=== PATIENT | female | born 1940 | race Caucasian/White ===

== ENCOUNTER 2024-03-09 10:06 | Outpatient (OUT) | payer MEDICARE, SELFPAY ==
--- NOTE | 2024-03-09 10:32 | PM.CN ---
Consult Note: HPI Data of Consult Patient: new to practice Requesting Physician: Symone Bales NP Primary Care Provider: RICHIE RAMOS DO Family Provider: RICHIE RAMOS DO Consult Narrative Reason for consult: establish Narrative: Danielle Palmer a pleasant 83 year old female presents for evaluation and management of chronic low back pain. Reports increased pain started two years ago without injury. Patient reports moderate to severe low back pain with radiating pain into left foot. Pain increased with standing, walking, transitioning. Pain improved with lying and sitting. Has failed to benefit from >6 weeks of PT/HEP, tylenol, heat, ice. failed duloxetine. utilizing baclofen, requip, and tylenol with mild relief. denies falls or injury. cc:: CC: Symone Bales NP Review of Systems ROS Status of ROS 10 or more systems reviewed and unremarkable except as noted in history and below Musculoskeletal Reports: back pain and extremity pain Exam Constitutional Documenting provider has reviewed patient's vital signs: yes Common normals: no apparent distress, oriented x3, healthy appearing, alert and well nourished General appearance: cooperative HENMT Common normals: normocephalic, hearing grossly normal bilaterally and moist oral mucous membranes Head and scalp: normocephalic Eye Common normals: PERRL Pupil: PERRL Neck & C-Spine Common normals: full ROM General: normal visual inspection Chest Common normals: inspection of chest normal Respiratory Common normals: normal respiratory effort, no retractions and no use of accessory muscles Back & Pelvis Lumbar spine/lower back: ROM limited, pain with ROM, lumbar spinal tenderness and straight leg raise positive right Other: multilevel facet mediated pain, positive facet loading. pt limited in ability to extend strength 4/5 in RLE 5/5 in LLE decreased sensation to right L4,5,S1 increased pain upon standing and with walking, significant immediate relief with forward flexion sitting and lying Neuro Common normals: oriented x3, CN's II-XII intact bilaterally, moves all extremities, no focal motor deficits, no sensory deficits noted and deep tendon reflexes 2+ bilaterally Sensorium/orientation: alert Motor exam: no movement abnormalities noted Psych Common normals: mental status grossly normal, thought process normal, cooperative, affect normal, speech normal and activity/motor behavior normal Speech: normal speech Thought process: normal thought process Results Additional Findings Additional findings: If on a controlled substance or opioids, I have checked an [facility] report on this patient and there are no aberrancies noted in the prescribing history.??If on a controlled substance or opioid a drug screen was completed and reviewed within the last year, and if there has not been a drug screen completed we ordered one today to monitor higher risk, state monitored pain medication use. As part of providing excellent, safe, comprehensive care, the following was completed at our patient's visit: 1. A medication reconciliation and review to ensure accurate knowledge of current/active medications, including asking our patients to inform us about any [id number] medications or herbal remedies/nutritional supplements/alternative remedies. 2. A review to specifically ensure our patients have had annual screening for screening for depression, screening for tobacco use, and screening for unhealthy alcohol use. For concerning screenings had a discussion with the patient, provided patient education, and recommended follow-up with primary care provider when appropriate. If patient noted with a risk of falling, they received education on strength, gait, and balance training to prevent future risk of falling. Portions of this note may have been carried over from the previous visit and updated as appropriate. Please note this office utilizes paper charting in addition to the electronic medical record. A list of current medications, vitals, and PMH is available there as the clinical staff outside of myself do not have access to [employer] charting during the clinic day operations. As part of providing quality comprehensive care the current medications, vitals, and PMH were reviewed in the paper chart. Assessment and Plan Assessment and Plan (1) Lumbar stenosis with neurogenic claudication: (2) Lumbar degenerative disc disease: Plan right L4,5 L5,S1 TFESI under fluoroscopy for lumbar stenosis with NC and lumbar DDD continue HEP as tolerated continue current medications through PCP f/u 2 weeks after injection
== END 2024-03-09 10:07 | disposition home or self-care (01) ==
PROVIDERS: Family Provider Internal Medicine; PCP Internal Medicine; Visit Provider Nurse Practitioner
DX: M48.062 Spinal stenosis, lumbar region with neurogenic claudication (principal); M51.369 Other intervertebral disc degeneration, lumbar region without mention of lumbar back pain or lower extremity pain
CPT/HCPCS: G0463

== ENCOUNTER 2024-03-20 09:56 | Day surgery (SDC) | payer MEDICARE, SELFPAY ==
--- OUTSIDE RECORDS SUMMARY | 2024-03-20 10:04 | XMS_ITS | CCD ---
Author Organization [facility] Care Team Providers Care [employer] Name Role Phone Molina Ramos Primary Care Provider [phone] KRISTINA LOMAX Referring Unavailable VALONE, MOLINA L Primary Care Unavailable LISETH, ACOSTA I Admitting Unavailable LISETH, ACOSTA I Attending Unavailable VALONE, MOLINA Winslow Primary Care Unavailable AHMED, MOHAMMED S Consulting Unavailable AHMED, MOHAMMED S Admitting Unavailable AHMED, MOHAMMED S Attending Unavailable ValMolina urias DO Primary Care Provider Molina Ramos DO Primary Care Provider Molina Ramos DO Primary Care Provider [phone] Sujataone Molina FLORES Primary Care Provider VALONE, MOLINA L Primary Care Unavailable VALONE, MOLINA L Referring Unavailable VALONE, MOLINA L Primary Care Unavailable VALONE, MOLINA L Referring Unavailable VALONE, MOLINA L Primary Care Unavailable VALONE, MOLINA L Referring Unavailable VALONE, MOLINA L Primary Care Unavailable VALONE, MOLINA Goldy Referring Unavailable VALONE, MOLINA Goldy Primary Care Unavailable VALONE, MOLINA L Referring Unavailable SHABNAM BAXTER Attending Unavailable VALONE, MOLINA L Primary Care Unavailable VALONE, MOLINA L Primary Care Unavailable AHMALAISSA Castellanos Referring Unavailable VALONE, MOLINA L Primary Care Unavailable VALONE, MOLINA L Referring Unavailable VALONE, MOLINA L Primary Care Unavailable VALONE, MOLINA L Referring Unavailable VALONE, MOLINA L Primary Care Unavailable VALONE, MOLINA L Referring Unavailable VALONE, MOLINA L Primary Care Unavailable VALONE, MOLINA L Referring Unavailable VALONE, MOLINA L Primary Care Unavailable VALONE, MOLINA L Referring Unavailable VALONE, MOLINA L Primary Care Unavailable VALONE, MOLINA L Referring Unavailable VALONE, MOLINA L Primary Care Unavailable VALONE, MOLINA L Referring Unavailable VALONE, MOLINA L Primary Care Unavailable VALONE, OMLINA L Referring Unavailable VALONE, MOLINA L Primary Care Unavailable VALONE, MOLINA L Referring Unavailable VALONE, MOLINA L Primary Care Unavailable VALONE, MOLINA L Referring Unavailable VALONE, MOLINA L Primary Care Unavailable VALONE, MOLINA L Referring Unavailable VALONE, MOLINA L Primary Care Unavailable VALONE, MOLINA L Referring Unavailable VALONE, MOLINA L Primary Care Unavailable VALONE, MOLINA L Referring Unavailable VALONE, MOLINA L Primary Care Unavailable VALONE, MOLINA L Referring Unavailable VALONE, MOLINA L Primary Care Unavailable VALONE, MOLINA L Referring Unavailable VALONE, MOLINA L Primary Care Unavailable AHMAD, ALI F O Referring Unavailable VALONE, MOLINA L Primary Care Unavailable AHMAD, ALI F O Referring Unavailable VALONE, MOLINA L Primary Care Unavailable VALONE, MOLINA L Referring Unavailable VALONE, MOLINA L Primary Care Unavailable VALONE, MOLINA L Referring Unavailable VALONE, MOLINA L Primary Care Unavailable AHMAD, ALI F O Referring Unavailable AHMAD, ALI F O Consulting Unavailable IACVICTOR M KIM Attending Unavailable VICTOR M [place] Admitting Unavailable VALONE, MOLINA L Primary Care Unavailable MARIA INES IGLESIAS Attending Unavailable VALONE, MOLINA L Primary Care Unavailable VALONE, MOLINA L Primary Care Unavailable SHARATH GARCIA Referring Unavailable VALONE, MOLINA L Primary Care Unavailable VALONE, MOLINA L Referring Unavailable Allergies Allergy Classification Reported Allergen(s) Allergy Type Date of Onset Reaction(s) Facility Opioid Agonists (3 sources) Morphine Drug Allergy 06-05-2012 [facility] (20 sources) Morphine Drug Allergy 06-05-2012 [facility] Work Phone: Medications Current Medications Medication Drug Class(es) Dates Sig (Normalized) Sig (Original) amLODIPine 5 mg oral tablet (20 sources) Dihydropyridine Calcium Channel Parminder Start: 04-20-2020 amLODIPine (NORVASC) tablet 5 mg Start: 04-20-2020 take 1 tablet by ivory th once daily amLODIPine (NORVASC) 5 MG tablet Take 1 tablet by mouth daily 30 tablet 3 04/20/2020 Active Start: 04-18-2020 amLODIPine (NO RVASC) tablet 5 mg aspirin 81 mg chewable tablet (20 sources) Platelet Aggregation Inhibitor, Nonsteroidal Anti-inflammatory Drug Start: 10-05-2021 aspirin chewable tablet 81 mg Start: 09-03-2020 take 81 mg by mouth once daily 81 mg, Oral, DAILY, First dose on Wed09/03/20 at 0900 Start: 04-17-2020 aspirin chewab le tablet 324 mg take 1 tablet by mouth once naga y aspirin 81 MG tablet Take 1 tablet by mouth daily Active atorvastatin 40 mg oral tablet (20 sources) HMG-CoA Reductase Inhibitor Start: 04-17-2020 End: 04-18-2020 take 80 mg by mouth once daily 80 mg, Oral, NIGHTLY, First dose on Wed04/17/20 at 2100 Start: 04-17-2020 take 1 tablet by ivory th once daily atorvastatin (LIPITOR) 40 MG tablet Take 1 tablet by mouth daily 30 tablet 3 04/19/2020 Active baclofen 10 mg oral tablet (20 sources) gamma-Aminobutyric Acid-ergic Agonist take 1 tablet by mouth once daily baclofen (LIORESAL) 10 MG tablet Take 1 tablet by mouth nightly Active take 1 tablet by mouth three reno es daily baclofen (LIORESAL) 10 MG tablet Take 10 mg by mouth 3 times daily 0 Active 24 hr buPROPion hydrochloride 300 mg extended release oral tablet (1 source) Aminoketone take 1 tablet by mouth once daily in the morning buPROPion (WELLBUTRIN XL) 300 MG extended release tablet Take 1 tablet by mouth every morning 0 Active busPIRone hydrochloride 15 mg oral tablet (20 sources) Start: 09-02-2020 take 1 tablet by mouth twice daily 15 mg, Oral, 2 TIMES DAILY, First dose on Wed09/02/20 at 2000 This 15 mg tablet can be split into thirds (5 mg) or halves (7.5 mg) based on the ordered dose. take 1 tablet by mouth twice graham ly busPIRone (BUSPAR) 10 MG tablet Take 10 mg by mouth 2 times daily 0 Active calcium carbonate 1500 mg oral tablet (9 sources) take 1 tablet by mouth once daily calcium carbonate 600 MG TABS tablet Take 1 tablet by mouth daily 0 Active 12 hr cetirizine hydrochloride 5 mg / pseudoephedrine hydrochloride 120 mg extended release oral tablet (15 sources) alpha-Adrenergic Agonist, Histamine-1 Receptor Antagonist take 5-120 mg by mouth once cetirizine-psued oephedrine (ZYRTEC-D) 5-120 MG per extended release tablet Take 1 tablet by mouth daily Active DULoxetine 60 mg delayed release oral capsule (1 source) Serotonin and Norepinephrine Reuptake Inhibitor Start: take 1 capsule by mouth once daily DULoxetine (CYMBALTA) 60 MG extended release capsule Take 1 capsule by mouth nightly 0 02/15/2023 Active 0.4 ml enoxaparin sodium 100 mg/ml prefilled syringe (1 source) Low Molecular Weight Heparin Start: inject 40 mg by subcutaneous injection once daily 40 mg, Subcutaneous, DAILY, First dose on Wed04/17/20 at 2100 gabapentin 100 mg oral capsule (10 sources) Anti-epileptic Agent Start: take 100 mg by mouth once daily 100 mg, Oral, NIGHTLY, First dose on Wed09/02/20 at 2100 gabapentin (NEUR ONTIN) 400 MG capsule Take 100 mg by mouth nightly. 0 Active take 1 capsule by mouth once graham ly gabapentin (NEURONTIN) 400 MG capsule Take 400 mg by mouth nightly. 0 Active labetalol hydrochloride 5 mg/ml injectable solution (2 sources) beta-Adrenergic Parminder Start: 09-02-2020 10 mg, Intravenous, EVERY 4 HOURS PRN, High Blood Pressure, Give for SBP >185, Starting on Wed09/02/20 at 1408 Administer 10 mg IV every 10 minutes if SBP is 220 mmHg or greater OR DBP is 120 mmHg or greater. Notify provider if SBP is 220 mmHg or greater OR DBP is 120 mmHg or greater after 3 consecutive doses. Start: 04-17-2020 10 mg, Intrave nous, EVERY 10 MIN PRN, High Blood Pressure, Starting Wed04/17/20 at 2035 Administer 10 mg IV every 10 minutes if SBP is 220 mmHg or greater OR DBP is 120 mmHg or greater. Notify provider if SBP is 220 mmHg or greater OR DBP is 120 mmHg or greater after 3 consecutive doses. losartan potassium 50 mg oral tablet (8 sources) Angiotensin 2 Receptor Parminder Start: 09-02-2020 take 50 mg by mouth twice daily 50 mg, Oral, 2 TIMES DAILY, First dose on Wed09/02/20 at 1430 Start: 04-20-2020 End: 09-04-2020 take 1 tablet by mouth once daily losartan (COZAAR) 25 MG tablet Take 1 tablet by mouth daily 30 tablet 3 04/20/2020 09/04/2020 Discontinued (Stop Taking at Discharge) Start: 04-20-2020 take 1 tablet by ivory once daily losartan (COZAAR) 25 MG tablet Take 1 tablet by mouth daily 30 tablet 3 04/20/2020 Active Start: 04-19-2020 losartan (COZA AR) tablet 25 mg melatonin 3 mg oral tablet (12 sources) take 1 tablet by mouth once daily melatonin 3 MG TABS tablet Take 3 mg by mouth daily 0 Active metFORMIN hydrochloride 500 mg oral tablet (20 sources) Biguanide take 1 tablet by mouth once daily metFORMIN (GLUCOPHAGE) 500 MG tablet Take 1 tablet by mouth nightly Active montelukast 10 mg oral tablet (20 sources) Leukotriene Receptor Antagonist Start: take 1 tablet by mouth once daily at bedtime montelukast (SINGULAIR) 10 MG tablet Take 1 tablet by mouth nightly at bedtime 03/23/2023 Active take 1 tablet by ivory th once daily montelukast (SINGULAIR) 10 MG tablet Take 10 mg by mouth nightly 0 Active End: 05-08-2020 Montelukast Sodium (SINGULAI R PO) Take by mouth 0 05/08/2020 Discontinued (Therapy completed) Montelukast Sodi um (SINGULAIR PO) Take by mouth 0 Active Multiple Vitamin (MULTI-VITAMIN DAILY PO) (1 source) Multiple Vitamin (MULTI-VITAMIN DAILY PO) Take by mouth 0 Active Multiple Vitamins-Minerals (EYE VITAMINS PO) (6 sources) take 1 capsule by mouth once daily Multiple Vitamins-Minerals (EYE VITAMINS PO) Take 1 capsule by mouth nightly 0 Active NONFORMULARY (16 sources) NONFORMULARY All red Eye Vitamin daily Active NONFORMULARY All red Eye Vitamin daily 0 Active ondansetron (ZOFRAN-ODT) disintegrating tablet 4 mg (1 source) Start: 09-02-2020 ondansetron (Z OFRAN-ODT) disintegrating tablet 4 mg polyethylene glycol [id number] mg powder for oral solution (2 sources) Osmotic Laxative Start: 09-02-2020 17 g, Oral, D AILY PRN, Constipation, Starting on Wed09/02/20 at 1408 First line therapy for constipation Start: 04-17-2020 17 g, Oral, DA DEBBIE PRN, Constipation, Starting Wed04/17/20 at 2035 First line therapy for constipation 1 ml promethazine hydrochloride 25 mg/ml injection (20 sources) Phenothiazine Start: 09-02-2020 promethazine ( PHENERGAN) injection 12.5 mg Start: 06-02-2020 End: 06-02-2020 promethazine (PHENERGAN) inj ection 12.5 mg Start: 06-02-2020 take 0.5-1 tablets b y mouth three times daily as needed for nausea promethazine (PHENERGAN) 25 MG tablet Half to 1 pill by mouth 3 times daily as needed nausea/vomiting 21 tablet 0 06/02/2020 Active Start: 04-17-2020 promethazine ( PHENERGAN) tablet 12.5 mg rOPINIRole 0.5 mg oral tablet (15 sources) Nonergot Dopamine Agonist take 1 tablet by mouth once daily rOPINIRole (REQUIP) 0.5 MG tablet Take 1 tablet by mouth daily Active spironolactone 25 mg oral tablet (15 sources) Aldosterone Antagonist Start: 08-13-19 take 2 tablets by mouth once daily spironolactone (ALDACTONE) 25 MG tablet Take 2 tablets by mouth daily 08/13/2023 Active vitamin b12 0.5 mg oral tablet (14 sources) Vitamin B12 Cyanocobalamin (VITAMIN B 12) 500 MCG TABS Take by mouth 0 Active End: 05-08-2020 Cyanocobalamin (VITAMIN B-12 PO) Take by mouth 0 05/08/2020 Discontinued (Therapy completed) Cyanocobalamin ( VITAMIN B-12 PO) Take by mouth 0 Active vitamin e d-alpha 400 unt oral capsule (20 sources) take 1 capsule by mo ut once daily vitamin E 400 UNIT capsule Take 400 Units by mouth daily 0 Active Completed/Discontinued Medications Medication Drug Class(es) Dates Sig (Normalized) Sig (Original) acetaminophen 500 mg oral tablet (4 sources) Start: 09-04-2020 End: 09-04-2020 acetaminophen (TYLENOL) tablet 1,000 mg Start: 09-03-2020 End: 09-03-2020 acetaminophen (TYLENOL) tabl et 1,000 mg Start: 09-02-2020 End: 09-02-2020 acetaminophen (TYLENOL) tabl et 325 mg Start: 04-17-2020 acetaminophen (TYLENOL) tablet 650 mg acetaminophen 325 mg / HYDROcodone bitartrate 5 mg oral tablet (2 sources) Opioid Agonist Start: 01-21-2024 End: 01-21-2024 take 1 tablet by mouth every twenty-four hours 2 tablet, Oral, ONCE, 1 dose, On Wed01/21/24 at 1545, Maximum dose of acetaminophen is 4000 mg from all sources in 24 hours. Start: 01-21-2024 End: 01-24-2024 HYDROcodone-acetaminophen (N ORCO) 5-325 MG per tablet Indications: Strain of lumbar region, initial encounter Take 1 tablet by mouth every 6 hours as needed for Pain for up to 3 days. Intended supply: 3 days. Take lowest dose possible to manage pain Max Daily Amount: 4 tablets 12 tablet 01/21/2024 01/24/2024 Active Budesonide (2 sources) Corticosteroid End: 05-08-2020 Budesonide (PULMICORT IN) In lopez into the lungs 0 05/08/2020 Discontinued (Therapy completed) Budesonide (PULM ICORT IN) Inhale into the lungs 0 Active ceFAZolin 1000 mg injection (1 source) Cephalosporin Antibacterial Start: 09-02-2020 End: 09-02-2020 ceFAZolin (ANCEF) 1000 mg in dextrose 5 % 50 mL IVPB (premix) clopidogrel 75 mg oral tablet (10 sources) P2Y12 Platelet Inhibitor Start: 09-02-2020 End: 09-02-2020 clopidogrel (PLAVIX) tablet 150 mg Start: 04-17-2020 clopidogrel (P LAVIX) tablet 300 mg Start: 04-17-2020 End: 09-04-2020 take 1 tablet by mouth once daily clopidogrel (PLAVIX) 75 MG tablet Take 1 tablet by mouth daily For 28 days. 28 tablet 0 04/17/2020 09/04/2020 Discontinued (Stop Taking at Discharge) 2 ml fentaNYL 0.05 mg/ml injection (1 source) Opioid Agonist Start: 09-02-2020 End: 09-02-2020 fentaNYL (SUBLIMAZE) injection 1000 ml glucose 500 mg/ml injection (1 source) Start: 04-17-2020 End: 04-17-2020 dextrose 50 % IV solution Start: 04-17-2020 End: 04-17-2020 dextrose 50 % IV solution 1 ml heparin sodium, porcine 5000 unt/ml prefilled syringe (1 source) Unfractionated Heparin, Anti-coagulant Start: 09-02-2020 End: 07-26-2021 heparin (porcine) injection iodixanol (VISIPAQUE) injection 64 mL (1 source) Start: 09-02-2020 End: 09-02-2020 iodixanol (VISIPAQUE) injection 64 mL iopamidol (ISOVUE-370) 76 % injection 75 mL (2 sources) Start: 10-05-2021 End: 10-05-2021 iopamidol (ISOVUE-370) 76 % injection 75 mL Start: 04-17-2020 End: 04-17-2020 iopamidol (ISOVUE-370) 76 % injection 75 mL iopamidol (ISOVUE-370) 76 % injection 90 mL (1 source) Start: 09-02-2020 End: 09-02-2020 iopamidol (ISOVUE-370) 76 % injection 90 mL lactulose 667 mg/ml oral solution (20 sources) Osmotic Laxative Start: 09-02-2020 End: 09-03-2020 10 g, Oral, 2 TIMES DAILY, First dose on Wed09/02/20 at 1500 take 1 dose by mouth twice daily lactulose (CEPHULAC) 10 g packet Take 1 packet by mouth 2 times daily Active 100 ml levETIRAcetam 10 mg/ml injection (1 source) Start: 09-02-2020 End: 09-02-2020 levETIRAcetam (KEPPRA) 1000 mg/100 mL IVPB lysine 1000 mg oral tablet (2 sources) End: 05-08-2020 take 1 tablet by mouth once daily L-Lysine 1000 MG TABS Take 1,000 mg by mouth daily 0 05/08/2020 Discontinued (Therapy completed) 2 ml midazolam 1 mg/ml injection (1 source) Benzodiazepine Start: 09-02-2020 End: 09-02-2020 midazolam PF (VERSED) injection Misc Natural Products (OSTEO BI-FLEX/5-LOXIN ADVANCED PO) (3 sources) End: 06-02-2020 take 1 tablet by mouth once daily Misc Natural Products (OSTEO BI-FLEX/5-LOXIN ADVANCED PO) Take 1 tablet by mouth daily 0 06/02/2020 Discontinued (LIST CLEANUP) take 1 tablet by mouth once naga y Misc Natural Products (OSTEO BI-FLEX/5-LOXIN ADVANCED PO) Take 1 tablet by mouth daily 0 Active Misc Natural Pro ducts (OSTEO BI-FLEX/5-LOXIN ADVANCED PO) Take by mouth 0 Active nitrofurantoin, macrocrystals 25 mg / nitrofurantoin, monohydrate 75 mg oral capsule (3 sources) Nitrofuran Antibacterial Start: 10-05-2021 End: 10-12-2021 nitrofurantoin (macrocrystal-monohydrate) (MACROBID) capsule 100 mg 2 ml ondansetron 2 mg/ml injection (2 sources) Serotonin-3 Receptor Antagonist Start: 09-02-2020 End: 09-02-2020 ondansetron (ZOFRAN) injecti on Start: 06-02-2020 End: 06-02-2020 ondansetron (ZOFRAN) injecti on 4 mg potassium chloride 8 meq oral tablet (3 sources) End: 06-02-2020 potassium chloride (KLOR-CON) 8 MEQ extended release tablet Take 99 mEq by mouth daily 0 06/02/2020 Discontinued (LIST CLEANUP) potassium,chelated 95 mg oral tablet (2 sources) End: 05-08-2020 take 1 tablet by mouth once daily Potassium 95 MG TABS Take 1 tablet by mouth daily 0 05/08/2020 Discontinued (Therapy completed) 50 ml sodium chloride 9 mg/ml injection (11 sources) Start: 09-03-2020 End: 09-04-2020 0.9 % sodium chloride bolus Start: 09-02-2020 sodium chlorid e flush 0.9 % injection 5-40 mL Start: 09-02-2020 End: 09-03-2020 take 1 dose intravenously twice daily 5-40 mL, Intravenous, EVERY 12 HOURS SCHEDULED (2 times per day), First dose on Wed09/02/20 at 2100 For Line Patency: Peripheral IV = 5 mL; Midline or Central Line = 10 mL/lumen. If following IV push medication, administer flush at same rate as the IV push. Flush volume is determined by type of infusion therapy being given. For non-viscous solutions use: Peripheral IV = 5 mL Midline or Central Line = 10 mL/lumen For viscous solutions (i.e. blood components, parenteral nutrition, contrast media, or after obtaining blood sample) use: Peripheral IV = 10 mL Midline or Central Line = 20 mL/lumen Start: 09-02-2020 take 5-40 mL intrave nously once as needed 5-40 mL, Intravenous, PRN, Line Care, After every IV line use, Starting on Wed09/02/20 at 1408 For Line Patency: Peripheral IV = 5 mL; Midline or Central Line = 10 mL/lumen. If following IV push medication, administer flush at same rate as the IV push. Flush volume is determined by type of infusion therapy being given. For non-viscous solutions use: Peripheral IV = 5 mL Midline or Central Line = 10 mL/lumen For viscous solutions (i.e. blood components, parenteral nutrition, contrast media, or after obtaining blood sample) use: Peripheral IV = 10 mL Midline or Central Line = 20 mL/lumen Start: 09-02-2020 take 25 mL intraveno usly every hour as needed 25 mL, Intravenous, at 100 mL/hr, PRN, If patient receiving piggyback infusions without ordered maintenance IV fluids or with frequent/long duration piggyback infusions, Starting on Wed09/02/20 at 1408 Administer at the same rate as the piggyback being infused. Start: 09-02-2020 End: 09-02-2020 0.9 % sodium chloride infusi on Start: 06-02-2020 End: 06-02-2020 0.9 % sodium chloride bolus Start: 04-17-2020 10 mL, Intrave nous, EVERY 12 HOURS SCHEDULED (2 times per day), First dose on Wed04/17/20 at 2100 Start: 04-17-2020 take 10 mL intraveno us route once as needed 10 mL, Intravenous, PRN, Line Care, After every IV line use, Starting Wed04/17/20 at 2035 topiramate 25 mg oral tablet (1 source) End: 04-17-2020 take 1 tablet by mouth twice daily topiramate (TOPAMAX) 25 MG tablet Take 25 mg by mouth 2 times daily 0 04/17/2020 Discontinued (LIST CLEANUP) Problems Active Problems Problem Classification Problem Date Documented Date Episodic/Chronic Cardiac dysrhythmias (16 sources) Paroxysmal supraventricular tachycardia; Translations: [PSVT (paroxysmal supraventricular tachycardia)] Onset: 04-04-2023 04-04-2023 Chronic Congestive heart failure; nonhypertensive (4 sources) Unspecified combined systolic (congestive) and diastolic (congestive) heart failure; Translations: [Chronic combined systolic (congestive) and diastolic (congestive) heart failure] Onset: 06-03-2023 Chronic Coronary atherosclerosis and other heart disease (17 sources) Angina, class IV; Translations: [Angina pectoris, unspecified] Onset: 04-04-2023 04-04-2023 Chronic Diabetes mellitus without complication (16 sources) Type 2 diabetes mellitus; Translations: [Type 2 diabetes mellitus without complications] Onset: 04-04-2023 04-04-2023 Chronic Disorders of lipid metabolism (2 sources) Mixed hyperlipidemia; Translations: [Mixed hyperlipidemia] Onset: 05-06-2023 Chronic Essential hypertension (20 sources) Essential hypertension; Translations: [Hypertensive disorder] Onset: 04-04-2023 04-04-2023 Chronic Fluid and electrolyte disorders (1 source) Dehydration; Translations: [Dehydration] Episodic Headache; including migraine (1 source) Headache disorder; Translations: [Other complicated headache syndrome] Episodic Nausea and vomiting (1 source) Nausea, vomiting and diarrhea; Translations: [Nausea with vomiting, unspecified] Episodic Other and ill-defined cerebrovascular disease (5 sources) Cerebral aneurysm, nonruptured; Translations: [Aneurysm of anterior communicating artery] Onset: 09-16-2020 04-20-2020 Chronic Other and ill-defined cerebrovascular disease (20 sources) Intracranial aneurysm; Translations: [Cerebral aneurysm, nonruptured] Chronic Other bone disease and musculoskeletal deformities (1 source) Somatic dysfunction of lumbar region; Translations: [Segmental and somatic dysfunction of lumbar region] 02-16-2024 Episodic Other bone disease and musculoskeletal deformities (1 source) Segmental and somatic dysfunction of lumbar region; Translations: [Segmental and somatic dysfunction of lumbar region] Onset: 02-16-2024 Episodic Other circulatory disease (1 source) Elevated blood pressure; Translations: [Elevated blood-pressure reading, without diagnosis of hypertension] Episodic Other connective tissue disease (1 source) Swelling of left lower limb; Translations: [Other specified soft tissue disorders] Episodic Other nervous system disorders (20 sources) Disorder of brain; Translations: [Encephalopathy, unspecified] 09-05-2020 Chronic Other nervous system disorders (1 source) Encephalopathy, unspecified; Translations: [Encephalopathy, unspecified] Onset: 09-05-2020 Chronic Other nervous system disorders (1 source) Dysarthria; Translations: [Dysarthria and anarthria] Episodic Residual codes; unclassified (20 sources) Medication given; Translations: [Status post administration of tPA (rtPA) in a different facility within the last 24 hours prior to admission to current facility] Chronic Residual codes; unclassified (1 source) Status post administration of tPA (rtPA) in a different facility within the last 24 hours prior to admission to current facility; Translations: [Status post administration of tPA (rtPA) in a different facility within the last 24 hours prior to admission to current facility] Onset: 09-02-2020 Chronic Residual codes; unclassified (20 sources) Altered mental status; Translations: [Altered mental status, unspecified] Episodic Residual codes; unclassified (2 sources) Pain; Translations: [Pain, unspecified] Episodic Residual codes; unclassified (2 sources) Swelling; Translations: [Edema, unspecified] Episodic Spondylosis; intervertebral disc disorders; other back problems (4 sources) Lumbar radiculopathy; Translations: [Radiculopathy, lumbar region] Onset: 12-20-2023 02-16-2024 Episodic Sprains and strains (2 sources) Low back strain; Translations: [Strain of muscle, fascia and tendon of lower back, initial encounter] Onset: 01-21-2024 01-21-2024 Episodic Transient cerebral ischemia (20 sources) Transient cerebral ischemia; Translations: [Transient cerebral ischemic attack, unspecified] Onset: 04-17-2020 04-17-2020 Chronic Unclassified (1 source) Supraventricular tachycardia, unspecified; Translations: [Supraventricular tachycardia, unspecified] Onset: 04-04-2023 Urinary tract infections (1 source) Acute cystitis; Translations: [Acute cystitis without hematuria] Episodic Past or Other Problems Problem Classification Problem Date Documented Da te Episodic/Chronic Cataract (20 sources) Age-related nuclear cataract of right eye; Translations: [Age-related nuclear cataract, right eye] Onset: 12-20-2017 Resolved: 12-20-2017 12-20-2017 Chronic Cataract (2 sources) Age-related nuclear cataract of right eye; Translations: [Age-related nuclear cataract of right eye] Onset: 12-20-2017 Resolved: 12-20-2017 12-20-2017 Conditions associated with dizziness or vertigo (2 sources) Dizziness and giddiness; Translations: [Dizziness and giddiness] Onset: 05-06-2023 Episodic Diabetes mellitus without complication (2 sources) Other abnormal glucose; Translations: [Other abnormal glucose] Onset: 10-22-2023 Episodic Nonspecific chest pain (17 sources) Chest wall pain; Translations: [Other chest pain] Onset: 04-04-2023 04-04-2023 Episodic Other aftercare (2 sources) Other continuous churn buttermaker (current) drug therapy; Translations: [Other fpc (current) drug therapy] Onset: 10-22-2023 Episodic Other circulatory disease (16 sources) History of transient ischemic attack; Translations: [Personal history of transient ischemic attack (TIA), and cerebral infarction without residual deficits] Onset: 04-04-2023 04-04-2023 Episodic Other circulatory disease (1 source) Personal history of transient ischemic attack (TIA), and cerebral infarction without residual deficits; Translations: [Personal history of transient ischemic attack (TIA), and cerebral infarction without residual deficits] Onset: 04-04-2023 Episodic Other connective tissue disease (20 sources) Neurological symptom; Translations: [Unspecified symptoms and signs involving the nervous system] Onset: 09-02-2020 Episodic Other connective tissue disease (2 sources) Myalgia, unspecified site; Translations: [Myalgia, unspecified site] Onset: 10-22-2023 Episodic Other connective tissue disease (1 source) Other specified soft tissue disorders; Translations: [Other specified soft tissue disorders] Onset: 05-14-2023 Episodic Other connective tissue disease (1 source) Unspecified symptoms and signs involving the nervous system; Translations: [Unspecified symptoms and signs involving the nervous system] Onset: 09-02-2020 Episodic Other nervous system disorders (2 sources) Other abnormalities of gait and mobility; Translations: [Other abnormalities of gait and mobility] Onset: 05-06-2023 Episodic Other screening for suspected conditions (not mental disorders or infectious disease) (2 sources) Patient encounter status; Translations: [Encounter for screening mammogram for malignant neoplasm of breast] Onset: 06-09-2023 Episodic Phlebitis; thrombophlebitis and thromboembolism (2 sources) Personal history of other venous thrombosis and embolism; Translations: [Personal history of other venous thrombosis and embolism] Onset: 10-22-2023 Episodic Residual codes; unclassified (2 sources) Edema, unspecified; Translations: [Edema, unspecified] Onset: 10-22-2023 Episodic Residual codes; unclassified (2 sources) Personal history of other specified conditions; Translations: [Personal history of other specified conditions] Onset: 05-06-2023 Episodic Unclassified (20 sources) Onset: 01-26-2018 Resolved: 03-03-2021 01-26-2018 Results Test Name Value Interpretation Reference Range Facility CT LUMBAR SPINE WO CONTRASTo n 02-17-2024 CT LUMBAR SPINE WO CONTRAST EXAMINATION: CT OF THE LUMBAR SPINE WITHOUT CONTRAST 02/16/2024 TECHNIQUE: CT of the lumbar spine was performed without the administration of intravenous contrast. Multiplanar reformatted images are provided for review. Adjustment of mA and/or kV according to patient size was utilized. Automated exposure control, iterative reconstruction, and/or weight based adjustment of the mA/kV was utilized to reduce the radiation dose to as low as reasonably achievable. COMPARISON: L-spine series 01/21/2024 HISTORY: ORDERING SYSTEM PROVIDED HISTORY: Somatic dysfunction of lumbar region FINDINGS: Vertebrae: Diffuse osteopenia. L5 superior endplate fracture with 20% height loss, mildly progressed since radiographs 01/21/2024. Alignment: No significant listhesis. Disc levels: Disc height loss at T12-L1 and L1-L2 with vacuum disc phenomenon.. Multilevel facet arthrosis most pronounced at L4-L5 and L5-S1. No significant osseous neuroforaminal stenosis. Imaged abdomen/pelvis: Unremarkable. IMPRESSION: 1. Interval mild progression of L5 superior endplate fracture with 20% height loss. 2. Multilevel lumbar spondylosis. Interpreted by: Holden Simon MD Signed by: Holden Simon MD 02/17/24 Final result Normal [facility] CT Lumbar spine WO contrasto n 02-17-2024 EXAMINATION: CT OF THE LUMBAR SPINE WITHOUT CONTRAST 02/16/2024 TECHNIQUE: CT of the lumbar spine was performed without the administration of intravenous contrast. Multiplanar reformatted images are provided for review. Adjustment of mA and/or kV according to patient size was utilized. Automated exposure control, iterative reconstruction, and/or weight based adjustment of the mA/kV was utilized to reduce the radiation dose to as low as reasonably achievable. COMPARISON: L-spine series 01/21/2024 HISTORY: ORDERING SYSTEM PROVIDED HISTORY: Somatic dysfunction of lumbar region FINDINGS: Vertebrae: Diffuse osteopenia. L5 superior endplate fracture with 20% height loss, mildly progressed since radiographs 01/21/2024. Alignment: No significant listhesis. Disc levels: Disc height loss at T12-L1 and L1-L2 with vacuum disc phenomenon.. Multilevel facet arthrosis most pronounced at L4-L5 and L5-S1. No significant osseous neuroforaminal stenosis. Imaged abdomen/pelvis: Unremarkable. [facility] Holden Mathis MD - 02/17/2024 EXAMINATION: CT OF THE LUMBAR SPINE WITHOUT CONTRAST 02/16/2024 TECHNIQUE: CT of the lumbar spine was performed without the administration of intravenous contrast. Multiplanar reformatted images are provided for review. Adjustment of mA and/or kV according to patient size was utilized. Automated exposure control, iterative reconstruction, and/or weight based adjustment of the mA/kV was utilized to reduce the radiation dose to as low as reasonably achievable. COMPARISON: L-spine series 01/21/2024 HISTORY: ORDERING SYSTEM PROVIDED HISTORY: Somatic dysfunction of lumbar region FINDINGS: Vertebrae: Diffuse osteopenia. L5 superior endplate fracture with 20% height loss, mildly progressed since radiographs 01/21/2024. Alignment: No significant listhesis. Disc levels: Disc height loss at T12-L1 and L1-L2 with vacuum disc phenomenon.. Multilevel facet arthrosis most pronounced at L4-L5 and L5-S1. No significant osseous neuroforaminal stenosis. Imaged abdomen/pelvis: Unremarkable. IMPRESSION: 1. Interval mild progression of L5 superior endplate fracture with 20% height loss. 2. Multilevel lumbar spondylosis. [facility] CT Lumbar spine WO contrastO rdered By: Holden Simon on 02-17-[address] [facility] [address] Lumbar spine WO contrasto n 02-16-2024 Radiology Study observation (narrative) [facility] Microscopic Urinalysison Bacteria LM Ql (Urine sed) TRACE Abnormal None [facility] Epithelial cells LM.HPF (Urine sed) [#/Area] 2 TO 5 [facility] Interpretation and review of laboratory results Abnormal [facility] RBC LM.HPF (Urine sed) [#/Area] 0 TO 2 [facility] WBC LM.HPF (Urine sed) [#/Area] 2 TO 5 [facility] UA w/Reflex Cultureon 2023 Bilirubin, SemiQt,Ur Negative Normal NEG [facility] Comment on above: Performed By: #### U AX, UMICAO #### [facility] [address] [place] [address] Dr[place] [id number] Cotton Feeder: Sharath Dennis MD Blood, Urine Negative Normal NEG [facility] Comment on above: Performed By: #### U AX, UMICAO #### [address] [place] [id number] Cotton Feeder: Sharath Dennis MD Clarity (U) Clear Normal CLEAR [facility] Comment on above: Performed By: #### U AX, UMICAO #### [address] [place] [id number] Cotton Feeder: Sharath Dennis MD Color (U) Yellow Normal YEL [facility] Comment on above: Performed By: #### U AX, UMICAO #### [facility] [address] [place], [facility] Cotton Feeder: Sharath Dennis MD Glucose Ql (U) Negative Normal NEG [facility] Comment on above: Performed By: #### U AX, UMICAO #### [facility] [address] [place] [id number] Cotton Feeder: Sharath Dennis MD Ketones Ql (U) Negative Normal NEG [facility] Comment on above: Performed By: #### U AX, UMICAO #### [facility] [address] [place] [address] Dr. [place], [place] [id number] Cotton Feeder: Sharath Dennis MD Leukocyte esterase Test strip Ql (U) SMALL Abnormal NEG [facility] Comment on above: Performed By: #### U AX, UMICAO #### [facility] [address] [place] [address] Dr. [place], [place] [id number] Cotton Feeder: Sharath Dennis MD Nitrite,Ur Negative Normal NEG [facility] Comment on above: Performed By: #### U AX, UMICAO #### [facility] [address] [place] [address] Dr. [place], [place] [id number] Cotton Feeder: Sharath Dennis MD PH,Ur 6.0 Normal 5.0-9.0 [facility] Comment on above: Performed By: #### U AX UMICAO #### [address] [place], [place] [id number] Cotton Feeder: Sharath Dennis MD Protein Ql (U) Negative Normal NEG [facility] Comment on above: Performed By: #### U AX, UMICAO #### [address] [place], [place] [id number] Cotton Feeder: Sharath Dennis MD Spec. [place],Ur 1.015 Normal 1.010-1.[address] [facility] Comment on above: Performed By: #### U AX UMICAO #### [facility] [address] [place] [address] [place] [address] Cotton Feeder: Sharath Dennis MD Urobilinogen,Ur Normal Normal 0.0-1.0 [facility] Comment on above: Performed By: #### U AX, UMICAO #### [address] [place], [place] [id number] Cotton Feeder: Sharath Dennis MD Urinalysis with Reflex to Cu ltureon 01-21-2024 Bilirubin Ql (U) Negative NEGATIVE [facility] Clarity (U) Clear Clear [facility] Color (U) Yellow Yellow [facility] Glucose Test strip (U) [Mass/Vol] Negative NEGATIVE mg/dL [facility] Hemoglobin Auto test strip Ql (U) Negative NEGATIVE [facility] Interpretation and review of laboratory results Abnormal [facility] Ketones (U) [Mass/Vol] Negative NEGAT MAJOR mg/dL [facility] Leukocyte esterase Test strip Ql (U) SMALL Abnormal NEGATIVE [facility] Nitrite Ql (U) Negative NEGATIVE [facility] pH (U) 6.0 [pH] 5.0 - 9.0 [facility] Protein (U) [Mass/Vol] Negative NEGAT MAJOR mg/dL [facility] Specific gravity (U) [Rel density] 1.015 1.010 - 1.020 [facility] Urobilinogen Qn (U) Normal 0.0 - 1. 0 EU/dL [facility] Urinalysis,Microon 4 Bacteria TRACE Abnormal NONE [facility] Comment on above: Performed By: #### U SHELBI BAPTISTE #### [facility] [address] [place] [address] Cotton Feeder: Sharath Dennis MD Epithelial cells LM Ql (Urine sed) 2 TO 5 Normal 0-25 [facility] Comment on above: Performed By: #### U SHELBI BAPTISTE #### [facility] [address] [place] [address] Cotton Feeder: Sharath Dennis MD Urine RBC's 0 TO 2 Normal 0-2 [facility] Comment on above: Performed By: #### U AXKATIEO #### [facility] [address] [place] [address] Cotton Feeder: Sharath Dennis MD Urine WBC's 2 TO 5 Normal 0-5 [facility] Comment on above: Performed By: #### U AX UMICAO #### [facility] [address] [place] [address] Cotton Feeder: Sharath Dennis MD XR LUMBAR SPINE (2-3 VIEWS)o n 01-21-2024 XR LUMBAR SPINE (2-3 VIEWS) EXAMINATION: 3 XRAY VIEWS OF THE LUMBAR SPINE 01/21/2024 3:56 pm COMPARISON: None. HISTORY: ORDERING SYSTEM PROVIDED HISTORY: Back pain TECHNOLOGIST PROVIDED HISTORY: Back pain FINDINGS: The vertebral body heights are maintained. There is multilevel degenerative disc disease. There is multilevel degenerative facet hypertrophy. There is no spondylolisthesis. The visualized bony pelvis is intact. There is degenerative change of the SI joints. The surrounding soft tissues are unremarkable. IMPRESSION: Multilevel degenerative change without acute abnormality of the lumbar spine. Interpreted by: Kel Hennessy MD Signed by: Kel Hennessy MD 01/21/24 Final result Normal [facility] XR Lumbar spine 2 or 3 Views on 01-21-2024 Multilevel degenerative change without acute abnormality of the lumbar spine. [facility] EXAMINATION: 3 XRAY VIEWS OF THE LUMBAR SPINE 01/21/2024 3:56 pm COMPARISON: None. HISTORY: ORDERING SYSTEM PROVIDED HISTORY: Back pain TECHNOLOGIST PROVIDED HISTORY: Back pain FINDINGS: The vertebral body heights are maintained. There is multilevel degenerative disc disease. There is multilevel degenerative facet hypertrophy. There is no spondylolisthesis. The visualized bony pelvis is intact. There is degenerative change of the SI joints. The surrounding soft tissues are unremarkable. [facility] Kel Hennessy MD - 01/21/2024 EXAMINATION: 3 XRAY VIEWS OF THE LUMBAR SPINE 01/21/2024 3:56 pm COMPARISON: None. HISTORY: ORDERING SYSTEM PROVIDED HISTORY: Back pain TECHNOLOGIST PROVIDED HISTORY: Back pain FINDINGS: The vertebral body heights are maintained. There is multilevel degenerative disc disease. There is multilevel degenerative facet hypertrophy. There is no spondylolisthesis. The visualized bony pelvis is intact. There is degenerative change of the SI joints. The surrounding soft tissues are unremarkable. IMPRESSION: Multilevel degenerative change without acute abnormality of the lumbar spine. [facility] Radiology Study observation (narrative) [facility] XR Lumbar spine 2 or 3 Views Ordered By: Kel Hennessy on 01-21-2024 [facility] Work Phone: Hemoglobin A1Con 10-23-2023 Glucose [Mass/Vol] 123 mg/dL Normal [facility] Comment on above: Result Comment: The ADA and AACC recommend providing the estimated average glucose result to permit better patient understanding of their HBA1c result. Performed By: #### C DANISH CP, TROPI #### [facility] [address] [place] [address] Cotton Feeder: Sharath Dennis MD HbA1c (Bld) [Mass fraction] 5.9 % Normal 4.0-6.0 [facility] Comment on above: Performed By: #### C YUE PENG, TROPI #### [facility] [address] [place] [address] Cotton Feeder: Sharath Dennis MD Lipid Profileon 10-23-2023 Cholesterol [Mass/Vol] 146 mg/dL Normal 0-199 [facility] Comment on above: Result Comment: Cholesterol Guidelines: <200 Desirable 200-240 Borderline >240 Undesirable Performed By: #### C YUE PENG, TROPI #### [facility] [address] [place] [address] Cotton Feeder: Sharath Dennis MD Cholesterol in HDL [Mass/Vol] 87 mg/dL Normal >40 [facility] Comment on above: Result Comment: HDL Guidelines: <40 Undesirable 40-59 Borderline >59 Desirable Performed By: #### C DANISH CP, TROPI #### [facility] [address] [place] [address] Cotton Feeder: Sharath Dennis MD Cholesterol in LDL [Mass/Vol] 50 mg/dL Normal 0-100 [facility] Comment on above: Result Comment: LDL Guidelines: <100 Desirable 100-129 Near to/above Desirable 130-159 Borderline >159 Undesirable Direct (measured) LDL and calculated LDL are not interchangeable tests. Performed By: #### C DP CP, TROPI #### [facility] [address] [place] [address] Cotton Feeder: Sharath Dennis MD Cholesterol in VLDL [Mass/Vol] 9 mg/dL Normal [facility] Comment on above: Performed By: #### C YUE PENG, TROPI #### [facility] [address] [place] [address] [place] [address] Cotton Feeder: Sharath Dennis MD Cholesterol.total/Chol esterol in HDL [Mass ratio] 2.0 {ratio} Normal [facility] Comment on above: Performed By: #### C YUE PEGN, TROPI #### [facility] [address] [place] [address] Cotton Feeder: Sharath Dennis MD Triglyceride [Mass/Vol] 45 mg/dL Normal <150 [facility] Comment on above: Result Comment: Triglyceride Guidelines: <150 Desirable 150-199 Borderline 200-499 High >499 Very high Based on AHA Guidelines for fasting triglyceride, November 2011. Performed By: #### C YUE PENG, TROPI #### [address] [place] [address] Cotton Feeder: Sharath Dennis MD BUN (Urea N)on 10-22-2023 Urea nitrogen [Mass/Vol] 29 mg/dL High 8-23 [facility] Comment on above: Performed By: #### B UN, LIVP, CREG, BNP, CBC, TSH, LYTE, DIME #### [address] [place] [address] Cotton Feeder: Sharath Dennis MD #### LIPR, GLYHGB #### [address] [address] Cotton Feeder: Wellington Back MD Brain Natri. Peptideon 10-21 Natriuretic peptide B (Bld) [Mass/Vol] 422 pg/mL Normal 0-450 [facility] Comment on above: Performed By: #### B UN, LIVP, CREG, BNP, CBC, TSH, LYTE, DIME #### [address] [place] [address] Cotton Feeder: Sharath Dennis MD #### LIPR, GLYHGB #### [address] [id number] Cotton Feeder: Wellington Back MD CBCon 10-22-2023 Erythrocyte distribution width (RBC) [Ratio] 13.8 % Normal 11.8-14.4 [facility] Comment on above: Performed By: #### B UN, LIVP, CREG, BNP, CBC, TSH, LYTE, DIME #### [address] [place] [address] Cotton Feeder: Sharath Dennis MD #### LIPR, GLYHGB #### [address] [id number] Cotton Feeder: Wellington Back MD Hematocrit (Bld) [Volume fraction] 36.4 % Normal 36.3-47.1 [facility] Comment on above: Performed By: #### B UN, LIVP, CREG, BNP, CBC, TSH, LYTE, DIME #### [address] [place] [address] Cotton Feeder: Sharath Dennis MD #### LAYLA, GLYHGB #### [address] [id number] Cotton Feeder: Wellington Back MD Hemoglobin (Bld) [Mass/Vol] 11.6 g/dL Low 11.9-15.1 [facility] Comment on above: Performed By: #### B UN, LIVP, CREG, BNP, CBC, TSH, LYTE, DIME #### [address] [place] [address] Cotton Feeder: Sharath Dennis MD #### LIPR, GLYHGB #### [address] [id number] Cotton Feeder: Wellington Back MD MCH (RBC) [Entitic mass] 29.6 pg Normal 25.2-33.5 [facility] Comment on above: Performed By: #### B UN, LIVP, CREG, BNP, CBC, TSH, LYTE, DIME #### [address] [place] [address] Cotton Feeder: Sharath Dennis MD #### LIPR, GLYHGB #### [address] [id number] Cotton Feeder: Wellington Back MD MCHC (RBC) [Mass/Vol] 31.9 g/dL Normal 28.4-34.8 [facility] Comment on above: Performed By: #### B UN, LIVP, CREG, BNP, CBC, TSH, LYTE, DIME #### [address] [place] [id number] Cotton Feeder: Sharath Dennis MD #### LIPR, GLYHGB #### [address] [id number] Cotton Feeder: Wellington Back MD MCV (RBC) [Entitic vol] 92.9 fL Normal 82.6-102.9 [facility] Comment on above: Performed By: #### B UN, LIVP, CREG, BNP, CBC, TSH, LYTE, DIME #### [address] [place] [id number] Cotton Feeder: Sharath Dennis MD #### LIPR, GLYHGB #### [place] [address] [place] [address] Cotton Feeder: Wellington Back MD NRBC Automated 0.0 per 100 WBC Normal 0.0 [facility] Comment on above: Performed By: #### B UN, LIVP, CREG, BNP, CBC, TSH, LYTE, DIME #### [address] [place], [place] [id number] Cotton Feeder: Sharath Dennis MD #### LIPR, GLYHGB #### [place] [address] [place] [address] Cotton Feeder: Wellington Back MD Platelet mean volume (Bld) [Entitic vol] 9.9 fL Normal 8.1-13.5 [facility] Comment on above: Performed By: #### B UN, LIVP, CREG, BNP, CBC, TSH, LYTE, DIME #### [address] [place], [place] [id number] Cotton Feeder: Sharath Dennis MD #### LIPR, GLYHGB #### [address] [address] Cotton Feeder: Wellington Back MD Platelets (Bld) [#/Vol] 291 10*3/uL Normal 138-453 [facility] Comment on above: Performed By: #### B UN, LIVP, CREG, BNP, CBC, TSH, LYTE, DIME #### [address] [place], [place] [id number] Cotton Feeder: Sharath Dennis MD #### LIPR, GLYHGB #### [address] [address] Cotton Feeder: Wellington Back MD RBC (Bld) [#/Vol] 3.92 10*6/uL Low 3.95-5.11 [facility] Comment on above: Performed By: #### B UN, LIVP, CREG, BNP, CBC, TSH, LYTE, DIME #### [address] [place], [place] [id number] Cotton Feeder: Sharath Dennis MD #### LIPR, GLYHGB #### [address] [address] Cotton Feeder: Wellington Back MD WBC (Bld) [#/Vol] 7.7 10*3/uL Normal 3.5-11.3 [facility] Comment on above: Performed By: #### B UN, LIVP, CREG, BNP, CBC, TSH, LYTE, DIME #### [facility] [address] [place] [address] Dr. [place], [place] [id number] Cotton Feeder: Sharath Dennis MD #### LIPMicaela GLYHGB #### [facility] [address] [place] [address] Cotton Feeder: Wellington Back MD Creatinine w/GFRon 4 Creatinine [Mass/Vol] 1.1 mg/dL High 0.50-0.90 [facility] Comment on above: Performed By: #### B UN, LIVP, CREG, BNP, CBC, TSH, LYTE, DIME #### [address] [place] [address] Cotton Feeder: Sharath Dennis MD #### LIPMicaela, GLYHGB #### [facility] [address] [place] [address] Cotton Feeder: Wellington Back MD GFR/1.73 sq M.predicted among non-blacks MDRD (S/P/Bld) [Vol rate/Area] 50 mL/min/{1.73_m2} Low >60 [facility] Comment on above: Result Comment: These results are not intended for use in patients <18 years of age. eGFR results are calculated without a race factor using the 2020 CKD-EPI equation. Careful clinical correlation is recommended, particularly when comparing to results calculated using previous equations. The CKD-EPI equation is less accurate in patients with extremes of muscle mass, extra-renal metabolism of creatine, excessive creatine ingestion, or following therapy that affects renal tubular secretion. Performed By: #### B UN, LIVP, CREG, BNP, CBC, TSH, LYTE, DIME #### [address] [place] [address] Cotton Feeder: Sharath Dennis MD #### LIPR, GLYHGB #### [facility] [address] [place] [address] Cotton Feeder: Wellington Back MD D-Dimer Teston 10-22-2023 D-Dimer Test 0.41 ug/mL FEU Normal 0.00-0.59 [facility] Comment on above: Result Comment: When combined with a low clinical probability, a D dimer value of <0.50 ug/mL FEU is considered negative for DVT and PE (negative predictive value of 98%, sensitivity of 97%). If this test is not being used to help rule out DVT and PE, then the following reference range should be utilized: 0.00 - 0.59 ug/mL FEU. The D-Dimer assay is intended for use as an aid in the diagnosis of venous thromboembolism (DVT and PE) and the results should be interpreted in conjunction with the patient's medical history, clinical presentation, and other findings. Elevated levels of D-dimer activity can be seen in any state of coagulation activation and is not recommended in patients with therapeutic dose anticoagulant therapy for >24 hours, fibrinolytic therapy within the previous 7 days, trauma or surgery within the previous 4 weeks, disseminated malignancies, aortic aneurysm, sepsis, severe infections, pneumonia, severe skin infections, liver cirrhosis, advanced age, coronary disease, diabetes, and . A very low percentage of patients with DVT may yield D-dimer results below the cutoff of 0.5 ug/mL FEU. This is known to be more prevalent in patients with distal DVT. Performed By: #### C YUE PENG, TROPI #### [facility] [address] [place] [address] [place] [address] Cotton Feeder: Sharath Dennis MD Electrolyteson 10-22-2023 Anion gap [Moles/Vol] 10 mmol/L Normal 9-16 [facility] Comment on above: Performed By: #### C YUE PENG, TROPI #### [facility] [address] [place] [address] [place] [address] Cotton Feeder: Sharath Dennis MD Chloride [Moles/Vol] 106 mmol/L Normal 98-107 [facility] Comment on above: Performed By: #### C DP, CP, TROPI #### [facility] [address] [place] [address] Cotton Feeder: Sharath Dennis MD CO2 [Moles/Vol] 26 mmol/L Normal 20-31 [facility] Comment on above: Performed By: #### C DP, CP, TROPI #### [facility] [address] [place] [address] Cotton Feeder: Sharath Dennis MD Potassium [Moles/Vol] 4.2 mmol/L Normal 3.7-5.3 [facility] Comment on above: Performed By: #### C DP, CP, TROPI #### [facility] [address] [place] [address] Cotton Feeder: Sharath Dennis MD Sodium [Moles/Vol] 142 mmol/L Normal 136-145 [facility] Comment on above: Performed By: #### C DP, CP, TROPI #### [facility] [address] [place] [address] Cotton Feeder: Sharath Dennis MD Liver Profileon 10-22-2023 Albumin [Mass/Vol] 4.1 g/dL Normal 3.5-5.2 [facility] Comment on above: Performed By: #### C DP, CP, TROPI #### [facility] [address] [place] [address] Cotton Feeder: Sharath Dennis MD Albumin/Glob Ratio 1.6 Normal 1.0-2.5 [facility] Comment on above: Performed By: #### C DP, CP, TROPI #### [facility] [address] [place], [place] [id number] Cotton Feeder: Sharath Dennis MD Alkaline Phos 96 U/L Normal 35-104 [facility] Comment on above: Performed By: #### C DP, CP, TROPI #### [facility] [address] [place], [place] [id number] Cotton Feeder: Sharath Dennis MD ALT [Catalytic activity/Vol] 20 U/L Normal -35 [facility] Comment on above: Performed By: #### C DP, CP, TROPI #### [address] [place], [place] [id number] Cotton Feeder: Sharath Dennis MD AST [Catalytic activity/Vol] 25 U/L Normal 35 [facility] Comment on above: Performed By: #### C DP, CP, TROPI #### [address] [place], [place] [phone] Cotton Feeder: Sharath Dennis MD Bilirubin [Mass/Vol] 0.5 mg/dL Normal 0.00-1.20 [facility] Comment on above: Performed By: #### C DP, CP, TROPI #### [address] [place], [place] [id number] Cotton Feeder: Sharath Dennis MD Bilirubin, Indirect 0.2 mg/dL Normal 0.0-1.0 [facility] Comment on above: Performed By: #### C DP, CP, TROPI #### [address] [place], [place] [phone] [employer] Feeder: Sharath Dennis MD Bilirubin.indirect [Mass/Vol] 0.3 mg/dL Normal 0.00-0.30 [facility] Comment on above: Performed By: #### C DP, CP, TROPI #### [address] [place] [address] Cotton Feeder: Sharath Dennis MD Protein [Mass/Vol] 6.7 g/dL Normal 6.6-8.7 [facility] Comment on above: Performed By: #### C DP, CP, TROPI #### [address] [place], [place] [id number] Cotton Feeder: Sharath Dennis MD Thyroid Stim. Horm.on 2023 Thyroid Stim. Horm. 3.00 uIU/mL Normal 0.27-4.20 [facility] Comment on above: Performed By: #### C YUE PENG, TROPI #### [facility] [address] [place] [address] Cotton Feeder: Sharath Dennis MD [facility] ESME DIGITAL SCREEN BILA TERALon 06-10-2023 [facility] ESME DIGITAL SCREEN BILATERAL EXAMINATION: SCREENING DIGITAL BILATERAL MAMMOGRAM WITH TOMOSYNTHESIS, 06/09/2023 TECHNIQUE: Screening mammography was performed with tomosynthesis including MLO and CC views of the bilateral breasts. Computer aided detection was used for the interpretation of this exam. COMPARISON: 10 October 2021; 14 February 2018 HISTORY: Screening. Negative family history of breast cancer. No hormonal replacement therapy or breast interventions. FINDINGS: Both breasts are composed of heterogeneously dense parenchyma. No skin thickening, nipple contour changes, suspicious calcifications, suspicious masses, areas of architectural distortion or significant interval changes are noted. Diffusely distributed stable benign-appearing calcifications are present in both breasts. IMPRESSION: No evidence of malignancy. Advise annual screening mammography. BREAST DENSITY SUMMARY C: The breasts are heterogeneously dense which may obscure small masses. BI-RADS 2 BIRADS: BIRADS - CATEGORY 2 Benign Findings. Normal interval follow-up is recommended in 12 months. OVERALL ASSESSMENT - BENIGN A letter of notification will be sent to the patient regarding the results. The [employer] recommends annual mammograms for women 40 years and older. Interpreted by: Mel Gómez MD Signed by: Mel Gómez MD 06/10/23 Final result Normal [facility] BUN + Creatinineon 4 Creatinine [Mass/Vol] 0.8 mg/dL Normal 0.5-0.9 [facility] Comment on above: Performed By: #### C YUE PENG, TROPI #### [facility] [address] [place] [id number] [employer] Feeder: Sharath Dennis MD GFR/1.73 sq M.predicted among non-blacks MDRD (S/P/Bld) [Vol rate/Area] 74 mL/min/{1.73_m2} Normal >60 [facility] Comment on above: Result Comment: These results are not intended for use in patients <18 years of age. eGFR results are calculated without a race factor using the 2020 CKD-EPI equation. Careful clinical correlation is recommended, particularly when comparing to results calculated using previous equations. The CKD-EPI equation is less accurate in patients with extremes of muscle mass, extra-renal metabolism of creatine, excessive creatine ingestion, or following therapy that affects renal tubular secretion. Performed By: #### C DP CP, TROPI #### [address] [place] [address] [employer] Feeder: Sharath Dennis MD Urea nitrogen [Mass/Vol] 19 mg/dL Normal 8-23 [facility] Comment on above: Performed By: #### C DANISH CP, TROPI #### [address] [place] [address] [employer] Feeder: [facility] Erythrocyte distribution width (RBC) [Ratio] 15.3 % High 11.8-14.4 [facility] Comment on above: Performed By: #### C DP CP, TROPI #### [address] [place] [address] [employer] Feeder: Sharath Dennis MD Hematocrit (Bld) [Volume fraction] 42.9 % Normal 36.3-47.1 [facility] Comment on above: Performed By: #### C DP CP, TROPI #### [address] [place] [address] [employer] Feeder: Sharath Dennis MD Hemoglobin (Bld) [Mass/Vol] 13.7 g/dL Normal 11.9-15.1 [facility] Comment on above: Performed By: #### C DP CP, TROPI #### [address] [place] [id number] [employer] Feeder: Sharath Dennis MD MCH (RBC) [Entitic mass] 30.4 pg Normal 25.2-33.5 [facility] Comment on above: Performed By: #### C DP, CP, TROPI #### [address] [place], [place] [phone] [employer] Feeder: Sharath Dennis MD MCHC (RBC) [Mass/Vol] 31.9 g/dL Normal 28.4-34.8 [facility] Comment on above: Performed By: #### C DP, CP, TROPI #### [address] [place] [address] Cotton Feeder: Sharath Dennis MD MCV (RBC) [Entitic vol] 95.3 fL Normal 82.6-102.9 [facility] Comment on above: Performed By: #### C DP, CP, TROPI #### [address] [place], [facility]83 Cotton Feeder: Sharath Dennis MD NRBC Automated 0.0 per 100 WBC Normal 0.0 [facility] Comment on above: Performed By: #### C DP, CP, TROPI #### [address] [place], [facility]83 Cotton Feeder: Sharath Dennis MD Platelet mean volume (Bld) [Entitic vol] 9.3 fL Normal 8.1-13.5 [facility] Comment on above: Performed By: #### C DP, CP, TROPI #### [address] [place], [facility]83 Cotton Feeder: Sharath Dennis MD Platelets (Bld) [#/Vol] 276 10*3/uL Normal 138-453 [facility] Comment on above: Performed By: #### C DP, CP, TROPI #### [address] [place], [place] [phone] [employer] Feeder: Sharath Dennis MD RBC (Bld) [#/Vol] 4.50 10*6/uL Normal 3.95-5.11 [facility] Comment on above: Performed By: #### C DP, CP, TROPI #### [facility] [address] [place], [place] [phone] Cotton Feeder: Sharath Dennis MD WBC (Bld) [#/Vol] 12.2 10*3/uL High 3.5-11.3 [facility] Comment on above: Performed By: #### C DP, CP, TROPI #### [address] [place], [place] [id number] [employer] Feeder: Sharath Dennis MD Electrolyteson 06-03-2023 Anion gap [Moles/Vol] 11 mmol/L Normal 9-17 [facility] Comment on above: Performed By: #### C DP, CP, TROPI #### [facility] [address] [place] [address] Dr. [place], [place] [id number] [employer] Feeder: Sharath Dennis MD Chloride [Moles/Vol] 104 mmol/L Normal 98-107 [facility] Comment on above: Performed By: #### C DP, CP, TROPI #### [address] [place], [place] [phone] Cotton Feeder: Sharath Dennis MD CO2 [Moles/Vol] 26 mmol/L Normal 20-31 [facility] Comment on above: Performed By: #### C DP, CP, TROPI #### [facility] [address] [place], [place] [phone] [employer] Feeder: Sharath Dennis MD Potassium [Moles/Vol] 4.1 mmol/L Normal 3.7-5.3 [facility] Comment on above: Performed By: #### C DP, CP, TROPI #### [facility] [address] [place] [phone] Cotton Feeder: Sharath Dennis MD Sodium [Moles/Vol] 141 mmol/L Normal 135-144 [facility] Comment on above: Performed By: #### C DP, CP, TROPI #### [facility] [address] [place], [place] [id number] [employer] Feeder: Sharath Dennis MD Basic Metab w/rfx MGon 04-05 Anion gap [Moles/Vol] 9 mmol/L Normal 9-17 [facility] Comment on above: Performed By: #### C DP, CP, TROPI #### [facility] [address] [place], [place] [phone] Cotton Feeder: Sharath Dennis MD BUN/CRE Ratio 29 High 9-20 [facility] Comment on above: Performed By: #### C DP, CP, TROPI #### [facility] [address] [place], [place] [phone] Cotton Feeder: Sharath Dennis MD Calcium [Mass/Vol] 8.7 mg/dL Normal 8.6-10.4 [facility] Comment on above: Performed By: #### C DP, CP, TROPI #### [facility] [address] [place], [place] [phone] [employer] Feeder: Sharath Dennis MD Chloride [Moles/Vol] 109 mmol/L High 98-107 [facility] Comment on above: Performed By: #### C DP, CP, TROPI #### [facility] [address] [place], [place] [phone] Cotton Feeder: Sharath Dennis MD CO2 [Moles/Vol] 23 mmol/L Normal 20-31 [facility] Comment on above: Performed By: #### C DP, CP, TROPI #### [facility] [address] [place], [place] [phone] Cotton Feeder: Sharath Dennis MD Creatinine [Mass/Vol] 0.7 mg/dL Normal 0.5-0.9 [facility] Comment on above: Performed By: #### C YUE PENG TROPI #### [facility] [address] [place] [address] Cotton Feeder: Sharath Dennis MD GFR/1.73 sq M.predicted among non-blacks MDRD (S/P/Bld) [Vol rate/Area] mL/min/{1.73_m2} Normal >60 [facility] Comment on above: Result Comment: These results are not intended for use in patients <18 years of age. eGFR results are calculated without a race factor using the 2020 CKD-EPI equation. Careful clinical correlation is recommended, particularly when comparing to results calculated using previous equations. The CKD-EPI equation is less accurate in patients with extremes of muscle mass, extra-renal metabolism of creatine, excessive creatine ingestion, or following therapy that affects renal tubular secretion. Performed By: #### C YUE PENG TROPI #### [facility] [address] [place], [place] [phone] [employer] Feeder: Sharath Dennis MD Glucose [Mass/Vol] 94 mg/dL Normal 70-99 [facility] Comment on above: Performed By: #### C YUE PENG TROPI #### [address] [place], [place] [phone] Cotton Feeder: Sharath Dennis MD Potassium [Moles/Vol] 4.4 mmol/L Normal 3.7-5.3 [facility] Comment on above: Performed By: #### C YUE PENG, TROPI #### [facility] [address] [place] [address] Cotton Feeder: Sharath Dennis MD Sodium [Moles/Vol] 141 mmol/L Normal 135-144 [facility] Comment on above: Performed By: #### C YUE PENG, TROPI #### [facility] [address] [place], [place] [phone] Cotton Feeder: Sharath Dennis MD Urea nitrogen [Mass/Vol] 20 mg/dL Normal 8-23 [facility] Comment on above: Performed By: #### C YUE PENG, TROPI #### [facility] [address] [place] [address] [place]. [place], [place] [phone] Cotton Feeder: Sharath Dennis MD Brain Natri. Peptideon 04-05 Natriuretic peptide B (Bld) [Mass/Vol] 760 pg/mL High <300 [facility] Comment on above: Result Comment: An age-independent cutoff point of 300 pg/ml has a 98% negative predictive value excluding acute heart failure. Performed By: #### C YUE PENG, TROPI #### [facility] [address] [place] [address] Dr. [place], [facility]83 Cotton Feeder: Sharath Dennis MD CBC with Diffon 04-05-2023 Abs. Basophil 0.03 k/uL Normal 0.00-0.20 [facility] Comment on above: Performed By: #### C YUE PENG, TROPI #### [facility] [address] [place] [address] [place] [address] Cotton Feeder: Sharath Dennis MD Abs.Imm.Granulocyte 0.03 k/uL Normal 0.00-0.30 [facility] Comment on above: Performed By: #### C YUE PENG, TROPI #### [address] [place], [place] [address] Cotton Feeder: Sharath Dennis MD Abs.Neutrophil (Seg) 4.74 k/uL Normal 1.50-8.10 [facility] Comment on above: Performed By: #### C YUE PENG, TROPI #### [address] [place], [place] [phone] Cotton Feeder: Sharath Dennis MD Basophils/100 WBC (Bld) 0 % Normal 0-2 [facility] Comment on above: Performed By: #### C DANISH CP, TROPI #### [address] [place], [place] [id number] Cotton Feeder: Sharath Dennis MD Eosinophils (Bld) [#/Vol] 0.16 10*3/uL Normal 0.00-0.44 [facility] Comment on above: Performed By: #### C DP, CP, TROPI #### [address] [place], [place] [phone] Cotton Feeder: Sharath Dennis MD Eosinophils/100 WBC (Bld) 2 % Normal 1-4 [facility] Comment on above: Performed By: #### C DP, CP, TROPI #### [address] [place] [phone] Cotton Feeder: Sharath Dennis MD Erythrocyte distribution width (RBC) [Ratio] 14.7 % High 11.8-14.4 [facility] Comment on above: Performed By: #### C DP, CP, TROPI #### [address] [place], [facility]83 Cotton Feeder: Sharath Dennis MD Hematocrit (Bld) [Volume fraction] 35.8 % Low 36.3-47.1 [facility] Comment on above: Performed By: #### C DP, CP, TROPI #### [address] [place], [facility]83 Cotton Feeder: Sharath Dennis MD Hemoglobin (Bld) [Mass/Vol] 11.2 g/dL Low 11.9-15.1 [facility] Comment on above: Performed By: #### C DP, CP, TROPI #### [address] [place], [place] [phone] Cotton Feeder: Sharath Dennis MD Immature granulocytes/100 WBC (Bld) 0 % Normal 0 [facility] Comment on above: Performed By: #### C DP, CP, TROPI #### [address] [place], [facility]83 Cotton Feeder: Sharath Dennis MD Lymphocytes (Bld) [#/Vol] 2.08 10*3/uL Normal 1.10-3.70 [facility] Comment on above: Performed By: #### C DP, CP, TROPI #### [facility] [address] [place] [phone] Cotton Feeder: Sharath Dennis MD Lymphocytes/100 WBC (Bld) 26 % Normal 24-43 [facility] Comment on above: Performed By: #### C DP, CP, TROPI #### [facility] [address] [place] [address] Cotton Feeder: Sharath Dennis MD MCH (RBC) [Entitic mass] 29.5 pg Normal 25.2-33.5 [facility] Comment on above: Performed By: #### C DP, CP, TROPI #### [address] [place] [address] Cotton Feeder: Sharath Dennis MD MCHC (RBC) [Mass/Vol] 31.3 g/dL Normal 28.4-34.8 [facility] Comment on above: Performed By: #### C DP, CP, TROPI #### [address] [place] [address] Cotton Feeder: Sharath Dennis MD MCV (RBC) [Entitic vol] 94.2 fL Normal 82.6-102.9 [facility] Comment on above: Performed By: #### C DP, CP, TROPI #### [address] [place], [facility]83 Cotton Feeder: Sharath Dennis MD Monocytes (Bld) [#/Vol] 0.95 10*3/uL Normal 0.10-1.20 [facility] Comment on above: Performed By: #### C DP, CP, TROPI #### [address] [place] [address] Cotton Feeder: Sharath Dennis MD Monocytes/100 WBC (Bld) 12 % Normal 3-12 [facility] Comment on above: Performed By: #### C DP CP, TROPI #### [facility] [address] [place] [address] Cotton Feeder: Sharath Dennis MD Neutrophil (Seg) 60 % Normal 36-65 [facility] Comment on above: Performed By: #### C DP, CP, TROPI #### [facility] [address] [place] [address] Cotton Feeder: Sharath Dennis MD NRBC Automated 0.0 per 100 WBC Normal 0.0 [facility] Comment on above: Performed By: #### C DP, CP, TROPI #### [facility] [address] [place] [address] Cotton Feeder: Sharath Dennis MD Platelet mean volume (Bld) [Entitic vol] 9.3 fL Normal 8.1-13.5 [facility] Comment on above: Performed By: #### C DP CP, TROPI #### [facility] [address] [place] [address] Cotton Feeder: Sharath Dennis MD Platelets (Bld) [#/Vol] 241 10*3/uL Normal 138-453 [facility] Comment on above: Performed By: #### C DP, CP, TROPI #### [facility] [address] [place] [address] Cotton Feeder: Sharath Dennis MD RBC (Bld) [#/Vol] 3.80 10*6/uL Low 3.95-5.11 [facility] Comment on above: Performed By: #### C DP, CP, TROPI #### [facility] [address] [place] [address] Cotton Feeder: Sharath Dennis MD WBC (Bld) [#/Vol] 8.0 10*3/uL Normal 3.5-11.3 [facility] Comment on above: Performed By: #### C YUE PENG, TROPI #### [facility] [address] [place] [address] Cotton Feeder: Sharath Dennis MD Hemoglobin A1Con 04-05-2023 Glucose [Mass/Vol] 111 mg/dL Normal [facility] Comment on above: Result Comment: The ADA and AACC recommend providing the estimated average glucose result to permit better patient understanding of their HBA1c result. Performed By: #### C YUE PENG, TROPI #### [facility] [address] [place] [address] Cotton Feeder: Sharath Dennis MD HbA1c (Bld) [Mass fraction] 5.5 % Normal 4.0-6.0 [facility] Comment on above: Performed By: #### C YUE PENG, TROPI #### [facility] [address] [place] [address] Cotton Feeder: Sharath Dennis MD Lipid Profileon 04-05-2023 Cholesterol [Mass/Vol] 130 mg/dL Normal <200 [facility] Comment on above: Result Comment: Cholesterol Guidelines: <200 Desirable 200-240 Borderline >240 Undesirable Performed By: #### C YUE PENG, TROPI #### [facility] [address] [place] [address] [place] [address] Cotton Feeder: Sharath Dennis MD Cholesterol in HDL [Mass/Vol] 72 mg/dL Normal >40 [facility] Comment on above: Result Comment: HDL Guidelines: <40 Undesirable 40-59 Borderline >59 Desirable Performed By: #### C YUE PENG, TROPI #### [facility] [address] [place] [address] Cotton Feeder: Sharath Dennis MD Cholesterol in LDL [Mass/Vol] 50 mg/dL Normal 0-130 [facility] Comment on above: Result Comment: LDL Guidelines: <100 Desirable 100-129 Near to/above Desirable 130-159 Borderline >159 Undesirable Direct (measured) LDL and calculated LDL are not interchangeable tests. Performed By: #### C YUE PENG, TROPI #### [facility] [address] [place], [place] [id number] Cotton Feeder: Sharath Dennis MD Cholesterol.total/Chol esterol in HDL [Mass ratio] 1.8 {ratio} Normal <5 [facility] Comment on above: Performed By: #### C DANISH CP, TROPI #### [facility] [address] [place], [place] [phone] Cotton Feeder: Sharath Dennis MD Triglyceride [Mass/Vol] 42 mg/dL Normal <150 [facility] Comment on above: Result Comment: Triglyceride Guidelines: <150 Desirable 150-199 Borderline 200-499 High >499 Very high Based on AHA Guidelines for fasting triglyceride, November 2011. Performed By: #### C YUE PENG, TROPI #### [facility] [address] [place], [place] [phone] Cotton Feeder: Sharath Dennis MD Magnesiumon 04-05-2023 Magnesium [Mass/Vol] 2.1 mg/dL Normal 1.6-2.6 [facility] Comment on above: Performed By: #### C YUE PENG, TROPI #### [facility] [address] [place], [place] [phone] Cotton Feeder: Sharath Dennis MD Troponinon 04-05-2023 Troponin, High Sens 25 ng/L High 0-14 [facility] Comment on above: Result Comment: High Sensitivity Troponin values cannot be compared with other Troponin methodologies. Performed By: #### C YUE PENG, TROPI #### [facility] [address] [place], [place] [phone] Cotton Feeder: Sharath Dennis MD CBC with Diffon 04-04-2023 Abs. Basophil 0.03 k/uL Normal 0.00-0.20 [facility] Comment on above: Performed By: #### C DP, CP, TROPI #### [facility] [address] [place] [address] [place] [address] Cotton Feeder: Sharath Dennis MD Abs.Imm.Granulocyte 0.04 k/uL Normal 0.00-0.30 [facility] Comment on above: Performed By: #### C DP, CP, TROPI #### [facility] [address] [place] [address] Dr. [place], [place] [address] Cotton Feeder: Sharath Dennis MD Abs.Neutrophil (Seg) 6.00 k/uL Normal 1.50-8.10 [facility] Comment on above: Performed By: #### C DANISH CP, TROPI #### [address] [place] [address] Cotton Feeder: Sharath Dennis MD Basophils/100 WBC (Bld) 0 % Normal 0-2 [facility] Comment on above: Performed By: #### C DANISH CP, TROPI #### [address] [place], [place] [address] Cotton Feeder: Sharath Dennis MD Eosinophils (Bld) [#/Vol] 0.17 10*3/uL Normal 0.00-0.44 [facility] Comment on above: Performed By: #### C DANISH CP, TROPI #### [address] [place], [place] [address] Cotton Feeder: Sharath Dennis MD Eosinophils/100 WBC (Bld) 2 % Normal 1-4 [facility] Comment on above: Performed By: #### C DANISH CP, TROPI #### [address] [place], [place] [address] Cotton Feeder: Sharath Dennis MD Erythrocyte distribution width (RBC) [Ratio] 14.7 % High 11.8-14.4 [facility] Comment on above: Performed By: #### C DP, CP, TROPI #### [address] [place] [address] Cotton Feeder: Sharath Dennis MD Hematocrit (Bld) [Volume fraction] 38.1 % Normal 36.3-47.1 [facility] Comment on above: Performed By: #### C DP, CP, TROPI #### [address] [place], [place] [address] Cotton Feeder: Sharath Dennis MD Hemoglobin (Bld) [Mass/Vol] 11.9 g/dL Normal 11.9-15.1 [facility] Comment on above: Performed By: #### C DP, CP, TROPI #### [address] [place], [facility]83 Cotton Feeder: Sharath Dennis MD Immature granulocytes/100 WBC (Bld) 0 % Normal 0 [facility] Comment on above: Performed By: #### C DP, CP, TROPI #### [address] [place], [facility]83 Cotton Feeder: Sharath Dennis MD Lymphocytes (Bld) [#/Vol] 1.88 10*3/uL Normal 1.10-3.70 [facility] Comment on above: Performed By: #### C DP, CP, TROPI #### [address] [place], [place] [address] Cotton Feeder: Sharath Dennis MD Lymphocytes/100 WBC (Bld) 21 % Low 24-43 [facility] Comment on above: Performed By: #### C DP, CP, TROPI #### [address] [place], [place] [phone] Cotton Feeder: Sharath Dennis MD MCH (RBC) [Entitic mass] 29.3 pg Normal 25.2-33.5 [facility] Comment on above: Performed By: #### C DP, CP, TROPI #### [facility] [address] [place] [address] Cotton Feeder: Sharath Dennis MD MCHC (RBC) [Mass/Vol] 31.2 g/dL Normal 28.4-34.8 [facility] Comment on above: Performed By: #### C DP, CP, TROPI #### [facility] [address] [place], [place] [address] [employer] Feeder: Sharath Dennis MD MCV (RBC) [Entitic vol] 93.8 fL Normal 82.6-102.9 [facility] Comment on above: Performed By: #### C DP, CP, TROPI #### [address] [place], [place] [address] [employer] Feeder: Sharath Dennis MD Monocytes (Bld) [#/Vol] 1.01 10*3/uL Normal 0.10-1.20 [facility] Comment on above: Performed By: #### C DP, CP, TROPI #### [address] [place], [facility]83 [employer]: Sharath Dennis MD Monocytes/100 WBC (Bld) 11 % Normal 3-12 [facility] Comment on above: Performed By: #### C DP, CP, TROPI #### [address] [place], [place] [address] [employer]eder: Sharath Dennis MD Neutrophil (Seg) 66 % High 36-65 [facility] Comment on above: Performed By: #### C DP, CP, TROPI #### [address] [place], [facility]83 [employer]eder: Sharath Dennis MD NRBC Automated 0.0 per 100 WBC Normal 0.0 [facility] Comment on above: Performed By: #### C DP, CP, TROPI #### [address] [place], [facility]83 [employer]: Sharath Dennis MD Platelet mean volume (Bld) [Entitic vol] 9.1 fL Normal 8.1-13.5 [facility] Comment on above: Performed By: #### C DP, CP, TROPI #### [address] [place], [place] [id number] [employer]eder: Sharath Dennis MD Platelets (Bld) [#/Vol] 270 10*3/uL Normal 138-453 [facility] Comment on above: Performed By: #### C DP, CP, TROPI #### [address] [place], [place] [address] [employer]eder: Sharath Dennis MD RBC (Bld) [#/Vol] 4.06 10*6/uL Normal 3.95-5.11 [facility] Comment on above: Performed By: #### C DP, CP, TROPI #### [address] [place], [facility]83 [employer]eder: Sharath Dennis MD WBC (Bld) [#/Vol] 9.1 10*3/uL Normal 3.5-11.3 [facility] Comment on above: Performed By: #### C DP, CP, TROPI #### [address] [place], [facility]83 [employer]eder: Sharath Dennis MD Comp Metabolic Profon 2023 Albumin [Mass/Vol] 4.0 g/dL Normal 3.5-5.2 [facility] Comment on above: Performed By: #### C DP, CP, TROPI #### [address] [place] [address] [employer] Feeder: Sharath Dennis MD Albumin/Glob Ratio 1.4 Normal 1.0-2.5 [facility] Comment on above: Performed By: #### C DP, CP, TROPI #### [address] [place], [place] [id number] Cotton Feeder: Sharath Dennis MD Alkaline Phos 76 U/L Normal 35-104 [facility] Comment on above: Performed By: #### C DP, CP, TROPI #### [facility] [address] [place], [place] [phone] [employer] Feeder: Sharath Dennis MD ALT [Catalytic activity/Vol] 22 U/L Normal 5-33 [facility] Comment on above: Performed By: #### C DP, CP, TROPI #### [facility] [address] [place], [place] [id number] [employer]eder: Sharath Dennis MD Anion gap [Moles/Vol] 8 mmol/L Low 9-17 [facility] Comment on above: Performed By: #### C DP, CP, TROPI #### [facility] [address] [place] [address] Dr. [place], [place] [phone] [employer]eder: Sharath Dennis MD AST [Catalytic activity/Vol] 19 U/L Normal <32 [facility] Comment on above: Performed By: #### C DP, CP, TROPI #### [address] [place], [place] [phone] [employer]eder: Sharath Dennis MD Bilirubin [Mass/Vol] 0.5 mg/dL Normal 0.3-1.2 [facility] Comment on above: Performed By: #### C DP, CP, TROPI #### [facility] [address] [place] [address] Dr. [place], [place] [phone] [employer] Feeder: Sharath Dennis MD BUN/CRE Ratio 31 High 9-20 [facility] Comment on above: Performed By: #### C DP, CP, TROPI #### [facility] [address] [place] [address] Dr. [place], [place] [phone] [employer]: Sharath Dennis MD Calcium [Mass/Vol] 9.2 mg/dL Normal 8.6-10.4 [facility] Comment on above: Performed By: #### C DP CP, TROPI #### [facility] [address] [place] [address] [employer] Feeder: Sharath Dennis MD Chloride [Moles/Vol] 104 mmol/L Normal 98-107 [facility] Comment on above: Performed By: #### C DP CP, TROPI #### [facility] [address] [place] [address] Cotton Feeder: Sharath Dennis MD CO2 [Moles/Vol] 27 mmol/L Normal 20-31 [facility] Comment on above: Performed By: #### C DANISH CP, TROPI #### [facility] [address] [place], [place] [phone] [employer]eder: Sharath Dennis MD Creatinine [Mass/Vol] 0.8 mg/dL Normal 0.5-0.9 [facility] Comment on above: Performed By: #### C YUE PENG, TROPI #### [facility] [address] [place] [address] [employer]eder: Sharath Dennis MD GFR/1.73 sq M.predicted among non-blacks MDRD (S/P/Bld) [Vol rate/Area] mL/min/{1.73_m2} Normal >60 [facility] Comment on above: Result Comment: These results are not intended for use in patients <18 years of age. eGFR results are calculated without a race factor using the 2020 CKD-EPI equation. Careful clinical correlation is recommended, particularly when comparing to results calculated using previous equations. The CKD-EPI equation is less accurate in patients with extremes of muscle mass, extra-renal metabolism of creatine, excessive creatine ingestion, or following therapy that affects renal tubular secretion. Performed By: #### C DP, CP, TROPI #### [facility] [address] [place] [address] [employer]: Sharath Dennis MD Glucose [Mass/Vol] 102 mg/dL High 70-99 [facility] Comment on above: Performed By: #### C DP CP, TROPI #### [facility] [address] [place] [address] [employer]eder: Sharath Dennis MD Potassium [Moles/Vol] 4.7 mmol/L Normal 3.7-5.3 [facility] Comment on above: Performed By: #### C DP CP, TROPI #### [facility] [address] [place] [address] [employer]: Sharath Dennis MD Protein [Mass/Vol] 6.8 g/dL Normal 6.4-8.3 [facility] Comment on above: Performed By: #### C DP, CP, TROPI #### [address] [place] [address] [employer]eder: Sharath Dennis MD Sodium [Moles/Vol] 139 mmol/L Normal 135-144 [facility] Comment on above: Performed By: #### C DANISH CP, TROPI #### [address] [place], [place] [phone] [employer]eder: Sharath Dennis MD Urea nitrogen [Mass/Vol] 25 mg/dL High 8-23 [facility] Comment on above: Performed By: #### C DANISH CP, TROPI #### [facility] [address] [place] [address] [place] [address] [employer] Feeder: Sharath Dennis MD Flu A/B Ag Detectionon 04-04 Flu A Ag Detection Negative Normal NEG [facility] Comment on above: Result Comment: for Influenza A Antigen Performed By: #### F LUABA #### [facility] [address] [place] [address] Dr[place], [place] [phone] [employer]eder: Sharath Dennis MD Flu B Ag Detection Negative Normal NEG [facility] Comment on above: Result Comment: for Influenza B Antigen. Performed By: #### F LUABA #### [facility] [address] [place] [address] [employer] Feeder: Sharath Dennis MD PTon 04-04-2023 INR Coag (PPP) [Relative time] 1.0 {INR} Normal [facility] Comment on above: Result Comment: Therapeutic Range: Moderate Anticoagulant Intensity: INR = 2.0-3.0 High Anticoagulant Intensity: INR = 2.5-3.5 Performed By: #### C DP, CP, TROPI #### [facility] [address] [place] [address] Cotton Feeder: Sharath Dennis MD PT Coag (PPP) [Time] 13.3 s Normal 11.9-14.8 [facility] Comment on above: Performed By: #### C DP, CP, TROPI #### [facility] [address] [place] [address] [employer] Feeder: Sharath Dennis MD [id number] 04-04-2023 SARS-CoV-2 (COVID-19) RNA LADAN+probe Ql (Unsp spec) Not detected Normal NOTDET [facility] Comment on above: Result Comment: Rapid NAAT: The specimen is NEGATIVE for SARS-CoV-2, the novel coronavirus associated with COVID-19. The ID NOW COVID-19 assay is designed to detect the virus that causes COVID-19 in patients with signs and symptoms of infection who are suspected of COVID-19. An individual without symptoms of COVID-19 and who is not shedding SARS-CoV-2 virus would expect to have a negative (not detected) result in this assay. Negative results should be treated as presumptive and, if inconsistent with clinical signs and symptoms or necessary for patient management, should be tested with an alternative molecular assay. Negative results do not preclude SARS-CoV-2 infection and should not be used as the sole basis for patient management decisions. Fact sheet for Healthcare Providers: https://www.fda.gov/media/552627/download Fact sheet for Patients: https://www.fda.gov/media/621966/download Methodology: Isothermal Nucleic Acid Amplification Performed By: #### U AX, UMICAO #### [facility] [address] [address] Cotton Feeder: Sharath Dennis MD Troponinon 04-04-2023 Troponin, High Sens 26 ng/L High 014 [facility] Comment on above: Result Comment: High Sensitivity Troponin values cannot be compared with other Troponin methodologies. Performed By: #### C DP, CP, TROPI #### [facility] [address] [place] [address] Cotton Feeder: Sharath Dennis MD Troponin, High Sens 21 ng/L High 014 [facility] Comment on above: Result Comment: High Sensitivity Troponin values cannot be compared with other Troponin methodologies. Performed By: #### C DP, CP, TROPI #### [facility] [address] [place] [address] Cotton Feeder: Sharath Dennis MD XR CHEST PORTABLEon 04-04-19 XR CHEST PORTABLE EXAMINATION: ONE XRAY VIEW OF THE CHEST 04/04/2023 1:46 pm COMPARISON: AP chest from 10/05/2021 HISTORY: ORDERING SYSTEM PROVIDED HISTORY: chest pain TECHNOLOGIST PROVIDED HISTORY: chest pain FINDINGS: Overlying ECG monitor leads and gown snaps. The lungs are without acute focal process. There is no effusion or pneumothorax. Calcified granuloma again noted left lung apex. The cardiomediastinal silhouette is without acute process. Mild unchanged elongation calcification thoracic aorta. The osseous structures are without acute process. Mild DJD spine. IMPRESSION: No acute process. Interpreted by: Aguilar Gonzalez MD Signed by: Aguilar Gonzalez MD 04/04/23 Final result Normal [facility] CBC with Auto Differentialon 10-21-2021 Absolute Eos # 0.20 [facility] Absolute Immature Granulocyte [facility] Absolute Lymph # 1.03 Low [facility] Absolute Carter # 0.60 [facility] Basophils Absolute [facility] Basophils/100 WBC (Bld) 0 % 0 - 2 % [facility] Eosinophils/100 WBC (Bld) 5 % High 1 - 4 % [facility] Hematocrit (Bld) [Volume fraction] 38.4 % 36.3 - 47.1 % [facility] Hemoglobin (Bld) [Mass/Vol] 11.8 g/dL Low 11.9 - 15.1 g/dL [facility] Immature granulocytes/100 WBC (Bld) 0 % 0 [facility] Interpretation and review of laboratory results Abnormal [facility] Lymphocytes/100 WBC (Bld) 23 % Low 24 - 43 % [facility] MCH (RBC) [Entitic mass] 29.3 pg 25.2 - 33.5 pg [facility] MCHC (RBC) [Mass/Vol] 30.7 g/dL 28.4 - 34.8 g/dL [facility] MCV (RBC) [Entitic vol] 95.3 fL 82.6 - 102.9 fL [facility] Monocytes/100 WBC (Bld) 14 % High 3 - 12 % [facility] NRBC Automated 0.0 0.0 per 100 WBC [facility] Platelet distribution width (Bld) [Ratio] 14.1 % 11.8 - 14.4 % [facility] Platelet mean volume (Bld) [Entitic vol] 9.8 fL 8.1 - 13.5 fL [facility] Platelets (Bld) [#/Vol] 185 10*3/uL [facility] RBC (Bld) [#/Vol] 4.03 10*6/uL 3.95 - 5.1 1 m/uL [facility] Segmented neutrophils/100 WBC (Bld) 58 % 36 - 65 % [facility] Segs Absolute 2.59 [facility] WBC (Bld) [#/Vol] 4.5 10*3/uL [facility] CMPon 10-21-2021 Albumin [Mass/Vol] 4.2 g/dL 3.5 - 5.2 g/dL [facility] Albumin/Globulin [Mass ratio] 1.7 {ratio} 1 - 2.5 [facility] ALP (Bld) [Catalytic activity/Vol] 100 U/L 35 - 104 U/L [facility] ALT [Catalytic activity/Vol] 21 U/L 5 - 33 U/L [facility] Anion gap [Moles/Vol] 9 mmol/L 9 - 17 mmol/L [facility] AST [Catalytic activity/Vol] 21 U/L NINF - 32 U/L [facility] Bilirubin [Mass/Vol] 0.5 mg/dL 0.3 - 1 .2 mg/dL [facility] Calcium [Mass/Vol] 9.6 mg/dL 8.6 - 10. 4 mg/dL [facility] Chloride [Moles/Vol] 102 mmol/L 98 - 10 7 mmol/L [facility] CO2 [Moles/Vol] 27 mmol/L 20 - 31 mmol/L [facility] Creatinine [Mass/Vol] 0.73 mg/dL 0.5 - 0.9 mg/dL [facility] Free PSA/Total PSA [Mass fraction] 6.7 g/dL 6.4 - 8.3 g/dL [facility] GFR >60 60 - PI NF mL/min [facility] GFR Non- >60 60 - PINF mL/min [facility] Glucose [Mass/Vol] 94 mg/dL 70 - 99 mg/dL [facility] Interpretation and review of laboratory results Abnormal [facility] Potassium [Moles/Vol] 4.3 mmol/L 3.7 - 5.3 mmol/L [facility] Sodium [Moles/Vol] 138 mmol/L 135 - 144 mmol/L [facility] Urea nitrogen (BldV) [Mass/Vol] 20 mg/dL 8 - 23 mg/dL [facility] Urea nitrogen/Creatinine (Bld) [Mass ratio] 27 High 9 - 20 [facility] Laboratory - Chemistry and C hemistry - challengeon 10-21-2021 GFR/1.73 sq M.predicted MDRD (S/P/Bld) [Vol rate/Area] [facility] Comment on above: Average GFR for 70 o r more years old: 75 mL/min/1.73sq m Chronic Kidney Disease: <60 mL/min/1.73sq m Kidney failure: <15 mL/min/1.73sq m eGFR calculated using average adult body mass. Additional eGFR calculator available at: http://www.Labmeeting/multiple_crcl_2012.htm Stage 1: Some kidney damage normal GFR Stage 2: Mild kidney damage GFR 60-89 Stage 3: Moderate kidney damage GFR 30-59 Stage 4: Severe kidney damage GFR 15-29 Stage 5: Severe kidney damage GFR <15 ESRD - chronic treatment by dialysis or transplant Troponinon 10-21-2021 Troponin, High Sensitivity 13 ng/L 0 - 14 ng/L [facility] Comment on above: High Sensitivity Troponin values cannot be compared with other Troponin methodologies. Patients with high levels of Biotin oral intake (i.e >5mg/day) may have falsely decreased Troponin levels. Samples collected within 8 hours of biotin intake may require additional information for diagnosis. [facility] Interpretation and review of laboratory results Abnormal [facility] Troponin, High Sensitivity 16 ng/L High 0 - 14 ng/L [facility] Comment on above: High Sensitivity Troponin values cannot be compared with other Troponin methodologies. Patients with high levels of Biotin oral intake (i.e >5mg/day) may have falsely decreased Troponin levels. Samples collected within 8 hours of biotin intake may require additional information for diagnosis. [facility] [employer] XR FOOT LEFT (MIN 3 VIEWS)on 10-16-2021 No acute findings. [facility] EXAMINATION: THREE XRAY VIEWS OF THE LEFT FOOT 10/15/2021 4:02 pm COMPARISON: None. HISTORY: ORDERING SYSTEM PROVIDED HISTORY: Pain FINDINGS: Foot alignment is anatomic. Generalized osteopenia. No acute fracture. Mild degenerative change midfoot. Threaded screw anterior aspect of the calcaneus. Soft tissues unremarkable. [facility] CONSOLID[facility] Hermes Cortez DO - 10/16/2021 EXAMINATION: THREE XRAY VIEWS OF THE LEFT FOOT 10/15/2021 4:02 pm COMPARISON: None. HISTORY: ORDERING SYSTEM PROVIDED HISTORY: Pain FINDINGS: Foot alignment is anatomic. Generalized osteopenia. No acute fracture. Mild degenerative change midfoot. Threaded screw anterior aspect of the calcaneus. Soft tissues unremarkable. IMPRESSION: No acute findings. [employer] Phone: XR FOOT LEFT (MIN 3 VIEWS)Or dered By: Hermes Cortez on 10-16-2021 [employer] Phone: XR FOOT RIGHT (MIN 3 VIEWS)o n 10-16-2021 No acute findings. [facility] EXAMINATION: THREE XRAY VIEWS OF THE RIGHT FOOT 10/15/2021 4:03 pm COMPARISON: None. HISTORY: ORDERING SYSTEM PROVIDED HISTORY: Pain FINDINGS: No acute findings. Mild hallux valgus deformity. Moderate degenerative change midfoot and 1st metatarsophalangeal joint. Generalized osteopenia. Soft tissues unremarkable. [facility] Hermes Cortez DO - 10/16/2021 EXAMINATION: THREE XRAY VIEWS OF THE RIGHT FOOT 10/15/2021 4:03 pm COMPARISON: None. HISTORY: ORDERING SYSTEM PROVIDED HISTORY: Pain FINDINGS: No acute findings. Mild hallux valgus deformity. Moderate degenerative change midfoot and 1st metatarsophalangeal joint. Generalized osteopenia. Soft tissues unremarkable. IMPRESSION: No acute findings. [employer] Phone: XR FOOT RIGHT (MIN 3 VIEWS)O rdered By: Hermes Cortez on 10-16-2021 [employer] Phone: Basic Metabolic Panelon 09-0 Anion gap [Moles/Vol] 10 mmol/L 9 - 17 mmol/L [employer] Calcium [Mass/Vol] 9.7 mg/dL 8.6 - 10. 4 mg/dL [facility] Chloride [Moles/Vol] 105 mmol/L 98 - 10 7 mmol/L [facility] CO2 [Moles/Vol] 27 mmol/L 20 - 31 mmol/L [facility] Creatinine [Mass/Vol] 0.84 mg/dL 0.5 - 0.9 mg/dL [facility] GFR >60 60 - PI NF mL/min [facility] GFR Non- >60 60 - PINF mL/min [facility] Glucose [Mass/Vol] 98 mg/dL 70 - 99 mg/dL [facility] Interpretation and review of laboratory results Abnormal [facility] Potassium [Moles/Vol] 4.5 mmol/L 3.7 - 5.3 mmol/L [facility] Sodium [Moles/Vol] 142 mmol/L 135 - 144 mmol/L [facility] Urea nitrogen (BldV) [Mass/Vol] 29 mg/dL High 8 - 23 mg/dL [facility] Urea nitrogen/Creatinine (Bld) [Mass ratio] 35 High 9 - 20 [facility] Laboratory - Chemistry and C hemistry - challengeon 10-15-2021 GFR/1.73 sq M.predicted MDRD (S/P/Bld) [Vol rate/Area] [facility] Comment on above: Average GFR for 70 o r more years old: 75 mL/min/1.73sq m Chronic Kidney Disease: <60 mL/min/1.73sq m Kidney failure: <15 mL/min/1.73sq m eGFR calculated using average adult body mass. Additional eGFR calculator available at: http://www.Labmeeting/multiple_crcl_2012.htm Stage 1: Some kidney damage normal GFR Stage 2: Mild kidney damage GFR 60-89 Stage 3: Moderate kidney damage GFR 30-59 Stage 4: Severe kidney damage GFR 15-29 Stage 5: Severe kidney damage GFR <15 ESRD - chronic treatment by dialysis or transplant No Panel Informationon 10-15 [facility] [employer] Sedimentation Rateon 022 Sed Rate 9 [facility] Uric Acidon 10-15-2021 Urate [Mass/Vol] 4.5 mg/dL 2.4 - 5.7 mg/dL [facility] [employer] XR FOOT LEFT (MIN 3 VIEWS)on 10-15-2021 Radiology Study observation (narrative) [facility] [employer] Work Phone: XR FOOT RIGHT (MIN 3 VIEWS)o n 10-15-2021 Radiology Study observation (narrative) [facility] [employer] Work Phone: CBC with Auto Differentialon 10-05-2021 Absolute Eos # 0.23 [facility] Absolute Immature Granulocyte 0.07 [facility] Absolute Lymph # 1.92 [facility] Absolute Carter # 1.14 [facility] Basophils Absolute [facility] Basophils/100 WBC (Bld) 0 % 0 - 2 % [facility] Eosinophils/100 WBC (Bld) 3 % 1 - 4 % [facility] Hematocrit (Bld) [Volume fraction] 38.6 % 36.3 - 47.1 % [facility] Hemoglobin (Bld) [Mass/Vol] 12.0 g/dL 11.9 - 15.1 g/dL [facility] Immature granulocytes/100 WBC (Bld) 1 % High 0 [facility] Interpretation and review of laboratory results Abnormal [facility] Lymphocytes/100 WBC (Bld) 24 % 24 - 43 % [facility] MCH (RBC) [Entitic mass] 29.6 pg 25.2 - 33.5 pg [facility] MCHC (RBC) [Mass/Vol] 31.1 g/dL 28.4 - 34.8 g/dL [facility] MCV (RBC) [Entitic vol] 95.1 fL 82.6 - 102.9 fL [facility] Monocytes/100 WBC (Bld) 15 % High 3 - 12 % [facility] NRBC Automated 0.0 0.0 per 100 WBC [facility] Platelet distribution width (Bld) [Ratio] 13.2 % 11.8 - 14.4 % [facility] Platelet mean volume (Bld) [Entitic vol] 9.1 fL 8.1 - 13.5 fL [facility] Platelets (Bld) [#/Vol] 278 10*3/uL [facility] RBC (Bld) [#/Vol] 4.06 10*6/uL 3.95 - 5.1 1 m/uL [facility] Segmented neutrophils/100 WBC (Bld) 57 % 36 - 65 % [facility] Segs Absolute 4.51 [facility] WBC (Bld) [#/Vol] 7.9 10*3/uL [facility] CMPon 10-05-2021 Albumin [Mass/Vol] 3.7 g/dL 3.5 - 5.2 g/dL [facility] Albumin/Globulin [Mass ratio] 1.5 {ratio} 1 - 2.5 [facility] ALP (Bld) [Catalytic activity/Vol] 93 U/L 35 - 104 U/L [facility] ALT [Catalytic activity/Vol] 20 U/L 5 - 33 U/L [facility] Anion gap [Moles/Vol] 10 mmol/L 9 - 17 mmol/L [facility] AST [Catalytic activity/Vol] 17 U/L NINF - 32 U/L [facility] Bilirubin [Mass/Vol] 0.31 mg/dL 0.3 - 1 .2 mg/dL [facility] Calcium [Mass/Vol] 9.1 mg/dL 8.6 - 10. 4 mg/dL [facility] Chloride [Moles/Vol] 104 mmol/L 98 - 10 7 mmol/L [facility] CO2 [Moles/Vol] 25 mmol/L 20 - 31 mmol/L [facility] Creatinine [Mass/Vol] 0.7 mg/dL 0.5 - 0.9 mg/dL [facility] Free PSA/Total PSA [Mass fraction] 6.1 g/dL Low 6.4 - 8.3 g/dL [facility] GFR >60 60 - PI NF mL/min [facility] GFR Non- >60 60 - PINF mL/min [facility] Glucose [Mass/Vol] 95 mg/dL 70 - 99 mg/dL [facility] Interpretation and review of laboratory results Abnormal [facility] Potassium [Moles/Vol] 4.2 mmol/L 3.7 - 5.3 mmol/L [facility] Sodium [Moles/Vol] 139 mmol/L 135 - 144 mmol/L [facility] Urea nitrogen (BldV) [Mass/Vol] 35 mg/dL High 8 - 23 mg/dL [facility] Urea nitrogen/Creatinine (Bld) [Mass ratio] 50 High 9 - 20 [facility] COVID-19, Rapidon 10-05-2021 SARS-CoV-2 (COVID-19) RNA LADAN+probe Ql (Unsp spec) Not detected Not Detected [facility] Comment on above: Rapid NAAT: The specimen is NEGATIVE for SARS-CoV-2, the novel coronavirus associated with COVID-19. The ID NOW COVID-19 assay is designed to detect the virus that causes COVID-19 in patients with signs and symptoms of infection who are suspected of COVID-19. An individual without symptoms of COVID-19 and who is not shedding SARS-CoV-2 virus would expect to have a negative (not detected) result in this assay. Negative results should be treated as presumptive and, if inconsistent with clinical signs and symptoms or necessary for patient management, should be tested with an alternative molecular assay. Negative results do not preclude SARS-CoV-2 infection and should not be used as the sole basis for patient management decisions. Fact sheet for Healthcare Providers: https://www.fda.gov/media/979209/download Fact sheet for Patients: https://www.fda.gov/media/135113/download Methodology: Isothermal Nucleic Acid Amplification Specimen Description .NASOPHARYNGEAL SWAB [facility] CT Head WO Contraston 2021 No acute intracrania l abnormality. Findings were discussed with ELIECER BURRIS at 2:38 pm on 10/05/2021. [facility] RIS CONSOLIDATED EXAMINATION: CT OF THE HEAD WITHOUT CONTRAST 10/05/2021 2:29 pm TECHNIQUE: CT of the head was performed without the administration of intravenous contrast. Automated exposure control, iterative reconstruction, and/or weight based adjustment of the mA/kV was utilized to reduce the radiation dose to as low as reasonably achievable. COMPARISON: CT brain performed 09/04/2019. HISTORY: ORDERING SYSTEM PROVIDED HISTORY: Dysarthria TECHNOLOGIST PROVIDED HISTORY: Dysarthria Decision Support Exception - unselect if not a suspected or confirmed emergency medical condition->Emergency Medical Condition (MA) FINDINGS: BRAIN/VENTRICLES: There is no acute intracranial hemorrhage, mass effect, or midline shift. There is satisfactory overall kevin-white matter differentiation. The ventricular structures are symmetric and unremarkable. The infratentorial structures are unremarkable. ORBITS: The visualized portion of the orbits demonstrate no acute abnormality. SINUSES: The visualized paranasal sinuses and mastoid air cells demonstrate no acute abnormality. SOFT TISSUES/SKULL: No acute abnormality of the visualized skull or soft tissues. [facility] CONSOLID[facility] Kel Hennessy MD - 10/05/2021 EXAMINATION: CT OF THE HEAD WITHOUT CONTRAST 10/05/2021 2:29 pm TECHNIQUE: CT of the head was performed without the administration of intravenous contrast. Automated exposure control, iterative reconstruction, and/or weight based adjustment of the mA/kV was utilized to reduce the radiation dose to as low as reasonably achievable. COMPARISON: CT brain performed 09/04/2019. HISTORY: ORDERING SYSTEM PROVIDED HISTORY: Dysarthria TECHNOLOGIST PROVIDED HISTORY: Dysarthria Decision Support Exception - unselect if not a suspected or confirmed emergency medical condition->Emergency Medical Condition (MA) FINDINGS: BRAIN/VENTRICLES: There is no acute intracranial hemorrhage, mass effect, or midline shift. There is satisfactory overall kevin-white matter differentiation. The ventricular structures are symmetric and unremarkable. The infratentorial structures are unremarkable. ORBITS: The visualized portion of the orbits demonstrate no acute abnormality. SINUSES: The visualized paranasal sinuses and mastoid air cells demonstrate no acute abnormality. SOFT TISSUES/SKULL: No acute abnormality of the visualized skull or soft tissues. IMPRESSION: No acute intracranial abnormality. Findings were discussed with ELIECER BURRIS at 2:38 pm on 10/05/2021. [facility] Phone: Radiology Study observation (narrative) [facility] Phone: CT Head WO ContrastOrdered B y: Kel Hennessy on 10-05-2021 [facility] Phone: CTA HEAD NECK W CONTRASTon 0 10-05-2021 No acute abnormality or flow limiting stenosis of the major arteries of the head and neck. 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 [facility] CONSOLIDATED EXAMINATION: CTA OF THE HEAD AND NECK WITH CONTRAST 10/05/2021 3:38 pm: TECHNIQUE: CTA of the head and neck was performed with the administration of intravenous contrast. Multiplanar reformatted images are provided for review. MIP images are provided for review. Stenosis of the internal carotid arteries measured using NASCET criteria. Automated exposure control, iterative reconstruction, and/or weight based adjustment of the mA/kV was utilized to reduce the radiation dose to as low as reasonably achievable. COMPARISON: Noncontrast CT head from earlier today, CTA head and neck dated September 02, 2020 HISTORY: ORDERING SYSTEM PROVIDED HISTORY: Requested by teleneuro TECHNOLOGIST PROVIDED HISTORY: Requested by teleneClarient Decision Support Exception - unselect if not a suspected or confirmed emergency medical condition->Emergency Medical Condition (MA) FINDINGS: CTA NECK: AORTIC ARCH/ARCH VESSELS: No dissection or arterial injury. No significant stenosis of the brachiocephalic or subclavian arteries. CAROTID ARTERIES: No dissection, arterial injury, or hemodynamically significant stenosis by NASCET criteria. VERTEBRAL ARTERIES: No dissection, arterial injury, or significant stenosis. SOFT TISSUES: The lung apices are clear. No cervical or superior mediastinal lymphadenopathy. The larynx and pharynx are unremarkable. No acute abnormality of the salivary and thyroid glands. BONES: No acute osseous abnormality. CTA HEAD: ANTERIOR CIRCULATION: There is hypoplastic A1 segment of the right SHARRI, normal variant. No significant stenosis of the intracranial internal carotid, anterior cerebral, or middle cerebral arteries. There is 2 mm prominent infundibulum versus saccular aneurysm at the origin of the A2 segment of the left SHARRI, stable. 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 No significant stenosis of the vertebral, basilar, or posterior cerebral arteries. No aneurysm. OTHER: No dural venous sinus thrombosis on this non-dedicated study. BRAIN: No mass effect or midline shift. No extra-axial fluid collection. The kevin-white differentiation is maintained. [facility] CON[facility] Baldev Miller MD - 10/05/2021 EXAMINATION: CTA OF THE HEAD AND NECK WITH CONTRAST 10/05/2021 3:38 pm: TECHNIQUE: CTA of the head and neck was performed with the administration of intravenous contrast. Multiplanar reformatted images are provided for review. MIP images are provided for review. Stenosis of the internal carotid arteries measured using NASCET criteria. Automated exposure control, iterative reconstruction, and/or weight based adjustment of the mA/kV was utilized to reduce the radiation dose to as low as reasonably achievable. COMPARISON: Noncontrast CT head from earlier today, CTA head and neck dated September 02, 2020 HISTORY: ORDERING SYSTEM PROVIDED HISTORY: Requested by teleneuro TECHNOLOGIST PROVIDED HISTORY: Requested by teleneuro Decision Support Exception - unselect if not a suspected or confirmed emergency medical condition->Emergency Medical Condition (MA) FINDINGS: CTA NECK: AORTIC ARCH/ARCH VESSELS: No dissection or arterial injury. No significant stenosis of the brachiocephalic or subclavian arteries. CAROTID ARTERIES: No dissection, arterial injury, or hemodynamically significant stenosis by NASCET criteria. VERTEBRAL ARTERIES: No dissection, arterial injury, or significant stenosis. SOFT TISSUES: The lung apices are clear. No cervical or superior mediastinal lymphadenopathy. The larynx and pharynx are unremarkable. No acute abnormality of the salivary and thyroid glands. BONES: No acute osseous abnormality. CTA HEAD: ANTERIOR CIRCULATION: There is hypoplastic A1 segment of the right SHARRI, normal variant. No significant stenosis of the intracranial internal carotid, anterior cerebral, or middle cerebral arteries. There is 2 mm prominent infundibulum versus saccular aneurysm at the origin of the A2 segment of the left SHARRI, stable. 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 No significant stenosis of the vertebral, basilar, or posterior cerebral arteries. No aneurysm. OTHER: No dural venous sinus thrombosis on this non-dedicated study. BRAIN: No mass effect or midline shift. No extra-axial fluid collection. The kevin-white differentiation is maintained. IMPRESSION: No acute abnormality or flow limiting stenosis of the major arteries of the head and neck. 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 [facility] Phone: Radiology Study observation (narrative) [facility] Phone: CTA HEAD NECK W CONTRASTOrde red By: Baldev Miller on 10-05-2021 [facility] Phone: Glucose, Whole Bloodon 10-05 Glucose [Mass/Vol] 109 mg/dL High 74 - 100 mg/dL [facility] Interpretation and review of laboratory results Abnormal [facility] Laboratory - Chemistry and C hemistry - challengeon 10-05-2021 GFR/1.73 sq M.predicted MDRD (S/P/Bld) [Vol rate/Area] [facility] Comment on above: Average GFR for 70 o r more years old: 75 mL/min/1.73sq m Chronic Kidney Disease: <60 mL/min/1.73sq m Kidney failure: <15 mL/min/1.73sq m eGFR calculated using average adult body mass. Additional eGFR calculator available at: http://www.[employer]/CrowdMob_crcl_2011.htm Stage 1: Some kidney damage normal GFR Stage 2: Mild kidney damage GFR 60-89 Stage 3: Moderate kidney damage GFR 30-59 Stage 4: Severe kidney damage GFR 15-29 Stage 5: Severe kidney damage GFR <15 ESRD - chronic treatment by dialysis or transplant Magnesiumon 10-05-2021 Magnesium [Mass/Vol] 1.9 mg/dL 1.6 - 2 .6 mg/dL [facility] No Panel Informationon 10-05 [facility] POCT glucoseon 10-05-2021 Glucose [Mass/Vol] 109 mg/dL [facility] Work Phone: Interpretation and review of laboratory results Normal [facility] Work Phone: QC OK? y [facility] Work Phone: [facility] Work Phone: Troponinon 10-05-2021 Troponin, High Sensitivity 13 ng/L 0 - 14 ng/L [facility] Comment on above: High Sensitivity Troponin values cannot be compared with other Troponin methodologies. Patients with high levels of Biotin oral intake (i.e >5mg/day) may have falsely decreased Troponin levels. Samples collected within 8 hours of biotin intake may require additional information for diagnosis. [facility] Urinalysis with Microscopico n 10-05-2021 Bacteria, UA TRACE Abnormal None [facility] Bilirubin Urine Negative NEGATIVE [facility] Color, UA Yellow Yellow [facility] Epithelial Cells UA 0 TO 2 [facility] Glucose, Ur Negative NEGATIVE [facility] Interpretation and review of laboratory results Abnormal [facility] Ketones Ql (U) Negative NEGATIVE [facility] Leukocyte esterase Test strip Ql (U) SMALL Abnormal NEGATIVE [facility] Nitrite, Urine Negative NEGATIVE [facility] pH, UA 7.0 5 - 9 [facility] Protein, UA Negative NEGATIVE [facility] RBC, UA None [facility] Specific [place], UA Low 1.01 - 1.02 [facility] Turbidity UA Clear Clear [facility] Urine Hgb Negative NEGATIVE [facility] Urobilinogen, Urine Normal Normal [facility] WBC, UA 2 TO 5 [facility] XR CHEST PORTABLEon 10-06-19 No acute process. [facility] CON[facility] EXAMINATION: ONE XRAY VIEW OF THE CHEST 10/05/2021 11:34 am COMPARISON: 06/28/2009 HISTORY: ORDERING SYSTEM PROVIDED HISTORY: Dyspnea TECHNOLOGIST PROVIDED HISTORY: Dyspnea FINDINGS: The lungs are without acute focal process. Stable small calcified granuloma in the left apex. There is no effusion or pneumothorax. The cardiomediastinal silhouette is stable. The osseous structures are stable. [facility] CON[facility] Mikael Valdes MD - 10/05/2021 EXAMINATION: ONE XRAY VIEW OF THE CHEST 10/05/2021 11:34 am COMPARISON: 06/28/2009 HISTORY: ORDERING SYSTEM PROVIDED HISTORY: Dyspnea TECHNOLOGIST PROVIDED HISTORY: Dyspnea FINDINGS: The lungs are without acute focal process. Stable small calcified granuloma in the left apex. There is no effusion or pneumothorax. The cardiomediastinal silhouette is stable. The osseous structures are stable. IMPRESSION: No acute process. [facility] Work Phone: Radiology Study observation (narrative) [facility] Work Phone: XR CHEST PORTABLEOrdered By: Mikael Valdes on 10-05-2021 [facility] Work Phone: BUNon 07-22-2021 Urea nitrogen (BldV) [Mass/Vol] 33 mg/dL High 8 - 23 mg/dL [facility] Brain Natriuretic Peptideon 07-22-2021 Natriuretic peptide B (Bld) [Mass/Vol] 186 pg/mL <300 [facility] Comment on above: An age-independent cutoff point of 300 pg/ml has a 98% negative predictive value excluding acute heart failure. CBCon 07-22-2021 Hematocrit (Bld) [Volume fraction] 37.0 % 36.3 - 47.1 % [facility] Hemoglobin (Bld) [Mass/Vol] 11.7 g/dL Low 11.9 - 15.1 g/dL [facility] Interpretation and review of laboratory results Abnormal [facility] MCH (RBC) [Entitic mass] 29.5 pg 25.2 - 33.5 pg [facility] MCHC (RBC) [Mass/Vol] 31.6 g/dL 28.4 - 34.8 g/dL [facility] MCV (RBC) [Entitic vol] 93.2 fL 82.6 - 102.9 fL [facility] NRBC Automated 0.0 0.0 per 100 WBC [facility] Platelet distribution width (Bld) [Ratio] 13.8 % 11.8 - 14.4 % [facility] Platelet mean volume (Bld) [Entitic vol] 10.2 fL 8.1 - 13.5 fL [facility] Platelets (Bld) [#/Vol] 191 10*3/uL [facility] RBC (Bld) [#/Vol] 3.97 10*6/uL 3.95 - 5.1 1 m/uL [facility] WBC (Bld) [#/Vol] 5.3 10*3/uL [facility] Creatinineon 07-22-2021 Creatinine [Mass/Vol] 0.69 mg/dL 0.50 - 0.90 mg/dL [facility] GFR >60 >60 mL/min [facility] GFR Non- >60 >60 mL/min [facility] Electrolyte Panelon 07-23-19 Anion gap [Moles/Vol] 8 mmol/L Low 9 - 17 mmol/L [facility] Chloride [Moles/Vol] 107 mmol/L 98 - 10 7 mmol/L [facility] CO2 [Moles/Vol] 27 mmol/L 20 - 31 mmol/L [facility] Potassium [Moles/Vol] 4.2 mmol/L 3.7 - 5.3 mmol/L [facility] Sodium [Moles/Vol] 142 mmol/L 135 - 144 mmol/L [facility] Laboratory - Chemistry and C hemistry - challengeon 07-22-2021 GFR/1.73 sq M.predicted MDRD (S/P/Bld) [Vol rate/Area] [facility] Comment on above: Average GFR for 70 o r more years old: 75 mL/min/1.73sq m Chronic Kidney Disease: <60 mL/min/1.73sq m Kidney failure: <15 mL/min/1.73sq m eGFR calculated using average adult body mass. Additional eGFR calculator available at: http://www.[employer]/multiple_crcl_2012.htm Stage 1: Some kidney damage normal GFR Stage 2: Mild kidney damage GFR 60-89 Stage 3: Moderate kidney damage GFR 30-59 Stage 4: Severe kidney damage GFR 15-29 Stage 5: Severe kidney damage GFR <15 ESRD - chronic treatment by dialysis or transplant No Panel Informationon 07-22 Interpretation and review of laboratory results Abnormal [facility] VL DUP LOWER EXTREMITY VENOU S LEFTon 03-04-2021 Result, Unknown Provider - 03/04/2021 [facility] Vascular Lower Extremities DVT Study Procedure Patient Name SPENCER Date of Study 03/03/2021 EVER Mckay Date of 1940 Gender Female Age 80 year(s) Race Room Number Corporate ID [id number] # Patient Acct [id number] # MR # [id number] Communication Spec Katie Jackson, SULEIMAN Interpreting Physician Alissa Marx Referring Referring Physician Alissa Marx Nurse Practitioner Additional Comments REsults were reported to Dr. Marx's office 03/03/2021 @ 8697. Procedure Type of Study: Veins: Lower Extremities DVT Study, Venous Scan Lower Left. Indications for Study:Leg Swelling. Patient Status:STAT. Technical Quality:Adequate visualization. Comments:Simultaneous real time imaging utilizing B-Mode, color doppler and spectral waveform analysis was performed on the left lower extremity for venous examination of the deep and superficial systems. Conclusions Summary No evidence of deep venous thrombosis in the left lower extremity. Signature Left Impression: The common femoral, superficial and deep femoral, popliteal, tibials, peroneal, and saphenous veins were evaluated. The GSV was not visualized from the knee to the ankle, patient reports having a venous procedure done approximately 7 years ago. All veins were compressible with normal doppler responses. Velocities are measured in cm/s ; Diameters are measured in cm Right Lower Extremities DVT Study Measurements Right 2D Measurements + +------ ----+ +- --------- + !Location !Visualized!Compressib ility!Thrombosis! + +------ ----+ +- --------- + !Common Femoral !Yes !Yes !None ! + +------ ----+ +- --------- + !Prox Femoral !Yes !Yes !None ! + +------ ----+ +- --------- + !Mid Femoral !Yes !Yes !None ! + +------ ----+ +- --------- + !Dist Femoral !Yes !Yes !None ! + +------ ----+ +- --------- + !Deep Femoral !Yes !Yes !None ! + +------ ----+ +- --------- + !Popliteal !Yes !Yes !None ! + +------ ----+ +- --------- + !Sapheno Femoral Junction !Yes !Yes !None ! + +------ ----+ +- --------- + !PTV !Yes !Yes !None ! + +------ ----+ +- --------- + !Peroneal !Yes !Yes !None ! + +------ ----+ +- --------- + !Gastroc !Yes !Yes !None ! + +------ ----+ +- --------- + !GSV Thigh !Yes !Yes !None ! + +------ ----+ +- --------- + !GSV Knee !No ! ! ! + +------ ----+ +- --------- + !GSV Ankle !No ! ! ! + +------ ----+ +- --------- + !SSV !Yes !Yes !None ! + +------ ----+ +- --------- + Right Doppler Measurements + -----+---------+------ + --------- + !Location !Signal !Reflux!Reflux (msec) ! + -----+---------+------ + --------- + !Common Femoral !Pulsatile! ! ! + -----+---------+------ + --------- + !Prox Femoral !Pulsatile! ! ! + -----+---------+------ + --------- + !Popliteal !Phasic ! ! ! + -----+---------+------ + --------- + [facility] Phone: DUP LOWER EXTREMITY VENOU S LEFTOrdered By: Unknown Result on 03-04-2021 [place] DUP LOWER EXTREMITY VENOU S LEFTon 03-03-2021 Radiology Study observation (narrative) [facility] Phone: IR ANGIOGRAM CAROTID CEREBRA L BILATERALon 12-06-2020 IR ANGIOGRAM CAROTID CEREBRAL BILATERAL ADDENDUM #1 This is an addendum: Please note that the procedure was performed with IV moderate sedation. IV Moderate Conscious Anesthesia Sedation was supervised by Dr Lomax for a total of 75 mins. The patient was independently monitored by an assigned registered RN using automated BP, EKG, and pulse oximetry continuous monitoring. The detailed conscious sedation record including Start and End times, meds given are permanently stored in the Hospital Information System. Meds given versed, and fentanyl sed start and end times [address] Christie dictated this invasive procedure. Dr. Josesito Lomax was present for all procedural and imaging components of this case. Examination was reviewed and reported findings confirmed and evaluated by Dr. Lomax. Final report electronically signed by Kristina Lomax M.D. on 12/06/2020 4:35 PM ORIGINAL REPORT Date of Service: 09/02/2020 Procedure: Diagnostic cerebral angiogram Patient arrived to the angio suite at: 08:10 Puncture obtained at: 08:45 Vascular access was removed at: 09:33 Manual pressure for minutes: 10 Patient wheeled out of the angio suite at: 10:30 Diagnosis: Acom artery aneurysm Procedures: 1. Intravenous moderate sedation for 50 minutes 2. Selective left common carotid artery (CCA) angiogram 3. Selective left internal carotid artery (ICA) cerebral angiogram 4.3d rotational angiography 5. Right common femoral artery ([place]EEPER HEAD) angiogram Neurointerventionalist : Josesito Lomax MD, MS [place]: Pantera Mcdonald MD PhD Ralf Christie MD Contrast: 64 cc of Visipaque-270. Fluoroscopy time: 9.9 minutes Access: Right common femoral artery. Comparison: CTA neck Consent: After explaining the risks and benefits to the patient and the patient's family, including but not limited to stroke, coma, , vessel injury, dissection, tear, occlusion, and X-ray dye allergic type reaction, a signed consent form was obtained. Indication and Clinical History: is a 79 y/o F with past medical history significant for TIA, hypertension, diabetes presented today to [facility] for diagnostic cerebral angiogram to assess dysplastic ACOM artery vs aneurysm. Anesthesia: Anesthesia/sedation initiated at: 08:20 Anesthesia/sedation completed at: 08:25 Total anesthesia/sedation: 5 mins. Local anesthesia with lidocaine. Description and findings: The patient's right groin was prepped and draped in standard sterile fashion and under local anesthesia with conscious sedation. Fluoroscopy was used to localize the right common femoral artery, which was then accessed with a micropuncture technique, and a 5 Venezuelan intravascular sheath was placed within the right common femoral artery, establishing arterial access using Seldinger technique. 2000u of heparin IV was administered. A 5 [place] multipurpose catheter was then advanced over a guide wire to the level of the aortic arch. Left CCA technique: The left common carotid artery was selectively catheterized under fluoroscopic guidance and digital subtraction angiography images were obtained in biplane projections of the left cervical common carotid artery. Interpretation: The left common carotid artery injection demonstrates normal antegrade flow into the external and internal carotid arteries with normal filling of the external carotid artery branches. Caliber and lumen contour of the cervical portion of the left internal carotid artery are unremarkable. 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 Further inspection demonstrates no other evidence of dissection, stenosis, aneurysm, or other vascular abnormality within the left CCA into the cervical segment of the left ICA. Left ICA technique: The left internal carotid artery was then selectively catheterized, and digital subtraction angiography of the intracranial left internal carotid artery circulation was performed in frontal and lateral projections. Interpretation: There is normal antegrade filling of the distal internal carotid artery, ophthalmic artery, anterior cerebral artery, middle cerebral artery and distal branches. 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 Small aneurysm was seen at the origin of the left SHARRI A-2 segment. No evidence of aneurysm in Middle cerebral artery vasculature. Inspection of the remaining left internal carotid artery circulation revealed no other evidence of cerebral aneurysm, arteriovenous malformation, or arterial stenosis. Capillary and venous phase images were also unremarkable, with no evidence of veno-occlusive disease. 3-D rotational Left internal carotid cerebral angiogram: A 3-D rotation of cerebral angiogram was performed with a left ICA injection using a power injector to better visualize the aneurysmal morphology and for surgical planning. This was interpreted (more content not included)... Normal [facility] [facility] HEMOGLOBIN AND HEMATOCRIT, B LOODOrdered By: King Monteiro on 09-04-2020 Hematocrit (Bld) [Volume fraction] 30.5 % Low 36.3 - 47.1 % [facility] Phone: Hemoglobin.gastrointes tinal spec 1 Ql (Stl) 9.7 g/dL Low 11.9 - 15.1 g/dL [facility] Phone: Interpretation and review of laboratory results Abnormal [facility] Phone: [facility] [employer] Work Phone: Hgb/Hcton 09-04-2020 Hematocrit (Bld) [Volume fraction] 30.5 % Low 36.3-47.1 [facility] Comment on above: Performed By: #### H H ####[address] [place] [address] Lab Director: Wellington Back MD Hemoglobin (Bld) [Mass/Vol] 9.7 g/dL Low 11.9-15.1 [facility] Comment on above: Performed By: #### H H ####[address] [place], [place] [phone] Director: Wellington Back MD Hematocrit (Bld) [Volume fraction] 30.2 % Low 36.3-47.1 [facility] Comment on above: Performed By: #### H H ####[address] [phone] Director: Wellington Back MD Hemoglobin (Bld) [Mass/Vol] 9.4 g/dL Low 11.9-15.1 [facility] Comment on above: Performed By: #### H H ####[address] [phone] Director: Wellington Back MD Basic Metab w/rfx MGon 09-03 (cont.) Normal [facility] Comment on above: Result Comment: Aver age GFR for 70 or more years old: 75 mL/min/1.73sq m Chronic Kidney Disease: <60 mL/min/1.73sq m Kidney failure: <15 mL/min/1.73sq m eGFR calculated using average adult body mass. Additional eGFR calculator available at: http://www.[employer]/multiple_crcl_2012.htm Performed By: #### R EJEC, BMPX #### [facility] [place] [address] Cotton Feeder: Wellington Back MD Anion gap [Moles/Vol] 12 mmol/L Normal 9-17 [facility] Comment on above: Performed By: #### R HEBER, BMPX #### [facility] [employer] [address] [place] [phone] Cotton Feeder: Wellington Back MD Calcium [Mass/Vol] 8.2 mg/dL Low 8.6-10.4 [facility] Comment on above: Performed By: #### R EJPHILLIP, BMPX #### [facility] [employer] [address] [place] [phone] Cotton Feeder: Wellington Back MD Chloride [Moles/Vol] 106 mmol/L Normal 98-107 [facility] Comment on above: Performed By: #### R HEBER, BMPX #### [facility] [employer] [address] [place] [phone] Cotton Feeder: Wellington Back MD CO2 [Moles/Vol] 21 mmol/L Normal 20-31 [facility] Comment on above: Performed By: #### R HEBER, BMPX #### [facility] [employer] [address] [place] [phone] Cotton Feeder: Wellington Back MD Creatinine [Mass/Vol] 0.50 mg/dL Normal 0.50-0.90 [facility] Comment on above: Performed By: #### R EJEC, BMPX #### [facility] [employer] [address] [place] [address] Cotton Feeder: Wellington Back MD GFR, Amer >60 Normal >60 [facility] Comment on above: Performed By: #### R EJEC, BMPX #### [facility] [employer] [address] [place] [phone] Cotton Feeder: Wellington Back MD GFR,non Amer >60 Normal >60 [facility] Comment on above: Performed By: #### R EJEC, BMPX #### [facility] [employer] [address] [place] [phone] Cotton Feeder: Wellington Back MD Glucose [Mass/Vol] 94 mg/dL Normal 70-99 [facility] Comment on above: Performed By: #### R EJEC, BMPX #### [facility] [employer] [address] [place] [phone] Cotton Feeder: Wellington Back MD Potassium [Moles/Vol] 4.7 mmol/L Normal 3.7-5.3 [facility] Comment on above: Result Comment: SPEC IMEN SLIGHTLY HEMOLYZED, RESULTS MAY BE ADVERSELY AFFECTED. Performed By: #### R EJEC, BMPX #### [facility] [employer] [address] [place] [phone] Cotton Feeder: Wellington Back MD Sodium [Moles/Vol] 139 mmol/L Normal 135-144 [facility] Comment on above: Performed By: #### R EJEC, BMPX #### [facility] [employer] [address] [place] [address] Cotton Feeder: Wellington Back MD Urea nitrogen [Mass/Vol] 12 mg/dL Normal 8-23 [facility] Comment on above: Performed By: #### R EJEC, BMPX #### [facility] [employer] [address] [place] [address] Cotton Feeder: Wellington Back MD BUN/CRE Ratio NOT REPORTED Normal 9-20 [facility] Comment on above: Performed By: #### R EJEC, BMPX #### [facility] [employer] [address] [place] [phone] Cotton Feeder: Wellington Back MD Staging: NOT REPORTED Normal [facility] Comment on above: Performed By: #### R EJEC, BMPX #### [facility] [employer] [address] [place] [address] Cotton Feeder: Wellington Back MD (cont.) Normal [facility] Comment on above: Result Comment: Aver age GFR for 70 or more years old: 75 mL/min/1.73sq m Chronic Kidney Disease: <60 mL/min/1.73sq m Kidney failure: <15 mL/min/1.73sq m eGFR calculated using average adult body mass. Additional eGFR calculator available at: http://www.[employer]meeting/multiple_crcl_2012.htm Performed By: #### B MPX, PROL, TSHX, LIPR #### [address] [address] Cotton Feeder: Wellington Back MD Anion gap [Moles/Vol] 16 mmol/L Normal 9-17 [facility] Comment on above: Performed By: #### B MPX, PROL, TSHX, LIPR #### [address] [address] Cotton Feeder: Wellington Back MD Calcium [Mass/Vol] 8.7 mg/dL Normal 8.6-10.4 [facility] Comment on above: Performed By: #### B MPX, PROL, TSHX, LIPR #### [address] [address] Cotton Feeder: Wellington Back MD Chloride [Moles/Vol] 100 mmol/L Normal 98-107 [facility] Comment on above: Performed By: #### B MPX, PROL, TSHX, LIPR #### [facility] [employer] [address] [place] [address] Cotton Feeder: Wellington Back MD CO2 [Moles/Vol] 20 mmol/L Normal 20-31 [facility] Comment on above: Performed By: #### B MPX, PROL, TSHX, LIPR #### [facility] [employer] [address] [place] [address] Cotton Feeder: Wellington Back MD Creatinine [Mass/Vol] 0.70 mg/dL Normal 0.50-0.90 [facility] Comment on above: Performed By: #### B MPX, PROL, TSHX, LIPR #### [address] [address] Cotton Feeder: Wellington Back MD GFR, Amer >60 Normal >60 [facility] Comment on above: Performed By: #### B MPX, PROL, TSHX, LIPR #### [address] [address] Cotton Feeder: Wellington Back MD GFR,non Amer >60 Normal >60 [facility] Comment on above: Performed By: #### B MPX, PROL, TSHX, LIPR #### [address] [address] Cotton Feeder: Wellington Back MD Glucose [Mass/Vol] 109 mg/dL High 70-99 [facility] Comment on above: Performed By: #### B MPX, PROL, TSHX, LIPR #### [facility] [employer] [address] [place] [address] Cotton Feeder: Wellington Back MD Potassium [Moles/Vol] 4.5 mmol/L Normal 3.7-5.3 [facility] Comment on above: Performed By: #### B MPX, PROL, TSHX, LIPR #### [facility] [employer] [address] [place] [phone] Cotton Feeder: Wellington Back MD Sodium [Moles/Vol] 136 mmol/L Normal 135-144 [facility] Comment on above: Performed By: #### B MPX, PROL, TSHX, LIPR #### [facility] [employer] [address] [place] [phone] Cotton Feeder: Wellington Back MD Urea nitrogen [Mass/Vol] 19 mg/dL Normal 8-23 [facility] Comment on above: Performed By: #### B MPX, PROL, TSHX, LIPR #### [employer] [address] [place] [address] Cotton Feeder: Wellington Back MD Basic Metabolic Panel w/ Ref rima to MGOrdered By: Ralf Christie on 09-03-2020 Anion gap [Moles/Vol] 12 mmol/L 9 - 17 mmol/L [facility] Phone: Calcium [Mass/Vol] 8.2 mg/dL Low 8.6 - 10. 4 mg/dL [facility] Phone: Chloride [Moles/Vol] 106 mmol/L 98 - 10 7 mmol/L [facility] Phone: CO2 [Moles/Vol] 21 mmol/L 20 - 31 mmol/L [facility] Phone: Creatinine [Mass/Vol] 0.5 mg/dL 0.50 - 0.90 mg/dL [facility] Phone: GFR >60 >60 mL/min [employer] Phone: GFR Non- >60 >60 mL/min [facility] Phone: GFR/1.73 sq M.predicted MDRD (S/P/Bld) [Vol rate/Area] [facility]ish Phone: Comment on above: Average GFR for 70 o r more years old: 75 mL/min/1.73sq m Chronic Kidney Disease: <60 mL/min/1.73sq m Kidney failure: <15 mL/min/1.73sq m eGFR calculated using average adult body mass. Additional eGFR calculator available at: http://www.[employer]/multiple_crcl_2012.htm GFR/1.73 sq M.predicted MDRD (S/P/Bld) [Vol rate/Area] NOT REPORTED [facility] Phone: Glucose [Mass/Vol] 94 mg/dL 70 - 99 mg/dL [facility] Phone: Interpretation and review of laboratory results Abnormal [facility] Phone: Potassium [Moles/Vol] 4.7 mmol/L 3.7 - 5.3 mmol/L [facility] Phone: Comment on above: SPECIMEN SLIGHTLY HE MOLYZED, RESULTS MAY BE ADVERSELY AFFECTED. Sodium [Moles/Vol] 139 mmol/L 135 - 144 mmol/L [facility] Phone: Urea nitrogen (BldV) [Mass/Vol] 12 mg/dL 8 - 23 mg/dL [facility] Phone: Urea nitrogen/Creatinine (Bld) [Mass ratio] NOT REPORTED [facility] Phone: [facility] Phone: Basic Metabolic Panel w/ Ref rima to MGOrdered By: Suraj Peters on 09-03-2020 Anion gap [Moles/Vol] 16 mmol/L 9 - 17 mmol/L [facility] Phone: Calcium [Mass/Vol] 8.7 mg/dL 8.6 - 10. 4 mg/dL [facility] Phone: Chloride [Moles/Vol] 100 mmol/L 98 - 10 7 mmol/L [facility] Phone: CO2 [Moles/Vol] 20 mmol/L 20 - 31 mmol/L [facility] Phone: Creatinine [Mass/Vol] 0.7 mg/dL 0.50 - 0.90 mg/dL [facility] Phone: GFR >60 >60 mL/min [employer] Phone: GFR Non- >60 >60 mL/min [facility] Phone: GFR/1.73 sq M.predicted MDRD (S/P/Bld) [Vol rate/Area] [facility]ish Phone: Comment on above: Average GFR for 70 o r more years old: 75 mL/min/1.73sq m Chronic Kidney Disease: <60 mL/min/1.73sq m Kidney failure: <15 mL/min/1.73sq m eGFR calculated using average adult body mass. Additional eGFR calculator available at: http://www.[employer]meeting/multiple_crcl_2012.htm GFR/1.73 sq M.predicted MDRD (S/P/Bld) [Vol rate/Area] NOT REPORTED [facility] Phone: Glucose [Mass/Vol] 109 mg/dL High 70 - 99 mg/dL [facility] Phone: Interpretation and review of laboratory results Abnormal [facility] Phone: Potassium [Moles/Vol] 4.5 mmol/L 3.7 - 5.3 mmol/L [facility] Phone: Sodium [Moles/Vol] 136 mmol/L 135 - 144 mmol/L [facility] Phone: Urea nitrogen (BldV) [Mass/Vol] 19 mg/dL 8 - 23 mg/dL [facility] Phone: Urea nitrogen/Creatinine (Bld) [Mass ratio] NOT REPORTED [facility] Phone: CBC WITH AUTO DIFFERENTIALOr dered By: King Monteiro on 09-03-2020 Absolute Eos # 0.05 [employer] [facility] Work Phone: Absolute Immature Granulocyte 0.03 [employer] Work Phone: Absolute Lymph # 1.01 Low [employer] [facility] Work Phone: Absolute Carter # 1.26 High [employer] [facility] Work Phone: Basophils (Bld) [#/Vol] 10*3/uL [employer] Work Phone: Basophils/100 WBC (Bld) 0 % 0 - 2 % [facility] Phone: Differential Type NOT REPORTED [facility] Phone: Eosinophils/100 WBC (Bld) 1 % 1 - 4 % [facility] Phone: Hematocrit (Bld) [Volume fraction] 30.2 % Low 36.3 - 47.1 % [facility] Phone: Hemoglobin.gastrointes tinal spec 1 Ql (Stl) 9.8 g/dL Low 11.9 - 15.1 g/dL [facility] Phone: Immature granulocytes/100 WBC (Bld) 0 % 0 [facility] Phone: Interpretation and review of laboratory results Abnormal [facility] Phone: Lymphocytes/100 WBC (Bld) 14 % Low 24 - 43 % [facility] Phone: MCH (RBC) [Entitic mass] 29.7 pg 25.2 - 33.5 pg [facility] Phone: MCHC (RBC) [Mass/Vol] 32.5 g/dL 28.4 - 34.8 g/dL [facility] Phone: MCV (RBC) [Entitic vol] 91.5 fL 82.6 - 102.9 fL [facility] Phone: Monocytes/100 WBC (Bld) 17 % High 3 - 12 % [facility] Phone: NRBC Automated 0.0 0.0 per 100 WBC [facility] Phone: Platelet distribution width (Bld) [Ratio] 14.8 % High 11.8 - 14.4 % [facility] Phone: Platelet mean volume (Bld) [Entitic vol] NOT REPORTED 8.1 - 13.5 fL [facility] Phone: Platelets (Bld) [#/Vol] See Reflexed IPF Result [facility] Phone: RBC (Bld) [#/Vol] 3.30 10*6/uL Low 3.95 - 5.1 1 m/uL [facility] Phone: RBC (Bld) [#/Vol] ANISOCYTOSIS PRESENT [facility] Phone: Segmented neutrophils/100 WBC (Bld) 67 % High 36 - 65 % [facility] Phone: Segs Absolute 4[employer]86 [employer] Work Phone: WBC (Bld) [#/Vol] 7.2 10*3/uL [facility] Phone: WBC (Bld) [#/Vol] NOT REPORTED [facility]ish Phone: [facility] Phone: CBC with Diffon 09-03-2020 Abs. Basophil <0.03 Normal 0.00-0.20 [facility] Comment on above: Performed By: #### C DP, IPF ####[facility] [address] [place] [address] Lab Director: Wellington Back MD Abs.Imm.Granulocyte 0.03 k/uL Normal 0.00-0.30 [facility] Comment on above: Performed By: #### C DP, IPF ####[facility] [place] [address] Lab Director: Wellington Back MD Abs.Neutrophil (Seg) 4.86 k/uL Normal 1.50-8.10 [facility] Comment on above: Performed By: #### C DP, IPF ####[facility] [address] [place] [address] Lab Director: Wellington Back MD Basophils/100 WBC (Bld) 0 % Normal 0-2 [facility] Comment on above: Performed By: #### C DP, IPF ####[place], [place] [address])[phone] Director: Wellington Back MD Eosinophils (Bld) [#/Vol] 0.05 10*3/uL Normal 0.00-0.44 [facility] Comment on above: Performed By: #### C DP, IPF ####[place], [place] [address])[phone] Director: Wellington Back MD Eosinophils/100 WBC (Bld) 1 % Normal 1-4 [facility] Comment on above: Performed By: #### C DP, IPF ####[place], [place] [address])[phone] Director: Wellington Back MD Erythrocyte distribution width (RBC) [Ratio] 14.8 % High 11.8-14.4 [facility] Comment on above: Performed By: #### C DP, IPF ####[place], [place] [address])[phone] Director: Wellington Back MD Hematocrit (Bld) [Volume fraction] 30.2 % Low 36.3-47.1 [facility] Comment on above: Performed By: #### C DP, IPF ####[place], [place] [address])[phone] Director: Wellington Back MD Hemoglobin (Bld) [Mass/Vol] 9.8 g/dL Low 11.9-15.1 [facility] Comment on above: Performed By: #### C DP, IPF ####[place], [place] [address])[phone] Director: Wellington Back MD Immature granulocytes/100 WBC (Bld) 0 % Normal 0 [facility] Comment on above: Performed By: #### C DP, IPF ####[address], [place] [phone] Director: Wellington Back MD Lymphocytes (Bld) [#/Vol] 1.01 10*3/uL Low 1.10-3.70 [facility] Comment on above: Performed By: #### C DP, IPF ####[address] [phone] Director: Wellington Back MD Lymphocytes/100 WBC (Bld) 14 % Low 24-43 [facility] Comment on above: Performed By: #### C DP, IPF ####[address] [address])[phone] Director: Wellington Back MD MCH (RBC) [Entitic mass] 29.7 pg Normal 25.2-33.5 [facility] Comment on above: Performed By: #### C DP, IPF ####[place], [place] [address])[phone] Director: Wellington Back MD MCHC (RBC) [Mass/Vol] 32.5 g/dL Normal 28.4-34.8 [facility] Comment on above: Performed By: #### C DP, IPF ####[address] [address])[phone] Director: Wellington Back MD MCV (RBC) [Entitic vol] 91.5 fL Normal 82.6-102.9 [facility] Comment on above: Performed By: #### C DP, IPF ####[address] [phone] Director: Wellington Back MD Monocytes (Bld) [#/Vol] 1.26 10*3/uL High 0.10-1.20 [facility] Comment on above: Performed By: #### C DP, IPF ####[place], [place] [phone] Director: Wellington Back MD Monocytes/100 WBC (Bld) 17 % High 3-12 [facility] Comment on above: Performed By: #### C DP, IPF ####[facility] [address] [place] [address] Lab Director: Wellington Back MD Neutrophil (Seg) 67 % High 36-65 [facility] Comment on above: Performed By: #### C DP, IPF ####[facility] [address] [place] [address] Lab Director: Wellington Back MD NRBC Automated 0.0 per 100 WBC Normal 0.0 [facility] Comment on above: Performed By: #### C DP, IPF ####[address] [address] Lab Director: Wellington Back MD Platelet Count See Reflexed IPF Result Normal 138-453 [facility] Comment on above: Performed By: #### C DP, IPF ####[facility] [place] [address] Lab Director: Wellington Back MD RBC (Bld) [#/Vol] 3.30 10*6/uL Low 3.95-5.11 [facility] Comment on above: Performed By: #### C DP, IPF ####[facility] [address] [place] [address] Lab Director: Wellington Back MD RBC morphology finding Nom (Bld) ANISOCYTOSIS PRESENT Normal [facility] Comment on above: Performed By: #### C DP, IPF ####[facility] [address] [place] [address] Lab Director: Wellington Back MD WBC (Bld) [#/Vol] 7.2 10*3/uL Normal 3.5-11.3 [facility] Comment on above: Performed By: #### C DP, IPF ####[facility] [address] [place] [address] Lab Director: Wellington Back MD Auto Diff Performed NOT REPORTED Normal [facility] Comment on above: Performed By: #### C DP, IPF ####[facility] [address] [place] [address] lab Director: Wellington Back MD MPV NOT REPORTED Normal 8.1-13.5 [facility] Comment on above: Performed By: #### C DP, IPF ####[facility] [address] [place] [address] lab Director: Wellington Back MD WBC Morphology NOT REPORTED Normal [facility] Comment on above: Performed By: #### C DP, IPF ####[facility] [place] [address] lab Director: Wellington Back MD CBC with DiffOrdered By: Jason Monteiro on 09-03-2020 Platelet Estimate NOT REPORTED Normal [facility] [employer] Phone: Comment on above: Performed By: #### C DP, IPF ####[address] [address] lab Director: Wellington Back MD CT HEAD WO CONTRASTon 2020 CT HEAD WO CONTRAST EXAMINATION: CT OF THE HEAD WITHOUT CONTRAST 09/03/2020 12:04 pm TECHNIQUE: CT of the head was performed without the administration of intravenous contrast. Dose modulation, iterative reconstruction, and/or weight based adjustment of the mA/kV was utilized to reduce the radiation dose to as low as reasonably achievable. COMPARISON: 09/02/2020, 06/02/2020 HISTORY: ORDERING SYSTEM PROVIDED HISTORY: Follow-up 24-hour CT head post TPA protocol TECHNOLOGIST PROVIDED HISTORY: Follow-up 24-hour CT head post TPA protocol Reason for Exam: Follow-up 24-hour CT head post TPA protocol FINDINGS: BRAIN/VENTRICLES: There is no acute intracranial hemorrhage, mass effect or midline shift. No abnormal extra-axial fluid collection. The brain is unchanged in appearance. ORBITS: The visualized portion of the orbits demonstrate no acute abnormality. SINUSES: The visualized paranasal sinuses and mastoid air cells demonstrate no acute abnormality. SOFT TISSUES/SKULL: No acute abnormality of the visualized skull or soft tissues. IMPRESSION: No acute intracranial hemorrhage identified. Interpreted by: Aguilar Alba MD Signed by: Aguilar Alba MD 09/03/20 Final result Normal [facility] CT HEAD WO CONTRASTOrdered B y: Jayme Morton on 09-03-2020 No acute intracrania l hemorrhage identified. [facility] Phone: EXAMINATION: CT OF T HE HEAD WITHOUT CONTRAST 09/03/2020 12:04 pm TECHNIQUE: CT of the head was performed without the administration of intravenous contrast. Dose modulation, iterative reconstruction, and/or weight based adjustment of the mA/kV was utilized to reduce the radiation dose to as low as reasonably achievable. COMPARISON: 09/02/2020, 06/02/2020 HISTORY: ORDERING SYSTEM PROVIDED HISTORY: Follow-up 24-hour CT head post TPA protocol TECHNOLOGIST PROVIDED HISTORY: Follow-up 24-hour CT head post TPA protocol Reason for Exam: Follow-up 24-hour CT head post TPA protocol FINDINGS: BRAIN/VENTRICLES: There is no acute intracranial hemorrhage, mass effect or midline shift. No abnormal extra-axial fluid collection. The brain is unchanged in appearance. ORBITS: The visualized portion of the orbits demonstrate no acute abnormality. SINUSES: The visualized paranasal sinuses and mastoid air cells demonstrate no acute abnormality. SOFT TISSUES/SKULL: No acute abnormality of the visualized skull or soft tissues. [facility] Phone: Jaqu[facility], [facility] Incoming Radiant Results From [employer] - 09/03/2020 1:06 PM EDT EXAMINATION: CT OF THE HEAD WITHOUT CONTRAST 09/03/2020 12:04 pm TECHNIQUE: CT of the head was performed without the administration of intravenous contrast. Dose modulation, iterative reconstruction, and/or weight based adjustment of the mA/kV was utilized to reduce the radiation dose to as low as reasonably achievable. COMPARISON: 09/02/2020, 06/02/2020 HISTORY: ORDERING SYSTEM PROVIDED HISTORY: Follow-up 24-hour CT head post TPA protocol TECHNOLOGIST PROVIDED HISTORY: Follow-up 24-hour CT head post TPA protocol Reason for Exam: Follow-up 24-hour CT head post TPA protocol FINDINGS: BRAIN/VENTRICLES: There is no acute intracranial hemorrhage, mass effect or midline shift. No abnormal extra-axial fluid collection. The brain is unchanged in appearance. ORBITS: The visualized portion of the orbits demonstrate no acute abnormality. SINUSES: The visualized paranasal sinuses and mastoid air cells demonstrate no acute abnormality. SOFT TISSUES/SKULL: No acute abnormality of the visualized skull or soft tissues. IMPRESSION: No acute intracranial hemorrhage identified. [facility]ish Phone: [facility] Phone: HEMOGLOBIN AND HEMATOCRIT, B LOODOrdered By: King Monteiro on 09-03-2020 Hematocrit (Bld) [Volume fraction] 30.2 % Low 36.3 - 47.1 % [facility] Phone: Hemoglobin.gastrointes tinal spec 1 Ql (Stl) 9.4 g/dL Low 11.9 - 15.1 g/dL [facility] Phone: Interpretation and review of laboratory results Abnormal [facility] Phone: [facility] Phone: Hemoglobin A1Con 09-03-2020 Glucose [Mass/Vol] 131 mg/dL Normal [facility] Comment on above: Result Comment: The ADA and AACC recommend providing the estimated average glucose result to permit better patient understanding of their HBA1c result. Performed By: #### S STAR #### [employer] [facility] [address] [place] [address] Cotton Feeder: Malik Hart DO [employer] [address] [place], [place] [phone] Cotton Feeder: Wellington Back MD #### GLYHGB #### [employer] [address] [place], [place] [phone] Cotton Feeder: Wellington Back MD HbA1c (Bld) [Mass fraction] 6.2 % High 4.0-6.0 [facility] Comment on above: Performed By: #### S STAR #### [facility] [address] [place] [address] Cotton Feeder: Malik Hart DO [facility] [address] [place], [place] [phone] Cotton Feeder: Wellington Back MD #### GLYHGB #### [facility] [address] [place], [place] [id number] Cotton Feeder: Wellington Back MD Hemoglobin [id number] By: Alena Metz on 09-03-2020 Glucose [Mass/Vol] 131 mg/dL [facility] Phone: Comment on above: The ADA and AACC rec ommend providing the estimated average glucose result to permit better patient understanding of their HBA1c result. HbA1c (Bld) [Mass fraction] 6.2 % High 4.0 - 6.0 % [facility] Phone: Interpretation and review of laboratory results Abnormal [facility] Phone: [facility] Phone: Immature Platelet FractionOr dered By: King Monteiro on 09-03-2020 Platelet, Fluorescence Platelet clumps present, count appears adequate. Mydish Phone: Comment on above: ORDERED BY LAB Platelet, Immature Fraction NOT REPORTED 1.1 - 10.3 % Mydish Phone: Mydish Phone: Lipid Profileon 09-03-2020 Cholesterol [Mass/Vol] 123 mg/dL Normal <200 [facility] Comment on above: Result Comment: Cholesterol Guidelines: <200 Desirable 200-240 Borderline >240 Undesirable Performed By: #### B MPX, PROL, TSHX, LIPR #### [facility] [address] [place] [address] Cotton Feeder: Wellington Back MD Cholesterol in HDL [Mass/Vol] 69 mg/dL Normal >40 [facility] Comment on above: Result Comment: HDL Guidelines: <40 Undesirable 40-59 Borderline >59 Desirable Performed By: #### B MPX, PROL, TSHX, LIPR #### [facility] [address] [place] [address] [id number] Cotton Feeder: Wellington Back MD Cholesterol in LDL [Mass/Vol] 40 mg/dL Normal 0-130 [facility] Comment on above: Result Comment: LDL Guidelines: <100 Desirable 100-129 Near to/above Desirable 130-159 Borderline >159 Undesirable Direct (measured) LDL and calculated LDL are not interchangeable tests. Performed By: #### B MPX, PROL, TSHX, LIPR #### [facility] [address] [place] [id number] Cotton Feeder: Wellington Back MD Cholesterol.total/Chol esterol in HDL [Mass ratio] 1.8 {ratio} Normal <5 [facility] Comment on above: Performed By: #### B MPX, PROL, TSHX, LIPR #### [facility] [address] [place] [address] [id number] Cotton Feeder: Wellington Back MD Triglyceride [Mass/Vol] 70 mg/dL Normal <150 [facility] Comment on above: Result Comment: Triglyceride Guidelines: <150 Desirable 150-199 Borderline 200-499 High >499 Very high Based on AHA Guidelines for fasting triglyceride, November 2011. Performed By: #### B MPX, PROL, TSHX, LIPR #### [facility] [address] [place] [address] [phone] Cotton Feeder: Wellington Back MD Lipid panel - fastingOrdered By: Suraj Peters on 09-03-2020 Cholesterol [Mass/Vol] 123 mg/dL <200 [facility] fflick Phone: Comment on above: Cholesterol Guidelines: <200 Desirable 200-240 Borderline >240 Undesirable Cholesterol in HDL [Mass/Vol] 69 mg/dL >40 [facility] Phone: Comment on above: HDL Guidelines: <40 Undesirable 40-59 Borderline >59 Desirable Cholesterol in LDL [Mass/Vol] 40 mg/dL 0 - 130 mg/dL [facility] Phone: Comment on above: LDL Guidelines: <100 Desirable 100-129 Near to/above Desirable 130-159 Borderline >159 Undesirable Direct (measured) LDL and calculated LDL are not interchangeable tests. Cholesterol in VLDL [Mass/Vol] NOT REPORTED 1 - 30 mg/dL [facility] Phone: Cholesterol.total/Chol esterol in HDL [Mass ratio] 1.8 {ratio} <5 [facility] Phone: Triglyceride [Mass/Vol] 70 mg/dL <150 [facility] Phone: Comment on above: Triglyceride Guidelines: <150 Desirable 150-199 Borderline 200-499 High >499 Very high Based on AHA Guidelines for fasting triglyceride, November 2011. Mydish Phone: No Panel InformationOrdered By: Suraj Peters on 09-03-2020 Mydish Phone: PLT, Immature Fract.on 09-03 Platelet, Fluoresc. Platelet clumps present, count appears adequate. Normal 138-453 [facility] Comment on above: Result Comment: ORDE RED BY LAB Performed By: #### C DP, IPF ####[facility] [place], [place] [id number] Lab Director: Wellington Back MD PLT, Immature Fract. NOT REPORTED Normal 1.1-10.3 [facility] Comment on above: Performed By: #### C DP, IPF ####[facility] [place], [place] [id number] lab Director: Wellington Back MD PROLACTINOrdered By: Suraj ramirez on 09-03-2020 Prolactin 17.33 ug/L 4.79 - 23.30 ug/L My[facility]ish Phone: Comment on above: The presence of macr oprolactin may cause interference in female patients with various endocrinological diseases or during . Prolactinon 09-03-2020 Prolactin 17.33 ug/L Normal 4.79-23.30 [facility] Comment on above: Result Comment: The presence of macroprolactin may cause interference in female patients with various endocrinological diseases or during . Performed By: #### B MPX, PROL, TSHX, LIPR #### [facility] [address] [place] [address] [phone] Cotton Feeder: Wellington Back MD SPECIMEN REJECTIONOrdered By : Ralf Christie on 09-03-2020 - NOT REPORTED Mydish Phone: Ordered Test CDP Mydish Phone: Reason for Rejection Unable to perform testing: Specimen clotted. Mydish Phone: Specimen source Nom (Unsp spec) .BLOOD Mydish Phone: Mydish Phone: Specimen Rejectionon 021 Reason for rejection Unable to perform testing: Specimen clotted. Normal [facility] Comment on above: Performed By: #### R EJEC, BMPX #### [facility] [address] [place] [address] [phone] Cotton Feeder: Wellington Back MD Source of sample .BLOOD [facility] Comment on above: Performed By: #### R EJEC, BMPX #### [facility] [address] [place] [address] [phone] Cotton Feeder: Wellington Back MD Test ordered CDP [facility] Comment on above: Performed By: #### R EJEC, BMPX #### [facility] [address] [place] [address] [phone] Cotton Feeder: Wellington Back MD ----- NOT REPORTED [facility] Comment on above: Performed By: #### R EJEC, BMPX #### [address] [address] Cotton Feeder: Wellington Back MD Stroke Panelon 09-03-2020 % CKMB 3.6 % High 0.0-3.0 [facility] Comment on above: Performed By: #### S STAR #### [facility] [address] [place] [address] Cotton Feeder: Malik Hart [address] [address] Cotton Feeder: Wellington Back MD #### GLYHGB #### [address] [address] Cotton Feeder: Wellington Back MD CK-MB,Quantitative 2.9 ng/mL Normal <5.4 [facility] Comment on above: Performed By: #### Marina GRAVES #### [facility] [address] [place] [address] Cotton Feeder: Malik Hart DO [address] [address] Cotton Feeder: Wellington Back MD #### GLYHGB #### [address] [address] Cotton Feeder: Wellington Back MD CKMB-Interpretation NORMAL ISOENZYME PATTERN Normal [facility] Comment on above: Performed By: #### S STAR #### [facility] [address] [place] [address] Cotton Feeder: Malik Hart DO [address] [address] Cotton Feeder: Wellington Back MD #### GLYHGB #### [address] [place] [address] Cotton Feeder: Wellington Back MD TSH w/reflex to FT4on 2020 TSH Qn 0.99 m[IU]/L Normal 0.30-5.00 [facility] Comment on above: Performed By: #### B MPX, PROL, TSHX, LIPR #### [facility] [address] [place] [address] Cotton Feeder: Wellington Back MD TSH with ReflexOrdered By: Ej Peters on 09-03-2020 TSH Qn 0.99 m[IU]/L Mydish Phone: CHLORIDE (POC)Ordered By: Ozzie Lomax on 09-02-2020 Chloride [Moles/Vol] 103 mmol/L 98 - 10 7 mmol/L My[facility]ish Phone: CTA HEAD NECK W CONTRASTon 0 09-02-2020 CTA HEAD NECK W CONTRAST EXAMINATION: CTA OF THE HEAD AND NECK WITH CONTRAST 09/02/2020 12:17 pm: TECHNIQUE: CTA of the head and neck was performed with the administration of intravenous contrast. Multiplanar reformatted images are provided for review. MIP images are provided for review. Stenosis of the internal carotid arteries measured using NASCET criteria. Dose modulation, iterative reconstruction, and/or weight based adjustment of the mA/kV was utilized to reduce the radiation dose to as low as reasonably achievable. COMPARISON: 04/17/2020 HISTORY: ORDERING SYSTEM PROVIDED HISTORY: stroke alert TECHNOLOGIST PROVIDED HISTORY: stroke alert Decision Support Exception - unselect if not a suspected or confirmed emergency medical condition->Emergency Medical Condition (MA) Acuity: Unknown FINDINGS: CTA NECK: AORTIC ARCH/ARCH VESSELS: No dissection or arterial injury. No significant stenosis of the brachiocephalic or subclavian arteries. CAROTID ARTERIES: No dissection, arterial injury, or hemodynamically significant stenosis by NASCET criteria. VERTEBRAL ARTERIES: No dissection, arterial injury, or significant stenosis. The basilar artery is hypoplastic. The right vertebral artery is hypoplastic. SOFT TISSUES: The lung apices are clear. No cervical or superior mediastinal lymphadenopathy. The larynx and pharynx are unremarkable. No acute abnormality of the salivary and thyroid glands. BONES: No acute osseous abnormality. CTA HEAD: ANTERIOR CIRCULATION: There is a small outpouching involving the origin of the A2 segment of the left anterior cerebral artery. This finding likely represents an infundibulum rather than a true aneurysm. 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 POSTERIOR CIRCULATION: The proximal basilar artery is hypoplastic. The posterior cerebral arteries are primarily supplied by a persistent left trigeminal artery. OTHER: No dural venous sinus thrombosis on this non-dedicated study. BRAIN: No mass effect or midline shift. No extra-axial fluid collection. The kevin-white differentiation is maintained. 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 Stable small 2 mm x 3 mm outpouching involving the origin of the A2 segment of the left anterior cerebral artery. 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 No intracranial large vessel occlusion. Unremarkable CT angiogram of the 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 Stable small 2 mm x 3 mm outpouching involving the origin of the A2 segment of the left anterior cerebral artery. 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 No intracranial large vessel occlusion. Unremarkable CT angiogram of the 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 [facility] Work Phone: EXAMINATION: CTA OF THE HEAD AND NECK WITH CONTRAST 09/02/2020 12:17 pm: TECHNIQUE: CTA of the head and neck was performed with the administration of intravenous contrast. Multiplanar reformatted images are provided for review. MIP images are provided for review. Stenosis of the internal carotid arteries measured using NASCET criteria. Dose modulation, iterative reconstruction, and/or weight based adjustment of the mA/kV was utilized to reduce the radiation dose to as low as reasonably achievable. COMPARISON: 04/17/2020 HISTORY: ORDERING SYSTEM PROVIDED HISTORY: stroke alert TECHNOLOGIST PROVIDED HISTORY: stroke alert Decision Support Exception - unselect if not a suspected or confirmed emergency medical condition->Emergency Medical Condition (MA) Acuity: Unknown FINDINGS: CTA NECK: AORTIC ARCH/ARCH VESSELS: No dissection or arterial injury. No significant stenosis of the brachiocephalic or subclavian arteries. CAROTID ARTERIES: No dissection, arterial injury, or hemodynamically significant stenosis by NASCET criteria. VERTEBRAL ARTERIES: No dissection, arterial injury, or significant stenosis. The basilar artery is hypoplastic. The right vertebral artery is hypoplastic. SOFT TISSUES: The lung apices are clear. No cervical or superior mediastinal lymphadenopathy. The larynx and pharynx are unremarkable. No acute abnormality of the salivary and thyroid glands. BONES: No acute osseous abnormality. CTA HEAD: ANTERIOR CIRCULATION: There is a small outpouching involving the origin of the A2 segment of the left anterior cerebral artery. This finding likely represents an infundibulum rather than a true aneurysm. 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 POSTERIOR CIRCULATION: The proximal basilar artery is hypoplastic. The posterior cerebral arteries are primarily supplied by a persistent left trigeminal artery. OTHER: No dural venous sinus thrombosis on this non-dedicated study. BRAIN: No mass effect or midline shift. No extra-axial fluid collection. The kevin-white differentiation is maintained. [employer] Work Phone: Jaquan, [facility] Incoming Radiant Results From [employer] - 09/02/2020 2:38 PM EDT EXAMINATION: CTA OF THE HEAD AND NECK WITH CONTRAST 09/02/2020 12:17 pm: TECHNIQUE: CTA of the head and neck was performed with the administration of intravenous contrast. Multiplanar reformatted images are provided for review. MIP images are provided for review. Stenosis of the internal carotid arteries measured using NASCET criteria. Dose modulation, iterative reconstruction, and/or weight based adjustment of the mA/kV was utilized to reduce the radiation dose to as low as reasonably achievable. COMPARISON: 04/17/2020 HISTORY: ORDERING SYSTEM PROVIDED HISTORY: stroke alert TECHNOLOGIST PROVIDED HISTORY: stroke alert Decision Support Exception - unselect if not a suspected or confirmed emergency medical condition->Emergency Medical Condition (MA) Acuity: Unknown FINDINGS: CTA NECK: AORTIC ARCH/ARCH VESSELS: No dissection or arterial injury. No significant stenosis of the brachiocephalic or subclavian arteries. CAROTID ARTERIES: No dissection, arterial injury, or hemodynamically significant stenosis by NASCET criteria. VERTEBRAL ARTERIES: No dissection, arterial injury, or significant stenosis. The basilar artery is hypoplastic. The right vertebral artery is hypoplastic. SOFT TISSUES: The lung apices are clear. No cervical or superior mediastinal lymphadenopathy. The larynx and pharynx are unremarkable. No acute abnormality of the salivary and thyroid glands. BONES: No acute osseous abnormality. CTA HEAD: ANTERIOR CIRCULATION: There is a small outpouching involving the origin of the A2 segment of the left anterior cerebral artery. This finding likely represents an infundibulum rather than a true aneurysm. 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 POSTERIOR CIRCULATION: The proximal basilar artery is hypoplastic. The posterior cerebral arteries are primarily supplied by a persistent left trigeminal artery. OTHER: No dural venous sinus thrombosis on this non-dedicated study. BRAIN: No mass effect or midline shift. No extra-axial fluid collection. The kevin-white differentiation is maintained. 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 Stable small 2 mm x 3 mm outpouching involving the origin of the A2 segment of the left anterior cerebral artery. 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 No intracranial large vessel occlusion. Unremarkable CT angiogram of the 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 [facility]ish Phone: Mydish Phone: Creatinine W/GFR Point of Ca reOrdered By: Kristina Lomax on 09-02-2020 Creatinine [Mass/Vol] 0.66 mg/dL 0.51 - 1.19 mg/dL [facility] Phone: GFR Non- >60 >60 mL/min [facility] Phone: GFR/1.73 sq M.predicted MDRD (S/P/Bld) [Vol rate/Area] mL/min/{1.73_m2} >60 mL/min [facility] Work Phone: GFR/1.73 sq M.predicted MDRD (S/P/Bld) [Vol rate/Area] [facility] Work Phone: Comment on above: Average GFR for 70 o r more years old: 75 mL/min/1.73sq m Chronic Kidney Disease: <60 mL/min/1.73sq m Kidney failure: <15 mL/min/1.73sq m eGFR calculated using average adult body mass. Additional eGFR calculator available at: http://www.[employer]meeting/multiple_crcl_2012.htm EEG video monitoringOrdered By: Suraj Peters on 09-02-2020 Kvng Mcfadden MD 09/02/2020 6:05 PM VIDEO-EEG MONITORING REPORT Patient Name: Ever Palmer Dates recorded: 09/02/2020 Electroencephalographe r: Kvng Mcfadden MD CLINICAL DETAILS: This EEG was performed on this 79 y.o.yo female admitted with aphasia MEDICATIONS: Current Facility-Administered Medications: [COMPLETED] alteplase (ACTIVASE) injection 6.3 mg, 0.09 mg/kg, Intravenous, Once, 6.3 mg at 09/02/20 1200 FOLLOWED BY [COMPLETED] alteplase (ACTIVASE) injection 56.6 mg, 0.81 mg/kg, Intravenous, Once, Stopped at 09/02/20 1322 FOLLOWED BY 0.9 % sodium chloride bolus, 50 mL, Intravenous, Once, Vernon Patino MD sodium chloride flush 0.9 % injection 5-40 mL, 5-40 mL, Intravenous, 2 times per day, Vernon Patino MD sodium chloride flush 0.9 % injection 5-40 mL, 5-40 mL, Intravenous, PRN, Vernon Patino MD 0.9 % sodium chloride infusion, 25 mL, Intravenous, PRN, Vernon Patino MD dextrose 50 % IV solution, 12.5 g, Intravenous, Once PRN, Vernon Patino MD [Held by provider] amLODIPine (NORVASC) tablet 5 mg, 5 mg, Oral, Daily, Suraj Peters MD [Held by provider] aspirin EC tablet 81 mg, 81 mg, Oral, Daily, Suraj Peters MD atorvastatin (LIPITOR) tablet 40 mg, 40 mg, Oral, Nightly, Suraj Peters MD busPIRone (BUSPAR) tablet 15 mg, 15 mg, Oral, BID, Suraj Peters MD [Held by provider] clopidogrel (PLAVIX) tablet 75 mg, 75 mg, Oral, Daily, Suraj Peters MD gabapentin (NEURONTIN) capsule 100 mg, 100 mg, Oral, Nightly, Suraj Peters MD lactulose (CHRONULAC) 10 GM/15ML solution 10 g, 10 g, Oral, BID, Suraj Peters MD [Held by provider] losartan (COZAAR) tablet 50 mg, 50 mg, Oral, BID, Suraj Peters MD sodium chloride flush 0.9 % injection 5-40 mL, 5-40 mL, Intravenous, 2 times per day, Suraj Peters MD sodium chloride flush 0.9 % injection 5-40 mL, 5-40 mL, Intravenous, PRN, Suraj Peters MD 0.9 % sodium chloride infusion, 25 mL, Intravenous, PRN, Suraj Peters MD ondansetron (ZOFRAN-ODT) disintegrating tablet 4 mg, 4 mg, Oral, Q8H PRN OR ondansetron (ZOFRAN) injection 4 mg, 4 mg, Intravenous, Q6H PRN, Suraj Peters MD polyethylene glycol (GLYCOLAX) packet 17 g, 17 g, Oral, Daily PRN, Suraj Peters MD labetalol (NORMODYNE;TRANDATE) injection 10 mg, 10 mg, Intravenous, Q4H PRN, Suraj Peters MD levETIRAcetam (KEPPRA) 1000 mg/100 mL IVPB, 1,000 mg, Intravenous, Once, Suraj Peters MD promethazine (PHENERGAN) injection 12.5 mg, 12.5 mg, Intravenous, Q6H PRN, Suraj Peters MD Facility-Administered Medications Ordered in Other Encounters: acetaminophen (TYLENOL) tablet 650 mg, 650 mg, Oral, Q4H PRN, Pantera Mcdonald MD ondansetron (ZOFRAN-ODT) disintegrating tablet 4 mg, 4 mg, Oral, Q8H PRN OR ondansetron (ZOFRAN) injection 4 mg, 4 mg, Intravenous, Q6H PRN, Pantera Mcdonald MD baclofen (LIORESAL) tablet 10 mg, 10 mg, Oral, Nightly, aRlf Christie MD metFORMIN (GLUCOPHAGE) tablet 500 mg, 500 mg, Oral, Nightly, Ralf Christie MD aspirin tablet 81 mg, 81 mg, Oral, Daily, Ralf Christie MD calcium carbonate tablet 600 mg, 1 tablet, Oral, Daily, Ralf Christie MD gabapentin (NEURONTIN) capsule 100 mg, 100 mg, Oral, Nightly, Ralf Christie MD clopidogrel (PLAVIX) tablet 75 mg, 75 mg, Oral, Daily, Ralf Christie MD lactulose (CEPHULAC) packet 10 g, 10 g, Oral, BID, Ralf Christie MD busPIRone (BUSPAR) tablet 15 mg, 15 mg, Oral, BID, Ralf Christie MD atorvastatin (LIPITOR) tablet 40 mg, 40 mg, Oral, Nightly, Ralf Christie MD losartan (COZAAR) tablet 25 mg, 25 mg, Oral, Daily, Ralf Christie MD amLODIPine (NORVASC) tablet 5 mg, 5 mg, Oral, Daily, Ralf Christie MD vitamin E capsule 400 Units, 400 Units, Oral, Daily, Ralf Christie MD sodium chloride flush 0.9 % injection 5-40 mL, 5-40 mL, Intravenous, 2 times per day, Ralf Christie MD sodium chloride flush 0.9 % injection 5-40 mL, 5-40 mL, Intravenous, PRN, Ralf Christie MD 0.9 % sodium chloride infusion, 25 mL, Intravenous, PRN, Ralf Christie MD enoxaparin (LOVENOX) injection 40 mg, 40 mg, Subcutaneous, Daily, Ralf Christie MD ondansetron (ZOFRAN-ODT) disintegrating tablet 4 mg, 4 mg, Oral, Q8H PRN OR ondansetron (ZOFRAN) injection 4 mg, 4 mg, Intravenous, Q6H PRN, Ralf Christie MD polyethylene glycol (GLYCOLAX) packet 17 g, 17 g, Oral, Daily PRN, Ralf Christie MD acetaminophen (TYLENOL) tablet 650 mg, 650 mg, Oral, Q6H PRN OR acetaminophen (TYLENOL) suppository 650 mg, 650 mg, Rectal, Q6H PRN, Ralf Christie MD TECHNICAL DETAILS: Continuous video-EEG monitoring was performed with 27 surface scalp electrodes placed according to the International 10-20 electrode placement system, using a 32-channel [employer] headbox. All EEG and video information was acquired digitally, including the use of automated spike and seizure detection software to detect epileptiform activity. An event button was also available to be depressed during clinical events. RESULTS: In (more content not included)... Mydish Phone: Mydish Phone: Hemoglobin and hematocrit, b loodOrdered By: Kristina Lomax on 09-02-2020 Hematocrit (Bld) [Volume fraction] 35 % Low 36 - 46 % [facility] Phone: Hemoglobin (Bld) [Mass/Vol] 11.8 g/dL Low 12.0 - 16.0 g/dL [facility] Phone: Interpretation and review of laboratory results Abnormal [facility]ish Phone: Lipid Profileon 09-02-2020 Cholesterol,VLDL NOT REPORTED Normal 03-09 [facility] Comment on above: Performed By: #### B MPX, PROL, TSHX, LIPR #### [facility] [address] [place] [address] Cotton Feeder: Wellington Back MD MRI LIMITED BRAINon 09-03-19 21 MRI LIMITED BRAIN EXAMINATION: MRI OF THE BRAIN WITHOUT CONTRAST 09/02/2020 12:33 pm TECHNIQUE: Multiplanar multisequence MRI of the brain was performed without the administration of intravenous contrast. COMPARISON: None. HISTORY: ORDERING SYSTEM PROVIDED HISTORY: stroke alert, Left MCA stroke TECHNOLOGIST PROVIDED HISTORY: stroke alert, Left MCA stroke FINDINGS: INTRACRANIAL STRUCTURES/VENTRICLES: There is no acute hemorrhage, mass effect, or midline shift. There is satisfactory overall kevin-white matter differentiation. The ventricular structures are symmetric and unremarkable. The infratentorial structures including the cerebellopontine angles and internal auditory canals are unremarkable. There is no abnormal restricted diffusion. There is no abnormal blooming artifact on susceptibility weighted imaging. ORBITS: The visualized portion of the orbits demonstrate no acute abnormality. SINUSES: The visualized paranasal sinuses and mastoid air cells are well aerated. BONES/SOFT TISSUES: The bone marrow signal intensity appears normal. The soft tissues demonstrate no acute abnormality. IMPRESSION: No acute intracranial abnormality. Findings were discussed with Dr. Mcdonald At 11:45 am on 09/02/2020. Interpreted by: Kel Hennessy MD Signed by: Kel Hennessy MD 09/02/20 Final result Normal [facility] MRI LIMITED BRAINOrdered By: Ralf Christie on 09-02-2020 No acute intracrania l abnormality. Findings were discussed with Dr. Mcdonald At 11:45 am on 09/02/2020. [facility]ish Phone: EXAMINATION: MRI OF THE BRAIN WITHOUT CONTRAST 09/02/2020 12:33 pm TECHNIQUE: Multiplanar multisequence MRI of the brain was performed without the administration of intravenous contrast. COMPARISON: None. HISTORY: ORDERING SYSTEM PROVIDED HISTORY: stroke alert, Left MCA stroke TECHNOLOGIST PROVIDED HISTORY: stroke alert, Left MCA stroke FINDINGS: INTRACRANIAL STRUCTURES/VENTRICLES: There is no acute hemorrhage, mass effect, or midline shift. There is satisfactory overall kevin-white matter differentiation. The ventricular structures are symmetric and unremarkable. The infratentorial structures including the cerebellopontine angles and internal auditory canals are unremarkable. There is no abnormal restricted diffusion. There is no abnormal blooming artifact on susceptibility weighted imaging. ORBITS: The visualized portion of the orbits demonstrate no acute abnormality. SINUSES: The visualized paranasal sinuses and mastoid air cells are well aerated. BONES/SOFT TISSUES: The bone marrow signal intensity appears normal. The soft tissues demonstrate no acute abnormality. [facility]ish Phone: Jaquan, [facility] Incoming Radiant Results From [employer] 09/02/2020 12:44 PM EDT EXAMINATION: MRI OF THE BRAIN WITHOUT CONTRAST 09/02/2020 12:33 pm TECHNIQUE: Multiplanar multisequence MRI of the brain was performed without the administration of intravenous contrast. COMPARISON: None. HISTORY: ORDERING SYSTEM PROVIDED HISTORY: stroke alert, Left MCA stroke TECHNOLOGIST PROVIDED HISTORY: stroke alert, Left MCA stroke FINDINGS: INTRACRANIAL STRUCTURES/VENTRICLES: There is no acute hemorrhage, mass effect, or midline shift. There is satisfactory overall kevin-white matter differentiation. The ventricular structures are symmetric and unremarkable. The infratentorial structures including the cerebellopontine angles and internal auditory canals are unremarkable. There is no abnormal restricted diffusion. There is no abnormal blooming artifact on susceptibility weighted imaging. ORBITS: The visualized portion of the orbits demonstrate no acute abnormality. SINUSES: The visualized paranasal sinuses and mastoid air cells are well aerated. BONES/SOFT TISSUES: The bone marrow signal intensity appears normal. The soft tissues demonstrate no acute abnormality. IMPRESSION: No acute intracranial abnormality. Findings were discussed with Dr. Mcdonald At 11:45 am on 09/02/2020. [facility] Phone: Mydish Phone: No Panel InformationOrdered By: Kristina Lomax on 09-02-2020 [facility] Phone: POC Glucose FingerstickOrder ed By: Kristina Lomax on 09-02-2020 Glucose [Mass/Vol] 73 mg/dL 65 - 105 mg/dL [facility] Phone: [facility]ish Phone: POCT GlucoseOrdered By: Bee Lomax on 09-02-2020 Glucose [Mass/Vol] 89 mg/dL 74 - 100 mg/dL [facility] Phone: POCT urea (BUN)Ordered By: Zurdo Lomax on 09-02-2020 Urea nitrogen [Mass/Vol] 22 mg/dL 8 - 26 mg/dL [facility] Phone: POTASSIUM (POC)Ordered By: Zurdo Lomax on 09-02-2020 Potassium [Moles/Vol] 3.8 mmol/L 3.5 - 4.5 mmol/L [facility] Work Phone: SODIUM (POC)Ordered By: Bee Lomax on 09-02-2020 Sodium [Moles/Vol] 138 mmol/L 138 - 146 mmol/L [facility] Work Phone: STROKE PANELOrdered By: Fabricio Metz on 09-02-2020 % CKMB 3.6 % High 0.0 - 3.0 % [facility] Work Phone: Absolute Eos # 0.00 [facility] Work Phone: Absolute Immature Granulocyte 0.00 [facility] [employer] Work Phone: Absolute Lymph # 0.83 Low [facility] Work Phone: Absolute Carter # 0.83 High [facility] Work Phone: Anion gap [Moles/Vol] 20 mmol/L High 9 - 17 mmol/L [facility] Work Phone: aPTT Coag (Bld) [Time] 21.8 s Me [facility] [employer] Work Phone: Comment on above: IV Heparin Therapy Range: 48.6-77.8 Basophils (Bld) [#/Vol] 0.00 10*3/uL [facility] Work Phone: Basophils/100 WBC (Bld) 0 % 0 - 2 % [facility] Work Phone: Calcium [Mass/Vol] 9.2 mg/dL 8.6 - 10. 4 mg/dL [facility] Work Phone: Chloride [Moles/Vol] 100 mmol/L 98 - 10 7 mmol/L [facility] Work Phone: CK [Catalytic activity/Vol] 81 U/L 26 - 192 U/L [facility] Work Phone: CK.MB [Mass/Vol] 2.9 ng/mL <5.4 [employer] Work Phone: CKMB Interpretation NORMAL ISOENZYME PATTERN [facility] Phone: CO2 [Moles/Vol] 16 mmol/L Low 20 - 31 mmol/L [facility] Phone: Creatinine [Mass/Vol] 0.63 mg/dL 0.50 - 0.90 mg/dL [facility] Phone: Differential Type NOT REPORTED [facility] Phone: Eosinophils/100 WBC (Bld) 0 % Low 1 - 4 % [facility] Phone: GFR >60 >60 mL/min [employer] Phone: GFR Non- >60 >60 mL/min [facility] Phone: GFR/1.73 sq M.predicted MDRD (S/P/Bld) [Vol rate/Area] [facility] Phone: Comment on above: Average GFR for 70 o r more years old: 75 mL/min/1.73sq m Chronic Kidney Disease: <60 mL/min/1.73sq m Kidney failure: <15 mL/min/1.73sq m eGFR calculated using average adult body mass. Additional eGFR calculator available at: http://www.[employer]/multiple_crcl_2012.htm GFR/1.73 sq M.predicted MDRD (S/P/Bld) [Vol rate/Area] NOT REPORTED [facility] Phone: Glucose [Mass/Vol] 110 mg/dL High 70 - 99 mg/dL [facility] Phone: Hematocrit (Bld) [Volume fraction] 35.8 % Low 36.3 - 47.1 % [facility] Phone: Hemoglobin.gastrointes tinal spec 1 Ql (Stl) 11.4 g/dL Low 11.9 - 15.1 g/dL [facility] Phone: Immature granulocytes/100 WBC (Bld) 0 % 0 [facility] Phone: INR Coag (Bld) [Relative time] 1.1 {INR} [facility] Phone: Comment on above: Therapeutic Range: Moderate Anticoagulant Intensity: INR = 2.0-3.0 High Anticoagulant Intensity: INR = 2.5-3.5 Interpretation and review of laboratory results Abnormal [facility] Phone: Lymphocytes/100 WBC (Bld) 7 % Low 24 - 44 % [facility] Phone: MCH (RBC) [Entitic mass] 29.8 pg 25.2 - 33.5 pg [facility] Phone: MCHC (RBC) [Mass/Vol] 31.8 g/dL 28.4 - 34.8 g/dL [facility] Phone: MCV (RBC) [Entitic vol] 93.7 fL 82.6 - 102.9 fL [facility] Phone: Monocytes/100 WBC (Bld) 7 % 1 - 7 % [facility] Phone: Morphology Maninder (Bld) [Interp] Normal [facility] Phone: Myoglobin [Mass/Vol] 59 ng/mL High 25 - 58 ng/mL [facility] Phone: NRBC Automated 0.0 0.0 per 100 WBC [facility] Phone: Platelet distribution width (Bld) [Ratio] 14.6 % High 11.8 - 14.4 % [facility] Phone: Platelet Estimate NOT REPORTED [facility] Phone: Platelet mean volume (Bld) [Entitic vol] 9.4 fL 8.1 - 13.5 fL [facility] Phone: Platelets (Bld) [#/Vol] 215 10*3/uL [facility] Phone: Potassium [Moles/Vol] 4.2 mmol/L 3.7 - 5.3 mmol/L [facility] Phone: PT Coag (PPP) [Time] 11.2 s [employer] Phone: RBC (Bld) [#/Vol] 3.82 10*6/uL Low 3.95 - 5.1 1 m/uL [facility] Phone: RBC (Bld) [#/Vol] NOT REPORTED [facility] Phone: Segmented neutrophils/100 WBC (Bld) 86 % High 36 - 66 % [facility] Phone: Segs Absolute 10.14 High [employer] Work Phone: Sodium [Moles/Vol] 136 mmol/L 135 - 144 mmol/L [facility] Phone: Troponin Interp NOT REPORTED [employer] [facility] Work Phone: Troponin T NOT REPORTED <0.03 ng/mL [employer] Work Phone: Troponin, High Sensitivity 20 ng/L High 0 - 14 ng/L [facility] Phone: Comment on above: High Sensitivity Troponin values cannot be compared with other Troponin methodologies. Patients with high levels of Biotin oral intake (i.e >5mg/day) may have falsely decreased Troponin levels. Samples collected within 8 hours of biotin intake may require additional information for diagnosis. Urea nitrogen (BldV) [Mass/Vol] 20 mg/dL 8 - 23 mg/dL [facility] Phone: Urea nitrogen/Creatinine (Bld) [Mass ratio] NOT REPORTED [facility] Phone: WBC (Bld) [#/Vol] 11.8 10*3/uL High [facility] Work Phone: WBC (Bld) [#/Vol] NOT REPORTED [facility] [employer] [facility] Work Phone: [facility] Work Phone: Stroke Panelon 09-02-2020 CK [Catalytic activity/Vol] 81 U/L Normal 26-192 [facility] Comment on above: Performed By: #### Marina GRAVES #### [facility] [address] [place] [address] Cotton Feeder: Malik Hart [address] [address] Cotton Feeder: Wellington Back MD #### GLYHGB #### [address] [address] Cotton Feeder: Wellington Back MD (cont.) [facility] Comment on above: Result Comment: Aver age GFR for 70 or more years old: 75 mL/min/1.73sq m Chronic Kidney Disease: <60 mL/min/1.73sq m Kidney failure: <15 mL/min/1.73sq m eGFR calculated using average adult body mass. Additional eGFR calculator available at: http://www.[employer]/multiple_crcl_2012.htm Performed By: #### Marina GRAVES #### [facility] [address] [place] [address] Cotton Feeder: Malki Hart [address] [address] Cotton Feeder: Wellington Back MD #### GLYHGB #### [address] [address] Cotton Feeder: Wellington Back MD Anion gap [Moles/Vol] 20 mmol/L High 9-17 [facility] Comment on above: Performed By: #### S NASIMKE #### [facility] [address] [place] [address] Cotton Feeder: Malik Hart DO [address] [address] Cotton Feeder: Wellington Back MD #### GLYHGB #### [address] [address] Cotton Feeder: Wellington Back MD Calcium [Mass/Vol] 9.2 mg/dL Normal 8.6-10.4 [facility] Comment on above: Performed By: #### S STAR #### [facility] [address] [place] [address] Cotton Feeder: Malik Hart DO [address] [address] Cotton Feeder: Wellington Back MD #### GLYHGB #### [address] [address] Cotton Feeder: Wellington Back MD Chloride [Moles/Vol] 100 mmol/L Normal 98-107 [facility] Comment on above: Performed By: #### S STAR #### [facility] [address] [place] [address] Cotton Feeder: Malik Hart DO [address] [address] Cotton Feeder: Wellington Back MD #### GLYHGB #### [address] [address] Cotton Feeder: Wellington Back MD CO2 [Moles/Vol] 16 mmol/L Low 20-31 [facility] Comment on above: Performed By: #### S NASIMKE #### [facility] [place] [place] [address] Cotton Feeder: Malik Hart [address] [address] Cotton Feeder: Wellington Back MD #### GLYHGB #### [address] [address] Cotton Feeder: Wellington Back MD Creatinine [Mass/Vol] 0.63 mg/dL Normal 0.50-0.90 [facility] Comment on above: Performed By: #### S NASIMKE #### [facility] [address] [place] [address] Cotton Feeder: Malik Hart [address] [address] Cotton Feeder: Wellington Back MD #### GLYHGB #### [address] [address] Cotton Feeder: Wellington Back MD GFR, Amer >60 Normal >60 [facility] Comment on above: Performed By: #### S STAR #### [facility] [address] [place] [address] Cotton Feeder: Malik Hart DO [address] [address] Cotton Feeder: Wellington Back MD #### GLYHGB #### [address] [address] Cotton Feeder: Wellington Back MD GFR,non Amer >60 Normal >60 [facility] Comment on above: Performed By: #### S TROKE #### [facility] [address] [place] [address] Cotton Feeder: Malik Hart DO [address] [address] Cotton Feeder: Wellington Back MD #### GLYHGB #### [address] [address] Cotton Feeder: Wellington Back MD Glucose [Mass/Vol] 110 mg/dL High 70-99 [facility] Comment on above: Performed By: #### S NASIMKE #### [facility] [address] [place] [address] Cotton Feeder: Malik Hart DO [address] [address] Cotton Feeder: Wellington Back MD #### GLYHGB #### [address] [address] Cotton Feeder: Wellington Back MD Myoglobin [Mass/Vol] 59 ng/mL High 25-58 [facility] Comment on above: Performed By: #### S STAR #### [facility] [address] [place] [address] Cotton Feeder: Malik Hart DO [address] [address] Cotton Feeder: Wellington Back MD #### GLYHGB #### [address] [address] Cotton Feeder: Wellington Back MD Potassium [Moles/Vol] 4.2 mmol/L Normal 3.7-5.3 [facility] Comment on above: Performed By: #### S NASIMKE #### [facility] [address] [place] [address] Cotton Feeder: Malik Hart DO [address] [address] Cotton Feeder: Wellington Back MD #### GLYHGB #### [address] [address] Cotton Feeder: Wellington Back MD Sodium [Moles/Vol] 136 mmol/L Normal 135-144 [facility] Comment on above: Performed By: #### Marina GRAVES #### [facility] [address] [place] [address] Cotton Feeder: Malik Hart DO [address] [address] Cotton Feeder: Wellington Back MD #### GLYHGB #### [address] [address] Cotton Feeder: Wellington Back MD Troponin, High Sens 20 ng/L High 0-14 [facility] Comment on above: Result Comment: High Sensitivity Troponin values cannot be compared with other Troponin methodologies. Patients with high levels of Biotin oral intake (i.e >5mg/day) may have falsely decreased Troponin levels. Samples collected within 8 hours of biotin intake may require additional information for diagnosis. Performed By: #### Marina GRAVES #### [facility] [address] [place] [address] Cotton Feeder: Malik Hart DO [address] [address] Cotton Feeder: Wellington Back MD #### GLYHGB #### [address] [address] Cotton Feeder: Wellington Back MD Urea nitrogen [Mass/Vol] 20 mg/dL Normal 8-23 [facility] Comment on above: Performed By: #### Marina GRAVES #### [facility] [address] [place] [address] Cotton Feeder: Malik Hart DO [address] [address] Cotton Feeder: Wellington Back MD #### GLYHGB #### [address] [address] Cotton Feeder: Wellington Back MD Abs. Basophil 0.00 k/uL Normal 0.0-0.2 [facility] Comment on above: Performed By: #### S STAR #### [facility] [address] [place] [address] Cotton Feeder: Malik Hart [address] [address] Cotton Feeder: Wellington Back MD #### GLYHGB #### [address] [address] Cotton Feeder: Wellington Back MD Abs.Imm.Granulocyte 0.00 k/uL Normal 0.00-0.30 [facility] Comment on above: Performed By: #### Marina GRAVES #### [facility] [place] [place] [address] Cotton Feeder: Malik Hart [address] [address] Cotton Feeder: Wellington Back MD #### GLYHGB #### [address] [address] Cotton Feeder: Wellington Back MD Abs.Neutrophil (Seg) 10.14 k/uL High 1.8-7.7 [facility] Comment on above: Performed By: #### Marina GRAVES #### [facility] [address] [place] [address] Cotton Feeder: aMlik Hart [address] [address] Cotton Feeder: Wellington Back MD #### GLYHGB #### [address] [address] Cotton Feeder: Wellington Back MD Basophils/100 WBC (Bld) 0 % Normal 0-2 [facility] Comment on above: Performed By: #### Marina GRAVES #### [facility] [address] [place] [address] Cotton Feeder: Malik Hart [address] [address] Cotton Feeder: Wellington Back MD #### GLYHGB #### [address] [address] Cotton Feeder: Wellington Back MD Eosinophils (Bld) [#/Vol] 0.00 10*3/uL Normal 0.0-0.4 [facility] Comment on above: Performed By: #### Marina GRAVES #### [facility] [address] [place] [address] Cotton Feeder: Malik Hart [address] [address] Cotton Feeder: Wellington Back MD #### GLYHGB #### [address] [address] Cotton Feeder: Wellington Back MD Eosinophils/100 WBC (Bld) 0 % Low 1-4 [facility] Comment on above: Performed By: #### Marina GRAVES #### [facility] [address] [place] [address] Cotton Feeder: Malik Hart DO [address] [address] Cotton Feeder: Wellington Back MD #### GLYHGB #### [address] [address] Cotton Feeder: Wellington Back MD Immature granulocytes/100 WBC (Bld) 0 % Normal 0 [facility] Comment on above: Performed By: #### S STAR #### [facility] [address] [place] [address] Cotton Feeder: Malik Hart DO [address] [address] Cotton Feeder: Wellington Back MD #### GLYHGB #### [address] [address] Cotton Feeder: Wellington Back MD Lymphocytes (Bld) [#/Vol] 0.83 10*3/uL Low 1.0-4.8 [facility] Comment on above: Performed By: #### S STAR #### [facility] [address] [place] [address] Cotton Feeder: Malik Hart [address] [address] Cotton Feeder: Wellington Back MD #### GLYHGB #### [address] [address] Cotton Feeder: Wellington Back MD Lymphocytes/100 WBC (Bld) 7 % Low 24-44 [facility] Comment on above: Performed By: #### S STAR #### [facility] [address] [place] [address] Cotton Feeder: Malik Hart DO [address] [address] Cotton Feeder: Wellington Back MD #### GLYHGB #### [address] [address] Cotton Feeder: Wellington Back MD Monocytes (Bld) [#/Vol] 0.83 10*3/uL High 0.1-0.8 [facility] Comment on above: Performed By: #### S STAR #### [facility] [address] [place] [address] Cotton Feeder: Malik Hart DO [address] [address] Cotton Feeder: Wellington Back MD #### GLYHGB #### [address] [address] Cotton Feeder: Wellington Back MD Monocytes/100 WBC (Bld) 7 % Normal 1-7 [facility] Comment on above: Performed By: #### S NASIMKE #### [facility] [place] [place] [address] Cotton Feeder: Malik Hart DO [address] [address] Cotton Feeder: Wellington Back MD #### GLYHGB #### [address] [address] Cotton Feeder: Wellington Back MD Morphology Maninder (Bld) [Interp] Normal Normal [facility] Comment on above: Performed By: #### S STAR #### [facility] [address] [place] [address] Cotton Feeder: Malik Hart DO [address] [address] Cotton Feeder: Wellington Back MD #### GLYHGB #### [address] [address] Cotton Feeder: Wellington Back MD Neutrophil (Seg) 86 % High 36-66 [facility] Comment on above: Performed By: #### S TROKE #### [facility] [place] [place] [address] Cotton Feeder: Malik Hart DO [address] [address] Cotton Feeder: Wellington Back MD #### GLYHGB #### [address] [address] Cotton Feeder: Wellington Back MD aPTT Coag (Bld) [Time] 21.8 s Normal 20.5-30.5 [facility] Comment on above: Result Comment: IV Heparin Therapy Range: 48.6-77.8 Performed By: #### S STAR #### [facility] [address] [place] [address] Cotton Feeder: Malik Hart DO [address] [address] Cotton Feeder: Wellington Back MD #### GLYHGB #### [address] [address] Cotton Feeder: Wellington Back MD INR Coag (PPP) [Relative time] 1.1 {INR} Normal [facility] Comment on above: Result Comment: Therapeutic Range: Moderate Anticoagulant Intensity: INR = 2.0-3.0 High Anticoagulant Intensity: INR = 2.5-3.5 Performed By: #### S STAR #### [facility] [place] [address] Cotton Feeder: Malik Hart DO [address] [address] Cotton Feeder: Wellington Back MD #### GLYHGB #### [address] [address] Cotton Feeder: Wellington Back MD PT Coag (PPP) [Time] 11.2 s Normal 9.1-12.3 [facility] Comment on above: Performed By: #### S STAR #### [facility] [address] [place] [address] Cotton Feeder: Malik Hart DO [address] [address] Cotton Feeder: Wellington Back MD #### GLYHGB #### [address] [address] Cotton Feeder: Wellington Back MD Erythrocyte distribution width (RBC) [Ratio] 14.6 % High 11.8-14.4 [facility] Comment on above: Performed By: #### S STAR #### [facility] [address] [place] [address] Cotton Feeder: Malik Hart [address] [address] Cotton Feeder: Wellington Back MD #### GLYHGB #### [address] [address] Cotton Feeder: Wellington Back MD Hematocrit (Bld) [Volume fraction] 35.8 % Low 36.3-47.1 [facility] Comment on above: Performed By: #### S STAR #### [facility] [address] [place] [address] Cotton Feeder: Malik Hart DO [address] [address] Cotton Feeder: Wellington Back MD #### GLYHGB #### [address] [address] Cotton Feeder: Wellington Back MD Hemoglobin (Bld) [Mass/Vol] 11.4 g/dL Low 11.9-15.1 [facility] Comment on above: Performed By: #### S NASIMKE #### [facility] [address] [place] [address] Cotton Feeder: Fanelly, Malik, [address] [address] Cotton Feeder: Wellington Back MD #### GLYHGB #### [address] [address] Cotton Feeder: Wellnig[place] Back MD MCH (RBC) [Entitic mass] 29.8 pg Normal 25.2-33.5 [facility] Comment on above: Performed By: #### Marina GRAVES #### [facility] [address] [place] [address] Cotton Feeder: Malik Hart [address] [address] Cotton Feeder: Wellington Back MD #### GLYHGB #### [address] [address] Cotton Feeder: Wellington Back MD MCHC (RBC) [Mass/Vol] 31.8 g/dL Normal 28.4-34.8 [facility] Comment on above: Performed By: #### Marina GRAVES #### [facility] [address] [place] [address] Cotton Feeder: Malik Hart [address] [address] Cotton Feeder: Wellington Back MD #### GLYHGB #### [address] [address] Cotton Feeder: Wellington Back MD MCV (RBC) [Entitic vol] 93.7 fL Normal 82.6-102.9 [facility] Comment on above: Performed By: #### Marina GRAVES #### [facility] [address] [place] [address] Cotton Feeder: Malik Hart DO [address] [address] Cotton Feeder: Wellington Back MD #### GLYHGB #### [address] [address] Cotton Feeder: Wellington Back MD NRBC Automated 0.0 per 100 WBC Normal 0.0 [facility] Comment on above: Performed By: #### S STAR #### [facility] [address] [place] [address] Cotton Feeder: Malik Hart DO [address] [address] Cotton Feeder: Wellington Back MD #### GLYHGB #### [address] [address] Cotton Feeder: Wellington Back MD Platelet mean volume (Bld) [Entitic vol] 9.4 fL Normal 8.1-13.5 [facility] Comment on above: Performed By: #### S STAR #### [facility] [place] [place] [address] Cotton Feeder: Malik Hart [address] [address] Cotton Feeder: Wellington Back MD #### GLYHGB #### [address] [address] Cotton Feeder: Wellington Back MD Platelets (Bld) [#/Vol] 215 10*3/uL Normal 138-453 [facility] Comment on above: Performed By: #### S STAR #### [facility] [address] [place] [address] Cotton Feeder: Malik Hart DO [address] [address] Cotton Feeder: Wellington Back MD #### GLYHGB #### [address] [address] Cotton Feeder: Wellington Back MD RBC (Bld) [#/Vol] 3.82 10*6/uL Low 3.95-5.11 [facility] Comment on above: Performed By: #### S STAR #### [facility] [address] [place] [address] Cotton Feeder: Malik Hart DO [address] [address] Cotton Feeder: Wellington Back MD #### GLYHGB #### [address] [address] Cotton Feeder: Wellington Back MD WBC (Bld) [#/Vol] 11.8 10*3/uL High 3.5-11.3 [facility] Comment on above: Performed By: #### Marina GRAVES #### [facility] [address] [place] [address] Cotton Feeder: Malik Hart DO [address] [address] Cotton Feeder: Wellington Back MD #### GLYHGB #### [address] [address] Cotton Feeder: Wellington Back MD Auto Diff Performed NOT REPORTED Normal [facility] Comment on above: Performed By: #### S STAR #### [facility] [address] [place] [address] Cotton Feeder: Malik Hart DO [address] [address] Cotton Feeder: Wellington Back MD #### GLYHGB #### [address] [address] Cotton Feeder: Wellington Back MD BUN/CRE Ratio NOT REPORTED Normal 9-20 [facility] Comment on above: Performed By: #### S STAR #### [facility] [address] [place] [address] Cotton Feeder: Malik Hart DO [address] [address] Cotton Feeder: Wellington Back MD #### GLYHGB #### [address] [address] Cotton Feeder: Wellington Back MD Performed By: #### B MPX, PROL, TSHX, LIPR #### [address] [address] Cotton Feeder: Wellington Back MD Platelet Estimate NOT REPORTED Normal [facility] Comment on above: Performed By: #### S STAR #### [facility] [address] [place] [address] Cotton Feeder: Malik Hart [address] [address] Cotton Feeder: Wellington Back MD #### GLYHGB #### [address] [address] Cotton Feeder: Wellington Back MD RBC morphology finding Nom (Bld) NOT REPORTED Normal [facility] Comment on above: Performed By: #### S STAR #### [facility] [address] [place] [address] Cotton Feeder: Malik Hart [address] [address] Cotton Feeder: Wellington Back MD #### GLYHGB #### [address] [address] Cotton Feeder: Wellington aBck MD Staging: NOT REPORTED Normal [facility] Comment on above: Performed By: #### S NASIMKE #### [facility] [address] [place] [address] Cotton Feeder: Malik Hart DO [address] [address] Cotton Feeder: Wellington Back MD #### GLYHGB #### [address] [address] Cotton Feeder: Wellington Back MD Performed By: #### B MPX, PROL, TSHX, LIPR #### [address] [address] Cotton Feeder: Wellington Back MD Troponin Interp. NOT REPORTED Normal [facility] Comment on above: Performed By: #### S STAR #### [facility] [place] [place] [address] Cotton Feeder: Malik Hart [address] [address] Cotton Feeder: Wellington Back MD #### GLYHGB #### [address] [address] Cotton Feeder: Wellington Back MD Troponin T NOT REPORTED Normal <0.03 [facility] Comment on above: Performed By: #### S NASIMKE #### [facility] [address] [place] [address] Cotton Feeder: Malik Hart DO [address] [address] Cotton Feeder: Wellington Back MD #### GLYHGB #### [address] [address] Cotton Feeder: Wellington Back MD WBC Morphology NOT REPORTED [facility] Comment on above: Performed By: #### S STAR #### [facility] [address] [place] [address] Cotton Feeder: Malik Hart DO [facility] [employer] [address] [place], [place] [id number] Cotton Feeder: Wellington Back MD #### GLYHGB #### [employer] [address] [place], [place] [id number] Cotton Feeder: Wellington Back MD Basic Metabolic Panel w/ Ref rima to MGOrdered By: Law Stratton on 06-02-2020 Anion gap [Moles/Vol] 9 mmol/L 9 - 17 mmol/L [employer] Phone: Calcium [Mass/Vol] 8.9 mg/dL 8.6 - 10. 4 mg/dL [facility] Phone: Chloride [Moles/Vol] 105 mmol/L 98 - 10 7 mmol/L [facility] Phone: CO2 [Moles/Vol] 24 mmol/L 20 - 31 mmol/L [facility] Phone: Creatinine [Mass/Vol] 0.61 mg/dL 0.50 - 0.90 mg/dL [facility] Phone: GFR >60 >60 mL/min [employer] Phone: GFR Non- >60 >60 mL/min [facility] Phone: Glucose [Mass/Vol] 113 mg/dL High 70 - 99 mg/dL [facility] Phone: Potassium [Moles/Vol] 4.2 mmol/L 3.7 - 5.3 mmol/L [facility] Phone: Sodium [Moles/Vol] 138 mmol/L 135 - 144 mmol/L [facility] Phone: Urea nitrogen (BldV) [Mass/Vol] 30 mg/dL High 8 - 23 mg/dL [employer] Work Phone: Urea nitrogen/Creatinine (Bld) [Mass ratio] 49 High [employer] Work Phone: CBC Auto DifferentialOrdered By: Law Stratton on 06-02-2020 Absolute Eos # 0.10 [employer] [facility] Work Phone: Absolute Immature Granulocyte 0.00 [employer] Work Phone: Absolute Lymph # 0.38 Low [facility] Work Phone: Absolute Carter # 0.48 [employer] [facility] Work Phone: Basophils (Bld) [#/Vol] 0.00 10*3/uL [facility] Phone: Basophils/100 WBC (Bld) 0 % 0 - 2 % [facility] Phone: Differential Type NOT REPORTED [facility] Phone: Eosinophils/100 WBC (Bld) 1 % 1 - 4 % [employer] Phone: Hematocrit (Bld) [Volume fraction] 36.5 % 36.3 - 47.1 % [facility] Phone: Hemoglobin.gastrointes tinal spec 1 Ql (Stl) 11.7 g/dL Low 11.9 - 15.1 g/dL [facility] Phone: Immature granulocytes/100 WBC (Bld) 0 % 0 [facility] Phone: Interpretation and review of laboratory results Abnormal [facility] Phone: Lymphocytes/100 WBC (Bld) 4 % Low 24 - 43 % [employer] Phone: MCH (RBC) [Entitic mass] 29.3 pg 25.2 - 33.5 pg [facility] Phone: MCHC (RBC) [Mass/Vol] 32.1 g/dL 28.4 - 34.8 g/dL [employer] Phone: MCV (RBC) [Entitic vol] 91.3 fL 82.6 - 102.9 fL [facility] Phone: Monocytes/100 WBC (Bld) 5 % 3 - 12 % [employer] Phone: Morphology Maninder (Bld) [Interp] Normal [facility] Phone: NRBC Automated 0.0 0.0 per 100 WBC [employer] Phone: Platelet distribution width (Bld) [Ratio] 13.7 % 11.8 - 14.4 % [employer] Phone: Platelet Estimate NOT REPORTED [employer] Phone: Platelet mean volume (Bld) [Entitic vol] 9.7 fL 8.1 - 13.5 fL [employer] Phone: Platelets (Bld) [#/Vol] 191 10*3/uL [employer] Phone: RBC (Bld) [#/Vol] 4.00 10*6/uL 3.95 - 5.1 1 m/uL [facility] Phone: RBC (Bld) [#/Vol] NOT REPORTED [facility] Phone: Segmented neutrophils/100 WBC (Bld) 90 % High 36 - 65 % [facility] Phone: Segs Absolute 8.64 [employer] Work Phone: WBC (Bld) [#/Vol] 9.6 10*3/uL [employer] Phone: WBC (Bld) [#/Vol] NOT REPORTED [facility] Phone: COVID-19, RapidOrdered By: Michael Stratton on 06-02-2020 SARS-CoV-2 (COVID-19) RNA LADAN+probe Ql (Unsp spec) Not detected Not Detected [facility] Phone: Comment on above: Rapid NAAT: The specimen is NEGATIVE for SARS-CoV-2, the novel coronavirus associated with COVID-19. The ID NOW COVID-19 assay is designed to detect the virus that causes COVID-19 in patients with signs and symptoms of infection who are suspected of COVID-19. An individual without symptoms of COVID-19 and who is not shedding SARS-CoV-2 virus would expect to have a negative (not detected) result in this assay. Negative results should be treated as presumptive and, if inconsistent with clinical signs and symptoms or necessary for patient management, should be tested with an alternative molecular assay. Negative results do not preclude SARS-CoV-2 infection and should not be used as the sole basis for patient management decisions. Fact sheet for Healthcare Providers: https://www.fda.gov/media/639433/download Fact sheet for Patients: https://www.fda.gov/media/888052/download Methodology: Isothermal Nucleic Acid Amplification Specimen Description .NASOPHARYNGEAL SWAB [facility] Phone: CT Head WO ContrastOrdered B y: Law Stratton on 06-02-2020 No acute intracrania l abnormality. [facility] Phone: EXAMINATION: CT OF T HE HEAD WITHOUT CONTRAST 06/02/2020 12:12 pm TECHNIQUE: CT of the head was performed without the administration of intravenous contrast. Dose modulation, iterative reconstruction, and/or weight based adjustment of the mA/kV was utilized to reduce the radiation dose to as low as reasonably achievable. COMPARISON: 04/17/2020 HISTORY: ORDERING SYSTEM PROVIDED HISTORY: headache with past medical history of aneurysm TECHNOLOGIST PROVIDED HISTORY: headache with past medical history of aneurysm Decision Support Exception->Emergency Medical Condition (MA) FINDINGS: BRAIN/VENTRICLES: There is no acute intracranial hemorrhage, mass effect or midline shift. No abnormal extra-axial fluid collection. The kevin-white differentiation is maintained without evidence of an acute infarct. There is no evidence of hydrocephalus. ORBITS: The visualized portion of the orbits demonstrate no acute abnormality. SINUSES: The visualized paranasal sinuses and mastoid air cells demonstrate no acute abnormality. SOFT TISSUES/SKULL: No acute abnormality of the visualized skull or soft tissues. Vascular calcifications are seen compatible with atherosclerotic disease. [facility] Phone: Jaquan, pn Incoming Radiant Results From [employer] - 06/02/2020 3:27 PM EDT EXAMINATION: CT OF THE HEAD WITHOUT CONTRAST 06/02/2020 12:12 pm TECHNIQUE: CT of the head was performed without the administration of intravenous contrast. Dose modulation, iterative reconstruction, and/or weight based adjustment of the mA/kV was utilized to reduce the radiation dose to as low as reasonably achievable. COMPARISON: 04/17/2020 HISTORY: ORDERING SYSTEM PROVIDED HISTORY: headache with past medical history of aneurysm TECHNOLOGIST PROVIDED HISTORY: headache with past medical history of aneurysm Decision Support Exception->Emergency Medical Condition (MA) FINDINGS: BRAIN/VENTRICLES: There is no acute intracranial hemorrhage, mass effect or midline shift. No abnormal extra-axial fluid collection. The kevin-white differentiation is maintained without evidence of an acute infarct. There is no evidence of hydrocephalus. ORBITS: The visualized portion of the orbits demonstrate no acute abnormality. SINUSES: The visualized paranasal sinuses and mastoid air cells demonstrate no acute abnormality. SOFT TISSUES/SKULL: No acute abnormality of the visualized skull or soft tissues. Vascular calcifications are seen compatible with atherosclerotic disease. IMPRESSION: No acute intracranial abnormality. [facility] Phone: Hepatic Function PanelOrdere d By: Law Stratton on 06-02-2020 Albumin [Mass/Vol] 3.8 g/dL 3.5 - 5.2 g/dL [facility] Phone: Albumin/Globulin [Mass ratio] 1.6 {ratio} [facility] Phone: ALP (Bld) [Catalytic activity/Vol] 75 U/L 35 - 104 U/L [facility] Phone: ALT [Catalytic activity/Vol] 17 U/L 5 - 33 U/L [facility] Phone: AST [Catalytic activity/Vol] 21 U/L <32 [facility] Phone: Bilirubin [Mass/Vol] 0.43 mg/dL 0.3 - 1 .2 mg/dL [facility] Phone: Bilirubin, Indirect CANNOT BE CALCULATED 0.00 - 1.00 mg/dL [facility] Phone: Bilirubin.indirect [Mass/Vol] mg/dL <0.31 mg/dL [facility] Phone: Free PSA/Total PSA [Mass fraction] 6.2 g/dL Low 6.4 - 8.3 g/dL [facility] Phone: Globulin NOT REPORTED 1.5 - 3.8 g/dL [facility] Phone: Laboratory - Chemistry and C hemistry - challengeOrdered By: Law Stratton on 06-02-2020 GFR/1.73 sq M.predicted MDRD (S/P/Bld) [Vol rate/Area] [facility] Phone: Comment on above: Average GFR for 70 o r more years old: 75 mL/min/1.73sq m Chronic Kidney Disease: <60 mL/min/1.73sq m Kidney failure: <15 mL/min/1.73sq m eGFR calculated using average adult body mass. Additional eGFR calculator available at: http://www.Labmeeting/multiple_crcl_2012.htm Stage 1: Some kidney damage normal GFR Stage 2: Mild kidney damage GFR 60-89 Stage 3: Moderate kidney damage GFR 30-59 Stage 4: Severe kidney damage GFR 15-29 Stage 5: Severe kidney damage GFR <15 ESRD - chronic treatment by dialysis or transplant LipaseOrdered By: Sharla on 06-02-2020 Lipase [Catalytic activity/Vol] 25 U/L 13 - 60 U/L [facility] Phone: No Panel InformationOrdered By: Law Stratton on 06-02-2020 Interpretation and review of laboratory results Abnormal [facility] Phone: CBC auto differentialon - Basophils (Bld) [#/Vol] 0.03 10*3/uL [facility] Phone: Basophils/100 WBC (Bld) 1 % 0 - 2 % [facility] Phone: Differential Type NOT REPORTED [facility] Phone: Eosinophils (Bld) [#/Vol] 0.15 10*3/uL [facility] Phone: Eosinophils/100 WBC (Bld) 3 % 1 - 4 % [facility] Phone: Erythrocyte distribution width (RBC) [Ratio] 13.5 % 11.8 - 14.4 % [facility] Phone: Hematocrit (Bld) [Volume fraction] 36.7 % 36.3 - 47.1 % [facility] Phone: Hemoglobin (Bld) [Mass/Vol] 11.8 g/dL Low 11.9 - 15.1 g/dL [facility] Phone: Immature granulocytes (Bld) [#/Vol] 0 % 0 [facility] Phone: Immature granulocytes (Bld) [#/Vol] 10*3/uL [facility] Phone: Interpretation and review of laboratory results Abnormal [facility] Phone: Lymphocytes (Bld) [#/Vol] 0.98 10*3/uL Low [facility] Phone: Lymphocytes/100 WBC (Bld) 16 % Low 24 - 43 % [facility] Phone: MCH (RBC) [Entitic mass] 29.5 pg 25.2 - 33.5 pg [facility] Phone: MCHC (RBC) [Mass/Vol] 32.2 g/dL 28.4 - 34.8 g/dL [facility] Phone: MCV (RBC) [Entitic vol] 91.8 fL 82.6 - 102.9 fL [facility] Phone: Monocytes (Bld) [#/Vol] 0.69 10*3/uL [facility] Phone: Monocytes/100 WBC (Bld) 12 % 3 - 12 % [facility] Phone: Platelet mean volume (Bld) [Entitic vol] 9.7 fL 8.1 - 13.5 fL [facility] Phone: Platelets (Bld) [#/Vol] 212 10*3/uL [facility] Phone: Platelets (Bld) [#/Vol] NOT REPORTED [facility] Phone: RBC (Bld) [#/Vol] 4.00 10*6/uL 3.95 - 5.1 1 m/uL [facility] Phone: RBC morphology finding Nom (Bld) NOT REPORTED [facility] Phone: Segmented neutrophils/100 WBC (Bld) 68 % High 36 - 65 % [facility] Phone: Segs Absolute 4.13 [employer] Work Phone: WBC (Bld) [#/Vol] 6.0 10*3/uL [facility] Phone: WBC (Bld) [#/Vol] 0.0 10*3/uL 0.0 per 10 0 WBC [facility] Phone: WBC Morphology NOT REPORTED [facility] Work Phone: Comprehensive Metabolic Pane john 05-08-2020 Albumin [Mass/Vol] 4.3 g/dL 3.5 - 5.2 g/dL [facility] Phone: Albumin/Globulin [Mass ratio] 1.7 {ratio} [facility] Phone: ALP [Catalytic activity/Vol] 67 U/L 35 - 104 U/L [facility] Phone: ALT [Catalytic activity/Vol] 13 U/L 5 - 33 U/L [facility] Phone: Anion gap [Moles/Vol] 9 mmol/L 9 - 17 mmol/L [facility] Phone: AST [Catalytic activity/Vol] 19 U/L <32 [facility] Phone: Bilirubin Ql (U) 0.53 mg/dL 0.3 - 1.2 mg/dL [facility] Phone: Bun/Cre Ratio 25 High [employer] Work Phone: Calcium [Mass/Vol] 9.8 mg/dL 8.6 - 10. 4 mg/dL [facility] Phone: Chloride [Moles/Vol] 104 mmol/L 98 - 10 7 mmol/L [facility] Phone: CO2 [Moles/Vol] 25 mmol/L 20 - 31 mmol/L [facility] Phone: Creatinine [Mass/Vol] 0.6 mg/dL 0.50 - 0.90 mg/dL [facility] Phone: GFR >60 >60 mL/min [employer] Phone: GFR Non- >60 >60 mL/min [facility] Phone: Glucose [Mass/Vol] 94 mg/dL 70 - 99 mg/dL [facility] Phone: Interpretation and review of laboratory results Abnormal [facility] Phone: Potassium [Moles/Vol] 3.9 mmol/L 3.7 - 5.3 mmol/L [facility] Phone: Protein [Mass/Vol] 6.9 g/dL 6.4 - 8.3 g/dL [employer] Phone: Sodium [Moles/Vol] 138 mmol/L 135 - 144 mmol/L [facility] Phone: Urea nitrogen [Mass/Vol] 15 mg/dL 8 - 23 mg/dL [facility] Phone: Metabolic Panelon 05-08-2020 GFR/1.73 sq M predicted among non-blacks MDRD (S/P/Bld) [Vol rate/Area] [facility] Phone: Comment on above: Stage 1: Some kidney damage normal GFR Stage 2: Mild kidney damage GFR 60-89 Stage 3: Moderate kidney damage GFR 30-59 Stage 4: Severe kidney damage GFR 15-29 Stage 5: Severe kidney damage GFR <15 ESRD - chronic treatment by dialysis or transplant Average GFR for 70 o r more years old: 75 mL/min/1.73sq m Chronic Kidney Disease: <60 mL/min/1.73sq m Kidney failure: <15 mL/min/1.73sq m eGFR calculated using average adult body mass. Additional eGFR calculator available at: http://www.Labmeeting/multiple_crcl_2012.htm Troponinon 05-08-2020 Interpretation and review of laboratory results Abnormal [facility] Phone: Troponin I.cardiac [Mass/Vol] NOT REPORTED [facility] Phone: Troponin T.cardiac [Mass/Vol] NOT REPORTED <0.03 ng/mL [facility] Phone: Troponin, High Sensitivity 16 ng/L High 0 - 14 ng/L [facility] Phone: Comment on above: High Sensitivity Troponin values cannot be compared with other Troponin methodologies. Patients with high levels of Biotin oral intake (i.e >5mg/day) may have falsely decreased Troponin levels. Samples collected within 8 hours of biotin intake may require additional information for diagnosis. Interpretation and review of laboratory results Abnormal [facility] Phone: Troponin I.cardiac [Mass/Vol] NOT REPORTED [facility] Phone: Troponin T.cardiac [Mass/Vol] NOT REPORTED <0.03 ng/mL [facility] Phone: Troponin, High Sensitivity 17 ng/L High 0 - 14 ng/L [facility] Phone: Comment on above: High Sensitivity Troponin values cannot be compared with other Troponin methodologies. Patients with high levels of Biotin oral intake (i.e >5mg/day) may have falsely decreased Troponin levels. Samples collected within 8 hours of biotin intake may require additional information for diagnosis. Basic Metabolic Panel w/ Ref rima to MGon 04-18-2020 Anion gap [Moles/Vol] 7 mmol/L Low 9 - 17 mmol/L [facility] Phone: Bun/Cre Ratio 31 High [employer] Work Phone: Calcium [Mass/Vol] 8.9 mg/dL 8.6 - 10. 4 mg/dL [facility] Phone: Chloride [Moles/Vol] 107 mmol/L 98 - 10 7 mmol/L [facility] Phone: CO2 [Moles/Vol] 26 mmol/L 20 - 31 mmol/L [facility] Phone: Creatinine [Mass/Vol] 0.72 mg/dL 0.50 - 0.90 mg/dL [facility] Phone: GFR >60 >60 mL/min [employer] Phone: GFR Non- >60 >60 mL/min [facility] Phone: Glucose [Mass/Vol] 96 mg/dL 70 - 99 mg/dL [facility] Phone: Interpretation and review of laboratory results Abnormal [facility] Phone: Potassium [Moles/Vol] 4.2 mmol/L 3.7 - 5.3 mmol/L [facility] Phone: Sodium [Moles/Vol] 140 mmol/L 135 - 144 mmol/L [facility] Phone: Urea nitrogen [Mass/Vol] 22 mg/dL 8 - 23 mg/dL [facility] Phone: CBCon 04-18-2020 Erythrocyte distribution width (RBC) [Ratio] 13.2 % 11.8 - 14.4 % [facility] Phone: Hematocrit (Bld) [Volume fraction] 34.5 % Low 36.3 - 47.1 % [facility] Phone: Hemoglobin (Bld) [Mass/Vol] 11.0 g/dL Low 11.9 - 15.1 g/dL [facility] Phone: Interpretation and review of laboratory results Abnormal [facility] Phone: MCH (RBC) [Entitic mass] 29.6 pg 25.2 - 33.5 pg [facility] Phone: MCHC (RBC) [Mass/Vol] 31.9 g/dL 28.4 - 34.8 g/dL [facility] Phone: MCV (RBC) [Entitic vol] 93.0 fL 82.6 - 102.9 fL [facility] Phone: Platelet mean volume (Bld) [Entitic vol] 10.0 fL 8.1 - 13.5 fL [facility] Phone: Platelets (Bld) [#/Vol] 192 10*3/uL [facility] Phone: RBC (Bld) [#/Vol] 3.71 10*6/uL Low 3.95 - 5.1 1 m/uL [facility] Phone: WBC (Bld) [#/Vol] 5.2 10*3/uL [employer] Phone: WBC (Bld) [#/Vol] 0.0 10*3/uL 0.0 per 10 0 WBC [facility] [employer] Work Phone: ECHOCARDIOGRAM LIMITEDon [facility] Transthoracic Echocardiography Report (TTE) Patient Name SPENCER Date of Study 04/18/2020 EVER Mckay Date of 1940 Gender Female Age 79 year(s) Race Room Number 0315 Height: 63 inch, 160.02 cm Corporate ID [id number] Weight: 163 pounds, 73.9 kg # Patient Acct [id number] BSA: 1.77 m^2 BMI: 28.87 # kg/m^2 MR # [id number] Communication Spec Rylee Verma Interpreting Physician Alsisa Marx Fellow Referring Nurse Practitioner Interpreting Referring Physician Alissa Marx Type of Study TTE procedure:2D Echocardiogram, Bubble Study. Procedure Date Date: 04/18/2020 Start: 02:58 PM Study Location: [facility] History / Tech. Comments: TIA, Bubble study PMHX; DM, TIa, HTN Patient Status: Inpatient Contrast Medium: Bubble Study. Height: 63 inches Weight: 163 pounds BSA: 1.77 m^2 BMI: 28.87 kg/m^2 BP: 154/64 mmHg CONCLUSIONS Summary Normal left ventricular size and systolic function. No significant wall motion abnormalities were identified. Estimated LV EF >55 %. A saline contrast study was performed and showed no evidence of an interatrial communication. Signature FINDINGS Left Ventricle Normal left ventricular size and systolic function. No significant wall motion abnormalities were identified. Estimated LV EF >55 %. Right Atrium A saline contrast study was performed and showed no evidence of an interatrial communication. M-mode / 2D Measurements & Calculations: LVIDd:4.07 cm(3.7 - 5.6 cm) Diastolic Volume:67.27 ml LVIDs:3.03 cm(2.2 - 4.0 cm) Systolic Volume:27.88 ml IVSd:0.91 cm(0.6 - 1.1 cm) Aortic Root:3.1 cm(2.0 - 3.7 cm) LVPWd:0.9 cm(0.6 - 1.1 cm) LA Dimension: 3.51 cm(1.9 - 4.0 cm) Fractional Shortenin.55 % AV Cusp Separation: 1.66 cm Calculated LVEF (%): 58.56 % [employer] Work Phone: Jaquan, [facility] Incoming Cardio Results From [facility]/[employer] - 04/18/2020 6:12 PM EST [facility] Transthoracic Echocardiography Report (TTE) Patient Name SPENCER Date of Study 04/18/2020 EVER Mckay Date of 1940 Gender Female Age 79 year(s) Race Room Number 0315 Height: 63 inch, 160.02 cm Corporate ID [id number] Weight: 163 pounds, 73.9 kg # Patient Acct [id number] BSA: 1.77 m^2 BMI: 28.87 # kg/m^2 MR # [id number] Communication Spec Rylee Verma Interpreting Physician Alissa Marx Fellow Referring Nurse Practitioner Interpreting Referring Physician Alissa Marx Fellow Type of Study TTE procedure:2D Echocardiogram, Bubble Study. Procedure Date Date: 04/18/2020 Start: 02:58 PM Study Location: [facility] History / Tech. Comments: TIA, Bubble study PMHX; DM, TIa, HTN Patient Status: Inpatient Contrast Medium: Bubble Study. Height: 63 inches Weight: 163 pounds BSA: 1.77 m^2 BMI: 28.87 kg/m^2 BP: 154/64 mmHg CONCLUSIONS Summary Normal left ventricular size and systolic function. No significant wall motion abnormalities were identified. Estimated LV EF >55 %. A saline contrast study was performed and showed no evidence of an interatrial communication. Signature --------- - --------- - --------- - --------- - FINDINGS Left Ventricle Normal left ventricular size and systolic function. No significant wall motion abnormalities were identified. Estimated LV EF >55 %. Right Atrium A saline contrast study was performed and showed no evidence of an interatrial communication. M-mode / 2D Measurements & Calculations: LVIDd:4.07 cm(3.7 - 5.6 cm) Diastolic Volume:67.27 ml LVIDs:3.03 cm(2.2 - 4.0 cm) Systolic Volume:27.88 ml IVSd:0.91 cm(0.6 - 1.1 cm) Aortic Root:3.1 cm(2.0 - 3.7 cm) LVPWd:0.9 cm(0.6 - 1.1 cm) LA Dimension: 3.51 cm(1.9 - 4.0 cm) Fractional Shortenin.55 % AV Cusp Separation: 1.66 cm Calculated LVEF (%): 58.56 % [facility] Phone: EKG 12 Leadon 04-18-2020 Atrial Rate 64 BPM [facility] Phone: P [place] 72 degrees [employer] Phone: P-R Interval 162 ms [facility] Phone: Q-T Interval 410 ms [facility] Phone: QRS Duration 102 ms [facility] Phone: QTc Calculation (Bazett) 422 ms [facility] Phone: R [place] 64 degrees [facility] Phone: T [place] 50 degrees [facility] Phone: Ventricular Rate 64 BPM [employer] Phone: Normal sinus rhythm Cannot rule out Anterior infarct (cited on or before 28-JUN-2009) Abnormal ECG When compared with ECG of 28-JUN-2009 03:41, No significant change was found Confirmed by MARCELINO CLIFFORD ([id number]) on 04/18/2020 8:42:07 AM [facility] Phone: Jaquan, Johnie Incoming E kg Results From [employer] Thomas - 04/18/2020 8:42 AM EST Normal sinus rhythm Cannot rule out Anterior infarct (cited on or before 28-JUN-2009) Abnormal ECG When compared with ECG of 28-JUN-2009 03:41, No significant change was found Confirmed by MARCELINO CLIFFORD ([id number]) on 04/18/2020 8:42:07 AM [facility] Phone: Hemoglobin A1con 04-18-2020 Glucose [Mass/Vol] 114 mg/dL [facility] Phone: Comment on above: The ADA and AACC rec ommend providing the estimated average glucose result to permit better patient understanding of their HBA1c result. HbA1c (Bld) [Mass fraction] 5.6 % 4.0 - 6.0 % [employer] Phone: Lipid panel - fastingon 04-08 Cholesterol [Mass/Vol] 153 mg/dL <200 [employer] Phone: Comment on above: Cholesterol Guidelines: <200 Desirable 200-240 Borderline >240 Undesirable Cholesterol in HDL [Mass/Vol] 78 mg/dL >40 [facility] Phone: Comment on above: HDL Guidelines: <40 Undesirable 40-59 Borderline >59 Desirable Cholesterol in LDL [Mass/Vol] 65 mg/dL 0 - 130 mg/dL [employer] Phone: Comment on above: LDL Guidelines: <100 Desirable 100-129 Near to/above Desirable 130-159 Borderline >159 Undesirable Direct (measured) LDL and calculated LDL are not interchangeable tests. Cholesterol in VLDL [Mass/Vol] NOT REPORTED 1 - 30 mg/dL [facility] Phone: Cholesterol.total/Chol esterol in HDL [Mass ratio] 2 {ratio} <5 [facility] Phone: Triglyceride [Mass/Vol] 51 mg/dL <150 [employer] Phone: Comment on above: Triglyceride Guidelines: <150 Desirable 150-199 Borderline 200-499 High >499 Very high Based on AHA Guidelines for fasting triglyceride, November 2011. Metabolic Panelon 04-18-2020 GFR/1.73 sq M predicted among non-blacks MDRD (S/P/Bld) [Vol rate/Area] [facility] Phone: Comment on above: Average GFR for 70 o r more years old: 75 mL/min/1.73sq m Chronic Kidney Disease: <60 mL/min/1.73sq m Kidney failure: <15 mL/min/1.73sq m eGFR calculated using average adult body mass. Additional eGFR calculator available at: http://www.Labmeeting/multiple_crcl_2011.htm Stage 1: Some kidney damage normal GFR Stage 2: Mild kidney damage GFR 60-89 Stage 3: Moderate kidney damage GFR 30-59 Stage 4: Severe kidney damage GFR 15-29 Stage 5: Severe kidney damage GFR <15 ESRD - chronic treatment by dialysis or transplant APTTon 04-17-2020 aPTT Coag (Bld) [Time] 25.6 s [employer] Phone: Comment on above: IV Heparin Therapy Range: 62.0-94.0 CBC Auto Differentialon 04-08 Basophils (Bld) [#/Vol] 0.03 10*3/uL [employer] Phone: Basophils/100 WBC (Bld) 1 % 0 - 2 % [employer] Phone: Differential Type NOT REPORTED [facility] Phone: Eosinophils (Bld) [#/Vol] 0.13 10*3/uL [employer] Phone: Eosinophils/100 WBC (Bld) 2 % 1 - 4 % [employer] Phone: Erythrocyte distribution width (RBC) [Ratio] 13.2 % 11.8 - 14.4 % [employer] Phone: Hematocrit (Bld) [Volume fraction] 37.6 % 36.3 - 47.1 % [employer] Phone: Hemoglobin (Bld) [Mass/Vol] 11.8 g/dL Low 11.9 - 15.1 g/dL [employer] Phone: Immature granulocytes (Bld) [#/Vol] 0 % 0 [facility] Phone: Immature granulocytes (Bld) [#/Vol] 10*3/uL [employer] Phone: Interpretation and review of laboratory results Abnormal [employer] Phone: Lymphocytes (Bld) [#/Vol] 1.41 10*3/uL [employer] Phone: Lymphocytes/100 WBC (Bld) 23 % Low 24 - 43 % [employer] Phone: MCH (RBC) [Entitic mass] 29.1 pg 25.2 - 33.5 pg [employer] Phone: MCHC (RBC) [Mass/Vol] 31.4 g/dL 28.4 - 34.8 g/dL [employer] Phone: MCV (RBC) [Entitic vol] 92.8 fL 82.6 - 102.9 fL [employer] Phone: Monocytes (Bld) [#/Vol] 0.69 10*3/uL [employer] Phone: Monocytes/100 WBC (Bld) 11 % 3 - 12 % [employer] Phone: Platelet mean volume (Bld) [Entitic vol] 10.8 fL 8.1 - 13.5 fL [employer] Phone: Platelets (Bld) [#/Vol] 210 10*3/uL [employer] Work Phone: Platelets (Bld) [#/Vol] NOT REPORTED [employer] Work Phone: RBC (Bld) [#/Vol] 4.05 10*6/uL 3.95 - 5.1 1 m/uL [employer] Work Phone: RBC morphology finding Nom (Bld) NOT REPORTED [employer] Work Phone: Segmented neutrophils/100 WBC (Bld) 63 % 36 - 65 % [employer] Work Phone: Segs Absolute 3.86 [employer] Work Phone: WBC (Bld) [#/Vol] 0.0 10*3/uL 0.0 per 10 0 WBC [employer] Work Phone: WBC (Bld) [#/Vol] 6.1 10*3/uL [employer] Work Phone: WBC Morphology NOT REPORTED [facility] Work Phone: CT HEAD WO CONTRASTon 2020 EXAMINATION: CT OF T HE HEAD WITHOUT CONTRAST 04/17/2020 3:30 pm TECHNIQUE: CT of the head was performed without the administration of intravenous contrast. Dose modulation, iterative reconstruction, and/or weight based adjustment of the mA/kV was utilized to reduce the radiation dose to as low as reasonably achievable. COMPARISON: CT head October 19, 2012 HISTORY: ORDERING SYSTEM PROVIDED HISTORY: Expressive aphasia TECHNOLOGIST PROVIDED HISTORY: Expressive aphasia Decision Support Exception->Emergency Medical Condition (MA) FINDINGS: BRAIN/VENTRICLES: There is no acute intracranial hemorrhage, mass effect or midline shift. No abnormal extra-axial fluid collection. The kevin-white differentiation is maintained without evidence of an acute infarct. There is no evidence of hydrocephalus. ORBITS: The visualized portion of the orbits demonstrate no acute abnormality. SINUSES: The visualized paranasal sinuses and mastoid air cells demonstrate no acute abnormality. SOFT TISSUES/SKULL: No acute abnormality of the visualized skull or soft tissues. [employer] Work Phone: No acute intracrania l abnormality. Results were sent to radiology results communication. [facility] Phone: Jaquan, [facility] Incoming Radiant Results From [employer]acs - 04/17/2020 3:42 PM EST EXAMINATION: CT OF THE HEAD WITHOUT CONTRAST 04/17/2020 3:30 pm TECHNIQUE: CT of the head was performed without the administration of intravenous contrast. Dose modulation, iterative reconstruction, and/or weight based adjustment of the mA/kV was utilized to reduce the radiation dose to as low as reasonably achievable. COMPARISON: CT head October 19, 2012 HISTORY: ORDERING SYSTEM PROVIDED HISTORY: Expressive aphasia TECHNOLOGIST PROVIDED HISTORY: Expressive aphasia Decision Support Exception->Emergency Medical Condition (MA) FINDINGS: BRAIN/VENTRICLES: There is no acute intracranial hemorrhage, mass effect or midline shift. No abnormal extra-axial fluid collection. The kevin-white differentiation is maintained without evidence of an acute infarct. There is no evidence of hydrocephalus. ORBITS: The visualized portion of the orbits demonstrate no acute abnormality. SINUSES: The visualized paranasal sinuses and mastoid air cells demonstrate no acute abnormality. SOFT TISSUES/SKULL: No acute abnormality of the visualized skull or soft tissues. IMPRESSION: No acute intracranial abnormality. Results were sent to radiology results communication. [facility] Phone: CTA HEAD NECK W CONTRASTon 0 04-17-2020 EXAMINATION: CTA OF THE HEAD AND NECK WITH CONTRAST 04/17/2020 5:04 pm: TECHNIQUE: CTA of the head and neck was performed with the administration of intravenous contrast. Multiplanar reformatted images are provided for review. MIP images are provided for review. Stenosis of the internal carotid arteries measured using NASCET criteria. Dose modulation, iterative reconstruction, and/or weight based adjustment of the mA/kV was utilized to reduce the radiation dose to as low as reasonably achievable. COMPARISON: MRI brain 04/17/2020 HISTORY: ORDERING SYSTEM PROVIDED HISTORY: Expressive aphasia TECHNOLOGIST PROVIDED HISTORY: Expressive aphasia Decision Support Exception->Emergency Medical Condition (MA) FINDINGS: CTA NECK: AORTIC ARCH/ARCH VESSELS: No dissection or arterial injury. No significant stenosis of the brachiocephalic or subclavian arteries. CAROTID ARTERIES: No dissection, arterial injury, or hemodynamically significant stenosis by NASCET criteria. VERTEBRAL ARTERIES: No dissection, arterial injury, or significant stenosis. SOFT TISSUES: The lung apices are clear. No cervical or superior mediastinal lymphadenopathy. The larynx and pharynx are unremarkable. No acute abnormality of the salivary and thyroid glands. BONES: Moderate severe multilevel degenerate change. Anterolisthesis of C4-C5 measuring 3 mm. CTA HEAD: ANTERIOR CIRCULATION: No significant stenosis of the intracranial internal carotid, anterior cerebral, or middle cerebral arteries. 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 Diminutive vertebrobasilar circulation as result. No significant stenosis of the vertebral, basilar, or posterior cerebral arteries. No aneurysm. OTHER: No dural venous sinus thrombosis on this non-dedicated study. BRAIN: No mass effect or midline shift. No extra-axial fluid collection. The kevin-white differentiation is maintained. [employer] Work Phone: Jaquan, [facility] Incoming Radiant Results From [employer] - 04/17/2020 5:46 PM EST EXAMINATION: CTA OF THE HEAD AND NECK WITH CONTRAST 04/17/2020 5:04 pm: TECHNIQUE: CTA of the head and neck was performed with the administration of intravenous contrast. Multiplanar reformatted images are provided for review. MIP images are provided for review. Stenosis of the internal carotid arteries measured using NASCET criteria. Dose modulation, iterative reconstruction, and/or weight based adjustment of the mA/kV was utilized to reduce the radiation dose to as low as reasonably achievable. COMPARISON: MRI brain 04/17/2020 HISTORY: ORDERING SYSTEM PROVIDED HISTORY: Expressive aphasia TECHNOLOGIST PROVIDED HISTORY: Expressive aphasia Decision Support Exception->Emergency Medical Condition (MA) FINDINGS: CTA NECK: AORTIC ARCH/ARCH VESSELS: No dissection or arterial injury. No significant stenosis of the brachiocephalic or subclavian arteries. CAROTID ARTERIES: No dissection, arterial injury, or hemodynamically significant stenosis by NASCET criteria. VERTEBRAL ARTERIES: No dissection, arterial injury, or significant stenosis. SOFT TISSUES: The lung apices are clear. No cervical or superior mediastinal lymphadenopathy. The larynx and pharynx are unremarkable. No acute abnormality of the salivary and thyroid glands. BONES: Moderate severe multilevel degenerate change. Anterolisthesis of C4-C5 measuring 3 mm. CTA HEAD: ANTERIOR CIRCULATION: No significant stenosis of the intracranial internal carotid, anterior cerebral, or middle cerebral arteries. 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 Diminutive vertebrobasilar circulation as result. No significant stenosis of the vertebral, basilar, or posterior cerebral arteries. No aneurysm. OTHER: No dural venous sinus thrombosis on this non-dedicated study. BRAIN: No mass effect or midline shift. No extra-axial fluid collection. The kevin-white differentiation is maintained. IMPRESSION: No large vessel occlusion or hemodynamic stenosis. 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 [facility] Phone: No large vessel occlusion or hemodynamic stenosis. 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 [facility] Phone: Comprehensive Metabolic Pane john 04-17-2020 Albumin [Mass/Vol] 4 g/dL 3.5 - 5.2 g/dL [facility] Phone: Albumin/Globulin [Mass ratio] 1.4 {ratio} [facility] Phone: ALP [Catalytic activity/Vol] 55 U/L 35 - 104 U/L [facility] Phone: ALT [Catalytic activity/Vol] 13 U/L 5 - 33 U/L [facility] Phone: Anion gap [Moles/Vol] 12 mmol/L 9 - 17 mmol/L [facility] Phone: AST [Catalytic activity/Vol] 19 U/L <32 [facility] Phone: Bilirubin Ql (U) 0.39 mg/dL 0.3 - 1.2 mg/dL [facility] Phone: Bun/Cre Ratio 37 [employer] Work Phone: Calcium [Mass/Vol] 9.4 mg/dL 8.6 - 10. 4 mg/dL [facility] Phone: Chloride [Moles/Vol] 103 mmol/L 98 - 10 7 mmol/L [facility] Phone: CO2 [Moles/Vol] 24 mmol/L 20 - 31 mmol/L [facility] Phone: Creatinine [Mass/Vol] 0.62 mg/dL 0.50 - 0.90 mg/dL [facility] Phone: GFR >60 >60 mL/min [employer] Phone: GFR Non- >60 >60 mL/min [facility] Phone: Glucose [Mass/Vol] 92 mg/dL 70 - 99 mg/dL [facility] Phone: Interpretation and review of laboratory results Abnormal [facility] Phone: Potassium [Moles/Vol] 3.7 mmol/L 3.7 - 5.3 mmol/L [facility] Phone: Protein [Mass/Vol] 6.9 g/dL 6.4 - 8.3 g/dL [facility] Phone: Sodium [Moles/Vol] 139 mmol/L 135 - 144 mmol/L [facility] Phone: Urea nitrogen [Mass/Vol] 23 mg/dL 8 - 23 mg/dL [facility] Phone: Glucose, Whole Bloodon 04-17 Glucose [Mass/Vol] 89 mg/dL 74 - 100 mg/dL [facility] Phone: Glucose [Mass/Vol] 68 mg/dL Low 74 - 100 mg/dL [facility] Phone: Interpretation and review of laboratory results Abnormal [facility] Phone: MRI BRAIN WO CONTRASTon 04-08 EXAMINATION: MRI OF THE BRAIN WITHOUT CONTRAST 04/17/2020 4:41 pm TECHNIQUE: Multiplanar multisequence MRI of the brain was performed without the administration of intravenous contrast. COMPARISON: Noncontrast CT head from earlier today HISTORY: ORDERING SYSTEM PROVIDED HISTORY: TIA TECHNOLOGIST PROVIDED HISTORY: TIA Decision Support Exception->Emergency Medical Condition (MA) FINDINGS: INTRACRANIAL STRUCTURES/VENTRICLES: There is minimal parenchymal volume loss. There are a few scattered foci of T2/FLAIR hyperintensity in the periventricular and subcortical white matter, likely related to minimal chronic microvascular disease. There is no acute infarct. No mass effect or midline shift. No acute intracranial hemorrhage. There is no hydrocephalus. The sellar/suprasellar regions appear unremarkable. The normal signal voids within the major intracranial vessels appear maintained. ORBITS: The visualized portion of the orbits demonstrate no acute abnormality. SINUSES: There is scattered minimal mucosal thickening in the paranasal sinuses. The bilateral mastoid air cells are well aerated. BONES/SOFT TISSUES: The bone marrow signal intensity appears normal. The soft tissues demonstrate no acute abnormality. [facility] Phone: Jaquan, [facility] Incoming Radiant Results From [employer] - 04/17/2020 5:13 PM EST EXAMINATION: MRI OF THE BRAIN WITHOUT CONTRAST 04/17/2020 4:41 pm TECHNIQUE: Multiplanar multisequence MRI of the brain was performed without the administration of intravenous contrast. COMPARISON: Noncontrast CT head from earlier today HISTORY: ORDERING SYSTEM PROVIDED HISTORY: TIA TECHNOLOGIST PROVIDED HISTORY: TIA Decision Support Exception->Emergency Medical Condition (MA) FINDINGS: INTRACRANIAL STRUCTURES/VENTRICLES: There is minimal parenchymal volume loss. There are a few scattered foci of T2/FLAIR hyperintensity in the periventricular and subcortical white matter, likely related to minimal chronic microvascular disease. There is no acute infarct. No mass effect or midline shift. No acute intracranial hemorrhage. There is no hydrocephalus. The sellar/suprasellar regions appear unremarkable. The normal signal voids within the major intracranial vessels appear maintained. ORBITS: The visualized portion of the orbits demonstrate no acute abnormality. SINUSES: There is scattered minimal mucosal thickening in the paranasal sinuses. The bilateral mastoid air cells are well aerated. BONES/SOFT TISSUES: The bone marrow signal intensity appears normal. The soft tissues demonstrate no acute abnormality. IMPRESSION: No acute intracranial abnormality. Minimal parenchymal volume loss. Minimal chronic microvascular disease. [facility] Phone: No acute intracrania l abnormality. Minimal parenchymal volume loss. Minimal chronic microvascular disease. [facility] Phone: Metabolic Panelon 04-17-2020 GFR/1.73 sq M predicted among non-blacks MDRD (S/P/Bld) [Vol rate/Area] [facility] Phone: Comment on above: Average GFR for 70 o r more years old: 75 mL/min/1.73sq m Chronic Kidney Disease: <60 mL/min/1.73sq m Kidney failure: <15 mL/min/1.73sq m eGFR calculated using average adult body mass. Additional eGFR calculator available at: http://[email or web address]/multiple_crcl_2012.htm Stage 1: Some kidney damage normal GFR Stage 2: Mild kidney damage GFR 60-89 Stage 3: Moderate kidney damage GFR 30-59 Stage 4: Severe kidney damage GFR 15-29 Stage 5: Severe kidney damage GFR <15 ESRD - chronic treatment by dialysis or transplant POCT Glucoseon 04-17-2020 Glucose [Mass/Vol] 68 mg/dL [facility] Phone: Interpretation and review of laboratory results Normal [facility] Phone: QC OK? ok [facility] Phone: Protime-INRon 04-17-2020 INR Coag (PPP) [Relative time] 0.9 {INR} My[facility] Phone: Comment on above: Non-therapeutic Range: INR = 0.9-1.2 Therapeutic Range: Moderate Anticoagulant Intensity: INR = 2.0-3.0 High Anticoagulant Intensity: INR = 2.5-3.5 PT Coag (PPP) [Time] 12.4 s [employer] Phone: Troponinon 04-17-2020 Interpretation and review of laboratory results Abnormal [facility] Phone: Troponin I.cardiac [Mass/Vol] NOT REPORTED [facility] Phone: Troponin T.cardiac [Mass/Vol] NOT REPORTED <0.03 ng/mL [facility] Phone: Troponin, High Sensitivity 17 ng/L High 0 - 14 ng/L [facility] Phone: Comment on above: High Sensitivity Troponin values cannot be compared with other Troponin methodologies. Patients with high levels of Biotin oral intake (i.e >5mg/day) may have falsely decreased Troponin levels. Samples collected within 8 hours of biotin intake may require additional information for diagnosis. Urinalysis with Microscopico n 04-17-2020 Amorphous, UA NOT REPORTED None [facility] Work Phone: Bacteria, UA TRACE Abnormal None [facility] Phone: Bilirubin Urine Negative NEGATIVE [facility] Work Phone: Casts UA NOT REPORTED /LPF [facility] Phone: Color, UA YELLOW YELLOW [facility] Phone: Crystals, UA NOT REPORTED None /HPF [employer] Work Phone: Epithelial Cells UA 0 TO 2 [facility] Phone: Glucose, Ur Negative NEGATIVE [facility] Phone: Interpretation and review of laboratory results Abnormal [facility] Phone: Ketones Ql (U) Negative NEGATIVE [facility] [employer] Work Phone: Leukocyte esterase Test strip Ql (U) Negative NEGATIVE [facility] Phone: Mucus, UA TRACE Abnormal None [facility] Phone: Nitrite, Urine Negative NEGATIVE [facility] Work Phone: Other Observations UA NOT REPORTED NOT REQ. M [facility] [employer] Work Phone: pH, UA 6.5 [facility] [employer] Phone: Protein (U) [Mass/Vol] Negative NEGATIVE [facility] [employer] Work Phone: RBC (U) [#/Vol] None [facility] Work Phone: Renal Epithelial, UA NOT REPORTED 0 /HPF [facility] Work Phone: Specific [place], UA <1.005 Low [facility] Work Phone: Trichomonas, UA NOT REPORTED None [facility] Work Phone: Turbidity UA CLEAR CLEAR [facility] Work Phone: Urinalysis Comments NOT REPORTED [facility] Work Phone: Urine Hgb Negative NEGATIVE [facility] Work Phone: Urobilinogen, Urine Normal Normal [facility] Work Phone: WBC, UA None [facility] Work Phone: Yeast, UA NOT REPORTED None [facility] Work Phone: - [facility] Work Phone: Urine Drug Screenon 04-18-19 21 Amphetamine Screen, Ur Negative NEGATIVE [facility] Work Phone: Barbiturate Screen, Ur Negative NEGATIVE [facility] Work Phone: Benzodiazepine Screen, Urine Negative NEGATIVE [facility] Work Phone: Buprenorphine Urine Negative NEGATIVE [facility] Work Phone: Cannabinoid Scrn, Ur Negative NEGATIVE [facility] Work Phone: Cocaine Metabolite, Urine Negative NEGATIVE [facility] Work Phone: MDMA, Urine NOT REPORTED NEGATIVE [facility] Work Phone: Methadone Screen, Urine Negative NEGATIVE [facility] Work Phone: Methamphetamine, Urine Negative NEGATIVE [facility] Work Phone: Opiates, Urine Negative NEGATIVE [facility] Work Phone: Oxycodone Screen, Ur Negative NEGATIVE [facility] Work Phone: Phencyclidine, Urine Negative NEGATIVE [facility] Work Phone: Propoxyphene, Urine Negative NEGATIVE [employer] Work Phone: Test Information NOT REPORTED [facility] [employer] Work Phone: Tricyclic Antidepressants, Urine Negative NEGATIVE [facility] Work Phone: Comment on above: Drug screen results are to be used for medical purposes only. All positive results are unconfirmed. Testing for employment or legal uses should be sent to a reference laboratory for confirmation. Vital Signs Date Time Vital Sign Value Performing Clinician Faci lity 01-21-2024 14:44-0500 Body temperature 97.5 [degF] Shabnam Baxter MD Work Phone: [employer] [facility] [employer] 01-21-2024 14:44-0500 Diastolic blood pressure 63 mm[Hg] Shabnam Baxter MD Work Phone: [employer] [facility] [employer] 01-21-2024 14:44-0500 Heart rate 79 /min [facility]abnam Baxter MD [facility] [employer] 01-21-2024 14:44-0500 Respiratory rate 16 /min Shabnam Baxter MD Work Phone: [facility] [employer] [facility] [employer] 01-21-2024 14:44-0500 SaO2% (BldA) [Mass fraction] 99 % Shabnam Baxter MD Work Phone: [employer] [facility] [employer] 01-21-2024 14:44-0500 Systolic blood pressure 148 mm[Hg] Shabnam Baxter MD Work Phone: [facility] [employer] 10-21-2021 19:45-0400 Diastolic blood pressure 62 mm[Hg] El[facility]cer [facility]ris [facility] [employer] 10-21-2021 19:45-0400 Heart rate 56 /min Eliecer Burris MD [facility] [employer] 10-21-2021 19:45-0400 Respiratory rate 16 /min Eliecer Burris [facility] [employer] 10-21-2021 19:45-0400 SaO2% (BldA) [Mass fraction] 98 % Eliecer Burris [facility] [employer] 10-21-2021 19:45-0400 Systolic blood pressure 176 mm[Hg] Eliecer Burris [facility] [employer] 10-21-2021 17:49-0400 Body mass index (BMI) [Ratio] 27.46 kg/m2 Eliecer Burris [facility] [employer] 10-21-2021 17:49-0400 Body weight 74.84 kg Eliecer Burris [facility] [employer] 10-05-2021 16:12-0400 Diastolic blood pressure 58 mm[Hg] Eliecer Burris [facility] [employer] 10-05-2021 16:12-0400 Heart rate 50 /min Eliecer Burris [facility] [employer] 10-05-2021 16:12-0400 Respiratory rate 11 /min Eliecer Burris [facility] 10-05-2021 16:12-0400 SaO2% (BldA) [Mass fraction] 100 % Eliecer Burris [facility] [employer] 10-05-2021 16:12-0400 Systolic blood pressure 145 mm[Hg] Eliecer Burris [facility] [employer] 10-05-2021 14:16-0400 Body height 165.1 cm [facility]iecer Burris [facility] [employer] 10-05-2021 14:16-0400 Body mass index (BMI) [Ratio] 24.96 kg/m2 Eliecer Burris [facility] [employer] 10-05-2021 14:16-0400 Body temperature 97.5 [degF] Eliecer Burris [facility] [employer] 10-05-2021 14:16-0400 Body weight 68.04 kg Eliecer Burris [facility] [employer] 09-04-2020 13:00-0400 Body temperature 97.7 [degF] Vernon Patino MD Work Phone: [employer] Work Phone: 09-04-2020 13:00-0400 Diastolic blood pressure 49 mm[Hg] Vernon Patino MD Work Phone: [employer] Work Phone: 09-04-2020 13:00-0400 Heart rate 59 /min Vernon Patino MD Work Phone: [employer] Work Phone: 09-04-2020 13:00-0400 Respiratory rate 16 /min Vernon Patino MD Work Phone: [employer] Work Phone: 09-04-2020 13:00-0400 SaO2% (BldA) [Mass fraction] 98 % Vernon Patino MD Work Phone: [employer] Work Phone: 09-04-2020 13:00-0400 Systolic blood pressure 129 mm[Hg] Vernon Patino MD Work Phone: [employer] Work Phone: 09-03-2020 11:30-0400 Body height 165.1 cm Vernon Patino MD Work Phone: [employer] Work Phone: 09-02-2020 13:45-0400 Body mass index (BMI) [Ratio] 26.96 kg/m2 Vernon Patino MD Work Phone: [employer] Work Phone: 09-02-2020 13:45-0400 Body weight 73.48 kg Vernon Patino MD Work Phone: [employer] Work Phone: 09-02-2020 13:15-0400 Diastolic blood pressure 68 mm[Hg] Acosta Mendoza MD Work Phone: [employer] Work Phone: 09-02-2020 13:15-0400 Heart rate 84 /min Acosta Mendoza MD Work Phone: [employer] Work Phone: 09-02-2020 13:15-0400 Respiratory rate 14 /min Acosta Mendoza MD Work Phone: [employer] Work Phone: 09-02-2020 13:15-0400 SaO2% (BldA) [Mass fraction] 95 % Acosta Mendoza MD Work Phone: [employer] Work Phone: 09-02-2020 13:15-0400 Systolic blood pressure 141 mm[Hg] Acosta Mendoza MD Work Phone: [employer] Work Phone: 09-02-2020 07:49-0400 Body height 165.1 cm Acosta Mendoza MD Work Phone: [employer] Work Phone: 09-02-2020 07:28-0400 Body mass index (BMI) [Ratio] 25.63 kg/m2 Acosta Mendoza MD Work Phone: [employer] Work Phone: 09-02-2020 07:28-0400 Body weight 69.85 kg Acosta Mendoza MD Work Phone: [employer] Work Phone: 09-02-2020 07:07-0400 Body temperature 97.59 [degF] Acosta Mendoza MD Work Phone: [employer] Work Phone: 06-02-2020 17:16-0400 Diastolic blood pressure 62 mm[Hg] Law Andes DO Work Phone: [employer] Work Phone: 06-02-2020 17:16-0400 Heart rate 66 /min Law Andes DO Work Phone: [employer] Work Phone: 06-02-2020 17:16-0400 SaO2% (BldA) [Mass fraction] 96 % Law Andes DO Work Phone: [employer] Work Phone: 06-02-2020 17:16-0400 Systolic blood pressure 139 mm[Hg] Law Andes DO Work Phone: [employer] Work Phone: 06-02-2020 14:07-0400 Body mass index (BMI) [Ratio] 28.32 kg/m2 Lwa Andes DO Work Phone: [employer] Work Phone: 06-02-2020 14:07-0400 Body temperature 98.29 [degF] Law Andes DO Work Phone: [employer] Work Phone: 06-02-2020 14:07-0400 Body weight 74.84 kg Law Andes DO Work Phone: [employer] Work Phone: 06-02-2020 14:07-0400 Respiratory rate 14 /min Law Andes DO Work Phone: [employer] Work Phone: 05-08-2020 21:30-0400 BP Diastolic 72 mm[Hg] Patrick [employer] Work Phone: 05-08-2020 21:30-0400 BP Systolic 166 mm[Hg] Patrick [employer] Work Phone: 05-08-2020 21:30-0400 Pulse Oximetry 100 % Patrick Splore [employer] Work Phone: 05-08-2020 18:16-0400 Pulse (Heart Rate) 72 /min Patrick [facility] [employer] Work Phone: 05-08-2020 18:16-0400 Respiratory Rate 18 /min Patrick [facility] [employer] Work Phone: 05-08-2020 18:14-0400 Body Temperature 96.3 [degF] Patrick Splore [employer] Work Phone: 04-19-2020 11:30-0500 BP Diastolic 57 mm[Hg] Dwight [employer] Work Phone: 04-19-2020 11:30-0500 BP Systolic 125 mm[Hg] Dwight Duffy [employer] Work Phone: 04-19-2020 11:30-0500 Pulse (Heart Rate) 68 /min [facility]ight [facility] Work Phone: 04-19-2020 11:30-0500 Respiratory Rate 16 /min Dwight Duffy [facility] Work Phone: 04-19-2020 10:03-0500 Pulse Oximetry 96 % Dwight [facility] Work Phone: 04-19-2020 07:46-0500 BMI (Body Mass Index) 27.12 kg/m2 Dwight [employer] Work Phone: 04-19-2020 07:46-0500 Body Temperature 97.2 [degF] Dwight Duffy [facility] Work Phone: 04-19-2020 07:46-0500 Body weight 71.67 kg Dwight [facility] Work Phone: 04-19-2020 07:46-0500 Height 162.6 cm Dwight [employer] Phone: Encounters Encounter Date Encounter Type Care Provider Facility Start: 02-16-2024 End: 02-18-2024 [facility] Start: 02-16-2024 End: 02-18-2024 Subsequent hospital visit by physician [facility] Cat Scan Room [facility] [employer] [place] Scan Comment on above: Somatic dysfunction of lumbar region; Lumbar radiculopathy Start: 01-21-2024 End: 01-21-2024 Emergency department patient visit Shabnam Baxter MD [facility] Comment on above: Strain of lumbar reg ion, initial encounter (Primary Dx) Start: 12-24-2023 End: 12-24-2023 [facility] Start: 12-24-2023 End: 12-24-2023 Subsequent hospital visit by physician Quincy Kumar PTA [facility] Physical Therapy Comment on above: Arrived Start: 12-20-2023 End: 12-20-2023 ambulatory [facility] Start: 12-20-2023 End: 12-20-2023 Subsequent hospital visit by physician Moraima Dela Cruz PTA [facility] Physical Therapy Comment on above: Arrived Start: 12-17-2023 End: 12-17-2023 [facility]ulatory [facility] Start: 12-17-2023 End: 12-17-2023 Subsequent hospital visit by physician Dario Ruiz PT [facility] Physical Therapy Comment on above: Arrived Start: 12-13-2023 End: 12-13-2023 ambulatory [facility] Start: 12-13-2023 End: 12-13-2023 Subsequent hospital visit by physician Moraima Dela Cruz PTA [facility] Physical Therapy Comment on above: Arrived Start: 12-10-2023 End: 12-10-2023 [facility]ulatory [facility] Start: 12-10-2023 End: 12-10-2023 Subsequent hospital visit by physician Moraima Dela Cruz PTA [facility] Physical Therapy Comment on above: Arrived Start: 12-06-2023 End: 12-06-2023 ambulatory [facility] Start: 12-06-2023 End: 12-06-2023 Subsequent hospital visit by physician Quincy Kumar PTA [facility] Physical Therapy Comment on above: Arrived Start: 12-03-2023 End: 12-03-2023 ambulatory MOLINA Villalab [facility] Start: 12-03-2023 End: 12-03-2023 Subsequent hospital visit by physician Moraima Dela Cruz PTA [facility] Physical Therapy Comment on above: Arrived Start: 11-29-2023 End: 11-29-2023 ambulatory MOLINA Villalba [facility] Start: 11-29-2023 End: 11-29-2023 Subsequent hospital visit by physician Moraima Dela Cruz PTA [facility] Physical Therapy Comment on above: Arrived Start: 11-26-2023 End: 11-26-2023 ambulatory MOLINA Villalba [facility] Start: 11-26-2023 End: 11-26-2023 Subsequent hospital visit by physician Moraima Dela Cruz PTA [facility] Physical Therapy Comment on above: Arrived Start: 11-24-2023 End: 11-24-2023 ambulatory MOLINA Villalba [facility] Start: 11-24-2023 End: 11-24-2023 Subsequent hospital visit by physician Moraima Dela Cruz PTA [facility] Physical Therapy Comment on above: Arrived Start: 11-22-2023 End: 11-22-2023 ambulatory MOLINA Villalba [facility] Start: 11-19-2023 End: 11-19-2023 ambulatory MOLINA [facility]alba [facility] Start: 11-17-2023 End: 11-17-2023 ambulatory MOLINA [facility]ba [facility] Start: 11-15-2023 End: 11-15-2023 ambulatory MLOINA Villalba [facility] Start: 11-12-2023 End: 11-12-2023 ambulatory MOLINA [facility]alba [facility] Start: 11-12-2023 End: 11-12-2023 Subsequent hospital visit by physician Moraiam Dela Cruz PTA [facility] Physical Therapy Comment on above: Arrived Start: 11-10-2023 End: 11-10-2023 ambulatory MOLINA Villalba [facility] Start: 11-08-2023 End: 11-08-2023 ambulatory MOLINA [facility]alba [facility] Start: 11-08-2023 End: 11-08-2023 Subsequent hospital visit by physician Moraima Dela Cruz PTA [facility] Physical Therapy Comment on above: Arrived Start: 2023 End: 2023 ambulatory MOLINA Villalba [facility] Start: 2023 End: 2023 Subsequent hospital visit by physician Moraima Dela Cruz PTA [facility] Physical Therapy Comment on above: Arrived Start: 11-04-2023 End: 11-04-2023 ambulatory [facility]OLINA [facility]ba [facility] Start: 11-01-2023 End: 11-01-2023 ambulatory [facility] Start: 10-22-2023 End: 10-22-2023 ambulatory [facility] Start: 06-09-2023 End: 06-11-2023 ambulatory [facility] Start: 06-03-2023 End: 06-03-2023 ambulatory [facility] Start: 06-03-2023 [facility] Start: 05-14-2023 End: 05-14-2023 Emergency department patient visit MARIA INES IGLESIAS [facility] Start: 05-13-2023 ambulatory [facility] Start: 05-06-2023 End: 05-06-2023 ambulatory [facility] Start: 05-06-2023 End: 05-06-2023 Subsequent hospital visit by physician Quincy Kumar PTA [facility] Physical Therapy Comment on above: Arrived Start: 04-27-2023 End: 04-27-2023 ambulatory [facility] Start: 04-04-2023 End: 04-05-2023 ambulatory [facility] Start: 10-21-2021 End: 10-21-2021 Emergency department patient visit Eliecer Burris MD [facility] ED Comment on above: Elevated blood press ure reading (Primary Dx) Start: 10-15-2021 End: 10-17-2021 Subsequent hospital visit by physician Florencia Xr Dr Room 4 [facility] Laboratory Comment on above: Pain; Swelling Start: 10-10-2021 End: 10-12-2021 Subsequent hospital visit by physician [facility] Mammography [facility] Mammography Comment on above: Breast cancer screen ing by mammogram Start: 10-05-2021 End: 10-05-2021 Emergency department patient visit Eliecer Burris MD [facility] ED Comment on above: Dysarthria (Primary Dx); Acute cystitis without hematuria Start: 07-22-2021 End: 07-22-2021 Subsequent hospital visit by physician Molina Ramos DO Work Phone: [facility] Laboratory Start: 03-03-2021 End: 03-05-2021 Subsequent hospital visit by physician [facility] Vascular Imaging Room [facility] Vascular Lab Comment on above: Left leg swelling Start: 01-21-2021 End: 01-21-2021 Subsequent hospital visit by physician Quincy Kumar PTA [facility] Physical Therapy Comment on above: Arrived Start: 01-13-2021 End: 01-13-2021 Subsequent hospital visit by physician Ford Sarah [facility] Physical Therapy Comment on above: Arrived Start: 01-06-2021 End: 01-06-2021 Subsequent hospital visit by physician Darlin Ferrer PT [facility] Physical Therapy Comment on above: Arrived Start: 12-24-2020 End: 12-24-2020 Subsequent hospital visit by physician Delores Palma PT [facility] Physical Therapy Comment on above: Arrived Start: 12-23-2020 End: 12-23-2020 Subsequent hospital visit by physician Quincy Kumar PTA [facility] Physical Therapy Comment on above: Arrived Start: 12-17-2020 End: 12-17-2020 Subsequent hospital visit by physician Darlin Ferrer PT [facility] Physical Therapy Comment on above: Arrived Start: 12-10-2020 End: 12-10-2020 Subsequent hospital visit by physician Ford Sarah [facility] Physical Therapy Comment on above: Arrived Start: 09-02-2020 End: 09-04-2020 Evaluation and management of inpatient MOLINA RAMOS [facility] Start: 09-02-2020 End: 09-04-2020 Evaluation and management of inpatient Vernon Patino MD Work Phone: [facility] 5B NSICU Comment on above: Altered mental statu s, unspecified altered mental status type (Primary Dx) Start: 09-02-2020 End: 09-05-2020 ambulatory OSAMA O CORTEZ [facility] Start: 09-02-2020 End: 09-04-2020 Subsequent hospital visit by physician Acosta Mendoza MD Work Phone: [facility] Special Procedures Comment on above: Cerebral aneurysm; TGA (transient global amnesia) Start: 06-02-2020 End: 06-02-2020 Emergency department patient visit Law Stratton DO Work Phone: [facility] ED Comment on above: Nausea vomiting and diarrhea (Primary Dx); Other complicated headache syndrome; Dehydration Start: 05-08-2020 End: 05-08-2020 Emergency department patient visit Patrick Pandya Work Phone: [facility] ED Comment on above: Essential hypertensi on (Primary Dx) Start: 04-17-2020 End: 04-19-2020 Evaluation and management of inpatient Dwight Duffy [facility] Comment on above: TIA (transient ische angelique attack) (Primary Dx) Procedures Date Procedure Procedure Detail Performing Clinician Start: 02-16-2024 Ct lumbar spine w/o contrast material Sharath Garcia DC Work Phone: Start: 01-21-2024 Radex spine lumbosac ral 2/3 views Shabnam Baxter MD Work Phone: Start: 01-21-2024 Urinalysis microscopic only Shabnam Baxter MD Work Phone: Start: 01-21-2024 Urnls dip stick/tabl et rgnt auto w/o microscopy Shabnam Baxter MD Work Phone: Start: 10-21-2021 Ecg routine ecg w/le ast 12 lds w/i&r Eliecer Burris MD Start: 10-21-2021 End: 10-21-2021 Comprehensive metabolic panel Eliecer Burris MD Start: 10-15-2021 End: 10-15-2021 Radex foot complete minimum 3 views Lukas Mcgee Start: 10-15-2021 Basic metabolic pane l calcium total Lukas Mcgee Start: 10-05-2021 Urnls dip stick/tabl et reagent auto microscopy Eliecer Burris MD Start: 10-05-2021 Ct angiography neck w/contrast/noncontrast Eliecer Burris MD Start: 10-05-2021 COVID-19, RAPID Eliecer donovan MD Start: 10-05-2021 Radiologic exam ches t single view Eliecer Burris MD Start: 10-05-2021 Ct head/brain w/o co ntrast material Eliecer Burris MD Start: 10-05-2021 End: 10-05-2021 Comprehensive metabolic panel Eliecer Burris MD Start: 10-05-2021 Ecg routine ecg w/le ast 12 lds w/i&r Eliecer Burris MD Start: 10-05-2021 GLUCOSE, WHOLE BLOOD Se jammie Burris MD Start: 07-22-2021 Electrolyte panel Charl bhumika Winslow Valbridgett DO Work Phone: Start: 03-03-2021 Dup-scan xtr veins unilateral/limited study Alissa Marx MD Work Phone: Start: 09-04-2020 Blood count hemoglobin King Monteiro MD Work Phone: Start: 09-03-2020 End: 09-03-2020 Blood count hemoglobin King Monteiro MD Work Phone: Start: 09-03-2020 Ct head/brain w/o co ntrast material Jyame Morton MD Work Phone: Start: 09-03-2020 IMMATURE PLATELET FRACTION King Monteiro MD Work Phone: Start: 09-03-2020 BASIC METABOLIC PANE L W/ REFLEX TO MG FOR LOW K Ralf Christie MD Work Phone: Start: 09-03-2020 SPECIMEN REJECTION Argentina Christie MD Work Phone: Start: 09-02-2020 EEG VIDEO MONITORING Co vijay Peters MD Work Phone: Start: 09-02-2020 BASIC METABOLIC PANE L W/ REFLEX TO MG FOR LOW K Suraj Peters MD Work Phone: Start: 09-02-2020 Hemoglobin glycosylated a1c Mikael Metz DO Work Phone: Start: 09-02-2020 Lipid panel Suraj veliz MD Work Phone: Start: 09-02-2020 STROKE PANEL Mikael Metz DO Work Phone: Start: 09-02-2020 Glucose blood reagent strip Kristina Lomax MD Work Phone: Start: 09-02-2020 Mri brain brain stem w/o contrast material Ralf Christie MD Work Phone: Start: 09-02-2020 Ct angiography neck w/contrast/noncontrast Pantera Mcdonald MD Work Phone: Start: 09-02-2020 Chloride [Moles/volu me] in Serum or Plasma Kristina Lomax MD Work Phone: Start: 09-02-2020 CREATININE W/GFR POI NT OF CARE Kristina Lomax MD Work Phone: Start: 09-02-2020 Gluc bld gluc mntr d ev cleared fda spec home use Kristina Lomax MD Work Phone: Start: 09-02-2020 Potassium [Moles/vol ume] in Serum or Plasma Kristina Lomax MD Work Phone: Start: 09-02-2020 Sodium [Moles/volume ] in Serum or Plasma Kristina Lomax MD Work Phone: Start: 06-02-2020 Ct head/brain w/o co ntrast material Law Andes DO Work Phone: Start: 06-02-2020 COVID-19, RAPID Law Andes DO Work Phone: Start: 06-02-2020 Assay of lipase Law Andes DO Work Phone: Start: 06-02-2020 BASIC METABOLIC PANE L W/ REFLEX TO MG FOR LOW K Law Andes DO Work Phone: Start: 06-02-2020 Hepatic function panel Law Andes DO Work Phone: Start: 05-08-2020 Assay of troponin quantitative Luis Enrique A Polo Work Phone: Start: 05-08-2020 Assay of troponin quantitative Luis Enrique A Polo Work Phone: Start: 05-08-2020 Blood count complete auto&auto difrntl wbc Luis Enrique A Polo Work Phone: Start: 05-08-2020 Comprehensive metabo lic panel Luis Enrique Cuellar Work Phone: Start: 04-18-2020 Echocardiography Alissa Marx Work Phone: Start: 04-18-2020 BASIC METABOLIC PANE L W/ REFLEX TO MG FOR LOW K Marcelino Renaenicole Work Phone: Start: 04-18-2020 Blood count complete automated Marcelino Renaenicole Work Phone: Start: 04-18-2020 Hemoglobin glycosylated a1c Marcelino Renaenicole Work Phone: Start: 04-18-2020 Lipid panel Saeed Renaenicole Work Phone: Start: 04-17-2020 Speech and language therapy regime Marcelino Clifford Work Phone: Start: 04-17-2020 GLUCOSE, WHOLE BLOOD Mi patience Duffy Start: 04-17-2020 Ct angiography neck w/contrast/noncontrast Dwight Duffy Start: 04-17-2020 Mri brain brain stem w/o contrast material Dwight Duffy Start: 04-17-2020 Gluc bld gluc mntr d ev cleared fda spec home use Dwight Duffy Start: 04-17-2020 GLUCOSE, WHOLE BLOOD Mi patience Duffy Start: 04-17-2020 Drug screen class list a Dwight Duffy Start: 04-17-2020 Urnls dip stick/tabl et reagent auto microscopy Dwight Duffy Start: 04-17-2020 Ecg routine ecg w/le ast 12 lds i&r only Dwight Duffy Start: 04-17-2020 EKG REPORT Hpf Scanni ng Start: 04-17-2020 Ct head/brain w/o co ntrast material Dwight Duffy Start: 04-17-2020 Assay of troponin quantitative Dwight Duffy Start: 04-17-2020 Blood count complete auto&auto difrntl wbc Dwight Duffy Start: 04-17-2020 Comprehensive metabo lic panel Dwight Winslow Tati Start: 04-17-2020 Prothrombin time Michmaria esther Winslow Tati Start: 04-17-2020 Thromboplastin time partial plasma/whole blood Dwight Winslow Tati Plan of Treatment Date Care Activity Detail Author Start: 10-21-2024 GFR test (Diabetes, CKD 3-4, OR last GFR 15-59) GFR test (Diabetes, CKD 3-4, OR last GFR 15-59) [facility] Start: 10-21-2024 Lipid panel Lipids [facility] Start: 05-08-2024 End: 05-08-2024 Patient encounter procedure 05/08/2024 2:20 PM EDT Office Visit [facility] [address] [phone] Alissa Marx MD [address] [place] [phone] 6 month [facility] Comment on above: 6 month Start: 04-05-2024 Lipid panel Lipids [facility] Start: 03-09-2024 COVID-19 Vaccine ( season) COVID-19 Vaccine () [facility] Start: 12-24-2023 End: 12-24-2023 Patient encounter procedure 12/24/2023 1:00 PM EST Appointment [facility] Physical Therapy [address] [place], [place] [phone] Quincy Kumar PTA [facility] Physical Therapy Start: 12-20-2023 End: 12-20-2023 Patient encounter procedure 12/20/2023 1:15 PM EST Appointment [facility] Physical Therapy [address] [place] [address] [phone] Moraima Dela Cruz PTA [facility] Physical Therapy Start: 12-17-2023 End: 12-17-2023 Patient encounter procedure 12/17/2023 1:00 PM EST Appointment [facility] Physical Therapy [address] [place] [address] [phone] Dario Ruiz, PT [facility] Physical Therapy Comment on above: [facility] Start: 12-13-2023 End: 12-13-2023 Patient encounter procedure 12/13/2023 1:15 PM EST [facility] [address] [place], [place] [phone] Moraima Dela Cruz, MULTIPLE RESAW OPERATOR [facility] Physical Therapy Start: 12-10-2023 End: 12-10-2023 Patient encounter procedure 12/10/2023 1:30 PM EDT Appointment [facility] Physical Therapy [address] [place], [place] [phone] Moraima Dela Cruz, MULTIPLE RESAW OPERATOR [facility] Physical Therapy Start: 12-06-2023 End: 12-06-2023 Patient encounter procedure 12/06/2023 1:15 PM EDT Appointment [facility] Physical Therapy [address] [place], [place] [phone] Quincy Kumar PTA [facility] Physical Therapy Start: 12-03-2023 End: 12-03-2023 Patient encounter procedure 12/03/2023 1:00 PM EDT Appointment [facility] Physical Therapy [address] [place], [place] [phone] Moraima Dela Cruz, MULTIPLE RESAW OPERATOR [facility] Physical Therapy Start: 11-29-2023 End: 11-29-2023 Patient encounter procedure 11/29/2023 2:00 PM EDT Appointment [facility] Physical Therapy [address] [place], [place] [phone] Moraima Dela Cruz, MULTIPLE RESAW OPERATOR [facility] Physical Therapy Start: 11-26-2023 End: 11-26-2023 Patient encounter procedure [facility] Physical Therapy Comment on above: [facility] Start: 11-24-2023 End: 11-24-2023 Patient encounter procedure 11/24/2023 1:15 PM EDT Appointment [facility] Physical Therapy [address] [place] [phone] Moraima Dela Cruz, MULTIPLE RESAW OPERATOR [facility] Physical Therapy Start: 11-22-2023 End: 11-22-2023 Patient encounter procedure 11/22/2023 1:15 PM EDT Appointment [facility] Physical Therapy [address] [place] [phone] Moraima Dela Cruz, MULTIPLE RESAW OPERATOR [facility] Physical Therapy Start: 11-19-2023 End: 11-19-2023 Patient encounter procedure 11/19/2023 1:00 PM EDT Appointment [facility] Physical Therapy [address] [place] [phone] Moraima Dela Cruz [facility] Start: 11-17-2023 End: 11-17-2023 Patient encounter procedure 11/17/2023 1:00 PM EDT Appointment [facility] Physical Therapy [address] [place] [phone] Moraima Dela Cruz PTA [facility] Physical Therapy Start: 11-15-2023 End: 11-15-2023 Patient encounter procedure 11/15/2023 1:15 PM EDT Appointment [facility] Physical Therapy [address] [place] [phone] Moraima Dela Cruz [facility] Start: 11-12-2023 End: 11-12-2023 Patient encounter procedure 11/12/2023 1:00 PM EDT Appointment [facility] Physical Therapy [address] [place] [phone] Moraima Dela Cruz PTA [facility] Physical Therapy Start: 11-10-2023 End: 11-10-2023 Patient encounter procedure 11/10/2023 1:15 PM EDT Appointment [facility] Physical Therapy [address] [place] [phone] Moraima Dela Cruz PTA [facility] Physical Therapy Start: 11-08-2023 End: 11-08-2023 Patient encounter procedure 11/08/2023 1:15 PM EDT Appointment [facility] Physical Therapy [address] [place] [phone] Moraima Dela Cruz PTA [facility] Physical Therapy Start: 10-25-2023 End: 10-25-2023 Patient encounter procedure 10/25/2023 2:20 PM EDT Office Visit [facility] [address] [phone] Alissa Marx MD [address] [place] [address] [place] [address] 6 month [facility] of [facility] Comment on above: 6 month Start: 10-10-2023 COVID-19 Vaccine ( season) COVID-19 Vaccine ( season) [facility] Start: 09-09-2023 Influenza vaccination Flu vaccine (#1) [facility] Start: 06-09-2023 End: 06-09-2023 Patient encounter procedure 06/09/2023 6:30 PM EDT Appointment [facility] Mammography [address] [place], [place] [phone] self referral, julián w pt [facility] Mammography Comment on above: self referral, julián w pt Start: 06-03-2023 End: 06-03-2023 Patient encounter procedure 06/03/2023 12:30 PM EDT Appointment [facility] Physical Therapy [address] [place], [place] [phone] Jennifer Carrillo, PT MEDICARE [facility] Comment on above: MEDICARE Start: 05-27-2023 End: 05-27-2023 Patient encounter procedure 05/27/2023 12:30 PM EDT Appointment [facility] Physical Therapy [address] [place], [place] [phone] Quincy Kumar, DARIO [facility] Physical [facility] Start: 05-24-2023 End: 05-24-2023 Patient encounter procedure 05/24/2023 12:30 PM EDT Appointment [facility] Physical Therapy [address] [place] [phone] Quincy Kumar PTA [facility] Physical Therapy Start: 05-21-2023 End: 05-21-2023 Patient encounter procedure 05/21/2023 1:00 PM EDT Appointment [facility] Physical Therapy [address] [place] [phone] Quincy Kumar MULTIPLE RESAW OPERATOR [facility] Start: 05-20-2023 End: 05-20-2023 Patient encounter procedure 05/20/2023 3:30 PM EDT Appointment [facility] Physical Therapy [address] [place] [phone] Quincy Kumar MULTIPLE RESAW OPERATOR [facility] Physical Therapy Start: 05-14-2023 End: 05-14-2023 Patient encounter procedure 05/14/2023 2:15 PM EDT Appointment [facility] Physical Therapy [address] [place] [phone] Jennifer Carrillo PT [facility] Physical Therapy Start: 05-13-2023 End: 05-13-2023 Patient encounter procedure 05/13/2023 3:30 PM EDT Appointment [facility] Physical Therapy [address] [place] [phone] Quincy Kumar PTA [facility] Physical Therapy Start: 01-04-2023 Annual Wellness Visit (Medicare) Annual Wellness Visit (Medicare) [facility] [employer] Start: 10-09-2022 COVID-19 Vaccine ( season) COVID-19 Vaccine ( season) [facility] [employer] Start: 09-10-2022 Shingles vaccine (3 of 3) [facility]ingles vaccine (3 of 3) [facility] Start: 09-08-2022 Influenza vaccination Flu vaccine (#1) [employer] Start: 07-22-2022 Lipid panel [facility] Start: 01-05-2022 End: 01-05-2022 Patient encounter procedure 01/05/2022 Office Visit Neurology Lorenzo Vang MD [address] [place] [phone] [facility] Start: 10-10-2021 End: 10-10-2021 Patient encounter procedure 10/10/2021 Appointment Radiology [facility] Start: 10-09-2021 Influenza [facility] Start: 10-06-2021 End: 10-05-2022 Echo 2d w doppler w color w contrast Echo 2d w doppler w color w contrast Echocardiography Routine Dysarthria Expected: 10/06/2021, Expires: 10/05/2022 [employer] Work Phone: Comment on above: Expected: 10/06/2021, Expires: Start: 09-03-2021 Creatinine measurement Creatinine monitoring [facility] Phone: Start: 09-03-2021 Potassium monitoring Potassium monitoring [facility] Phone: Start: 09-02-2021 Lipid panel [employer] Start: 06-02-2021 Creatinine measurement Creatinine monitoring [employer] Phone: Start: 06-02-2021 Potassium monitoring Potassium monitoring [employer] Phone: Start: 05-08-2021 Creatinine measurement Creatinine monitoring [employer] Phone: Start: 05-08-2021 Potassium monitoring Potassium monitoring [employer] Phone: Start: 04-18-2021 Creatinine measurement Creatinine monitoring [employer] Phone: Start: 04-18-2021 Lipid panel Lipid screen [employer] Phone: Start: 04-18-2021 Potassium monitoring Potassium monitoring [employer] Phone: Start: 03-03-2021 End: 03-03-2021 [facility] Start: 02-24-2021 COVID-19 Vaccine (2 - Pfizer series) COVID-19 Vaccine (2 - Pfizer series) [facility] [employer] Start: 02-04-2021 End: 02-04-2021 Patient encounter procedure 02/04/2021 Appointment Physical Therapy Ford Sarah [facility] Start: 02-03-2021 End: 02-03-2021 Patient encounter procedure 02/03/2021 Appointment Physical Therapy Darlin Ferrer PT [facility] Start: 01-28-2021 End: 01-28-2021 Patient encounter procedure 01/28/2021 Appointment Physical Therapy Ford Sarah [facility] Start: 01-27-2021 End: 01-27-2021 Patient encounter procedure 01/27/2021 Appointment Physical Therapy Darlin Ferrer PT [facility] Start: 01-21-2021 End: 01-21-2021 Patient encounter procedure 01/21/2021 Appointment Physical Therapy Quincy Kumar PTA [facility] Physical Therapy Start: 01-20-2021 End: 01-20-2021 Patient encounter procedure 01/20/2021 Appointment Physical Therapy Ford Sarah [facility] Start: 01-14-2021 End: 01-14-2021 Patient encounter procedure 01/14/2021 Appointment Physical Therapy Ford Sarah [facility] Physical Therapy Start: 01-13-2021 End: 01-13-2021 Patient encounter procedure 01/13/2021 Appointment Physical Therapy Ford Sarah [facility] Start: 01-06-2021 End: 01-06-2021 Patient encounter procedure 01/06/2021 Appointment Physical Therapy Dralin Ferrer, ROMAN [facility] Physical Therapy Start: 12-31-2020 End: 12-31-2020 Patient encounter procedure 12/31/2020 Appointment Physical Therapy Quincy Kumar PTA [facility] Physical Therapy Start: 12-30-2020 End: 12-30-2020 Patient encounter procedure [facility] Start: 12-24-2020 End: 12-24-2020 Patient encounter procedure [facility] Physical Therapy Start: 12-23-2020 End: 12-23-2020 Patient encounter procedure 12/23/2020 Appointment Physical Therapy Quincy Kumar PTA [facility] Physical Therapy Start: 12-17-2020 End: 12-17-2020 Patient encounter procedure 12/17/2020 Appointment Physical Therapy Darlin Ferrer, PT [facility] Physical Therapy Start: 12-09-2020 End: 12-09-2020 Patient encounter procedure 12/09/2020 Office Visit Neurology Kristina Lomax MD [address] [facility] [address] [address] [phone] [facility] Start: 10-09-2020 Influenza vaccination [facility] Start: 10-04-2020 End: 10-04-2020 Patient encounter procedure 10/04/2020 Office Visit Neurology Ralf Christie MD [address] [facility] [address] [phone] [facility] Start: 08-19-2020 End: 08-19-2020 Patient encounter procedure 08/19/2020 Office Visit Cardiology Alissa Marx MD [address] [place] [address] [facility] Start: 06-24-2020 End: 06-24-2020 Patient encounter procedure 06/24/2020 Office Visit Neurology Lorenzo Vang MD [address] [place] [address] [facility] Start: 06-10-2020 COVID-19 Vaccine (2 - Moderna 2-dose series) COVID-19 Vaccine (2 - Moderna 2-dose series) [facility] [employer] Phone: Start: 05-24-2020 End: 05-24-2020 Office Visit 05/24/2020 Office Visit Neurology Hudson Pittman MD [facility] [address] [place], [place] [id number] [facility] Start: 05-13-2020 End: 05-13-2020 Office Visit 05/13/2020 Office Visit Cardiology Alissa Marx MD [address] [place] [address] [facility] Start: 05-06-2020 End: 05-06-2020 Office Visit 05/06/2020 Office Visit Cardiology Alissa Marx MD [address] [place] [address] [facility] Start: 04-18-2020 End: 04-18-2021 Retirement Continuous Cardiac Event Monitor Retirement Continuous Cardiac Event Monitor Cardiac Services Routine TIA (transient ischemic attack) Expected: 04/18/2020, Expires: 04/18/2021 [facility] Comment on above: Expected: 04/18/2020, Expires: Start: 10-10-2019 Influenza vaccination Flu vaccine (#1) [facility] Phone: Start: 07-31-2018 Annual Wellness Visit (AWV) Annual Wellness Visit (AWV) [facility] Start: 03-23-2017 Shingles Vaccine (2 of 3) Shingles Vaccine (2 of 3) [facility] Start: 2006 Pneumococcal 65+ years Vaccine (1 - PCV) Pneumococcal 65+ years Vaccine (1 - PCV) [facility] Start: 2006 Pneumococcal 65+ years Vaccine (1 of 1 - PPSV23) Pneumococcal 65+ years Vaccine (1 of 1 - PPSV23) [facility] Start: 2001 Respiratory Syncytial Virus (RSV) or age 60 yrs+ (1 - 1-dose 60+ series) Respiratory Syncytial Virus (RSV) or age 60 yrs+ (1 - 1-dose 60+ series) [facility] Start: 1960 DTaP/Tdap/Td vaccine (1 - Tdap) DTaP/Tdap/Td vaccine (1 - Tdap) [facility] Start: 11-06-1959 Hepatitis C screening Hepatitis C screen [facility] Start: 11-06-1959 Urine screening for protein Diabetic Alb to Cr ratio (uACR) test [facility] Start: 1957 COVID-19 Vaccine (1) COVID-19 Vaccine (1) [facility] Phone: Start: 1953 COVID-19 Vaccine (1) COVID-19 Vaccine (1) [facility] Start: 1953 Depression Screen Depression Screen [facility] Start: 11-06-1947 Pneumococcal 65+ years Vaccine (1 of 2 - PCV) Pneumococcal 65+ years Vaccine (1 of 2 - PCV) [facility] Start: 1946 COVID-19 Vaccine (1) COVID-19 Vaccine (1) [facility] Start: 1941 Annual Wellness Visit (AWV) Annual Wellness Visit (AWV) [facility] Start: 1941 Hepatitis C screening Hepatitis C screen [facility] End: 10-05-2021 Culture, Urine [facility] Phone: Comment on above: One Time for 1 Occurrences starting 09/09 until 10/05/2021 EKG 12 Lead EKG 12 Lead ECG Routine 10/05/2021 2:23 PM EDT [facility] Phone: EKG 12 Lead EKG 12 Lead ECG STAT 10/21/2021 5:01 PM EDT [employer] End: 07-22-2021 Hemoglobin A1c/Hemoglobin.total in Blood [facility] Phone: Comment on above: Once for 1 Occurrences starting 07/23/19 until 07/22/2021 Intermittent pulse oximetry Pulse Oximetry Spot Check Respiratory Care Routine As Needed until discontinued starting 09/02/2020 [employer] Phone: Comment on above: As Needed until discontinued starting End: 09-02-2020 IR ANGIOGRAM CAROTID CEREBRAL BILATERAL IR ANGIOGRAM CAROTID CEREBRAL BILATERAL Imaging Routine Cerebral aneurysm 1 Occurrences starting 09/02/2020 until 09/02/2020 [facility] Phone: Comment on above: 1 Occurrences starting 09/02/2020 until 09/02/2020 IR ANGIOGRAM CAROTID CEREBRAL BILATERAL IR ANGIOGRAM CAROTID CEREBRAL BILATERAL Imaging Routine Cerebral aneurysm 09/02/2020 9:42 AM EDT [facility] Phone: LAB SCANNED REPORT LAB SCANNED R EPORT Lab Ordered: 09/04/2020 [facility] Phone: Comment on above: Ordered: 09/04/2020 End: 07-22-2021 Lipid panel [facility] Phone: Comment on above: Once for 1 Occurrences starting 07/23/19 until 07/22/2021 End: 04-19-2020 Retirement Continuous Cardia Event Monitor Retirement Continuous Cardia Event Monitor Cardiac Services Routine One Time for 1 Occurrences starting 04/19/2020 until 04/19/2020 [employer] Phone: Comment on above: One Time for 1 Occurrences starting 04/08 until 04/19/2020 End: 10-10-2021 ALMA ESME DIGITAL SCREEN SELF REFERRAL W OR WO CAD BILATERAL [facility] [employer] Phone: Comment on above: 1 Occurrences starting 10/10/2021 until 10/10/2021 End: 09-02-2020 MRI LIMITED BRAIN MRI LIMITED BRAIN Imaging STAT Once for 1 Occurrences starting 09/02/2020 until 09/02/2020 [employer] Phone: Comment on above: Once for 1 Occurrences starting 09/03/19 21 until 09/02/2020 MRI LIMITED BRAIN MRI LIMITED BR AIN Imaging STAT 09/02/2020 11:34 AM EDT [facility] Phone: Oxygen therapy [[facility] [place] Data Set] [employer] Phone: Comment on above: Daily until discontinued starting 2020 Daily until disconti nued starting 09/02/2020 End: 09-03-2020 PREVIOUS SPECIMEN PREVIOUS SPECIMEN Lab Routine Once for 1 Occurrences starting 09/03/2020 until 09/03/2020 [facility] Phone: Comment on above: Once for 1 Occurrences starting 09/04/19 21 until 09/03/2020 End: 09-02-2020 Speech and language therapy regime Speech Language Pathology (OFFICE SERVICES SPECIALIST) eval and treat OFFICE SERVICES SPECIALIST Routine One Time for 1 Occurrences starting 09/02/2020 until 09/02/2020 [facility] Phone: Comment on above: One Time for 1 Occurrences starting 08/09 until 09/02/2020 End: 04-19-2020 US Heart Transesophageal Echocardiogram transesophogeal Echocardiography STAT One Time for 1 Occurrences starting 04/19/2020 until 04/19/2020 [employer] Phone: Comment on above: One Time for 1 Occurrences starting 04/08 until 04/19/2020 Immunizations Immunization Date Immunization Notes Care Provider Divine huntley 11-26-2017 Influenza Vaccine, unspecified formulation Dwight Duffy [facility] 01-26-2017 zoster vaccine, live Dwight Snow [facility] Work Phone: Payers Date Payer Category Payer Medicare [id number] 2014 Private Health Insurance [facility] [id number] 2001 Medicare [id number] 2001 Medicare [id number] 1941 Unknown [id number] 2.16.8 40.1.852948.3.579.2.175 1941 Unknown [id number] 2.16.8 40.1.546080.3.579.2.175 1941 Unknown [id number] 2.16.8 40.1.920473.3.579.2.173 1941 Unknown [id number] 2.16.8 40.1.614822.3.579.2.173 1941 Unknown [id number] 2.16.8 40.1.189186.3.579.2.173 1941 Unknown [id number] 2.16.8 40.1.046943.3.579.2.173 1941 Unknown [id number] 2.16.8 40.1.165655.3.579.2.173 1941 Unknown [id number] 2.16.8 40.1.503376.3.579.2.173 1941 Unknown [id number] 2.16.8 40.1.167117.3.579.2.173 1941 Unknown [id number] 2.16.8 40.1.174564.3.579.2.173 1941 Unknown [id number] 2.16.8 40.1.612978.3.579.2.173 1941 Unknown [id number] 2.16.8 40.1.647398.3.579.2.173 1941 Unknown [id number] 2.16.8 40.1.853542.3.579.2.173 1941 Unknown [id number] 2.16.8 40.1.736431.3.579.2.173 1941 Unknown [id number] 2.16.8 40.1.760341.3.579.2. 1941 Unknown [id number] 2.16.8 40.1.605921.3.579.2.173 1941 Unknown [id number] 2.16.8 40.1.812291.3.579.2.173 1941 Unknown [id number] 2.16.8 40.1.385660.3.579.2.173 1941 Unknown [id number] 2.16.8 40.1.319838.3.579.2.173 1941 Unknown [id number] 2.16.8 40.1.863021.3.579.2.173 1941 Unknown [id number] 2.16.8 40.1.080969.3.579.2.173 1941 Unknown [id number] 2.16.8 40.1.810277.3.579.2.173 1941 Unknown [id number] 2.16.8 40.1.057413.3.579.2.173 1941 Unknown [id number] 2.16.8 40.1.434122.3.579.2.173 1941 Unknown [id number] 2.16.8 40.1.769316.3.579.2.173 1941 Unknown [id number] 2.16.8 40.1.939612.3.579.2.173 1941 Unknown [id number] 2.16.8 40.1.818842.3.579.2.173 1941 Unknown [id number] 2.16.8 40.1.150495.3.579.2.173 1941 Unknown [id number] 2.16.8 40.1.376681.3.579.2.173 1941 Unknown [id number] 2.16.8 40.1.213310.3.579.2.173 1941 Unknown [id number] 2.16.8 40.1.933844.3.579.2.173 1941 Unknown [id number] 2.16.8 40.1.875674.3.579.2.173 1941 Unknown [id number] 2.16.8 40.1.863724.3.579.2.173 Social History Date Type Detail Facility Start: 04-19-2020 End: 10-10-2021 Tobacco smoking status MIIS Never smoker [facility] Start: 04-19-2020 End: 10-10-2021 Tobacco use and exposure Never used [facility] Phone: Start: 04-19-2020 End: 01-21-2024 Alcohol intake Current non-drinker of alcohol (finding) [facility] Phone: Start: 1940 Sex Assigned At Not on file [facility] Phone: Start: 09-25-2021 End: 10-21-2021 Exposure to SARS-CoV-2 (event) Not sure [facility] Phone: Exposure to SARS-CoV -2 (event) Yes [facility] Start: 04-04-2023 End: 01-21-2024 History of Social function [facility] Start: 04-04-2023 End: 01-21-2024 [facility] Utilities [facility] Has the electric, Evino s, oil, or water company threatened to shut off services in your home in past 12Mo No [facility] Referly How often to you hav e a drink containing alcohol? Never [facility] Average Number of Drinks Not on file [facility] (I/We) worried wheth er (my/our) food would run out before (I/we) got money to buy more. Never true [facility] Medical Equipment Procedure Code Equipment Code Equipment Origin al Text Equipment Identifier Dates Lens Iol Envista Mx60 25.0d - [id number] Start: 12-20-2017 Clinical Notes 09-02-2020 to 02-17-2024 Discharge InstructionsAttaMoraima Mahajan, MULTIPLE RESAW OPERATOR - 12/20/2023 1:15 PM Dario Edgar, PT - 12/17/2023 1:00 PM Quincy Flynn, MULTIPLE RESAW OPERATOR - 12/06/2023 1:15 PM EDTDischarge Instructions Note Date & Type Note Facility 02-17-2024 Note 1. Interval mild pro gression of L5 superior endplate fracture with 20% height loss. 2. Multilevel lumbar spondylosis. [facility] 01-21-2024 Hospital Discharge instructions Shabnam Baxter MD - 01/21/2024 4:50 PM EST Continue current medications as prescribed. Use [place] place of Tylenol for pain not controlled with Tylenol. Gmyd-jhc-lwfnjbs product such as IcyHot [place] balm Biofreeze or similar. Heat or ice for 5 to 10-minute intervals as desired for comfort. Follow-up with your primary care provider in 2 to 3 days for recheck. Please return immediately should develop any worsening symptoms or any other acute concerns The following attachments cannot be sent through Care Everywhere.Back: Strain (Qatari)documented in this encounter [facility] 12-20-2023 History of Present illness Narrative [facility] Physical Therapy Daily Note Patient: Ever Palmer : 1940 CSN #: [id number] Referring Physician: Molina Ramos DO Date: 12/20/2023 Diagnosis: Dorsal lumbar pain and spasm, M54.9, M62.830 Treatment Diagnosis: Back pain, general weakness PT Insurance Information: Medicare Total # of Visits Approved: 22 Per Physician Order Total # of Visits to Date: 19 No Show: 0 Canceled Appointment: 0 12/31/23 Plan of Care/Recert Due Pre-Treatment Pain: 06/17 Subjective: Pt states she is not feeling good today, 06/17 LBP. Pt states she wants to be able to move a little better. Exercises: Exercise 1: HEP: shoulder rolls/retracs, supine PPT's, marching, glut sets, supine HAB's with orange band, supine B pec stretch; added hab's/diag's with yellow band 12/16 Exercise 2: Scifit 10 min L3.5 Exercise 3: retractions/LAE bTB x15, BTB palloff [id number] ea Exercise 5: ASU/LSU x15 ea Exercise 6: Supine yellow band Hab's/diag's x15 - standing against wall today Exercise 7: Sit to stands 2x10 1 UE Exercise 9: supine PPT, SKTC, LTR, bridge x15 ea. Supine hip add with ball, DKTC with ball x10 ea Exercise 10: Seated thoracic stretch 10x10 , ball roll outs x10 ea,ball push downs 5 x10 Exercise 14: 2# ball, then 4# ball carry, 50ft ea, focus on upright posture Modality: Modality Flow Sheet: Performed (X) Tx Modality x Hot Pack: x10 min LB to decrease pain Assessment Assessment: Pt completed large loop carry with 4# ball, frequent VCs for posture throughout ambulation, fair carryover. Pt continues to demo increased forward flexed posture as she fatigues. HP post tx for pain control. Continue as pt tolerates. Activity Tolerance Activity Tolerance: Patient tolerated treatment well Patient Education Patient Education: HEP Pt verbalized/demonstrated good understanding: [x] Yes [] No, pt required further clarification. Post Treatment Pain: 06/17 Plan Plan Frequency: 2 Plan weeks: 4 Goals (Total # of Visits to Date: 19) Short Term Goals Time Frame for Short Term Goals: 3 weeks Short Term Goal 1: Patient to initiate HEP for improved core and scapular strength for better postural control.-met Short Term Goal 2: Patient to be instructed in general strengthening to improve postural control and endurance with standing.-met Short Term Goal 3: Patient to be able to complete 5 sit/stands with no sand plant attendant and no LOB to improve functional strength.-progressing Contour Path Tape Mill Operator Goals Time Frame for Penitentiary Goals : 6 weeks Penitentiary Goal 1: Patient to be independent and compliant with HEP.-progressing Contour Path Tape Mill Operator Goal 2: Patient to have improved core and B hip strength >/=4/5 grossly for improved lumbar stability.-met Penitentiary Goal 3: Patient to have improved B shoulder strength >/=4/5 grossly all planes for improved postural control.-met Contour Path Tape Mill Operator Goal 4: Patient to report ability to stand/walk >/=15minutes with no increase in back pain and no fatigue to improve endurance and return to PLOF.-met Minutes Tracking: Time In: 1318 Time Out: 1410 Minutes: 52 Moraima Dela Cruz PTA Date: 12/20/2023 documented in this encounter [facility] 12-17-2023 History of Present illness Narrative [facility] Physical Therapy Daily Note Patient: Ever Palmer : 1940 CSN #: [id number] Referring Physician: Molina Ramos DO Date: 12/17/2023 Diagnosis: Dorsal lumbar pain and spasm, M54.9, M62.830 Treatment Diagnosis: Back pain, general weakness PT Insurance Information: Medicare Total # of Visits Approved: 22 Per Physician Order Total # of Visits to Date: 18 No Show: 0 Canceled Appointment: 0 12/31/23 Plan of Care/Recert Due Pre-Treatment Pain: 0/10 Subjective: Pt reports low back pain only with prolonged standing. Exercises: Exercise 1: HEP: shoulder rolls/retracs, supine PPT's, marching, glut sets, supine HAB's with orange band, supine B pec stretch; added hab's/diag's with yellow band 11/8 Exercise 2: Scifit 10 min L3.5 Exercise 3: retractions/LAE bTB x15, GTB palloff [id number] ea - no palloff press Exercise 5: ASU/LSU x15 ea Exercise 6: Supine yellow band Hab's/diag's x15 Exercise 7: Sit to stands 2x10 1 UE Exercise 8: standing shrugs, retractions, retro shoulder rolls x15 2# Exercise 10: Seated thoracic stretch 10x10 , ball roll outs x10 ea,ball push downs 5 x10 Exercise 14: 2# ball, then 4# ball carry, 50ft ea, focus on upright posture Exercise 15: 4-way hip with yellowTB x10 ea Assessment Assessment: Trialed 4# ball carry around clinic; pt with increasing fwd flexed posture, fatigue and pain after 50ft. Added supine hab's/diag's with yellow band to strengthen mid/lower trap muscles and assist with postural control and aide pt in goal to hold her 4.5 lb twin grandchildren. Will continue. Activity Tolerance Activity Tolerance: Patient tolerated treatment well Patient Education Exercise technique and progression Pt verbalized/demonstrated good understanding: [x] Yes [] No, pt required further clarification. Post Treatment Pain: 0/10 Plan Plan Frequency: 2 Plan weeks: 4 Goals (Total # of Visits to Date: 18) Short Term Goals Time Frame for Short Term Goals: 3 weeks Short Term Goal 1: Patient to initiate HEP for improved core and scapular strength for better postural control.-met Short Term Goal 2: Patient to be instructed in general strengthening to improve postural control and endurance with standing.-met Short Term Goal 3: Patient to be able to complete 5 sit/stands with no sand plant attendant and no LOB to improve functional strength.-progressing Penitentiary Goals Time Frame for Contour Path Tape Mill Operator Goals : 6 weeks Contour Path Tape Mill Operator Goal 1: Patient to be independent and compliant with HEP.-progressing Cont[employer] T[employer] Mill Operator Goal 2: Patient to have improved core and B hip strength >/=4/5 grossly for improved lumbar stability.-met Penitentiary Goal 3: Patient to have improved B shoulder strength >/=4/5 grossly all planes for improved postural control.-met Contour Path Tape Mill Operator Goal 4: Patient to report ability to stand/walk >/=15minutes with no increase in back pain and no fatigue to improve endurance and return to PLOF.-met Minutes Tracking: Time In: 1301 Time Out: 1348 Minutes: 47 Timed Code Treatment Minutes: 46 Minutes Dario Ruiz, PT, DPT Date: 12/17/2023 documented in this encounter [facility] 12-06-2023 History of Present illness Narrative [facility] Physical Therapy Daily Note Patient: Ever Palmer : 1940 CSN #: [id number] Referring Physician: Molina Ramos DO Date: 12/06/2023 Treatment Diagnosis: Back pain, general weakness PT Insurance Information: Medicare Total # of Visits Approved: 22 Per Physician Order Total # of Visits to Date: 15 No Show: 0 Canceled Appointment: 0 12/31/23 Plan of Care/Recert Due Pre-Treatment Pain: 07/18 Subjective: Pt reports shes really got it in the back today . Pt rates current pain a 07/18. Exercises: Exercise 2: Scifit 10 min L3.5 Exercise 3: retractions/LAE bTB x15, GTB palloff [id number] ea - no palloff press Exercise 4: 6 lien step over forward/lateral x10 ea Exercise 5: ASU/LSU x15 ea Exercise 7: Sit to stands 2x10 1 UE Exercise 8: standing shrugs, retractions, retro shoulder rolls x15 2# Exercise 10: Seated thoracic stretch 10x10 , ball roll outs x10 ea,ball push downs 5 x10 Assessment Assessment: Decreased tolerance to exercise today d/t increased back pain. Pt continues to require UE assist for sit<>stand. Activity Tolerance Activity Tolerance: Patient tolerated treatment well Patient Education Patient Education: HEP Pt verbalized/demonstrated good understanding: [x] Yes [] No, pt required further clarification. Post Treatment Pain: 10 Plan Plan Frequency: 2 Plan weeks: 4 Goals (Total # of Visits to Date: 15) Short Term Goals Time Frame for Short Term Goals: 3 weeks Short Term Goal 1: Patient to initiate HEP for improved core and scapular strength for better postural control.-met Short Term Goal 2: Patient to be instructed in general strengthening to improve postural control and endurance with standing.-met Short Term Goal 3: Patient to be able to complete 5 sit/stands with no sand plant attendant and no LOB to improve functional strength.-progressing Cont[employer] T[employer] Mill Operator Goals Time Frame for Contour Path Tape Mill Operator Goals : 6 weeks Penitentiary Goal 1: Patient to be independent and compliant with HEP.-progressing Cont[employer] T[employer] Mill Operator Goal 2: Patient to have improved core and B hip strength >/=4/5 grossly for improved lumbar stability.-met Cont[employer] Path T[employer] Mill Operator Goal 3: Patient to have improved B shoulder strength >/=4/5 grossly all planes for improved postural control.-progressing Penitentiary Goal 4: Patient to report ability to stand/walk >/=15minutes with no increase in back pain and no fatigue to improve endurance and return to PLOF.-met Minutes Tracking: Time In: 1317 Time Out: 1400 Minutes: 43 Timed Code Treatment Minutes: 41 Minutes Quincy Kumar PTA Date: 12/06/2023 documented in this encounter [facility] 12-03-2023 History of Present illness Narrative [facility] Physical Therapy Daily Note Patient: Ever Palmer : 1940 CSN #: [id number] Referring Physician: Molina Ramos DO Date: 12/03/2023 Diagnosis: Dorsal lumbar pain and spasm, M54.9, M62.830 Treatment Diagnosis: Back pain, general weakness PT Insurance Information: Medicare Total # of Visits Approved: 22 Per Physician Order Total # of Visits to Date: 14 No Show: 0 Canceled Appointment: 0 12/31/23 Plan of Care/Recert Due Pre-Treatment Pain: 0/10 Subjective: Pt denies pain, states she just has low energy. Exercises: Exercise 1: HEP: shoulder rolls/retracs, supine PPT's, marching, glut sets, supine HAB's with orange band, supine B pec stretch Exercise 2: Scifit 10 min L3.5 Exercise 3: retractions/LAE bTB x15, GTB palloff [id number] ea - no palloff press Exercise 6: TRX pec/shoulder flex stretch 2x15 , doorway stretch 3x20 - not today Exercise 7: Sit to stands 2x10 1 UE Exercise 9: supine PPT, SKTC, LTR, bridge x15 ea. Exercise 11: Supine chest press, shoulder flex with 5# bar x15 ea Exercise 14: wall push up x15, pulleys x5 min - no pulleys today Exercise 16: UBE retro x 5 min Exercise 17: Joystick x10 ea Assessment Assessment: Pt required freqeunt rest breaks throughout tx. L Shoulder flex 4/5, abd 4/5, ER/IR 4-/5. R shoulder grossly 4-/5. Pt continues to require frequent VCs for posture throughout tx. Continue as pt tolerates. Activity Tolerance Patient Education Patient Education: HEP Pt verbalized/demonstrated good understanding: [x] Yes [] No, pt required further clarification. Post Treatment Pain: 0/10 Plan Plan Frequency: 2 Plan weeks: 4 Goals (Total # of Visits to Date: 14) Short Term Goals Time Frame for Short Term Goals: 3 weeks Short Term Goal 1: Patient to initiate HEP for improved core and scapular strength for better postural control.-met Short Term Goal 2: Patient to be instructed in general strengthening to improve postural control and endurance with standing.-met Short Term Goal 3: Patient to be able to complete 5 sit/stands with no sand plant attendant and no LOB to improve functional strength.-progressing Penitentiary Goals Time Frame for Contour Path Tape Mill Operator Goals : 6 weeks Penitentiary Goal 1: Patient to be independent and compliant with HEP.-progressing Cont[employer] T[employer] Mill Operator Goal 2: Patient to have improved core and B hip strength >/=4/5 grossly for improved lumbar stability.-met Penitentiary Goal 3: Patient to have improved B shoulder strength >/=4/5 grossly all planes for improved postural control.-progressing Penitentiary Goal 4: Patient to report ability to stand/walk >/=15minutes with no increase in back pain and no fatigue to improve endurance and return to PLOF.-met Minutes Tracking: Time In: 1303 Time Out: 1344 Minutes: 41 Moraima Dela Cruz PTA Date: 12/03/2023 documented in this encounter [facility] 11-29-2023 History of Present illness Narrative [facility] Therapy Daily Note Patient: Ever Palmer : 1940 [facility] #: [id number] Referring Physician: Molina Ramos DO Date: 11/29/2023 Diagnosis: Dorsal lumbar pain and spasm, M54.9, M62.830 Treatment Diagnosis: Back pain, general weakness PT Insurance Information: Medicare Total # of Visits Approved: 12 Per Physician Order Total # of Visits to Date: 13 No Show: 0 Canceled Appointment: 0 12/03/23 Plan of Care/Recert Due Pre-Treatment Pain: -05/18 Subjective: Pt reports B shoulder pain 04/17, LBP -05/18. Pt states she is discouraged with her progress, thinks she should be getting better quicker. Exercises: Exercise 1: HEP: shoulder rolls/retracs, supine PPT's, marching, glut sets, supine HAB's with orange band, supine B pec stretch Exercise 2: Scifit 10 min L3.5 Exercise 3: retractions/LAE bTB x15, GTB palloff [id number] ea - no palloff press Exercise 4: 6 lien step over forward/lateral x10 ea Exercise 7: Sit to stands 2x10 1 UE Exercise 10: Seated thoracic stretch 10x10 , ball roll outs x10 ea,ball push downs 5 x10 Exercise 13: [place] retro walk 9# x5 Exercise 16: UBE retro x 4 min Exercise 17: Joystick x10 ea Assessment Assessment: Pt with moderate VCs for posture this visit, with noted moderate forward flexed posture. Pt with good tolerance to exercises, fatigues quickly. Continue as pt tolerates. [place] Back Pain Disability Scale Get out of bed: Minimally difficult Sleep through the night: Somewhat difficult Turn over in bed: Fairly difficult Ride in a car: Not difficult at all Stand up for 20-30 minutes: Very difficult Sit in a chair for several hours: Minimally difficult Climb one flight of stairs: Very difficult Walk a few blocks (300-400 m): Very difficult Walk several kilometers - miles: Unable to do Reach up to high shelves: Somewhat difficult Throw a ball: Minimally difficult Run one block (about 100 m): Unable to do Take food out of the refrigerator: Not difficult at all Make your bed: Very difficult Put on socks (pantyhose): Very difficult Bend over to clean the bathtub: Unable to do Move a chair: Somewhat difficult Pull or push heavy doors: Fairly difficult Carry two bags of groceries: Very difficult Lift and carry a heavy suitcase: Unable to do [place] Total Score: 59 Current Total Score: 59 % (Date: 11/29/2023) Interpretation of Score: The minimum score is 20 and the maximum score is 100. Higher scores correlate to greater disability. Minimum detectable change (90% confidence) 15 points. Activity Tolerance Activity Tolerance: Patient tolerated treatment well Patient Education Patient Education: HEP Pt verbalized/demonstrated good understanding: [x] Yes [] No, pt required further clarification. Post Treatment Pain: 3-05/18 Plan Plan Frequency: 3 Plan weeks: 4 Goals (Total # of Visits to Date: 13) Short Term Goals Time Frame for Short Term Goals: 3 weeks Short Term Goal 1: Patient to initiate HEP for improved core and scapular strength for better postural control.-met Short Term Goal 2: Patient to be instructed in general strengthening to improve postural control and endurance with standing.-met Short Term Goal 3: Patient to be able to complete 5 sit/stands with no sand plant attendant and no LOB to improve functional strength.-progressing [employer] Operator Goals Time Frame for Penitentiary Goals : 6 weeks [employer] Goal 1: Patient to be independent and compliant with HEP.-progressing [employer] Goal 2: Patient to have improved core and B hip strength >/=4/5 grossly for improved lumbar stability.-met [employer] Goal 3: Patient to have improved B shoulder strength >/=4/5 grossly all planes for improved postural control.-progressing [employer] Goal 4: Patient to report ability to stand/walk >/=15minutes with no increase in back pain and no fatigue to improve endurance and return to PLOF.-met Minutes Tracking: Time In: 1403 Time Out: 1446 Minutes: 43 Moraima Dela Cruz, MULTIPLE RESAW OPERATOR Date: 11/29/2023 documented in this encounter [facility] 11-26-2023 History of Present illness Narrative [facility] Outpatient Physical Therapy Daily Note Patient: Ever Palmer : 1940 CSN #: [id number] Referring Physician: Molina Ramos DO Date: 11/26/2023 Diagnosis: Dorsal lumbar pain and spasm, M54.9, M62.830 Treatment Diagnosis: Back pain, general weakness PT Insurance Information: Medicare Total # of Visits Approved: 12 Per Physician Order Total # of Visits to Date: 12 No Show: 0 Canceled Appointment: 0 12/03/23 Plan of Care/Recert Due Pre-Treatment Pain: 5/ Subjective: Pt reports 5/10 LBP and B shoulder pain today. Pt states she is more sore today but does not know why. Exercises: Exercise 1: HEP: shoulder rolls/retracs, supine PPT's, marching, glut sets, supine HAB's with orange band, supine B pec stretch Exercise 2: Scifit 10 min L3.5 Exercise 6: TRX pec/shoulder flex stretch 2x15 - not today, doorway stretch 3x20 Exercise 7: Sit to stands 2x10 1 UE Exercise 10: Seated thoracic stretch 10x10 , ball roll outs x10 ea,ball push downs 5 x10 Exercise 14: wall push up x10, pulleys x5 min Exercise 17: Joystick x10 ea Assessment Assessment: Pt continues to require frequent VCs for posture throughout the tx. Pt with noted increase in fatigue throughout tx, requiring frequent rest breaks. Reviewed doorway stretches for HEP, good pt understanding. Continue as pt tolerates. Activity Tolerance Activity Tolerance: Patient tolerated treatment well Patient Education Patient Education: HEP Pt verbalized/demonstrated good understanding: [x] Yes [] No, pt required further clarification. Post Treatment Pain: 4-5/10 Plan Plan Frequency: 3 Plan weeks: 4 Goals (Total # of Visits to Date: 12) Short Term Goals Time Frame for Short Term Goals: 3 weeks Short Term Goal 1: Patient to initiate HEP for improved core and scapular strength for better postural control.-met Short Term Goal 2: Patient to be instructed in general strengthening to improve postural control and endurance with standing.-met Short Term Goal 3: Patient to be able to complete 5 sit/stands with no sand plant attendant and no LOB to improve functional strength.-progressing [employer] Operator Goals Time Frame for [employer] Operator Goals : 6 weeks [employer] Goal 1: Patient to be independent and compliant with HEP.-progressing [employer] Goal 2: Patient to have improved core and B hip strength >/=4/5 grossly for improved lumbar stability.-met [employer] Goal 3: Patient to have improved B shoulder strength >/=4/5 grossly all planes for improved postural control.-progressing Penitentiary Goal 4: Patient to report ability to stand/walk >/=15minutes with no increase in back pain and no fatigue to improve endurance and return to PLOF.-met Minutes Tracking: Time In: 1018 Time Out: 1100 Minutes: 42 Moraima Dela Cruz, MULTIPLE RESAW OPERATOR Date: 11/26/2023 documented in this encounter [facility] 11-24-2023 History of Present illness Narrative [facility] Outpatient Physical Therapy Daily Note Patient: Ever Palmer : 1940 CSN #: [id number] Referring Physician: Molina Ramos DO Date: 11/24/2023 Diagnosis: Dorsal lumbar pain and spasm, M54.9, M62.830 Treatment Diagnosis: Back pain, general weakness PT Insurance Information: Medicare Total # of Visits Approved: 12 Per Physician Order Total # of Visits to Date: 11 No Show: 0 Canceled Appointment: 0 12/03/23 Plan of Care/Recert Due Pre-Treatment Pain: 3-4/10 Subjective: Pt reports normal LBP 3-4/10. Pt states she was able to take her shirt off by herself after the last visit. Exercises: Exercise 1: HEP: shoulder rolls/retracs, supine PPT's, marching, glut sets, supine HAB's with orange band, supine B pec stretch Exercise 2: Scifit 10 min L3.5 Exercise 3: retractions/LAE bTB x15, GTB palloff [id number] ea - no palloff press Exercise 5: ASU/LSU x15 ea Exercise 6: TRX pec/shoulder flex stretch 2x15 Exercise 7: Sit to stands 2x10 1 UE Exercise 8: standing shrugs, retractions, retro shoulder rolls x15 2# Exercise 14: wall push up x10, pulleys x4 min- no pulleys today Exercise 16: UBE retro x 4 min Exercise 17: Joystick x10 ea Assessment Assessment: Pt with good tolerance to ther ex this visit, mild fatigue. Pt required frequent VCs for posture throughout ther ex. L shoulder grossly 4/5, R shoulder grossly 4- to 4/5. Continue as pt tolerates. Activity Tolerance Activity Tolerance: Patient tolerated treatment well Patient Education Patient Education: HEP Pt verbalized/demonstrated good understanding: [x] Yes [] No, pt required further clarification. Post Treatment Pain: 3-05/18 Plan Plan Frequency: 3 Plan weeks: 4 Goals (Total # of Visits to Date: 11) Short Term Goals Time Frame for Short Term Goals: 3 weeks Short Term Goal 1: Patient to initiate HEP for improved core and scapular strength for better postural control.-met Short Term Goal 2: Patient to be instructed in general strengthening to improve postural control and endurance with standing.-met Short Term Goal 3: Patient to be able to complete 5 sit/stands with no sand plant attendant and no LOB to improve functional strength.-progressing Penitentiary Goals Time Frame for [employer] Operator Goals : 6 weeks [employer] Goal 1: Patient to be independent and compliant with HEP.-progressing [employer] Goal 2: Patient to have improved core and B hip strength >/=4/5 grossly for improved lumbar stability.-met Penitentiary Goal 3: Patient to have improved B shoulder strength >/=4/5 grossly all planes for improved postural control.-progressing [employer] Operator Goal 4: Patient to report ability to stand/walk >/=15minutes with no increase in back pain and no fatigue to improve endurance and return to PLOF.-met Minutes Tracking: Time In: 1313 Time Out: 1356 Minutes: 43 Moraima Dela Cruz, MULTIPLE RESAW OPERATOR Date: 11/24/2023 documented in this encounter [facility] 11-12-2023 History of Present illness Narrative [facility] Outpatient Physical Therapy Daily Note Patient: Ever Mckay Spencer : 1940 [facility] #: [id number] Referring Physician: Molina Ramos DO Date: 11/12/2023 Diagnosis: Dorsal lumbar pain and spasm, M54.9, M62.830 Treatment Diagnosis: Back pain, general weakness PT Insurance Information: Medicare Total # of Visits Approved: 12 Per Physician Order Total # of Visits to Date: 6 No Show: 0 Canceled Appointment: 0 12/03/23 Plan of Care/Recert Due Pre-Treatment Pain: 4-06/17 Subjective: Pt states her back is a little better today, 4-06/17 pain. Pt states she is very tired and weak. Pt states she has noticed the last couple days she has been feeling weaker. Exercises: Exercise 1: HEP: shoulder rolls/retracs, supine PPT's, marching, glut sets, supine HAB's with orange band, supine B pec stretch Exercise 2: Scifit 10 min L1 Exercise 3: retractions/LAE GTB x15, GTB palloff ea Exercise 5: ASU/LSU x10 ea Exercise 6: TRX pec/shoulder flex stretch 2x15 Exercise 7: Sit to stands x10 Exercise 9: supine PPT, SKTC, LTR, bridge x15 ea. Exercise 11: Supine chest press, shoulder flex with 4# bar x10 ea Exercise 12: Supine piriformis stretch, SKTC 3x10 , supine pec stretch 3x15 Assessment Assessment: Pt with increased fatigue throughout tx. Progressed ther ex with stretching, good pt tolerance and mild relief noted. Continue as pt tolerates. Activity Tolerance Activity Tolerance: Patient tolerated treatment well, Patient limited by fatigue Patient Education Patient Education: HEP, ambulating throughout the day Pt verbalized/demonstrated good understanding: [x] Yes [] No, pt required further clarification. Post Treatment Pain: 05/18 Plan Plan Frequency: 3 Plan weeks: 4 Goals (Total # of Visits to Date: 6) Short Term Goals Time Frame for Short Term Goals: 3 weeks Short Term Goal 1: Patient to initiate HEP for improved core and scapular strength for better postural control.-met Short Term Goal 2: Patient to be instructed in general strengthening to improve postural control and endurance with standing.-met Short Term Goal 3: Patient to be able to complete 5 sit/stands with no sand plant attendant and no LOB to improve functional strength.-progressing [employer] Operator Goals Time Frame for [employer] Operator Goals : 6 weeks Penitentiary Goal 1: Patient to be independent and compliant with HEP.-progressing [employer] Operator Goal 2: Patient to have improved core and B hip strength >/=4/5 grossly for improved lumbar stability.-progressing Penitentiary Goal 3: Patient to have improved B shoulder strength >/=4/5 grossly all planes for improved postural control.-progressing Penitentiary Goal 4: Patient to report ability to stand/walk >/=15minutes with no increase in back pain and no fatigue to improve endurance and return to PLOF.-progressing Minutes Tracking: Time In: 1301 Time Out: 1345 Minutes: 44 Moraima Jose De Jesus, MULTIPLE RESAW OPERATOR Date: 11/12/2023 documented in this encounter [facility] 11-08-2023 History of Present illness Narrative [facility] Out[facility] Physical Therapy Daily Note Patient: Ever Palmer : 1940 CSN #: [id number] Referring Physician: Molina Ramos DO Date: 11/08/2023 Diagnosis: Dorsal lumbar pain and spasm, M54.9, M62.830 Treatment Diagnosis: Back pain, general weakness PT Insurance Information: Medicare Total # of Visits Approved: 12 Per Physician Order Total # of Visits to Date: 4 No Show: 0 Canceled Appointment: 0 12/03/23 Plan of Care/Recert Due Pre-Treatment Pain: 5/10 Subjective: Pt reports 5/10 LBP today. pt states she had a busy weekend. Exercises: Exercise 1: HEP: shoulder rolls/retracs, supine PPT's, marching, glut sets, supine HAB's with orange band, supine B pec stretch Exercise 2: Scifit 10 min L1 Exercise 3: retractions/LAE GTB x15, GTB palloff [id number] ea Exercise 4: Sink exercises x15 ea with 1-2 UE support Exercise 5: ASU/LSU x10 ea Exercise 7: Sit to stands x10 Exercise 8: seated shrugs, retractions, retro shoulder rolls x15 Exercise 9: supine PPT, SKTC, LTR, bridge x15 ea Exercise 10: Seated thoracic stretch 10x10 Modality: Modality Flow Sheet: Performed (X) Tx Modality x Cold Pack: x10 min LB to decrease soreness Assessment Assessment: Pt continues to require frequent rest breaks d/t fatigue and VCs for technique. Pt able to complete 5 STS with good form but with B UE assist, as pt fatigues she has increased difficulty with transfers. CP post tx for soreness. Continue as pt tolerates. Activity Tolerance Activity Tolerance: Patient tolerated treatment well Patient Education Patient Education: HEP Pt verbalized/demonstrated good understanding: [x] Yes [] No, pt required further clarification. Post Treatment Pain: 04/17 Plan Plan Frequency: 3 Plan weeks: 4 Goals (Total # of Visits to Date: 4) Short Term Goals Time Frame for Short Term Goals: 3 weeks Short Term Goal 1: Patient to initiate HEP for improved core and scapular strength for better postural control.-met Short Term Goal 2: Patient to be instructed in general strengthening to improve postural control and endurance with standing.-met Short Term Goal 3: Patient to be able to complete 5 sit/stands with no sand plant attendant and no LOB to improve functional strength.-progressing [employer] Operator Goals Time Frame for Penitentiary Goals : 6 weeks Penitentiary Goal 1: Patient to be independent and compliant with HEP. Penitentiary Goal 2: Patient to have improved core and B hip strength >/=4/5 grossly for improved lumbar stability. Penitentiary Goal 3: Patient to have improved B shoulder strength >/=4/5 grossly all planes for improved postural control. Penitentiary Goal 4: Patient to report ability to stand/walk >/=15minutes with no increase in back pain and no fatigue to improve endurance and return to PLOF. Minutes Tracking: Time In: 1316 Time Out: 1408 Minutes: 52 Moraima Dela Cruz, MULTIPLE RESAW OPERATOR Date: 11/08/2023 documented in this encounter [facility] 2023 History of Present illness Narrative [facility] Outpatient Physical Therapy Daily Note Patient: Ever Mckay Spencer : 1940 CSN #: [id number] Referring Physician: Molina Ramos DO Date: 2023 Diagnosis: Dorsal lumbar pain and spasm, M54.9, M62.830 Treatment Diagnosis: Back pain, general weakness PT Insurance Information: Medicare Total # of Visits Approved: 12 Per Physician Order Total # of Visits to Date: 3 No Show: 0 Canceled Appointment: 0 12/03/23 Plan of Care/Recert Due Pre-Treatment Pain: 5/10 Subjective: Pt reports 5/10 LB pain today, stating it is in her tailbone. Pt states she has a hard time standing or walking for more than 15 min. Pt states she has difficulty getting dressed and with her balance. Exercises: Exercise 1: HEP: shoulder rolls/retracs, supine PPT's, marching, glut sets, supine HAB's with orange band, supine B pec stretch Exercise 2: Scifit 10 min L1 Exercise 3: retractions/LAE GTB x15 Exercise 4: Sink exercises 2 x 10 with 1-2 UE support Exercise 5: ASU x10 ea Exercise 7: Sit to stands x10 Exercise 8: seated shrugs, retractions, retro shoulder rolls x15 Exercise 9: supine PPT, SKTC, LTR, bridge x15 ea Exercise 10: Seated thoracic stretch 10x10 Assessment Assessment: Pt continues to require frequent rest breaks d/t fatigue and VCs for technique. Added thoracic ext stretch for improved posture. Pt declined modalities this visit. Continue as pt tolerates. Activity Tolerance Activity Tolerance: Patient tolerated treatment well Patient Education Patient Education: HEP Pt verbalized/demonstrated good understanding: [x] Yes [] No, pt required further clarification. Post Treatment Pain: 5/10 Plan Plan Frequency: 3 Plan weeks: 4 Goals (Total # of Visits to Date: 3) Short Term Goals Time Frame for Short Term Goals: 3 weeks Short Term Goal 1: Patient to initiate HEP for improved core and scapular strength for better postural control.-met Short Term Goal 2: Patient to be instructed in general strengthening to improve postural control and endurance with standing. Short Term Goal 3: Patient to be able to complete 5 sit/stands with no sand plant attendant and no LOB to improve functional strength. [employer] Operator Goals Time Frame for Penitentiary Goals : 6 weeks [employer] Operator Goal 1: Patient to be independent and compliant with HEP. [employer] Operator Goal 2: Patient to have improved core and B hip strength >/=4/5 grossly for improved lumbar stability. [employer] Operator Goal 3: Patient to have improved B shoulder strength >/=4/5 grossly all planes for improved postural control. [employer] Operator Goal 4: Patient to report ability to stand/walk >/=15minutes with no increase in back pain and no fatigue to improve endurance and return to PLOF. Minutes Tracking: Time In: 1316 Time Out: 1400 Minutes: 44 Moraima Dela Cruz, MULTIPLE RESAW OPERATOR Date: 2023 documented in this encounter [facility] 10-21-2021 Hospital Discharge instructions Eliecer Burris MD - 10/21/2021 6:55 PM EDT Your blood pressure was elevated during this visit and did not change significantly after giving you your home dose (5 mg) of amlodipine. However, this does not mean that this medication is not effective for you. You may have improvement and better blood pressure numbers moving forward. Please keep your current appointment with your doctor tomorrow. In the interim, return to the ED if you develop chest pain, trouble breathing, numbness, weakness, speech changes or any other concerns. Please check your blood pressure in the morning prior to your appointment and provide that number to your doctor tomorrow. The following attachments cannot be sent through Care Everywhere.Blood Pressure: Elevated ([place])documented in this encounter [facility] Phone: 10-05-2021 Hospital Discharge instructions Eliecer Burris MD - 10/05/2021 5:27 PM EDT Please follow-up with your primary care physician tomorrow. The neurologist has recommended that you have an echocardiogram; this will need to be scheduled by your primary care physician. The following attachments cannot be sent through Care Everywhere.UTI (Urinary Tract Infection): Female ([place])Dysarthria: General Info ([place])documented in this encounter [facility] Phone: 03-04-2021 Note [facility] Vascular Lower Extremities DVT Study Procedure Patient Name SPENCER Date of Study 03/03/2021 EVER Mckay Date of 1940 Gender Female Age 80 year(s) Race Room Number Corporate ID [id number] # Patient Acct [id number] # MR # [id number] Communication Spec Katie Jackson RVT Interpreting Physician Alissa Marx Referring Referring Physician Alissa Marx Nurse Practitioner Additional Comments REsults were reported to Dr. Marx's office 03/03/2021 @ 3275. Procedure Type of Study: Veins: Lower Extremities DVT Study, Venous Scan Lower Left. Indications for Study:Leg Swelling. Patient Status:STAT. Technical Quality:Adequate visualization. Comments:Simultaneous real time imaging utilizing B-Mode, color doppler and spectral waveform analysis was performed on the left lower extremity for venous examination of the deep and superficial systems. Conclusions Summary No evidence of deep venous thrombosis in the left lower extremity. Signature -- -- -- -- Left Impression: The common femoral, superficial and deep femoral, popliteal, tibials, peroneal, and saphenous veins were evaluated. The GSV was not visualized from the knee to the ankle, patient reports having a venous procedure done approximately 7 years ago. All veins were compressible with normal doppler responses. Velocities are measured in cm/s ; Diameters are measured in cm Right Lower Extremities DVT Study Measurements Right 2D Measurements + ------+ + --+ + !Location !Visualized!Compressibility!Thr ombosis! + ------+ + --+ + !Common Femoral !Yes !Yes !None ! + ------+ + --+ + !Prox Femoral !Yes !Yes !None ! + ------+ + --+ + !Mid Femoral !Yes !Yes !None ! + ------+ + --+ + !Dist Femoral !Yes !Yes !None ! + ------+ + --+ + !Deep Femoral !Yes !Yes !None ! + ------+ + --+ + !Popliteal !Yes !Yes !None ! + ------+ + --+ + !Sapheno Femoral Junction !Yes !Yes !None ! + ------+ + --+ + !PTV !Yes !Yes !None ! + ------+ + --+ + !Peroneal !Yes !Yes !None ! + ------+ + --+ + !Gastroc !Yes !Yes !None ! + ------+ + --+ + !GSV Thigh !Yes !Yes !None ! + ------+ + --+ + !GSV Knee !No ! ! ! + ------+ + --+ + !GSV Ankle !No ! ! ! + ------+ + --+ + !SSV !Yes !Yes !None ! + ------+ + --+ + Right Doppler Measurements + +--- ------+------+ + !Location !Signal !Reflux!Reflux (msec) ! + +--- ------+------+ + !Common Femoral !Pulsatile! ! ! + +--- ------+------+ (more content not included)... [facility] 01-21-2021 History of Present illness Narrative [facility] Out[facility] Physical Therapy Daily Note Patient: Ever Palmer : 1940 CSN #: [id number] Referring Practitioner: Molina Ramos DO Referral Date : 11/19/20 Date: 01/21/2021 Diagnosis: Ataxia, leg weakness, cervical disc disease, cervical spasm pain, orthostatic hypotension Treatment Diagnosis: generalized weakness, neck pain Onset Date: 04/17/20 PT Insurance Information: [employer] Total # of Visits Approved: 12 Per Physician Order Total # of Visits to Date: 10 No Show: 0 Canceled Appointment: 0 Pre-Treatment Pain: 03/20 Subjective: Pt reports she had a shot in her neck and shoulder yesterday to calm down her neck and shoulder. Exercises: Exercise 1: HEP: sink ex; yes/no's; scap retractions; No Money shld ER and scap retract. Exercise 2: Bike 10 min 2.5 Exercise 3: sit to stands 10x2 no hands Exercise 4: FSU/ LSU 8 15x ea Exercise 5: rows and extensions BTB 10x2 Exercise 6: Lien side step overs 10x2 high/ low Exercise 8: 1 big loop, fast/ slow/ sides/ fwd retro -holding small airex with cone Exercise 9: toe taps on step (limited UE) 15x ea alt Exercise 10: UBE 4 retro Exercise 11: High knee walking, side walking and zig zag walking 1 lap each in gym -airex with cone on top Exercise 12: recip steps (Airex with cone) CGA Modalities: Moist heat: x15min thoracic and cervical Assessment Assessment: Focused on dynamic balance ex today with use of aire-ex pad in arms to mimic carrying items at work. Pt able to forward flex and retrieve item from floor without LOB. Activity Tolerance Activity Tolerance: Patient Tolerated treatment well Patient Education Patient Education: New ex rationale. Pt verbalized/demonstrated good understanding: [x] Yes [] No, pt required further clarification. Post Treatment Pain: 2/10 Plan Times per week: 1-2 Plan weeks: 6 Goals (Total # of Visits to Date: 10) Short term goals Time Frame for Short term goals: 3 weeks Short term goal 1: Pt will initiate HEP.- met Short term goal 2: Pt will initiate manual techniques to assist with decreasing soft tissue restrictions and cervical pain.- met/cont Short term goal 3: Pt will be educated on postural awareness and initiated with postural strengthening to decrease stress on cervical spine - Met skilled nursing goals Time Frame for terminologist goals : 6 weeks terminologist goal 1: Pt will be independent and compliant with HEP. skilled nursing goal 2: Pt will improve L cervical rotation to be within 5* of R cervical rotation to improve functional mobility. skilled nursing goal 3: Pt will perform TUG in </= 10 seconds to decrease fall risk.- progressing skilled nursing goal 4: Pt will demonstrate ability to perform 5 sit to stands with hands on thighs to improve LE functional strength. Minutes Tracking: Time In: 930 Time Out: 1030 Minutes: 59 Timed Code Treatment Minutes: 43 Minutes Quincy Kumar PTA Date: 01/21/2021 documented in this encounter [facility] Phone: 01-13-2021 History of Present illness Narrative [facility] Outpatient Physical Therapy Daily Note Patient: Ever Palmer : 1940 CSN #: [id number] Referring Practitioner: Molina Ramos DO Referral Date : 11/19/20 Date: 01/13/2021 Diagnosis: Ataxia, leg weakness, cervical disc disease, cervical spasm pain, orthostatic hypotension Treatment Diagnosis: generalized weakness, neck pain Onset Date: 04/17/20 PT Insurance Information: [employer] Total # of Visits Approved: 12 Per Physician Order Total # of Visits to Date: 8 No Show: 0 Canceled Appointment: 0 Pre-Treatment Pain: 0/10 Subjective: Pt feels she getting stronger. ,States she still struggles to ,aimtain good upper back posture Exercises: Exercise 2: Bike 10 min 2.5 Exercise 3: sit to stands 10x2 no hands Exercise 4: FSU/ LSU 6 15x ea Exercise 5: rows and extensions BTB 10x2 Exercise 6: Lien side step overs 10x2 Exercise 7: Yes/no's; scap retracts; no money shld ER with scap retract. x10ea Exercise 8: 1 big loop, fast/ slow/ sides/ fwd retro Exercise 9: toe taps on step (limited UE) 15x ea alt Exercise 10: UBE 3/3 --standing Assessment Assessment: Pt progressed to UBE for endurance and strength training. Struggles a little with toe taps and hurdles without the use of her hands for support. Will continue to progress as tolerated Activity Tolerance Activity Tolerance: Patient Tolerated treatment well Patient Education Patient Education: HEP Pt verbalized/demonstrated good understanding: [x] Yes [] No, pt required further clarification. Post Treatment Pain: 0/10 Plan Times per week: 1-2 Plan weeks: 6 Goals (Total # of Visits to Date: 8) Short term goals Time Frame for Short term goals: 3 weeks Short term goal 1: Pt will initiate HEP.- met Short term goal 2: Pt will initiate manual techniques to assist with decreasing soft tissue restrictions and cervical pain.- met/cont Short term goal 3: Pt will be educated on postural awareness and initiated with postural strengthening to decrease stress on cervical spine - Met skilled nursing goals Time Frame for terminologist goals : 6 weeks skilled nursing goal 1: Pt will be independent and compliant with HEP. skilled nursing goal 2: Pt will improve L cervical rotation to be within 5* of R cervical rotation to improve functional mobility. skilled nursing goal 3: Pt will perform TUG in </= 10 seconds to decrease fall risk.- progressing skilled nursing goal 4: Pt will demonstrate ability to perform 5 sit to stands with hands on thighs to improve LE functional strength. Minutes Tracking: Time In: 1045 Time Out: 1139 Minutes: 54 Timed Code Treatment Minutes: 53 Minutes Ford Marsh Date: 01/13/2021 documented in this encounter [facility]: 01-06-2021 History of Present illness Narrative [facility] Outpatient Physical Therapy Daily Note Patient: Ever Palmer : 1940 CSN #: [id number] Referring Practitioner: Molina Ramos DO Referral Date : 11/19/20 Date: 01/06/2021 Diagnosis: Ataxia, leg weakness, cervical disc disease, cervical spasm pain, orthostatic hypotension Treatment Diagnosis: generalized weakness, neck pain Onset Date: 04/17/20 PT Insurance Information: [employer] Total # of Visits Approved: 12 Per Physician Order Total # of Visits to Date: 7 No Show: 0 Canceled Appointment: 0 Pre-Treatment Pain: 0/10 Subjective: Pt states she feels pretty weak today. Pt states she has noticed improvement with her neck and shoulder pain and even had a couple days with no pain. Exercises: Exercise 1: HEP: sink ex; yes/no's; scap retractions; No Money shld ER and scap retract. Exercise 2: Bike 10 min 2.5 Exercise 3: sit to stands 10x2 no hands Exercise 7: Yes/no's; scap retracts; no money shld ER with scap retract. x10ea Exercise 8: 1 big loop, fast/ slow/ sides/ fwd retro Modalities: Moist heat: x15min thoracic and cervical Assessment Assessment: Pt is able to perform 10 sit to stands with hands on thighs, meeting fpc goal. Pt performs TUG x2, with best time of 11.9 seconds this date. Reviewed HEP, which pt reports difficulty understanding proper form of scapular exercises, which was reviewed this date. Pt in agreement with cont of PT 1-2x/wk. Activity Tolerance Activity Tolerance: Patient Tolerated treatment well Patient Education Patient Education: Reviewed HEP and posture Pt verbalized/demonstrated good understanding: [x] Yes [] No, pt required further clarification. Post Treatment Pain: 0/10 Plan Times per week: 1-2 Plan weeks: 6 Goals (Total # of Visits to Date: 7) Short term goals Time Frame for Short term goals: 3 weeks Short term goal 1: Pt will initiate HEP.- met Short term goal 2: Pt will initiate manual techniques to assist with decreasing soft tissue restrictions and cervical pain.- met/cont Short term goal 3: Pt will be educated on postural awareness and initiated with postural strengthening to decrease stress on cervical spine - Met terminologist goals Time Frame for skilled nursing goals : 6 weeks skilled nursing goal 1: Pt will be independent and compliant with HEP. skilled nursing goal 2: Pt will improve L cervical rotation to be within 5* of R cervical rotation to improve functional mobility. skilled nursing goal 3: Pt will perform TUG in </= 10 seconds to decrease fall risk.- progressing terminologist goal 4: Pt will demonstrate ability to perform 5 sit to stands with hands on thighs to improve LE functional strength. Minutes Tracking: Time In: 1052 Time Out: 1155 Minutes: 63 Timed Code Treatment Minutes: 60 Minutes Darlin Ferrer PT, DPT Date: 01/06/2021 documented in this encounter [facility] Phone: 12-24-2020 History of Present illness Narrative [facility] Outpatient Physical Therapy Daily Note Patient: Ever Palmer : 1940 CSN #: [id number] Referring Practitioner: Molina Ramos DO Referral Date : 11/19/20 Date: 12/24/2020 Diagnosis: Ataxia, leg weakness, cervical disc disease, cervical spasm pain, orthostatic hypotension Treatment Diagnosis: generalized weakness, neck pain Onset Date: 04/17/20 PT Insurance Information: [employer] Total # of Visits Approved: 12 Per Physician Order Total # of Visits to Date: 5 No Show: 0 Canceled Appointment: 0 Pre-Treatment Pain: 2/10 Subjective: Pt continues to complain of weakness and feeling weak. Pt states her neck pain was bad last night but today is 2/10 in the UT region, collin. Exercises: Exercise 2: Bike 10 min 2.0 Exercise 3: sit to stands 10x2 no hands Exercise 4: FSU/ LSU 6 12x ea Exercise 9: toe taps on step (limited UE) 15x ea alt Manual: Soft Tissue Mobalization: STM through B SCM, B UT/LS and cervical paraspinals -- warm thermoprobe x8 mins Modalities: Moist heat: x15min thoracic and cervical Assessment Assessment: Pt requires mod to max verbal cues to move throughout entire range of motion for strengthening. Pt also has tendency to an ex and not recover enough. Once patient initiated ex, to do them properly, she required 2 recovery periods. Activity Tolerance Activity Tolerance: Patient Tolerated treatment well Patient Education Patient Education: Discussed posture correction Pt verbalized/demonstrated good understanding: [x] Yes [] No, pt required further clarification. Post Treatment Pain: Pt states it feels good Plan Times per week: 1-2 Plan weeks: 6 Goals (Total # of Visits to Date: 5) Short term goals Time Frame for Short term goals: 3 weeks Short term goal 1: Pt will initiate HEP.- met Short term goal 2: Pt will initiate manual techniques to assist with decreasing soft tissue restrictions and cervical pain.- met/cont Short term goal 3: Pt will be educated on postural awareness and initiated with postural strengthening to decrease stress on cervical spine - Met skilled nursing goals Time Frame for skilled nursing goals : 6 weeks terminologist goal 1: Pt will be independent and compliant with HEP. terminologist goal 2: Pt will improve L cervical rotation to be within 5* of R cervical rotation to improve functional mobility. skilled nursing goal 3: Pt will perform TUG in </= 10 seconds to decrease fall risk. terminologist goal 4: Pt will demonstrate ability to perform 5 sit to stands with hands on thighs to improve LE functional strength. Minutes Tracking: Time In: 1015 Time Out: 1117 Minutes: 62 Timed Code Treatment Minutes: 62 Minutes Delores Palma PT, DPT Date: 12/24/2020 documented in this encounter [facility] Phone: 12-23-2020 History of Present illness Narrative [facility] Outpatient Physical Therapy Daily Note Patient: Ever Palmer : 1940 CSN #: [id number] Referring Practitioner: Molina Ramos DO Referral Date : 11/19/20 Date: 12/23/2020 Diagnosis: Ataxia, leg weakness, cervical disc disease, cervical spasm pain, orthostatic hypotension Treatment Diagnosis: generalized weakness, neck pain Onset Date: 04/17/20 PT Insurance Information: [employer] Total # of Visits Approved: 12 Per Physician Order Total # of Visits to Date: 4 No Show: 0 Canceled Appointment: 0 Pre-Treatment Pain: 1/10 Subjective: Pt reports she feels like her blood pressure is high today but other than that shes just tired. 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 Pt rates current pain a 1/10. Exercises: Exercise 1: HEP: sink ex; yes/no's; scap retractions; No Money shld ER and scap retract. Exercise 2: Bike 10 min 2.0 Exercise 3: sit to stands 10x2 no hands Exercise 4: FSU/ LSU 6 12x ea Exercise 7: Yes/no's; scap retracts; no money shld ER with scap retract. x10ea Exercise 8: 1 big loop, fast/ slow/ sides/ fwd retro Exercise 9: toe taps on step (limited UE) 15x ea alt Manual: Soft Tissue Mobalization: STM through B SCM, B UT/LS and cervical paraspinals -- warm thermoprobe x8mins Modalities: Moist heat: x15min thoracic and cervical Assessment Assessment: Reviewed relaxation techniques with Pt to decrease stress placed on cervical spine d/t increased muscle guarding. Pt displayed greater difficulty with L forward and side ways step up and displays unsteadiness with retro amb. Will continue to progress. Activity Tolerance Activity Tolerance: Patient Tolerated treatment well Patient Education Patient Education: Reviewed HEP Pt verbalized/demonstrated good understanding: [x] Yes [] No, pt required further clarification. Post Treatment Pain: 1/10 Plan Times per week: 1-2 Plan weeks: 6 Goals (Total # of Visits to Date: 4) Short term goals Time Frame for Short term goals: 3 weeks Short term goal 1: Pt will initiate HEP.- met Short term goal 2: Pt will initiate manual techniques to assist with decreasing soft tissue restrictions and cervical pain.- met/cont Short term goal 3: Pt will be educated on postural awareness and initiated with postural strengthening to decrease stress on cervical spine. terminologist goals Time Frame for skilled nursing goals : 6 weeks terminologist goal 1: Pt will be independent and compliant with HEP. terminologist goal 2: Pt will improve L cervical rotation to be within 5* of R cervical rotation to improve functional mobility. skilled nursing goal 3: Pt will perform TUG in </= 10 seconds to decrease fall risk. skilled nursing goal 4: Pt will demonstrate ability to perform 5 sit to stands with hands on thighs to improve LE functional strength. Minutes Tracking: Time In: 1014 Time Out: 1115 Minutes: 61 Timed Code Treatment Minutes: 59 Minutes Quincy Kumar PTA Date: 12/23/2020 documented in this encounter [facility] Phone: 12-17-2020 History of Present illness Narrative [facility] Outpatient Physical Therapy Daily Note Patient: Ever Palmer : 1940 CSN #: [id number] Referring Practitioner: Molina Ramos DO Referral Date : 11/19/20 Date: 12/17/2020 Diagnosis: Ataxia, leg weakness, cervical disc disease, cervical spasm pain, orthostatic hypotension Treatment Diagnosis: generalized weakness, neck pain Onset Date: 04/17/20 PT Insurance Information: [employer] Total # of Visits Approved: 12 Per Physician Order Total # of Visits to Date: 3 No Show: 0 Canceled Appointment: 0 Pre-Treatment Pain: 0/10 Subjective: Pt states she feels weak today. Pt states her neck pain isn't too bad right now, but continues to get worse as the day goes on. Exercises: Exercise 1: HEP: sink ex; yes/no's; scap retractions; No Money shld ER and scap retract. Exercise 2: Bike 10 min 2.0 Exercise 3: sit to stands 10x2 no hands Exercise 5: rows and extensions BTB 10x2 Exercise 7: Yes/no's; scap retracts; no money shld ER with scap retract. x10ea Manual: Soft Tissue Mobalization: STM through B SCM, B UT/LS and cervical paraspinals -- warm thermoprobe x8mins Modalities: Moist heat: x15min thoracic and cervical Assessment Assessment: Reviewed HEP for overall form and understanding. Pt requires verbal and tactile cuing for proper scap retraction with postural strengthening exercises. Initiated warm thermoprobe to B UT/LS and cervical musculature to assist with STM, which pt reports relief following. MHP applied at end of tx for neck pain. Will progress as tolerated. Activity Tolerance Activity Tolerance: Patient Tolerated treatment well Patient Education Patient Education: Reviewed HEP Pt verbalized/demonstrated good understanding: [x] Yes [] No, pt required further clarification. Post Treatment Pain: 0/10 Plan Times per week: 1-2 Plan weeks: 6 Goals (Total # of Visits to Date: 3) Short term goals Time Frame for Short term goals: 3 weeks Short term goal 1: Pt will initiate HEP.- met Short term goal 2: Pt will initiate manual techniques to assist with decreasing soft tissue restrictions and cervical pain.- met/cont Short term goal 3: Pt will be educated on postural awareness and initiated with postural strengthening to decrease stress on cervical spine. terminologist goals Time Frame for terminologist goals : 6 weeks terminologist goal 1: Pt will be independent and compliant with HEP. terminologist goal 2: Pt will improve L cervical rotation to be within 5* of R cervical rotation to improve functional mobility. skilled nursing goal 3: Pt will perform TUG in </= 10 seconds to decrease fall risk. terminologist goal 4: Pt will demonstrate ability to perform 5 sit to stands with hands on thighs to improve LE functional strength. 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 Word list retention - category inclusion: increased to 22/22 with min verbal cues and repetitions. Functional memory - paragraphs 3-4 elements inclusion: 13/16 increased to 16/16 with min verbal cues. Memory and mental manipulation - scrambled sentences 4 words: 8/8. Problem Solving/Reasoning: Word deductions: 8/9 increased to 9/9 with min verbal cues. Other: Memory compensatory strategies reviewed with pt. And left at bedside. Pt. Encouraged to utilize strategies to aid in recall. Pt. Verbalized understanding. Plan: [x] Continue ST services [] Discharge from ST: Discharge recommendations: [] Inpatient Rehab [] Long-Term Facility [] Outpatient Therapy [] Follow up at trauma clinic [x] Other: Further therapy recommended at discharge. Completed by: Olive Mann Cell Efficiency Supervisor Clinician Cosigned By: Paula Rangel M.S.CCC/OFFICE SERVICES SPECIALIST Occupational Therapy Occupational Therapy Initial Assessment Date: 09/03/2020 Patient Name: Ever Palmer : 1940 Date of Service: 09/03/2020 Chief Complaint Patient presents with Aphasia from angio, became altered after procedure, stroke alert tpa Discharge Recommendations: Further therapy recommended at discharge. Continue to assess Assessment Performance deficits / Impairments: Decreased functional mobility ;Decreased ADL status;Decreased high-level IADLs;Decreased endurance Prognosis: Good Decision Making: Medium Complexity Patient Education: pt ed on POC, purpose ofeval, importance of movement, safety during functional transfers/functional mobility. good return REQUIRES OT FOLLOW UP: Yes Activity Tolerance Activity Tolerance: Patient Tolerated treatment well Safety Devices Safety Devices in place: Yes Type of devices: Gait belt;Call light within reach;Left in bed;Bed alarm in place;Patient at risk for falls Restraints Initially in place: No Patient Diagnosis(es): The encounter diagnosis was Altered mental status, unspecified altered mental status type. has a past medical history of Asthma, Cerebral artery occlusion with cerebral infarction (HCC), Diabetes mellitus (HCC), History of DVT (deep vein thrombosis), Hypertension, Status post transesophageal echocardiogram (ALEKSANDRA), and TIA (transient ischemic attack). has a past surgical history that includes Hysterectomy; Carpal tunnel release (Bilateral); Ankle surgery (Left); Colonoscopy; Appendectomy; Cholecystectomy; Cataract removal with implant (Left); Cataract removal with implant (Right, 12/20/2017); pr xcapsl ctrc rmvl insj io lens prosth w/o ecp (Right, 12/20/2017); and other surgical history (09/02/2020). Restrictions Restrictions/Precautions Restrictions/Precautions: Fall Risk, Up as Tolerated, Seizure Required Braces or Orthoses?: No Position Activity Restriction Other position/activity restrictions: S/p angiogram 09/02; tPA administered 09/02, LTME Subjective General Patient assessed for rehabilitation services?: Yes Family / Caregiver Present: Yes (pt present for second half of session) General Comment Comments: RN ok'd for therapy this morning. pt agreeable to participate in session and cooperative/pleasant throughout Patient Currently in Pain: Yes Pain Assessment Pain Assessment: 0-10 Pain Level: 5 Pain Type: Acute pain Pain Location: Head Non-Pharmaceutical Pain Intervention(s): Ambulation/Increased Activity;Distraction;Therapeuti c presence Response to Pain Intervention: Patient Satisfied Social/Functional History Social/Functional History Lives With: Family, Son (son lives w/ pt at times) Type of Home: House Home Layout: Laundry in basement, Two level, Bed/Bath upstairs, 1/2 bath on main level Home Access: Stairs to enter without rails Entrance Stairs - Number of Steps: 2 Entrance Stairs - Rails: None Bathroom Shower/Tub: Tub/Shower unit Bathroom Toilet: Standard Home Equipment: (no DME at baseline) ADL Assistance: Independent Homemaking Assistance: Independent Homemaking Responsibilities: Yes Meal Prep Responsibility: Primary Cleaning Responsibility: Primary Shopping Responsibility: Primary Ambulation Assistance: Independent Transfer Assistance: Independent Active Escrow Clerk: Yes Mode of Transportation: Car 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 pt returned to supine in bed in order to maintain safety. BP supine 120/46, RN notified. ADL Feeding: Modified independent Grooming: Modified independent UE Bathing: Stand by assistance LE Bathing: Contact guard assistance UE Dressing: Stand by assistance LE Dressing: Contact guard assistance Toileting: Contact guard assistance Additional Comments: OT facilitated pt in donning B socks while sitting on EOB. pt required increased time to complete and utilized figure four tech Tone RUE RUE Tone: Normotonic Tone LUE LUE Tone: Normotonic Coordination Movements Are Fluid And Coordinated: Yes Bed mobility Supine to Sit: Minimal assistance (for trunk progression) Sit to Supine: Minimal assistance (for B LE progresion) Scooting: Contact guard assistance Transfers Sit to stand: Contact guard assistance Stand to sit: Contact guard assistance Transfer Comments: with RW Cognition Overall Cognitive Status: Exceptions Arousal/Alertness: Delayed responses to stimuli Following Commands: Follows multistep commands with repitition Attention Span: Attends with cues to redirect Safety Judgement: Decreased awareness of need for assistance;Decreased awareness of need for safety Insights: Decreased awareness of deficits Initiation: Requires cues for some Sequencing: Requires cues for some Cognition Comment: pt slightly slow to respond to questions and commands and required repetition throughout. Pt with slow quiet speech throughout Sensation Overall Sensation Status: WFL LUE AROM (degrees) LUE AROM : Exceptions L Shoulder Flexion 0-180: 0-90 L Elbow Flexion 0-145: WFL L Wrist Flexion 0-80: WFL L Wrist Extension 0-70: WFL Left Hand AROM (degrees) Left Hand AROM: WFL RUE AROM (degrees) RUE AROM : Exceptions R Shoulder Flexion 0-180: 0-90 R Elbow Flexion 0-145: WFL R Wrist Flexion 0-80: WFL R Wrist Extension 0-70: WFL Right Hand AROM (degrees) Right Hand AROM: WFL LUE Strength Gross LUE Strength: WFL L Hand General: 4+/5 RUE Strength Gross RUE Strength: WFL R Hand General: 4+/5 Plan Plan Times per week: 2-3x/wk AM-PAC Score AM-PAC Inpatient Daily Activity Raw Score: 20 (09/03/201452) AM-PAC Inpatient ADL T-Scale Score : 42.03 (09/03/201452) ADL Inpatient CMS 0-100% Score: 38.32 (09/03/201452) ADL Inpatient CMS G-Code Modifier : CJ (09/03/201452) Goals Short term goals Time Frame for Short term goals: pt will, by discharge Short term goal 1: complete LB ADLS and toileting tasks with SBA and set up Short term goal 2: complete UB ADLs and grooming tasks with mod I Short term goal 3: increase activity tolerance to 20+ minutes in order to participate in daily tasks Short term goal 4: dem SBA During functional transfers/functional mobilitywith LRD, as needed Short term goal 5: dem ~8 mintuesdynamic standing tolerance with SBA in order to complete functional tasks Therapy Time Individual Concurrent Group Co-treatment Time In 935 Time Out 1003 Minutes 27 co-eval with PT Timed Code Treatment Minutes: 8 Minutes Glenny Rabago OTR/L Physical Therapy Facility/Department: [address] Initial Assessment NAME: Ever Nely Palmer : 1940 Chief Complaint Patient presents with Aphasia from angio, became altered after procedure, stroke alert tpa Date of Service: 09/03/2020 Discharge Recommendations: Further therapy recommended at discharge. PT Equipment Recommendations Equipment Needed: No (unsafe to ambulate at this date, will continue to assess) Assessment Body structures, Functions, Activity limitations: Decreased functional mobility ;Decreased ADL status;Decreased strength;Decreased endurance;Decreased balance;Decreased posture;Increased pain Assessment: Pt completed transfers with CGA and bed mobility wiht Min A, unsafe to ambulate at this date due to drop in BP. Pt could benefit from continued PT in order to improve functional mobility. Pt currently unsafe to return to prior living situation due to increased risk of falls and assist required to completed functional mobility. Will continue to assess pending progress. Prognosis: Fair Decision Making: Medium Complexity PT Education: Goals;PT Role;Plan of Care;Precautions;Transfer Training;Equipment;General Safety;Functional Mobility Training Barriers to Learning: pt current cognitive status REQUIRES PT FOLLOW UP: Yes Activity Tolerance Activity Tolerance: Treatment limited secondary to medical complications (free text) Activity Tolerance: hypotension Patient Diagnosis(es): The encounter diagnosis was Altered mental status, unspecified altered mental status type. has a past medical history of Asthma, Cerebral artery occlusion with cerebral infarction (HCC), Diabetes mellitus (HCC), History of DVT (deep vein thrombosis), Hypertension, Status post transesophageal echocardiogram (ALEKSANDRA), and TIA (transient ischemic attack). has a past surgical history that includes Hysterectomy; Carpal tunnel release (Bilateral); Ankle surgery (Left); Colonoscopy; Appendectomy; Cholecystectomy; Cataract removal with implant (Left); Cataract removal with implant (Right, 12/20/2017); pr xcapsl ctrc rmvl insj io lens prosth w/o ecp (Right, 12/20/2017); and other surgical history (09/02/2020). Restrictions Restrictions/Precautions Restrictions/Precautions: Fall Risk, Up as Tolerated, Seizure Required Braces or Orthoses?: No Position Activity Restriction Other position/activity restrictions: S/p angiogram 09/02; tPA administered 09/02, LTME Vision/Hearing Vision: Impaired Vision Exceptions: Wears glasses at all times Hearing: Within functional limits Subjective General Patient assessed for rehabilitation services?: Yes Response To Previous Treatment: Not applicable Family / Caregiver Present: Yes ( arrived during eval) Follows Commands: Impaired General Comment Comments: LTME Subjective Subjective: Pt and RN agreeable to PT. Pt supine in bed upon arrival and exit. Pt cooperative throughout. Pain Screening Patient Currently in Pain: Yes Pain Assessment Pain Assessment: 0-10 Pain Level: 5 Pain Type: Acute pain Pain Location: Head Pain Descriptors: Headache Non-Pharmaceutical Pain Intervention(s): Ambulation/Increased Activity;Distraction Response to Pain Intervention: Patient Satisfied;Symptomatic drop in B/P Vital Signs Patient Currently in Pain: Yes Orientation Orientation Overall Orientation Status: Within Functional Limits Social/Functional History Social/Functional History Lives With: Family, Son (son lives w/ pt at times) Type of Home: House Home Layout: Laundry in basement, Two level, Bed/Bath upstairs, 1/2 bath on main level Home Access: Stairs to enter without rails Entrance Stairs - Number of Steps: 2 Entrance Stairs - Rails: None Bathroom Shower/Tub: Tub/Shower unit Bathroom Toilet: Standard Home Equipment: (no DME at baseline) ADL Assistance: Independent Homemaking Assistance: Independent Homemaking Responsibilities: Yes Meal Prep Responsibility: Primary Cleaning Responsibility: Primary Shopping Responsibility: Primary Ambulation Assistance: Independent Transfer Assistance: Independent Active Escrow Clerk: Yes Mode of Transportation: Car 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 Type of occupation: [employer] Additional Comments: pt reported stays in apartment above restaurant and son is in and out Cognition Cognition Overall Cognitive Status: Exceptions Arousal/Alertness: Delayed responses to stimuli Following Commands: Follows one step commands with repetition;Follows one step commands consistently;Follows one step commands with increased time Attention Span: Attends with cues to redirect Safety Judgement: Decreased awareness of need for assistance;Decreased awareness of need for safety Insights: Decreased awareness of deficits Initiation: Requires cues for some Sequencing: Requires cues for some Objective Joint Mobility Spine: increased kyphotic curve ROM RLE: WFL ROM LLE: WFL ROM RUE: WFL ROM LUE: WFL Strength RLE Strength RLE: WFL Comment: grossly 4/5 Strength LLE Strength LLE: WFL Comment: grossly 4-/5 Strength RUE Strength RUE: WFL Comment: assessed by OT Strength LUE Strength LUE: WFL Comment: assessed by OT Tone RLE RLE Tone: Normotonic Tone LLE LLE Tone: Normotonic Motor Control Gross Motor?: WFL Sensation Overall Sensation Status: WFL (pt denies any N/T) Bed mobility Supine to Sit: Minimal assistance (assist for trunk progression) Sit to Supine: Minimal assistance (assist for BLE progression) Comment: Pt appears to have increased confusion upon sitting BP taken (113/62). pt questioned about dizziness/incresed intensity of ROMERO and pt reports I don't know Transfers Sit to Stand: Contact guard assistance Stand to sit: Contact guard assistance Comment: repeat BP taken at this time (). Pt returned to seated and supine position. BP taken again in supine and improved to 120/46. RN notified about BP upon exit. Ambulation Ambulation?: No (unsafe to ambulate at this date due to BP) Stairs/Curb Stairs?: No Balance Posture: Fair Sitting - Static: Fair;+ Sitting - Dynamic: Fair Standing - Static: Fair Standing - Dynamic: (not formally assessed at this date) Comments: static standing balance assessed with RW Plan Plan Times per week: 5-6x/wk Current Treatment Recommendations: Strengthening, ROM, Balance Training, Functional Mobility Training, Transfer Training, ADL/Self-care Training, Stair training, Gait Training, Endurance Training, Home Exercise Program, Safety Education & Training, Patient/Caregiver Education & Training, Positioning Safety Devices Type of devices: All fall risk precautions in place, Bed alarm in place, Call light within reach, Gait belt, Patient at risk for falls, Left in bed, Nurse notified Restraints Initially in place: No AM-PAC Score AM-PAC Inpatient Mobility Raw Score : 15 (09/03/201200) AM-PAC Inpatient T-Scale Score : 39.45 (09/03/201200) Mobility Inpatient CMS 0-100% Score: 57.7 (09/03/201200) Mobility Inpatient CMS G-Code Modifier : CK (09/03/201200) Goals Short term goals Time Frame for Short term goals: 14 visits Short term goal 1: Ambulate 200ft supervision with least restrictive AD Short term goal 2: Ascend/descend 1 flight of stairs without handrail and supervision Short term goal 3: Demo Good- dynamic standing balance Short term goal 4: Perform transfers independently Short term goal 5: Perform bed mobility Mod I Therapy Time Individual Concurrent Group Co-treatment Time In 935 Time Out 1006 Minutes 30 Timed Code Treatment Minutes: 8 Minutes Tia Robin Evaluation/treatment performed by Student PT under the supervision of co-signing PT who agrees with all evaluation/treatment and documentation. Speech Language Pathology Facility/Department: [address] Initial Speech/Language/Cognitive Assessment NAME: Ever Palmer : 1940 ADMISSION DATE: 09/02/2020 ADMITTING DIAGNOSIS: has TIA (transient ischemic attack); Anterior communicating artery aneurysm; Stroke-like symptoms; Altered mental status; Received intravenous tissue plasminogen activator (tPA) in emergency department; and TGA (transient global amnesia) on their problem list. Date of Eval: 09/03/2020 Evaluating Therapist: RADHA Harris Primary Complaint: The patient is a 79 y.o. female presented 09/02/2020 as an elective outpatient DSA to access ACOM artery aneurysm. PMH significant for TIA, HTN, DM. Patient presented initially in april 2020 with acute onset speech difficulty and unable to text. MRI negative at that time and symptoms resolved. At that time workup showing ACOMM aneurysm. Came today for diagnostic angiogram and postoperatively noted to have increased confusion with receptive aphasia. On my exam patient has right groin Fem Stop in place set to 22 mmHg. Patients at bedside patient not following commands withdrawals to pain in all 4 extremities. Patient speaking in word salad although noted when given deep nail bed pressure in both legs stated owe that hurt a lot . Plan for patient to be admitted to NICU post TPA precautions and stat LTME to rule out subclinical seizure activity as initial stroke workup including MRI brain are unremarkable. Pain: Pain Assessment Pain Assessment: 0-10 Pain Level: 5 Pain Type: Acute pain Pain Location: Head Pain Descriptors: Headache Non-Pharmaceutical Pain Intervention(s): Ambulation/Increased Activity, Distraction Response to Pain Intervention: Patient Satisfied, Symptomatic drop in B/P Assessment:Pt presents with mild cognitive deficits characterized by impaired short term recall and deductive reasoning. Note patient is lethargic but cooperative. Pt. Presents with no dysarthria, no O/M deficits at this time. ST to follow up and provide treatment to address noted deficits. Education provided. ST recommends continued therapy at this time. Recommendations: Requires OFFICE SERVICES SPECIALIST Intervention: Yes Duration/Frequency of Treatment: 3-5x/week D/C Recommendations: Further therapy recommended at discharge. Plan: Goals: Short-term Goals Goal 1: Patient will recall 3-5 units with distraction with 90% accuracy. Goal 2: Patient will complete word deductions with 90% accuracy. 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 Type of occupation: family [employer] Hearing Hearing: Within functional limits Objective: Oral/Motor Oral Motor: Within functional limits Expression Primary Mode of Expression: Verbal Motor Speech Motor Speech: Within Functional Limits Cognition: Orientation Overall Orientation Status: Within Normal Limits Attention Attention: Within Functional Limits Memory Memory: Exceptions to WFL Short-term Memory: Mild 2/3 improved to 3/3, 2/3 Working Memory: (WFL) Problem Solving Problem Solving: Within Functional Limits Word associations WFL Sequencing WFL Abstract Reasoning Abstract Reasoning: Within Functional Limits Similarities/differences WFL Inductive reasoning 3/4 improved to 4/4 with min cue Antonyms WFL Safety/Judgement Safety/Judgement: Within Functional Limits Word deductions: 2/3 Generative naming WFL +14 Prognosis: Speech Therapy Prognosis Prognosis: Good Individuals consulted Consulted and agree with results and recommendations: Patient;RN;Family member Education: Patient Education: yes Patient Education Response: Verbalizes understanding Therapy Time: Individual Concurrent Group Co-treatment Time In 1014 Time Out 1025 Minutes 11 RADHA Harris 09/03/2020 11:[address] Monteiro of repeat vital signs. Continue to closely monitor at this time. Notified Dr. Monteiro of pt's orthostatic vital signs. Pt care discussed. Will recycle BP and notify Dr. Monteiro per his request. Images from the original note were not included. Daily Progress Note Neuro Critical Care Patient Name: Ever Palmer Patient : 1940 Room/Bed: [facility]0528-01 Code Status: Full Code Allergies: Allergies Allergen Reactions Morphine CHIEF COMPLAINT: s/p TPA, aphasia INTERVAL HISTORY Initial Presentation (Admitted 09/02/20): Ever Palmer is a 79 y.o. female with pmh of htn, dmii, ashtma, and TIA aphasia 04/2020 who presents from neuro endovascular [employer] after undergoing elective outpatient diagnostic angiogram to access a comm artery aneurysm. Postop patient began to have increased confusion with receptive aphasia, was brought directly to the emergency department with Dr. Lomax and fellow Dr. Mcdonald, they placed TPA orders as well as CTA. At baseline pt has no focal deficits. lkn was 945am 09/02/2020. Following the procedure pt was unable to name, but following commands, minutes later she was unable to follow commands, and was making nonsensical but fluent speech. sbp 160's. Of note at the time of her TIA in 04/2020 event lasted hours, MRI negative at the time. since this time pt has daily eps of brief word finding difficulty lasting seconds . Last 24h: Nursing reports that around 2am the patient regained orientation and speech. At that time the patient was AOx2. The patient was AOx3 at my time of exam and had no deficits. The patient had orthostatic hypotension with PT today. CURRENT MEDICATIONS: SCHEDULED MEDICATIONS: sodium chloride 50 mL Intravenous Once sodium chloride flush 5-40 mL Intravenous 2 times per day [Held by provider] amLODIPine 5 mg Oral Daily [Held by provider] aspirin 81 mg Oral Daily atorvastatin 40 mg Oral Nightly busPIRone 15 mg Oral BID [Held by provider] clopidogrel 75 mg Oral Daily gabapentin 100 mg Oral Nightly lactulose 10 g Oral BID [Held by provider] losartan 50 mg Oral BID sodium chloride flush 5-40 mL Intravenous 2 times per day haloperidol lactate 5 mg Intramuscular Once CONTINUOUS INFUSIONS: sodium chloride sodium chloride PRN MEDICATIONS: sodium chloride flush, sodium chloride, sodium chloride flush, sodium chloride, ondansetron OR ondansetron, polyethylene glycol, labetalol, promethazine VITALS: Temperature Range: Temp: 98.5 F (36.9 C) Temp Av.2 F (36.8 C) Min: 96 F (35.6 C) Max: 100.4 F (38 C) BP Range: Systolic (24hrs), Av , Min:101 , Max:172 Diastolic (24hrs), Av, Min:35, Max:114 Pulse Range: Pulse Av.4 Min: 47 Max: 92 Respiration Range: Resp Av.8 Min: 0 Max: 24 Current Pulse Ox: SpO2: 98 % 24HR Pulse Ox Range: SpO2 Av.2 % Min: 95 % Max: 100 % Patient Vitals for the past 12 hrs: BP Temp Temp src Pulse Resp SpO2 09/03/20 0800 (!) 142/41 98.5 F (36.9 C) Oral 54 16 98 % 09/03/20 0700 (!) 134/45 57 14 97 % 09/03/20 0600 (!) 140/42 61 14 98 % 09/03/20 0500 (!) 129/39 55 16 98 % 09/03/20 0400 (!) 114/45 98.8 F (37.1 C) CORE 64 13 98 % 09/03/20 0330 (!) 139/58 64 17 99 % 09/03/20 0300 (!) 111/45 98.8 F (37.1 C) CORE 58 21 97 % 09/03/20 0230 (!) 131/40 58 15 97 % 09/03/20 0200 (!) 113/37 98.4 F (36.9 C) CORE 80 13 100 % 09/03/20 0130 (!) 119/45 70 13 98 % 09/03/20 0100 (!) 117/50 99.5 F (37.5 C) CORE 78 15 97 % 09/03/20 0030 (!) 120/50 76 20 97 % 09/03/20 0000 (!) 124/48 99.3 F (37.4 C) CORE 71 15 98 % 09/02/20 2330 (!) 115/39 75 16 98 % 09/02/20 2300 (!) 120/46 100 F (37.8 C) CORE 71 14 97 % 09/02/20 2230 (!) 113/39 71 15 96 % 09/02/20 2200 (!) 110/35 100.4 F (38 C) CORE 76 15 96 % 09/02/20 2130 136/85 91 17 09/02/20 2100 (!) 101/41 97 F (36.1 C) Oral 92 24 99 % RECENT LABS: Lab Results Component Value Date WBC 11.8 (H) 09/02/2020 HGB 11.4 (L) 09/02/2020 HCT 35.8 (L) 09/02/2020 PLT 215 09/02/2020 CHOL 123 09/02/2020 TRIG 70 09/02/2020 HDL 69 09/02/2020 ALT 17 06/02/2020 AST 21 06/02/2020 NA 139 09/03/2020 K 4.7 09/03/2020 CL 106 09/03/2020 CREATININE 0.50 09/03/2020 BUN 12 09/03/2020 CO2 21 09/03/2020 TSH 0.99 09/02/2020 INR 1.1 09/02/2020 LABA1C 6.2 (H) 09/02/2020 24 HOUR INTAKE/OUTPUT: Intake/Output Summary (Last 24 hours) at 09/03/2020 0858 Last data filed at 09/03/2020 0739 Gross per 24 hour Intake 1128 ml Output 1670 ml Net -542 ml Labs and Images reviewed with: [x] Dr. Jerica Sapp [] Dr. Lazaro Gutierrez [] Dr. Gianluca Jones [] There are no new interval images to review. PHYSICAL EXAM CONSTITUTIONAL: Well developed, well nourished, alert and oriented x 3, in no acute distress. GCS 15. Nontoxic. No dysarthria. No aphasia. HEAD: normocephalic, atraumatic EYES: PERRLA, EOMI. Visual Acuity and Peripheral vision in tact b/l ENT: moist mucous membranes NECK: supple, symmetric LUNGS: Equal air entry bilaterally CARDIOVASCULAR: normal s1 / s2, RRR, distal pulses intact ABDOMEN: Soft, no rigidity NEUROLOGIC: SKIN:: Mental Status: A & O x3,awake Cranial Nerves: II: Visual acuity: normal II: Visual rios: normal III: Pupils: equal, round, reactive to light III,IV,: Extra Ocular Movements: intact V: Facial sensation: intact VII: Facial strength: intact VIII: Hearing: intact IX: Palate: intact XI: Shoulder shrug: intact XII: Tongue movement: normal Motor Exam: Drift: absent Tone: normal MOTOR: RUE: 5/5 LUE: 5/5 RLE: 5/5 LLE: 5/5 Sensory: Touch: Right Upper Extremity: normal Left Upper Extremity: normal Right Lower Extremity: normal Left Lower Extremity: normal No signs of ecchymosis surrounding right groin, no dunlap mireles sign, no nancy's sign DRAINS: [x] There are no drains for Neuro Critical Care to monitor at this time. ASSESSMENT AND PLAN: NEUROLOGIC: - Imaging: CT Head 09/03/20: FINDINGS: BRAIN/VENTRICLES: There is no acute intracranial hemorrhage, mass effect or midline shift. No abnormal extra-axial fluid collection. The brain is unchanged in appearance. ORBITS: The visualized portion of the orbits demonstrate no acute abnormality. SINUSES: The visualized paranasal sinuses and mastoid air cells demonstrate no acute abnormality. SOFT TISSUES/SKULL: No acute abnormality of the visualized skull or soft tissues. - AEDs One time Dose of Keppra -LTME negative for epileptic activity, will d/c -NEV notified for hypotension in setting of mild Hgb drop, will trend Hgb q8h - Goal SBP 100-180 CARDIOVASCULAR: BP Range: Systolic (24hrs), Av , Min:101 , Max:172 Diastolic (24hrs), Av, Min:35, Max:114 Pulse Range: Pulse Av.4 Min: 47 Max: 92 - Goal SBP 100-180 PULMONARY: Respiration Range: Resp Av.8 Min: 0 Max: 24 Current Pulse Ox: SpO2: 98 % 24HR Pulse Ox Range: SpO2 Av.2 % Min: 95 % Max: 100 % RENAL/FLUID/ELECTROLYTE: - BUN 12/ Creatinine 0.50 - I/O: In: 1128 [I.V.:1128] Out: 1670 [Urine:1670] - IVF: One time bolus of Normal Saline 500cc GI/NUTRITION: NUTRITION: ADULT DIET; Regular - Bowel regimen: Was on lactulose, dc'd today - GI prophylaxis: None ID: Tmax: Temp (24hrs), Av.2 F (36.8 C), Min:96 F (35.6 C), Max:100.4 F (38 C) Temperature Range: Temp: 98.5 F (36.9 C) Temp Av.2 F (36.8 C) Min: 96 F (35.6 C) Max: 100.4 F (38 C) - WBC Lab Results Component Value Date WBC 11.8 (H) 09/02/2020 - Antimicrobials: not indicated HEME: Recent Labs 09/02/20 1558 HGB 11.4* stable ENDOCRINE: - Continue to monitor blood glucose, goal <180 - glucose controlled - most recent BGL is Recent Labs 09/02/20 1558 09/03/20 0539 GLUCOSE 109* 110* 94 OTHER: - PT/OT/ST - Code Status: Full Code DVT PROPHYLAXIS: - SCD sleeves DISPOSITION: [x] To remain ICU: [] OK for out of ICU from Neuro Critical Care standpoint We will continue to follow along. For any changes in exam or patient status please contact Neuro Critical Care. King Monteiro MD Neuro Critical Care Pager [phone] 09/03/2020 8:58 AM Associated attestation - Jerica Sapp MD - 09/03/2020 3:11 PM EDT Neuro critical care Case discussed with resident physician / JD including pertinent history and exam findings with the resident. I have reviewed medications, clinical laboratory, imaging and other diagnostic tests with the residents. I have seen and examined the patient and the eason elements of the encounter have been performed by me. I agree with the assessment, plan and orders as documented by the resident with changes made to the note. Post TPA precautions completed Repeat CT head at 24 hours unremarkable for acute abnormalities. No hemorrhage. MRI brain study yesterday and was without any diffusion restriction EEG monitoring with no seizures or epileptiform discharges. DC LTME monitoring Improved speech deficits overnight and patient is at her neurological baseline with NIH of 0. During PT evaluation, blood pressures down to 80s and was found to have orthostatic hypotension. Intravascular volume assessed by ultrasound. IV fluids started Encourage p.o. intake Hemoglobin down to 9.8, will repeat in 6 to 8 hours Repeat orthostatic vitals later today Get therapy evaluations Start ASA/antiplatelet and statin therapy Okay for DVT chemoprophylaxis Total time spent was 38 minutes excluding procedural time with greater than 50% of time spent face to face, counseling, coordinating care, examining patient, reviewing images and labs personally, and speaking with team Pt continues to be restless, not keeping femstop in place. Femstop removed at this time. Right groin site is soft, clean, dry and intact with bruising noted. Pulses palpable. Continue to closely monitor. STAT ALTM started. Patient hooked with MRI/CT compatible electrodes Ever is a 79 YO F here with receptive aphasia and AMS. Patient unable to follow commands and is being started on LTME due to concern for seizure. Patient is restless and agitated pulling at LTME leads thus requires soft bilateral wrist restraints to prevent pulling at her lines. Discussed with patient, her , and nurse at bedside 3:00PM 09/02/2020 need for restraints at this time non violent Suraj Peters MD PGY-3 Neurology Resident [address] [place] [address] documented in this encounter [employer] Phone: 09-03-2020 Hospital Discharge instructions King Monteiro MD - 09/03/2020 Images from the original note were not included. Please check blood pressure twice a day. Please follow-up with your PCP in 1 week. You have displayed signs of hypotension on this admission. You would be best served to having her blood pressure medication regimen controlled more tightly as an outpatient. Please discontinue losartan until seen by her PCP. Please discontinue Plavix. Please continue taking aspirin. Brain Angiogram: What to Expect at Home Your Recovery A brain angiogram (cerebral angiogram) is a test (also called a procedure) that looks for problems with blood vessels and blood flow in the brain. The doctor inserted a thin, flexible tube (catheter) into a blood vessel in your groin. Or the doctor may have put the catheter in a blood vessel in your arm. Then he or she injected a dye into the catheter. The dye flows into the blood vessel. The dye made the blood vessels show up on a video screen. You may have had this test to see if a blood vessel in the brain is bulging, narrowed, or blocked. The test may also be used to check other symptoms, such as unusual headaches, or to check problems found during a different test. You may have a bruise where the catheter was put in, and you may feel sore for a day or two. You can do light activities around the house. But don't do anything strenuous for several days. This care sheet gives you a general idea about how long it will take for you to recover. But each person recovers at a different pace. Follow the steps below to feel better as quickly as possible. How can you care for yourself at home? Activity Do not do strenuous exercise and do not lift, pull, or push anything heavy until your doctor says it is okay. This may be for a day or two. You can walk around the house and do light activity, such as cooking. If the catheter was placed in your groin, try not to walk up stairs for the first couple of days. If the catheter was placed in your arm near your wrist, do not bend your wrist deeply for the first couple of days. Be careful using your hand to get into and out of a chair or bed. If your doctor recommends it, get more exercise. Walking is a good choice. Bit by bit, increase the amount you walk every day. Try for at least 30 minutes on most days of the week. Diet Drink plenty of fluids to help your body flush out the dye. If you have kidney, heart, or liver disease and have to limit fluids, talk with your doctor before you increase the amount of fluids you drink. Keep eating a heart-healthy diet that has lots of fruits, vegetables, and whole grains. If you need help with your diet, talk to your doctor. You also may want to talk to a dietitian. This expert can help you to learn about healthy foods and plan meals. Medicines Your doctor will tell you if and when you can restart your medicines. He or she will also give you instructions about taking any new medicines. If you take aspirin or some other blood thinner, ask your doctor if and when to start taking it again. Make sure that you understand exactly what your doctor wants you to do. Be safe with medicines. Read and follow all instructions on the label. ? If the doctor gave you a prescription medicine for pain, take it as prescribed. ? If you are not taking a prescription pain medicine, ask your doctor if you can take an grrd-cis-hzneohx medicine. Care of the catheter site For the first 3 days, keep a bandage over the spot where the catheter was put in. Put ice or a cold pack on the area for 10 to 20 minutes at a time. Try to do this every 1 to 2 hours for the next 3 days (when you are awake) or until the swelling goes down. Put a thin cloth between the ice and your skin. You may shower 24 to 48 hours after the procedure, if your doctor okays it. Pat the incision dry. Do not soak the catheter site until it is healed. Don't take a bath for 1 week, or until your doctor tells you it is okay. Watch for bleeding from the site. A small amount of blood (up to the size of a quarter) on the bandage can be normal. If you are bleeding, lie down and press on the area for 15 minutes to try to make it stop. If the bleeding does not stop, call your doctor or seek immediate medical care. Follow-up care is a eason part of your treatment and safety. Be sure to make and go to all appointments, and call your doctor if you are having problems. It's also a good idea to know your test results and keep a list of the medicines you take. When should you call for help? Call 911 anytime you think you may need emergency care. For example, call if: You passed out (lost consciousness). You have severe trouble breathing. You have sudden chest pain and shortness of breath, or you cough up blood. You have symptoms of a stroke. These may include: ? Sudden numbness, tingling, weakness, or loss of movement in your face, arm, or leg, especially on only one side of your body. ? Sudden vision changes. ? Sudden trouble speaking. ? Sudden confusion or trouble understanding simple statements. ? Sudden problems with walking or balance. ? A sudden, severe headache that is different from past headaches. Call your doctor now or seek immediate medical care if: You are bleeding from the area where the catheter was put in your artery. You have a fast-growing, painful lump at the catheter site. You have symptoms of infection, such as: ? Increased pain, swelling, warmth, or redness. ? Red streaks leading from the area. ? Pus draining from the area. ? A fever. Your leg, arm, or hand is painful, looks blue, or feels cold, numb, or tingly. Watch closely for any changes in your health, and be sure to contact your doctor if: You are not getting better as expected. Where can you learn more? Go to [email or web address] [email or web address].[email or web address] and sign in to your Optony account. Enter O249 in the Search Health Information box to learn more about Brain Angiogram: What to Expect at Home. If you do not have an account, please click on the Sign Up Now link. Current as of: December 13, 2019 Content Version: 12. Bazaarvoice. Care instructions adapted under license by [employer]. If you have questions about a medical condition or this instruction, always ask your healthcare professional. [employer] disclaims any warranty or liability for your use of this information. Learning About Thrombolytic Treatment for Stroke What is thrombolytic treatment? Thrombolytics are medicines that dissolve blood clots. Most strokes are caused by a blood clot. This kind of stroke is called an ischemic (say oei-MOY-odpz ) stroke. For an ischemic stroke, this medicine can dissolve the clot quickly and help blood to flow in a normal way again. This can help limit damage to the brain. The medicine is given through a vein in your hand or arm. It travels through the bloodstream to the clot. This treatment is most often done in the hospital. Doctors try to give the medicine within 3 hours after stroke symptoms start. Some people may be helped if they are able to get this medicine within 4 hours of their first symptoms. An example of this medicine is called TPA (tissue plasminogen activator). How does thrombolytic treatment help during a stroke? When a blood clot moves to a blood vessel in the brain, it blocks blood flow to that area and causes a stroke. Without blood and the oxygen it carries, that part of the brain starts to . If blood supply isn't restored, permanent damage usually occurs. The body parts controlled by those damaged cells can't work, or function, as they should. This loss of function may be mild or severe. It may be short-term or lifelong. Thrombolytic treatment can improve recovery from a stroke. Doctors try to give it as soon as possible after the stroke happens. It can limit brain damage from a stroke by dissolving the blood clot. Without medicine to dissolve it, a blood clot in your brain is more likely to cause serious brain damage. In general, the less damage there is to the brain tissue, the less disability a stroke causes. And with less damage to brain tissue, you are more likely to recover from the stroke. No treatment can guarantee a full recovery from a stroke. But this medicine does improve your chances of having less or no disability after a stroke. What are the risks of thrombolytic treatment? The main risk of thrombolytic treatment is that it can cause serious bleeding in the body. If bleeding happens in the brain, it can cause worse stroke symptoms or even . Doctors are very careful about using this medicine. For example, a brain scan is done before treatment to make sure you have no signs of bleeding. (Thrombolytic treatment would make any bleeding worse.) And after treatment, you are closely watched for some time to make sure you have no internal bleeding. Is there another treatment choice? When your doctor tells you that thrombolytic treatment is a choice for you, it's because he or she believes that it offers you the best chance of recovery from stroke. But because this medicine also has risks, it is up to you to choose it or not. Based on your condition, your doctor will explain what other choices you have for treatment. They may include other medicines that stop the clot from getting bigger. With or without thrombolytic treatment, you will have care to help you get better. And you'll have medicine to prevent blood clots and control symptoms. Having a stroke can make it hard to make quick and complex decisions. Feeling afraid or anxious can make it even harder to think clearly. Your hospital staff understands this. They will explain your choices and answer your questions. And they will help you decide about your treatment. Follow-up care is a eason part of your treatment and safety. Be sure to make and go to all appointments, and call your doctor if you are having problems. It's also a good idea to know your test results and keep a list of the medicines you take. Where can you learn more? Go to [email or web address] and sign in to your Optony account. Enter E575 in the Search Health Information box to learn more about Learning About Thrombolytic Treatment for Stroke. If you do not have an account, please click on the Sign Up Now link. Current as of: October 09, 2019 Content Version: 12.9 Bazaarvoice. Care instructions adapted under license by [employer]. If you have questions about a medical condition or this instruction, always ask your healthcare professional. [employer] disclaims any warranty or liability for your use of this information. documented in this encounter [employer] Work Phone: 09-03-2020 Hospital Discharge instructions Chandrika Duran RN - 09/03/2020 Images from the original note were not included. Brain Angiogram: What to Expect at Home Your Recovery A brain angiogram (cerebral angiogram) is a test (also called a procedure) that looks for problems with blood vessels and blood flow in the brain. The doctor inserted a thin, flexible tube (catheter) into a blood vessel in your groin. Or the doctor may have put the catheter in a blood vessel in your arm. Then he or she injected a dye into the catheter. The dye flows into the blood vessel. The dye made the blood vessels show up on a video screen. You may have had this test to see if a blood vessel in the brain is bulging, narrowed, or blocked. The test may also be used to check other symptoms, such as unusual headaches, or to check problems found during a different test. You may have a bruise where the catheter was put in, and you may feel sore for a day or two. You can do light activities around the house. But don't do anything strenuous for several days. This care sheet gives you a general idea about how long it will take for you to recover. But each person recovers at a different pace. Follow the steps below to feel better as quickly as possible. How can you care for yourself at home? Activity Do not do strenuous exercise and do not lift, pull, or push anything heavy until your doctor says it is okay. This may be for a day or two. You can walk around the house and do light activity, such as cooking. If the catheter was placed in your groin, try not to walk up stairs for the first couple of days. If the catheter was placed in your arm near your wrist, do not bend your wrist deeply for the first couple of days. Be careful using your hand to get into and out of a chair or bed. If your doctor recommends it, get more exercise. Walking is a good choice. Bit by bit, increase the amount you walk every day. Try for at least 30 minutes on most days of the week. Diet Drink plenty of fluids to help your body flush out the dye. If you have kidney, heart, or liver disease and have to limit fluids, talk with your doctor before you increase the amount of fluids you drink. Keep eating a heart-healthy diet that has lots of fruits, vegetables, and whole grains. If you need help with your diet, talk to your doctor. You also may want to talk to a dietitian. This expert can help you to learn about healthy foods and plan meals. Medicines Your doctor will tell you if and when you can restart your medicines. He or she will also give you instructions about taking any new medicines. If you take aspirin or some other blood thinner, ask your doctor if and when to start taking it again. Make sure that you understand exactly what your doctor wants you to do. Be safe with medicines. Read and follow all instructions on the label. ? If the doctor gave you a prescription medicine for pain, take it as prescribed. ? If you are not taking a prescription pain medicine, ask your doctor if you can take an aasy-imy-spdrcpt medicine. Care of the catheter site For the first 3 days, keep a bandage over the spot where the catheter was put in. Put ice or a cold pack on the area for 10 to 20 minutes at a time. Try to do this every 1 to 2 hours for the next 3 days (when you are awake) or until the swelling goes down. Put a thin cloth between the ice and your skin. You may shower 24 to 48 hours after the procedure, if your doctor okays it. Pat the incision dry. Do not soak the catheter site until it is healed. Don't take a bath for 1 week, or until your doctor tells you it is okay. Watch for bleeding from the site. A small amount of blood (up to the size of a quarter) on the bandage can be normal. If you are bleeding, lie down and press on the area for 15 minutes to try to make it stop. If the bleeding does not stop, call your doctor or seek immediate medical care. Follow-up care is a eason part of your treatment and safety. Be sure to make and go to all appointments, and call your doctor if you are having problems. It's also a good idea to know your test results and keep a list of the medicines you take. When should you call for help? Call 911 anytime you think you may need emergency care. For example, call if: You passed out (lost consciousness). You have severe trouble breathing. You have sudden chest pain and shortness of breath, or you cough up blood. You have symptoms of a stroke. These may include: ? Sudden numbness, tingling, weakness, or loss of movement in your face, arm, or leg, especially on only one side of your body. ? Sudden vision changes. ? Sudden trouble speaking. ? Sudden confusion or trouble understanding simple statements. ? Sudden problems with walking or balance. ? A sudden, severe headache that is different from past headaches. Call your doctor now or seek immediate medical care if: You are bleeding from the area where the catheter was put in your artery. You have a fast-growing, painful lump at the catheter site. You have symptoms of infection, such as: ? Increased pain, swelling, warmth, or redness. ? Red streaks leading from the area. ? Pus draining from the area. ? A fever. Your leg, arm, or hand is painful, looks blue, or feels cold, numb, or tingly. Watch closely for any changes in your health, and be sure to contact your doctor if: You are not getting better as expected. Where can you learn more? Go to [email or web address] and sign in to your Optony account. Enter O249 in the Search Health Information box to learn more about Brain Angiogram: What to Expect at Home. If you do not have an account, please click on the Sign Up Now link. Current as of: December 13, 2019 Content Version: 01.16 [employer]azaarvoice. Care instructions adapted under license by [employer]. If you have questions about a medical condition or this instruction, always ask your healthcare professional. [employer] disclaims any warranty or liability for your use of this information. Learning About Thrombolytic Treatment for Stroke What is thrombolytic treatment? Thrombolytics are medicines that dissolve blood clots. Most strokes are caused by a blood clot. This kind of stroke is called an ischemic (say vix-KBM-egzr ) stroke. For an ischemic stroke, this medicine can dissolve the clot quickly and help blood to flow in a normal way again. This can help limit damage to the brain. The medicine is given through a vein in your hand or arm. It travels through the bloodstream to the clot. This treatment is most often done in the hospital. Doctors try to give the medicine within 3 hours after stroke symptoms start. Some people may be helped if they are able to get this medicine within 4 hours of their first symptoms. An example of this medicine is called TPA (tissue plasminogen activator). How does thrombolytic treatment help during a stroke? When a blood clot moves to a blood vessel in the brain, it blocks blood flow to that area and causes a stroke. Without blood and the oxygen it carries, that part of the brain starts to . If blood supply isn't restored, permanent damage usually occurs. The body parts controlled by those damaged cells can't work, or function, as they should. This loss of function may be mild or severe. It may be short-term or lifelong. Thrombolytic treatment can improve recovery from a stroke. Doctors try to give it as soon as possible after the stroke happens. It can limit brain damage from a stroke by dissolving the blood clot. Without medicine to dissolve it, a blood clot in your brain is more likely to cause serious brain damage. In general, the less damage there is to the brain tissue, the less disability a stroke causes. And with less damage to brain tissue, you are more likely to recover from the stroke. No treatment can guarantee a full recovery from a stroke. But this medicine does improve your chances of having less or no disability after a stroke. What are the risks of thrombolytic treatment? The main risk of thrombolytic treatment is that it can cause serious bleeding in the body. If bleeding happens in the brain, it can cause worse stroke symptoms or even . Doctors are very careful about using this medicine. For example, a brain scan is done before treatment to make sure you have no signs of bleeding. (Thrombolytic treatment would make any bleeding worse.) And after treatment, you are closely watched for some time to make sure you have no internal bleeding. Is there another treatment choice? When your doctor tells you that thrombolytic treatment is a choice for you, it's because he or she believes that it offers you the best chance of recovery from stroke. But because this medicine also has risks, it is up to you to choose it or not. Based on your condition, your doctor will explain what other choices you have for treatment. They may include other medicines that stop the clot from getting bigger. With or without thrombolytic treatment, you will have care to help you get better. And you'll have medicine to prevent blood clots and control symptoms. Having a stroke can make it hard to make quick and complex decisions. Feeling afraid or anxious can make it even harder to think clearly. Your hospital staff understands this. They will explain your choices and answer your questions. And they will help you decide about your treatment. Follow-up care is a eason part of your treatment and safety. Be sure to make and go to all appointments, and call your doctor if you are having problems. It's also a good idea to know your test results and keep a list of the medicines you take. Where can you learn more? Go to [email or web address] and sign in to your Optony account. Enter E575 in the Search Health Information box to learn more about Learning About Thrombolytic Treatment for Stroke. If you do not have an account, please click on the Sign Up Now link. Current as of: October 09, 2019 Content Version: 12.9 [employer]arvoice. Care instructions adapted under license by [employer]. If you have questions about a medical condition or this instruction, always ask your healthcare professional. [employer]ar[employer] disclaims any warranty or liability for your use of this information. documented in this encounter [facility] Phone: 09-02-2020 History of Present illness Narrative Patient admitted, consent signed and questions answered. Patient ready for procedure. Call light to reach with side rails up 2 of 2.Family at bedside with patient. documented in this encounter [facility] Phone: Evaluation note Diagnosis Nausea vomiting and diarrhea- Primary Nausea with vomiting Other complicated headache syndrome Dehydration documented in this encounter [facility] Phone: evallqzjof note* Diagnosis Altered mental status, unspecified altered mental status type- Primary Stroke-like symptoms Other symptoms involving nervous and musculoskeletal systems Received intravenous tissue plasminogen activator (tPA) in emergency department documented in this encounter [facility] Phone: evaluation note* Diagnosis Cerebral aneurysm Cerebral aneurysm, nonruptured TGA (transient global amnesia) Transient global amnesia documented in this encounter [facility] Phone: evalfwlwtr note* Diagnosis Left leg swelling documented in this encounter [facility] Phone: evalvnownz note* Diagnosis Dysarthria- Primary Acute cystitis without hematuria Acute cystitis documented in this encounter [facility] Phone: evaluation note* Diagnosis Breast cancer screening by mammogram documented in this encounter [facility] Phone: evaluation note* Diagnosis Pain Generalized pain Swelling Edema documented in this encounter [facility] Phone: evaluation note* Diagnosis Elevated blood pressure reading- Primary Elevated blood pressure reading without diagnosis of hypertension documented in this encounter [facility] Phone: evaluation note* Diagnosis Strain of lumbar region, initial encounter- [facility] Somatic dysfunction of lumbar region Nonallopathic lesion of lumbar region, not elsewhere classified Lumbar radiculopathy Thoracic or lumbosacral neuritis or radiculitis, unspecified documented in this encounter [facility] Discharge instructions* Attachments The following attachments cannot be sent through Care Everywhere. * Dehydration (Qatari) * Nausea and Vomiting (Qatari) documented in this encounter[facility] Work Phone: Reason for Referral Status Reason Specialty Diagnoses / Procedures Referre d By Contact Referred To Contact Open EKG Diagnoses TIA (transient ischemic attack) Procedures Retirement Continuous Cardiac Event Monitor Eunice Guerra APRN - [employer]INE [employer] TECHNICIAN [address] [facility] [place] [address] Mthz Ekg [address] [place] [address] Status Reason Specialty Diagnoses / Procedures Referre d By Contact Referred To Contact Closed Radiology Diagnoses Cerebral aneurysm Procedures IR ANGIOGRAM CAROTID CEREBRAL BILATERAL Kristina Lomax MD [address] [facility] [address] [place] [address] Specialty Diagnoses / Procedures Referred By Contac t Referred To Contact Radiology Diagnoses Left leg swelling Procedures VL DUP LOWER EXTREMITY VENOUS LEFT Alissa Marx MD [address] [facility] [place] [address] Referral ID Status Reason Start Date Expiration Date Visits Re quested Visits Authorized [id number] Open 03/03/2021 03/03/2022 1 1 Specialty Diagnoses / Procedures Referred By Contac t Referred To Contact Diagnoses Dysarthria Procedures Echo 2d w doppler w color w contrast Eliecer Burris MD [address] [place] [address] Referral ID Status Reason Start Date Expiration Date Visits Re quested Visits Authorized [id number] Open 10/06/2021 10/06/2022 1 1 Specialty Diagnoses / Procedures Referred By Contac t Referred To Contact Radiology Diagnoses Breast cancer screening by mammogram Procedures ALMA ESME DIGITAL SCREEN SELF REFERRAL W OR WO CAD BILATERAL Molina Ramos, DO [address] [place] [address] Referral ID Status Reason Start Date Expiration Date Visits Re quested Visits Authorized [id number] Closed 10/10/2021 10/10/2022 1 1 Specialty Diagnoses / Procedures Referred By Adrián mar Referred To Contact Radiology Diagnoses Somatic dysfunction of lumbar region Lumbar radiculopathy Procedures CT LUMBAR SPINE WO CONTRAST Sharath Garcia DC [address] [place] [address] Referral ID Status Reason Start Date Expiration Date V isits Requested Visits Authorized [id number] Not Required - RTA 02/15/2024 02/14/2025 1 1 Hospital Course * Eunice Guerra, JUNIOR ADMINISTRATIVE ASSISTANT - [employer]INE [employer] TECHNICIAN - 04/19/2020 12:00 PM EST Discharge Summary Ever Palmer : 1940 Admit date: 04/17/2020 Discharge date: 04/19/2020 Admitting Physician: Marcelino Clifford MD Discharge Diagnoses: Principal Problem: TIA (transient ischemic attack) Resolved Problems: * No resolved hospital problems. * Updated discharge summary since discharge was canceled left evening Hospital Course: Ever Palmer is a 79 y.o. female admitted with TIA. She presented to the emergency room due to initial expressive aphasia. Patient reported yesterday afternoon she developed difficulty speaking. She stated that it lasted for about an hour when she arrived to the emergency roomand was able to speak again. She explained that this had never happened to her before. She said initially she noticed that she was trying to text at work but was unable to to complete that task. She explained that she had been under a lot of stress as she has a son that lives in her house and she is currently trying to evict. She stated that she had been to her primary care provider this week andactually had an echocardiogram completed in the office yesterday due to abnormal blood work that she believed was the BNP. She reported intermittent ongoing shortness of breath for quite some time. She denied lateral weakness or paresthesias. She denied any further difficulties. She was admitted for observation and cardiology was consulted. Today neurologically she is all intact with some mild inc oordination with her left hand. She did complete a bubble test echocardiogram which was normal yesterday. She will be discharged home with a Cam monitor today. She will follow-up with Dr. Marx. Patient was discharged yesterday however the discharge got canceled last evening. Today the patient underwent a ALEKSANDRA that was normal. Dr. Marx started her on some losartan as well as Norvasc. She will be discharged home today Consultants: Dr. Marx, cardiology Procedures: Echocardiogram with bubble study, ALEKSANDRA Complications: none Discharge Condition: fair Exam: CONSTITUTIONAL: awake, alert, cooperative, no apparent distress, and appears stated age EYES: Lids and lashes normal, pupils equal, round and reactive to light, extra ocular muscles intact, sclera clear, conjunctiva normal ENT: Normocephalic, without obvious abnormality, atraumatic, sinuses nontender on palpation, external ears without lesions, oral pharynx with moist mucus membranes, tonsils without erythema or exudates, gums normal and good dentition. NECK: Supple, symmetrical, trachea midline, no adenopathy, thyroid symmetric, not enlarged and no tenderness, skin normal HEMATOLOGIC/LYMPHATICS: no cervical lymphadenopathy and no supraclavicular lymphadenopathy LUNGS: No increased work of breathing, good air exchange, clear to auscultation bilaterally, no crackles or wheezing CARDIOVASCULAR: Normal apical impulse, regular rate and rhythm, normal S1 and S2, no S3 or S4, and no murmur noted ABDOMEN: No scars, normal bowel sounds, soft, non-distended, non-tender, no masses palpated, no hepatosplenomegally MUSCULOSKELETAL: There is no redness, warmth, or swelling of the joints. Full range of motion noted. Motor strength is 5 out of 5 all extremities bilaterally. Tone is normal. NEUROLOGIC: Mental Status Exam: Level of Alertness: awake Orientation: person, place, time Memory: normal SKIN: no bruising or bleeding, normal skin color, texture, turgor, no redness, warmth, or swelling,no rashes and no lesions EXT: no cyanosis, clubbing or edema present Significant Diagnostic Studies: Lab Results Component Value Date WBC 5.2 04/18/2020 HGB 11.0 (L) 04/18/2020 PLT 192 04/18/2020 Lab Results Component Value Date BUN 22 04/18/2020 CREATININE 0.72 04/18/2020 NA 140 04/18/2020 K 4.2 04/18/2020 CALCIUM 8.9 04/18/2020 CL 107 04/18/2020 CO2 26 04/18/2020 LABGLOM >60 04/18/2020 Lab Results Component Value Date WBCUA None 04/17/2020 RBCUA None 04/17/2020 EPITHUA 0 TO 2 04/17/2020 LEUKOCYTESUR NEGATIVE 04/17/2020 SPECGRAV <1.005 (L) 04/17/2020 GLUCOSEU NEGATIVE 04/17/2020 KETUA NEGATIVE 04/17/2020 PROTEINU NEGATIVE 04/17/2020 HGBUR NEGATIVE 04/17/2020 CASTUA NOT REPORTED 04/17/2020 CRYSTUA NOT REPORTED 04/17/2020 BACTERIA TRACE (A) 04/17/2020 YEAST NOT REPORTED 04/17/2020 2d Echo Ltd Result Date: 04/18/2020 [facility] Transthoracic Echocardiography Report (TTE) Patient Name SPENCER Date of Study 04/18/2020 VIOLA A Date of 1940 Gender Female Age 79 year(s) Race Room Number 0315 Height: 63 inch, 160.02 cm Corporate ID [id number] Weight: 163 pounds, 73.9 kg # Patient [id number] BSA: 1.77 m^2 BMI: 28.87 # kg/m^2 MR # [id number] Communication Spec BayronRylee Interpreting Physician Alissa Marx Fellow Referring Nurse Practitioner Interpreting Referring Physician Alissa Marx Type of Study TTE procedure:2D Echocardiogram, Bubble Study. Procedure Date Date: 04/18/2020 Start: 02:58 PM Study Location: [facility] History / Tech. Comments: TIA, Bubble study PMHX; DM, TIa, HTN Patient Status: Inpatient Contrast Medium: Bubble Study. Height:63 inches Weight: 163 pounds BSA: 1.77 m^2 BMI: 28.87 kg/m^2 BP: 154/64 mmHg CONCLUSIONS Summary Normal left ventricular size and systolic function. No significant wall motion abnormalities were identified. Estimated LV EF >55 %. A saline contrast study was performed and showed no evidence of an interatrial communication. Signature FINDINGS Left Ventricle Normal left ventricular size and systolic function. No significant wall motion abnormalities were identified. Estimated LV EF >55 %. Right Atrium A saline contrast studywas performed and showed no evidence of an interatrial communication. M-mode / 2D Measurements & Calculations: LVIDd:4.07 cm(3.7 - 5.6 cm) Diastolic Volume:67.27 ml LVIDs:3.03 cm(2.2 - 4.0 cm) Systolic Volume:27.88 ml IVSd:0.91 cm(0.6 - 1.1 cm) Aortic Root:3.1 cm(2.0 - 3.7 cm) LVPWd:0.9 cm(0.6 - 1.1 cm) LA Dimension: 3.51 cm(1.9 - 4.0 cm) Fractional Shortenin.55 % AV Cusp Separation: 1.66cm Calculated LVEF (%): 58.56 % Ct Head Wo Contrast Result Date: 04/17/2020 EXAMINATION: CT OF THE HEAD WITHOUT CONTRAST 04/17/2020 3:30 pm TECHNIQUE: CT of the head was performed without the administration of intravenous contrast. Dose modulation, iterative reconstruction, and/or weight based adjustment of the mA/kV was utilized to reduce the radiation dose to as low as reasonably achievable. COMPARISON: CT head October 19, 2012 HISTORY: ORDERING SYSTEM PROVIDED HISTORY: Expressive aphasia TECHNOLOGIST PROVIDED HISTORY: Expressive aphasia Decision Support Exception->Emergency Medical Condition (MA) FINDINGS: BRAIN/VENTRICLES: There is no acute intracranial hemorrhage, mass effect or midline shift. No abnormal extra-axial fluid collection. The kevin- white differentiation is maintained without evidence of an acute infarct. There is no evidence of hydrocephalus.ORBITS: The visualized portion of the orbits demonstrate no acute abnormality. SINUSES: The visualized paranasal sinuses and mastoid air cells demonstrate no acute abnormality. SOFT TISSUES/SKULL: Noacute abnormality of the visualized skull or soft tissues. No acute intracranial abnormality. Results were sent to radiology results communication. Cta Head Neck W Contrast Result Date: 04/17/2020 EXAMINATION: CTA OF THE HEAD AND NECK WITH CONTRAST 04/17/2020 5:04 pm: TECHNIQUE: CTA of the head and neck was performed with the administration of intravenous contrast. Multiplanar reformatted images are provided for review. MIP images are provided for review. Stenosis of the internal carotid arteries measured using NASCET criteria. Dose modulation, iterative reconstruction, and/or weight based adjustment of the mA/kV was utilized to reduce the radiation dose to as low as reasonably achievable. COMPARISON: MRI brain 04/17/2020 HISTORY: ORDERING SYSTEM PROVIDED HISTORY: Expressive aphasia TECHNOLOGIST PROVIDED HISTORY: Expressive aphasia Decision Support Exception->Emergency Medical Condition (MA) FINDINGS: CTA NECK: AORTIC ARCH/ARCH VESSELS: No dissection or arterial injury. No significant stenosis of the brachiocephalic or subclavian arteries. CAROTID ARTERIES: No dissection, arterial injury, or hemodynamically significant stenosis by NASCET criteria. VERTEBRAL ARTERIES: No dissection, arterial injury, or significant stenosis. SOFT TISSUES: The lung apices are clear. No cervical or superior mediastinal lymphadenopathy. The larynx and pharynx are unremarkable. No acute abnormality of the salivary and thyroid glands. BONES: Moderate severe multilevel degenerate change. Anterol isthesis of C4-C5 measuring 3 mm. CTA HEAD: ANTERIOR CIRCULATION: No significant stenosis of the intracranial internal carotid, anterior cerebral, or middle cerebral arteries. 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 Diminutive vertebrobasilar circulation as result. No significant stenosis of the vertebral, basilar, or posterior cerebral arteries. No aneurysm. OTHER: No dural venous sinus thrombosis on this non-dedicated study. BRAIN: No mass effect or midline shift. No extra-axial fluid collection. The kevin-white differentiation is maintained. No large vessel occlusion or hemodynamic stenosis. 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 Mri Brain Wo Contrast Result Date: 04/17/2020 EXAMINATION: MRI OF THE BRAIN WITHOUT CONTRAST 04/17/2020 4:41 pm TECHNIQUE: Multiplanar multisequence MRI of the brain was performed without the administration of intravenous contrast. COMPARISON: Noncontrast CT head from earlier today HISTORY: ORDERING SYSTEM PROVIDED HISTORY: TIA TECHNOLOGIST PROV IDED HISTORY: TIA Decision Support Exception->Emergency Medical Condition (MA) FINDINGS: INTRACRANIAL STRUCTURES/VENTRICLES: There is minimal parenchymal volume loss. There are a few scattered foci of T2/FLAIR hyperintensity in the periventricular and subcortical white matter, likely related to minimal chronic microvascular disease. There is no acute infarct. No mass effect or midline shift. No acute intracranial hemorrhage. There is no hydrocephalus. The sellar/suprasellar regions appear unremarkable. The normal signal voids within the major intracranial vessels appear maintained. ORBITS:The visualized portion of the orbits demonstrate no acute abnormality. SINUSES: There is scattered m inimal mucosal thickening in the paranasal sinuses. The bilateral mastoid air cells are well aerated. BONES/SOFT TISSUES: The bone marrow signal intensity appears normal. The soft tissues demonstrateno acute abnormality. No acute intracranial abnormality. Minimal parenchymal volume loss. Minimal chronic microvascular disease. Assessment and Plan: Patient Active Problem List Diagnosis Date Noted TIA (transient ischemic attack) 04/17/2020 Discharge Medications: Ever Palmer Home Medication Instructions ANITA:[id number] Printed on:04/19/20 1209 Medication Information amLODIPine (NORVASC) 5 MG tablet Take 1 tablet by mouth daily aspirin 81 MG tablet Take 81 mg by mouth daily atorvastatin (LIPITOR) 40 MG tablet Take 1 tablet by mouth daily baclofen (LIORESAL) 10 MG tablet Take 10 mg by mouth 3 times daily Budesonide (PULMICORT IN) Inhale into the lungs busPIRone (BUSPAR) 10 MG tablet Take 10 mg by mouth 2 times daily calcium carbonate 600 MG TABS tablet Take 1 tablet by mouth daily clopidogrel (PLAVIX) 75 MG tablet Take 1 tablet by mouth daily For 28 days. Cyanocobalamin (VITAMIN B-12 PO) Take by mouth gabapentin (NEURONTIN) 400 MG capsule Take 400 mg by mouth. L-Lysine 1000 MG TABS Take 1,000 mg by mouth daily lactulose (CEPHULAC) 10 g packet Take 10 g by mouth 2 times daily losartan (COZAAR) 25 MG tablet Take 1 tablet by mouth daily metFORMIN (GLUCOPHAGE) 500 MG tablet Take 500 mg by mouth daily (with breakfast) Misc Natural Products (OSTEO BI-FLEX/5-LOXIN ADVANCED PO) Take by mouth Montelukast Sodium (SINGULAIR PO) Take by mouth Potassium 95 MG TABS Take 1 tablet by mouth daily potassium chloride (KLOR-CON) 8 MEQ extended release tablet Take 99 mEq by mouth daily Patient Instructions: Activity: activity as tolerated Diet: cardiac diet Wound Care: none needed Other: Cam monitor Disposition: Discharge to Home Follow up: Patient will be followed by Molina Ramos DO in 1-2 weeks, Dr. Marx 2 weeks CORE MEASURES on Discharge (if applicable) ELIZABETH/ARB in CHF: NA Statin in HI: NA ASA in HI: NA Statin in CVA: NA Antiplatelet in CVA: NA Total time spent on discharge services: 35 minutes Including the following activities: Evaluation and Management of patient Discussion with patient and/or surrogate about current care plan Coordination with Case Management and/or Flooring Grader Coordination of care with Consultants (if applicable) Coordination of care with Receiving Facility Physician (if applicable) Completion of DME forms (if applicable) Preparation of Discharge Summary Preparation of Medication Reconciliation Preparation of Discharge Prescriptions Signed: Eunice Guerra APRN, WET PROCESS MILLER HEAD-C 04/19/2020, 12:09 PM Associated attestation - Marcelino Clifford MD - 04/19/2020 12:57 PM EST Marcelino Clifford M.D. Discharge Summary Attestation 04/19/20 I personally evaluated and examined the patient [id number] in conjunction with the PA/WET PROCESS MILLER HEAD and agree with the management and dispostition of the patient. Please see the PA/WET PROCESS MILLER HEAD's note for full details.My eason findings are: Admission date: 04/17/2020 Discharge date: 04/19/2020 Principle Diagnosis: TIA (transient ischemic attack) Exam: GEN: Awake, alert and oriented x3. EYES: EOMI, pupils equal NECK: Supple. No lymphadenopathy. No carotid bruit CVS: regular rate and rhythm, no audible murmur PULM: CTA, no wheezes, rales or rhonchi, no acute respiratory distress ABD: Bowels sounds normal. Abdomen is soft. No distention. no tenderness to palpation. EXT: no edema bilaterally . No calf tenderness. NEURO: Moves all extremities. Motor and sensory are grossly intact SKIN: No rashes. No skin lesions. Disposition: Discharge to Home Follow Up: Follow up with Molina Ramos DO in 1-2 weeks Total time spent on discharge services: 35 minutes Including the following activities: Evaluation and Management of patient Discussion with patient and/or surrogate about current care plan Coordination with Case Management and/or Flooring Grader Coordination of care with Consultants (if applicable) Coordination of care with Receiving Facility Physician (if applicable) Completion of DME forms (if applicable) Preparation of Discharge Summary Preparation of Medication Reconciliation Preparation of Discharge Prescriptions Marcelino Clifford M.D. 04/19/2020 12:57 PM * Eunice Guerra, JUNIOR ADMINISTRATIVE ASSISTANT - [employer] TECHNICIAN - 04/18/2020 6:33 PM EST Discharge Summary Ever Palmer : 1940 Admit date: 04/17/2020 Discharge date: 04/18/2020 Admitting Physician: Marcelino Clifford MD Discharge Diagnoses: Principal Problem: TIA (transient ischemic attack) Resolved Problems: * No resolved hospital problems. * Hospital Course: Ever Palmer is a 79 y.o. female admitted with TIA. She presented to the emergency room due to initial expressive aphasia. Patient reported yesterday afternoon she developed difficulty speaking. She stated that it lasted for about an hour when she arrived to the emergency roomand was able to speak again. She explained that this had never happened to her before. She said initially she noticed that she was trying to text at work but was unable to to complete that task. She explained that she had been under a lot of stress as she has a son that lives in her house and she is currently trying to evict. She stated that she had been to her primary care provider this week andactually had an echocardiogram completed in the office yesterday due to abnormal blood work that she believed was the BNP. She reported intermittent ongoing shortness of breath for quite some time. She denied lateral weakness or paresthesias. She denied any further difficulties. She was admitted for observation and cardiology was consulted. Today neurologically she is all intact with some mild inc oordination with her left hand. She did complete a bubble test echocardiogram which was normal today. She will be discharged home with a Cam monitor. She will be scheduled for a ALEKSANDRA as an outpatient procedure with cardiology. She will follow-up with Dr. Marx. Consultants: Dr. Marx, cardiology Procedures: Echocardiogram with bubble study Complications: none Discharge Condition: fair Exam: CONSTITUTIONAL: awake, alert, cooperative, no apparent distress, and appears stated age EYES: Lids and lashes normal, pupils equal, round and reactive to light, extra ocular muscles intact, sclera clear, conjunctiva normal ENT: Normocephalic, without obvious abnormality, atraumatic, sinuses nontender on palpation, external ears without lesions, oral pharynx with moist mucus membranes, tonsils without erythema or exudates, gums normal and good dentition. NECK: Supple, symmetrical, trachea midline, no adenopathy, thyroid symmetric, not enlarged and no tenderness, skin normal HEMATOLOGIC/LYMPHATICS: no cervical lymphadenopathy and no supraclavicular lymphadenopathy LUNGS: No increased work of breathing, good air exchange, clear to auscultation bilaterally, no crackles or wheezing CARDIOVASCULAR: Normal apical impulse, regular rate and rhythm, normal S1 and S2, no S3 or S4, and no murmur noted ABDOMEN: No scars, normal bowel sounds, soft, non-distended, non-tender, no masses palpated, no hepatosplenomegally MUSCULOSKELETAL: There is no redness, warmth, or swelling of the joints. Full range of motion noted. Motor strength is 5 out of 5 all extremities bilaterally. Tone is normal. NEUROLOGIC: Mental Status Exam: Level of Alertness: awake Orientation: person, place, time Memory: normal SKIN: no bruising or bleeding, normal skin color, texture, turgor, no redness, warmth, or swelling,no rashes and no lesions EXT: no cyanosis, clubbing or edema present Significant Diagnostic Studies: Lab Results Component Value Date WBC 5.2 04/18/2020 HGB 11.0 (L) 04/18/2020 PLT 192 04/18/2020 Lab Results Component Value Date BUN 22 04/18/2020 CREATININE 0.72 04/18/2020 NA 140 04/18/2020 K 4.2 04/18/2020 CALCIUM 8.9 04/18/2020 CL 107 04/18/2020 CO2 26 04/18/2020 LABGLOM >60 04/18/2020 Lab Results Component Value Date WBCUA None 04/17/2020 RBCUA None 04/17/2020 EPITHUA 0 TO 2 04/17/2020 LEUKOCYTESUR NEGATIVE 04/17/2020 SPECGRAV <1.005 (L) 04/17/2020 GLUCOSEU NEGATIVE 04/17/2020 KETUA NEGATIVE 04/17/2020 PROTEINU NEGATIVE 04/17/2020 HGBUR NEGATIVE 04/17/2020 CASTUA NOT REPORTED 04/17/2020 CRYSTUA NOT REPORTED 04/17/2020 BACTERIA TRACE (A) 04/17/2020 YEAST NOT REPORTED 04/17/2020 2d Echo Ltd Result Date: 04/18/2020 [facility] Transthoracic Echocardiography Report (TTE) Patient Name SPENCER Date of Study 04/18/2020 EVER A Date of 1940 Gender Female Age 79 year(s) Race Room Number 0315 Height: 63 inch, 160.02 cm Corporate ID [id number] Weight: 163 pounds, 73.9 kg # Patient [id number] BSA: 1.77 m^2 BMI: 28.87 # kg/m^2 MR # [id number] Communication Spec Rylee Verma Interpreting Physician Alissa Marx Fellow Referring Nurse Practitioner Interpreting Referring Physician Alissa Marx Fellow Type of Study TTE procedure:2D Echocardiogram, Bubble Study. Procedure Date Date: 04/18/2020 Start: 02:58 PM Study Location: [facility] History / Tech. Comments: TIA, Bubble study PMHX; DM, TIa, HTN Patient Status: Inpatient Contrast Medium: Bubble Study. Height:63 inches Weight: 163 pounds BSA: 1.77 m^2 BMI: 28.87 kg/m^2 BP: 154/64 mmHg CONCLUSIONS Summary Normal left ventricular size and systolic function. No significant wall motion abnormalities were identified. Estimated LV EF >55 %. A saline contrast study was performed and showed no evidence of an interatrial communication. Signature FINDINGS Left Ventricle Normal left ventricular size and systolic function. No significant wall motion abnormalities were identified. Estimated LV EF >55 %. Right Atrium A saline contrast studywas performed and showed no evidence of an interatrial communication. M-mode / 2D Measurements & Calculations: LVIDd:4.07 cm(3.7 - 5.6 cm) Diastolic Volume:67.27 ml LVIDs:3.03 cm(2.2 - 4.0 cm) Systolic Volume:27.88 ml IVSd:0.91 cm(0.6 - 1.1 cm) Aortic Root:3.1 cm(2.0 - 3.7 cm) LVPWd:0.9 cm(0.6 - 1.1 cm) LA Dimension: 3.51 cm(1.9 - 4.0 cm) Fractional Shortenin.55 % AV Cusp Separation: 1.66cm Calculated LVEF (%): 58.56 % Ct Head Wo Contrast Result Date: 04/17/2020 EXAMINATION: CT OF THE HEAD WITHOUT CONTRAST 04/17/2020 3:30 pm TECHNIQUE: CT of the head was performed without the administration of intravenous contrast. Dose modulation, iterative reconstruction, and/or weight based adjustment of the mA/kV was utilized to reduce the radiation dose to as low as reasonably achievable. COMPARISON: CT head October 19, 2012 HISTORY: ORDERING SYSTEM PROVIDED HISTORY: Expressive aphasia TECHNOLOGIST PROVIDED HISTORY: Expressive aphasia Decision Support Exception->Emergency Medical Condition (MA) FINDINGS: BRAIN/VENTRICLES: There is no acute intracranial hemorrhage, mass effect or midline shift. No abnormal extra-axial fluid collection. The kevin- white differentiation is maintained without evidence of an acute infarct. There is no evidence of hydrocephalus.ORBITS: The visualized portion of the orbits demonstrate no acute abnormality. SINUSES: The visualized paranasal sinuses and mastoid air cells demonstrate no acute abnormality. SOFT TISSUES/SKULL: Noacute abnormality of the visualized skull or soft tissues. No acute intracranial abnormality. Results were sent to radiology results communication. Cta Head Neck W Contrast Result Date: 04/17/2020 EXAMINATION: CTA OF THE HEAD AND NECK WITH CONTRAST 04/17/2020 5:04 pm: TECHNIQUE: CTA of the head and neck was performed with the administration of intravenous contrast. Multiplanar reformatted images are provided for review. MIP images are provided for review. Stenosis of the internal carotid arteries measured using NASCET criteria. Dose modulation, iterative reconstruction, and/or weight based adjustment of the mA/kV was utilized to reduce the radiation dose to as low as reasonably achievable. COMPARISON: MRI brain 04/17/2020 HISTORY: ORDERING SYSTEM PROVIDED HISTORY: Expressive aphasia TECHNOLOGIST PROVIDED HISTORY: Expressive aphasia Decision Support Exception->Emergency Medical Condition (MA) FINDINGS: CTA NECK: AORTIC ARCH/ARCH VESSELS: No dissection or arterial injury. No significant stenosis of the brachiocephalic or subclavian arteries. CAROTID ARTERIES: No dissection, arterial injury, or hemodynamically significant stenosis by NASCET criteria. VERTEBRAL ARTERIES: No dissection, arterial injury, or significant stenosis. SOFT TISSUES: The lung apices are clear. No cervical or superior mediastinal lymphadenopathy. The larynx and pharynx are unremarkable. No acute abnormality of the salivary and thyroid glands. BONES: Moderate severe multilevel degenerate change. Anterol isthesis of C4-C5 measuring 3 mm. CTA HEAD: ANTERIOR CIRCULATION: No significant stenosis of the intracranial internal carotid, anterior cerebral, or middle cerebral arteries. 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 Diminutive vertebrobasilar circulation as result. No significant stenosis of the vertebral, basilar, or posterior cerebral arteries. No aneurysm. OTHER: No dural venous sinus thrombosis on this non-dedicated study. BRAIN: No mass effect or midline shift. No extra-axial fluid collection. The kevin-white differentiation is maintained. No large vessel occlusion or hemodynamic stenosis. 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 Mri Brain Wo Contrast Result Date: 04/17/2020 EXAMINATION: MRI OF THE BRAIN WITHOUT CONTRAST 04/17/2020 4:41 pm TECHNIQUE: Multiplanar multisequence MRI of the brain was performed without the administration of intravenous contrast. COMPARISON: Noncontrast CT head from earlier today HISTORY: ORDERING SYSTEM PROVIDED HISTORY: TIA TECHNOLOGIST PROV IDED HISTORY: TIA Decision Support Exception->Emergency Medical Condition (MA) FINDINGS: INTRACRANIAL STRUCTURES/VENTRICLES: There is minimal parenchymal volume loss. There are a few scattered foci of T2/FLAIR hyperintensity in the periventricular and subcortical white matter, likely related to minimal chronic microvascular disease. There is no acute infarct. No mass effect or midline shift. No acute intracranial hemorrhage. There is no hydrocephalus. The sellar/suprasellar regions appear unremarkable. The normal signal voids within the major intracranial vessels appear maintained. ORBITS:The visualized portion of the orbits demonstrate no acute abnormality. SINUSES: There is scattered m inimal mucosal thickening in the paranasal sinuses. The bilateral mastoid air cells are well aerated. BONES/SOFT TISSUES: The bone marrow signal intensity appears normal. The soft tissues demonstrateno acute abnormality. No acute intracranial abnormality. Minimal parenchymal volume loss. Minimal chronic microvascular disease. Assessment and Plan: Patient Active Problem List Diagnosis Date Noted TIA (transient ischemic attack) 04/17/2020 Discharge Medications: Ever Palmer Home Medication Instructions ANITA:[id number] Printed on:04/18/201832 Medication Information aspirin 81 MG tablet Take 81 mg by mouth daily atorvastatin (LIPITOR) 40 MG tablet Take 1 tablet by mouth daily baclofen (LIORESAL) 10 MG tablet Take 10 mg by mouth 3 times daily Budesonide (PULMICORT IN) Inhale into the lungs busPIRone (BUSPAR) 10 MG tablet Take 10 mg by mouth 2 times daily calcium carbonate 600 MG TABS tablet Take 1 tablet by mouth daily clopidogrel (PLAVIX) 75 MG tablet Take 1 tablet by mouth daily For 28 days. Cyanocobalamin (VITAMIN B-12 PO) Take by mouth gabapentin (NEURONTIN) 400 MG capsule Take 400 mg by mouth. L-Lysine 1000 MG TABS Take 1,000 mg by mouth daily lactulose (CEPHULAC) 10 g packet Take 10 g by mouth 2 times daily metFORMIN (GLUCOPHAGE) 500 MG tablet Take 500 mg by mouth daily (with breakfast) Misc Natural Products (OSTEO BI-FLEX/5-LOXIN ADVANCED PO) Take by mouth Montelukast Sodium (SINGULAIR PO) Take by mouth Potassium 95 MG TABS Take 1 tablet by mouth daily potassium chloride (KLOR-CON) 8 MEQ extended release tablet Take 99 mEq by mouth daily Patient Instructions: Activity: activity as tolerated Diet: cardiac diet Wound Care: none needed Other: Cam monitor Disposition: Discharge to Home Follow up: Patient will be followed by Molina Ramos DO in 1-2 weeks CORE MEASURES on Discharge (if applicable) ELIZABETH/ARB in CHF: NA Statin in HI: NA ASA in HI: NA Statin in CVA: NA Antiplatelet in CVA: NA Total time spent on discharge services: 35 minutes Including the following activities: Evaluation and Management of patient Discussion with patient and/or surrogate about current care plan Coordination with Case Management and/or Flooring Grader Coordination of care with Consultants (if applicable) Coordination of care with Receiving Facility Physician (if applicable) Completion of DME forms (if applicable) Preparation of Discharge Summary Preparation of Medication Reconciliation Preparation of Discharge Prescriptions Signed: Eunice Guerra APRN, WET PROCESS MILLER HEAD-C 04/18/2020, 6:33 PM Associated attestation - Marcelino Clifford MD - 04/18/2020 7:30 PM EST Marcelino Clifford M.D. Discharge Summary Attestation 04/18/20 I personally evaluated and examined the patient [id number] in conjunction with the PA/WET PROCESS MILLER HEAD and agree with the management and dispostition of the patient. Please see the PA/WET PROCESS MILLER HEAD's note for full details.My eason findings are: Admission date: 04/17/2020 Discharge date: 04/18/2020 Principle Diagnosis: TIA (transient ischemic attack) Exam: GEN: Awake, alert and oriented x3. EYES: EOMI, pupils equal NECK: Supple. No lymphadenopathy. No carotid bruit CVS: regular rate and rhythm, no audible murmur PULM: CTA, no wheezes, rales or rhonchi, no acute respiratory distress ABD: Bowels sounds normal. Abdomen is soft. No distention. no tenderness to palpation. EXT: no edema bilaterally . No calf tenderness. NEURO: - motor: 5/5 bilaterally - sensory: intact to light touch - Cerebellar: mild dysmetria left hand and uncoordinated Flory - speech: fluent without expressive aphasia SKIN: No rashes. No skin lesions. Disposition: Discharge to Home Follow Up: Follow up with Molina Ramos DO in 1-2 weeks Total time spent on discharge services: 35 minutes Including the following activities: Evaluation and Management of patient Discussion with patient and/or surrogate about current care plan Coordination with Case Management and/or Flooring Grader Coordination of care with Consultants (if applicable) Coordination of care with Receiving Facility Physician (if applicable) Completion of DME forms (if applicable) Preparation of Discharge Summary Preparation of Medication Reconciliation Preparation of Discharge Prescriptions Marcelino Clifford M.D. 04/18/2020 7:29 PM documented in this encounter Discharge Instructions * Instructions* Emi Avitia RN - 04/17/2020 Images from the original note were not included. You need to be on aspirin 81 mg daily and Plavix 75 mg daily for 28 days. After 28 days you should be on aspirin 81 mg daily. Sedation for a Medical Procedure: ALEKSANDRA after-care Instructions Your Care Instructions For a minor procedure, you will get a sedative to help you relax. This drug will make you sleepy. It is usually given in a vein (by IV). A spray was also used to numb the throat. Your throat may feel may feel sore. Common side effects from sedation: You will feel sleepy. Rest until the sedation has worn off. Nausea and vomiting is common and usually does not last long. Feeling tired. Follow-up care is a eason part of your treatment and safety. Be sure to make and go to all appointments, and call your doctor if you are having problems. It's also a good idea to know your test results and keep a list of the medicines you take. How can you care for yourself at home? Activity Don't do anything for 24 hours that requires attention to detail or until the effects of sedation completely wear off. Do not drive or operate any machinery until the medicine wears off and you can think clearly and react easily. Do not drink alcohol for 24 hours after procedure. Rest when you feel tired. Getting enough sleep will help you recover. Diet You can clear liquids two hours after last throat spray, which will be at . You may eat soft foods three hours after throat spray, which will be at . Drink plenty of fluids (unless your doctor tells you not to). Also, try to eat just soft foods for next few days until throat irritation is gone. Don't drink alcohol for 24 hours. Medicines You may use Cepacol lozenges or sucrets for the next few days until throat feels better. Be safe with medicines. Read and follow all instructions on the label. If the doctor gave you a prescription medicine for pain, take it as prescribed. If you are not taking a prescription pain medicine, ask your doctor if you can take an orbq-gwn-kmrdtfy medicine. If you think your pain medicine is making you sick to your stomach: Take your medicine after meals (unless your doctor has told you not to). Ask your doctor for a different pain medicine. When should you call for help? Call 911 anytime you think you may need emergency care. For example, call if: You have chest pain or pressure. This may occur with: Sweating. Shortness of breath. Nausea or vomiting. Pain that spreads from the chest to the neck, jaw, or one or both shoulders or arms. A fast or uneven pulse. After calling 911, the dimpling machine operator may tell you to chew 1 adult-strength or 2 to 4 low-dose aspirin. Wait for an ambulance. Do not try to drive yourself. You have signs of a stroke. These may include: Sudden numbness, paralysis, or weakness in your face, arm, or leg, especially on only one side of your body. New problems with walking or balance. Sudden vision changes. Drooling or slurred speech. New problems speaking or understanding simple statements, or feeling confused. A sudden, severe headache that is different from past headaches. You vomit blood or what looks like coffee grounds. You pass maroon or very bloody stools. You passed out (lost consciousness). Call your doctor now or seek immediate medical care if: You feel dizzy or lightheaded, or you feel like you may faint. Your heart rate becomes irregular. You have shortness of breath. You have any unusual bleeding, such as: Bruises or blood spots under the skin. A nosebleed that you cannot stop. Bleeding gums when you brush your teeth. Blood in your urine. Vaginal bleeding when you are not having your period, or heavy period bleeding. Your stools are black and tarlike or have streaks of blood. Watch closely for any changes in your health, and be sure to contact your doctor if: You do not get better as expected. Where can you learn more? Go to [email or web address]://[email or web address].org and sign in to your [employer] account. Enter G817 in the Search Health Information box to learn more about Sedation for a Medical Procedure: Care Instructions. If you do not have an account, please click on the Sign Up Now link. [employer]. Care instructions adapted under license by [employer]. This care instruction is for use with your licensed healthcare professional. If you have questions about amedical condition or this instruction, always ask your healthcare professional. [employer] disclaims any warranty or liability for your use of this information. Content Version: 10.6.061488; Current as of: October 17, 2013 * Attachments The following attachments cannot be sent through Care Everywhere. * TIA (Transient Ischemic Attack) (Qatari) documented in this encounter* Instructions* Luis Enrique Cuellar MD - 05/08/2020 Please take all medications as prescribed. Please follow up with your primary care physician by calling today, or as soon as possible, for thefirst available appointment. If you do not have a primary care physician, please contact a physician or clinic listed below today to establish care. Please return to the emergency department IMMEDIATELY if you develop uncontrolled fevers, uncontrolled vomiting, change in symptoms, worsening of symptoms, or ANY other concerns. * Attachments The following attachments cannot be sent through Care Everywhere. * Diet: DASH (Qatari) * Hypertension: General Info (Qatari) documented in this encounter History of Present Illness * Emi Avitia RN - 04/19/2020 12:55 PM EST Discharge instructions reviewed at this time. * Holly Rodriguez - 04/19/2020 12:47 PM EST Patient instructed on extended monitoring and evaluation advisor indications and use. Diary sent with patient. * Emi Avitia RN - 04/19/2020 12:32 PM EST Cardiopulmonary called at this time for heart monitor. Patient getting dressed. * Emi Avitia RN - 04/19/2020 11:30 AM EST Patient ate lunch and states she feels a lot better and wants to go home. Updated KERRY Dawson. * Emi Avitia RN - 04/19/2020 9:45 AM EST Patient returned from ALEKSANDRA at this time. Patient drowsy but alert. * Rylee Verma - 04/19/2020 9:33 AM EST Instructed patient on policy and procedure of a ALEKSANDRA. * Emi Avitia RN - 04/19/2020 7:40 AM EST Patient taken down for ALEKSANDRA. Report given to RAMONE Henson. * Eunice Guerra APRN - CNP - 04/19/2020 7:11 AM EST Progress Note SUBJECTIVE: Follow-up on TIA OBJECTIVE: Sitting up in chair alert and oriented in no acute distress. Patient was planning discharge last evening however cardiology decided to keep her 1 more night to do the ALEKSANDRA as an inpatient versus doing as an outpatient. She denies any further TIA symptoms. She states she slept well. She isanxious to go home. Her coordination is improved. Vitals: Vitals: 04/19/20 1130 BP: (!) 125/57 Pulse: 68 Resp: 16 Temp: SpO2: Weight: 158 lb (71.7 kg) Height: 5' 4 (162.6 cm) Exam: CONSTITUTIONAL: awake, alert, cooperative, no apparent distress, and appears stated age EYES: Lids and lashes normal, pupils equal, round and reactive to light, extra ocular muscles intact, sclera clear, conjunctiva normal ENT: Normocephalic, without obvious abnormality, atraumatic, sinuses nontender on palpation, external ears without lesions, oral pharynx with moist mucus membranes, tonsils without erythema or exudates, gums normal and good dentition. NECK: Supple, symmetrical, trachea midline, no adenopathy, thyroid symmetric, not enlarged and no tenderness, skin normal HEMATOLOGIC/LYMPHATICS: no cervical lymphadenopathy and no supraclavicular lymphadenopathy LUNGS: No increased work of breathing, good air exchange, clear to auscultation bilaterally, no crackles or wheezing CARDIOVASCULAR: Normal apical impulse, regular rate and rhythm, normal S1 and S2, no S3 or S4, and no murmur noted ABDOMEN: No scars, normal bowel sounds, soft, non-distended, non-tender, no masses palpated, no hepatosplenomegally MUSCULOSKELETAL: There is no redness, warmth, or swelling of the joints. Full range of motion noted. Motor strength is 5 out of 5 all extremities bilaterally. Tone is normal. NEUROLOGIC: Mental Status Exam: Level of Alertness: awake Orientation: person, place, time Memory: normal SKIN: no bruising or bleeding, normal skin color, texture, turgor, no redness, warmth, or swelling,no rashes and no lesions EXT: no cyanosis, clubbing or edema present Diagnostic Data: Reviewed ASSESSMENT: Principal Problem: TIA (transient ischemic attack) Resolved Problems: * No resolved hospital problems. * PLAN: TIA Both CT and MRI were negative for an acute finding Appreciate cardiology Echocardiogram with bubble study negative ALEKSANDRA completed today and was negative Continue Lipitor, Plavix He was started on losartan and Norvasc per cardiology High risk medications: None Discharge plan: Home today and CAM to be placed Eunice Guerra APRN, WET PROCESS M[employer]ER HEAD-C Associated attestation - Marcelino Clifford MD - 04/19/2020 12:56 PM EST Marcelino Clifford M.D. PA / WET PROCESS MILLER HEAD Attestation Note I personally evaluated and examined the patient [id number] in conjunction with the PA/WET PROCESS MILLER HEAD and agree with the management and dispostition of the patient. Please see the PA/WET PROCESS MILLER HEAD's note for full details.My eason findings are: SUBJECTIVE: Patient seen for follow up of TIA (transient ischemic attack). She she denies any further speech difficulties. She denies any chest pain, palpitations or SOB. She denies lightheadedness, dizziness, vision changes or headache. OBJECTIVE: Vitals: Temp: 97.2 F (36.2 C) BP: (!) 125/57 Resp: 16 Pulse: 68 SpO2: 96 % on room air 24HR INTAKE/OUTPUT: Intake/Output Summary (Last 24 hours) at 04/19/2020 1253 Last data filed at 04/19/2020 0824 Gross per 24 hour Intake 150 ml Output 100 ml Net 50 ml Exam: GEN: Awake, alert and oriented x3. EYES: EOMI, pupils equal NECK: Supple. No lymphadenopathy. No carotid bruit CVS: regular rate and rhythm, no audible murmur PULM: CTA, no wheezes, rales or rhonchi, no acute respiratory distress ABD: Bowels sounds normal. Abdomen is soft. No distention. no tenderness to palpation. EXT: no edema bilaterally . No calf tenderness. NEURO: - motor: 5/5 bilaterally - sensory: intact to light touch - Cerebellar: mild dysmetria left hand and uncoordinated Flory - speech: fluent without expressive aphasia SKIN: No rashes. No skin lesions. Diagnostic Data: All available data reviewed Lab Results Component Value Date WBC 5.2 04/18/2020 HGB 11.0 (L) 04/18/2020 MCV 93.0 04/18/2020 PLT 192 04/18/2020 Lab Results Component Value Date GLUCOSE 96 04/18/2020 BUN 22 04/18/2020 CREATININE 0.72 04/18/2020 NA 140 04/18/2020 K 4.2 04/18/2020 CALCIUM 8.9 04/18/2020 CL 107 04/18/2020 CO2 26 04/18/2020 CTA HEAD NECK W CONTRAST Final Result No large vessel occlusion or hemodynamic stenosis. 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 MRI BRAIN WO CONTRAST Final Result No acute intracranial abnormality. Minimal parenchymal volume loss. Minimal chronic microvascular disease. CT HEAD WO CONTRAST Final Result No acute intracranial abnormality. Results were sent to radiology results communication. ASSESSMENT / PLAN: I agree with the assessment and plan as outlined by PA/WET PROCESS MILLER HEAD below TIA (transient ischemic attack) Echo with bubble study negative for intraatrial communication ALEKSANDRA this morning shows no thrombosis ASA, Plavix, Atorvastatin Outpatient f/u with neurology Hypertension Amlodipine / Losartan Nutrition status: Well developed, well nourished with no malnutrition DVT prophylaxis: Lovenox High risk medications: none Disposition: Discharge plan is home Marcelino Clifford M.D. 04/19/2020 12:53 PM * Lulu Jeffers RN - 04/18/2020 11:45 PM EST Patient reassessment and vitals completed. See charting on all * Lulu Jeffers RN - 04/18/2020 10:16 PM EST Patient discharge was canceled. Patient was provided a New IV site without complications. Patient denies any needs. * Lulu Jeffers RN - 04/18/2020 8:46 PM EST Call from [employer] wanting to cancel patient discharge and plan for ALEKSANDRA tomorrow. is to callPelon and have her come talk to patient * Lulu Jeffers RN - 04/18/2020 8:23 PM EST Patient still awaiting cam monitor placement, RT was called by another nurse and they are busy in the emergency room, patient was updated at this time. * Lulu Jeffers RN - 04/18/2020 7:00 PM EST Went over patient Discharge instructions with her and her , she denies any questions as of this time. Called Respiratory to inform them she is ready for her monitor to be placed for discharge. * Lulu Jeffers RN - 04/18/2020 6:32 PM EST Awaiting discharge order, Eunice was just in to see patient. She is discharged home with a Cam monitor, awaiting monitor placement. At this time patient IV removed to [facility] without complications. Patient was given tylenol per request for neck discomfort. * Rylee Verma - 04/18/2020 2:20 PM EST Echo with bubble study was perfomed per Dr. Marx request. * Vicky Adams LSW - 04/18/2020 10:30 AM EST SW met with pt to complete assessment. Pt is alert and oriented and cooperative with assessment. Ptis a 79 year old female admitted for TIA. Pt reports that her son lives with her in her home in [place]. Pt states that she uses no [facility] or community services. 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 Pt drives and is able to get herself to appointments as needed. Pt is a full code and follows with Dr Molina Ramos as PCP. Pt does not have advance directives onfile. Pastoral care consult for further information regarding these is on the chart and pt would like further information. Pt reports that her medications are affordable. Pt plans to return home at discharge. Pt identifies no discharge needs or concerns at this time. SWwill remain available as needed. Vicky PARIKHW 04/18/2020 * Neela Dunn, OT - 04/18/2020 10:06 AM EST Occupational Therapy Occupational Therapy Initial Assessment Date: 04/18/2020 Patient Name: Ever Palmer : 1940 Date of Service: 04/18/2020 Discharge Recommendations: Assessment Performance deficits / Impairments: Decreased functional mobility ;Decreased ADL status;Decreased strength;Decreased endurance;Decreased balance Assessment: Pt is a 79 y/o female admitted d/t TIA. Pt presents with decreased strength, endurance,and dynamic standing balance resulting in decreased independence with ADLs. Pt to benefit from OT services to address these deficits and return to PLOF. Treatment Diagnosis: generalized weakness Prognosis: Fair Decision Making: Medium Complexity OT Education: OT Role;Plan of Care Barriers to Learning: none REQUIRES OT FOLLOW UP: Yes Activity Tolerance Activity Tolerance: Patient Tolerated treatment well Safety Devices Safety Devices in place: Yes Type of devices: Left in chair;Call light within reach Patient Diagnosis(es): The encounter diagnosis was TIA (transient ischemic attack). has a past medical history of Asthma, Diabetes mellitus (HCC), History of DVT (deep vein thrombosis), Hypertension, and TIA (transient ischemic attack). has a past surgical history that includes Hysterectomy; Carpal tunnel release (Bilateral); Ankle surgery (Left); Colonoscopy; Appendectomy; Cholecystectomy; Cataract removal with implant (Left); Cataract removal with implant (Right, 12/20/2017); and pr xcapsl ctrc rmvl insj io lens prosth w/o ecp (Right, 12/20/2017). Treatment Diagnosis: generalized weakness Restrictions Restrictions/Precautions Restrictions/Precautions: General Precautions, Fall Risk Subjective General Chart Reviewed: Yes Patient assessed for rehabilitation services?: Yes Family / Caregiver Present: No Referring Practitioner: Dr. Clifford Diagnosis: TIA Subjective Subjective: Pt reports 2/10 neck pain. General Comment Comments: Pt in bedside chair upon OT arrival. Agreeable to OT evaluation. Patient Currently in Pain: Yes Pain Assessment Pain Location: Neck Pain Descriptors: Headache Vital Signs Patient Currently in Pain: Yes Height and Weight Height: 5' 3 (160 cm) Social/Functional History Social/Functional History Lives With: Son Type of Home: House Home Layout: Two level Home Access: Stairs to enter with rails Entrance Stairs - Number of Steps: 2 Entrance Stairs - Rails: Right Bathroom Shower/Tub: Tub only Bathroom Toilet: Standard ADL Assistance: Independent Homemaking Assistance: Independent Homemaking Responsibilities: Yes Ambulation Assistance: Independent Transfer Assistance: Independent Active Escrow Clerk: Yes Additional Comments: Pt reports she is independent to complete all ADLs and IADLs at [facility] without AD. Objective Vision: Impaired Vision Exceptions: Wears glasses at all times Hearing: Within functional limits Balance Sitting Balance: Supervision Standing Balance: Contact guard assistance Standing Balance Time: 4 minutes Activity: functional mobility, ADLs Comment: F+ dynamic standing balance Functional Mobility Functional - Mobility Device: No device Activity: To/from bathroom Assist Level: Contact guard assistance ADL Feeding: Setup Grooming: Setup UE Bathing: Stand by assistance LE Bathing: Contact guard assistance UE Dressing: Stand by assistance LE Dressing: Contact guard assistance Toileting: Contact guard assistance Additional Comments: Pt performed toileting and toilet hygiene with CGA Bed mobility Comment: Not assessed, pt in bedside chair upon OT arrival Transfers Sit to stand: Contact guard assistance Stand to sit: Contact guard assistance Cognition Overall Cognitive Status: WFL LUE Strength L Hand General: 4+/5 RUE Strength R Hand General: 4+/5 Plan Plan Times per week: 7 Times per day: Daily Current Treatment Recommendations: Strengthening, Endurance Training, Patient/Caregiver Education & Training, Self-Care / ADL, Balance Training, Functional Mobility Training, Safety Education & Training Plan Comment: ther act, ther ex, ADL training G-Code OutComes Score AM-PAC Score AM-PAC Inpatient Daily Activity Raw Score: 21 (04/18/201005) AM-PAC Inpatient ADL T-Scale Score : 44.27 (04/18/201005) ADL Inpatient CMS 0-100% Score: 32.79 (04/18/201005) ADL Inpatient CMS G-Code Modifier : CJ (04/18/201005) Goals Short term goals Time Frame for Short term goals: 20 visits Short term goal 1: Pt will perform functional transfers/functional mobility with mod I using LRAD to increase independence with ADLs. Short term goal 2: Pt will tolerater 15 minutes or greater ther act/ther ex without rest breaks to increase functional endurance. Short term goal 3: Pt will perform TB ADLs standing sinkside with good dynamic standing balance x 6minutes or greater with SUP. Short term goal 4: Pt will verbalize and demonstrate understanding of discharge recommendations andHEP. Therapy Time Individual Concurrent Group Co-treatment Time In 919 Time Out 0941 Minutes 21 Neela Dunn OT * Manuel Will SLP - 04/18/2020 9:19 AM EST Speech Language Pathology Facility/Department: [facility] MED SURG Initial Speech/Language/Cognitive Assessment NAME: Ever Palmer : 1940 ADMISSION DATE: 04/17/2020 ADMITTING DIAGNOSIS: has TIA (transient ischemic attack) on their problem list. DATE ONSET: 04/17/2020 Date of Eval: 04/18/2020 Evaluating Therapist: RADHA Jerome RECENT RESULTS CT OF HEAD/MRI:04/17/2020 No large vessel occlusion or hemodynamic stenosis. 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 Primary Complaint: Pt noted slurred speech and difficulty getting words out when at home. Pt states once arriving to hospital that slurred speech was gone and Pt was back to being able to communicate appropriately. Pt had no concerns with speech and language at time of evaluation on 04/18/2020 Pain: Pain Assessment Pain Assessment: 0-10 Pain Level: 3 Pain Type: Acute pain Pain Location: Neck Pain Descriptors: Headache Assessment: Diagnosis: TIA (Transient Ischemic Attack) G45.9 Recommendations: Requires OFFICE SERVICES SPECIALIST Intervention: No Duration/Frequency of Treatment: No further treatment required at this time. D/C Recommendations: To be determined Plan: Goals: Short-term Goals Timeframe for Short-term Goals: No further treatment required at this time. Patient/family involved in developing goals and treatment plan: YES Subjective: Previous level of function and limitations: General Chart Reviewed: Yes Family / Caregiver Present: No General Comment Comments: Pt has had no prior history of strokes or TIA. Vision Vision: Impaired Vision Exceptions: Wears glasses at all times Hearing Hearing: Within functional limits Objective: Oral/Motor Oral Motor: Within functional limits Auditory Comprehension Comprehension: Within Functional Limits Expression Primary Mode of Expression: Verbal Verbal Expression Verbal Expression: Within functional limits Written Expression Written Expression: Within Functional Limits Motor Speech Motor Speech: Within Functional Limits Pragmatics/Social Functioning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 Provider: Tia Madrid RN) acetaminophen (TYLENOL) tablet 1,000 mg (COMPLETED) 1,000 mg, Oral, ONCE, On Wed09/04/20 at 0530, For 1 dose, Maximum dose of acetaminophen is 4000 mg from all sources in 24 hours. 0512 (Given - Provider: Vickie Byrne RN) alteplase (ACTIVASE) injection 56.6 mg (COMPLETED) 56.6 mg (rounded from 56.619 mg = 0.81 mg/kg 69.9 kg), Intravenous, at 56.6 mL/hr, Administer over 60 Minutes, ONCE, On Wed09/02/20 at 1200, For 1 dose, Infusion Dose ----- Total dose of Alteplase=0.9mg/kg (90mg max) (10% -- given as Bolus) (90% -- given as Infusion) 1159 (New Bag - Provider: Pantera Guillen RN)1322 (Stopped - Provider: Pantera Guillen RN) alteplase (ACTIVASE) injection 6.3 mg (COMPLETED) 6.3 mg (rounded from 6.291 mg = 0.09 mg/kg 69.9 kg), Intravenous, ONCE, On Wed09/02/20 at 1200, For 1 dose, Bolus Dose ----- Total dose of Alteplase=0.9mg/kg (90mg max) (10% -- given as Bolus) (90% -- given as Infusion) 1200 (New Bag - Provider: Pantera Guillen RN) amLODIPine (NORVASC) tablet 5 mg 5 mg, Oral, DAILY, First dose on Wed09/02/20 at 1430 1408 (Held by provider - Provider: Dwight Jackson RN - Reason: Other)1430 (Automatically Held) 0900 (Automatically Held) 0900 (Automatically Held) aspirin EC tablet 81 mg 81 mg, Oral, DAILY, First dose on Wed09/03/20 at 0900 1408 (Held by provider - Provider: Dwight Jackson RN - Reason: Other) 0900 (Automatically Held)1551 (Unheld by provider - Provider: King Monteiro MD) 0925 (Given - Provider: Yordy Andrea RN) atorvastatin (LIPITOR) tablet 40 mg 40 mg, Oral, NIGHTLY, First dose on Wed09/02/20 at 2100 2025 (Not Given - Provider: Caitlyn Larson RN - Reason: Other - Comment: pt lethargic) 2016 (Given - Provider: Vickie Byrne RN) 2099 (Due) busPIRone (BUSPAR) tablet 15 mg 15 mg, Oral, 2 TIMES DAILY, First dose on Wed09/02/20 at 2000, This 15 mg tablet can be split into thirds (5 mg) or halves (7.5 mg) based on the ordered dose. 2025 (Not Given - Provider: Caitlyn Larson RN - Reason: Other - Comment: pt lethargic) 857 (Given - Provider: Tia Madrid, RAMONE)2016 (Given - Provider: Vickie Byrne, RAMONE) 0925 (Given - Provider: Yordy Andrea RN)1999 (Due) clopidogrel (PLAVIX) tablet 75 mg 75 mg, Oral, DAILY, First dose on Wed09/03/20 at 0900 1408 (Held by provider - Provider: Dwight Jackson RN - Reason: Other) 0900 (Automatically Held)1551 (Unheld by provider - Provider: King Monteiro MD) 0925 (Given - Provider: Yordy Andrea, RAMONE) gabapentin (NEURONTIN) capsule 100 mg 100 mg, Oral, NIGHTLY, First dose on Wed09/02/20 at 2100 2026 (Not Given - Provider: Caitlyn Larson RN - Reason: Other - Comment: pt lethargic) 2017 (Given - Provider: Vickie Byrne RN) 2100 (Due) haloperidol lactate (HALDOL) injection 5 mg 5 mg, Intramuscular, ONCE, On Wed09/02/20 at 2215, For 1 dose, IM route of administration preferred. Because of the risk of TdP and QT prolongation, ECG monitoring is recommended if haloperidol is given IV. 0157 (Not Given - Provider: Caitlyn Larson RN - Reason: Patient/family refused - Comment: Pt assessment changed - no need for medication) lactulose (CHRONULAC) 10 GM/15ML solution 10 g (CANCELED) 10 g, Oral, 2 TIMES DAILY, First dose on Wed09/02/20 at 1500 1620 (Not Given - Provider: Dwight Jackson RN - Reason: Other) 0858 (Given - Provider: Tia Madrid RN) levETIRAcetam (KEPPRA) 1000 mg/100 mL IVPB (COMPLETED) 1,000 mg, Intravenous, ONCE, 1 dose, On Wed09/02/20 at 1630 1600 (New Bag - Provider: Dwight Jackson, RAMONE)1817 (Stopped - Provider: Dwight Jackson, RAMONE) losartan (COZAAR) tablet 50 mg 50 mg, Oral, 2 TIMES DAILY, First dose on Wed09/02/20 at 1430 1408 (Held by provider - Provider: Dwight Jackson RN - Reason: Other)1430 (Automatically Held)2100 (Automatically Held) 0900 (Automatically Held)2100 (Automatically Held) 0900 (Automatically Held)2100 (Automatically Held) sodium chloride flush 0.9 % injection 5-40 mL 5-40 mL, Intravenous, EVERY 12 HOURS SCHEDULED (2 times per day), First dose on Wed09/02/20 at 2100, For Line Patency: Peripheral IV = 5 mL; Midline or Central Line = 10 mL/lumen. If following IV push medication, administer flush at same rate as the IV push. Flush volume is determined by type of infusion therapy being given. For non-viscous solutions use: Peripheral IV = 5 mL Midline or Central Line = 10 mL/lumen For viscous solutions (i.e. blood components, parenteral nutrition, contrast media, or after obtaining blood sample) use: Peripheral IV = 10 mL Midline or Central Line = 20 mL/lumen 2026 (Given - Provider: Caitlyn Larson RN) 09 (Not Given - Provider: Tia Madrid RN - Reason: IV Fluid Infusing)2020 (Given - Provider: Vickie Byrne RN) 925 (Given - Provider: Yordy Andrea RN)2099 (Due) sodium chloride flush 0.9 % injection 5-40 mL (CANCELED) 5-40 mL, Intravenous, EVERY 12 HOURS SCHEDULED (2 times per day), First dose on Wed09/02/20 at 2100, For Line Patency: Peripheral IV = 5 mL; Midline or Central Line = 10 mL/lumen. If following IV push medication, administer flush at same rate as the IV push. Flush volume is determined by type of infusion therapy being given. For non-viscous solutions use: Peripheral IV = 5 mL Midline or Central Line = 10 mL/lumen For viscous solutions (i.e. blood components, parenteral nutrition, contrast media, or after obtaining blood sample) use: Peripheral IV = 10 mL Midline or Central Line = 20 mL/lumen 2026 (Given - Provider: Caitlyn Larson RN) 09 (Not Given - Provider: Tia Madrid RN - Reason: IV Fluid Infusing) PRN Medication Order 09/02/2020 09/03/2020 09/04/2020 0.9 % sodium chloride infusion 25 mL, Intravenous, at 100 mL/hr, PRN, If patient receiving piggyback infusions without ordered maintenance IV fluids or with frequent/long duration piggyback infusions, Starting on Wed09/02/20 at 1152, Administer at the same rate as the piggyback being infused. 0.9 % sodium chloride infusion 25 mL, Intravenous, at 100 mL/hr, PRN, If patient receiving piggyback infusions without ordered maintenance IV fluids or with frequent/long duration piggyback infusions, Starting on Wed09/02/20 at 1408, Administer at the same rate as the piggyback being infused. iopamidol (ISOVUE-370) 76 % injection 90 mL (COMPLETED) 90 mL, Intravenous, IMG ONCE PRN, Other, Starting on Wed09/02/20 at 1220, For 1 dose 1228 (Given - Provider: Kelley Sosa) labetalol (NORMODYNE;TRANDATE) injection 10 mg 10 mg, Intravenous, EVERY 4 HOURS PRN, High Blood Pressure, Give for SBP >185, Starting on Wed09/02/20 at 1408, Administer 10 mg IV every 10 minutes if SBP is 220 mmHg or greater OR DBP is 120 mmHg or greater. Notify provider if SBP is 220 mmHg or greater OR DBP is 120 mmHg or greater after 3 consecutive doses. ondansetron (ZOFRAN) injection 4 mg(Linked Group 1) 4 mg, Intravenous, EVERY 6 HOURS PRN, Nausea, Vomiting, Starting on Wed09/02/20 at 1408, Administer if oral route cannot be used. ondansetron (ZOFRAN-ODT) disintegrating tablet 4 mg(Linked Group 1) 4 mg, Oral, EVERY 8 HOURS PRN, Nausea, Vomiting, Starting on Wed09/02/20 at 1408 polyethylene glycol (GLYCOLAX) packet 17 g 17 g, Oral, DAILY PRN, Constipation, Starting on Wed09/02/20 at 1408, First line therapy for constipation promethazine (PHENERGAN) injection 12.5 mg 12.5 mg, Intravenous, EVERY 6 HOURS PRN, Nausea, Vomiting, Starting on Wed09/02/20 at 1610, Recommended route is IM. For IV administration, dilute to 10ml with normal saline. Must be administered over at least 10 minutes. sodium chloride flush 0.9 % injection 5-40 mL 5-40 mL, Intravenous, PRN, Line Care, After every IV line use, Starting on Wed09/02/20 at 1408, For Line Patency: Peripheral IV = 5 mL; Midline or Central Line = 10 mL/lumen. If following IV push medication, administer flush at same rate as the IV push. Flush volume is determined by type of infusion therapy being given. For non-viscous solutions use: Peripheral IV = 5 mL Midline or Central Line = 10 mL/lumen For viscous solutions (i.e. blood components, parenteral nutrition, contrast media, or after obtaining blood sample) use: Peripheral IV = 10 mL Midline or Central Line = 20 mL/lumen Linked Groups Order Group 1: ondansetron (ZOFRAN-ODT) disintegrating tablet 4 mgJump to med 4 mg, Oral, EVERY 8 HOURS PRN, Nausea, Vomiting, Starting on Wed09/02/20 at 1408 Or ondansetron (ZOFRAN) injection 4 mgJump to med 4 mg, Intravenous, EVERY 6 HOURS PRN, Nausea, Vomiting, Starting on Wed09/02/20 at 1408
Administer if oral route cannot be used.
Scheduled Medication Order 10/03/2021 10/04/2021 10/05/2021 aspirin chewable tablet 81 mg (COMPLETED) 81 mg, Oral, ONCE, 1 dose, On 10/05/21 at 1630 1650 (Given - Provid er: Arianna Turner RN) nitrofurantoin (macrocrystal-monohydrate) (MACROBID) capsule 100 mg (COMPLETED) 100 mg, Oral, NOW, 1 dose, On Wed10/05/21 at 1800, Antimicrobial Indications: Urinary Tract Infection 1752 (Given - Provid er: Arianna Turner RN) PRN Medication Order 10/03/2021 10/04/2021 10/05/2021 iopamidol (ISOVUE-370) 76 % injection 75 mL (COMPLETED) 75 mL, IntraVENous, IMG ONCE PRN, 1 dose, Starting on Wed10/05/21 at 1534, Until 10/05/21 at 1537, Other 1537 (Given - Provid er: Preethi Gamble) Scheduled Medication Order 10/19/2021 10/20/2021 10/21/2021 amLODIPine (NORVASC) tablet 5 mg (COMPLETED) 5 mg, Oral, ONCE, 1 dose, On Wed10/21/21 at 1700 1711 (Given - Provid er: Sara Mckoy RN) Scheduled Medication Order 01/19/2024 01/20/2024 01/21/2024 HYDROcodone-acetaminophen (NORCO) 5-325 MG per tablet 2 tablet (COMPLETED) 2 tablet, Oral, ONCE, 1 dose, On Wed01/21/24 at 1545, Maximum dose of acetaminophen is 4000 mg from all sources in 24 hours. 1559 (Given - Provid er: Ivonne Nash RN) Care Teams (unrecognized sec tion and content) [employer] Relationship Specialty Start Date End Date Molnia Ramos, DO [address] [place] [address], [place] [phone] PCP - General 06/05/12 [employer] Relationship Specialty Start Date End Date Molina Ramos, DO [address] [place] [address], [place] [phone] PCP - General 06/05/12 [employer] Relationship Specialty Start Date End Date Molina Ramos, DO [address] [place] [address], [place] [phone] PCP - General 06/05/12 [employer] Relationship Specialty Start Date End Date Molina Ramos, DO [address] [place] [address], [place] [phone] PCP - General 06/05/12 [employer] Relationship Specialty Start Date End Date Molina Ramos, DO [address] [place] [address], [place] [phone] PCP - General 06/05/12 [employer] Relationship Specialty Start Date End Date Molina Ramos, DO [address] [place] [address], [place] [phone] PCP - General 06/05/12 [employer] Relationship Specialty Start Date End Date Molina Ramos, DO [address] [place] [address], [place] [phone] PCP - General 06/05/12 [employer] Relationship Specialty Start Date End Date Molina Ramos, DO [address] [place] [address], [place] [phone] PCP - General 06/05/12 [employer] Relationship Specialty Start Date End Date Molina Ramos, DO [address] [place] [address], [place] [phone] PCP - General 06/05/12 [employer] Relationship Specialty Start Date End Date Molina Ramos DO [address] [place] [phone] PCP - General 06/05/12 [employer] Relationship Specialty Start Date End Date Molina Ramos DO [address] [place] [phone] PCP - General 06/05/12 [employer] Relationship Specialty Start Date End Date Molina Ramos DO [address] [place] [phone] PCP - General 06/05/12 [employer] Relationship Specialty Start Date End Date Molina Ramos DO [address] [place] [phone] PCP - General 06/05/12 [employer] Relationship Specialty Start Date End Date Molina Ramos DO [address] [place] [phone] PCP - General 06/05/12 [employer] Relationship Specialty Start Date End Date Molina Ramos DO [address] [place] [phone] PCP - General 06/05/12 [employer] Relationship Specialty Start Date End Date Molina Ramos DO [address] [place] [phone] PCP - General 06/05/12 [employer] Relationship Specialty Start Date End Date Molina Ramos DO [address] [place] [phone] PCP - General 06/05/12 [employer] Relationship Specialty Start Date End Date Molina Ramos DO [address] [place] [phone] PCP - General 06/05/12 [employer] Relationship Specialty Start Date End Date Molina Ramos DO [address] [place] [phone] PCP - General 06/05/12 [employer] Relationship Specialty Start Date End Date Molina Ramos DO [address] [place] [phone] PCP - General 06/05/12 [employer] Relationship Specialty Start Date End Date Mloina Ramos DO [address] [place] [phone] PCP - General 06/05/12 INFORMATION SOURCE (unrecogn ized section and content) DATE CREATED AUTHOR 03/04/2021 [facility] DATE CREATED AUTHOR 'S ORGANIZ ATION 02/22/2024 [facility] Rosmery bustos FOR RECORDS PERTAINING TO PATIENTS WHO ARE OR HAVE BEEN ENROLLED IN A CHEMICAL DEPENDENCY/SUBSTANCEABUSE PROGRAM, SOME INFORMATION MAY BE OMITTED. This clinical summary was aggregated from multiple sources. Caution should be exercised in using it in the provision of clinical care. This summary normalizes information from multiple sources, and as a consequence, information in this document may materially change the coding, format and clinical context of patient data. In addition, data may be omitted in some cases. CLINICAL DECISIONS SHOULD BE BASED ON THE PRIMARY CLINICAL RECORDS. [facility]. provides no warranty or guarantee of the accuracy or completeness of information in this document.
[2024-03-20 10:09] VITALS: BP 147/71; PULSE 84; TEMP 36.6; O2SAT 100
[2024-03-20 10:45] VITALS: BP 159/70; PULSE 85; O2SAT 98
[2024-03-20 10:46] VITALS: BP 176/78; PULSE 95; O2SAT 98
[2024-03-20] MEDS: 0.9 % SODIUM CHLORIDE 10 ML SYRINGE - SALINE FLUSH INJ (10:52)
[2024-03-20] MEDS: IOHEXOL 240 MG/ML - 10 ML VIAL 24 MG INJ (10:52)
[2024-03-20] MEDS: BUPIVACAINE HCL 0.25% PF 25 MG/10 ML VIAL INJ (10:52)
[2024-03-20] MEDS: METHYLPREDNISOLONE ACETATE 80 MG/ML VIAL INJ (10:53)
[2024-03-20] MEDS: LIDOCAINE HCL 2% 400 MG/20 ML MDV 3 ML INJ (10:53)
--- NOTE | 2024-03-20 10:54 | P.ON_ITS ---
Date of procedure: 03/20/24 Pre-op diagnosis: Pain due to lumbar stenosis with neurogenic claudication Post-op diagnosis: same as pre-op Procedure: Procedure: Right L4-5, L5-S1 transforaminal epidural steroid injection Medications: Bupivacaine 0.25% 2cc, lidocaine 2% 1cc, depomedrol 80mg The patient was seen and examined in the preoperative holding area.? Informed consent was obtained and placed on the chart.? Patient was brought to the medical procedure unit and placed in the prone position where a timeout was completed verifying the correct patient, procedure site, position, and planned special equipment using sterile aseptic technique.? Under direct fluoroscopic visualization a 25-gauge Quincke tipped spinal needle was advanced to the designated neural foramen where contrast dye was injected to show adequate spread.? The needle was inserted at level right L4-5. There was no evidence of vascular or adverse uptake.? Epidural spread was appreciated.? The above- mentioned injectate was then placed in a 1.5 mL aliquot preceded by negative aspiration.? The needle was removed. The needle was inserted and the procedure repeated at level right L5-S1.? The surgery site was covered.? Patient was taken to the postprocedural recovery area and monitored for an appropriate length of time before found suitable for discharge in the accompaniment of a responsible adult. Anesthesia: Local Surgeon: Tahir Sparrow Pathology: none sent Condition: stable Disposition: no change
== END 2024-03-20 10:57 | disposition home or self-care (01) ==
LOC: SURGOUT 09:56
PROVIDERS: Family Provider Internal Medicine; PCP Internal Medicine; Visit Provider Anesthesiology
DX: M48.062 Spinal stenosis, lumbar region with neurogenic claudication (principal); M54.50 Low back pain, unspecified
CPT/HCPCS: 64483; 64484; J0665; J1010; Q9966

== ENCOUNTER 2024-04-05 14:00 | Outpatient (OUT) | payer MEDICARE, SELFPAY ==
--- NOTE | 2024-04-05 14:26 | PM.CN ---
Consult Note: HPI Data of Consult Patient: known to practice within the last 3 years Requesting Physician: Symone Bales NP Primary Care Provider: RICHIE RAMOS DO Family Provider: RICHIE RAMOS DO Consult Narrative Reason for consult: f/u Narrative: Danielle Ash an 83 year old female presents for evaluation of chronic low back pain. has failed to benefit from >6 weeks of PT/provider guided HEP, heat, ice, tylenol, NSAIDs. Prior imaging consistent with lumbar spondylosis, lumbar DDD, and lumbar stenosis. pt utilizes baclofen and tylenol with mild relief. recently underwent right L4-5 L5-S1 TFESI with >50% improvement in radicular pain. Pt continues to report moderate to severe low back pain, 7/10 increasing to 10/10 with standing and walking. cc:: CC: Symone Bales NP Review of Systems ROS Status of ROS 10 or more systems reviewed and unremarkable except as noted in history and below Musculoskeletal Reports: back pain; Denies: extremity pain PFSH PFSH Medical History (Updated 04/05/24 @ 14:29 by Symone Bales NP) Low back pain ?M54.50 - Low back pain, unspecified (ICD-10) Heartburn ?R12 - Heartburn (ICD-10) Acid reflux ?K21.9 - Gastro-esophageal reflux disease without esophagitis (ICD-10) Obesity ?E66.9 - Obesity, unspecified (ICD-10) Asthma ?J45.909 - Unspecified asthma, uncomplicated (ICD-10) Irregular heart beat ?I49.9 - Cardiac arrhythmia, unspecified (ICD-10) Hypertension ?I10 - Essential (primary) hypertension (ICD-10) Surgical History History of cholecystectomy ?Z90.49 - Acquired absence of other specified parts of digestive tract (ICD-10) H/O foot surgery ?Z98.890 - Other specified postprocedural states (ICD-10) H/O carpal tunnel repair ?Z98.890 - Other specified postprocedural states (ICD-10) H/O: hysterectomy ?Z90.710 - Acquired absence of both cervix and uterus (ICD-10) Meds Home Medications and Allergies Home Medications ?Medication ?Instructions ?Recorded ?Confirmed ?Type aspirin 81 mg capsule 81 mg PO DAILY 03/09/24 03/20/24 History atorvastatin 40 mg tablet 40 mg PO DAILY 03/09/24 03/20/24 History baclofen 10 mg tablet 10 mg PO DAILY 03/09/24 03/20/24 History calcium 500 mg tablet mg 03/09/24 History cetirizine 5 mg tablet 5 mg PO BID PRN allergy symptoms 03/09/24 03/20/24 History cholecalciferol (vitamin D3) 50 2,000 unit PO DAILY 03/09/24 03/20/24 History mcg (2,000 unit) capsule magnesium 200 mg tablet 200 mg PO DAILY 03/09/24 03/20/24 History metformin 500 mg tablet 500 mg PO DAILY 03/09/24 03/20/24 History montelukast 10 mg tablet 10 mg PO DAILY 03/09/24 03/20/24 History (Singulair) ropinirole 1 mg tablet 1 mg PO TID 03/09/24 03/20/24 History spironolactone 25 mg tablet 25 mg PO BID 03/09/24 03/20/24 History Allergies Allergy/AdvReac Type Severity Reaction Status Date / Time morphine AdvReac Mild itch Verified 03/20/24 10:17 Exam Constitutional Documenting provider has reviewed patient's vital signs: yes Common normals: no apparent distress, oriented x3, healthy appearing, alert and well nourished General appearance: cooperative HENMT Common normals: normocephalic, hearing grossly normal bilaterally and moist oral mucous membranes Head and scalp: normocephalic Eye Common normals: PERRL Pupil: PERRL Neck & C-Spine Common normals: full ROM General: normal visual inspection Chest Common normals: inspection of chest normal Respiratory Common normals: normal respiratory effort, no retractions and no use of accessory muscles Back & Pelvis Lumbar spine/lower back: ROM limited, pain with ROM and straight leg raise negative bilaterally Sacroiliac joints: SI joint(s) abnormal Other: positive facet loading strength 5/5 in BLE sensation intact BLE Extremity Common normals: normal to inspection and full ROM Neuro Common normals: oriented x3, CN's II-XII intact bilaterally, moves all extremities, no focal motor deficits, no sensory deficits noted and deep tendon reflexes 2+ bilaterally Sensorium/orientation: alert Motor exam: strength 5/5 throughout and no movement abnormalities noted Psych Common normals: mental status grossly normal, thought process normal, cooperative, affect normal, speech normal and activity/motor behavior normal Speech: normal speech Thought process: normal thought process Results Additional Findings Additional findings: If on a controlled substance or opioids, I have checked an [place] report on this patient and there are no aberrancies noted in the prescribing history.??If on a controlled substance or opioid a drug screen was completed and reviewed within the last year, and if there has not been a drug screen completed we ordered one today to monitor higher risk, state monitored pain medication use. As part of providing excellent, safe, comprehensive care, the following was completed at our patient's visit: 1. A medication reconciliation and review to ensure accurate knowledge of current/active medications, including asking our patients to inform us about any skji-bol-[id number] medications or herbal remedies/nutritional supplements/alternative remedies. 2. A review to specifically ensure our patients have had annual screening for screening for depression, screening for tobacco use, and screening for unhealthy alcohol use. For concerning screenings had a discussion with the patient, provided patient education, and recommended follow-up with primary care provider when appropriate. If patient noted with a risk of falling, they received education on strength, gait, and balance training to prevent future risk of falling. Portions of this note may have been carried over from the previous visit and updated as appropriate. Please note this office utilizes paper charting in addition to the electronic medical record. A list of current medications, vitals, and PMH is available there as the clinical staff outside of myself do not have access to [facility] charting during the clinic day operations. As part of providing quality comprehensive care the current medications, vitals, and PMH were reviewed in the paper chart. Assessment and Plan Assessment and Plan (1) Lumbar spondylosis: Assessment and Plan: The patient has had over 3 months of moderate to severe low back pain with functional impairment and inadequate response to conservative care including NSAIDS (unless there are contraindication such as concurrent blood thinners), multiple oral or topical pain medications, and home exercise program/physical therapy.? Patient has completed >6 weeks of guided home exercise program and/or formal physical therapy program without relief of their symptoms.? I have reviewed the imaging of the lumbar spine and no red flags were identified.? The Oswestry Disability Index was completed, and the patient scored a 38%.? The patient noted the following:?? moderate to severe pain, pain impacting ADLs, pain impacting ability to walk and stand, pain impacting sleep We discussed the risks and benefits of the procedure with the patient, and we are NOT planning on using sedation as outlined in the guidelines from Medicare unless there is a documented reason that sedation would be strongly recommended.???The procedure will be completed with fluoroscopic guidance.? (2) Lumbar degenerative disc disease: (3) Lumbar stenosis with neurogenic claudication: Assessment and Plan: >50% improvement ongoing from recent right L4-5 L5-S1 TFESI Plan bilateral L4-5 L5-S1 facet medial branch block x2 working towards RFA continue current medications continue HEP as tolerated f/u after each injection
== END 2024-04-05 14:01 | disposition home or self-care (01) ==
LOC: PM 14:00
PROVIDERS: Family Provider Internal Medicine; PCP Internal Medicine; Visit Provider Nurse Practitioner
DX: M47.816 Spondylosis without myelopathy or radiculopathy, lumbar region (principal); M51.369 Other intervertebral disc degeneration, lumbar region without mention of lumbar back pain or lower extremity pain; M48.062 Spinal stenosis, lumbar region with neurogenic claudication
CPT/HCPCS: G0463

== ENCOUNTER 2024-04-17 09:24 | Day surgery (SDC) | payer MEDICARE, SELFPAY ==
[2024-04-17 09:47] VITALS: BP 138/77; PULSE 76; TEMP 36.3; O2SAT 98
[2024-04-17 10:34] VITALS: BP 131/60; PULSE 81; O2SAT 100
[2024-04-17 10:35] VITALS: BP 146/69; PULSE 79; O2SAT 99
[2024-04-17] MEDS: LIDOCAINE HCL 2% 400 MG/20 ML MDV INJ (10:39)
[2024-04-17] MEDS: BUPIVACAINE HCL 0.25% PF 25 MG/10 ML VIAL 8 ML INJ (10:39)
--- NOTE | 2024-04-17 10:39 | W.PM.PROCNOT ---
Date of procedure: 04/17/24 Pre-op diagnosis: Pain due to lumbar spondylosis without myelopathy Post-op diagnosis: same as pre-op Procedure: Procedure: Bilateral L4-5, L5-S1 medial branch block Medications: Bupivacaine 0.25% 6cc The patient was seen and examined in the preoperative holding area.? An informed consent was obtained and placed on the chart.? The patient was brought to the medical procedure unit and placed in the prone position.? A timeout was completed verifying correct patient, procedure site, positioning, plan, and special equipment.? Using aseptic technique, the needle was placed at left L4. Under direct fluoroscopic visualization a Quincke-tipped spinal needle was advanced to the junction of the superior articulating process with the transverse process at the designated medial branch segment.? Preceded by negative aspiration, the above-mentioned injectate was placed in 1 mL aliquots.? The procedure was repeated at left L5, S1.? The needle was removed and insertion site was covered. The same procedure, at the same levels, was completed on the right side. The patient was taken to the postprocedural recovery area and monitored for an appropriate length of time before found suitable for discharge in the company of a responsible adult. Anesthesia: Local Surgeon: Tahir Sparrow Pathology: none sent Condition: stable Disposition: no change
== END 2024-04-17 10:46 | disposition home or self-care (01) ==
PROVIDERS: Family Provider Internal Medicine; PCP Internal Medicine; Visit Provider Anesthesiology
DX: M47.816 Spondylosis without myelopathy or radiculopathy, lumbar region (principal)
CPT/HCPCS: 64490; 64491; 64493; 64494; J0665

== ENCOUNTER 2024-04-19 13:01 | Outpatient (OUT) | payer MEDICARE, SELFPAY ==
--- NOTE | 2024-04-19 13:46 | P.CN_ITS ---
Consult Note: HPI Data of Consult Patient: known to practice within the last 3 years Requesting Physician: Symone Bales NP Primary Care Provider: RICHIE RAMOS DO Family Provider: RICHIE RAMOS DO Consult Narrative Reason for consult: f/u Narrative: Danielle Ash an 83 year old female presents for evaluation of chronic low back pain. has failed to benefit from >6 weeks of PT/provider guided HEP, heat, ice, tylenol, NSAIDs. Prior imaging consistent with lumbar spondylosis, lumbar DDD, and lumbar stenosis. pt utilizes baclofen and tylenol with mild relief. recently underwent right L4-5 L5-S1 TFESI with >50% improvement in radicular pain. Pt continues to report moderate to severe low back pain, today 2/10 increasing to 10/10 with standing and walking. Recently underwent bilateral L4/5 L5/S1 facet medial branch block #1 with >90% improvement in pain and functional ability immediately following and hours after the procedure. Preop pain up to 10/10 post op pain 0/10 per pt. cc:: CC: Symone Bales NP Review of Systems ROS Status of ROS 10 or more systems reviewed and unremark able except as noted in history and below Musculoskeletal Reports: back pain; Denies: extremity pain [facility] Medical History (Updated 04/05/24 @ 14:29 by Symone Bales NP) Low back pain ?M54.50 - Low back pain, unspecified (ICD-10) Heartburn ?R12 - Heartburn (ICD-10) Acid reflux ?K21.9 - Gastro-esophageal reflux disease without esophagitis (ICD-10) Obesity ?E66.9 - Obesity, unspecified (ICD-10) Asthma ?J45.909 - Unspecified asthma, uncomplicated (ICD-10) Irregular heart beat ?I49.9 - Cardiac arrhythmia, unspecified (ICD-10) Hypertension ?I10 - Essential (primary) hypertension (ICD-10) Surgical History History of cholecystectomy ?Z90.49 - Acquired absence of other specified parts of digestive tract (ICD- 10) H/O foot surgery ?Z98.890 - Other specified postprocedural states (ICD-10) H/O carpal tunnel repair ?Z98.890 - Other specified postprocedural states (ICD-10) H/O: hysterectomy ?Z90.710 - Acquired absence of both cervix and uterus (ICD-10) Meds Home Medications and Allergies Home Medications ?Medication ?Instructions ?Recorded ?Confirmed ?Type aspirin 81 mg capsule 81 mg PO DAILY 03/09/24 04/17/24 History atorvastatin 40 mg tablet 40 mg PO DAILY 03/09/24 04/17/24 History calcium 500 mg tablet mg 03/09/24 History cetirizine 5 mg tablet 5 mg PO BID PRN allergy symptoms 03/09/24 04/17/24 History cholecalciferol (vitamin D3) 50 2,000 unit PO DAILY 03/09/24 04/17/24 History mcg (2,000 unit) capsule magnesium 200 mg tablet 200 mg PO DAILY 03/09/24 04/17/24 History metformin 500 mg tablet 500 mg PO DAILY 03/09/24 04/17/24 History montelukast 10 mg tablet 10 mg PO DAILY 03/09/24 04/17/24 History (Singulair) spironolactone 25 mg tablet 25 mg PO BID 03/09/24 04/17/24 History Allergies Allergy/AdvReac Type Severity Reaction Status Date / Time morphine AdvReac Mild itch Verified 04/17/24 09:46 Exam Constitutional Documenting provider has reviewed patient's vital signs: yes Common normals: no apparent distress, oriented x3, healthy appearing, alert and well nourished General appearance: cooperative HENMT Common normals: normocephalic, hearing grossly normal bilaterally and moist oral mucous membranes Head and scalp: normocephalic Eye Common normals: PERRL Pupil: PERRL Neck & C-Spine Common normals: full ROM General: normal visual inspection Chest Common normals: inspection of chest normal Respiratory Common normals: normal respiratory effort, no retractions and no use of accessory muscles Back & Pelvis Lumbar spine/lower back: ROM limited, pain with ROM and straight leg raise negative bilaterally Sacroiliac joints: SI joint(s) abnormal Other: positive facet loading strength 5/5 in BLE sensation intact BLE Extremity Common normals: normal to inspection and full ROM Neuro Common normals: oriented x3, CN's II-XII intact bilaterally, moves all extremities, no focal motor deficits, no sensory deficits noted and deep tendon reflexes 2+ bilaterally Sensorium/orientation: alert Motor exam: strength 5/5 throughout and no movement abnormalities noted Psych Common normals: mental status grossly normal, thought process normal, cooperative, affect normal, speech normal and activity/motor behavior normal Speech: normal speech Thought process: normal thought process Results Additional Findings Additional findings: If on a controlled substance or opioids, I have checked an [place]AR[place] report on this patient and there are no aberrancies noted in the prescribing history.??If on a controlled substance or opioid a drug screen was completed and reviewed within the last year, and if there has not been a drug screen completed we ordered one today to monitor higher risk, state monitored pain medication use. As part of providing excellent, safe, comprehensive care, the following was completed at our patient's visit: 1. A medication reconciliation and review to ensure accurate knowledge of current/active medications, including asking our patients to inform us about any [id number] medications or herbal remedies/nutritional supplements/alter chemehuevi remedies. 2. A review to specifically ensure our patients have had annual screening for screening for depression, screening for tobacco use, and screening for unhealthy alcohol use. For concerning screenings had a discussion with the patient, provided patient education, and recommended follow-up with primary care provider when appropriate. If patient noted with a risk of falling, they received education on strength, gait, and balance training to prevent future risk of falling. Portions of this note may have been carried over from the previous visit and updated as appropriate. Please note this office utilizes paper charting in addition to the electronic medical record. A list of current medications, vitals, and PMH is available there as the clinical staff outside of myself do not have access to [employer] charting during the clinic day operations. As part of providing quality comprehensive care the current medications, vitals, and PMH were reviewed in the paper chart. Assessment and Plan Assessment and Plan (1) Lumbar spondylosis: Assessment and Plan: The patient has had over 3 months of moderate to severe low back pain with functional impairment and inadequate response to conservative care including NSAIDS (unless there are contraindication such as concurrent blood thinners), multiple oral or topical pain medications, and home exercise program/physical therapy.? Patient has completed >6 weeks of guided home exercise program and/or formal physical therapy program without relief of their symptoms.? I have reviewed the imaging of the lumbar spine and no red flags were identified.? The Oswestry Disability Index was completed, and the patient scored a 40%.? The patient noted the following:?? moderate to severe pain, pain impacting ADLs, pain impacting ability to walk and stand, pain impacting sleep We discussed the risks and benefits of the procedure with the patient, and we are NOT planning on using sedation as outlined in the guidelines from Medicare unless there is a documented reason that sedation would be strongly recommended.???The procedure will be completed with fluoroscopic guidance.? (2) Lumbar degenerative disc disease: (3) Lumbar stenosis with neurogenic claudication: Assessment and Plan: >50% improvement ongoing from recent right L4-5 L5-S1 TFESI Plan bilateral L4-5 L5-S1 facet medial branch block x2 working towards RFA continue current medications continue HEP as tolerated f/u after each injection
== END 2024-04-19 13:02 | disposition home or self-care (01) ==
LOC: PM 13:02
PROVIDERS: Family Provider Internal Medicine; PCP Internal Medicine; Visit Provider Nurse Practitioner
DX: M47.816 Spondylosis without myelopathy or radiculopathy, lumbar region (principal); M51.369 Other intervertebral disc degeneration, lumbar region without mention of lumbar back pain or lower extremity pain; M48.062 Spinal stenosis, lumbar region with neurogenic claudication
CPT/HCPCS: G0463

== ENCOUNTER 2024-05-15 10:16 | Day surgery (SDC) | payer MEDICARE, SELFPAY ==
[2024-05-15 10:56] VITALS: BP 158/81; PULSE 78; TEMP 36.7; O2SAT 100
[2024-05-15 11:35] VITALS: BP 147/65; PULSE 78; O2SAT 100
[2024-05-15] MEDS: LIDOCAINE HCL 2% 400 MG/20 ML MDV INJ (11:36)
[2024-05-15] MEDS: BUPIVACAINE HCL 0.25% PF 25 MG/10 ML VIAL 8 ML INJ (11:36)
[2024-05-15 11:37] VITALS: PULSE 74; O2SAT 100
[2024-05-15 11:38] VITALS: BP 137/63
--- NOTE | 2024-05-15 11:39 | W.PM.PROCNOT ---
Date of procedure: 05/15/24 Pre-op diagnosis: Pain due to lumbar spondylosis without myelopathy Post-op diagnosis: same as pre-op Procedure: Procedure: Bilateral L4-5, L5-S1 medial branch block Medications: Bupivacaine 0.25% 6cc The patient was seen and examined in the preoperative holding area.? An informed consent was obtained and placed on the chart.? The patient was brought to the medical procedure unit and placed in the prone position.? A timeout was completed verifying correct patient, procedure site, positioning, plan, and special equipment.? Using aseptic technique, the needle was placed at left L4. Under direct fluoroscopic visualization a Quincke-tipped spinal needle was advanced to the junction of the superior articulating process with the transverse process at the designated medial branch segment.? Preceded by negative aspiration, the above-mentioned injectate was placed in 1 mL aliquots.? The procedure was repeated at left L5, S1.? The needle was removed and insertion site was covered. The same procedure, at the same levels, was completed on the right side. The patient was taken to the postprocedural recovery area and monitored for an appropriate length of time before found suitable for discharge in the company of a responsible adult. Anesthesia: Local Surgeon: Tahir Sparrow Pathology: none sent Condition: stable Disposition: no change
== END 2024-05-15 11:44 | disposition home or self-care (01) ==
PROVIDERS: Family Provider Internal Medicine; PCP Internal Medicine; Visit Provider Anesthesiology
DX: M47.816 Spondylosis without myelopathy or radiculopathy, lumbar region (principal); M54.50 Low back pain, unspecified
CPT/HCPCS: 64493; 64494; J0665

== ENCOUNTER 2024-05-17 13:06 | Outpatient (OUT) | payer MEDICARE, SELFPAY ==
--- NOTE | 2024-05-17 13:33 | P.CN_ITS ---
Consult Note: HPI Data of Consult Patient: known to practice within the last 3 years Requesting Physician: Symone Bales NP Primary Care Provider: RICHIE RAMOS DO Family Provider: RICHIE RAMOS DO Consult Narrative Reason for consult: f/u Narrative: Danielle Ash an 83 year old female presents for evaluation of chronic low back pain. has failed to benefit from >6 weeks of PT/provider guided HEP, heat, ice, tylenol, NSAIDs. Prior imaging consistent with lumbar spondylosis, lumbar DDD, and lumbar stenosis. pt utilizes baclofen and tylenol with mild relief. recently underwent right L4-5 L5-S1 TFESI with >50% improvement in radicular pain. Pt continues to report moderate to severe low back pain, today 1/10 increasing to 10/10 with standing and walking. Recently underwent bilateral L4/5 L5/S1 facet medial branch block #1 and #2 with >80% improvement in pain and functional ability immediately following and hours after the procedure. Preop pain up to 10/10 post op pain 0/10 per pt. cc:: CC: Symone Bales NP Review of Systems ROS Status of ROS 10 or more systems reviewed and unremark able except as noted in history and below Musculoskeletal Reports: back pain; Denies: extremity pain PFSH [facility] Medical History (Updated 04/05/24 @ 14:29 by Symone Bales NP) Low back pain ?M54.50 - Low back pain, unspecified (ICD-10) Heartburn ?R12 - Heartburn (ICD-10) Acid reflux ?K21.9 - Gastro-esophageal reflux disease without esophagitis (ICD-10) Obesity ?E66.9 - Obesity, unspecified (ICD-10) Asthma ?J45.909 - Unspecified asthma, uncomplicated (ICD-10) Irregular heart beat ?I49.9 - Cardiac arrhythmia, unspecified (ICD-10) Hypertension ?I10 - Essential (primary) hypertension (ICD-10) Surgical History History of cholecystectomy ?Z90.49 - Acquired absence of other specified parts of digestive tract (ICD- 10) H/O foot surgery ?Z98.890 - Other specified postprocedural states (ICD-10) H/O carpal tunnel repair ?Z98.890 - Other specified postprocedural states (ICD-10) H/O: hysterectomy ?Z90.710 - Acquired absence of both cervix and uterus (ICD-10) Meds Home Medications and Allergies Home Medications ?Medication ?Instructions ?Recorded ?Confirmed ?Type aspirin 81 mg capsule 81 mg PO DAILY 03/09/24 05/15/24 History atorvastatin 40 mg tablet 40 mg PO DAILY 03/09/24 05/15/24 History calcium 500 mg tablet mg 03/09/24 History cetirizine 5 mg tablet 5 mg PO BID PRN allergy symptoms 03/09/24 05/15/24 History cholecalciferol (vitamin D3) 50 2,000 unit PO DAILY 03/09/24 05/15/24 History mcg (2,000 unit) capsule magnesium 200 mg tablet 200 mg PO DAILY 03/09/24 05/15/24 History metformin 500 mg tablet 500 mg PO DAILY 03/09/24 05/15/24 History montelukast 10 mg tablet 10 mg PO DAILY 03/09/24 05/15/24 History (Singulair) spironolactone 25 mg tablet 25 mg PO BID 03/09/24 05/15/24 History Allergies Allergy/AdvReac Type Severity Reaction Status Date / Time morphine AdvReac Mild itch Verified 05/15/24 11:00 Exam Constitutional Documenting provider has reviewed patient's vital signs: yes Common normals: no apparent distress, oriented x3, healthy appearing, alert and well nourished General appearance: cooperative [facility] Common normals: normocephalic, hearing grossly normal bilaterally and moist oral mucous membranes Head and scalp: normocephalic Eye Common normals: PERRL Pupil: PERRL Neck & C-Spine Common normals: full ROM General: normal visual inspection Chest Common normals: inspection of chest normal Respiratory Common normals: normal respiratory effort, no retractions and no use of accessory muscles Back & Pelvis Lumbar spine/lower back: ROM limited, pain with ROM and straight leg raise negative bilaterally Sacroiliac joints: SI joint(s) abnormal Other: positive facet loading strength 5/5 in BLE sensation intact BLE Extremity Common normals: normal to inspection and full ROM Neuro Common normals: oriented x3 Sensorium/orientation: alert Motor exam: strength 5/5 throughout and no movement abnormalities noted Psych Common normals: mental status grossly normal, thought process normal, cooperative, affect normal, speech normal and activity/motor behavior normal Speech: normal speech Thought process: normal thought process Results Additional Findings Additional findings: If on a controlled substance or opioids, I have checked an OARRS report on this patient and there are no aberrancies noted in the prescribing history.??If on a controlled substance or opioid a drug screen was completed and reviewed within the last year, and if there has not been a drug screen completed we ordered one today to monitor higher risk, state monitored pain medication use. As part of providing excellent, safe, comprehensive care, the following was completed at our patient's visit: 1. A medication reconciliation and review to ensure accurate knowledge of current/active medications, including asking our patients to inform us about any [id number] medications or herbal remedies/nutritional supplements/alternative remedies. 2. A review to specifically ensure our patients have had annual screening for screening for depression, screening for tobacco use, and screening for unhealthy alcohol use. For concerning screenings had a discussion with the patient, provided patient education, and recommended follow-up with primary care provider when appropriate. If patient noted with a risk of falling, they received education on strength, gait, and balance training to prevent future risk of falling. Portions of this note may have been carried over from the previous visit and updated as appropriate. Please note this office utilizes paper charting in addition to the electronic medical record. A list of current medications, vitals, and PMH is available there as the clinical staff outside of myself do not have access to [employer] charting during the clinic day operations. As part of providing quality compr ehensive care the current medications, vitals, and PMH were reviewed in the paper chart. Assessment and Plan Assessment and Plan (1) Lumbar spondylosis: Assessment and Plan: The patient has had over 3 months of moderate to severe low back pain with functional impairment and inadequate response to conservative care including NSAIDS (unless there are contraindication such as concurrent blood thinners), multiple oral or topical pain medications, and home exercise program/physical therapy.? Patient has completed >6 weeks of guided home exercise program and/or formal physical therapy program without relief of their symptoms.? I have reviewed the imaging of the lumbar spine and no red flags were identified.? The Oswestry Disability Index was completed, and the patient scored a 32%.? The patient noted the following:?? moderate to severe pain, pain impacting ADLs, pain impacting ability to walk and stand, pain impacting sleep We discussed the risks and benefits of the procedure with the patient.??The procedure will be completed with fluoroscopic guidance.? (2) Lumbar degenerative disc disease: (3) Lumbar stenosis with neurogenic claudication: Assessment and Plan: >50% improvement ongoing from recent right L4-5 L5-S1 TFESI Plan bilateral L4-5 L5-S1 facet medial branch RFA with 10mg po valium 30-60mins prior to RFA continue current medications continue HEP as tolerated f/u 1 month after RFA
== END 2024-05-17 13:07 | disposition home or self-care (01) ==
LOC: PM 13:07
PROVIDERS: Family Provider Internal Medicine; PCP Internal Medicine; Visit Provider Nurse Practitioner
DX: M47.816 Spondylosis without myelopathy or radiculopathy, lumbar region (principal); M51.369 Other intervertebral disc degeneration, lumbar region without mention of lumbar back pain or lower extremity pain; M48.062 Spinal stenosis, lumbar region with neurogenic claudication
CPT/HCPCS: G0463

== ENCOUNTER 2024-05-29 10:19 | Day surgery (SDC) | payer MEDICARE, SELFPAY ==
[2024-05-29 10:54] VITALS: BP 133/79; PULSE 71; TEMP 36.6; O2SAT 99
[2024-05-29 11:47] VITALS: BP 135/65; BP 136/67; PULSE 67; PULSE 68; O2SAT 95; O2SAT 96
[2024-05-29] MEDS: METHYLPREDNISOLONE ACETATE 40 MG/ML VIAL INJ (11:49)
[2024-05-29] MEDS: LIDOCAINE HCL 2% 400 MG/20 ML MDV 16 ML INJ (11:49)
[2024-05-29] MEDS: BUPIVACAINE HCL 0.25% PF 25 MG/10 ML VIAL 4 ML INJ (11:49)
--- NOTE | 2024-05-29 11:58 | P.ON_ITS ---
Date of procedure: 05/29/24 Pre-op diagnosis: Pain due to lumbar spondylosis without myelopathy Post-op diagnosis: same as pre-op Procedure: Procedure: Bilateral L4-5, L5-S1 radiofrequency ablation Medications: Bupivacaine 0.25% 6cc, lidocaine 2% 6cc, depomedrol 80mg The patient was seen and examined in the preoperative holding area.? The site was marked.? Written informed consent was obtained and placed on the chart.? The patient was brought to the medical procedure unit and placed in the prone position.? A timeout was completed verifying correct patient, procedure, positioning, and special requirements.? The skin overlying the target points, the designated medial branch, were prepped and draped in the usual sterile fashion.? The target point was achieved with a 20-gauge 15 cm with a 10 mm curved active tip radiofrequency cannula under direct fluoroscopic visualizati on.? The needle was inserted at level L4 on the right side. Needle tip position was confirmed with lateral fluoroscopic position.? Motor stimulation was carried out at 2 Hz up to 5 volts with the absence of extremity activity.? This was repeated at level L5, S1 on right side.?? Sensory stimulation was carried out.? Concordant pain was realized at the above- mentioned sites.? Then radiofrequency lesioning was carried out times 90 seconds at 80 degrees times 2 lesions at each level.? The radiofrequency probe was removed prior to cannula removal.? The above-mentioned injectate was placed in 1 mL increments.? The needle was removed. The same procedure, with the same steps, was then completed on the left side at the same levels. Insertion sites were covered.? The patient was taken to the postoperative recovery area and monitored for an appropriate length of time before being found suitable for discharge in the company of a responsible adult. Anesthesia: Local Surgeon: Tahir Sparrow Pathology: none sent Condition: stable Disposition: no change
== END 2024-05-29 12:03 | disposition home or self-care (01) ==
LOC: SURGOUT 10:20
PROVIDERS: Family Provider Internal Medicine; PCP Internal Medicine; Visit Provider Anesthesiology
DX: M47.816 Spondylosis without myelopathy or radiculopathy, lumbar region (principal); M54.50 Low back pain, unspecified
CPT/HCPCS: 64635; 64636; J0665; J1010

== ENCOUNTER 2024-06-28 12:41 | Outpatient (OUT) | payer MEDICARE, SELFPAY ==
--- OUTSIDE RECORDS SUMMARY | 2024-06-28 12:43 | XMS_ITS | Clinical Summary ---
Author Organization [facility] Address [address] [place] [address] Care Team Providers Care International Accounting Manager Name Role Phone Molina Chang Primary Care Provider [phone] Allergies Active Allergy Reactions Criticality Noted Date Comments Morphine 06/05/2012 Medications baclofen (LIORESAL) 10 MG tablet Take 1 tablet by mouth nightly Active metFORMIN (GLUCOPHAGE) 500 MG tablet Take 1 tablet by mouth nightly Active aspirin 81 MG tablet Take 1 tablet by mouth daily Active lactulose (CEPHULAC) 10 g packet Take 1 packet by mouth 2 times daily Active atorvastatin (LIPITOR) 40 MG tablet Take 1 tablet by mouth daily 30 tablet 3 1 Active Additional Information Patient taking differently:40 mg OralNIGHTLY, Informant: Self, Reported on 04/04/2023 NONFORMULARY [facility] Vitamin daily Active montelukast (SINGULAIR) 10 MG tablet Take 1 tablet by mouth nightly at bedtime 4 Active rOPINIRole (REQUIP) 0.5 MG tablet Take 1 tablet by mouth daily Active cetirizine-psue doephedrine (ZYRTEC-D) 5-120 MG per extended release tablet Take 1 tablet by mouth daily Active spironolactone (ALDACTONE) 25 MG tablet Take 2 tablets by mouth daily 4 Active Active Problems Problem Noted Date Diagnosed Date Chest wall pain 04/04/2023 Type 2 diabetes mellitus, wi thout long-term current use of insulin 04/04/2023 Hypertension 04/04/2023 Angina, class IV 04/04/2023 PSVT (paroxysmal supraventricular tachycardia) 0 04/04/2023 History of TIA (transient ischemic attack) 04/04 Stroke-like symptoms 09/02/2020 TGA (transient global amnesia) 09/02/2020 TIA (transient ischemic attack) 04/17/2020 Cerebral aneurysm Altered mental status Received intravenous tissue plasminogen activator (tPA) in emergency department Acute encephalopathy Resolved Problems Problem Noted Date Diagnosed Date Resolved Date Age-related nuclear cataract of right eye 12/20/2017 12/20/2017 Encounters Date Type Department Care Team Description 05/15/2024 1:34 PM EDT - 05/15/2024 11:59 PM EDT Hospital Encounter [facility] [address] [place] [address] [id number] Discharge Disposition: Home or Self Care 05/10/2024 Orders Only [facility] Admitting [address] [place], [place] [id number] Molina Chang DO from Last 3 Months Immunizations Immunization Administration Dates Next Due Influenza Vaccine, unspecified formulation 11/26 Zoster Live (Zostavax) 01/26/2017 Family History Medical History Relation Name Comments Cancer Brother Ovarian Cancer Sister 2 Relation Name Status Comments Brother Father Maternal Grandfather Maternal Grandmother Mother Paternal Grandfather Paternal Grandmother Sister 1 Alive Sister 2 Social History Tobacco Use Types Packs/Day Years Used Date Smoking Tobacco: Never Smokeless Tobacco: Never Tobacco Cessation:Counseling Given: No Alcohol Use Standard Drinks/Week Comments No 0 (1 standard drink = 0.6 oz pur e alcohol) [facility] Utilities Answer Date Recorded In the past 12 months has [employer] electric, gas, oil, or water company threatened to shut off services in your home? No 04/04/2023 AUDIT-C Answer Date Recorded Q1: How often do you have a drink containing alc ohol? Never 04/04/2023 Average Number of Drinks Not on file 024 Frequency of Binge Drinking Not on file 03/12 PHQ-2 Answer Date Recorded PHQ-2 Score 2 05/11/2018 Hunger Vital Sign Answer Date Recorded Within the past 12 months, y ou worried that your food would run out before you got the money to buy more. Never true 04/04/19 24 Within the past 12 months, t he food you bought just didn't last and you didn't have money to get more. Never true 04/04/2023 PRAPARE - Transportation Answer Date Re corded In the past 12 months, has l ack of transportation kept you from medical appointments or from getting medications? No 03/12 In the past 12 months, has l ack of transportation kept you from meetings, work, or from getting things needed for daily living? No 04/04/2023 Housing Stability Vital Sign Answer Alejandro e Recorded In the last 12 months, was t here a time when you were not able to pay the mortgage or rent on time? No 04/04/2023 In the last 12 months, how many places have you lived? 1 04/04/2023 In the last 12 months, was t here a time when you did not have a steady place to sleep or slept in a group home (including now)? No 04/04/2023 Interpersonal Safety ([facility] HRSN) Answer Date Recorded How often does anyone, petr lantigua family and friends, physically hurt you? Never 04/04/2023 How often does anyone, petr lantigua family and friends, scream or curse at you? Not on file 04/04/2023 How often does anyone, petr lantigua family and friends, insult or talk down to you? Not on file 04/04/2023 How often does anyone, petr lantigua family and friends, threaten you with harm? Not on file 04/04/2023 Food Insecurity Answer Date Recorded Within the past 12 months, y ou worried that your food would run out before you got the money to buy more. 1 04/04/2023 Within the past 12 months, t he food you bought just didn't last and you didn't have money to get more. 1 04/04/2023 Interpersonal Safety Domain Source: IP Abuse Scr eening Answer Date Recorded Physical abuse Denies 01/21/2024 Verbal abuse Denies 01/21/2024 Emotional abuse Denies 01/21/2024 Financial abuse Denies 01/21/2024 Sexual abuse Denies 01/21/2024 Comments No Sex and Gender Information Value Date Recorded Sex Assigned at Not on file Legal Sex Female 5:08 PM EST Gender Identity Not on file Sexual Orientation Not on file Last Filed Vital Signs Vital Sign Reading Time Taken Comments Blood Pressure 183/71 03/26/2024 6:12 PM EST Pulse 70 03/26/2024 6:12 PM EST Temperature 36.3 C (97.4 F) 03/26/2024 3:54 PM EST Respiratory Rate 14 03/26/2024 6:12 PM EST Oxygen Saturation 99% 03/26/2024 6:12 PM EST Inhaled Oxygen Concentration - - Weight 82.6 kg (182 lb 3.2 oz) 10/25/2023 2:23 P M EDT Height 165.1 cm (5' 5 ) 10/25/2023 2:23 PM EDT Body Mass Index 30.32 10/25/2023 2:23 PM EDT Plan of Treatment Upcoming Encounters Date Type Department Care Team (Late st Contact Info) Description 07/19/2024 9:00 AM EDT Office Visit [facility] Part of [address] [phone] Apurva Vu, WEIGHT AND BALANCE CONTROL AGENT - SENIOR OFFICE ASSISTANT [address] [place] [address] 6 month Health Maintenance Due Date Last Done Comments Depression Screen 1952 Diabetic Alb to Cr ratio (uACR) test 11/06/1959 DTaP/Tdap/Td vaccine (1 - Tdap) 1960 Pneumococcal 50+ years Vaccine (1 of 2 - PCV) 1959 Annual Wellness Visit (Medicare) 01/04/2023 COVID-19 Vaccine (4 - season) 2024 11/08/2023, 01/23/2022, 02/03/2021 Flu vaccine (Season Ended) 2024 11/26/2017 GFR test (Diabetes, CKD 3-4, OR last GFR 15-59) 05/15/2025 05/15/2024, 03/26/2024, 10/22/2023, Additional history exists Lipids 05/15/2025 05/15/2024, 10/09, 04/05/2023, Additional history exists DEXA (modify frequency per FRAX score) Completed 12/07/2012 Respiratory Syncytial Virus (RSV) or age 60 yrs+ Completed 11/08/2023 Shingles vaccine Completed 11/08/2023, 09/2022, 01/26/2017 Hepatitis A vaccine Aged Out No longe r eligible based on patient's age to complete this topic Hepatitis B vaccine Aged Out No longe r eligible based on patient's age to complete this topic Hib vaccine Aged Out No longer eligi ble based on patient's age to complete this topic Meningococcal (ACWY) vaccine Aged Out No longer eligible based on patient's age to complete this topic Meningococcal B vaccine Aged Out No l onger eligible based on patient's age to complete this topic Polio vaccine Aged Out No longer elig ible based on patient's age to complete this topic Medical Devices Implanted Type Area Community Health Nurse Staff Device Identifier Shelf Expiration Date Model / Serial / Lot Lens Iol Envista Mx60 25.0d - [id number] Implanted:Qty: 1 on 12/20/2017 by Rocky Dee DO at [facility] Right: Eye BAUSCH [employer] LOMB-PMM 09/08/2019 MX60 25.0D / [id number] / Procedures Procedure Name Priority Date/Time Associated Diagnosis Comments VITAMIN D 25 HYDROXY Routine 05/15/2024 1:47 PM EDT TSH Routine 05/15/2024 1:47 PM EDT ELECTROLYTE PANEL Routine 05/15/2024 1:4 7 PM EDT HEPATIC FUNCTION PANEL Routine 05/15/2024 1:47 PM EDT LIPID PANEL Routine 05/15/2024 1:47 PM EDT HEMOGLOBIN A1C Routine 05/15/2024 1:47 PM EDT D-DIMER, QUANTITATIVE Routine 05/15/2024 1:47 PM EDT CBC Routine 05/15/2024 1:47 PM EDT BUN & CREATININE Routine 05/15/2024 1:47 PM EDT BRAIN NATRIURETIC PEPTIDE Routine 05/15/2024 1:47 PM EDT DEXA BONE DENSITY 2 SITES Routine 12/07/2012 1:36 PM EDT from Last 3 Months or Most Recently Relevant to Health Maintenance Results * (ABNORMAL) BUN & Creatinine (05/15/2024 1:47 PM EDT) BUN 29(H) 8 - 23 mg/dL 05/15/2024 1:47 PM EDT [facility] Creatinine 1.2(H) 0.50 - 0.90 mg/dL 05/15/2024 1:47 PM EDT [facility] Est, Glom Filt Rate 44(L) >60 mL/min/1.7 3m2 05/15/2024 1:47 PM EDT [facility] Comment: These results are not intended for [...] following therapy that affects renal tubular secretion. 05/15/2024 1:47 PM EDT 05/15/2024 1:48 PM EDT us Molina Chang DO CHEMISTRY ORDERABLES Final R esult [facility] [address] [id number] [phone] * Vitamin D 25 Hydroxy (05/15/2024 1:47 PM EDT) Vit D, 25-Hydroxy 59.1 30.0 - 100.0 ng/mL 05/15/2024 1:47 PM EDT [facility] Comment: Reference Range: Vitamin D status Range Deficiency <20 ng/mL Mild Deficiency 20-30 ng/mL Sufficiency 30-100 ng/mL Toxicity >100 ng/mL 05/15/2024 1:47 PM EDT 05/15/2024 1:48 PM EDT Molina Chang DO CHEMISTRY ORDERABLES Final R esult [facility] [address] [place] [address], [facility] [phone] [place] [id number], [facility] [phone] * (ABNORMAL) D-Dimer, Quantitative (05/15/2024 1:47 PM EDT) Pathologist [facility] D-Dimer, Quant 0.72(H) 0.00 - 0.59 ug/mL FEU 05/15/2024 1:47 PM EDT [facility] Comment: When combined with a low clinical [...] more prevalent in patients with distal DVT. 05/15/2024 1:47 PM EDT 05/15/2024 1:48 PM EDT Molina Chang DO HEMATOLOGY ORDERABLES Final Result [facility] [address] [phone] * (ABNORMAL) CBC (05/15/2024 1:47 PM EDT) WBC 6.3 3.5 - 11.3 k/uL 05/15/2024 1:47 PM EDT [facility] RBC 3.67(L) 3.95 - 5.11 m/uL 05/15/2024 1:47 PM EDT [facility] Hemoglobin 11.0(L) 11.9 - 15.1 g/dL 05/15/2024 1:47 PM EDT [facility] Hematocrit 35.0(L) 36.3 - 47.1 % 05/15/2024 1:47 PM EDT [facility] MCV 95.4 82.6 - 102.9 fL 05/15/2024 1:47 PM EDT [facility] MCH 30.0 25.2 - 33.5 pg 05/15/2024 1:47 PM EDT [facility] MCHC 31.4 28.4 - 34.8 g/dL 05/15/2024 1:47 PM EDT [facility] RDW 14.2 11.8 - 14.4 % 05/15/2024 1:47 PM EDT [facility] Platelets 227 138 - 453 k/uL 05/15/2024 1:47 PM EDT [facility] MPV 9.6 8.1 - 13.5 fL 05/15/2024 1:47 PM EDT [facility] NRBC Automated 0.0 0.0 per 100 WBC 05/15/2024 1:47 PM EDT [facility] 05/15/2024 1:47 PM EDT 05/15/2024 1:48 PM EDT us Molina Ernstbridgett DO HEMATOLOGY ORDERABLES Final Result Performing Organization Address [facility]/ZIP Co de Phone Number [facility] [address] [place] [address] * TSH (05/15/2024 1:47 PM EDT) TSH 2.56 0.27 - 4.20 uIU/mL 05/15/2024 1:47 PM EDT [facility] 05/15/2024 1:47 PM EDT 05/15/2024 1:48 PM EDT Molina Chang DO CHEMISTRY ORDERABLES Final R esult Performing Organization Address [facility]/ZIP Co de Phone Number [facility] [address] [place] [address] * (ABNORMAL) Brain Natriuretic Peptide (05/15/2024 1:47 PM EDT) NT Pro-BNP 652(H) 0 - 450 pg/mL 05/15/2024 1:47 PM EDT [facility] 05/15/2024 1:47 PM EDT 05/15/2024 1:48 PM EDT Molina Chang DO CHEMISTRY ORDERABLES Final R esult Performing Organization Address [facility]/ZIP Co de Phone Number [facility] [address] [place] [address] * Hemoglobin A1C (05/15/2024 1:47 PM EDT) Hemoglobin A1C 5.6 4.0 - 6.0 % 05/15/2024 1:47 PM EDT [facility] Estimated Avg Glucose 114 mg/dL 05/15/2024 1:47 PM EDT [facility] Comment: The ADA and AACC recommend providing the estimated average glucose result to permit better patient understanding of their HBA1c result. 05/15/2024 1:47 PM EDT 05/15/2024 1:48 PM EDT Molina Chang DO CHEMISTRY ORDERABLES Final R esult [facility] [address] [place] [address], [facility] [phone] [facility] [address] [place] [address], [facility] [phone] * (ABNORMAL) Hepatic Function Panel (05/15/2024 1:47 PM EDT) Albumin 4.1 3.5 - 5.2 g/dL 05/15/2024 1:47 PM EDT [facility] Alkaline Phosphatase 86 35 - 104 U/L 05/15/2024 1:47 PM EDT [facility] ALT 16 10 - 35 U/L 05/15/2024 1:47 PM EDT [facility] AST 23 10 - 35 U/L 05/15/2024 1:47 PM EDT [facility] Total Bilirubin 0.4 0.00 - 1.20 mg/dL 05/15/2024 1:47 PM EDT [facility] Bilirubin, Direct 0.2 0.00 - 0.30 mg/dL 05/15/2024 1:47 PM EDT [facility] Bilirubin, Indirect 0.2 0.0 - 1.0 mg/dL 05/15/2024 1:47 PM EDT [facility] Total Protein 6.3(L) 6.6 - 8.7 g/dL 05/15/2024 1:47 PM EDT [facility] Albumin/Globulin Ratio 1.9 1.0 - 2.5 05/15/2024 1:47 PM EDT [facility] 05/15/2024 1:47 PM EDT 05/15/2024 1:48 PM EDT Molina Winslow GenoSpacebridgett Emulis CHEMISTRY ORDERABLES Final R esult Performing Organization Address [facility]/ZIP Co de Phone Number [facility] [address] [place] [address], [facility] [phone] * Lipid Panel (05/15/2024 1:47 PM EDT) Cholesterol, Total 122 0 - 199 mg/dL 05/15/2024 1:47 PM EDT [facility] Comment: Cholesterol Guidelines: <200 Desirable 200-240 Borderline >240 Undesirable HDL 80 >40 mg/dL 05/15/2024 1:47 PM EDT [facility] Comment: HDL Guidelines: <40 Undesirable 40-59 Borderline >59 Desirable LDL Cholesterol 34 0 - 100 mg/dL 05/15/2024 1:47 PM EDT [facility] Comment: LDL Guidelines: <100 Desirable 100-129 Near to/above Desirable 130-159 Borderline >159 Undesirable Direct (measured) LDL and calculated LDL are not interchangeable tests. Chol/HDL Ratio 1.5 05/15/2024 1:47 PM EDT [facility] Triglycerides 41 <150 mg/dL 05/15/2024 1:47 PM EDT [facility] Comment: Triglyceride Guidelines: <150 Desirable 150-199 Borderline 200-499 High >499 Very high Based on AHA Guidelines for fasting triglyceride, November 2011. VLDL 8 1 - 30 mg/dL 05/15/2024 1:47 PM EDT [facility] 05/15/2024 1:47 PM EDT 05/15/2024 1:48 PM EDT Molina Winslow GenoSpacebridgett Emulis CHEMISTRY ORDERABLES Final R esult [facility] [address] [place] [address], [facility] [phone] [facility] [address] [place] [address], [facility] [phone] * Electrolyte Panel (05/15/2024 1:47 PM EDT) Sodium 140 136 - 145 mmol/L 05/15/2024 1:47 PM EDT [facility] Potassium 4.6 3.7 - 5.3 mmol/L 05/15/2024 1:47 PM EDT [facility] Chloride 106 98 - 107 mmol/L 05/15/2024 1:47 PM EDT [facility] CO2 23 20 - 31 mmol/L 05/15/2024 1:47 PM EDT [facility] Anion Gap 11 9 - 16 mmol/L 05/15/2024 1:47 PM EDT [facility] 05/15/2024 1:47 PM EDT 05/15/2024 1:48 PM EDT Molina Chang DO CHEMISTRY ORDERABLES Final R esult [facility] [address] [phone] * DEXA Bone Density 2 Sites (12/07/2012 1:36 PM EDT) Anatomical Region Laterality Modality Other 12/07/2012 1:36 PM EDT Narrative 12/07/2012 3:11 PM EDT FINAL Procedure: TDD Dec 07 2012 1:36PM [id number] LUMBAR HIP COMBINATION DEXA Reason for Exam: ^screening for osteoporosis FULL RESULT: REPORT: DEXA BONE DENSITOMETRY: REASON FOR EXAMINATION: Postmenopause. Bone mineral density of lumbar spine is 1.206 gm/cm2 with a T-score of 0.2. Bone mineral density of neck of both right and left femur is 0.908 and 0.991 gm/cm2 with a T-score of -0.9 and -0.3 respectively. IMPRESSION: BONE MINERAL DENSITY OF BOTH LUMBAR SPINE AND HIP IS NORMAL. In order to promptly notify physicians concerning their patients, this unconfirmed document is being released. It is not considered final until reviewed and signed. Electronically Signed by Quinton Hicks M.D. 12/07/2012 03:11 P DANISH/jaelyn P P CC: ERWIN Valenzuela D.O. IMPRESSION: SEE ABOVE. Transcribed by: [facility] on Dec 07 2012 3:11P Read by: QUINTON HICKS [id number] on Dec 07 2012 2:07P Electronically Signed by: DR. QUINTON HICKS on: Dec 07 2012 3:11P Procedure Note Quinton Hicks MD - 12/07/2012 FINAL Procedure: TDD Dec 07 2012 1:36PM [id number] LUMBAR HIP COMBINATIONDEXA Reason for Exam: ^screening for osteoporosis FULL RESULT: REPORT: DEXA BONE DENSITOMETRY: REASON FOR EXAMINATION: Postmenopause. Bone mineral density of lumbar spine is 1.206 gm/cm2 with a T-score of 0.2. Bone mineral density of neck of both right and left femur is 0.908 and 0.991 gm/cm2 with a T-score of -0.9 and -0.3 respectively. IMPRESSION: BONE MINERAL DENSITY OF BOTH LUMBAR SPINE AND HIP IS NORMAL. In order to promptly notify physicians concerning their patients, this unconfirmed document is being released. It is not considered finaluntil reviewed and signed. Electronically Signed by Quinton Hicks M.D. 12/07/2012 03:11 P DP/jaelyn P P CC: ERWIN Valenzuela D.O. IMPRESSION: SEE ABOVE. Transcribed by: [facility] on Dec 07 2012 3:11P Read by: QUINTON HICKS [id number] on Dec 07 2012 2:07P Electronically Signed by: DR. QUINTON HICKS on: Dec 07 2012 3:11P Mckenzie Thao APRN - ERWIN IMG DEXA ORDERAB LES Edited Result - Final from Last 3 Months or Most Recently Relevant to Health Maintenance Insurance MEDICARE [facility] MEDICARE Advance Directives Documents on File Type Date Recorded Patient Pump Erector Expl anation ACP-Do Not Resuscitate 04/05/2023 1:36 PM DNR-CCA * DNR-CCA (Latest Code Status on File) Date Activated Date Inactivated Comments 04/05/2023 2:06 PM 04/05/2023 7:40 PM * Full Code Date Activated Date Inactivated Comments 04/04/2023 5:18 PM 04/05/2023 2:06 PM * Full Code Date Activated Date Inactivated Comments 09/02/2020 5:28 PM 09/05/2020 2:44 AM * Full Code Date Activated Date Inactivated Comments 09/02/2020 2:08 PM 09/02/2020 5:28 PM * Full Code Date Activated Date Inactivated Comments 09/02/2020 7:08 AM 09/02/2020 11:52 AM Healthcare Agents on File Name Relationship Healthcare Agent Relationship Communication Jose Palmer Spouse Primary Decision Maker Nely Bardales Grandchild Secondary Decision Maker Care Teams International Accounting Manager Relationship Specialty Start Date End Date Molina Chang DO [address] [place] [phone] PCP - General 06/05/12
--- OUTSIDE RECORDS SUMMARY | 2024-06-28 12:43 | XMS_ITS | Encounter Summary ---
Author Organization [facility] Address [address] [place] [address] Care Team Providers Care Plasterer Rough Name Role Phone Molina Chang DO Primary Care Provider [phone] Encounter Details Date Type Department Care Team (Late st Contact Info) Description 09/08/2021 Transcribe Orders [facility] [address] [place] [id number] Molina Chang DO [address] [place] [address] Social History Tobacco Use Types Packs/Day Years Used Date Smoking Tobacco: Never Smokeless Tobacco: Never Alcohol Use Standard Drinks/Week Comments No 0 (1 standard drink = 0.6 oz pur e alcohol) PHQ-2 Answer Date Recorded PHQ-2 Score 2 05/11/2018 Comments No Sex and Gender Information Value Date Recorded Sex Assigned at Not on file Legal Sex Female 5:08 PM EST Gender Identity Not on file Sexual Orientation Not on file documented as of this encounter Plan of Treatment Upcoming Encounters Date Type Department Care Team (Late st Contact Info) Description 07/19/2024 9:00 AM EDT Office Visit [facility] Part of [address] [phone] Apurva Vu, WIRE INSPECTOR - KRAFT MILL OPERATOR [address] [place] [address] [place] [address] 6 month documented as of this encounter Visit Diagnoses Not on filedocumented in this encounter Additional Health Concerns Infection Onset Date Last Indicated Resolved Time COVID-19 (Rule Out) 10/05/2021 10/05/2021 10/06/19 3:02 PM EDT COVID-19 (Rule Out) 04/04/2023 04/04/2023 04/04/19 24 2:31 PM EST Assessment Noted Time A fall risk assessment has been complete d for the patient 01/26/2018 8:32 AM EST A Body Mass Index follow-up plan has been documented for the patient 03/03/2021 1:30 PM EST documented as of this encounter Care Teams Plasterer Rough Relationship Specialty Start Date End Date Molina Chang DO [address] [place] [phone] PCP - General 06/05/12 documented as of this encounter
--- OUTSIDE RECORDS SUMMARY | 2024-06-28 12:49 | XMS_ITS | CCD ---
Author Organization [facility] Care Team Providers Care [facility] [employer] Name Role Phone Molina Ramos Primary Care Provider [phone] KRISTINA LOMAX Referring Unavailable VALONE, MOLINA L Primary Care Unavailable LISETH, ACOSTA I Admitting Unavailable LISETH, ACOSTA I Attending Unavailable VALONE, MOLINA L Primary Care Unavailable AHMEDJERICA S Consulting Unavailable AHMED, MOHAMMAMAN S Admitting Unavailable AHMEDJERICA S Attending Unavailable ValMolina urias DO Primary Care Provider Molina Ramos DO Primary Care Provider Valone Molina FLORES Primary Care Provider Valone , Molina Winslow Primary Care Provider [phone] VALONE, MOLINA L Primary Care Unavailable VALONE, [...] Unavailable VALONE, MOLINA L Primary Care Unavailable ALISSA MARX Referring Unavailable VALONE, MOLINA L Primary Care Unavailable VALONE, MOLINA L Referring Unavailable VALONE, MOLINA L Primary Care Unavailable VALONE, MOLINA L Referring Unavailable SHABNAM BAXTER Attending Unavailable VALONE, MOLINA L Primary Care Unavailable VALONE, MOLINA L Primary Care Unavailable VALONE, MOLINA L Referring Unavailable VALONE, MOLINA L Primary Care Unavailable VALONE, MOLINA L Referring Unavailable Gijohnitis , Tahir Foster Attending Unavailable Giedraitis , Tahir Foster Attending Unavailable Giedraitis , Tahir Foster Attending Unavailable Giedraitis , Tahir Foster Attending Unavailable Allergies Allergy Classification Reported Allergen(s) Allergy Type Date of Onset Reaction(s) Facility Opioid Agonists (3 sources) Morphine Drug Allergy 06-05-2012 [facility] (20 sources) Morphine Drug Allergy 06-05-2012 [facility] [employer] [place] Work Phone: Medications Current Medications Medication Drug [...] 1 tablet by mouth daily 0 Active cephalexin 500 mg oral capsule (1 source) Cephalosporin Antibacterial Start: 025 End: 025 take 1 capsule by mouth three times daily cephALEXin (KEFLEX) 500 MG capsule Take 1 capsule by mouth 3 times daily for 7 days 21 capsule 03/26/2024 04/02/2024 Active 12 hr cetirizine hydrochloride 5 mg / pseudoephedrine hydrochloride 120 mg extended release oral tablet (17 sources) alpha-Adrenergic Agonist, Histamine-1 Receptor Antagonist take [...] 1 tablet by ivory th once daily losartan (COZAAR) 25 MG tablet [...] capsule by mouth nightly 0 Active NONFORMULARY (18 sources) NONFORMULARY [facility] Vitamin daily Active NONFORMULARY [facility] Vitamin daily 0 Active ondansetron (ZOFRAN-ODT) disintegrating tablet 4 mg (1 source) Start: 09-02-2020 ondansetron (Z OFRAN-ODT) disintegrating tablet 4 mg polyethylene glycol [id number] mg powder for oral solution (2 sources) Osmotic Laxative Start: 09-02-2020 17 g, Oral, D AILY PRN, Constipation, Starting on 7/26/21 at 1408 First line therapy for constipation Start: 04-17-2020 17 g, Oral, DA DEBBIE PRN, Constipation, Starting 04/17/20 at 2035 First line therapy for constipation [...] 12.5 mg rOPINIRole 0.5 mg oral tablet (17 sources) Nonergot Dopamine Agonist take 1 tablet by mouth once daily rOPINIRole (REQUIP) 0.5 MG tablet Take 1 tablet by mouth daily Active spironolactone 25 mg oral tablet (17 sources) Aldosterone Antagonist Start: 08-13-19 take 2 [...] (20 sources) take 1 capsule by mo [facility] once daily vitamin E 400 UNIT capsule [...] 2 tablet, Oral, ONCE, 1 dose, On 01/21/24 at 1545, Maximum dose of acetaminophen is [...] dextrose 5 % 50 mL IVPB (premix) cefTRIAXone (ROCEPHIN) 1,000 mg in sterile water 10 mL IV syringe (1 source) Start: 03-26-2024 End: 03-26-2024 take 100 mg intravenously once 1,000 mg, IntraVENous, ONCE, On Wed03/26/24 at 1830, For 1 dose, Administer as slow IV Push over 5 mins Reconstitute 1 g vials with 9.6 mL of designated diluent to produce a 100 mg/mL solution. clopidogrel 75 mg oral tablet (10 sources) [...] source) Unfractionated Heparin, Anti-coagulant Start: 09-02-2020 End: 09-02-2020 heparin (porcine) injection iodixanol (VISIPAQUE) injection 64 mL (1 source) Start: 09-02-2020 End: 09-02-2020 iodixanol (VISIPAQUE) injection 64 mL iopamidol (ISOVUE-370) 76 % injection 75 mL (3 sources) Start: 03-26-2024 End: 03-26-2024 take 1 dose intravenously once 75 mL, IntraVENous, IMG ONCE PRN, 1 dose, Starting on 03/26/24 at 1451, Until 03/26/24 at 1452, Other Start: 10-05-2021 End: 10-05-2021 iopamidol (ISOVUE-370) 76 [...] every IV line use, Starting Wed04/17/20 at 2034 topiramate 25 mg oral tablet (1 source) End: 04-17-2020 take 1 tablet by mouth twice daily topiramate (TOPAMAX) 25 MG tablet Take 25 mg by mouth 2 times daily 0 04/17/2020 Discontinued (LIST CLEANUP) Problems Active Problems Problem Classification Problem Date Documented Date Episodic/Chronic Cardiac dysrhythmias (18 sources) Paroxysmal supraventricular tachycardia; Translations: [PSVT (paroxysmal supraventricular tachycardia)] Onset: 04-04-2023 04-04-2023 Chronic Congestive heart failure; nonhypertensive (4 sources) Unspecified combined systolic (congestive) and diastolic (congestive) heart failure; Translations: [Chronic combined systolic (congestive) and diastolic (congestive) heart failure] Onset: 06-03-2023 Chronic Coronary atherosclerosis and other heart disease (18 sources) Angina, class IV; Translations: [Angina pectoris, unspecified] Onset: 04-04-2023 04-04-2023 Chronic Diabetes mellitus without complication (18 sources) Type 2 diabetes mellitus; Translations: [Type 2 diabetes mellitus without complications] Onset: 04-04-2023 04-04-2023 Chronic Diabetes mellitus without complication (2 sources) Other abnormal glucose; Translations: [Other abnormal glucose] Onset: 05-15-2024 Episodic Disorders of lipid metabolism (2 sources) Mixed hyperlipidemia; Translations: [Mixed hyperlipidemia] Onset: 10-22-2023 Chronic Essential hypertension (20 sources) Essential hypertension; Translations: [Hypertensive disorder] Onset: 04-04-2023 04-04-2023 Chronic Fluid and electrolyte disorders (1 source) Dehydration; Translations: [Dehydration] Episodic Headache; including migraine (1 source) Headache disorder; Translations: [Other complicated headache syndrome] Episodic Malaise and fatigue (2 sources) Other fatigue; Translations: [Other fatigue] Onset: 05-15-2024 Episodic Nausea and vomiting (1 source) Nausea, vomiting and diarrhea; Translations: [Nausea with vomiting, unspecified] Episodic Nutritional deficiencies (2 sources) Vitamin D deficiency, unspecified; Translations: [Vitamin D deficiency, unspecified] Onset: 05-15-2024 Chronic Other and ill-defined cerebrovascular disease (4 sources) Cerebral aneurysm, nonruptured; Translations: [Aneurysm of anterior communicating artery] 04-20-2020 Chronic Other and ill-defined cerebrovascular disease [...] source) Dysarthria; Translations: [Dysarthria and anarthria] Episodic Other screening for suspected conditions (not mental disorders or infectious disease) (2 sources) Computed tomography result abnormal; Translations: [Abnormal findings on diagnostic imaging of other specified body structures] Onset: 03-26-2024 03-26-2024 Chronic Residual codes; unclassified (20 sources) Medication given; Translations: [Status post administration of tPA (rtPA) in a different facility within the last 24 hours prior to admission to current facility] Chronic Residual codes; unclassified (20 sources) Altered mental status; Translations: [Altered mental status, unspecified] Episodic Residual codes; unclassified (2 sources) Pain; Translations: [Pain, unspecified] Episodic Residual codes; unclassified (2 sources) Swelling; Translations: [Edema, unspecified] Episodic Residual codes; unclassified (2 sources) Localized edema; Translations: [Localized edema] Onset: 05-15-2024 Episodic Spondylosis; intervertebral disc disorders; other back problems (4 sources) Lumbar radiculopathy; Translations: [Radiculopathy, lumbar region] Onset: 11-26-2023 02-16-2024 Episodic Transient cerebral ischemia (20 sources) Transient cerebral ischemia; Translations: [Transient cerebral ischemic attack, unspecified] Onset: 04-17-2020 04-17-2020 Chronic Urinary tract infections (3 sources) Acute cystitis; Translations: [Acute cystitis without hematuria] Onset: 03-26-2024 Episodic Past or Other Problems Problem Classification [...] and giddiness; Translations: [Dizziness and giddiness] Onset: 06-03-2023 Episodic Nonspecific chest pain (18 sources) Chest wall pain; Translations: [Other chest pain] Onset: 04-04-2023 04-04-2023 Episodic Other aftercare (2 sources) Other intermediate school teacher (current) drug therapy; Translations: [Other shelter (current) drug therapy] Onset: 06-03-2023 Episodic Other circulatory disease (18 sources) History of transient ischemic attack; Translations: [Personal history of transient ischemic attack (TIA), and cerebral infarction without residual deficits] Onset: 04-04-2023 04-04-2023 Episodic Other connective tissue disease (20 sources) Neurological symptom; Translations: [Unspecified symptoms and signs involving the nervous system] Onset: 09-02-2020 Episodic Other connective tissue disease (2 sources) Myalgia, unspecified site; Translations: [Myalgia, unspecified site] Onset: 10-22-2023 Episodic Other nervous system disorders (2 sources) Other abnormalities of gait and mobility; Translations: [Other abnormalities of gait and mobility] Onset: 06-03-2023 Episodic Other screening for suspected conditions (not mental disorders or infectious disease) (2 sources) Patient encounter status; Translations: [Encounter for screening mammogram for malignant neoplasm of breast] Onset: 06-09-2023 Episodic Phlebitis; thrombophlebitis and thromboembolism (2 sources) Personal history of other venous thrombosis and embolism; Translations: [Personal history of other venous thrombosis and embolism] Onset: 10-22-2023 Episodic Residual codes; unclassified (1 source) Altered mental status, unspecified; Translations: [Altered mental status, unspecified] Onset: 09-02-2020 Episodic Residual codes; unclassified (2 sources) Edema, unspecified; Translations: [Edema, unspecified] Onset: 06-03-2023 Episodic Residual codes; unclassified (2 sources) Personal history of other specified conditions; Translations: [Personal history of other specified conditions] Onset: 06-03-2023 Episodic Sprains and strains (2 sources) Low back strain; Translations: [Strain of muscle, fascia and tendon of lower back, initial encounter] Onset: 01-21-2024 01-21-2024 Episodic Unclassified (20 sources) Onset: 01-26-2018 Resolved: 03-03-2021 01-26-2018 Results Test Name Value Interpretation Reference Range Facility BUN & Creatinineon 5 Creatinine [Mass/Vol] 1.2 mg/dL High 0.50 - 0.90 mg/dL [facility] Est, Glom Filt Rate 44 Low - PINF [facility] Comment on above: These results are not intended for use [...] following therapy that affects renal tubular secretion. Urea nitrogen [Mass/Vol] 29 mg/dL High 8 - 23 mg/dL [facility] BUN + Creatinineon 5 Creatinine [Mass/Vol] 1.2 mg/dL High 0.50-0.90 [facility] Comment on above: Performed By: #### ALICIA Thapa CDP #### [facility] [address] [place] [address] Metal Welder: Sharath Dennis MD GFR/1.73 sq M.predicted among non-blacks MDRD (S/P/Bld) [Vol rate/Area] 44 mL/min/{1.73_m2} Low >60 [facility] Comment on above: Result Comment: These results [...] affects renal tubular secretion. Performed By: #### ALICIA Thapa CDP #### [facility] [address] [place] [address] Metal Welder: Sharath Dennis MD Urea nitrogen [Mass/Vol] 29 mg/dL High 8-23 [facility] Comment on above: Performed By: #### ALICIA Thapa CDP #### [facility] [address] [place], [place] [id number] Metal Welder: Sharath Dennis MD Brain Natri. Peptideon 05-15 Natriuretic peptide B (Bld) [Mass/Vol] 652 pg/mL High 0-450 [facility] Comment on above: Performed By: #### ALICIA Thapa CDP #### [facility] [address] [place] [address] Metal Welder: Sharath Dennis MD Brain Natriuretic Peptideon 05-15-2024 Natriuretic peptide B (Bld) [Mass/Vol] 652 pg/mL High 0 - 450 pg/mL [facility] CBCon 05-15-2024 Erythrocyte distribution width (RBC) [Ratio] 14.2 % 11.8 - 14.4 % [facility] Hematocrit (Bld) [Volume fraction] 35 % Low 36.3 - 47.1 % [facility] Hemoglobin (Bld) [Mass/Vol] 11 g/dL Low 11.9 - 15.1 g/dL [facility] Interpretation and review of laboratory results Abnormal [facility] MCH (RBC) [Entitic mass] 30 pg 25.2 - 33.5 pg [facility] MCHC (RBC) [Mass/Vol] 31.4 g/dL 28.4 - 34.8 g/dL [facility] MCV (RBC) [Entitic vol] 95.4 fL 82.6 - 102.9 fL [facility] Nucleated RBC/100 WBC (Bld) [Ratio] 0 % 0.0 per 100 WBC [facility] Platelet mean volume (Bld) [Entitic vol] 9.6 fL 8.1 - 13.5 fL [facility] Platelets (Bld) [#/Vol] 227 10*3/uL [facility] RBC (Bld) [#/Vol] 3.67 10*6/uL Low 3.95 - 5.1 1 m/uL [facility] WBC other (Bld) [#/Vol] 6.3 [facility] Erythrocyte distribution width (RBC) [Ratio] 14.2 % Normal 11.8-14.4 [facility] Comment on above: Performed By: #### C ALICIA Christensen CDP #### [facility] [address] [place] [address] [place] [address] Metal Welder: Sharath Dennis MD Hematocrit (Bld) [Volume fraction] 35.0 % Low 36.3-47.1 [facility] Comment on above: Performed By: #### C ALICIA Christensen CDP #### [facility] [address] [place] [address] [place] [address] Metal Welder: Sharath Dennis MD Hemoglobin (Bld) [Mass/Vol] 11.0 g/dL Low 11.9-15.1 [facility] Comment on above: Performed By: #### C PALICIA, CDP #### [facility] [address] [place] [address] [place] [address] Metal Welder: Sharath Dennis MD MCH (RBC) [Entitic mass] 30.0 pg Normal 25.2-33.5 [facility] Comment on above: Performed By: #### C PALICIA, CDP #### [address] [place], [facility] Metal Welder: Sharath Dennis MD MCHC (RBC) [Mass/Vol] 31.4 g/dL Normal 28.4-34.8 [facility] Comment on above: Performed By: #### C PALICIA, CDP #### [address] [place], [facility] Metal Welder: Shaarth Dennis MD MCV (RBC) [Entitic vol] 95.4 fL Normal 82.6-102.9 [facility] Comment on above: Performed By: #### ALICIA Thapa, CDP #### [address] [place] [address] Metal Welder: Sharath Dennis MD NRBC Automated 0.0 per 100 WBC Normal 0.0 [facility] Comment on above: Performed By: #### ALICIA Thapa, CDP #### [address] [place], [facility] Metal Welder: Sharath Dennis MD Platelet mean volume (Bld) [Entitic vol] 9.6 fL Normal 8.1-13.5 [facility] Comment on above: Performed By: #### C ALICIA Christensen, CDP #### [address] [place] [address] Metal Welder: Sharath Dennis MD Platelets (Bld) [#/Vol] 227 10*3/uL Normal 138-453 [facility] Comment on above: Performed By: #### C P, TROPI, CDP #### [facility] [address] [place] [address] Metal Welder: Sharath Dennis MD RBC (Bld) [#/Vol] 3.67 10*6/uL Low 3.95-5.11 [facility] Comment on above: Performed By: #### C P, TROPI, CDP #### [facility] [address] [place], [place] [id number] Metal Welder: Sharath Dennis MD WBC (Bld) [#/Vol] 6.3 10*3/uL Normal 3.5-11.3 [facility] Comment on above: Performed By: #### C P, TROPI, CDP #### [facility] [address] [place], [place] [id number] Metal Welder: Sharath Dennis MD D-Dimer Teston 05-15-2024 D-Dimer Test 0.72 ug/mL FEU High 0.00-0.59 [facility] Comment on above: Result Comment: When combined [...] with distal DVT. Performed By: #### C ALICIA Christensen CDP #### [facility] [address] [place] [address] Metal Welder: Sharath Dennis MD D-Dimer, Quantitativeon Fibrin D-dimer FEU (PPP) [Mass/Vol] 0.72 High [facility] Comment on above: When combined with a low clinical probability, [...] more prevalent in patients with distal DVT. Interpretation and review of laboratory results Abnormal [facility] Electrolyte Panelon 05-16-19 25 Anion gap [Moles/Vol] 11 mmol/L 9 - 16 mmol/L [facility] Chloride [Moles/Vol] 106 mmol/L 98 - 10 7 mmol/L [facility] CO2 [Moles/Vol] 23 mmol/L 20 - 31 mmol/L [facility] Potassium [Moles/Vol] 4.6 mmol/L 3.7 - 5.3 mmol/L [facility] Sodium [Moles/Vol] 140 mmol/L 136 - 145 mmol/L [facility] Electrolyteson 05-15-2024 Anion gap [Moles/Vol] 11 mmol/L Normal 9-16 [facility] Comment on above: Performed By: #### C P TROPI, CDP #### [facility] [address] [place], [place] [id number] Metal Welder: Sharath Dennis MD Chloride [Moles/Vol] 106 mmol/L Normal 98-107 [facility] Comment on above: Performed By: #### C P TROPI, CDP #### [facility] [address] [place], [place] [id number] Metal Welder: Sharath Dennis MD CO2 [Moles/Vol] 23 mmol/L Normal 20-31 [facility] Comment on above: Performed By: #### C PALICIA, CDP #### [facility] [address] [place], [place] [id number] Metal Welder: Sharath Dennis MD Potassium [Moles/Vol] 4.6 mmol/L Normal 3.7-5.3 [facility] Comment on above: Performed By: #### C PALICIA, CDP #### [facility] [address] [place], [place] [address] Metal Welder: Sharath Dennis MD Sodium [Moles/Vol] 140 mmol/L Normal 136-145 [facility] Comment on above: Performed By: #### C P, TROPI, CDP #### [facility] [address] [place] [address] Metal Welder: Sharaht Dennis MD Hemoglobin A1Con 05-15-2024 Average glucose Estimated from glycated hemoglobin (Bld) [Mass/Vol] 114 mg/dL [facility] Comment on above: The ADA and AACC rec ommend providing the estimated average glucose result to permit better patient understanding of their HBA1c result. HbA1c (Bld) [Mass fraction] 5.6 % 4.0 - 6.0 % [facility] Glucose [Mass/Vol] 114 mg/dL Normal [facility] Comment on above: Result Comment: The ADA and AACC recommend providing the estimated average glucose result to permit better patient understanding of their HBA1c result. Performed By: #### C PALICIA CDP #### [facility] [address] [place] [address] Metal Welder: Sharath Dennis MD HbA1c (Bld) [Mass fraction] 5.6 % Normal 4.0-6.0 [facility] Comment on above: Performed By: #### C PALICIA CDP #### [facility] [address] [place] [address] Metal Welder: Sharath Dennis MD Hepatic Function Panelon Albumin [Mass/Vol] 4.1 g/dL 3.5 - 5.2 g/dL [facility] Albumin/Globulin [Mass ratio] 1.9 {ratio} 1.0 - 2.5 [facility] ALP [Catalytic activity/Vol] 86 U/L 35 - 104 U/L [facility] ALT [Catalytic activity/Vol] 16 U/L 10 - 35 U/L [facility] AST [Catalytic activity/Vol] 23 U/L 10 - 35 U/L [facility] Bilirubin [Mass/Vol] 0.4 mg/dL 0.00 - 1.20 mg/dL [facility] Bilirubin.direct [Mass/Vol] 0.2 mg/dL 0.00 - 0.30 mg/dL [facility] Bilirubin.indirect [Mass/Vol] 0.2 mg/dL 0.0 - 1.0 mg/dL [facility] Protein [Mass/Vol] 6.3 g/dL Low 6.6 - 8.7 g/dL [facility] Lipid Profileon 05-15-2024 Cholesterol [Mass/Vol] 122 mg/dL Normal 0-199 [facility] Comment on above: Cholesterol Guidelines: <200 Desirable 200-240 Borderline >240 Undesirable Result Comment: Cholesterol Guidelines: <200 Desirable 200-240 Borderline >240 Undesirable Performed By: #### C P TROPI, CDP #### [address] [place] [address] Metal Welder: Sharath Dnenis MD Cholesterol in HDL [Mass/Vol] 80 mg/dL Normal >40 [facility] Comment on above: HDL Guidelines: <40 Undesirable 40-59 Borderline >59 Desirable Result Comment: HDL Guidelines: <40 Undesirable 40-59 Borderline >59 Desirable Performed By: #### C P, TROPI, CDP #### [address] [place], [place] [address] Metal Welder: Sharath Dennis MD Cholesterol in LDL [Mass/Vol] 34 mg/dL Normal 0-100 [facility] Comment on above: LDL Guidelines: <100 Desirable 100-129 Near to/above Desirable 130-159 Borderline >159 Undesirable Direct (measured) LDL and calculated LDL are not interchangeable tests. Result Comment: LDL Guidelines: <100 Desirable 100-129 Near to/above Desirable 130-159 Borderline >159 Undesirable Direct (measured) LDL and calculated LDL are not interchangeable tests. Performed By: #### C PALICIA, CDP #### [address] [place], [place] [id number] Metal Welder: Sharath Dennis MD Cholesterol in VLDL [Mass/Vol] 8 mg/dL Normal 1-30 [facility] Comment on above: Performed By: #### C PALICIA, CDP #### [address] [place] [address] Metal Welder: Sharath Dennis MD Cholesterol.total/Chol esterol in HDL [Mass ratio] 1.5 {ratio} Normal [facility] Comment on above: Performed By: #### C P TROPI, CDP #### [address] [place] [address] Metal Welder: Sharath Dennis MD Triglyceride [Mass/Vol] 41 mg/dL Normal <150 [facility] Comment on above: Triglyceride Guidelines: <150 Desirable 150-199 Borderline 200-499 High >499 Very high Based on AHA Guidelines for fasting triglyceride, November 2011. Result Comment: Triglyceride Guidelines: <150 Desirable 150-199 Borderline 200-499 High >499 Very high Based on AHA Guidelines for fasting triglyceride, November 2011. Performed By: #### C P, TROPI, CDP #### [facility] [address] [place] [address] Metal Welder: Sharath Dennis MD Liver Profileon 05-15-2024 Albumin [Mass/Vol] 4.1 g/dL Normal 3.5-5.2 [facility] Comment on above: Performed By: #### C P, TROPI, CDP #### [facility] [address] [place] [address] [place] [address] Metal Welder: Sharath Dennis MD Albumin/Glob Ratio 1.9 Normal 1.0-2.5 [facility] Comment on above: Performed By: #### C P, TROPI, CDP #### [facility] [address] [place] [address] [place] [address] Metal Welder: Sharath Dennis MD Alkaline Phos 86 U/L Normal 35-104 [facility] Comment on above: Performed By: #### C P, TROPI, CDP #### [address] [place] [address] Metal Welder: Sharath Dennis MD ALT [Catalytic activity/Vol] 16 U/L Normal 10-35 [facility] Comment on above: Performed By: #### C P, TROPI, CDP #### [facility] [address] [place] [address] Metal Welder: Sharath Dennis MD AST [Catalytic activity/Vol] 23 U/L Normal 10-35 [facility] Comment on above: Performed By: #### C P, TROPI, CDP #### [facility] [address] [place] [address] [place], [place] [id number] Metal Welder: Sharath Dennis MD Bilirubin [Mass/Vol] 0.4 mg/dL Normal 0.00-1.20 [facility] Comment on above: Performed By: #### C PFLORESI, CDP #### [facility] [address] [place], [place] [id number] Metal Welder: Sharath Dennis MD Bilirubin, Indirect 0.2 mg/dL Normal 0.0-1.0 [facility] Comment on above: Performed By: #### C P TROPI, CDP #### [facility] [address] [place], [place] [id number] Metal Welder: Sharath Dennis MD Bilirubin.indirect [Mass/Vol] 0.2 mg/dL Normal 0.00-0.30 [facility] Comment on above: Performed By: #### ALICIA Thapa, CDP #### [facility] [address] [place] [address] Dr. [place], [facility] Metal Welder: Sharath Dennis MD Protein [Mass/Vol] 6.3 g/dL Low 6.6-8.7 [facility] Comment on above: Performed By: #### C PALICIA, CDP #### [address] [place], [place] [id number] Metal Welder: Sharath Dennis MD No Panel Informationon 05-15 [facility] Interpretation and review of laboratory results Abnormal [facility] TSHon 05-15-2024 TSH Qn 2.56 m[IU]/L [facility] Thyroid Stim. Horm.on 2024 Thyroid Stim. Horm. 2.56 uIU/mL Normal 0.27-4.20 [facility] Comment on above: Performed By: #### C PALICIA, CDP #### [facility] [address] [place] [address] Metal Welder: Sharath Dennis MD Vitamin D 25 Hydroxyon 05-15 25-hydroxyvitamin D3 [Mass/Vol] 59.1 ng/mL 30.0 - 100.0 ng/mL [facility] Comment on above: Reference Range: Vitamin D status Range Deficiency <20 ng/mL Mild Deficiency 20-30 ng/mL Sufficiency 30-100 ng/mL Toxicity >100 ng/mL Vitamin D 25 OHon 05-15-2024 Vitamin D 25 OH 59.1 ng/mL Normal 30.0-100.0 [facility] Comment on above: Result Comment: Reference Range: Vitamin D status Range Deficiency <20 ng/mL Mild Deficiency 20-30 ng/mL Sufficiency 30-100 ng/mL Toxicity >100 ng/mL Performed By: #### ALICIA Thapa CDP #### [facility] [address] [place] [address] [place] [address] Metal Welder: Sharath Dennis MD Cult,Urineon 03-29-2024 Cult,Urine Specimen Description .URINE Culture ESCHERICHIA COLI >100,000 CFU/ML Report Status FINAL 03/30/2024 SUSCEPTIBILITY Organism ESCHERICHIA COLI Method SHAILESH Ampicillin 8 SUSCEPTIBLE Cefazolin <=4 SUSCEPTIBLE Cefazolin sensitivity results can be used to predict the effectiveness of oral cephalosporins (eg. Cephalexin) in uncomplicated Urinary Tract Infections due to E. coli, K. pneumoniae, and P. mirabilis Ceftriaxone <=0.25 SUSCEPTIBLE ESBL NEGATIVE Gentamicin <=1 SUSCEPTIBLE Levofloxacin <=0.12 SUSCEPTIBLE Piperacillin/Tazobacta m <=4 SUSCEPTIBLE Tobramycin <=1 SUSCEPTIBLE Trimethoprim/Sulfa <=20 SUSCEPTIBLE Susceptible [facility] Comment on above: Performed By: #### C ALICIA Christensen CDP #### [facility] [address] [place] [address] Metal Welder: Sharath Dennis MD CBC with Auto Differentialon 03-26-2024 Basophils (Bld) [#/Vol] [facility] Basophils/100 WBC (Bld) 0 % 0 - 2 % [facility] Eosinophils (Bld) [#/Vol] 0.13 10*3/uL [facility] Eosinophils/100 WBC (Bld) 1 % 1 - 4 % [facility] Erythrocyte distribution width (RBC) [Ratio] 14.7 % High 11.8 - 14.4 % [facility] Hematocrit (Bld) [Volume fraction] 38.2 % 36.3 - 47.1 % [facility] Hemoglobin (Bld) [Mass/Vol] 12.3 g/dL 11.9 - 15.1 g/dL [facility] Immature granulocytes (Bld) [#/Vol] 0.06 10*3/uL [facility] Immature granulocytes/100 WBC (Bld) 1 % High 0 [facility] Interpretation and review of laboratory results Abnormal [facility] Lymphocytes/100 WBC (Bld) 16 % Low 24 - 43 % [facility] Lymphocytes/100 WBC (Bld) 1.61 % [facility] MCH (RBC) [Entitic mass] 30.3 pg 25.2 - 33.5 pg [facility] MCHC (RBC) [Mass/Vol] 32.2 g/dL 28.4 - 34.8 g/dL [facility] MCV (RBC) [Entitic vol] 94.1 fL 82.6 - 102.9 fL [facility] Monocytes/100 WBC (Bld) 11 % 3 - 12 % [facility] Monocytes/100 WBC (Bld) 1.11 % [facility] Neutrophils/100 WBC (Bld) 71 % High 36 - 65 % [facility] Nucleated RBC/100 WBC (Bld) [Ratio] 0.0 % 0.0 per 100 WBC [facility] Platelet mean volume (Bld) [Entitic vol] 8.8 fL 8.1 - 13.5 fL [facility] Platelets (Bld) [#/Vol] 333 10*3/uL [facility] RBC (Bld) [#/Vol] 4.06 10*6/uL 3.95 - 5.1 1 m/uL [facility] Segmented neutrophils/100 WBC (Bld) 6.91 % [facility] WBC other (Bld) [#/Vol] 9.8 [facility] CBC with Diffon 03-26-2024 Abs. Basophil <0.03 Normal 0.00-0.20 [facility] Comment on above: Performed By: #### C ALICIA Christensen, CDP #### [address] [place] [address] Metal Welder: Sharath Dennis MD Abs.Imm.Granulocyte 0.06 k/uL Normal 0.00-0.30 [facility] Comment on above: Performed By: #### C PFLORESI, CDP #### [address] [place] [address] Metal Welder: Sharath Dennis MD Abs.Neutrophil (Seg) 6.91 k/uL Normal 1.50-8.10 [facility] Comment on above: Performed By: #### C ALICIA Christensen, CDP #### [address] [place] [address] Metal Welder: Sharath Dennis MD Basophils/100 WBC (Bld) 0 % Normal 0-2 [facility] Comment on above: Performed By: #### ALICIA Thapa, CDP #### [address] [place], [place] [address] Metal Welder: Sharath Dennis MD Eosinophils (Bld) [#/Vol] 0.13 10*3/uL Normal 0.00-0.44 [facility] Comment on above: Performed By: #### C PALICIA, CDP #### [address] [place], [facility] Metal Welder: Sharath Dennis MD Eosinophils/100 WBC (Bld) 1 % Normal 1-4 [facility] Comment on above: Performed By: #### C PALICIA, CDP #### [address] [place] [address] Metal Welder: Sharath Dennis MD Erythrocyte distribution width (RBC) [Ratio] 14.7 % High 11.8-14.4 [facility] Comment on above: Performed By: #### C P TROPI, CDP #### [facility] [address] [place], [place] [id number] Metal Welder: Sharath Dennis MD Hematocrit (Bld) [Volume fraction] 38.2 % Normal 36.3-47.1 [facility] Comment on above: Performed By: #### C P TROPI, CDP #### [facility] [address] [place], [place] [id number] Metal Welder: Sharath Dennis MD Hemoglobin (Bld) [Mass/Vol] 12.3 g/dL Normal 11.9-15.1 [facility] Comment on above: Performed By: #### C P TROPI, CDP #### [address] [place], [place] [id number] Metal Welder: Sharath Dennis MD Immature granulocytes/100 WBC (Bld) 1 % High 0 [facility] Comment on above: Performed By: #### C PALICIA, CDP #### [address] [place], [place] [id number] Metal Welder: Sharath Dennis MD Lymphocytes (Bld) [#/Vol] 1.61 10*3/uL Normal 1.10-3.70 [facility] Comment on above: Performed By: #### C P TROPI, CDP #### [address] [place], [place] [id number] Metal Welder: Sharath Dennis MD Lymphocytes/100 WBC (Bld) 16 % Low 24-43 [facility] Comment on above: Performed By: #### C P TROPI, CDP #### [facility] [address] [place] [address] Metal Welder: Sharath Dennis MD MCH (RBC) [Entitic mass] 30.3 pg Normal 25.2-33.5 [facility] Comment on above: Performed By: #### C P, TROPI, CDP #### [address] [place], [place] [address] Metal Welder: Sharath Dennis MD MCHC (RBC) [Mass/Vol] 32.2 g/dL Normal 28.4-34.8 [facility] Comment on above: Performed By: #### C P, TROPI, CDP #### [address] [place], [place] [address] Metal Welder: Sharath Dennis MD MCV (RBC) [Entitic vol] 94.1 fL Normal 82.6-102.9 [facility] Comment on above: Performed By: #### C P TROPI, CDP #### [address] [place] [address] Metal Welder: Sharath Dennis MD Monocytes (Bld) [#/Vol] 1.11 10*3/uL Normal 0.10-1.20 [facility] Comment on above: Performed By: #### C PALICIA, CDP #### [address] [place], [place] [id number] Metal Welder: Sharath Dennis MD Monocytes/100 WBC (Bld) 11 % Normal 3-12 [facility] Comment on above: Performed By: #### C P TROPI, CDP #### [address] [place], [facility] Metal Welder: Sharath Dennis MD Neutrophil (Seg) 71 % High 36-65 [facility] Comment on above: Performed By: #### C P TROPI, CDP #### [address] [place] [address] Metal Welder: Sharath Dennis MD NRBC Automated 0.0 per 100 WBC Normal 0.0 [facility] Comment on above: Performed By: #### C P, TROPI, CDP #### [facility] [address] [place], [place] [id number] Metal Welder: Sharath Dennis MD Platelet mean volume (Bld) [Entitic vol] 8.8 fL Normal 8.1-13.5 [facility] Comment on above: Performed By: #### C P TROPI, CDP #### [facility] [address] [place], [facility] Metal Welder: Sharath Dennis MD Platelets (Bld) [#/Vol] 333 10*3/uL Normal 138-453 [facility] Comment on above: Performed By: #### C PALICIA, CDP #### [address] [place], [facility] Metal Welder: Sharath Dennis MD RBC (Bld) [#/Vol] 4.06 10*6/uL Normal 3.95-5.11 [facility] Comment on above: Performed By: #### C PFLORESI, CDP #### [address] [place], [facility] Metal Welder: Sharath Dennis MD WBC (Bld) [#/Vol] 9.8 10*3/uL Normal 3.5-11.3 [facility] Comment on above: Performed By: #### C PFLORESI, CDP #### [facility] [address] [place], [facility] Metal Welder: Sharath Dennis [facility] Albumin [Mass/Vol] 4.3 g/dL 3.5 - 5.2 g/dL [facility] Albumin/Globulin [Mass ratio] 1.7 {ratio} 1.0 - 2.5 [facility] ALP [Catalytic activity/Vol] 96 U/L 35 - 104 U/L [facility] ALT [Catalytic activity/Vol] 14 U/L 10 - 35 U/L [facility] Anion gap [Moles/Vol] 11 mmol/L 9 - 16 mmol/L [facility] AST [Catalytic activity/Vol] 21 U/L 10 - 35 U/L [facility] Bilirubin [Mass/Vol] 0.5 mg/dL 0.00 - 1.20 mg/dL [facility] Calcium [Mass/Vol] 9.4 mg/dL 8.6 - 10. 4 mg/dL [facility] Chloride [Moles/Vol] 107 mmol/L 98 - 10 7 mmol/L [facility] CO2 [Moles/Vol] 25 mmol/L 20 - 31 mmol/L [facility] Creatinine [Mass/Vol] 1.0 mg/dL High 0.50 - 0.90 mg/dL [facility] Est, Glom Filt Rate 58 Low - PINF [facility] Comment on above: These results are not intended for use [...] following therapy that affects renal tubular secretion. Glucose [Mass/Vol] 95 mg/dL 74 - 99 mg/dL [facility] Potassium [Moles/Vol] 4.4 mmol/L 3.7 - 5.3 mmol/L [facility] Protein [Mass/Vol] 6.8 g/dL 6.6 - 8.7 g/dL [facility] Sodium [Moles/Vol] 143 mmol/L 136 - 145 mmol/L [facility] Urea nitrogen [Mass/Vol] 33 mg/dL High 8 - 23 mg/dL [facility] Urea nitrogen/Creatinine [Mass ratio] 33 mg/mg High 9 - [address] [facility] [address] Head WO contraston 2024 Addendum by Agnes Alfonso MD on 03/26/2024 3:32 PM EST ADDENDUM: Results were reported to Dr. Baxter by radiology results communication at 3:27 p.m. on March 26, 2024. [facility] No acute intracrania l abnormality. [facility] EXAMINATION: CT OF THE HEAD WITHOUT CONTRAST 03/26/2024 2:53 pm TECHNIQUE: CT of the head was performed without the administration of intravenous contrast. Automated exposure control, iterative reconstruction, and/or weight based adjustment of the mA/kV was utilized to reduce the radiation dose to as low as reasonably achievable. COMPARISON: None. HISTORY: ORDERING SYSTEM PROVIDED HISTORY: Aphasia since this morning 7 AM intermittent but now resolved TECHNOLOGIST PROVIDED HISTORY: Aphasia since this morning 7 AM intermittent but now resolved Decision Support Exception - unselect if not [...] of the visualized skull or soft tissues. [facility] Angelito Alfonso MD - 03/26/2024 EXAMINATION: CT OF THE HEAD WITHOUT CONTRAST 03/26/2024 2:53 pm TECHNIQUE: CT of the head was performed without the administration of intravenous contrast. Automated exposure control, iterative reconstruction, and/or weight based adjustment of the mA/kV was utilized to reduce the radiation dose to as low as reasonably achievable. COMPARISON: None. HISTORY: ORDERING SYSTEM PROVIDED HISTORY: Aphasia since this morning 7 AM intermittent but now resolved TECHNOLOGIST PROVIDED HISTORY: Aphasia since this morning 7 AM intermittent but now resolved Decision Support Exception - unselect if not [...] soft tissues. IMPRESSION: No acute intracranial abnormality. [facility] Radiology Study observation (narrative) [facility] CT Head WO contrastOrdered B y: Angelito Alfonso on 03-26-2024 [facility] Work Phone: CTA HEAD NECK W CONTRASTon 0 03-26-2024 CTA HEAD NECK W CONTRAST EXAMINATION: CTA OF THE HEAD AND NECK WITH CONTRAST 03/26/2024 2:52 pm: TECHNIQUE: CTA of the head and [...] low as reasonably achievable. COMPARISON: CT head from earlier today, CTA head and neck October 05, 2021 HISTORY: ORDERING SYSTEM PROVIDED HISTORY: Aphasia his limbs from 7 AM intermittent and now resolved TECHNOLOGIST PROVIDED HISTORY: Aphasia his limbs from 7 AM intermittent and now resolved Decision Support Exception - unselect if not [...] clear. No cervical or superior mediastinal lymphadenopathy. There is 9 mm cystic lesion in the right vallecula, likely related to inflammatory changes. No acute abnormality of the salivary and thyroid glands. BONES: No acute osseous abnormality. CTA HEAD: ANTERIOR CIRCULATION: No significant stenosis of the intracranial internal carotid, anterior cerebral, or middle cerebral arteries. 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 No significant stenosis of the basilar or posterior cerebral arteries. No aneurysm. OTHER: No dural venous sinus thrombosis on this non-dedicated study. BRAIN: No mass effect or midline shift. No extra-axial fluid collection. The kevin-white differentiation is maintained. IMPRESSION: No large vessel occlusion in the head or neck. 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 Interpreted by: Angelito Alfonso MD Signed by: Angelito Alfonso MD 03/26/24 Final result Normal [facility] CTA Head vessels and Neck ve ssels W contrast Bernardo 03-26-2024 No large vessel occlusion in the head or neck. 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 [facility] EXAMINATION: CTA OF THE HEAD AND NECK WITH CONTRAST 03/26/2024 2:52 pm: TECHNIQUE: CTA of the head and [...] low as reasonably achievable. COMPARISON: CT head from earlier today, CTA head and neck October 05, 2021 HISTORY: ORDERING SYSTEM PROVIDED HISTORY: Aphasia his limbs from 7 AM intermittent and now resolved TECHNOLOGIST PROVIDED HISTORY: Aphasia his limbs from 7 AM intermittent and now resolved Decision Support Exception - unselect if not [...] clear. No cervical or superior mediastinal lymphadenopathy. There is 9 mm cystic lesion in the right vallecula, likely related to inflammatory changes. No acute abnormality of the salivary and thyroid glands. BONES: No acute osseous abnormality. CTA HEAD: ANTERIOR CIRCULATION: No significant stenosis of the intracranial internal carotid, anterior cerebral, or middle cerebral arteries. 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 No significant stenosis of the basilar or posterior cerebral arteries. No aneurysm. OTHER: No dural venous sinus thrombosis on this non-dedicated study. BRAIN: No mass effect or midline shift. No extra-axial fluid collection. The kevin-white differentiation is maintained. [facility] Angelito Rivera MD - 03/26/2024 EXAMINATION: CTA OF THE HEAD AND NECK WITH CONTRAST 03/26/2024 2:52 pm: TECHNIQUE: CTA of the head and [...] low as reasonably achievable. COMPARISON: CT head from earlier today, CTA head and neck October 05, 2021 HISTORY: ORDERING SYSTEM PROVIDED HISTORY: Aphasia his limbs from 7 AM intermittent and now resolved TECHNOLOGIST PROVIDED HISTORY: Aphasia his limbs from 7 AM intermittent and now resolved Decision Support Exception - unselect if not [...] clear. No cervical or superior mediastinal lymphadenopathy. There is 9 mm cystic lesion in the right vallecula, likely related to inflammatory changes. No acute abnormality of the salivary and thyroid glands. BONES: No acute osseous abnormality. CTA HEAD: ANTERIOR CIRCULATION: No significant stenosis of the intracranial internal carotid, anterior cerebral, or middle cerebral arteries. 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 No significant stenosis of the basilar or posterior cerebral arteries. No aneurysm. OTHER: No dural venous sinus thrombosis on this non-dedicated study. BRAIN: No mass effect or midline shift. No extra-axial fluid collection. The kevin-white differentiation is maintained. IMPRESSION: No large vessel occlusion in the head or neck. 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 [facility] Radiology Study observation (narrative) [facility] Comp Metabolic Profon 2024 Albumin [Mass/Vol] 4.3 g/dL Normal 3.5-5.2 [facility] Comment on above: Performed By: #### C P, TROPI, CDP #### [facility] [address] [place] [address] Metal Welder: Sharath Dennis MD Albumin/Glob Ratio 1.7 Normal 1.0-2.5 [facility] Comment on above: Performed By: #### C P, TROPI, CDP #### [address] [place], [place] [id number] Metal Welder: Sharath Dennis MD Alkaline Phos 96 U/L Normal 35-104 [facility] Comment on above: Performed By: #### C P, TROPI, CDP #### [facility] [address] [place] [address] Metal Welder: Sharath Dennis MD ALT [Catalytic activity/Vol] 14 U/L Normal 10-35 [facility] Comment on above: Performed By: #### C P, TROPI, CDP #### [facility] [address] [place] [address] Metal Welder: Sharath Dennis MD Anion gap [Moles/Vol] 11 mmol/L Normal 9-16 [facility] Comment on above: Performed By: #### C P, TROPI, CDP #### [facility] [address] [place], [place] [address]83 Metal Welder: Sharath Dennis MD AST [Catalytic activity/Vol] 21 U/L Normal 10-35 [facility] Comment on above: Performed By: #### C P, TROPI, CDP #### [facility] [address] [place], [place] [address]83 Metal Welder: Sharath Dennis MD Bilirubin [Mass/Vol] 0.5 mg/dL Normal 0.00-1.20 [facility] Comment on above: Performed By: #### C P, TROPI, CDP #### [facility] [address] [place], [place] 1899183 Metal Welder: Sharath Dennis MD BUN/CRE Ratio 33 High 9-20 [facility] Comment on above: Performed By: #### C P, TROPI, CDP #### [facility] [address] [place], [place] [address]83 Metal Welder: Sharath Dennis MD Calcium [Mass/Vol] 9.4 mg/dL Normal 8.6-10.4 [facility] Comment on above: Performed By: #### C P, TROPI, CDP #### [facility] [address] [place], [place] [id number] Metal Welder: Sharath Dennis MD Chloride [Moles/Vol] 107 mmol/L Normal 98-107 [facility] Comment on above: Performed By: #### C P, TROPI, CDP #### [facility] [address] [place] [address] [place] [place], [place] [id number] Metal Welder: Sharath Dennis MD CO2 [Moles/Vol] 25 mmol/L Normal 20-31 [facility] Comment on above: Performed By: #### C P, TROPI, CDP #### [facility] [address] [place], [place] [id number] Metal Welder: Sharath Dennis MD Creatinine [Mass/Vol] 1.0 mg/dL High 0.50-0.90 [facility] Comment on above: Performed By: #### C P, TROPI, CDP #### [facility] [address] [place], [place] 164[address]183 Metal Welder: Sharath Dennis MD GFR/1.73 sq M.predicted among non-blacks MDRD (S/P/Bld) [Vol rate/Area] 58 mL/min/{1.73_m2} Low >60 [facility] Comment on above: Result Comment: These results [...] renal tubular secretion. Performed By: #### C PALICIA, CDP #### [address] [place] [address] Metal Welder: Sharath Dennis MD Glucose [Mass/Vol] 95 mg/dL Normal 74-99 [facility] Comment on above: Performed By: #### Ej PALICIA, CDP #### [address] [place] [address] Metal Welder: Sharath Dennis MD Potassium [Moles/Vol] 4.4 mmol/L Normal 3.7-5.3 [facility] Comment on above: Performed By: #### Ej PALICIA, CDP #### [address] [place] [address] Metal Welder: Sharath Dennis MD Protein [Mass/Vol] 6.8 g/dL Normal 6.6-8.7 [facility] Comment on above: Performed By: #### C PALICIA, CDP #### [address] [place] [address] Metal Welder: Sharath Dennis MD Sodium [Moles/Vol] 143 mmol/L Normal 136-145 [facility] Comment on above: Performed By: #### C PFLORESI, CDP #### [address] [place] [address] Metal Welder: Sharath Dennis MD Urea nitrogen [Mass/Vol] 33 mg/dL High 8-23 [facility] Comment on above: Performed By: #### C ALICIA Christensen CDP #### [facility] [address] [place], [place] [id number] Metal Welder: Sharath Dennis MD Glucose, Whole Bloodon 03-26 Glucose [Mass/Vol] 77 mg/dL 74 - 100 mg/dL [facility] Glucose, Whole BloodOrdered By: Marbella Bernstein on 03-26-2024 Glucose [Mass/Vol] 77 mg/dL Normal 74-100 [facility] Microscopic Urinalysison Bacteria LM Ql (Urine sed) 2+ Abnormal None [facility] Character (U) Urine Reflexed to Culture Abnormal NOT REQ. [facility] Epithelial cells LM.HPF (Urine sed) [#/Area] 0 TO 2 [facility] Interpretation and review of laboratory results Abnormal [facility] RBC LM.HPF (Urine sed) [#/Area] 0 TO 2 [facility] WBC LM.HPF (Urine sed) [#/Area] 10 TO 20 [facility] No Panel Informationon 03-26 Interpretation and review of laboratory results Abnormal [facility] POCT glucoseOrdered By: Mery Bernstein on 03-26-2024 Interpretation and review of laboratory results Normal [facility] QC OK? yes [facility] Portable XR Chest AP single viewon 03-26-2024 No radiographic evidence of an acute cardiopulmonary process. [facility] EXAMINATION: ONE XRAY VIEW OF THE CHEST 03/26/2024 2:03 pm COMPARISON: 04/04/2023. HISTORY: ORDERING SYSTEM PROVIDED HISTORY: Shortness of Breath TECHNOLOGIST PROVIDED HISTORY: Shortness of Breath aphasia FINDINGS: The lungs and costophrenic angles are clear. The cardiomediastinal silhouette, pulmonary vessels and interstitium appear normal. [facility] Jose Holt MD - 03/26/2024 EXAMINATION: ONE XRAY VIEW OF THE CHEST 03/26/2024 2:03 pm COMPARISON: 04/04/2023. HISTORY: ORDERING SYSTEM PROVIDED HISTORY: Shortness of Breath TECHNOLOGIST PROVIDED HISTORY: Shortness of Breath aphasia FINDINGS: The lungs and costophrenic angles are clear. The cardiomediastinal silhouette, pulmonary vessels and interstitium appear normal. IMPRESSION: No radiographic evidence of an acute cardiopulmonary process. [facility] Radiology Study observation (narrative) [facility] Portable XR Chest AP single viewOrdered By: Jose Holt on 03-26-2024 [facility] Work Phone: Troponinon 03-26-2024 Troponin I.cardiac High sensitivity method [Mass/Vol] 25 ng/L High 0 - 14 ng/L [facility] Comment on above: High Sensitivity Tro ponin values cannot be compared with other Troponin methodologies. Troponin, High Sens 25 ng/L High 0-14 [facility] Comment on above: Result Comment: High Sensitivity Troponin values cannot be compared with other Troponin methodologies. Performed By: #### C P, TROPI, CDP #### [facility] [address] [place] [address] [place] [address] Metal Welder: Sharath Dennis MD UA w/Reflex Cultureon 2024 Bilirubin, SemiQt,Ur Negative Normal NEG [facility] Comment on above: Performed By: #### C P, TROPI, CDP #### [facility] [address] [place] [address] Metal Welder: Sharath Dennis MD Blood, Urine Negative Normal NEG [facility] Comment on above: Performed By: #### C P, TROPI, CDP #### [facility] [address] [place] [address] Metal Welder: Sharath Dennis MD Clarity (U) Clear Normal CLEAR [facility] Comment on above: Performed By: #### C P, TROPI, CDP #### [facility] [address] [place], [place] [id number] Metal Welder: Sharath Dennis MD Color (U) Yellow Normal YEL [facility] Comment on above: Performed By: #### C P, TROPI, CDP #### [facility] [address] [place] [address] [place] [place], [place] [id number] Metal Welder: Sharath Dennis MD Glucose Ql (U) Negative Normal NEG [facility] in [facility] Comment on above: Performed By: #### C P, TROPI, CDP #### [facility] [address] [place] [address] [place] [place], [place] [id number] Metal Welder: Sharath Dennis MD Ketones Ql (U) Negative Normal NEG [facility] Comment on above: Performed By: #### C P, TROPI, CDP #### [facility] [address] [place] [address] [place] [place], [place] [id number] Metal Welder: Sharath Dennis MD Leukocyte esterase Test strip Ql (U) SMALL Abnormal NEG [facility] Comment on above: Performed By: #### C P, TROPI, CDP #### [address] [place], [place] [id number] Metal Welder: Sharath Dennis MD Nitrite,Ur Positive Abnormal NEG [facility] Comment on above: Performed By: #### C P, TROPI, CDP #### [facility] [address] [place] [address] [place], [place] 7657783 Metal Welder: Sharath Dennis MD PH,Ur 6.0 Normal 5.0-9.0 [facility] Comment on above: Performed By: #### C P, TROPI, CDP #### [facility] [address] [place] [address] [place] [place], [place] [id number] Metal Welder: Sharath Dennis MD Protein Ql (U) Negative Normal NEG [facility] Comment on above: Performed By: #### C P, TROPI, CDP #### [facility] [address] [place] [address] Metal Welder: Sharath Dennis MD Spec. [place],Ur 1.010 Normal 1.010-1.020 [facility] Comment on above: Performed By: #### C ALICIA Christensen CDP #### [facility] [address] [place] [address] Metal Welder: Sharath Dennis MD Urobilinogen,Ur Normal Normal 0.0-1.0 [facility] Comment on above: Performed By: #### C ALICIA Christensen CDP #### [facility] [address] [place] [address] Metal Welder: Sharath Dennis MD Urinalysis with Reflex to Cu ltureon 03-26-2024 Bilirubin Ql (U) Negative NEGATIVE [facility] Clarity (U) Clear Clear [facility] Color (U) Yellow Yellow [facility] Glucose Test strip (U) [Mass/Vol] Negative NEGATIVE mg/dL [facility] Hemoglobin Auto test strip Ql (U) Negative NEGATIVE [facility] Interpretation and review of laboratory results Abnormal [facility] Ketones (U) [Mass/Vol] Negative NEGAT MAJOR mg/dL [facility] Leukocyte esterase Test strip Ql (U) SMALL Abnormal NEGATIVE [facility] Nitrite Ql (U) Positive Abnormal NEGATIVE [facility] pH (U) 6.0 [pH] 5.0 - 9.0 [facility] Protein (U) [Mass/Vol] Negative NEGAT MAJOR mg/dL [facility] Specific gravity (U) [Rel density] 1.010 1.010 - 1.020 [facility] Urobilinogen Qn (U) Normal 0.0 - 1. 0 EU/dL [facility] Urinalysis,Microon 5 Bacteria 2+ Abnormal NONE [facility] Comment on above: Performed By: #### C ALICIA Christensen CDP #### [facility] [address] [place], [place] [id number] Metal Welder: Sharath Dennis MD Epithelial cells LM Ql (Urine sed) 0 TO 2 Normal 0-25 [facility] Comment on above: Performed By: #### C P, TROPI, CDP #### [facility] [address] [place], [place] [id number] Metal Welder: Sharath Dennis MD Other Observations Urine Reflexed to Culture Abnormal NREQ [facility] Comment on above: Performed By: #### C P, TROPI, CDP #### [facility] [address] [place], [place] 0967983 Metal Welder: Sharath Dennis MD Urine RBC's 0 TO 2 Normal 0-2 [facility] Comment on above: Performed By: #### C P, TROPI, CDP #### [facility] [address] [place], [place] 6412883 Metal Welder: Sharath Dennis MD Urine WBC's 10 TO 20 Normal 0-5 [facility] Comment on above: Performed By: #### C P, TROPI, CDP #### [facility] [address] [place] [address] [place] [address] Metal Welder: Sharath Dennis MD XR CHEST PORTABLEon 03-26-19 XR CHEST PORTABLE EXAMINATION: ONE XRAY VIEW OF THE CHEST 03/26/2024 2:03 pm COMPARISON: 04/04/2023. HISTORY: ORDERING SYSTEM PROVIDED HISTORY: Shortness of Breath TECHNOLOGIST PROVIDED HISTORY: Shortness of Breath aphasia FINDINGS: The lungs and costophrenic angles are clear. The cardiomediastinal silhouette, pulmonary vessels and interstitium appear normal. IMPRESSION: No radiographic evidence of an acute cardiopulmonary process. Interpreted by: Jose Holt MD Signed by: Jose Holt MD 03/26/24 Final result Normal [facility] CT LUMBAR SPINE WO CONTRASTo n 02-17-2024 [...] Holden Simon MD 02/17/24 Final result Normal [facility] CT Lumbar spine WO contrasto n 02-17-2024 [...] significant osseous neuroforaminal stenosis. Imaged abdomen/pelvis: Unremarkable. [facility] Holden Simon MD - 02/17/2024 EXAMINATION: CT OF THE [...] 20% height loss. 2. Multilevel lumbar spondylosis. [facility] CT Lumbar spine WO contrastO rdered By: Holden Simon on 02-17-[address] [facility] [address] Lumbar spine WO contrasto n 02-16-2024 Radiology Study observation (narrative) [facility] Microscopic Urinalysison Bacteria LM Ql (Urine sed) TRACE Abnormal None [facility] Epithelial cells LM.HPF (Urine sed) [#/Area] 2 TO 5 [facility] Interpretation and review of laboratory results Abnormal [facility] RBC LM.HPF (Urine sed) [#/Area] 0 TO 2 [facility] WBC LM.HPF (Urine sed) [#/Area] 2 TO 5 [facility] UA w/Reflex Cultureon 2023 Bilirubin, SemiQt,Ur Negative Normal NEG [facility] Comment on above: Performed By: #### C ALICIA Christensen CDP #### [facility] [address] [place] [address] Metal Welder: Sharath Dennis MD Blood, Urine Negative Normal NEG [facility] Comment on above: Performed By: #### C P, TROPI, CDP #### [facility] [address] [place], [place] 8413083 Metal Welder: Sharath Dennis MD Clarity (U) Clear Normal CLEAR [facility] Comment on above: Performed By: #### C P, TROPI, CDP #### [facility] [address] [place] [address] [place] [place], [place] 2583983 Metal Welder: Sharath Dennis MD Color (U) Yellow Normal YEL [facility] Comment on above: Performed By: #### C P, TROPI, CDP #### [address] [place], [place] 0755583 Metal Welder: Sharath Dennis MD Glucose Ql (U) Negative Normal NEG [facility] Comment on above: Performed By: #### C P, TROPI, CDP #### [facility] [address] [place] [address] Dr. [place], [facility] Metal Welder: Sharath Dennis MD Ketones Ql (U) Negative Normal NEG [facility] Comment on above: Performed By: #### C P, TROPI, CDP #### [address] [place], [place] [id number] Metal Welder: Sharath Dennis MD Leukocyte esterase Test strip Ql (U) SMALL Abnormal NEG [facility] Comment on above: Performed By: #### C P, TROPI, CDP #### [facility] [address] [place] [address] [place], [place] [id number] Metal Welder: Sharath Dennis MD Nitrite,Ur Negative Normal NEG [facility] Comment on above: Performed By: #### C P, TROPI, CDP #### [facility] [address] [place], [place] 4752183 Metal Welder: Sharath Dennis MD PH,Ur 6.0 Normal 5.0-9.0 [facility] Comment on above: Performed By: #### C P, TROPI, CDP #### [facility] [address] [place] [address] Metal Welder: Sharath Dennis MD Protein Ql (U) Negative Normal NEG [facility] Comment on above: Performed By: #### C PFLORESI, CDP #### [facility] [address] [place] [address] [place], [place] 3828983 Metal Welder: Sharath Dennis MD Spec. [place],Ur 1.015 Normal 1.010-1.020 [facility] Comment on above: Performed By: #### C PALICIA CDP #### [facility] [address] [place] [address] [place] [address] Metal Welder: Sharath Dennis MD Urobilinogen,Ur Normal Normal 0.0-1.0 [facility] Comment on above: Performed By: #### C PALICIA CDP #### [facility] [address] [place] [address] [place], [place] [id number] Metal Welder: Sharath Dennis MD Urinalysis with Reflex to Cu ltureon 01-21-2024 Bilirubin Ql (U) Negative NEGATIVE [facility] Clarity (U) Clear Clear [facility] Color (U) Yellow Yellow [facility] Glucose Test strip (U) [Mass/Vol] Negative NEGATIVE mg/dL [facility] Hemoglobin Auto test strip Ql (U) Negative NEGATIVE [facility] Interpretation and review of laboratory results Abnormal [facility] Ketones (U) [Mass/Vol] Negative NEGAT MAJOR mg/dL [facility] Leukocyte esterase Test strip Ql (U) SMALL Abnormal NEGATIVE [facility] Nitrite Ql (U) Negative NEGATIVE [facility] pH (U) 6.0 [pH] 5.0 - 9.0 [facility] Protein (U) [Mass/Vol] Negative NEGAT MAJOR mg/dL [facility] Specific gravity (U) [Rel density] 1.015 1.010 - 1.020 [facility] Urobilinogen Qn (U) Normal 0.0 - 1. 0 EU/dL [facility] Bon [facility] Urinalysis,Microon 4 Bacteria TRACE Abnormal NONE [facility] Comment on above: Performed By: #### C P, TROPI, CDP #### [facility] [address] [place], [place] 4105583 Metal Welder: Sharath Dennis MD Epithelial cells LM Ql (Urine sed) 2 TO 5 Normal 0-25 [facility] Comment on above: Performed By: #### C P, TROPI, CDP #### [facility] [address] [place], [place] 5459883 Metal Welder: Sharath Dennis MD Urine RBC's 0 TO 2 Normal 0-2 [facility] Comment on above: Performed By: #### C P, TROPI, CDP #### [facility] [address] [place], [place] 5378183 Metal Welder: Sharath Dennis MD Urine WBC's 2 TO 5 Normal 0-5 [facility] Comment on above: Performed By: #### C P, TROPI, CDP #### [facility] [address] [place] [address] Metal Welder: Sharath Dennis MD XR LUMBAR SPINE (2-3 [...] Kel Hennessy MD 01/21/24 Final result Normal [facility] XR Lumbar spine 2 or 3 Views on 01-21-2024 Multilevel degenerative change without acute abnormality of the lumbar spine. [facility] EXAMINATION: 3 XRAY VIEWS OF [...] joints. The surrounding soft tissues are unremarkable. [facility] Kel Hennessy MD - 01/21/2024 [...] without acute abnormality of the lumbar spine. [facility] Radiology Study observation (narrative) [facility] XR Lumbar spine 2 or 3 Views Ordered By: Kel Hennessy on 01-21-2024 [facility] Work Phone: Hemoglobin A1Con 10-23-2023 Glucose [Mass/Vol] 123 mg/dL Normal [facility] Comment on above: Result Comment: The ADA and AACC recommend providing the estimated average glucose result to permit better patient understanding of their HBA1c result. Performed By: #### C P, TROPI, CDP #### [facility] [address] [place] [address] Metal Welder: Sharath Dennis MD HbA1c (Bld) [Mass fraction] 5.9 % Normal 4.0-6.0 [facility] Comment on above: Performed By: #### C P, TROPI, CDP #### [facility] [address] [place] [address] Metal Welder: Sharath Dennis MD Lipid Profileon 10-23-2023 Cholesterol [Mass/Vol] 146 mg/dL Normal 0-199 [facility] Comment on above: Result Comment: Cholesterol Guidelines: <200 Desirable 200-240 Borderline >240 Undesirable Performed By: #### C PALICIA, CDP #### [facility] [address] [place], [place] 6251083 Metal Welder: Sharath Dennis MD Cholesterol in HDL [Mass/Vol] 87 mg/dL Normal >40 [facility] Comment on above: Result Comment: HDL Guidelines: <40 Undesirable 40-59 Borderline >59 Desirable Performed By: #### C PALICIA, CDP #### [facility] [address] [place], [place] 0525983 Metal Welder: Sharath Dennis MD Cholesterol in LDL [Mass/Vol] 50 mg/dL Normal 0-100 [facility] Comment on above: Result Comment: LDL Guidelines: <100 Desirable 100-129 Near to/above Desirable 130-159 Borderline >159 Undesirable Direct (measured) LDL and calculated LDL are not interchangeable tests. Performed By: #### C PALICIA, CDP #### [facility] [address] [place], [place] 1401183 Metal Welder: Sharath Dennis MD Cholesterol in VLDL [Mass/Vol] 9 mg/dL Normal [facility] Comment on above: Performed By: #### C ALICIA Christensen, CDP #### [facility] [address] [place], [place] 7151183 Metal Welder: Sharath Dennis MD Cholesterol.total/Chol esterol in HDL [Mass ratio] 2.0 {ratio} Normal [facility] Comment on above: Performed By: #### C PALICIA, CDP #### [facility] [address] [place], [place] 0330483 Metal Welder: Sharath Dennis MD Triglyceride [Mass/Vol] 45 mg/dL Normal <150 [facility] Comment on above: Result Comment: Triglyceride Guidelines: <150 Desirable 150-199 Borderline 200-499 High >499 Very high Based on AHA Guidelines for fasting triglyceride, November 2011. Performed By: #### C P, ALICIA, CDP #### [facility] [address] [place] [address] Metal Welder: Sharath Dennis MD BUN (Urea N)on 10-22-2023 Urea nitrogen [Mass/Vol] 29 mg/dL High 8-23 [facility] Comment on above: Performed By: #### L IVP, CREG, BNP, CBC, TSH, LYTE, DIME, BUN #### [address] [place] [address] Metal Welder: Sharath Dennis MD #### LIPR, GLYHGB #### [place] [address] [place], [place] 0733308 Metal Welder: Wellington Back MD Brain Natri. Peptideon 10-21 Natriuretic peptide B (Bld) [Mass/Vol] 422 pg/mL Normal 0-450 [facility] Comment on above: Performed By: #### L IVP, CREG, BNP, CBC, TSH, LYTE, DIME, BUN #### [address] [place], [place] 0152883 Metal Welder: Sharath Dennis MD #### LIPR, GLYHGB #### [address] [id number] Metal Welder: Wellington Back MD CBCon 7 Erythrocyte distribution width (RBC) [Ratio] 13.8 % Normal 11.8-14.4 [facility] Comment on above: Performed By: #### L IVP, CREG, BNP, CBC, TSH, LYTE, DIME, BUN #### [facility] [address] [place], [place] 1463083 Metal Welder: Sharath Dennis MD #### LIPR, GLYHGB #### [address], [place] 8915108 Metal Welder: Wellington Back MD Hematocrit (Bld) [Volume fraction] 36.4 % Normal 36.3-47.1 [facility] Comment on above: Performed By: #### L IVP, CREG, BNP, CBC, TSH, LYTE, DIME, BUN #### [address] [place] [id number] Metal Welder: Sharath Dennis MD #### LIPR, GLYHGB #### [address] [address] Metal Welder: Wellington Back MD Hemoglobin (Bld) [Mass/Vol] 11.6 g/dL Low 11.9-15.1 [facility] Comment on above: Performed By: #### L IVP, CREG, BNP, CBC, TSH, LYTE, DIME, BUN #### [address] [place] [id number] Metal Welder: Sharath Dennis MD #### LIPR, GLYHGB #### [place] [address] Metal Welder: Wellington Back MD MCH (RBC) [Entitic mass] 29.6 pg Normal 25.2-33.5 [facility] Comment on above: Performed By: #### L IVP, CREG, BNP, CBC, TSH, LYTE, DIME, BUN #### [address] [place] [id number] Metal Welder: Sharath Dennis MD #### LIPR, GLYHGB #### [address] [id number] Metal Welder: Wellington Back MD MCHC (RBC) [Mass/Vol] 31.9 g/dL Normal 28.4-34.8 [facility] Comment on above: Performed By: #### L IVP, CREG, BNP, CBC, TSH, LYTE, DIME, BUN #### [address] [place] [address] Metal Welder: Sharath Dennis MD #### LIPR, GLYHGB #### [address] [id number] Metal Welder: Wellington Back MD MCV (RBC) [Entitic vol] 92.9 fL Normal 82.6-102.9 [facility] Comment on above: Performed By: #### L IVP, CREG, BNP, CBC, TSH, LYTE, DIME, BUN #### [address] [place] [address] Metal Welder: Sharath Dennis MD #### LIPR, GLYHGB #### [place] [id number] Metal Welder: Wellington Back MD NRBC Automated 0.0 per 100 WBC Normal 0.0 [facility] Comment on above: Performed By: #### L IVP, CREG, BNP, CBC, TSH, LYTE, DIME, BUN #### [address] [place] [id number] Metal Welder: Sharath Dennis MD #### LIPR, GLYHGB #### [place] [id number] Metal Welder: Wellington Back MD Platelet mean volume (Bld) [Entitic vol] 9.9 fL Normal 8.1-13.5 [facility] Comment on above: Performed By: #### L IVP, CREG, BNP, CBC, TSH, LYTE, DIME, BUN #### [address] [place] [address] Metal Welder: Sharath Dennis MD #### LIPR, GLYHGB #### [address] [address] Metal Welder: Wellington Back MD Platelets (Bld) [#/Vol] 291 10*3/uL Normal 138-453 [facility] Comment on above: Performed By: #### L IVP, CREG, BNP, CBC, TSH, LYTE, DIME, BUN #### [address] [place] 6442183 Metal Welder: Sharath Dennis MD #### LIPR, GLYHGB #### [id number] [place] [address] Metal Welder: Wellington Back MD RBC (Bld) [#/Vol] 3.92 10*6/uL Low 3.95-5.11 [facility] Comment on above: Performed By: #### L IVP, CREG, BNP, CBC, TSH, LYTE, DIME, BUN #### [address] [place] [id number] ( Metal Welder: Sharath Dennis MD #### LIPR, GLYHGB #### [place] [address] Metal Welder: Wellington Back MD WBC (Bld) [#/Vol] 7.7 10*3/uL Normal 3.5-11.3 [facility] Comment on above: Performed By: #### L IVP, CREG, BNP, CBC, TSH, LYTE, DIME, BUN #### [address] [place] [id number] Metal Welder: Sharath Dennis MD #### LIPR, GLYHGB #### [id number] [place] [address] Metal Welder: Wellington Back MD Creatinine w/GFRon 4 Creatinine [Mass/Vol] 1.1 mg/dL High 0.50-0.90 [facility] Comment on above: Performed By: #### L IVP, CREG, BNP, CBC, TSH, LYTE, DIME, BUN #### [facility] [address] [place] [address] [place] [address] Metal Welder: Sharath Dennis MD #### LAYLA GLYHGB #### [address] [id number] [place] [address] Metal Welder: Wellington Back MD GFR/1.73 sq M.predicted among non-blacks MDRD (S/P/Bld) [Vol rate/Area] 50 mL/min/{1.73_m2} Low >60 [facility] Comment on above: Result Comment: These results [...] affects renal tubular secretion. Performed By: #### L IVP, CREG, BNP, CBC, TSH, LYTE, DIME, BUN #### [facility] [address] [place] [address] [place] [address] Metal Welder: Sharath Dennis MD #### LAYLA, GLYHGB #### [id number] [place] [address] Metal Welder: Wellington Back MD D-Dimer Teston 10-22-2023 D-Dimer Test 0.41 ug/mL FEU Normal 0.00-0.59 [facility] Comment on above: Result Comment: When combined [...] with distal DVT. Performed By: #### C P, ALICIA, CDP #### [facility] [address] [place] [address] Metal Welder: Sharath Dennis MD Electrolyteson 10-22-2023 Anion gap [Moles/Vol] 10 mmol/L Normal 9-16 [facility] Comment on above: Performed By: #### L IVP, CREG, BNP, CBC, TSH, LYTE, DIME, BUN #### [facility] [address] [place] [address] Metal Welder: Sharath Dennis MD #### LIPR, GLYHGB #### [facility] [address] [place], [place] [phone] Metal Welder: Wellington Back MD Chloride [Moles/Vol] 106 mmol/L Normal 98-107 [facility] Comment on above: Performed By: #### L IVP, CREG, BNP, CBC, TSH, LYTE, DIME, BUN #### [facility] [address] [place] [address] Metal Welder: Sharath Dennis MD #### LIPR, GLYHGB #### [facility] [address] [place], [place] [id number] Metal Welder: Wellington Back MD CO2 [Moles/Vol] 26 mmol/L Normal 20-31 [facility] Comment on above: Performed By: #### L IVP, CREG, BNP, CBC, TSH, LYTE, DIME, BUN #### [address] [place] [address] Metal Welder: Sharath Dennis MD #### LIPMicaela, GLYHGB #### [address] [id number] Metal Welder: Wellington Back MD Potassium [Moles/Vol] 4.2 mmol/L Normal 3.7-5.3 [facility] Comment on above: Performed By: #### L IVP, CREG, BNP, CBC, TSH, LYTE, DIME, BUN #### [address] [place] [address] Metal Welder: Sharath Dennis MD #### LAYLA GLYHGB #### [address] [id number] Metal Welder: Wellington Back MD Sodium [Moles/Vol] 142 mmol/L Normal 136-145 [facility] Comment on above: Performed By: #### L IVP, CREG, BNP, CBC, TSH, LYTE, DIME, BUN #### [address] [place] [id number] Metal Welder: Sharath Dennis MD #### LIPR, GLYHGB #### [address] [address] [place], [place] [phone] Metal Welder: Wellington Back MD Liver Profileon 10-22-2023 Albumin [Mass/Vol] 4.1 g/dL Normal 3.5-5.2 [facility] Comment on above: Performed By: #### L IVP, CREG, BNP, CBC, TSH, LYTE, DIME, BUN #### [facility] [address] [place] [address] [place] [address] Metal Welder: Sharath Dennis MD #### LIPR, GLYHGB #### [id number] [place], [place] [id number] Metal Welder: Wellington Back MD Albumin/Glob Ratio 1.6 Normal 1.0-2.5 [facility] Comment on above: Performed By: #### L IVP, CREG, BNP, CBC, TSH, LYTE, DIME, BUN #### [address] [place] [id number] ( Metal Welder: Sharath Dennis MD #### LIPR, GLYHGB #### [address] [id number] Metal Welder: Wellington Back MD Alkaline Phos 96 U/L Normal 35-104 [facility] Comment on above: Performed By: #### L IVP, CREG, BNP, CBC, TSH, LYTE, DIME, BUN #### [address] [place] [id number] Metal Welder: Sharath Dennis MD #### LIPMicaela, GLYHGB #### [address] [address] Metal Welder: Wellington Back MD ALT [Catalytic activity/Vol] 20 U/L Normal 10-35 [facility] Comment on above: Performed By: #### L IVP, CREG, BNP, CBC, TSH, LYTE, DIME, BUN #### [address] [place], [place] [phone] Metal Welder: Sharath Dennis MD #### LIPR, GLYHGB #### [address] [id number] Metal Welder: Wellington Back MD AST [Catalytic activity/Vol] 25 U/L Normal 10-35 [facility] Comment on above: Performed By: #### L IVP, CREG, BNP, CBC, TSH, LYTE, DIME, BUN #### [facility] [address] [place] [address] [address]. [place], [place] [id number] Metal Welder: Sharath Dennis MD #### LIPR, GLYHGB #### [address] [address] Metal Welder: Wellington Back MD Bilirubin [Mass/Vol] 0.5 mg/dL Normal 0.00-1.20 [facility] Comment on above: Performed By: #### L IVP, CREG, BNP, CBC, TSH, LYTE, DIME, BUN #### [address] [place], [place] [id number] Metal Welder: Sharath Dennis MD #### LIPR, GLYHGB #### [address] [id number] Metal Welder: Wellington Back MD Bilirubin, Indirect 0.2 mg/dL Normal 0.0-1.0 [facility] Comment on above: Performed By: #### L IVP, CREG, BNP, CBC, TSH, LYTE, DIME, BUN #### [address] [place], [place] [phone] Metal Welder: Sharath Dennis MD #### LIPR, GLYHGB #### [address] [address] Metal Welder: Wellington Back MD Bilirubin.indirect [Mass/Vol] 0.3 mg/dL Normal 0.00-0.30 [facility] Comment on above: Performed By: #### L IVP, CREG, BNP, CBC, TSH, LYTE, DIME, BUN #### [address] [place], [place] [id number] Metal Welder: Sharath Dennis MD #### LIPR, GLYHGB #### [address] [phone] Metal Welder: Wellington Back MD Protein [Mass/Vol] 6.7 g/dL Normal 6.6-8.7 [facility] Comment on above: Performed By: #### L IVP, CREG, BNP, CBC, TSH, LYTE, DIME, BUN #### [facility] [address] [place] [address] Metal Welder: Sharath Dennis MD #### LIPR, GLYHGB #### [facility] [address] [place], [place] [id number] Metal Welder: Wellington Back MD Thyroid Stim. Horm.on 2023 Thyroid Stim. Horm. 3.00 uIU/mL Normal 0.27-4.20 [facility] Comment on above: Performed By: #### C P, TROPI, CDP #### [facility] [address] [place] [address] Metal Welder: Sharath Dennis MD [facility] ESME DIGITAL SCREEN BILA TERALon 06-10-[address] [facility] ESME DIGITAL SCREEN BILATERAL EXAMINATION: SCREENING DIGITAL [...] to the patient regarding the results. The [employer] recommends annual mammograms for women 40 years and older. Interpreted by: Mel Gómez MD Signed by: Mel Gómez MD 06/10/23 Final result Normal [facility] BUN + Creatinineon Creatinine [Mass/Vol] 0.8 mg/dL Normal 0.5-0.9 [facility] Comment on above: Performed By: #### C ALICIA Christensen CDP #### [facility] [address] [place] [address] [place] [address] Metal Welder: Sharath Dennis MD GFR/1.73 sq M.predicted among non-blacks MDRD (S/P/Bld) [Vol rate/Area] 74 mL/min/{1.73_m2} Normal >60 [facility] Comment on above: Result Comment: These results [...] affects renal tubular secretion. Performed By: #### ALICIA Thapa, CDP #### [facility] [address] [place] [address] [place] [address] Metal Welder: Sharath Dennis MD Urea nitrogen [Mass/Vol] 19 mg/dL Normal 8-23 [facility] Comment on above: Performed By: #### ALICIA Thapa CDP #### [facility] [address] [place] [address] [place] [address] Metal Welder: Sharath Dennis MD CBCon 06-03-2023 Erythrocyte distribution width (RBC) [Ratio] 15.3 % High 11.8-14.4 [facility] Comment on above: Performed By: #### ALICIA Thapa, CDP #### [address] [place] [address] Metal Welder: Sharath Dennis MD Hematocrit (Bld) [Volume fraction] 42.9 % Normal 36.3-47.1 [facility] Comment on above: Performed By: #### C PALICIA, CDP #### [facility] [address] [place] [address] [place] [address] Metal Welder: Sharath Dennis MD Hemoglobin (Bld) [Mass/Vol] 13.7 g/dL Normal 11.9-15.1 [facility] Comment on above: Performed By: #### C ALICIA Christensen, CDP #### [address] [place], [place] [phone] Metal Welder: Sharath Dennis MD MCH (RBC) [Entitic mass] 30.4 pg Normal 25.2-33.5 [facility] Comment on above: Performed By: #### C ALICIA Christensen, CDP #### [address] [place] [address] Metal Welder: Sharath Dennis MD MCHC (RBC) [Mass/Vol] 31.9 g/dL Normal 28.4-34.8 [facility] Comment on above: Performed By: #### ALICIA Thapa, CDP #### [address] [place] [address] Metal Welder: Sharath Dennis MD MCV (RBC) [Entitic vol] 95.3 fL Normal 82.6-102.9 [facility] Comment on above: Performed By: #### ALICIA Thapa, CDP #### [address] [place] [address] Metal Welder: Sharath Dennis MD NRBC Automated 0.0 per 100 WBC Normal 0.0 [facility] Comment on above: Performed By: #### C ALICIA Christensen, CDP #### [address] [place] [address] Metal Welder: Sharath Dennis MD Platelet mean volume (Bld) [Entitic vol] 9.3 fL Normal 8.1-13.5 [facility] Comment on above: Performed By: #### C P, TROPI, CDP #### [facility] [address] [place], [place] [phone] Metal Welder: Sharath Dennis MD Platelets (Bld) [#/Vol] 276 10*3/uL Normal 138-453 [facility] Comment on above: Performed By: #### C P, TROPI, CDP #### [facility] [address] [place], [place] [phone] Metal Welder: Sharath Dennis MD RBC (Bld) [#/Vol] 4.50 10*6/uL Normal 3.95-5.11 [facility] Comment on above: Performed By: #### C P, TROPI, CDP #### [address] [place], [place] [phone] Metal Welder: Sharath Dennis MD WBC (Bld) [#/Vol] 12.2 10*3/uL High 3.5-11.3 [facility] Comment on above: Performed By: #### C PALICIA, CDP #### [address] [place], [place] [phone] Metal Welder: Sharath Dennis MD Electrolyteson 06-03-2023 Anion gap [Moles/Vol] 11 mmol/L Normal 9-17 [facility] Comment on above: Performed By: #### C P TROPI, CDP #### [facility] [address] [place], [place] [phone] Metal Welder: Sharath Dennis MD Chloride [Moles/Vol] 104 mmol/L Normal 98-107 [facility] Comment on above: Performed By: #### C P, TROPI, CDP #### [facility] [address] [place], [place] [phone] Metal Welder: Sharath Dennis MD CO2 [Moles/Vol] 26 mmol/L Normal 20-31 [facility] Comment on above: Performed By: #### C PALICIA, CDP #### [facility] [address] [place] [address] Metal Welder: Sharath Dennis MD Potassium [Moles/Vol] 4.1 mmol/L Normal 3.7-5.3 [facility] Comment on above: Performed By: #### C ALICIA Christensen, CDP #### [facility] [address] [place], [place] [phone] Metal Welder: Sharath Dennis MD Sodium [Moles/Vol] 141 mmol/L Normal 135-144 [facility] Comment on above: Performed By: #### C ALICIA Christensen CDP #### [facility] [address] [place] [address] Metal Welder: Sharath Dennis MD CBC with Auto Differentialon 10-21-2021 Absolute Eos # 0.20 [facility] Absolute Immature Granulocyte [facility] Absolute Lymph # 1.03 Low [facility] Absolute Park # 0.60 [facility] Basophils Absolute [facility] Basophils/100 WBC (Bld) 0 % 0 - 2 % [facility] Eosinophils/100 WBC (Bld) 5 % High 1 - 4 % [facility] Hematocrit (Bld) [Volume fraction] 38.4 % 36.3 - 47.1 % [facility] Hemoglobin (Bld) [Mass/Vol] 11.8 g/dL Low 11.9 - 15.1 g/dL [facility] Immature granulocytes/100 WBC (Bld) 0 % [address] [facility] Interpretation and review of laboratory results Abnormal [facility] Lymphocytes/100 WBC (Bld) 23 % Low 24 - 43 % [facility] MCH (RBC) [Entitic mass] 29.3 pg 25.2 - 33.[address] [facility] MCHC (RBC) [Mass/Vol] 30.7 g/dL 28.4 - 34.8 g/dL [facility] MCV (RBC) [Entitic vol] 95.3 fL 82.6 - 102.[address] [facility] Monocytes/100 WBC (Bld) 14 % High 3 - 12 % [facility] NRBC Automated 0.0 0.0 per [address] [facility] Platelet distribution width (Bld) [Ratio] 14.1 % 11.8 - 14.4 % [facility] Platelet mean volume (Bld) [Entitic vol] 9.8 fL 8.1 - 13.[address] [facility] Platelets (Bld) [#/Vol] 185 10*3/uL [facility] RBC (Bld) [#/Vol] 4.03 10*6/uL 3.95 - 5.1 1 m/uL [facility] Segmented neutrophils/100 WBC (Bld) 58 % 36 - 65 % [facility] Segs Absolute 2.[address] [facility] WBC (Bld) [#/Vol] 4.5 10*3/uL [facility] CMPon 10-21-2021 Albumin [Mass/Vol] 4.2 g/dL 3.5 - 5.2 g/dL [facility] Albumin/Globulin [Mass ratio] 1.7 {ratio} 1 - 2.[address] [facility] ALP (Bld) [Catalytic activity/Vol] 100 U/L 35 - 104 U/L [facility] ALT [Catalytic activity/Vol] 21 U/L 5 - 33 U/L [facility] Anion gap [Moles/Vol] 9 mmol/L 9 - 17 mmol/L [facility] AST [Catalytic activity/Vol] 21 U/L NINF - 32 U/L [facility] Bilirubin [Mass/Vol] 0.5 mg/dL 0.3 - 1 .2 mg/dL [facility] Calcium [Mass/Vol] 9.6 mg/dL 8.6 - 10. 4 mg/dL [facility] Chloride [Moles/Vol] 102 mmol/L 98 - 10 7 mmol/L [facility] CO2 [Moles/Vol] 27 mmol/L 20 - 31 mmol/L [facility] Creatinine [Mass/Vol] 0.73 mg/dL 0.5 - 0.9 mg/dL [facility] Free PSA/Total PSA [Mass fraction] 6.7 g/dL 6.4 - 8.3 g/dL [facility] GFR >60 60 - PI NF mL/min [facility] GFR Non- >60 60 - PINF mL/min [facility] Glucose [Mass/Vol] 94 mg/dL 70 - 99 mg/dL [facility] Interpretation and review of laboratory results Abnormal [facility] Potassium [Moles/Vol] 4.3 mmol/L 3.7 - 5.3 mmol/L [facility] Sodium [Moles/Vol] 138 mmol/L 135 - 144 mmol/L [facility] Urea nitrogen (BldV) [Mass/Vol] 20 mg/dL 8 - 23 mg/dL [facility] Urea nitrogen/Creatinine (Bld) [Mass ratio] 27 High 9 - 20 [facility] Laboratory - Chemistry and C hemistry - challengeon 10-21-2021 GFR/1.73 sq M.predicted MDRD (S/P/Bld) [Vol rate/Area] [facility] Comment on above: Average GFR for 70 o r more years old: 75 mL/min/1.73sq m Chronic Kidney Disease: <60 mL/min/1.73sq m Kidney failure: <15 mL/min/1.73sq m eGFR calculated using average adult body mass. Additional eGFR calculator available at: http://www.[employer]/multiple_crcl_2012.htm Stage 1: Some kidney damage normal GFR Stage 2: Mild kidney damage GFR 60-89 Stage 3: Moderate kidney damage GFR 30-59 Stage 4: Severe kidney damage GFR 15-29 Stage 5: Severe kidney damage GFR <15 ESRD - chronic treatment by dialysis or transplant Troponinon 10-21-2021 Troponin, High Sensitivity 13 ng/L 0 - 14 ng/L [facility] Comment on above: High Sensitivity Troponin values cannot be compared with other Troponin methodologies. Patients with high levels of Biotin oral intake (i.e >5mg/day) may have falsely decreased Troponin levels. Samples collected within 8 hours of biotin intake may require additional information for diagnosis. [facility] Interpretation and review of laboratory results Abnormal [facility] Troponin, High Sensitivity 16 ng/L High 0 - 14 ng/L [facility] Comment on above: High Sensitivity Troponin values cannot be compared with other Troponin methodologies. Patients with high levels of Biotin oral intake (i.e >5mg/day) may have falsely decreased Troponin levels. Samples collected within 8 hours of biotin intake may require additional information for diagnosis. [facility] XR FOOT LEFT (MIN 3 VIEWS)on 10-16-2021 No acute findings. [facility] EXAMINATION: THREE XRAY VIEWS OF THE LEFT FOOT 10/15/2021 4:02 pm COMPARISON: None. HISTORY: ORDERING SYSTEM PROVIDED HISTORY: Pain FINDINGS: Foot alignment is anatomic. Generalized osteopenia. No acute fracture. Mild degenerative change midfoot. Threaded screw anterior aspect of the calcaneus. Soft tissues unremarkable. [facility] Hermes Cortez DO - 10/16/2021 EXAMINATION: THREE XRAY VIEWS OF THE LEFT FOOT 10/15/2021 4:02 pm COMPARISON: None. HISTORY: ORDERING SYSTEM PROVIDED HISTORY: Pain FINDINGS: Foot alignment is anatomic. Generalized osteopenia. No acute fracture. Mild degenerative change midfoot. Threaded screw anterior aspect of the calcaneus. Soft tissues unremarkable. IMPRESSION: No acute findings. [facility] Work Phone: XR FOOT LEFT (MIN 3 VIEWS)Or dered By: Hermes Cortez on 10-16-[address] [facility] Work Phone: XR FOOT RIGHT (MIN 3 VIEWS)o n 10-16-2021 No acute findings. [facility] EXAMINATION: THREE XRAY VIEWS OF THE RIGHT FOOT 10/15/2021 4:03 pm COMPARISON: None. HISTORY: ORDERING SYSTEM PROVIDED HISTORY: Pain FINDINGS: No acute findings. Mild hallux valgus deformity. Moderate degenerative change midfoot and 1st metatarsophalangeal joint. Generalized osteopenia. Soft tissues unremarkable. [facility] Hermes Cortez DO - 10/16/2021 EXAMINATION: THREE XRAY VIEWS OF THE RIGHT FOOT 10/15/2021 4:03 pm COMPARISON: None. HISTORY: ORDERING SYSTEM PROVIDED HISTORY: Pain FINDINGS: No acute findings. Mild hallux valgus deformity. Moderate degenerative change midfoot and 1st metatarsophalangeal joint. Generalized osteopenia. Soft tissues unremarkable. IMPRESSION: No acute findings. [employer] Work Phone: XR FOOT RIGHT (MIN 3 VIEWS)O rdered By: Hermes Cortez on 10-16-2021 [employer] Work Phone: Basic Metabolic Panelon Anion gap [Moles/Vol] 10 mmol/L 9 - 17 mmol/L [facility] Calcium [Mass/Vol] 9.7 mg/dL 8.6 - 10. 4 mg/dL [facility] Chloride [Moles/Vol] 105 mmol/L 98 - 10 7 mmol/L [facility] CO2 [Moles/Vol] 27 mmol/L 20 - 31 mmol/L [facility] Creatinine [Mass/Vol] 0.84 mg/dL 0.5 - 0.9 mg/dL [facility] GFR >60 60 - PI NF mL/min [facility] GFR Non- >60 60 - PINF mL/min [facility] Glucose [Mass/Vol] 98 mg/dL 70 - 99 mg/dL [facility] Interpretation and review of laboratory results Abnormal [facility] Potassium [Moles/Vol] 4.5 mmol/L 3.7 - 5.3 mmol/L [facility] Sodium [Moles/Vol] 142 mmol/L 135 - 144 mmol/L [facility] Urea nitrogen (BldV) [Mass/Vol] 29 mg/dL High 8 - 23 mg/dL [facility] Urea nitrogen/Creatinine (Bld) [Mass ratio] 35 High 9 - 20 [facility] Laboratory - Chemistry and C hemistry - challengeon 10-15-2021 GFR/1.73 sq M.predicted MDRD (S/P/Bld) [Vol rate/Area] [facility] [employer] Comment on above: Average GFR for 70 o r more years old: 75 mL/min/1.73sq m Chronic Kidney Disease: <60 mL/min/1.73sq m Kidney failure: <15 mL/min/1.73sq m eGFR calculated using average adult body mass. Additional eGFR calculator available at: http://www.[employer]/multiple_crcl_2012.htm Stage 1: Some kidney damage normal GFR Stage 2: Mild kidney damage GFR 60-89 Stage 3: Moderate kidney damage GFR 30-59 Stage 4: Severe kidney damage GFR 15-29 Stage 5: Severe kidney damage GFR <15 ESRD - chronic treatment by dialysis or transplant No Panel Informationon 10-15 [facility] Sedimentation Rateon 022 Sed Rate 9 [facility] Uric Acidon 10-15-2021 Urate [Mass/Vol] 4.5 mg/dL 2.4 - 5.7 mg/dL [facility] XR FOOT LEFT (MIN 3 VIEWS)on 10-15-2021 Radiology Study observation (narrative) [facility] Work Phone: XR FOOT RIGHT (MIN 3 VIEWS)o n 10-15-2021 Radiology Study observation (narrative) [facility] [employer] Work Phone: CBC with Auto Differentialon 10-05-2021 Absolute Eos # 0.23 [facility] Absolute Immature Granulocyte 0.[address] [facility] Absolute Lymph # 1.92 [facility] Absolute Park # 1.14 [facility] Basophils Absolute [facility] Basophils/100 WBC (Bld) 0 % 0 - 2 % [facility] Eosinophils/100 WBC (Bld) 3 % 1 - 4 % [facility] Hematocrit (Bld) [Volume fraction] 38.6 % 36.3 - 47.1 % [facility] Hemoglobin (Bld) [Mass/Vol] 12.0 g/dL 11.9 - 15.1 g/dL [facility] Immature granulocytes/100 WBC (Bld) 1 % High [address] [facility] Interpretation and review of laboratory results Abnormal [facility] Lymphocytes/100 WBC (Bld) 24 % 24 - 43 % [facility] MCH (RBC) [Entitic mass] 29.6 pg 25.2 - 33.[address] [facility] MCHC (RBC) [Mass/Vol] 31.1 g/dL 28.4 - 34.8 g/dL [facility] MCV (RBC) [Entitic vol] 95.1 fL 82.6 - 102.[address] [facility] Monocytes/100 WBC (Bld) 15 % High 3 - 12 % [facility] NRBC Automated 0.0 0.0 per [address] [facility] Platelet distribution width (Bld) [Ratio] 13.2 % 11.8 - 14.4 % [facility] Platelet mean volume (Bld) [Entitic vol] 9.1 fL 8.1 - 13.[address] [facility] Platelets (Bld) [#/Vol] 278 10*3/uL [facility] RBC (Bld) [#/Vol] 4.06 10*6/uL 3.95 - 5.1 1 m/uL [facility] Segmented neutrophils/100 WBC (Bld) 57 % 36 - 65 % [facility] Segs Absolute 4.[address] [facility] WBC (Bld) [#/Vol] 7.9 10*3/uL [facility] CMPon 10-05-2021 Albumin [Mass/Vol] 3.7 g/dL 3.5 - 5.2 g/dL [facility] Albumin/Globulin [Mass ratio] 1.5 {ratio} 1 - 2.[address] [facility] ALP (Bld) [Catalytic activity/Vol] 93 U/L 35 - 104 U/L [facility] ALT [Catalytic activity/Vol] 20 U/L 5 - 33 U/L [facility] Anion gap [Moles/Vol] 10 mmol/L 9 - 17 mmol/L [facility] AST [Catalytic activity/Vol] 17 U/L NINF - 32 U/L [facility] Bilirubin [Mass/Vol] 0.31 mg/dL 0.3 - 1 .2 mg/dL [facility] Calcium [Mass/Vol] 9.1 mg/dL 8.6 - 10. 4 mg/dL [facility] Chloride [Moles/Vol] 104 mmol/L 98 - 10 7 mmol/L [facility] CO2 [Moles/Vol] 25 mmol/L 20 - 31 mmol/L [facility] Creatinine [Mass/Vol] 0.7 mg/dL 0.5 - 0.9 mg/dL [facility] Free PSA/Total PSA [Mass fraction] 6.1 g/dL Low 6.4 - 8.3 g/dL [facility] GFR >60 60 - PI NF mL/min [facility] GFR Non- >60 60 - PINF mL/min [facility] Glucose [Mass/Vol] 95 mg/dL 70 - 99 mg/dL [facility] Interpretation and review of laboratory results Abnormal [facility] Potassium [Moles/Vol] 4.2 mmol/L 3.7 - 5.3 mmol/L [facility] Sodium [Moles/Vol] 139 mmol/L 135 - 144 mmol/L [facility] Urea nitrogen (BldV) [Mass/Vol] 35 mg/dL High 8 - 23 mg/dL [facility] Urea nitrogen/Creatinine (Bld) [Mass ratio] 50 High 9 - [address] [facility] COVID-19, Rapidon 10-05-2021 SARS-CoV-2 (COVID-19) RNA LADAN+probe Ql (Unsp spec) Not detected Not Detected [facility] Comment on above: Rapid NAAT: The [...] management decisions. Fact sheet for Healthcare Providers: https://www.fda.gov/media/604387/download Fact sheet for Patients: https://www.fda.gov/media/845556/download Methodology: Isothermal Nucleic Acid Amplification Specimen Description .NASOPHARYNGEAL SWAB [facility] CT Head WO Contraston 2021 No acute intracrania l abnormality. Findings were discussed with ELIECER BURRIS at 2:38 pm on 10/05/2021. [facility] EXAMINATION: CT OF THE HEAD WITHOUT [...] of the visualized skull or soft tissues. [facility] Kel Hennessy MD - 10/05/2021 [...] ELIECER BURRIS at 2:38 pm on 10/05/2021. [employer] Phone: Radiology Study observation (narrative) [employer] Phone: CT Head WO ContrastOrdered B y: Kel Hennessy on 10-05-2021 [employer] Phone: CTA HEAD NECK W CONTRASTon 0 10-05-2021 No acute abnormality or flow limiting stenosis of the major arteries of the head and neck. 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 [facility] EXAMINATION: CTA OF THE HEAD AND [...] fluid collection. The kevin-white differentiation is maintained. [facility] Angelito Alfonso MD - 10/05/2021 EXAMINATION: CTA OF THE [...] by teleneuro TECHNOLOGIST PROVIDED HISTORY: Requested by [employer] Decision Support Exception - unselect if not [...] proximal to mid basilar artery, normal variant. [employer] Work Phone: Radiology Study observation (narrative) [employer] Work Phone: CTA HEAD NECK W CONTRASTOrde red By: Angelito Alfonso on 10-05-2021 [employer] Work Phone: Glucose, Whole Bloodon 10-05 Glucose [Mass/Vol] 109 mg/dL High 74 - 100 mg/dL [employer] Interpretation and review of laboratory results Abnormal [facility] - Chemistry and C hemistry - challengeon 10-05-2021 GFR/1.73 sq M.predicted MDRD (S/P/Bld) [Vol rate/Area] [employer] Comment on above: Average GFR for 70 o r more years old: 75 mL/min/1.73sq m Chronic Kidney Disease: <60 mL/min/1.73sq m Kidney failure: <15 mL/min/1.73sq m eGFR calculated using average adult body mass. Additional eGFR calculator available at: http://www.[employer]/multiple_crcl_2012.htm Stage 1: Some kidney damage normal GFR Stage 2: Mild kidney damage GFR 60-89 Stage 3: Moderate kidney damage GFR 30-59 Stage 4: Severe kidney damage GFR 15-29 Stage 5: Severe kidney damage GFR <15 ESRD - chronic treatment by dialysis or transplant Magnesiumon 10-05-2021 Magnesium [Mass/Vol] 1.9 mg/dL 1.6 - 2 .6 mg/dL [facility] [facility] No Panel Informationon 10-[address] [facility] POCT glucoseon 10-05-2021 Glucose [Mass/Vol] 109 mg/dL [facility] Work Phone: Interpretation and review of laboratory results Normal [facility] Work Phone: QC OK? y [facility] Work Phone: [facility] Work Phone: Troponinon 10-05-2021 Troponin, High Sensitivity 13 ng/L 0 - 14 ng/L [facility] Comment on above: High Sensitivity Troponin values cannot be compared with other Troponin methodologies. Patients with high levels of Biotin oral intake (i.e >5mg/day) may have falsely decreased Troponin levels. Samples collected within 8 hours of biotin intake may require additional information for diagnosis. [facility] Urinalysis with Microscopico n 10-05-2021 Bacteria, UA TRACE Abnormal None [facility] Bilirubin Urine Negative NEGATIVE [facility] Color, UA Yellow Yellow [facility] Epithelial Cells UA 0 TO 2 [facility] Glucose, Ur Negative NEGATIVE [facility] Interpretation and review of laboratory results Abnormal [facility] Ketones Ql (U) Negative NEGATIVE [facility] Leukocyte esterase Test strip Ql (U) SMALL Abnormal NEGATIVE [facility] Nitrite, Urine Negative NEGATIVE [facility] pH, UA 7.0 5 - [address] [facility] Protein, UA Negative NEGATIVE [facility] RBC, UA None [facility] Specific [place], UA Low 1.01 - 1.[address] [facility] Turbidity UA Clear Clear [facility] Urine Hgb Negative NEGATIVE [facility] Urobilinogen, Urine Normal Normal [facility] WBC, UA 2 TO 5 [facility] XR CHEST PORTABLEon 10-06-19 No acute process. PN RIS CONSOLIDATED EXAMINATION: ONE XRAY VIEW OF THE CHEST 10/05/2021 11:34 am COMPARISON: 06/28/2009 HISTORY: ORDERING SYSTEM PROVIDED HISTORY: Dyspnea TECHNOLOGIST PROVIDED HISTORY: Dyspnea FINDINGS: The lungs are without acute focal process. Stable small calcified granuloma in the left apex. There is no effusion or pneumothorax. The cardiomediastinal silhouette is stable. The osseous structures are stable. [facility] [place] RIS CONSOLIDATED Mikael Valdes MD - 10/05/2021 EXAMINATION: [...] structures are stable. IMPRESSION: No acute process. [facility] Work Phone: Radiology Study observation (narrative) [facility] Work Phone: XR CHEST PORTABLEOrdered By: Mikael Valdes on 10-05-[address] [facility] Work Phone: BUNon 07-22-2021 Urea nitrogen (BldV) [Mass/Vol] 33 mg/dL High 8 - 23 mg/dL [facility] Brain Natriuretic Peptideon 07-22-2021 Natriuretic peptide B (Bld) [Mass/Vol] 186 pg/mL <[address] [facility] Comment on above: An age-independent cutoff point of 300 pg/ml has a 98% negative predictive value excluding acute heart failure. CBCon 07-22-2021 Hematocrit (Bld) [Volume fraction] 37.0 % 36.3 - 47.1 % [facility] Hemoglobin (Bld) [Mass/Vol] 11.7 g/dL Low 11.9 - 15.1 g/dL [facility] Interpretation and review of laboratory results Abnormal [facility] MCH (RBC) [Entitic mass] 29.5 pg 25.2 - 33.[address] [facility] MCHC (RBC) [Mass/Vol] 31.6 g/dL 28.4 - 34.8 g/dL [facility] MCV (RBC) [Entitic vol] 93.2 fL 82.6 - 102.[address] [facility] NRBC Automated 0.0 0.0 per [address] [facility] Platelet distribution width (Bld) [Ratio] 13.8 % 11.8 - 14.4 % [facility] Platelet mean volume (Bld) [Entitic vol] 10.2 fL 8.1 - 13.[address] [facility] Platelets (Bld) [#/Vol] 191 10*3/uL [facility] RBC (Bld) [#/Vol] 3.97 10*6/uL 3.95 - 5.1 1 m/uL [facility] WBC (Bld) [#/Vol] 5.3 10*3/uL [facility] Creatinineon 07-22-2021 Creatinine [Mass/Vol] 0.69 mg/dL 0.50 - 0.90 mg/dL [facility] GFR >60 >60 mL/min [facility] GFR Non- >60 >60 mL/min [facility] Electrolyte Panelon 07-23-19 22 Anion gap [Moles/Vol] 8 mmol/L Low 9 - 17 mmol/L [facility] Chloride [Moles/Vol] 107 mmol/L 98 - 10 7 mmol/L [facility] CO2 [Moles/Vol] 27 mmol/L 20 - 31 mmol/L [facility] Potassium [Moles/Vol] 4.2 mmol/L 3.7 - 5.3 mmol/L [facility] Sodium [Moles/Vol] 142 mmol/L 135 - 144 mmol/L [facility] Laboratory - Chemistry and C hemistry - challengeon 07-22-2021 GFR/1.73 sq M.predicted MDRD (S/P/Bld) [Vol rate/Area] [facility] Comment on above: Average GFR for 70 o r more years old: 75 mL/min/1.73sq m Chronic Kidney Disease: <60 mL/min/1.73sq m Kidney failure: <15 mL/min/1.73sq m eGFR calculated using average adult body mass. Additional eGFR calculator available at: http://www.[facility]/multiple_crcl_2012.htm Stage 1: Some kidney damage normal GFR Stage 2: Mild kidney damage GFR 60-89 Stage 3: Moderate kidney damage GFR 30-59 Stage 4: Severe kidney damage GFR 15-29 Stage 5: Severe kidney damage GFR <15 ESRD - chronic treatment by dialysis or transplant No Panel Informationon 07-22 Interpretation and review of laboratory results Abnormal [facility] VL DUP LOWER EXTREMITY VENOU S LEFTon 03-04-2021 Result, Unknown Provider - 03/04/2021 [facility] Vascular Lower Extremities DVT Study Procedure Patient Name SPENCER Date of Study 03/03/2021 EVER Mckay Date of 1940 Gender Female Age 80 year(s) Race Room Number Corporate ID [id number] # Patient Acct [id number] # MR # [id number] Group Account Director Katie Jackson RVT Interpreting Physician Alissa Marx Referring Referring Physician Alissa Marx Nurse Practitioner Additional Comments REsults were reported to Dr. Marx's office 03/03/2021 @ 0827. Procedure Type of Study: Veins: Lower Extremities [...] ! ! + -----+---------+------ + --------- + [facility] Phone: VL DUP LOWER EXTREMITY VENOU S LEFTOrdered By: Unknown Result on 03-04-2021 [employer] DUP LOWER EXTREMITY VENOU S LEFTon 03-03-2021 Radiology Study observation (narrative) [employer] Phone: IR ANGIOGRAM CAROTID CEREBRA L BILATERALon [...] rotational angiography 5. Right common femoral artery (STRATEGIC ACCOUNT EXECUTIVE) angiogram Neurointerventionalist : Josesito Lomax MD, MS [place]: Pantera Mcdonald MD PhD Ralf Christie MD [...] for TIA, hypertension, diabetes presented today to [facility] for diagnostic cerebral angiogram to assess [...] with a micropuncture technique, and a 5 Moldovan intravascular sheath was placed within the right common femoral artery, establishing arterial access using Seldinger technique. 2000u of heparin IV was administered. A 5 [place]ovan multipurpose catheter was then advanced over a [...] was interpreted (more content not included)... Normal [facility] HEMOGLOBIN AND HEMATOCRIT, B LOODOrdered By: King Monteiro on 09-04-2020 Hematocrit (Bld) [Volume fraction] 30.5 % Low 36.3 - 47.1 % [employer] Phone: Hemoglobin.gastrointes tinal spec 1 Ql (Stl) 9.7 g/dL Low 11.9 - 15.1 g/dL [employer] Phone: Interpretation and review of laboratory results Abnormal [facility] Phone: [facility] Phone: Hgb/Hcton 09-04-2020 Hematocrit (Bld) [Volume fraction] 30.5 % Low 36.3-47.1 [facility] Comment on above: Performed By: #### H H ####[address] [place], [place] [id number] Lab Director: Wellington Back MD Hemoglobin (Bld) [Mass/Vol] 9.7 g/dL Low 11.9-15.1 [facility] Comment on above: Performed By: #### H H ####[address] [place], [place] [id number] Lab Director: Wellington Back MD Hematocrit (Bld) [Volume fraction] 30.2 % Low 36.3-47.1 [facility] Comment on above: Performed By: #### H H ####[address] [place] [address] Lab Director: Wellington Back MD Hemoglobin (Bld) [Mass/Vol] 9.4 g/dL Low 11.9-15.1 [facility] Comment on above: Performed By: #### H H ####[address] [address] Lab Director: Wellington Back MD Basic Metab w/rfx MGon 09-03 (cont.) Normal [facility] Comment on above: Result Comment: Aver age GFR for 70 or more years old: 75 mL/min/1.73sq m Chronic Kidney Disease: <60 mL/min/1.73sq m Kidney failure: <15 mL/min/1.73sq m eGFR calculated using average adult body mass. Additional eGFR calculator available at: http://www.Attero.Mobule/multiple_crcl_2012.htm Performed By: #### RACHEL MINA #### [place] [address] Metal Welder: Wellington Back MD Anion gap [Moles/Vol] 12 mmol/L Normal 9-17 [facility] Comment on above: Performed By: #### NEISHA MINAX #### [facility] [address] [place] [address] Metal Welder: Wellington Back MD Calcium [Mass/Vol] 8.2 mg/dL Low 8.6-10.4 [facility] Comment on above: Performed By: #### Micaela BUCK BMPX #### [facility] [address] [place] [address] Metal Welder: Wellington Back MD Chloride [Moles/Vol] 106 mmol/L Normal 98-107 [facility] Comment on above: Performed By: #### R EJEC, BMPX #### [facility] [address] [place] [address] Metal Welder: Wellington Back MD CO2 [Moles/Vol] 21 mmol/L Normal 20-31 [facility] Comment on above: Performed By: #### R EJEC, BMPX #### [facility] [address] [place] [address] Metal Welder: Wellington Back MD Creatinine [Mass/Vol] 0.50 mg/dL Normal 0.50-0.90 [facility] Comment on above: Performed By: #### R EJEC, BMPX #### [facility] [address] [place] [address] Metal Welder: Wellington Back MD GFR, Amer >60 Normal >60 [facility] Comment on above: Performed By: #### R EJEC, BMPX #### [facility] [address] [place] [address] Metal Welder: Wellington Back MD GFR,non Amer >60 Normal >60 [facility] Comment on above: Performed By: #### R EJEC, BMPX #### [facility] [address] [place] [address] Metal Welder: Wellington Back MD Glucose [Mass/Vol] 94 mg/dL Normal 70-99 [facility] Comment on above: Performed By: #### R EJEC, BMPX #### [facility] [address] [place] [address] Metal Welder: Wellington Back MD Potassium [Moles/Vol] 4.7 mmol/L Normal 3.7-5.3 [facility] Comment on above: Result Comment: SPEC IMEN SLIGHTLY HEMOLYZED, RESULTS MAY BE ADVERSELY AFFECTED. Performed By: #### R EJEC, BMPX #### [address] [address] Metal Welder: Wellington Back MD Sodium [Moles/Vol] 139 mmol/L Normal 135-144 [facility] Comment on above: Performed By: #### R EJEC, BMPX #### [address] [address] Metal Welder: Wellington Back MD Urea nitrogen [Mass/Vol] 12 mg/dL Normal 8-23 [facility] Comment on above: Performed By: #### R EJEC, BMPX #### [address] [address] Metal Welder: Wellington Back MD BUN/CRE Ratio NOT REPORTED Normal - [facility] Comment on above: Performed By: #### R EJEC, BMPX #### [address] [address] Metal Welder: Wellington Back MD Staging: NOT REPORTED Normal [facility] Comment on above: Performed By: #### R EJEC, BMPX #### [address] [address] Metal Welder: Wellington Back MD (cont.) [facility] Comment on above: Result Comment: Aver age GFR for 70 or more years old: 75 mL/min/1.73sq m Chronic Kidney Disease: <60 mL/min/1.73sq m Kidney failure: <15 mL/min/1.73sq m eGFR calculated using average adult body mass. Additional eGFR calculator available at: http://www.Attero.com/multiple_crcl_2012.htm Performed By: #### B MPX, PROL, TSHX, LIPR #### [address] [address] Metal Welder: Wellington Back MD Anion gap [Moles/Vol] 16 mmol/L Normal 9-17 [facility] Comment on above: Performed By: #### B MPX, PROL, TSHX, LIPR #### [address] [address] Metal Welder: Wellington Back MD Calcium [Mass/Vol] 8.7 mg/dL Normal 8.6-10.4 [facility] Comment on above: Performed By: #### B MPX, PROL, TSHX, LIPR #### [address] [address] Metal Welder: Wellington Back MD Chloride [Moles/Vol] 100 mmol/L Normal 98-107 [facility] Comment on above: Performed By: #### B MPX, PROL, TSHX, LIPR #### [address] [address] Metal Welder: Wellington Back MD CO2 [Moles/Vol] 20 mmol/L Normal 20-31 [facility] Comment on above: Performed By: #### B MPX, PROL, TSHX, LIPR #### [address] [address] Metal Welder: Wellington Back MD Creatinine [Mass/Vol] 0.70 mg/dL Normal 0.50-0.90 [facility] Comment on above: Performed By: #### B MPX, PROL, TSHX, LIPR #### [address] [address] Metal Welder: Wellington Back MD GFR, Amer >60 Normal >60 [facility] Comment on above: Performed By: #### B MPX, PROL, TSHX, LIPR #### [facility] [address] [place] [address] Metal Welder: Wellington Back MD GFR,non Amer >60 Normal >60 [facility] Comment on above: Performed By: #### B MPX, PROL, TSHX, LIPR #### [facility] [address] [place] [phone] Metal Welder: Wellington Back MD Glucose [Mass/Vol] 109 mg/dL High 70-99 [facility] Comment on above: Performed By: #### B MPX, PROL, TSHX, LIPR #### [facility] [address] [place] [address] Metal Welder: Wellington Back MD Potassium [Moles/Vol] 4.5 mmol/L Normal 3.7-5.3 [facility] Comment on above: Performed By: #### B MPX, PROL, TSHX, LIPR #### [facility] [address] [place] [address] Metal Welder: Wellington Back MD Sodium [Moles/Vol] 136 mmol/L Normal 135-144 [facility] Comment on above: Performed By: #### B MPX, PROL, TSHX, LIPR #### [address] [phone] Metal Welder: Wellington Back MD Urea nitrogen [Mass/Vol] 19 mg/dL Normal 8-23 [facility] Comment on above: Performed By: #### B MPX, PROL, TSHX, LIPR #### [address] [phone] Metal Welder: Wellington Back MD Basic Metabolic Panel w/ Ref rima to MGOrdered By: Ralf Christie on 09-03-2020 Anion gap [Moles/Vol] 12 mmol/L 9 - 17 mmol/L [facility] [employer] Phone: Calcium [Mass/Vol] 8.2 mg/dL Low 8.6 - 10. 4 mg/dL [facility] [employer] Phone: Chloride [Moles/Vol] 106 mmol/L 98 - 10 7 mmol/L [employer] Phone: CO2 [Moles/Vol] 21 mmol/L 20 - 31 mmol/L [employer] Phone: Creatinine [Mass/Vol] 0.5 mg/dL 0.50 - 0.90 mg/dL [employer] Phone: GFR >60 >60 mL/min [employer] Phone: GFR Non- >60 >60 mL/min [facility] Phone: GFR/1.73 sq M.predicted MDRD (S/P/Bld) [Vol rate/Area] [employer] Phone: Comment on above: Average GFR for 70 o r more years old: 75 mL/min/1.73sq m Chronic Kidney Disease: <60 mL/min/1.73sq m Kidney failure: <15 mL/min/1.73sq m eGFR calculated using average adult body mass. Additional eGFR calculator available at: http://www.[facility]/multiple_crcl_2012.htm GFR/1.73 sq M.predicted MDRD (S/P/Bld) [Vol rate/Area] NOT REPORTED [employer] Phone: Glucose [Mass/Vol] 94 mg/dL 70 - 99 mg/dL [employer] Phone: Interpretation and review of laboratory results Abnormal [employer] Phone: Potassium [Moles/Vol] 4.7 mmol/L 3.7 - 5.3 mmol/L [employer] Phone: Comment on above: SPECIMEN SLIGHTLY HE MOLYZED, RESULTS MAY BE ADVERSELY AFFECTED. Sodium [Moles/Vol] 139 mmol/L 135 - 144 mmol/L [employer] Phone: Urea nitrogen (BldV) [Mass/Vol] 12 mg/dL 8 - 23 mg/dL [employer] Phone: Urea nitrogen/Creatinine (Bld) [Mass ratio] NOT REPORTED [employer] Phone: [employer] Phone: Basic Metabolic Panel w/ Ref rima to MGOrdered By: Suraj Peters on 09-03-2020 Anion gap [Moles/Vol] 16 mmol/L 9 - 17 mmol/L [employer] Phone: Calcium [Mass/Vol] 8.7 mg/dL 8.6 - 10. 4 mg/dL [employer] Phone: Chloride [Moles/Vol] 100 mmol/L 98 - 10 7 mmol/L [employer] Phone: CO2 [Moles/Vol] 20 mmol/L 20 - 31 mmol/L [employer] Phone: Creatinine [Mass/Vol] 0.7 mg/dL 0.50 - 0.90 mg/dL [employer] Phone: GFR >60 >60 mL/min [employer] Phone: GFR Non- >60 >60 mL/min [employer] Phone: GFR/1.73 sq M.predicted MDRD (S/P/Bld) [Vol rate/Area] [employer] Phone: Comment on above: Average GFR for 70 o r more years old: 75 mL/min/1.73sq m Chronic Kidney Disease: <60 mL/min/1.73sq m Kidney failure: <15 mL/min/1.73sq m eGFR calculated using average adult body mass. Additional eGFR calculator available at: http://www.Attero.com/multiple_crcl_2012.htm GFR/1.73 sq M.predicted MDRD (S/P/Bld) [Vol rate/Area] NOT REPORTED [employer] Phone: Glucose [Mass/Vol] 109 mg/dL High 70 - 99 mg/dL [employer] Phone: Interpretation and review of laboratory results Abnormal [employer] Phone: Potassium [Moles/Vol] 4.5 mmol/L 3.7 - 5.3 mmol/L [employer] Phone: Sodium [Moles/Vol] 136 mmol/L 135 - 144 mmol/L [employer] Phone: Urea nitrogen (BldV) [Mass/Vol] 19 mg/dL 8 - 23 mg/dL [employer] Work Phone: Urea nitrogen/Creatinine (Bld) [Mass ratio] NOT REPORTED [employer] Phone: CBC WITH AUTO DIFFERENTIALOr dered By: King Monteiro on 09-03-2020 [employer] Eos # 0.05 [employer] [facility] Work Phone: Absolute Immature Granulocyte 0.03 [employer] Work Phone: Absolute Lymph # 1.01 Low [employer] [facility] Work Phone: Absolute Park # 1.26 High [employer] [facility] Work Phone: Basophils (Bld) [#/Vol] 10*3/uL [employer] Work Phone: Basophils/100 WBC (Bld) 0 % 0 - 2 % [employer] Phone: Differential Type NOT REPORTED [employer] Phone: Eosinophils/100 WBC (Bld) 1 % 1 - 4 % [employer] Work Phone: Hematocrit (Bld) [Volume fraction] 30.2 % Low 36.3 - 47.1 % [employer] Phone: Hemoglobin.gastrointes tinal spec 1 Ql (Stl) 9.8 g/dL Low 11.9 - 15.1 g/dL [employer] Phone: Immature granulocytes/100 WBC (Bld) 0 % 0 [employer] Work Phone: Interpretation and review of laboratory results Abnormal [employer] Phone: Lymphocytes/100 WBC (Bld) 14 % Low 24 - 43 % [employer] Phone: MCH (RBC) [Entitic mass] 29.7 pg 25.2 - 33.5 pg [employer] Phone: MCHC (RBC) [Mass/Vol] 32.5 g/dL 28.4 - 34.8 g/dL [employer] Phone: MCV (RBC) [Entitic vol] 91.5 fL 82.6 - 102.9 fL [employer] Phone: Monocytes/100 WBC (Bld) 17 % High 3 - 12 % [employer] Phone: NRBC Automated 0.0 0.0 per 100 WBC [employer] Phone: Platelet distribution width (Bld) [Ratio] 14.8 % High 11.8 - 14.4 % [employer] Phone: Platelet mean volume (Bld) [Entitic vol] NOT REPORTED 8.1 - 13.5 fL [employer] Phone: Platelets (Bld) [#/Vol] See Reflexed IPF Result [employer] Phone: RBC (Bld) [#/Vol] 3.30 10*6/uL Low 3.95 - 5.1 1 m/uL [employer] Phone: RBC (Bld) [#/Vol] ANISOCYTOSIS PRESENT [employer] Phone: Segmented neutrophils/100 WBC (Bld) 67 % High 36 - 65 % [employer] Phone: Segs [employer] Work Phone: WBC (Bld) [#/Vol] 7.2 10*3/uL [employer] Phone: WBC (Bld) [#/Vol] NOT REPORTED [facility] [employer] Phone: [facility] [employer] Phone: CBC with Diffon 09-03-2020 Abs. Basophil <0.03 Normal 0.00-0.20 [facility] Comment on above: Performed By: #### C DP, IPF ####[address] [address])[phone] Director: Wellington Back MD Abs.Imm.Granulocyte 0.03 k/uL Normal 0.00-0.30 [facility] Comment on above: Performed By: #### C DP, IPF ####[place], [place] [address])[phone] Director: Wellington Back MD Abs.Neutrophil (Seg) 4.86 k/uL Normal 1.50-8.10 [facility] Comment on above: Performed By: #### C DP, IPF ####[address] [address])[phone] Director: Wellington Back MD Basophils/100 WBC (Bld) 0 % Normal 0-2 [facility] Comment on above: Performed By: #### C DP, IPF ####[address] [address])[phone] Director: Wellington Back MD Eosinophils (Bld) [#/Vol] 0.05 10*3/uL Normal 0.00-0.44 [facility] Comment on above: Performed By: #### C DP, IPF ####[address] [address])[phone] Director: Wellington Back MD Eosinophils/100 WBC (Bld) 1 % Normal 1-4 [facility] Comment on above: Performed By: #### C DP, IPF ####[address] [address])[phone] Director: Wellington Back MD Erythrocyte distribution width (RBC) [Ratio] 14.8 % High 11.8-14.4 [facility] Comment on above: Performed By: #### C DP, IPF ####[address] [address])[phone] Director: Wellington Back MD Hematocrit (Bld) [Volume fraction] 30.2 % Low 36.3-47.1 [facility] Comment on above: Performed By: #### C DP, IPF ####[address] [address])[phone] Director: Wellington Back MD Hemoglobin (Bld) [Mass/Vol] 9.8 g/dL Low 11.9-15.1 [facility] Comment on above: Performed By: #### C DP, IPF ####[address] [address])[phone] Director: Wellington Back MD Immature granulocytes/100 WBC (Bld) 0 % Normal 0 [facility] Comment on above: Performed By: #### C DP, IPF ####[address] [address])[phone] Director: Wellington Back MD Lymphocytes (Bld) [#/Vol] 1.01 10*3/uL Low 1.10-3.70 [facility] Comment on above: Performed By: #### C DP, IPF ####[facility] [address] [place], [place] [address])[phone] Director: Wellington Back MD Lymphocytes/100 WBC (Bld) 14 % Low 24-43 [facility] Comment on above: Performed By: #### C DP, IPF ####[facility] [address] [place], [place] [phone] Director: Wellington Back MD MCH (RBC) [Entitic mass] 29.7 pg Normal 25.2-33.5 [facility] Comment on above: Performed By: #### C DP, IPF ####[facility] [address] [place], [place] [phone] Director: Wellington Back MD MCHC (RBC) [Mass/Vol] 32.5 g/dL Normal 28.4-34.8 [facility] Comment on above: Performed By: #### C DP, IPF ####[facility] [address] [place] [address] [phone] Director: Wellington Back MD MCV (RBC) [Entitic vol] 91.5 fL Normal 82.6-102.9 [facility] Comment on above: Performed By: #### C DP, IPF ####[place], [place] [address])[phone] Director: Wellington Back MD Monocytes (Bld) [#/Vol] 1.26 10*3/uL High 0.10-1.20 [facility] Comment on above: Performed By: #### C DP, IPF ####[address] [phone] Director: Wellington Back MD Monocytes/100 WBC (Bld) 17 % High 3-12 [facility] Comment on above: Performed By: #### C DP, IPF ####[facility] [address] [place], [place] [phone] Director: Wellington Back MD Neutrophil (Seg) 67 % High 36-65 [facility] Comment on above: Performed By: #### C DP, IPF ####[facility] [address] [place], [place] [phone] Director: Wellington Back MD NRBC Automated 0.0 per [address] [facility] Comment on above: Performed By: #### C DP, IPF ####[facility] [address] [place] [address] Lab Director: Wellington Back MD Platelet Count See Reflexed IPF Result Normal 138-453 [facility] Comment on above: Performed By: #### C DP, IPF ####[facility] [address] [place] [address] Lab Director: Wellington Back MD RBC (Bld) [#/Vol] 3.30 10*6/uL Low 3.95-5.11 [facility] Comment on above: Performed By: #### C DP, IPF ####[facility] [place] [address] Lab Director: Wellington Back MD RBC morphology finding Nom (Bld) ANISOCYTOSIS PRESENT Normal [facility] [facility] Comment on above: Performed By: #### C DP, IPF ####[address] [address] Lab Director: Wellington Back MD WBC (Bld) [#/Vol] 7.2 10*3/uL Normal 3.5-11.3 [facility] Comment on above: Performed By: #### C DP, IPF ####[facility] [place] [address] Lab Director: Wellington Back MD Auto Diff Performed NOT REPORTED Normal [facility] Comment on above: Performed By: #### C DP, IPF ####[facility] [id number] [place] [address] Lab Director: Wellington Back MD MPV NOT REPORTED Normal 8.1-13.5 [facility] Comment on above: Performed By: #### C DP, IPF ####[facility] [address] [place] [address] Lab Director: Wellington Back MD WBC Morphology NOT REPORTED Normal [facility] Comment on above: Performed By: #### C DP, IPF ####[facility] [id number] [place] [address] lab Director: Wellington Back MD CBC with DiffOrdered By: Jason Monteiro on 09-03-2020 Platelet Estimate NOT REPORTED Normal [facility] Phone: Comment on above: Performed By: #### C DP, IPF ####[facility] [place] [address] lab Director: Wellington Back MD CT HEAD [...] Aguilar Alba MD 09/03/[address] [facility] CT HEAD WO CONTRASTOrdered B y: Jayme Morton on 09-03-2020 No acute intracrania l hemorrhage identified. [facility] Phone: EXAMINATION: CT OF T HE HEAD [...] of the visualized skull or soft tissues. [facility] Phone: Jaquan, [facility] Incoming Radiant Results From [facility] - 09/03/2020 1:06 PM EDT EXAMINATION: CT [...] tissues. IMPRESSION: No acute intracranial hemorrhage identified. [facility] Phone: [facility] Phone: HEMOGLOBIN AND HEMATOCRIT, B LOODOrdered By: King Monteiro on 09-03-2020 Hematocrit (Bld) [Volume fraction] 30.2 % Low 36.3 - 47.1 % [facility] Phone: Hemoglobin.gastrointes tinal spec 1 Ql (Stl) 9.4 g/dL Low 11.9 - 15.1 g/dL [facility] Phone: Interpretation and review of laboratory results Abnormal [facility] Phone: [facility] Phone: Hemoglobin A1Con 09-03-2020 Glucose [Mass/Vol] 131 mg/dL Normal [facility] Comment on above: Result Comment: The ADA and AACC recommend providing the estimated average glucose result to permit better patient understanding of their HBA1c result. Performed By: #### S STAR #### [facility] [address] [place] [address] Metal Welder: Malik Hart DO [address] [address] Metal Welder: Wellington Back MD #### GLYHGB #### [facility] [address] [place] [address] Metal Welder: Wellington Back MD HbA1c (Bld) [Mass fraction] 6.2 % High 4.0-6.0 [facility] Comment on above: Performed By: #### Marina GRAVES #### [facility] [address] [place] [address] Metal Welder: Malik Hart DO [address] [address] Metal Welder: Wellington Back MD #### GLYHGB #### [address] [address] Metal Welder: Wellington Back MD Hemoglobin [id number] By: Alena Metz on 09-03-2020 Glucose [Mass/Vol] 131 mg/dL [facility] [employer] Phone: Comment on above: The ADA and AACC rec ommend providing the estimated average glucose result to permit better patient understanding of their HBA1c result. HbA1c (Bld) [Mass fraction] 6.2 % High 4.0 - 6.0 % [facility] Phone: Interpretation and review of laboratory results Abnormal [facility] Phone: [facility] Phone: Immature Platelet FractionOr dered By: King Monteiro on 09-03-2020 Platelet, Fluorescence Platelet clumps present, count appears adequate. [facility] Phone: Comment on above: ORDERED BY LAB Platelet, Immature Fraction NOT REPORTED 1.1 - 10.3 % [facility] Phone: [facility] Phone: Lipid Profileon 09-03-2020 Cholesterol [Mass/Vol] 123 mg/dL Normal <200 [facility] Comment on above: Result Comment: Cholesterol Guidelines: <200 Desirable 200-240 Borderline >240 Undesirable Performed By: #### B MPX, PROL, TSHX, LIPR #### [facility] [address] [place] [address] Metal Welder: Wellington Back MD Cholesterol in HDL [Mass/Vol] 69 mg/dL Normal >40 [facility] Comment on above: Result Comment: HDL Guidelines: <40 Undesirable 40-59 Borderline >59 Desirable Performed By: #### B MPX, PROL, TSHX, LIPR #### [facility] [address] [place] [address] [id number] Metal Welder: Wellington Back MD Cholesterol in LDL [Mass/Vol] 40 mg/dL Normal 0-130 [facility] Comment on above: Result Comment: LDL Guidelines: <100 Desirable 100-129 Near to/above Desirable 130-159 Borderline >159 Undesirable Direct (measured) LDL and calculated LDL are not interchangeable tests. Performed By: #### B MPX, PROL, TSHX, LIPR #### [facility] [address] [place] [address] [phone] Metal Welder: Wellington Back MD Cholesterol.total/Chol esterol in HDL [Mass ratio] 1.8 {ratio} Normal <5 [facility] Comment on above: Performed By: #### B MPX, PROL, TSHX, LIPR #### [facility] [address] [place] [address] [id number] Metal Welder: Wellington Back MD Triglyceride [Mass/Vol] 70 mg/dL Normal <150 [facility] Comment on above: Result Comment: Triglyceride Guidelines: <150 Desirable 150-199 Borderline 200-499 High >499 Very high Based on AHA Guidelines for fasting triglyceride, November 2011. Performed By: #### B MPX, PROL, TSHX, LIPR #### [facility] [address] [place] [address] [phone] Metal Welder: Wellington Back MD Lipid panel - fastingOrdered By: Suraj Peters on 09-03-2020 Cholesterol [Mass/Vol] 123 mg/dL <200 [facility] [employer] Phone: Comment on above: Cholesterol Guidelines: <200 Desirable 200-240 Borderline >240 Undesirable Cholesterol in HDL [Mass/Vol] 69 mg/dL >40 [facility] Phone: Comment on above: HDL Guidelines: <40 Undesirable 40-59 Borderline >59 Desirable Cholesterol in LDL [Mass/Vol] 40 mg/dL 0 - 130 mg/dL [facility] Phone: Comment on above: LDL Guidelines: <100 Desirable 100-129 Near to/above Desirable 130-159 Borderline >159 Undesirable Direct (measured) LDL and calculated LDL are not interchangeable tests. Cholesterol in VLDL [Mass/Vol] NOT REPORTED 1 - 30 mg/dL [facility] Phone: Cholesterol.total/Chol esterol in HDL [Mass ratio] 1.8 {ratio} <5 [facility] Phone: Triglyceride [Mass/Vol] 70 mg/dL <150 [facility] Phone: Comment on above: Triglyceride Guidelines: <150 Desirable 150-199 Borderline 200-499 High >499 Very high Based on AHA Guidelines for fasting triglyceride, November 2011. [facility] Phone: No Panel InformationOrdered By: Suraj Pteers on 09-03-2020 [facility] Phone: PLT, Immature Fract.on 09-03 Platelet, Fluoresc. Platelet clumps present, count appears adequate. Normal 138-453 [facility] Comment on above: Result Comment: ORDE RED BY LAB Performed By: #### C DP, IPF ####[facility] [place] [address] [id number] Lab Director: Wellington Back MD PLT, Immature Fract. NOT REPORTED Normal 1.1-10.3 [facility] Comment on above: Performed By: #### C DP, IPF ####[facility] [place] [address] [id number] Lab Director: Wellington Back MD PROLACTINOrdered By: Suraj ramirez on 09-03-2020 Prolactin 17.33 ug/L 4.79 - 23.30 ug/L [facility] [employer] Phone: Comment on above: The presence of macr oprolactin may cause interference in female patients with various endocrinological diseases or during . Prolactinon 09-03-2020 Prolactin 17.33 ug/L Normal 4.79-23.30 [facility] Comment on above: Result Comment: The presence of macroprolactin may cause interference in female patients with various endocrinological diseases or during . Performed By: #### B MPX, PROL, TSHX, LIPR #### [facility] [place] [address] Metal Welder: Wellington Back MD SPECIMEN REJECTIONOrdered By : Ralf Christie on 09-03-2020 - NOT REPORTED [facility] Phone: Ordered Test CDP [facility] Phone: Reason for Rejection Unable to perform testing: Specimen clotted. [facility] [employer] Phone: Specimen source Nom (Unsp spec) .BLOOD [facility] [employer] Work Phone: [facility] [employer] Phone: Specimen Rejectionon 021 Reason for rejection Unable to perform testing: Specimen clotted. Normal [facility] Comment on above: Performed By: #### R EJEC, BMPX #### [facility] [address] [place] [address] Metal Welder: Wellington Back MD Source of sample .BLOOD [facility] Comment on above: Performed By: #### R EJEC, BMPX #### [facility] [address] [place] [address] Metal Welder: Wellington Back MD Test ordered CDP [facility] Comment on above: Performed By: #### R EJEC, BMPX #### [facility] [address] [place] [address] Metal Welder: Wellington Back MD ----- NOT REPORTED [facility] Comment on above: Performed By: #### R EJEC, BMPX #### [facility] [address] [place] [address] Metal Welder: Wellington Back MD Stroke Panelon 09-03-2020 % CKMB 3.6 % High 0.0-3.0 [facility] Comment on above: Performed By: #### S STAR #### [facility] [address] [place] [address] Metal Welder: Malik Hart DO [facility] [address] [address] Metal Welder: Wellington Back MD #### GLYHGB #### [facility] [address] Metal Welder: Wellington Back MD CK-MB,Quantitative 2.9 ng/mL Normal <5.4 [facility] Comment on above: Performed By: #### S STAR #### [facility] [address] [place] [address] Metal Welder: Malik Hart DO [address] [address] Metal Welder: Wellington Back MD #### GLYHGB #### [address] [address] Metal Welder: Wellington Back MD CKMB-Interpretation NORMAL ISOENZYME PATTERN Normal [facility] Comment on above: Performed By: #### S STAR #### [facility] [address] [place] [address] Metal Welder: Malik Hart DO [address] [address] Metal Welder: Wellington Back MD #### GLYHGB #### [address] [address] Metal Welder: Wellington Back MD TSH w/reflex to FT4on 2020 TSH Qn 0.99 m[IU]/L Normal 0.30-5.00 [facility] Comment on above: Performed By: #### B MPX, PROL, TSHX, LIPR #### [address] [address] Metal Welder: Wellington Back MD TSH with ReflexOrdered By: Ej Peters on 09-03-2020 TSH Qn 0.99 m[IU]/L [facility] Work Phone: CHLORIDE (POC)Ordered By: Ozzie Lomax on 07-26-2021 Chloride [Moles/Vol] 103 mmol/L 98 - 10 7 mmol/L [employer] Work Phone: CTA HEAD NECK W CONTRASTon 0 [...] Aaron London MD 09/02/[address] 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 [facility] [employer] Work Phone: EXAMINATION: CTA OF THE HEAD [...] fluid collection. The kevin-white differentiation is maintained. 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 [facility] Phone: [facility] Phone: Creatinine W/GFR Point of Ca reOrdered By: Kristina Lomax on 09-02-2020 Creatinine [Mass/Vol] 0.66 mg/dL 0.51 - 1.19 mg/dL [facility] Phone: GFR Non- >60 >60 mL/min [employer] Phone: GFR/1.73 sq M.predicted MDRD (S/P/Bld) [Vol rate/Area] mL/min/{1.73_m2} >60 mL/min [employer] Phone: GFR/1.73 sq M.predicted MDRD (S/P/Bld) [Vol rate/Area] [employer] Phone: Comment on above: Average GFR for 70 o r more years old: 75 mL/min/1.73sq m Chronic Kidney Disease: <60 mL/min/1.73sq m Kidney failure: <15 mL/min/1.73sq m eGFR calculated using average adult body mass. Additional eGFR calculator available at: http://www.Attero.Mobule/multiple_crcl_2012.htm EEG video monitoringOrdered By: Suraj Peters on 09-02-2020 Kvng Mcfadden MD 09/02/2020 6:05 PM VIDEO-EEG MONITORING REPORT Patient Name: Ever Davenportcollette Dates recorded: 09/02/2020 Electroencephalographe r: Kvng Mcfadden [...] tablet 10 mg, 10 mg, Oral, Nightly, Ralf Christie MD metFORMIN (GLUCOPHAGE) tablet 500 mg, [...] 10-20 electrode placement system, using a 32-channel [employer] headbox. All EEG and video information was acquired digitally, including the use of automated spike and seizure detection software to detect epileptiform activity. An event button was also available to be depressed during clinical events. RESULTS: In (more content not included)... [facility] Phone: [facility] Phone: Hemoglobin and hematocrit, b loodOrdered By: Kristina Lomax on 09-02-2020 Hematocrit (Bld) [Volume fraction] 35 % Low 36 - 46 % [facility] Phone: Hemoglobin (Bld) [Mass/Vol] 11.8 g/dL Low 12.0 - 16.0 g/dL [facility] Phone: Interpretation and review of laboratory results Abnormal [facility] Phone: Lipid Profileon 09-02-2020 Cholesterol,VLDL NOT REPORTED Normal 03-09 [facility] Comment on above: Performed By: #### B MPX, PROL, TSHX, LIPR #### [facility] [place] [address] Metal Welder: Wellington Back MD MRI LIMITED BRAINon 09-03-19 MRI LIMITED BRAIN EXAMINATION: MRI OF THE [...] Kel Hennessy MD 09/02/[address] [facility] MRI LIMITED BRAINOrdered By: Ralf Christie on 09-02-2020 No acute intracrania l abnormality. Findings were discussed with Dr. Mcdonald At 11:45 am on 09/02/2020. [employer] Phone: EXAMINATION: MRI OF THE BRAIN WITHOUT [...] The soft tissues demonstrate no acute abnormality. [facility] Phone: Jaquan, [facility] Incoming Radiant Results From [facility] - 09/02/2020 12:44 PM EDT EXAMINATION: MRI OF [...] Dr. Mcdonald At 11:45 am on 09/02/2020. [facility] Phone: [facility] Phone: No Panel InformationOrdered By: Kristina Lomax on 09-02-2020 [facility] Phone: POC Glucose FingerstickOrder ed By: Kristina Lomax on 09-02-2020 Glucose [Mass/Vol] 73 mg/dL 65 - 105 mg/dL [employer] Phone: [facility] Phone: POCT GlucoseOrdered By: Bee Lomax on 09-02-2020 Glucose [Mass/Vol] 89 mg/dL 74 - 100 mg/dL [facility] Phone: POCT urea (BUN)Ordered By: Zurdo Lomax on 09-02-2020 Urea nitrogen [Mass/Vol] 22 mg/dL 8 - 26 mg/dL [facility] Phone: POTASSIUM (POC)Ordered By: Zurdo Lomax on 09-02-2020 Potassium [Moles/Vol] 3.8 mmol/L 3.5 - 4.5 mmol/L [facility] Phone: SODIUM (POC)Ordered By: Bee Lomax on 09-02-2020 Sodium [Moles/Vol] 138 mmol/L 138 - 146 mmol/L [facility] Phone: STROKE PANELOrdered By: Fabricio Metz on 09-02-2020 % CKMB 3.6 % High 0.0 - 3.0 % [facility] Phone: Absolute Eos # 0.00 [employer] Work Phone: Absolute Immature Granulocyte 0.00 [employer] Work Phone: Absolute Lymph # 0.83 Low [employer] Work Phone: Absolute Park # 0.83 High [employer] [facility] Work Phone: Anion gap [Moles/Vol] 20 mmol/L High 9 - 17 mmol/L [facility] Phone: aPTT Coag (Bld) [Time] 21.8 s [facility] Work Phone: Comment on above: IV Heparin Therapy Range: 48.6-77.8 Basophils (Bld) [#/Vol] 0.00 10*3/uL [employer] Work Phone: Basophils/100 WBC (Bld) 0 % 0 - 2 % [facility] Phone: Calcium [Mass/Vol] 9.2 mg/dL 8.6 - 10. 4 mg/dL [employer] Work Phone: Chloride [Moles/Vol] 100 mmol/L 98 - 10 7 mmol/L [facility] Phone: CK [Catalytic activity/Vol] 81 U/L 26 - 192 U/L [facility] Phone: CK.MB [Mass/Vol] 2.9 ng/mL <5.4 [facility] Work Phone: CKMB Interpretation NORMAL ISOENZYME PATTERN [employer] Work Phone: CO2 [Moles/Vol] 16 mmol/L Low 20 - 31 mmol/L [employer] Phone: Creatinine [Mass/Vol] 0.63 mg/dL 0.50 - 0.90 mg/dL [facility] Phone: Differential Type NOT REPORTED [facility] Phone: Eosinophils/100 WBC (Bld) 0 % Low 1 - 4 % [employer] Work Phone: GFR >60 >60 mL/min [employer] Phone: GFR Non- >60 >60 mL/min [facility] Phone: GFR/1.73 sq M.predicted MDRD (S/P/Bld) [Vol rate/Area] [facility] Phone: Comment on above: Average GFR for 70 o r more years old: 75 mL/min/1.73sq m Chronic Kidney Disease: <60 mL/min/1.73sq m Kidney failure: <15 mL/min/1.73sq m eGFR calculated using average adult body mass. Additional eGFR calculator available at: http://www.[facility]/multiple_crcl_2012.htm GFR/1.73 sq M.predicted MDRD (S/P/Bld) [Vol rate/Area] NOT REPORTED [employer] Phone: Glucose [Mass/Vol] 110 mg/dL High 70 - 99 mg/dL [employer] Phone: Hematocrit (Bld) [Volume fraction] 35.8 % Low 36.3 - 47.1 % [facility] Phone: Hemoglobin.gastrointes tinal spec 1 Ql (Stl) 11.4 g/dL Low 11.9 - 15.1 g/dL [employer] Phone: Immature granulocytes/100 WBC (Bld) 0 % 0 [facility] Phone: INR Coag (Bld) [Relative time] 1.1 {INR} [employer] Phone: Comment on above: Therapeutic Range: Moderate Anticoagulant Intensity: INR = 2.0-3.0 High Anticoagulant Intensity: INR = 2.5-3.5 Interpretation and review of laboratory results Abnormal [employer] Phone: Lymphocytes/100 WBC (Bld) 7 % Low 24 - 44 % [employer] Phone: MCH (RBC) [Entitic mass] 29.8 pg 25.2 - 33.5 pg [employer] Phone: MCHC (RBC) [Mass/Vol] 31.8 g/dL 28.4 - 34.8 g/dL [employer] Phone: MCV (RBC) [Entitic vol] 93.7 fL 82.6 - 102.9 fL [employer] Phone: Monocytes/100 WBC (Bld) 7 % 1 - 7 % [employer] Phone: Morphology Maninder (Bld) [Interp] Normal [employer] Phone: Myoglobin [Mass/Vol] 59 ng/mL High 25 - 58 ng/mL [employer] Phone: NRBC Automated 0.0 0.0 per 100 WBC [employer] Phone: Platelet distribution width (Bld) [Ratio] 14.6 % High 11.8 - 14.4 % [employer] Phone: Platelet Estimate NOT REPORTED [employer] Phone: Platelet mean volume (Bld) [Entitic vol] 9.4 fL 8.1 - 13.5 fL [employer] Phone: Platelets (Bld) [#/Vol] 215 10*3/uL [employer] Phone: Potassium [Moles/Vol] 4.2 mmol/L 3.7 - 5.3 mmol/L [employer] Phone: PT Coag (PPP) [Time] 11.2 s [employer] Phone: RBC (Bld) [#/Vol] 3.82 10*6/uL Low 3.95 - 5.1 1 m/uL [employer] Phone: RBC (Bld) [#/Vol] NOT REPORTED [employer] Phone: Segmented neutrophils/100 WBC (Bld) 86 % High 36 - 66 % [employer] Phone: Segs Absolute 10.14 High [employer] Work Phone: Sodium [Moles/Vol] 136 mmol/L 135 - 144 mmol/L [employer] Phone: Troponin Interp NOT REPORTED [employer] [facility] Work Phone: Troponin T NOT REPORTED <0.03 ng/mL [employer] Work Phone: Troponin, High Sensitivity 20 ng/L High 0 - 14 ng/L [employer] Phone: Comment on above: High Sensitivity Troponin values cannot be compared with other Troponin methodologies. Patients with high levels of Biotin oral intake (i.e >5mg/day) may have falsely decreased Troponin levels. Samples collected within 8 hours of biotin intake may require additional information for diagnosis. Urea nitrogen (BldV) [Mass/Vol] 20 mg/dL 8 - 23 mg/dL [employer] Phone: Urea nitrogen/Creatinine (Bld) [Mass ratio] NOT REPORTED [employer] Phone: WBC (Bld) [#/Vol] 11.8 10*3/uL High [employer] Phone: WBC (Bld) [#/Vol] NOT REPORTED [employer] Phone: [employer] Phone: Stroke Panelon 09-02-2020 CK [Catalytic activity/Vol] 81 U/L Normal 26-192 [facility] Comment on above: Performed By: #### S STAR #### [facility] [address] [place] [address] Metal Welder: Malik Hart DO [facility] [address] [place], [place] [id number] Metal Welder: Wellington Back MD #### GLYHGB #### [address] [address] Metal Welder: Wellington Back MD (cont.) [facility] Comment on above: Result Comment: Aver age GFR for 70 or more years old: 75 mL/min/1.73sq m Chronic Kidney Disease: <60 mL/min/1.73sq m Kidney failure: <15 mL/min/1.73sq m eGFR calculated using average adult body mass. Additional eGFR calculator available at: http://www.[facility]/multiple_crcl_2012.htm Performed By: #### S STAR #### [facility] [address] [place] [address] Metal Welder: Malik Hart DO [address] [address] Metal Welder: Wellington Back MD #### GLYHGB #### [address] [address] Metal Welder: Wellington Back MD Anion gap [Moles/Vol] 20 mmol/L High 9-17 [facility] Comment on above: Performed By: #### S STAR #### [facility] [address] [place] [address] Metal Welder: Malik Hart DO [address] [address] Metal Welder: Wellington Back MD #### GLYHGB #### [address] [address] Metal Welder: Wellington Back MD Calcium [Mass/Vol] 9.2 mg/dL Normal 8.6-10.4 [facility] Comment on above: Performed By: #### S STAR #### [facility] [address] [place] [address] Metal Welder: Malik Hart DO [address] [address] Metal Welder: Wellington Back MD #### GLYHGB #### [address] [address] Metal Welder: Wellington Back MD Chloride [Moles/Vol] 100 mmol/L Normal 98-107 [facility] Comment on above: Performed By: #### S STAR #### [facility] [address] [place] [address] Metal Welder: Malik Hart DO [address] [address] Metal Welder: Wellington Back MD #### GLYHGB #### [address] [address] Metal Welder: Wellington Back MD CO2 [Moles/Vol] 16 mmol/L Low 20-31 [facility] Comment on above: Performed By: #### Marina GRAVES #### [facility] [address] [place] [address] Metal Welder: Malik Hart DO [address] [address] Metal Welder: Wellington Back MD #### GLYHGB #### [address] [address] Metal Welder: Wellington Back MD Creatinine [Mass/Vol] 0.63 mg/dL Normal 0.50-0.90 [facility] Comment on above: Performed By: #### S STAR #### [facility] [address] [place] [address] Metal Welder: Malik Hart DO [address] [address] Metal Welder: Wellington Back MD #### GLYHGB #### [facility] [address] [place] [address] Metal Welder: Wellington Back MD GFR, Amer >60 Normal >60 [facility] Comment on above: Performed By: #### S NASIMKE #### [facility] [address] [place] [address] Metal Welder: Malik Hart DO [facility] [address] [place] [address] Metal Welder: Wellington Back MD #### GLYHGB #### [address] [address] Metal Welder: Wellington Back MD GFR,non Amer >60 Normal >60 [facility] Comment on above: Performed By: #### S STAR #### [facility] [address] [place] [address] Metal Welder: Malik Hart DO [facility] [address] [place] [address] Metal Welder: Wellington Back MD #### GLYHGB #### [address] [address] Metal Welder: Wellington Back MD Glucose [Mass/Vol] 110 mg/dL High 70-99 [facility] Comment on above: Performed By: #### S STAR #### [facility] [address] [place] [address] Metal Welder: Malik Hart DO [address] [address] Metal Welder: Wellington Back MD #### GLYHGB #### [address] [address] Metal Welder: Wellington Back MD Myoglobin [Mass/Vol] 59 ng/mL High 25-58 [facility] Comment on above: Performed By: #### Marina GRAVES #### [facility] [address] [place] [address] Metal Welder: Malik Hart [address] [address] Metal Welder: Wellington Back MD #### GLYHGB #### [address] [address] Metal Welder: Wellington Back MD Potassium [Moles/Vol] 4.2 mmol/L Normal 3.7-5.3 [facility] Comment on above: Performed By: #### Marina GRAVES #### [facility] [address] [place] [address] Metal Welder: Malik Hart [address] [address] Metal Welder: Wellington Back MD #### GLYHGB #### [address] [address] Metal Welder: Wellington Back MD Sodium [Moles/Vol] 136 mmol/L Normal 135-144 [facility] Comment on above: Performed By: #### Marina GRAVES #### [facility] [address] [place] [address] Metal Welder: Malik Hart DO [address] [address] Metal Welder: Wellington Back MD #### GLYHGB #### [address] [address] Metal Welder: Wellington Back MD Troponin, High Sens 20 ng/L High 0-14 [facility] Comment on above: Result Comment: High Sensitivity Troponin values cannot be compared with other Troponin methodologies. Patients with high levels of Biotin oral intake (i.e >5mg/day) may have falsely decreased Troponin levels. Samples collected within 8 hours of biotin intake may require additional information for diagnosis. Performed By: #### Marina GRAVES #### [facility] [address] [place] [address] Metal Welder: Malik Hart [address] [address] Metal Welder: Wellington Back MD #### GLYHGB #### [address] [address] Metal Welder: Wellington Back MD Urea nitrogen [Mass/Vol] 20 mg/dL Normal 8-23 [facility] Comment on above: Performed By: #### Marina GRAVES #### [facility] [address] [place] [address] Metal Welder: Malik Hart [address] [address] Metal Welder: Wellington Back MD #### GLYHGB #### [address] [address] Metal Welder: Wellington Back MD Abs. Basophil 0.00 k/uL Normal 0.0-0.2 [facility] Comment on above: Performed By: #### Marina GRAVES #### [facility] [address] [place] [address] Metal Welder: Malik Hart [address] [address] Metal Welder: Wellington Back MD #### GLYHGB #### [address] [address] Metal Welder: Wellington Back MD Abs.Imm.Granulocyte 0.00 k/uL Normal 0.00-0.30 [facility] Comment on above: Performed By: #### Marina GRAVES #### [facility] [address] [place] [address] Metal Welder: Malik Hart [address] [address] Metal Welder: Wellington Back MD #### GLYHGB #### [address] [address] Metal Welder: Wellington Back MD Abs.Neutrophil (Seg) 10.14 k/uL High 1.8-7.7 [facility] Comment on above: Performed By: #### Marina GRAVES #### [facility] [address] [place] [address] Metal Welder: Malik Hart [address] [address] Metal Welder: Wellington Back MD #### GLYHGB #### [address] [address] Metal Welder: Wellington Back MD Basophils/100 WBC (Bld) 0 % Normal 0-2 [facility] Comment on above: Performed By: #### Marina GRAVES #### [facility] [address] [place] [address] Metal Welder: Malik Hart [address] [address] Metal Welder: Wellington Back MD #### GLYHGB #### [address] [address] Metal Welder: Wellington Back MD Eosinophils (Bld) [#/Vol] 0.00 10*3/uL Normal 0.0-0.4 [facility] Comment on above: Performed By: #### S STAR #### [facility] [address] [place] [address] Metal Welder: Malik Hart DO [address] [address] Metal Welder: Wellington Back MD #### GLYHGB #### [address] [address] Metal Welder: Wellington Back MD Eosinophils/100 WBC (Bld) 0 % Low 1-4 [facility] Comment on above: Performed By: #### S STAR #### [facility] [address] [place] [address] Metal Welder: Malik Hart DO [address] [address] Metal Welder: Wellington Back MD #### GLYHGB #### [address] [address] Metal Welder: Wellington Back MD Immature granulocytes/100 WBC (Bld) 0 % Normal 0 [facility] Comment on above: Performed By: #### S STAR #### [facility] [address] [place] [address] Metal Welder: Malik Hart DO [address] [address] Metal Welder: Wellington Back MD #### GLYHGB #### [address] [address] Metal Welder: Wellington Back MD Lymphocytes (Bld) [#/Vol] 0.83 10*3/uL Low 1.0-4.8 [facility] Comment on above: Performed By: #### Marina GRAVES #### [facility] [address] [place] [address] Metal Welder: Malik Hart DO [address] [address] Metal Welder: Wellington Back MD #### GLYHGB #### [address] [address] Metal Welder: Wellington Back MD Lymphocytes/100 WBC (Bld) 7 % Low 24-44 [facility] Comment on above: Performed By: #### Marina GRAVES #### [facility] [address] [place] [address] Metal Welder: Malik Hart DO [address] [address] Metal Welder: Wellington Back MD #### GLYHGB #### [address] [address] Metal Welder: Wellington Back MD Monocytes (Bld) [#/Vol] 0.83 10*3/uL High 0.1-0.8 [facility] Comment on above: Performed By: #### Marina GRAVES #### [facility] [address] [place] [address] Metal Welder: Malik Hart DO [address] [address] Metal Welder: Wellington Back MD #### GLYHGB #### [address] [address] Metal Welder: Wellington Back MD Monocytes/100 WBC (Bld) 7 % Normal 1-7 [facility] Comment on above: Performed By: #### S STAR #### [facility] [address] [place] [address] Metal Welder: Malik Hart DO [address] [address] Metal Welder: Wellington Back MD #### GLYHGB #### [address] [address] Metal Welder: Wellington Back MD Morphology Maninder (Bld) [Interp] Normal Normal [facility] Comment on above: Performed By: #### S STAR #### [facility] [address] [place] [address] Metal Welder: Malik Hart [address] [address] Metal Welder: Wellington Back MD #### GLYHGB #### [address] [address] Metal Welder: Wellington Back MD Neutrophil (Seg) 86 % High 36-66 [facility] Comment on above: Performed By: #### S STAR #### [facility] [place] [address] Metal Welder: Malik Hart [address] [address] Metal Welder: Wellington Back MD #### GLYHGB #### [address] [address] Metal Welder: Wellington Back MD aPTT Coag (Bld) [Time] 21.8 s Normal 20.5-30.5 [facility] Comment on above: Result Comment: IV Heparin Therapy Range: 48.6-77.8 Performed By: #### S STAR #### [facility] [address] [place] [address] Metal Welder: Malik Hart DO [address] [address] Metal Welder: Wellington Back MD #### GLYHGB #### [address] [address] Metal Welder: Wellington Back MD INR Coag (PPP) [Relative time] 1.1 {INR} Normal [facility] Comment on above: Result Comment: Therapeutic Range: Moderate Anticoagulant Intensity: INR = 2.0-3.0 High Anticoagulant Intensity: INR = 2.5-3.5 Performed By: #### Marina GRAVES #### [facility] [address] [place] [address] Metal Welder: Malik Hart [address] [address] Metal Welder: Wellington Back MD #### GLYHGB #### [address] [address] Metal Welder: Wellington Back MD PT Coag (PPP) [Time] 11.2 s Normal 9.1-12.3 [facility] Comment on above: Performed By: #### Marina GRAVES #### [facility] [address] [place] [address] Metal Welder: Malik Hart DO [address] [address] Metal Welder: Wellington Back MD #### GLYHGB #### [address] [address] Metal Welder: Wellington Back MD Erythrocyte distribution width (RBC) [Ratio] 14.6 % High 11.8-14.4 [facility] Comment on above: Performed By: #### Marina GRAVES #### [facility] [address] [place] [address] Metal Welder: Malik Hart DO [address] [address] Metal Welder: Wellington Back MD #### GLYHGB #### [address] [address] Metal Welder: Wellington Back MD Hematocrit (Bld) [Volume fraction] 35.8 % Low 36.3-47.1 [facility] Comment on above: Performed By: #### Marina GRAVES #### [facility] [address] [place] [address] Metal Welder: Malik Hart [address] [address] Metal Welder: Wellington Back MD #### GLYHGB #### [address] [address] Metal Welder: Wellington Back MD Hemoglobin (Bld) [Mass/Vol] 11.4 g/dL Low 11.9-15.1 [facility] Comment on above: Performed By: #### Marina GRAVES #### [facility] [address] [place] [address] Metal Welder: Malik Hart [address] [address] Metal Welder: Wellington Back MD #### GLYHGB #### [address] [address] Metal Welder: Wellington Back MD MCH (RBC) [Entitic mass] 29.8 pg Normal 25.2-33.5 [facility] Comment on above: Performed By: #### S STAR #### [facility] [place] [address] Metal Welder: Malik Hart [address] [address] Metal Welder: Wellington Back MD #### GLYHGB #### [address] [address] Metal Welder: Wellington Back MD MCHC (RBC) [Mass/Vol] 31.8 g/dL Normal 28.4-34.8 [facility] Comment on above: Performed By: #### S STAR #### [facility] [address] [place] [address] Metal Welder: Malik Hart DO [address] [address] Metal Welder: Wellington Back MD #### GLYHGB #### [address] [address] Metal Welder: Wellington Back MD MCV (RBC) [Entitic vol] 93.7 fL Normal 82.6-102.9 [facility] Comment on above: Performed By: #### Marina GRAVES #### [facility] [address] [place] [address] Metal Welder: Malik Hart DO [address] [address] Metal Welder: Wellington Back MD #### GLYHGB #### [address] [address] Metal Welder: Wellington Back MD NRBC Automated 0.0 per [address] [facility] Comment on above: Performed By: #### Marina GRAVES #### [facility] [address] [place] [address] Metal Welder: Malik Hart DO [address] [address] Metal Welder: Wellington Back MD #### GLYHGB #### [address] [address] Metal Welder: Wellington Back MD Platelet mean volume (Bld) [Entitic vol] 9.4 fL Normal 8.1-13.5 [facility] Comment on above: Performed By: #### S STAR #### [facility] [address] [place] [address] Metal Welder: Malik Hart [address] [address] Metal Welder: Wellington Back MD #### GLYHGB #### [address] [address] Metal Welder: Wellington Back MD Platelets (Bld) [#/Vol] 215 10*3/uL Normal 138-453 [facility] Comment on above: Performed By: #### S STAR #### [facility] [address] [place] [address] Metal Welder: Malik Hart [address] [address] Metal Welder: Wellington Back MD #### GLYHGB #### [address] [address] Metal Welder: Wellington Back MD RBC (Bld) [#/Vol] 3.82 10*6/uL Low 3.95-5.11 [facility] Comment on above: Performed By: #### S STAR #### [facility] [address] [place] [address] Metal Welder: Malik Hart DO [address] [address] Metal Welder: Wellington Back MD #### GLYHGB #### [address] [address] Metal Welder: Wellington Back MD WBC (Bld) [#/Vol] 11.8 10*3/uL High 3.5-11.3 [facility] Comment on above: Performed By: #### S STAR #### [facility] [address] [place] [address] Metal Welder: Malik Hart [address] [address] Metal Welder: Wellington Back MD #### GLYHGB #### [address] [address] Metal Welder: Wellington Back MD Auto Diff Performed NOT REPORTED Normal [facility] Comment on above: Performed By: #### S STAR #### [facility] [address] [place] [address] Metal Welder: Malik Hart [address] [address] Metal Welder: Wellington Back MD #### GLYHGB #### [address] [address] Metal Welder: Wellington Back MD BUN/CRE Ratio NOT REPORTED Normal 9-20 [facility] Comment on above: Performed By: #### Marina GRAVES #### [facility] [address] [place] [address] Metal Welder: Malik Hart DO [address] [address] Metal Welder: Wellington Back MD #### GLYHGB #### [address] [address] Metal Welder: Wellington Back MD Performed By: #### B MPX, PROL, TSHX, LIPR #### [address] [address] Metal Welder: Wellington Back MD Platelet Estimate NOT REPORTED Normal [facility] Comment on above: Performed By: #### S STAR #### [facility] [address] [place] [address] Metal Welder: Malik Hart [address] [address] Metal Welder: Wellington Back MD #### GLYHGB #### [address] [address] Metal Welder: Wellington Back MD RBC morphology finding Nom (Bld) NOT REPORTED Normal [facility] Comment on above: Performed By: #### S STAR #### [facility] [address] [place] [address] Metal Welder: Malik Hart [address] [address] Metal Welder: Wellington Back MD #### GLYHGB #### [address] [address] Metal Welder: Wellington Back MD Staging: NOT REPORTED Normal [facility] Comment on above: Performed By: #### S STAR #### [facility] [address] [place] [address] Metal Welder: Malik Hart DO [address] [address] Metal Welder: Wellington Back MD #### GLYHGB #### [address] [address] Metal Welder: Wellington Back MD Performed By: #### B MPX, PROL, TSHX, LIPR #### [address] [address] Metal Welder: Wellington Back MD Troponin Interp. NOT REPORTED Normal [facility] Comment on above: Performed By: #### S STAR #### [facility] [address] [place] [address] Metal Welder: Malik Hart DO [address] [address] Metal Welder: Wellington Back MD #### GLYHGB #### [address] [address] Metal Welder: Wellington Back MD Troponin T NOT REPORTED Normal <0.03 [facility] Comment on above: Performed By: #### S STAR #### [facility] [address] [place] [address] Metal Welder: Malik Hart DO [address] [address] Metal Welder: Wellington Back MD #### GLYHGB #### [address] [address] Metal Welder: Wellington Back MD WBC Morphology NOT REPORTED Normal [facility] Comment on above: Performed By: #### S STAR #### [facility] [address] [place] [address] Metal Welder: Malik Hart DO [address] [address] Metal Welder: Wellington Back MD #### GLYHGB #### [address] [address] Metal Welder: Wellington Back MD Basic Metabolic Panel w/ Ref rima to MGOrdered By: Law Stratton on 06-02-2020 Anion gap [Moles/Vol] 9 mmol/L 9 - 17 mmol/L [facility] Work Phone: Calcium [Mass/Vol] 8.9 mg/dL 8.6 - 10. 4 mg/dL [employer] Phone: Chloride [Moles/Vol] 105 mmol/L 98 - 10 7 mmol/L [employer] Work Phone: CO2 [Moles/Vol] 24 mmol/L 20 - 31 mmol/L [employer] Phone: Creatinine [Mass/Vol] 0.61 mg/dL 0.50 - 0.90 mg/dL [facility] Phone: GFR >60 >60 mL/min [employer] Phone: GFR Non- >60 >60 mL/min [employer] Phone: Glucose [Mass/Vol] 113 mg/dL High 70 - 99 mg/dL [employer] Phone: Potassium [Moles/Vol] 4.2 mmol/L 3.7 - 5.3 mmol/L [employer] Phone: Sodium [Moles/Vol] 138 mmol/L 135 - 144 mmol/L [employer] Phone: Urea nitrogen (BldV) [Mass/Vol] 30 mg/dL High 8 - 23 mg/dL [employer] Phone: Urea nitrogen/Creatinine (Bld) [Mass ratio] 49 High [employer] Work Phone: CBC Auto DifferentialOrdered By: Law Stratton on 06-02-2020 Absolute Eos # 0.10 [facility] Work Phone: Absolute Immature Granulocyte 0.00 [employer] Work Phone: Absolute Lymph # 0.38 Low [employer] [facility] Work Phone: Absolute Park # 0.48 [facility] Work Phone: Basophils (Bld) [#/Vol] 0.00 10*3/uL [employer] Phone: Basophils/100 WBC (Bld) 0 % 0 - 2 % [employer] Phone: Differential Type NOT REPORTED [employer] Phone: Eosinophils/100 WBC (Bld) 1 % 1 - 4 % [employer] Phone: Hematocrit (Bld) [Volume fraction] 36.5 % 36.3 - 47.1 % [employer] Phone: Hemoglobin.gastrointes tinal spec 1 Ql (Stl) 11.7 g/dL Low 11.9 - 15.1 g/dL [employer] Phone: Immature granulocytes/100 WBC (Bld) 0 % 0 [employer] Phone: Interpretation and review of laboratory results Abnormal [employer] Phone: Lymphocytes/100 WBC (Bld) 4 % Low 24 - 43 % [employer] Phone: MCH (RBC) [Entitic mass] 29.3 pg 25.2 - 33.5 pg [employer] Phone: MCHC (RBC) [Mass/Vol] 32.1 g/dL 28.4 - 34.8 g/dL [employer] Phone: MCV (RBC) [Entitic vol] 91.3 fL 82.6 - 102.9 fL [employer] Phone: Monocytes/100 WBC (Bld) 5 % 3 - 12 % [employer] Phone: Morphology Maninder (Bld) [Interp] Normal [employer] Phone: NRBC Automated 0.0 0.0 per 100 WBC [employer] Phone: Platelet distribution width (Bld) [Ratio] 13.7 % 11.8 - 14.4 % [employer] Phone: Platelet Estimate NOT REPORTED [employer] Phone: Platelet mean volume (Bld) [Entitic vol] 9.7 fL 8.1 - 13.5 fL [employer] Phone: Platelets (Bld) [#/Vol] 191 10*3/uL [employer] Phone: RBC (Bld) [#/Vol] 4.00 10*6/uL 3.95 - 5.1 1 m/uL [employer] Phone: RBC (Bld) [#/Vol] NOT REPORTED [employer] Phone: Segmented neutrophils/100 WBC (Bld) 90 % High 36 - 65 % [employer] Work Phone: Segs Absolute 8.64 High [email or web address] Work Phone: WBC (Bld) [#/Vol] 9.6 10*3/uL [employer] Phone: WBC (Bld) [#/Vol] NOT REPORTED [employer] Phone: COVID-19, RapidOrdered By: Michael Stratton on 06-02-2020 SARS-CoV-2 (COVID-19) RNA LADAN+probe Ql (Unsp spec) Not detected Not Detected [employer] Phone: Comment on above: Rapid NAAT: The [...] management decisions. Fact sheet for Healthcare Providers: https://www.fda.gov/media/963394/download Fact sheet for Patients: https://www.fda.gov/media/434829/download Methodology: Isothermal Nucleic Acid Amplification Specimen Description .NASOPHARYNGEAL SWAB [employer] Phone: CT Head WO ContrastOrdered B y: Law Stratton on 06-02-2020 No acute intracrania l abnormality. [facility] Phone: EXAMINATION: CT OF T HE HEAD [...] calcifications are seen compatible with atherosclerotic disease. [employer] Phone: Jaquan, pn Incoming Radiant Results From [facility] - 06/02/2020 3:27 PM EDT EXAMINATION: CT [...] atherosclerotic disease. IMPRESSION: No acute intracranial abnormality. [employer] Phone: Hepatic Function PanelOrdere d By: Law Stratton on 06-02-2020 Albumin [Mass/Vol] 3.8 g/dL 3.5 - 5.2 g/dL [employer] Phone: Albumin/Globulin [Mass ratio] 1.6 {ratio} [employer] Phone: ALP (Bld) [Catalytic activity/Vol] 75 U/L 35 - 104 U/L [employer] Phone: ALT [Catalytic activity/Vol] 17 U/L 5 - 33 U/L [employer] Phone: AST [Catalytic activity/Vol] 21 U/L <32 [employer] Phone: Bilirubin [Mass/Vol] 0.43 mg/dL 0.3 - 1 .2 mg/dL [employer] Phone: Bilirubin, Indirect CANNOT BE CALCULATED 0.00 - 1.00 mg/dL [employer] Phone: Bilirubin.indirect [Mass/Vol] mg/dL <0.31 mg/dL [employer] Phone: Free PSA/Total PSA [Mass fraction] 6.2 g/dL Low 6.4 - 8.3 g/dL [employer] Phone: Globulin NOT REPORTED 1.5 - 3.8 g/dL [employer] Phone: Laboratory - Chemistry and C hemistry - challengeOrdered By: Law tSratton on 06-02-2020 GFR/1.73 sq M.predicted MDRD (S/P/Bld) [Vol rate/Area] [employer] Phone: Comment on above: Average GFR for 70 o r more years old: 75 mL/min/1.73sq m Chronic Kidney Disease: <60 mL/min/1.73sq m Kidney failure: <15 mL/min/1.73sq m eGFR calculated using average adult body mass. Additional eGFR calculator available at: http://www.[facility]/multiple_crcl_2012.htm Stage 1: Some kidney damage normal GFR Stage 2: Mild kidney damage GFR 60-89 Stage 3: Moderate kidney damage GFR 30-59 Stage 4: Severe kidney damage GFR 15-29 Stage 5: Severe kidney damage GFR <15 ESRD - chronic treatment by dialysis or transplant LipaseOrdered By: Sharla on 06-02-2020 Lipase [Catalytic activity/Vol] 25 U/L 13 - 60 U/L [facility] Phone: No Panel InformationOrdered By: Law Stratton on 06-02-2020 Interpretation and review of laboratory results Abnormal [employer] Phone: CBC auto differentialon 03- Basophils (Bld) [#/Vol] 0.03 10*3/uL [employer] Phone: Basophils/100 WBC (Bld) 1 % 0 - 2 % [employer] Phone: Differential Type NOT REPORTED [employer] Phone: Eosinophils (Bld) [#/Vol] 0.15 10*3/uL [employer] Phone: Eosinophils/100 WBC (Bld) 3 % 1 - 4 % [employer] Phone: Erythrocyte distribution width (RBC) [Ratio] 13.5 % 11.8 - 14.4 % [employer] Phone: Hematocrit (Bld) [Volume fraction] 36.7 % 36.3 - 47.1 % [employer] Phone: Hemoglobin (Bld) [Mass/Vol] 11.8 g/dL Low 11.9 - 15.1 g/dL [employer] Phone: Immature granulocytes (Bld) [#/Vol] 0 % 0 [employer] Phone: Immature granulocytes (Bld) [#/Vol] 10*3/uL [employer] Phone: Interpretation and review of laboratory results Abnormal [employer] Phone: Lymphocytes (Bld) [#/Vol] 0.98 10*3/uL Low [employer] Phone: Lymphocytes/100 WBC (Bld) 16 % Low 24 - 43 % [employer] Phone: MCH (RBC) [Entitic mass] 29.5 pg 25.2 - 33.5 pg [employer] Phone: MCHC (RBC) [Mass/Vol] 32.2 g/dL 28.4 - 34.8 g/dL [employer] Phone: MCV (RBC) [Entitic vol] 91.8 fL 82.6 - 102.9 fL [employer] Phone: Monocytes (Bld) [#/Vol] 0.69 10*3/uL [employer] Phone: Monocytes/100 WBC (Bld) 12 % 3 - 12 % [employer] Phone: Platelet mean volume (Bld) [Entitic vol] 9.7 fL 8.1 - 13.5 fL [employer] Phone: Platelets (Bld) [#/Vol] 212 10*3/uL [employer] Phone: Platelets (Bld) [#/Vol] NOT REPORTED [employer] Phone: RBC (Bld) [#/Vol] 4.00 10*6/uL 3.95 - 5.1 1 m/uL [employer] Phone: RBC morphology finding Nom (Bld) NOT REPORTED [employer] Phone: Segmented neutrophils/100 WBC (Bld) 68 % High 36 - 65 % [facility] Phone: Segs Absolute 4.13 [email or web address] Work Phone: WBC (Bld) [#/Vol] 6.0 10*3/uL [employer] Phone: WBC (Bld) [#/Vol] 0.0 10*3/uL 0.0 per 10 0 WBC [employer] Phone: WBC Morphology NOT REPORTED [facility] Work Phone: Comprehensive Metabolic Pane john 05-08-2020 Albumin [Mass/Vol] 4.3 g/dL 3.5 - 5.2 g/dL [employer] Phone: Albumin/Globulin [Mass ratio] 1.7 {ratio} [employer] Phone: ALP [Catalytic activity/Vol] 67 U/L 35 - 104 U/L [employer] Phone: ALT [Catalytic activity/Vol] 13 U/L 5 - 33 U/L [employer] Phone: Anion gap [Moles/Vol] 9 mmol/L 9 - 17 mmol/L [employer] Phone: AST [Catalytic activity/Vol] 19 U/L <32 [facility] Phone: Bilirubin Ql (U) 0.53 mg/dL 0.3 - 1.2 mg/dL [employer] Phone: Bun/Cre Ratio 25 High [email or web address] Work Phone: Calcium [Mass/Vol] 9.8 mg/dL 8.6 - 10. 4 mg/dL [employer] Phone: Chloride [Moles/Vol] 104 mmol/L 98 - 10 7 mmol/L [employer] Phone: CO2 [Moles/Vol] 25 mmol/L 20 - 31 mmol/L [employer] Phone: Creatinine [Mass/Vol] 0.6 mg/dL 0.50 - 0.90 mg/dL [facility] Phone: GFR >60 >60 mL/min [employer] Phone: GFR Non- >60 >60 mL/min [facility] Phone: Glucose [Mass/Vol] 94 mg/dL 70 - 99 mg/dL [facility] Phone: Interpretation and review of laboratory results Abnormal [employer] Phone: Potassium [Moles/Vol] 3.9 mmol/L 3.7 - 5.3 mmol/L [employer] Phone: Protein [Mass/Vol] 6.9 g/dL 6.4 - 8.3 g/dL [employer] Phone: Sodium [Moles/Vol] 138 mmol/L 135 - 144 mmol/L [employer] Phone: Urea nitrogen [Mass/Vol] 15 mg/dL 8 - 23 mg/dL [employer] Phone: Metabolic Panelon 05-08-2020 GFR/1.73 sq M predicted among non-blacks MDRD (S/P/Bld) [Vol rate/Area] [employer] Phone: Comment on above: Stage 1: Some [...] body mass. Additional eGFR calculator available at: http://www.[facility]/multiple_crcl_2012.htm Troponinon 05-08-2020 Interpretation and review of laboratory results Abnormal [employer] Work Phone: Troponin I.cardiac [Mass/Vol] NOT REPORTED [facility] Phone: Troponin T.cardiac [Mass/Vol] NOT REPORTED <0.03 ng/mL [employer] Work Phone: Troponin, High Sensitivity 16 ng/L High 0 - 14 ng/L [employer] Work Phone: Comment on above: High Sensitivity Troponin values cannot be compared with other Troponin methodologies. Patients with high levels of Biotin oral intake (i.e >5mg/day) may have falsely decreased Troponin levels. Samples collected within 8 hours of biotin intake may require additional information for diagnosis. Interpretation and review of laboratory results Abnormal [employer] Phone: Troponin I.cardiac [Mass/Vol] NOT REPORTED [employer] Phone: Troponin T.cardiac [Mass/Vol] NOT REPORTED <0.03 ng/mL [employer] Work Phone: Troponin, High Sensitivity 17 ng/L High 0 - 14 ng/L [employer] Phone: Comment on above: High Sensitivity Troponin [...] 7 mmol/L Low 9 - 17 mmol/L [employer] Work Phone: Bun/Cre Ratio 31 High [email or web address] Work Phone: Calcium [Mass/Vol] 8.9 mg/dL 8.6 - 10. 4 mg/dL [employer] Phone: Chloride [Moles/Vol] 107 mmol/L 98 - 10 7 mmol/L [employer] Phone: CO2 [Moles/Vol] 26 mmol/L 20 - 31 mmol/L [employer] Phone: Creatinine [Mass/Vol] 0.72 mg/dL 0.50 - 0.90 mg/dL [employer] Phone: GFR >60 >60 mL/min [employer] Phone: GFR Non- >60 >60 mL/min [facility] Phone: Glucose [Mass/Vol] 96 mg/dL 70 - 99 mg/dL [employer] Phone: Interpretation and review of laboratory results Abnormal [employer] Phone: Potassium [Moles/Vol] 4.2 mmol/L 3.7 - 5.3 mmol/L [employer] Phone: Sodium [Moles/Vol] 140 mmol/L 135 - 144 mmol/L [employer] Phone: Urea nitrogen [Mass/Vol] 22 mg/dL 8 - 23 mg/dL [employer] Phone: CBCon 04-18-2020 Erythrocyte distribution width (RBC) [Ratio] 13.2 % 11.8 - 14.4 % [employer] Phone: Hematocrit (Bld) [Volume fraction] 34.5 % Low 36.3 - 47.1 % [employer] Phone: Hemoglobin (Bld) [Mass/Vol] 11.0 g/dL Low 11.9 - 15.1 g/dL [employer] Phone: Interpretation and review of laboratory results Abnormal [employer] Phone: MCH (RBC) [Entitic mass] 29.6 pg 25.2 - 33.5 pg [employer] Phone: MCHC (RBC) [Mass/Vol] 31.9 g/dL 28.4 - 34.8 g/dL [employer] Phone: MCV (RBC) [Entitic vol] 93.0 fL 82.6 - 102.9 fL [employer] Phone: Platelet mean volume (Bld) [Entitic vol] 10.0 fL 8.1 - 13.5 fL [employer] Phone: Platelets (Bld) [#/Vol] 192 10*3/uL [employer] Phone: RBC (Bld) [#/Vol] 3.71 10*6/uL Low 3.95 - 5.1 1 m/uL [employer] Phone: WBC (Bld) [#/Vol] 5.2 10*3/uL [employer] Phone: WBC (Bld) [#/Vol] 0.0 10*3/uL 0.0 per 10 0 WBC [employer] Phone: ECHOCARDIOGRAM LIMITEDon [facility] Transthoracic Echocardiography Report (TTE) Patient Name SPENCER Date of Study 04/18/2020 EVER Mckay Date of 1940 Gender Female Age 79 year(s) Race Room Number 0315 Height: 63 inch, 160.02 cm Corporate ID [id number] Weight: 163 pounds, 73.9 kg # Patient Acct [id number] BSA: 1.77 m^2 BMI: 28.87 # kg/m^2 MR # [id number] Group Account Director BayronRylee Interpreting Physician Alissa Marx Fellow Referring Nurse Practitioner Interpreting Referring Physician Alissa Marx Fellow Type of Study TTE procedure:2D Echocardiogram, Bubble Study. Procedure Date Date: 04/18/2020 Start: 02:58 PM Study Location: [facility] History / Tech. Comments: TIA, Bubble study [...] 1.66 cm Calculated LVEF (%): 58.56 % [employer] Work Phone: Jaquan, pn Incoming Cardio Results From [facility]/[employer] - 04/18/2020 6:12 PM EST [facility] Transthoracic Echocardiography Report (TTE) Patient Name SPENCER Date of Study 04/18/2020 EVER A Date of 1940 Gender Female Age 79 year(s) Race Room Number 0315 Height: 63 inch, 160.02 cm Corporate ID [id number] Weight: 163 pounds, 73.9 kg # Patient Acct [id number] BSA: 1.77 m^2 BMI: 28.87 # kg/m^2 MR # [id number] Group Account Director Rylee Verma Interpreting Physician Alissa Marx Fellow Referring Nurse Practitioner Interpreting Referring Physician Alissa Marx Type of Study TTE procedure:2D Echocardiogram, Bubble Study. Procedure Date Date: 04/18/2020 Start: 02:58 PM Study Location: [facility] History / Tech. Comments: TIA, Bubble study [...] 1.66 cm Calculated LVEF (%): 58.56 % [employer] Phone: EKG 12 Leadon 04-18-2020 Atrial Rate 64 BPM [employer] Phone: P [place] 72 degrees [employer] Phone: P-R Interval 162 ms [employer] Phone: Q-T Interval 410 ms [employer] Phone: QRS Duration 102 ms [employer] Phone: QTc Calculation (Bazett) 422 ms [employer] Phone: R [place] 64 degrees [employer] Phone: T [place] 50 degrees [employer] Phone: Ventricular Rate 64 BPM [employer] Phone: Normal sinus rhythm Cannot rule out Anterior infarct (cited on or before 28-JUN-2009) Abnormal ECG When compared with ECG of 28-JUN-2009 03:41, No significant change was found Confirmed by MARCELINO CLIFFORD ([id number]) on 04/18/2020 8:42:07 AM [employer] Phone: Jaquan, Mhpn Incoming E kg Results From [employer] - 04/18/2020 8:42 AM EST Normal sinus rhythm Cannot rule out Anterior infarct (cited on or before 28-JUN-2009) Abnormal ECG When compared with ECG of 28-JUN-2009 03:41, No significant change was found Confirmed by MARCELINO CLIFFORD ([id number]) on 04/18/2020 8:42:07 AM [employer] Phone: Hemoglobin A1con 04-18-2020 Glucose [Mass/Vol] 114 mg/dL [employer] Phone: Comment on above: The ADA and AACC rec ommend providing the estimated average glucose result to permit better patient understanding of their HBA1c result. HbA1c (Bld) [Mass fraction] 5.6 % 4.0 - 6.0 % [employer] Phone: Lipid panel - fastingon 04-08 Cholesterol [Mass/Vol] 153 mg/dL <200 [employer] Phone: Comment on above: Cholesterol Guidelines: <200 Desirable 200-240 Borderline >240 Undesirable Cholesterol in HDL [Mass/Vol] 78 mg/dL >40 [employer] Phone: Comment on above: HDL Guidelines: <40 Undesirable 40-59 Borderline >59 Desirable Cholesterol in LDL [Mass/Vol] 65 mg/dL 0 - 130 mg/dL [employer] Phone: Comment on above: LDL Guidelines: <100 Desirable 100-129 Near to/above Desirable 130-159 Borderline >159 Undesirable Direct (measured) LDL and calculated LDL are not interchangeable tests. Cholesterol in VLDL [Mass/Vol] NOT REPORTED 1 - 30 mg/dL [employer] Phone: Cholesterol.total/Chol esterol in HDL [Mass ratio] 2 {ratio} <5 [employer] Phone: Triglyceride [Mass/Vol] 51 mg/dL <150 [employer] Phone: Comment on above: Triglyceride Guidelines: <150 Desirable 150-199 Borderline 200-499 High >499 Very high Based on AHA Guidelines for fasting triglyceride, November 2011. Metabolic Panelon 04-18-2020 GFR/1.73 sq M predicted among non-blacks MDRD (S/P/Bld) [Vol rate/Area] [employer] Phone: Comment on above: Average GFR for 70 o r more years old: 75 mL/min/1.73sq m Chronic Kidney Disease: <60 mL/min/1.73sq m Kidney failure: <15 mL/min/1.73sq m eGFR calculated using average adult body mass. Additional eGFR calculator available at: http://www.Attero.Mobule/multiple_crcl_2012.htm Stage 1: Some kidney damage normal GFR Stage 2: Mild kidney damage GFR 60-89 Stage 3: Moderate kidney damage GFR 30-59 Stage 4: Severe kidney damage GFR 15-29 Stage 5: Severe kidney damage GFR <15 ESRD - chronic treatment by dialysis or transplant APTTon 04-17-2020 aPTT Coag (Bld) [Time] 25.6 s [employer] Phone: Comment on above: IV Heparin Therapy Range: 62.0-94.0 CBC Auto Differentialon 04-08 Basophils (Bld) [#/Vol] 0.03 10*3/uL [employer] Phone: Basophils/100 WBC (Bld) 1 % 0 - 2 % [employer] Phone: Differential Type NOT REPORTED [employer] Phone: Eosinophils (Bld) [#/Vol] 0.13 10*3/uL [employer] Phone: Eosinophils/100 WBC (Bld) 2 % 1 - 4 % [employer] Phone: Erythrocyte distribution width (RBC) [Ratio] 13.2 % 11.8 - 14.4 % [employer] Phone: Hematocrit (Bld) [Volume fraction] 37.6 % 36.3 - 47.1 % [employer] Phone: Hemoglobin (Bld) [Mass/Vol] 11.8 g/dL Low 11.9 - 15.1 g/dL [employer] Phone: Immature granulocytes (Bld) [#/Vol] 0 % 0 [employer] Phone: Immature granulocytes (Bld) [#/Vol] 10*3/uL [employer] Phone: Interpretation and review of laboratory results Abnormal [employer] Phone: Lymphocytes (Bld) [#/Vol] 1.41 10*3/uL [employer] Phone: Lymphocytes/100 WBC (Bld) 23 % Low 24 - 43 % [employer] Phone: MCH (RBC) [Entitic mass] 29.1 pg 25.2 - 33.5 pg [employer] Phone: MCHC (RBC) [Mass/Vol] 31.4 g/dL 28.4 - 34.8 g/dL [employer] Phone: MCV (RBC) [Entitic vol] 92.8 fL 82.6 - 102.9 fL [employer] Phone: Monocytes (Bld) [#/Vol] 0.69 10*3/uL [employer] Phone: Monocytes/100 WBC (Bld) 11 % 3 - 12 % [employer] Phone: Platelet mean volume (Bld) [Entitic vol] 10.8 fL 8.1 - 13.5 fL [employer] Phone: Platelets (Bld) [#/Vol] 210 10*3/uL [employer] Phone: Platelets (Bld) [#/Vol] NOT REPORTED [employer] Phone: RBC (Bld) [#/Vol] 4.05 10*6/uL 3.95 - 5.1 1 m/uL [employer] Phone: RBC morphology finding Nom (Bld) NOT REPORTED [employer] Phone: Segmented neutrophils/100 WBC (Bld) 63 % 36 - 65 % [employer] Phone: Segs Absolute 3.86 [email or web address] Work Phone: WBC (Bld) [#/Vol] 0.0 10*3/uL 0.0 per 10 0 WBC [employer] Phone: WBC (Bld) [#/Vol] 6.1 10*3/uL [employer] Phone: WBC Morphology NOT REPORTED [employer] Phone: CT HEAD WO CONTRASTon 2020 EXAMINATION: CT OF Alcides MERCHANT HEAD WITHOUT CONTRAST 04/17/2020 3:30 pm TECHNIQUE: [...] of the visualized skull or soft tissues. [employer] Phone: No acute intracrania l abnormality. Results were sent to radiology results communication. [employer] Phone: Jaquan, pn Incoming Radiant Results From [employer] - 04/17/2020 3:42 PM EST EXAMINATION: CT [...] Results were sent to radiology results communication. [employer] Phone: CTA HEAD NECK W CONTRASTon 0 [...] fluid collection. The kevin-white differentiation is maintained. [employer] Phone: Jaquan, Mhpn Incoming Radiant Results From [employer] - 04/17/2020 5:46 PM EST EXAMINATION: CTA [...] size. 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 [employer] Phone: No large vessel occlusion or hemodynamic stenosis. 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 [employer] Phone: Comprehensive Metabolic Pane john 04-17-2020 Albumin [Mass/Vol] 4 g/dL 3.5 - 5.2 g/dL [employer] Phone: Albumin/Globulin [Mass ratio] 1.4 {ratio} [employer] Phone: ALP [Catalytic activity/Vol] 55 U/L 35 - 104 U/L [employer] Phone: ALT [Catalytic activity/Vol] 13 U/L 5 - 33 U/L [employer] Phone: Anion gap [Moles/Vol] 12 mmol/L 9 - 17 mmol/L [employer] Phone: AST [Catalytic activity/Vol] 19 U/L <32 [employer] Phone: Bilirubin Ql (U) 0.39 mg/dL 0.3 - 1.2 mg/dL [employer] Phone: Bun/Cre Ratio 37 High [email or web address] Work Phone: Calcium [Mass/Vol] 9.4 mg/dL 8.6 - 10. 4 mg/dL [employer] Phone: Chloride [Moles/Vol] 103 mmol/L 98 - 10 7 mmol/L [employer] Phone: CO2 [Moles/Vol] 24 mmol/L 20 - 31 mmol/L [employer] Phone: Creatinine [Mass/Vol] 0.62 mg/dL 0.50 - 0.90 mg/dL [employer] Phone: GFR >60 >60 mL/min [employer] Phone: GFR Non- >60 >60 mL/min [employer] Phone: Glucose [Mass/Vol] 92 mg/dL 70 - 99 mg/dL [employer] Phone: Interpretation and review of laboratory results Abnormal [employer] Phone: Potassium [Moles/Vol] 3.7 mmol/L 3.7 - 5.3 mmol/L [employer] Phone: Protein [Mass/Vol] 6.9 g/dL 6.4 - 8.3 g/dL [employer] Phone: Sodium [Moles/Vol] 139 mmol/L 135 - 144 mmol/L [employer] Phone: Urea nitrogen [Mass/Vol] 23 mg/dL 8 - 23 mg/dL [employer] Phone: Glucose, Whole Bloodon 04-17 Glucose [Mass/Vol] 89 mg/dL 74 - 100 mg/dL [employer] Phone: Glucose [Mass/Vol] 68 mg/dL Low 74 - 100 mg/dL [employer] Phone: Interpretation and review of laboratory results Abnormal [employer] Phone: MRI BRAIN WO CONTRASTon 04-08 EXAMINATION: [...] The soft tissues demonstrate no acute abnormality. [employer] Phone: Jaquan, Mhpn Incoming Radiant Results From [employer] - 04/17/2020 5:13 PM EST EXAMINATION: MRI [...] parenchymal volume loss. Minimal chronic microvascular disease. [employer] Phone: No acute intracrania l abnormality. Minimal parenchymal volume loss. Minimal chronic microvascular disease. [employer] Phone: Metabolic Panelon 04-17-2020 GFR/1.73 sq M predicted among non-blacks MDRD (S/P/Bld) [Vol rate/Area] [employer] Phone: Comment on above: Average GFR for 70 o r more years old: 75 mL/min/1.73sq m Chronic Kidney Disease: <60 mL/min/1.73sq m Kidney failure: <15 mL/min/1.73sq m eGFR calculated using average adult body mass. Additional eGFR calculator available at: http://www.Attero.Mobule/multiple_crcl_2012.htm Stage 1: Some kidney damage normal GFR Stage 2: Mild kidney damage GFR 60-89 Stage 3: Moderate kidney damage GFR 30-59 Stage 4: Severe kidney damage GFR 15-29 Stage 5: Severe kidney damage GFR <15 ESRD - chronic treatment by dialysis or transplant POCT Glucoseon 04-17-2020 Glucose [Mass/Vol] 68 mg/dL [employer] Phone: Interpretation and review of laboratory results Normal [employer] Phone: QC OK? ok [employer] Phone: Protime-INRon 04-17-2020 INR Coag (PPP) [Relative time] 0.9 {INR} [employer] Phone: Comment on above: Non-therapeutic Range: INR = 0.9-1.2 Therapeutic Range: Moderate Anticoagulant Intensity: INR = 2.0-3.0 High Anticoagulant Intensity: INR = 2.5-3.5 PT Coag (PPP) [Time] 12.4 s [employer] Phone: Troponinon 04-17-2020 Interpretation and review of laboratory results Abnormal [employer] Phone: Troponin I.cardiac [Mass/Vol] NOT REPORTED [employer] Phone: Troponin T.cardiac [Mass/Vol] NOT REPORTED <0.03 ng/mL [employer] Phone: Troponin, High Sensitivity 17 ng/L High 0 - 14 ng/L [employer] Phone: Comment on above: High Sensitivity Troponin values cannot be compared with other Troponin methodologies. Patients with high levels of Biotin oral intake (i.e >5mg/day) may have falsely decreased Troponin levels. Samples collected within 8 hours of biotin intake may require additional information for diagnosis. Urinalysis with [employer] n 04-17-2020 Amorphous, UA NOT REPORTED None [employer] Work Phone: Bacteria, UA TRACE Abnormal None [employer] Phone: Bilirubin Urine Negative NEGATIVE [employer] Work Phone: Casts UA NOT REPORTED /LPF [facility] Work Phone: Color, UA YELLOW YELLOW [facility] Work Phone: Crystals, UA NOT REPORTED None /HPF [facility] Work Phone: Epithelial Cells UA 0 TO 2 [facility] Work Phone: Glucose, Ur Negative NEGATIVE [facility] Work Phone: Interpretation and review of laboratory results Abnormal [facility] [employer] Work Phone: Ketones Ql (U) Negative NEGATIVE [facility] Work Phone: Leukocyte esterase Test strip Ql (U) Negative NEGATIVE [facility] Work Phone: Mucus, UA TRACE Abnormal None [facility] Work Phone: Nitrite, Urine Negative NEGATIVE [facility] Work Phone: Other Observations UA NOT REPORTED NOT REQ. [facility] [employer] Work Phone: pH, UA 6.5 [facility] [employer] Work Phone: Protein (U) [Mass/Vol] Negative NEGATIVE [facility] [employer] Work Phone: RBC (U) [#/Vol] None [facility] Work Phone: Renal Epithelial, UA NOT REPORTED 0 /HPF Me [facility] Work Phone: Specific [place], UA <1.005 Low [facility] [employer] Work Phone: Trichomonas, UA NOT REPORTED None [facility] Work Phone: Turbidity UA CLEAR CLEAR [facility] [employer] Work Phone: Urinalysis Comments NOT REPORTED [facility] Work Phone: Urine Hgb Negative NEGATIVE [facility] [employer] Work Phone: Urobilinogen, Urine Normal Normal [facility] [employer] Work Phone: WBC, UA None [facility] Work Phone: Yeast, UA NOT REPORTED None [facility] Work Phone: - [facility] Work Phone: Urine Drug Screenon 04-18-19 21 Amphetamine Screen, Ur Negative NEGATIVE [facility] Work Phone: Barbiturate Screen, Ur Negative NEGATIVE [facility] Work Phone: Benzodiazepine Screen, Urine Negative NEGATIVE [facility] Work Phone: Buprenorphine Urine Negative NEGATIVE [facility] Work Phone: Cannabinoid Scrn, Ur Negative NEGATIVE [facility] Work Phone: Cocaine Metabolite, Urine Negative NEGATIVE [facility] Work Phone: MDMA, Urine NOT REPORTED NEGATIVE [facility] [employer] Work Phone: Methadone Screen, Urine Negative NEGATIVE [facility] Work Phone: Methamphetamine, Urine Negative NEGATIVE [facility] Work Phone: Opiates, Urine Negative NEGATIVE [facility] Work Phone: Oxycodone Screen, Ur Negative NEGATIVE [facility] Work Phone: Phencyclidine, Urine Negative NEGATIVE [facility] Work Phone: Propoxyphene, Urine Negative NEGATIVE [facility] Work Phone: Test Information NOT REPORTED [facility] Work Phone: Tricyclic Antidepressants, Urine Negative NEGATIVE [facility] Work Phone: Comment on above: Drug screen results are to be used for medical purposes only. All positive results are unconfirmed. Testing for employment or legal uses should be sent to a reference laboratory for confirmation. Vital Signs Date Time Vital Sign Value Performing Clinician Krystina cole 03-26-2024 18:12-0500 Diastolic blood pressure 71 mm[Hg] Shabnam Baxter MD Work Phone: [facility] 03-26-2024 18:12-0500 Heart rate 70 /min Shabnam Baxter MD Work Phone: [employer] 03-26-2024 18:12-0500 Respiratory rate 14 /min Shabnam Baxter MD Work Phone: [facility] 03-26-2024 18:12-0500 SaO2% (BldA) [Mass fraction] 99 % Shabnam Baxter MD Work Phone: [facility] 03-26-2024 18:12-0500 Systolic blood pressure 183 mm[Hg] Shabnam Baxter MD Work Phone: [facility] 03-26-2024 15:54-0500 Body temperature 97.39 [degF] Shabnam Baxter MD Work Phone: [facility] 01-21-2024 14:44-0500 Body temperature 97.5 [degF] Shabnam Baxter MD Work Phone: [facility] 01-21-2024 14:44-0500 Diastolic blood pressure 63 mm[Hg] Shabnam Baxter MD Work Phone: [facility] 01-21-2024 14:44-0500 Heart rate 79 /min Shabnam Baxter MD Work Phone: [facility] 01-21-2024 14:44-0500 Respiratory rate 16 /min Shabnam Baxter MD Work Phone: [facility] 01-21-2024 14:44-0500 SaO2% (BldA) [Mass fraction] 99 % Shabnam Baxter MD Work Phone: [employer] 01-21-2024 14:44-0500 Systolic blood pressure 148 mm[Hg] Shabnam Baxter MD Work Phone: [employer] 10-21-2021 19:45-0400 Diastolic blood pressure 62 mm[Hg] Eliecer Burris MD [facility] [employer] 10-21-2021 19:45-0400 Heart rate 56 /min Eliecer Burris MD [facility] [employer] [facility] 10-21-2021 19:45-0400 Respiratory rate 16 /min [facility] [employer] 10-21-2021 19:45-0400 SaO2% (BldA) [Mass fraction] 98 % Eliecer Burris MD [facility] 10-21-2021 19:45-0400 Systolic blood pressure 176 mm[Hg] Eliecer Burris MD [facility] 10-21-2021 17:49-0400 Body mass index (BMI) [Ratio] 27.46 kg/m2 Eliecer Burris MD [facility] 10-21-2021 17:49-0400 Body weight 74.84 kg Eliecer Burris MD [facility] 10-05-2021 16:12-0400 Diastolic blood pressure 58 mm[Hg] Eliecer Burris MD [facility] 10-05-2021 16:12-0400 Heart rate 50 /min Eliecer [facility]ris [facility] 10-05-2021 16:12-0400 Respiratory rate 11 /min Eliecer Burris MD [facility] 10-05-2021 16:12-0400 SaO2% (BldA) [Mass fraction] 100 % Eliecer Burris MD [facility] 10-05-2021 16:12-0400 Systolic blood pressure 145 mm[Hg] Eliecer Burris MD [facility] 10-05-2021 14:16-0400 Body height 165.1 cm Eliecer Burris MD [facility] 10-05-2021 14:16-0400 Body mass index (BMI) [Ratio] 24.96 kg/m2 Eliecer Burris MD [facility] 10-05-2021 14:16-0400 Body temperature 97.5 [degF] Eliecer [facility]ris MD [facility] [employer] 10-05-2021 14:16-0400 Body weight 68.04 kg Eliecer [facility] 09-04-2020 13:00-0400 Body temperature 97.7 [degF] Vernon Patino MD Work Phone: [facility] [employer] Work Phone: 09-04-2020 13:00-0400 Diastolic blood pressure 49 mm[Hg] Vernon Patino MD Work Phone: [employer] Work Phone: 09-04-2020 13:00-0400 Heart rate 59 /min Vernno Patino MD Work Phone: [employer] Work Phone: 09-04-2020 13:00-0400 Respiratory rate 16 /min Vernon Patino MD Work Phone: [employer] Work Phone: 09-04-2020 13:00-0400 SaO2% (BldA) [Mass fraction] 98 % Vernon Patino MD Work Phone: [employer] Work Phone: 09-04-2020 13:00-0400 Systolic blood pressure 129 mm[Hg] Vernon Patino MD Work Phone: [employer] Work Phone: 09-03-2020 11:30-0400 Body height 165.1 cm Vernon Patino MD Work Phone: [employer] Work Phone: 09-02-2020 13:45-0400 Body mass index (BMI) [Ratio] 26.96 kg/m2 Vernon Patino MD Work Phone: [employer] Work Phone: 09-02-2020 13:45-0400 Body weight 73.48 kg Vernon Patino MD Work Phone: [employer] Work Phone: 09-02-2020 13:15-0400 Diastolic blood pressure 68 mm[Hg] Acosta Mendoza MD Work Phone: [employer] Work Phone: 09-02-2020 13:15-0400 Heart rate 84 /min Acosta Mendoza MD Work Phone: [employer] Work Phone: 09-02-2020 13:15-0400 Respiratory rate 14 /min Acosta Mendoza MD Work Phone: [employer] Work Phone: 09-02-2020 13:15-0400 SaO2% (BldA) [Mass fraction] 95 % Acosta Mendoza MD Work Phone: [employer] Work Phone: 09-02-2020 13:15-0400 Systolic blood pressure 141 mm[Hg] Acosta Mendoza MD Work Phone: [employer] Work Phone: 09-02-2020 07:49-0400 Body height 165.1 cm Acosta Mendoza MD Work Phone: [employer] Work Phone: 09-02-2020 07:28-0400 Body mass index (BMI) [Ratio] 25.63 kg/m2 Acosta Mendoza MD Work Phone: [employer] Work Phone: 09-02-2020 07:28-0400 Body weight 69.85 kg Acosta Mendoza MD Work Phone: [employer] Work Phone: 09-02-2020 07:07-0400 Body temperature 97.59 [degF] Acosta Mendoza MD Work Phone: [employer] Work Phone: 06-02-2020 17:16-0400 Diastolic blood pressure 62 mm[Hg] Law Andes DO Work Phone: [employer] Work Phone: 06-02-2020 17:16-0400 Heart rate 66 /min Law Andes DO Work Phone: [employer] Work Phone: 06-02-2020 17:16-0400 SaO2% (BldA) [Mass fraction] 96 % Law Andes DO Work Phone: [employer] Work Phone: 06-02-2020 17:16-0400 Systolic blood pressure 139 mm[Hg] Law Andes DO Work Phone: [employer] Work Phone: 06-02-2020 14:07-0400 Body mass index (BMI) [Ratio] 28.32 kg/m2 Law Andes DO Work Phone: [employer] Work Phone: 06-02-2020 14:07-0400 Body temperature 98.29 [degF] Law Andes DO Work Phone: [employer] Work Phone: 06-02-2020 14:07-0400 Body weight 74.84 kg Law Andes DO Work Phone: [employer] Work Phone: 06-02-2020 14:07-0400 Respiratory rate 14 /min Law Andes DO Work Phone: [employer] Work Phone: 05-08-2020 21:30-0400 BP Diastolic 72 mm[Hg] Patrick Samanage Work Phone: 05-08-2020 21:30-0400 BP Systolic 166 mm[Hg] Patrick Samanage Work Phone: 05-08-2020 21:30-0400 Pulse Oximetry 100 % Patrick Samanage Work Phone: 05-08-2020 18:16-0400 Pulse (Heart Rate) 72 /min Patrick Samanage Work Phone: 05-08-2020 18:16-0400 Respiratory Rate 18 /min Patrick Samanage Work Phone: 05-08-2020 18:14-0400 Body Temperature 96.3 [degF] Patrick Panday [employer] Work Phone: 04-19-2020 11:30-0500 BP Diastolic 57 mm[Hg] Dwight Duffy [employer] Phone: 04-19-2020 11:30-0500 BP Systolic 125 mm[Hg] Dwight Duffy [employer] Phone: 04-19-2020 11:30-0500 Pulse (Heart Rate) 68 /min Dwight Villalba [facility] Work Phone: 04-19-2020 11:30-0500 Respiratory Rate 16 /min Dwight Villalba [facility] Work Phone: 04-19-2020 10:03-0500 Pulse Oximetry 96 % Dwight Duffy [employer] Phone: 04-19-2020 07:46-0500 BMI (Body Mass Index) 27.12 kg/m2 Dwight Duffy [employer] Phone: 04-19-2020 07:46-0500 Body Temperature 97.2 [degF] Dwight Villalba [facility] Work Phone: 04-19-2020 07:46-0500 Body weight 71.67 kg Dwight Duffy [employer] Phone: 04-19-2020 07:46-0500 Height 162.6 cm Dwight Duffy [employer] Phone: Encounters Encounter Date Encounter Type Care Provider Facility Start: 05-29-2024 End: 05-29-2024 ambulatory Tahir Sparrow MD Facility: [facility] Start: 05-15-2024 End: 05-15-2024 ambulatory MOLINA Villalba [facility] Start: 05-15-2024 End: 05-15-2024 Subsequent hospital visit by physician Molina Ramos DO Work Phone: [facility] Start: 05-15-2024 End: 05-15-2024 ambulatory Tahir Sparrow MD Facility:[facility] Start: 04-17-2024 End: 04-17-2024 ambulatory Tahir Sparrow MD Facility:[facility] Start: 03-26-2024 End: 03-26-2024 Emergency department patient visit Shabnam Baxter MD Work Phone: [facility] Emergency Department Comment on above: Altered mental statu s, unspecified altered mental status type (Primary Dx); Abnormal CT scan; Urinary tract infection without hematuria, site unspecified Start: 03-20-2024 End: 03-20-2024 ambulatory Tahir Sparrow MD Facility: [facility] Start: 02-16-2024 End: 02-18-2024 [facility] Start: 02-16-2024 End: 02-18-2024 Subsequent hospital visit by physician Florencia [facility] Scan Room [facility] CT Scan Comment on above: Somatic dysfunction of lumbar region; Lumbar radiculopathy Start: 01-21-2024 End: 01-21-2024 Emergency department patient visit Shabnam Baxter MD Work Phone: [facility] Emergency Department Comment on above: Strain of lumbar reg ion, initial encounter (Primary Dx) Start: 12-24-2023 End: 12-24-2023 ambulatory MOLINA [facility] Start: 12-24-2023 End: 12-24-2023 Subsequent hospital visit by physician Quincy Kumar PTA [facility] Therapy Comment on above: Arrived Start: 12-20-2023 End: 12-20-2023 ambulatory MOLINA [facility] Start: 12-20-2023 End: 12-20-2023 Subsequent hospital visit by physician Moraima Dela Cruz PTA [facility] Physical Therapy Comment on above: Arrived Start: 12-17-2023 End: 12-17-2023 ambulatory MOLINA [facility] Start: 12-17-2023 End: 12-17-2023 Subsequent hospital visit by physician Dario Ruiz PT [facility] Physical Therapy Comment on above: Arrived Start: 12-13-2023 End: 12-13-2023 ambulatory [facility]OLINA [facility] Start: 12-13-2023 End: 12-13-2023 Subsequent hospital visit by physician Moraima Dela Cruz PTA [facility] Physical Therapy Comment on above: Arrived Start: 12-10-2023 End: 12-10-2023 ambulatory [facility]OLINA [facility] Start: 12-10-2023 End: 12-10-2023 Subsequent hospital visit by physician Moraima Dela Cruz PTA [facility] Physical Therapy Comment on above: Arrived Start: 12-06-2023 End: 12-06-2023 ambulatory [facility]OLINA [facility] Start: 12-06-2023 End: 12-06-2023 Subsequent hospital visit by physician Quincy Kumar PTA [facility] Physical Therapy Comment on above: Arrived Start: 12-03-2023 End: 12-03-2023 ambulatory [facility]OLINA [facility] Start: 12-03-2023 End: 12-03-2023 Subsequent hospital visit by physician Moraima Dela Cruz PTA [facility] Physical Therapy Comment on above: Arrived Start: 11-29-2023 End: 11-29-2023 [facility] Start: 11-29-2023 End: 11-29-2023 Subsequent hospital visit by physician Moraima Dela Cruz PTA [facility] Physical Therapy Comment on above: Arrived Start: 11-26-2023 End: 11-26-2023 [facility]ulatory [facility] Start: 11-26-2023 End: 11-26-2023 Subsequent hospital visit by physician Moraima Dela Cruz PTA [facility] Physical Therapy Comment on above: Arrived Start: 11-24-2023 End: 11-24-2023 ambulatory [facility] Start: 11-24-2023 End: 11-24-2023 Subsequent hospital visit by physician Moraima Dela Cruz PTA [facility] Physical Therapy Comment on above: Arrived Start: 11-22-2023 End: 11-22-2023 ambulatory [facility] Start: 11-19-2023 End: 11-19-2023 ambulatory [facility] Start: 11-17-2023 End: 11-17-2023 ambulatory [facility] Start: 11-15-2023 End: 11-15-2023 ambulatory [facility] Start: 11-12-2023 End: 11-12-2023 ambulatory [facility] Start: 11-12-2023 End: 11-12-2023 Subsequent hospital visit by physician Moraima Dela Cruz PTA [facility] Physical Therapy Comment on above: Arrived Start: 11-10-2023 End: 11-10-2023 ambulatory [facility] Start: 11-08-2023 End: 11-08-2023 ambulatory [facility] Start: 11-08-2023 End: 11-08-2023 Subsequent hospital visit by physician Moraima Dela Cruz PTA [facility] Physical Therapy Comment on above: Arrived Start: 2023 End: 2023 ambulatory [facility] Start: 2023 End: 2023 Subsequent hospital visit by physician Moraima Dela Cruz PTA [facility] Physical Therapy Comment on above: Arrived Start: 11-04-2023 End: 11-04-2023 ambulatory [facility] Start: 11-01-2023 End: 11-01-2023 ambulatory [facility] Start: 10-22-2023 End: 10-22-2023 ambulatory [facility] Start: 06-09-2023 End: 06-11-2023 ambulatory [facility] Start: 06-03-2023 End: 06-03-2023 ambulatory [facility] Start: 06-03-2023 ambulatory [facility] Start: 05-06-2023 End: 05-06-2023 Subsequent hospital visit by physician Quincy Kumar PTA [facility] Physical Therapy Comment on above: Arrived Start: 10-21-2021 End: 10-21-2021 Emergency department patient visit Eliecer Burris MD [facility] ED Comment on above: Elevated blood press ure reading (Primary Dx) Start: 10-15-2021 End: 10-17-2021 Subsequent hospital visit by physician Florencia Xr Dr Room 4 [facility] Laboratory Comment on above: Pain; Swelling Start: 10-10-2021 End: 10-12-2021 Subsequent hospital visit by physician [facility]amm[facility] Mammography Comment on above: Breast cancer screen ing by mammogram Start: 10-05-2021 End: 10-05-2021 Emergency department patient visit Eliecer Burris MD [facility] ED Comment on above: Dysarthria (Primary Dx); Acute cystitis without hematuria Start: 07-22-2021 End: 07-22-2021 Subsequent hospital visit by physician Molina Ramos DO Work Phone: [facility] Laboratory Start: 03-03-2021 End: 03-05-2021 Subsequent hospital visit by physician Florencia Vascular Imaging Room [facility] Vascular Lab Comment on above: Left leg swelling Start: 01-21-2021 End: 01-21-2021 Subsequent hospital visit by physician Quincy Kumar PTA [facility] Physical Therapy Comment on above: Arrived Start: 01-13-2021 End: 01-13-2021 Subsequent hospital visit by physician Ford Sarah [facility] Physical Therapy Comment on above: Arrived Start: 01-06-2021 End: 01-06-2021 Subsequent hospital visit by physician Darlin Ferrer PT [facility] Physical Therapy Comment on above: Arrived Start: 12-24-2020 End: 12-24-2020 Subsequent hospital visit by physician Delores Palma PT [facility] Physical Therapy Comment on above: Arrived Start: 12-23-2020 End: 12-23-2020 Subsequent hospital visit by physician Quincy Kumar PTA [facility] Physical Therapy Comment on above: Arrived Start: 12-17-2020 End: 12-17-2020 Subsequent hospital visit by physician Darlin Ferrer PT [facility] Physical Therapy Comment on above: Arrived Start: 12-10-2020 End: 12-10-2020 Subsequent hospital visit by physician Ford Sarah [facility] Physical Therapy Comment on above: Arrived Start: 09-02-2020 End: 09-04-2020 Evaluation and management of inpatient MOLINA RAMOS [facility] Start: 09-02-2020 End: 09-04-2020 Evaluation and management of inpatient Vernon Patino MD Work Phone: [id number] Comment on above: Altered mental statu s, unspecified altered mental status type (Primary Dx) Start: 09-02-2020 End: 09-05-[address] [facility] Start: 09-02-2020 End: 09-04-2020 Subsequent hospital visit by physician Acosta Mendoza MD Work Phone: [facility] Special Procedures Comment on above: Cerebral aneurysm; TGA (transient global amnesia) Start: 06-02-2020 End: 06-02-2020 Emergency department patient visit Law Stratton DO Work Phone: [facility] ED Comment on above: Nausea vomiting and diarrhea (Primary Dx); Other complicated headache syndrome; Dehydration Start: 05-08-2020 End: 05-08-2020 Emergency department patient visit Patrick Pandya Work Phone: [facility] ED Comment on above: Essential hypertensi on (Primary Dx) Start: 04-17-2020 End: 04-19-2020 Evaluation and management of inpatient Dwight Duffy [facility] Comment on above: TIA (transient ische shailesh attack) (Primary Dx) Procedures Date Procedure Procedure Detail Performing Clinician Start: 05-15-2024 Electrolyte panel Charl bhumika Goldy Ramos DO Work Phone: Start: 05-15-2024 Lipid panel Molina Goldy Ramos DO Work Phone: Start: 03-26-2024 Urinalysis microscopic only Shabnam Baxter MD Work Phone: Start: 03-26-2024 Urnls dip stick/tabl et rgnt auto w/o microscopy Shabnam Baxter MD Work Phone: Start: 03-26-2024 Radiologic exam ches t single view Shabnam Baxter MD Work Phone: Start: 03-26-2024 End: 03-26-2024 Ct head/brain w/o contrast material Shabnam Baxter MD Work Phone: Start: 03-26-2024 End: 03-26-2024 Comprehensive metabolic panel Shabnam Baxter MD Work Phone: Start: 03-26-2024 Ecg routine ecg w/le ast 12 lds w/i&r Shabnam Baxter MD Work Phone: Start: 03-26-2024 GLUCOSE, WHOLE BLOOD Me boogie Baxter MD Work Phone: Start: 02-16-2024 Ct lumbar spine w/o contrast [...] jammie Burris MD Start: 07-22-2021 Electrolyte panel Agustina Ramos DO Work Phone: Start: 03-03-2021 Dup-scan xtr veins unilateral/limited study Alissa Marx MD Work Phone: Start: 09-04-2020 Blood count hemoglobin King Monteiro MD Work Phone: Start: 09-03-2020 End: 09-03-2020 Blood count hemoglobin King Monteiro MD Work Phone: Start: 09-03-2020 Ct head/brain w/o co ntrast material Jayme Morton MD Work Phone: Start: 09-03-2020 IMMATURE PLATELET FRACTION King Monteiro MD Work Phone: Start: 09-03-2020 BASIC METABOLIC PANE L W/ REFLEX TO MG FOR LOW K Ralf Christie MD Work Phone: Start: 09-03-2020 SPECIMEN REJECTION Agrentina Christie MD Work Phone: Start: 09-02-2020 EEG [...] REFLEX TO MG FOR LOW K Marcelino Castellanos Puma Work Phone: Start: 04-18-2020 Blood count complete automated Irvingvasu Castellanos Puma Work Phone: Start: 04-18-2020 Hemoglobin glycosylated a1c Marcelino Castellanos Puma Work Phone: Start: 04-18-2020 Lipid panel Saeed Castellanos Puma Work Phone: Start: 04-17-2020 Speech and language therapy regime Marcelino Castellanos Puma Work Phone: Start: 04-17-2020 GLUCOSE, WHOLE BLOOD [...] Start: 04-17-2020 Comprehensive metabo lic panel Dwight Duffy Start: 04-17-2020 Prothrombin time Michmaria esther Winslow Tati Start: 04-17-2020 Thromboplastin time partial plasma/whole blood Dwight Winslow Tati Plan of Treatment Date Care Activity Detail Author Start: 05-15-2025 GFR test (Diabetes, CKD 3-4, OR last GFR 15-59) GFR test (Diabetes, CKD 3-4, OR last GFR 15-59) [facility] Start: 05-15-2025 Lipid panel Lipids [facility] Start: 03-26-2025 GFR test (Diabetes, CKD 3-4, OR last GFR 15-59) GFR test (Diabetes, CKD 3-4, OR last GFR 15-59) [facility] Start: 10-21-2024 GFR test (Diabetes, CKD 3-4, OR last GFR 15-59) GFR test (Diabetes, CKD 3-4, OR last GFR 15-59) [facility] Start: 10-21-2024 Lipid panel Lipids [facility] Start: 09-08-2024 Influenza vaccination Flu vaccine (Season Ended) [facility] Start: 07-19-2024 End: 07-19-2024 Patient encounter procedure 07/19/2024 9:00 AM EDT Office Visit [facility] [address] [phone] Apurva Vu, [employer] [address] [place] [address] [place] [address] 6 month [facility] Comment on above: 6 month Start: 05-08-2024 End: 05-08-2024 Patient encounter procedure 05/08/2024 2:20 PM EDT Office Visit [facility] [address] [phone] Alissa Marx MD [address] [place] [address] [place] [address] 6 month [facility] Comment on above: 6 month Start: 05-07-2024 COVID-19 Vaccine ( season) COVID-19 Vaccine () [facility] Start: 04-05-2024 Lipid panel Lipids [facility] Start: 03-09-2024 COVID-19 Vaccine ( season) COVID-19 Vaccine () [facility] Start: 12-24-2023 End: 12-24-2023 Patient encounter procedure 12/24/2023 1:00 PM EST Appointment [facility] Physical Therapy [address] [place], [place] [phone] Quincy Kumar PTA [facility] Physical Therapy Start: 12-20-2023 End: 12-20-2023 Patient encounter procedure 12/20/2023 1:15 PM EST Appointment [facility] Physical Therapy [address] [place], [place] [phone] Moraima Dela Cruz PTA [facility] Physical Therapy Start: 12-17-2023 End: 12-17-2023 Patient encounter procedure 12/17/2023 1:00 PM EST Appointment [facility] Physical Therapy [address] [place], [place] [phone] [facility]iz[facility] Comment on above: [facility] Start: 12-13-2023 End: 12-13-2023 Patient encounter procedure 12/13/2023 1:15 PM EST Appointment [facility] Physical Therapy [address] [place] [phone] Moraima Dela Cruz PTA [facility] Physical Therapy Start: 12-10-2023 End: 12-10-2023 Patient encounter procedure 12/10/2023 1:30 PM EDT Appointment [facility] [address] [place] [phone] Moraima Dela Cruz PTA [facility] Physical Therapy Start: 12-06-2023 End: 12-06-2023 Patient encounter procedure 12/06/2023 1:15 PM EDT Appointment [facility] Physical Therapy [address] [place] [phone] Quincy Kumar PTA [facility] Physical Therapy Start: 12-03-2023 End: 12-03-2023 Patient encounter procedure 12/03/2023 1:00 PM EDT Appointment [facility] [address] [place], [place] [phone] Moraima Dela Cruz PTA [facility] Physical Therapy Start: 11-29-2023 End: 11-29-2023 Patient encounter procedure 11/29/2023 2:00 PM EDT Appointment [facility] [address] [place], [place] [phone] Moraima Dela Cruz PTA [facility] Physical Therapy Start: 11-26-2023 End: 11-26-2023 Patient encounter procedure [facility] Physical Therapy Comment on above: [facility] Start: 11-24-2023 End: 11-24-2023 Patient encounter procedure 11/24/2023 1:15 PM EDT Appointment [facility] Physical Therapy [address] [place], [place] [phone] Moraima Dela Cruz PTA [facility] Physical Therapy Start: 11-22-2023 End: 11-22-2023 Patient encounter procedure 11/22/2023 1:15 PM EDT Appointment [facility] Physical Therapy [address] [place], [place] [phone] Moraima Dela Cruz, COLLEGE PROFESSOR [facility] Start: 11-19-2023 End: 11-19-2023 Patient encounter procedure 11/19/2023 1:00 PM EDT Appointment [facility] Physical Therapy [address] [place], [place] [phone] Moraima Dela Cruz PTA [facility] Start: 11-17-2023 End: 11-17-2023 Patient encounter procedure 11/17/2023 1:00 PM EDT Appointment [facility] [address] [place] [phone] Moraima Dela Cruz COLLEGE PROFESSOR [facility] Start: 11-15-2023 End: 11-15-2023 Patient encounter procedure 11/15/2023 1:15 PM EDT Appointment [facility] [address] [place] [phone] Moraima Dela Cruz, COLLEGE PROFESSOR [facility] Start: 11-12-2023 End: 11-12-2023 Patient encounter procedure 11/12/2023 1:00 PM EDT Appointment [facility] [address] [place] [phone] Moraima Dela Cruz, COLLEGE PROFESSOR [facility] Physical Therapy Start: 11-10-2023 End: 11-10-2023 Patient encounter procedure 11/10/2023 1:15 PM EDT Appointment [facility] Physical Therapy [address] [place] [phone] Moraima Dela Cruz, COLLEGE PROFESSOR [facility] Physical Therapy Start: 11-08-2023 End: 11-08-2023 Patient encounter procedure 11/08/2023 1:15 PM EDT Appointment [facility] Physical Therapy [address] [place] [phone] Moraima Dela Cruz, COLLEGE PROFESSOR [facility] Physical Therapy Start: 10-25-2023 End: 10-25-2023 Patient encounter procedure 10/25/2023 2:20 PM EDT Office Visit [facility] [address] [phone] Alissa Marx MD [address] [place] [phone] 6 month [facility] Comment on above: 6 month Start: 10-10-2023 COVID-19 Vaccine ( season) COVID-19 Vaccine ( season) [facility] Start: 09-09-2023 Influenza vaccination Flu vaccine (#1) [facility] Start: 06-09-2023 End: 06-09-2023 Patient encounter procedure 06/09/2023 6:30 PM EDT Appointment [facility] Mamm[facility] [address] [place] [phone] self referraljulián pt [facility]ammography Comment on above: self referral, julián guadarrama pt Start: 06-03-2023 End: 06-03-2023 Patient encounter procedure 06/03/2023 12:30 PM EDT Appointment [facility] Physical Therapy [address] [place] [address] [phone] Jennifer Carrillo, PT MEDICARE [facility] Physical Therapy Comment on above: MEDICARE Start: 05-27-2023 End: 05-27-2023 Patient encounter procedure 05/27/2023 12:30 PM EDT Appointment [facility] Physical Therapy [address] [place] [phone] Quincy Kumar PTA [facility] Physical Therapy Start: 05-24-2023 End: 05-24-2023 Patient encounter procedure 05/24/2023 12:30 PM EDT Appointment [facility] Physical Therapy [address] [place] [phone] Quincy Kumar PTA [facility] Physical Therapy Start: 05-21-2023 End: 05-21-2023 Patient encounter procedure 05/21/2023 1:00 PM EDT Appointment [facility] Physical Therapy [address] [place] [phone] Quincy Kumar PTA [facility] Physical Therapy Start: 05-20-2023 End: 05-20-2023 Patient encounter procedure 05/20/2023 3:30 PM EDT Appointment [facility] Physical Therapy [address] [place] [phone] Quincy Kumar PTA [facility] Physical Therapy Start: 05-14-2023 End: 05-14-2023 Patient encounter procedure 05/14/2023 2:15 PM EDT Appointment [facility] Physical Therapy [address] [place] [phone] Jennifer Carrillo PT [facility] Physical Therapy Start: 05-13-2023 End: 05-13-2023 Patient encounter procedure 05/13/2023 3:30 PM EDT Appointment [facility] Physical Therapy [address] [place] [phone] Quincy Kumar PTA [facility] Physical Therapy Start: 01-04-2023 Annual Wellness Visit (Medicare) Annual Wellness Visit (Medicare) [facility] Start: 10-09-2022 COVID-19 Vaccine ( season) COVID-19 Vaccine ( season) [facility] Start: 09-10-2022 Shingles vaccine (3 of 3) Shingles vaccine (3 of 3) [facility] Start: 09-08-2022 Influenza vaccination Flu vaccine (#1) [facility] Start: 06-14-2023 Lipid panel Lipids [facility] Start: 01-05-2022 End: 01-05-2022 Patient encounter procedure 01/05/2022 Office Visit Neurology Lorenzo Vang MD [address] [place] [address] [facility] Start: 10-10-2021 End: 10-10-2021 Patient encounter procedure 10/10/2021 Appointment Radiology [facility] Start: 10-09-2021 Influenza vaccination [facility] [employer] Start: 10-06-2021 End: 10-05-2022 Echo 2d w doppler w color w contrast Echo 2d w doppler w color w contrast Echocardiography Routine Dysarthria Expected: 10/06/2021, Expires: 10/05/2022 [facility] [employer] Work Phone: Comment on above: Expected: 10/06/2021, Expires: Start: 09-03-2021 Creatinine measurement Creatinine monitoring [facility] Phone: Start: 09-03-2021 Potassium monitoring Potassium monitoring [facility] Phone: Start: 09-02-2021 Lipid panel [employer] Start: 06-02-2021 Creatinine measurement Creatinine monitoring [facility] Phone: Start: 06-02-2021 Potassium monitoring Potassium monitoring [facility] Phone: Start: 05-08-2021 Creatinine measurement Creatinine monitoring [facility] Phone: Start: 05-08-2021 Potassium monitoring Potassium monitoring [facility] Phone: Start: 04-18-2021 Creatinine measurement Creatinine monitoring [facility] Phone: Start: 04-18-2021 Lipid panel Lipid screen [facility] Phone: Start: 04-18-2021 Potassium monitoring Potassium monitoring [facility] Phone: Start: 03-03-2021 End: 03-03-2021 Patient encounter procedure [facility] Start: 02-24-2021 COVID-19 Vaccine (2 - Pfizer series) COVID-19 Vaccine (2 - Pfizer series) [facility] Start: 02-04-2021 End: 02-04-2021 Patient encounter procedure 02/04/2021 Appointment Physical [facility] Start: 02-03-2021 End: 02-03-2021 Patient encounter procedure 02/03/2021 Appointment Physical Therapy Darlin Ferrer PT [facility] Start: 01-28-2021 End: 01-28-2021 Patient encounter procedure 01/28/2021 Appointment Physical Therapy [facility] Start: 01-27-2021 End: 01-27-2021 Patient encounter procedure 01/27/2021 Appointment Physical Therapy Darlin Ferrer PT [facility] Start: 01-21-2021 End: 01-21-2021 Patient encounter procedure 01/21/2021 Appointment Physical Therapy Quincy Kumar PTA [facility] Start: 01-20-2021 End: 01-20-2021 Patient encounter procedure 01/20/2021 Appointment Physical Therapy [facility] Start: 01-14-2021 End: 01-14-2021 Patient encounter procedure 01/14/2021 Appointment Physical Therapy [facility] Start: 01-13-2021 End: 01-13-2021 Patient encounter procedure 01/13/2021 Appointment Physical Therapy [facility] Start: 01-06-2021 End: 01-06-2021 Patient encounter procedure 01/06/2021 Appointment Physical Therapy Darlin Ferrer PT [facility] Start: 12-31-2020 End: 12-31-2020 Patient encounter procedure 12/31/2020 Appointment Physical Therapy Quincy Kumar PTA [facility] Start: 12-30-2020 End: 12-30-2020 Patient encounter procedure [facility] Start: 12-24-2020 End: 12-24-2020 Patient encounter procedure [facility] Therapy Start: 12-23-2020 End: 12-23-2020 Patient encounter procedure 12/23/2020 Appointment Physical Therapy Quincy Kumar PTA [facility] Physical Therapy Start: 12-17-2020 End: 12-17-2020 Patient encounter procedure 12/17/2020 Appointment Physical Therapy Darlin Ferrer, PT [facility] Physical Therapy Start: 12-09-2020 End: 12-09-2020 Patient encounter procedure 12/09/2020 Office Visit Neurology Kristina Lomax MD [address] [place] [address] [facility] Start: 10-09-2020 Influenza vaccination [facility] Start: 10-04-2020 End: 10-04-2020 Patient encounter procedure 10/04/2020 Office Visit Neurology Ralf Christie MD [address] [facility] [facility] [place], [place] [phone] [facility] Start: 08-19-2020 End: 08-19-2020 Patient encounter procedure 08/19/2020 Office Visit Cardiology Alissa Marx MD [address] [place] [address] [facility] Start: 06-24-2020 End: 06-24-2020 Patient encounter procedure 06/24/2020 Office Visit Neurology Lorenzo Vang MD [address] [place] [address] [facility] Start: 06-10-2020 COVID-19 Vaccine (2 - Moderna 2-dose series) COVID-19 Vaccine (2 - Moderna 2-dose series) [facility] Work Phone: Start: 05-24-2020 End: 05-24-2020 Office Visit 05/24/2020 Office Visit Neurology Hudson Pittman MD [address] [place], [place] [phone] [facility] Start: 05-13-2020 End: 05-13-2020 Office Visit 05/13/2020 Office Visit Cardiology Alissa Marx MD [address] [place] [address] [facility] Start: 05-06-2020 End: 05-06-2020 Office Visit 05/06/2020 Office Visit Cardiology Alissa Marx MD [address] [place] [address] [facility] Start: 04-18-2020 End: 04-18-2021 [facility] Continuous [facility]iac Event [facility]iac Services Routine TIA (transient ischemic attack) Expected: 04/18/2020, Expires: 04/18/2021 [facility] Phone: Comment on above: Expected: 04/18/2020, Expires: Start: 10-10-2019 Influenza vaccination Flu vaccine (#1) [facility] Phone: Start: 07-31-2018 Annual Wellness Visit (AWV) Annual Wellness Visit (AWV) [facility] [employer] Start: 03-23-2017 Shingles Vaccine (2 of 3) Shingles Vaccine (2 of 3) [facility] Start: 2006 Pneumococcal 65+ years Vaccine (1 - PCV) Pneumococcal 65+ years Vaccine (1 - PCV) [facility] Start: 2006 Pneumococcal 65+ years Vaccine (1 of 1 - PPSV23) Pneumococcal 65+ years Vaccine (1 of 1 - PPSV23) [facility] Start: 2001 Respiratory Syncytial Virus (RSV) or age 60 yrs+ (1 - 1-dose 60+ series) Respiratory Syncytial Virus (RSV) or age 60 yrs+ (1 - 1-dose 60+ series) [facility] Start: 1960 DTaP/Tdap/Td vaccine (1 - Tdap) DTaP/Tdap/Td vaccine (1 - Tdap) [facility] Start: 1960 Pneumococcal 50+ years Vaccine (1 of 2 - PCV) Pneumococcal 50+ years Vaccine (1 of 2 - PCV) [facility] Start: 11-06-1959 Hepatitis C screening Hepatitis C screen [facility] Start: 11-06-1959 Urine screening for protein Diabetic Alb to Cr ratio (uACR) test [facility] Healthcare Start: 1957 COVID-19 Vaccine (1) COVID-19 Vaccine (1) [facility] [employer] [place] Work Phone: Start: 1953 COVID-19 Vaccine (1) COVID-19 Vaccine (1) [facility] Start: 1953 Depression Screen Depression Screen [facility] Start: 11-06-1947 Pneumococcal 65+ years Vaccine (1 of 2 - PCV) Pneumococcal 65+ years Vaccine (1 of 2 - PCV) [facility] Start: 1946 COVID-19 Vaccine (1) COVID-19 Vaccine (1) [facility] Start: 1941 Annual Wellness Visit (AWV) Annual Wellness Visit (AWV) [facility] Start: 1940 Hepatitis C screening Hepatitis C screen [facility] End: 10-05-2021 Culture, Urine [facility] Work Phone: Comment on above: One Time for 1 Occurrences starting 09/09 until 10/05/2021 End: 03-26-2024 Culture, Urine [facility] [employer] [place] Comment on above: Once for 1 Occurrences starting 03/26/19 until 03/26/2024 EKG 12 Lead EKG 12 Lead ECG Routine 10/05/2021 2:23 PM EDT [facility] Work Phone: EKG 12 Lead EKG 12 Lead ECG STAT 10/21/2021 5:01 PM EDT [facility] 12 Lead EKG 12 Lead ECG STAT 03/26/2024 2:35 PM EST [employer] End: 07-22-2021 Hemoglobin A1c/Hemoglobin.total in Blood [facility] Phone: Comment on above: Once for 1 Occurrences starting 07/23/19 until 07/22/2021 Intermittent pulse oximetry Pulse Oximetry Spot Check Respiratory Care Routine As Needed until discontinued starting 09/02/2020 [employer] Phone: Comment on above: As Needed until discontinued starting End: 09-02-2020 IR ANGIOGRAM CAROTID CEREBRAL BILATERAL IR ANGIOGRAM CAROTID CEREBRAL BILATERAL Imaging Routine Cerebral aneurysm 1 Occurrences starting 09/02/2020 until 09/02/2020 [facility] Phone: Comment on above: 1 Occurrences starting 09/02/2020 until 09/02/2020 IR ANGIOGRAM CAROTID CEREBRAL BILATERAL IR ANGIOGRAM CAROTID CEREBRAL BILATERAL Imaging Routine Cerebral aneurysm 09/02/2020 9:42 AM EDT [facility] Phone: LAB SCANNED REPORT LAB SCANNED R EPORT Lab Ordered: 09/04/2020 [employer] Phone: Comment on above: Ordered: 09/04/2020 End: 07-22-2021 Lipid panel [facility] Phone: Comment on above: Once for 1 Occurrences starting 07/23/19 until 07/22/2021 End: 04-19-2020 [facility] Continuous Cardia Event Monitor [facility] Continuous Cardia Event Monitor Cardiac Services Routine One Time for 1 Occurrences starting 04/19/2020 until 04/19/2020 [employer] Phone: Comment on above: One Time for 1 Occurrences starting 04/08 until 04/19/2020 End: 10-10-2021 [facility] ESME DIGITAL SCREEN SELF REFERRAL W OR WO CAD BILATERAL [facility] Phone: Comment on above: 1 Occurrences starting 10/10/2021 until 10/10/2021 End: 09-02-2020 MRI LIMITED BRAIN MRI LIMITED BRAIN Imaging STAT Once for 1 Occurrences starting 09/02/2020 until 09/02/2020 [facility] Phone: Comment on above: Once for 1 Occurrences starting 09/03/19 21 until 09/02/2020 MRI LIMITED BRAIN MRI LIMITED BR AIN Imaging STAT 09/02/2020 11:34 AM EDT [facility] Phone: Oxygen therapy [[facility] [place] Data Set] [facility] Phone: Comment on above: Daily until discontinued starting 2020 Daily until disconti nued starting 09/02/2020 End: 09-03-2020 PREVIOUS SPECIMEN PREVIOUS SPECIMEN Lab Routine Once for 1 Occurrences starting 09/03/2020 until 09/03/2020 [facility] Phone: Comment on above: Once for 1 Occurrences starting 09/04/19 21 until 09/03/2020 End: 09-02-2020 Speech and language therapy regime Speech Language Pathology (HAND CANDY DIPPER) eval and treat HAND CANDY DIPPER Routine One Time for 1 Occurrences starting 09/02/2020 until 09/02/2020 [facility] Phone: Comment on above: One Time for 1 Occurrences starting 08/09 until 09/02/2020 End: 05-15-2024 Urinalysis Gracia Paramjit [facility] Phone: Comment on above: Once for 1 Occurrences starting 05/16/19 25 until 05/15/2024 End: 04-19-2020 US Heart Transesophageal Echocardiogram transesophogeal Echocardiography STAT One Time for 1 Occurrences starting 04/19/2020 until 04/19/2020 [facility] Phone: Comment on above: One Time for 1 Occurrences starting 04/08 until 04/19/2020 Immunizations Immunization Date Immunization Notes Care Provider Divine huntley 11-26-2017 Influenza Vaccine, unspecified formulation Dwight Duffy [employer] 01-26-2017 zoster vaccine, live Dwight christian [facility] Phone: Payers Date Payer Category Payer Medicare [id number] 2024 Medicare 2014 Private Health Insurance [facility] [id number] 2001 Medicare [id number] 2001 Medicare [id number] 1941 Unknown [id number] 2.16.8 40.1.614069.3.579.2.175 1941 Unknown [id number] 2.16.8 40.1.917509.3.579.2.175 1941 Unknown [id number] 2.16.8 40.1.939434.3.579.2.173 1941 Unknown [id number] 2.16.8 40.1.087793.3.579.2.173 1941 Unknown [id number] 2.16.8 40.1.045054.3.579.2.173 1941 Unknown [id number] 2.16.8 40.1.360111.3.579.2.173 1941 Unknown [id number] 2.16.8 40.1.891514.3.579.2.173 1941 Unknown [id number] 2.16.8 40.1.033189.3.579.2.173 1941 Unknown [id number] 2.16.8 40.1.711712.3.579.2.173 1941 Unknown [id number] 2.16.8 40.1.807242.3.579.2.173 1941 Unknown [id number] 2.16.8 40.1.835789.3.579.2.173 1941 Unknown [id number] 2.16.8 40.1.735676.3.579.2.173 1941 Unknown [id number] 2.16.8 40.1.424422.3.579.2.173 1941 Unknown [id number] 2.16.8 40.1.313708.3.579.2.173 1941 Unknown [id number] 2.16.8 40.1.104226.3.579.2.173 1941 Unknown [id number] 2.16.8 40.1.175756.3.579.2.173 1941 Unknown [id number] 2.16.8 40.1.642325.3.579.2.173 1941 Unknown [id number] 2.16.8 40.1.495854.3.579.2.173 1941 Unknown [id number] 2.16.8 40.1.711644.3.579.2.173 1941 Unknown [id number] 2.16.8 40.1.637969.3.579.2.173 1941 Unknown [id number] 2.16.8 40.1.240101.3.579.2.173 1941 Unknown [id number] 2.16.8 40.1.995669.3.579.2.173 1941 Unknown [id number] 2.16.8 40.1.277002.3.579.2.173 1941 Unknown [id number] 2.16.8 40.1.993974.3.579.2.173 1941 Unknown [id number] 2.16.8 40.1.500542.3.579.2.173 1941 Unknown [id number] 2.16.8 40.1.185450.3.579.2.173 1941 Unknown [id number] 2.16.8 40.1.677696.3.579.2.173 1941 Unknown [id number] 2.16.8 40.1.756004.3.579.2.173 1941 Unknown [id number] 2.16.8 40.1.965248.3.579.2.173 1941 Unknown [id number] 2.16.8 40.1.853831.3.579.2.173 1941 Unknown [id number] 2.16. 840.1.327628.3.579.2.196 1941 Unknown [id number] 2.16. 840.1.181027.3.579.2.196 1941 Unknown [id number] 2.16. 840.1.733529.3.579.2.196 1941 Unknown [id number] 2.16. 840.1.455203.3.579.2.196 Social History Date Type Detail Facility Start: 04-19-2020 End: 10-10-2021 Tobacco smoking status MAIS Never smoker [employer] Start: 04-19-2020 End: 10-10-2021 Tobacco use and exposure Never used [facility] Phone: Start: 04-19-2020 End: 01-21-2024 Alcohol intake Current non-drinker of alcohol (finding) [facility] Phone: Start: 1940 Sex Assigned At Not on file [employer] Phone: Start: 09-25-2021 End: 10-21-2021 Exposure to SARS-CoV-2 (event) Not sure [facility] Phone: Exposure to SARS-CoV -2 (event) Yes [employer] Start: 04-04-2023 End: 01-21-2024 History of Social function [employer] Start: 04-04-2023 End: 01-21-2024 [facility] Utilities [employer] Has the electric, ga s, oil, or water [place] threatened to shut off services in your home in past 12Mo No [employer] How often to you hav e a drink containing alcohol? Never [employer] Average Number of Drinks Not on file [facility] [employer] (I/We) worried wheth er (my/our) food would run out before (I/we) got money to buy more. Never true [employer] Start: 03-20-2012 Sex Female (finding) Gr[facility] [employer] Medical Equipment Procedure Code Equipment Code Equipment Origin al Text Equipment Identifier Dates Lens Iol [employer] Mx60 25.0d - [id number] Start: 12-20-2017 Clinical Notes 09-02-2020 to 03-26-2024 Discharge InstructionsAttachmentsDischarge InstructionsAttachMoraima Mendoza, COLLEGE PROFESSOR - 12/20/2023 1:15 PM Dario Edgar PT - 12/17/2023 1:00 PM ESTDischarge InstructionsAttachmentsAttachments Note Date & Type Note Facility 03-26-2024 Hospital Discharge instructions Shabnam Baxter MD - 03/26/2024 6:15 PM EST Continue current medications as prescribed. Keflex as directed until complete. Follow-up with your primary care provider for reevaluation tomorrow as scheduled. Follow-up with neurology I did speak with the neurologist at [facility] they would be happy to see you but you may follow-up at neurology with [facility] [facility] send you been seen before for the same issue there. Please return immediately should you develop any severe headaches or any other acute concerns The following attachments cannot be sent through Care Everywhere.Altered Mental Status (Spanish)documented in this encounter [facility] 03-26-2024 Note ADDENDUM: Results were reported to Dr. Baxter by radiology results communication at 3:27 p.m. on March 26, 2024. Electronically Signed by: ANGELITO ALFONSO on [place] Mar 26, 2024 3:32:28 PM EST EXAMINATION: CT OF THE HEAD WITHOUT CONTRAST 03/26/2024 2:53 pm TECHNIQUE: CT of the head was performed without the administration of intravenous contrast. Automated exposure control, iterative reconstruction, and/or weight based adjustment of the mA/kV was utilized to reduce the radiation dose to as low as reasonably achievable. COMPARISON: None. HISTORY: ORDERING SYSTEM PROVIDED HISTORY: Aphasia since this morning 7 AM intermittent but now resolved TECHNOLOGIST PROVIDED HISTORY: Aphasia since this morning 7 AM intermittent but now resolved Decision Support Exception - unselect if not [...] soft tissues. IMPRESSION: No acute intracranial abnormality. Interpreted by: Angelito Alfonso MD Signed by: Angelito Alfonso MD 03/26/24 Edited Result - FINAL [facility] 02-17-2024 Note 1. Interval mild pro gression of L5 superior endplate fracture with 20% height loss. 2. Multilevel lumbar spondylosis. [facility] 01-21-2024 Hospital Discharge instructions Shabnam Baxter MD - 01/21/2024 4:50 PM EST Continue current medications as prescribed. Use [place] place of Tylenol for pain not controlled with Tylenol. Ehhp-stc-tzpbrri product such as IcyHot [place] balm Biofreeze or similar. Heat or ice for 5 to 10-minute intervals as desired for comfort. Follow-up with your primary care provider in 2 to 3 days for recheck. Please return immediately should develop any worsening symptoms or any other acute concerns The following attachments cannot be sent through Care Everywhere.Back: Strain (Spanish)documented in this encounter [facility] 12-20-2023 History of Present illness Narrative [facility] Outpatient Physical Therapy Daily Note Patient: Ever Palmer : 1940 CSN #: [id number] Referring Physician: Molina Ramos DO Date: 12/20/2023 [...] Exercise 3: retractions/LAE bTB x15, BTB palloff [id number] ea Exercise 5: ASU/LSU x15 ea Exercise [...] able to complete 5 sit/stands with no legal secretary and no LOB to improve functional strength.-progressing Hand Buffer Goals Time Frame for Hand Buffer Goals : 6 weeks Hand Buffer Goal 1: Patient to be independent and compliant with HEP.-progressing Half-Way Goal 2: Patient to have improved core and B hip strength >/=4/5 grossly for improved lumbar stability.-met Half-Way Goal 3: Patient to have improved B shoulder strength >/=4/5 grossly all planes for improved postural control.-met Half-Way Goal 4: Patient to report ability to stand/walk >/=15minutes with no increase in back pain and no fatigue to improve endurance and return to PLOF.-met Minutes Tracking: Time In: 1318 Time Out: 1410 Minutes: 52 Moraima Dela Cruz PTA Date: 12/20/2023 documented in this encounter [facility] 12-17-2023 History of Present illness Narrative [facility] Outpatient Physical Therapy Daily Note Patient: Ever Palmer : 1940 CSN #: [id number] Referring Physician: Molina Ramos DO Date: 12/17/2023 [...] Exercise 3: retractions/LAE bTB x15, GTB palloff [id number] ea - no palloff press Exercise 5: [...] able to complete 5 sit/stands with no legal secretary and no LOB to improve functional strength.-progressing Half-Way Goals Time Frame for Hand Buffer Goals : 6 weeks Half-Way Goal 1: Patient to be independent and compliant with HEP.-progressing Half-Way Goal 2: Patient to have improved core and B hip strength >/=4/5 grossly for improved lumbar stability.-met Half-Way Goal 3: Patient to have improved B shoulder strength >/=4/5 grossly all planes for improved postural control.-met Hand Buffer Goal 4: Patient to report ability to stand/walk >/=15minutes with no increase in back pain and no fatigue to improve endurance and return to PLOF.-met Minutes Tracking: Time In: 1301 Time Out: 1348 Minutes: 47 Timed Code Treatment Minutes: 46 Minutes Dario Ruiz, PT, DPT Date: 12/17/2023 documented in this encounter [facility] 12-06-2023 History of Present illness Narrative [facility] Outpatient Physical Therapy Daily Note Patient: Ever Palmer : 1940 CSN #: [id number] Referring Physician: Molina Ramos DO Date: 12/06/2023 [...] Exercise 3: retractions/LAE bTB x15, GTB palloff [id number] ea - no palloff press Exercise 4: [...] able to complete 5 sit/stands with no legal secretary and no LOB to improve functional strength.-progressing Half-Way Goals Time Frame for Half-Way Goals : 6 weeks Hand Buffer Goal 1: Patient to be independent and compliant with HEP.-progressing Half-Way Goal 2: Patient to have improved core and B hip strength >/=4/5 grossly for improved lumbar stability.-met Half-Way Goal 3: Patient to have improved B shoulder strength >/=4/5 grossly all planes for improved postural control.-progressing Hand Buffer Goal 4: Patient to report ability to stand/walk >/=15minutes with no increase in back pain and no fatigue to improve endurance and return to PLOF.-met Minutes Tracking: Time In: 1317 Time Out: 1400 Minutes: 43 Timed Code Treatment Minutes: 41 Minutes Quincy Kumar PTA Date: 12/06/2023 documented in this encounter [facility] 12-03-2023 History of Present illness Narrative [facility] Outpatient Physical Therapy Daily Note Patient: Ever Palmer : 1940 CSN #: [id number] Referring Physician: Molina Ramos DO Date: 12/03/2023 [...] Exercise 3: retractions/LAE bTB x15, GTB palloff [id number] ea - no palloff press Exercise 6: [...] able to complete 5 sit/stands with no legal secretary and no LOB to improve functional strength.-progressing Half-Way Goals Time Frame for Hand Buffer Goals : 6 weeks Hand Buffer Goal 1: Patient to be independent and compliant with HEP.-progressing Hand Buffer Goal 2: Patient to have improved core and B hip strength >/=4/5 grossly for improved lumbar stability.-met Half-Way Goal 3: Patient to have improved B shoulder strength >/=4/5 grossly all planes for improved postural control.-progressing Hand Buffer Goal 4: Patient to report ability to stand/walk >/=15minutes with no increase in back pain and no fatigue to improve endurance and return to PLOF.-met Minutes Tracking: Time In: 1303 Time Out: 1344 Minutes: 41 Moraima Dela Cruz PTA Date: 12/03/2023 documented in this encounter [facility] 11-29-2023 History of Present illness Narrative [facility] Outpatient Physical Therapy Daily Note Patient: Ever Palmer : 1940 [facility] #: [id number] Referring Physician: Molina Ramos DO Date: 11/29/2023 [...] Exercise 3: retractions/LAE bTB x15, GTB palloff ea - no palloff press Exercise 4: 6 lien step over forward/lateral x10 ea Exercise 7: Sit to stands 2x10 1 UE Exercise 10: Seated thoracic stretch 10x10 , ball roll outs x10 ea,ball push downs 5 x10 Exercise 13: Bertin retro walk 9# x5 Exercise 16: UBE retro x 4 min Exercise 17: Joystick x10 ea Assessment Assessment: Pt with moderate VCs for posture this visit, with noted moderate forward flexed posture. Pt with good tolerance to exercises, fatigues quickly. Continue as pt tolerates. [place] Back Pain Disability Scale Get out of [...] carry a heavy suitcase: Unable to do [place] Total Score: 59 Current Total Score: 59 [...] able to complete 5 sit/stands with no legal secretary and no LOB to improve functional strength.-progressing Half-Way Goals Time Frame for Hand Buffer Goals : 6 weeks Hand Buffer Goal 1: Patient to be independent and compliant with HEP.-progressing Half-Way Goal 2: Patient to have improved core and B hip strength >/=4/5 grossly for improved lumbar stability.-met Half-Way Goal 3: Patient to have improved B shoulder strength >/=4/5 grossly all planes for improved postural control.-progressing Half-Way Goal 4: Patient to report ability to stand/walk >/=15minutes with no increase in back pain and no fatigue to improve endurance and return to PLOF.-met Minutes Tracking: Time In: 1403 Time Out: 1446 Minutes: 43 Moraima Dela Cruz, COLLEGE PROFESSOR Date: 11/29/2023 documented in this encounter [facility] 11-26-2023 History of Present illness Narrative [facility] Outpatient Physical Therapy Daily Note Patient: Ever Palmer : 1940 CSN #: [id number] Referring Physician: Molina Ramos DO Date: 11/26/2023 [...] able to complete 5 sit/stands with no legal secretary and no LOB to improve functional strength.-progressing Hand Buffer Goals Time Frame for Half-Way Goals : 6 weeks Half-Way Goal 1: Patient to be independent and compliant with HEP.-progressing Hand Buffer Goal 2: Patient to have improved core and B hip strength >/=4/5 grossly for improved lumbar stability.-met Half-Way Goal 3: Patient to have improved B shoulder strength >/=4/5 grossly all planes for improved postural control.-progressing Hand Buffer Goal 4: Patient to report ability to stand/walk >/=15minutes with no increase in back pain and no fatigue to improve endurance and return to PLOF.-met Minutes Tracking: Time In: 1018 Time Out: 1100 Minutes: 42 Moraima Dela Cruz, COLLEGE PROFESSOR Date: 11/26/2023 documented in this encounter [facility] 11-24-2023 History of Present illness Narrative [facility] Outpatient Physical Therapy Daily Note Patient: Ever Palmer : 1940 CSN #: [id number] Referring Physician: Molina Ramos DO Date: 11/24/2023 [...] Exercise 3: retractions/LAE bTB x15, GTB palloff [id number] ea - no palloff press Exercise 5: [...] able to complete 5 sit/stands with no legal secretary and no LOB to improve functional strength.-progressing Hand Buffer Goals Time Frame for Hand Buffer Goals : 6 weeks Half-Way Goal 1: Patient to be independent and compliant with HEP.-progressing Hand Buffer Goal 2: Patient to have improved core and B hip strength >/=4/5 grossly for improved lumbar stability.-met Half-Way Goal 3: Patient to have improved B shoulder strength >/=4/5 grossly all planes for improved postural control.-progressing Half-Way Goal 4: Patient to report ability to stand/walk >/=15minutes with no increase in back pain and no fatigue to improve endurance and return to PLOF.-met Minutes Tracking: Time In: 1313 Time Out: 1356 Minutes: 43 Moraima Dela Cruz, COLLEGE PROFESSOR Date: 11/24/2023 documented in this encounter [facility] 11-12-2023 History of Present illness Narrative [facility] Outpatient Physical Therapy Daily Note Patient: Ever Mckay Spencer : 1940 [facility] #: [id number] Referring Physician: Molina Ramos DO Date: 11/12/2023 [...] Exercise 3: retractions/LAE GTB x15, GTB palloff [id number] ea Exercise 5: ASU/LSU x10 ea Exercise [...] able to complete 5 sit/stands with no legal secretary and no LOB to improve functional strength.-progressing Hand Buffer Goals Time Frame for Hand Buffer Goals : 6 weeks Hand Buffer Goal 1: Patient to be independent and compliant with HEP.-progressing Hand Buffer Goal 2: Patient to have improved core and B hip strength >/=4/5 grossly for improved lumbar stability.-progressing Half-Way Goal 3: Patient to have improved B shoulder strength >/=4/5 grossly all planes for improved postural control.-progressing Hand Buffer Goal 4: Patient to report ability to stand/walk >/=15minutes with no increase in back pain and no fatigue to improve endurance and return to PLOF.-progressing Minutes Tracking: Time In: 1301 Time Out: 1345 Minutes: 44 Moraima Jose De Jesus, COLLEGE PROFESSOR Date: 11/12/2023 documented in this encounter [facility] 11-08-2023 History of Present illness Narrative [facility] Outpatient Physical Therapy Daily Note Patient: Ever Palmer : 1940 CSN #: [id number] Referring Physician: Molina Ramos DO Date: 11/08/2023 [...] Exercise 3: retractions/LAE GTB x15, GTB palloff [id number] ea Exercise 4: Sink exercises x15 ea [...] able to complete 5 sit/stands with no legal secretary and no LOB to improve functional strength.-progressing Half-Way Goals Time Frame for Half-Way Goals : 6 weeks Half-Way Goal 1: Patient to be independent and compliant with HEP. Hand Buffer Goal 2: Patient to have improved core and B hip strength >/=4/5 grossly for improved lumbar stability. Hand Buffer Goal 3: Patient to have improved B shoulder strength >/=4/5 grossly all planes for improved postural control. Hand Buffer Goal 4: Patient to report ability to stand/walk >/=15minutes with no increase in back pain and no fatigue to improve endurance and return to PLOF. Minutes Tracking: Time In: 1316 Time Out: 1408 Minutes: 52 Moraima Dela Cruz, COLLEGE PROFESSOR Date: 11/08/2023 documented in this encounter [facility] 2023 History of Present illness Narrative [facility] Outpatient Physical Therapy Daily Note Patient: Ever Mckay Spencer : 1940 CSN #: [id number] Referring Physician: Molina Ramos DO Date: 2023 [...] able to complete 5 sit/stands with no legal secretary and no LOB to improve functional strength. Hand Buffer Goals Time Frame for Hand Buffer Goals : 6 weeks Hand Buffer Goal 1: Patient to be independent and compliant with HEP. Half-Way Goal 2: Patient to have improved core and B hip strength >/=4/5 grossly for improved lumbar stability. Half-Way Goal 3: Patient to have improved B shoulder strength >/=4/5 grossly all planes for improved postural control. Hand Buffer Goal 4: Patient to report ability to stand/walk >/=15minutes with no increase in back pain and no fatigue to improve endurance and return to PLOF. Minutes Tracking: Time In: 1316 Time Out: 1400 Minutes: 44 Moraima Dela Cruz, COLLEGE PROFESSOR Date: 2023 documented in this encounter [employer] 10-21-2021 Hospital Discharge instructions Eliecer Burris MD [...] be sent through Care Everywhere.Blood Pressure: Elevated (Spanish)documented in this encounter [facility] Phone: 10-05-2021 Hospital Discharge instructions Eliecer Burris MD - 10/05/2021 5:27 PM EDT Please follow-up with your primary care physician tomorrow. The neurologist has recommended that you have an echocardiogram; this will need to be scheduled by your primary care physician. The following attachments cannot be sent through Care Everywhere.UTI (Urinary Tract Infection): Female (Spanish)Dysarthria: General Info (Spanish)documented in this encounter [employer] Phone: 03-04-2021 Note [facility] Vascular Lower Extremities DVT Study Procedure Patient Name SPENCER Date of Study 03/03/2021 EVER Mckay Date of 1940 Gender Female Age 80 year(s) Race Room Number Corporate ID [id number] # Patient Acct [id number] # MR # [id number] Group Account Director Katie Jackson RVT Interpreting Physician Alissa Marx Referring Referring Physician Alissa Marx Nurse Practitioner Additional Comments REsults were reported to Dr. Marx's office 03/03/2021 @ 5977. Procedure Type of Study: Veins: Lower Extremities [...] + +--- ------+------+ (more content not included)... [facility] 01-21-2021 History of Present illness Narrative [facility] Outpatient Physical Therapy Daily Note Patient: Ever Palmer : 1940 CSN #: [id number] Referring Practitioner: Molina Ramos DO Referral Date [...] decrease stress on cervical spine - Met halfway goals Time Frame for halfway goals : 6 weeks termite inspector goal 1: Pt will be independent and compliant with HEP. termite inspector goal 2: Pt will improve L cervical rotation to be within 5* of R cervical rotation to improve functional mobility. halfway goal 3: Pt will perform TUG in </= 10 seconds to decrease fall risk.- progressing termite inspector goal 4: Pt will demonstrate ability to perform 5 sit to stands with hands on thighs to improve LE functional strength. Minutes Tracking: Time In: 930 Time Out: 1030 Minutes: 59 Timed Code Treatment Minutes: 43 Minutes Quincy Kumar PTA Date: 01/21/2021 documented in this encounter [place] Phone: 01-13-2021 History of Present illness Narrative [facility] Outpatient Physical Therapy Daily Note Patient: Ever Palmer : 1940 CSN #: [id number] Referring Practitioner: Molina Ramos DO Referral Date [...] decrease stress on cervical spine - Met halfway goals Time Frame for halfway goals : 6 weeks termite inspector goal 1: Pt will be independent and compliant with HEP. halfway goal 2: Pt will improve L cervical rotation to be within 5* of R cervical rotation to improve functional mobility. termite inspector goal 3: Pt will perform TUG in </= 10 seconds to decrease fall risk.- progressing termite inspector goal 4: Pt will demonstrate ability to perform 5 sit to stands with hands on thighs to improve LE functional strength. Minutes Tracking: Time In: 1045 Time Out: 1139 Minutes: 54 Timed Code Treatment Minutes: 53 Minutes Ford Marsh Date: 01/13/2021 [facility] 01-[facility]-2021 History of Present illness Narrative [facility] Outpatient Physical Therapy Daily Note Patient: Ever Palmer : 1940 CSN #: [id number] Referring Practitioner: Molina Ramos DO Referral Date [...] to stands with hands on thighs, meeting intermediate school teacher goal. Pt performs TUG x2, with best [...] decrease stress on cervical spine - Met termite inspector goals Time Frame for termite inspector goals : 6 weeks termite inspector goal 1: Pt will be independent and compliant with HEP. termite inspector goal 2: Pt will improve L cervical rotation to be within 5* of R cervical rotation to improve functional mobility. termite inspector goal 3: Pt will perform TUG in </= 10 seconds to decrease fall risk.- progressing halfway goal 4: Pt will demonstrate ability to perform 5 sit to stands with hands on thighs to improve LE functional strength. Minutes Tracking: Time In: 1052 Time Out: 1155 Minutes: 63 Timed Code Treatment Minutes: 60 Minutes Darlin Ferrer PT, DPT Date: 01/06/2021 documented in this encounter [place] Phone: 12-24-2020 History of Present illness Narrative [facility] Outpatient Physical Therapy Daily Note Patient: Ever Palmer : 1940 CSN #: [id number] Referring Practitioner: Molina Ramos DO Referral Date [...] decrease stress on cervical spine - Met halfway goals Time Frame for termite inspector goals : 6 weeks halfway goal 1: Pt will be independent and compliant with HEP. halfway goal 2: Pt will improve L cervical rotation to be within 5* of R cervical rotation to improve functional mobility. halfway goal 3: Pt will perform TUG in </= 10 seconds to decrease fall risk. halfway goal 4: Pt will demonstrate ability to perform 5 sit to stands with hands on thighs to improve LE functional strength. Minutes Tracking: Time In: 1015 Time Out: 1117 Minutes: 62 Timed Code Treatment Minutes: 62 Minutes Delores Palma PT, DPT Date: 12/24/2020 documented in this encounter [place] Phone: 12-23-2020 History of Present illness Narrative [facility] Outpatient Physical Therapy Daily Note Patient: Ever Pamler : 1940 CSN #: [id number] Referring Practitioner: Molina Ramos DO Referral Date [...] strengthening to decrease stress on cervical spine. halfway goals Time Frame for termite inspector goals : 6 weeks termite inspector goal 1: Pt will be independent and compliant with HEP. halfway goal 2: Pt will improve L cervical rotation to be within 5* of R cervical rotation to improve functional mobility. termite inspector goal 3: Pt will perform TUG in </= 10 seconds to decrease fall risk. termite inspector goal 4: Pt will demonstrate ability to perform 5 sit to stands with hands on thighs to improve LE functional strength. Minutes Tracking: Time In: 1014 Time Out: 1115 Minutes: 61 Timed Code Treatment Minutes: 59 Minutes Quincy Kumar PTA Date: 12/23/2020 documented in this encounter [facility] Phone: 12-17-2020 History of Present illness Narrative [facility] Outpatient Physical Therapy Daily Note Patient: Ever Palmer : 1940 CSN #: [id number] Referring Practitioner: Molina Ramos DO Referral Date [...] strengthening to decrease stress on cervical spine. termite inspector goals Time Frame for halfway goals : 6 weeks termite inspector goal 1: Pt will be independent and compliant with HEP. halfway goal 2: Pt will improve L cervical rotation to be within 5* of R cervical rotation to improve functional mobility. termite inspector goal 3: Pt will perform TUG in </= 10 seconds to decrease fall risk. termite inspector goal 4: Pt will demonstrate ability to perform 5 sit to stands with hands on thighs to improve LE functional strength. 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 Speech Language Pathology Facility/Department: [address] Initial Speech/Language/Cognitive Assessment NAME: Ever Palmer [...] continued therapy at this time. 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 Care of the catheter site For [...] Where can you learn more? Go to [email or web address] Viewing and sign in to your Zoopla account. Enter O249 in the Search Health Information box to learn more about Brain Angiogram: What to Expect at Home. If you do not have an account, please click on the Sign Up Now link. Current as of: December 13, 2019 Content Version: 12. [employer]. Care instructions adapted under license by [employer] If you have questions about a medical condition or this instruction, always ask your healthcare professional. [employer] disclaims any warranty or liability for your use of this information. Learning About Thrombolytic Treatment for Stroke What is thrombolytic treatment? Thrombolytics are medicines that dissolve blood clots. Most strokes are caused by a blood clot. This kind of stroke is called an ischemic (say hus-LJX-bjxy ) stroke. For an ischemic stroke, this [...] Where can you learn more? Go to [email or web address] and sign in to your Zoopla account. Enter E575 in the Search Health Information box to learn more about Learning About Thrombolytic Treatment for Stroke. If you do not have an account, please click on the Sign Up Now link. Current as of: October 09, 2019 Content Version: 12.9 [employer]. Care instructions adapted under license by [employer]. If you have questions about a medical condition or this instruction, always ask your healthcare professional. [employer] disclaims any warranty or liability for your use of this information. documented in this encounter [employer] Work Phone: 09-03-2020 Hospital Discharge instructions Chandrika [...] your doctor if you can take an crcg-trb-ooszaiq medicine. Care of the catheter site For [...] Where can you learn more? Go to [email or web address] and sign in to your Zoopla account. Enter O249 in the Search Health Information box to learn more about Brain Angiogram: What to Expect at Home. If you do not have an account, please click on the Sign Up Now link. Current as of: December 13, 2019 Content Version: 01.16 [employer]. Care instructions adapted under license by [employer]. If you have questions about a medical condition or this instruction, always ask your healthcare professional. [employer] disclaims any warranty or liability for your use of this information. Learning About Thrombolytic Treatment for Stroke What is thrombolytic treatment? Thrombolytics are medicines that dissolve blood clots. Most strokes are caused by a blood clot. This kind of stroke is called an ischemic (say iym-UML-hqrr ) stroke. For an ischemic stroke, this [...] Where can you learn more? Go to [email or web address] and sign in to your Zoopla account. Enter E575 in the Search Health Information box to learn more about Learning About Thrombolytic Treatment for Stroke. If you do not have an account, please click on the Sign Up Now link. Current as of: October 09, 2019 Content Version: 12.9 [employer]. Care instructions adapted under license by [employer]. If you have questions about a medical condition or this instruction, always ask your healthcare professional. [employer] disclaims any warranty or liability for your use of this information. documented in this encounter [facility] Phone: 09-02-2020 History of Present illness Narrative Patient admitted, consent signed and questions answered. Patient ready for procedure. Call light to reach with side rails up 2 of 2.Family at bedside with patient. documented in this encounter [facility] Phone: Evaluation note Diagnosis Nausea vomiting and diarrhea- Primary Nausea with vomiting Other complicated headache syndrome Dehydration documented in this encounter [place] Phone: [email or web address] note* Diagnosis Altered mental status, unspecified altered mental status type- Primary Stroke-like symptoms Other symptoms involving nervous and musculoskeletal systems Received intravenous tissue plasminogen activator (tPA) in emergency department documented in this encounter [facility] Phone: evaluation note* Diagnosis Cerebral aneurysm Cerebral aneurysm, nonruptured TGA (transient global amnesia) Transient global amnesia documented in this encounter [place] Phone: evaljrfxmz note* Diagnosis Left leg swelling documented in this encounter [place] Phone: evalybwdab note* Diagnosis Dysarthria- Primary Acute cystitis without hematuria Acute cystitis documented in this encounter [employer] Phone: evaluation note* Diagnosis Breast cancer screening by mammogram documented in this encounter [employer] Phone: evaluation note* Diagnosis Pain Generalized pain Swelling Edema documented in this encounter [facility] Phone: evaluation note* Diagnosis Elevated blood pressure reading- Primary Elevated blood pressure reading without diagnosis of hypertension documented in this encounter [facility] Phone: evaluation note* Diagnosis Strain of lumbar region, initial encounter- Primary documented in this encounter [facility] note* Diagnosis Somatic dysfunction of lumbar region Nonallopathic lesion of lumbar region, not elsewhere classified Lumbar radiculopathy Thoracic or lumbosacral neuritis or radiculitis, unspecified documented in this encounter [facility] note* Diagnosis Altered mental status, unspecified altered mental status type- Primary Abnormal CT scan Other nonspecific (abnormal) findings on radiological and other examinations of body structure Urinary tract infection without hematuria, site unspecified documented in this encounter [facility] Discharge instructions* Attachments The following attachments cannot be sent through Care Everywhere. * Dehydration (Spanish) * Nausea and Vomiting (Spanish) [facility] [place] [facility] Phone: Reason for Referral Status Reason Specialty Diagnoses / Procedures Referre d By Contact Referred To Contact Open EKG Diagnoses TIA (transient ischemic attack) Procedures [facility] Continuous Cardiac Event Monitor Eunice Guerra APRN - PREFITTER DOORS [address] [place] [address] Mthz Ekg [address] [place] [address] Status Reason Specialty Diagnoses / Procedures Referre d By Contact Referred To Contact Closed Radiology Diagnoses Cerebral aneurysm Procedures IR ANGIOGRAM CAROTID CEREBRAL BILATERAL Kristina Lomax MD [address] [facility] [address] [place] [address] Specialty Diagnoses / Procedures Referred By Contac t Referred To Contact Radiology Diagnoses Left leg swelling Procedures VL DUP LOWER EXTREMITY VENOUS LEFT Alissa Marx MD [address] [place] [address] [place] [address] Referral ID Status Reason Start Date Expiration Date Visits Re quested Visits Authorized [id number] Open 03/03/2021 03/03/2022 1 1 Specialty Diagnoses / Procedures Referred By Contac t Referred To Contact Diagnoses Dysarthria Procedures Echo 2d w doppler w color w contrast Eliecer Burris MD [address] [place] [address] Referral ID Status Reason Start Date Expiration Date Visits Re quested Visits Authorized [id number] Open 10/06/2021 10/06/2022 1 1 Specialty Diagnoses / Procedures Referred By Contac t Referred To Contact Radiology Diagnoses Breast cancer screening by mammogram Procedures ALMA ESME DIGITAL SCREEN SELF REFERRAL W OR WO CAD BILATERAL Molina Ramos DO [address] [place] [address] Referral ID Status Reason Start Date Expiration Date Visits Re quested Visits Authorized [id number] Closed 10/10/2021 10/10/2022 1 1 Specialty Diagnoses / Procedures Referred By Contac t Referred To Contact Radiology Diagnoses Somatic dysfunction of lumbar region Lumbar radiculopathy Procedures CT LUMBAR SPINE WO CONTRAST Sharath Garcia DC [address] [place] [address] Referral ID Status Reason Start Date Expiration Date V isits Requested Visits Authorized [id number] Not Required - RTA 02/15/2024 02/14/2025 1 1 Hospital Course * Eunice Guerra, ENZO - PREFITTER DOORS - 04/19/2020 12:00 PM EST Discharge Summary [...] 04/17/2020 2d [facility] Result Date: 04/18/2020 [facility] Transthoracic Echocardiography Report (TTE) Patient Name SPENCER Date of Study 04/18/2020 EVER Mckay Date of 1940 Gender Female Age 79 year(s) Race Room Number 0315 Height: 63 inch, 160.02 cm Corporate ID [id number] Weight: 163 pounds, 73.9 kg # Patient [id number] BSA: 1.77 m^2 BMI: 28.87 # kg/m^2 MR # [id number] Group Account Director Rylee Verma Interpreting Physician Alissa Marx Fellow Referring Nurse Practitioner Interpreting Referring Physician Alissa Marx Fellow Type of Study TTE procedure:2D Echocardiogram, Bubble Study. Procedure Date Date: 04/18/2020 Start: 02:58 PM Study Location: [facility] History / Tech. Comments: TIA, Bubble study [...] Discharge Medications: Ever Palmer Home Medication Instructions ANITA:[id number] Printed on:04/19/20 5811 Medication Information amLODIPine (NORVASC) 5 MG tablet [...] applicable) ELIZABETH/ARB in CHF: NA Statin in PA: NA ASA in PA: NA Statin in CVA: NA Antiplatelet in CVA: NA Total time spent on discharge services: 35 minutes Including the following activities: Evaluation and Management of patient Discussion with patient and/or surrogate about current care plan Coordination with Case Management and/or Automation Analyst Coordination of care with Consultants (if applicable) Coordination of care with Receiving Facility Physician (if applicable) Completion of DME forms (if applicable) Preparation of Discharge Summary Preparation of Medication Reconciliation Preparation of Discharge Prescriptions Signed: Eunice Guerra APRN, BLADE OPERATOR-C 04/19/2020, 12:09 PM Associated attestation - Marcelino Clifford MD - 04/19/2020 12:57 PM EST Marcelino Clifford M.D. Discharge Summary Attestation 04/19/20 I personally evaluated and examined the patient [id number] in conjunction with the PA/BLADE OPERATOR and agree with the management and dispostition of the patient. Please see the PA/BLADE OPERATOR's note for full details.My eason findings are: [...] care plan Coordination with Case Management and/or Automation Analyst Coordination of care with Consultants (if applicable) Coordination of care with Receiving Facility Physician (if applicable) Completion of DME forms (if applicable) Preparation of Discharge Summary Preparation of Medication Reconciliation Preparation of Discharge Prescriptions Marcelino Clifford M.D. 04/19/2020 12:57 PM * Eunice Guerra APRN - PREFITTER DOORS - 04/18/2020 6:33 PM EST Discharge Summary Ever Davenportcollette : 1940 Admit date: 04/17/2020 Discharge date: [...] 04/17/2020 [facility] Result Date: 04/18/2020 [facility] Transthoracic Echocardiography Report (TTE) Patient Name SPENCER Date of Study 04/18/2020 EVER A Date of 1940 Gender Female Age 79 year(s) Race Room Number 0315 Height: 63 inch, 160.02 cm Corporate ID [id number] Weight: 163 pounds, 73.9 kg # Patient [id number] BSA: 1.77 m^2 BMI: 28.87 # kg/m^2 MR # [id number] Group Account Director Rylee Verma Interpreting Physician Alissa Marx Fellow Referring Nurse Practitioner Interpreting Referring Physician Alissa Marx Fellow Type of Study TTE procedure:2D Echocardiogram, Bubble Study. Procedure Date Date: 04/18/2020 Start: 02:58 PM Study Location: [facility] History / Tech. Comments: TIA, Bubble study [...] Discharge Medications: Ever Palmer Home Medication Instructions ANITA:[id number] Printed on:04/18/20 4809 Medication Information aspirin 81 MG tablet Take [...] applicable) ELIZABETH/ARB in CHF: NA Statin in PA: NA ASA in PA: NA Statin in CVA: NA Antiplatelet in CVA: NA Total time spent on discharge services: 35 minutes Including the following activities: Evaluation and Management of patient Discussion with patient and/or surrogate about current care plan Coordination with Case Management and/or Automation Analyst Coordination of care with Consultants (if applicable) Coordination of care with Receiving Facility Physician (if applicable) Completion of DME forms (if applicable) Preparation of Discharge Summary Preparation of Medication Reconciliation Preparation of Discharge Prescriptions Signed: Eunice Guerra APRN, BLADE OPERATOR-C 04/18/2020, 6:33 PM Associated attestation - Marcelino Clifford MD - 04/18/2020 7:30 PM EST Marcelino Clifford M.D. Discharge Summary Attestation 04/18/20 I personally evaluated and examined the patient [id number] in conjunction with the PA/BLADE OPERATOR and agree with the management and dispostition of the patient. Please see the PA/BLADE OPERATOR's note for full details.My eason findings are: [...] care plan Coordination with Case Management and/or Automation Analyst Coordination of care with Consultants (if applicable) [...] your doctor if you can take an ipyi-msf-gcxwrgd medicine. If you think your pain medicine [...] or uneven pulse. After calling 911, the concrete finishing machine operator may tell you to chew [...] Where can you learn more? Go to [email or web address] and sign in to your MyChart account. Enter G050 in the Search Health Information box to learn more about Sedation for a Medical Procedure: Care Instructions. If you do not have an account, please click on the Sign Up Now link. [employer]. Care instructions adapted under license by [employer]. This care instruction is for use with your licensed healthcare professional. If you have questions about amedical condition or this instruction, always ask your healthcare professional. [employer] disclaims any warranty or liability for your use of this information. Content Version: 10.6.097819; Current as of: October 17, 2013 * Attachments The following attachments cannot be sent through Care Everywhere. * TIA (Transient Ischemic Attack) (Spanish) documented in this encounter* Instructions* Luis Enrique [...] sent through Care Everywhere. * Diet: DASH (Spanish) * Hypertension: General Info (Spanish) documented in this encounter History of Present Illness * Emi Avitia RN - 04/19/2020 12:55 PM EST Discharge instructions reviewed at this time. * Holly Rodriguez - 04/19/2020 12:47 PM EST Patient instructed on extended monitoring coordinator indications and use. Diary sent with patient. [...] CAM to be placed Eunice Guerra APRN, NP-C Associated attestation - Marcelino Clifford MD - 04/19/2020 12:56 PM EST Marcelino Clifford M.D. PA / BLADE OPERATOR Attestation Note I personally evaluated and examined the patient [id number] in conjunction with the PA/BLADE OPERATOR and agree with the management and dispostition of the patient. Please see the PA/BLADE OPERATOR's note for full details.My eason findings are: [...] the assessment and plan as outlined by PA/BLADE OPERATOR below TIA (transient ischemic attack) Echo with [...] - 04/18/2020 8:46 PM EST Call from order puller wanting to cancel patient discharge and plan for ALEKSANDRA tomorrow. is to callHolvenus and have her come talk to patient [...] At this time patient IV removed to [facility] without complications. Patient was given tylenol [...] lives with her in her home in [place]. Pt states that she uses no [facility] or community services. 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 Pt drives and is able to get [...] time. SWwill remain available as needed. Vicky GU RECHARGER 04/18/2020 * Neela Dunn, OT - 04/18/2020 [...] / Caregiver Present: No Referring Practitioner: Dr. 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 Objective Vision: Impaired Vision Exceptions: [...] AM-PAC Inpatient Daily Activity Raw Score: 21 (04/18/20 1006) AM-PAC Inpatient ADL T-Scale Score : 44.27 (04/18/20 1006) ADL Inpatient CMS 0-100% Score: 32.79 (04/18/20 1006) ADL Inpatient CMS G-Code Modifier : CJ (04/18/20 1006) Goals Short term goals Time Frame for [...] 9:19 AM EST Speech Language Pathology Facility/Department: [facility] Initial Speech/Language/Cognitive Assessment NAME: Ever [...] TIA (Transient Ischemic Attack) G45.9 Recommendations: Requires HAND CANDY DIPPER Intervention: No Duration/Frequency of Treatment: No further [...] on assessment and results. Manuel Will M.A., CCC-HAND CANDY DIPPER 04/18/2020 9:19 AM * Reno Gaffney RD, SAURABH - 04/18/2020 8:31 AM EST Nutrition Assessment Type and Reason for Visit: Initial Nutrition Recommendations/Plan: Encourage healthier food choices Nutrition Assessment: Altered food and nutrition lab values r/t endocrine dysfunction, AEB some hypoglycemia with diabetes dx (on metformin captain assistant). 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 She can identify that those foods may [...] Discharge Planning: Too soon to determine Contact: [id number] * Tia Krueger, PT - 04/18/2020 8:11 AM EST Physical Therapy Facility/Department: [facility] Initial Assessment NAME: Ever Palmer : [...] Krueger PT * Eunice Guerra APRN - PREFITTER DOORS - 04/18/2020 7:42 AM EST Progress Note [...] plan: Home later today Eunice Guerra APRN, BLADE OPERATOR-C Associated attestation - Marcelino Clifford MD - 04/18/2020 5:38 PM EST Marcelino Clifford M.D. PA / BLADE OPERATOR Attestation Note I personally evaluated and examined the patient [id number] in conjunction with the PA/BLADE OPERATOR and agree with the management and dispostition of the patient. Please see the PA/BLADE OPERATOR's note for full details.My eason findings are: [...] Intake/Output Summary (Last 24 hours) at 04/18/2020 0411 Last data filed at 04/18/2020 1027 Gross [...] the assessment and plan as outlined by PA/BLADE OPERATOR below TIA (transient ischemic attack) Echo with [...] FoundDocuments on File Type Date Recorded Patient Developer Designer Expl anation ACP-Advance Directive ACP-Power of Inpatient Pharmacist Latest Code Status on File Code Status Date Activated Date Inactivated Comments Full Code 04/17/2020 8:35 PM Full Code 12/20/2017 2:38 PM 12/20/2017 5:29 PM Full Code 12/20/2017 12:46 PM 12/20/2017 2:38 PM Documents on File Type Date Recorded Patient Developer Designer Expl anation ACP-Advance Directive ACP-Power of Inpatient Pharmacist Latest Code Status on File Code Status [...] Documents on File Type Date Recorded Patient Developer Designer Expl anation ACP-Do Not Resuscitate 04/05/2023 1:36 [...] Name Relationship Healthcare Agent Relationship Communication Jose Orozco Spencer Spouse Primary Decision Maker Nely Landers Secondary Decision Maker Date Activated Date Inactivated [...] Jose Palmer Spouse Primary Decision Maker Nely Brjosener Grandchild Secondary Decision Maker Healthcare Agents on File Name Relationship Healthcare Agent Relationship Communication Jose Palmer Spouse Primary Decision Maker Nely Brickner Grandchild Secondary Decision Maker Healthcare Agents on File Name Relationship Healthcare Agent Relationship Communication Jose Orozco Ethelcollette Spouse Primary Decision Maker Nely Bardales Grandchild Secondary Decision Maker Healthcare Agents on File Name Relationship Healthcare Agent Relationship Communication Jose Orozco Ethelcollette Spouse Primary Decision Maker Nely Bardales Grandchild Secondary Decision Maker Documents on File Type Date Recorded Patient Developer Designer Expl anation ACP-Do Not Resuscitate 04/05/2023 1:36 [...] Name Relationship Healthcare Agent Relationship Communication Jose Ernesto Spencer Spouse Primary Decision Maker Nely Bardales Grandchild Secondary Decision Maker Healthcare Agents on File Name Relationship Healthcare Agent Relationship Communication Jose Orozco Ethelcollette Spouse Primary Decision Maker Nely Bardales Grandchild Secondary Decision Maker Healthcare Agents on File Name Relationship Healthcare Agent Relationship Communication Jose Ernesto Spencer Spouse Primary Decision Maker Nely Bardales Grandchild Secondary Decision Maker Summary Purpose Family History No Family History Records FoundNo Family History Records FoundNo Family History Records [...] CAROTID CEREBRAL BILATERAL Kristina Lomax MD [address] [place] [address] [facility] [address] [place] [address] Specialty Diagnoses / Procedures Referred By Lorettaac t Referred To Contact Radiology Diagnoses Left leg swelling Procedures VL DUP LOWER EXTREMITY VENOUS LEFT Alissa Marx MD [address] [place] [phone] Referral ID Status Reason Start Date Expiration Date Visits Re quested Visits Authorized [id number] Open 03/03/2021 03/03/2022 1 1 Reason Comments [...] REFERRAL W OR WO CAD BILATERAL Molina Ramos L, DO [address] [place] [address] Referral ID Status Reason Start Date Expiration Date Visits Re quested Visits Authorized [id number] Closed 10/10/2021 10/10/2022 1 1 Reason Comments Other Sent by foot For suspected stroke due to high BP. [...] Adrián t Referred To Contact Radiology Diagnoses Somatic dysfunction of lumbar region Lumbar radiculopathy Procedures CT LUMBAR SPINE WO CONTRAST Sharath Garcia DC [address] [place] [address] Referral ID Status Reason Start Date Expiration Date V isits Requested Visits Authorized [id number] Not Required - RTA 02/15/2024 02/14/2025 1 1 Reason Comments Aphasia Pt reports p t with slurred speech onset 0700 this morning. Pt states she was unable to figure out the telephone this morning. Ordered Prescriptions (unrec ognized section and content) [...] Amount: 4 tablets 12 tablet 01/21/2024 01/24/2024 Prescription Sig Dispensed Refills Start Date End Da te cephALEXin (KEFLEX) 500 MG capsule Take 1 capsule by mouth 3 times daily for 7 days 21 capsule 03/26/2024 04/02/2024 Scheduled Active and Recently Administ ered Medications [...] dose 1408 (New Bag - Provider: Tia Madrid RN)1508 (Stopped - Provider: Tia Madrid RN) [...] Oral, NIGHTLY, First dose on Wed09/02/20 at 2099 2025 (Not Given - Provider: Caitlyn Larson RN - Reason: Other - Comment: pt lethargic) 2016 (Given - Provider: Vickie Byrne RN) 2099 (Due) busPIRone (BUSPAR) tablet 15 mg 15 mg, Oral, 2 TIMES DAILY, First dose on Wed09/02/20 at 1999, This 15 mg tablet can be split into thirds (5 mg) or halves (7.5 mg) based on the ordered dose. 2025 (Not Given - Provider: Caitlyn Larson RN - Reason: Other - Comment: pt lethargic) 857 (Given - Provider: Tia Madrid RN)2016 (Given - Provider: Vickie Byrne RN) 0925 (Given - Provider: Yordy Andrea RN)1999 (Due) clopidogrel (PLAVIX) tablet 75 mg 75 mg, Oral, DAILY, First dose on Wed09/03/20 at 0900 1408 (Held by provider - Provider: Dwight Jackson RN - Reason: Other) 0900 (Automatically Held)1551 (Unheld by provider - Provider: King Monteiro MD) 0925 (Given - Provider: Yordy Andrea RN) gabapentin (NEURONTIN) capsule 100 mg 100 mg, Oral, NIGHTLY, First dose on Wed09/02/20 at 2099 2026 (Not Given - Provider: Caitlyn Larson RN - Reason: Other - Comment: pt lethargic) 2016 (Given - Provider: Vickie Bynre RN) 2099 (Due) haloperidol lactate (HALDOL) injection 5 mg [...] Reason: Other) 0858 (Given - Provider: Tia Madrid, RAMONE) levETIRAcetam (KEPPRA) 1000 mg/100 mL IVPB (COMPLETED) 1,000 mg, Intravenous, ONCE, 1 dose, On Wed09/02/20 at 1630 1600 (New Bag - Provider: Dwight Jackson, RN)1817 (Stopped - Provider: Dwight Jackson, RN) losartan (COZAAR) tablet 50 mg 50 mg, [...] 2026 (Given - Provider: Caitlyn Larson RN) 0910 (Not Given - Provider: Tia Madrid, RAMONE - Reason: IV Fluid Infusing)2020 (Given - Provider: Vickie Byrne RN) 0926 (Given - Provider: Yordy Andrea RN)2100 (Due) sodium chloride flush 0.9 % injection [...] 2026 (Given - Provider: Caitlyn Larson RN) 0910 (Not Given - Provider: Tia Madrid RN [...] Infection 1752 (Given - Provid er: Arianna Turner, RN) PRN Medication Order 10/03/2021 10/04/2021 10/05/2021 iopamidol (ISOVUE-370) 76 % injection 75 mL (COMPLETED) 75 mL, IntraVENous, IMG ONCE PRN, 1 dose, Starting on 10/05/21 at 1534, Until 10/05/21 at 1537, Other 1537 (Given - Provid er: Preethi Gamble) Scheduled Medication Order 10/19/2021 10/20/2021 10/21/2021 amLODIPine (NORVASC) tablet 5 mg (COMPLETED) 5 mg, Oral, ONCE, 1 dose, On Wed10/21/21 at 1700 1711 (Given - Provid er: Sara Mckoy, RAMONE) Scheduled Medication Order 01/19/2024 01/20/2024 01/21/2024 HYDROcodone-acetaminophen (NORCO) 5-325 MG per tablet 2 tablet (COMPLETED) 2 tablet, Oral, ONCE, 1 dose, On Wed01/21/24 at 1545, Maximum dose of acetaminophen is 4000 mg from all sources in 24 hours. 1559 (Given - Provid er: Ivonne Nash RN) Scheduled Medication Order 03/24/2024 03/25/2024 03/26/2024 cefTRIAXone (ROCEPHIN) 1,000 mg in sterile water 10 mL IV syringe (COMPLETED) 1,000 mg, IntraVENous, ONCE, On 03/26/24 at 1830, For 1 dose, Administer as slow IV Push over 5 mins Reconstitute 1 g vials with 9.6 mL of designated diluent to produce a 100 mg/mL solution. 1827 (Given - Provid er: Mary Luther, RAMONE) PRN Medication Order 03/24/2024 03/25/2024 03/26/2024 iopamidol (ISOVUE-370) 76 % injection 75 mL (COMPLETED) 75 mL, IntraVENous, IMG ONCE PRN, 1 dose, Starting on 03/26/24 at 1451, Until 03/26/24 at 1452, Other 1452 (Given - Provid er: Jeniffer Aden) Care Teams (unrecognized sec tion and content) Mill Hand Plate Mill Relationship Specialty Start Date End Date Molina Ramos, DO [address] [place] [address], [place] [phone] PCP - General 06/05/12 [employer] Relationship Specialty Start Date End Date Molina Ramos, DO [address] [place] [address], [place] [phone] PCP - General 06/05/12 [employer] Relationship Specialty Start Date End Date TaiwobridgettMolina, DO [address] [place] [address], [place] [phone] PCP - General 06/05/12 [employer] Relationship Specialty Start Date End Date TaiwobridgettMolina Goldy, DO [address] [place] [address], [place] [phone] PCP - General 06/05/12 [employer] Relationship Specialty Start Date End Date BernardoMolina Goldy, DO [address] [place] [address], [place] [phone] PCP - General 06/05/12 [employer] Relationship Specialty Start Date End Date BernardoMolina Goldy, DO [address] [place] [address], [place] [phone] PCP - General 06/05/12 [employer] Relationship Specialty Start Date End Date Molina Ramos, DO [address] [place] [address], [place] [phone] PCP - General 06/05/12 [employer] Relationship Specialty Start Date End Date Molina Rmaos, DO [address] [place] [address], [place] [address] PCP - General 06/05/12 [employer] Relationship Specialty Start Date End Date Molina Ramos, DO [address] [place] [address], [place] [address] PCP - General 06/05/12 [employer] Relationship Specialty Start Date End Date Molina Ramos DO [facility] [place] [address] PCP - General 06/05/12 [employer] Relationship Specialty Start Date End Date Molina Ramos DO [address] [place] [phone] PCP - General 06/05/12 [employer] Relationship Specialty Start Date End Date Molina Ramos DO [address] [place] [phone] PCP - General 06/05/12 [employer] Relationship Specialty Start Date End Date Molina Ramos DO [address] [place] [phone] PCP - General 06/05/12 [employer] Relationship Specialty Start Date End Date Molina Ramos DO [address] [place] [phone] PCP - General 06/05/12 [employer] Relationship Specialty Start Date End Date Molina Ramos DO [address] [place] [phone] PCP - General 06/05/12 [employer] Relationship Specialty Start Date End Date Molina Ramos DO [address] [place] [phone] PCP - General 06/05/12 [employer] Relationship Specialty Start Date End Date Molina Ramos DO [address] [place] [phone] PCP - General 06/05/12 [employer] Relationship Specialty Start Date End Date Molina Ramos DO [address] [place] [phone] PCP - General 06/05/12 [employer] Relationship Specialty Start Date End Date Molina Ramos DO [address] [place] [phone] PCP - General 06/05/12 [employer] Relationship Specialty Start Date End Date Molina Ramos DO [address] [place] [phone] PCP - General 06/05/12 [employer] Relationship Specialty Start Date End Date Molina Ramos DO [address] [place] [phone] PCP - General 06/05/12 [employer] Relationship Specialty Start Date End Date Molina Ramos DO [address] [place] [phone] PCP - General 06/05/12 [employer] Relationship Specialty Start Date End Date Molina Ramos DO [address] [place] [phone] PCP - General 06/05/12 INFORMATION SOURCE (unrecogn ized section and content) DATE CREATED AUTHOR 03/04/2021 [facility] DATE CREATED AUTHOR AUTHOR'S ORGANIZ ATION 05/16/2024 [facility] Rosmery bustos DATE CREATED AUTHOR AUTHOR'S ORGANIZ ATION 06/14/2024 [facility] FOR RECORDS PERTAINING TO PATIENTS WHO ARE [...] BE BASED ON THE PRIMARY CLINICAL RECORDS. [facility]. provides no warranty or guarantee of the accuracy or completeness of information in this document.
--- NOTE | 2024-06-28 13:07 | PM.CN ---
Consult Note: HPI Data of Consult Patient: known to practice within the last 3 years Requesting Physician: Symone Bales NP Primary Care Provider: RICHIE RAMOS DO Family Provider: RICHIE RAMOS DO Consult Narrative Reason for consult: f/u Narrative: Danielle Ash an 83 year old female presents for evaluation of chronic low back pain. has failed to benefit from >6 weeks of PT/provider guided HEP, heat, ice, tylenol, NSAIDs. Prior imaging consistent with lumbar spondylosis, lumbar DDD, and lumbar stenosis. pt utilizes baclofen and tylenol with mild relief. recently underwent right L4-5 L5-S1 TFESI with >50% improvement in radicular pain and bilateral L4/5 L5/S1 facet medial branch RFA with >80% improvement ongoing. Pain in low back 0/10, however upper and middle back 7/10 increasing to 10/10 with dishes and activity. cc:: CC: Symone Bales NP [facility] Medical History (Updated 06/28/24 @ 13:08 by Symone Bales NP) Low back pain ?M54.50 - Low back pain, unspecified (ICD-10) Heartburn ?R12 - Heartburn (ICD-10) Acid reflux ?K21.9 - Gastro-esophageal reflux disease without esophagitis (ICD-10) Obesity ?E66.9 - Obesity, unspecified (ICD-10) Asthma ?J45.909 - Unspecified asthma, uncomplicated (ICD-10) Irregular heart beat ?I49.9 - Cardiac arrhythmia, unspecified (ICD-10) Hypertension ?I10 - Essential (primary) hypertension (ICD-10) Surgical History History of cholecystectomy ?Z90.49 - Acquired absence of other specified parts of digestive tract (ICD-10) H/O foot surgery ?Z98.890 - Other specified postprocedural states (ICD-10) H/O carpal tunnel repair ?Z98.890 - Other specified postprocedural states (ICD-10) H/O: hysterectomy ?Z90.710 - Acquired absence of both cervix and uterus (ICD-10) Meds Home Medications and Allergies Home Medications ?Medication ?Instructions ?Recorded ?Confirmed ?Type aspirin 81 mg capsule 81 mg PO DAILY 03/09/24 05/29/24 History atorvastatin 40 mg tablet 40 mg PO DAILY 03/09/24 05/29/24 History calcium 500 mg tablet mg 03/09/24 History cetirizine 5 mg tablet 5 mg PO BID PRN allergy symptoms 03/09/24 05/29/24 History cholecalciferol (vitamin D3) 50 2,000 unit PO DAILY 03/09/24 05/29/24 History mcg (2,000 unit) capsule magnesium 200 mg tablet 200 mg PO DAILY 03/09/24 05/29/24 History metformin 500 mg tablet 500 mg PO DAILY 03/09/24 05/29/24 History montelukast 10 mg tablet 10 mg PO DAILY 03/09/24 05/29/24 History (Singulair) spironolactone 25 mg tablet 25 mg PO BID 03/09/24 05/29/24 History diazepam 10 mg tablet (Valium) 10 mg PO ONCE 05/29/24 05/29/24 History Allergies Allergy/AdvReac Type Severity Reaction Status Date / Time morphine AdvReac Mild itch Verified 05/29/24 11:00 Exam Back & Pelvis Thoracic spine/upper back: ROM limited and pain with ROM; no thoracic spinal tenderness and no paraspinal muscle tenderness Lumbar spine/lower back: ROM limited and straight leg raise negative bilaterally; no pain with ROM Sacroiliac joints: SI joints normal Other: negative facet loading negative tenderness Extremity Common normals: normal to inspection and full ROM Assessment and Plan Assessment and Plan (1) Scoliosis of thoracolumbar spine: (2) Lumbar spondylosis: (3) Lumbar degenerative disc disease: (4) Thoracic spondylosis: Plan update thoracic xray encouraged core strengthening and posture training, notable diffuse thoracic pain zynex TLSO brace to be worn while performing activities of daily living, not to be worn more than 1 hour at a time as discussed encouraged continuation of HEP and core strengthening f/u 1 month
== END 2024-06-28 12:42 | disposition home or self-care (01) ==
LOC: PM 12:41
PROVIDERS: Family Provider Internal Medicine; PCP Internal Medicine; Visit Provider Nurse Practitioner
DX: M41.85 Other forms of scoliosis, thoracolumbar region (principal); M47.816 Spondylosis without myelopathy or radiculopathy, lumbar region; M51.369 Other intervertebral disc degeneration, lumbar region without mention of lumbar back pain or lower extremity pain; M47.814 Spondylosis without myelopathy or radiculopathy, thoracic region
CPT/HCPCS: G0463

== ENCOUNTER 2024-08-16 08:49 | Outpatient (OUT) | payer MEDICARE, SELFPAY ==
--- NOTE | 2024-08-16 09:02 | PM.CN ---
Consult Note: HPI Data of Consult Patient: known to practice within the last 3 years Consult date: 08/16/24 Requesting Physician: Symone Bales NP Primary Care Provider: RICHIE RAMOS DO Family Provider: RICHIE RAMOS DO Consult Narrative Reason for consult: f/u Narrative: Danielle Ash an 83 year old female presents for evaluation of chronic low back pain. has failed to benefit from >6 weeks of PT/provider guided HEP, heat, ice, tylenol, NSAIDs. Prior imaging consistent with lumbar spondylosis, lumbar DDD, and lumbar stenosis. pt utilizes baclofen and tylenol with mild relief. recently underwent right L4-5 L5-S1 TFESI with >50% improvement in radicular pain and bilateral L4/5 L5/S1 facet medial branch RFA with >80% improvement ongoing. Pain in low back 0/10, however upper and middle back 3-4/10 increasing to 10/10 with dishes and activity. cc:: CC: Symone Bales NP [facility] Medical History (Updated 06/28/24 @ 13:08 by Symone Bales NP) Low back pain ?M54.50 - Low back pain, unspecified (ICD-10) Heartburn ?R12 - Heartburn (ICD-10) Acid reflux ?K21.9 - Gastro-esophageal reflux disease without esophagitis (ICD-10) Obesity ?E66.9 - Obesity, unspecified (ICD-10) Asthma ?J45.909 - Unspecified asthma, uncomplicated (ICD-10) Irregular heart beat ?I49.9 - Cardiac arrhythmia, unspecified (ICD-10) Hypertension ?I10 - Essential (primary) hypertension (ICD-10) Surgical History History of cholecystectomy ?Z90.49 - Acquired absence of other specified parts of digestive tract (ICD-10) H/O foot surgery ?Z98.890 - Other specified postprocedural states (ICD-10) H/O carpal tunnel repair ?Z98.890 - Other specified postprocedural states (ICD-10) H/O: hysterectomy ?Z90.710 - Acquired absence of both cervix and uterus (ICD-10) Meds Home Medications and Allergies Home Medications ?Medication ?Instructions ?Recorded ?Confirmed ?Type aspirin 81 mg capsule 81 mg PO DAILY 03/09/24 05/29/24 History atorvastatin 40 mg tablet 40 mg PO DAILY 03/09/24 05/29/24 History calcium 500 mg tablet mg 03/09/24 History cetirizine 5 mg tablet 5 mg PO BID PRN allergy symptoms 03/09/24 05/29/24 History cholecalciferol (vitamin D3) 50 2,000 unit PO DAILY 03/09/24 05/29/24 History mcg (2,000 unit) capsule magnesium 200 mg tablet 200 mg PO DAILY 03/09/24 05/29/24 History metformin 500 mg tablet 500 mg PO DAILY 03/09/24 05/29/24 History montelukast 10 mg tablet 10 mg PO DAILY 03/09/24 05/29/24 History (Singulair) spironolactone 25 mg tablet 25 mg PO BID 03/09/24 05/29/24 History diazepam 10 mg tablet (Valium) 10 mg PO ONCE 05/29/24 05/29/24 History Allergies Allergy/AdvReac Type Severity Reaction Status Date / Time morphine AdvReac Mild itch Verified 05/29/24 11:00 Exam Constitutional Documenting provider has reviewed patient's vital signs: yes Common normals: no apparent distress, oriented x3, healthy appearing, alert and well nourished General appearance: cooperative HENMT Common normals: normocephalic, hearing grossly normal bilaterally and moist oral mucous membranes Head and scalp: normocephalic Eye Common normals: PERRL Pupil: PERRL Neck & C-Spine Common normals: full ROM General: normal visual inspection Chest Common normals: inspection of chest normal Respiratory Common normals: normal respiratory effort, no retractions and no use of accessory muscles Back & Pelvis Thoracic spine/upper back: ROM limited, pain with ROM and thoracic spinal tenderness T-spine tenderness location: T7, T8, T9, T10, T11 and T12; no paraspinal muscle tenderness Lumbar spine/lower back: ROM limited and straight leg raise negative bilaterally; no pain with ROM Sacroiliac joints: SI joints normal Other: positive facet loading and diffuse thoracic pain Extremity Common normals: normal to inspection and full ROM Neuro Common normals: oriented x3 Sensorium/orientation: alert Psych Common normals: mental status grossly normal, thought process normal, cooperative, affect normal, speech normal and activity/motor behavior normal Speech: normal speech Thought process: normal thought process Results Additional Findings Additional findings: If on a controlled substance or opioids, I have checked an [place]AR[place] report on this patient and there are no aberrancies noted in the prescribing history.??If on a controlled substance or opioid a drug screen was completed and reviewed within the last year, and if there has not been a drug screen completed we ordered one today to monitor higher risk, state monitored pain medication use. As part of providing excellent, safe, comprehensive care, the following was completed at our patient's visit: 1. A medication reconciliation and review to ensure accurate knowledge of current/active medications, including asking our patients to inform us about any [id number] medications or herbal remedies/nutritional supplements/alternative remedies. 2. A review to specifically ensure our patients have had annual screening for screening for depression, screening for tobacco use, and screening for unhealthy alcohol use. For concerning screenings had a discussion with the patient, provided patient education, and recommended follow-up with primary care provider when appropriate. If patient noted with a risk of falling, they received education on strength, gait, and balance training to prevent future risk of falling. Portions of this note may have been carried over from the previous visit and updated as appropriate. Please note this office utilizes paper charting in addition to the electronic medical record. A list of current medications, vitals, and PMH is available there as the clinical staff outside of myself do not have access to [employer] charting during the clinic day operations. As part of providing quality comprehensive care the current medications, vitals, and PMH were reviewed in the paper chart. Assessment and Plan Assessment and Plan (1) Thoracic spondylosis: Assessment and Plan: The Oswestry Disability Index was completed, and the patient scored a 22%.? The patient noted the following:?? moderate to severe pain impacting ADLs, standing, sitting, walking, sleeping, social life, and travel We discussed the risks and benefits of the procedure with the patient, and we are NOT planning on using sedation as outlined in the guidelines from Medicare unless there is a documented reason that sedation would be strongly recommended.?? ?The procedure will be completed with fluoroscopic guidance.? (2) Scoliosis of thoracolumbar spine: Assessment and Plan: encouraged TLSO bracing, will contact [facility] [place] to meet with pt. they are not sure how to apply the brace (3) Lumbar spondylosis: (4) Lumbar degenerative disc disease: Plan 83 year old female with chronic thoracic and lumbar pain secondary to degenerative changes unresponsive to > 6 weeks of HEP/PT, heat, ice, tylenol, motrin. pt has found significant benefit to lumbar interventional therapy. will trial bilateral T9-10 T11-12 MBB x2 in consideration of RFA for axial facet mediated pain. Pt and given information on [employer] spinal cord system to consider if she fails to benefit from interventional therapy, as disucssed with pt she has multilevel facet mediated pain but is high risk for surgery due to age and severe osteopenia. f/u after each MBB
== END 2024-08-16 08:50 | disposition home or self-care (01) ==
LOC: PM 08:50
PROVIDERS: Family Provider Internal Medicine; PCP Internal Medicine; Visit Provider Nurse Practitioner
DX: M47.814 Spondylosis without myelopathy or radiculopathy, thoracic region (principal); M41.85 Other forms of scoliosis, thoracolumbar region; M47.816 Spondylosis without myelopathy or radiculopathy, lumbar region; M51.369 Other intervertebral disc degeneration, lumbar region without mention of lumbar back pain or lower extremity pain
CPT/HCPCS: G0463

== ENCOUNTER 2024-09-18 10:12 | Day surgery (SDC) | payer MEDICARE, SELFPAY ==
--- OUTSIDE RECORDS SUMMARY | 2024-09-18 10:15 | XMS_ITS | Encounter Summary ---
Author Organization [facility] Address [address], [address] [place] [address] Care Team Providers Care Nuclear Powerplant Mechanic Helper Name Role Phone Molina Chang DO Primary Care Provider + [phone] Encounter Details Date Type Department Care Team (Late st Contact Info) Description 07/26/2024 Results Follow-Up [facility] C[facility] Part of [address] [phone] Apurva Vu, HUNTING SALES LEADER - CASE ASSEMBLER [address] [place] [id number] Social History Tobacco Use Types Packs/Day Years Used Date Smoking Tobacco: Never Smokeless Tobacco: Never Alcohol Use Standard Drinks/Week Comments No 0 (1 standard drink = 0.6 oz pur e alcohol) [facility] Utilities Answer Date Recorded In the past 12 months has [employer], gas, oil, or water company threatened to shut off services in your home? No 07/12/2024 AUDIT-C Answer Date Recorded Q1: How often do you have a drink containing alcohol? Never 07/12/2024 Q2: How many drinks containi ng alcohol do you have on a typical day when you are drinking? Patient does not drink Q3: How often do you have si x or more drinks on one occasion? Never 07/12/2024 PHQ-2 Answer Date Recorded PHQ-2 Score 2 05/11/2018 Hunger Vital Sign Answer Date Recorded Within the past 12 months, y ou worried that your food would run out before you got the money to buy more. Never true 07/13/19 25 Within the past 12 months, t he food you bought just didn't last and you didn't have money to get more. Never true 07/12/2024 PRAPARE - Transportation Answer Date Re corded In the past 12 months, has l ack of transportation kept you from medical appointments or from getting medications? No 05/2024 In the past 12 months, has l ack of transportation kept you from meetings, work, or from getting things needed for daily living? No 07/12/2024 Housing Stability Vital Sign Answer Alejandro e [...] place to sleep or slept in a [place] (including now)? No 04/04/2023 Housing Stability Vital Sign Answer Alejandro e Recorded In the last 12 months, was t here a time when you were not able to pay the mortgage or rent on time? No 07/12/2024 In the past 12 months, how m any times have you moved where you were living? 0 07/12/2024 At any time in the past [address] [facility], were you homeless or living in a [place] health [place] facility (including now)? No 07/12/2024 Interpersonal Safety ([facility] HRSN) Answer Date Recorded How often does [...] got the money to buy more. 1 07/12/2024 Within the past 12 months, t he food you bought just didn't last and you didn't have money to get more. 1 07/12/2024 Interpersonal Safety Domain Source: IP Abuse Scr eening Answer Date Recorded Physical abuse Denies 07/12/2024 Verbal abuse Denies 07/12/2024 Emotional abuse Denies 07/12/2024 Financial abuse Denies 07/12/2024 Sexual abuse Denies 07/12/2024 Comments No Sex and Gender Information Value Date Recorded Sex Assigned at Not on file Legal Sex Female 5:08 PM EST Gender Identity Not on file Sexual Orientation Not on file documented as of this encounter Plan of Treatment Upcoming Encounters Date Type Department Care Team (Late st Contact Info) Description 11/27/2024 11:20 AM EDT Office Visit [facility] NE[facility] Part of [address] [place] [address] Lorenzo Vang MD [address] [place] [address] [address] [place] [address] 3 month follow up; TIA 01/24/2025 10:20 AM EST Office Visit [facility] Part of [address] [phone] Alissa Marx MD [address] [place] [address] [place] [address] 6 month follow up documented as of this encounter Visit Diagnoses Not on filedocumented in this encounter Additional Health Concerns Assessment Noted Time A fall risk assessment has been complete d for the patient 01/26/2018 8:32 AM EST A Body Mass Index follow-up plan has been documented for the patient 03/03/2021 1:30 PM EST documented as of this encounter Care Teams Nuclear Powerplant Mechanic Helper Relationship Specialty Start Date End Date Molina Chang DO [address] [place] [phone] PCP - General 06/05/12 documented as of this encounter
--- OUTSIDE RECORDS SUMMARY | 2024-09-18 10:15 | XMS_ITS | Encounter Summary ---
Author Organization [facility] Address [address], [address] [place] [address] Care Team Providers Care Stringed Instrument Repairer Name Role Phone Molina Chang DO Primary Care Provider + [phone] Encounter Details Date Type Department Care Team (Late st Contact Info) Description 08/31/2024 Orders Only [facility] NE[facility] Part of [address] [place] [address] Molina Chang DO [address] [place] [phone] Social History Tobacco Use Types Packs/Day Years Used Date Smoking Tobacco: Never Smokeless Tobacco: Never Alcohol Use Standard Drinks/Week Comments No 0 (1 standard drink = 0.6 oz pur e alcohol) [facility] Utilities Answer Date Recorded In the past 12 months has [employer], gas, oil, or water company threatened [...] place to sleep or slept in a chcf (including now)? No 04/04/2023 Housing Stability Vital Sign Answer Alejandro e Recorded In the last 12 months, was t here a time when you were not able to pay the mortgage or rent on time? No 07/12/2024 In the past 12 months, how m any times have you moved where you were living? 0 07/12/2024 At any time in the past 12 m [facility], were you homeless or living in a chcf (including now)? No 07/12/2024 Interpersonal Safety ([facility] HRSN) Answer Date Recorded How often does anyone, petr lantigua family and friends, physically hurt you? Never 04/04/2023 How often does anyone, incljohny lantigua family and friends, scream or curse at you? Not on file 04/04/2023 How often does anyone, petr lantigua family and friends, insult or talk down to you? Not on file 04/04/2023 How often does anyone, incljohny lantigua family and friends, threaten you with [...] Description 11/27/2024 11:20 AM EDT Office Visit [facility] NE[facility] Part [address] [place] [address] Lorenzo Vang MD [address] [place] [address] [address] [place] [address] 3 month follow up; TIA 01/24/2025 10:20 AM EST Office Visit [facility] C[facility] Part [address] [phone] Alissa Marx MD [address] [place] [address] [place] [address] 6 month follow up documented as of this encounter Procedures Procedure Name Priority Date/Time Associated Diagnosis Comments VL DUP CAROTID BILATERAL Routine 01/26/2024 9:35 AM EST documented in this encounter Results * VL DUP CAROTID BILATERAL (01/26/2024 9:35 AM EST) Anatomical Region Laterality Modality Vascular, Head Other us Molina Chang DO IMG VASCULAR ORDERABLES Roya l Result documented in this encounter Visit Diagnoses Not on filedocumented in this encounter Additional Health Concerns Assessment Noted Time A fall risk assessment has been complete d for the patient 01/26/2018 8:32 AM EST A Body Mass Index follow-up plan has been documented for the patient 03/03/2021 1:30 PM EST documented as of this encounter Care Teams Stringed Instrument Repairer Relationship Specialty Start Date End Date Molina Chang DO [address] [place] [address] PCP - General 06/05/12 documented as of this encounter
--- OUTSIDE RECORDS SUMMARY | 2024-09-18 10:15 | XMS_ITS | Clinical Summary ---
Author Organization [employer] Address [id number] [address] [place] [address] Care Team Providers Care College Basketball Coach Name Role Phone Bernardo Dillon DO, Charles L Primary Care Provider Allergies Active Allergy Reactions Criticality Noted Date Comments Morphine Itching 08/17/2016 Medications topiramate (TOPAMAX) 25 mg tablet Take 25 mg by mouth daily. Active baclofen (LIORESAL) 10 mg tablet Take 10 mg by mouth 4 (four) times a day. prn Active metFORMIN (GLUMETZA) 500 MG (MOD) 24 hr tablet Take 500 mg by mouth daily with breakfast. Active gabapentin (NEURONTIN) 400 mg capsule Take 400 mg by mouth daily. Active lactulose (CEPHULAC) 10 gram packet Take 10 g by mouth 2 (two) times a day. Active beclomethasone (QVAR) 40 mcg/actuation inhaler Inhale 2 puffs 2 (two) times a day. Active GLUCOSAMINE/CHO NDR MCKOY A SOD (OSTEO BI-FLEX ORAL) Take by mouth. Activ e calcium carbonate (OS-FERNANDO) 600 mg (1,500 mg) tablet Take 600 mg by mouth daily. Active aspirin 81 mg Take 81 mg by mouth daily. Active potassium chloride (KLOR-CON) 8 MEQ CR tablet Take 99 mEq by mouth daily. Active lysine 1,000 mg tablet Take 1,000 mg by mouth daily. Active neomycin-polymy abdirahman-HC (CORTISPORIN) 3.5-10,000-1 mg/mL-unit/mL-% otic suspensionIndic ations:Bilatera l impacted cerumen Applied 3-4 drops to the affected ear(s) 3 times daily. 10 mL 8 Active Additional Information Patient not taking.Reported on 01/19/2022 neomycin-polymy abdirahman-dexamethaso ne (MAXITROL) 3.5mg/mL-10,000 unit/mL-0.1 % ophthalmic suspensionIndic ations:Marthaa l impacted cerumen Instill 3-4 gtt in the affected ear(s) TID for 10 days 5 mL 9 Active Additional Information Patient not taking.Reported on 01/19/2022 Active Problems Problem Noted Date Diagnosed Date Tinnitus of right ear 01/19/2022 Bilateral impacted cerumen 01/17/2018 Resolved Problems Problem Noted Date Diagnosed Date Resolved Date Nuclear sclerotic cataract of left eye 08/18/2016 01/17/2018 Family History Medical History Relation Name Comments No Known Problems Father No Known Problems Mother Relation Name Status Comments Father Mother Social History Tobacco Use Types Packs/Day Years Used Date Smoking Tobacco: Never Smokeless Tobacco: Never Tobacco Cessation:Counseling Given: Not Answered Alcohol Use Standard Drinks/Week Comments No 0 (1 standard drink = 0.6 oz pur e alcohol) Childcare Answer Date Recorded Childcare Unknown 07/20/2018 Employment Answer Date Recorded Employment Unknown 07/20/2018 Hunger Screening Answer Date Recorded Within the past 12 months we worried whether our food would run out before we got money to buy more. Never True 01/19/2022 Within the past 12 months th e food we bought just didn't last and we didn't have money to get more. Never True 01/19/2022 Purpose - Life Answer Date Recorded Purpose and direction in life Unknown Comments No Sex and Gender Information Value Date Recorded Sex Assigned at Not on file Legal Sex Female 11:52 AM EDT Gender Identity Not on file Sexual Orientation Not on file Last Filed Vital Signs Vital Sign Reading Time Taken Comments Blood Pressure 122/76 06/19/2019 2:00 PM EDT Pulse 54 10/10/2016 9:33 PM EDT Temperature 36.6 C (97.9 F) 10/10/2016 9:33 PM EDT Respiratory Rate 18 10/10/2016 9:33 PM EDT Oxygen Saturation 100% 10/10/2016 9:33 PM EDT Inhaled Oxygen Concentration - - Weight 83 kg (183 lb) 01/19/2022 2:52 PM EST Height 167.6 cm (5' 6 ) 01/19/2022 2:52 PM EST Body Mass Index 29.54 01/19/2022 2:52 PM EST Plan of Treatment Health Maintenance Due Date Last Done Comments Depression Screening 1952 Tobacco Screening 1952 DTaP,Tdap and Td Vaccines (1 - Tdap) 1960 Fall Risk Screening 2006 Zoster (Shingles) Vaccine (2 of 3) 03/23/20172016 COVID-19 Vaccine (4 - 2023-2 5 season) 2023 02/03/2021, 06/10/2020, 05/13/2020 Influenza Vaccine 10/09/2024 11/26/2017 Medical Devices Implanted Type Area Environmental Health And Safety Leader Device Identifier Shelf Expiration Date Model / Serial / Lot Lens Mx60 20.5 - [id number] - [id number] Implanted:Qty: 1 on 08/24/2016 by Francisco Javier Paul MD at [facility] Lens Left: Eye [employer] 05/09/2019 MX60 23.5 / [id number] / [id number] Description:MX60 23.5D perM. [place] Insurance [employer] MEDICARE Care Teams College Basketball Coach Relationship Specialty Start Date End Date Molina Chang Jr., DO [address] [place] [id number] PCP - General Internal Medicine 08/24/16
--- OUTSIDE RECORDS SUMMARY | 2024-09-18 10:15 | XMS_ITS | Clinical Summary ---
Author Organization [facility] Address [address], [address] [place] [address] Care Team Providers Care Supervisor Crack Off Name Role Phone Molina Chang Primary Care Provider Allergies Active Allergy Reactions Criticality Noted Date Comments Morphine 06/05/2012 Medications metFORMIN (GLUCOPHAGE) 500 MG tablet Take 1 tablet by mouth nightly Active aspirin 81 MG tablet Take 1 tablet by mouth daily Active atorvastatin (LIPITOR) 40 MG tablet Take 1 tablet by mouth daily 30 tablet 3 1 Active NONFORMULARY [employer] [facility] Vitamin daily Active montelukast (SINGULAIR) 10 MG tablet Take 1 tablet by mouth nightly at bedtime 4 Active spironolactone (ALDACTONE) 25 MG tablet Take 1 tablet by mouth 2 times daily 4 Active polyethylene glycol (MIRALAX) 17 g PACK packet Take 17 g by mouth daily Active furosemide (LASIX) 20 MG tablet Take 1 tablet every other day for 1 week then call office for updated weight. 4 tablet 5 Active Additional Information Patient not taking.Reported on 08/28/2024 buPROPion (WELLBUTRIN XL) 150 MG extended release tablet Take 1 tablet by mouth every morning 5 Active gabapentin (NEURONTIN) 100 MG capsule Take 1 capsule by mouth 3 times daily for 30 days. Intended supply: 90 days 90 capsule 2 5 09/28/19 Active cyclobenzaprine (FLEXERIL) 10 MG tablet Take 1 tablet by mouth 3 times daily as needed for Muscle spasms 21 tablet 5 08/29/19 Active Problems Problem Noted Date Diagnosed Date Complicated UTI (urinary tract infection) 2024 Chest wall pain 04/04/2023 Type 2 diabetes mellitus, wi thout long-term current use of insulin 04/04/2023 Hypertension 04/04/2023 Angina, class IV 04/04/2023 PSVT (paroxysmal supraventricular tachycardia) 0 04/04/2023 History of TIA (transient ischemic attack) 04/04 Stroke-like symptoms 09/02/2020 TIA (transient ischemic attack) 04/17/2020 Cerebral aneurysm Altered mental status Received intravenous tissue plasminogen activator (tPA) in emergency department Acute encephalopathy Resolved Problems Problem Noted Date Diagnosed Date Resolved Date TGA (transient global amnesia) 09/02/2020 07/14/2024 Age-related nuclear cataract of right eye 12/20/2017 12/20/2017 Encounters Date Type Department Care Team Description 08/31/2024 Orders Only [facility] Part [address] [place] [address] Molina Chang DO 08/28/2024 8:40 AM EDT Office Visit [facility] Part [address] [place] [address] Lorenzo Vang MD Speech disturbance, unspecified type (Primary Dx); 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) ([facility]) 08/18/2024 12:58 AM EDT - 08/18/2024 5:03 AM EDT Emergency [facility] Emergency Department [address] [place] [id number] Shabnam James MD General weakness (Primary Dx); Neck strain, initial encounter Discharge Disposition: Home or Self Care 08/18/2024 Travel 07/26/2024 10:33 AM EDT - 07/28/2024 11:59 PM EDT Hospital Encounter [facility] Radiology [address] [place] [id number] Thoracic spondylosis without myelopathy Discharge Disposition: Home or Self Care 07/26/2024 10:29 AM EDT - 07/26/2024 10:32 AM EDT Hospital Encounter [facility] [address] [place] [id number] Lower extremity edema; Lightheaded; Dizziness; History of TIA (transient ischemic attack); Cerebral arterial aneurysm; Essential hypertension; Mixed hyperlipidemia; TIA (transient ischemic attack); Complicated UTI (urinary tract infection) Discharge Disposition: Home or Self Care 07/26/2024 Results Follow-Up [facility] Part of [address] [address] Apurva Vu APRN - CNP 07/26/2024 Transcribe Orders [facility] Admitting [address] [place] [id number] Symone Bales APRN - CNP Thoracic spondylosis without myelopathy (Primary Dx) 07/19/2024 9:00 AM EDT Office Visit [facility] Part of [address] [address] Apurva Vu APRN - KERRY Lower extremity edema (Primary Dx); Lightheaded; Dizziness; History of TIA (transient ischemic attack); TIA (transient ischemic attack); Cerebral arterial aneurysm; Essential hypertension; Mixed hyperlipidemia 07/12/2024 Travel 07/11/2024 9:56 PM EDT - 07/14/2024 2:01 PM EDT Hospital Encounter [facility] [address] [place] [id number] Levi Dorsey MD Iacob, Stefan, MD Transient alteration of awareness (Primary Dx); Right ear pain; Complicated UTI (urinary tract infection); History of TIA (transient ischemic attack) Discharge Disposition: Home or Self Care 07/11/2024 Travel from Last 3 Months Immunizations Immunization Administration [...] drink = 0.6 oz pur e alcohol) [facility] Utilities Answer Date Recorded In the past 12 months has th e electric, gas, oil, or water company threatened [...] money to buy more. Never true 07/13/19 Within the past 12 months, t he [...] place to sleep or slept in a correction (including now)? No 04/04/2023 Housing Stability Vital Sign Answer Alejandro e Recorded In the last 12 months, was t here a time when you were not able to pay the mortgage or rent on time? No 07/12/2024 In the past 12 months, how m any times have you moved where you were living? 0 07/12/2024 At any time in the past 12 m [facility], were you homeless or living in a correction (including now)? No 07/12/2024 Interpersonal Safety ([facility] HRSN) Answer Date Recorded How often does [...] Sign Reading Time Taken Comments Blood Pressure 137/65 08/28/2024 8:51 AM EDT Pulse 70 08/28/2024 8:51 AM EDT Temperature 35.9 C (96.7 F) 08/28/2024 8:51 AM EDT Respiratory Rate 22 08/28/2024 8:51 AM EDT Oxygen Saturation 98% 08/18/2024 5:02 AM EDT Inhaled Oxygen Concentration - - Weight 84.8 kg (187 lb) 08/28/2024 8:51 AM EDT Height 162.6 cm (5' 4 ) 08/28/2024 8:51 AM EDT Body Mass Index 32.1 08/28/2024 8:51 AM EDT Plan of Treatment Upcoming Encounters Date Type Department Care Team (Late st Contact Info) Description 11/27/2024 11:20 AM EDT Office Visit [facility] [address] [place] [phone] Lorenzo Vang MD [address] [place] [address] [address] [place] [address] 3 month follow up; TIA 01/24/2025 10:20 AM EST Office Visit [facility] Part [facility] [address] [place] [address] Alissa Marx MD [address] [place] [address] [place] [address] 6 month follow up Health Maintenance Due Date Last Done Comments Depression Screen 1952 Diabetic Alb to Cr ratio (uACR) test 11/06/1959 DTaP/Tdap/Td vaccine (1 - Tdap) 1960 Pneumococcal 50+ years Vaccine (1 of 2 - PCV) 1959 Annual Wellness Visit (Medicare Advantage) 02/09/2024 COVID-19 Vaccine (4 - season) 2024 11/08/2023, 01/23/2022, 02/03/2021 Flu vaccine (#1) 09/08/2024 11/26/2017 Lipids 05/15/2025 05/15/2024, 10/09, 04/05/2023, Additional history exists GFR test (Diabetes, CKD 3-4, OR last GFR 15-59) 08/18/2025 08/18/2024, 07/26/2024, 07/14/2024, Additional history exists DEXA (modify frequency per [...] this topic Medical Devices Implanted Type Area Superintendent Cemetery Device Identifier Shelf Expiration Date Model / Serial / Lot Lens Iol Envista Mx60 25.0d - [id number] Implanted:Qty: 1 on 12/20/2017 by Rocky Dee DO at [facility] Eye Right: Eye [employer] 09/08/2019 MX60 25.0D / [id number] / Procedures Procedure Name Priority Date/Time Associated Diagnosis Comments MICROSCOPIC URINALYSIS Routine 08/18/2024 2:50 AM EDT TROPONIN STAT 08/18/2024 2:50 AM EDT URINALYSIS WITH REFLEX TO CULTURE STAT 08/18/2024 2:50 AM EDT XR CHEST 1 VIEW STAT 08/18/2024 2:[address] HEAD WO CONTRAST CODE STROKE 08/18/2024 2 :21 AM EDT CTA HEAD NECK W CONTRAST CODE STROKE 08/18/2024 2:16 AM EDT T4, FREE STAT 08/18/2024 1:09 AM EDT TSH STAT 08/18/2024 1:09 AM EDT TROPONIN STAT 08/18/2024 1:09 AM EDT CBC WITH AUTO DIFFERENTIAL STAT 08/18/2024 1:09 AM EDT COMPREHENSIVE METABOLIC PANEL STAT 08/18/2024 1:09 AM EDT EKG 12-LEAD STAT 08/18/2024 1:07 AM EDT GLUCOSE, WHOLE BLOOD Routine 08/18/2024 1:02 AM EDT XR THORACIC SPINE (2 VIEWS) Routine 07/26/2024 10:47 AM EDT Thoracic spondylosis without myelopathy BRAIN NATRIURETIC PEPTIDE Routine 07/26/2024 10:45 AM EDT MICROSCOPIC URINALYSIS Routine 07/26/2024 10:44 AM EDT URINALYSIS WITH REFLEX TO CULTURE Routine 07/26/2024 10:44 AM EDT Complicated UTI (urinary tract infection) CULTURE, URINE Routine 07/26/2024 10:44 AM EDT Complicated UTI (urinary tract infection) CBC WITH AUTO DIFFERENTIAL Routine 07/26/2024 10:43 AM EDT Complicated UTI (urinary tract infection) COMPREHENSIVE METABOLIC PANEL Routine 07/26/2024 10:43 AM EDT Complicated UTI (urinary tract infection) CBC WITH AUTO DIFFERENTIAL Routine 07/14/2024 6:08 AM EDT BASIC METABOLIC PANEL W/ REFLEX TO MG FOR LOW K Routine 07/14/2024 6:08 AM EDT EKG RHYTHM STRIP Routine 07/14/2024 6:00 AM EDT CBC WITH AUTO DIFFERENTIAL Routine 07/13/2024 5:30 AM EDT BASIC METABOLIC PANEL W/ REFLEX TO MG FOR LOW K Routine 07/13/2024 5:30 AM EDT CBC WITH AUTO DIFFERENTIAL Routine 07/12/2024 5:00 AM EDT BASIC METABOLIC PANEL W/ REFLEX TO MG FOR LOW K Routine 07/12/2024 5:00 AM EDT TROPONIN STAT 07/11/2024 11:38 PM EDT COMPREHENSIVE METABOLIC PANEL STAT 07/11/2024 11:[address] HEAD WO CONTRAST STAT 07/11/2024 1 0:55 PM EDT XR CHEST (2 VW) STAT 07/11/2024 10:52 PM EDT MICROSCOPIC URINALYSIS Routine 07/11/2024 10:30 PM EDT URINALYSIS STAT 07/11/2024 10:30 PM EDT CULTURE, URINE Sunquest Label Print 07/11/2024 10:30 PM EDT TROPONIN STAT 07/11/2024 10:20 PM EDT TSH STAT 07/11/2024 10:20 PM EDT CULTURE, BLOOD 2 STAT 07/11/2024 10:2 0 PM EDT LACTIC ACID STAT 07/11/2024 10:15 PM EDT CBC WITH AUTO DIFFERENTIAL STAT 07/11/2024 10:15 PM EDT CULTURE, BLOOD 1 STAT 07/11/2024 10:1 5 PM EDT EKG 12-LEAD STAT 07/11/2024 10:14 PM EDT LIPID PANEL Routine 05/15/2024 1:47 PM EDT DEXA BONE DENSITY 2 SITES Routine 12/07/2012 1:36 PM EDT from Last 3 Months or Most Recently Relevant to Health Maintenance Results * Urinalysis with Reflex to Culture (08/18/2024 2:50 AM EDT) Only the most recent of2 resultswithin the time period is included. Color, UA Yellow Yellow 08/18/2024 2:50 AM EDT [facility] Turbidity UA Clear Clear 08/18/2024 2:50 AM EDT [facility] Glucose, Ur NEGATIVE NEGATIVE mg/dL 08/18/2024 2:50 AM EDT [facility] Bilirubin, Urine NEGATIVE NEGATIVE 08/18/2024 2:50 AM EDT [facility] Ketones, Urine NEGATIVE NEGATIVE mg/dL 08/18/2024 2:50 AM EDT [facility] Specific [place], UA 1.010 1.010 - 1.020 08/18/2024 2:50 AM EDT [facility] Urine Hgb NEGATIVE NEGATIVE 08/18/2024 2:50 AM EDT [facility] pH, Urine 6.0 5.0 - 9.0 08/18/2024 2:50 AM EDT [facility] Protein, UA NEGATIVE NEGATIVE mg/dL 08/18/2024 2:50 AM EDT [facility] Urobilinogen, Urine Normal 0.0 - 1.0 EU/dL 08/18/2024 2:50 AM EDT [facility] Nitrite, Urine NEGATIVE NEGATIVE 08/18/2024 2:50 AM EDT [facility] Leukocyte Esterase, Urine NEGATIVE NEGATIVE 08/18/2024 2:50 AM T [facility] Urine 08/18/2024 2:50 AM EDT 08/18/2024 2:54 AM EDT us Shabnam James MD URINE ORDERABLES Final Result [facility] [address] [phone] * Microscopic Urinalysis (08/18/2024 2:50 AM EDT) Only the most recent of3 resultswithin the time period is included. WBC, UA 0 TO 2 0 - 5 /HPF 08/18/2024 2:50 AM EDT [facility] RBC, UA 0 TO 2 0 - 2 /HPF 08/18/2024 2:50 AM EDT [facility] Epithelial Cells, UA 0 TO 2 0 - 25 /HPF 08/18/2024 2:50 AM EDT [facility] 08/18/2024 2:50 AM EDT 08/18/2024 2:54 AM EDT Shabnam James MD URINE ORDERABLES Final Result Performing Organization Address [facility]/ZIP Co de Phone Number [facility] [address] [place] [address] * (ABNORMAL) Troponin (08/18/2024 2:50 AM EDT) Only the most recent of4 resultswithin the time period is included. Troponin, High Sensitivity 28(H) 0 - 14 ng/L 08/18/2024 2:50 AM EDT [facility] Comment:High Sensitivity Tro ponin values cannot be compared with other Troponin methodologies. Blood BLOOD SPECIMEN / Unknown 08/18/2024 2:50 AM EDT 08/18/2024 2:53 AM EDT Shabnam James MD CHEMISTRY ORDERABLES Final Resul t Performing Organization Address City/[facility]/ZIP Co de Phone Number [facility] [address] [place] [address] * XR CHEST 1 VIEW (08/18/2024 2:22 AM EDT) Anatomical Region Laterality Modality Chest Computed Radiogr aphy 08/18/2024 6:44 AM EDT Impressions 08/18/2024 7:24 PM EDT 1. No acute cardiopulmonary process. 2. Borderline cardiomegaly. No CHF. Narrative 08/18/2024 7:24 PM EDT EXAMINATION: ONE XRAY VIEW OF THE CHEST. PORTABLE UPRIGHT AP VIEW OF CHEST. 08/18/2024 2:21 am COMPARISON: Portable upright AP view of chest on 07/11/2024. HISTORY: ORDERING SYSTEM PROVIDED HISTORY: weakness TECHNOLOGIST PROVIDED HISTORY: weakness FINDINGS: The cardiac size is borderline. Pulmonary vascularity is not cephalized. No evidence of pulmonary edema. No evidence of pneumonia or pulmonary atelectasis or any other diagnostic finding in lungs. No evidence of pleural effusion or pleural thickening, pneumothorax or pneumomediastinum. No change or diagnostic finding in the bony thorax. In visualized upper portion of abdomen there is no obvious radiographic diagnostic finding. Procedure Note Madina Gómez MD - 08/18/2024 EXAMINATION: ONE XRAY VIEW OF THE CHEST. PORTABLE UPRIGHT AP VIEW OF CHEST. 08/18/2024 2:21 am COMPARISON: Portable upright AP view of chest on 07/11/2024. HISTORY: ORDERING SYSTEM PROVIDED HISTORY: weakness TECHNOLOGIST PROVIDED HISTORY: weakness FINDINGS: The cardiac size is borderline. Pulmonary vascularity is not cephalized.No evidence of pulmonary edema. No evidence of pneumonia or pulmonary atelectasis or any other diagnostic finding in lungs. No evidence of pleural effusion or pleural thickening, pneumothorax or pneumomediastinum. No change or diagnostic finding in the bony thorax. In visualized upper portion of abdomen there is no obvious radiographic diagnostic finding. IMPRESSION: 1. No acute cardiopulmonary process. 2. Borderline cardiomegaly. No CHF. Shabnam [facility] ORDERABLE S Final Result * CT Head W/O Contrast (08/18/2024 2:21 AM EDT) Only the most recent of2 resultswithin the time period is included. Anatomical Region Laterality Modality Head Computed Tomogra phy 08/18/2024 2:29 AM EDT Impressions 08/18/2024 7:29 PM EDT 1. No acute intracranial abnormality. No intracranial hemorrhage. 2. No evidence of arterial stenosis or occlusion in the major arterial vessels of the head and neck. 3. No evidence of dural venous sinus thrombosis on this non-dedicated study. 4. Moderate to marked degenerative disc disease at C5-C6 and C6-C7 levels, without significant stenosis. Narrative 08/18/2024 7:29 PM EDT EXAMINATION: CT OF THE HEAD WITHOUT CONTRAST; CTA OF THE HEAD AND NECK WITH CONTRAST 08/18/2024 2:01 am TECHNIQUE: CT of the head was performed without the administration of intravenous contrast. Automated exposure control, iterative reconstruction, and/or weight based adjustment of the mA/kV was utilized to reduce the radiation dose to as low as reasonably achievable.; CTA of the head and neck was performed with the administration of intravenous contrast. Multiplanar reformatted images are provided for review. MIP images are provided for review. Stenosis of the internal carotid arteries measured using NASCET criteria. Automated exposure control, iterative reconstruction, and/or weight based adjustment of the mA/kV was utilized to reduce the radiation dose to as low as reasonably achievable. COMPARISON: Unenhanced CT scan of head on 07/11/2024. HISTORY: ORDERING SYSTEM PROVIDED HISTORY: weakness TECHNOLOGIST PROVIDED HISTORY: weakness Decision Support Exception - unselect if not a suspected or confirmed emergency medical condition->Emergency Medical Condition ([place]); ORDERING SYSTEM PROVIDED HISTORY: weakness TECHNOLOGIST PROVIDED HISTORY: weakness Decision Support Exception - unselect if not a suspected or confirmed emergency medical condition->Emergency Medical Condition ([place]) FINDINGS: Unenhanced CT scan of head BRAIN/VENTRICLES: There is no acute intracranial hemorrhage, [...] of the visualized skull or soft tissues. CTA NECK: AORTIC ARCH/ARCH VESSELS: No dissection or arterial injury. No significant stenosis of the brachiocephalic or subclavian arteries. CAROTID ARTERIES: No dissection, arterial injury, or hemodynamically significant stenosis by NASCET criteria. VERTEBRAL ARTERIES: No dissection, arterial injury, or significant stenosis. The right vertebral artery is of very small caliber but patent without stenosis or dissection. SOFT TISSUES: The lung apices are clear. No cervical or superior mediastinal lymphadenopathy. The larynx and pharynx are unremarkable. No acute abnormality of the salivary and thyroid glands. BONES: No acute osseous abnormality. Evidence of moderate to marked degenerative disc disease at C5-C6 and C6-C7 levels, without significant stenosis. CTA head ANTERIOR CIRCULATION: No significant stenosis of the intracranial internal carotid, anterior cerebral, or middle cerebral arteries. No aneurysm. POSTERIOR CIRCULATION: No significant stenosis of the vertebral, basilar, or posterior cerebral arteries. No aneurysm. OTHER: No dural venous sinus thrombosis on this non-dedicated study. BRAIN: No mass effect or midline shift. No extra-axial fluid collection. The kevin-white differentiation is maintained. Procedure Note Madina Gómez MD - 08/18/2024 EXAMINATION: CT OF THE HEAD WITHOUT CONTRAST; CTA OF THE HEAD AND NECK WITH CONTRAST 08/18/2024 2:01 am TECHNIQUE: CT of the head was performed without the administration of intravenous contrast. Automated exposure control, iterative reconstruction, and/orweight based adjustment of the mA/kV was utilized to reduce the radiation dose toas low as reasonably achievable.; CTA of the head and neck was performedwith the administration of intravenous contrast. Multiplanar reformattedimages are provided for review. MIP images are provided for review. Stenosis ofthe internal carotid arteries measured using NASCET criteria. Automatedexposure control, iterative reconstruction, and/or weight based adjustment of the mA/kV was utilized to reduce the radiation dose to as low as reasonably achievable. COMPARISON: Unenhanced CT scan of head on 07/11/2024. HISTORY: ORDERING SYSTEM PROVIDED HISTORY: weakness TECHNOLOGIST PROVIDED HISTORY: weakness Decision Support Exception - unselect if not a suspected or confirmed emergency medical condition->Emergency Medical Condition ([place]); ORDERING SYSTEM PROVIDED HISTORY: weakness TECHNOLOGIST PROVIDED HISTORY: weakness Decision Support Exception - unselect if not a suspected or confirmed emergency medical condition->Emergency Medical Condition ([place]) FINDINGS: Unenhanced CT scan of head BRAIN/VENTRICLES: There is no acute intracranial hemorrhage, mass effector midline shift. No abnormal extra-axial fluid collection. Thegray-white differentiation is maintained without evidence of an acute infarct. Thereis no evidence of hydrocephalus. ORBITS: The visualized portion of the orbits demonstrate no acuteabnormality. SINUSES: The visualized paranasal sinuses and mastoid air cellsdemonstrate no acute abnormality. SOFT TISSUES/SKULL: No acute abnormality of the visualized skull orsoft tissues. CTA NECK: AORTIC ARCH/ARCH VESSELS: No dissection or arterial injury. Nosignificant stenosis of the brachiocephalic or subclavian arteries. CAROTID ARTERIES: No dissection, arterial injury, or hemodynamically significant stenosis by NASCET criteria. VERTEBRAL ARTERIES: No dissection, arterial injury, or significantstenosis. The right vertebral artery is of very small caliber but patent without stenosis or dissection. SOFT TISSUES: The lung apices are clear. No cervical or superiormediastinal lymphadenopathy. The larynx and pharynx are unremarkable. No acute abnormality of the salivary and thyroid glands. BONES: No acute osseous abnormality. Evidence of moderate to marked degenerative disc disease at C5-C6 and C6-C7 levels, without significant stenosis. CTA head ANTERIOR CIRCULATION: No significant stenosis of the intracranialinternal carotid, anterior cerebral, or middle cerebral arteries. No aneurysm. POSTERIOR CIRCULATION: No significant stenosis of the vertebral, basilar,or posterior cerebral arteries. No aneurysm. OTHER: No dural venous sinus thrombosis on this non-dedicated study. BRAIN: No mass effect or midline shift. No extra-axial fluid collection.The kevin-white differentiation is maintained. IMPRESSION: 1. No acute intracranial abnormality. No intracranial hemorrhage. 2. No evidence of arterial stenosis or occlusion in the major arterial vessels of the head and neck. 3. No evidence of dural venous sinus thrombosis on this non-dedicatedstudy. 4. Moderate to marked degenerative disc disease at C5-C6 and C6-O5areidt, without significant stenosis. Shabnam James MD IM CT ORDERABLES Final Result * CTA HEAD NECK W CONTRAST (08/18/2024 2:16 AM EDT) Anatomical Region Laterality Modality Neck, Head, Vascular Computed To mography 08/18/2024 2:29 AM EDT Impressions 08/18/2024 7:29 PM EDT 1. No acute intracranial abnormality. No intracranial hemorrhage. 2. No evidence of arterial stenosis or occlusion in the major arterial vessels of the head and neck. 3. No evidence of dural venous sinus thrombosis on this non-dedicated study. 4. Moderate to marked degenerative disc disease at C5-C6 and C6-C7 levels, without significant stenosis. Narrative 08/18/2024 7:29 PM EDT EXAMINATION: CT OF THE HEAD WITHOUT CONTRAST; CTA OF THE HEAD AND NECK WITH CONTRAST 08/18/2024 2:01 am TECHNIQUE: CT of the head was performed without the administration of intravenous contrast. Automated exposure control, iterative reconstruction, and/or weight based adjustment of the mA/kV was utilized to reduce the radiation dose to as low as reasonably achievable.; CTA of the head and neck was performed with the administration of intravenous contrast. Multiplanar reformatted images are provided for review. MIP images are provided for review. Stenosis of the internal carotid arteries measured using NASCET criteria. Automated exposure control, iterative reconstruction, and/or weight based adjustment of the mA/kV was utilized to reduce the radiation dose to as low as reasonably achievable. COMPARISON: Unenhanced CT scan of head on 07/11/2024. HISTORY: ORDERING SYSTEM PROVIDED HISTORY: weakness TECHNOLOGIST PROVIDED HISTORY: weakness Decision Support Exception - unselect if not a suspected or confirmed emergency medical condition->Emergency Medical Condition ([place]); ORDERING SYSTEM PROVIDED HISTORY: weakness TECHNOLOGIST PROVIDED HISTORY: weakness Decision Support Exception - unselect if not a suspected or confirmed emergency medical condition->Emergency Medical Condition ([place]) FINDINGS: Unenhanced CT scan of head BRAIN/VENTRICLES: There is no acute intracranial hemorrhage, [...] of the visualized skull or soft tissues. CTA NECK: AORTIC ARCH/ARCH VESSELS: No dissection or arterial injury. No significant stenosis of the brachiocephalic or subclavian arteries. CAROTID ARTERIES: No dissection, arterial injury, or hemodynamically significant stenosis by NASCET criteria. VERTEBRAL ARTERIES: No dissection, arterial injury, or significant stenosis. The right vertebral artery is of very small caliber but patent without stenosis or dissection. SOFT TISSUES: The lung apices are clear. No cervical or superior mediastinal lymphadenopathy. The larynx and pharynx are unremarkable. No acute abnormality of the salivary and thyroid glands. BONES: No acute osseous abnormality. Evidence of moderate to marked degenerative disc disease at C5-C6 and C6-C7 levels, without significant stenosis. CTA head ANTERIOR CIRCULATION: No significant stenosis of the intracranial internal carotid, anterior cerebral, or middle cerebral arteries. No aneurysm. POSTERIOR CIRCULATION: No significant stenosis of the vertebral, basilar, or posterior cerebral arteries. No aneurysm. OTHER: No dural venous sinus thrombosis on this non-dedicated study. BRAIN: No mass effect or midline shift. No extra-axial fluid collection. The kevin-white differentiation is maintained. Procedure Note Madina Gómez MD - 08/18/2024 EXAMINATION: CT OF THE HEAD WITHOUT CONTRAST; CTA OF THE HEAD AND NECK WITH CONTRAST 08/18/2024 2:01 am TECHNIQUE: CT of the head was performed without the administration of intravenous contrast. Automated exposure control, iterative reconstruction, and/orweight based adjustment of the mA/kV was utilized to reduce the radiation dose toas low as reasonably achievable.; CTA of the head and neck was performedwith the administration of intravenous contrast. Multiplanar reformattedimages are provided for review. MIP images are provided for review. Stenosis ofthe internal carotid arteries measured using NASCET criteria. Automatedexposure control, iterative reconstruction, and/or weight based adjustment of the mA/kV was utilized to reduce the radiation dose to as low as reasonably achievable. COMPARISON: Unenhanced CT scan of head on 07/11/2024. HISTORY: ORDERING SYSTEM PROVIDED HISTORY: weakness TECHNOLOGIST PROVIDED HISTORY: weakness Decision Support Exception - unselect if not a suspected or confirmed emergency medical condition->Emergency Medical Condition (MA); ORDERING SYSTEM PROVIDED HISTORY: weakness TECHNOLOGIST PROVIDED HISTORY: weakness Decision Support Exception - unselect if not a suspected or confirmed emergency medical condition->Emergency Medical Condition (MA) FINDINGS: Unenhanced CT scan of head BRAIN/VENTRICLES: There is no acute intracranial hemorrhage, mass effector midline shift. No abnormal extra-axial fluid collection. Thegray-white differentiation is maintained without evidence of an acute infarct. Thereis no evidence of hydrocephalus. ORBITS: The visualized portion of the orbits demonstrate no acuteabnormality. SINUSES: The visualized paranasal sinuses and mastoid air cellsdemonstrate no acute abnormality. SOFT TISSUES/SKULL: No acute abnormality of the visualized skull orsoft tissues. CTA NECK: AORTIC ARCH/ARCH VESSELS: No dissection or arterial injury. Nosignificant stenosis of the brachiocephalic or subclavian arteries. CAROTID ARTERIES: No dissection, arterial injury, or hemodynamically significant stenosis by NASCET criteria. VERTEBRAL ARTERIES: No dissection, arterial injury, or significantstenosis. The right vertebral artery is of very small caliber but patent without stenosis or dissection. SOFT TISSUES: The lung apices are clear. No cervical or superiormediastinal lymphadenopathy. The larynx and pharynx are unremarkable. No acute abnormality of the salivary and thyroid glands. BONES: No acute osseous abnormality. Evidence of moderate to marked degenerative disc disease at C5-C6 and C6-C7 levels, without significant stenosis. CTA head ANTERIOR CIRCULATION: No significant stenosis of the intracranialinternal carotid, anterior cerebral, or middle cerebral arteries. No aneurysm. POSTERIOR CIRCULATION: No significant stenosis of the vertebral, basilar,or posterior cerebral arteries. No aneurysm. OTHER: No dural venous sinus thrombosis on this non-dedicated study. BRAIN: No mass effect or midline shift. No extra-axial fluid collection.The kevin-white differentiation is maintained. IMPRESSION: 1. No acute intracranial abnormality. No intracranial hemorrhage. 2. No evidence of arterial stenosis or occlusion in the major arterial vessels of the head and neck. 3. No evidence of dural venous sinus thrombosis on this non-dedicatedstudy. 4. Moderate to marked degenerative disc disease at C5-C6 and C6-H6jyhdlf, without significant stenosis. Shabnam James MD [facility] [place] ORDERABLES Final Result * (ABNORMAL) CBC with Auto Differential (08/18/2024 1:09 AM EDT) Only the most recent of6 resultswithin the time period is included. WBC 6.8 3.5 - 11.3 k/uL 08/18/2024 1:09 AM [facility] RBC 3.63(L) 3.95 - 5.11 m/uL 08/18/2024 1:09 AM [facility] Hemoglobin 11.0(L) 11.9 - 15.1 g/dL 08/18/2024 1:09 AM [facility] Hematocrit 34.5(L) 36.3 - 47.1 % 08/18/2024 1:09 AM [facility] MCV 95.0 82.6 - 102.9 fL 08/18/2024 1:09 AM [facility] MCH 30.3 25.2 - 33.5 pg 08/18/2024 1:09 AM [facility] MCHC 31.9 28.4 - 34.8 g/dL 08/18/2024 1:09 AM [facility] RDW 13.6 11.8 - 14.4 % 08/18/2024 1:09 AM [facility] Platelets 226 138 - 453 k/uL 08/18/2024 1:09 AM [facility] MPV 10.2 8.1 - 13.5 fL 08/18/2024 1:09 AM [facility] NRBC Automated 0.0 0.0 per 100 WBC 08/18/2024 1:09 AM [facility] Neutrophils % 56 36 - 65 % 08/18/2024 1:09 AM [facility] Lymphocytes % 25 24 - 43 % 08/18/2024 1:09 AM [facility] Monocytes % 15(H) 3 - 12 % 08/18/2024 1:09 AM [facility] Eosinophils % 4 1 - 4 % 08/18/2024 1:09 AM [facility] Basophils % 0 0 - 2 % 08/18/2024 1:09 AM [facility] Immature Granulocytes % 0 0 % 08/18/2024 1:09 AM [facility] Neutrophils Absolute 3.77 1.50 - 8.10 k/uL 08/18/2024 1:09 AM [facility] Lymphocytes Absolute 1.72 1.10 - 3.70 k/uL 08/18/2024 1:09 AM [facility] Monocytes Absolute 1.03 0.10 - 1.20 k/uL 08/18/2024 1:09 AM [facility] Eosinophils Absolute 0.27 0.00 - 0.44 k/uL 08/18/2024 1:09 AM [facility] Basophils Absolute <0.03 0.00 - 0.20 k/uL 08/18/2024 1:09 AM EDT [facility] Immature Granulocytes Absolute 0.03 0.00 - 0.30 k/uL 08/18/2024 1:09 AM EDT [facility] Blood BLOOD SPECIMEN / Unknown 08/18/2024 1:09 AM EDT 08/18/2024 2:01 AM EDT us Shabnam James MD HEMATOLOGY ORDERABLES Final Resu lt [facility] [address] [place] [address] * TSH (08/18/2024 1:09 AM EDT) Only the most recent of2 resultswithin the time period is included. TSH 3.27 0.27 - 4.20 uIU/mL 08/18/2024 1:09 AM EDT [facility] Blood BLOOD SPECIMEN / Unknown 08/18/2024 1:09 AM EDT 08/18/2024 2:02 AM EDT us Shabnam James MD CHEMISTRY ORDERABLES Final Resul t Performing Organization Address [facility]/ZIP Co de Phone Number [facility] [address] [place] [address] * T4, Free (08/18/2024 1:09 AM EDT) T4 Free 1.2 0.92 - 1.68 ng/dL 08/18/2024 1:09 AM EDT [facility] [employer] Blood BLOOD SPECIMEN / Unknown 08/18/2024 1:09 AM EDT 08/18/2024 2:02 AM EDT us Shabnam James MD CHEMISTRY ORDERABLES Final Resul t Performing Organization Address City/[facility]/ZIP Co de Phone Number [facility] [address] [place] [address] [facility] [employer] [address] [place] [address] * (ABNORMAL) CMP (08/18/2024 1:09 AM EDT) Only the most recent of3 resultswithin the time period is included. Sodium 145 136 - 145 mmol/L 08/18/2024 1:09 AM [facility] Potassium 4.3 3.7 - 5.3 mmol/L 08/18/2024 1:09 AM [facility] Chloride 111(H) 98 - 107 mmol/L 08/18/2024 1:09 AM [facility] CO2 19(L) 20 - 31 mmol/L 08/18/2024 1:09 AM [facility] Anion Gap 15 9 - 16 mmol/L 08/18/2024 1:09 AM [facility] Glucose 104(H) 74 - 99 mg/dL 08/18/2024 1:09 AM [facility] BUN 30(H) 8 - 23 mg/dL 08/18/2024 1:09 AM [facility] Creatinine 1.5(H) 0.50 - 0.90 mg/dL 08/18/2024 1:09 AM [facility] Est, Glom Filt Rate 34(L) >60 mL/min/1.7 3m2 08/18/2024 1:09 AM [facility] Comment: These results are not [...] following therapy that affects renal tubular secretion. BUN/Creatinine Ratio 20 9 - 20 08/18/2024 1:09 AM [facility] Calcium 9.2 8.6 - 10.4 mg/dL 08/18/2024 1:09 AM [facility] Total Protein 6.7 6.6 - 8.7 g/dL 08/18/2024 1:09 AM EDT [facility] Albumin 4.2 3.5 - 5.2 g/dL 08/18/2024 1:09 AM EDT [facility] Albumin/Globulin Ratio 1.7 1.0 - 2.5 08/18/2024 1:09 AM EDT [facility] Total Bilirubin 0.3 0.00 - 1.20 mg/dL 08/18/2024 1:09 AM EDT [facility] Alkaline Phosphatase 85 35 - 104 U/L 08/18/2024 1:09 AM EDT [facility] ALT 15 10 - 35 U/L 08/18/2024 1:09 AM EDT [facility] AST 20 10 - 35 U/L 08/18/2024 1:09 AM EDT [facility] Blood BLOOD SPECIMEN / Unknown 08/18/2024 1:09 AM EDT 08/18/2024 2:01 AM EDT us Shabnam James MD CHEMISTRY ORDERABLES Final Resul t [facility] [address] [id number] [phone] * EKG 12 Lead (08/18/2024 1:07 AM EDT) Only the most recent of2 resultswithin the time period is included. Pathologist [facility] Ventricular Rate 65 BPM [facility] Atrial Rate 65 BPM [facility] P-R Interval 174 ms [facility] QRS Duration 90 ms [facility] Q-T Interval 400 ms [facility] QTc Calculation (Bazett) 416 ms [facility] P [place] 50 degrees [facility] R [place] 39 degrees [facility] T [place] 31 degrees [facility] 08/18/2024 1:07 AM EDT Narrative [facility] - 08/18/2024 4:10 PM EDT Normal sinus rhythm Normal ECG When compared with ECG of 11-Jul-2024 22:14, No significant change was found Confirmed by Trae Bartholomew ([id number]) on 08/18/2024 4:10:14 PM Procedure Note Trae Bartholomew MD - 08/18/2024 Normal sinus rhythm Normal ECG When compared with ECG of 11-Jul-2024 22:14, No significant change was found Confirmed by Trae Bartholomew ([id number]) on 08/18/2024 4:10:14 PM Shabnam James MD ECG ORDERABLES Final Result Performing Organization Address [facility] Co de Phone Number [facility] * Glucose, Whole Blood (08/18/2024 1:02 AM EDT) [facility] POC Glucose 97 74 - 100 mg/dL 08/18/2024 1:02 AM EDT [facility] 08/18/2024 1:02 AM EDT 08/18/2024 1:09 AM EDT Shabnam James MD CHEMISTRY ORDERABLES Final Resul t Performing Organization Address [facility] Co de Phone Number [facility] [address] [phone] * XR THORACIC SPINE (2 VIEWS) (07/26/2024 10:47 AM EDT) Anatomical Region Laterality Modality C-spine, T-spine, L-spine, Chest Computed Radiography 08/01/2024 12:1 6 PM EDT Impressions 08/01/2024 12:18 PM EDT 1. Moderate degenerative disc disease throughout the thoracic spine. 2. Sever osteopenia. 3. Consider MRI to further evaluate if appropriate. Narrative 08/01/2024 12:18 PM EDT EXAMINATION: 2 12 rib-bearing vertebral bodies. Slightly increased kyphosis. There is marked osteopenia. The posterior elements appear to be normal alignment. XRAY VIEWS OF THE THORACIC SPINE 07/26/2024 10:46 am COMPARISON: None. HISTORY: ORDERING SYSTEM PROVIDED HISTORY: Thoracic spondylosis without myelopathy FINDINGS: AP and lateral view of the thoracic spine. 12 rib-bearing vertebral bodies. Slightly increased thoracic kyphosis. Marked osteopenia. The pedicles are well seen. Mild facet arthropathy. Moderate diffuse disc space narrowing. No obvious paraspinal mass or lytic or blastic lesion. Procedure Note Mikael Thao MD - 08/01/2024 EXAMINATION: 2 12 rib-bearing vertebral bodies. Slightly increased kyphosis. Thereis marked osteopenia. The posterior elements appear to be normalalignment. XRAY VIEWS OF THE THORACIC SPINE 07/26/2024 10:46 am COMPARISON: None. HISTORY: ORDERING SYSTEM PROVIDED HISTORY: Thoracic spondylosis withoutmyelopathy FINDINGS: AP and lateral view of the thoracic spine. 12 rib-bearing vertebralbodies. Slightly increased thoracic kyphosis. Marked osteopenia. The pediclesare well seen. Mild facet arthropathy. Moderate diffuse disc spacenarrowing. No obvious paraspinal mass or lytic or blastic lesion. IMPRESSION: 1. Moderate degenerative disc disease throughout the thoracic spine. 2. Sever osteopenia. 3. Consider MRI to further evaluate if appropriate. Symone Bales APRN - [facility] IMG DIAGNOSTIC IMAGING ORD ERABLES Final Result * (ABNORMAL) Brain Natriuretic Peptide (07/26/2024 10:45 AM EDT) NT Pro-BNP 814(H) 0 - 450 pg/mL 07/26/2024 10:45 AM EDT [facility] 07/26/2024 10:4 5 AM EDT 07/26/2024 10:46 AM EDT us Molina Chang DO CHEMISTRY ORDERABLES Final R esult [facility] [address] [id number] [phone] * Culture, Urine (07/26/2024 10:44 AM EDT) Only the most recent of2 resultswithin the time period is included. Specimen Description .CLEAN CATCH URINE 07/26/2024 10:44 AM T [facility] Special Requests Site: Urine 07/26/2024 10:44 AM EDT [facility] Culture NO GROWTH 07/26/2024 10:44 AM EDT [facility] Urine URINE SPECIMEN / Unknown 07/26/2024 10:44 AM EDT 07/26/2024 10:45 AM EDT Steven Izaguirre MD MICROBIOLOGY - GENERAL ORDERABLE S Final Result [facility] [address] [place] [address], [facility] [phone] [id number] [place] [address], [facility] [phone] * (ABNORMAL) Basic Metabolic Panel w/ Reflex to MG (07/14/2024 6:08 AM EDT) Only the most recent of3 resultswithin the time period is included. Sodium 143 136 - 145 mmol/L 07/14/2024 6:08 AM [facility] Potassium 4.1 3.7 - 5.3 mmol/L 07/14/2024 6:08 AM [facility] Chloride 113(H) 98 - 107 mmol/L 07/14/2024 6:08 AM [facility] CO2 20 20 - 31 mmol/L 07/14/2024 6:08 AM [facility] Anion Gap 10 9 - 16 mmol/L 07/14/2024 6:08 AM [facility] Glucose 93 74 - 99 mg/dL 07/14/2024 6:08 AM [facility] BUN 19 8 - 23 mg/dL 07/14/2024 6:08 AM [facility] Creatinine 0.9 0.50 - 0.90 mg/dL 07/14/2024 6:08 AM [facility] Est, Glom Filt Rate 61 >60 mL/min/1.7 3m2 07/14/2024 6:08 AM EDT [facility] Comment: These results are not intended [...] following therapy that affects renal tubular secretion. BUN/Creatinine Ratio 21(H) 9 - 20 07/14/2024 6:08 AM EDT [facility] Calcium 8.5(L) 8.6 - 10.4 mg/dL 07/14/2024 6:08 AM EDT [facility] BLOOD SPECIMEN / Unknown 07/14/2024 6:08 AM EDT 07/14/2024 6:12 AM EDT us Marnie Martin INSPECTOR PUBLICATIONS - FIELD ADMINISTRATIVE ASSISTANT CHEMISTRY ORDERABLES Fi nal Result [facility] [address] [place] [address] * EKG Rhythm Strip (07/14/2024 6:00 AM EDT) 07/14/2024 6:00 AM EDT Narrative [facility] - 07/14/2024 6:32 AM EDT us Unknown Provider Result ECG ORDERABLES Final Re sult [facility] [address] [place] [address] * XR CHEST (2 VW) (07/11/2024 10:52 PM EDT) Anatomical Region Laterality Modality Chest Computed Radiogr aphy Chest 07/11/2024 11:0 2 PM EDT Impressions 07/11/2024 11:03 PM EDT No acute cardiopulmonary process. Narrative 07/11/2024 11:03 PM EDT EXAMINATION: TWO XRAY VIEWS OF THE CHEST 07/11/2024 10:51 pm COMPARISON: Chest radiograph 03/26/2024 HISTORY: ORDERING SYSTEM PROVIDED HISTORY: Confusion/AMS TECHNOLOGIST PROVIDED HISTORY: (Select if patient is in hallway or waiting room) Confusion/AMS FINDINGS: Lungs: Clear Pleura: No effusion or pneumothorax. Cardiomediastinal silhouette: Normal contours Bones: No acute osseous findings. Soft tissues: Normal. Procedure Note Jason Barker MD - 07/11/2024 EXAMINATION: TWO XRAY VIEWS OF THE CHEST 07/11/2024 10:51 pm COMPARISON: Chest radiograph 03/26/2024 HISTORY: ORDERING SYSTEM PROVIDED HISTORY: Confusion/AMS TECHNOLOGIST PROVIDED HISTORY: (Select if patient is in hallway or waiting room) Confusion/AMS FINDINGS: Lungs: Clear Pleura: No effusion or pneumothorax. Cardiomediastinal silhouette: Normal contours Bones: No acute osseous findings. Soft tissues: Normal. IMPRESSION: No acute cardiopulmonary process. Levi Dorsey MD IMG DIAGNOSTIC IMAGING OR DERABLES Final Result * (ABNORMAL) Urinalysis (07/11/2024 10:30 PM EDT) Color, UA Yellow Yellow 07/11/2024 10:30 PM [facility] Turbidity UA Clear Clear 07/11/2024 10:30 PM [facility] Glucose, Ur NEGATIVE NEGATIVE mg/dL 07/11/2024 10:30 PM [facility] Bilirubin, Urine NEGATIVE NEGATIVE 07/11/2024 10:30 PM [facility] Ketones, Urine NEGATIVE NEGATIVE mg/dL 07/11/2024 10:30 PM [facility] Specific [place], UA 1.025(H) 1.010 - 1.020 07/11/2024 10:30 PM [facility] Urine Hgb NEGATIVE NEGATIVE 07/11/2024 10:30 PM [facility] pH, Urine 6.0 5.0 - 9.0 07/11/2024 10:30 PM [facility] Protein, UA NEGATIVE NEGATIVE mg/dL 07/11/2024 10:30 PM EDT [facility] Urobilinogen, Urine Normal 0.0 - 1.0 EU/dL 07/11/2024 10:30 PM EDT [facility] Nitrite, Urine POSITIVE(A) NEGATIVE 07/11/2024 10:30 PM EDT [facility] Leukocyte Esterase, Urine SMALL(A) NEGATIVE 07/11/2024 10:30 PM EDT [facility] Urine URINE SPECIMEN / Unknown 07/11/2024 10:30 PM EDT 07/11/2024 10:31 PM EDT us Levi Dorsey MD URINE ORDERABLES Final Re sult Performing Organization Address City/[facility]/ZIP Co de Phone Number [facility] [address] [place] [address] * Culture, Blood 2 (07/11/2024 10:20 PM EDT) Specimen Description .BLOOD 07/11/2024 10:20 PM EDT [facility] Special Requests RT WRIST 7 ML 07/11/2024 10:20 PM EDT [facility] Culture NO GROWTH 5 DAYS 07/11/2024 10:20 PM EDT [facility] BLOOD SPECIMEN / Unknown 07/11/2024 10:20 PM EDT 07/11/2024 10:30 PM EDT us Levi Dorsey MD MICROBIOLOGY - GENERAL OR DERABLES Final Result Performing Organization Address [facility]/ZIP Co de Phone Number [facility] [address] [place] [address] * Blood Culture 1 (07/11/2024 10:15 PM EDT) Specimen Description .BLOOD 07/11/2024 10:15 PM EDT [facility] Special Requests RT HAND 4ML 07/11/2024 10:15 PM EDT [facility] Culture NO GROWTH 5 DAYS 07/11/2024 10:15 PM EDT [facility] BLOOD SPECIMEN / Unknown 07/11/2024 10:15 PM EDT 07/11/2024 10:29 PM EDT Levi Dorsey MD MICROBIOLOGY - GENERAL OR DERABLES Final Result Performing Organization Address City/[facility]/ZIP Co de Phone Number [facility] [address] [place] [address] * Lactic Acid (07/11/2024 10:15 PM EDT) Lactic Acid 0.8 0.5 - 2.2 mmol/L 07/11/2024 10:15 PM EDT [facility] Blood BLOOD SPECIMEN / Unknown 07/11/2024 10:15 PM EDT 07/11/2024 10:26 PM EDT us Levi Dorsey MD CHEMISTRY ORDERABLES Roya l Result Performing Organization Address City/[facility]/ZIP Co de Phone Number [facility] [address] [place] [address] * Lipid Panel (05/15/2024 1:47 PM EDT) Cholesterol, Total 122 0 - 199 mg/dL 05/15/2024 1:47 PM EDT [facility] Comment: Cholesterol Guidelines: <200 Desirable 200-240 Borderline >240 Undesirable HDL 80 >40 mg/dL 05/15/2024 1:47 PM EDT [facility] Comment: HDL Guidelines: <40 Undesirable 40-59 Borderline >59 Desirable LDL Cholesterol 34 0 - 100 mg/dL 05/15/2024 1:47 PM EDT [facility] Comment: LDL Guidelines: <100 Desirable 100-129 Near to/above Desirable 130-159 Borderline >159 Undesirable Direct (measured) LDL and calculated LDL are not interchangeable tests. Chol/HDL Ratio 1.5 05/15/2024 1:47 PM EDT [facility] Triglycerides 41 <150 mg/dL 05/15/2024 1:47 PM EDT [facility] Comment: Triglyceride Guidelines: <150 Desirable 150-199 Borderline 200-499 High >499 Very high Based on AHA Guidelines for fasting triglyceride, November 2011. VLDL 8 1 - 30 mg/dL 05/15/2024 1:47 PM EDT [facility] 05/15/2024 1:47 PM EDT 05/15/2024 1:48 PM EDT Molina Chang DO CHEMISTRY ORDERABLES Final R esult [facility] [address] [place] [address], [facility] [phone] [facility] [address] [place] [address], [facility] [phone] * DEXA Bone Density 2 Sites (12/07/2012 1:36 PM EDT) Anatomical Region Laterality Modality Other 12/07/2012 1:36 PM EDT Narrative 12/07/2012 3:11 PM EDT FINAL Procedure: TDD Dec 07 2012 1:36PM [id number] LUMBAR HIP COMBINATION DEXA Reason for Exam: [...] Valenzuela D.O. IMPRESSION: SEE ABOVE. Transcribed by: PSC on Dec 07 2012 3:11P Read by: QUINTON HICKS [id number] on Dec 07 2012 2:07P Electronically Signed by: DR. QUINTON HICKS on: Dec 07 2012 3:11P Procedure Note Quinton Hicks MD - 12/07/2012 FINAL Procedure: TDD Dec 07 2012 1:36PM [id number] LUMBAR HIP COMBINATIONDEXA Reason for Exam: ^screening [...] finaluntil reviewed and signed. Electronically Signed by Quintno Hicks M.D. 12/07/2012 03:11 P DP/jaelyn P P CC: ERWIN Valenzuela D.O. IMPRESSION: SEE ABOVE. Transcribed by: [facility] on Dec 07 2012 3:11P Read by: QUINTON HICKS [id number] on Dec 07 2012 2:07P Electronically Signed by: DR. QUINTON HICKS on: Dec 07 2012 3:11P Mckenzie Thao APRN - [facility] [place]EXA ORDERAB LES Edited Result - Final from Last 3 Months or Most Recently Relevant to Health Maintenance Insurance [facility] MEDICARE Advance Directives Documents on File Type Date Recorded Patient Valet Attendant Expl anation ACP-Do Not Resuscitate 04/05/2023 1:36 PM DNR-CCA * DNR-CCA (Latest Code Status on File) Date Activated Date Inactivated Comments 07/12/2024 1:44 AM 07/14/2024 4:07 PM * Full Code Date Activated Date Inactivated Comments 07/12/2024 1:41 AM 07/12/2024 1:44 AM * DNR-CCA Date Activated Date Inactivated Comments 04/05/2023 2:06 PM 04/05/2023 7:40 PM * Full Code Date Activated Date Inactivated Comments 04/04/2023 5:18 PM 04/05/2023 2:06 PM * Full Code Date Activated Date Inactivated Comments 09/02/2020 5:28 PM 09/05/2020 2:44 AM Healthcare Agents on File Name Relationship Healthcare Agent Relationship Communication Jose Palmer Spouse Primary Decision Maker Nely Bardales Grandchild Secondary Decision Maker Care Teams Supervisor Crack Off Relationship Specialty Start Date End Date Molina Chang DO [facility] [place] [id number] PCP - General 06/05/12
[2024-09-18 10:33] VITALS: BP 153/72; PULSE 63; TEMP 36.2; O2SAT 99
[2024-09-18 11:03] VITALS: BP 164/70; PULSE 66; O2SAT 99
[2024-09-18 11:04] VITALS: BP 159/70; PULSE 65; O2SAT 99
[2024-09-18] MEDS: LIDOCAINE HCL 2% 400 MG/20 ML MDV INJ (11:06)
[2024-09-18] MEDS: BUPIVACAINE HCL 0.25% PF 25 MG/10 ML VIAL 8 ML INJ (11:06)
--- NOTE | 2024-09-18 11:06 | W.PM.PROCNOT ---
Date of procedure: 09/18/24 Pre-op diagnosis: Pain due to thoracic spondylosis without myelopathy Post-op diagnosis: same as pre-op Procedure: Procedure: Bilateral T9-10, 10-11 medial branch block Medications: Bupivacaine 0.25% 6cc The patient was seen and examined in the preoperative holding area.? An informed consent was obtained and placed on the chart.? The patient was brought to the medical procedure unit and placed in the prone position.? A timeout was completed verifying correct patient, procedure site, positioning, plan, and special equipment.? Using aseptic technique, the needle was placed at left T9. Under direct fluoroscopic visualization a Quincke-tipped spinal needle was advanced to the junction of the superior articulating process with the transverse process at the designated medial branch segment.? Preceded by negative aspiration, the above-mentioned injectate was placed in 1 mL aliquots.? The procedure was repeated at left T10, 11.? The needle was removed and insertion site was covered. The same procedure, at the same levels, was completed on the right side. The patient was taken to the postprocedural recovery area and monitored for an appropriate length of time before found suitable for discharge in the company of a responsible adult. Anesthesia: Local Surgeon: Tahir Sparrow Pathology: none sent Condition: stable Disposition: no change
== END 2024-09-18 11:12 | disposition home or self-care (01) ==
PROVIDERS: Family Provider Internal Medicine; PCP Internal Medicine; Visit Provider Anesthesiology
DX: M47.814 Spondylosis without myelopathy or radiculopathy, thoracic region (principal); M54.6 Pain in thoracic spine; Z79.84 Long term (current) use of oral hypoglycemic drugs
CPT/HCPCS: 64490; 64491; J0665

== ENCOUNTER 2024-09-20 14:29 | Outpatient (OUT) | payer MEDICARE, SELFPAY ==
--- OUTSIDE RECORDS SUMMARY | 2024-09-20 14:31 | XMS_ITS | Clinical Summary ---
Author Organization [employer] Address [id number] [address] [place] [address] Care Team Providers Care Frame Stripper And Crusher Name Role Phone Bernardo Dillon DO, Charles [...] 10/09/2024 11/26/2017 Medical Devices Implanted Type Area Manufacturing Engineer Automotive Device Identifier Shelf Expiration Date Model / Serial / Lot Lens Mx60 20.5 - [id number] - [id number] Implanted:Qty: 1 on 08/24/2016 by Francisco Javier Paul MD at [facility] Lens Left: Eye [employer] 05/09/2019 MX60 23.5 / [id number] / [id number] Description:MX60 23.5D perM. [place] Insurance [employer] MEDICARE Care Teams Frame Stripper And Crusher Relationship Specialty Start Date End Date Molina Chang Jr., DO [address] [place] [id number] PCP - General Internal Medicine 08/24/16
--- OUTSIDE RECORDS SUMMARY | 2024-09-20 14:32 | XMS_ITS | Encounter Summary ---
Author Organization [facility] Address [address], [address] [place] [address] Care Team Providers Care Barrel Roller Name Role Phone Molina Chang DO Primary Care Provider + [phone] Encounter Details Date Type Department Care Team (Late st Contact Info) Description 08/31/2024 Orders Only [facility] Part of [address] [place] [address] Molina Chang DO [address] [place] [phone] Social History Tobacco Use Types Packs/Day Years Used Date Smoking Tobacco: Never Smokeless Tobacco: Never Alcohol Use Standard Drinks/Week Comments No 0 (1 standard drink = 0.6 oz pur e alcohol) [facility] Utilities Answer Date Recorded In the past 12 months has [employer] electric, gas, oil, or water company threatened [...] place to sleep or slept in a custodial (including now)? No 04/04/2023 Housing Stability Vital Sign Answer Alejandro e Recorded In the last 12 months, was t here a time when you were not able to pay the mortgage or rent on time? No 07/12/2024 In the past 12 months, how m any times have you moved where you were living? 0 07/12/2024 At any time in the past 12 [facility], were you homeless or living in a custodial (including now)? No 07/12/2024 Interpersonal Safety ([facility] HRSN) Answer Date Recorded How often [...] Description 11/27/2024 11:20 AM EDT Office Visit [facility] Part [address] [place] [address] Lorenzo Vang MD [address] [place] [address] [address] [place] [address] 3 month follow up; TIA 01/24/2025 10:20 AM EST Office Visit [facility] Part [address] [address] Alissa Marx MD [address] [place] [address] [place] [address] 6 month follow up documented as of [...] documented as of this encounter Care Teams Barrel Roller Relationship Specialty Start Date End Date Molina Chang DO [address] [place] [address] PCP - General 06/05/12 documented as of this encounter
--- OUTSIDE RECORDS SUMMARY | 2024-09-20 14:32 | XMS_ITS | Encounter Summary ---
Author Organization [facility] Address [address], [address] [place] [address] Care Team Providers Care Credit Underwriter Name Role Phone Molina Chang DO Primary Care Provider + [phone] Encounter Details Date Type Department Care Team (Late st Contact Info) Description 07/26/2024 Results Follow-Up [facility] Part of [address] [phone] Apurva Vu, [employer] PROPRIETOR - USER INTERFACE ENGINEER [address] [place] [id number] Social History Tobacco Use Types Packs/Day Years Used Date Smoking Tobacco: Never Smokeless Tobacco: Never Alcohol Use Standard Drinks/Week Comments No 0 (1 standard drink = 0.6 oz pur e alcohol) [facility] Utilities Answer Date Recorded In the past 12 months has [employer], gas, oil, or water company threatened to [...] place to sleep or slept in a usp (including now)? No 04/04/2023 Housing Stability Vital Sign Answer Alejandro e Recorded In the last 12 months, was t here a time when you were not able to pay the mortgage or rent on time? No 07/12/2024 In the past 12 months, how m any times have you moved where you were living? 0 07/12/2024 At any time in the past 12 m [facility], were you homeless or living in a usp (including now)? No 07/12/2024 Interpersonal Safety ([facility] HRSN) Answer Date Recorded How often does [...] Description 11/27/2024 11:20 AM EDT Office Visit [facility] Part of [address] [place] [address] Lorenzo Vang MD [address] [place] [address] [address] [place] [address] 3 month follow up; TIA 01/24/2025 10:20 AM EST Office Visit [facility] Part of [address] [phone] Alissa Marx MD [address] [place] [address] [place] [address] 6 month follow up documented as of this encounter Visit Diagnoses Not on filedocumented in this encounter Additional Health Concerns Assessment Noted Time A fall risk assessment has been complete d for the patient 01/26/2018 8:32 AM EST A Body Mass Index follow-up plan has been documented for the patient 03/03/2021 1:30 PM EST documented as of this encounter Care Teams Credit Underwriter Relationship Specialty Start Date End Date Molina Chang DO [address] [place] [phone] PCP - General 06/05/12 documented as of this encounter
--- OUTSIDE RECORDS SUMMARY | 2024-09-20 14:32 | XMS_ITS | Clinical Summary ---
Author Organization [facility] Address [address], [address] [place] [address] Care Team Providers Care Factory Laborer Name Role Phone Molina Chang Primary Care Provider [phone] Allergies Active Allergy Reactions Criticality Noted Date [...] Department Care Team Description 08/31/2024 Orders Only [facility] Part [address] [place] [address] Molina Chang DO 08/28/2024 8:40 AM EDT Office Visit [facility] Part [address] [place] [address] Lorenzo Vang MD Speech disturbance, unspecified type (Primary Dx); 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) 08/18/2024 12:58 AM EDT - 08/18/2024 5:03 AM EDT Emergency [facility] Emergency Department [address] [place] [id number] Shabnam James MD General weakness (Primary Dx); Neck strain, initial encounter Discharge Disposition: Home or Self Care 08/18/2024 Travel 07/26/2024 10:33 AM EDT - 07/28/2024 11:59 PM EDT Hospital Encounter [facility] Radiology [address] [place] [address] Thoracic spondylosis without myelopathy Discharge Disposition: Home or Self Care 07/26/2024 10:29 AM EDT - 07/26/2024 10:32 AM EDT Hospital Encounter [facility] [address] [place] [phone] Lower extremity edema; Lightheaded; Dizziness; History of TIA (transient ischemic attack); Cerebral arterial aneurysm; Essential hypertension; Mixed hyperlipidemia; TIA (transient ischemic attack); Complicated UTI (urinary tract infection) Discharge Disposition: Home or Self Care 07/26/2024 Results Follow-Up [facility] Part of [address] [address] Apurva Vu APRN - CNP 07/26/2024 Transcribe Orders [facility] Admitting [address] [place] [address] Symone Bales APRN - CNP Thoracic spondylosis without myelopathy (Primary Dx) 07/19/2024 9:00 AM EDT Office Visit [facility] Part of [address] [address] Apurva Vu APRN - KERRY Lower extremity edema (Primary Dx); Lightheaded; Dizziness; History of TIA (transient ischemic attack); TIA (transient ischemic attack); Cerebral arterial aneurysm; Essential hypertension; Mixed hyperlipidemia 07/12/2024 Travel 07/11/2024 9:56 PM EDT - 07/14/2024 2:01 PM EDT Hospital Encounter [facility]G [address] [place] [address] Levi Dorsey MD Iacob, Stefan, MD Transient [...] 0.6 oz pur e alcohol) [facility] Utilities Answer Date Recorded In the past [...] place to sleep or slept in a mcc (including now)? No 04/04/2023 Housing Stability Vital Sign Answer Alejanrdo e Recorded In the last 12 months, was t here a time when you were not able to pay the mortgage or rent on time? No 07/12/2024 In the past 12 months, how m any times have you moved where you were living? 0 07/12/2024 At any time in the past 12 m [facility], were you homeless or living in a mcc (including now)? No 07/12/2024 Interpersonal Safety ([facility] HRSN) Answer Date Recorded How often does [...] Description 11/27/2024 11:20 AM EDT Office Visit [facility] [address] [place] [phone] Lorenzo Vang MD [address] [place] [address] [address] [place] [address] 3 month follow up; TIA 01/24/2025 10:20 AM EST Office Visit [facility] Part [facility] [address] [place] [address] Alissa Marx MD [address] [place] [address] [place] [address] 6 month follow up Health Maintenance [...] this topic Medical Devices Implanted Type Area Spinning Frame Fixer Device Identifier Shelf Expiration Date Model / Serial / Lot Lens Iol Envista Mx60 25.0d - [id number] Implanted:Qty: 1 on 12/20/2017 by Rocky Dee DO at [facility] Right: Eye [employer]OMB-PMM 09/08/2019 MX60 25.0D / [id number] / Procedures Procedure Name Priority Date/Time Associated [...] UA Yellow Yellow 08/18/2024 2:50 AM EDT [facility] Turbidity UA Clear Clear 08/18/2024 2:50 AM EDT [facility] Glucose, Ur NEGATIVE NEGATIVE mg/dL 08/18/2024 2:50 AM EDT [facility] Bilirubin, Urine NEGATIVE NEGATIVE 08/18/2024 2:50 AM EDT [facility] Ketones, Urine NEGATIVE NEGATIVE mg/dL 08/18/2024 2:50 AM EDT [facility] Specific [place], UA 1.010 1.010 - 1.020 08/18/2024 2:50 AM EDT [facility] Urine Hgb NEGATIVE NEGATIVE 08/18/2024 2:50 AM EDT [facility] pH, Urine 6.0 5.0 - 9.0 08/18/2024 2:50 AM EDT [facility] Protein, UA NEGATIVE NEGATIVE mg/dL 08/18/2024 2:50 AM EDT [facility] Urobilinogen, Urine Normal 0.0 - 1.0 EU/dL 08/18/2024 2:50 AM EDT [facility] Nitrite, Urine NEGATIVE NEGATIVE 08/18/2024 2:50 AM EDT [facility] Leukocyte Esterase, Urine NEGATIVE NEGATIVE 08/18/2024 2:50 AM T [facility] Urine 08/18/2024 2:50 AM EDT 08/18/2024 2:54 AM EDT us Shabnam James MD URINE ORDERABLES Final Result [facility] [address] [phone] * Microscopic Urinalysis (08/18/2024 2:50 AM EDT) Only the most recent of3 resultswithin the time period is included. WBC, UA 0 TO 2 0 - 5 /HPF 08/18/2024 2:50 AM EDT [facility] RBC, UA 0 TO 2 0 - 2 /HPF 08/18/2024 2:50 AM EDT [facility] Epithelial Cells, UA 0 TO 2 0 - 25 /HPF 08/18/2024 2:50 AM EDT [facility] 08/18/2024 2:50 AM EDT 08/18/2024 2:54 AM EDT Shabnam James MD URINE ORDERABLES Final Result Performing Organization Address [facility]/ZIP Co de Phone Number [facility] [address] [place] [address] * (ABNORMAL) Troponin (08/18/2024 2:50 AM EDT) Only the most recent of4 resultswithin the time period is included. Troponin, High Sensitivity 28(H) 0 - 14 ng/L 08/18/2024 2:50 AM EDT [facility] Comment:High Sensitivity Tro ponin values cannot be compared with other Troponin methodologies. Blood BLOOD SPECIMEN / Unknown 08/18/2024 2:50 AM EDT 08/18/2024 2:53 AM EDT Shabnam James MD CHEMISTRY ORDERABLES Final Resul t Performing Organization Address City/[facility]/ZIP Co de Phone Number [facility] [address] [place] [address] * XR CHEST 1 VIEW (08/18/2024 2:22 [...] marked degenerative disc disease at C5-C6 and C6-K3jrgidc, without significant stenosis. Shabnam James MD IM [...] marked degenerative disc disease at C5-C6 and C6-W0tgkcui, without significant stenosis. Shabnam James MD [facility] CT ORDERABLES Final Result * (ABNORMAL) CBC with Auto Differential (08/18/2024 1:09 AM EDT) Only the most recent of6 resultswithin the time period is included. WBC 6.8 3.5 - 11.3 k/uL 08/18/2024 1:[address] [facility] RBC 3.63(L) 3.95 - 5.11 m/uL 08/18/2024 1:[address] [facility] Hemoglobin 11.0(L) 11.9 - 15.1 g/dL 08/18/2024 1:[address] [facility] Hematocrit 34.5(L) 36.3 - 47.1 % 08/18/2024 1:[address] [facility] MCV 95.0 82.6 - 102.9 fL 08/18/2024 1:[address] [facility] MCH 30.3 25.2 - 33.5 pg 08/18/2024 1:[address] [facility] MCHC 31.9 28.4 - 34.8 g/dL 08/18/2024 1:[address] [facility] RDW 13.6 11.8 - 14.4 % 08/18/2024 1:[address] [facility] Platelets 226 138 - 453 k/uL 08/18/2024 1:[address] [facility] MPV 10.2 8.1 - 13.5 fL 08/18/2024 1:[address] [facility] NRBC Automated 0.0 0.0 per 100 WBC 08/18/2024 1:[address] [facility] Neutrophils % 56 36 - 65 % 08/18/2024 1:[address] [facility] Lymphocytes % 25 24 - 43 % 08/18/2024 1:[address] [facility] Monocytes % 15(H) 3 - 12 % 08/18/2024 1:[address] [facility] Eosinophils % 4 1 - 4 % 08/18/2024 1:[address] [facility] Basophils % 0 0 - 2 % 08/18/2024 1:[address] [facility] Immature Granulocytes % 0 0 % 08/18/2024 1:[address] [facility] Neutrophils Absolute 3.77 1.50 - 8.10 k/uL 08/18/2024 1:[address] [facility] Lymphocytes Absolute 1.72 1.10 - 3.70 k/uL 08/18/2024 1:[address] [facility] Monocytes Absolute 1.03 0.10 - 1.20 k/uL 08/18/2024 1:[address] [facility] Eosinophils Absolute 0.27 0.00 - 0.44 k/uL 08/18/2024 1:[address] [facility] Basophils Absolute <0.03 0.00 - 0.20 k/uL 08/18/2024 1:09 AM EDT [facility] Immature Granulocytes Absolute 0.03 0.00 - 0.30 k/uL 08/18/2024 1:09 AM EDT [facility] Blood BLOOD SPECIMEN / Unknown 08/18/2024 1:09 AM EDT 08/18/2024 2:01 AM EDT us Shabnam James MD HEMATOLOGY ORDERABLES Final Resu lt [facility] [address] [place] [address] * TSH (08/18/2024 1:09 AM EDT) Only the most recent of2 resultswithin the time period is included. TSH 3.27 0.27 - 4.20 uIU/mL 08/18/2024 1:09 AM EDT [facility] Blood BLOOD SPECIMEN / Unknown 08/18/2024 1:09 AM EDT 08/18/2024 2:02 AM EDT us Shabnam James MD CHEMISTRY ORDERABLES Final Resul t Performing Organization Address [facility]/ZIP Co de Phone Number [facility] [address] [place] [address] * T4, Free (08/18/2024 1:09 AM EDT) T4 Free 1.2 0.92 - 1.68 ng/dL 08/18/2024 1:09 AM EDT [email or web address] Blood BLOOD SPECIMEN / Unknown 08/18/2024 1:09 AM EDT 08/18/2024 2:02 AM EDT us Shabnam James MD CHEMISTRY ORDERABLES Final Resul t Performing Organization Address City/[facility]/ZIP Co de Phone Number [facility] [address] [place] [address] [email or web address] [address] [place] [address] * (ABNORMAL) CMP (08/18/2024 1:09 AM EDT) Only the most recent of3 resultswithin the time period is included. Sodium 145 136 - 145 mmol/L 08/18/2024 1:[address] [facility] Potassium 4.3 3.7 - 5.3 mmol/L 08/18/2024 1:[address] [facility] Chloride 111(H) 98 - 107 mmol/L 08/18/2024 1:[address] [facility] CO2 19(L) 20 - 31 mmol/L 08/18/2024 1:[address] [facility] Anion Gap 15 9 - 16 mmol/L 08/18/2024 1:[address] [facility] Glucose 104(H) 74 - 99 mg/dL 08/18/2024 1:[address] [facility] BUN 30(H) 8 - 23 mg/dL 08/18/2024 1:[address] [facility] Creatinine 1.5(H) 0.50 - 0.90 mg/dL 08/18/2024 1:[address] [facility] Est, Glom Filt Rate 34(L) >60 mL/min/1.7 3m2 08/18/2024 1:[address] [facility] Comment: These results are not [...] 20 9 - 20 08/18/2024 1:[address] [facility] Calcium 9.2 8.6 - 10.4 mg/dL 08/18/2024 1:[address] [facility] Total Protein 6.7 6.6 - 8.7 g/dL 08/18/2024 1:09 AM EDT [facility] Albumin 4.2 3.5 - 5.2 g/dL 08/18/2024 1:09 AM EDT [facility] Albumin/Globulin Ratio 1.7 1.0 - 2.5 08/18/2024 1:09 AM EDT [facility] Total Bilirubin 0.3 0.00 - 1.20 mg/dL 08/18/2024 1:09 AM EDT [facility] Alkaline Phosphatase 85 35 - 104 U/L 08/18/2024 1:09 AM EDT [facility] ALT 15 10 - 35 U/L 08/18/2024 1:09 AM EDT [facility] AST 20 10 - 35 U/L 08/18/2024 1:09 AM EDT [facility] Blood BLOOD SPECIMEN / Unknown 08/18/2024 1:09 AM EDT 08/18/2024 2:01 AM EDT us Shabnam James MD CHEMISTRY ORDERABLES Final Resul t [facility] [id number] [phone] * EKG 12 Lead (08/18/2024 1:07 AM EDT) Only the most recent of2 resultswithin the time period is included. Pathologist [facility] Ventricular Rate 65 BPM MH N [facility] Atrial Rate 65 BPM [facility] P-R Interval 174 ms [facility] QRS Duration 90 ms [facility] Q-T Interval 400 ms [facility] QTc Calculation (Bazett) 416 ms [facility] P [place] 50 degrees [facility] R [place] 39 degrees [facility] T [place] 31 degrees [facility] 08/18/2024 1:07 AM EDT Narrative PN [facility] - 08/18/2024 4:10 PM EDT Normal [...] ECG ORDERABLES Final Result Performing Organization Address [facility] Co de Phone Number [facility] * Glucose, Whole Blood (08/18/2024 1:02 AM EDT) [facility] POC Glucose 97 74 - 100 mg/dL 08/18/2024 1:02 AM EDT [facility] 08/18/2024 1:02 AM EDT 08/18/2024 1:09 AM EDT Shabnam James MD CHEMISTRY ORDERABLES Final Resul t Performing Organization Address [facility] Co de Phone Number [facility] [address] [phone] * XR THORACIC SPINE (2 VIEWS) (07/26/2024 [...] - 450 pg/mL 07/26/2024 10:45 AM EDT [facility] 07/26/2024 10:4 5 AM EDT 07/26/2024 10:46 AM EDT us Molina Chang DO CHEMISTRY ORDERABLES Final R esult [facility] [id number] [phone] * Culture, Urine (07/26/2024 10:44 AM EDT) Only the most recent of2 resultswithin the time period is included. Specimen Description .CLEAN CATCH URINE 07/26/2024 10:44 AM T [facility] Special Requests Site: Urine 07/26/2024 10:44 AM EDT [facility] Culture NO GROWTH 07/26/2024 10:44 AM EDT [facility] Urine URINE SPECIMEN / Unknown 07/26/2024 10:44 AM EDT 07/26/2024 10:45 AM EDT Steven Izaguirre MD MICROBIOLOGY - GENERAL ORDERABLE S Final Result [facility] [address] [place] [address], [facility] [phone] [id number] [place] [address], [facility] [phone] * (ABNORMAL) Basic Metabolic Panel w/ Reflex to MG (07/14/2024 6:08 AM EDT) Only the most recent of3 resultswithin the time period is included. Sodium 143 136 - 145 mmol/L 07/14/2024 6:[address] [facility] Potassium 4.1 3.7 - 5.3 mmol/L 07/14/2024 6:[address] [facility] Chloride 113(H) 98 - 107 mmol/L 07/14/2024 6:[address] [facility] CO2 20 20 - 31 mmol/L 07/14/2024 6:[address] [facility] Anion Gap 10 9 - 16 mmol/L 07/14/2024 6:[address] [facility] Glucose 93 74 - 99 mg/dL 07/14/2024 6:[address] [facility] BUN 19 8 - 23 mg/dL 07/14/2024 6:[address] [facility] Creatinine 0.9 0.50 - 0.90 mg/dL 07/14/2024 6:[address] [facility] Est, Glom Filt Rate 61 >60 mL/min/1.7 3m2 07/14/2024 6:08 AM EDT [facility] Comment: These results are not intended [...] 9 - 20 07/14/2024 6:08 AM EDT [facility] Calcium 8.5(L) 8.6 - 10.4 mg/dL 07/14/2024 6:08 AM EDT [facility] BLOOD SPECIMEN / Unknown 07/14/2024 6:08 AM EDT 07/14/2024 6:12 AM EDT us Marnie Martin DRAPERY SUPERVISOR - SENIOR JAVA WEB DEVELOPER CHEMISTRY ORDERABLES Fi nal Result [facility] [address] [place] [address] * EKG Rhythm Strip (07/14/2024 6:00 AM EDT) 07/14/2024 6:00 AM EDT Narrative [facility] - 07/14/2024 6:32 AM EDT us Unknown Provider Result ECG ORDERABLES Final Re sult [facility] [address] [place] [address] * XR CHEST (2 VW) (07/11/2024 10:52 [...] Color, UA Yellow Yellow 07/11/2024 10:[address] [facility] Turbidity UA Clear Clear 07/11/2024 10:[address] [facility] Glucose, Ur NEGATIVE NEGATIVE mg/dL 07/11/2024 10:[address] [facility] Bilirubin, Urine NEGATIVE NEGATIVE 07/11/2024 10:[address] [facility] Ketones, Urine NEGATIVE NEGATIVE mg/dL 07/11/2024 10:[address] [facility] Specific [place], UA 1.025(H) 1.010 - 1.020 07/11/2024 10:[address] [facility] Urine Hgb NEGATIVE NEGATIVE 07/11/2024 10:[address] [facility] pH, Urine 6.0 5.0 - 9.0 07/11/2024 10:[address] [facility] Protein, UA NEGATIVE NEGATIVE mg/dL 07/11/2024 10:30 PM EDT [facility] Urobilinogen, Urine Normal 0.0 - 1.0 EU/dL 07/11/2024 10:30 PM EDT [facility] Nitrite, Urine POSITIVE(A) NEGATIVE 07/11/2024 10:30 PM EDT [facility] Leukocyte Esterase, Urine SMALL(A) NEGATIVE 07/11/2024 10:30 PM EDT [facility] Urine URINE SPECIMEN / Unknown 07/11/2024 10:30 PM EDT 07/11/2024 10:31 PM EDT us Levi Dorsey MD URINE ORDERABLES Final Re sult Performing Organization Address City/[facility]/ZIP Co de Phone Number [facility] [address] [place] [address] * Culture, Blood 2 (07/11/2024 10:20 PM EDT) Specimen Description .BLOOD 07/11/2024 10:20 PM EDT [facility] Special Requests RT WRIST 7 ML 07/11/2024 10:20 PM EDT [facility] Culture NO GROWTH 5 DAYS 07/11/2024 10:20 PM EDT [facility] BLOOD SPECIMEN / Unknown 07/11/2024 10:20 PM EDT 07/11/2024 10:30 PM EDT us Levi Dorsey MD MICROBIOLOGY - GENERAL OR DERABLES Final Result Performing Organization Address [facility]/ZIP Co de Phone Number [facility] [address] [place] [address] * Blood Culture 1 (07/11/2024 10:15 PM EDT) Specimen Description .BLOOD 07/11/2024 10:15 PM EDT [facility] Special Requests RT HAND 4ML 07/11/2024 10:15 PM EDT [facility] Culture NO GROWTH 5 DAYS 07/11/2024 10:15 PM EDT [facility] BLOOD SPECIMEN / Unknown 07/11/2024 10:15 PM EDT 07/11/2024 10:29 PM EDT Levi Dorsey MD MICROBIOLOGY - GENERAL OR DERABLES Final Result Performing Organization Address City/[facility]/ZIP Co de Phone Number [facility] [address] [place] [address] * Lactic Acid (07/11/2024 10:15 PM EDT) Lactic Acid 0.8 0.5 - 2.2 mmol/L 07/11/2024 10:15 PM EDT [facility] Blood BLOOD SPECIMEN / Unknown 07/11/2024 10:15 PM EDT 07/11/2024 10:26 PM EDT us Levi Dorsey MD CHEMISTRY ORDERABLES Roya l Result Performing Organization Address City/[facility]/ZIP Co de Phone Number [facility] [address] [place] [address] * Lipid Panel (05/15/2024 1:47 PM EDT) Cholesterol, Total 122 0 - 199 mg/dL 05/15/2024 1:47 PM EDT [facility] Comment: Cholesterol Guidelines: <200 Desirable 200-240 Borderline >240 Undesirable HDL 80 >40 mg/dL 05/15/2024 1:47 PM EDT [facility] Comment: HDL Guidelines: <40 Undesirable 40-59 Borderline >59 Desirable LDL Cholesterol 34 0 - 100 mg/dL 05/15/2024 1:47 PM EDT [facility] Comment: LDL Guidelines: <100 Desirable 100-129 Near to/above Desirable 130-159 Borderline >159 Undesirable Direct (measured) LDL and calculated LDL are not interchangeable tests. Chol/HDL Ratio 1.5 05/15/2024 1:47 PM EDT [facility] Triglycerides 41 <150 mg/dL 05/15/2024 1:47 PM EDT [facility] Comment: Triglyceride Guidelines: <150 Desirable 150-199 Borderline 200-499 High >499 Very high Based on AHA Guidelines for fasting triglyceride, November 2011. VLDL 8 1 - 30 mg/dL 05/15/2024 1:47 PM EDT [facility] 05/15/2024 1:47 PM EDT 05/15/2024 1:48 PM EDT Molina Chang DO CHEMISTRY ORDERABLES Final R esult [facility] [address] [place] [address], [facility] [phone] [facility] [address] [place] [address], [facility] [phone] * DEXA Bone Density 2 Sites (12/07/2012 1:36 PM EDT) Anatomical Region Laterality Modality Other 12/07/2012 1:36 PM EDT Narrative 12/07/2012 3:11 PM EDT FINAL Procedure: TDD Dec 07 2012 1:36PM [id number] LUMBAR HIP COMBINATION DEXA Reason for Exam: [...] 07 2012 3:11P Read by: QUINTON HICKS [id number] on Dec 07 2012 2:07P Electronically Signed by: DR. QUINTON HICKS on: Dec 07 2012 3:11P Procedure Note Quinton Hicks MD - 12/07/2012 FINAL Procedure: TDD Dec 07 2012 1:36PM [id number] LUMBAR HIP COMBINATIONDEXA Reason for Exam: ^screening [...] Valenzuela D.O. IMPRESSION: SEE ABOVE. Transcribed by: [facility] on Dec 07 2012 3:11P Read by: QUINTON HICKS [id number] on Dec 07 2012 2:07P Electronically Signed by: DR. QUINTON HICKS on: Dec 07 2012 3:11P Mckenzie Thao APRN - [facility] [place] DEXA ORDERAB LES Edited Result - Final from Last 3 Months or Most Recently Relevant to Health Maintenance Insurance [facility] MEDICARE Advance Directives Documents on File Type Date Recorded Patient Saw Edge Fuser Circular Expl anation ACP-Do Not Resuscitate 04/05/2023 1:36 [...] [place] Grandchild Secondary Decision Maker Care Teams Factory Laborer Relationship Specialty Start Date End Date Molina Chang DO [facility] [place] [id number] PCP - General 06/05/12
--- NOTE | 2024-09-20 14:44 | PM.CN ---
Consult Note: HPI Data of Consult Patient: known to practice within the last 3 years Consult date: 08/16/24 Requesting Physician: Symone Bales NP Primary Care Provider: RICHIE RAMOS DO Family Provider: RICHIE RAMOS DO Consult Narrative Reason for consult: f/u Narrative: Danielle Ash an 83 year old female presents for evaluation of chronic middle and low back pain. has failed to benefit from >6 weeks of PT/provider guided HEP, heat, ice, tylenol, NSAIDs. Prior imaging consistent with lumbar spondylosis, lumbar DDD, and lumbar stenosis. pt utilizes baclofen and tylenol with mild relief. since last visit underwent bilateral T9-10 T10-11 MBB #1 with >80% improvement in pain and functional ability while anesthetized, preop pain up to 11/17 post op pain 02/17. cc:: CC: Symone Bales NP [facility] Medical History (Updated 06/28/24 @ 13:08 by Symone Bales NP) Low back pain ?M54.50 - Low back pain, unspecified (ICD-10) Heartburn ?R12 - Heartburn (ICD-10) Acid reflux ?K21.9 - Gastro-esophageal reflux disease without esophagitis (ICD-10) Obesity ?E66.9 - Obesity, unspecified (ICD-10) Asthma ?J45.909 - Unspecified asthma, uncomplicated (ICD-10) Irregular heart beat ?I49.9 - Cardiac arrhythmia, unspecified (ICD-10) Hypertension ?I10 - Essential (primary) hypertension (ICD-10) Surgical History History of cholecystectomy ?Z90.49 - Acquired absence of other specified parts of digestive tract (ICD-10) H/O foot surgery ?Z98.890 - Other specified postprocedural states (ICD-10) H/O carpal tunnel repair ?Z98.890 - Other specified postprocedural states (ICD-10) H/O: hysterectomy ?Z90.710 - Acquired absence of both cervix and uterus (ICD-10) Meds Home Medications and Allergies Home Medications ?Medication ?Instructions ?Recorded ?Confirmed ?Type aspirin 81 mg capsule 81 mg PO DAILY 03/09/24 09/18/24 History atorvastatin 40 mg tablet 40 mg PO DAILY 03/09/24 09/18/24 History calcium 500 mg tablet mg 03/09/24 History cetirizine 5 mg tablet 5 mg PO BID PRN allergy symptoms 03/09/24 09/18/24 History cholecalciferol (vitamin D3) 50 2,000 unit PO DAILY 03/09/24 09/18/24 History mcg (2,000 unit) capsule magnesium 200 mg tablet 200 mg PO DAILY 03/09/24 09/18/24 History metformin 500 mg tablet 500 mg PO DAILY 03/09/24 09/18/24 History montelukast 10 mg tablet 10 mg PO DAILY 03/09/24 09/18/24 History (Singulair) spironolactone 25 mg tablet 25 mg PO BID 03/09/24 09/18/24 History gabapentin 100 mg capsule mg 09/18/24 History Allergies Allergy/AdvReac Type Severity Reaction Status Date / Time morphine AdvReac Mild itch Verified 09/18/24 10:38 Exam Constitutional Documenting provider has reviewed patient's vital signs: yes Common normals: no apparent distress, oriented x3, healthy appearing, alert and well nourished General appearance: cooperative HENOR Common normals: normocephalic, hearing grossly normal bilaterally and moist oral mucous membranes Head and scalp: normocephalic Eye Common normals: PERRL Pupil: PERRL Neck & C-Spine Common normals: full ROM General: normal visual inspection Chest Common normals: inspection of chest normal Respiratory Common normals: normal respiratory effort, no retractions and no use of accessory muscles Back & Pelvis Thoracic spine/upper back: ROM limited, pain with ROM and thoracic spinal tenderness T-spine tenderness location: T7, T8, T9, T10, T11 and T12; no paraspinal muscle tenderness Lumbar spine/lower back: ROM limited and straight leg raise negative bilaterally; no pain with ROM Sacroiliac joints: SI joints normal Other: positive facet loading and diffuse thoracic pain Extremity Common normals: normal to inspection and full ROM Neuro Common normals: oriented x3 Sensorium/orientation: alert Psych Common normals: mental status grossly normal, thought process normal, cooperative, affect normal, speech normal and activity/motor behavior normal Speech: normal speech Thought process: normal thought process Results Additional Findings Additional findings: If on a controlled substance or opioids, I have checked an [place] report on this patient and there are no aberrancies noted in the prescribing history.??If on a controlled substance or opioid a drug screen was completed and reviewed within the last year, and if there has not been a drug screen completed we ordered one today to monitor higher risk, state monitored pain medication use. As part of providing excellent, safe, comprehensive care, the following was completed at our patient's visit: 1. A medication reconciliation and review to ensure accurate knowledge of current/active medications, including asking our patients to inform us about any jnkz-gck-bcharnm medications or herbal remedies/nutritional supplements/alternative remedies. 2. A review to specifically ensure our patients have had annual screening for screening for depression, screening for tobacco use, and screening for unhealthy alcohol use. For concerning screenings had a discussion with the patient, provided patient education, and recommended follow-up with primary care provider when appropriate. If patient noted with a risk of falling, they received education on strength, gait, and balance training to prevent future risk of falling. Portions of this note may have been carried over from the previous visit and updated as appropriate. Please note this office utilizes paper charting in addition to the electronic medical record. A list of current medications, vitals, and PMH is available there as the clinical staff outside of myself do not have access to [employer] charting during the clinic day operations. As part of providing quality comprehensive care the current medications, vitals, and PMH were reviewed in the paper chart. Assessment and Plan Assessment and Plan (1) Thoracic spondylosis: Assessment and Plan: The Oswestry Disability Index was completed, and the patient scored a 33%.? The patient noted the following:?? moderate to severe pain impacting ADLs, standing, sitting, walking, sleeping, social life, and travel We discussed the risks and benefits of the procedure with the patient, and we are NOT planning on using sedation as outlined in the guidelines from Medicare unless there is a documented reason that sedation would be strongly recommended.?? ?The procedure will be completed with fluoroscopic guidance.? (2) Scoliosis of thoracolumbar spine: (3) Lumbar spondylosis: (4) Lumbar degenerative disc disease: Plan 83 year old female with chronic thoracic and lumbar pain secondary to degenerative changes unresponsive to > 6 weeks of HEP/PT, heat, ice, tylenol, motrin. pt has found significant benefit to lumbar interventional therapy. will trial bilateral T9-10 T11-12 MBB x2 in consideration of RFA for axial facet mediated pain. f/u after each MBB
== END 2024-09-20 14:30 | disposition home or self-care (01) ==
LOC: PM 14:30
PROVIDERS: Family Provider Internal Medicine; PCP Internal Medicine; Visit Provider Nurse Practitioner
DX: M47.814 Spondylosis without myelopathy or radiculopathy, thoracic region (principal); M41.85 Other forms of scoliosis, thoracolumbar region; M47.816 Spondylosis without myelopathy or radiculopathy, lumbar region; M51.369 Other intervertebral disc degeneration, lumbar region without mention of lumbar back pain or lower extremity pain
CPT/HCPCS: G0463

== ENCOUNTER 2024-10-02 09:04 | Day surgery (SDC) | payer MEDICARE, SELFPAY ==
--- OUTSIDE RECORDS SUMMARY | 2024-10-02 09:07 | XMS_ITS | Clinical Summary ---
Author Organization [facility] [facility] Address [id number] [address] [place] [address] Care Team Providers Care Appellate Court Judge Name Role Phone Bernardo Dillon DO, Charles [...] 10/09/2024 11/26/2017 Medical Devices Implanted Type Area Tester Operator Helper Device Identifier Shelf Expiration Date Model / Serial / Lot Lens Mx60 20.5 - [id number] - [id number] Implanted:Qty: 1 on 08/24/2016 by Francisco Javier Paul MD at [facility] Lens Left: Eye [employer] 05/09/2019 MX60 23.5 / [id number] Description:MX60 23.5D perM. [employer] Insurance [employer] MEDICARE Care Teams Appellate Court Judge Relationship Specialty Start Date End Date Molina Chang Jr., DO [address] [place] [id number] PCP - General Internal Medicine 08/24/16
--- OUTSIDE RECORDS SUMMARY | 2024-10-02 09:08 | XMS_ITS | Encounter Summary ---
Author Organization [facility] Address [address], [address] [place] [address] Care Team Providers Care Aquaculture Worker Name Role Phone Molina Chang DO Primary Care Provider + [phone] Encounter Details Date Type Department Care Team (Late st Contact Info) Description 07/26/2024 Results Follow-Up [facility] Part of [address] [phone] Apurva Vu, MEDIA SALES CONSULTANT - CONSTRUCTION SALES MANAGER [address] [place] [phone] Social History Tobacco Use Types Packs/Day Years Used Date Smoking Tobacco: Never Smokeless Tobacco: Never Alcohol Use Standard Drinks/Week Comments No 0 (1 standard drink = 0.6 oz pur e alcohol) [facility] Utilities Answer Date Recorded In the past 12 months has [place], gas, oil, or water company threatened to [...] place to sleep or slept in a halfway (including now)? No 04/04/2023 Housing Stability Vital Sign Answer Alejandro e Recorded In the last 12 months, was t here a time when you were not able to pay the mortgage or rent on time? No 07/12/2024 In the past 12 months, how m any times have you moved where you were living? 0 07/12/2024 At any time in the past 12 m [facility], were you homeless or living in a halfway (including now)? No 07/12/2024 Interpersonal Safety ([facility] HRSN) Answer Date Recorded How often [...] Description 11/27/2024 11:20 AM EDT Office Visit [facility] Part of [address] [place] [address] Lorenzo Vang MD [address] [place] [address] [address] [place] [address] 3 month follow up; TIA 01/24/2025 10:20 AM EST Office Visit [facility] Part of [address] [phone] Alissa Marx MD [address] [place] [address] [place] [address] 6 month follow up documented as of this encounter Visit Diagnoses Not on filedocumented in this encounter Additional Health Concerns Assessment Noted Time A fall risk assessment has been complete d for the patient 01/26/2018 8:32 AM EST A Body Mass Index follow-up plan has been documented for the patient 03/03/2021 1:30 PM EST documented as of this encounter Care Teams Aquaculture Worker Relationship Specialty Start Date End Date Molina Chang DO [address] [place] [phone] PCP - General 06/05/12 documented as of this encounter
--- OUTSIDE RECORDS SUMMARY | 2024-10-02 09:08 | XMS_ITS | Clinical Summary ---
Author Organization [facility] Address [address], [address] [place] [address] Care Team Providers Care Fresco Artist Name Role Phone Molina Chang Primary Care [...] Intended supply: 90 days 90 capsule 2 Active Active Problems Problem Noted Date Diagnosed [...] Department Care Team Description 08/31/2024 Orders Only [facility] Part [address] [place] [address] Molina Chang DO 08/28/2024 8:40 AM EDT Office Visit [facility] [address] [place] [address] Lorenzo Vang MD Speech disturbance, unspecified type (Primary Dx); 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) ([facility]) 08/18/2024 12:58 AM EDT - 08/18/2024 5:03 AM EDT Emergency [facility] Emergency Department [address] [place] [phone] Shabnam James MD General weakness (Primary Dx); Neck strain, initial encounter Discharge Disposition: Home or Self Care 08/18/2024 Travel 07/26/2024 10:33 AM EDT - 07/28/2024 11:59 PM EDT Hospital Encounter [facility] Radiology [address] [place] [phone] Thoracic spondylosis without myelopathy Discharge Disposition: Home or Self Care 07/26/2024 10:29 AM EDT - 07/26/2024 10:32 AM EDT Hospital Encounter [facility] [address] [place] [phone] Lower extremity edema; Lightheaded; Dizziness; History of TIA (transient ischemic attack); Cerebral arterial aneurysm; Essential hypertension; Mixed hyperlipidemia; TIA (transient ischemic attack); Complicated UTI (urinary tract infection) Discharge Disposition: Home or Self Care 07/26/2024 Results Follow-Up [facility] Part of [address] [address] Apurva Vu APRN - CNP 07/26/2024 Transcribe Orders [facility] Admitting [address] [place] [address] Symone Bales APRN - CNP Thoracic spondylosis without myelopathy (Primary Dx) 07/19/2024 9:00 AM EDT Office Visit [facility] Part of [address] [address] Apurva Vu APRN - CNP Lower extremity edema (Primary Dx); Lightheaded; Dizziness; History of TIA (transient ischemic attack); TIA (transient ischemic attack); Cerebral arterial aneurysm; Essential hypertension; Mixed hyperlipidemia 07/12/2024 Travel 07/11/2024 9:56 PM EDT - 07/14/2024 2:01 PM EDT Hospital Encounter [facility] [address] [place] [address] [phone] Levi Dorsey MD Iacob, Stefan, MD Transient [...] = 0.6 oz pur e alcohol) [facility] Utilities Answer Date Recorded In the [...] any time in the past 12 m [facility], were you homeless or living in a correction (including now)? No 07/12/2024 Interpersonal Safety ([facility] HRSN) Answer Date Recorded How often [...] Description 11/27/2024 11:20 AM EDT Office Visit [facility] Part of [facility] [address] [place] [phone] Lorenzo Vang MD [address] [place] [address] [address] [place] [address] 3 month follow up; TIA 01/24/2025 10:20 AM EST Office Visit [facility] Part of [facility] [address] [place] [address] Alissa Marx MD [address] [place] [address] [place] [address] 6 month follow up Health Maintenance [...] this topic Medical Devices Implanted Type Area Java Web Engineer Device Identifier Shelf Expiration Date Model / Serial / Lot Lens Iol Envista Mx60 25.0d - [id number] Implanted:Qty: 1 on 12/20/2017 by Rocky Dee DO at [facility] Eye Right: Eye [employer] LOMB-PMM 09/08/2019 MX60 25.0D / [id number] / Procedures Procedure Name Priority Date/Time Associated [...] UA Yellow Yellow 08/18/2024 2:50 AM EDT [facility] Turbidity UA Clear Clear 08/18/2024 2:50 AM EDT [facility] Glucose, Ur NEGATIVE NEGATIVE mg/dL 08/18/2024 2:50 AM EDT [facility] Bilirubin, Urine NEGATIVE NEGATIVE 08/18/2024 2:50 AM EDT [facility] Ketones, Urine NEGATIVE NEGATIVE mg/dL 08/18/2024 2:50 AM EDT [facility] Specific Chandler, UA 1.010 1.010 - 1.020 08/18/2024 2:50 AM EDT [facility] Urine Hgb NEGATIVE NEGATIVE 08/18/2024 2:50 AM EDT [facility] pH, Urine 6.0 5.0 - 9.0 08/18/2024 2:50 AM EDT [facility] Protein, UA NEGATIVE NEGATIVE mg/dL 08/18/2024 2:50 AM [facility] Urobilinogen, Urine Normal 0.0 - 1.0 EU/dL 08/18/2024 2:50 AM T [facility] Nitrite, Urine NEGATIVE NEGATIVE 08/18/2024 2:50 AM EDT [facility] Leukocyte Esterase, Urine NEGATIVE NEGATIVE 08/18/2024 2:50 AM T [facility] Urine 08/18/2024 2:50 AM EDT 08/18/2024 2:54 AM EDT us Shabnam James MD URINE ORDERABLES Final Result [facility] [address] [id number] [phone] * Microscopic Urinalysis (08/18/2024 2:50 AM EDT) Only the most recent of3 resultswithin the time period is included. WBC, UA 0 TO 2 0 - 5 /HPF 08/18/2024 2:50 AM EDT [facility] RBC, UA 0 TO 2 0 - 2 /HPF 08/18/2024 2:50 AM EDT [facility] Epithelial Cells, UA 0 TO 2 0 - 25 /HPF 08/18/2024 2:50 AM EDT [facility] 08/18/2024 2:50 AM EDT 08/18/2024 2:54 AM EDT us Shabnam James MD URINE ORDERABLES Final Result Performing Organization Address [facility]/ZIP Co de Phone Number [facility] [address] [place] [address] * (ABNORMAL) Troponin (08/18/2024 2:50 AM EDT) Only the most recent of4 resultswithin the time period is included. Troponin, High Sensitivity 28(H) 0 - 14 ng/L 08/18/2024 2:50 AM EDT [facility] Comment:High Sensitivity Tro ponin values cannot be compared with other Troponin methodologies. Blood BLOOD SPECIMEN / Unknown 08/18/2024 2:50 AM EDT 08/18/2024 2:53 AM EDT us Shabnam James MD CHEMISTRY ORDERABLES Final Resul t [facility] [address] [place] [address] * XR CHEST 1 VIEW (08/18/2024 2:22 [...] process. 2. Borderline cardiomegaly. No CHF. Shabnam James MD IMG DIAGNOSTIC IMAGING ORDERABLE S Final Result * [...] marked degenerative disc disease at C5-C6 and C6-K2ehhcak, without significant stenosis. Shabnam James MD [facility] ORDERABLES Final Result * CTA HEAD [...] marked degenerative disc disease at C5-C6 and C6-X8tclxxq, without significant stenosis. Shabnam James MD IMG CT ORDERABLES Final Result * (ABNORMAL) CBC with Auto Differential (08/18/2024 1:09 AM EDT) Only the most recent of6 resultswithin the time period is included. WBC 6.8 3.5 - 11.3 k/uL 08/18/2024 1:09 AM [facility] RBC 3.63(L) 3.95 - 5.11 m/uL 08/18/2024 1:09 AM [facility] Hemoglobin 11.0(L) 11.9 - 15.1 g/dL 08/18/2024 1:09 AM [facility] Hematocrit 34.5(L) 36.3 - 47.1 % 08/18/2024 1:09 AM [facility] MCV 95.0 82.6 - 102.9 fL 08/18/2024 1:09 AM [facility] MCH 30.3 25.2 - 33.5 pg 08/18/2024 1:09 AM [facility] MCHC 31.9 28.4 - 34.8 g/dL 08/18/2024 1:09 AM [facility] RDW 13.6 11.8 - 14.4 % 08/18/2024 1:09 AM [facility] Platelets 226 138 - 453 k/uL 08/18/2024 1:09 AM [facility] MPV 10.2 8.1 - 13.5 fL 08/18/2024 1:09 AM [facility] NRBC Automated 0.0 0.0 per 100 WBC 08/18/2024 1:09 AM [facility] Neutrophils % 56 36 - 65 % 08/18/2024 1:09 AM [facility] Lymphocytes % 25 24 - 43 % 08/18/2024 1:09 AM [facility] Monocytes % 15(H) 3 - 12 % 08/18/2024 1:09 AM [facility] Eosinophils % 4 1 - 4 % 08/18/2024 1:09 AM [facility] Basophils % 0 0 - 2 % 08/18/2024 1:09 AM [facility] Immature Granulocytes % 0 0 % 08/18/2024 1:09 AM [facility] Neutrophils Absolute 3.77 1.50 - 8.10 k/uL 08/18/2024 1:09 AM [facility] Lymphocytes Absolute 1.72 1.10 - 3.70 k/uL 08/18/2024 1:09 AM [facility] Monocytes Absolute 1.03 0.10 - 1.20 k/uL 08/18/2024 1:09 AM [facility] Eosinophils Absolute 0.27 0.00 - 0.44 k/uL 08/18/2024 1:09 AM [facility] Basophils Absolute <0.03 0.00 - 0.20 k/uL 08/18/2024 1:09 AM [facility] Immature Granulocytes Absolute 0.03 0.00 - 0.30 k/uL 08/18/2024 1:09 AM EDT [facility] Blood BLOOD SPECIMEN / Unknown 08/18/2024 1:09 AM EDT 08/18/2024 2:01 AM EDT us Shabnam James MD HEMATOLOGY ORDERABLES Final Resu lt Performing Organization Address City/[facility]/ZIP Co de Phone Number [facility] [address] [place] [address] * TSH (08/18/2024 1:09 AM EDT) Only the most recent of2 resultswithin the time period is included. TSH 3.27 0.27 - 4.20 uIU/mL 08/18/2024 1:09 AM EDT [facility] Blood BLOOD SPECIMEN / Unknown 08/18/2024 1:09 AM EDT 08/18/2024 2:02 AM EDT us Shabnam James MD CHEMISTRY ORDERABLES Final Resul t Performing Organization Address City/[facility]/ZIP Co de Phone Number [facility] [address] [place] [address] * T4, Free (08/18/2024 1:09 AM EDT) T4 Free 1.2 0.92 - 1.68 ng/dL 08/18/2024 1:09 AM EDT [facility] Blood BLOOD SPECIMEN / Unknown 08/18/2024 1:09 AM EDT 08/18/2024 2:02 AM EDT us Shabnam James MD CHEMISTRY ORDERABLES Final Resul t [facility] [address] [place] [address] [facility] [address] [place] [address], [facility] [phone] * (ABNORMAL) CMP (08/18/2024 1:09 AM EDT) Only the most recent of3 resultswithin the time period is included. Sodium 145 136 - 145 mmol/L 08/18/2024 1:09 AM [facility] Potassium 4.3 3.7 - 5.3 mmol/L 08/18/2024 1:09 AM [facility] Chloride 111(H) 98 - 107 mmol/L 08/18/2024 1:09 AM [facility] CO2 19(L) 20 - 31 mmol/L 08/18/2024 1:09 AM [facility] Anion Gap 15 9 - 16 mmol/L 08/18/2024 1:09 AM [facility] Glucose 104(H) 74 - 99 mg/dL 08/18/2024 1:09 AM [facility] BUN 30(H) 8 - 23 mg/dL 08/18/2024 1:09 AM [facility] Creatinine 1.5(H) 0.50 - 0.90 mg/dL 08/18/2024 1:09 AM [facility] Est, Glom Filt Rate 34(L) >60 mL/min/1.7 3m2 08/18/2024 1:09 AM [facility] Comment: These results are not [...] 20 9 - 20 08/18/2024 1:09 AM [facility] Calcium 9.2 8.6 - 10.4 mg/dL 08/18/2024 1:09 AM [facility] Total Protein 6.7 6.6 - 8.7 g/dL 08/18/2024 1:09 AM [facility] Albumin 4.2 3.5 - 5.2 g/dL 08/18/2024 1:09 AM EDT [facility] Albumin/Globulin Ratio 1.7 1.0 - 2.5 08/18/2024 1:09 AM EDT [facility] Total Bilirubin 0.3 0.00 - 1.20 mg/dL 08/18/2024 1:09 AM EDT [facility] Alkaline Phosphatase 85 35 - 104 U/L 08/18/2024 1:09 AM EDT [facility] ALT 15 10 - 35 U/L 08/18/2024 1:09 AM EDT [facility] AST 20 10 - 35 U/L 08/18/2024 1:09 AM EDT [facility] Blood BLOOD SPECIMEN / Unknown 08/18/2024 1:09 AM EDT 08/18/2024 2:01 AM EDT Shabnam James MD CHEMISTRY ORDERABLES Final Resul t [facility] [address] [phone] * EKG 12 Lead (08/18/2024 1:07 AM EDT) Only the most recent of2 resultswithin the time period is included. Pathologist [facility] Ventricular Rate 65 BPM [facility] Atrial Rate 65 BPM [facility] P-R Interval 174 ms [facility] QRS Duration 90 ms [facility] Q-T Interval 400 ms [facility] QTc Calculation (Bazett) 416 ms [facility] P Loyal 50 degrees [facility] R Loyal 39 degrees [facility] T Loyal 31 degrees [facility] 08/18/2024 1:07 AM EDT Narrative [facility] - 08/18/2024 4:10 PM EDT [...] ECG ORDERABLES Final Result Performing Organization Address [facility] Co de Phone Number [facility] * Glucose, Whole Blood (08/18/2024 1:02 AM EDT) POC Glucose 97 74 - 100 mg/dL 08/18/2024 1:02 AM EDT [facility] 08/18/2024 1:02 AM EDT 08/18/2024 1:09 AM EDT Shabnam James MD CHEMISTRY ORDERABLES Final Resul t Performing Organization Address [facility] de Phone Number [facility] [address] [phone] * XR THORACIC SPINE (2 VIEWS) (07/26/2024 [...] evaluate if appropriate. Symone Bales APRN - SILK SNAPPER IMG DIAGNOSTIC IMAGING ORD ERABLES Final Result * (ABNORMAL) Brain Natriuretic Peptide (07/26/2024 10:45 AM EDT) NT Pro-BNP 814(H) 0 - 450 pg/mL 07/26/2024 10:45 AM EDT [facility] 07/26/2024 10:4 5 AM EDT 07/26/2024 10:46 AM EDT Molina Chang DO CHEMISTRY ORDERABLES Final R esult [facility] [address] [phone] * Culture, Urine (07/26/2024 10:44 AM EDT) Only the most recent of2 resultswithin the time period is included. Specimen Description .CLEAN CATCH URINE 07/26/2024 10:44 AM EDT [facility] Special Requests Site: Urine 07/26/2024 10:44 AM [facility] Culture NO GROWTH 07/26/2024 10:44 AM EDT [facility] Urine URINE SPECIMEN / Unknown 07/26/2024 10:44 AM EDT 07/26/2024 10:45 AM EDT us Steven Izaguirre MD MICROBIOLOGY - GENERAL ORDERABLE S Final Result [facility] [address] [place] [address], [facility] [phone] [facility] [address] [place] [address], [facility] [phone] * (ABNORMAL) Basic Metabolic Panel w/ Reflex to MG (07/14/2024 6:08 AM EDT) Only the most recent of3 resultswithin the time period is included. Sodium 143 136 - 145 mmol/L 07/14/2024 6:08 AM [facility] Potassium 4.1 3.7 - 5.3 mmol/L 07/14/2024 6:08 AM [facility] Chloride 113(H) 98 - 107 mmol/L 07/14/2024 6:08 AM [facility] CO2 20 20 - 31 mmol/L 07/14/2024 6:08 AM [facility] Anion Gap 10 9 - 16 mmol/L 07/14/2024 6:08 AM [facility] Glucose 93 74 - 99 mg/dL 07/14/2024 6:08 AM [facility] BUN 19 8 - 23 mg/dL 07/14/2024 6:08 AM [facility] Creatinine 0.9 0.50 - 0.90 mg/dL 07/14/2024 6:08 AM [facility] Est, Glom Filt Rate 61 >60 mL/min/1.7 3m2 07/14/2024 6:08 AM [facility] Comment: These results are not [...] 9 - 20 07/14/2024 6:08 AM EDT [facility] Calcium 8.5(L) 8.6 - 10.4 mg/dL 07/14/2024 6:08 AM EDT [facility] BLOOD SPECIMEN / Unknown 07/14/2024 6:08 AM EDT 07/14/2024 6:12 AM EDT Marnie Martin TANDEM MILL OPERATOR - SILK SNAPPER CHEMISTRY ORDERABLES Fi nal Result Performing Organization Address City/[facility]/ZIP Co de Phone Number [facility] [address] [place] [address] * EKG Rhythm Strip (07/14/2024 6:00 AM EDT) 07/14/2024 6:00 AM EDT Narrative [facility] - 07/14/2024 6:32 AM EDT us Unknown Provider Result ECG ORDERABLES Final Re sult Performing Organization Address [facility]/ZIP Co de Phone Number [facility] [address] [place] [address] * XR CHEST (2 VW) (07/11/2024 10:52 [...] Color, UA Yellow Yellow 07/11/2024 10:30 PM EDT [facility] Turbidity UA Clear Clear 07/11/2024 10:30 PM EDT [facility] Glucose, Ur NEGATIVE NEGATIVE mg/dL 07/11/2024 10:30 PM EDT [facility] Bilirubin, Urine NEGATIVE NEGATIVE 07/11/2024 10:30 PM EDT [facility] Ketones, Urine NEGATIVE NEGATIVE mg/dL 07/11/2024 10:30 PM T [facility] Specific Chandler, UA 1.025(H) 1.010 - 1.020 07/11/2024 10:30 PM EDT [facility] Urine Hgb NEGATIVE NEGATIVE 07/11/2024 10:30 PM EDT [facility] pH, Urine 6.0 5.0 - 9.0 07/11/2024 10:30 PM EDT [facility] Protein, UA NEGATIVE NEGATIVE mg/dL 07/11/2024 10:30 PM T [facility] Urobilinogen, Urine Normal 0.0 - 1.0 EU/dL 07/11/2024 10:30 PM EDT [facility] Nitrite, Urine POSITIVE(A) NEGATIVE 07/11/2024 10:30 PM EDT [facility] Leukocyte Esterase, Urine SMALL(A) NEGATIVE 07/11/2024 10:30 PM EDT [facility] Urine URINE SPECIMEN / Unknown 07/11/2024 10:30 PM EDT 07/11/2024 10:31 PM EDT us Levi Dorsey MD URINE ORDERABLES Final Re sult Performing Organization Address City/[facility]/ZIP Co de Phone Number [facility] [address] [place] [address] * Culture, Blood 2 (07/11/2024 10:20 PM EDT) Specimen Description .BLOOD 07/11/2024 10:20 PM EDT [facility] Special Requests RT WRIST 7 ML 07/11/2024 10:20 PM EDT [facility] Culture NO GROWTH 5 DAYS 07/11/2024 10:20 PM EDT [facility] BLOOD SPECIMEN / Unknown 07/11/2024 10:20 PM EDT 07/11/2024 10:30 PM EDT us Levi Dorsey MD MICROBIOLOGY - GENERAL OR DERABLES Final Result Performing Organization Address City/[facility]/ZIP Co de Phone Number [facility] [address] [place] [address] * Blood Culture 1 (07/11/2024 10:15 PM EDT) Specimen Description .BLOOD 07/11/2024 10:15 PM EDT [facility] Special Requests RT HAND 4ML 07/11/2024 10:15 PM EDT [facility] Culture NO GROWTH 5 DAYS 07/11/2024 10:15 PM EDT [facility] BLOOD SPECIMEN / Unknown 07/11/2024 10:15 PM EDT 07/11/2024 10:29 PM EDT Levi Dorsey MD MICROBIOLOGY - GENERAL OR DERABLES Final Result Performing Organization Address City/[facility]/ZIP Co de Phone Number [facility] [address] [place] [address] * Lactic Acid (07/11/2024 10:15 PM EDT) Lactic Acid 0.8 0.5 - 2.2 mmol/L 07/11/2024 10:15 PM EDT [facility] Blood BLOOD SPECIMEN / Unknown 07/11/2024 10:15 PM EDT 07/11/2024 10:26 PM EDT Levi Dorsey MD CHEMISTRY ORDERABLES Roya l Result Performing Organization Address City/[facility]/ZIP Co de Phone Number [facility] [address] [place] [address] * Lipid Panel (05/15/2024 1:47 PM EDT) Cholesterol, Total 122 0 - 199 mg/dL 05/15/2024 1:47 PM EDT [facility] Comment: Cholesterol Guidelines: <200 Desirable 200-240 Borderline >240 Undesirable HDL 80 >40 mg/dL 05/15/2024 1:47 PM EDT [facility] Comment: HDL Guidelines: <40 Undesirable 40-59 Borderline >59 Desirable LDL Cholesterol 34 0 - 100 mg/dL 05/15/2024 1:47 PM EDT [facility] Comment: LDL Guidelines: <100 Desirable 100-129 Near to/above Desirable 130-159 Borderline >159 Undesirable Direct (measured) LDL and calculated LDL are not interchangeable tests. Chol/HDL Ratio 1.5 05/15/2024 1:47 PM EDT [facility] Triglycerides 41 <150 mg/dL 05/15/2024 1:47 PM EDT [facility] Comment: Triglyceride Guidelines: <150 Desirable 150-199 Borderline 200-499 High >499 Very high Based on AHA Guidelines for fasting triglyceride, November 2011. VLDL 8 1 - 30 mg/dL 05/15/2024 1:47 PM EDT [facility] 05/15/2024 1:47 PM EDT 05/15/2024 1:48 PM EDT us Molina Chang DO CHEMISTRY ORDERABLES Final R esult [facility] [address] [place] [address], [facility] [phone] [facility] [address] [place] [address], [facility] [phone] * DEXA Bone Density 2 Sites (12/07/2012 1:36 PM EDT) Anatomical Region Laterality Modality Other 12/07/2012 1:36 PM EDT Narrative 12/07/2012 3:11 PM EDT FINAL Procedure: TDD Dec 07 2012 1:36PM [id number] LUMBAR HIP COMBINATION DEXA Reason for Exam: [...] Valenzuela D.O. IMPRESSION: SEE ABOVE. Transcribed by: BUTCH on Dec 07 2012 3:11P Read by: QUINTON HICKS [id number] on Dec 07 2012 2:07P Electronically Signed by: DR. QUINTON HICKS on: Dec 07 2012 3:11P Procedure Note Quinton Hicks MD - 12/07/2012 FINAL Procedure: TDD Dec 07 2012 1:36PM [id number] LUMBAR HIP COMBINATIONDEXA Reason for Exam: ^screening [...] Valenzuela D.O. IMPRESSION: SEE ABOVE. Transcribed by: [facility] on Dec 07 2012 3:11P Read by: QUINTON HICKS [id number] on Dec 07 2012 2:07P Electronically Signed by: DR. QUINTON HICKS on: Dec 07 2012 3:11P Mckenzie Thao APRN - ERWIN IM DEXA ORDERAB LES Edited Result - Final from Last 3 Months or Most Recently Relevant to Health Maintenance Insurance [facility] MEDICARE Advance Directives Documents on File Type Date Recorded Patient Wire Weaver Expl anation ACP-Do Not Resuscitate 04/05/2023 1:36 [...] Orozco Spencer Spouse Primary Decision Maker Nely Bardales Grandchild Secondary Decision Maker Care Teams Fresco Artist Relationship Specialty Start Date End Date Molina Chang DO [address] [place] [address] [id number] PCP - General 06/05/12
--- OUTSIDE RECORDS SUMMARY | 2024-10-02 09:16 | XMS_ITS | CCD ---
Author Organization [facility] Care Team Providers Care Saturator Name Role Phone Molina Ramos Primary Care Provider [phone] KRISTINA LOMAX Referring Unavailable VALONE, MOLINA L Primary Care Unavailable LISETH, ACOSTA I Admitting Unavailable LISETH, ACOSTA I Attending Unavailable VALONE, MOLINA L Primary Care Unavailable AHMEDJERICA S Consulting Unavailable AHMED, MOHAMMCORINE S Admitting Unavailable AHMEDJERICA S Attending Unavailable ValMolina urias DO Primary Care Provider Molina Ramos DO Primary Care Provider Valone Molina FLORES Primary Care Provider [phone] Sujataone DOMolina Primary Care Provider VALONE MOLINA L Primary Care Unavailable VALONE, MOLINA [...] Unavailable VALONE, MOLINA L Primary Care Unavailable SHABNAM BAXTER Attending Unavailable VALONE, MOLINA L Primary Care Unavailable VALONE, MOLINA L Primary Care Unavailable VALONE, MOLINA L Referring Unavailable VALONE, MOLINA L Primary Care Unavailable VALONE, MOLINA L Referring Unavailable VALONE, MOLINA L Primary Care Unavailable VALONE, MOLINA L Referring Unavailable VALONE, MOLINA L Primary Care Unavailable CRISTIN DICKINSON Referring Unavailable VALONE, MOLINA L Primary Care Unavailable VICTOR M [place] Referring Unavailable VALONE, MOLINA L Primary Care [...] Care Unavailable VALONE, MOLINA L Referring Unavailable IACOB, VICTOR M Attending Unavailable IACOBVICTOR M Admitting Unavailable VALONE, MOLINA L Primary Care Unavailable SHABNAM BAXTER Attending Unavailable VALONE, MOLINA L Primary Care Unavailable VALONE, MOLINA L Primary Care Unavailable VALONE, MOLINA L Referring Unavailable VALONE, MOLINA L Primary Care Unavailable VALONE, MOLINA L Referring Unavailable Giedraitis , Andrius Foster Attending Unavailable Giedraitis , Andrius Vstanley Attending Unavailable Giedraitis , Andrius Vytautas Attending Unavailable Giedraitis , Andrius Vytniko Attending Unavailable Giedraitis , Andrius Vytniko Attending Unavailable Allergies Allergy Classification Reported Allergen(s) Allergy Type Date of Onset Reaction(s) Facility Opioid Agonists (3 sources) Morphine Drug Allergy 06-05-2012 [facility] (20 sources) Morphine Drug Allergy 06-05-2012 [facility] Work Phone: Medications Current Medications Medication Drug Class(es) Dates Sig (Normalized) Sig (Original) Acetaminophen (5 sources) Start: 07-12-2024 acetaminophen (TYLENOL) tablet 650 mg Start: 09-04-2020 End: 09-04-2020 acetaminophen (TYLENOL) tabl et 1,000 mg Start: 09-03-2020 End: 09-03-2020 acetaminophen (TYLENOL) tabl et 1,000 mg Start: 09-02-2020 End: 09-02-2020 acetaminophen (TYLENOL) tabl et 325 mg Start: 04-17-2020 acetaminophen (TYLENOL) tablet 650 mg acetaminophen 325 mg / HYDROcodone bitartrate 5 mg oral tablet (3 sources) Opioid Agonist Start: 08-18-2024 End: 08-18-2024 take 1 tablet by mouth every twenty-four hours 1 tablet, Oral, ONCE, 1 dose, On Wed08/18/24 at 0200, Maximum dose of acetaminophen is 4000 mg from all sources in 24 hours. Start: 01-21-2024 End: 01-21-2024 take 1 tablet [...] 4 tablets 12 tablet 01/21/2024 01/24/2024 Active amLODIPine 5 mg oral tablet (20 sources) Dihydropyridine Calcium Channel Parminder Start: 04-20-2020 amLODIPine (NORVASC) tablet 5 mg Start: 04-20-2020 take 1 tablet by ivory th once daily amLODIPine (NORVASC) 5 MG tablet Take 1 tablet by mouth daily 30 tablet 3 04/20/2020 Active Start: 04-18-2020 amLODIPine (NO RVASC) tablet 5 mg atorvastatin 40 mg oral tablet (20 sources) HMG-CoA Reductase Inhibitor Start: 04-17-2020 End: 04-18-2020 take 80 mg by mouth once daily 80 mg, Oral, NIGHTLY, First dose on Wed04/17/20 at 2100 Start: 04-17-2020 take 1 tablet by ivory th once daily atorvastatin (LIPITOR) 40 MG tablet Take 1 tablet by mouth daily 30 tablet 3 04/19/2020 Active 24 hr buPROPion hydrochloride 300 mg [...] 0 Active cephalexin 500 mg oral capsule (3 sources) Cephalosporin Antibacterial Start: End: take 1 capsule by mouth four times daily cephALEXin (KEFLEX) 500 MG capsule Take 1 capsule by mouth 4 times daily for 7 days 28 capsule 07/14/2024 07/21/2024 Active Start: 03-26-2024 End: 04-02-2024 take 1 capsule by mouth three times daily cephALEXin (KEFLEX) 500 MG capsule Take 1 capsule by mouth 3 times daily for 7 days 21 capsule 03/26/2024 04/02/2024 Active 12 hr cetirizine hydrochloride 5 mg / pseudoephedrine hydrochloride 120 mg extended release oral tablet (18 sources) alpha-Adrenergic Agonist, Histamine-1 Receptor Antagonist take 5-120 mg by mouth once cetirizine-psuedoephedrine (ZYRTEC-D) 5-120 MG per extended release tablet Take 1 tablet by mouth daily Active cyclobenzaprine hydrochloride 10 mg oral tablet (1 source) Muscle Relaxant Star t: 08-08 End: 08-09 25 take 1 tablet by mouth three times daily as needed for muscle spasms cyclobenzaprine (FLEXERIL) 10 MG tablet Take 1 tablet by mouth 3 times daily as needed for Muscle spasms 21 tablet 08/18/2024 08/28/2024 Active DULoxetine 60 mg delayed release oral capsule (1 source) Serotonin and Norepinephrine Reuptake Inhibitor Star t: 09-27 24 take 1 capsule by mouth once daily DULoxetine (CYMBALTA) 60 MG extended release capsule Take 1 capsule by mouth nightly 0 02/15/2023 Active furosemide 20 mg oral tablet (3 sources) Loop Diuretic Star t: 07-09 25 furosemide (LASIX) 20 MG tablet Take 1 tablet every other day for 1 week then call office for updated weight. 4 tablet 07/19/2024 Active gabapentin 100 mg oral capsule (10 sources) Anti-epileptic Agent Star t: 07-2 07-28 take 100 mg by mouth once daily [...] 10 MIN PRN, High Blood Pressure, Starting 04/17/20 at 2035 Administer 10 mg IV every 10 minutes if SBP is 220 mmHg or greater OR DBP is 120 mmHg or greater. Notify provider if SBP is 220 mmHg or greater OR DBP is 120 mmHg or greater after 3 consecutive doses. lactulose 667 mg/ml oral paolo ution (20 sources) Osmotic Laxative Start: 07-12-2024 Start: 09-02-2020 End: 09-03-2020 10 g, Oral, 2 TIMES DAILY, F irst dose on Wed09/02/20 at 1500 take 1 dose by mouth twice daily lactulose (CEPHULAC) 10 g packet Take 1 packet by mouth 2 times daily Active losartan potassium 50 mg oral tablet (8 [...] 3 mg by mouth daily 0 Active montelukast 10 mg oral tablet (20 [...] capsule by mouth nightly 0 Active NONFORMULARY (20 sources) NONFORMULARY All red Eye Vitamin daily Active NONFORMULARY All red Eye Vitamin daily 0 Active ondansetron (ZOFRAN-ODT) disintegrating tablet 4 mg (2 sources) Start: 07-12-2024 ondansetron (Z OFRAN-ODT) disintegrating tablet 4 mg Start: 09-02-2020 ondansetron (Z OFRAN-ODT) disintegrating tablet 4 mg polyethylene glycol [id number] mg powder for oral solution (6 sources) Osmotic Laxative Start: 04-17-2020 1 ml promethazine hydrochloride 25 mg/ml injection (20 sources) Phenothiazine Start: 09-02-2020 promethazine (PHENERGAN) injection 12.5 mg Start: 06-02-2020 End: 06-02-2020 promethazine (PHENERGAN) inj ection 12.5 mg Start: 06-02-2020 take 0.5-1 tablets b y mouth three times daily as needed for nausea promethazine (PHENERGAN) 25 MG tablet Half to 1 pill by mouth 3 times daily as needed nausea/vomiting 21 tablet 0 06/02/2020 Active Start: 04-17-2020 promethazine ( PHENERGAN) tablet 12.5 mg vitamin b12 0.5 mg oral tabl et (14 sources) Vitamin B12 Cyanocobalamin ( VITAMIN B 12) 500 MCG TABS Take by [...] Drug Class(es) Dates Sig (Normalized) Sig (Original) aspirin 81 mg delayed release oral tablet (20 sources) Platelet Aggregation Inhibitor, Nonsteroidal Anti-inflammatory Drug Start: 07-12-2024 take 81 mg by mouth once daily 81 mg, Oral, DAILY, First dose on Wed07/12/24 at 0900, Until Discontinued Start: 10-05-2021 aspirin chewab le tablet 81 mg Start: 09-03-2020 take 81 mg by mouth once daily 81 mg, Oral, DAILY, First dose on Wed09/03/20 at 0900 Start: 04-17-2020 aspirin chewab le tablet 324 mg take 1 tablet by mouth once naga y aspirin 81 MG tablet Take 1 tablet by mouth daily Active baclofen 10 mg oral tablet (20 sources) gamma-Aminobutyric Acid-ergic Agonist Start: 07-12-2024 take 10 mg by mouth once daily 10 mg, Oral, NIGHTLY, First dose on Wed07/12/24 at 2100, Until Discontinued take 1 tablet by mouth three reno es daily baclofen (LIORESAL) 10 MG tablet Take 10 mg by mouth 3 times daily 0 Active Budesonide (2 sources) Corticosteroid End: 05-08-2020 Budesonide (PULMICORT IN) In lopez into the lungs 0 05/08/2020 Discontinued (Therapy completed) Budesonide (PULM ICORT IN) Inhale into the lungs 0 Active 100 ml calcium gluconate 20 mg/ml injection (1 source) Start: 07-12-2024 End: 07-12-2024 2,000 mg, IntraVENous, at 50 mL/hr, Administer over 120 Minutes, ONCE, On Wed07/12/24 at 0700, For 1 dose ceFAZolin 1000 mg injection (1 source) Cephalosporin Antibacterial Start: 09-02-2020 End: 09-02-2020 ceFAZolin (ANCEF) 1000 mg in dextrose 5 % 50 mL IVPB (premix) cefTRIAXone (ROCEPHIN) 1,000 mg in sterile water 10 mL IV syringe (3 sources) Start: 07-12-2024 End: 07-14-2024 take 100 mg intravenously every twenty-four hours 1,000 mg, IntraVENous, EVERY 24 HOURS, First dose on Wed07/12/24 at 2300, For 4 days, Administer as slow IV Push over 5 mins Reconstitute 1 g vials with 9.6 mL of designated diluent to produce a 100 mg/mL solution. Start: 07-11-2024 End: 07-11-2024 take 100 mg intravenously once 1,000 mg, IntraVENous, ONCE, On Wed07/11/24 at 2315, For 1 dose, Administer as slow IV Push over 5 mins Reconstitute 1 g vials with 9.6 mL of designated diluent to produce a 100 mg/mL solution. Start: 03-26-2024 End: 03-26-2024 take 100 mg [...] 04/17/2020 09/04/2020 Discontinued (Stop Taking at Discharge) 0.4 ml enoxaparin sodium 100 mg/ml prefilled syringe (2 sources) Low Molecular Weight Heparin Start: 07-12-2024 inject 40 mg by subcutaneous injection once daily 40 mg, SubCUTAneous, DAILY, First dose on Wed07/12/24 at 0900, Until Discontinued, Indication of Use: Prophylaxis-DVT/PE Start: 04-17-2020 inject 40 mg by subc utaneous injection once daily 40 mg, Subcutaneous, DAILY, First dose on Wed04/17/20 at 2100 2 ml fentaNYL 0.05 mg/ml injection (1 [...] iopamidol (ISOVUE-370) 76 % injection 75 mL (4 sources) Start: 08-18-2024 End: 08-18-2024 take 1 dose intravenously once 75 mL, IntraVENous, IMG ONCE PRN, 1 dose, Starting on Wed08/18/24 at 0200, Until Wed08/18/24 at 0216, Other Start: 03-26-2024 End: 03-26-2024 take 1 dose intravenously once 75 mL, IntraVENous, IMG ONCE PRN, 1 dose, Starting on Wed03/26/24 at 1451, Until Wed03/26/24 at 1452, Other Start: 10-05-2021 End: 10-05-2021 iopamidol (ISOVUE-370) 76 % injection 75 mL Start: 04-17-2020 End: 04-17-2020 iopamidol (ISOVUE-370) 76 % injection 75 mL iopamidol (ISOVUE-370) 76 % injection 90 mL (1 source) Start: 09-02-2020 End: 09-02-2020 iopamidol (ISOVUE-370) 76 % injection 90 mL 100 ml levETIRAcetam 10 mg/ml injection (1 source) Start: 09-02-2020 End: 09-02-2020 levETIRAcetam (KEPPRA) 1000 mg/100 mL IVPB lysine 1000 mg oral tablet (2 sources) End: 05-08-2020 take 1 tablet by mouth once daily L-Lysine 1000 MG TABS Take 1,000 mg by mouth daily 0 05/08/2020 Discontinued (Therapy completed) metFORMIN hydrochloride 500 mg oral tablet (20 sources) Biguanide Start: 07-12-2024 take 500 mg by mouth once daily 500 mg, Oral, NIGHTLY, First dose on Wed07/12/24 at 2100, Until Discontinued 2 ml midazolam 1 mg/ml injection (1 [...] mouth daily 0 05/08/2020 Discontinued (Therapy completed) rOPINIRole 0.25 mg oral tablet (19 sources) Nonergot Dopamine Agonist Start: 07-12-2024 take 0.5 mg by mouth once daily 0.5 mg, Oral, DAILY, First dose on Wed07/12/24 at 0200, Until Discontinued take 1 tablet by mouth once naga y rOPINIRole (REQUIP) 0.5 MG tablet Take 1 tablet by mouth daily Active 50 ml sodium chloride 9 mg/m l injection (16 sources) Start: 07-12-2024 5-40 mL, Intra VENous, EVERY 12 HOURS SCHEDULED (2 times per day), First dose on Wed07/12/24 at 0900, Until Discontinued, For Line Patency: Peripheral IV = 5 [...] or Central Line = 20 mL/lumen Start: 07-12-2024 Start: 07-12-2024 End: 07-14-2024 IntraVENous, at 75 mL/hr, CONTINUOUS, Starting on Wed07/12/24 at 0200 Start: 09-03-2020 End: 09-04-2020 0.9 % sodium [...] IV line use, Starting Wed04/17/20 at 2034 spironolactone 25 mg oral tablet (20 sources) Aldosterone Antagonist Start: 07-12-2024 take 50 mg by mouth once daily 50 mg, Oral, DAILY, First dose on Wed07/12/24 at 0900, Until Discontinued Start: 08-13-2023 take 1 tablet by ivory twice daily spironolactone (ALDACTONE) 25 MG tablet Take 1 tablet by mouth 2 times daily 08/13/2023 Active Start: 08-13-2023 take 2 tablets by mo ohh once daily spironolactone (ALDACTONE) 25 MG tablet Take 2 tablets by mouth daily 08/13/2023 Active topiramate 25 mg oral tablet (1 source) End: 04-17-2020 take 1 tablet by mouth twice daily topiramate (TOPAMAX) 25 MG tablet Take 25 mg by mouth 2 times daily 0 04/17/2020 Discontinued (LIST CLEANUP) Problems Active Problems Problem Classification Problem Date Documented Date Episodic/Chronic Cardiac dysrhythmias (20 sources) Paroxysmal supraventricular tachycardia; Translations: [PSVT (paroxysmal supraventricular tachycardia)] Onset: 04-04-2023 04-04-2023 Chronic Conditions associated with dizziness or vertigo (3 sources) Lightheadedness; Translations: [Dizziness and giddiness] Onset: 07-26-2024 07-26-2024 Episodic Congestive heart failure; nonhypertensive (2 sources) Unspecified combined systolic (congestive) and diastolic (congestive) heart failure; Translations: [Unspecified combined systolic (congestive) and diastolic (congestive) heart failure] Onset: 10-22-2023 Chronic Coronary atherosclerosis and other heart disease (20 sources) Angina, class IV; Translations: [Angina pectoris, unspecified] Onset: 04-04-2023 04-04-2023 Chronic Diabetes mellitus without complication (20 sources) Type 2 diabetes mellitus; Translations: [Type 2 diabetes mellitus without complications] Onset: 04-04-2023 04-04-2023 Chronic Disorders of lipid metabolism (4 sources) Mixed hyperlipidemia; Translations: [Mixed hyperlipidemia] Onset: 10-22-2023 5 Chronic Essential hypertension (20 sources) Essential hypertension; Translations: [Hypertensive disorder] Onset: 04-04-2023 04-04-2023 Chronic Fluid and electrolyte disorders (1 source) Dehydration; Translations: [Dehydration] Episodic Headache; including migraine (1 source) Headache disorder; Translations: [Other complicated headache syndrome] Episodic Malaise and fatigue (4 sources) Asthenia; Translations: [Weakness] Onset: 05-15-2024 08-18-2024 Episodic Nausea and vomiting (1 source) Nausea, vomiting and diarrhea; Translations: [Nausea with vomiting, unspecified] Episodic Nutritional deficiencies (2 sources) Vitamin D deficiency, unspecified; Translations: [Vitamin D deficiency, unspecified] Onset: 05-15-2024 Chronic Other and ill-defined cerebrovascular disease (5 sources) Cerebral aneurysm, nonruptured; Translations: [Aneurysm of anterior communicating artery] Onset: 07-26-2024 04-20-2020 Chronic Other and ill-defined cerebrovascular disease (20 sources) Intracranial aneurysm; Translations: [Cerebral aneurysm, nonruptured] Chronic Other and ill-defined cerebrovascular disease (1 source) Cerebral arterial aneurysm; Translations: [Cerebral aneurysm, nonruptured] 07-26-2024 Chronic Other bone disease and musculoskeletal deformities (1 source) Somatic dysfunction of lumbar region; Translations: [Segmental and somatic dysfunction of lumbar region] 02-16-2024 Episodic Other circulatory disease (1 source) Elevated blood pressure; Translations: [Elevated blood-pressure reading, without diagnosis of hypertension] Episodic Other connective tissue disease (1 source) Swelling of left lower limb; Translations: [Other specified soft tissue disorders] Episodic Other ear and sense organ disorders (2 sources) Otalgia, right ear; Translations: [Otalgia, unspecified] Onset: 07-11-2024 07-14-2024 Episodic Other nervous system disorders (20 sources) Disorder of brain; Translations: [Encephalopathy, unspecified] 09-05-2020 Chronic Other nervous system disorders (1 source) Dysarthria; Translations: [Dysarthria and anarthria] Episodic Other screening for suspected conditions (not mental disorders or infectious disease) (2 sources) Computed tomography result abnormal; Translations: [Abnormal findings on diagnostic imaging of other specified body structures] Onset: 03-26-2024 5 Chronic Other screening for suspected conditions (not mental disorders or infectious disease) (1 source) Patient encounter status; Translations: [Encounter for screening mammogram for malignant neoplasm of breast] Episodic Residual codes; unclassified (20 sources) Medication [...] Translations: [Edema, unspecified] Episodic Residual codes; unclassified (1 source) Edema of lower extremity; Translations: [Localized edema] 07-26-2024 Episodic Residual codes; unclassified (3 sources) Localized edema; Translations: [Localized edema] Onset: 05-15-2024 Episodic Spondylosis; intervertebral disc disorders; other back problems (2 sources) Thoracic spondylosis without myelopathy; Translations: [Spondylosis without myelopathy or radiculopathy, thoracic region] Onset: 07-26-2024 07-26-2024 Chronic Sprains and strains (4 sources) Low back strain; Translations: [Strain of muscle, fascia and tendon of lower back, initial encounter] Onset: 01-21-2024 01-21-2024 Episodic Transient cerebral ischemia (20 sources) Transient cerebral ischemia; Translations: [Transient cerebral ischemic attack, unspecified] Onset: 04-17-2020 Resolved: 07-14-2024 04-17-2020 Chronic Unclassified (1 source) Right ear pain 07-14-2024 Urinary tract infections (10 sources) Acute cystitis; Translations: [Acute cystitis without hematuria] Onset: 07-12-2024 Episodic Past or Other Problems Problem Classification Problem Date Documented Da te Episodic/Chronic Cataract (20 sources) Age-related nuclear cataract of right eye; Translations: [Age-related nuclear cataract, right eye] Onset: 12-20-2017 Resolved: 12-20-2017 12-20-2017 Chronic Cataract (2 sources) Age-related nuclear cataract of right eye; Translations: [Age-related nuclear cataract of right eye] Onset: 12-20-2017 Resolved: 12-20-2017 12-20-2017 Diabetes mellitus without complication (2 sources) Other abnormal glucose; Translations: [Other abnormal glucose] Onset: 10-22-2023 Episodic Nonspecific chest pain (20 sources) Chest wall pain; Translations: [Other chest pain] Onset: 04-04-2023 04-04-2023 Episodic Other aftercare (2 sources) Other penitentiary (current) drug therapy; Translations: [Other penitentiary (current) drug therapy] Onset: 10-22-2023 Episodic Other bone disease and musculoskeletal deformities (1 source) Segmental and somatic dysfunction of lumbar region; Translations: [Segmental and somatic dysfunction of lumbar region] Onset: 02-16-2024 Episodic Other circulatory disease (20 sources) History of transient ischemic attack; Translations: [...] Translations: [Myalgia, unspecified site] Onset: 10-22-2023 Episodic Phlebitis; thrombophlebitis and thromboembolism (2 sources) Personal history of other venous thrombosis and embolism; Translations: [Personal history of other venous thrombosis and embolism] Onset: 10-22-2023 Episodic Residual codes; unclassified (2 sources) Transient alteration of awareness; Translations: [Transient alteration of awareness] Onset: 09-02-2020 07-12-2024 Episodic Residual codes; unclassified (1 source) Altered mental status, unspecified; Translations: [Altered mental status, unspecified] Onset: 09-02-2020 Episodic Residual codes; unclassified (2 sources) Edema, unspecified; Translations: [Edema, unspecified] Onset: 10-22-2023 Episodic Spondylosis; intervertebral disc disorders; other back problems (4 sources) Lumbar radiculopathy; Translations: [Radiculopathy, lumbar region] Onset: 11-12-2023 02-16-2024 Episodic Unclassified (20 sources) Onset: 01-26-2018 Resolved: 03-03-2021 01-26-2018 Results Test Name Value Interpretation Reference Range Facility CBC with Auto Differentialon 08-18-2024 Basophils (Bld) [#/Vol] [facility] Basophils/100 WBC (Bld) 0 % 0 - 2 % [facility] Eosinophils (Bld) [#/Vol] 0.27 10*3/uL [facility] Eosinophils/100 WBC (Bld) 4 % 1 - 4 % [facility] Erythrocyte distribution width (RBC) [Ratio] 13.6 % 11.8 - 14.4 % [facility] Hematocrit (Bld) [Volume fraction] 34.5 % Low 36.3 - 47.1 % [facility] Hemoglobin (Bld) [Mass/Vol] 11 g/dL Low 11.9 - 15.1 g/dL [facility] Immature granulocytes (Bld) [#/Vol] 0.03 10*3/uL [facility] Immature granulocytes/100 WBC (Bld) 0 % 0 [facility] Interpretation and review of laboratory results Abnormal [facility] Lymphocytes/100 WBC (Bld) 25 % 24 - 43 % [facility] Lymphocytes/100 WBC (Bld) 1.72 % [facility] MCH (RBC) [Entitic mass] 30.3 pg 25.2 - 33.5 pg [facility] MCHC (RBC) [Mass/Vol] 31.9 g/dL 28.4 - 34.8 g/dL [facility] MCV (RBC) [Entitic vol] 95 fL 82.6 - 102.9 fL [facility] Monocytes/100 WBC (Bld) 15 % High 3 - 12 % [facility] Monocytes/100 WBC (Bld) 1.03 % [facility] Neutrophils/100 WBC (Bld) 56 % 36 - 65 % [facility] Nucleated RBC/100 WBC (Bld) [Ratio] 0 % 0.0 per 100 WBC [facility] Platelet mean volume (Bld) [Entitic vol] 10.2 fL 8.1 - 13.5 fL [facility] Platelets (Bld) [#/Vol] 226 10*3/uL [facility] RBC (Bld) [#/Vol] 3.63 10*6/uL Low 3.95 - 5.1 1 m/uL [facility] Segmented neutrophils/100 WBC (Bld) 3.77 % [facility] WBC other (Bld) [#/Vol] 6.8 [facility] CBC with Diffon 08-18-2024 Abs. Basophil <0.03 Normal 0.00-0.20 [facility] Comment on above: Performed By: #### T ROPI #### [facility] [address] [place] [address] [place] [address] Antenna Machine Operator: Sharath Dennis MD Abs.Imm.Granulocyte 0.03 k/uL Normal 0.00-0.30 [facility] Comment on above: Performed By: #### T ROPI #### [facility] [address] [place], [place] [id number] Antenna Machine Operator: Sharath Dennis MD Abs.Neutrophil (Seg) 3.77 k/uL Normal 1.50-8.10 [facility] Comment on above: Performed By: #### T ROPI #### [facility] [address] [place] [id number] Antenna Machine Operator: Sharath Dennis MD Basophils/100 WBC (Bld) 0 % Normal 0-2 [facility] Comment on above: Performed By: #### T ROPI #### [facility] [address] [place] [address] Antenna Machine Operator: Sharath Dennis MD Eosinophils (Bld) [#/Vol] 0.27 10*3/uL Normal 0.00-0.44 [facility] Comment on above: Performed By: #### T ROPI #### [facility] [address] [place], [place] [id number] Antenna Machine Operator: Sharath Dennis MD Eosinophils/100 WBC (Bld) 4 % Normal 1-4 [facility] Comment on above: Performed By: #### T ROPI #### [facility] [address] [place], [place] [id number] Antenna Machine Operator: Sharath Dennis MD Erythrocyte distribution width (RBC) [Ratio] 13.6 % Normal 11.8-14.4 [facility] Comment on above: Performed By: #### T ROPI #### [facility] [address] [place], [place] [id number] Antenna Machine Operator: Sharath Dennis MD Hematocrit (Bld) [Volume fraction] 34.5 % Low 36.3-47.1 [facility] Comment on above: Performed By: #### T ROPI #### [facility] [address] [place] [address] Dr. [place], [place] [id number] Antenna Machine Operator: Sharath Dennis MD Hemoglobin (Bld) [Mass/Vol] 11.0 g/dL Low 11.9-15.1 [facility] Comment on above: Performed By: #### T ROPI #### [facility] [address] [place], [place] [id number] Antenna Machine Operator: Sharath Dennis MD Immature granulocytes/100 WBC (Bld) 0 % Normal 0 [facility] Comment on above: Performed By: #### T ROPI #### [facility] [address] [place], [place] [id number] Antenna Machine Operator: Sharath Dennis MD Lymphocytes (Bld) [#/Vol] 1.72 10*3/uL Normal 1.10-3.70 [facility] Comment on above: Performed By: #### T ROPI #### [facility] [address] [place], [place] [id number] Antenna Machine Operator: Sharath Dennis MD Lymphocytes/100 WBC (Bld) 25 % Normal 24-43 [facility] Comment on above: Performed By: #### T ROPI #### [facility] [address] [place], [place] [address] Antenna Machine Operator: Sharath Dennis MD MCH (RBC) [Entitic mass] 30.3 pg Normal 25.2-33.5 [facility] Comment on above: Performed By: #### T ROPI #### [facility] [address] [place], [place] [address] Antenna Machine Operator: Sharath Dennis MD MCHC (RBC) [Mass/Vol] 31.9 g/dL Normal 28.4-34.8 [facility] Comment on above: Performed By: #### T ROPI #### [address] [place], [place] [address] Antenna Machine Operator: Sharath Dennis MD MCV (RBC) [Entitic vol] 95.0 fL Normal 82.6-102.9 [facility] Comment on above: Performed By: #### T ROPI #### [address] [place], [place] [address] Antenna Machine Operator: Sharath Dennis MD Monocytes (Bld) [#/Vol] 1.03 10*3/uL Normal 0.10-1.20 [facility] Comment on above: Performed By: #### T ROPI #### [facility] [address] [place], [place] [address] Antenna Machine Operator: Sharath Dennis MD Monocytes/100 WBC (Bld) 15 % High 3-12 [facility] Comment on above: Performed By: #### T ROPI #### [facility] [address] [place], [facility] Antenna Machine Operator: Sharath Dennis MD Neutrophil (Seg) 56 % Normal 36-65 [facility] Comment on above: Performed By: #### T ROPI #### [facility] [address] [place], [place] [id number] Antenna Machine Operator: Sharath Dennis MD NRBC Automated 0.0 per 100 WBC Normal 0.0 [facility] Comment on above: Performed By: #### T ROPI #### [facility] [address] [place], [place] [id number] Antenna Machine Operator: Sharath Dennis MD Platelet mean volume (Bld) [Entitic vol] 10.2 fL Normal 8.1-13.5 [facility] Comment on above: Performed By: #### T ROPI #### [facility] [address] [place], [facility] Antenna Machine Operator: Sharath Dennis MD Platelets (Bld) [#/Vol] 226 10*3/uL Normal 138-453 [facility] Comment on above: Performed By: #### T ROPI #### [facility] [address] [place], [facility] Antenna Machine Operator: Sharath Dennis MD RBC (Bld) [#/Vol] 3.63 10*6/uL Low 3.95-5.11 [facility] Comment on above: Performed By: #### T ROPI #### [facility] [address] [place], [place] [id number] Antenna Machine Operator: Sharath Dennis MD WBC (Bld) [#/Vol] 6.8 10*3/uL Normal 3.5-11.3 [facility] Comment on above: Performed By: #### T ROPI #### [facility] [address] [place] [address] Antenna Machine Operator: Sharath Dennis [facility] Albumin [Mass/Vol] 4.2 g/dL 3.5 - 5.2 g/dL [facility] Albumin/Globulin [Mass ratio] 1.7 {ratio} 1.0 - 2.5 [facility] ALP [Catalytic activity/Vol] 85 U/L 35 - 104 U/L [facility] ALT [Catalytic activity/Vol] 15 U/L 10 - 35 U/L [facility] Anion gap [Moles/Vol] 15 mmol/L 9 - 16 mmol/L [facility] AST [Catalytic activity/Vol] 20 U/L 10 - 35 U/L [facility] Bilirubin [Mass/Vol] 0.3 mg/dL 0.00 - 1.20 mg/dL [facility] Calcium [Mass/Vol] 9.2 mg/dL 8.6 - 10. 4 mg/dL [facility] Chloride [Moles/Vol] 111 mmol/L High 98 - 10 7 mmol/L [facility] CO2 [Moles/Vol] 19 mmol/L Low 20 - 31 mmol/L [facility] Creatinine [Mass/Vol] 1.5 mg/dL High 0.50 - 0.90 mg/dL [facility] Est, Glom Filt Rate 34 Low - PINF [facility] Comment on above: These results are not [...] that affects renal tubular secretion. Glucose [Mass/Vol] 104 mg/dL High 74 - 99 mg/dL [facility] Potassium [Moles/Vol] 4.3 mmol/L 3.7 - 5.3 mmol/L [facility] Protein [Mass/Vol] 6.7 g/dL 6.6 - 8.7 g/dL [facility] Sodium [Moles/Vol] 145 mmol/L 136 - 145 mmol/L [facility] Urea nitrogen [Mass/Vol] 30 mg/dL High 8 - 23 mg/dL [facility] Urea nitrogen/Creatinine [Mass ratio] 20 mg/mg 9 - [address] [facility] [address] HEAD WO CONTRASTon 2024 CT HEAD WO CONTRAST EXAMINATION: CT OF THE HEAD WITHOUT CONTRAST; [...] collection. The kevin-white differentiation is maintained. IMPRESSION: 1. No acute intracranial abnormality. No intracranial hemorrhage. 2. No evidence of arterial stenosis or occlusion in the major arterial vessels of the head and neck. 3. No evidence of dural venous sinus thrombosis on this non-dedicated study. 4. Moderate to marked degenerative disc disease at C5-C6 and C6-C7 levels, without significant stenosis. Interpreted by: Madina Gómez MD Signed by: Madina Gómez MD 08/18/24 Final result Normal [facility] CTA HEAD NECK W CONTRASTon 0 08-18-2024 CTA HEAD NECK W CONTRAST EXAMINATION: CT OF THE HEAD WITHOUT CONTRAST; [...] collection. The kevin-white differentiation is maintained. IMPRESSION: 1. No acute intracranial abnormality. No intracranial hemorrhage. 2. No evidence of arterial stenosis or occlusion in the major arterial vessels of the head and neck. 3. No evidence of dural venous sinus thrombosis on this non-dedicated study. 4. Moderate to marked degenerative disc disease at C5-C6 and C6-C7 levels, without significant stenosis. Interpreted by: Madina Gómez MD Signed by: Madina Gómez MD 08/18/24 Final result Normal [facility] Comp Metabolic Profon 2024 Albumin [Mass/Vol] 4.2 g/dL Normal 3.5-5.2 [facility] Comment on above: Performed By: #### U #### [facility] [address] [place] [address] Antenna Machine Operator: Wellington Back MD Albumin/Glob Ratio 1.7 Normal 1.0-2.5 [facility] Comment on above: Performed By: #### U RC #### [address] [address] Antenna Machine Operator: Wellington Back MD Alkaline Phos 85 U/L Normal 35-104 [facility] Comment on above: Performed By: #### U RC #### [address] [address] Antenna Machine Operator: Wellington Back MD ALT [Catalytic activity/Vol] 15 U/L Normal 10-35 [facility] Comment on above: Performed By: #### U RC #### [address] [address] Antenna Machine Operator: Wellington Back MD Anion gap [Moles/Vol] 15 mmol/L Normal 9-16 [facility] Comment on above: Performed By: #### U RC #### [address] [address] Antenna Machine Operator: Wellington Back MD AST [Catalytic activity/Vol] 20 U/L Normal 10-35 [facility] Comment on above: Performed By: #### U RC #### [address] [address] Antenna Machine Operator: Wellington Back MD Bilirubin [Mass/Vol] 0.3 mg/dL Normal 0.00-1.20 [facility] Comment on above: Performed By: #### U RC #### [address] [address] Antenna Machine Operator: Wellington Back MD BUN/CRE Ratio 20 Normal 9-20 [facility] Comment on above: Performed By: #### U RC #### [address] [address] Antenna Machine Operator: Wellington Back MD Calcium [Mass/Vol] 9.2 mg/dL Normal 8.6-10.4 [facility] Comment on above: Performed By: #### U RC #### [address] [address] Antenna Machine Operator: Wellington Back MD Chloride [Moles/Vol] 111 mmol/L High 98-107 [facility] Comment on above: Performed By: #### U RC #### [place] [address] [place], [place] 4773408 Antenna Machine Operator: Wellington Back MD CO2 [Moles/Vol] 19 mmol/L Low 20-31 [facility] Comment on above: Performed By: #### U RC #### [place] [place], [place] 8234408 Antenna Machine Operator: Wellington Back MD Creatinine [Mass/Vol] 1.5 mg/dL High 0.50-0.90 [facility] Comment on above: Performed By: #### U RC #### [address] [id number] Antenna Machine Operator: Wellington Back MD GFR/1.73 sq M.predicted among non-blacks MDRD (S/P/Bld) [Vol rate/Area] 34 mL/min/{1.73_m2} Low >60 [facility] Comment on above: Result Comment: [...] affects renal tubular secretion. Performed By: #### U RC #### [facility] [address] [place], [place] 4697[address] Antenna Machine Operator: Wellington Back MD Glucose [Mass/Vol] 104 mg/dL High 74-99 [facility] Comment on above: Performed By: #### U RC #### [place] [address] [place], [place] [id number] Antenna Machine Operator: Wellington Back MD Potassium [Moles/Vol] 4.3 mmol/L Normal 3.7-5.3 [facility] Comment on above: Performed By: #### U RC #### [facility] [address] [place] [address] Antenna Machine Operator: Wellington Back MD Protein [Mass/Vol] 6.7 g/dL Normal 6.6-8.7 [facility] Comment on above: Performed By: #### U RC #### [facility] [employer] [facility] [place] [address] Antenna Machine Operator: Wellington Back MD Sodium [Moles/Vol] 145 mmol/L Normal 136-145 [facility] Comment on above: Performed By: #### U RC #### [address] [id number] Antenna Machine Operator: Wellington Back MD Urea nitrogen [Mass/Vol] 30 mg/dL High 8-23 [facility] Comment on above: Performed By: #### U RC #### [address] [address] Antenna Machine Operator: Wellington Back MD Glucose, Whole Bloodon 08-18 Glucose [Mass/Vol] 97 mg/dL 74 - 100 mg/dL [facility] Glucose [Mass/Vol] 97 mg/dL Normal 74-100 [facility] Microscopic Urinalysison Epithelial cells LM.HPF (Urine sed) [#/Area] 0 TO 2 [facility] RBC LM.HPF (Urine sed) [#/Area] 0 TO 2 [facility] WBC LM.HPF (Urine sed) [#/Area] 0 TO 2 [facility] No Panel Informationon 08-18 Interpretation and review of laboratory results Abnormal [facility] TSHon 08-18-2024 TSH Qn 3.27 m[IU]/L [facility] Thyroid Stim. Horm.on 2024 Thyroid Stim. Horm. 3.27 uIU/mL Normal 0.27-4.20 [facility] Comment on above: Performed By: #### T ROPI #### [facility] [address] [place], [place] [id number] Antenna Machine Operator: Sharath Dennis MD Thyroxine, Freeon 08-18-2024 Thyroxine, Free 1.2 ng/dL Normal 0.92-1.68 [facility] Comment on above: Performed By: #### T ROPI #### [facility] [address] [place], [place] [id number] Antenna Machine Operator: Sharath Dennis MD Troponinon 08-18-2024 Interpretation and review of laboratory results Abnormal [facility] Troponin I.cardiac High sensitivity method [Mass/Vol] 28 ng/L High 0 - 14 ng/L [facility] Comment on above: High Sensitivity Tro ponin values cannot be compared with other Troponin methodologies. [facility] Troponin, High Sens 28 ng/L High 0-14 [facility] Comment on above: Result Comment: High Sensitivity Troponin values cannot be compared with other Troponin methodologies. Performed By: #### U MICAO, UAX #### [facility] [address] [place] [address] Antenna Machine Operator: Sharath Dennis MD Troponin I.cardiac High sensitivity method [Mass/Vol] 34 ng/L High 0 - 14 ng/L [facility] Comment on above: High Sensitivity Tro ponin values cannot be compared with other Troponin methodologies. Troponin, High Sens 34 ng/L High 0-14 [facility] Comment on above: Result Comment: High Sensitivity Troponin values cannot be compared with other Troponin methodologies. Performed By: #### U RC #### [facility] [address] [place], [place] [address]697[address] Antenna Machine Operator: Wellington Back MD UA w/Reflex Cultureon 2024 Bilirubin, SemiQt,Ur Negative Normal NEG [facility] Comment on above: Performed By: #### U RC #### [facility] [address] [place], [place] [id number] Antenna Machine Operator: Wellington Back MD Blood, Urine Negative Normal NEG [facility] Comment on above: Performed By: #### U RC #### [address] [address] Antenna Machine Operator: Wellington Back MD Clarity (U) Clear Normal CLEAR [facility] Comment on above: Performed By: #### U RC #### [address] [address] Antenna Machine Operator: Wellington Back MD Color (U) Yellow Normal YEL [facility] Comment on above: Performed By: #### U RC #### [address] [address] Antenna Machine Operator: Wellington Back MD Glucose Ql (U) Negative Normal NEG [facility] Comment on above: Performed By: #### U RC #### [address] [address] Antenna Machine Operator: Wellington Back MD Ketones Ql (U) Negative Normal NEG [facility] Comment on above: Performed By: #### U RC #### [address] [address] Antenna Machine Operator: Wellington Back MD Leukocyte esterase Test strip Ql (U) Negative Normal NEG [facility] Comment on above: Performed By: #### U RC #### [address] [address] Antenna Machine Operator: Wellington Back MD Nitrite,Ur Negative Normal NEG [facility] Comment on above: Performed By: #### U RC #### [address] [address] Antenna Machine Operator: Wellington Back MD PH,Ur 6.0 Normal 5.0-9.0 [facility] Comment on above: Performed By: #### U RC #### [address] [address] Antenna Machine Operator: Wellington Back MD Protein Ql (U) Negative Normal NEG [facility] Comment on above: Performed By: #### U RC #### [facility] [address] [place], [place] [id number] Antenna Machine Operator: Wellington Back MD Spec. [place],Ur 1.010 Normal 1.010-1.020 [facility] Comment on above: Performed By: #### U RC #### [facility] [address] [place], [place] [address] Antenna Machine Operator: Wellington Back MD Urobilinogen,Ur Normal Normal 0.0-1.0 [facility] Comment on above: Performed By: #### U RC #### [facility] [address] [place], [place] [phone] Antenna Machine Operator: Wellington Back MD Urinalysis with Reflex to Cu ltureon 08-18-2024 Bilirubin Ql (U) Negative NEGATIVE [facility] Clarity (U) Clear Clear [facility] Color (U) Yellow Yellow [facility] Glucose Test strip (U) [Mass/Vol] Negative NEGATIVE mg/dL [facility] Hemoglobin Auto test strip Ql (U) Negative NEGATIVE [facility] Ketones (U) [Mass/Vol] Negative NEGAT MAJOR mg/dL [facility] Leukocyte esterase Test strip Ql (U) Negative NEGATIVE [facility] Nitrite Ql (U) Negative NEGATIVE [facility] pH (U) 6 [pH] 5.0 - 9.0 [facility] Protein (U) [Mass/Vol] Negative NEGAT MAJOR mg/dL [facility] Specific gravity (U) [Rel density] 1.01 1.010 - 1.020 [facility] Urobilinogen Qn (U) Normal 0.0 - 1. 0 EU/dL [facility] Urinalysis,Microon Epithelial cells LM Ql (Urine sed) 0 TO 2 Normal 0-25 [facility] Comment on above: Performed By: #### U RC #### [facility] [address] [place] [address] Antenna Machine Operator: Wellington Back MD Urine RBC's 0 TO 2 Normal 0-2 [facility] Comment on above: Performed By: #### U RC #### [facility] [address] [place], [place] [id number] Antenna Machine Operator: Wellington Back MD Urine WBC's 0 TO 2 Normal 0-5 [facility] Comment on above: Performed By: #### U RC #### [facility] [address] [place], [place] [id number] Antenna Machine Operator: Wellington Back MD XR CHEST 1 VIEWon 08-18-2024 XR CHEST 1 VIEW EXAMINATION: ONE XRAY VIEW OF THE CHEST. [...] cardiopulmonary process. 2. Borderline cardiomegaly. No CHF. Interpreted by: Madina Gómez MD Signed by: Madina Gómez MD 08/18/24 Final result Normal [facility] XR THORACIC SPINE (2 VIEWS)o n 08-01-2024 XR THORACIC SPINE (2 VIEWS) EXAMINATION: 2 12 rib-bearing vertebral bodies. Slightly [...] Consider MRI to further evaluate if appropriate. Interpreted by: Mikael Thao MD Signed by: Mikael Thao MD 08/01/24 Final result Normal [facility] Cult,Urineon 07-27-2024 Cult,Urine Specimen Description .CLEAN CATCH URINE Special Requests Site: Urine Culture NO GROWTH Report Status FINAL 07/27/2024 Normal [facility] Comment on above: Performed By: #### U MICAO, UAX #### [facility] [address] [place] [address] Antenna Machine Operator: Sharath Dennis MD Brain Natri. Peptideon 07-26 Natriuretic peptide B (Bld) [Mass/Vol] 814 pg/mL High 0-450 [facility] Comment on above: Performed By: #### B [employer] #### [facility] [address] [place] [address] Antenna Machine Operator: Sharath Dennis MD Brain Natriuretic Peptideon 07-26-2024 Interpretation and review of laboratory results Abnormal [facility] Natriuretic peptide B (Bld) [Mass/Vol] 814 pg/mL High 0 - 450 pg/mL [facility] CBC with Auto Differentialon 07-26-2024 Basophils (Bld) [#/Vol] [facility] Basophils/100 WBC (Bld) 0 % 0 - 2 % [facility] Eosinophils (Bld) [#/Vol] 0.3 10*3/uL [facility] Eosinophils/100 WBC (Bld) 4 % 1 - 4 % [facility] Erythrocyte distribution width (RBC) [Ratio] 13.6 % 11.8 - 14.4 % [facility] Hematocrit (Bld) [Volume fraction] 32.5 % Low 36.3 - 47.1 % [facility] Hemoglobin (Bld) [Mass/Vol] 10.3 g/dL Low 11.9 - 15.1 g/dL [facility] Immature granulocytes (Bld) [#/Vol] [facility] Immature granulocytes/100 WBC (Bld) 0 % 0 [facility] Interpretation and review of laboratory results Abnormal [facility] Lymphocytes/100 WBC (Bld) 20 % Low 24 - 43 % [facility] Lymphocytes/100 WBC (Bld) 1.35 % [facility] MCH (RBC) [Entitic mass] 30.5 pg 25.2 - 33.5 pg [facility] MCHC (RBC) [Mass/Vol] 31.7 g/dL 28.4 - 34.8 g/dL [facility] MCV (RBC) [Entitic vol] 96.2 fL 82.6 - 102.9 fL [facility] Monocytes/100 WBC (Bld) 15 % High 3 - 12 % [facility] Monocytes/100 WBC (Bld) 1 % [facility] Neutrophils/100 WBC (Bld) 61 % 36 - 65 % [facility] Nucleated RBC/100 WBC (Bld) [Ratio] 0 % 0.0 per 100 WBC [facility] Platelet mean volume (Bld) [Entitic vol] 9.8 fL 8.1 - 13.5 fL [facility] Platelets (Bld) [#/Vol] 245 10*3/uL [facility] RBC (Bld) [#/Vol] 3.38 10*6/uL Low 3.95 - 5.1 1 m/uL [facility] Segmented neutrophils/100 WBC (Bld) 4.07 % [facility] WBC other (Bld) [#/Vol] 6.8 [facility] CBC with Diffon 07-26-2024 Abs. Basophil <0.03 Normal 0.00-0.20 [facility] Comment on above: Performed By: #### T HOANG #### [facility] [address] [place] [address] Antenna Machine Operator: Sharath Dennis MD Abs.Imm.Granulocyte <0.03 Normal 0.00-0.30 [facility] Comment on above: Performed By: #### T ROPI #### [facility] [address] [place] [address] [address] [place], [place] [address] Antenna Machine Operator: Sharath Dennis MD Abs.Neutrophil (Seg) 4.07 k/uL Normal 1.50-8.10 [facility] Comment on above: Performed By: #### T ROPI #### [address] [place], [place] [address] Antenna Machine Operator: Sharath Dennis MD Basophils/100 WBC (Bld) 0 % Normal 0-2 [facility] Comment on above: Performed By: #### T ROPI #### [address] [place] [address] Antenna Machine Operator: Sharath Dennis MD Eosinophils (Bld) [#/Vol] 0.30 10*3/uL Normal 0.00-0.44 [facility] Comment on above: Performed By: #### T ROPI #### [address] [place], [place] [address] Antenna Machine Operator: Sharath Dennis MD Eosinophils/100 WBC (Bld) 4 % Normal 1-4 [facility] Comment on above: Performed By: #### T ROPI #### [address] [place], [place] [address] Antenna Machine Operator: Sharath Dennis MD Erythrocyte distribution width (RBC) [Ratio] 13.6 % Normal 11.8-14.4 [facility] Comment on above: Performed By: #### T ROPI #### [address] [place] [id number] Antenna Machine Operator: Sharath Dennis MD Hematocrit (Bld) [Volume fraction] 32.5 % Low 36.3-47.1 [facility] Comment on above: Performed By: #### T ROPI #### [address] [place], [facility] Antenna Machine Operator: Sharath Dennis MD Hemoglobin (Bld) [Mass/Vol] 10.3 g/dL Low 11.9-15.1 [facility] Comment on above: Performed By: #### T ROPI #### [facility] [address] [place], [facility] Antenna Machine Operator: Sharath Dennis MD Immature granulocytes/100 WBC (Bld) 0 % Normal 0 [facility] Comment on above: Performed By: #### T ROPI #### [address] [place], [facility] Antenna Machine Operator: Sharath Dennis MD Lymphocytes (Bld) [#/Vol] 1.35 10*3/uL Normal 1.10-3.70 [facility] Comment on above: Performed By: #### T ROPI #### [address] [place], [facility] Antenna Machine Operator: Sharath Dennis MD Lymphocytes/100 WBC (Bld) 20 % Low 24-43 [facility] Comment on above: Performed By: #### T ROPI #### [address] [place], [facility] Antenna Machine Operator: Sharath Dennis MD MCH (RBC) [Entitic mass] 30.5 pg Normal 25.2-33.5 [facility] Comment on above: Performed By: #### T ROPI #### [address] [place], [facility] Antenna Machine Operator: Sharath Dennis MD MCHC (RBC) [Mass/Vol] 31.7 g/dL Normal 28.4-34.8 [facility] Comment on above: Performed By: #### T ROPI #### [address] [place], [facility] Antenna Machine Operator: Sharath Dennis MD MCV (RBC) [Entitic vol] 96.2 fL Normal 82.6-102.9 [facility] Comment on above: Performed By: #### T ROPI #### [facility] [address] [place], [place] [phone] Antenna Machine Operator: Sharath Dennis MD Monocytes (Bld) [#/Vol] 1.00 10*3/uL Normal 0.10-1.20 [facility] Comment on above: Performed By: #### T ROPI #### [facility] [address] [place] [address] Antenna Machine Operator: Sharath Dennis MD Monocytes/100 WBC (Bld) 15 % High 3-12 [facility] Comment on above: Performed By: #### T ROPI #### [facility] [address] [place], [facility] ( Antenna Machine Operator: Sharath Dennis MD Neutrophil (Seg) 61 % Normal 36-65 [facility] Comment on above: Performed By: #### T ROPI #### [facility] [address] [place], [place] [phone] Antenna Machine Operator: Sharath Dennis MD NRBC Automated 0.0 per 100 WBC Normal 0.0 [facility] Comment on above: Performed By: #### T ROPI #### [facility] [address] [place], [place] [address] Antenna Machine Operator: Sharath Dennis MD Platelet mean volume (Bld) [Entitic vol] 9.8 fL Normal 8.1-13.5 [facility] Comment on above: Performed By: #### T ROPI #### [facility] [address] [place] [address] [employer] Machine Operator: Sharath Dennis MD Platelets (Bld) [#/Vol] 245 10*3/uL Normal 138-453 [facility] Comment on above: Performed By: #### T ROPI #### [facility] [address] [place], [place] [id number] Antenna Machine Operator: Sharath Dennis MD RBC (Bld) [#/Vol] 3.38 10*6/uL Low 3.95-5.11 [facility] Comment on above: Performed By: #### T ROPI #### [facility] [address] [place], [place] [id number] Antenna Machine Operator: Sharath Dennis MD WBC (Bld) [#/Vol] 6.8 10*3/uL Normal 3.5-11.3 [facility] Comment on above: Performed By: #### T ROPI #### [facility] [address] [place], [place] [id number] Antenna Machine Operator: Sharath Dennis MD Comp Metabolic Profon 2024 Albumin [Mass/Vol] 4.1 g/dL Normal 3.5-5.2 [facility] Comment on above: Performed By: #### T ROPI #### [facility] [address] [place], [place] [phone] Antenna Machine Operator: Sharath Dennis MD Albumin/Glob Ratio 1.6 Normal 1.0-2.5 [facility] Comment on above: Performed By: #### T ROPI #### [facility] [address] [place], [place] [phone] Antenna Machine Operator: Sharath Dennis MD Alkaline Phos 90 U/L Normal 35-104 [facility] Comment on above: Performed By: #### T ROPI #### [facility] [address] [place], [place] [phone] Antenna Machine Operator: Sharath Dennis MD ALT [Catalytic activity/Vol] 15 U/L Normal 10-35 [facility] Comment on above: Performed By: #### T ROPI #### [facility] [address] [place], [place] [phone] Antenna Machine Operator: Sharath Dennis MD Anion gap [Moles/Vol] 12 mmol/L Normal 9-16 [facility] Comment on above: Performed By: #### T ROPI #### [facility] [address] [place], [place] [phone] Antenna Machine Operator: Sharath Dennis MD AST [Catalytic activity/Vol] 19 U/L Normal 10-35 [facility] Comment on above: Performed By: #### T ROPI #### [facility] [address] [place], [place] [phone] Antenna Machine Operator: Sharath Dennis MD Bilirubin [Mass/Vol] 0.3 mg/dL Normal 0.00-1.20 [facility] Comment on above: Performed By: #### T ROPI #### [facility] [address] [place], [place] [phone] Antenna Machine Operator: Sharath Dennis MD BUN/CRE Ratio 24 High 9-20 [facility] Comment on above: Performed By: #### T ROPI #### [facility] [address] [place], [place] 2125483 Antenna Machine Operator: Sharath Dennis MD Calcium [Mass/Vol] 9.4 mg/dL Normal 8.6-10.4 [facility] Comment on above: Performed By: #### T ROPI #### [facility] [address] [place], [place] [phone] Antenna Machine Operator: Sharath Dennis MD Chloride [Moles/Vol] 105 mmol/L Normal 98-107 [facility] Comment on above: Performed By: #### T ROPI #### [facility] [address] [place] [address] Antenna Machine Operator: Sharath Dennis MD CO2 [Moles/Vol] 22 mmol/L Normal 20-31 [facility] Comment on above: Performed By: #### T ROPI #### [facility] [address] [place] [address] Antenna Machine Operator: Sharath Dennis MD Creatinine [Mass/Vol] 1.4 mg/dL High 0.50-0.90 [facility] Comment on above: Performed By: #### T ROPI #### [facility] [address] [place], [place] [phone] Antenna Machine Operator: Sharath Dennis MD GFR/1.73 sq M.predicted among non-blacks MDRD (S/P/Bld) [Vol rate/Area] 39 mL/min/{1.73_m2} Low >60 [facility] Comment on above: Result Comment: [...] affects renal tubular secretion. Performed By: #### T ROPI #### [facility] [address] [place] [address] Antenna Machine Operator: Sharath Dennis MD Glucose [Mass/Vol] 90 mg/dL Normal 74-99 [facility] Comment on above: Performed By: #### T ROPI #### [facility] [address] [place], [place] [phone] Antenna Machine Operator: Sharath Dennis MD Potassium [Moles/Vol] 4.5 mmol/L Normal 3.7-5.3 [facility] Comment on above: Performed By: #### T ROPI #### [facility] [address] [place], [place] [phone] Antenna Machine Operator: Sharath Dennis MD Protein [Mass/Vol] 6.7 g/dL Normal 6.6-8.7 [facility] Comment on above: Performed By: #### T ROPI #### [facility] [address] [place] [phone] Antenna Machine Operator: Sharath Dennis MD Sodium [Moles/Vol] 139 mmol/L Normal 136-145 [facility] Comment on above: Performed By: #### T LISSYI #### [facility] [address] [place], [place] [phone] Antenna Machine Operator: Sharath Dennis MD Urea nitrogen [Mass/Vol] 33 mg/dL High 8-23 [facility] Comment on above: Performed By: #### T HOANG #### [facility] [address] [place] [address] Antenna Machine Operator: Sharath Dennis MD Comprehensive Metabolic [facility] 07-26-2024 Albumin [Mass/Vol] 4.1 g/dL 3.5 - 5.2 g/dL [facility] Albumin/Globulin [Mass ratio] 1.6 {ratio} 1.0 - 2.5 [facility] ALP [Catalytic activity/Vol] 90 U/L 35 - 104 U/L [facility] ALT [Catalytic activity/Vol] 15 U/L 10 - 35 U/L [facility] Anion gap [Moles/Vol] 12 mmol/L 9 - 16 mmol/L [facility] AST [Catalytic activity/Vol] 19 U/L 10 - 35 U/L [facility] Bilirubin [Mass/Vol] 0.3 mg/dL 0.00 - 1.20 mg/dL [facility] Calcium [Mass/Vol] 9.4 mg/dL 8.6 - 10. 4 mg/dL [facility] Chloride [Moles/Vol] 105 mmol/L 98 - 10 7 mmol/L [facility] CO2 [Moles/Vol] 22 mmol/L 20 - 31 mmol/L [facility] Creatinine [Mass/Vol] 1.4 mg/dL High 0.50 - 0.90 mg/dL [facility] Est, Glom Filt Rate 39 Low - PINF [facility] Comment on above: These results are not [...] that affects renal tubular secretion. Glucose [Mass/Vol] 90 mg/dL 74 - 99 mg/dL [facility] Interpretation and review of laboratory results Abnormal [facility] Potassium [Moles/Vol] 4.5 mmol/L 3.7 - 5.3 mmol/L [facility] Protein [Mass/Vol] 6.7 g/dL 6.6 - 8.7 g/dL [facility] Sodium [Moles/Vol] 139 mmol/L 136 - 145 mmol/L [facility] Urea nitrogen [Mass/Vol] 33 mg/dL High 8 - 23 mg/dL [facility] Urea nitrogen/Creatinine [Mass ratio] 24 mg/mg High 9 - 20 [facility] Microscopic Urinalysison Bacteria LM Ql (Urine sed) TRACE Abnormal None [facility] Epithelial cells LM.HPF (Urine sed) [#/Area] 2 TO 5 [facility] Interpretation and review of laboratory results Abnormal [facility] Mucus Ql (Urine sed) TRACE Abnormal None [facility] RBC LM.HPF (Urine sed) [#/Area] 0 TO 2 [facility] WBC LM.HPF (Urine sed) [#/Area] 2 TO 5 [facility] UA w/Reflex Cultureon 2024 Bilirubin, SemiQt,Ur Negative Normal NEG [facility] Comment on above: Performed By: #### U MICAO, UAX #### [facility] [address] [place] [address] Antenna Machine Operator: Sharath Dennis MD Blood, Urine Negative Normal NEG [facility] Comment on above: Performed By: #### U MICAO, UAX #### [facility] [address] [place] [address] Antenna Machine Operator: Sharath Dennis MD Clarity (U) Clear Normal CLEAR [facility] Comment on above: Performed By: #### U MICAO, UAX #### [facility] [address] [place], [place] [phone] Antenna Machine Operator: Sharath Dennis MD Color (U) Yellow Normal YEL [facility] Comment on above: Performed By: #### U MICAO, UAX #### [facility] [address] [place], [place] [phone] Antenna Machine Operator: Sharath Dennis MD Glucose Ql (U) Negative Normal NEG [facility] Comment on above: Performed By: #### U MICAO, UAX #### [address] [place], [place] 5004583 Antenna Machine Operator: Sharath Dennis MD Ketones Ql (U) Negative Normal NEG [facility] Comment on above: Performed By: #### U MICAO, UAX #### [facility] [address] [place] [address] Dr. [place], [place] [phone] Antenna Machine Operator: Sharath Dennis MD Leukocyte esterase Test strip Ql (U) TRACE Abnormal NEG [facility] Comment on above: Performed By: #### U MICAO, UAX #### [facility] [address] [place] [address] Dr[address] [place], [place] 2008283 Antenna Machine Operator: Sharath Dennis MD Nitrite,Ur Negative Normal NEG [facility] Comment on above: Performed By: #### U MICAO, UAX #### [facility] [address] [place], [place] [phone] Antenna Machine Operator: Sharath Dennis MD PH,Ur 6.0 Normal 5.0-9.0 [facility] Comment on above: Performed By: #### U MICAO, UAX #### [facility] [address] [place], [place] [phone] Antenna Machine Operator: Sharath Dennis MD Protein Ql (U) Negative Normal NEG [facility] Comment on above: Performed By: #### U MICAO, UAX #### [facility] [address] [place] [address] Antenna Machine Operator: Sharath Dennis MD Spec. [place],Ur 1.015 Normal 1.010-1.020 [facility] Comment on above: Performed By: #### U LASHANDAO, UAX #### [facility] [address] [place] [address] Antenna Machine Operator: Sharath Dennis MD Urobilinogen,Ur Normal Normal 0.0-1.0 [facility] Comment on above: Performed By: #### U ARMAND, UAX #### [facility] [address] [place] [address] [place] [address] Antenna Machine Operator: Sharath Dennis MD Urinalysis with Reflex to Cu ltureon 07-26-2024 Bilirubin Ql (U) Negative NEGATIVE [facility] Clarity (U) Clear Clear [facility] Color (U) Yellow Yellow [facility] Glucose Test strip (U) [Mass/Vol] Negative NEGATIVE mg/dL [facility] Hemoglobin Auto test strip Ql (U) Negative NEGATIVE [facility] Interpretation and review of laboratory results Abnormal [facility] Ketones (U) [Mass/Vol] Negative NEGAT MAJOR mg/dL [facility] Leukocyte esterase Test strip Ql (U) TRACE Abnormal NEGATIVE [facility] Nitrite Ql (U) Negative NEGATIVE [facility] pH (U) 6 [pH] 5.0 - 9.0 [facility] Protein (U) [Mass/Vol] Negative NEGAT MAJOR mg/dL [facility] Specific gravity (U) [Rel density] 1.015 1.010 - 1.020 [facility] Urobilinogen Qn (U) Normal 0.0 - 1. 0 EU/dL [facility] Urinalysis,Microon Bacteria TRACE Abnormal NONE [facility] Comment on above: Performed By: #### U MICAO, UAX #### [facility] [address] [place], [place] [phone] Antenna Machine Operator: Sharath Dennis MD Epithelial cells LM Ql (Urine sed) 2 TO 5 Normal 0-25 [facility] Comment on above: Performed By: #### U MICAO, UAX #### [facility] [address] [place], [place] [phone] Antenna Machine Operator: Sharath Dennis MD Mucus Strands TRACE Abnormal NONE [facility] Comment on above: Performed By: #### U MICAO, UAX #### [facility] [address] [place], [place] [phone] Antenna Machine Operator: Sharath Dennis MD Urine RBC's 0 TO 2 Normal 0-2 [facility] Comment on above: Performed By: #### U MICAO, UAX #### [facility] [address] [place], [place] [phone] Antenna Machine Operator: Sharath Dennis MD Urine WBC's 2 TO 5 Normal 0-5 [facility] Comment on above: Performed By: #### U MICAO, UAX #### [facility] [address] [place], [place] 3675683 Antenna Machine Operator: Sharath Dennis MD Cult, [facility] 07-16-2024 Cult, Blood Specimen Description .BLOOD Special Requests RT WRIST 7 ML Culture NO GROWTH 5 DAYS Report Status FINAL 07/16/2024 [facility] Comment on above: Performed By: #### U MICAO, UAX #### [facility] [address] [place] [address] Antenna Machine Operator: Sharath Dennis MD Cult,Bloodon 07-16-2024 Cult,Blood Specimen Description .BLOOD Special Requests RT HAND 4ML Culture NO GROWTH 5 DAYS Report Status FINAL 07/16/2024 [facility] Comment on above: Performed By: #### [employer] #### [facility] [address] [place] [address] Antenna Machine Operator: Sharath Dennis MD Basic Metab w/rfx MGon 07-14 Anion gap [Moles/Vol] 10 mmol/L Normal 9-16 [facility] Comment on above: Performed By: #### U RC #### [address] [address] Antenna Machine Operator: Wellington Back MD BUN/CRE Ratio 21 High 9-20 [facility] Comment on above: Performed By: #### U RC #### [address] [address] Antenna Machine Operator: Wellington Back MD Calcium [Mass/Vol] 8.5 mg/dL Low 8.6-10.4 [facility] Comment on above: Performed By: #### U RC #### [address] [address] Antenna Machine Operator: Wellington Back MD Chloride [Moles/Vol] 113 mmol/L High 98-107 [facility] Comment on above: Performed By: #### U RC #### [address] [address] Antenna Machine Operator: Wellington Back MD CO2 [Moles/Vol] 20 mmol/L Normal 20-31 [facility] Comment on above: Performed By: #### U RC #### [address] [address] Antenna Machine Operator: Wellington Back MD Creatinine [Mass/Vol] 0.9 mg/dL Normal 0.50-0.90 [facility] Comment on above: Performed By: #### U RC #### [address] [address] Antenna Machine Operator: Wellington Back MD GFR/1.73 sq M.predicted among non-blacks MDRD (S/P/Bld) [Vol rate/Area] 61 mL/min/{1.73_m2} Normal >60 [facility] Comment on above: Result Comment: [...] affects renal tubular secretion. Performed By: #### U RC #### [facility] [address] [place] [address] Antenna Machine Operator: Wellington Back MD Glucose [Mass/Vol] 93 mg/dL Normal 74-99 [facility] Comment on above: Performed By: #### U RC #### [facility] [employer] [address] [place] [address] Antenna Machine Operator: Wellington Back MD Potassium [Moles/Vol] 4.1 mmol/L Normal 3.7-5.3 [facility] Comment on above: Performed By: #### U RC #### [facility] [employer] [address] [place] [address] Antenna Machine Operator: Wellington Back MD Sodium [Moles/Vol] 143 mmol/L Normal 136-145 [facility] Comment on above: Performed By: #### U RC #### [address] [address] Antenna Machine Operator: Wellington Back MD Urea nitrogen [Mass/Vol] 19 mg/dL Normal 8-23 [facility] Comment on above: Performed By: #### U RC #### [address] [address] Antenna Machine Operator: Wellington Back MD Basic Metabolic Panel w/ Ref rima to MGon 07-14-2024 Anion gap [Moles/Vol] 10 mmol/L 9 - 16 mmol/L [facility] Calcium [Mass/Vol] 8.5 mg/dL Low 8.6 - 10. 4 mg/dL [facility] Chloride [Moles/Vol] 113 mmol/L High 98 - 10 7 mmol/L [facility] CO2 [Moles/Vol] 20 mmol/L 20 - 31 mmol/L [facility] Creatinine [Mass/Vol] 0.9 mg/dL 0.50 - 0.90 mg/dL [facility] Charly Moraest Rate 61 - PINF [facility] Comment on above: These results are not [...] that affects renal tubular secretion. Glucose [Mass/Vol] 93 mg/dL 74 - 99 mg/dL [facility] Interpretation and review of laboratory results Abnormal [facility] Potassium [Moles/Vol] 4.1 mmol/L 3.7 - 5.3 mmol/L [facility] Sodium [Moles/Vol] 143 mmol/L 136 - 145 mmol/L [facility] Urea nitrogen [Mass/Vol] 19 mg/dL 8 - 23 mg/dL [facility] Urea nitrogen/Creatinine [Mass ratio] 21 mg/mg High 9 - 20 [facility] CBC auto differentialon 06-0 Basophils (Bld) [#/Vol] [facility] Basophils/100 WBC (Bld) 0 % 0 - 2 % [facility] Eosinophils (Bld) [#/Vol] 0.27 10*3/uL [facility] Eosinophils/100 WBC (Bld) 5 % High 1 - 4 % [facility] Erythrocyte distribution width (RBC) [Ratio] 13.2 % 11.8 - 14.4 % [facility] Hematocrit (Bld) [Volume fraction] 32.4 % Low 36.3 - 47.1 % [facility] Hemoglobin (Bld) [Mass/Vol] 10.2 g/dL Low 11.9 - 15.1 g/dL [facility] Immature granulocytes (Bld) [#/Vol] [facility] Immature granulocytes/100 WBC (Bld) 0 % 0 [facility] Interpretation and review of laboratory results Abnormal [facility] Lymphocytes/100 WBC (Bld) 26 % 24 - 43 % [facility] Lymphocytes/100 WBC (Bld) 1.51 % [facility] MCH (RBC) [Entitic mass] 30.3 pg 25.2 - 33.5 pg [facility] MCHC (RBC) [Mass/Vol] 31.5 g/dL 28.4 - 34.8 g/dL [facility] MCV (RBC) [Entitic vol] 96.1 fL 82.6 - 102.9 fL [facility] Monocytes/100 WBC (Bld) 14 % High 3 - 12 % [facility] Monocytes/100 WBC (Bld) 0.83 % [facility] Neutrophils/100 WBC (Bld) 55 % 36 - 65 % [facility] Nucleated RBC/100 WBC (Bld) [Ratio] 0 % 0.0 per 100 WBC [facility] Platelet mean volume (Bld) [Entitic vol] 9.7 fL 8.1 - 13.5 fL [facility] Platelets (Bld) [#/Vol] 195 10*3/uL [facility] RBC (Bld) [#/Vol] 3.37 10*6/uL Low 3.95 - 5.1 1 m/uL [facility] Segmented neutrophils/100 WBC (Bld) 3.16 % [facility] WBC other (Bld) [#/Vol] 5.8 [facility] CBC with Diffon 07-14-2024 Abs. Basophil <0.03 Normal 0.00-0.20 [facility] Comment on above: Performed By: #### U #### [address] [place], [place] [id number] Antenna Machine Operator: Welilngton Back MD Abs.Imm.Granulocyte <0.03 Normal 0.00-0.30 [facility] Comment on above: Performed By: #### U RC #### [address] [address] Antenna Machine Operator: Wellington Back MD Abs.Neutrophil (Seg) 3.16 k/uL Normal 1.50-8.10 [facility] Comment on above: Performed By: #### U RC #### [address] [address] Antenna Machine Operator: Wellington Back MD Basophils/100 WBC (Bld) 0 % Normal 0-2 [facility] Comment on above: Performed By: #### U RC #### [address] [address] Antenna Machine Operator: Wellington Back MD Eosinophils (Bld) [#/Vol] 0.27 10*3/uL Normal 0.00-0.44 [facility] Comment on above: Performed By: #### U RC #### [address] [address] Antenna Machine Operator: Wellington Back MD Eosinophils/100 WBC (Bld) 5 % High 1-4 [facility] Comment on above: Performed By: #### U RC #### [address] [address] Antenna Machine Operator: Wellington Back MD Erythrocyte distribution width (RBC) [Ratio] 13.2 % Normal 11.8-14.4 [facility] Comment on above: Performed By: #### U RC #### [address] [address] Antenna Machine Operator: Wellington Back MD Hematocrit (Bld) [Volume fraction] 32.4 % Low 36.3-47.1 [facility] Comment on above: Performed By: #### U RC #### [address] [address] Antenna Machine Operator: Wellington Back MD Hemoglobin (Bld) [Mass/Vol] 10.2 g/dL Low 11.9-15.1 [facility] Comment on above: Performed By: #### U RC #### [address] [address] Antenna Machine Operator: Wellington Back MD Immature granulocytes/100 WBC (Bld) 0 % Normal 0 [facility] Comment on above: Performed By: #### U RC #### [address] [address] Antenna Machine Operator: Wellington Back MD Lymphocytes (Bld) [#/Vol] 1.51 10*3/uL Normal 1.10-3.70 [facility] Comment on above: Performed By: #### U RC #### [address] [address] Antenna Machine Operator: Wellington Back MD Lymphocytes/100 WBC (Bld) 26 % Normal 24-43 [facility] Comment on above: Performed By: #### U RC #### [address] [address] Antenna Machine Operator: Wellington Back MD MCH (RBC) [Entitic mass] 30.3 pg Normal 25.2-33.5 [facility] Comment on above: Performed By: #### U RC #### [address] [address] Antenna Machine Operator: Wellington Back MD MCHC (RBC) [Mass/Vol] 31.5 g/dL Normal 28.4-34.8 [facility] Comment on above: Performed By: #### U RC #### [address] [address] Antenna Machine Operator: Wellington Back MD MCV (RBC) [Entitic vol] 96.1 fL Normal 82.6-102.9 [facility] Comment on above: Performed By: #### U RC #### [address] [address] Antenna Machine Operator: Wellington Back MD Monocytes (Bld) [#/Vol] 0.83 10*3/uL Normal 0.10-1.20 [facility] Comment on above: Performed By: #### U RC #### [address] [address] Antenna Machine Operator: Wellington Back MD Monocytes/100 WBC (Bld) 14 % High 3-12 [facility] Comment on above: Performed By: #### U RC #### [address] [address] Antenna Machine Operator: Wellington Back MD Neutrophil (Seg) 55 % Normal 36-65 [facility] Comment on above: Performed By: #### U RC #### [address] [address] Antenna Machine Operator: Wellington Back MD NRBC Automated 0.0 per 100 WBC Normal 0.0 [facility] Comment on above: Performed By: #### U RC #### [address] [address] Antenna Machine Operator: Wellington Back MD Platelet mean volume (Bld) [Entitic vol] 9.7 fL Normal 8.1-13.5 [facility] Comment on above: Performed By: #### U RC #### [address] [address] Antenna Machine Operator: Wellington Back MD Platelets (Bld) [#/Vol] 195 10*3/uL Normal 138-453 [facility] Comment on above: Performed By: #### U RC #### [address] [address] Antenna Machine Operator: Wellington Back MD RBC (Bld) [#/Vol] 3.37 10*6/uL Low 3.95-5.11 [facility] Comment on above: Performed By: #### U RC #### [address] [place] [address] Antenna Machine Operator: Wellington Back MD WBC (Bld) [#/Vol] 5.8 10*3/uL Normal 3.5-11.3 [facility] Comment on above: Performed By: #### U RC #### [facility] [address] [place] [address] Antenna Machine Operator: Wellington Back MD EKG Rhythm Stripon [facility] Basic Metab w/rfx MGon 07-13 Anion gap [Moles/Vol] 11 mmol/L Normal 9-16 [facility] Comment on above: Performed By: #### [employer] #### [facility] [address] [place], [place] [phone] Antenna Machine Operator: Sharath Dennis MD BUN/CRE Ratio 23 High 9-20 [facility] Comment on above: Performed By: #### [employer] #### [facility] [address] [place], [place] 618[address]83 Antenna Machine Operator: Sharath Dennis MD Calcium [Mass/Vol] 8.6 mg/dL Normal 8.6-10.4 [facility] Comment on above: Performed By: #### [employer] #### [facility] [address] [place] [phone] Antenna Machine Operator: Sharath Dennis MD Chloride [Moles/Vol] 110 mmol/L High 98-107 [facility] Comment on above: Performed By: #### [employer] #### [facility] [address] [place], [place] [phone] Antenna Machine Operator: Sharath Dennis MD CO2 [Moles/Vol] 19 mmol/L Low 20-31 [facility] Comment on above: Performed By: #### [employer] #### [facility] [address] [place] [phone] Antenna Machine Operator: Sharath Dennis MD Creatinine [Mass/Vol] 0.9 mg/dL Normal 0.50-0.90 [facility] Comment on above: Performed By: #### [employer] #### [facility] [address] [place] [address] Antenna Machine Operator: Sharath Dennis MD GFR/1.73 sq M.predicted among non-blacks MDRD (S/P/Bld) [Vol rate/Area] 60 mL/min/{1.73_m2} Low >60 [facility] Comment on above: Result Comment: [...] renal tubular secretion. Performed By: #### [employer] #### [facility] [address] [place] [address] Dr. [place], [place] [id number] Antenna Machine Operator: Sharath Dennis MD Glucose [Mass/Vol] 87 mg/dL Normal 74-99 [facility] Comment on above: Performed By: #### [employer] #### [address] [place], [place] [id number] Antenna Machine Operator: hSarath Dennis MD Potassium [Moles/Vol] 4.2 mmol/L Normal 3.7-5.3 [facility] Comment on above: Performed By: #### [employer] #### [facility] [address] [place], [place] [id number] Antenna Machine Operator: Sharath Dennis MD Sodium [Moles/Vol] 140 mmol/L Normal 136-145 [facility] Comment on above: Performed By: #### [employer] #### [facility] [address] [place] [address] Dr. [place], [place] [id number] Antenna Machine Operator: Sharath Dennis MD Urea nitrogen [Mass/Vol] 21 mg/dL Normal 8-23 [facility] Comment on above: Performed By: #### [employer] #### [facility] [address] [place] [address] Antenna Machine Operator: Sharath Dennis MD Basic Metabolic Panel w/ Ref rima to MGon 07-13-2024 Anion gap [Moles/Vol] 11 mmol/L 9 - 16 mmol/L [facility] Calcium [Mass/Vol] 8.6 mg/dL 8.6 - 10. 4 mg/dL [facility] Chloride [Moles/Vol] 110 mmol/L High 98 - 10 7 mmol/L [facility] CO2 [Moles/Vol] 19 mmol/L Low 20 - 31 mmol/L [facility] Creatinine [Mass/Vol] 0.9 mg/dL 0.50 - 0.90 mg/dL [facility] Est, Glom Filt Rate 60 Low - PINF [facility] Comment on above: These results are not [...] that affects renal tubular secretion. Glucose [Mass/Vol] 87 mg/dL 74 - 99 mg/dL [facility] Interpretation and review of laboratory results Abnormal [facility] Potassium [Moles/Vol] 4.2 mmol/L 3.7 - 5.3 mmol/L [facility] Sodium [Moles/Vol] 140 mmol/L 136 - 145 mmol/L [facility] Urea nitrogen [Mass/Vol] 21 mg/dL 8 - 23 mg/dL [facility] Urea nitrogen/Creatinine [Mass ratio] 23 mg/mg High 9 - 20 [facility] CBC auto differentialon 06 Basophils (Bld) [#/Vol] [facility] Basophils/100 WBC (Bld) 0 % 0 - 2 % [facility] Eosinophils (Bld) [#/Vol] 0.22 10*3/uL [facility] Eosinophils/100 WBC (Bld) 3 % 1 - 4 % [facility] Erythrocyte distribution width (RBC) [Ratio] 13.4 % 11.8 - 14.4 % [facility] Hematocrit (Bld) [Volume fraction] 32.5 % Low 36.3 - 47.1 % [facility] Hemoglobin (Bld) [Mass/Vol] 10.4 g/dL Low 11.9 - 15.1 g/dL [facility] Immature granulocytes (Bld) [#/Vol] [facility] Immature granulocytes/100 WBC (Bld) 0 % 0 [facility] Interpretation and review of laboratory results Abnormal [facility] Lymphocytes/100 WBC (Bld) 19 % Low 24 - 43 % [facility] Lymphocytes/100 WBC (Bld) 1.4 % [facility] MCH (RBC) [Entitic mass] 31 pg 25.2 - 33.5 pg [facility] MCHC (RBC) [Mass/Vol] 32 g/dL 28.4 - 34.8 g/dL [facility] MCV (RBC) [Entitic vol] 96.7 fL 82.6 - 102.9 fL [facility] Monocytes/100 WBC (Bld) 11 % 3 - 12 % [facility] Monocytes/100 WBC (Bld) 0.8 % [facility] Neutrophils/100 WBC (Bld) 67 % High 36 - 65 % [facility] Nucleated RBC/100 WBC (Bld) [Ratio] 0 % 0.0 per 100 WBC [facility] Platelet mean volume (Bld) [Entitic vol] 9.4 fL 8.1 - 13.5 fL [facility] Platelets (Bld) [#/Vol] 196 10*3/uL [facility] RBC (Bld) [#/Vol] 3.36 10*6/uL Low 3.95 - 5.1 1 m/uL [facility] Segmented neutrophils/100 WBC (Bld) 5.07 % [facility] WBC other (Bld) [#/Vol] 7.5 [facility] CBC with Diffon 07-13-2024 Abs. Basophil <0.03 Normal 0.00-0.20 [facility] Comment on above: Performed By: #### [employer] #### [facility] [address] [place] [address] Dr. [place], [place] [id number] Antenna Machine Operator: Sharath Dennis MD Abs.Imm.Granulocyte <0.03 Normal 0.00-0.30 [facility] Comment on above: Performed By: #### [employer] #### [address] [place], [facility] Antenna Machine Operator: Sharath Dennis MD Abs.Neutrophil (Seg) 5.07 k/uL Normal 1.50-8.10 [facility] Comment on above: Performed By: #### [employer] #### [address] [place], [facility] Antenna Machine Operator: Sharath Dennis MD Basophils/100 WBC (Bld) 0 % Normal 0-2 [facility] Comment on above: Performed By: #### [employer] #### [address] [place], [place] [phone] Antenna Machine Operator: Sharath Dennis MD Eosinophils (Bld) [#/Vol] 0.22 10*3/uL Normal 0.00-0.44 [facility] Comment on above: Performed By: #### [employer] #### [address] [place], [place] [id number] Antenna Machine Operator: Sharath Dennis MD Eosinophils/100 WBC (Bld) 3 % Normal 1-4 [facility] Comment on above: Performed By: #### [employer] #### [address] [place], [place] [id number] Anten[employer] Machine Operator: Sharath Dennis MD Erythrocyte distribution width (RBC) [Ratio] 13.4 % Normal 11.8-14.4 [facility] Comment on above: Performed By: #### [employer] #### [facility] [address] [place], [place] [id number] Antenna Machine Operator: Sharath Dennis MD Hematocrit (Bld) [Volume fraction] 32.5 % Low 36.3-47.1 [facility] Comment on above: Performed By: #### [employer] #### [facility] [address] [place] [facility] Antenna Machine Operator: Sharath Dennis MD Hemoglobin (Bld) [Mass/Vol] 10.4 g/dL Low 11.9-15.1 [facility] Comment on above: Performed By: #### [employer] #### [address] [place] [facility] Antenna Machine Operator: Sharath Dennis MD Immature granulocytes/100 WBC (Bld) 0 % Normal 0 [facility] Comment on above: Performed By: #### [employer] #### [facility] [address] [place] [address] Dr. [place] [facility] Antenna Machine Operator: Sharath Dennis MD Lymphocytes (Bld) [#/Vol] 1.40 10*3/uL Normal 1.10-3.70 [facility] Comment on above: Performed By: #### [employer] #### [facility] [address] [place] [facility] Antenna Machine Operator: Sharath Dennis MD Lymphocytes/100 WBC (Bld) 19 % Low 24-43 [facility] Comment on above: Performed By: #### [employer] #### [facility] [address] [place] [facility] Antenna Machine Operator: Sharath Dennis MD MCH (RBC) [Entitic mass] 31.0 pg Normal 25.2-33.5 [facility] Comment on above: Performed By: #### [employer] #### [facility] [address] [place] [address] Dr. [place] [facility] Antenna Machine Operator: Sharath Dennis MD MCHC (RBC) [Mass/Vol] 32.0 g/dL Normal 28.4-34.8 [facility] Comment on above: Performed By: #### [employer] #### [facility] [address] [place], [place] [phone] Antenna Machine Operator: Sharath Dennis MD MCV (RBC) [Entitic vol] 96.7 fL Normal 82.6-102.9 [facility] Comment on above: Performed By: #### [employer] #### [address] [place], [place] [phone] Antenna Machine Operator: Sharath Dennis MD Monocytes (Bld) [#/Vol] 0.80 10*3/uL Normal 0.10-1.20 [facility] Comment on above: Performed By: #### [employer] #### [address] [place], [place] [id number] Antenna Machine Operator: Sharath Dennis MD Monocytes/100 WBC (Bld) 11 % Normal 3-12 [facility] Comment on above: Performed By: #### [employer] #### [address] [place] [address] Antenna Machine Operator: Sharath Dennis MD Neutrophil (Seg) 67 % High 36-65 [facility] Comment on above: Performed By: #### [employer] #### [facility] [address] [place] [address] Dr. [place], [facility]83 Antenna Machine Operator: Sharath Dennis MD NRBC Automated 0.0 per 100 WBC Normal 0.0 [facility] Comment on above: Performed By: #### [employer] #### [address] [place], [place] [phone] Antenna Machine Operator: Sharath Dennis MD Platelet mean volume (Bld) [Entitic vol] 9.4 fL Normal 8.1-13.5 [facility] Comment on above: Performed By: #### [employer] #### [facility] [address] [place] [address] Antenna Machine Operator: Sharath Dennis MD Platelets (Bld) [#/Vol] 196 10*3/uL Normal 138-453 [facility] Comment on above: Performed By: #### [employer] #### [facility] [address] [place] [address] Antenna Machine Operator: Sharath Dennis MD RBC (Bld) [#/Vol] 3.36 10*6/uL Low 3.95-5.11 [facility] Comment on above: Performed By: #### [employer] #### [facility] [address] [place] [address] Antenna Machine Operator: Sharath Dennis MD WBC (Bld) [#/Vol] 7.5 10*3/uL Normal 3.5-11.3 [facility] Comment on above: Performed By: #### [employer] #### [facility] [address] [place], [place] [id number] Antenna Machine Operator: Sharath Dennis MD Cult,Urineon 07-13-2024 Cult,Urine Specimen Description .URINE Culture ESCHERICHIA COLI >100,000 CFU/ML Identification by MALDI-TOF Report Status FINAL 07/13/2024 SUSCEPTIBILITY Organism ESCHERICHIA COLI Method SHAILESH Ampicillin 8 SUSCEPTIBLE Cefazolin <=4 SUSCEPTIBLE Cefazolin sensitivity results can be used to predict the effectiveness of oral cephalosporins (eg. Cephalexin) in uncomplicated Urinary Tract Infections due to E. coli, K. pneumoniae, and P. mirabilis Ceftriaxone <=0.25 SUSCEPTIBLE ESBL NEGATIVE Gentamicin <=1 SUSCEPTIBLE Levofloxacin <=0.12 SUSCEPTIBLE Nitrofurantoin <=16 SUSCEPTIBLE Piperacillin/Tazobacta m <=4 SUSCEPTIBLE Tobramycin <=1 SUSCEPTIBLE Trimethoprim/Sulfa <=20 SUSCEPTIBLE Susceptible [facility] Comment on above: Performed By: #### [employer] #### [facility] [address] [place], [place] [phone] Antenna Machine Operator: Sharath Dennis MD Urine cultureon 07-13-2024 Interpretation and review of laboratory results Abnormal [facility] Microorganism identified Cx Nom (Unsp spec) ESCHERICHIA COLI >100,000 CFU/ML Identification by MALDI-TOF Abnormal [facility] Specimen Description .URINE [facility] Basic Metab w/rfx MGon 07-12 Anion gap [Moles/Vol] 9 mmol/L Normal 9-16 [facility] Comment on above: Performed By: #### [employer] #### [facility] [address] [place] [address] Antenna Machine Operator: Sharath Dennis MD BUN/CRE Ratio 24 High 9-20 [facility] Comment on above: Performed By: #### [employer] #### [facility] [address] [place], [place] [id number] Antenna Machine Operator: Sharath Dennis MD Calcium [Mass/Vol] 8.5 mg/dL Low 8.6-10.4 [facility] Comment on above: Performed By: #### [employer] #### [facility] [address] [place], [place] [id number] Antenna Machine Operator: Sharath Dennis MD Chloride [Moles/Vol] 112 mmol/L High 98-107 [facility] Comment on above: Performed By: #### [employer] #### [facility] [address] [place], [place] [phone] Antenna Machine Operator: Sharath Dennis MD CO2 [Moles/Vol] 22 mmol/L Normal 20-31 [facility] Comment on above: Performed By: #### [employer] #### [facility] [address] [place] [address] Antenna Machine Operator: Sharath Dennis MD Creatinine [Mass/Vol] 1.2 mg/dL High 0.50-0.90 [facility] Comment on above: Performed By: #### [employer] #### [facility] [address] [place] [address] Antenna Machine Operator: Sharath Dennis MD GFR/1.73 sq M.predicted among non-blacks MDRD (S/P/Bld) [Vol rate/Area] 46 mL/min/{1.73_m2} Low >60 [facility] Comment on above: Result Comment: [...] renal tubular secretion. Performed By: #### [employer] #### [facility] [address] [place] [address] Antenna Machine Operator: Sharath Dennis MD Glucose [Mass/Vol] 104 mg/dL High 74-99 [facility] Comment on above: Performed By: #### [employer] #### [facility] [address] [place] [address] Antenna Machine Operator: Sharath Dennis MD Potassium [Moles/Vol] 4.5 mmol/L Normal 3.7-5.3 [facility] Comment on above: Performed By: #### [employer] #### [facility] [address] [place] [address] Antenna Machine Operator: Sharath Dennis MD Sodium [Moles/Vol] 143 mmol/L Normal 136-145 [facility] Comment on above: Performed By: #### [employer] #### [facility] [address] [place] [address] Antenna Machine Operator: Sharath Dennis MD Urea nitrogen [Mass/Vol] 29 mg/dL High 8-23 [facility] Comment on above: Performed By: #### [employer] #### [facility] [address] [place] [address] Antenna Machine Operator: Sharath Dennis MD Basic Metabolic Panel w/ Ref rima to MGon 07-12-2024 Anion gap [Moles/Vol] 9 mmol/L 9 - 16 mmol/L [facility] Calcium [Mass/Vol] 8.5 mg/dL Low 8.6 - 10. 4 mg/dL [facility] Chloride [Moles/Vol] 112 mmol/L High 98 - 10 7 mmol/L [facility] CO2 [Moles/Vol] 22 mmol/L 20 - 31 mmol/L [facility] Creatinine [Mass/Vol] 1.2 mg/dL High 0.50 - 0.90 mg/dL [facility] Est, Glophil Filt Rate 46 Low - PINF [facility] Comment on above: These results are not [...] that affects renal tubular secretion. Glucose [Mass/Vol] 104 mg/dL High 74 - 99 mg/dL [facility] Interpretation and review of laboratory results Abnormal [facility] Potassium [Moles/Vol] 4.5 mmol/L 3.7 - 5.3 mmol/L [facility] Sodium [Moles/Vol] 143 mmol/L 136 - 145 mmol/L [facility] Urea nitrogen [Mass/Vol] 29 mg/dL High 8 - 23 mg/dL [facility] Urea nitrogen/Creatinine [Mass ratio] 24 mg/mg High 9 - 20 [facility] CBC auto differentialon Basophils (Bld) [#/Vol] [facility] Basophils/100 WBC (Bld) 0 % 0 - 2 % [facility] Eosinophils (Bld) [#/Vol] 0.21 10*3/uL [facility] Eosinophils/100 WBC (Bld) 4 % 1 - 4 % [facility] Erythrocyte distribution width (RBC) [Ratio] 13.4 % 11.8 - 14.4 % [facility] Hematocrit (Bld) [Volume fraction] 31.1 % Low 36.3 - 47.1 % [facility] Hemoglobin (Bld) [Mass/Vol] 9.8 g/dL Low 11.9 - 15.1 g/dL [facility] Immature granulocytes (Bld) [#/Vol] [facility] Immature granulocytes/100 WBC (Bld) 0 % 0 [facility] Interpretation and review of laboratory results Abnormal [facility] Lymphocytes/100 WBC (Bld) 24 % 24 - 43 % [facility] Lymphocytes/100 WBC (Bld) 1.43 % [facility] MCH (RBC) [Entitic mass] 30.3 pg 25.2 - 33.5 pg [facility] MCHC (RBC) [Mass/Vol] 31.5 g/dL 28.4 - 34.8 g/dL [facility] MCV (RBC) [Entitic vol] 96.3 fL 82.6 - 102.9 fL [facility] Monocytes/100 WBC (Bld) 15 % High 3 - 12 % [facility] Monocytes/100 WBC (Bld) 0.91 % [facility] Neutrophils/100 WBC (Bld) 57 % 36 - 65 % [facility] Nucleated RBC/100 WBC (Bld) [Ratio] 0 % 0.0 per 100 WBC [facility] Platelet mean volume (Bld) [Entitic vol] 9.7 fL 8.1 - 13.5 fL [facility] Platelets (Bld) [#/Vol] 188 10*3/uL [facility] RBC (Bld) [#/Vol] 3.23 10*6/uL Low 3.95 - 5.1 1 m/uL [facility] Segmented neutrophils/100 WBC (Bld) 3.42 % [facility] WBC other (Bld) [#/Vol] 6 [facility] CBC with Diffon 07-12-2024 Abs. Basophil <0.03 Normal 0.00-0.20 [facility] Comment on above: Performed By: #### [employer] #### [facility] [address] [place], [place] [address] Antenna Machine Operator: Sharath Dennis MD Abs.Imm.Granulocyte <0.03 Normal 0.00-0.30 [facility] Comment on above: Performed By: #### [employer] #### [address] [place] [address] Antenna Machine Operator: Sharath Dennis MD Abs.Neutrophil (Seg) 3.42 k/uL Normal 1.50-8.10 [facility] Comment on above: Performed By: #### [employer] #### [address] [place] [address] Antenna Machine Operator: Sharath Dennis MD Basophils/100 WBC (Bld) 0 % Normal 0-2 [facility] Comment on above: Performed By: #### [employer] #### [address] [place] [address] Antenna Machine Operator: Sharath Dennis MD Eosinophils (Bld) [#/Vol] 0.21 10*3/uL Normal 0.00-0.44 [facility] Comment on above: Performed By: #### [employer] #### [address] [place] [address] Antenna Machine Operator: Sharath Dennis MD Eosinophils/100 WBC (Bld) 4 % Normal 1-4 [facility] Comment on above: Performed By: #### [employer] #### [address] [place] [address] Antenna Machine Operator: Sharath Dennis MD Erythrocyte distribution width (RBC) [Ratio] 13.4 % Normal 11.8-14.4 [facility] Comment on above: Performed By: #### [employer] #### [address] [place] [id number] Antenna Machine Operator: Sharath Dennis MD Hematocrit (Bld) [Volume fraction] 31.1 % Low 36.3-47.1 [facility] Comment on above: Performed By: #### [employer] #### [facility] [address] [place], [place] [phone] Antenna Machine Operator: Sharath Dennis MD Hemoglobin (Bld) [Mass/Vol] 9.8 g/dL Low 11.9-15.1 [facility] Comment on above: Performed By: #### [employer] #### [facility] [address] [place] [address] Dr. [place], [facility] Antenna Machine Operator: Sharath Dennis MD Immature granulocytes/100 WBC (Bld) 0 % Normal 0 [facility] Comment on above: Performed By: #### [employer] #### [address] [place], [facility] Antenna Machine Operator: Sharath Dennis MD Lymphocytes (Bld) [#/Vol] 1.43 10*3/uL Normal 1.10-3.70 [facility] Comment on above: Performed By: #### [employer] #### [address] [place], [facility] Antenna Machine Operator: Sharath Dennis MD Lymphocytes/100 WBC (Bld) 24 % Normal 24-43 [facility] Comment on above: Performed By: #### [employer] #### [facility] [address] [place] [address] Dr. [place], [facility] Antenna Machine Operator: Sharath Dennis MD MCH (RBC) [Entitic mass] 30.3 pg Normal 25.2-33.5 [facility] Comment on above: Performed By: #### [employer] #### [address] [place], [facility] Antenna Machine Operator: Sharath Dennis MD MCHC (RBC) [Mass/Vol] 31.5 g/dL Normal 28.4-34.8 [facility] Comment on above: Performed By: #### [employer] #### [facility] [address] [place], [place] [id number] Antenna Machine Operator: Sharath Dennis MD MCV (RBC) [Entitic vol] 96.3 fL Normal 82.6-102.9 [facility] Comment on above: Performed By: #### [employer] #### [facility] [address] [place], [facility] Antenna Machine Operator: Sharath Dennis MD Monocytes (Bld) [#/Vol] 0.91 10*3/uL Normal 0.10-1.20 [facility] Comment on above: Performed By: #### [employer] #### [address] [place], [facility] Antenna Machine Operator: Sharath Dennis MD Monocytes/100 WBC (Bld) 15 % High 3-12 [facility] Comment on above: Performed By: #### [employer] #### [address] [place], [facility] Antenna Machine Operator: Sharath Dennis MD Neutrophil (Seg) 57 % Normal 36-65 [facility] Comment on above: Performed By: #### [employer] #### [address] [place], [facility] Antenna Machine Operator: Sharath Dennis MD NRBC Automated 0.0 per 100 WBC Normal 0.0 [facility] Comment on above: Performed By: #### [employer] #### [facility] [address] [place] [address] Dr[address] [place], [facility] Antenna Machine Operator: Sharath Dennis MD Platelet mean volume (Bld) [Entitic vol] 9.7 fL Normal 8.1-13.5 [facility] Comment on above: Performed By: #### [employer] #### [address] [place], [place] [id number] Antenna Machine Operator: Sharath Dennis MD Platelets (Bld) [#/Vol] 188 10*3/uL Normal 138-453 [facility] Comment on above: Performed By: #### [employer] #### [facility] [address] [place], [place] [phone] Antenna Machine Operator: Sharath Dennis MD RBC (Bld) [#/Vol] 3.23 10*6/uL Low 3.95-5.11 [facility] Comment on above: Performed By: #### [employer] #### [facility] [address] [place], [place] [phone] Antenna Machine Operator: Sharath Dennis MD WBC (Bld) [#/Vol] 6.0 10*3/uL Normal 3.5-11.3 [facility] Comment on above: Performed By: #### [employer] #### [facility] [address] [place], [place] [id number] Antenna Machine Operator: Sharath Dennis MD EKG 12 Leadon 07-12-2024 Atrial Rate 63 BPM [facility] [place] 69 degrees [facility] P-R Interval 172 ms [facility] Q-T Interval 400 ms [facility] QRS Duration 86 ms [facility] QTc Calculation (Bazett) 409 ms [facility] [place] 59 degrees [facility] [place] 48 degrees [facility] Ventricular Rate 63 BPM [facility] Normal sinus rhythm Normal ECG When compared with ECG of 26-Mar-2024 14:35, Minimal criteria for Anterior infarct are no longer Present Nonspecific T wave abnormality no longer evident in Lateral leads Confirmed by Stephan Cole ([id number]) on 07/12/2024 6:21:32 PM [facility] Stephan Cole MD - 07/12/2024 Normal sinus rhythm Normal ECG When compared with ECG of 26-Mar-2024 14:35, Minimal criteria for Anterior infarct are no longer Present Nonspecific T wave abnormality no longer evident in Lateral leads Confirmed by Stephan Cole ([id number]) on 07/12/2024 6:21:32 PM [facility] CBC with Auto Differentialon 07-11-2024 Basophils (Bld) [#/Vol] [facility] Basophils/100 WBC (Bld) 0 % 0 - 2 % [facility] Eosinophils (Bld) [#/Vol] 0.23 10*3/uL [facility] Eosinophils/100 WBC (Bld) 4 % 1 - 4 % [facility] Erythrocyte distribution width (RBC) [Ratio] 13.5 % 11.8 - 14.4 % [facility] Hematocrit (Bld) [Volume fraction] 33.7 % Low 36.3 - 47.1 % [facility] Hemoglobin (Bld) [Mass/Vol] 10.8 g/dL Low 11.9 - 15.1 g/dL [facility] Immature granulocytes (Bld) [#/Vol] [facility] Immature granulocytes/100 WBC (Bld) 0 % 0 [facility] Interpretation and review of laboratory results Abnormal [facility] Lymphocytes/100 WBC (Bld) 25 % 24 - 43 % [facility] Lymphocytes/100 WBC (Bld) 1.35 % [facility] MCH (RBC) [Entitic mass] 30.7 pg 25.2 - 33.5 pg [facility] MCHC (RBC) [Mass/Vol] 32 g/dL 28.4 - 34.8 g/dL [facility] MCV (RBC) [Entitic vol] 95.7 fL 82.6 - 102.9 fL [facility] Monocytes/100 WBC (Bld) 16 % High 3 - 12 % [facility] Monocytes/100 WBC (Bld) 0.86 % [facility] Neutrophils/100 WBC (Bld) 55 % 36 - 65 % [facility] Nucleated RBC/100 WBC (Bld) [Ratio] 0 % 0.0 per 100 WBC [facility] Platelet mean volume (Bld) [Entitic vol] 9.6 fL 8.1 - 13.5 fL [facility] Platelets (Bld) [#/Vol] 216 10*3/uL [facility] RBC (Bld) [#/Vol] 3.52 10*6/uL Low 3.95 - 5.1 1 m/uL [facility] Segmented neutrophils/100 WBC (Bld) 2.97 % [facility] WBC other (Bld) [#/Vol] 5.4 [facility] CBC with Diffon 07-11-2024 Abs. Basophil <0.03 Normal 0.00-0.20 [facility] Comment on above: Performed By: #### [employer] #### [facility] [address] [place] [address] [place] [address] Antenna Machine Operator: Sharath Dennis MD Abs.Imm.Granulocyte <0.03 Normal 0.00-0.30 [facility] Comment on above: Performed By: #### [employer] #### [address] [place] [address] Antenna Machine Operator: Sharath Dennis MD Abs.Neutrophil (Seg) 2.97 k/uL Normal 1.50-8.10 [facility] Comment on above: Performed By: #### [employer] #### [address] [place], [place] [id number] Antenna Machine Operator: Sharath Dennis MD Basophils/100 WBC (Bld) 0 % Normal 0-2 [facility] Comment on above: Performed By: #### [employer] #### [address] [place], [place] [address] Antenna Machine Operator: Sharath Dennis MD Eosinophils (Bld) [#/Vol] 0.23 10*3/uL Normal 0.00-0.44 [facility] Comment on above: Performed By: #### [employer] #### [address] [place], [place] [id number] Antenna Machine Operator: Sharath Dennis MD Eosinophils/100 WBC (Bld) 4 % Normal 1-4 [facility] Comment on above: Performed By: #### [employer] #### [facility] [address] [place], [place] [id number] Antenna Machine Operator: Sharath Dennis MD Erythrocyte distribution width (RBC) [Ratio] 13.5 % Normal 11.8-14.4 [facility] Comment on above: Performed By: #### [employer] #### [facility] [address] [place], [facility] Antenna Machine Operator: Sharath Dennis MD Hematocrit (Bld) [Volume fraction] 33.7 % Low 36.3-47.1 [facility] Comment on above: Performed By: #### [employer] #### [address] [place], [facility] Antenna Machine Operator: Sharath Dennis MD Hemoglobin (Bld) [Mass/Vol] 10.8 g/dL Low 11.9-15.1 [facility] Comment on above: Performed By: #### [employer] #### [address] [place], [facility] Antenna Machine Operator: Sharath Dennis MD Immature granulocytes/100 WBC (Bld) 0 % Normal 0 [facility] Comment on above: Performed By: #### [employer] #### [address] [place], [facility] Antenna Machine Operator: Sharath Dennis MD Lymphocytes (Bld) [#/Vol] 1.35 10*3/uL Normal 1.10-3.70 [facility] Comment on above: Performed By: #### [employer] #### [facility] [address] [place] [address] Antenna Machine Operator: Sharath Dennis MD Lymphocytes/100 WBC (Bld) 25 % Normal 24-43 [facility] Comment on above: Performed By: #### [employer] #### [facility] [address] [place] [address] Dr. [place], [facility] Antenna Machine Operator: Sharath Dennis MD MCH (RBC) [Entitic mass] 30.7 pg Normal 25.2-33.5 [facility] Comment on above: Performed By: #### [employer] #### [address] [place], [place] [id number] Antenna Machine Operator: Sharath Dennis MD MCHC (RBC) [Mass/Vol] 32.0 g/dL Normal 28.4-34.8 [facility] Comment on above: Performed By: #### [employer] #### [address] [place], [facility] Antenna Machine Operator: Sharath Dennis MD MCV (RBC) [Entitic vol] 95.7 fL Normal 82.6-102.9 [facility] Comment on above: Performed By: #### [employer] #### [address] [place], [facility] Antenna Machine Operator: Sharath Dennis MD Monocytes (Bld) [#/Vol] 0.86 10*3/uL Normal 0.10-1.20 [facility] Comment on above: Performed By: #### [employer] #### [address] [place], [facility]83 Antenna Machine Operator: Sharath Dennis MD Monocytes/100 WBC (Bld) 16 % High 3-12 [facility] Comment on above: Performed By: #### [employer] #### [address] [place], [facility]83 Antenna Machine Operator: Sharath Dennis MD Neutrophil (Seg) 55 % Normal 36-65 [facility] Comment on above: Performed By: #### [employer] #### [address] [place] [id number] Antenna Machine Operator: Sharath Dennis MD NRBC Automated 0.0 per 100 WBC Normal 0.0 [facility] Comment on above: Performed By: #### [employer] #### [facility] [address] [place] [address] Antenna Machine Operator: Sharath Dennis MD Platelet mean volume (Bld) [Entitic vol] 9.6 fL Normal 8.1-13.5 [facility] Comment on above: Performed By: #### [employer] #### [facility] [address] [place] [address] Antenna Machine Operator: Sharath Dennis MD Platelets (Bld) [#/Vol] 216 10*3/uL Normal 138-453 [facility] Comment on above: Performed By: #### [employer] #### [facility] [address] [place] [address] Antenna Machine Operator: Sharath Dennis MD RBC (Bld) [#/Vol] 3.52 10*6/uL Low 3.95-5.11 [facility] Comment on above: Performed By: #### [employer] #### [facility] [address] [place], [facility]83 Antenna Machine Operator: Sharath Dennis MD WBC (Bld) [#/Vol] 5.4 10*3/uL Normal 3.5-11.3 [facility] Comment on above: Performed By: #### [employer] #### [facility] [address] [place], [facility]83 Antenna Machine Operator: Sharath Dennis [facility] Albumin [Mass/Vol] 4 g/dL 3.5 - 5.2 g/dL [facility] Albumin/Globulin [Mass ratio] 1.8 {ratio} 1.0 - 2.5 [facility] ALP [Catalytic activity/Vol] 86 U/L 35 - 104 U/L [facility] ALT [Catalytic activity/Vol] 15 U/L 10 - 35 U/L [facility] Anion gap [Moles/Vol] 13 mmol/L 9 - 16 mmol/L [facility] AST [Catalytic activity/Vol] 20 U/L 10 - 35 U/L [facility] Bilirubin [Mass/Vol] 0.3 mg/dL 0.00 - 1.20 mg/dL [facility] Calcium [Mass/Vol] 9.3 mg/dL 8.6 - 10. 4 mg/dL [facility] Chloride [Moles/Vol] 108 mmol/L High 98 - 10 7 mmol/L [facility] CO2 [Moles/Vol] 22 mmol/L 20 - 31 mmol/L [facility] Creatinine [Mass/Vol] 1.4 mg/dL High 0.50 - 0.90 mg/dL [facility] Est, Glom Filt Rate 38 Low - PINF [facility] Comment on above: These results are not [...] that affects renal tubular secretion. Glucose [Mass/Vol] 94 mg/dL 74 - 99 mg/dL [facility] Interpretation and review of laboratory results Abnormal [facility] Potassium [Moles/Vol] 4.8 mmol/L 3.7 - 5.3 mmol/L [facility] Protein [Mass/Vol] 6.3 g/dL Low 6.6 - 8.7 g/dL [facility] Sodium [Moles/Vol] 143 mmol/L 136 - 145 mmol/L [facility] Urea nitrogen [Mass/Vol] 31 mg/dL High 8 - 23 mg/dL [facility] Urea nitrogen/Creatinine [Mass ratio] 22 mg/mg High 9 - [address] [facility] [address] HEAD WO CONTRASTon 2024 CT HEAD WO CONTRAST EXAMINATION: CT OF THE HEAD WITHOUT CONTRAST 07/11/2024 10:55 pm TECHNIQUE: CT of the head was performed without the administration of intravenous contrast. Automated exposure control, iterative reconstruction, and/or weight based adjustment of the mA/kV was utilized to reduce the radiation dose to as low as reasonably achievable. COMPARISON: None. HISTORY: ORDERING SYSTEM PROVIDED HISTORY: AMS TECHNOLOGIST PROVIDED HISTORY: AMS Decision Support Exception - unselect if not [...] IMPRESSION: No acute intracranial abnormality. Interpreted by: Jason Barker MD Signed by: Jason Barker MD 07/11/24 Final result Normal [facility] CT Head WO contraston 2024 No acute intracrania l abnormality. [facility] EXAMINATION: CT OF THE HEAD WITHOUT CONTRAST 07/11/2024 10:55 pm TECHNIQUE: CT of the head was performed without the administration of intravenous contrast. Automated exposure control, iterative reconstruction, and/or weight based adjustment of the mA/kV was utilized to reduce the radiation dose to as low as reasonably achievable. COMPARISON: None. HISTORY: ORDERING SYSTEM PROVIDED HISTORY: AMS TECHNOLOGIST PROVIDED HISTORY: AMS Decision Support Exception - unselect if not [...] of the visualized skull or soft tissues. [facility] Jason Barker MD - 07/11/2024 EXAMINATION: CT OF THE HEAD WITHOUT CONTRAST 07/11/2024 10:55 pm TECHNIQUE: CT of the head was performed without the administration of intravenous contrast. Automated exposure control, iterative reconstruction, and/or weight based adjustment of the mA/kV was utilized to reduce the radiation dose to as low as reasonably achievable. COMPARISON: None. HISTORY: ORDERING SYSTEM PROVIDED HISTORY: AMS TECHNOLOGIST PROVIDED HISTORY: AMS Decision Support Exception - unselect if not [...] soft tissues. IMPRESSION: No acute intracranial abnormality. [facility] Radiology Study observation (narrative) [facility] Comp Metabolic Profon 2024 Albumin [Mass/Vol] 4.0 g/dL Normal 3.5-5.2 [facility] Comment on above: Performed By: #### T ROPI #### [facility] [address] [place] [address] [place] [address] Antenna Machine Operator: Sharath Dennis MD Albumin/Glob Ratio 1.8 Normal 1.0-2.5 [facility] Comment on above: Performed By: #### T ROPI #### [address] [place] [address] Antenna Machine Operator: Sharath Dennis MD Alkaline Phos 86 U/L Normal 35-104 [facility] Comment on above: Performed By: #### T ROPI #### [facility] [address] [place] [address] [place] [phone] Antenna Machine Operator: Sharath Dennis MD ALT [Catalytic activity/Vol] 15 U/L Normal 10-35 [facility] Comment on above: Performed By: #### T ROPI #### [facility] [address] [place] [address] [place] [address] Antenna Machine Operator: Sharath Dennis MD Anion gap [Moles/Vol] 13 mmol/L Normal 9-16 [facility] Comment on above: Performed By: #### T ROPI #### [facility] [address] [place], [place] [address] Antenna Machine Operator: Sharath Dennis MD AST [Catalytic activity/Vol] 20 U/L Normal 10-35 [facility] Comment on above: Performed By: #### T ROPI #### [facility] [address] [place], [place] [id number] Antenna Machine Operator: Sharath Dennis MD Bilirubin [Mass/Vol] 0.3 mg/dL Normal 0.00-1.20 [facility] Comment on above: Performed By: #### T ROPI #### [facility] [address] [place], [place] [id number] Antenna Machine Operator: Sharath Dennis MD BUN/CRE Ratio 22 High 9-20 [facility] Comment on above: Performed By: #### T ROPI #### [facility] [address] [place], [place] [id number] Antenna Machine Operator: Sharath Dennis MD Calcium [Mass/Vol] 9.3 mg/dL Normal 8.6-10.4 [facility] Comment on above: Performed By: #### T ROPI #### [facility] [address] [place], [place] [id number] Antenna Machine Operator: Sharath Dennis MD Chloride [Moles/Vol] 108 mmol/L High 98-107 [facility] Comment on above: Performed By: #### T ROPI #### [facility] [address] [place], [place] [id number] Antenna Machine Operator: Sharath Dennis MD CO2 [Moles/Vol] 22 mmol/L Normal 20-31 [facility] Comment on above: Performed By: #### T ROPI #### [facility] [address] [place], [place] [phone] Antenna Machine Operator: Sharath Dennis MD Creatinine [Mass/Vol] 1.4 mg/dL High 0.50-0.90 [facility] Comment on above: Performed By: #### T ROPI #### [facility] [address] [place] [address] Antenna Machine Operator: Sharath Dennis MD GFR/1.73 sq M.predicted among non-blacks MDRD (S/P/Bld) [Vol rate/Area] 38 mL/min/{1.73_m2} Low >60 [facility] Comment on above: Result Comment: [...] affects renal tubular secretion. Performed By: #### T ROPI #### [facility] [address] [place] [address] Antenna Machine Operator: Sharath Dennis MD Glucose [Mass/Vol] 94 mg/dL Normal 74-99 [facility] Comment on above: Performed By: #### T ROPI #### [address] [place] [address] Antenna Machine Operator: Sharath Dennis MD Potassium [Moles/Vol] 4.8 mmol/L Normal 3.7-5.3 [facility] Comment on above: Performed By: #### T ROPI #### [facility] [address] [place] [address] Antenna Machine Operator: Sharath Dennis MD Protein [Mass/Vol] 6.3 g/dL Low 6.6-8.7 [facility] Comment on above: Performed By: #### T ROPI #### [facility] [address] [place] [address] Antenna Machine Operator: Sharath Dennis MD Sodium [Moles/Vol] 143 mmol/L Normal 136-145 [facility] Comment on above: Performed By: #### T ROPI #### [facility] [address] [place] [address] Antenna Machine Operator: Sharath Dennis MD Urea nitrogen [Mass/Vol] 31 mg/dL High 8-23 [facility] Comment on above: Performed By: #### T ROPI #### [facility] [address] [place], [place] [id number] Antenna Machine Operator: Sharath Dennis MD Lactic Acidon 07-11-2024 Lactate (BldV) [Moles/Vol] 0.8 mmol/L 0.5 - 2.2 mmol/L [facility] Lactate [Moles/Vol] 0.8 mmol/L Normal 0.5-2.2 [facility] Comment on above: Performed By: #### [employer] #### [facility] [address] [place] [address] Antenna Machine Operator: Sharath Dennis MD Microscopic Urinalysison Bacteria LM Ql (Urine sed) 4+ Abnormal None [facility] Epithelial cells LM.HPF (Urine sed) [#/Area] 0 TO 2 [facility] Interpretation and review of laboratory results Abnormal [facility] RBC LM.HPF (Urine sed) [#/Area] 0 TO 2 [facility] WBC LM.HPF (Urine sed) [#/Area] 50 TO 100 [facility] TSHon 07-11-2024 TSH Qn 3.13 m[IU]/L [facility] Thyroid Stim. Horm.on 2024 Thyroid Stim. Horm. 3.13 uIU/mL Normal 0.27-4.20 [facility] Comment on above: Performed By: #### T SH #### [facility] [address] [place] [address] Antenna Machine Operator: Sharath Dennis MD Troponinon 07-11-2024 Interpretation and review of laboratory results Abnormal [facility] Troponin I.cardiac High sensitivity method [Mass/Vol] 25 ng/L High 0 - 14 ng/L [facility] Comment on above: Specimen hemolysis h as exceeded the interference as defined by Galindo. Value may be falsely decreased. Suggest recollection if clinically indicated. High Sensitivity Troponin values cannot be compared with other Troponin methodologies. [facility] Troponin, High Sens 25 ng/L High 0-14 [facility] Comment on above: Result Comment: Spec imen hemolysis has exceeded the interference as defined by Galindo. Value may be falsely decreased. Suggest recollection if clinically indicated. High Sensitivity Troponin values cannot be compared with other Troponin methodologies. Performed By: #### T HOANG #### [facility] [address] [place] [address] [place] [address] Antenna Machine Operator: Sharath Dennis MD Interpretation and review of laboratory results Abnormal [facility] Troponin I.cardiac High sensitivity method [Mass/Vol] 29 ng/L High 0 - 14 ng/L [facility] Comment on above: High Sensitivity Tro ponin values cannot be compared with other Troponin methodologies. [facility] Troponin, High Sens 29 ng/L High 0-14 [facility] Comment on above: Result Comment: High Sensitivity Troponin values cannot be compared with other Troponin methodologies. Performed By: #### T ROPI #### [facility] [address] [place] [address] Antenna Machine Operator: Sharath Dennis MD Urinalysison 07-11-2024 Bilirubin Ql (U) Negative NEGATIVE [facility] Clarity (U) Clear Clear [facility] Color (U) Yellow Yellow [facility] Glucose Test strip (U) [Mass/Vol] Negative NEGATIVE mg/dL [facility] Hemoglobin Auto test strip Ql (U) Negative NEGATIVE [facility] Interpretation and review of laboratory results Abnormal [facility] Ketones (U) [Mass/Vol] Negative NEGAT MAJOR mg/dL [facility] Leukocyte esterase Test strip Ql (U) SMALL Abnormal NEGATIVE [facility] Nitrite Ql (U) Positive Abnormal NEGATIVE [facility] pH (U) 6 [pH] 5.0 - 9.0 [facility] Protein (U) [Mass/Vol] Negative NEGAT MAJOR mg/dL [facility] Specific gravity (U) [Rel density] 1.025 High 1.010 - 1.020 [facility] Urobilinogen Qn (U) Normal 0.0 - 1. 0 EU/dL [facility] Urinalysis, Routineon 2024 Bilirubin, SemiQt,Ur Negative Normal NEG [facility] Comment on above: Performed By: #### [employer] #### [facility] [address] [place] [address] Antenna Machine Operator: Sharath Dennis MD Blood, Urine Negative Normal NEG [facility] Comment on above: Performed By: #### [employer] #### [facility] [address] [place] [address] Antenna Machine Operator: Sharath Dennis MD Clarity (U) Clear Normal CLEAR [facility] Comment on above: Performed By: #### [employer] #### [facility] [address] [place] [address] Antenna Machine Operator: Sharath Dennis MD Color (U) Yellow Normal YEL [facility] Comment on above: Performed By: #### [employer] #### [facility] [address] [place] [address] Antenna Machine Operator: Sharath Dennis MD Glucose Ql (U) Negative Normal NEG [facility] Comment on above: Performed By: #### B [employer] #### [facility] [address] [place] [address] Antenna Machine Operator: Sharath Dennis MD Ketones Ql (U) Negative Normal NEG [facility] Comment on above: Performed By: #### B [employer] #### [facility] [address] [place] [address] Antenna Machine Operator: Sharath Dennis MD Leukocyte esterase Test strip Ql (U) SMALL Abnormal NEG [facility] Comment on above: Performed By: #### B [employer] #### [facility] [address] [place] [address] [place] [address] Antenna Machine Operator: Sharath Dennis MD Nitrite,Ur Positive Abnormal NEG [facility] Comment on above: Performed By: #### [employer] #### [facility] [address] [place] [address] Antenna Machine Operator: Sharath Dennis MD PH,Ur 6.0 Normal 5.0-9.0 [facility] Comment on above: Performed By: #### [employer] #### [address] [place], [place] [phone] Antenna Machine Operator: Sharath Dennis MD Protein Ql (U) Negative Normal NEG [facility] Comment on above: Performed By: #### [employer] #### [facility] [address] [place] [address] Dr[address] [place], [place] [phone] Antenna Machine Operator: Sharath Dennis MD Spec. [place],Ur 1.025 High 1.010-1.020 [facility] Comment on above: Performed By: #### [employer] #### [address] [place], [place] [phone] Antenna Machine Operator: Sharath Dennis MD Urobilinogen,Ur Normal Normal 0.0-1.0 [facility] Comment on above: Performed By: #### B [employer] #### [facility] [address] [place] [address] [place], [place] [phone] Antenna Machine Operator: Sharath Dennis MD Urinalysis,Microon 5 Bacteria 4+ Abnormal NONE [facility] Comment on above: Performed By: #### B [employer] #### [facility] [address] [place] [address] Dr[place], [place] [phone] Antenna Machine Operator: Sharath Dennis MD Epithelial cells LM Ql (Urine sed) 0 TO 2 Normal 0-25 [facility] Comment on above: Performed By: #### [employer] #### [facility] [address] [place] [address] Antenna Machine Operator: Sharath Dennis MD Urine RBC's 0 TO 2 Normal 0-2 [facility] Comment on above: Performed By: #### B [employer] #### [facility] [address] [place] [address] Antenna Machine Operator: Sharath Dennis MD Urine WBC's 50 TO 100 Normal 0-5 [facility] Comment on above: Performed By: #### [employer] #### [facility] [address] [place] [address] Antenna Machine Operator: Sharath Dennis MD XR CHEST (2 VW)on 07-11-2024 XR CHEST (2 VW) EXAMINATION: TWO XRAY VIEWS OF THE CHEST 07/11/2024 10:51 pm COMPARISON: Chest radiograph 03/26/2024 HISTORY: ORDERING SYSTEM PROVIDED HISTORY: Confusion/AMS TECHNOLOGIST PROVIDED HISTORY: (Select if patient is in hallway or waiting room) Confusion/AMS FINDINGS: Lungs: Clear Pleura: No effusion or pneumothorax. Cardiomediastinal silhouette: Normal contours Bones: No acute osseous findings. Soft tissues: Normal. IMPRESSION: No acute cardiopulmonary process. Interpreted by: Jason Barker MD Signed by: Jason Barker MD 07/11/24 Final result Normal [facility] XR Chest 2 Viewson No acute cardiopulmonary process. [facility] EXAMINATION: TWO XRAY VIEWS OF THE CHEST 07/11/2024 10:51 pm COMPARISON: Chest radiograph 03/26/2024 HISTORY: ORDERING SYSTEM PROVIDED HISTORY: Confusion/AMS TECHNOLOGIST PROVIDED HISTORY: (Select if patient is in hallway or waiting room) Confusion/AMS FINDINGS: Lungs: Clear Pleura: No effusion or pneumothorax. Cardiomediastinal silhouette: Normal contours Bones: No acute osseous findings. Soft tissues: Normal. [facility] RIS CONSOLIDATED Jason Barker MD - 07/11/2024 EXAMINATION: TWO XRAY VIEWS OF THE CHEST 07/11/2024 10:51 pm COMPARISON: Chest radiograph 03/26/2024 HISTORY: ORDERING SYSTEM PROVIDED HISTORY: Confusion/AMS TECHNOLOGIST PROVIDED HISTORY: (Select if patient is in hallway or waiting room) Confusion/AMS FINDINGS: Lungs: Clear Pleura: No effusion or pneumothorax. Cardiomediastinal silhouette: Normal contours Bones: No acute osseous findings. Soft tissues: Normal. IMPRESSION: No acute cardiopulmonary process. [facility] Radiology Study observation (narrative) [facility] XR Chest 2 ViewsOrdered By: Jason Barker on 07-11-2024 [facility] Work Phone: BUN & Creatinineon 5 Creatinine [Mass/Vol] 1.2 mg/dL High 0.50 - 0.90 mg/dL [facility] Est, Glom Filt Rate 44 Low - PINF [facility] Comment on above: These results [...] 29 mg/dL High 8 - 23 mg/dL [facility] BUN + Creatinineon 5 Creatinine [Mass/Vol] 1.2 mg/dL High 0.50-0.90 [facility] Comment on above: Performed By: #### T HOANG #### [facility] [address] [place] [address] Antenna Machine Operator: Sharath Dennis MD GFR/1.73 sq M.predicted among non-blacks MDRD (S/P/Bld) [Vol rate/Area] 44 mL/min/{1.73_m2} Low >60 [facility] Comment on above: Result Comment: [...] affects renal tubular secretion. Performed By: #### T LISSYI #### [facility] [address] [place] [address] Antenna Machine Operator: Sharath Dennis MD Urea nitrogen [Mass/Vol] 29 mg/dL High 8-23 [facility] Comment on above: Performed By: #### T LISSYI #### [facility] [address] [place] [address] Antenna Machine Operator: Sharath Dennis MD Brain Natri. Peptideon 05-15 Natriuretic peptide B (Bld) [Mass/Vol] 652 pg/mL High 0-450 [facility] Comment on above: Performed By: #### T HOANG #### [facility] [address] [place] [address] Antenna Machine Operator: Sharath Dennis MD Brain Natriuretic Peptideon 05-15-2024 Natriuretic peptide B (Bld) [Mass/Vol] 652 pg/mL High 0 - 450 pg/mL [facility] CBCon 05-15-2024 Erythrocyte distribution width (RBC) [Ratio] 14.2 % 11.8 - 14.4 % [facility] Hematocrit (Bld) [Volume fraction] 35 % Low 36.3 - 47.1 % [facility] Hemoglobin (Bld) [Mass/Vol] 11 g/dL Low 11.9 - 15.1 g/dL [facility] Interpretation and review of laboratory results Abnormal [facility] MCH (RBC) [Entitic mass] 30 pg 25.2 - 33.5 pg [facility] MCHC (RBC) [Mass/Vol] 31.4 g/dL 28.4 - 34.8 g/dL [facility] MCV (RBC) [Entitic vol] 95.4 fL 82.6 - 102.9 fL [facility] Nucleated RBC/100 WBC (Bld) [Ratio] 0 % 0.0 per 100 WBC [facility] Platelet mean volume (Bld) [Entitic vol] 9.6 fL 8.1 - 13.5 fL [facility] Platelets (Bld) [#/Vol] 227 10*3/uL [facility] RBC (Bld) [#/Vol] 3.67 10*6/uL Low 3.95 - 5.1 1 m/uL [facility] WBC other (Bld) [#/Vol] 6.3 [facility] Erythrocyte distribution width (RBC) [Ratio] 14.2 % Normal 11.8-14.4 [facility] Comment on above: Performed By: #### T ROPI #### [address] [place] [address] Antenna Machine Operator: Sharath Dennis MD Hematocrit (Bld) [Volume fraction] 35.0 % Low 36.3-47.1 [facility] Comment on above: Performed By: #### T ROPI #### [address] [place] [address] Antenna Machine Operator: Sahrath Dennis MD Hemoglobin (Bld) [Mass/Vol] 11.0 g/dL Low 11.9-15.1 [facility] Comment on above: Performed By: #### T ROPI #### [address] [place] [address] Antenna Machine Operator: Sharath Dennis MD MCH (RBC) [Entitic mass] 30.0 pg Normal 25.2-33.5 [facility] Comment on above: Performed By: #### T ROPI #### [address] [place] [address] Antenna Machine Operator: Sharath Dennis MD MCHC (RBC) [Mass/Vol] 31.4 g/dL Normal 28.4-34.8 [facility] Comment on above: Performed By: #### T ROPI #### [facility] [address] [place], [place] [id number] Antenna Machine Operator: Sharath Dennis MD MCV (RBC) [Entitic vol] 95.4 fL Normal 82.6-102.9 [facility] Comment on above: Performed By: #### T ROPI #### [facility] [address] [place], [place] [id number] Antenna Machine Operator: Sharath Dennis MD NRBC Automated 0.0 per 100 WBC Normal 0.0 [facility] Comment on above: Performed By: #### T ROPI #### [facility] [address] [place], [place] 0196983 Antenna Machine Operator: Sharath Dennis MD Platelet mean volume (Bld) [Entitic vol] 9.6 fL Normal 8.1-13.5 [facility] Comment on above: Performed By: #### T ROPI #### [address] [place], [place] [phone] Antenna Machine Operator: Sharath Dennis MD Platelets (Bld) [#/Vol] 227 10*3/uL Normal 138-453 [facility] Comment on above: Performed By: #### T ROPI #### [address] [place], [place] [phone] Antenna Machine Operator: Sharath Dennis MD RBC (Bld) [#/Vol] 3.67 10*6/uL Low 3.95-5.11 [facility] Comment on above: Performed By: #### T ROPI #### [address] [place], [place] 3944383 Antenna Machine Operator: Sharath Dennis MD WBC (Bld) [#/Vol] 6.3 10*3/uL Normal 3.5-11.3 [facility] Comment on above: Performed By: #### T ROPI #### [facility] [address] [place] [address] [place] [address] Antenna Machine Operator: Sharath Dennis MD D-Dimer Teston 05-15-2024 D-Dimer Test 0.72 ug/mL FEU High 0.00-0.59 [facility] Comment on above: Result Comment: When combined [...] patients with distal DVT. Performed By: #### T HOANG #### [facility] [address] [place] [address] [place] [address] Antenna Machine Operator: Sharath Dennis MD D-Dimer, Quantitativeon Fibrin D-dimer FEU (PPP) [Mass/Vol] 0.72 High [facility] Comment on above: When combined with a [...] Interpretation and review of laboratory results Abnormal [facility] Electrolyte Panelon 05-16-19 Anion gap [Moles/Vol] 11 mmol/L 9 - 16 mmol/L [facility] Chloride [Moles/Vol] 106 mmol/L 98 - 10 7 mmol/L [facility] CO2 [Moles/Vol] 23 mmol/L 20 - 31 mmol/L [facility] Potassium [Moles/Vol] 4.6 mmol/L 3.7 - 5.3 mmol/L [facility] Sodium [Moles/Vol] 140 mmol/L 136 - 145 mmol/L [facility] Electrolyteson 05-15-2024 Anion gap [Moles/Vol] 11 mmol/L Normal 9-16 [facility] Comment on above: Performed By: #### T ROPI #### [facility] [address] [place] [address] [place] [address] Antenna Machine Operator: Sharath Dennis MD Chloride [Moles/Vol] 106 mmol/L Normal 98-107 [facility] Comment on above: Performed By: #### T ROPI #### [facility] [address] [place] [address] Antenna Machine Operator: Sharath Dennis MD CO2 [Moles/Vol] 23 mmol/L Normal 20-31 [facility] Comment on above: Performed By: #### T ROPI #### [facility] [address] [place] [id number] Antenna Machine Operator: Sharath Dennis MD Potassium [Moles/Vol] 4.6 mmol/L Normal 3.7-5.3 [facility] Comment on above: Performed By: #### T ROPI #### [facility] [address] [place], [place] [address] Antenna Machine Operator: Sharath Dennis MD Sodium [Moles/Vol] 140 mmol/L Normal 136-145 [facility] Comment on above: Performed By: #### T ROPI #### [facility] [address] [place], [place] [id number] Antenna Machine Operator: Sharath Dennis MD Hemoglobin A1Con 05-15-2024 Average glucose Estimated from glycated hemoglobin (Bld) [Mass/Vol] 114 mg/dL [facility] Comment on above: The ADA and AACC rec ommend providing the estimated average glucose result to permit better patient understanding of their HBA1c result. HbA1c (Bld) [Mass fraction] 5.6 % 4.0 - 6.0 % [facility] Glucose [Mass/Vol] 114 mg/dL Normal [facility] Comment on above: Result Comment: The ADA and AACC recommend providing the estimated average glucose result to permit better patient understanding of their HBA1c result. Performed By: #### T LISSYI #### [facility] [address] [place] [address] [place] [address] Antenna Machine Operator: Sharath Dennis MD HbA1c (Bld) [Mass fraction] 5.6 % Normal 4.0-6.0 [facility] Comment on above: Performed By: #### T ROPI #### [facility] [address] [place] [address] Antenna Machine Operator: Sharath Dennis MD Hepatic Function Panelon Albumin [Mass/Vol] 4.1 g/dL 3.5 - 5.2 g/dL [facility] Albumin/Globulin [Mass ratio] 1.9 {ratio} 1.0 - 2.5 [facility] ALP [Catalytic activity/Vol] 86 U/L 35 - 104 U/L [facility] ALT [Catalytic activity/Vol] 16 U/L 10 - 35 U/L [facility] AST [Catalytic activity/Vol] 23 U/L 10 - 35 U/L [facility] Bilirubin [Mass/Vol] 0.4 mg/dL 0.00 - 1.20 mg/dL [facility] Bilirubin.direct [Mass/Vol] 0.2 mg/dL 0.00 - 0.30 mg/dL [facility] Bilirubin.indirect [Mass/Vol] 0.2 mg/dL 0.0 - 1.0 mg/dL [facility] Protein [Mass/Vol] 6.3 g/dL Low 6.6 - 8.7 g/dL [facility] Lipid Profileon 05-15-2024 Cholesterol [Mass/Vol] 122 mg/dL Normal 0-199 [facility] Comment on above: Cholesterol Guidelines: <200 Desirable 200-240 Borderline >240 Undesirable Result Comment: Cholesterol Guidelines: <200 Desirable 200-240 Borderline >240 Undesirable Performed By: #### T HOANG #### [address] [place] [address] Antenna Machine Operator: Sharath Dennis MD Cholesterol in HDL [Mass/Vol] 80 mg/dL Normal >40 [facility] Comment on above: HDL Guidelines: <40 Undesirable 40-59 Borderline >59 Desirable Result Comment: HDL Guidelines: <40 Undesirable 40-59 Borderline >59 Desirable Performed By: #### T LISSYI #### [facility] [address] [place] [address] [place] [address] Antenna Machine Operator: Sharath Dennis MD Cholesterol in LDL [Mass/Vol] 34 mg/dL Normal 0-100 [facility] Comment on above: LDL Guidelines: <100 Desirable 100-129 Near to/above Desirable 130-159 Borderline >159 Undesirable Direct (measured) LDL and calculated LDL are not interchangeable tests. Result Comment: LDL Guidelines: <100 Desirable 100-129 Near to/above Desirable 130-159 Borderline >159 Undesirable Direct (measured) LDL and calculated LDL are not interchangeable tests. Performed By: #### T ROPI #### [facility] [address] [place], [place] [phone] Antenna Machine Operator: Sharath Dennis MD Cholesterol in VLDL [Mass/Vol] 8 mg/dL Normal 1-30 [facility] Comment on above: Performed By: #### T ROPI #### [facility] [address] [place], [place] [phone] Antenna Machine Operator: Sharath Dennis MD Cholesterol.total/Chol esterol in HDL [Mass ratio] 1.5 {ratio} Normal [facility] Comment on above: Performed By: #### T ROPI #### [facility] [address] [place], [place] [phone] Antenna Machine Operator: Sharath Dennis MD Triglyceride [Mass/Vol] 41 mg/dL Normal <150 [facility] Comment on above: Triglyceride Guidelines: <150 Desirable 150-199 Borderline 200-499 High >499 Very high Based on AHA Guidelines for fasting triglyceride, November 2011. Result Comment: Triglyceride Guidelines: <150 Desirable 150-199 Borderline 200-499 High >499 Very high Based on AHA Guidelines for fasting triglyceride, November 2011. Performed By: #### T ROPI #### [address] [place] [address] Antenna Machine Operator: Sharath Dennis MD Liver Profileon 05-15-2024 Albumin [Mass/Vol] 4.1 g/dL Normal 3.5-5.2 [facility] Comment on above: Performed By: #### T ROPI #### [facility] [address] [place], [place] [phone] Antenna Machine Operator: Sharath Dennis MD Albumin/Glob Ratio 1.9 Normal 1.0-2.5 [facility] Comment on above: Performed By: #### T ROPI #### [facility] [address] [place] [address] Antenna Machine Operator: Sharath Dennis MD Alkaline Phos 86 U/L Normal 35-104 [facility] Comment on above: Performed By: #### T ROPI #### [facility] [address] [place], [place] 6[address] Antenna Machine Operator: Sharath Dennis MD ALT [Catalytic activity/Vol] 16 U/L Normal 10-35 [facility] Comment on above: Performed By: #### T ROPI #### [facility] [address] [place], [place] [phone] Antenna Machine Operator: Sharath Dennis MD AST [Catalytic activity/Vol] 23 U/L Normal 10-35 [facility] Comment on above: Performed By: #### T ROPI #### [address] [place], [place] 6366383 Antenna Machine Operator: Sharath Dennis MD Bilirubin [Mass/Vol] 0.4 mg/dL Normal 0.00-1.20 [facility] Comment on above: Performed By: #### T ROPI #### [address] [place], [place] [phone] Antenna Machine Operator: Sharath Dennis MD Bilirubin, Indirect 0.2 mg/dL Normal 0.0-1.0 [facility] Comment on above: Performed By: #### T ROPI #### [facility] [address] [place] [address] Dr. [place], [facility] Antenna Machine Operator: Sharath Dennis MD Bilirubin.indirect [Mass/Vol] 0.2 mg/dL Normal 0.00-0.30 [facility] Comment on above: Performed By: #### T ROPI #### [facility] [address] [place] [address] [place] [address] Antenna Machine Operator: Sharath Dennis MD Protein [Mass/Vol] 6.3 g/dL Low 6.6-8.7 [facility] Comment on above: Performed By: #### T ROPI #### [address] [place] [phone] Antenna Machine Operator: Sharath Dennis MD No Panel Informationon 05-15 [facility] Interpretation and review of laboratory results Abnormal [facility] TSHon 05-15-2024 TSH Qn 2.56 m[IU]/L [facility] Thyroid Stim. Horm.on 2024 Thyroid Stim. Horm. 2.56 uIU/mL Normal 0.27-4.20 [facility] Comment on above: Performed By: #### T HOANG #### [facility] [address] [place], [place] [phone] Antenna Machine Operator: Sharath Dennis MD Vitamin D 25 Hydroxyon 05-15 25-hydroxyvitamin D3 [Mass/Vol] 59.1 ng/mL 30.0 - 100.0 ng/mL [facility] Comment on above: Reference Range: Vitamin D status Range Deficiency <20 ng/mL Mild Deficiency 20-30 ng/mL Sufficiency 30-100 ng/mL Toxicity >100 ng/mL Vitamin D 25 OHon 05-15-2024 Vitamin D 25 OH 59.1 ng/mL Normal 30.0-100.0 [facility] Comment on above: Result Comment: Reference Range: Vitamin D status Range Deficiency <20 ng/mL Mild Deficiency 20-30 ng/mL Sufficiency 30-100 ng/mL Toxicity >100 ng/mL Performed By: #### T HOANG #### [facility] [address] [place] [phone] Antenna Machine Operator: Sharath Dennis MD Cult,Urineon 03-29-2024 Cult,Urine Specimen [...] Tobramycin <=1 SUSCEPTIBLE Trimethoprim/Sulfa <=20 SUSCEPTIBLE Susceptible [facility] Comment on above: Performed By: #### U #### [facility] [address] [place] [address] Antenna Machine Operator: Wellington Back MD CBC with Auto Differentialon 03-26-2024 Basophils (Bld) [#/Vol] [facility] Basophils/100 WBC (Bld) 0 % 0 - 2 % [facility] Eosinophils (Bld) [#/Vol] 0.13 10*3/uL [facility] Eosinophils/100 WBC (Bld) 1 % 1 - 4 % [facility] Erythrocyte distribution width (RBC) [Ratio] 14.7 % High 11.8 - 14.4 % [facility] Hematocrit (Bld) [Volume fraction] 38.2 % 36.3 - 47.1 % [facility] Hemoglobin (Bld) [Mass/Vol] 12.3 g/dL 11.9 - 15.1 g/dL [facility] Immature granulocytes (Bld) [#/Vol] 0.06 10*3/uL [facility] Immature granulocytes/100 WBC (Bld) 1 % High 0 [facility] Interpretation and review of laboratory results Abnormal [facility] Lymphocytes/100 WBC (Bld) 16 % Low 24 - 43 % [facility] Lymphocytes/100 WBC (Bld) 1.61 % [facility] MCH (RBC) [Entitic mass] 30.3 pg 25.2 - 33.5 pg [facility] MCHC (RBC) [Mass/Vol] 32.2 g/dL 28.4 - 34.8 g/dL [facility] MCV (RBC) [Entitic vol] 94.1 fL 82.6 - 102.9 fL [facility] Monocytes/100 WBC (Bld) 11 % 3 - 12 % [facility] Monocytes/100 WBC (Bld) 1.11 % [facility] Neutrophils/100 WBC (Bld) 71 % High 36 - 65 % [facility] Nucleated RBC/100 WBC (Bld) [Ratio] 0.0 % 0.0 per 100 WBC [facility] Platelet mean volume (Bld) [Entitic vol] 8.8 fL 8.1 - 13.5 fL [facility] Platelets (Bld) [#/Vol] 333 10*3/uL [facility] RBC (Bld) [#/Vol] 4.06 10*6/uL 3.95 - 5.1 1 m/uL [facility] Segmented neutrophils/100 WBC (Bld) 6.91 % [facility] WBC other (Bld) [#/Vol] 9.8 [facility] CBC with Diffon 03-26-2024 Abs. Basophil <0.03 Normal 0.00-0.20 [facility] Comment on above: Performed By: #### T ROPI #### [facility] [address] [place] [address] [address] [place] [phone] Antenna Machine Operator: Sharath Dennis MD Abs.Imm.Granulocyte 0.06 k/uL Normal 0.00-0.30 [facility] Comment on above: Performed By: #### T ROPI #### [address] [place] [address]29883 Antenna Machine Operator: Sharath Dennis MD Abs.Neutrophil (Seg) 6.91 k/uL Normal 1.50-8.10 [facility] Comment on above: Performed By: #### T ROPI #### [address] [place], [facility] Antenna Machine Operator: Sharath Dennis MD Basophils/100 WBC (Bld) 0 % Normal 0-2 [facility] Comment on above: Performed By: #### T ROPI #### [address] [place] [address]29883 Antenna Machine Operator: Sharath Dennis MD Eosinophils (Bld) [#/Vol] 0.13 10*3/uL Normal 0.00-0.44 [facility] Comment on above: Performed By: #### T ROPI #### [facility] [address] [place], [facility] Antenna Machine Operator: Sharath Dennis MD Eosinophils/100 WBC (Bld) 1 % Normal 1-4 [facility] Comment on above: Performed By: #### T ROPI #### [facility] [address] [place], [facility] Antenna Machine Operator: Sharath Dennis MD Erythrocyte distribution width (RBC) [Ratio] 14.7 % High 11.8-14.4 [facility] Comment on above: Performed By: #### T ROPI #### [facility] [address] [place], [facility] Antenna Machine Operator: Sharath Dennis MD Hematocrit (Bld) [Volume fraction] 38.2 % Normal 36.3-47.1 [facility] Comment on above: Performed By: #### T ROPI #### [facility] [address] [place], [facility] Antenna Machine Operator: Sharath Dennis MD Hemoglobin (Bld) [Mass/Vol] 12.3 g/dL Normal 11.9-15.1 [facility] Comment on above: Performed By: #### T ROPI #### [facility] [address] [place], [facility] Antenna Machine Operator: Sharath Dennis MD Immature granulocytes/100 WBC (Bld) 1 % High 0 [facility] Comment on above: Performed By: #### T ROPI #### [facility] [address] [place], [facility] Antenna Machine Operator: Sharath Dennis MD Lymphocytes (Bld) [#/Vol] 1.61 10*3/uL Normal 1.10-3.70 [facility] Comment on above: Performed By: #### T ROPI #### [facility] [address] [place] [address] Dr[address] [place], [facility] Antenna Machine Operator: Sharath Dennis MD Lymphocytes/100 WBC (Bld) 16 % Low 24-43 [facility] Comment on above: Performed By: #### T ROPI #### [facility] [address] [place], [place] [phone] Antenna Machine Operator: Sharath Dennis MD MCH (RBC) [Entitic mass] 30.3 pg Normal 25.2-33.5 [facility] Comment on above: Performed By: #### T ROPI #### [facility] [address] [place], [place] [phone] Antenna Machine Operator: Sharath Dennis MD MCHC (RBC) [Mass/Vol] 32.2 g/dL Normal 28.4-34.8 [facility] Comment on above: Performed By: #### T ROPI #### [address] [place], [place] [phone] Antenna Machine Operator: Sharath Dennis MD MCV (RBC) [Entitic vol] 94.1 fL Normal 82.6-102.9 [facility] Comment on above: Performed By: #### T ROPI #### [facility] [address] [place], [place] [phone] Antenna Machine Operator: Sharath Dennis MD Monocytes (Bld) [#/Vol] 1.11 10*3/uL Normal 0.10-1.20 [facility] Comment on above: Performed By: #### T ROPI #### [facility] [address] [place], [place] [phone] Antenna Machine Operator: Sharath Dennis MD Monocytes/100 WBC (Bld) 11 % Normal 3-12 [facility] Comment on above: Performed By: #### T ROPI #### [facility] [address] [place], [place] 1000583 Antenna Machine Operator: Sharath Dennis MD Neutrophil (Seg) 71 % High 36-65 [facility] Comment on above: Performed By: #### T ROPI #### [facility] [address] [place], [place] 0355783 Antenna Machine Operator: Sharath Dennis MD NRBC Automated 0.0 per 100 WBC Normal 0.0 [facility] Comment on above: Performed By: #### T ROPI #### [facility] [address] [place], [place] 2500883 Antenna Machine Operator: Sharath Dennis MD Platelet mean volume (Bld) [Entitic vol] 8.8 fL Normal 8.1-13.5 [facility] Comment on above: Performed By: #### T ROPI #### [facility] [address] [place], [place] [phone] Antenna Machine Operator: Sharath Dennis MD Platelets (Bld) [#/Vol] 333 10*3/uL Normal 138-453 [facility] Comment on above: Performed By: #### T ROPI #### [facility] [address] [place], [place] [phone] Antenna Machine Operator: Sharath Dennis MD RBC (Bld) [#/Vol] 4.06 10*6/uL Normal 3.95-5.11 [facility] Comment on above: Performed By: #### T ROPI #### [facility] [address] [place], [place] [phone] Antenna Machine Operator: Sharath Dennis MD WBC (Bld) [#/Vol] 9.8 10*3/uL Normal 3.5-11.3 [facility] Comment on above: Performed By: #### T ROPI #### [facility] [address] [place] [address] Antenna Machine Operator: Sharath Dennis [facility] Albumin [Mass/Vol] 4.3 g/dL 3.5 - 5.2 g/dL [facility] Albumin/Globulin [Mass ratio] 1.7 {ratio} 1.0 - 2.5 [facility] ALP [Catalytic activity/Vol] 96 U/L 35 - 104 U/L [facility] ALT [Catalytic activity/Vol] 14 U/L 10 - 35 U/L [facility] Anion gap [Moles/Vol] 11 mmol/L 9 - 16 mmol/L [facility] AST [Catalytic activity/Vol] 21 U/L 10 - 35 U/L [facility] Bilirubin [Mass/Vol] 0.5 mg/dL 0.00 - 1.20 mg/dL [facility] Calcium [Mass/Vol] 9.4 mg/dL 8.6 - 10. 4 mg/dL [facility] Chloride [Moles/Vol] 107 mmol/L 98 - 10 7 mmol/L [facility] CO2 [Moles/Vol] 25 mmol/L 20 - 31 mmol/L [facility] Creatinine [Mass/Vol] 1.0 mg/dL High 0.50 - 0.90 mg/dL [facility] Est, Glom Filt Rate 58 Low - PINF [facility] Comment on above: These results are not [...] [Mass/Vol] 95 mg/dL 74 - 99 mg/dL [facility] Potassium [Moles/Vol] 4.4 mmol/L 3.7 - 5.3 mmol/L [facility] Protein [Mass/Vol] 6.8 g/dL 6.6 - 8.7 g/dL [facility] Sodium [Moles/Vol] 143 mmol/L 136 - 145 mmol/L [facility] Urea nitrogen [Mass/Vol] 33 mg/dL High 8 - 23 mg/dL [facility] Urea nitrogen/Creatinine [Mass ratio] 33 mg/mg High 9 - [address] [facility] [address] Head WO contraston 02-16- 2025 Addendum by Agnes Alfonso MD on 03/26/2024 3:32 PM EST ADDENDUM: Results were reported to Dr. Baxter by radiology results communication at 3:27 p.m. on March 26, 2024. [facility] No acute intracrania l abnormality. [facility] EXAMINATION: CT OF THE HEAD WITHOUT [...] of the visualized skull or soft tissues. [facility] Angelito Alfonso MD - 03/26/2024 EXAMINATION: [...] soft tissues. IMPRESSION: No acute intracranial abnormality. [facility] Radiology Study observation (narrative) [facility] CT Head WO contrastOrdered B y: Angelito Alfonso on 03-26-2024 [facility] Work Phone: CTA HEAD NECK W CONTRASTon [...] Angelito Alfonso MD 03/26/24 Final result Normal [facility] CTA Head vessels and Neck ve ssels W contrast Bernardo 03-26-2024 No large vessel occlusion in the head or neck. 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 [facility] EXAMINATION: CTA OF THE HEAD [...] fluid collection. The kevin-white differentiation is maintained. [facility] Angelito Rivera MD - 03/26/2024 EXAMINATION: CTA [...] proximal to mid basilar artery, normal variant. [facility] Radiology Study observation (narrative) [facility] Comp Metabolic Profon 2024 Albumin [Mass/Vol] 4.3 g/dL Normal 3.5-5.2 [facility] Comment on above: Performed By: #### T ROPI #### [facility] [address] [place], [place] [id number] Antenna Machine Operator: Sharath Dennis MD Albumin/Glob Ratio 1.7 Normal 1.0-2.5 [facility] Comment on above: Performed By: #### T ROPI #### [facility] [address] [place], [place] [id number] Antenna Machine Operator: Sharath Dennis MD Alkaline Phos 96 U/L Normal 35-104 [facility] Comment on above: Performed By: #### T ROPI #### [facility] [address] [place] [address] Antenna Machine Operator: Sharath Dennis MD ALT [Catalytic activity/Vol] 14 U/L Normal 10-35 [facility] Comment on above: Performed By: #### T ROPI #### [facility] [address] [place] [address] Antenna Machine Operator: Sharath Dennis MD Anion gap [Moles/Vol] 11 mmol/L Normal 9-16 [facility] Comment on above: Performed By: #### T ROPI #### [facility] [address] [place] [address] Dr. [place] [id number] Antenna Machine Operator: Sharath Dennis MD AST [Catalytic activity/Vol] 21 U/L Normal 10-35 [facility] Comment on above: Performed By: #### T ROPI #### [facility] [address] [place], [place] [id number] Antenna Machine Operator: Sharath Dennis MD Bilirubin [Mass/Vol] 0.5 mg/dL Normal 0.00-1.20 [facility] Comment on above: Performed By: #### T ROPI #### [facility] [address] [place], [place] 16[address] Antenna Machine Operator: Sharath Dennis MD BUN/CRE Ratio 33 High 9-20 [facility] Comment on above: Performed By: #### T ROPI #### [facility] [address] [place], [place] [id number] Antenna Machine Operator: Sharath Dennis MD Calcium [Mass/Vol] 9.4 mg/dL Normal 8.6-10.4 [facility] Comment on above: Performed By: #### T ROPI #### [facility] [address] [place], [place] [phone] Antenna Machine Operator: Sharath Dennis MD Chloride [Moles/Vol] 107 mmol/L Normal 98-107 [facility] Comment on above: Performed By: #### T ROPI #### [facility] [address] [place], [place] [phone] Antenna Machine Operator: Sharath Dennis MD CO2 [Moles/Vol] 25 mmol/L Normal 20-31 [facility] Comment on above: Performed By: #### T ROPI #### [facility] [address] [place], [place] [phone] Antenna Machine Operator: Sharath Dennis MD Creatinine [Mass/Vol] 1.0 mg/dL High 0.50-0.90 [facility] Comment on above: Performed By: #### T ROPI #### [facility] [address] [place] [address] Antenna Machine Operator: Sharath Dennis MD GFR/1.73 sq M.predicted among non-blacks MDRD (S/P/Bld) [Vol rate/Area] 58 mL/min/{1.73_m2} Low >60 [facility] Comment on above: Result Comment: [...] affects renal tubular secretion. Performed By: #### T ROPI #### [address] [place] [address] Antenna Machine Operator: Sharath Dennis MD Glucose [Mass/Vol] 95 mg/dL Normal 74-99 [facility] Comment on above: Performed By: #### T ROPI #### [address] [place] [address] Antenna Machine Operator: Sharath Dennis MD Potassium [Moles/Vol] 4.4 mmol/L Normal 3.7-5.3 [facility] Comment on above: Performed By: #### T ROPI #### [facility] [address] [place] [address] Antenna Machine Operator: Sharath Dennis MD Protein [Mass/Vol] 6.8 g/dL Normal 6.6-8.7 [facility] Comment on above: Performed By: #### T ROPI #### [facility] [address] [place] [address] Antenna Machine Operator: Sharath Dennis MD Sodium [Moles/Vol] 143 mmol/L Normal 136-145 [facility] Comment on above: Performed By: #### T ROPI #### [facility] [address] [place], [place] [id number] Antenna Machine Operator: Sharath Dennis MD Urea nitrogen [Mass/Vol] 33 mg/dL High 8-23 [facility] Comment on above: Performed By: #### T LISSYI #### [facility] [address] [place], [place] [phone] Antenna Machine Operator: Sharath Dennis MD Glucose, Whole Bloodon 03-26 Glucose [Mass/Vol] 77 mg/dL 74 - 100 mg/dL [facility] Glucose, Whole BloodOrdered By: Marbella Bernstein on 03-26-2024 Glucose [Mass/Vol] 77 mg/dL Normal 74-100 [facility] Microscopic Urinalysison Bacteria LM Ql (Urine sed) 2+ Abnormal None [facility] Character (U) Urine Reflexed to Culture Abnormal NOT REQ. [facility] Epithelial cells LM.HPF (Urine sed) [#/Area] 0 TO 2 [facility] Interpretation and review of laboratory results Abnormal [facility] RBC LM.HPF (Urine sed) [#/Area] 0 TO 2 [facility] WBC LM.HPF (Urine sed) [#/Area] 10 TO 20 [facility] No Panel Informationon 03-26 Interpretation and review of laboratory results Abnormal [facility] POCT glucoseOrdered By: Mery Bernstein on 03-26-2024 Interpretation and review of laboratory results Normal [facility] QC OK? yes [facility] Portable XR Chest AP single viewon 03-26-2024 No radiographic evidence of an acute cardiopulmonary process. [facility] EXAMINATION: ONE XRAY VIEW OF THE CHEST 03/26/2024 2:03 pm COMPARISON: 04/04/2023. HISTORY: ORDERING SYSTEM PROVIDED HISTORY: Shortness of Breath TECHNOLOGIST PROVIDED HISTORY: Shortness of Breath aphasia FINDINGS: The lungs and costophrenic angles are clear. The cardiomediastinal silhouette, pulmonary vessels and interstitium appear normal. [facility] Jose Holt MD - 03/26/2024 EXAMINATION: ONE XRAY VIEW OF THE CHEST 03/26/2024 2:03 pm COMPARISON: 04/04/2023. HISTORY: ORDERING SYSTEM PROVIDED HISTORY: Shortness of Breath TECHNOLOGIST PROVIDED HISTORY: Shortness of Breath aphasia FINDINGS: The lungs and costophrenic angles are clear. The cardiomediastinal silhouette, pulmonary vessels and interstitium appear normal. IMPRESSION: No radiographic evidence of an acute cardiopulmonary process. [facility] Radiology Study observation (narrative) [facility] Portable XR Chest AP single viewOrdered By: Jose Holt on 03-26-2024 [facility] Work Phone: Troponinon 03-26-2024 Troponin I.cardiac High sensitivity method [Mass/Vol] 25 ng/L High 0 - 14 ng/L [facility] Comment on above: High Sensitivity Tro ponin values cannot be compared with other Troponin methodologies. Troponin, High Sens 25 ng/L High 0-14 [facility] Comment on above: Result Comment: High Sensitivity Troponin values cannot be compared with other Troponin methodologies. Performed By: #### T ROPI #### [facility] [address] [place] [address] Antenna Machine Operator: Sharath Dennis MD UA w/Reflex Cultureon 2024 Bilirubin, SemiQt,Ur Negative Normal NEG [facility] Comment on above: Performed By: #### U RC #### [address] [address] Antenna Machine Operator: Wellington Back MD Blood, Urine Negative Normal NEG [facility] Comment on above: Performed By: #### U RC #### [facility] [employer] [facility] [place] [address] Antenna Machine Operator: Wellington Back MD Clarity (U) Clear Normal CLEAR [facility] Comment on above: Performed By: #### U RC #### [address] [address] Antenna Machine Operator: Wellington Back MD Color (U) Yellow Normal YEL [facility] Comment on above: Performed By: #### U RC #### [address] [address] Antenna Machine Operator: Wellington Back MD Glucose Ql (U) Negative Normal NEG [facility] Comment on above: Performed By: #### U RC #### [address] [address] Antenna Machine Operator: Wellington Back MD Ketones Ql (U) Negative [facility]G [facility] Comment on above: Performed By: #### U RC #### [address] [address] Antenna Machine Operator: Wellington Back MD Leukocyte esterase Test strip Ql (U) SMALL Abnormal NEG [facility] Comment on above: Performed By: #### U RC #### [address] [address] Antenna Machine Operator: Wellington Back MD Nitrite,Ur Positive Abnormal NEG [facility] Comment on above: Performed By: #### U RC #### [address] [address] Antenna Machine Operator: Wellington Back MD PH,Ur 6.0 Normal 5.0-9.0 [facility] Comment on above: Performed By: #### U RC #### [address] [address] Antenna Machine Operator: Wellington Back MD Protein Ql (U) Negative Normal NEG [facility] Comment on above: Performed By: #### U RC #### [address] [address] Antenna Machine Operator: Wellington Back MD Spec. [place],Ur 1.010 Normal 1.010-1.020 [facility] Comment on above: Performed By: #### U RC #### [place] [id number] Antenna Machine Operator: Wellington Back MD Urobilinogen,Ur Normal Normal 0.0-1.0 [facility] Comment on above: Performed By: #### U RC #### [facility] [address] [place], [place] [address] Antenna Machine Operator: Wellington Back MD Urinalysis with Reflex to Cu ltureon 03-26-2024 Bilirubin Ql (U) Negative NEGATIVE [facility] Clarity (U) Clear Clear [facility] Color (U) Yellow Yellow [facility] Glucose Test strip (U) [Mass/Vol] Negative NEGATIVE mg/dL [facility] Hemoglobin Auto test strip Ql (U) Negative NEGATIVE [facility] Interpretation and review of laboratory results Abnormal [facility] Ketones (U) [Mass/Vol] Negative NEGAT MAJOR mg/dL [facility] Leukocyte esterase Test strip Ql (U) SMALL Abnormal NEGATIVE [facility] Nitrite Ql (U) Positive Abnormal NEGATIVE [facility] pH (U) 6.0 [pH] 5.0 - 9.0 [facility] Protein (U) [Mass/Vol] Negative NEGAT MAJOR mg/dL [facility] Specific gravity (U) [Rel density] 1.010 1.010 - 1.020 [facility] Urobilinogen Qn (U) Normal 0.0 - 1. 0 EU/dL [facility] Urinalysis,Microon 5 Bacteria 2+ Abnormal NONE [facility] Comment on above: Performed By: #### U RC #### [facility] [address] [place], [place] [id number] Antenna Machine Operator: Wellington Back MD Epithelial cells LM Ql (Urine sed) 0 TO 2 Normal 0-25 [facility] Comment on above: Performed By: #### U RC #### [facility] [employer] [address] [place], [place] [id number] Antenna Machine Operator: Wellington Back MD Other Observations Urine Reflexed to Culture Abnormal NREQ [facility] Comment on above: Performed By: #### U RC #### [facility] [address] [place], [place] [phone] Antenna Machine Operator: Wellington Back MD Urine RBC's 0 TO 2 Normal 0-2 [facility] Comment on above: Performed By: #### U RC #### [facility] [employer] [address] [place], [place] [phone] Antenna Machine Operator: Wellington Back MD Urine WBC's 10 TO 20 Normal 0-5 [facility] Comment on above: Performed By: #### U RC #### [facility] [address] [place] [address] Antenna Machine Operator: Wellington Back MD XR CHEST PORTABLEon 03-26-19 XR CHEST [...] Jose Holt MD 03/26/24 Final result Normal [facility] CT LUMBAR SPINE WO CONTRASTo [...] Holden Simon MD 02/17/24 Final result Normal [facility] CT Lumbar spine WO contrasto [...] significant osseous neuroforaminal stenosis. Imaged abdomen/pelvis: Unremarkable. [facility] Holden Simon MD - 02/17/2024 [...] 20% height loss. 2. Multilevel lumbar spondylosis. [facility] CT Lumbar spine WO contrastO rdered By: Holden Simon on 02-17-[address] [facility] [address] Lumbar spine WO contrasto n 02-16-2024 Radiology Study observation (narrative) [facility] Microscopic Urinalysison Bacteria LM Ql (Urine sed) TRACE Abnormal None [facility] Epithelial cells LM.HPF (Urine sed) [#/Area] 2 TO 5 [facility] Interpretation and review of laboratory results Abnormal [facility] RBC LM.HPF (Urine sed) [#/Area] 0 TO 2 [facility] WBC LM.HPF (Urine sed) [#/Area] 2 TO 5 [facility] UA w/Reflex Cultureon 2023 Bilirubin, SemiQt,Ur Negative Normal NEG [facility] Comment on above: Performed By: #### U ARMAND UAX #### [facility] [address] [place] [address] Antenna Machine Operator: Sharath Dennis MD Blood, Urine Negative Normal NEG [facility] Comment on above: Performed By: #### U ARMAND UAX #### [facility] [address] [place] [address] Antenna Machine Operator: Sharath Dennis MD Clarity (U) Clear Normal CLEAR [facility] Comment on above: Performed By: #### U ARMAND UAX #### [facility] [address] [place] [address] Antenna Machine Operator: Sharath Dennis MD Color (U) Yellow Normal YEL [facility] Comment on above: Performed By: #### U LASHANDAO UAX #### [facility] [address] [place], [place] [phone] Antenna Machine Operator: Sharath Dennis MD Glucose Ql (U) Negative Normal NEG [facility] Comment on above: Performed By: #### U MICAO, UAX #### [facility] [address] [place], [place] [phone] Antenna Machine Operator: Sharath Dennis MD Ketones Ql (U) Negative Normal NEG [facility] Comment on above: Performed By: #### U MICAO, UAX #### [facility] [address] [place] [address] Dr. [place], [place] [phone] Antenna Machine Operator: Sharath Dennis MD Leukocyte esterase Test strip Ql (U) SMALL Abnormal NEG [facility] Comment on above: Performed By: #### U MICAO, UAX #### [address] [place], [facility] Antenna Machine Operator: Sharath Dennis MD Nitrite,Ur Negative Normal NEG [facility] Comment on above: Performed By: #### U MICAO, UAX #### [address] [place], [place] [address]83 Antenna Machine Operator: Sharath Dennis MD PH,Ur 6.0 Normal 5.0-9.0 [facility] Comment on above: Performed By: #### U MICAO, UAX #### [facility] [address] [place] [address] [place]. [place], [place] 1623783 Antenna Machine Operator: Sharath Dennis MD Protein Ql (U) Negative Normal NEG [facility] Comment on above: Performed By: #### U MICAO, UAX #### [facility] [address] [place] [address] Dr. [place], [place] [phone] Antenna Machine Operator: Sharath Dennis MD Spec. [place],Ur 1.015 Normal 1.010-1.020 [facility] Comment on above: Performed By: #### U MICAO, UAX #### [facility] [address] [place] [address] Antenna Machine Operator: Sharath Dennis MD Urobilinogen,Ur Normal Normal 0.0-1.0 [facility] Comment on above: Performed By: #### U LASHANDAO, UAX #### [facility] [address] [place] [address] Antenna Machine Operator: Sharath Dennis MD Urinalysis with Reflex to Cu ltureon 01-21-2024 Bilirubin Ql (U) Negative NEGATIVE [facility] Clarity (U) Clear Clear [facility] Color (U) Yellow Yellow [facility] Glucose Test strip (U) [Mass/Vol] Negative NEGATIVE mg/dL [facility] Hemoglobin Auto test strip Ql (U) Negative NEGATIVE [facility] Interpretation and review of laboratory results Abnormal [facility] Ketones (U) [Mass/Vol] Negative NEGAT MAJOR mg/dL [facility] Leukocyte esterase Test strip Ql (U) SMALL Abnormal NEGATIVE [facility] Nitrite Ql (U) Negative NEGATIVE [facility] pH (U) 6.0 [pH] 5.0 - 9.0 [facility] Protein (U) [Mass/Vol] Negative NEGAT MAJOR mg/dL [facility] Specific gravity (U) [Rel density] 1.015 1.010 - 1.020 [facility] Urobilinogen Qn (U) Normal 0.0 - 1. 0 EU/dL [facility] Urinalysis,Microon 4 Bacteria TRACE Abnormal NONE [facility] Comment on above: Performed By: #### U ARMAND UAX #### [facility] [address] [place] [address] Antenna Machine Operator: Sharath Dennis MD Epithelial cells LM Ql (Urine sed) 2 TO 5 Normal 0-25 [facility] Comment on above: Performed By: #### U ARMAND UAX #### [facility] [address] [place] [address] Antenna Machine Operator: Sharath Dennis MD Urine RBC's 0 TO 2 Normal 0-2 [facility] Comment on above: Performed By: #### U MICAO, UAX #### [facility] [address] [place], [place] [phone] Antenna Machine Operator: Sharath Dennis MD Urine WBC's 2 TO 5 Normal 0-5 [facility] Comment on above: Performed By: #### U MICAO, UAX #### [facility] [address] [place], [place] [phone] Antenna Machine Operator: Sharath Dennis MD XR LUMBAR SPINE (2-3 [...] Kel Hennessy MD 01/21/24 Final result Normal [facility] XR Lumbar spine 2 or 3 Views on 01-21-2024 Multilevel degenerative change without acute abnormality of the lumbar spine. [facility] EXAMINATION: 3 XRAY VIEWS OF THE [...] joints. The surrounding soft tissues are unremarkable. [facility] Kel Hennessy MD - 01/21/2024 EXAMINATION: [...] without acute abnormality of the lumbar spine. [facility] Radiology Study observation (narrative) [facility] XR Lumbar spine 2 or 3 Views Ordered By: Kel Hennessy on 01-21-2024 [facility] Work Phone: Hemoglobin A1Con 10-23-2023 Glucose [Mass/Vol] 123 mg/dL Normal [facility] Comment on above: Result Comment: The ADA and AACC recommend providing the estimated average glucose result to permit better patient understanding of their HBA1c result. Performed By: #### Erin ACUNA UAX #### [facility] [address] [place] [address] [place] [address] Antenna Machine Operator: Sharath Dennis MD HbA1c (Bld) [Mass fraction] 5.9 % Normal 4.0-6.0 [facility] Comment on above: Performed By: #### Erin ACUNA UAX #### [facility] [address] [place] [address] Antenna Machine Operator: Sharath Dennis MD Lipid Profileon 10-23-2023 Cholesterol [Mass/Vol] 146 mg/dL Normal 0-199 [facility] Comment on above: Result Comment: Cholesterol Guidelines: <200 Desirable 200-240 Borderline >240 Undesirable Performed By: #### U ARMAND, UAX #### [facility] [address] [place] [address] Antenna Machine Operator: Sharath Dennis MD Cholesterol in HDL [Mass/Vol] 87 mg/dL Normal >40 [facility] Comment on above: Result Comment: HDL Guidelines: <40 Undesirable 40-59 Borderline >59 Desirable Performed By: #### U ARMAND, UAX #### [facility] [address] [place] [address] Antenna Machine Operator: Sharath Dennis MD Cholesterol in LDL [Mass/Vol] 50 mg/dL Normal 0-100 [facility] Comment on above: Result Comment: LDL Guidelines: <100 Desirable 100-129 Near to/above Desirable 130-159 Borderline >159 Undesirable Direct (measured) LDL and calculated LDL are not interchangeable tests. Performed By: #### U ARMAND, UAX #### [facility] [address] [place], [place] [phone] Antenna Machine Operator: Sharath Dennis MD Cholesterol in VLDL [Mass/Vol] 9 mg/dL Normal [facility] Comment on above: Performed By: #### Erin ACUNA, UAX #### [facility] [address] [place] [address] Antenna Machine Operator: Sharath Dennis MD Cholesterol.total/Chol esterol in HDL [Mass ratio] 2.0 {ratio} Normal [facility] Comment on above: Performed By: #### Erin ACUNA UAX #### [facility] [address] [place] [address] Antenna Machine Operator: Sharath Dennis MD Triglyceride [Mass/Vol] 45 mg/dL Normal <150 [facility] Comment on above: Result Comment: Triglyceride Guidelines: <150 Desirable 150-199 Borderline 200-499 High >499 Very high Based on AHA Guidelines for fasting triglyceride, November 2011. Performed By: #### U ARMAND, UAX #### [facility] [address] [place] [address] Antenna Machine Operator: Sharath Dennis MD BUN (Urea N)on 10-22-2023 Urea nitrogen [Mass/Vol] 29 mg/dL High 09-30 [facility] Comment on above: Performed By: #### D RAYSA, LYTE, TSH, CBC, CREG, LIVP, BUN, BNP #### [facility] [address] [place] [address] Antenna Machine Operator: Sharath Dennis MD #### GLYHGB, LIPR #### [place] [address] [place], [place] [id number] Antenna Machine Operator: Wellington Back MD Brain Natri. Peptideon 10-21 Natriuretic peptide B (Bld) [Mass/Vol] 422 pg/mL Normal 0-450 [facility] Comment on above: Performed By: #### D RAYSA, LYTE, TSH, CBC, CREG, LIVP, BUN, BNP #### [facility] [address] [place] [address] [place] [address] Antenna Machine Operator: Sharath Dennis MD #### GLYHGSunil, LIPR #### [address] [address] Antenna Machine Operator: Wellington Back MD [facility] Erythrocyte distribution width (RBC) [Ratio] 13.8 % Normal 11.8-14.4 [facility] Comment on above: Performed By: #### Jasmin RAYSA, LYTE, TSH, CBC, CREG, LIVP, BUN, BNP #### [address] [place] [id number] Antenna Machine Operator: Sharath Dennis MD #### MILLY, LIPR #### [address] [id number] Antenna Machine Operator: Wellington Back MD Hematocrit (Bld) [Volume fraction] 36.4 % Normal 36.3-47.1 [facility] Comment on above: Performed By: #### D RAYSA, LYTE, TSH, CBC, CREG, LIVP, BUN, BNP #### [address] [place] [address] Antenna Machine Operator: Sharath Dennis MD #### GLYHGSunil, LIPR #### [address] [id number] Antenna Machine Operator: Wellington Back MD Hemoglobin (Bld) [Mass/Vol] 11.6 g/dL Low 11.9-15.1 [facility] Comment on above: Performed By: #### Jasmin RAYSA, LYTE, TSH, CBC, CREG, LIVP, BUN, BNP #### [address] [place] [phone] Antenna Machine Operator: Sharath Dennis MD #### GLYHGB, LIPR #### [address] [phone] Antenna Machine Operator: Wellington Back MD MCH (RBC) [Entitic mass] 29.6 pg Normal 25.2-33.5 [facility] Comment on above: Performed By: #### Jasmin RAYSA, LYTE, TSH, CBC, CREG, LIVP, BUN, BNP #### [address] [place] [phone] Antenna Machine Operator: Sharath Dennis MD #### GLYHGB, LIPR #### [place] [id number] Antenna Machine Operator: Wellington Back MD MCHC (RBC) [Mass/Vol] 31.9 g/dL Normal 28.4-34.8 [facility] Comment on above: Performed By: #### Jasmin RAYSA, LYTE, TSH, CBC, CREG, LIVP, BUN, BNP #### [address] [place] [phone] Antenna Machine Operator: Sharath Dennis MD #### GLYHGB, LIPR #### [place] [address] [place], [place] [phone] Antenna Machine Operator: Wellington Back MD MCV (RBC) [Entitic vol] 92.9 fL Normal 82.6-102.9 [facility] Comment on above: Performed By: #### Jasmin RAYSA, LYTE, TSH, CBC, CREG, LIVP, BUN, BNP #### [address] [place] [address] Antenna Machine Operator: Sharath Dennis MD #### GLYHGB, LIPR #### [address] [phone] Antenna Machine Operator: Wellington Back MD NRBC Automated 0.0 per 100 WBC Normal 0.0 [facility] Comment on above: Performed By: #### D RAYSA, LYTE, TSH, CBC, CREG, LIVP, BUN, BNP #### [address] [place] [phone] Antenna Machine Operator: Sharath Dennis MD #### GLYHGB, LIPR #### [address] [phone] Antenna Machine Operator: Wellington Back MD Platelet mean volume (Bld) [Entitic vol] 9.9 fL Normal 8.1-13.5 [facility] Comment on above: Performed By: #### D RAYSA, LYTE, TSH, CBC, CREG, LIVP, BUN, BNP #### [address] [place] [phone] Antenna Machine Operator: Sharath Dennis MD #### ANDREIHGSunil, LIPR #### [address] [address] Antenna Machine Operator: Wellington Back MD Platelets (Bld) [#/Vol] 291 10*3/uL Normal 138-453 [facility] Comment on above: Performed By: #### D RAYSA, LYTE, TSH, CBC, CREG, LIVP, BUN, BNP #### [address] [place], [place] [phone] Antenna Machine Operator: Sharath Dennis MD #### GLYHGB, LIPR #### [address] [phone] Antenna Machine Operator: Wellington Back MD RBC (Bld) [#/Vol] 3.92 10*6/uL Low 3.95-5.11 [facility] Comment on above: Performed By: #### D RAYSA, LYTE, TSH, CBC, CREG, LIVP, BUN, BNP #### [facility] [address] [place], [place] [phone] Antenna Machine Operator: Sharath Dennis MD #### GLYHGB, LIPR #### [facility] [address] [place], [place] [phone] Antenna Machine Operator: Wellington Back MD WBC (Bld) [#/Vol] 7.7 10*3/uL Normal 3.5-11.3 [facility] Comment on above: Performed By: #### D RAYSA, LYTE, TSH, CBC, CREG, LIVP, BUN, BNP #### [address] [place] [address] Antenna Machine Operator: Sharath Dennis MD #### GLYALMA, LIPR #### [facility] [address] [place], [place] [phone] Antenna Machine Operator: Wellington Back MD Creatinine w/GFRon 4 Creatinine [Mass/Vol] 1.1 mg/dL High 0.50-0.90 [facility] Comment on above: Performed By: #### U MICAO, UAX #### [address] [place] [phone] Antenna Machine Operator: Sharath Dennis MD GFR/1.73 sq M.predicted among non-blacks MDRD (S/P/Bld) [Vol rate/Area] 50 mL/min/{1.73_m2} Low >60 [facility] Comment on above: Result Comment: [...] affects renal tubular secretion. Performed By: #### Erin ACUNA UAX #### [facility] [address] [place] [address] Antenna Machine Operator: Shraath Dennis MD D-Dimer Teston 10-22-2023 D-Dimer Test 0.41 ug/mL FEU Normal 0.00-0.59 [facility] Comment on above: Result Comment: When combined [...] patients with distal DVT. Performed By: #### U ARMAND UAX #### [facility] [address] [place] [address] Antenna Machine Operator: Sharath Dennis MD Electrolyteson 10-22-2023 Anion gap [Moles/Vol] 10 mmol/L Normal 9-16 [facility] Comment on above: Performed By: #### U ARMAND UAX #### [facility] [address] [place] [address] Antenna Machine Operator: Sharath Dennis MD Chloride [Moles/Vol] 106 mmol/L Normal 98-107 [facility] Comment on above: Performed By: #### U ARMAND UAX #### [facility] [address] [place], [place] [phone] Antenna Machine Operator: Sharath Dennis MD CO2 [Moles/Vol] 26 mmol/L Normal 20-31 [facility] Comment on above: Performed By: #### U ARMAND, UAX #### [facility] [address] [place] [address] Antenna Machine Operator: Sharath Dennis MD Potassium [Moles/Vol] 4.2 mmol/L Normal 3.7-5.3 [facility] Comment on above: Performed By: #### Erin ACUNA UAX #### [facility] [address] [place], [place] [phone] Antenna Machine Operator: Sharath Dennis MD Sodium [Moles/Vol] 142 mmol/L Normal 136-145 [facility] Comment on above: Performed By: #### Erin ACUNA UAX #### [facility] [address] [place], [place] [phone] Antenna Machine Operator: Sharath Dennis MD Liver Profileon 10-22-2023 Albumin [Mass/Vol] 4.1 g/dL Normal 3.5-5.2 [facility] Comment on above: Performed By: #### U ARMAND UAX #### [facility] [address] [place], [place] [phone] Antenna Machine Operator: Sharath Dennis MD Albumin/Glob Ratio 1.6 Normal 1.0-2.5 [facility] Comment on above: Performed By: #### U ARMAND, UAX #### [facility] [address] [place], [place] [phone] Antenna Machine Operator: Sharath Dennis MD Alkaline Phos 96 U/L Normal 35-104 [facility] Comment on above: Performed By: #### U MICAO, UAX #### [address] [place] [address] Antenna Machine Operator: Sharath Dennis MD ALT [Catalytic activity/Vol] 20 U/L Normal -35 [facility] Comment on above: Performed By: #### U MICAO, UAX #### [facility] [address] [place] [address] Dr[address] [place], [place] [phone] Antenna Machine Operator: Sharath Dennis MD AST [Catalytic activity/Vol] 25 U/L Normal -35 [facility] Comment on above: Performed By: #### U MICAO, UAX #### [address] [place], [place] [phone] Antenna Machine Operator: Sharath Dennis MD Bilirubin [Mass/Vol] 0.5 mg/dL Normal 0.00-1.20 [facility] Comment on above: Performed By: #### U MICAO, UAX #### [address] [place], [place] [phone] Antenna Machine Operator: Sharath Dennis MD Bilirubin, Indirect 0.2 mg/dL Normal 0.0-1.0 [facility] Comment on above: Performed By: #### U MICAO, UAX #### [address] [place] [address] Antenna Machine Operator: Sharath Dennis MD Bilirubin.indirect [Mass/Vol] 0.3 mg/dL Normal 0.00-0.30 [facility] Comment on above: Performed By: #### U MICAO, UAX #### [facility] [address] [place] [address] [place] [address] Antenna Machine Operator: Sharath Dennis MD Protein [Mass/Vol] 6.7 g/dL Normal 6.6-8.7 [facility] Comment on above: Performed By: #### U MICAO, UAX #### [facility] [address] [place] [address] [place] [address] Antenna Machine Operator: Sharath Dennis MD Thyroid Stim. Horm.on 2023 Thyroid Stim. Horm. 3.00 uIU/mL Normal 0.27-4.20 [facility] Comment on above: Performed By: #### U MICAO, UAX #### [facility] [address] [place] [address] Antenna Machine Operator: Sharath Dennis MD CBC with Auto Differentialon 10-21-2021 Absolute Eos # 0.20 [facility] Absolute Immature Granulocyte [facility] Absolute Lymph # 1.03 Low [facility] Absolute Foster # 0.60 [facility] Basophils Absolute [facility] Basophils/100 WBC (Bld) 0 % 0 - 2 % [facility] Eosinophils/100 WBC (Bld) 5 % High 1 - 4 % [facility] Hematocrit (Bld) [Volume fraction] 38.4 % 36.3 - 47.1 % [facility] Hemoglobin (Bld) [Mass/Vol] 11.8 g/dL Low 11.9 - 15.1 g/dL [facility] Immature granulocytes/100 WBC (Bld) 0 % 0 [facility] Interpretation and review of laboratory results Abnormal [facility] Lymphocytes/100 WBC (Bld) 23 % Low 24 - 43 % [facility] MCH (RBC) [Entitic mass] 29.3 pg 25.2 - 33.5 pg [facility] MCHC (RBC) [Mass/Vol] 30.7 g/dL 28.4 - 34.8 g/dL [facility] MCV (RBC) [Entitic vol] 95.3 fL 82.6 - 102.9 fL [facility] Monocytes/100 WBC (Bld) 14 % High 3 - 12 % [facility] NRBC Automated 0.0 0.0 per 100 WBC [facility] Platelet distribution width (Bld) [Ratio] 14.1 % 11.8 - 14.4 % [facility] Platelet mean volume (Bld) [Entitic vol] 9.8 fL 8.1 - 13.5 fL [facility] Platelets (Bld) [#/Vol] 185 10*3/uL [facility] RBC (Bld) [#/Vol] 4.03 10*6/uL 3.95 - 5.1 1 m/uL [facility] Segmented neutrophils/100 WBC (Bld) 58 % 36 - 65 % [facility] Segs Absolute 2.59 [facility] WBC (Bld) [#/Vol] 4.5 10*3/uL [facility] CMPon 10-21-2021 Albumin [Mass/Vol] 4.2 g/dL 3.5 - 5.2 g/dL [facility] Albumin/Globulin [Mass ratio] 1.7 {ratio} 1 - 2.5 [facility] ALP (Bld) [Catalytic activity/Vol] 100 U/L 35 - 104 U/L [facility] ALT [Catalytic activity/Vol] 21 U/L 5 - 33 U/L [facility] Anion gap [Moles/Vol] 9 mmol/L 9 - 17 mmol/L [facility] AST [Catalytic activity/Vol] 21 U/L NINF - 32 U/L [facility] Bilirubin [Mass/Vol] 0.5 mg/dL 0.3 - 1 .2 mg/dL [facility] Calcium [Mass/Vol] 9.6 mg/dL 8.6 - 10. 4 mg/dL [facility] Chloride [Moles/Vol] 102 mmol/L 98 - 10 7 mmol/L [facility] CO2 [Moles/Vol] 27 mmol/L 20 - 31 mmol/L [facility] Creatinine [Mass/Vol] 0.73 mg/dL 0.5 - 0.9 mg/dL [facility] Free PSA/Total PSA [Mass fraction] 6.7 g/dL 6.4 - 8.3 g/dL [facility] GFR >60 60 - PI NF mL/min [facility] GFR Non- >60 60 - PINF mL/min [facility] Glucose [Mass/Vol] 94 mg/dL 70 - 99 mg/dL [facility] Interpretation and review of laboratory results Abnormal [facility] Potassium [Moles/Vol] 4.3 mmol/L 3.7 - 5.3 mmol/L [facility] Sodium [Moles/Vol] 138 mmol/L 135 - 144 mmol/L [facility] Urea nitrogen (BldV) [Mass/Vol] 20 mg/dL 8 - 23 mg/dL [facility] Urea nitrogen/Creatinine (Bld) [Mass ratio] 27 High 9 - 20 [facility] Laboratory - Chemistry and C hemistry - challengeon 10-21-2021 GFR/1.73 sq M.predicted MDRD (S/P/Bld) [Vol rate/Area] [facility] Comment on above: Average GFR for 70 o r more years old: 75 mL/min/1.73sq m Chronic Kidney Disease: <60 mL/min/1.73sq m Kidney failure: <15 mL/min/1.73sq m eGFR calculated using average adult body mass. Additional eGFR calculator available at: http://www.[employer]/multiple_crcl_2012.htm Stage 1: Some kidney damage normal GFR Stage 2: Mild kidney damage GFR 60-89 Stage 3: Moderate kidney damage GFR 30-59 Stage 4: Severe kidney damage GFR 15-29 Stage 5: Severe kidney damage GFR <15 ESRD - chronic treatment by dialysis or transplant Troponinon 10-21-2021 Troponin, High Sensitivity 13 ng/L 0 - 14 ng/L [facility] Comment on above: High Sensitivity Troponin values cannot be compared with other Troponin methodologies. Patients with high levels of Biotin oral intake (i.e >5mg/day) may have falsely decreased Troponin levels. Samples collected within 8 hours of biotin intake may require additional information for diagnosis. [facility] Interpretation and review of laboratory results Abnormal [facility] Troponin, High Sensitivity 16 ng/L High 0 - 14 ng/L [facility] Comment on above: High Sensitivity Troponin values cannot be compared with other Troponin methodologies. Patients with high levels of Biotin oral intake (i.e >5mg/day) may have falsely decreased Troponin levels. Samples collected within 8 hours of biotin intake may require additional information for diagnosis. [employer] XR FOOT LEFT (MIN 3 VIEWS)on 10-16-2021 No acute findings. [facility] EXAMINATION: THREE XRAY VIEWS OF THE LEFT FOOT 10/15/2021 4:02 pm COMPARISON: None. HISTORY: ORDERING SYSTEM PROVIDED HISTORY: Pain FINDINGS: Foot alignment is anatomic. Generalized osteopenia. No acute fracture. Mild degenerative change midfoot. Threaded screw anterior aspect of the calcaneus. Soft tissues unremarkable. [facility] Hermes Cortez DO - 10/16/2021 EXAMINATION: THREE XRAY VIEWS OF THE LEFT FOOT 10/15/2021 4:02 pm COMPARISON: None. HISTORY: ORDERING SYSTEM PROVIDED HISTORY: Pain FINDINGS: Foot alignment is anatomic. Generalized osteopenia. No acute fracture. Mild degenerative change midfoot. Threaded screw anterior aspect of the calcaneus. Soft tissues unremarkable. IMPRESSION: No acute findings. [employer] Work Phone: XR FOOT LEFT (MIN 3 VIEWS)Or dered By: Hermes Cortez on 10-16-2021 [employer] Work Phone: XR FOOT RIGHT (MIN 3 VIEWS)o n 10-16-2021 No acute findings. [facility] EXAMINATION: THREE XRAY VIEWS OF THE RIGHT FOOT 10/15/2021 4:03 pm COMPARISON: None. HISTORY: ORDERING SYSTEM PROVIDED HISTORY: Pain FINDINGS: No acute findings. Mild hallux valgus deformity. Moderate degenerative change midfoot and 1st metatarsophalangeal joint. Generalized osteopenia. Soft tissues unremarkable. [facility] Hermes Cortez DO - 10/16/2021 EXAMINATION: THREE XRAY VIEWS OF THE RIGHT FOOT 10/15/2021 4:03 pm COMPARISON: None. HISTORY: ORDERING SYSTEM PROVIDED HISTORY: Pain FINDINGS: No acute findings. Mild hallux valgus deformity. Moderate degenerative change midfoot and 1st metatarsophalangeal joint. Generalized osteopenia. Soft tissues unremarkable. IMPRESSION: No acute findings. [employer] Phone: XR FOOT RIGHT (MIN 3 VIEWS)O rdered By: Hermes Cortez on 10-16-2021 [facility] Work Phone: Basic Metabolic Panelon Anion gap [Moles/Vol] 10 mmol/L 9 - 17 mmol/L [facility] Calcium [Mass/Vol] 9.7 mg/dL 8.6 - 10. 4 mg/dL [facility] [employer] Chloride [Moles/Vol] 105 mmol/L 98 - 10 7 mmol/L [facility] [employer] CO2 [Moles/Vol] 27 mmol/L 20 - 31 mmol/L [facility] [employer] Creatinine [Mass/Vol] 0.84 mg/dL 0.5 - 0.9 mg/dL [facility] [employer] GFR >60 60 - PI NF mL/min [facility] [employer] GFR Non- >60 60 - PINF mL/min [facility] [employer] Glucose [Mass/Vol] 98 mg/dL 70 - 99 mg/dL [facility] Interpretation and review of laboratory results Abnormal [facility] [employer] Potassium [Moles/Vol] 4.5 mmol/L 3.7 - 5.3 mmol/L [facility] [employer] Sodium [Moles/Vol] 142 mmol/L 135 - 144 mmol/L [facility] [employer] Urea nitrogen (BldV) [Mass/Vol] 29 mg/dL High 8 - 23 mg/dL [facility] [employer] Urea nitrogen/Creatinine (Bld) [Mass ratio] 35 High 9 - 20 [facility] [employer] Laboratory - Chemistry and C hemistry - challengeon 10-15-2021 GFR/1.73 sq M.predicted MDRD (S/P/Bld) [Vol rate/Area] [facility] Comment on above: Average GFR for 70 o r more years old: 75 mL/min/1.73sq m Chronic Kidney Disease: <60 mL/min/1.73sq m Kidney failure: <15 mL/min/1.73sq m eGFR calculated using average adult body mass. Additional eGFR calculator available at: http://www.[employer]/multiple_crcl_2011.htm Stage 1: Some kidney damage normal GFR Stage 2: Mild kidney damage GFR 60-89 Stage 3: Moderate kidney damage GFR 30-59 Stage 4: Severe kidney damage GFR 15-29 Stage 5: Severe kidney damage GFR <15 ESRD - chronic treatment by dialysis or transplant No Panel Informationon 10-15 [facility] Sedimentation Rateon 022 Sed Rate 9 [facility] Uric Acidon 10-15-2021 Urate [Mass/Vol] 4.5 mg/dL 2.4 - 5.7 mg/dL [facility] XR FOOT LEFT (MIN 3 VIEWS)on 10-15-2021 Radiology Study observation (narrative) [facility] Work Phone: XR FOOT RIGHT (MIN 3 VIEWS)o n 10-15-2021 Radiology Study observation (narrative) [facility] Work Phone: CBC with Auto Differentialon 10-05-2021 Absolute Eos # 0.23 [facility] Absolute Immature Granulocyte 0.07 [facility] Absolute Lymph # 1.92 [facility] Absolute Foster # 1.14 [facility] Basophils Absolute [facility] Basophils/100 WBC (Bld) 0 % 0 - 2 % [facility] Eosinophils/100 WBC (Bld) 3 % 1 - 4 % [facility] Hematocrit (Bld) [Volume fraction] 38.6 % 36.3 - 47.1 % [facility] Hemoglobin (Bld) [Mass/Vol] 12.0 g/dL 11.9 - 15.1 g/dL [facility] Immature granulocytes/100 WBC (Bld) 1 % High 0 [facility] Interpretation and review of laboratory results Abnormal [facility] Lymphocytes/100 WBC (Bld) 24 % 24 - 43 % [facility] MCH (RBC) [Entitic mass] 29.6 pg 25.2 - 33.5 pg [facility] MCHC (RBC) [Mass/Vol] 31.1 g/dL 28.4 - 34.8 g/dL [facility] MCV (RBC) [Entitic vol] 95.1 fL 82.6 - 102.9 fL [facility] Monocytes/100 WBC (Bld) 15 % High 3 - 12 % [facility] NRBC Automated 0.0 0.0 per 100 WBC [facility] Platelet distribution width (Bld) [Ratio] 13.2 % 11.8 - 14.4 % [facility] Platelet mean volume (Bld) [Entitic vol] 9.1 fL 8.1 - 13.5 fL [facility] Platelets (Bld) [#/Vol] 278 10*3/uL [facility] RBC (Bld) [#/Vol] 4.06 10*6/uL 3.95 - 5.1 1 m/uL [facility] Segmented neutrophils/100 WBC (Bld) 57 % 36 - 65 % [facility] Segs Absolute 4.51 [facility] WBC (Bld) [#/Vol] 7.9 10*3/uL [facility] CMPon 10-05-2021 Albumin [Mass/Vol] 3.7 g/dL 3.5 - 5.2 g/dL [facility] Albumin/Globulin [Mass ratio] 1.5 {ratio} 1 - 2.5 [facility] ALP (Bld) [Catalytic activity/Vol] 93 U/L 35 - 104 U/L [facility] ALT [Catalytic activity/Vol] 20 U/L 5 - 33 U/L [facility] Anion gap [Moles/Vol] 10 mmol/L 9 - 17 mmol/L [facility] AST [Catalytic activity/Vol] 17 U/L NINF - 32 U/L [facility] Bilirubin [Mass/Vol] 0.31 mg/dL 0.3 - 1 .2 mg/dL [facility] Calcium [Mass/Vol] 9.1 mg/dL 8.6 - 10. 4 mg/dL [facility] Chloride [Moles/Vol] 104 mmol/L 98 - 10 7 mmol/L [facility] CO2 [Moles/Vol] 25 mmol/L 20 - 31 mmol/L [facility] Creatinine [Mass/Vol] 0.7 mg/dL 0.5 - 0.9 mg/dL [facility] Free PSA/Total PSA [Mass fraction] 6.1 g/dL Low 6.4 - 8.3 g/dL [facility] GFR >60 60 - PI NF mL/min [facility] GFR Non- >60 60 - PINF mL/min [facility] Glucose [Mass/Vol] 95 mg/dL 70 - 99 mg/dL [facility] Interpretation and review of laboratory results Abnormal [facility] Potassium [Moles/Vol] 4.2 mmol/L 3.7 - 5.3 mmol/L [facility] Sodium [Moles/Vol] 139 mmol/L 135 - 144 mmol/L [facility] Urea nitrogen (BldV) [Mass/Vol] 35 mg/dL High 8 - 23 mg/dL [facility] Urea nitrogen/Creatinine (Bld) [Mass ratio] 50 High 9 - 20 [facility] COVID-19, Rapidon 10-05-2021 SARS-CoV-2 (COVID-19) RNA LADAN+probe Ql (Unsp spec) Not detected Not Detected [facility] Comment on above: Rapid NAAT: The [...] management decisions. Fact sheet for Healthcare Providers: https://www.fda.gov/media/778584/download Fact sheet for Patients: https://www.fda.gov/media/000630/download Methodology: Isothermal Nucleic Acid Amplification Specimen Description .NASOPHARYNGEAL SWAB [facility] CT Head WO Contraston 2021 No acute intracrania l abnormality. Findings were discussed with ELIECER BURRIS at 2:38 pm on 10/05/2021. [facility] EXAMINATION: CT OF THE HEAD WITHOUT [...] of the visualized skull or soft tissues. [facility] Kel Hennessy MD - 10/05/2021 EXAMINATION: [...] ELIECER BURRIS at 2:38 pm on 10/05/2021. [employer] Work Phone: Radiology Study observation (narrative) [employer] Phone: CT Head WO ContrastOrdered B y: Kel Hennessy on 10-05-2021 [employer] Work Phone: CTA HEAD NECK W CONTRASTon 0 10-05-2021 No acute abnormality or flow limiting stenosis of the major arteries of the head and neck. 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 [facility] EXAMINATION: CTA OF THE HEAD [...] fluid collection. The kevin-white differentiation is maintained. [facility] Angelito Alfonso MD - 10/05/2021 [...] by teleneuro TECHNOLOGIST PROVIDED HISTORY: Requested by teleneSales [place] Decision Support Exception - unselect if not [...] proximal to mid basilar artery, normal variant. [employer] Work Phone: Radiology Study observation (narrative) [employer] Work Phone: CTA HEAD NECK W CONTRASTOrde red By: Angelito Alfonso on 10-05-2021 [facility] Work Phone: Glucose, Whole Bloodon 10-05 Glucose [Mass/Vol] 109 mg/dL High 74 - 100 mg/dL [facility] Interpretation and review of laboratory results Abnormal [facility] Laboratory - Chemistry and C hemistry - challengeon 10-05-2021 GFR/1.73 sq M.predicted MDRD (S/P/Bld) [Vol rate/Area] [facility] Comment on above: Average GFR for 70 o r more years old: 75 mL/min/1.73sq m Chronic Kidney Disease: <60 mL/min/1.73sq m Kidney failure: <15 mL/min/1.73sq m eGFR calculated using average adult body mass. Additional eGFR calculator available at: http://www.[employer]/multiple_crcl_2012.htm Stage 1: Some kidney damage normal GFR Stage 2: Mild kidney damage GFR 60-89 Stage 3: Moderate kidney damage GFR 30-59 Stage 4: Severe kidney damage GFR 15-29 Stage 5: Severe kidney damage GFR <15 ESRD - chronic treatment by dialysis or transplant Magnesiumon 10-05-2021 Magnesium [Mass/Vol] 1.9 mg/dL 1.6 - 2 .6 mg/dL [facility] No Panel Informationon 10-05 [facility] POCT glucoseon 10-05-2021 Glucose [Mass/Vol] 109 mg/dL [facility] Work Phone: Interpretation and review of laboratory results Normal [facility] Work Phone: QC OK? y [facility] Work Phone: [facility] Work Phone: Troponinon 10-05-2021 Troponin, High Sensitivity 13 ng/L 0 - 14 ng/L [facility] Comment on above: High Sensitivity Troponin values cannot be compared with other Troponin methodologies. Patients with high levels of Biotin oral intake (i.e >5mg/day) may have falsely decreased Troponin levels. Samples collected within 8 hours of biotin intake may require additional information for diagnosis. [facility] Urinalysis with Microscopico n 10-05-2021 Bacteria, UA TRACE Abnormal None [facility] Bilirubin Urine Negative NEGATIVE [facility] Color, UA Yellow Yellow [facility] Epithelial Cells UA 0 TO 2 [facility] Glucose, Ur Negative NEGATIVE [facility] Interpretation and review of laboratory results Abnormal [facility] Ketones Ql (U) Negative NEGATIVE [facility] Leukocyte esterase Test strip Ql (U) SMALL Abnormal NEGATIVE [facility] Nitrite, Urine Negative NEGATIVE [facility] pH, UA 7.0 5 - 9 [facility] Protein, UA Negative NEGATIVE [facility] RBC, UA None [facility] Specific [place], UA Low 1.01 - 1.02 [facility] Turbidity UA Clear Clear [facility] Urine Hgb Negative NEGATIVE [facility] Urobilinogen, Urine Normal Normal [facility] WBC, UA 2 TO 5 [facility] XR CHEST PORTABLEon 10-06-19 22 No acute process. [facility] RIS CONSOLIDATED EXAMINATION: ONE XRAY VIEW OF THE CHEST 10/05/2021 11:34 am COMPARISON: 06/28/2009 HISTORY: ORDERING SYSTEM PROVIDED HISTORY: Dyspnea TECHNOLOGIST PROVIDED HISTORY: Dyspnea FINDINGS: The lungs are without acute focal process. Stable small calcified granuloma in the left apex. There is no effusion or pneumothorax. The cardiomediastinal silhouette is stable. The osseous structures are stable. [facility] RIS CONSOLIDATED Mikael Valdes MD - 10/05/2021 [...] structures are stable. IMPRESSION: No acute process. [employer] Work Phone: Radiology Study observation (narrative) [employer] Work Phone: XR CHEST PORTABLEOrdered By: Mikael Valdes on 10-05-2021 [employer] Work Phone: BUNon 07-22-2021 Urea nitrogen (BldV) [Mass/Vol] 33 mg/dL High 8 - 23 mg/dL [facility] Brain Natriuretic Peptideon 07-22-2021 Natriuretic peptide B (Bld) [Mass/Vol] 186 pg/mL <300 [facility]Express [facility] [employer] Comment on above: An age-independent cutoff point of 300 pg/ml has a 98% negative predictive value excluding acute heart failure. CBCon 07-22-2021 Hematocrit (Bld) [Volume fraction] 37.0 % 36.3 - 47.1 % [facility] Hemoglobin (Bld) [Mass/Vol] 11.7 g/dL Low 11.9 - 15.1 g/dL [facility] Interpretation and review of laboratory results Abnormal [facility]ERTouchMail [facility] [employer] MCH (RBC) [Entitic mass] 29.5 pg 25.2 - 33.5 pg [facility] [employer] MCHC (RBC) [Mass/Vol] 31.6 g/dL 28.4 - 34.8 g/dL [facility] [employer] MCV (RBC) [Entitic vol] 93.2 fL 82.6 - 102.9 fL [facility] [employer] NRBC Automated 0.0 0.0 per 100 WBC [facility] Platelet distribution width (Bld) [Ratio] 13.8 % 11.8 - 14.4 % [facility] Platelet mean volume (Bld) [Entitic vol] 10.2 fL 8.1 - 13.5 fL [facility] Platelets (Bld) [#/Vol] 191 10*3/uL [facility] RBC (Bld) [#/Vol] 3.97 10*6/uL 3.95 - 5.1 1 m/uL [facility] WBC (Bld) [#/Vol] 5.3 10*3/uL [facility] Creatinineon 07-22-2021 Creatinine [Mass/Vol] 0.69 mg/dL 0.50 - 0.90 mg/dL [facility] GFR >60 >60 mL/min [facility] GFR Non- >60 >60 mL/min [facility] Electrolyte Panelon 07-23-19 22 Anion gap [Moles/Vol] 8 mmol/L Low 9 - 17 mmol/L [facility] Chloride [Moles/Vol] 107 mmol/L 98 - 10 7 mmol/L [facility] CO2 [Moles/Vol] 27 mmol/L 20 - 31 mmol/L [facility] Potassium [Moles/Vol] 4.2 mmol/L 3.7 - 5.3 mmol/L [facility] Sodium [Moles/Vol] 142 mmol/L 135 - 144 mmol/L [facility] Laboratory - Chemistry and C hemistry - challengeon 07-22-2021 GFR/1.73 sq M.predicted MDRD (S/P/Bld) [Vol rate/Area] [facility] Comment on above: Average GFR for 70 o r more years old: 75 mL/min/1.73sq m Chronic Kidney Disease: <60 mL/min/1.73sq m Kidney failure: <15 mL/min/1.73sq m eGFR calculated using average adult body mass. Additional eGFR calculator available at: http://www.Orgdot.[employer]/multiple_crcl_2011.htm Stage 1: Some kidney damage normal GFR Stage 2: Mild kidney damage GFR 60-89 Stage 3: Moderate kidney damage GFR 30-59 Stage 4: Severe kidney damage GFR 15-29 Stage 5: Severe kidney damage GFR <15 ESRD - chronic treatment by dialysis or transplant No Panel Informationon 07-22 Interpretation and review of laboratory results Abnormal [facility] VL DUP LOWER EXTREMITY VENOU S LEFTon 03-04-2021 Result, Unknown Provider - 03/04/2021 [facility] Vascular Lower Extremities DVT Study Procedure Patient Name SPENCER Date of Study 03/03/2021 EVER Mckay Date of 1940 Gender Female Age 80 year(s) Race Room Number Corporate ID [id number] # Patient Acct [id number] # MR # [id number] Geophysical Party Chief Katie Jackson, Alcides Interpreting Physician Alissa Marx Referring Referring Physician Alissa Marx Nurse Practitioner Additional Comments REsults were reported to Dr. Marx's office 03/03/2021 @ 0612. Procedure Type of Study: Veins: Lower Extremities [...] ! ! + -----+---------+------ + --------- + [employer] Phone: VL DUP LOWER EXTREMITY VENOU S LEFTOrdered By: Unknown Result on 03-04-2021 [place] VL DUP LOWER EXTREMITY VENOU S LEFTon 03-03-2021 Radiology Study observation (narrative) [employer] Phone: IR ANGIOGRAM CAROTID CEREBRA L BILATERALon [...] rotational angiography 5. Right common femoral artery ([employer]) angiogram Neurointerventionalist : Josesito Lomax MD, MS Vaughan: Pantera Mcdonald MD PhD Ralf Christie MD [...] for TIA, hypertension, diabetes presented today to [facility] for diagnostic cerebral angiogram to assess dysplastic [...] with a micropuncture technique, and a 5 [place] intravascular sheath was placed within the right common femoral artery, establishing arterial access using Seldinger technique. 2000u of heparin IV was administered. A 5 [place] multipurpose catheter was then advanced over a [...] was interpreted (more content not included)... Normal [facility] HEMOGLOBIN AND HEMATOCRIT, B LOODOrdered By: Knig Monteiro on 09-04-2020 Hematocrit (Bld) [Volume fraction] 30.5 % Low 36.3 - 47.1 % [employer] Phone: Hemoglobin.gastrointes tinal spec 1 Ql (Stl) 9.7 g/dL Low 11.9 - 15.1 g/dL [employer] Phone: Interpretation and review of laboratory results Abnormal [employer] Phone: [employer] Phone: Hgb/Hcton 09-04-2020 Hematocrit (Bld) [Volume fraction] 30.5 % Low 36.3-47.1 [facility] Comment on above: Performed By: #### H H ####[facility] [id number] [place] [address] Lab Director: Wellington Back MD Hemoglobin (Bld) [Mass/Vol] 9.7 g/dL Low 11.9-15.1 [facility] Comment on above: Performed By: #### H H ####[facility] [address] [place] [address] Lab Director: Wellington Back MD Hematocrit (Bld) [Volume fraction] 30.2 % Low 36.3-47.1 [facility] Comment on above: Performed By: #### H H ####[facility] HospitalD.light DesignKgknwknvllwg[address] [place] [address] Lab Director: Wellington Back MD Hemoglobin (Bld) [Mass/Vol] 9.4 g/dL Low 11.9-15.1 [facility] Comment on above: Performed By: #### H H ####[facility] [address] [place] [address] Lab Director: Wellington Back MD Basic Metab w/rfx MGon 09-03 (cont.) Normal [facility] Comment on above: Result Comment: Aver age GFR for 70 or more years old: 75 mL/min/1.73sq m Chronic Kidney Disease: <60 mL/min/1.73sq m Kidney failure: <15 mL/min/1.73sq m eGFR calculated using average adult body mass. Additional eGFR calculator available at: http://www.[employer]/multiple_crcl_2011.htm Performed By: #### Micaela BUCK BMPX #### [facility] [address] [place] [address] Antenna Machine Operator: Wellington Back MD Anion gap [Moles/Vol] 12 mmol/L Normal 9-17 [facility] Comment on above: Performed By: #### Micaela BUCK BMPX #### [facility] [address] [place] [address] Antenna Machine Operator: Wellington Back MD Calcium [Mass/Vol] 8.2 mg/dL Low 8.6-10.4 [facility] Comment on above: Performed By: #### Micaela BUCK BMPX #### [facility] [address] [place] [address] Antenna Machine Operator: Wellington Back MD Chloride [Moles/Vol] 106 mmol/L Normal 98-107 [facility] Comment on above: Performed By: #### Micaela BUCK BMPX #### [facility] [address] [place] [address] Antenna Machine Operator: Wellington Back MD CO2 [Moles/Vol] 21 mmol/L Normal 20-31 [facility] Comment on above: Performed By: #### R HEBER BMPX #### [employer] [address] [place] [address] Antenna Machine Operator: Wellington Back MD Creatinine [Mass/Vol] 0.50 mg/dL Normal 0.50-0.90 [facility] Comment on above: Performed By: #### R EJEC, BMPX #### [facility] [employer] [address] [place] [address] Antenna Machine Operator: Wellington Back MD GFR, Amer >60 Normal >60 [facility] Comment on above: Performed By: #### R EJEC, BMPX #### [facility] [employer] [address] [place] [address] Antenna Machine Operator: Wellington Back MD GFR,non Amer >60 Normal >60 [facility] Comment on above: Performed By: #### R EJEC, BMPX #### [facility] [employer] [address] [place] [address] Antenna Machine Operator: Wellington Back MD Glucose [Mass/Vol] 94 mg/dL Normal 70-99 [facility] Comment on above: Performed By: #### R EJEC, BMPX #### [facility] [employer] [address] [place] [address] Antenna Machine Operator: Wellington Back MD Potassium [Moles/Vol] 4.7 mmol/L Normal 3.7-5.3 [facility] Comment on above: Result Comment: SPEC IMEN SLIGHTLY HEMOLYZED, RESULTS MAY BE ADVERSELY AFFECTED. Performed By: #### R EJEC, BMPX #### [facility] [employer] [address] [place] [address] Antenna Machine Operator: Wellington Back MD Sodium [Moles/Vol] 139 mmol/L Normal 135-144 [facility] Comment on above: Performed By: #### R EJEC, BMPX #### [facility] [employer] [address] [place] [address] Antenna Machine Operator: Wellington Back MD Urea nitrogen [Mass/Vol] 12 mg/dL Normal 8-23 [facility] Comment on above: Performed By: #### R HEBER, BMPX #### [address] [address] Antenna Machine Operator: Wellington Back MD BUN/CRE Ratio NOT REPORTED Normal 9-20 [facility] Comment on above: Performed By: #### R HEBER, BMPX #### [address] [phone] Antenna Machine Operator: Wellington Back MD Staging: NOT REPORTED Normal [facility] Comment on above: Performed By: #### R HEBER, BMPX #### [address] [phone] Antenna Machine Operator: Wellington Back MD (cont.) Normal [facility] Comment on above: Result Comment: Aver age GFR for 70 or more years old: 75 mL/min/1.73sq m Chronic Kidney Disease: <60 mL/min/1.73sq m Kidney failure: <15 mL/min/1.73sq m eGFR calculated using average adult body mass. Additional eGFR calculator available at: http://www.Orgdot.[employer]/multiple_crcl_2012.htm Performed By: #### B MPX, PROL, TSHX, LIPR #### [address] [address] Antenna Machine Operator: Wellington Back MD Anion gap [Moles/Vol] 16 mmol/L Normal 9-17 [facility] Comment on above: Performed By: #### B MPX, PROL, TSHX, LIPR #### [address] [address] Antenna Machine Operator: Wellington Back MD Calcium [Mass/Vol] 8.7 mg/dL Normal 8.6-10.4 [facility] Comment on above: Performed By: #### B MPX, PROL, TSHX, LIPR #### [address] [address] Antenna Machine Operator: Wellington Back MD Chloride [Moles/Vol] 100 mmol/L Normal 98-107 [facility] Comment on above: Performed By: #### B MPX, PROL, TSHX, LIPR #### [address] [address] Antenna Machine Operator: Wellington Back MD CO2 [Moles/Vol] 20 mmol/L Normal 20-31 [facility] Comment on above: Performed By: #### B MPX, PROL, TSHX, LIPR #### [address] [address] Antenna Machine Operator: Wellington Back MD Creatinine [Mass/Vol] 0.70 mg/dL Normal 0.50-0.90 [facility] Comment on above: Performed By: #### B MPX, PROL, TSHX, LIPR #### [address] [address] Antenna Machine Operator: Wellington Back MD GFR, Amer >60 Normal >60 [facility] Comment on above: Performed By: #### B MPX, PROL, TSHX, LIPR #### [address] [address] Antenna Machine Operator: Wellington Back MD GFR,non Amer >60 Normal >60 [facility] Comment on above: Performed By: #### B MPX, PROL, TSHX, LIPR #### [address] [address] Antenna Machine Operator: Wellington Back MD Glucose [Mass/Vol] 109 mg/dL High 70-99 [facility] Comment on above: Performed By: #### B MPX, PROL, TSHX, LIPR #### [address] [place] [address] Antenna Machine Operator: Wellington Back MD Potassium [Moles/Vol] 4.5 mmol/L Normal 3.7-5.3 [facility] Comment on above: Performed By: #### B MPX, PROL, TSHX, LIPR #### [facility] [address] [place], [place] [phone] Antenna Machine Operator: Wellington Back MD Sodium [Moles/Vol] 136 mmol/L Normal 135-144 [facility] Comment on above: Performed By: #### B MPX, PROL, TSHX, LIPR #### [facility] [place], [place] [phone] Antenna Machine Operator: Wellington Back MD Urea nitrogen [Mass/Vol] 19 mg/dL Normal 8-23 [facility] Comment on above: Performed By: #### B MPX, PROL, TSHX, LIPR #### [facility] [address] [place] [address] Antenna Machine Operator: Wellington Back MD Basic Metabolic Panel w/ Ref rima to MGOrdered By: Ralf Christie on 09-03-2020 Anion gap [Moles/Vol] 12 mmol/L 9 - 17 mmol/L [employer] Phone: Calcium [Mass/Vol] 8.2 mg/dL Low 8.6 - 10. 4 mg/dL [employer] Phone: Chloride [Moles/Vol] 106 mmol/L 98 - 10 7 mmol/L [employer] Phone: CO2 [Moles/Vol] 21 mmol/L 20 - 31 mmol/L [employer] Phone: Creatinine [Mass/Vol] 0.5 mg/dL 0.50 - 0.90 mg/dL [employer] Phone: GFR >60 >60 mL/min [employer] Phone: GFR Non- >60 >60 mL/min [employer] Phone: GFR/1.73 sq M.predicted MDRD (S/P/Bld) [Vol rate/Area] [employer] Phone: Comment on above: Average GFR for 70 o r more years old: 75 mL/min/1.73sq m Chronic Kidney Disease: <60 mL/min/1.73sq m Kidney failure: <15 mL/min/1.73sq m eGFR calculated using average adult body mass. Additional eGFR calculator available at: http://www.[employer]/multiple_crcl_2012.htm GFR/1.73 sq M.predicted MDRD (S/P/Bld) [Vol rate/Area] NOT REPORTED [employer] Phone: Glucose [Mass/Vol] 94 mg/dL 70 - 99 mg/dL [employer] Phone: Interpretation and review of laboratory results Abnormal [employer] Phone: Potassium [Moles/Vol] 4.7 mmol/L 3.7 - 5.3 mmol/L [employer] Phone: Comment on above: SPECIMEN SLIGHTLY HE MOLYZED, RESULTS MAY BE ADVERSELY AFFECTED. Sodium [Moles/Vol] 139 mmol/L 135 - 144 mmol/L [employer] Phone: Urea nitrogen (BldV) [Mass/Vol] 12 mg/dL 8 - 23 mg/dL [employer] Phone: Urea nitrogen/Creatinine (Bld) [Mass ratio] NOT REPORTED [employer] Phone: [employer] Phone: Basic Metabolic Panel w/ Ref rima to MGOrdered By: Suraj Peters on 09-03-2020 Anion gap [Moles/Vol] 16 mmol/L 9 - 17 mmol/L [employer] Phone: Calcium [Mass/Vol] 8.7 mg/dL 8.6 - 10. 4 mg/dL [employer] Phone: Chloride [Moles/Vol] 100 mmol/L 98 - 10 7 mmol/L [employer] Phone: CO2 [Moles/Vol] 20 mmol/L 20 - 31 mmol/L [employer] Phone: Creatinine [Mass/Vol] 0.7 mg/dL 0.50 - 0.90 mg/dL [employer] Phone: GFR >60 >60 mL/min [employer] Phone: GFR Non- >60 >60 mL/min [employer] Phone: GFR/1.73 sq M.predicted MDRD (S/P/Bld) [Vol rate/Area] [employer] Phone: Comment on above: Average GFR for 70 o r more years old: 75 mL/min/1.73sq m Chronic Kidney Disease: <60 mL/min/1.73sq m Kidney failure: <15 mL/min/1.73sq m eGFR calculated using average adult body mass. Additional eGFR calculator available at: http://www.[employer]/multiple_crcl_2012.htm GFR/1.73 sq M.predicted MDRD (S/P/Bld) [Vol rate/Area] NOT REPORTED [employer] Phone: Glucose [Mass/Vol] 109 mg/dL High 70 - 99 mg/dL [employer] Phone: Interpretation and review of laboratory results Abnormal [employer] Phone: Potassium [Moles/Vol] 4.5 mmol/L 3.7 - 5.3 mmol/L [employer] Phone: Sodium [Moles/Vol] 136 mmol/L 135 - 144 mmol/L [employer] Phone: Urea nitrogen (BldV) [Mass/Vol] 19 mg/dL 8 - 23 mg/dL [employer] Work Phone: Urea nitrogen/Creatinine (Bld) [Mass ratio] NOT REPORTED [facility] Work Phone: CBC WITH AUTO DIFFERENTIALOr dered By: King Monteiro on 09-03-2020 Absolute Eos # 0.05 [facility] [employer] [facility] Work Phone: Absolute Immature Granulocyte 0.03 [facility] Work Phone: Absolute Lymph # 1.01 Low [employer] Work Phone: Absolute Foster # 1.26 High [employer] Work Phone: Basophils (Bld) [#/Vol] 10*3/uL [employer] Phone: Basophils/100 WBC (Bld) 0 % 0 - 2 % [employer] Phone: Differential Type NOT REPORTED [employer] Phone: Eosinophils/100 WBC (Bld) 1 % 1 - 4 % [employer] Phone: Hematocrit (Bld) [Volume fraction] 30.2 % Low 36.3 - 47.1 % [employer] Phone: Hemoglobin.gastrointes tinal spec 1 Ql (Stl) 9.8 g/dL Low 11.9 - 15.1 g/dL [employer] Phone: Immature granulocytes/100 WBC (Bld) 0 % 0 [employer] Phone: Interpretation and review of laboratory results Abnormal [employer] Phone: Lymphocytes/100 WBC (Bld) 14 % Low 24 - 43 % [employer] Phone: MCH (RBC) [Entitic mass] 29.7 pg 25.2 - 33.5 pg [employer] Phone: MCHC (RBC) [Mass/Vol] 32.5 g/dL 28.4 - 34.8 g/dL [employer] Phone: MCV (RBC) [Entitic vol] 91.5 fL 82.6 - 102.9 fL [employer] Phone: Monocytes/100 WBC (Bld) 17 % High 3 - 12 % [employer] Phone: NRBC Automated 0.0 0.0 per 100 WBC [employer] Phone: Platelet distribution width (Bld) [Ratio] 14.8 % High 11.8 - 14.4 % [employer] Phone: Platelet mean volume (Bld) [Entitic vol] NOT REPORTED 8.1 - 13.5 fL [employer] Phone: Platelets (Bld) [#/Vol] See Reflexed IPF Result [employer] Phone: RBC (Bld) [#/Vol] 3.30 10*6/uL Low 3.95 - 5.1 1 m/uL [employer] Phone: RBC (Bld) [#/Vol] ANISOCYTOSIS PRESENT [employer] Phone: Segmented neutrophils/100 WBC (Bld) 67 % High 36 - 65 % [employer] Phone: Segs Absolute 4.86 [employer] Work Phone: WBC (Bld) [#/Vol] 7.2 10*3/uL [employer] Phone: WBC (Bld) [#/Vol] NOT REPORTED [employer] Phone: [employer] Phone: CBC with Diffon 09-03-2020 Abs. Basophil <0.03 Normal 0.00-0.20 [facility] Comment on above: Performed By: #### C DP, IPF ####[address] [phone] Director: Wellington Back MD Abs.Imm.Granulocyte 0.03 k/uL Normal 0.00-0.30 [facility] Comment on above: Performed By: #### C DP, IPF ####[address] [id number])[phone] Director: Wellington Back MD Abs.Neutrophil (Seg) 4.86 k/uL Normal 1.50-8.10 [facility] Comment on above: Performed By: #### C DP, IPF ####[place], [place] [address])[phone] Director: Wellington Back MD Basophils/100 WBC (Bld) 0 % Normal 0-2 [facility] Comment on above: Performed By: #### C DP, IPF ####[place], [place] [address])[phone] Director: Wellington Back MD Eosinophils (Bld) [#/Vol] 0.05 10*3/uL Normal 0.00-0.44 [facility] Comment on above: Performed By: #### C DP, IPF ####[place], [place] [address])[phone] Director: Wellington Back MD Eosinophils/100 WBC (Bld) 1 % Normal 1-4 [facility] Comment on above: Performed By: #### C DP, IPF ####[address] [address])[phone] Director: Wellington Back MD Erythrocyte distribution width (RBC) [Ratio] 14.8 % High 11.8-14.4 [facility] Comment on above: Performed By: #### C DP, IPF ####[address] [address])[phone] Director: Wellington Back MD Hematocrit (Bld) [Volume fraction] 30.2 % Low 36.3-47.1 [facility] Comment on above: Performed By: #### C DP, IPF ####[address] [address])[phone] Director: Wellington Back MD Hemoglobin (Bld) [Mass/Vol] 9.8 g/dL Low 11.9-15.1 [facility] Comment on above: Performed By: #### C DP, IPF ####[address] [address])[phone] Director: Wellington Back MD Immature granulocytes/100 WBC (Bld) 0 % Normal 0 [facility] Comment on above: Performed By: #### C DP, IPF ####[address] [address])[phone] Director: Wellington Back MD Lymphocytes (Bld) [#/Vol] 1.01 10*3/uL Low 1.10-3.70 [facility] Comment on above: Performed By: #### C DP, IPF ####[address] [address])[phone] Director: Wellington Back MD Lymphocytes/100 WBC (Bld) 14 % Low 24-43 [facility] Comment on above: Performed By: #### C DP, IPF ####[address] [address])[phone] Director: Wellington Back MD MCH (RBC) [Entitic mass] 29.7 pg Normal 25.2-33.5 [facility] Comment on above: Performed By: #### C DP, IPF ####[facility] [address] [place], [place] [address])[phone] Director: Wellington Back MD MCHC (RBC) [Mass/Vol] 32.5 g/dL Normal 28.4-34.8 [facility] Comment on above: Performed By: #### C DP, IPF ####[facility] [address] [place] [address] Lab Director: Wellington Back MD MCV (RBC) [Entitic vol] 91.5 fL Normal 82.6-102.9 [facility] Comment on above: Performed By: #### C DP, IPF ####[facility] [address] [place] [address] Lab Director: Wellington Back MD Monocytes (Bld) [#/Vol] 1.26 10*3/uL High 0.10-1.20 [facility] Comment on above: Performed By: #### C DP, IPF ####[address] [address]([facility])[phone] Director: Wellington Back MD Monocytes/100 WBC (Bld) 17 % High 3-12 [facility] Comment on above: Performed By: #### C DP, IPF ####[facility] [address] [place] [address] Lab Director: Wellington Back MD Neutrophil (Seg) 67 % High 36-65 [facility] Comment on above: Performed By: #### C DP, IPF ####[facility] [address] [place] [address] Lab Director: Wellington Back MD NRBC Automated 0.0 per 100 WBC Normal 0.0 [facility] Comment on above: Performed By: #### C DP, IPF ####[facility] [address] [place] [address] Lab Director: Wellington Back MD Platelet Count See Reflexed IPF Result Normal 138-453 [facility] Comment on above: Performed By: #### C DP, IPF ####[facility] [address] [place] [address] Lab Director: Wellington Back MD RBC (Bld) [#/Vol] 3.30 10*6/uL Low 3.95-5.11 [facility] Comment on above: Performed By: #### C DP, IPF ####[facility] [address] [place] [address] Lab Director: Wellington Back MD RBC morphology finding Nom (Bld) ANISOCYTOSIS PRESENT Normal [facility] Comment on above: Performed By: #### C DP, IPF ####[facility] [address] [place] [address] Lab Director: Wellington Back MD WBC (Bld) [#/Vol] 7.2 10*3/uL Normal 3.5-11.3 [facility] Comment on above: Performed By: #### C DP, IPF ####[facility] [facility] [id number] [place] [id number] Lab Director: Wellington Back MD Auto Diff Performed NOT REPORTED Normal [facility] Comment on above: Performed By: #### C DP, IPF ####[facility] [address] [place] [address] Lab Director: Wellington Back MD MPV NOT REPORTED Normal 8.1-13.5 [facility] Comment on above: Performed By: #### C DP, IPF ####[facility] [address] [place] [address] Lab Director: Wellington Back MD WBC Morphology NOT REPORTED Normal [facility] Comment on above: Performed By: #### C DP, IPF ####[facility] [address] [place] [address] Lab Director: Wellington Back MD CBC with DiffOrdered By: Jason Monteiro on 09-03-2020 Platelet Estimate NOT REPORTED Normal [facility] [employer]us Phone: Comment on above: Performed By: #### C DP, IPF ####[facility] [place] [address] Lab Director: Wellington Back MD CT HEAD WO [...] Aguilar Alba MD 09/03/20 Final result Normal [facility] CT HEAD WO CONTRASTOrdered B y: Jayme Morton on 09-03-2020 No acute intracrania l hemorrhage identified. [facility] [employer] Work Phone: EXAMINATION: CT OF T HE HEAD [...] of the visualized skull or soft tissues. [employer] Phone: Jaquan, Mhpn Incoming Radiant Results From Sapient/Weeblys - 09/03/2020 1:06 PM EDT EXAMINATION: CT [...] tissues. IMPRESSION: No acute intracranial hemorrhage identified. [employer] Phone: [employer] Phone: HEMOGLOBIN AND HEMATOCRIT, B LOODOrdered By: King Monteiro on 09-03-2020 Hematocrit (Bld) [Volume fraction] 30.2 % Low 36.3 - 47.1 % [employer] Phone: Hemoglobin.gastrointes tinal spec 1 Ql (Stl) 9.4 g/dL Low 11.9 - 15.1 g/dL [employer] Phone: Interpretation and review of laboratory results Abnormal [employer] Phone: [employer] Phone: Hemoglobin A1Con 09-03-2020 Glucose [Mass/Vol] 131 mg/dL Normal [facility] Comment on above: Result Comment: The ADA and AACC recommend providing the estimated average glucose result to permit better patient understanding of their HBA1c result. Performed By: #### S STAR #### [facility] [address] [place] [address] Antenna Machine Operator: Malik Hart DO [facility] [address] [place] [address] Antenna Machine Operator: Wellington Back MD #### GLYHGB #### [address] [address] Antenna Machine Operator: Wellington Back MD HbA1c (Bld) [Mass fraction] 6.2 % High 4.0-6.0 [facility] Comment on above: Performed By: #### Marina GRAVES #### [facility] [address] [place] [address] Antenna Machine Operator: Malik Hart [address] [address] Antenna Machine Operator: Wellington Back MD #### GLYHGB #### [address] [address] Antenna Machine Operator: Wellington Back MD Hemoglobin [id number] By: Alena Metz on 09-03-2020 Glucose [Mass/Vol] 131 mg/dL [facility] Work Phone: Comment on above: The ADA and AACC rec ommend providing the estimated average glucose result to permit better patient understanding of their HBA1c result. HbA1c (Bld) [Mass fraction] 6.2 % High 4.0 - 6.0 % [facility] Work Phone: Interpretation and review of laboratory results Abnormal [employer] Work Phone: [facility] Work Phone: Immature Platelet FractionOr dered By: King Monteiro on 09-03-2020 Platelet, Fluorescence Platelet clumps present, count appears adequate. [employer] Phone: Comment on above: ORDERED BY LAB Platelet, Immature Fraction NOT REPORTED 1.1 - 10.3 % [employer] Phone: [employer] Phone: Lipid Profileon 09-03-2020 Cholesterol [Mass/Vol] 123 mg/dL Normal <200 [facility] Comment on above: Result Comment: Cholesterol Guidelines: <200 Desirable 200-240 Borderline >240 Undesirable Performed By: #### B MPX, PROL, TSHX, LIPR #### [facility] [address] [place] [address] [phone] Antenna Machine Operator: Wellington Back MD Cholesterol in HDL [Mass/Vol] 69 mg/dL Normal >40 [facility] Comment on above: Result Comment: HDL Guidelines: <40 Undesirable 40-59 Borderline >59 Desirable Performed By: #### B MPX, PROL, TSHX, LIPR #### [facility] [employer] [address] [place] [address] [phone] Antenna Machine Operator: Wellington Back MD Cholesterol in LDL [Mass/Vol] 40 mg/dL Normal 0-130 [facility] Comment on above: Result Comment: LDL Guidelines: <100 Desirable 100-129 Near to/above Desirable 130-159 Borderline >159 Undesirable Direct (measured) LDL and calculated LDL are not interchangeable tests. Performed By: #### B MPX, PROL, TSHX, LIPR #### [facility] [address] [place] [address] [phone] Antenna Machine Operator: Wellington Back MD Cholesterol.total/Chol esterol in HDL [Mass ratio] 1.8 {ratio} Normal <5 [facility] Comment on above: Performed By: #### B MPX, PROL, TSHX, LIPR #### [facility] [address] [place] [address] [phone] Antenna Machine Operator: Welilngton Back MD Triglyceride [Mass/Vol] 70 mg/dL Normal <150 [facility] Comment on above: Result Comment: Triglyceride Guidelines: <150 Desirable 150-199 Borderline 200-499 High >499 Very high Based on AHA Guidelines for fasting triglyceride, November 2011. Performed By: #### B MPX, PROL, TSHX, LIPR #### [facility] [address] [place], [place] [id number] Antenna Machine Operator: Wellington Back MD Lipid panel - fastingOrdered By: Suraj Peters on 09-03-2020 Cholesterol [Mass/Vol] 123 mg/dL <200 [employer] Phone: Comment on above: Cholesterol Guidelines: <200 Desirable 200-240 Borderline >240 Undesirable Cholesterol in HDL [Mass/Vol] 69 mg/dL >40 [employer] Phone: Comment on above: HDL Guidelines: <40 Undesirable 40-59 Borderline >59 Desirable Cholesterol in LDL [Mass/Vol] 40 mg/dL 0 - 130 mg/dL [employer] Phone: Comment on above: LDL Guidelines: <100 Desirable 100-129 Near to/above Desirable 130-159 Borderline >159 Undesirable Direct (measured) LDL and calculated LDL are not interchangeable tests. Cholesterol in VLDL [Mass/Vol] NOT REPORTED 1 - 30 mg/dL [employer] Phone: Cholesterol.total/Chol esterol in HDL [Mass ratio] 1.8 {ratio} <5 [employer] Phone: Triglyceride [Mass/Vol] 70 mg/dL <150 [employer] Phone: Comment on above: Triglyceride Guidelines: <150 Desirable 150-199 Borderline 200-499 High >499 Very high Based on AHA Guidelines for fasting triglyceride, November 2011. [employer] Phone: No Panel InformationOrdered By: Suraj Peters on 09-03-2020 [employer] Phone: PLT, Immature Fract.on 09-03 Platelet, Fluoresc. Platelet clumps present, count appears adequate. Normal 138-453 [facility] Comment on above: Result Comment: ORDE RED BY LAB Performed By: #### C DP, IPF ####[facility] [id number] [place] [address] lab Director: Wellington Back MD PLT, Immature Fract. NOT REPORTED Normal 1.1-10.3 [facility] Comment on above: Performed By: #### C DP, IPF ####[facility] [address] [place] [address] lab Director: Wellington Back MD PROLACTINOrdered By: Suraj ramirez on 09-03-2020 Prolactin 17.33 ug/L 4.79 - 23.30 ug/L [facility] Phone: Comment on above: The presence of macr oprolactin may cause interference in female patients with various endocrinological diseases or during . Prolactinon 09-03-2020 Prolactin 17.33 ug/L Normal 4.79-23.30 [facility] Comment on above: Result Comment: The presence of macroprolactin may cause interference in female patients with various endocrinological diseases or during . Performed By: #### B MPX, PROL, TSHX, LIPR #### [facility] [address] [place], [place] [phone] Antenna Machine Operator: Wellington Back MD SPECIMEN REJECTIONOrdered By : Ralf Christie on 09-03-2020 - NOT REPORTED [employer] Phone: Ordered Test CDP [employer] Phone: Reason for Rejection Unable to perform testing: Specimen clotted. [employer] Phone: Specimen source Nom (Unsp spec) .BLOOD [employer] Phone: [employer] Phone: Specimen Rejectionon 021 Reason for rejection Unable to perform testing: Specimen clotted. Normal [facility] Comment on above: Performed By: #### R EJEC, BMPX #### [address] [address] Antenna Machine Operator: Wellington Back MD Source of sample .BLOOD Normal [facility] Comment on above: Performed By: #### R EJEC, BMPX #### [address] [address] Antenna Machine Operator: Wellington Back MD Test ordered CDP [facility] Comment on above: Performed By: #### R EJEC, BMPX #### [address] [address] Antenna Machine Operator: Wellington Back MD ----- NOT REPORTED [facility] Comment on above: Performed By: #### R HEBER, BMPX #### [address] [address] Antenna Machine Operator: Wellington Back MD Stroke Panelon 09-03-2020 % CKMB 3.6 % High 0.0-3.0 [facility] Comment on above: Performed By: #### S STAR #### [facility] [address] [place] [address] Antenna Machine Operator: Malik Hart DO [address] [address] Antenna Machine Operator: Wellington Back MD #### GLYHGB #### [address] [address] Antenna Machine Operator: Wellington Back MD CK-MB,Quantitative 2.9 ng/mL Normal <5.4 [facility] Comment on above: Performed By: #### S STAR #### [facility] [address] [place] [address] Antenna Machine Operator: Malik Hart DO [facility] [address] [place] [address] Antenna Machine Operator: Wellington Back MD #### GLYHGB #### [facility] [address] [place] [address] Antenna Machine Operator: Wellington Back MD CKMB-Interpretation NORMAL ISOENZYME PATTERN Normal [facility] Comment on above: Performed By: #### S STAR #### [facility] [address] [place] [address] Antenna Machine Operator: Malik Hart DO [facility] [address] [place] [address] Antenna Machine Operator: Wellington Back MD #### GLYHGB #### [address] [address] Antenna Machine Operator: Wellington Back MD TSH w/reflex to FT4on 2020 TSH Qn 0.99 m[IU]/L Normal 0.30-5.00 [facility] Comment on above: Performed By: #### B MPX, PROL, TSHX, LIPR #### [address] [address] Antenna Machine Operator: Wellington Back MD TSH with ReflexOrdered By: Ej Peters on 09-03-2020 TSH Qn 0.99 m[IU]/L [employer] Phone: CHLORIDE (POC)Ordered By: Os imelda Lomax on 09-02-2020 Chloride [Moles/Vol] 103 mmol/L 98 - 10 7 mmol/L [employer] Phone: CTA HEAD NECK W CONTRASTon 0 [...] Aaron London MD 09/02/20 Final result Normal [facility] CTA HEAD NECK W CONTRASTOrde red [...] 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 [employer] Phone: EXAMINATION: CTA OF THE HEAD AND [...] fluid collection. The kevin-white differentiation is maintained. 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 [employer] Work Phone: [employer] Phone: Creatinine W/GFR Point of Ca reOrdered By: Kristina Lomax on 09-02-2020 Creatinine [Mass/Vol] 0.66 mg/dL 0.51 - 1.19 mg/dL [employer] Phone: GFR Non- >60 >60 mL/min [employer] Phone: GFR/1.73 sq M.predicted MDRD (S/P/Bld) [Vol rate/Area] mL/min/{1.73_m2} >60 mL/min [employer] Phone: GFR/1.73 sq M.predicted MDRD (S/P/Bld) [Vol rate/Area] [employer] Phone: Comment on above: Average GFR for 70 o r more years old: 75 mL/min/1.73sq m Chronic Kidney Disease: <60 mL/min/1.73sq m Kidney failure: <15 mL/min/1.73sq m eGFR calculated using average adult body mass. Additional eGFR calculator available at: http://www.[employer]/multiple_crcl_2012.htm EEG video monitoringOrdered By: Suraj Peters on [...] 10-20 electrode placement system, using a 32-channel truedash headbox. All EEG and video information was acquired digitally, including the use of automated spike and seizure detection software to detect epileptiform activity. An event button was also available to be depressed during clinical events. RESULTS: In (more content not included)... [employer] Phone: [employer] Phone: Hemoglobin and hematocrit, b loodOrdered By: Kristina Lomax on 09-02-2020 Hematocrit (Bld) [Volume fraction] 35 % Low 36 - 46 % [employer] Phone: Hemoglobin (Bld) [Mass/Vol] 11.8 g/dL Low 12.0 - 16.0 g/dL [employer] Phone: Interpretation and review of laboratory results Abnormal [employer] Phone: Lipid Profileon 09-02-2020 Cholesterol,VLDL NOT REPORTED Normal 03-09 [facility] Comment on above: Performed By: #### B MPX, PROL, TSHX, LIPR #### [facility] [address] [place] [address] Antenna Machine Operator: Wellington Back MD MRI LIMITED BRAINon 09-03-19 [...] Kel Hennessy MD 09/02/20 Final result Normal [facility] MRI LIMITED BRAINOrdered By: Ralf Christie on 09-02-2020 No acute intracrania l abnormality. Findings were discussed with Dr. Mcdonald At 11:45 am on 09/02/2020. [employer] Phone: EXAMINATION: MRI OF THE BRAIN WITHOUT [...] The soft tissues demonstrate no acute abnormality. [employer] Phone: Jaquan, [facility] Incoming Radiant Results From [employer] - 09/02/2020 12:44 PM EDT EXAMINATION: MRI [...] Dr. Mcdonald At 11:45 am on 09/02/2020. [employer] Phone: [employer] Phone: No Panel InformationOrdered By: Kristina Lomax on 09-02-2020 [employer] Phone: POC Glucose FingerstickOrder ed By: Kristina Lomax on 09-02-2020 Glucose [Mass/Vol] 73 mg/dL 65 - 105 mg/dL [employer] Phone: [employer] Work Phone: POCT GlucoseOrdered By: Bee Lomax on 09-02-2020 Glucose [Mass/Vol] 89 mg/dL 74 - 100 mg/dL [employer] Phone: POCT urea (BUN)Ordered By: Zurdo Lomax on 09-02-2020 Urea nitrogen [Mass/Vol] 22 mg/dL 8 - 26 mg/dL [employer] Phone: POTASSIUM (POC)Ordered By: Zurdo Lomax on 09-02-2020 Potassium [Moles/Vol] 3.8 mmol/L 3.5 - 4.5 mmol/L [employer] Phone: SODIUM (POC)Ordered By: Bee Lomax on 09-02-2020 Sodium [Moles/Vol] 138 mmol/L 138 - 146 mmol/L [employer] Phone: STROKE PANELOrdered By: Fabricio Metz on 09-02-2020 % CKMB 3.6 % High 0.0 - 3.0 % [employer] Work Phone: Absolute Eos # 0.00 [facility] Work Phone: Absolute Immature Granulocyte 0.00 [employer] Work Phone: Absolute Lymph # 0.83 Low [employer] Work Phone: Absolute Foster # 0.83 High [facility] Work Phone: Anion gap [Moles/Vol] 20 mmol/L High 9 - 17 mmol/L [employer] Work Phone: aPTT Coag (Bld) [Time] 21.8 s [facility] Center[facility] Phone: Comment on above: IV Heparin Therapy Range: 48.6-77.8 Basophils (Bld) [#/Vol] 0.00 10*3/uL [employer] Phone: Basophils/100 WBC (Bld) 0 % 0 - 2 % [employer] Phone: Calcium [Mass/Vol] 9.2 mg/dL 8.6 - 10. 4 mg/dL [employer] Phone: Chloride [Moles/Vol] 100 mmol/L 98 - 10 7 mmol/L [employer] Phone: CK [Catalytic activity/Vol] 81 U/L 26 - 192 U/L [employer] Phone: CK.MB [Mass/Vol] 2.9 ng/mL <5.4 [employer] Work Phone: CKMB Interpretation NORMAL ISOENZYME PATTERN [employer] Phone: CO2 [Moles/Vol] 16 mmol/L Low 20 - 31 mmol/L [employer] Phone: Creatinine [Mass/Vol] 0.63 mg/dL 0.50 - 0.90 mg/dL [employer] Phone: Differential Type NOT REPORTED [employer] Phone: Eosinophils/100 WBC (Bld) 0 % Low 1 - 4 % [employer] Phone: GFR >60 >60 mL/min [employer] Phone: GFR Non- >60 >60 mL/min [employer] Phone: GFR/1.73 sq M.predicted MDRD (S/P/Bld) [Vol rate/Area] [employer] Phone: Comment on above: Average GFR for 70 o r more years old: 75 mL/min/1.73sq m Chronic Kidney Disease: <60 mL/min/1.73sq m Kidney failure: <15 mL/min/1.73sq m eGFR calculated using average adult body mass. Additional eGFR calculator available at: http://www.[employer]/multiple_crcl_2012.htm GFR/1.73 sq M.predicted MDRD (S/P/Bld) [Vol rate/Area] NOT REPORTED [employer] Phone: Glucose [Mass/Vol] 110 mg/dL High 70 - 99 mg/dL [employer] Phone: Hematocrit (Bld) [Volume fraction] 35.8 % Low 36.3 - 47.1 % [employer] Phone: Hemoglobin.gastrointes tinal spec 1 Ql (Stl) 11.4 g/dL Low 11.9 - 15.1 g/dL [employer] Phone: Immature granulocytes/100 WBC (Bld) 0 % 0 [employer] Phone: INR Coag (Bld) [Relative time] 1.1 {INR} [employer] Phone: Comment on above: Therapeutic Range: Moderate Anticoagulant Intensity: INR = 2.0-3.0 High Anticoagulant Intensity: INR = 2.5-3.5 Interpretation and review of laboratory results Abnormal [employer] Phone: Lymphocytes/100 WBC (Bld) 7 % Low 24 - 44 % [employer] Phone: MCH (RBC) [Entitic mass] 29.8 pg 25.2 - 33.5 pg [employer] Phone: MCHC (RBC) [Mass/Vol] 31.8 g/dL 28.4 - 34.8 g/dL [employer] Phone: MCV (RBC) [Entitic vol] 93.7 fL 82.6 - 102.9 fL [employer] Phone: Monocytes/100 WBC (Bld) 7 % 1 - 7 % [employer] Phone: Morphology Maninder (Bld) [Interp] Normal [employer] Phone: Myoglobin [Mass/Vol] 59 ng/mL High 25 - 58 ng/mL [employer] Phone: NRBC Automated 0.0 0.0 per 100 WBC [employer] Phone: Platelet distribution width (Bld) [Ratio] 14.6 % High 11.8 - 14.4 % [employer] Phone: Platelet Estimate NOT REPORTED [employer] Phone: Platelet mean volume (Bld) [Entitic vol] 9.4 fL 8.1 - 13.5 fL [employer] Phone: Platelets (Bld) [#/Vol] 215 10*3/uL [employer] Work Phone: Potassium [Moles/Vol] 4.2 mmol/L 3.7 - 5.3 mmol/L [employer] Phone: PT Coag (PPP) [Time] 11.2 s [employer] Work Phone: RBC (Bld) [#/Vol] 3.82 10*6/uL Low 3.95 - 5.1 1 m/uL [employer] Phone: RBC (Bld) [#/Vol] NOT REPORTED [employer] Phone: Segmented neutrophils/100 WBC (Bld) 86 % High 36 - 66 % [employer] Work Phone: Segs Absolute 10.14 High [employer] [facility] Work Phone: Sodium [Moles/Vol] 136 mmol/L 135 - 144 mmol/L [employer] Phone: Troponin Interp NOT REPORTED [employer] Work Phone: Troponin T NOT REPORTED <0.03 ng/mL [employer] [facility] Work Phone: Troponin, High Sensitivity 20 ng/L High 0 - 14 ng/L [employer] Work Phone: Comment on above: High Sensitivity Troponin values cannot be compared with other Troponin methodologies. Patients with high levels of Biotin oral intake (i.e >5mg/day) may have falsely decreased Troponin levels. Samples collected within 8 hours of biotin intake may require additional information for diagnosis. Urea nitrogen (BldV) [Mass/Vol] 20 mg/dL 8 - 23 mg/dL [employer] Phone: Urea nitrogen/Creatinine (Bld) [Mass ratio] NOT REPORTED [employer] Phone: WBC (Bld) [#/Vol] 11.8 10*3/uL High [employer] Phone: WBC (Bld) [#/Vol] NOT REPORTED [employer] Phone: [employer] Phone: Stroke Panelon 09-02-2020 CK [Catalytic activity/Vol] 81 U/L Normal 26-192 [facility] Comment on above: Performed By: #### S STAR #### [facility] [address] [place] [address] Antenna Machine Operator: Malik Hart DO [address] [address] [place], [place] [id number] Antenna Machine Operator: Wellington Back MD #### GLYHGB #### [facility] [address] [place], [place] [id number] Antenna Machine Operator: Wellington Back MD (cont.) Normal [facility] Comment on above: Result Comment: Aver age GFR for 70 or more years old: 75 mL/min/1.73sq m Chronic Kidney Disease: <60 mL/min/1.73sq m Kidney failure: <15 mL/min/1.73sq m eGFR calculated using average adult body mass. Additional eGFR calculator available at: http://www.[employer]/multiple_crcl_2012.htm Performed By: #### Marina GRAVES #### [facility] [address] [place] [address] Antenna Machine Operator: Malik Hart DO [address] [address] Antenna Machine Operator: Wellington Back MD #### GLYHGB #### [address] [address] Antenna Machine Operator: Wellington Back MD Anion gap [Moles/Vol] 20 mmol/L High 9-17 [facility] Comment on above: Performed By: #### Marina GRAVES #### [facility] [address] [place] [address] Antenna Machine Operator: Malik Hart DO [address] [address] Antenna Machine Operator: Wellington Back MD #### GLYHGB #### [address] [address] Antenna Machine Operator: Wellington Back MD Calcium [Mass/Vol] 9.2 mg/dL Normal 8.6-10.4 [facility] Comment on above: Performed By: #### Marina GRAVES #### [facility] [address] [place] [address] Antenna Machine Operator: Malik Hart DO [address] [address] Antenna Machine Operator: Wellington Back MD #### GLYHGB #### [address] [address] Antenna Machine Operator: Wellington Back MD Chloride [Moles/Vol] 100 mmol/L Normal 98-107 [facility] Comment on above: Performed By: #### S STAR #### [facility] [address] [place] [address] Antenna Machine Operator: Malik Hart DO [address] [address] Antenna Machine Operator: Wellington Back MD #### GLYHGB #### [address] [address] Antenna Machine Operator: Wellington Back MD CO2 [Moles/Vol] 16 mmol/L Low 20-31 [facility] Comment on above: Performed By: #### S STAR #### [facility] [address] [place] [address] Antenna Machine Operator: Malik Hart [address] [address] Antenna Machine Operator: Wellington Back MD #### GLYHGB #### [address] [address] Antenna Machine Operator: Wellintgon Back MD Creatinine [Mass/Vol] 0.63 mg/dL Normal 0.50-0.90 [facility] Comment on above: Performed By: #### Marina GRAVES #### [facility] [address] [place] [address] Antenna Machine Operator: Malik Hart DO [address] [address] Antenna Machine Operator: Wellington Back MD #### GLYHGB #### [address] [address] Antenna Machine Operator: Wellington Back MD GFR, Amer >60 Normal >60 [facility] Comment on above: Performed By: #### S STAR #### [facility] [address] [place] [address] Antenna Machine Operator: Malik Hart DO [address] [address] Antenna Machine Operator: Wellington Back MD #### GLYHGB #### [address] [address] Antenna Machine Operator: Wellington Back MD GFR,non Amer >60 Normal >60 [facility] Comment on above: Performed By: #### S STAR #### [facility] [address] [place] [address] Antenna Machine Operator: Malik Hart DO [address] [address] Antenna Machine Operator: Wellington Back MD #### GLYHGB #### [address] [address] Antenna Machine Operator: Wellington Back MD Glucose [Mass/Vol] 110 mg/dL High 70-99 [facility] Comment on above: Performed By: #### S STAR #### [facility] [address] [place] [address] Antenna Machine Operator: Malik Hart DO [address] [address] Antenna Machine Operator: Wellington Back MD #### GLYHGB #### [address] [address] Antenna Machine Operator: Wellington Back MD Myoglobin [Mass/Vol] 59 ng/mL High 25-58 [facility] Comment on above: Performed By: #### S NASIMKE #### [facility] [address] [place] [address] Antenna Machine Operator: Malik Hart DO [address] [address] Antenna Machine Operator: Wellington Back MD #### GLYHGB #### [address] [address] Antenna Machine Operator: Wellington Back MD Potassium [Moles/Vol] 4.2 mmol/L Normal 3.7-5.3 [facility] Comment on above: Performed By: #### S STAR #### [facility] [address] [place] [address] Antenna Machine Operator: Malik Hart DO [address] [address] Antenna Machine Operator: Wellington Back MD #### GLYHGB #### [address] [address] Antenna Machine Operator: Wellington Back MD Sodium [Moles/Vol] 136 mmol/L Normal 135-144 [facility] Comment on above: Performed By: #### S STAR #### [facility] [address] [place] [address] Antenna Machine Operator: Malik Hart DO [address] [address] Antenna Machine Operator: Wellington Back MD #### GLYHGB #### [address] [address] Antenna Machine Operator: Wellington Back MD Troponin, High Sens 20 ng/L High 0-14 [facility] Comment on above: Result Comment: High Sensitivity Troponin values cannot be compared with other Troponin methodologies. Patients with high levels of Biotin oral intake (i.e >5mg/day) may have falsely decreased Troponin levels. Samples collected within 8 hours of biotin intake may require additional information for diagnosis. Performed By: #### S STAR #### [facility] [address] [place] [address] Antenna Machine Operator: Malik Hart DO [address] [address] Antenna Machine Operator: Wellington Back MD #### GLYHGB #### [address] [address] Antenna Machine Operator: Wellington Back MD Urea nitrogen [Mass/Vol] 20 mg/dL Normal 8-23 [facility] Comment on above: Performed By: #### Marina GRAVES #### [facility] [address] [place] [address] Antenna Machine Operator: Malik Hart [address] [address] Antenna Machine Operator: Wellington Back MD #### GLYHGB #### [address] [address] Antenna Machine Operator: Wellington Back MD Abs. Basophil 0.00 k/uL Normal 0.0-0.2 [facility] Comment on above: Performed By: #### Marina GRAVES #### [facility] [address] [place] [address] Antenna Machine Operator: Malik Hart DO [address] [address] Antenna Machine Operator: Wellington Back MD #### GLYHGB #### [address] [address] Antenna Machine Operator: Wellington Back MD Abs.Imm.Granulocyte 0.00 k/uL Normal 0.00-0.30 [facility] Comment on above: Performed By: #### Marina GRAVES #### [facility] [address] [place] [address] Antenna Machine Operator: Malik Hart DO [address] [address] Antenna Machine Operator: Wellington Back MD #### GLYHGB #### [address] [address] Antenna Machine Operator: Wellington Back MD Abs.Neutrophil (Seg) 10.14 k/uL High 1.8-7.7 [facility] Comment on above: Performed By: #### Marina GRAVES #### [facility] [place] [address] Antenna Machine Operator: Malik Hart DO [address] [address] Antenna Machine Operator: Wellington Back MD #### GLYHGB #### [address] [address] Antenna Machine Operator: Wellington Back MD Basophils/100 WBC (Bld) 0 % Normal 0-2 [facility] Comment on above: Performed By: #### Marina GRAVES #### [facility] [address] [place] [address] Antenna Machine Operator: Malik Hart [address] [address] Antenna Machine Operator: Wellington Back MD #### GLYHGB #### [address] [address] Antenna Machine Operator: Wellington Back MD Eosinophils (Bld) [#/Vol] 0.00 10*3/uL Normal 0.0-0.4 [facility] Comment on above: Performed By: #### Marina GRAVES #### [facility] [address] [place] [address] Antenna Machine Operator: Malik Hart DO [address] [address] Antenna Machine Operator: Wellington Back MD #### GLYHGB #### [address] [address] Antenna Machine Operator: Wellington Back MD Eosinophils/100 WBC (Bld) 0 % Low 1-4 [facility] Comment on above: Performed By: #### S STAR #### [facility] [address] [place] [address] Antenna Machine Operator: Malik Hart [address] [address] Antenna Machine Operator: Wellington Back MD #### GLYHGB #### [address] [address] Antenna Machine Operator: Wellington Back MD Immature granulocytes/100 WBC (Bld) 0 % Normal 0 [facility] Comment on above: Performed By: #### S STAR #### [facility] [address] [place] [address] Antenna Machine Operator: Malik Hart DO [address] [address] Antenna Machine Operator: Wellington Back MD #### GLYHGB #### [address] [address] Antenna Machine Operator: Wellington Back MD Lymphocytes (Bld) [#/Vol] 0.83 10*3/uL Low 1.0-4.8 [facility] Comment on above: Performed By: #### S STAR #### [facility] [address] [place] [address] Antenna Machine Operator: Malik Hart [address] [address] Antenna Machine Operator: Wellington Back MD #### GLYHGB #### [address] [address] Antenna Machine Operator: Wellington Back MD Lymphocytes/100 WBC (Bld) 7 % Low 24-44 [facility] Comment on above: Performed By: #### S STAR #### [facility] [address] [place] [address] Antenna Machine Operator: Malik Hart [address] [address] Antenna Machine Operator: Wellington Back MD #### GLYHGB #### [address] [address] Antenna Machine Operator: Wellington Back MD Monocytes (Bld) [#/Vol] 0.83 10*3/uL High 0.1-0.8 [facility] Comment on above: Performed By: #### S STAR #### [facility] [address] [place] [address] Antenna Machine Operator: Malik Hart [address] [address] Antenna Machine Operator: Wellington Back MD #### GLYHGB #### [address] [address] Antenna Machine Operator: Wellington Back MD Monocytes/100 WBC (Bld) 7 % Normal 1-7 [facility] Comment on above: Performed By: #### Marina GRAVES #### [facility] [address] [place] [address] Antenna Machine Operator: Malik Hart [address] [address] Antenna Machine Operator: Wellington Back MD #### GLYHGB #### [address] [address] Antenna Machine Operator: Wellington Back MD Morphology Maninder (Bld) [Interp] Normal Normal [facility] Comment on above: Performed By: #### S TROKE #### [facility] [address] [place] [address] Antenna Machine Operator: Malik Hart DO [address] [address] Antenna Machine Operator: Wellington Back MD #### GLYHGB #### [address] [address] Antenna Machine Operator: Wellington Back MD Neutrophil (Seg) 86 % High 36-66 [facility] Comment on above: Performed By: #### S STAR #### [facility] [address] [place] [address] Antenna Machine Operator: Malik Hart DO [address] [address] Antenna Machine Operator: Wellington Back MD #### GLYHGB #### [address] [address] Antenna Machine Operator: Wellington Back MD aPTT Coag (Bld) [Time] 21.8 s Normal 20.5-30.5 [facility] Comment on above: Result Comment: IV Heparin Therapy Range: 48.6-77.8 Performed By: #### S STAR #### [facility] [address] [place] [address] Antenna Machine Operator: Malik Hart DO [address] [address] Antenna Machine Operator: Wellington Back MD #### GLYHGB #### [address] [address] Antenna Machine Operator: Wellington Back MD INR Coag (PPP) [Relative time] 1.1 {INR} Normal [facility] Comment on above: Result Comment: Therapeutic Range: Moderate Anticoagulant Intensity: INR = 2.0-3.0 High Anticoagulant Intensity: INR = 2.5-3.5 Performed By: #### S STAR #### [facility] [address] [place] [address] Antenna Machine Operator: Malik Hart [address] [address] Antenna Machine Operator: Wellington Back MD #### GLYHGB #### [address] [address] Antenna Machine Operator: Wellington Back MD PT Coag (PPP) [Time] 11.2 s Normal 9.1-12.3 [facility] Comment on above: Performed By: #### S STAR #### [facility] [address] [place] [address] Antenna Machine Operator: Malik Hart [address] [address] Antenna Machine Operator: Wellington Back MD #### GLYHGB #### [address] [address] Antenna Machine Operator: Wellington Back MD Erythrocyte distribution width (RBC) [Ratio] 14.6 % High 11.8-14.4 [facility] Comment on above: Performed By: #### S STAR #### [facility] [address] [place] [address] Antenna Machine Operator: Mailk Hart [address] [address] Antenna Machine Operator: Wellington Back MD #### GLYHGB #### [address] [address] Antenna Machine Operator: Wellington Back MD Hematocrit (Bld) [Volume fraction] 35.8 % Low 36.3-47.1 [facility] Comment on above: Performed By: #### S STAR #### [facility] [address] [place] [address] Antenna Machine Operator: Malik Hart [address] [address] Antenna Machine Operator: Wellington Bcak MD #### GLYHGB #### [address] [address] Antenna Machine Operator: Wellington Back MD Hemoglobin (Bld) [Mass/Vol] 11.4 g/dL Low 11.9-15.1 [facility] Comment on above: Performed By: #### Marina GRAVES #### [facility] [address] [place] [address] Antenna Machine Operator: Malik Hart [address] [address] Antenna Machine Operator: Wellington Back MD #### GLYHGB #### [address] [address] Antenna Machine Operator: Wellington Back MD MCH (RBC) [Entitic mass] 29.8 pg Normal 25.2-33.5 [facility] Comment on above: Performed By: #### S STAR #### [facility] [address] [place] [address] Antenna Machine Operator: Malik Hart [address] [address] Antenna Machine Operator: Wellington Back MD #### GLYHGB #### [address] [address] Antenna Machine Operator: Wellington Back MD MCHC (RBC) [Mass/Vol] 31.8 g/dL Normal 28.4-34.8 [facility] Comment on above: Performed By: #### S STAR #### [facility] [address] [place] [address] Antenna Machine Operator: Malik Hart DO [address] [address] Antenna Machine Operator: Wellington Back MD #### GLYHGB #### [address] [address] Antenna Machine Operator: Wellington Back MD MCV (RBC) [Entitic vol] 93.7 fL Normal 82.6-102.9 [facility] Comment on above: Performed By: #### Marina GRAVES #### [facility] [address] [place] [address] Antenna Machine Operator: Malik Hart DO [address] [address] Antenna Machine Operator: Wellington Back MD #### GLYHGB #### [address] [address] Antenna Machine Operator: Wellington Back MD NRBC Automated 0.0 per 100 WBC Normal 0.0 [facility] Comment on above: Performed By: #### Marina GRAVES #### [facility] [address] [place] [address] Antenna Machine Operator: Malik Hart DO [address] [address] Antenna Machine Operator: Wellington Back MD #### GLYHGB #### [address] [address] Antenna Machine Operator: Wellington Back MD Platelet mean volume (Bld) [Entitic vol] 9.4 fL Normal 8.1-13.5 [facility] Comment on above: Performed By: #### S STAR #### [facility] [address] [place] [address] Antenna Machine Operator: Fanelly, Malik, [address] [address] Antenna Machine Operator: Wellington Back MD #### GLYHGB #### [address] [address] Antenna Machine Operator: Wellington Back MD Platelets (Bld) [#/Vol] 215 10*3/uL Normal 138-453 [facility] Comment on above: Performed By: #### Marina GRAVES #### [facility] [address] [place] [address] Antenna Machine Operator: Malik Hart [address] [address] Antenna Machine Operator: Wellington Back MD #### GLYHGB #### [address] [address] Antenna Machine Operator: Wellington Back MD RBC (Bld) [#/Vol] 3.82 10*6/uL Low 3.95-5.11 [facility] Comment on above: Performed By: #### Marina GRAVES #### [facility] [address] [place] [address] Antenna Machine Operator: Malik Hart DO [address] [address] Antenna Machine Operator: Wellington Back MD #### GLYHGB #### [address] [address] Antenna Machine Operator: Wellington Back MD WBC (Bld) [#/Vol] 11.8 10*3/uL High 3.5-11.3 [facility] Comment on above: Performed By: #### S STAR #### [facility] [address] [place] [address] Antenna Machine Operator: Malik Hart DO [address] [address] Antenna Machine Operator: Wellington Back MD #### GLYHGB #### [address] [address] Antenna Machine Operator: Wellington Back MD Auto Diff Performed NOT REPORTED Normal [facility] Comment on above: Performed By: #### S STAR #### [facility] [address] [place] [address] Antenna Machine Operator: Malik Hart [address] [address] Antenna Machine Operator: Wellington Back MD #### GLYHGB #### [address] [address] Antenna Machine Operator: Wellington Back MD BUN/CRE Ratio NOT REPORTED Normal -20 [facility] Comment on above: Performed By: #### S STAR #### [facility] [address] [place] [address] Antenna Machine Operator: Malik Hart [address] [address] Antenna Machine Operator: Wellington Back MD #### GLYHGB #### [address] [address] Antenna Machine Operator: Wellington Back MD Performed By: #### B MPX, PROL, TSHX, LIPR #### [address] [address] Antenna Machine Operator: Wellington Back MD Platelet Estimate NOT REPORTED Normal [facility] Comment on above: Performed By: #### S TROKE #### [facility] [address] [place] [address] Antenna Machine Operator: Malik Hart DO [address] [address] Antenna Machine Operator: Wellington Back MD #### GLYHGB #### [address] [address] Antenna Machine Operator: Wellington Back MD RBC morphology finding Nom (Bld) NOT REPORTED Normal [facility] Comment on above: Performed By: #### S STAR #### [facility] [address] [place] [address] Antenna Machine Operator: Malik Hart DO [address] [address] Antenna Machine Operator: Wellington Back MD #### GLYHGB #### [address] [address] Antenna Machine Operator: Wellington Back MD Staging: NOT REPORTED Normal [facility] Comment on above: Performed By: #### S STAR #### [facility] [address] [place] [address] Antenna Machine Operator: Malik Hart DO [address] [address] Antenna Machine Operator: Wellington Back MD #### GLYHGB #### [address] [address] Antenna Machine Operator: Wellington Bcak MD Performed By: #### B MPX, PROL, TSHX, LIPR #### [address] [address] Antenna Machine Operator: Wellington Back MD Troponin Interp. NOT REPORTED Normal [facility] Comment on above: Performed By: #### S STAR #### [facility] [address] [place] [address] Antenna Machine Operator: Malik Hart DO [address] [address] Antenna Machine Operator: Wellington Back MD #### GLYHGB #### [place] [place] [address] Antenna Machine Operator: Wellington Back MD Troponin T NOT REPORTED Normal <0.03 [facility] Comment on above: Performed By: #### S STAR #### [facility] [address] [place] [address] Antenna Machine Operator: Malik Hart DO [address] [address] Antenna Machine Operator: Wellington Back MD #### GLYHGB #### [address] [address] Antenna Machine Operator: Wellington Back MD WBC Morphology NOT REPORTED Normal [facility] Comment on above: Performed By: #### S STAR #### [facility] [address] [place] [address] Antenna Machine Operator: Malik Hart DO [facility] [address] [place] [address] Antenna Machine Operator: Wellington Back MD #### GLYHGB #### [address] [address] Antenna Machine Operator: Wellington Back MD Basic Metabolic Panel w/ Ref rima to MGOrdered By: Law Stratton on 06-02-2020 Anion gap [Moles/Vol] 9 mmol/L 9 - 17 mmol/L [employer] Phone: Calcium [Mass/Vol] 8.9 mg/dL 8.6 - 10. 4 mg/dL [employer] Phone: Chloride [Moles/Vol] 105 mmol/L 98 - 10 7 mmol/L [employer] Phone: CO2 [Moles/Vol] 24 mmol/L 20 - 31 mmol/L [employer] Phone: Creatinine [Mass/Vol] 0.61 mg/dL 0.50 - 0.90 mg/dL [facility] Work Phone: GFR >60 >60 mL/min [employer] Work Phone: GFR Non- >60 >60 mL/min [facility] Work Phone: Glucose [Mass/Vol] 113 mg/dL High 70 - 99 mg/dL [employer] Work Phone: Potassium [Moles/Vol] 4.2 mmol/L 3.7 - 5.3 mmol/L [employer] Work Phone: Sodium [Moles/Vol] 138 mmol/L 135 - 144 mmol/L [employer] Phone: Urea nitrogen (BldV) [Mass/Vol] 30 mg/dL High 8 - 23 mg/dL [facility] Work Phone: Urea nitrogen/Creatinine (Bld) [Mass ratio] 49 High [facility] Work Phone: CBC Auto DifferentialOrdered By: Law Stratton on 06-02-2020 Absolute Eos # 0.10 [facility] Work Phone: Absolute Immature Granulocyte 0.00 [facility] Work Phone: Absolute Lymph # 0.38 Low [facility] [facility] Work Phone: Absolute Foster # 0.48 [employer] [facility] Work Phone: Basophils (Bld) [#/Vol] 0.00 10*3/uL [facility] Work Phone: Basophils/100 WBC (Bld) 0 % 0 - 2 % [facility] Work Phone: Differential Type NOT REPORTED [employer] Work Phone: Eosinophils/100 WBC (Bld) 1 % 1 - 4 % [facility] Work Phone: Hematocrit (Bld) [Volume fraction] 36.5 % 36.3 - 47.1 % [employer] Phone: Hemoglobin.gastrointes tinal spec 1 Ql (Stl) 11.7 g/dL Low 11.9 - 15.1 g/dL [employer] Phone: Immature granulocytes/100 WBC (Bld) 0 % 0 [employer] Phone: Interpretation and review of laboratory results Abnormal [employer] Phone: Lymphocytes/100 WBC (Bld) 4 % Low 24 - 43 % [employer] Phone: MCH (RBC) [Entitic mass] 29.3 pg 25.2 - 33.5 pg [employer] Phone: MCHC (RBC) [Mass/Vol] 32.1 g/dL 28.4 - 34.8 g/dL [employer] Phone: MCV (RBC) [Entitic vol] 91.3 fL 82.6 - 102.9 fL [employer] Phone: Monocytes/100 WBC (Bld) 5 % 3 - 12 % [employer] Phone: Morphology Maninder (Bld) [Interp] Normal [employer] Phone: NRBC Automated 0.0 0.0 per 100 WBC [employer] Phone: Platelet distribution width (Bld) [Ratio] 13.7 % 11.8 - 14.4 % [employer] Phone: Platelet Estimate NOT REPORTED [employer] Phone: Platelet mean volume (Bld) [Entitic vol] 9.7 fL 8.1 - 13.5 fL [employer] Phone: Platelets (Bld) [#/Vol] 191 10*3/uL [employer] Phone: RBC (Bld) [#/Vol] 4.00 10*6/uL 3.95 - 5.1 1 m/uL [employer] Phone: RBC (Bld) [#/Vol] NOT REPORTED [employer] Phone: Segmented neutrophils/100 WBC (Bld) 90 % High 36 - 65 % [facility] Work Phone: Segs Absolute 8.64 High [employer] Work Phone: WBC (Bld) [#/Vol] 9.6 10*3/uL [employer] Phone: WBC (Bld) [#/Vol] NOT REPORTED [employer] Phone: COVID-19, RapidOrdered By: Michael Stratton on 06-02-2020 SARS-CoV-2 (COVID-19) RNA LADAN+probe Ql (Unsp spec) Not detected Not Detected [employer] Phone: Comment on above: Rapid NAAT: The [...] management decisions. Fact sheet for Healthcare Providers: https://www.fda.gov/media/513920/download Fact sheet for Patients: https://www.fda.gov/media/434583/download Methodology: Isothermal Nucleic Acid Amplification Specimen Description .NASOPHARYNGEAL SWAB [employer] [employer] Phone: CT Head WO ContrastOrdered B y: Law Stratton on 06-02-2020 No acute intracrania l abnormality. [facility] Phone: EXAMINATION: CT OF T HE HEAD [...] calcifications are seen compatible with atherosclerotic disease. [employer] Phone: Jaquan, [facility] Incoming Radiant Results From [employer] - 06/02/2020 3:27 PM EDT EXAMINATION: CT [...] atherosclerotic disease. IMPRESSION: No acute intracranial abnormality. [employer] Phone: Hepatic Function PanelOrdere d By: Law Stratton on 06-02-2020 Albumin [Mass/Vol] 3.8 g/dL 3.5 - 5.2 g/dL [facility] [employer] Phone: Albumin/Globulin [Mass ratio] 1.6 {ratio} [employer] Phone: ALP (Bld) [Catalytic activity/Vol] 75 U/L 35 - 104 U/L [employer] Phone: ALT [Catalytic activity/Vol] 17 U/L 5 - 33 U/L [employer] Phone: AST [Catalytic activity/Vol] 21 U/L <32 [employer] Phone: Bilirubin [Mass/Vol] 0.43 mg/dL 0.3 - 1 .2 mg/dL [facility] [employer] Phone: Bilirubin, Indirect CANNOT BE CALCULATED 0.00 - 1.00 mg/dL [employer] [employer] Phone: Bilirubin.indirect [Mass/Vol] mg/dL <0.31 mg/dL [employer] Phone: Free PSA/Total PSA [Mass fraction] 6.2 g/dL Low 6.4 - 8.3 g/dL [employer] Phone: Globulin NOT REPORTED 1.5 - 3.8 g/dL [employer] Phone: Laboratory - Chemistry and C hemistry - challengeOrdered By: Law Stratton on 06-02-2020 GFR/1.73 sq M.predicted MDRD (S/P/Bld) [Vol rate/Area] [employer] Phone: Comment on above: Average GFR for 70 o r more years old: 75 mL/min/1.73sq m Chronic Kidney Disease: <60 mL/min/1.73sq m Kidney failure: <15 mL/min/1.73sq m eGFR calculated using average adult body mass. Additional eGFR calculator available at: http://www.[employer]/multiple_crcl_2012.htm Stage 1: Some kidney damage normal GFR Stage 2: Mild kidney damage GFR 60-89 Stage 3: Moderate kidney damage GFR 30-59 Stage 4: Severe kidney damage GFR 15-29 Stage 5: Severe kidney damage GFR <15 ESRD - chronic treatment by dialysis or transplant LipaseOrdered By: Sharla on 06-02-2020 Lipase [Catalytic activity/Vol] 25 U/L 13 - 60 U/L [facility] [employer] Phone: No Panel InformationOrdered By: Law Stratton on 06-02-2020 Interpretation and review of laboratory results Abnormal [employer] Phone: CBC auto differentialon 03-3 Basophils (Bld) [#/Vol] 0.03 10*3/uL [employer] Phone: Basophils/100 WBC (Bld) 1 % 0 - 2 % [employer] Phone: Differential Type NOT REPORTED [employer] Phone: Eosinophils (Bld) [#/Vol] 0.15 10*3/uL [employer] Phone: Eosinophils/100 WBC (Bld) 3 % 1 - 4 % [employer] Phone: Erythrocyte distribution width (RBC) [Ratio] 13.5 % 11.8 - 14.4 % [employer] Phone: Hematocrit (Bld) [Volume fraction] 36.7 % 36.3 - 47.1 % [employer] Phone: Hemoglobin (Bld) [Mass/Vol] 11.8 g/dL Low 11.9 - 15.1 g/dL [facility] Phone: Immature granulocytes (Bld) [#/Vol] 0 % 0 [employer] Phone: Immature granulocytes (Bld) [#/Vol] 10*3/uL [facility] Phone: Interpretation and review of laboratory results Abnormal [employer] Phone: Lymphocytes (Bld) [#/Vol] 0.98 10*3/uL Low [employer] Phone: Lymphocytes/100 WBC (Bld) 16 % Low 24 - 43 % [employer] Phone: MCH (RBC) [Entitic mass] 29.5 pg 25.2 - 33.5 pg [employer] Phone: MCHC (RBC) [Mass/Vol] 32.2 g/dL 28.4 - 34.8 g/dL [facility] Phone: MCV (RBC) [Entitic vol] 91.8 fL 82.6 - 102.9 fL [employer] Phone: Monocytes (Bld) [#/Vol] 0.69 10*3/uL [employer] Phone: Monocytes/100 WBC (Bld) 12 % 3 - 12 % [employer] Phone: Platelet mean volume (Bld) [Entitic vol] 9.7 fL 8.1 - 13.5 fL [employer] Phone: Platelets (Bld) [#/Vol] 212 10*3/uL [employer] Phone: Platelets (Bld) [#/Vol] NOT REPORTED [employer] Phone: RBC (Bld) [#/Vol] 4.00 10*6/uL 3.95 - 5.1 1 m/uL [employer] Phone: RBC morphology finding Nom (Bld) NOT REPORTED [employer] Phone: Segmented neutrophils/100 WBC (Bld) 68 % High 36 - 65 % [employer] Phone: Segs Absolute 4.13 [employer] Work Phone: WBC (Bld) [#/Vol] 6.0 10*3/uL [employer] Phone: WBC (Bld) [#/Vol] 0.0 10*3/uL 0.0 per 10 0 WBC [employer] Phone: WBC Morphology NOT REPORTED [facility] [facility] Work Phone: Comprehensive Metabolic Pane john 05-08-2020 Albumin [Mass/Vol] 4.3 g/dL 3.5 - 5.2 g/dL [employer] Phone: Albumin/Globulin [Mass ratio] 1.7 {ratio} [employer] Phone: ALP [Catalytic activity/Vol] 67 U/L 35 - 104 U/L [employer] Phone: ALT [Catalytic activity/Vol] 13 U/L 5 - 33 U/L [employer] Phone: Anion gap [Moles/Vol] 9 mmol/L 9 - 17 mmol/L [employer] Phone: AST [Catalytic activity/Vol] 19 U/L <32 [employer] Phone: Bilirubin Ql (U) 0.53 mg/dL 0.3 - 1.2 mg/dL [employer] Phone: Bun/Cre Ratio 25 High [employer] Work Phone: Calcium [Mass/Vol] 9.8 mg/dL 8.6 - 10. 4 mg/dL [employer] Phone: Chloride [Moles/Vol] 104 mmol/L 98 - 10 7 mmol/L [employer] Phone: CO2 [Moles/Vol] 25 mmol/L 20 - 31 mmol/L [employer] Phone: Creatinine [Mass/Vol] 0.6 mg/dL 0.50 - 0.90 mg/dL [employer] Phone: GFR >60 >60 mL/min [employer] Phone: GFR Non- >60 >60 mL/min [employer] Phone: Glucose [Mass/Vol] 94 mg/dL 70 - 99 mg/dL [employer] Phone: Interpretation and review of laboratory results Abnormal [employer] Phone: Potassium [Moles/Vol] 3.9 mmol/L 3.7 - 5.3 mmol/L [employer] Phone: Protein [Mass/Vol] 6.9 g/dL 6.4 - 8.3 g/dL [employer] Phone: Sodium [Moles/Vol] 138 mmol/L 135 - 144 mmol/L [employer] Phone: Urea nitrogen [Mass/Vol] 15 mg/dL 8 - 23 mg/dL [employer] Phone: Metabolic Panelon 05-08-2020 GFR/1.73 sq M predicted among non-blacks MDRD (S/P/Bld) [Vol rate/Area] [employer] Phone: Comment on above: Stage 1: Some [...] body mass. Additional eGFR calculator available at: http://www.[employer]/multiple_crcl_2012.htm Troponinon 05-08-2020 Interpretation and review of laboratory results Abnormal [employer] Phone: Troponin I.cardiac [Mass/Vol] NOT REPORTED [employer] Phone: Troponin T.cardiac [Mass/Vol] NOT REPORTED <0.03 ng/mL [employer] Phone: Troponin, High Sensitivity 16 ng/L High 0 - 14 ng/L [employer] Phone: Comment on above: High Sensitivity Troponin values cannot be compared with other Troponin methodologies. Patients with high levels of Biotin oral intake (i.e >5mg/day) may have falsely decreased Troponin levels. Samples collected within 8 hours of biotin intake may require additional information for diagnosis. Interpretation and review of laboratory results Abnormal [employer] Phone: Troponin I.cardiac [Mass/Vol] NOT REPORTED [employer] Phone: Troponin T.cardiac [Mass/Vol] NOT REPORTED <0.03 ng/mL [employer] Phone: Troponin, High Sensitivity 17 ng/L High 0 - 14 ng/L [employer] Phone: Comment on above: High Sensitivity Troponin [...] 7 mmol/L Low 9 - 17 mmol/L [employer] Phone: Bun/Cre Ratio 31 High [employer] Work Phone: Calcium [Mass/Vol] 8.9 mg/dL 8.6 - 10. 4 mg/dL [employer] Phone: Chloride [Moles/Vol] 107 mmol/L 98 - 10 7 mmol/L [employer] Phone: CO2 [Moles/Vol] 26 mmol/L 20 - 31 mmol/L [employer] Phone: Creatinine [Mass/Vol] 0.72 mg/dL 0.50 - 0.90 mg/dL [employer] Phone: GFR >60 >60 mL/min [employer] Phone: GFR Non- >60 >60 mL/min [employer] Phone: Glucose [Mass/Vol] 96 mg/dL 70 - 99 mg/dL [employer] Phone: Interpretation and review of laboratory results Abnormal [employer] Phone: Potassium [Moles/Vol] 4.2 mmol/L 3.7 - 5.3 mmol/L [employer] Phone: Sodium [Moles/Vol] 140 mmol/L 135 - 144 mmol/L [employer] Phone: Urea nitrogen [Mass/Vol] 22 mg/dL 8 - 23 mg/dL [employer] Phone: CBCon 04-18-2020 Erythrocyte distribution width (RBC) [Ratio] 13.2 % 11.8 - 14.4 % [employer] Phone: Hematocrit (Bld) [Volume fraction] 34.5 % Low 36.3 - 47.1 % [employer] Phone: Hemoglobin (Bld) [Mass/Vol] 11.0 g/dL Low 11.9 - 15.1 g/dL [employer] Phone: Interpretation and review of laboratory results Abnormal [employer] Phone: MCH (RBC) [Entitic mass] 29.6 pg 25.2 - 33.5 pg [employer] Phone: MCHC (RBC) [Mass/Vol] 31.9 g/dL 28.4 - 34.8 g/dL [employer] Phone: MCV (RBC) [Entitic vol] 93.0 fL 82.6 - 102.9 fL [employer] Phone: Platelet mean volume (Bld) [Entitic vol] 10.0 fL 8.1 - 13.5 fL [employer] Phone: Platelets (Bld) [#/Vol] 192 10*3/uL [employer] Phone: RBC (Bld) [#/Vol] 3.71 10*6/uL Low 3.95 - 5.1 1 m/uL [employer] Phone: WBC (Bld) [#/Vol] 5.2 10*3/uL [employer] Phone: WBC (Bld) [#/Vol] 0.0 10*3/uL 0.0 per 10 0 WBC [employer] Phone: ECHOCARDIOGRAM LIMITEDon [facility] Transthoracic Echocardiography Report (TTE) Patient Name SPENCER Date of Study 04/18/2020 EVER Mckay Date of 1940 Gender Female Age 79 year(s) Race Room Number 0315 Height: 63 inch, 160.02 cm Corporate ID [id number] Weight: 163 pounds, 73.9 kg # Patient Acct [id number] BSA: 1.77 m^2 BMI: 28.87 # kg/m^2 MR # [id number] Ge[employer] Party Chief Rylee Verma Interpreting Physician Alissa Marx Fellow Referring Nurse Practitioner Interpreting Referring Physician Alissa Marx Fellow Type of Study TTE procedure:2D Echocardiogram, Bubble Study. Procedure Date Date: 04/18/2020 Start: 02:58 PM Study Location: [facility] History / Tech. Comments: TIA, [...] 1.66 cm Calculated LVEF (%): 58.56 % [employer] Work Phone: Jaquan, pn Incoming Cardio Results From [facility] - 04/18/2020 6:12 PM EST [facility] Transthoracic Echocardiography Report (TTE) Patient Name SPENCER Date of Study 04/18/2020 EVER Mckay Date of 1940 Gender Female Age 79 year(s) Race Room Number 0315 Height: 63 inch, 160.02 cm Corporate ID [id number] Weight: 163 pounds, 73.9 kg # Patient Acct [id number] BSA: 1.77 m^2 BMI: 28.87 # kg/m^2 MR # [id number] Ge[employer] Party Chief Rylee Verma Interpreting Physician Alissa Marx Referring Nurse Practitioner Interpreting Referring Physician Alissa Marx Type of Study TTE procedure:2D Echocardiogram, Bubble Study. Procedure Date Date: 04/18/2020 Start: 02:58 PM Study Location: [facility] History / Tech. Comments: TIA, [...] 1.66 cm Calculated LVEF (%): 58.56 % [employer] Phone: EKG 12 Leadon 04-18-2020 Atrial Rate 64 BPM [employer] Phone: P [place] 72 degrees [employer] Phone: P-R Interval 162 ms [employer] Phone: Q-T Interval 410 ms [employer] Phone: QRS Duration 102 ms [employer] Phone: QTc Calculation (Bazett) 422 ms [employer] Phone: R [place] 64 degrees [employer] Work Phone: T [place] 50 degrees [employer] Phone: Ventricular Rate 64 BPM [employer] Work Phone: Normal sinus rhythm Cannot rule out Anterior infarct (cited on or before 28-JUN-2009) Abnormal ECG When compared with ECG of 28-JUN-2009 03:41, No significant change was found Confirmed by MARCELINO CLIFFORD ([id number]) on 04/18/2020 8:42:07 AM [employer] Phone: Jaquan, M[facility] Incoming E kg Results From [facility] [place] - 04/18/2020 8:42 AM EST Normal sinus rhythm Cannot rule out Anterior infarct (cited on or before 28-JUN-2009) Abnormal ECG When compared with ECG of 28-JUN-2009 03:41, No significant change was found Confirmed by MARCELINO CLIFFORD ([id number]) on 04/18/2020 8:42:07 AM [facility] Work Phone: Hemoglobin A1con 04-18-2020 Glucose [Mass/Vol] 114 mg/dL [employer] Phone: Comment on above: The ADA and AACC rec ommend providing the estimated average glucose result to permit better patient understanding of their HBA1c result. HbA1c (Bld) [Mass fraction] 5.6 % 4.0 - 6.0 % [employer] Phone: Lipid panel - fastingon 04-08 Cholesterol [Mass/Vol] 153 mg/dL <200 [employer] Phone: Comment on above: Cholesterol Guidelines: <200 Desirable 200-240 Borderline >240 Undesirable Cholesterol in HDL [Mass/Vol] 78 mg/dL >40 [employer] Phone: Comment on above: HDL Guidelines: <40 Undesirable 40-59 Borderline >59 Desirable Cholesterol in LDL [Mass/Vol] 65 mg/dL 0 - 130 mg/dL [employer] Phone: Comment on above: LDL Guidelines: <100 Desirable 100-129 Near to/above Desirable 130-159 Borderline >159 Undesirable Direct (measured) LDL and calculated LDL are not interchangeable tests. Cholesterol in VLDL [Mass/Vol] NOT REPORTED 1 - 30 mg/dL [employer] Phone: Cholesterol.total/Chol esterol in HDL [Mass ratio] 2 {ratio} <5 [employer] Phone: Triglyceride [Mass/Vol] 51 mg/dL <150 [employer] Phone: Comment on above: Triglyceride Guidelines: <150 Desirable 150-199 Borderline 200-499 High >499 Very high Based on AHA Guidelines for fasting triglyceride, November 2011. Metabolic Panelon 04-18-2020 GFR/1.73 sq M predicted among non-blacks MDRD (S/P/Bld) [Vol rate/Area] [employer] Phone: Comment on above: Average GFR for 70 o r more years old: 75 mL/min/1.73sq m Chronic Kidney Disease: <60 mL/min/1.73sq m Kidney failure: <15 mL/min/1.73sq m eGFR calculated using average adult body mass. Additional eGFR calculator available at: http://www.Orgdot.[employer]/multiple_crcl_2011.htm Stage 1: Some kidney damage normal GFR Stage 2: Mild kidney damage GFR 60-89 Stage 3: Moderate kidney damage GFR 30-59 Stage 4: Severe kidney damage GFR 15-29 Stage 5: Severe kidney damage GFR <15 ESRD - chronic treatment by dialysis or transplant APTTon 04-17-2020 aPTT Coag (Bld) [Time] 25.6 s Me [employer] Phone: Comment on above: IV Heparin Therapy Range: 62.0-94.0 CBC Auto Differentialon 03--2020 Basophils (Bld) [#/Vol] 0.03 10*3/uL [employer] Phone: Basophils/100 WBC (Bld) 1 % 0 - 2 % [employer] Phone: Differential Type NOT REPORTED [employer] Phone: Eosinophils (Bld) [#/Vol] 0.13 10*3/uL [employer] Phone: Eosinophils/100 WBC (Bld) 2 % 1 - 4 % [employer] Phone: Erythrocyte distribution width (RBC) [Ratio] 13.2 % 11.8 - 14.4 % [employer] Phone: Hematocrit (Bld) [Volume fraction] 37.6 % 36.3 - 47.1 % [employer] Phone: Hemoglobin (Bld) [Mass/Vol] 11.8 g/dL Low 11.9 - 15.1 g/dL [employer] Phone: Immature granulocytes (Bld) [#/Vol] 0 % 0 [employer] Phone: Immature granulocytes (Bld) [#/Vol] 10*3/uL [employer] Phone: Interpretation and review of laboratory results Abnormal [employer] Phone: Lymphocytes (Bld) [#/Vol] 1.41 10*3/uL [employer] Phone: Lymphocytes/100 WBC (Bld) 23 % Low 24 - 43 % [employer] Phone: MCH (RBC) [Entitic mass] 29.1 pg 25.2 - 33.5 pg [employer] Phone: MCHC (RBC) [Mass/Vol] 31.4 g/dL 28.4 - 34.8 g/dL [employer] Work Phone: MCV (RBC) [Entitic vol] 92.8 fL 82.6 - 102.9 fL [employer] Phone: Monocytes (Bld) [#/Vol] 0.69 10*3/uL [employer] Work Phone: Monocytes/100 WBC (Bld) 11 % 3 - 12 % [employer] Work Phone: Platelet mean volume (Bld) [Entitic vol] 10.8 fL 8.1 - 13.5 fL [employer] Phone: Platelets (Bld) [#/Vol] 210 10*3/uL [employer] Work Phone: Platelets (Bld) [#/Vol] NOT REPORTED [employer] Work Phone: RBC (Bld) [#/Vol] 4.05 10*6/uL 3.95 - 5.1 1 m/uL [employer] Work Phone: RBC morphology finding Nom (Bld) NOT REPORTED [employer] Phone: Segmented neutrophils/100 WBC (Bld) 63 % 36 - 65 % [employer] Work Phone: Segs Absolute 3.86 [employer] [facility] Work Phone: WBC (Bld) [#/Vol] 0.0 10*3/uL 0.0 per 10 0 WBC [employer] Work Phone: WBC (Bld) [#/Vol] 6.1 10*3/uL [employer] Work Phone: WBC Morphology NOT REPORTED [employer] [facility] Work Phone: CT HEAD WO CONTRASTon 2020 [...] of the visualized skull or soft tissues. [employer] Phone: No acute intracrania l abnormality. Results were sent to radiology results communication. [employer] Phone: Jaquan, [facility] Incoming Radiant Results From [employer] - 04/17/2020 3:42 PM EST EXAMINATION: CT [...] Results were sent to radiology results communication. [employer] Phone: CTA HEAD NECK W CONTRASTon 0 [...] fluid collection. The kevin-white differentiation is maintained. [employer] Work Phone: Jaquan, [facility] Incoming Radiant Results From [employer] - 04/17/2020 5:46 PM EST EXAMINATION: CTA [...] size. 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 [employer] Phone: No large vessel occlusion or hemodynamic stenosis. 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 [employer] Phone: Comprehensive Metabolic Pane john 04-17-2020 Albumin [Mass/Vol] 4 g/dL 3.5 - 5.2 g/dL [employer] Phone: Albumin/Globulin [Mass ratio] 1.4 {ratio} [employer] Phone: ALP [Catalytic activity/Vol] 55 U/L 35 - 104 U/L [employer] Phone: ALT [Catalytic activity/Vol] 13 U/L 5 - 33 U/L [employer] Phone: Anion gap [Moles/Vol] 12 mmol/L 9 - 17 mmol/L [employer] Phone: AST [Catalytic activity/Vol] 19 U/L <32 [employer] Phone: Bilirubin Ql (U) 0.39 mg/dL 0.3 - 1.2 mg/dL [employer] Phone: Bun/Cre Ratio 37 High [employer] Work Phone: Calcium [Mass/Vol] 9.4 mg/dL 8.6 - 10. 4 mg/dL [employer] Phone: Chloride [Moles/Vol] 103 mmol/L 98 - 10 7 mmol/L [employer] Phone: CO2 [Moles/Vol] 24 mmol/L 20 - 31 mmol/L [employer] Phone: Creatinine [Mass/Vol] 0.62 mg/dL 0.50 - 0.90 mg/dL [employer] Phone: GFR >60 >60 mL/min [employer] Phone: GFR Non- >60 >60 mL/min [employer] Phone: Glucose [Mass/Vol] 92 mg/dL 70 - 99 mg/dL [employer] Phone: Interpretation and review of laboratory results Abnormal [employer] Phone: Potassium [Moles/Vol] 3.7 mmol/L 3.7 - 5.3 mmol/L [employer] Phone: Protein [Mass/Vol] 6.9 g/dL 6.4 - 8.3 g/dL [employer] Phone: Sodium [Moles/Vol] 139 mmol/L 135 - 144 mmol/L [employer] Phone: Urea nitrogen [Mass/Vol] 23 mg/dL 8 - 23 mg/dL [employer] Phone: Glucose, Whole Bloodon 04-17 Glucose [Mass/Vol] 89 mg/dL 74 - 100 mg/dL [employer] Phone: Glucose [Mass/Vol] 68 mg/dL Low 74 - 100 mg/dL [employer] Phone: Interpretation and review of laboratory results Abnormal [employer] Phone: MRI BRAIN WO CONTRASTon 04-08 EXAMINATION: [...] The soft tissues demonstrate no acute abnormality. [employer] Phone: Jaquan, [facility] Incoming Radiant Results From [employer] - 04/17/2020 5:13 PM EST EXAMINATION: MRI [...] parenchymal volume loss. Minimal chronic microvascular disease. [employer] Phone: No acute intracrania l abnormality. Minimal parenchymal volume loss. Minimal chronic microvascular disease. [employer] Phone: Metabolic Panelon 04-17-2020 GFR/1.73 sq M predicted among non-blacks MDRD (S/P/Bld) [Vol rate/Area] [employer] Phone: Comment on above: Average GFR for 70 o r more years old: 75 mL/min/1.73sq m Chronic Kidney Disease: <60 mL/min/1.73sq m Kidney failure: <15 mL/min/1.73sq m eGFR calculated using average adult body mass. Additional eGFR calculator available at: http://www.Orgdot.[employer]/multiple_crcl_2012.htm Stage 1: Some kidney damage normal GFR Stage 2: Mild kidney damage GFR 60-89 Stage 3: Moderate kidney damage GFR 30-59 Stage 4: Severe kidney damage GFR 15-29 Stage 5: Severe kidney damage GFR <15 ESRD - chronic treatment by dialysis or transplant POCT Glucoseon 04-17-2020 Glucose [Mass/Vol] 68 mg/dL [employer] Phone: Interpretation and review of laboratory results Normal [employer] Phone: QC OK? ok [employer] Phone: Protime-INRon 04-17-2020 INR Coag (PPP) [Relative time] 0.9 {INR} [employer] Phone: Comment on above: Non-therapeutic Range: INR = 0.9-1.2 Therapeutic Range: Moderate Anticoagulant Intensity: INR = 2.0-3.0 High Anticoagulant Intensity: INR = 2.5-3.5 PT Coag (PPP) [Time] 12.4 s [employer] Phone: Troponinon 04-17-2020 Interpretation and review of laboratory results Abnormal [employer] Phone: Troponin I.cardiac [Mass/Vol] NOT REPORTED [employer] Phone: Troponin T.cardiac [Mass/Vol] NOT REPORTED <0.03 ng/mL [employer] Phone: Troponin, High Sensitivity 17 ng/L High 0 - 14 ng/L [employer] Phone: Comment on above: High Sensitivity Troponin values cannot be compared with other Troponin methodologies. Patients with high levels of Biotin oral intake (i.e >5mg/day) may have falsely decreased Troponin levels. Samples collected within 8 hours of biotin intake may require additional information for diagnosis. Urinalysis with [employer] n 04-17-2020 Amorphous, UA NOT REPORTED None [employer] Work Phone: Bacteria, UA TRACE Abnormal None [employer] Phone: Bilirubin Urine Negative NEGATIVE [employer] Work Phone: Casts UA NOT REPORTED /LPF [employer] Phone: Color, UA YELLOW YELLOW [employer] Phone: Crystals, UA NOT REPORTED None /HPF [employer] [facility] Work Phone: Epithelial Cells UA 0 TO 2 [employer] Work Phone: Glucose, Ur Negative NEGATIVE [employer] Phone: Interpretation and review of laboratory results Abnormal [facility] [employer] Work Phone: Ketones Ql (U) Negative NEGATIVE [facility] Work Phone: Leukocyte esterase Test strip Ql (U) Negative NEGATIVE [facility] [employer] Work Phone: Mucus, UA TRACE Abnormal None [facility] [employer] Work Phone: Nitrite, Urine Negative NEGATIVE [facility] Work Phone: Other Observations UA NOT REPORTED NOT REQ. M [facility] [employer] Work Phone: pH, UA 6.[address] [facility] [employer] Work Phone: Protein (U) [Mass/Vol] Negative NEGATIVE [facility] Work Phone: RBC (U) [#/Vol] None [facility] Work Phone: Renal Epithelial, UA NOT REPORTED 0 /HPF [facility] [employer] Work Phone: Specific [place], UA <1.005 [facility] [employer] Work Phone: Trichomonas, UA NOT REPORTED None [facility] [employer] Work Phone: Turbidity UA CLEAR CLEAR [facility] [employer] Work Phone: Urinalysis Comments NOT REPORTED [facility] [employer] Work Phone: Urine Hgb Negative NEGATIVE [facility] [employer] Work Phone: Urobilinogen, Urine Normal Normal [facility] [employer] Work Phone: WBC, UA None [facility] [employer] Work Phone: Yeast, UA NOT REPORTED None [facility] [employer] Work Phone: - [facility] [employer] Work Phone: Urine Drug Screenon 04-18-19 21 Amphetamine Screen, Ur Negative NEGATIVE [facility] [employer] Work Phone: Barbiturate Screen, Ur Negative NEGATIVE [facility] Work Phone: Benzodiazepine Screen, Urine Negative NEGATIVE [facility] Work Phone: Buprenorphine Urine Negative NEGATIVE [facility] Work Phone: Cannabinoid Scrn, Ur Negative NEGATIVE [facility] Work Phone: Cocaine Metabolite, Urine Negative NEGATIVE [facility] Work Phone: MDMA, Urine NOT REPORTED NEGATIVE [facility] Work Phone: Methadone Screen, Urine Negative NEGATIVE [facility] Work Phone: Methamphetamine, Urine Negative NEGATIVE [facility] Work Phone: Opiates, Urine Negative NEGATIVE [facility] Work Phone: Oxycodone Screen, Ur Negative NEGATIVE [facility] Work Phone: Phencyclidine, Urine Negative NEGATIVE [facility] Work Phone: Propoxyphene, Urine Negative NEGATIVE [facility] Work Phone: Test Information NOT REPORTED [facility] Work Phone: Tricyclic Antidepressants, Urine Negative NEGATIVE [facility] Work Phone: Comment on above: Drug screen results are to be used for medical purposes only. All positive results are unconfirmed. Testing for employment or legal uses should be sent to a reference laboratory for confirmation. Vital Signs Date Time Vital Sign Value Performing Clinician Faci lity 08-18-2024 05:02-0400 Diastolic blood pressure 50 mm[Hg] Shabnam Baxter MD Work Phone: [facility] [employer] 08-18-2024 05:02-0400 Heart rate 60 /min Shabnam Baxter MD Work Phone: [facility] [employer] 08-18-2024 05:02-0400 Respiratory rate 16 /min Shabnam Baxter MD Work Phone: [facility] [employer] 08-18-2024 05:02-0400 SaO2% (BldA) [Mass fraction] 98 % Shabnam Baxter MD Work Phone: [facility] [employer] 08-18-2024 05:02-0400 Systolic blood pressure 154 mm[Hg] Shabnam Baxter MD Work Phone: [facility] [employer] 08-18-2024 01:05-0400 Body mass index (BMI) [Ratio] 32.61 kg/m2 Shabnam Baxter MD Work Phone: [facility] [employer] 08-18-2024 01:05-0400 Body temperature 97.9 [degF] Shabnam Baxter MD Work Phone: [facility] [employer] 08-18-2024 01:05-0400 Body weight 86.18 kg Shabnam Baxter MD Work Phone: [facility] [employer] 07-14-2024 06:30-0400 Body temperature 97.39 [degF] Levi Dorsey MD Work Phone: [facility] [employer] 07-14-2024 06:30-0400 Diastolic blood pressure 55 mm[Hg] Levi Dorsey MD Work Phone: [facility] [employer] 07-14-2024 06:30-0400 Heart rate 64 /min Levi Dorsey MD Work Phone: [facility] [employer] 07-14-2024 06:30-0400 Respiratory rate 18 /min Levi Dorsey MD Work Phone: [facility] [employer] 07-14-2024 06:30-0400 SaO2% (BldA) [Mass fraction] 96 % Levi Dorsey MD Work Phone: [facility] [employer] 07-14-2024 06:30-0400 Systolic blood pressure 151 mm[Hg] Levi Dorsey MD Work Phone: [facility] [employer] 07-14-2024 04:10-0400 Body mass index (BMI) [Ratio] 31.5 kg/m2 Levi Dorsey MD Work Phone: [facility] [employer] 07-14-2024 04:10-0400 Body weight 85.87 kg Levi Dorsey MD Work Phone: [facility] [employer] 07-12-2024 07:56-0400 Body height 165.1 cm Levi Dorsey MD Work Phone: [facility] [employer] 03-26-2024 18:12-0500 Diastolic blood pressure 71 mm[Hg] Shabnam Baxter MD Work Phone: [facility] [employer] 03-26-2024 18:12-0500 Heart rate 70 /min Shabnam Baxter MD Work Phone: [facility] [employer] 03-26-2024 18:12-0500 Respiratory rate 14 /min Shabnam Baxter MD Work Phone: [facility] [employer] 03-26-2024 18:12-0500 SaO2% (BldA) [Mass fraction] 99 % Shabnam Baxter MD Work Phone: [facility] [employer] 03-26-2024 18:12-0500 Systolic blood pressure 183 mm[Hg] Shabnam Baxter MD Work Phone: [facility] [employer] 03-26-2024 15:54-0500 Body temperature 97.39 [degF] Shabnam Baxter MD Work Phone: [facility] [employer] 01-21-2024 14:44-0500 Body temperature 97.5 [degF] Shabnam Baxter MD Work Phone: [facility] [employer] 01-21-2024 14:44-0500 Diastolic blood pressure 63 mm[Hg] Shabnam Baxter MD Work Phone: [facility] [employer] 01-21-2024 14:44-0500 Heart rate 79 /min Shabnam Baxter MD Work Phone: [facility] [employer] 01-21-2024 14:44-0500 Respiratory rate 16 /min Shabnam Baxter MD Work Phone: [facility] [employer] 01-21-2024 14:44-0500 SaO2% (BldA) [Mass fraction] 99 % Shabnam Baxter MD Work Phone: [facility] [email or web address] 01-21-2024 14:44-0500 Systolic blood pressure 148 mm[Hg] Shabnam Baxter [facility] [employer] 10-21-2021 19:45-0400 Diastolic blood pressure 62 mm[Hg] Eliecer Burris MD [facility] [employer] 10-21-2021 19:45-0400 Heart rate 56 /min Eliecer Burris [facility] [employer] 10-21-2021 19:45-0400 Respiratory rate 16 /min Eliecer Burris MD [facility] [employer] 10-21-2021 19:45-0400 SaO2% (BldA) [Mass fraction] 98 % Eliecer Burris MD [facility] [employer] 10-21-2021 19:45-0400 Systolic blood pressure 176 mm[Hg] Eliecer Burris MD [facility] [employer] 10-21-2021 17:49-0400 Body mass index (BMI) [Ratio] 27.46 kg/m2 Eliecer Burris MD [facility] [employer] 10-21-2021 17:49-0400 Body weight 74.84 kg Eliecer Burris MD [facility] [employer] 10-05-2021 16:12-0400 Diastolic blood pressure 58 mm[Hg] Eliecer Burris MD [facility] [employer] 10-05-2021 16:12-0400 Heart rate 50 /min Eliecer Burris MD [facility] [employer] 10-05-2021 16:12-0400 Respiratory rate 11 /min Eliecer Burris MD [facility] [employer] 10-05-2021 16:12-0400 SaO2% (BldA) [Mass fraction] 100 % [facility]iecer Burris [facility] 10-05-2021 16:12-0400 Systolic blood pressure 145 mm[Hg] Eliecer Burris [facility] 10-05-2021 14:16-0400 Body height 165.1 cm Eliecer Burris MD [facility] [employer] 10-05-2021 14:16-0400 Body mass index (BMI) [Ratio] 24.96 kg/m2 Eliecer Burris MD [facility] 10-05-2021 14:16-0400 Body temperature 97.5 [degF] Eliecer Burris MD [facility] 10-05-2021 14:16-0400 Body weight 68.04 kg Eliecer Burris MD [facility] [employer] 09-04-2020 13:00-0400 Body temperature 97.7 [degF] Vernon Patino MD Work Phone: [employer] Work Phone: 09-04-2020 13:00-0400 Diastolic blood pressure 49 mm[Hg] Vernon Patino MD Work Phone: [employer] Work Phone: 09-04-2020 13:00-0400 Heart rate 59 /min Vernon Patino MD Work Phone: [employer] Work Phone: 09-04-2020 13:00-0400 Respiratory rate 16 /min Vernon Patino MD Work Phone: [employer] Work Phone: 09-04-2020 13:00-0400 SaO2% (BldA) [Mass fraction] 98 % Vernon Patino MD Work Phone: [employer] Work Phone: 09-04-2020 13:00-0400 Systolic blood pressure 129 mm[Hg] Vernon Patino MD Work Phone: [employer] Work Phone: 09-03-2020 11:30-0400 Body height 165.1 cm Vernon Patino MD Work Phone: [employer] Work Phone: 09-02-2020 13:45-0400 Body mass index (BMI) [Ratio] 26.96 kg/m2 Vernon Patino MD Work Phone: [employer] Work Phone: 09-02-2020 13:45-0400 Body weight 73.48 kg Vernon Patino MD Work Phone: [employer] Work Phone: 09-02-2020 13:15-0400 Diastolic blood pressure 68 mm[Hg] Acosta Mendoza MD Work Phone: [employer] Work Phone: 09-02-2020 13:15-0400 Heart rate 84 /min Acosta Mendoza MD Work Phone: [employer] Work Phone: 09-02-2020 13:15-0400 Respiratory rate 14 /min Acosta Mendoza MD Work Phone: [employer] Work Phone: 09-02-2020 13:15-0400 SaO2% (BldA) [Mass fraction] 95 % Acosta Mendoza MD Work Phone: [employer] Work Phone: 09-02-2020 13:15-0400 Systolic blood pressure 141 mm[Hg] Acosta Mendoza MD Work Phone: [employer] Work Phone: 09-02-2020 07:49-0400 Body height 165.1 cm Acosta Mendoza MD Work Phone: [employer] Work Phone: 09-02-2020 07:28-0400 Body mass index (BMI) [Ratio] 25.63 kg/m2 Acosta Mendoza MD Work Phone: [employer] Work Phone: 09-02-2020 07:28-0400 Body weight 69.85 kg Acosta Mendoza MD Work Phone: [employer] Work Phone: 09-02-2020 07:07-0400 Body temperature 97.59 [degF] Acosta Mendoza MD Work Phone: [employer] Work Phone: 06-02-2020 17:16-0400 Diastolic blood pressure 62 mm[Hg] Law Andes DO Work Phone: [employer] Work Phone: 06-02-2020 17:16-0400 Heart rate 66 /min Law Andes DO Work Phone: [employer] Work Phone: 06-02-2020 17:16-0400 SaO2% (BldA) [Mass fraction] 96 % Law Andes DO Work Phone: [place] Work Phone: 06-02-2020 17:16-0400 Systolic blood pressure 139 mm[Hg] Law Andes DO Work Phone: [place] Work Phone: 06-02-2020 14:07-0400 Body mass index (BMI) [Ratio] 28.32 kg/m2 Law Andes DO Work Phone: [place] Work Phone: 06-02-2020 14:07-0400 Body temperature 98.29 [degF] Law Andes DO Work Phone: [place] Work Phone: 06-02-2020 14:07-0400 Body weight 74.84 kg Law Andes DO Work Phone: [place] Work Phone: 06-02-2020 14:07-0400 Respiratory rate 14 /min Lwa Andes DO Work Phone: [place] Work Phone: 05-08-2020 21:30-0400 BP Diastolic 72 mm[Hg] Patrick [employer] Work Phone: 05-08-2020 21:30-0400 BP Systolic 166 mm[Hg] Patrick Gregoriou [place] Work Phone: 05-08-2020 21:30-0400 Pulse Oximetry 100 % Patrick Crism[facility] Work Phone: 05-08-2020 18:16-0400 Pulse (Heart Rate) 72 /min Patrick Pandya [facility] Work Phone: 05-08-2020 18:16-0400 Respiratory Rate 18 /min [facility]: 05-08-2020 18:14-0400 Body Temperature 96.3 [degF] Patrick Pandya [facility] Work Phone: 04-19-2020 11:30-0500 BP Diastolic 57 mm[Hg] Dwight Duffy [facility] Work Phone: 04-19-2020 11:30-0500 BP Systolic 125 mm[Hg] Dwight Duffy [facility] Work Phone: 04-19-2020 11:30-0500 Pulse (Heart Rate) 68 /min Dwight Villalba [facility] Work Phone: 04-19-2020 11:30-0500 Respiratory Rate 16 /min Dwight Villalba [facility] Work Phone: 04-19-2020 10:03-0500 Pulse Oximetry 96 % Dwight Duffy [facility] Work Phone: 04-19-2020 07:46-0500 BMI (Body Mass Index) 27.12 kg/m2 Dwight Duffy [facility] Work Phone: 04-19-2020 07:46-0500 Body Temperature 97.2 [degF] Dwight Villalba [facility] Work Phone: 04-19-2020 07:46-0500 Body weight 71.67 kg Dwight Duffy [facility] Work Phone: 04-19-2020 07:46-0500 Height 162.6 cm Dwight Duffy [facility] Work Phone: Encounters Encounter Date Encounter Type Care Provider Facility Start: 09-18-2024 End: 09-18-2024 hari Sparrow MD Facility: [facility] Start: 08-18-2024 End: 08-18-2024 Emergency department patient visit Shabnam Baxter MD Work Phone: [facility] Emergency Department Comment on above: General weakness (Pr imary Dx); Neck strain, initial encounter Start: 07-26-2024 End: 07-28-2024 ambulatory [facility] Start: 07-26-2024 End: 07-28-2024 Subsequent hospital visit by physician Florencia Kraus Dr Room 2 [facility] Comment on above: Lower extremity mehdi a; Lightheaded; Dizziness; History of TIA (transient ischemic attack); Cerebral arterial aneurysm; Essential hypertension; Mixed hyperlipidemia; TIA (transient ischemic attack); Complicated UTI (urinary tract infection) Thoracic spondylosis without myelopathy Start: 07-11-2024 End: 07-14-2024 Evaluation and management of inpatient Levi Dorsey MD Work Phone: [facility] MED SURG Comment on above: Transient alteration of awareness (Primary Dx); Right ear pain; Complicated UTI (urinary tract infection); History of TIA (transient ischemic attack) Start: 05-29-2024 End: 05-29-2024 hari Sparrow MD Facility: [facility] Start: 05-15-2024 End: 05-15-2024 ambulatory [facility] Start: 05-15-2024 End: 05-15-2024 Subsequent hospital visit by physician Molina Ramos DO Work Phone: [facility] Start: 05-15-2024 End: 05-15-2024 ambulatory Tahir Sparrow MD Facility: [facility] Start: 04-17-2024 End: 04-17-2024 ambulatory Tahir Sparrow MD Facility: [facility] Start: 03-26-2024 End: 03-26-2024 Emergency department patient visit Shabnam Baxter MD Work Phone: [facility] Emergency Department Comment on above: Altered mental statu s, unspecified altered mental status type (Primary Dx); Abnormal CT scan; Urinary tract infection without hematuria, site unspecified Start: 03-20-2024 End: 03-20-2024 ambulatory [facility] Start: 02-16-2024 End: 02-18-2024 [facility] Start: 02-16-2024 End: 02-18-2024 Subsequent hospital visit by physician [facility] Scan Room [facility] Scan Comment on above: Somatic dysfunction of lumbar region; Lumbar radiculopathy Start: 01-21-2024 End: 01-21-2024 Emergency department patient visit Shabnam Baxter MD Work Phone: [facility] Emergency Department Comment on above: Strain of lumbar reg ion, initial encounter (Primary Dx) Start: 12-24-2023 End: 12-24-2023 ambulatory [facility] Start: 12-24-2023 End: 12-24-2023 Subsequent hospital visit by physician Quincy Kumar PTA [facility] Physical Therapy Comment on above: Arrived Start: 12-20-2023 End: 12-20-2023 ambulatory [facility] Start: 12-20-2023 End: 12-20-2023 Subsequent hospital visit by physician Moraima Dela Cruz PTA [facility] Physical Therapy Comment on above: Arrived Start: 12-17-2023 End: 12-17-2023 ambulatory [facility] Start: 12-17-2023 End: 12-17-2023 Subsequent hospital visit by physician Dario Ruiz PT [facility] Physical Therapy Comment on above: Arrived Start: 12-13-2023 End: 12-13-2023 ambulatory [facility]OLINA [facility] Start: 12-13-2023 End: 12-13-2023 Subsequent hospital visit by physician Moraima Dela Cruz PTA [facility] Physical Therapy Comment on above: Arrived Start: 12-10-2023 End: 12-10-2023 ambulatory MOLINA [facility] Start: 12-10-2023 End: 12-10-2023 Subsequent hospital visit by physician Moraima Dela Cruz PTA [facility] Physical Therapy Comment on above: Arrived Start: 12-06-2023 End: 12-06-2023 ambulatory MOLINA [facility] Start: 12-06-2023 End: 12-06-2023 Subsequent hospital visit by physician Quincy Kumar PTA [facility] Physical Therapy Comment on above: Arrived Start: 12-03-2023 End: 12-03-2023 ambulatory MOLINA [facility] Start: 12-03-2023 End: 12-03-2023 Subsequent hospital visit by physician Moraima Dela Cruz PTA [facility] Physical Therapy Comment on above: Arrived Start: 11-29-2023 End: 11-29-2023 ambulatory MOLINA [facility] Start: 11-29-2023 End: 11-29-2023 Subsequent hospital visit by physician Moraima Dela Cruz PTA [facility] Physical Therapy Comment on above: Arrived Start: 11-26-2023 End: 11-26-2023 ambulatory MOLINA [facility] Start: 11-26-2023 End: 11-26-2023 Subsequent hospital visit by physician Moraima Dela Cruz PTA [facility] Physical Therapy Comment on above: Arrived Start: 11-24-2023 End: 11-24-2023 ambulatory MOLINA [facility] Start: 11-24-2023 End: 11-24-2023 Subsequent hospital visit by physician Moraima Dela Cruz PTA [facility] Physical Therapy Comment on above: Arrived Start: 11-22-2023 End: 11-22-2023 ambulatory MOLINA [facility]al[facility] Start: 11-19-2023 End: 11-19-2023 ambulatory MOLINA [facility] Start: 11-17-2023 End: 11-17-2023 ambulatory MOLINA [facility]alba [facility] Start: 11-15-2023 End: 11-15-2023 ambulatory MOLINA [facility]alba [facility] Start: 11-12-2023 End: 11-12-2023 ambulatory [facility] Start: 11-12-2023 End: 11-12-2023 Subsequent hospital visit by physician Moraima Dela Cruz PTA [facility] Physical Therapy Comment on above: Arrived Start: 11-10-2023 End: 11-10-2023 ambulatory [facility] Start: 11-08-2023 End: 11-08-2023 ambulatory [facility] Start: 11-08-2023 End: 11-08-2023 Subsequent hospital visit by physician Moraima Dela Cruz PTA [facility] Physical Therapy Comment on above: Arrived Start: 2023 End: 2023 ambulatory [facility] Start: 2023 End: 2023 Subsequent hospital visit by physician Moraima Dela Cruz PTA [facility] Physical Therapy Comment on above: Arrived Start: 11-04-2023 End: 11-04-2023 ambulatory [facility] Start: 11-01-2023 End: 11-01-2023 ambulatory [facility] Start: 10-22-2023 End: 10-22-2023 ambulatory [facility] Start: 05-06-2023 End: 05-06-2023 Subsequent hospital visit by physician Quincy Kumar PTA [facility] Physical Therapy Comment on above: Arrived Start: 10-21-2021 End: 10-21-2021 Emergency department patient visit Eliecer Burris MD [facility] ED Comment on above: Elevated blood press ure reading (Primary Dx) Start: 10-15-2021 End: 10-17-2021 Subsequent hospital visit by physician Florencia Xr Dr Room 4 [facility] Comment on above: Pain; Swelling Start: 10-10-2021 End: 10-12-2021 Subsequent hospital visit by physician [facility] Mammography [facility] Mammography Comment on above: Breast cancer screen ing by mammogram Start: 10-05-2021 End: 10-05-2021 Emergency department patient visit Eliecer Burris MD [facility] ED Comment on above: Dysarthria (Primary Dx); Acute cystitis without hematuria Start: 07-22-2021 End: 07-22-2021 Subsequent hospital visit by physician Molina Ramos DO Work Phone: [facility] Start: 03-03-2021 End: 03-05-2021 Subsequent hospital visit by physician [facility] Vascular Imaging Room [facility] Comment on above: Left leg swelling Start: 01-21-2021 End: 01-21-2021 Subsequent hospital visit by physician Quincy Kumar PTA [facility] Physical Therapy Comment on above: Arrived Start: 01-13-2021 End: 01-13-2021 Subsequent hospital visit by physician Ford Sarah [facility] Physical Therapy Comment on above: Arrived Start: 01-06-2021 End: 01-06-2021 Subsequent hospital visit by physician Darlin Ferrer PT [facility] Physical Therapy Comment on above: Arrived Start: 12-24-2020 End: 12-24-2020 Subsequent hospital visit by physician Delores Palma PT [facility] Physical Therapy Comment on above: Arrived Start: 12-23-2020 End: 12-23-2020 Subsequent hospital visit by physician Quincy Kumar PTA [facility] Physical Therapy Comment on above: Arrived Start: 12-17-2020 End: 12-17-2020 Subsequent hospital visit by physician Darlin Ferrer PT [facility] Physical Therapy Comment on above: Arrived Start: 12-10-2020 End: 12-10-2020 Subsequent hospital visit by physician Ford Sarah [facility] Physical Therapy Comment on above: Arrived Start: 09-02-2020 End: 09-04-2020 Evaluation and management of inpatient MOLINA Goldy RICH[facility] Start: 09-02-2020 End: 09-04-2020 Evaluation and management of inpatient Vernon Patino MD Work Phone: [facility] 5B NSICU Comment on above: Altered mental statu s, unspecified altered mental status type (Primary Dx) Start: 09-02-2020 End: 09-05-2020 ambulatory KRISTINA O CORTEZ [facility] Start: 09-02-2020 End: 09-04-2020 Subsequent hospital visit by physician Acosta Mendoza MD Work Phone: [facility] Special Procedures Comment on above: Cerebral aneurysm; TGA (transient global amnesia) Start: 06-02-2020 End: 06-02-2020 Emergency department patient visit Law Stratton DO Work Phone: [facility] ED Comment on above: Nausea vomiting and diarrhea (Primary Dx); Other complicated headache syndrome; Dehydration Start: 05-08-2020 End: 05-08-2020 Emergency department patient visit Patrick Pandya Work Phone: [facility] ED Comment on above: Essential hypertensi on (Primary Dx) Start: 04-17-2020 End: 04-19-2020 Evaluation and management of inpatient Dwight Duffy [facility] Comment on above: TIA (transient ische shailesh attack) (Primary Dx) Procedures Date Procedure Procedure Detail Performing Clinician Start: 08-18-2024 Assay of troponin quantitative Shabnam Baxter MD Work Phone: Start: 08-18-2024 Urinalysis microscopic only Shabnam Baxter MD Work Phone: Start: 08-18-2024 Urnls dip stick/tabl et rgnt auto w/o microscopy Shabnam Baxter MD Work Phone: Start: 08-18-2024 End: 08-18-2024 Ct head/brain w/o contrast material Shabnam Baxter MD Work Phone: Start: 08-18-2024 Comprehensive metabo lic panel Shabnam Baxter MD Work Phone: Start: 08-18-2024 GLUCOSE, WHOLE BLOOD Me boogie Baxter MD Work Phone: Start: 07-26-2024 Urinalysis microscopic only Victor M Ny MD Work Phone: Start: 07-26-2024 Urnls dip stick/tabl et rgnt auto w/o microscopy Victor M Ny MD Work Phone: Start: 07-26-2024 End: 07-26-2024 Comprehensive metabolic panel Victor M Ny MD Work Phone: Start: 07-14-2024 BASIC METABOLIC PANE L W/ REFLEX TO MG FOR LOW K Marnie L Veronica 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 Work Phone: Start: 07-14-2024 Blood count complete auto&auto difrntl wbc Marnie Martin APRN - ARCHITECTURAL DESIGN PROFESSOR Work Phone: Start: 07-14-2024 Rhythm ecg 1-3 leads w/interpretation & report Unknown Provider Result Start: 07-13-2024 BASIC METABOLIC PANE L W/ REFLEX TO MG FOR LOW K Marnie L Veronica 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 Work Phone: Start: 07-13-2024 Blood count complete auto&auto difrntl wbc Marnie Goldy Martin 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 Work Phone: Start: 07-12-2024 BASIC METABOLIC PANE L W/ REFLEX TO MG FOR LOW K Marnie L Veronica MORINN - ARCHITECTURAL DESIGN PROFESSOR Work Phone: Start: 07-12-2024 Blood count complete auto&auto difrntl wbc Marnie Martin APRN - KERRY Work Phone: Start: 07-11-2024 End: 07-11-2024 Comprehensive metabolic panel Levi Dorsey MD Work Phone: Start: 07-11-2024 Ct head/brain w/o co ntrast material Levi Dorsey MD Work Phone: Start: 07-11-2024 Radiologic exam ches t 2 views Levi Dorsey MD Work Phone: Start: 07-11-2024 End: 07-11-2024 Culture bacterial quanttative colony count urine Marnie Martin APRN - KERRY Work Phone: Start: 07-11-2024 Urnls dip stick/tabl et rgnt auto w/o microscopy Levi Dorsey MD Work Phone: Start: 07-11-2024 CULTURE, BLOOD 1 Irving Dorsey MD Work Phone: Start: 07-11-2024 Ecg routine ecg w/le ast 12 lds i&r only Levi Dorsey MD Work Phone: Start: 05-15-2024 Electrolyte panel Charl bhumika Ramos DO Work Phone: Start: 05-15-2024 Lipid panel Molina Ramos DO Work Phone: Start: 03-26-2024 Urinalysis [...] Burris MD Start: 07-22-2021 Electrolyte panel Charl es L Valone DO Work Phone: Start: 03-03-2021 Dup-scan xtr [...] Phone: Start: 09-02-2020 Hemoglobin glycosylated a1c Mikael Ruvalcabayris DO Work Phone: Start: 09-02-2020 Lipid panel Suraj veliz MD Work Phone: Start: 09-02-2020 STROKE PANEL Mikael Ruvalcabayris DO Work Phone: Start: 09-02-2020 Glucose blood [...] REFLEX TO MG FOR LOW K Law Stratton DO Work Phone: Start: 06-02-2020 Hepatic function panel Law Stratton DO Work Phone: Start: 05-08-2020 Assay of troponin quantitative Luis Enriquecorine Cuellar Work Phone: Start: 05-08-2020 Assay of troponin quantitative Luis Enriquecorine Cuellar Work Phone: Start: 05-08-2020 Blood count complete auto&auto difrntl wbc Luis Enriquecorine Cuellar Work Phone: Start: 05-08-2020 Comprehensive metabo lic panel Luis Enrique [employer] Work Phone: Start: 04-18-2020 Echocardiography Ali F Zurdo Marx Work Phone: Start: 04-18-2020 BASIC METABOLIC PANE L W/ REFLEX TO MG FOR LOW K Marcelino Clifford Work Phone: Start: 04-18-2020 Blood count complete automated Marcelino Clifford Work Phone: Start: 04-18-2020 Hemoglobin glycosylated a1c Marcelino Clifford Work Phone: Start: 04-18-2020 Lipid panel Saeed Clifford Work Phone: Start: 04-17-2020 Speech and language therapy regime Marcelino Clifford Work Phone: Start: 04-17-2020 GLUCOSE, WHOLE BLOOD Mi patience Duffy Start: 04-17-2020 Ct angiography neck w/contrast/noncontrast Dwight Duffy Start: 04-17-2020 Mri brain brain stem w/o contrast material Dwight Duffy Start: 04-17-2020 Gluc bld gluc mntr d ev cleared fda spec home use Dwight Duffy Start: 04-17-2020 GLUCOSE, WHOLE BLOOD Mi patiecne Duffy Start: 04-17-2020 Drug screen class list a Dwight Duffy Start: 04-17-2020 Urnls dip stick/tabl et reagent auto microscopy Dwight Winslow Tati Start: 04-17-2020 Ecg routine ecg w/le ast 12 lds i&r only Dwight Winslow Tati Start: 04-17-2020 EKG REPORT Hpf Scanni ng Start: 04-17-2020 Ct head/brain w/o co ntrast material Dwight Winslow Tati Start: 04-17-2020 Assay of troponin quantitative Dwight Winslow Tati Start: 04-17-2020 Blood count complete auto&auto difrntl wbc Dwight Winslow Tati Start: 04-17-2020 Comprehensive metabo lic panel Dwight Golyd Duffy Start: 04-17-2020 Prothrombin time Michmaria esther Winslow Tati Start: 04-17-2020 Thromboplastin time partial plasma/whole blood Dwight Winslow Tati Plan of Treatment Date Care Activity Detail Author Start: 08-18-2025 GFR test (Diabetes, CKD 3-4, OR last GFR 15-59) GFR test (Diabetes, CKD 3-4, OR last GFR 15-59) [facility] Start: 07-26-2025 GFR test (Diabetes, CKD 3-4, OR last GFR 15-59) GFR test (Diabetes, CKD 3-4, OR last GFR 15-59) [facility] Start: 07-14-2025 GFR test (Diabetes, CKD 3-4, OR last GFR 15-59) GFR test (Diabetes, CKD 3-4, OR last GFR 15-59) [facility] Start: 05-15-2025 GFR test (Diabetes, CKD 3-4, OR last GFR 15-59) GFR test (Diabetes, CKD 3-4, OR last GFR 15-59) [facility] Start: 05-15-2025 [facility] Start: 03-26-2025 GFR test (Diabetes, CKD 3-4, OR last GFR 15-59) GFR test (Diabetes, CKD 3-4, OR last GFR 15-59) [facility] Start: 01-24-2025 End: 01-24-2025 Patient encounter procedure 01/24/2025 10:20 AM EST Office Visit [facility] [address] [place] [address] Alissa Marx MD [address] [place] [address] 6 month follow up [facility] Comment on above: 6 month follow up Start: 10-21-2024 GFR test (Diabetes, CKD 3-4, OR last GFR 15-59) GFR test (Diabetes, CKD 3-4, OR last GFR 15-59) [facility] Start: 10-21-2024 Lipid panel Lipids [facility] Start: 09-08-2024 Influenza vaccination [facility] Start: 08-28-2024 End: 08-28-2024 Patient encounter procedure 08/28/2024 8:40 AM EDT Office Visit [facility] NEUROLOG[facility] [address] [place] [address] Lorenzo Vang MD [address] [place] [address] [address] [place] [address] History of TIA [facility] Comment on above: History of TIA Start: 07-28-2024 End: 07-14-2025 CBC W Auto Differential panel - Blood CBC with Auto Differential Lab Routine Complicated UTI (urinary tract infection) Expected: 07/28/2024, Expires: 07/14/2025 [facility] Comment on above: Expected: 07/28/2024, Expires: Start: 07-28-2024 End: 07-14-2025 Comprehensive metabolic 2000 panel - Serum or Plasma Comprehensive Metabolic Panel Lab Routine Complicated UTI (urinary tract infection) Expected: 07/28/2024, Expires: 07/14/2025 [facility] Comment on above: Expected: 07/28/2024, Expires: Start: 07-28-2024 End: 07-14-2025 Culture, Urine Culture, Urine Microbiology Routine Complicated UTI (urinary tract infection) Expected: 07/28/2024, Expires: 07/14/2025 [facility] Comment on above: Expected: 07/28/2024, Expires: Start: 07-28-2024 End: 07-14-2025 Urinalysis with Reflex to Culture Urinalysis with Reflex to Culture Lab Routine Complicated UTI (urinary tract infection) Expected: 07/28/2024, Expires: 07/14/2025 [facility] Comment on above: Expected: 07/28/2024, Expires: Start: 07-19-2024 End: 07-19-2024 Patient encounter procedure 07/19/2024 9:00 AM EDT Office Visit [address] [address] Apurva Vu, 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 [address] [place] [address] [place] [address] 6 month [facility] Comment on above: 6 month Start: 05-08-2024 End: 05-08-2024 Patient encounter procedure 05/08/2024 2:20 PM EDT Office Visit [address] [phone] Alissa Marx MD [address] [place] [address] [place] [address] 6 month [facility] Comment on above: 6 month Start: 05-07-2024 COVID-19 Vaccine ( season) COVID-19 Vaccine ( season) [facility] Start: 04-05-2024 Lipid panel Lipids [facility] Start: 03-09-2024 COVID-19 Vaccine ( season) COVID-19 Vaccine ( season) [facility] Start: 02-09-2024 Annual Wellness Visit (Medicare Advantage) Annual Wellness Visit (Medicare Advantage) [facility] Start: 12-24-2023 End: 12-24-2023 Patient encounter procedure 12/24/2023 1:00 PM EST Appointment [facility] Physical Therapy [address] [place], [place] [phone] Quincy Kumar PTA [facility] Start: 12-20-2023 End: 12-20-2023 Patient encounter procedure 12/20/2023 1:15 PM EST [facility]ment [facility] [address] [place], [place] [phone] Moraima Dela Cruz PTA [facility] Start: 12-17-2023 End: 12-17-2023 Patient encounter procedure 12/17/2023 1:00 PM EST Appointment [facility] Physical Therapy [address] [place], [place] [phone] Dario Ruiz, PT [facility] Physical Therapy Comment on above: [facility] Start: 12-13-2023 End: 12-13-2023 Patient encounter procedure 12/13/2023 1:15 PM EST Appointment [facility] Physical Therapy [address] [place], [place] [phone] Moraima Dela Cruz PTA [facility] Start: 12-10-2023 End: 12-10-2023 Patient encounter procedure 12/10/2023 1:30 PM EDT Appointment [facility] Physical Therapy [address] [place], [place] [phone] Moraima Dela Cruz PTA [facility] Start: 12-06-2023 End: 12-06-2023 Patient encounter procedure 12/06/2023 1:15 PM EDT Appointment [facility] [address] [place] [phone] Quincy Kumar PTA [facility] Start: 12-03-2023 End: 12-03-2023 Patient encounter procedure 12/03/2023 1:00 PM EDT Appointment [facility] [address] [place] [phone] Moraima Dela Cruz PTA [facility] Start: 11-29-2023 End: 11-29-2023 Patient encounter procedure 11/29/2023 2:00 PM EDT Appointment [facility] [address] [place] [phone] Moraima Dela Cruz PTA [facility] Start: 11-26-2023 End: 11-26-2023 Patient encounter procedure [facility] Physical Therapy Comment on above: [facility] Start: 11-24-2023 End: 11-24-2023 Patient encounter procedure 11/24/2023 1:15 PM EDT Appointment [facility] Physical Therapy [address] [place], [place] [phone] Moraima Dela Cruz PTA [facility] Physical Therapy Start: 11-22-2023 End: 11-22-2023 Patient encounter procedure 11/22/2023 1:15 PM EDT Appointment [facility] Physical Therapy [address] [place], [place] [phone] Moraima Dela Cruz PTA [facility] Physical Therapy Start: 11-19-2023 End: 11-19-2023 Patient encounter procedure 11/19/2023 1:00 PM EDT Appointment [facility] Physical Therapy [address] [place], [place] [phone] Moraima Dela Cruz PTA [facility] Physical Therapy Start: 11-17-2023 End: 11-17-2023 Patient encounter procedure 11/17/2023 1:00 PM EDT Appointment [facility] Physical Therapy [address] [place], [place] [phone] Moraima Dela Cruz PTA [facility] Physical Therapy Start: 11-15-2023 End: 11-15-2023 Patient encounter procedure 11/15/2023 1:15 PM EDT Appointment [facility] Physical Therapy [address] [place] [address] [id number] Moraima Dela Cruz PTA [facility] Physical Therapy Start: 11-12-2023 End: 11-12-2023 Patient encounter procedure 11/12/2023 1:00 PM EDT Appointment [facility] Physical [facility] [address] [place] [address] [phone] Moraima Dela Cruz TENANT COORDINATOR [facility] Physical Therapy Start: 11-10-2023 End: 11-10-2023 Patient encounter procedure 11/10/2023 1:15 PM EDT Appointment [facility] Physical Therapy [address] [place] [address] [phone] Moraima Dela Cruz TENANT COORDINATOR [facility] Physical Therapy Start: 11-08-2023 End: 11-08-2023 Patient encounter procedure 11/08/2023 1:15 PM EDT Appointment [facility] Physical Therapy [address] [place] [address] [phone] Moraima Dela Cruz PTA [facility] Physical Therapy Start: 10-25-2023 End: 10-25-2023 Patient encounter procedure 10/25/2023 2:20 PM EDT Office Visit [facility] Part [address] [place] [address] Alissa Marx MD [address] [place] [address] [place] [address] 6 month [facility] Comment on above: 6 month Start: 10-10-2023 COVID-19 Vaccine ( season) COVID-19 Vaccine () [facility] Start: 09-09-2023 Influenza vaccination Flu vaccine (#1) [facility] Start: 06-09-2023 End: 06-09-2023 Patient encounter procedure 06/09/2023 6:30 PM EDT Appointment [facility] [address] [place] [address] [phone] self referral, julián w pt [facility] Comment on above: self referral, julián w pt Start: 06-03-2023 End: 06-03-2023 Patient encounter procedure 06/03/2023 12:30 PM EDT Appointment [facility] Physical Therapy [address] [place] [address] [phone] Jennifer Carrillo, PT MEDICARE [facility] Physical Therapy Comment on above: MEDICARE Start: 05-27-2023 End: 05-27-2023 Patient encounter procedure 05/27/2023 12:30 PM EDT Appointment [facility] Physical Therapy [address] [place] [address] [phone] Quincy Kumar PTA [facility] Physical Therapy Start: 05-24-2023 End: 05-24-2023 Patient encounter procedure 05/24/2023 12:30 PM EDT Appointment [facility] Physical Therapy [address] [place] [address] [phone] Quincy Kumar, TENANT COORDINATOR [facility] Physical Therapy Start: 05-21-2023 End: 05-21-2023 Patient encounter procedure 05/21/2023 1:00 PM EDT Appointment [facility] Physical Therapy [address] [place] [address], [place] [address] Quincy Kumar TENANT COORDINATOR [facility] Physical Therapy Start: 05-20-2023 End: 05-20-2023 Patient encounter procedure 05/20/2023 3:30 PM EDT Appointment [facility] Physical Therapy [address] [place] [address], [place] [address] Quincy Kumar TENANT COORDINATOR [facility] Physical Therapy Start: 05-14-2023 End: 05-14-2023 Patient encounter procedure 05/14/2023 2:15 PM EDT Appointment [facility] Physical Therapy [address] [place] [address], [place] [address] Jennifer Carrillo PT [facility] Physical Therapy Start: 05-13-2023 End: 05-13-2023 Patient encounter procedure 05/13/2023 3:30 PM EDT Appointment [facility] Physical Therapy [address] [place] [address], [place] [address] Quincy Kumar, TENANT COORDINATOR [facility] Physical Therapy Start: 01-04-2023 Annual Wellness Visit (Medicare) Annual Wellness Visit (Medicare) [facility] Start: 10-09-2022 COVID-19 Vaccine ( season) COVID-19 Vaccine ( season) [facility] Start: 09-10-2022 Shingles vaccine (3 of 3) Shingles vaccine (3 of 3) [facility] Start: 09-08-2022 Influenza vaccination Flu vaccine (#1) [facility] Start: 07-22-2022 Lipid panel Lipids [facility] Start: 01-05-2022 End: 01-05-2022 Patient encounter procedure 01/05/2022 Office Visit Neurology Lorenzo Vang MD [address] [place] [address] [place] [phone] [facility] Start: 10-10-2021 End: 10-10-2021 Patient encounter procedure 10/10/2021 Appointment Radiology [facility] Start: 10-09-2021 [facility] Start: 10-06-2021 End: 10-05-2022 Echo 2d w doppler w color w contrast Echo 2d w doppler w color w contrast Echocardiography Routine Dysarthria Expected: 10/06/2021, Expires: 10/05/2022 [facility] Work Phone: Comment on above: Expected: 10/06/2021, Expires: Start: 09-03-2021 Creatinine measurement Creatinine monitoring [employer] Phone: Start: 09-03-2021 Potassium monitoring Potassium monitoring [employer] Phone: Start: 09-02-2021 Lipid panel [facility] Start: 06-02-2021 Creatinine measurement Creatinine monitoring [employer] Phone: Start: 06-02-2021 Potassium monitoring Potassium monitoring [employer] Phone: Start: 05-08-2021 Creatinine measurement Creatinine monitoring [employer] Phone: Start: 05-08-2021 Potassium monitoring Potassium monitoring [employer] Phone: Start: 04-18-2021 Creatinine measurement Creatinine monitoring [employer] Phone: Start: 04-18-2021 Lipid panel Lipid screen [employer] Phone: Start: 04-18-2021 Potassium monitoring Potassium monitoring [employer] Phone: Start: 03-03-2021 End: 03-03-2021 Patient encounter procedure [facility] Start: 02-24-2021 COVID-19 Vaccine (2 - Pfizer series) COVID-19 Vaccine (2 - Pfizer series) [facility] Start: 02-04-2021 End: 02-04-2021 Patient encounter procedure [...] 12/31/2020 Appointment Physical Therapy Quincy Kumar PTA [facility] Start: 12-30-2020 End: 12-30-2020 Patient encounter procedure [facility] Start: 12-24-2020 End: 12-24-2020 Patient encounter procedure [facility] Physical Therapy Start: 12-23-2020 End: 12-23-2020 Patient encounter procedure 12/23/2020 Appointment Physical Therapy Quincy Kumar PTA [facility] Start: 12-17-2020 End: 12-17-2020 Patient encounter procedure 12/17/2020 Appointment Physical Therapy Darlin Ferrer PT [facility] Start: 12-09-2020 End: 12-09-2020 Patient encounter procedure 12/09/2020 Office Visit Neurology Kristina Lomax MD [address] [facility] [address] [place], [place] [phone] [facility] Start: 10-09-2020 Influenza vaccination [facility] Start: 10-04-2020 End: 10-04-2020 Patient encounter procedure 10/04/2020 Office Visit Neurology Ralf Christie MD [address] [facility] [place], [place] [id number] [facility] Start: 08-19-2020 End: 08-19-2020 Patient encounter procedure 08/19/2020 Office Visit Cardiology Alissa Marx MD [address] [place] [address] [facility] Start: 06-24-2020 End: 06-24-2020 Patient encounter procedure 06/24/2020 Office Visit Neurology Lorenzo Vang MD [address] [place] [address] [facility] Start: 06-10-2020 COVID-19 Vaccine (2 - Moderna 2-dose series) COVID-19 Vaccine (2 - Moderna 2-dose series) [facility] Work Phone: Start: 05-24-2020 End: 05-24-2020 Office Visit 05/24/2020 Office Visit Neurology Hudson Pittman MD [address] [facility] [address] [place], [place] [id number] [facility] Start: 05-13-2020 End: 05-13-2020 Office Visit 05/13/2020 Office Visit Cardiology Alissa Marx MD [address] [place] [address] [phone] [facility] Part [facility] Start: 05-06-2020 End: 05-06-2020 Office Visit 05/06/2020 Office Visit Cardiology Alissa Marx MD [address] [place] [address] [place] [address] [phone] [facility] Start: 04-18-2020 End: 04-18-2021 Half-Way Continuous Cardiac Event Monitor [facility] Continuous Cardiac Event Monitor Cardiac Services Routine TIA (transient ischemic attack) Expected: 04/18/2020, Expires: 04/18/2021 [employer] Phone: Comment on above: Expected: 04/18/2020, Expires: Start: 10-10-2019 Influenza vaccination [facility] Start: 07-31-2018 Annual Wellness Visit (AWV) Annual Wellness Visit (AWV) [facility] Start: 03-23-2017 Shingles Vaccine (2 of 3) Shingles Vaccine (2 of 3) [facility] Start: 2006 Pneumococcal 65+ years Vaccine (1 - PCV) Pneumococcal 65+ years Vaccine (1 - PCV) [facility] Start: 2006 Pneumococcal 65+ years Vaccine (1 of 1 - PPSV23) Pneumococcal 65+ years Vaccine (1 of 1 - PPSV23) [facility] Start: 2001 Respiratory Syncytial Virus (RSV) or age 60 yrs+ (1 - 1-dose 60+ series) Respiratory Syncytial Virus (RSV) or age 60 yrs+ (1 - 1-dose 60+ series) [facility] [employer] Start: 1960 DTaP/Tdap/Td vaccine (1 - Tdap) DTaP/Tdap/Td vaccine (1 - Tdap) [facility] Start: 1960 Pneumococcal 50+ years Vaccine (1 of 2 - PCV) Pneumococcal 50+ years Vaccine (1 of 2 - PCV) [facility] Start: 11-06-1959 Hepatitis C screening Hepatitis C screen [facility] Start: 11-06-1959 Urine screening for protein Diabetic Alb to Cr ratio (uACR) test [facility] Start: 1957 COVID-19 Vaccine (1) COVID-19 Vaccine (1) [facility] Work Phone: Start: 1953 COVID-19 Vaccine (1) COVID-19 Vaccine (1) [facility] Start: 1953 Depression Screen Depression Screen [facility] [employer] Start: 11-06-1947 Pneumococcal 65+ years Vaccine (1 of 2 - PCV) Pneumococcal 65+ years Vaccine (1 of 2 - PCV) [facility] [employer] Start: 1946 COVID-19 Vaccine (1) COVID-19 Vaccine (1) [facility] [employer] Start: 1941 Annual Wellness Visit (AWV) Annual Wellness Visit (AWV) [facility] Start: 1941 Hepatitis C screening Hepatitis C screen [facility] [employer] End: 07-16-2024 Basic Metabolic Panel w/ Reflex to MG Basic Metabolic Panel w/ Reflex to MG Lab Routine Daily for 5 Days starting 07/12/2024 until 07/16/2024, 3 completed [employer] Comment on above: Daily for 5 Days starting 07/12/2024 unt il 07/16/2024, 3 completed Blood Culture 1 Blood Culture 1 Microbiology STAT 07/11/2024 10:15 PM EDT [facility] [employer] End: 07-16-2024 CBC W Auto Differential panel - Blood CBC auto differential Lab Routine Daily for 5 Days starting 07/12/2024 until 07/16/2024, 3 completed [employer] Comment on above: Daily for 5 Days starting 07/12/2024 unt il 07/16/2024, [address] Head WO contrast CT Head W/O Contrast Imaging CODE STROKE 08/18/2024 2:21 AM EDT [employer] CTA Head vessels and Neck vessels W contrast IV CTA HEAD NECK W CONTRAST Imaging CODE STROKE 08/18/2024 2:16 AM EDT [employer] Culture, Blood 2 Culture, Blood 2 Microbiology STAT 07/11/2024 10:20 PM EDT [facility] [employer] End: 10-05-2021 Culture, Urine [employer] Work Phone: Comment on above: One Time for 1 Occurrences starting 09/09 until 10/05/2021 End: 03-26-2024 Culture, Urine [employer] Comment on above: Once for 1 Occurrences starting 03/26/19 until 03/26/2024 End: 07-26-2024 Culture, Urine [employer] Comment on above: 1 Occurrences starting 07/26/2024 until 07/26/2024 EKG 12 Lead EKG 12 Lead ECG Routine 10/05/2021 2:23 PM EDT [employer] Work Phone: EKG 12 Lead EKG 12 Lead ECG STAT 10/21/2021 5:01 PM EDT [employer] EKG 12 Lead EKG 12 Lead ECG STAT 03/26/2024 2:35 PM EST [employer] End: 07-22-2021 Hemoglobin A1c/Hemoglobin.total in Blood [employer] Work Phone: Comment on above: Once for 1 Occurrences starting 07/23/19 until 07/22/2021 Intermittent pulse oximetry Pulse Oximetry Spot Check Respiratory Care Routine As Needed until discontinued starting 09/02/2020 [employer] Phone: Comment on above: As Needed until discontinued starting End: 09-02-2020 IR ANGIOGRAM CAROTID CEREBRAL BILATERAL IR ANGIOGRAM CAROTID CEREBRAL BILATERAL Imaging Routine Cerebral aneurysm 1 Occurrences starting 09/02/2020 until 09/02/2020 [employer] Phone: Comment on above: 1 Occurrences starting 09/02/2020 until 09/02/2020 IR ANGIOGRAM CAROTID CEREBRAL BILATERAL IR ANGIOGRAM CAROTID CEREBRAL BILATERAL Imaging Routine Cerebral aneurysm 09/02/2020 9:42 AM EDT [employer] Phone: LAB SCANNED REPORT LAB SCANNED R EPORT Lab Ordered: 09/04/2020 [employer] Phone: Comment on above: Ordered: 09/04/2020 End: 07-22-2021 Lipid panel [facility] [employer] Phone: Comment on above: Once for 1 Occurrences starting 07/23/19 22 until 07/22/2021 End: 04-19-2020 Half-Way Continuous Cardia Event Monitor Half-Way Continuous Cardia Event Monitor Cardiac Services Routine One Time for 1 Occurrences starting 04/19/2020 until 04/19/2020 [employer] Phone: Comment on above: One Time for 1 Occurrences starting 04/08 until 04/19/2020 End: 10-10-2021 ALMA ESME DIGITAL SCREEN SELF REFERRAL W OR WO CAD BILATERAL [facility] [employer] Phone: Comment on above: 1 Occurrences starting 10/10/2021 until 10/10/2021 End: 09-02-2020 MRI LIMITED BRAIN MRI LIMITED BRAIN Imaging STAT Once for 1 Occurrences starting 09/02/2020 until 09/02/2020 [employer] Phone: Comment on above: Once for 1 Occurrences starting 09/03/19 21 until 09/02/2020 MRI LIMITED BRAIN MRI LIMITED BR AIN Imaging STAT 09/02/2020 11:34 AM EDT [employer] Phone: Oxygen therapy [[facility] Data Set] [employer] Phone: Comment on above: Daily until discontinued starting 2020 Daily until disconti nued starting 09/02/2020 End: 09-03-2020 PREVIOUS SPECIMEN PREVIOUS SPECIMEN Lab Routine Once for 1 Occurrences starting 09/03/2020 until 09/03/2020 [employer] Phone: Comment on above: Once for 1 Occurrences starting 09/04/19 21 until 09/03/2020 End: 09-02-2020 Speech and language therapy regime Speech Language Pathology ([employer]ING [employer]ILL [employer]UGGER) eval and treat [employer] Routine One Time for 1 Occurrences starting 09/02/2020 until 09/02/2020 [employer] Phone: Comment on above: One Time for 1 Occurrences starting 08/09 until 09/02/2020 End: 08-18-2024 Thyroxine (T4) free [Mass/volume] in Serum or Plasma T4, Free Lab Routine One Time for 1 Occurrences starting 08/18/2024 until 08/18/2024 [employer] Comment on above: One Time for 1 Occurrences starting 08/08 until 08/18/2024 Thyroxine (T4) free [Mass/volume] in Serum or Plasma T4, Free Lab STAT 08/18/2024 1:09 AM EDT [employer] End: 05-15-2024 Urinalysis [employer] Phone: Comment on above: Once for 1 Occurrences starting 05/16/19 until 05/15/2024 End: 04-19-2020 US Heart Transesophageal Echocardiogram transesophogeal Echocardiography STAT One Time for 1 Occurrences starting 04/19/2020 until 04/19/2020 [employer] Phone: Comment on above: One Time for 1 Occurrences starting 04/08 until 04/19/2020 End: 08-18-2024 XR Chest Single view XR CHEST 1 VIEW Imaging STAT Once for 1 Occurrences starting 08/18/2024 until 08/18/2024 [employer] Comment on above: Once for 1 Occurrences starting 08/19/19 until 08/18/2024 XR Chest Single view XR CHEST 1 VIEW Imaging STAT 08/18/2024 2:22 AM EDT [employer] End: 07-26-2024 XR Thoracic spine 2 Views [employer] Phone: Comment on above: 1 Occurrences starting 07/26/2024 until 07/26/2024 Immunizations Immunization Date Immunization Notes Care Provider Divine russell 11-26-2017 Influenza Vaccine, unspecified formulation Dwight Duffy [facility] 01-26-2017 zoster vaccine, live Dwight Snow [facility] [employer] Phone: Payers Date Payer Category Payer Medicare [id number] 2024 Medicare 2014 Private Health Insurance [facility] [id number] 2001 Medicare [id number] 2001 Medicare [id number] 1941 Unknown [id number] 2.16.8 40.1.804688.3.579.2.175 1941 Unknown [id number] 2.16.8 40.1.971485.3.579.2.175 1941 Unknown [id number] 2.16.8 40.1.176327.3.579.2.173 1941 Unknown [id number] 2.16.8 40.1.754057.3.579.2.173 1941 Unknown [id number] 2.16.8 40.1.193520.3.579.2.173 1941 Unknown [id number] 2.16.8 40.1.504411.3.579.2.173 1941 Unknown [id number] 2.16.8 40.1.942892.3.579.2.173 1941 Unknown [id number] 2.16.8 40.1.130340.3.579.2.173 1941 Unknown [id number] 2.16.8 40.1.106212.3.579.2.173 1941 Unknown [id number] 2.16.8 40.1.402332.3.579.2.173 1941 Unknown [id number] 2.16.8 40.1.578187.3.579.2.173 1941 Unknown [id number] 2.16.8 40.1.523978.3.579.2.173 1941 Unknown [id number] 2.16.8 40.1.662723.3.579.2.173 1941 Unknown [id number] 2.16.8 40.1.565422.3.579.2.173 1941 Unknown [id number] 2.16.8 40.1.217058.3.579.2.173 1941 Unknown [id number] 2.16.8 40.1.507312.3.579.2.173 1941 Unknown [id number] 2.16.8 40.1.941373.3.579.2.173 1941 Unknown [id number] 2.16.8 40.1.462768.3.579.2.173 1941 Unknown [id number] 2.16.8 40.1.688414.3.579.2.173 1941 Unknown [id number] 2.16.8 40.1.288818.3.579.2.173 1941 Unknown [id number] 2.16.8 40.1.077815.3.579.2.173 1941 Unknown [id number] 2.16.8 40.1.315648.3.579.2.173 1941 Unknown [id number] 2.16.8 40.1.250849.3.579.2.173 1941 Unknown [id number] 2.16.8 40.1.066339.3.579.2.173 1941 Unknown [id number] 2.16.8 40.1.546902.3.579.2.173 1941 Unknown [id number] 2.16.8 40.1.701802.3.579.2.173 1941 Unknown [id number] 2.16.8 40.1.186429.3.579.2.173 1941 Unknown [id number] 2.16.8 40.1.786833.3.579.2.173 1941 Unknown [id number] 2.16.8 40.1.075182.3.579.2.173 1941 Unknown [id number] 2.16.8 40.1.703034.3.579.2.173 1941 Unknown [id number] 2.16.8 40.1.743155.3.579.2.173 1941 Unknown [id number] 2.16. 840.1.687060.3.579.2.196 1941 Unknown [id number] 2.16. 840.1.756199.3.579.2.196 1941 Unknown [id number] 2.16. 840.1.528780.3.579.2.196 1941 Unknown [id number] 2.16. 840.1.927208.3.579.2.196 1941 Unknown [id number] 2.16. 840.1.658613.3.579.2.196 Social History Date Type Detail Facility Start: 04-19-2020 End: 10-10-2021 Tobacco smoking status WAIS Never smoker [facility] Start: 04-19-2020 End: 10-10-2021 Tobacco use and exposure Never used [employer] Phone: Start: 04-19-2020 End: 07-19-2024 Alcohol intake Current non-drinker of alcohol (finding) [employer] Phone: Start: 1940 Sex Assigned At Not on file [facility] Phone: Start: 09-25-2021 End: 10-21-2021 Exposure to SARS-CoV-2 (event) Not sure [employer] Phone: Exposure to SARS-CoV -2 (event) Yes [facility] Start: 04-04-2023 End: 07-12-2024 History of Social function [facility] [employer] Start: 04-04-2023 End: 07-12-2024 [facility] Utilities [facility] Has the electric, Artillery s, oil, or water company threatened to shut off services in your home in past 12Mo No [facility] [employer] How often to you hav e a drink containing alcohol? Never [facility] Average Number of Drinks Not on file [facility] (I/We) worried wheth er (my/our) food would run out before (I/we) got money to buy more. Never true [facility] Start: 03-20-2012 Sex Female (finding) [facility] Medical Equipment Procedure Code Equipment Code Equipment Origin al Text Equipment Identifier Dates Lens Iol [employer] Mx60 25.0d - [id number] Start: 12-20-2017 Functional Status Date Assessment Result Facility [facility] Clinical Notes 09-02-2020 to 08-18-2024 Discharge InstructionsMoraima Magana PTA - 07/14/2024 12:37 PM Mariaelena Martinez PTA - 07/14/2024 7:45 AM Victor M Ty MD - 07/14/2024 6:30 AM EDTDischarge Instr - Activity Note Date & Type Note Facility 08-18-2024 Hospital Discharge instructions Shabnam Baxter MD - 08/18/2024 4:46 AM EDT Continue current medications as prescribed. Use Tylenol as needed for pain. Flexeril as needed for muscle spasms. Try using a horseshoe-shaped memory foam pillow for your neck while seated at home watching TV etc. to see if this may help. You may also use it while sleeping. Follow-up primary care provider in 2 to 3 days for recheck. Please return immediately she develop any headache slurred speech facial droop weakness numbness tingling chest pain or any other acute concerns The following attachments cannot be sent through Care Everywhere.Weakness: Generalized (Malian)Cervical Strain (Malian)documented in this encounter [facility] 07-14-2024 History of Present illness Narrative Physical Therapy Facility/Department: [facility] MED SURG Daily Treatment Note NAME: Ever Palmer : 1940 Date of Service: 07/14/2024 Discharge Recommendations: Continue to assess pending progress, Home with Home health PT, Home with assist PRN, Subacute/Senior Living Facility Patient Diagnosis(es): The primary encounter diagnosis was Transient alteration of awareness. Diagnoses of Right ear pain, Complicated UTI (urinary tract infection), and History of TIA (transient ischemic attack) were also pertinent to this visit. Assessment Assessment: Pt amb 280 ft x1 with FWW and CGA/SBA, forward flexed posture, slow nakita, shuffling gait pattern, path deviations, no LOB. Pt required VCs for safety and posture, fair carryover. Stair training 2 steps with R handrail and SPC. Pt required moderate VCs for sequencing and safety with stair training, good understanding. Pt completed STS transfers with BUE assist, CGA/SBA. Activity Tolerance: Patient tolerated treatment well Plan Physical Therapy Plan General Plan: 2 times a day 7 days a week Specific Instructions for Next Treatment: once per day on weekends and holidays Current Treatment Recommendations: Strengthening;ROM;Balance training;Functional mobility training;Transfer training;Endurance training;Gait training;Stair training;Neuromuscular re-education;Pain management;Home exercise program;Therapeutic activities Restrictions Restrictions/Precautions Restrictions/Precautions: Fall Risk, General Precautions Subjective Subjective Subjective: Pt in chair upon arrival, agreeable to therapy. Pt reports pain but does not rate at this time. Pt is hopeful she can go home today. Pain: denies Objective Vitals Bed Mobility Training Bed Mobility Training: Yes Overall Level of Assistance: Stand by assistance Interventions: Safety awareness training;Verbal cues Rolling: Stand by assistance Supine to Sit: Stand by assistance Scooting: Stand by assistance Transfer Training Transfer Training: Yes Overall Level of Assistance: Contact guard assistance;Stand by assistance Interventions: Verbal cues Sit to Stand: Contact guard assistance;Stand by assistance Stand to Sit: Contact guard assistance;Stand by assistance Bed to Chair: Contact guard assistance Toilet Transfer: Contact guard assistance Gait Gait Training: Yes Overall Level of Assistance: Stand by assistance;Contact guard assistance Distance (ft): 280 Feet Assistive Device: Walker, rolling;Gait belt Interventions: Safety awareness training;Verbal cues Base of Support: Widened Speed/Nakita: Slow Gait Abnormalities: Shuffling gait;Path deviations Rail Use: Right Stairs - Level of Assistance: Contact guard assistance Number of Stairs Trained: 2 (x4) Safety Devices Type of Devices: All fall risk precautions in place;Call light within reach;Chair alarm in place;Left in chair;Gait belt Goals Short Term Goals Time Frame for Short Term Goals: 20 days Short Term Goal 1: Pt to tolerate 20 minutes of ther ex to facilitate return to PLOF. Short Term Goal 2: Pt to ambulate 100' with FWW and CGA to increase ambulatory capacity for d/c Short Term Goal 3: Pt to complete transfers with FWW and CGA to demonstrate increased independacne for safety with d/c. Patient Goals Patient Goals : Pt goal to return home Education Patient Education Education Given To: Patient Education Provided: Role of Therapy;Plan of Care;Transfer Training Education Provided Comments: Stair training Barriers to Learning: None Education Outcome: Verbalized understanding Therapy Time Individual Concurrent Group Co-treatment Time In 953 Time Out 1012 Minutes 18 Moraima Dela Cruz PTA Cosigned by Dario Ruiz PT at 07/14/2024 12:49 PM EDT Physical Therapy Facility/Department: [facility] MED SURG Daily Treatment Note NAME: Ever Palmer : 1940 Date of Service: 07/14/2024 Discharge Recommendations: Continue to assess pending progress, Home with Home health PT, Home with assist PRN, Subacute/Senior Living Facility Patient Diagnosis(es): The primary encounter diagnosis was Transient alteration of awareness. A diagnosis of Right ear pain was also pertinent to this visit. Assessment Assessment: Bed mobility:SBA. Transfers:CGA/SBA. Pt ambulated [id number] with FWW and CGA for safety. Demoes slow cadance and decreased B LE step length. No LOB or unsteadiness. Pt with mild path deviations with walker. Commode use and transfer--CGA. Pt completed seated B LE therex x15 in all planes of motion. Activity Tolerance: Patient tolerated treatment well Plan Physical Therapy Plan General Plan: 2 times a day 7 days a week Specific Instructions for Next Treatment: once per day on weekends and holidays Current Treatment Recommendations: Strengthening;ROM;Balance training;Functional mobility training;Transfer training;Endurance training;Gait training;Stair training;Neuromuscular re-education;Pain management;Home exercise program;Therapeutic activities Restrictions Restrictions/Precautions Restrictions/Precautions: Fall Risk, General Precautions Subjective Subjective Subjective: Pt in bed upon arrival, agreeable to therapy at this time Pain: denies Objective Bed Mobility Training Bed Mobility Training: Yes Overall Level of Assistance: Stand by assistance Interventions: Safety awareness training;Verbal cues Rolling: Stand by assistance Supine to Sit: Stand by assistance Scooting: Stand by assistance Transfer Training Transfer Training: Yes Overall Level of Assistance: Contact guard assistance Interventions: Verbal cues Sit to Stand: Contact guard assistance Stand to Sit: Contact guard assistance Bed to Chair: Contact guard assistance Toilet Transfer: Contact guard assistance Gait Gait Training: Yes Overall Level of Assistance: Stand by assistance;Contact guard assistance Distance (ft): 280 Feet Assistive Device: Walker, rolling Interventions: Safety awareness training;Verbal cues Speed/Nakita: Slow Gait Abnormalities: Shuffling gait PT Exercises Exercise Treatment: Seated exercises B LE x15 Safety Devices Type of Devices: All fall risk precautions in place;Call light within reach;Chair alarm in place;Left in chair Goals Short Term Goals Time Frame for Short Term Goals: 20 days Short Term Goal 1: Pt to tolerate 20 minutes of ther ex to facilitate return to PLOF. Short Term Goal 2: Pt to ambulate 100' with FWW and CGA to increase ambulatory capacity for d/c Short Term Goal 3: Pt to complete transfers with FWW and CGA to demonstrate increased independacne for safety with d/c. Patient Goals Patient Goals : Pt goal to return home Education Patient Education Education Given To: Patient Education Provided: Role of Therapy;Plan of Care;Transfer Training Education Method: Verbal Barriers to Learning: None Education Outcome: Verbalized understanding Therapy Time Individual Concurrent Group Co-treatment Time In 715 Time Out 0743 Minutes 27 Mariaelena Bob PTA Cosigned by Dario Ruiz PT at 07/14/2024 10:32 AM EDT Images from the original note were not included. [address] , [place], [place], [address] Progress Note Date: 07/14/2024 Patient name: Ever Palmer Date of admission: 07/11/2024 9:56 PM Date of : 1940 SUBJECTIVE/Last 24 hours update: Patient seen and examined at the bed side , no new acute events overnight and, no new complains except for some ongoing fatigue at times. VSS, afebrile. She does feel better but has intermittent right head pain but getting better over the past 1 week or so. Tolerating PO intake well and working with PT/OT. Notes from nursing staff and Consults had been reviewed, and the overnight progress had been checked with the nursing staff as well. REVIEW OF SYSTEMS: CONSTITUTIONAL: no fevers, no headcahes EYES: negative for blury vision HEENT: No headaches, No nasal congestion, no difficulty swallowing, head pain RESPIRATORY:negative for dyspnea, no wheezing, no Cough CARDIOVASCULAR: negative for chest pain, no palpitations GASTROINTESTINAL: no nausea, no vomiting, no change in bowel habits, no abdominal pain GENITOURINARY: negative for dysuria, no hematuria MUSCULOSKELETAL: no joint pains, no muscle aches, no swelling of joints or extremities NEUROLOGICAL: No Weakness or numbness PAST MEDICAL HISTORY: has a past medical history of Asthma, Cerebral artery occlusion with cerebral infarction (HCC), Diabetes mellitus (HCC), History of DVT (deep vein thrombosis), Hypertension, Status post transesophageal echocardiogram (ALEKSANDRA), and TIA (transient ischemic attack). PAST SURGICAL HISTORY: has a past surgical history that includes Hysterectomy; Carpal tunnel release (Bilateral); Ankle surgery (Left); Colonoscopy; Appendectomy; Cholecystectomy; Cataract removal with implant (Left); Cataract removal with implant (Right, 12/20/2017); pr xcapsl ctrc rmvl insj io lens prosth w/o ecp (Right, 12/20/2017); and other surgical history (09/02/2020). SOCIAL HISTORY: reports that she has never smoked. She has never used smokeless tobacco. She reports that she does not drink alcohol and does not use drugs. TOBACCO: reports that she has never smoked. She has never used smokeless tobacco. ETOH: reports no history of alcohol use. Reviewed and non-contributory or as noted above and/or in the HPI FAMILY HISTORY: family history includes Cancer in her brother; Ovarian Cancer in her sister. Problem Relation Age of Onset Cancer Brother Ovarian Cancer Sister Reviewed and non-contributory or as noted above and/or in the HPI HOME MEDICATIONS: Prior to Admission medications Medication Sig Start Date End Date Taking? Authorizing Provider rOPINIRole (REQUIP) 0.5 MG tablet Take 1 tablet by mouth daily Edgar Ponce MD cetirizine-psuedoephedrine (ZYRTEC-D) 5-120 MG per extended release tablet Take 1 tablet by mouth daily Edgar Ponce MD spironolactone (ALDACTONE) 25 MG tablet Take 2 tablets by mouth daily 08/13/23 Edgar Ponce MD montelukast (SINGULAIR) 10 MG tablet Take 1 tablet by mouth nightly at bedtime 03/23/23 Edgar Ponce MD NONFORMULARY [facility] Vitamin daily Edgar Ponce MD atorvastatin (LIPITOR) 40 MG tablet Take 1 tablet by mouth daily Patient taking differently: Take 1 tablet by mouth nightly 04/19/20 Eunice Richter APRN - KERRY lactulose (CEPHULAC) 10 g packet Take 1 packet by mouth 2 times daily Edgar Ponce MD baclofen (LIORESAL) 10 MG tablet Take 1 tablet by mouth nightly Edgar Ponce MD metFORMIN (GLUCOPHAGE) 500 MG tablet Take 1 tablet by mouth nightly Edgar Ponce MD aspirin 81 MG tablet Take 1 tablet by mouth daily Edgar Ponce MD ALLERGIES: Morphine OBJECTIVE: Vitals: 07/13/24 0925 07/13/24 1415 07/13/24 1824 07/14/24 0410 BP: (!) 144/67 (!) 139/56 (!) 140/61 Pulse: 67 68 74 Resp: 18 18 18 Temp: 97.4 F (36.3 C) 97.9 F (36.6 C) 97.8 F (36.6 C) TempSrc: Temporal Temporal Temporal SpO2: 98% 99% 98% Weight: 85.9 kg (189 lb 4.8 oz) Height: Intake/Output Summary (Last 24 hours) at 07/14/2024 0633 Last data filed at 07/14/2024 0600 Gross per 24 hour Intake 3383.11 ml Output 1900 ml Net 1483.11 ml PHYSICAL EXAM: General Appearance Alert , awake , not in acute distress HEENT - Head is normocephalic, atraumatic. Some excessive ear wax present in both ears TM wnl Lungs - Bilateral equal air entry , no wheezes, rales or rhonchi, aeration good Cardiovascular - Heart sounds are normal. Regular rhythm, normal rate without murmur, gallop or rub. Abdomen - Soft, nontender, nondistended, no masses or organomegaly Neurologic - There are no new focal motor or sensory deficits Skin - No bruising or bleeding on exposed skin area Extremities - No cyanosis, clubbing or edema DIAGNOSTICS: Laboratory Testing: See [facility] EMR for lab data Recent Results (from the past 24 hours) CBC auto differential Collection Time: 07/14/24 6:08 AM Result Value Ref Range WBC 5.8 3.5 - 11.3 k/uL RBC 3.37 (L) 3.95 - 5.11 m/uL Hemoglobin 10.2 (L) 11.9 - 15.1 g/dL Hematocrit 32.4 (L) 36.3 - 47.1 % MCV 96.1 82.6 - 102.9 fL MCH 30.3 25.2 - 33.5 pg MCHC 31.5 28.4 - 34.8 g/dL RDW 13.2 11.8 - 14.4 % Platelets 195 138 - 453 k/uL MPV 9.7 8.1 - 13.5 fL NRBC Automated 0.0 0.0 per 100 WBC Neutrophils % 55 36 - 65 % Lymphocytes % 26 24 - 43 % Monocytes % 14 (H) 3 - 12 % Eosinophils % 5 (H) 1 - 4 % Basophils % 0 0 - 2 % Immature Granulocytes % 0 0 % Neutrophils Absolute 3.16 1.50 - 8.10 k/uL Lymphocytes Absolute 1.51 1.10 - 3.70 k/uL Monocytes Absolute 0.83 0.10 - 1.20 k/uL Eosinophils Absolute 0.27 0.00 - 0.44 k/uL Basophils Absolute <0.03 0.00 - 0.20 k/uL Immature Granulocytes Absolute <0.03 0.00 - 0.30 k/uL Current Facility-Administered Medications Medication Dose Route Frequency Provider Last Rate Last Admin cephALEXin (KEFLEX) capsule 500 mg 500 mg Oral 4 times per day Victor M Ny MD sodium chloride flush 0.9 % injection 5-40 mL 5-40 mL IntraVENous 2 times per day Marnie Martin L, 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 10 mL at 07/13/242207 sodium chloride flush 0.9 % injection 5-40 mL 5-40 mL IntraVENous PRN VeronicaPhiln L, 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 0.9 % sodium chloride infusion IntraVENous PRN Marnie Martin L, 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 enoxaparin (LOVENOX) injection 40 mg 40 mg SubCUTAneous Daily Marnie Martin L, 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 40 mg at 07/13/24925 ondansetron (ZOFRAN-ODT) disintegrating tablet 4 mg 4 mg Oral Q8H PRN Marnie Martin, 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 Or ondansetron (ZOFRAN) injection 4 mg 4 mg IntraVENous Q6H PRN Marnie Martin L, 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 acetaminophen (TYLENOL) tablet 650 mg 650 mg Oral Q6H PRN Marnie Martin L, 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 650 mg at 07/13/241930 Or acetaminophen (TYLENOL) suppository 650 mg 650 mg Rectal Q6H PRN Marnie Martin L, 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 polyethylene glycol (GLYCOLAX) packet 17 g 17 g Oral Daily PRN Marnie Martin L, 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 aspirin EC tablet 81 mg 81 mg Oral Daily Marnie Martin L, 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 81 mg at 07/13/24925 atorvastatin (LIPITOR) tablet 40 mg 40 mg Oral Nightly Marnie Martin L, 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 40 mg at 07/13/241930 baclofen (LIORESAL) tablet 10 mg 10 mg Oral Nightly Marnie Martin L, 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 10 mg at 07/13/241930 lactulose (CHRONULAC) 10 GM/15ML solution 10 g 10 g Oral BID Marnie Martin L, 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 metFORMIN (GLUCOPHAGE) tablet 500 mg 500 mg Oral Nightly Veronica, Marnie L, 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 500 mg at 07/13/241930 montelukast (SINGULAIR) tablet 10 mg 10 mg Oral Nightly VeronicaPhiln Goldy, 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 10 mg at 07/13/241930 rOPINIRole (REQUIP) tablet 0.5 mg 0.5 mg Oral Daily VeronicaPhiln L, 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 0.5 mg at 07/13/242202 spironolactone (ALDACTONE) tablet 50 mg 50 mg Oral Daily VeronicaPhiln L, 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 50 mg at 07/13/24925 ASSESSMENT: Principal Problem: Complicated UTI (urinary tract infection) Active Problems: TGA (transient global amnesia) Type 2 diabetes mellitus, without long-term current use of insulin ([facility]) Hypertension Resolved Problems: * No resolved hospital problems. * PLAN: Primary Problem(s): Complicated UTI (urinary tract infection) Condition is at treatment goal Treatment plan: Continue current treatment Imaging: no further imaging studies ordered today Medications: Continue current meds Medication Monitoring / High Risk Medications: none Abx adjusted based on culture ESCHERICHIA COLI >100,000 CFU/ML Identification by MALDI-TOF Abnormal Blood cultures NGTD2 Start on Keflex Obtain/monitor labs PT/OT Dispo pending Above plan discussed with the patient who agreed to the above plan Discussed care plan with nurse after getting their input. Please note that this chart was generated using voice recognition [employer] dictation software. Although every effort was made to ensure the accuracy of this automated nursing program coordinator, some errors in nursing program coordinator may have occurred. Victor M Ny MD 07/14/2024 6:33 AM Manager Internal at bedside to complete evening assessment. Upon entry to room, pt in chair, at bed side, respirations unlabored while on RA. Vitals obtained and assessment completed, see flow sheet for details. Pt denies needs from ghost writer at this time. Call light in reach. Care is ongoing. Spiritual Services Interventions 0314/0314-01 07/13/2024 Teo Palmer 83 y.o. year old female Encounter Summary Encounter Overview/Reason: (P) Spiritual/Emotional Needs Service Provided For: (P) Patient Referral/Consult From: (P) Tammy Last Encounter : (P) 07/13/24 Complexity of Encounter: (P) Moderate Begin Time: (P) 1600 End Time : (P) 1615 Total Time Calculated: (P) 15 min Spiritual/Emotional needs Type: (P) Spiritual Support Assessment/Intervention/Outcome Assessment: (P) Calm Intervention: (P) Discussed belief system/samaritan practices/jono, Discussed illness injury and it s impact Outcome: (P) Encouraged, Engaged in conversation Physical Therapy Facility/Department: [facility] MED SURG Daily Treatment Note NAME: Ever Palmer : 1940 Date of Service: 07/13/2024 Discharge Recommendations: Continue to assess pending progress, Home with Home health PT, Home with assist PRN, Subacute/Senior Living Facility Patient Diagnosis(es): The encounter diagnosis was Transient alteration of awareness. Assessment Assessment: Transfers:CGA/Min A. Seated exercises B Le x20. Gait wiht WW 40ftx2,15ftx1, CGA for safety with slow nakita noted. Activity Tolerance: Patient tolerated treatment well Plan Physical Therapy Plan General Plan: 2 times a day 7 days a week Specific Instructions for Next Treatment: once per day on weekends and holidays Current Treatment Recommendations: Strengthening;ROM;Balance training;Functional mobility training;Transfer training;Endurance training;Gait training;Stair training;Neuromuscular re-education;Pain management;Home exercise program;Therapeutic activities Restrictions Restrictions/Precautions Restrictions/Precautions: Fall Risk, General Precautions Subjective Subjective Subjective: Pt. in chair sid arrival, agreeable to therapy at this time. Pain: denies Objective Bed Mobility Training Bed Mobility Training: No Overall Level of Assistance: Contact guard assistance Interventions: Safety awareness training;Verbal cues Supine to Sit: Contact guard assistance Sit to Supine: Contact guard assistance Scooting: Contact guard assistance Balance Sitting: Impaired Sitting - Static: Fair (occasional);Good (unsupported) Sitting - Dynamic: Good (unsupported);Fair (occasional) Standing: Impaired Standing - Static: Fair Standing - Dynamic: Fair Transfer Training Transfer Training: Yes Overall Level of Assistance: Contact guard assistance;Minimal assistance Interventions: Verbal cues Sit to Stand: Contact guard assistance;Minimal assistance Stand to Sit: Contact guard assistance;Minimal assistance Bed to Chair: Contact guard assistance;Minimal assistance Toilet Transfer: Contact guard assistance;Minimal assistance Gait Training Right Side Weight Bearing: Full Left Side Weight Bearing: Full Gait Gait Training: Yes Left Side Weight Bearing: Full Right Side Weight Bearing: Full Overall Level of Assistance: Contact guard assistance Distance (ft): 15 Feet Assistive Device: Walker, rolling Interventions: Safety awareness training;Verbal cues Speed/Nakita: Slow Gait Abnormalities: Shuffling gait PT Exercises Exercise Treatment: Seated exercises B LE x20 Other Specialty Interventions Other Treatments/Modalities: commode use and transfer Safety Devices Type of Devices: All fall risk precautions in place;Call light within reach;Chair alarm in place;Left in chair Goals Short Term Goals Time Frame for Short Term Goals: 20 days Short Term Goal 1: Pt to tolerate 20 minutes of ther ex to facilitate return to PLOF. Short Term Goal 2: Pt to ambulate 100' with FWW and CGA to increase ambulatory capacity for d/c Short Term Goal 3: Pt to complete transfers with FWW and CGA to demonstrate increased independacne for safety with d/c. Patient Goals Patient Goals : Pt goal to return home Education Patient Education Education Given To: Patient Education Provided: Role of Therapy;Plan of Care;Transfer Training Education Method: Verbal Barriers to Learning: None Education Outcome: Verbalized understanding Therapy Time Individual Concurrent Group Co-treatment Time In 1316 Time Out 1342 Minutes 26 Marnie Cole PTA Cosigned by Daroi Ruiz PT at 07/13/2024 3:09 PM EDT Physical Therapy Facility/Department: [facility] MED SURG Daily Treatment Note NAME: Ever Palmer : 1940 Date of Service: 07/13/2024 Discharge Recommendations: Continue to assess pending progress, Home with Home health PT, Home with assist PRN, Subacute/Senior Living Facility Patient Diagnosis(es): The encounter diagnosis was Transient alteration of awareness. Assessment Assessment: Transfers: Min A x1 to WW. Reclined and seated exercises B LE x15. Gait wiht WW 15ftx1, Min A for safety. Pt. required frequent RB d/t fatigue. Activity Tolerance: Patient tolerated treatment well;Patient limited by fatigue Plan Physical Therapy Plan General Plan: 2 times a day 7 days a week Specific Instructions for Next Treatment: once per day on weekends and holidays Current Treatment Recommendations: Strengthening;ROM;Balance training;Functional mobility training;Transfer training;Endurance training;Gait training;Stair training;Neuromuscular re-education;Pain management;Home exercise program;Therapeutic activities Restrictions Restrictions/Precautions Restrictions/Precautions: Fall Risk, General Precautions Subjective Subjective Subjective: Pt. in hcair upon arrival with eyes closed, responds when TENANT COORDINATOR entered, agreeable to therapy at this time. Pain: ROMERO Objective Bed Mobility Training Bed Mobility Training: No Overall Level of Assistance: Contact guard assistance Interventions: Safety awareness training;Verbal cues Supine to Sit: Contact guard assistance Sit to Supine: Contact guard assistance Scooting: Contact guard assistance Balance Sitting: Impaired Sitting - Static: Fair (occasional);Good (unsupported) Sitting - Dynamic: Good (unsupported);Fair (occasional) Standing: Impaired Standing - Static: Fair Standing - Dynamic: Fair Transfer Training Transfer Training: Yes Overall Level of Assistance: Minimal assistance Interventions: Verbal cues Sit to Stand: Minimal assistance Stand to Sit: Minimal assistance Bed to Chair: Contact guard assistance;Minimal assistance Gait Training Right Side Weight Bearing: Full Left Side Weight Bearing: Full Gait Gait Training: Yes Left Side Weight Bearing: Full Right Side Weight Bearing: Full Overall Level of Assistance: Minimal assistance Distance (ft): 15 Feet Assistive Device: Walker, rolling Interventions: Safety awareness training;Verbal cues Speed/Nakita: Slow Gait Abnormalities: Shuffling gait PT Exercises Exercise Treatment: Reclined and seated exercises B LE x15 Safety Devices Type of Devices: Chair alarm in place;Call light within reach;Left in chair;All fall risk precautions in place Goals Short Term Goals Time Frame for Short Term Goals: 20 days Short Term Goal 1: Pt to tolerate 20 minutes of ther ex to facilitate return to PLOF. Short Term Goal 2: Pt to ambulate 100' with FWW and CGA to increase ambulatory capacity for d/c Short Term Goal 3: Pt to complete transfers with FWW and CGA to demonstrate increased independacne for safety with d/c. Patient Goals Patient Goals : Pt goal to return home Education Patient Education Education Given To: Patient Education Provided: Role of Therapy;Plan of Care Education Method: Verbal Barriers to Learning: None Education Outcome: Verbalized understanding Therapy Time Individual Concurrent Group Co-treatment Time In 1016 Time Out 1039 Minutes 23 Marnie Cole PTA Cosigned by Dario Ruiz PT at 07/13/2024 3:09 PM EDT Progress Note SUBJECTIVE: Patient seen for f/u of Complicated UTI (urinary tract infection). She sitting up on commode no distress. Continues to have some confusion but pleasant and cooperative. No complaints. Denied pain. ROS: Constitutional: negative for fevers, and negative for chills. Respiratory: negative for shortness of breath, negative for cough, and negative for wheezing Cardiovascular: negative for chest pain, and negative for palpitations Gastrointestinal: negative for abdominal pain, negative for nausea,negative for vomiting, negative for diarrhea, and negative for constipation All other systems were reviewed with the patient and are negative unless otherwise stated in HPI OBJECTIVE: Vitals: Vitals: 07/12/24 1857 BP: (!) 149/69 Pulse: Resp: 16 Temp: 97.8 F (36.6 C) SpO2: 98% Weight - Scale: 84.9 kg (187 lb 1.6 oz) Height: 165.1 cm (5' 5 ) Weight Wt Readings from Last 3 Encounters: 07/13/24 84.9 kg (187 lb 1.6 oz) 10/25/23 82.6 kg (182 lb 3.2 oz) 04/16/23 82.1 kg (181 lb) Body mass index is 31.14 kg/m . 24HR INTAKE/OUTPUT: Intake/Output Summary (Last 24 hours) at 07/13/2024 0647 Last data filed at 07/13/2024 0400 Gross per 24 hour Intake 3045.37 ml Output 600 ml Net 2445.37 ml --- Exam: GEN: Awake, alert and oriented to person and place only. EYES: EOMI, pupils equal NECK: Supple. No [...] intact SKIN: No rashes. No skin lesions. --- Diagnostic Data: Complete Blood Count: Recent Labs 07/11/24221407/12/24 05007/13/24 0530 WBC 5.4 6.0 7.5 RBC 3.52* 3.23* 3.36* HGB 10.8* 9.8* 10.4* HCT 33.7* 31.1* 32.5* MCV 95.7 96.3 96.7 MCH 30.7 30.3 31.0 MCHC 32.0 31.5 32.0 RDW 13.5 13.4 13.4 PLT 216 188 196 MPV 9.6 9.7 9.4 Last 3 Blood Glucose: Recent Labs 07/11/24230407/12/24 0500 07/13/24 0530 GLUCOSE 94 104* 87 Comprehensive Metabolic Profile: Recent Labs 07/11/24230407/12/24 0500 07/13/24 0530 NA 143 143 140 K 4.8 4.5 4.2 CL 108* 112* 110* CO2 22 22 19* BUN 31* 29* 21 CREATININE 1.4* 1.2* 0.9 GLUCOSE 94 104* 87 CALCIUM 9.3 8.5* 8.6 BILITOT 0.3 -- -- ALKPHOS 86 -- -- AST 20 -- -- ALT 15 -- -- Urinalysis: Lab Results Component Value Date/Time NITRU POSITIVE 07/11/2024 10:30 PM COLORU Yellow 07/11/2024 10:30 PM PHUR 6.0 07/11/2024 10:30 PM PHUR 7.0 10/05/2021 04:32 PM WBCUA 50 TO 100 07/11/2024 10:30 PM RBCUA 0 TO 2 07/11/2024 10:30 PM MUCUS TRACE 04/17/2020 04:10 PM TRICHOMONAS NOT REPORTED 04/17/2020 04:10 PM YEAST NOT REPORTED 04/17/2020 04:10 PM BACTERIA 4+ 07/11/2024 10:30 PM LEUKOCYTESUR SMALL 07/11/2024 10:30 PM UROBILINOGEN Normal 07/11/2024 10:30 PM BILIRUBINUR NEGATIVE 07/11/2024 10:30 PM GLUCOSEU NEGATIVE 07/11/2024 10:30 PM KETUA NEGATIVE 07/11/2024 10:30 PM AMORPHOUS NOT REPORTED 04/17/2020 04:10 PM HgBA1c: Lab Results Component Value Date/Time LABA1C 5.6 05/15/2024 01:47 PM Lactic Acid: Lab Results Component Value Date/Time LACTA 0.8 07/11/2024 10:15 PM Troponin: No results for input(s): TROPONINI in the last 72 hours. CRP: No results for input(s): CRP in the last 72 hours. Radiology/Imaging: CT Head WO Contrast Final Result No acute intracranial abnormality. XR CHEST (2 VW) Final Result No acute cardiopulmonary process. ASSESSMENT / PLAN: MEDICAL DECISION MAKING: Primary Problem(s): Complicated UTI (urinary tract infection) Differential diagnoses: Sepsis Condition is an undiagnosed new problem with uncertain prognosis Condition is stable Treatment plan: BC x 2-no growth UC-pending Telemetry monitoring Monitor labs and replace electrolytes PT OT Imaging: no further imaging studies ordered today Medications: Continue Rocephin IV fluids Medication Monitoring / High Risk Medications: none Type 2 diabetes Condition is a chronic stable condition Treatment plan: Diabetic diet Monitor labs Imaging: no further imaging studies ordered today Medications: Continue metformin Essential hypertension Condition is a chronic stable condition Treatment plan: Continue current treatment Imaging: no further imaging studies ordered today Medications: Continue spironolactone Nutrition status: Well developed, well nourished with no malnutrition Project Management Professor consult initiated I/O Daily weight Monitor Daily intake Nutritional Supplements as tolerated MALNUTRITION ASSESSMENT AND PLAN The following was documented by the Dietitian: Malnutrition Assessment Context of Malnutrition: Acute Illness (07/12/24813) Acute Illness - Energy Intake : Mild decrease in energy intake (acutely) (07/12/24813) Acute Illness - Weight Loss : No weight loss (07/12/24813) Acute Illness - Body Fat Loss: No body fat loss (07/12/24813) Acute Illness - Muscle Mass Loss: No muscle mass loss (07/12/24813) Acute Illness - Fluid Accumulation : Mild (07/12/24813) Acute Illness - Fluid Accumulation Location: Extremities (07/12/24813) Acute Illness - Pickling Grader Strength: Not Performed (07/12/24813) Acute Illness - Malnutrition Score: 1 (07/12/24813) Malnutrition Status: At risk for malnutrition (07/12/24813) I agree with the dietitian's malnutrition assessment. Medical Nutrition Therapy: continue current nutrition therapy T Hospital Prophylaxis: DVT: Lovenox Stress Ulcer: na Disposition: Shared decision making: All test results, treatment options and disposition options were discussed with the patient today Social determinants of health that may impact management: none Code status: Full Code Disposition: Discharge plan is pending [facility] Advanced Care Planning documentation: [x] I have confirmed that the patient's Advance Care Plan is present, Code Status is documented, or surrogate decision maker is listed in the patient's medical record [If yes , STOP HERE] [] The patient's Advance Care Plan is NOT present because: [] I confirmed today that the patient does not wish or was not able to name a surrogate decision maker or provide and advance care plan. [] Hospice care is currently being provided or has been provided within the calendar year. [] I did NOT confirm today the presence of an Advance Care Plan or surrogate decision maker documented within the patient's medical record. [DOES NOT SATISFY [facility] PERFORMANCE] ENZO Holley CNP , HERNANDO GIRALDO-C Hospitalist Medicine 07/13/2024, 6:47 AM Cosigned by Victor M Ny MD at 07/13/2024 2:35 PM EDT Associated attestation - Victor M Ny MD - 07/13/2024 2:35 PM EDT Images from the original note were not included. [address], [place], [place], [address] Attestation Patient: Ever Palmer Date of Admission: 07/11/2024 9:56 PM Hospital Day # 1 Date of Evaluation: 07/13/2024 I personally evaluated and examined the patient [id number] in conjunction with the PA/[employer] and agree with the management and dispostition of the patient. Please see the PA/[employer]'s note for full details. My eason findings are: SUBJECTIVE: Patient seen for follow up of Complicated UTI (urinary tract infection). She is doing better. Discussed her concerns about being in the hospital. Discussed POC/that she has a UTI. She has more energy than prior. OBJECTIVE: Vitals: Temp: 97.9 F (36.6 C) BP: (!) 139/56 Respirations: 18 Pulse: 68 SpO2: 99 % Weight Wt Readings from Last 3 Encounters: 07/13/24 84.9 kg (187 lb 1.6 oz) 10/25/23 82.6 kg (182 lb 3.2 oz) 04/16/23 82.1 kg (181 lb) Body mass index is 31.14 kg/m . 24HR INTAKE/OUTPUT: Intake/Output Summary (Last 24 hours) at 07/13/2024 1434 Last data filed at 07/13/2024 1423 Gross per 24 hour Intake 3943.56 ml Output 1000 ml Net 2943.56 ml --- Exam: GEN: Awake, alert and oriented to person and place only. EYES: EOMI, pupils equal NECK: Supple. No [...] intact SKIN: No rashes. No skin lesions. DATA: Complete Blood Count: Recent Labs 07/11/24221407/12/24 0500 07/13/24 0530 WBC 5.4 6.0 7.5 RBC 3.52* 3.23* 3.36* HGB 10.8* 9.8* 10.4* HCT 33.7* 31.1* 32.5* MCV 95.7 96.3 96.7 RDW 13.5 13.4 13.4 PLT 216 188 196 Recent Labs 07/11/24221407/12/24 0500 07/13/24 0530 NEUTROABS 2.97 3.42 5.07 LYMPHOPCT 25 24 19* LYMPHSABS 1.35 1.43 1.40 MONOPCT 16* 15* 11 BASOPCT 0 0 0 IMMGRAN 0 0 0 CMP: Lab Results Component Value Date GLUCOSE 87 07/13/2024 BUN 21 07/13/2024 CREATININE 0.9 07/13/2024 NA 140 07/13/2024 K 4.2 07/13/2024 CALCIUM 8.6 07/13/2024 CL 110 (H) 07/13/2024 CO2 19 (L) 07/13/2024 BILITOT 0.3 07/11/2024 ALKPHOS 86 07/11/2024 ALT 15 07/11/2024 AST 20 07/11/2024 UA: Lab Results Component Value Date COLORU Yellow 07/11/2024 WBCUA 50 TO 100 07/11/2024 RBCUA 0 TO 2 07/11/2024 LEUKOCYTESUR SMALL (A) 07/11/2024 GLUCOSEU NEGATIVE 07/11/2024 KETUA NEGATIVE 07/11/2024 PROTEINU NEGATIVE 07/11/2024 HGBUR NEGATIVE 07/11/2024 CASTUA NOT REPORTED 04/17/2020 BACTERIA 4+ (A) 07/11/2024 YEAST NOT REPORTED 04/17/2020 Lactic Acid: Lab Results Component Value Date/Time LACTA 0.8 07/11/2024 10:15 PM High Sensitivity Troponin: Recent Labs 07/11/24 2220 07/11/24 2338 TROPHS 29* 25* Radiology/Imaging: CT Head WO Contrast Final Result No acute intracranial abnormality. XR CHEST (2 VW) Final Result No acute cardiopulmonary process. ASSESSMENT: Principal Problem: Complicated UTI (urinary tract infection) Active Problems: TGA (transient global amnesia) Type 2 diabetes mellitus, without long-term current use of insulin (HCC) Hypertension Resolved Problems: * No resolved hospital problems. * PLAN: I agree with the plan as outlined in the [employer]/PA's note Disposition: Discharge plan is pending Please note that this chart was generated using voice recognition [employer] dictation software. Although every effort was made to ensure the accuracy of this automated nursing program coordinator, some errors in nursing program coordinator may have occurred. Victor M Ny MD 07/13/2024 2:34 PM Manager Internal at bedside to complete evening assessment. Upon entry to room, pt in chair, respirations unlabored while on RA. Vitals obtained and assessment completed, see flow sheet for details. Pt denies needs from ghost writer at this time. Call light in reach. Care is ongoing. [facility] Inpatient/Observation/Outpatien t Rehabilitation Date: 07/12/2024 Patient Name: Ever Palmer [x] Inpatient Acute/Observation [] Outpatient : 1940 [x] Pt refused/declined therapy at this time due to: 2nd attempt, pt states I don't want to do any exercises now , nursing notified. [] Pt cancelled due to: [] No Reason Given [] Sick/ill [] Other: [] Evaluation held by RN/Provider/Physical Therapist due to: [] High Heart Rate [] High Blood Pressure [] Orthopedic Consult [] Hgb < 7 [] Other: [] Pt ordered brace per physician request: [] Proper fit will be completed and education for wearing/skin checks [] Pt does not require skilled services due to: Therapist/Senior Supply Chain Analyst will attempt to see this patient, at our earliest opportunity. Moraima Dela Cruz PTA Date: 07/12/2024 Cosigned by Danitza Gaffney PT at 07/12/2024 6:03 PM EDT Entered patient's room for morning vital signs and head to toe assessment. Patient resting in the bed at this time. A&O x4, tearful, anxious, and cooperative. Patient denies of pain at this time. Vital signs and head to toe assessment completed at this time, see flowsheets for more details. Manager Internal and Erika RN assisted patient to bedside commode. Patient is having some urinary frequency. Patient denies no more needs at this time. Call light and bedside table within reach. Bed alarm on. Bed/chair wheels locked. Bed in lowest position. Occupational Therapy Facility/Department: [facility] Occupational Therapy Initial Assessment Name: Ever Palmer : 1940 Date of Service: 07/12/2024 Discharge Recommendations: Continue to assess pending progress Patient Diagnosis(es): The encounter diagnosis was Transient alteration of awareness. Past Medical History: has a past medical history of Asthma, Cerebral artery occlusion with cerebral infarction (HCC), Diabetes mellitus (HCC), History of DVT (deep vein thrombosis), Hypertension, Status post transesophageal echocardiogram (ALEKSANDRA), and TIA (transient ischemic attack). Past Surgical History: has a past surgical history that includes Hysterectomy; Carpal tunnel release (Bilateral); Ankle surgery (Left); Colonoscopy; Appendectomy; Cholecystectomy; Cataract removal with implant (Left); Cataract removal with implant (Right, 12/20/2017); pr xcapsl ctrc rmvl insj io lens prosth w/o ecp (Right, 12/20/2017); and other surgical history (09/02/2020). Treatment Diagnosis: weakness Assessment Performance deficits / Impairments: Decreased functional mobility ;Decreased ADL status;Decreased endurance;Decreased coordination;Decreased posture;Decreased balance;Decreased strength;Decreased safe awareness;Decreased cognition;Decreased high-level IADLs Assessment: 83 y/o F admitted to T for AMS. Patient presents with weakness, deconditioning, confusion and increased need for assist during ADL, transfers and mobility. Patient would benefit from OT services to address to ensure safe return home with . Treatment Diagnosis: weakness Prognosis: Fair Decision Making: Medium Complexity REQUIRES OT FOLLOW-UP: Yes Plan Occupational Therapy Plan Times Per Day: Once a day Days Per Week: 7 Days Current Treatment Recommendations: ROM, Balance training, Safety education & training, Endurance training, Functional mobility training, Patient/Caregiver education & training, Equipment evaluation, education, & procurement, Self-Care / ADL, Strengthening, Cognitive reorientation Restrictions Restrictions/Precautions Restrictions/Precautions: Fall Risk, General Precautions Subjective General Patient assessed for rehabilitation services?: Yes Subjective Subjective: Patient states pain BUE, BLE, did not rate. Patient in bed upon arrival, agreeable to OT evaluation. Social/Functional History Social/Functional History Lives With: Spouse Type of Home: House Home Layout: One level Home Access: Stairs to enter with rails Entrance Stairs - Number of Steps: 3 Entrance Stairs - Rails: Right Bathroom Shower/Tub: Tub/Shower unit Bathroom Equipment: Shower chair, Grab bars in shower Home Equipment: Cane, Rollator Has the patient had two or more falls in the past year or any fall with injury in the past year?: Yes Receives Help From: Family Prior Level of Assist for ADLs: Independent Prior Level of Assist for Homemaking: Independent Homemaking Responsibilities: Yes Prior Level of Assist for Ambulation: Independent household ambulator, with or without device Prior Level of Assist for Transfers: Independent Active Agronomy Instructor: No Objective Observation/Palpation Posture: Fair Safety Devices Type of Devices: Chair alarm in place;Call light within reach AROM: Generally decreased, functional PROM: Within functional limits Strength: Generally decreased, functional Coordination: Generally decreased, functional Tone: Normal Sensation: Intact ADL Feeding: Setup Grooming: Minimal assistance UE Bathing: Moderate assistance LE Bathing: Maximum assistance UE Dressing: Moderate assistance LE Dressing: Maximum assistance Putting On/Taking Off Footwear: Maximum assistance Toileting: Maximum assistance Functional Mobility: Moderate assistance Functional Mobility Skilled Clinical Factors: FWW - required consisent assist with walker maneuverability. Additional Comments: mod A ADL transfers Activity Tolerance Activity Tolerance: Patient tolerated evaluation without incident Orientation Overall Orientation Status: Impaired Orientation Level: Oriented to person Education Given To: Patient Education Provided: Role of Therapy;Plan of Care;Transfer Training Education Method: Verbal Barriers to Learning: Cognition Education Outcome: Continued education needed AM-PAC - ADL AM-[facility] Daily Activity - Inpatient How much help is needed for putting on and taking off regular lower body clothing?: A Lot How much help is needed for bathing (which includes washing, rinsing, drying)?: A Lot How much help is needed for toileting (which includes using toilet, bedpan, or urinal)?: A Lot How much help is needed for putting on and taking off regular upper body clothing?: A Lot How much help is needed for taking care of personal grooming?: A Little How much help for eating meals?: A Little AM-[facility] Inpatient Daily Activity Raw Score: 14 AM-[facility] Inpatient ADL T-Scale Score : 33.39 ADL Inpatient [facility] 0-100% Score: 59.67 ADL Inpatient [facility] G-Code Modifier : CK Goals Short Term Goals Time Frame for Short Term Goals: 21 visits Short Term Goal 1: Patient to be educated on d/c folder, AE/DME and home safety to ensure safe return home. Short Term Goal 2: Patient to complete ADL routine c mod I c improved safety and use of AE/DME as needed to ensure safe and indep return home. Short Term Goal 3: Patient to engage in 15 minutes of ther ex/ther act to improve strength and activity tolerance for I/ADL upon return home. Short Term Goal 4: Patient to engage in 7 minutes dynamic standing during functional task of choice without loss of balance for improved I/ADL independence and safety upon return home. Therapy Time Individual Concurrent Group Co-treatment Time In 729 Time Out 0742 Minutes 12 ZULEMA Marinelli/Goldy Cosigned by Marnie Martin APRN - KERRY at 07/12/2024 9:45 PM EDT Comprehensive Nutrition Assessment Type and Reason for Visit: Initial Nutrition Recommendations/Plan: Encourage oral intakes Add ONS if PO without improvement as cognition improves. Malnutrition Assessment: Malnutrition Status: At risk for malnutrition (07/12/24 0814) Context: Acute Illness Findings of the 6 clinical characteristics of malnutrition: Energy Intake: Mild decrease in energy intake (acutely) Weight Loss: No weight loss Body Fat Loss: No body fat loss Muscle Mass Loss: No muscle mass loss Fluid Accumulation: Mild Extremities Pickling Grader Strength: Not Performed Nutrition Assessment: Predicted suboptimal nutrient intakes r/t altered cognitive status, AEB UTI with transient alteration of awareness. Slow to attempt self feeding this AM but more calm than last night per spouse at bedside (states she was yelling at him). Is fixated on clear phlegm in mouth and resistant to take sips to increase moisture and/or was it down. Suspect PO to return to usual intakes with improvement in infection. Nutrition Related Findings: active b/s. trace to +1 BLE edema. Wound Type: None Current Nutrition Intake & Therapies: Average Meal Intake: 1-25% (scant amounts) Average Supplements Intake: None Ordered ADULT DIET; Regular; 4 carb choices (60 gm/meal) Anthropometric Measures: Height: 165.1 cm (5' 5 ) Taylor Body Weight (IBW): 125 lbs (57 kg) Admission Body Weight: 81.6 kg (180 lb) Current Body Weight: 84.2 kg (185 lb 9.6 oz), 148.5 % IBW. Weight Source: Bed scale Current BMI (kg/m2): 30.9 Usual Body Weight: (unknown changes) Weight Adjustment For: No Adjustment BMI Categories: Obese Class 1 (BMI 30.0-34.9) Estimated Daily Nutrient Needs: Energy Requirements Based On: Kcal/kg Weight Used for Energy Requirements: Current Energy (kcal/day): 8620-7032 (18-21) Weight Used for Protein Requirements: Taylor Protein (g/day): 62-74 (1.1-1.3) Method Used for Fluid Requirements: 1 ml/kcal Fluid (ml/day): 1700 Nutrition Diagnosis: Predicted inadequate energy intake related to cognitive or neurological impairment as evidenced by intake 0-25% Lab Results Component Value Date NA 143 07/12/2024 K 4.5 07/12/2024 CL 112 (H) 07/12/2024 CO2 22 07/12/2024 BUN 29 (H) 07/12/2024 CREATININE 1.2 (H) 07/12/2024 GLUCOSE 104 (H) 07/12/2024 CALCIUM 8.5 (L) 07/12/2024 BILITOT 0.3 07/11/2024 ALKPHOS 86 07/11/2024 AST 20 07/11/2024 ALT 15 07/11/2024 LABGLOM 46 (L) 07/12/2024 GFRAA >60 10/21/2021 GLOB NOT REPORTED 06/02/2020 Hemoglobin A1C Date Value Ref Range Status 05/15/2024 5.6 4.0 - 6.0 % Final Lab Results Component Value Date VITD25 59.1 05/15/2024 Nutrition Interventions: Food and/or Nutrient Delivery: Continue Current Diet Nutrition Education/Counseling: No recommendation at this time Coordination of Nutrition Care: Continue to monitor while inpatient Plan of Care discussed with: patient and spouse Goals: Goals: Meet at least 75% of estimated needs Type of Goal: New goal Previous Goal Met: New Goal Nutrition Monitoring and Evaluation: Behavioral-Environmental Outcomes: Other (cognition) Food/Nutrient Intake Outcomes: Food and Nutrient Intake Physical Signs/Symptoms Outcomes: Biochemical Data, Weight, Meal Time Behavior Discharge Planning: Continue current diet [address] Gaffney RD, LD Contact: [phone] Physical Therapy Facility/Department: [facility] Physical Therapy Initial Assessment Name: Ever Palmer : 1940 Date of Service: 07/12/2024 Discharge Recommendations: Continue to assess pending progress, Home with Home health PT, Home with assist PRN, Subacute/Senior Living Facility Patient Diagnosis(es): The encounter diagnosis was Transient alteration of awareness. Past Medical History: has a past medical history of Asthma, Cerebral artery occlusion with cerebral infarction (HCC), Diabetes mellitus (HCC), History of DVT (deep vein thrombosis), Hypertension, Status post transesophageal echocardiogram (ALEKSANDRA), and TIA (transient ischemic attack). Past Surgical History: has a past surgical history that includes Hysterectomy; Carpal tunnel release (Bilateral); Ankle surgery (Left); Colonoscopy; Appendectomy; Cholecystectomy; Cataract removal with implant (Left); Cataract removal with implant (Right, 12/20/2017); pr xcapsl ctrc rmvl insj io lens prosth w/o ecp (Right, 12/20/2017); and other surgical history (09/02/2020). Assessment Assessment: Pt is a 83 y.o. female admitted for altered mental status. Pt demos B LE weakness at 3+/5 grossly. Pt presents with mild confusion and increased difficulty initiating movements. Pt ambulated 5' to bedside chair with FWW and Mod A x 1 for walker management and to initiate stepping. Pt requires mod A x 2 to transfer from supine to sit and frequent verbal cueing throughout session for participation. Pt would benefit from skilled therapy to address these defecits and improve function to prior level. Treatment Diagnosis: generalized weakness Specific Instructions for Next Treatment: once per day on weekends and holidays Therapy Prognosis: Good Decision Making: Low Complexity Requires PT Follow-Up: Yes Activity Tolerance Activity Tolerance: Patient tolerated evaluation without incident Plan Physical Therapy Plan General Plan: 2 times a day 7 days a week Specific Instructions for Next Treatment: once per day on weekends and holidays Current Treatment Recommendations: Strengthening, ROM, Balance training, Functional mobility training, Transfer training, Endurance training, Gait training, Stair training, Neuromuscular re-education, Pain management, Home exercise program, Therapeutic activities Safety Devices Type of Devices: Chair alarm in place, Call light within reach Restrictions Subjective General Chart Reviewed: Yes Patient assessed for rehabilitation services?: Yes Social/Functional History Social/Functional History Lives With: Spouse Type of Home: House Home Layout: One level Home Access: Stairs to enter with rails Entrance Stairs - Number of Steps: 3 Entrance Stairs - Rails: Right Bathroom Shower/Tub: Tub/Shower unit Bathroom Equipment: Shower chair, Grab bars in shower Home Equipment: Cane, Rollator Has the patient had two or more falls in the past year or any fall with injury in the past year?: Yes Receives Help From: Family Prior Level of Assist for ADLs: Independent Prior Level of Assist for Homemaking: Independent Homemaking Responsibilities: Yes Prior Level of Assist for Ambulation: Independent household ambulator, with or without device Prior Level of Assist for Transfers: Independent Active Agronomy Instructor: No Vision/Hearing Cognition Orientation Overall Orientation Status: Within Functional Limits Objective Temp: 97.5 F (36.4 C) Pulse: 62 Heart Rate Source: Monitor Respirations: 16 SpO2: 96 % O2 Device: None (Room air) BP: (!) 158/56 MAP (Calculated): 90 BP Location: Left upper arm BP Method: Automatic Patient Position: Semi fowlers Observation/Palpation Posture: Fair AROM RLE (degrees) RLE AROM: WFL AROM LLE (degrees) LLE AROM : WFL Strength RLE Strength RLE: WFL Strength LLE Strength LLE: WFL Bed mobility Rolling to Left: Partial/Moderate assistance Supine to Sit: Partial/Moderate assistance Scooting: Partial/Moderate assistance Transfers Sit to Stand: Minimal Assistance Stand to Sit: Minimal Assistance Bed to Chair: Partial/Moderate assistance Ambulation WB Status: fwb Ambulation Surface: Level tile Device: Rolling Walker Assistance: Partial/Moderate assistance Quality of Gait: Pt ambulated 5' to bedside chair with FWW and Mod A x 1 for walker management and to initiate stepping. Balance Posture: Fair Sitting - Static: Good Sitting - Dynamic: Good;- Standing - Static: Fair;+ Standing - Dynamic: Fair AM-PAC - Mobility AM-PAC Mobility without Stair Climbing Inpatient How much difficulty turning over in bed?: A Lot How much difficulty sitting down on / standing up from a chair with arms?: A Lot How much difficulty moving from lying on back to sitting on side of bed?: A Little How much help from another person moving to and from a bed to a chair?: A Little How much help from another person needed to walk in hospital room?: A Little AM-PAC Inpatient Mobility without Stair Climbing Raw Score : 13 AM-PAC Inpatient without Stair Climbing T-Scale Score : 38.96 Mobility Inpatient CMS 0-100% Score: 58.44 Mobility Inpatient without Stair CMS G-Code Modifier : CK Goals Short Term Goals Time Frame for Short Term Goals: 20 days Short Term Goal 1: Pt to tolerate 20 minutes of ther ex to facilitate return to PLOF. Short Term Goal 2: Pt to ambulate 100' with FWW and CGA to increase ambulatory capacity for d/c Short Term Goal 3: Pt to complete transfers with FWW and CGA to demonstrate increased independacne for safety with d/c. Patient Goals Patient Goals : Pt goal to return home Education Patient Education Education Given To: Patient Education Provided Comments: Pt edu: PT POC Therapy Time Individual Concurrent Group Co-treatment Time In 729 Time Out 0742 Minutes 12 Timed Code Treatment Minutes: 12 Minutes DANITZA GAFFNEY PT,DPT Cosigned by Marnie Martin APRN - CNP at 07/12/2024 9:45 PM EDT Progress Note SUBJECTIVE: Patient seen for f/u of Complicated UTI (urinary tract infection). She resting in bed no distress. Visitor at side. Appears fatigued Complains of headache ROS: Constitutional: negative for fevers, and negative for chills. Respiratory: negative for shortness of breath, negative for cough, and negative for wheezing Cardiovascular: negative for chest pain, and negative for palpitations Gastrointestinal: negative for abdominal pain, negative for nausea,negative for vomiting, negative for diarrhea, and negative for constipation All other systems were reviewed with the patient and are negative unless otherwise stated in HPI OBJECTIVE: Vitals: Vitals: 07/12/24 0140 BP: (!) 153/81 Pulse: 63 Resp: 14 Temp: 98.3 F (36.8 C) SpO2: 96% Weight - Scale: 84.2 kg (185 lb 9.6 oz) Height: 165.1 cm (5' 5 ) Weight Wt Readings from Last 3 Encounters: 07/12/24 84.2 kg (185 lb 9.6 oz) 10/25/23 82.6 kg (182 lb 3.2 oz) 04/16/23 82.1 kg (181 lb) Body mass index is 30.89 kg/m . 24HR INTAKE/OUTPUT: No intake or output data in the 24 hours ending 07/12/24 0635 --- Exam: GEN: Awake, alert and oriented to person and place only. EYES: EOMI, pupils equal NECK: Supple. No [...] intact SKIN: No rashes. No skin lesions. --- Diagnostic Data: Complete Blood Count: Recent Labs 07/11/24221407/12/24 0500 WBC 5.4 6.0 RBC 3.52* 3.23* HGB 10.8* 9.8* HCT 33.7* 31.1* MCV 95.7 96.3 MCH 30.7 30.3 MCHC 32.0 31.5 RDW 13.5 13.4 PLT 216 188 MPV 9.6 9.7 Last 3 Blood Glucose: Recent Labs 07/11/24230407/12/24 0500 GLUCOSE 94 104* Comprehensive Metabolic Profile: Recent Labs 07/11/24230407/12/24 0500 NA 143 143 K 4.8 4.5 CL 108* 112* CO2 22 22 BUN 31* 29* CREATININE 1.4* 1.2* GLUCOSE 94 104* CALCIUM 9.3 8.5* BILITOT 0.3 -- ALKPHOS 86 -- AST 20 -- ALT 15 -- Urinalysis: Lab Results Component Value Date/Time NITRU POSITIVE 07/11/2024 10:30 PM COLORU Yellow 07/11/2024 10:30 PM PHUR 6.0 07/11/2024 10:30 PM PHUR 7.0 10/05/2021 04:32 PM WBCUA 50 TO 100 07/11/2024 10:30 PM RBCUA 0 TO 2 07/11/2024 10:30 PM MUCUS TRACE 04/17/2020 04:10 PM TRICHOMONAS NOT REPORTED 04/17/2020 04:10 PM YEAST NOT REPORTED 04/17/2020 04:10 PM BACTERIA 4+ 07/11/2024 10:30 PM LEUKOCYTESUR SMALL 07/11/2024 10:30 PM UROBILINOGEN Normal 07/11/2024 10:30 PM BILIRUBINUR NEGATIVE 07/11/2024 10:30 PM GLUCOSEU NEGATIVE 07/11/2024 10:30 PM KETUA NEGATIVE 07/11/2024 10:30 PM AMORPHOUS NOT REPORTED 04/17/2020 04:10 PM HgBA1c: Lab Results Component Value Date/Time LABA1C 5.6 05/15/2024 01:47 PM Lactic Acid: Lab Results Component Value Date/Time LACTA 0.8 07/11/2024 10:15 PM Troponin: No results for input(s): TROPONINI in the last 72 hours. CRP: No results for input(s): CRP in the last 72 hours. Radiology/Imaging: CT Head WO Contrast Final Result No acute intracranial abnormality. XR CHEST (2 VW) Final Result No acute cardiopulmonary process. ASSESSMENT / PLAN: MEDICAL DECISION MAKING: Primary Problem(s): Complicated UTI (urinary tract infection) Differential diagnoses: Sepsis Condition is an undiagnosed new problem with uncertain prognosis Condition is stable Treatment plan: Blood and urine cultures pending Telemetry monitoring Monitor labs and replace electrolytes PT OT Imaging: no further imaging studies ordered today Medications: Rocephin IV fluids Medication Monitoring / High Risk Medications: none Type 2 diabetes Condition is a chronic stable condition Treatment plan: Diabetic diet Monitor labs Imaging: no further imaging studies ordered today Medications: Continue metformin Essential hypertension Condition is a chronic stable condition Treatment plan: Continue current treatment Imaging: no further imaging studies ordered today Medications: Continue spironolactone Nutrition status: Well developed, well nourished with no malnutrition Project Management Professor consult initiated I/O Daily weight Monitor Daily intake Nutritional Supplements as tolerated MALNUTRITION ASSESSMENT AND PLAN The following was documented by the Dietitian: I agree with the dietitian's malnutrition assessment. Medical Nutrition Therapy: continue current nutrition therapy Hospital Prophylaxis: DVT: Lovenox Stress Ulcer: na Disposition: Shared decision making: All test results, treatment options and disposition options were discussed with the patient today Social determinants of health that may impact management: none Code status: Full Code Disposition: Discharge plan is pending [facility] Advanced Care Planning documentation: [x] I have confirmed that the patient's Advance Care Plan is present, Code Status is documented, or surrogate decision maker is listed in the patient's medical record [If yes , STOP HERE] [] The patient's Advance Care Plan is NOT present because: [] I confirmed today that the patient does not wish or was not able to name a surrogate decision maker or provide and advance care plan. [] Hospice care is currently being provided or has been provided within the calendar year. [] I did NOT confirm today the presence of an Advance Care Plan or surrogate decision maker documented within the patient's medical record. [DOES NOT SATISFY [facility] PERFORMANCE] ENZO Holley CNP , HERNANDO GIRALDO-C Hospitalist Medicine 07/12/2024, 6:35 AM Cosigned by Victor M Ny MD at 07/12/2024 6:31 PM EDT Associated attestation - Victor M Ny MD - 07/12/2024 6:31 PM EDT Images from the original note were not included. [address] [place], [place], [address] Attestation Patient: Ever Palmer Date of Admission: 07/11/2024 9:56 PM Hospital Day # 0 Date of Evaluation: 07/12/2024 I personally evaluated and examined the patient [id number] in conjunction with the PA/[employer] and agree with the management and dispostition of the patient. Please see the PA/[employer]'s note for full details. My eason findings are: SUBJECTIVE: Patient seen for follow up of Complicated UTI (urinary tract infection). Patient seen and examined at the bed side , no new acute events overnight, no new complains noted. She continues to have a headache but indicates it is better than prior. Notes from nursing staff and Consults had been reviewed, and the overnight progress had been checked with the nursing staff as well. OBJECTIVE: Vitals: Temp: 98.2 F (36.8 C) BP: (!) 148/73 Respirations: 16 Pulse: 66 SpO2: 98 % Weight Wt Readings from Last 3 Encounters: 07/12/24 84.2 kg (185 lb 9.6 oz) 10/25/23 82.6 kg (182 lb 3.2 oz) 04/16/23 82.1 kg (181 lb) Body mass index is 30.89 kg/m . 24HR INTAKE/OUTPUT: Intake/Output Summary (Last 24 hours) at 07/12/2024 1830 Last data filed at 07/12/2024 1728 Gross per 24 hour Intake 1830.37 ml Output 600 ml Net 1230.37 ml --- Exam: GEN: Awake, alert and oriented x3. [...] intact SKIN: No rashes. No skin lesions. DATA: Complete Blood Count: Recent Labs 07/11/24221407/12/24 0500 WBC 5.4 6.0 RBC 3.52* 3.23* HGB 10.8* 9.8* HCT 33.7* 31.1* MCV 95.7 96.3 RDW 13.5 13.4 PLT 216 188 Recent Labs 07/11/24221407/12/24 0500 NEUTROABS 2.97 3.42 LYMPHOPCT 25 24 LYMPHSABS 1.35 1.43 MONOPCT 16* 15* BASOPCT 0 0 IMMGRAN 0 0 CMP: Lab Results Component Value Date GLUCOSE 104 (H) 07/12/2024 BUN 29 (H) 07/12/2024 CREATININE 1.2 (H) 07/12/2024 NA 143 07/12/2024 K 4.5 07/12/2024 CALCIUM 8.5 (L) 07/12/2024 CL 112 (H) 07/12/2024 CO2 22 07/12/2024 BILITOT 0.3 07/11/2024 ALKPHOS 86 07/11/2024 ALT 15 07/11/2024 AST 20 07/11/2024 UA: Lab Results Component Value Date COLORU Yellow 07/11/2024 WBCUA 50 TO 100 07/11/2024 RBCUA 0 TO 2 07/11/2024 LEUKOCYTESUR SMALL (A) 07/11/2024 GLUCOSEU NEGATIVE 07/11/2024 KETUA NEGATIVE 07/11/2024 PROTEINU NEGATIVE 07/11/2024 HGBUR NEGATIVE 07/11/2024 CASTUA NOT REPORTED 04/17/2020 BACTERIA 4+ (A) 07/11/2024 YEAST NOT REPORTED 04/17/2020 Lactic Acid: Lab Results Component Value Date/Time LACTA 0.8 07/11/2024 10:15 PM High Sensitivity Troponin: Recent Labs 07/11/24 2220 07/11/24 2338 TROPHS 29* 25* Radiology/Imaging: CT Head WO Contrast Final Result No acute intracranial abnormality. XR CHEST (2 VW) Final Result No acute cardiopulmonary process. ASSESSMENT: Principal Problem: Complicated UTI (urinary tract infection) Active Problems: TGA (transient global amnesia) Type 2 diabetes mellitus, without long-term current use of insulin (HCC) Hypertension Resolved Problems: * No resolved hospital problems. * PLAN: I agree with the plan as outlined in the [employer]/PA's note Disposition: Discharge plan is pending Please note that this chart was generated using voice recognition [employer] dictation software. Although every effort was made to ensure the accuracy of this automated nursing program coordinator, some errors in nursing program coordinator may have occurred. Victor M Ny MD 07/12/2024 6:30 PM Patient woke up anxious and fearful. She remains confused and is very suspicious of anything, such as drinks, being offered. Patient accuses and staff of lying to her. She can be reoriented but for short periods. remains at bedside. Call light and bedside table remain within reach. Care ongoing. Patient is resting in bed with eyes closed. Respirations are regular and even and patient shows no signs of distress. Will continue to monitor and assess. Patient was admitted to the floor and is A&O to self and place but not time or situation. remains at bedside. Patient is very anxious and cries easily. Likely due to her confusion, patient did not take well to her code status question and became tearful about her most recent code status of DNR-CCA. was unsure about what to do.Manager Internal will inform [employer]. Patient was able to stand pivot to the bed from the ER cot and tolerated fairly well. According to pt and , she normally ambulates independently or with a cane or walker at home. Vitals and assessment are complete. Manager Internal walked patient through the doctor's orders and the medications that would be administered tonight. Medications given in ER were also reviewed. Manager Internal encouraged patient to ask questions. Personal belongings are with patient and patient was oriented to the room and call light. Call light and bedside table are within reach. Manager Internal gave a basic explanation of how the patient's day would go tomorrow, and that a care team would be rounding some time in the morning. Report called to RAMONE Ruiz at this time. documented in this encounter [facility] 07-14-2024 Hospital Discharge instructions Corrine West - 07/14/2024 12:28 PM EDT Activity as tolerated Corrine West - 07/14/2024 12:29 PM EDT Good nutrition is important when healing from an illness, injury, or surgery. Follow any nutrition recommendations given to you during your hospital stay. If you were given an oral nutrition supplement while in the hospital, continue to take this supplement at home. You can take it with meals, in-between meals, and/or before bedtime. These supplements can be purchased at most local grocery stores, pharmacies, and chain [employer]-stores. If you have any questions about your diet or nutrition, call the hospital and ask for the dietitian. Diabetic diet Victor M Ny MD - 07/14/2024 5:34 AM EDT Continuity of Care Form Patient Name: Ever Davenportcollette : 1940 Admit date: 07/11/2024 Discharge date: Code Status Order: DNR-CCA Advance Directives: Admitting Physician: Victor M Ny MD PCP: Molina Ramos DO Discharging Nurse: Discharging Hospital Unit/Room#: 0314/0314-01 Discharging Unit Phone Number: Emergency Contact: Extended Emergency Contact Information Primary Emergency Contact: Jose Palmer Address: [address] Mobile Relation: Spouse Hearing or visual needs: None Other needs: None Preferred language: [place] District Medical Examiner needed? No Secondary Emergency Contact: Teo Bardales [facility] Relation: Child Hearing or visual needs: None Other needs: None Preferred language: [place] [employer] Medical Examiner needed? No Past Surgical History: Past Surgical History: Procedure Laterality Date ANKLE SURGERY Left APPENDECTOMY CARPAL TUNNEL RELEASE Bilateral CATARACT REMOVAL WITH IMPLANT Left CATARACT REMOVAL WITH IMPLANT Right 12/20/2017 Dr Dee CHOLECYSTECTOMY COLONOSCOPY HYSTERECTOMY (CERVIX STATUS UNKNOWN) OTHER SURGICAL HISTORY 09/02/2020 cerebral angiogram TX XCAPSL CTRC RMVL INSJ IO LENS PROSTH W/O ECP Right 12/20/2017 EYE CATARACT EMULSIFICATION IOL IMPLANT performed by Rocky Dee DO at [facility] OR Immunization History: Immunization History Administered Date(s) Administered COVID-19, PFIZER Bivalent, DO NOT Dilute, (age 12y+), IM, 30 mcg/0.3 mL 01/23/2022 COVID-19, PFIZER PURPLE top, DILUTE for use, (age 12 y+), 30mcg/0.3mL 02/03/2021 COVID-19, PFIZER, , (age 12y+), IM, 30mcg/0.3mL 11/08/2023 Influenza Vaccine, unspecified formulation 11/26/2017 Zoster Live (Zostavax) 01/26/2017 Active Problems: Patient Active Problem List Diagnosis Code TIA (transient ischemic attack) G45.9 Cerebral aneurysm I67.1 Stroke-like symptoms R29.90 Altered mental status R41.82 Received intravenous tissue plasminogen activator (tPA) in emergency department Z92.82 TGA (transient global amnesia) G45.4 Acute encephalopathy G93.40 Chest wall pain R07.89 Type 2 diabetes mellitus, without long-term current use of insulin (HCC) E11.9 Hypertension I10 Angina, 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 PSVT (paroxysmal supraventricular tachycardia) I47.10 History of TIA (transient ischemic attack) Z86.73 Complicated UTI (urinary tract infection) N39.0 Isolation/Infection: Isolation No Isolation Patient Infection Status None to display Nurse Assessment: Last Vital Signs: BP (!) 140/61 Pulse 74 Temp 97.8 F (36.6 C) (Temporal) Resp 18 Ht 1.651 m (5' 5 ) Wt 85.9 kg (189 lb 4.8 oz) SpO2 98% No BMI 31.50 kg/m Last documented pain score (0-10 scale): Pain Level: 0 Last Weight: Wt Readings from Last 1 Encounters: 07/14/24 85.9 kg (189 lb 4.8 oz) Mental Status: {IP PT MENTAL STATUS:} IV Access: { REFUGIO IV ACCESS:533585084} Nursing Mobility/ADLs: Walking {CHP DME ADLs:774190614} Transfer {CHP DME ADLs:130511274} Bathing {CHP DME ADLs:015552312} Dressing {CHP DME ADLs:859810786} Toileting {CHP DME ADLs:330376548} Feeding {CHP DME ADLs:648642101} Assessment Director {CHP DME ADLs:016298808} Med Delivery { REFUGIO MED Delivery:838761635} Wound Care Documentation and Therapy: Incision 12/20/17 Eye Right (Active) Number of days: 2397 Elimination: Continence: Bowel: {YES / NO:} Bladder: {YES / NO:} Urinary Catheter: {Urinary Catheter:177415389} Colostomy/Ileostomy/Ileal Conduit: {YES / NO:} Date of Last BM: Intake/Output Summary (Last 24 hours) at 07/14/2024 0534 Last data filed at 07/14/2024 0410 Gross per 24 hour Intake 3383.11 ml Output 1300 ml Net 2083.11 ml I/O last 3 completed shifts: In: 5151.5 [P.O.:1640; I.V.:3417.9; IV Piggyback:93.6] Out: 1600 [Urine:1600] Safety Concerns: { REFUGIO Safety Concerns:160863267} Impairments/Disabilities: {[facility]airments/Disabilities:122194 273} Nutrition Therapy: Current Nutrition Therapy: { REFUGIO Diet List:448953395} Routes of Feeding: {CHP DME Other Feedings:966289987} Liquids: {Field Health Officer liquid thickness:52422} Daily Fluid Restriction: {CHP DME Yes amt example:159155508} Last Modified Barium Swallow with Video (Video Swallowing Test): {Done Not Done Date:} Treatments at the Time of Hospital Discharge: Respiratory Treatments: Oxygen Therapy: {Therapy; copd oxygen:94264} Ventilator: { CC Vent List:315047892} Rehab Therapies: {THERAPEUTIC INTERVENTION:7993643243} Weight Bearing Status/Restrictions: { CC Weight Bearin} Other Medical Equipment (for information only, NOT a DME order): {EQUIPMENT:773998239} Other Treatments: Patient's personal belongings (please select all that are sent with patient): {CHP DME Belongings:037370531} RN SIGNATURE: {Esignature:945259018} CASE MANAGEMENT/SOCIAL WORK SECTION Inpatient Status Date: Readmission Risk Assessment Score: [facility] RISK OF UNPLANNED READMISSION 2.0 12 Total Score Discharging to Facility/ Agency Name: Address: Phone: Fax: Dialysis Facility (if applicable) Name: Address: Dialysis Schedule: Phone: Fax: Buffing Machine Operator/Tools Programmer signature: {Esignature:322755478} PHYSICIAN SECTION Prognosis: {Prognosis:2265101489} Condition at Discharge: { Patient Condition:526176872} Rehab Potential (if transferring to Rehab): {Prognosis:7717054024} Recommended Labs or Other Treatments After Discharge: Physician Certification: I certify the above information and transfer of Ever Palmer is necessary for the continuing treatment of the diagnosis listed and that she requires {Admit to Appropriate Level of Care:97059} for {GREATER/LESS:520229042} 30 days. Update Admission H&P: {CHP DME Changes in HandP:284234453} PHYSICIAN SIGNATURE: The following attachments cannot be sent through Care Everywhere.UTI (Urinary Tract Infection): Female (Malian)Cephalexin Oral Capsule (CEPHALEXIN - ORAL) (Malian)documented in this encounter [facility] 07-14-2024 Hospital course Narrative Images from the original note were not included. [address], [address] Discharge Summary NAME: Ever Palmer : 1940 Admit date: 07/11/2024 Discharge date: 07/14/24 Admitting Physician: Victor M Ny MD Primary Diagnosis on Admission: Present on Admission: Complicated UTI (urinary tract infection) Type 2 diabetes mellitus, without long-term current use of insulin (HCC) (Resolved) TGA (transient global amnesia) Hypertension Secondary Diagnoses: does not have any pertinent problems on file. Admission Condition: serious Discharged Condition: stable Hospital Course: The patient was admitted for the management of acute delirium secondary to suspected underlying UTI. Cultures were obtained and she was started empirically on IV antibiotics. She was transitioned to PO antibiotics. She worked with PT/OT while admitted and did well. She did have ongoing right sided headaches, with imaging/CTA being negative for acute Pathology. She will plan to have further OP follow-up with both ENT and Neurology. Today on day of discharge pt feels better with no further complaints. Vitals and Labs are at pts baseline. All consultants involved during this admission are agreeable to d/c. Labs will be repeated in 2 week's time and she will continue with PO Keflex. If there are any worsening or concerning signs or symptoms, patient will report to the ED and/or contact [facility] for immediate evaluation. Teach back method was used. All patient questions answered. Pt voiced understanding. Consults: None Significant Diagnostic/theraputic interventions: IVF, IV antibiotics, CT imaging Disposition: home Instructions to Patient: Follow up with Molina Ramos DO in 1-2 weeks Discharge Medications: Medication List START taking these medications cephALEXin 500 MG capsule Commonly known as: KEFLEX Take 1 capsule by mouth 4 times daily for 7 days CHANGE how you take these medications atorvastatin 40 MG tablet Commonly known as: LIPITOR Take 1 tablet by mouth daily What changed: when to take this CONTINUE taking these medications aspirin 81 MG tablet baclofen 10 MG tablet Commonly known as: LIORESAL cetirizine-psuedoephedrine 5-120 MG per extended release tablet Commonly known as: ZyrTEC-D lactulose 10 g packet Commonly known as: CEPHULAC metFORMIN 500 MG tablet Commonly known as: GLUCOPHAGE montelukast 10 MG tablet Commonly known as: SINGULAIR NONFORMULARY rOPINIRole 0.5 MG tablet Commonly known as: REQUIP spironolactone 25 MG tablet Commonly known as: ALDACTONE Where to Get Your Medications These medications were sent to [facility] [place] [address] [facility] - P [phone] - F [phone] [address] cephALEXin 500 MG capsule Send Copies to: Molina Ramos DO Patient Instructions: Activity: activity as tolerated Diet: cardiac diet Follow up with Molina Ramos DO in 1-2 weeks Follow-up with ENT and Neurology as directed CORE MEASURES on Discharge (if applicable) CHF: ELIZABETH, ARB or ARNI therapy: If not present/on discharge summary as noted above, then the patient declined. CHF: Betablocker therapy: If not present/on discharge summary as noted above, then the patient declined. ELIZABETH/ARB in CHF: N/A ASA in IA: N/A Statin in IA: N/A Statin in CVA: N/A Antiplatelet in CVA: N/A Total time spent on discharge services: 45 minutes Including the following activities: Evaluation and Management of patient Discussion with patient and/or surrogate about current care plan Coordination with Case Management and/or Tools Programmer Coordination of care with Consultants (if applicable) Coordination of care with Receiving Facility Physician (if applicable) Completion of DME forms (if applicable) Preparation of Discharge Summary Preparation of Medication Reconciliation Preparation of Discharge Prescriptions Please note that this chart was generated using voice recognition [employer] dictation software. Although every effort was made to ensure the accuracy of this automated nursing program coordinator, some errors in nursing program coordinator may have occurred. Victor M Ny MD 07/14/2024 12:24 PM documented in this encounter [facility] 03-26-2024 Hospital Discharge instructions Shabnam Baxter MD - 03/26/2024 6:15 PM EST Continue current medications as prescribed. Keflex as directed until complete. Follow-up with your primary care provider for reevaluation tomorrow as scheduled. Follow-up with neurology I did speak with the neurologist at [facility] they would be happy to see you but you may follow-up at neurology with [facility] send you been seen before for the same issue there. Please return immediately should you develop any severe headaches or any other acute concerns The following attachments cannot be sent through Care Everywhere.Altered Mental Status (Malian)documented in this encounter [facility] 03-26-2024 Note ADDENDUM: Results were reported to Dr. Baxter by radiology results communication at 3:27 p.m. on March 26, 2024. Electronically Signed by: ANGELITO ALFONSO on WedMar 26, 2024 3:32:28 PM EST EXAMINATION: CT [...] Alfonso MD 03/26/24 Edited Result - FINAL [facility] 02-17-2024 Note 1. Interval mild pro gression of L5 superior endplate fracture with 20% height loss. 2. Multilevel lumbar spondylosis. [facility] CONSOLID[facility] 01-21-2024 Hospital Discharge instructions Shabnam Baxter MD - 01/21/2024 4:50 PM EST Continue current medications as prescribed. Use [place] place of Tylenol for pain not controlled with Tylenol. Mbik-rwp-drapldv product such as IcyHot [place] balm Biofreeze or similar. Heat or ice for 5 to 10-minute intervals as desired for comfort. Follow-up with your primary care provider in 2 to 3 days for recheck. Please return immediately should develop any worsening symptoms or any other acute concerns The following attachments cannot be sent through Care Everywhere.Back: Strain (Malian)documented in this encounter [facility] 12-20-2023 History of Present illness Narrative [facility] Outpatient Physical Therapy Daily Note Patient: Ever Palmer : 1940 CSN #: [id number] Referring Physician: Molina Ramos DO Date: 12/20/2023 [...] Exercise 3: retractions/LAE bTB x15, BTB palloff ea Exercise 5: ASU/LSU x15 ea Exercise [...] Post Treatment Pain: 5/10 Plan Plan Frequency: 2 Plan weeks: 4 [...] able to complete 5 sit/stands with no correspondent and no LOB to improve functional strength.-progressing Offset Duplicating Machine Operator Goals Time Frame for Offset Duplicating Machine Operator Goals : 6 weeks Senior Living Goal 1: Patient to be independent and compliant with HEP.-progressing Senior Living Goal 2: Patient to have improved core and B hip strength >/=4/5 grossly for improved lumbar stability.-met Offset Duplicating Machine Operator Goal 3: Patient to have improved B shoulder strength >/=4/5 grossly all planes for improved postural control.-met Senior Living Goal 4: Patient to report ability to stand/walk >/=15minutes with no increase in back pain and no fatigue to improve endurance and return to PLOF.-met Minutes Tracking: Time In: 1318 Time Out: 1410 Minutes: 52 Moraima Dela Cruz, DARIO Date: 12/20/2023 documented in this encounter [facility] 12-17-2023 History of Present illness Narrative [facility] Outpatient Physical Therapy Daily Note Patient: Ever Palmer : 1940 CSN #: [id number] Referring Physician: Molina Ramos DO Date: 12/17/2023 [...] Exercise 3: retractions/LAE bTB x15, GTB palloff [id number] ea - no palloff press Exercise 5: [...] able to complete 5 sit/stands with no correspondent and no LOB to improve functional strength.-progressing Offset Duplicating Machine Operator Goals Time Frame for Offset Duplicating Machine Operator Goals : 6 weeks Senior Living Goal 1: Patient to be independent and compliant with HEP.-progressing Senior Living Goal 2: Patient to have improved core and B hip strength >/=4/5 grossly for improved lumbar stability.-met Senior Living Goal 3: Patient to have improved B shoulder strength >/=4/5 grossly all planes for improved postural control.-met Senior Living Goal 4: Patient to report ability to stand/walk >/=15minutes with no increase in back pain and no fatigue to improve endurance and return to PLOF.-met Minutes Tracking: Time In: 1301 Time Out: 1348 Minutes: 47 Timed Code Treatment Minutes: 46 Minutes Dario Ruiz PT, DPT Date: 12/17/2023 documented in this encounter [facility] 12-06-2023 History of Present illness Narrative [facility] Outpatient Physical Therapy Daily Note Patient: Ever Palmer : 1940 CSN #: [id number] Referring Physician: Molina Ramos DO Date: 12/06/2023 Treatment Diagnosis: Back pain, general weakness PT Insurance Information: Medicare Total # of Visits Approved: 22 Per Physician Order Total # of Visits to Date: 15 No Show: 0 Canceled Appointment: 0 12/31/23 Plan of Care/Recert Due Pre-Treatment Pain: 6/10 Subjective: Pt reports shes really got it in the back today . Pt rates current pain a 6/10. Exercises: Exercise 2: Scifit 10 min L3.5 Exercise 3: retractions/LAE bTB x15, GTB palloff [id number] ea - no palloff press Exercise 4: [...] pt required further clarification. Post Treatment Pain: 4/10 Plan Plan Frequency: 2 Plan weeks: 4 [...] able to complete 5 sit/stands with no correspondent and no LOB to improve functional strength.-progressing Senior Living Goals Time Frame for Senior Living Goals : 6 weeks Offset Duplicating Machine Operator Goal 1: Patient to be independent and compliant with HEP.-progressing Offset Duplicating Machine Operator Goal 2: Patient to have improved core and B hip strength >/=4/5 grossly for improved lumbar stability.-met Offset Duplicating Machine Operator Goal 3: Patient to have improved B shoulder strength >/=4/5 grossly all planes for improved postural control.-progressing Offset Duplicating Machine Operator Goal 4: Patient to report ability to stand/walk >/=15minutes with no increase in back pain and no fatigue to improve endurance and return to PLOF.-met Minutes Tracking: Time In: 1317 Time Out: 1400 Minutes: 43 Timed Code Treatment Minutes: 41 Minutes Quincy Kumar PTA Date: 12/06/2023 documented in this encounter [facility] 12-03-2023 History of Present illness Narrative [facility] Outpatient Physical Therapy Daily Note Patient: Ever Palmer : 1940 CSN #: [id number] Referring Physician: Molina Ramos DO Date: 12/03/2023 [...] Exercise 3: retractions/LAE bTB x15, GTB palloff [id number] ea - no palloff press Exercise 6: [...] able to complete 5 sit/stands with no correspondent and no LOB to improve functional strength.-progressing Senior Living Goals Time Frame for Offset Duplicating Machine Operator Goals : 6 weeks Offset Duplicating Machine Operator Goal 1: Patient to be independent and compliant with HEP.-progressing Senior Living Goal 2: Patient to have improved core and B hip strength >/=4/5 grossly for improved lumbar stability.-met Offset Duplicating Machine Operator Goal 3: Patient to have improved B shoulder strength >/=4/5 grossly all planes for improved postural control.-progressing Offset Duplicating Machine Operator Goal 4: Patient to report ability to stand/walk >/=15minutes with no increase in back pain and no fatigue to improve endurance and return to PLOF.-met Minutes Tracking: Time In: 1303 Time Out: 1344 Minutes: 41 Moraima Dela Cruz, TENANT COORDINATOR Date: 12/03/2023 documented in this encounter [facility] 11-29-2023 History of Present illness Narrative [facility] Outpatient Physical Therapy Daily Note Patient: Ever Palmer : 1940 CSN #: [id number] Referring Physician: Molina Ramos DO Date: 11/29/2023 Diagnosis: Dorsal lumbar pain and spasm, M54.9, M62.830 Treatment Diagnosis: Back pain, general weakness PT Insurance Information: Medicare Total # of Visits Approved: 12 Per Physician Order Total # of Visits to Date: 13 No Show: 0 Canceled Appointment: 0 12/03/23 Plan of Care/Recert Due Pre-Treatment Pain: 3-05/18 Subjective: Pt reports B shoulder pain 10, LBP 3-410. Pt states she is discouraged with her progress, thinks she should be getting better quicker. Exercises: Exercise 1: HEP: shoulder rolls/retracs, supine PPT's, marching, glut sets, supine HAB's with orange band, supine B pec stretch Exercise 2: Scifit 10 min L3.5 Exercise 3: retractions/LAE bTB x15, GTB palloff [id number] ea - no palloff press Exercise 4: [...] exercises, fatigues quickly. Continue as pt tolerates. [place] Back Pain Disability Scale Get out of [...] carry a heavy suitcase: Unable to do [place] Total Score: 59 Current Total Score: 59 [...] pt required further clarification. Post Treatment Pain: 3-4 Plan Plan Frequency: 3 Plan weeks: 4 [...] able to complete 5 sit/stands with no correspondent and no LOB to improve functional strength.-progressing Senior Living Goals Time Frame for Senior Living Goals : 6 weeks Senior Living Goal 1: Patient to be independent and compliant with HEP.-progressing Offset Duplicating Machine Operator Goal 2: Patient to have improved core and B hip strength >/=4/5 grossly for improved lumbar stability.-met Senior Living Goal 3: Patient to have improved B shoulder strength >/=4/5 grossly all planes for improved postural control.-progressing Senior Living Goal 4: Patient to report ability to stand/walk >/=15minutes with no increase in back pain and no fatigue to improve endurance and return to PLOF.-met Minutes Tracking: Time In: 1403 Time Out: 1446 Minutes: 43 Moraima Dela Cruz, TENANT COORDINATOR Date: 11/29/2023 documented in this encounter [facility] 11-26-2023 History of Present illness Narrative [facility] Outpatient Physical Therapy Daily Note Patient: Ever Palmer : 1940 CSN #: [id number] Referring Physician: Molina Ramos DO Date: 11/26/2023 Diagnosis: Dorsal lumbar pain and spasm, M54.9, M62.830 Treatment Diagnosis: Back pain, general weakness PT Insurance Information: Medicare Total # of Visits Approved: 12 Per Physician Order Total # of Visits to Date: 12 No Show: 0 Canceled Appointment: 0 12/03/23 Plan of Care/Recert Due Pre-Treatment Pain: 5/10 Subjective: Pt reports 5/10 LBP and B [...] able to complete 5 sit/stands with no correspondent and no LOB to improve functional strength.-progressing Senior Living Goals Time Frame for Senior Living Goals : 6 weeks Senior Living Goal 1: Patient to be independent and compliant with HEP.-progressing Offset Duplicating Machine Operator Goal 2: Patient to have improved core and B hip strength >/=4/5 grossly for improved lumbar stability.-met Senior Living Goal 3: Patient to have improved B shoulder strength >/=4/5 grossly all planes for improved postural control.-progressing Offset Duplicating Machine Operator Goal 4: Patient to report ability to stand/walk >/=15minutes with no increase in back pain and no fatigue to improve endurance and return to PLOF.-met Minutes Tracking: Time In: 1018 Time Out: 1100 Minutes: 42 Moraima Dela Cruz PTA Date: 11/26/2023 documented in this encounter [facility] 11-24-2023 History of Present illness Narrative [facility] Outpatient Physical Therapy Daily Note Patient: Ever Palmer : 1940 CSN #: [id number] Referring Physician: Molina Ramos DO Date: 11/24/2023 Diagnosis: Dorsal lumbar pain and spasm, M54.9, M62.830 Treatment Diagnosis: Back pain, general weakness PT Insurance Information: Medicare Total # of Visits Approved: 12 Per Physician Order Total # of Visits to Date: 11 No Show: 0 Canceled Appointment: 0 12/03/23 Plan of Care/Recert Due Pre-Treatment Pain: 3-05/18 Subjective: Pt reports normal LBP 3-05/18. Pt states she was able to take her shirt off by herself after the last visit. Exercises: Exercise 1: HEP: shoulder rolls/retracs, supine PPT's, marching, glut sets, supine HAB's with orange band, supine B pec stretch Exercise 2: Scifit 10 min L3.5 Exercise 3: retractions/LAE bTB x15, GTB palloff [id number] ea - no palloff press Exercise 5: [...] able to complete 5 sit/stands with no correspondent and no LOB to improve functional strength.-progressing Offset Duplicating Machine Operator Goals Time Frame for Offset Duplicating Machine Operator Goals : 6 weeks Offset Duplicating Machine Operator Goal 1: Patient to be independent and compliant with HEP.-progressing Senior Living Goal 2: Patient to have improved core and B hip strength >/=4/5 grossly for improved lumbar stability.-met Offset Duplicating Machine Operator Goal 3: Patient to have improved B shoulder strength >/=4/5 grossly all planes for improved postural control.-progressing Senior Living Goal 4: Patient to report ability to stand/walk >/=15minutes with no increase in back pain and no fatigue to improve endurance and return to PLOF.-met Minutes Tracking: Time In: 1313 Time Out: 1356 Minutes: 43 Moraima Dela Cruz, TENANT COORDINATOR Date: 11/24/2023 documented in this encounter [facility] 11-12-2023 History of Present illness Narrative [facility] Outpatient Physical Therapy Daily Note Patient: Ever Palmer : 1940 CSN #: [id number] Referring Physician: Molina Ramos DO Date: 11/12/2023 Diagnosis: Dorsal lumbar pain and spasm, M54.9, M62.830 Treatment Diagnosis: Back pain, general weakness PT Insurance Information: Medicare Total # of Visits Approved: 12 Per Physician Order Total # of Visits to Date: 6 No Show: 0 Canceled Appointment: 0 12/03/23 Plan of Care/Recert Due Pre-Treatment Pain: 4-5/10 Subjective: Pt states her back is a little better today, 4-5/10 pain. Pt states she is very tired and weak. Pt states she has noticed the last couple days she has been feeling weaker. Exercises: Exercise 1: HEP: shoulder rolls/retracs, supine PPT's, marching, glut sets, supine HAB's with orange band, supine B pec stretch Exercise 2: Scifit 10 min L1 Exercise 3: retractions/LAE GTB x15, GTB palloff [id number] ea Exercise 5: ASU/LSU x10 ea Exercise [...] able to complete 5 sit/stands with no correspondent and no LOB to improve functional strength.-progressing Senior Living Goals Time Frame for Offset Duplicating Machine Operator Goals : 6 weeks Senior Living Goal 1: Patient to be independent and compliant with HEP.-progressing Senior Living Goal 2: Patient to have improved core and B hip strength >/=4/5 grossly for improved lumbar stability.-progressing Offset Duplicating Machine Operator Goal 3: Patient to have improved B shoulder strength >/=4/5 grossly all planes for improved postural control.-progressing Offset Duplicating Machine Operator Goal 4: Patient to report ability to stand/walk >/=15minutes with no increase in back pain and no fatigue to improve endurance and return to PLOF.-progressing Minutes Tracking: Time In: 1301 Time Out: 1345 Minutes: 44 Moraima Dela Cruz PTA Date: 11/12/2023 documented in this encounter [facility] 11-08-2023 History of Present illness Narrative [facility] Outpatient Physical Therapy Daily Note Patient: Ever Palmer : 1940 CSN #: [id number] Referring Physician: Molina Ramos DO Date: 11/08/2023 [...] Exercise 3: retractions/LAE GTB x15, GTB palloff [id number] ea Exercise 4: Sink exercises x15 ea [...] able to complete 5 sit/stands with no correspondent and no LOB to improve functional strength.-progressing Offset Duplicating Machine Operator Goals Time Frame for Offset Duplicating Machine Operator Goals : 6 weeks Offset Duplicating Machine Operator Goal 1: Patient to be independent and compliant with HEP. Offset Duplicating Machine Operator Goal 2: Patient to have improved core and B hip strength >/=4/5 grossly for improved lumbar stability. Offset Duplicating Machine Operator Goal 3: Patient to have improved B shoulder strength >/=4/5 grossly all planes for improved postural control. Senior Living Goal 4: Patient to report ability to stand/walk >/=15minutes with no increase in back pain and no fatigue to improve endurance and return to PLOF. Minutes Tracking: Time In: 1316 Time Out: 1408 Minutes: 52 Moraima Dela Cruz, TENANT COORDINATOR Date: 11/08/2023 documented in this encounter [facility] 2023 History of Present illness Narrative [facility] Outpatient Physical Therapy Daily Note Patient: Ever Palmer : 1940 CSN #: [id number] Referring Physician: Molina Ramos DO Date: 2023 [...] able to complete 5 sit/stands with no correspondent and no LOB to improve functional strength. Offset Duplicating Machine Operator Goals Time Frame for Offset Duplicating Machine Operator Goals : 6 weeks Offset Duplicating Machine Operator Goal 1: Patient to be independent and compliant with HEP. Offset Duplicating Machine Operator Goal 2: Patient to have improved core and B hip strength >/=4/5 grossly for improved lumbar stability. Offset Duplicating Machine Operator Goal 3: Patient to have improved B shoulder strength >/=4/5 grossly all planes for improved postural control. Senior Living Goal 4: Patient to report ability to stand/walk >/=15minutes with no increase in back pain and no fatigue to improve endurance and return to PLOF. Minutes Tracking: Time In: 1316 Time Out: 1400 Minutes: 44 Moraima Jose De Jesus, TENANT COORDINATOR Date: 2023 documented in this encounter [facility] 10-21-2021 Hospital Discharge instructions Eliecer Burris MD [...] be sent through Care Everywhere.Blood Pressure: Elevated (Malian)documented in this encounter [facility] Work Phone: 10-05-2021 Hospital Discharge instructions Eliecer Burris MD - 10/05/2021 5:27 PM EDT Please follow-up with your primary care physician tomorrow. The neurologist has recommended that you have an echocardiogram; this will need to be scheduled by your primary care physician. The following attachments cannot be sent through Care Everywhere.UTI (Urinary Tract Infection): Female (Malian)Dysarthria: General Info (Malian)documented in this encounter [facility] [employer] Phone: 03-04-2021 Note [facility] Vascular Lower Extremities DVT Study Procedure Patient Name SPENCER Date of Study 03/03/2021 EVER Mckay Date of 1940 Gender Female Age 80 year(s) Race Room Number Corporate ID [id number] # Patient Acct [id number] # MR # [id number] Geophysical Party Chief Katie Jackson RVT Interpreting Physician Alissa Marx Referring Referring Physician Alissa Marx Nurse Practitioner Additional Comments REsults were reported to Dr. Marx's office 03/03/2021 @ 0935. Procedure Type of Study: Veins: Lower Extremities [...] + +--- ------+------+ (more content not included)... [facility] 01-21-2021 History of Present illness Narrative [facility] Outpatient Physical Therapy Daily Note Patient: Ever Palmer : 1940 CSN #: [id number] Referring Practitioner: Molina Ramos DO Referral Date [...] pt required further clarification. Post Treatment Pain: 03/20 Plan Times per week: 1-2 Plan weeks: [...] decrease stress on cervical spine - Met alf goals Time Frame for emt intermediate goals : 6 weeks emt intermediate goal 1: Pt will be independent and compliant with HEP. emt intermediate goal 2: Pt will improve L cervical rotation to be within 5* of R cervical rotation to improve functional mobility. emt intermediate goal 3: Pt will perform TUG in </= 10 seconds to decrease fall risk.- progressing emt intermediate goal 4: Pt will demonstrate ability to perform 5 sit to stands with hands on thighs to improve LE functional strength. Minutes Tracking: Time In: 930 Time Out: 1030 Minutes: 59 Timed Code Treatment Minutes: 43 Minutes Quincy Kumar, TENANT COORDINATOR Date: 01/21/2021 documented in this encounter [employer] Phone: 01-13-2021 History of Present illness Narrative [facility] Outpatient Physical Therapy Daily Note Patient: Ever Palmer : 1940 CSN #: [id number] Referring Practitioner: Molina Ramos DO Referral Date [...] decrease stress on cervical spine - Met emt intermediate goals Time Frame for emt intermediate goals : 6 weeks emt intermediate goal 1: Pt will be independent and compliant with HEP. alf goal 2: Pt will improve L cervical rotation to be within 5* of R cervical rotation to improve functional mobility. emt intermediate goal 3: Pt will perform TUG in </= 10 seconds to decrease fall risk.- progressing alf goal 4: Pt will demonstrate ability to perform 5 sit to stands with hands on thighs to improve LE functional strength. Minutes Tracking: Time In: 1045 Time Out: 1139 Minutes: 54 Timed Code Treatment Minutes: 53 Minutes Ford Marsh Date: 01/13/2021 [facility] History of Present illness Narrative [facility] Outpatient Physical Therapy Daily Note Patient: Ever Palmer : 1940 CSN #: [id number] Referring Practitioner: Molina Ramos DO Referral Date [...] to stands with hands on thighs, meeting penitentiary goal. Pt performs TUG x2, with best [...] decrease stress on cervical spine - Met alf goals Time Frame for emt intermediate goals : 6 weeks emt intermediate goal 1: Pt will be independent and compliant with HEP. alf goal 2: Pt will improve L cervical rotation to be within 5* of R cervical rotation to improve functional mobility. emt intermediate goal 3: Pt will perform TUG in </= 10 seconds to decrease fall risk.- progressing alf goal 4: Pt will demonstrate ability to perform 5 sit to stands with hands on thighs to improve LE functional strength. Minutes Tracking: Time In: 1052 Time Out: 1155 Minutes: 63 Timed Code Treatment Minutes: 60 Minutes Darlin Ferrer PT, DPT Date: 01/06/2021 documented in this encounter [employer] Phone: 12-24-2020 History of Present illness Narrative [facility] Outpatient Physical Therapy Daily Note Patient: Ever Palmer : 1940 CSN #: [id number] Referring Practitioner: Molina Ramos DO Referral Date [...] decrease stress on cervical spine - Met alf goals Time Frame for emt intermediate goals : 6 weeks emt intermediate goal 1: Pt will be independent and compliant with HEP. emt intermediate goal 2: Pt will improve L cervical rotation to be within 5* of R cervical rotation to improve functional mobility. emt intermediate goal 3: Pt will perform TUG in </= 10 seconds to decrease fall risk. emt intermediate goal 4: Pt will demonstrate ability to perform 5 sit to stands with hands on thighs to improve LE functional strength. Minutes Tracking: Time In: 1015 Time Out: 1117 Minutes: 62 Timed Code Treatment Minutes: 62 Minutes Delores Palma PT, DPT Date: 12/24/2020 documented in this encounter [employer] Phone: 12-23-2020 History of Present illness Narrative [facility] Outpatient Physical Therapy Daily Note Patient: Ever Palmer : 1940 CSN #: [id number] Referring Practitioner: Molina Ramos DO Referral Date [...] pt required further clarification. Post Treatment Pain: 02/17 Plan Times per week: 1-2 Plan weeks: [...] strengthening to decrease stress on cervical spine. emt intermediate goals Time Frame for emt intermediate goals : 6 weeks alf goal 1: Pt will be independent and compliant with HEP. emt intermediate goal 2: Pt will improve L cervical rotation to be within 5* of R cervical rotation to improve functional mobility. emt intermediate goal 3: Pt will perform TUG in </= 10 seconds to decrease fall risk. alf goal 4: Pt will demonstrate ability to perform 5 sit to stands with hands on thighs to improve LE functional strength. Minutes Tracking: Time In: 1014 Time Out: 1115 Minutes: 61 Timed Code Treatment Minutes: 59 Minutes Quincy Kumar PTA Date: 12/23/2020 documented in this encounter [employer] Phone: 12-17-2020 History of Present illness Narrative [facility] Outpatient Physical Therapy Daily Note Patient: Ever Palmer : 1940 CSN #: [id number] Referring Practitioner: Molina Ramos DO Referral Date [...] strengthening to decrease stress on cervical spine. emt intermediate goals Time Frame for emt intermediate goals : 6 weeks emt intermediate goal 1: Pt will be independent and compliant with HEP. alf goal 2: Pt will improve L cervical rotation to be within 5* of R cervical rotation to improve functional mobility. alf goal 3: Pt will perform TUG in </= 10 seconds to decrease fall risk. alf goal 4: Pt will demonstrate ability to perform 5 sit to stands with hands on thighs to improve LE functional strength. 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 Word list retention - category inclusion: 19/22 increased to 22/22 with min verbal cues [...] ST: Discharge recommendations: [] Inpatient Rehab [] Senior Living Facility [] Outpatient Therapy [] Follow up at trauma clinic [x] Other: Further therapy recommended at discharge. 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 Type of occupation: [employer] Additional Comments: pt reported stays in apartment [...] Plan Times per week: 2-3x/wk AM-PAC Score [facility] Inpatient Daily Activity Raw Score: 20 (09/03/201452) [facility] Inpatient ADL T-Scale Score : 42.03 (09/03/201452) ADL Inpatient [facility] 0-100% Score: 38.32 (09/03/201452) ADL Inpatient [facility] G-Code Modifier : CJ (09/03/201452) Goals Short [...] Minutes Glenny Rabago OTR/L Physical Therapy Facility/Department: [address] Initial Assessment NAME: Ever Palmer : 1940 Chief Complaint Patient presents [...] Ambulation Assistance: Independent Transfer Assistance: Independent Active Agronomy Instructor: Yes Mode of Transportation: Car 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 Speech Language Pathology Facility/Department: [address] Initial Speech/Language/Cognitive Assessment NAME: Ever Palmer [...] continued therapy at this time. 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 Care of the catheter site For [...] Where can you learn more? Go to [email or web address] and sign in to your [employer] account. Enter O249 in the Search Health Information box to learn more about Brain Angiogram: What to Expect at Home. If you do not have an account, please click on the Sign Up Now link. Current as of: December 13, 2019 Content Version: 12.9 MustHaveMenus. Care instructions adapted under license by [employer]. If you have questions about a medical condition or this instruction, always ask your healthcare professional. [employer]Have[employer] disclaims any warranty or liability for your use of this information. Learning About Thrombolytic Treatment for Stroke What is thrombolytic treatment? Thrombolytics are medicines that dissolve blood clots. Most strokes are caused by a blood clot. This kind of stroke is called an ischemic (say mec-TYM-mwla ) stroke. For an ischemic stroke, this [...] Where can you learn more? Go to [email or web address] and sign in to your [employer] account. Enter E575 in the Search Health Information box to learn more about Learning About Thrombolytic Treatment for Stroke. If you do not have an account, please click on the Sign Up Now link. Current as of: October 09, 2019 Content Version: 12.9 MustHaveMenus. Care instructions adapted under license by [employer]. If you have questions about a medical condition or this instruction, always ask your healthcare professional. MustHaveMenus disclaims any warranty or liability for your use of this information. documented in this encounter [employer] Work Phone: 09-03-2020 Hospital Discharge instructions Chandrika [...] your doctor if you can take an bwxl-ibm-ldivhrh medicine. Care of the catheter site For [...] Where can you learn more? Go to [email or web address] and sign in to your [employer] account. Enter O249 in the Search Health Information box to learn more about Brain Angiogram: What to Expect at Home. If you do not have an account, please click on the Sign Up Now link. Current as of: December 13, 2019 Content Version: 01.16 MustHaveMenus. Care instructions adapted under license by Chip[employer]. If you have questions about a medical condition or this instruction, always ask your healthcare professional. MustHaveMenus disclaims any warranty or liability for your use of this information. Learning About Thrombolytic Treatment for Stroke What is thrombolytic treatment? Thrombolytics are medicines that dissolve blood clots. Most strokes are caused by a blood clot. This kind of stroke is called an ischemic (say srf-ACP-nbhp ) stroke. For an ischemic stroke, this [...] Where can you learn more? Go to [email or web address] and sign in to your [employer] account. Enter E575 in the Search Health Information box to learn more about Learning About Thrombolytic Treatment for Stroke. If you do not have an account, please click on the Sign Up Now link. Current as of: October 09, 2019 Content Version: 12.9 MustHaveMenus. Care instructions adapted under license by Chipolo. If you have questions about a medical condition or this instruction, always ask your healthcare professional. [employer]Have[employer]us disclaims any warranty or liability for your use of this information. documented in this encounter [employer] Phone: 09-02-2020 History of Present illness Narrative Patient admitted, consent signed and questions answered. Patient ready for procedure. Call light to reach with side rails up 2 of 2.Family at bedside with patient. documented in this encounter [employer] Phone: Evaluation note Diagnosis Nausea vomiting and diarrhea- Primary Nausea with vomiting Other complicated headache syndrome Dehydration documented in this encounter [employer] Phone: evaluation note* Diagnosis Altered mental status, unspecified altered mental status type- Primary Stroke-like symptoms Other symptoms involving nervous and musculoskeletal systems Received intravenous tissue plasminogen activator (tPA) in emergency department documented in this encounter [employer] Phone: evaluation note* Diagnosis Cerebral aneurysm Cerebral aneurysm, nonruptured TGA (transient global amnesia) Transient global amnesia documented in this encounter [employer] Phone: evaluation note* Diagnosis Left leg swelling documented in this encounter [employer] Phone: evaluation note* Diagnosis Dysarthria- Primary Acute cystitis without hematuria Acute cystitis documented in this encounter [employer] Phone: evaluation note* Diagnosis Breast cancer screening by mammogram documented in this encounter [employer] Phone: evaluation note* Diagnosis Pain Generalized pain Swelling Edema [facility] Phone: evaluation note* Diagnosis Elevated blood pressure reading- Primary Elevated blood pressure reading without diagnosis of hypertension documented in this encounter [facility] Phone: evaluation note* Diagnosis Strain of lumbar region, initial encounter- Primary [facility] [place] [facility]* Diagnosis Somatic dysfunction of lumbar region Nonallopathic lesion of lumbar region, not elsewhere classified Lumbar radiculopathy Thoracic or lumbosacral neuritis or radiculitis, unspecified documented [facility] [place] [facility]* Diagnosis Altered mental status, unspecified altered mental status type- Primary Abnormal CT scan Other nonspecific (abnormal) findings on radiological and other examinations of body structure Urinary tract infection without hematuria, site unspecified documented [facility] this [facility] [place] [facility]* Diagnosis Complicated UTI (urinary tract infection)- Primary Urinary tract infection, site not specified Transient alteration of awareness Right ear pain Otalgia, unspecified Complicated UTI (urinary tract infection) Urinary tract infection, site not specified History of TIA (transient ischemic attack) Transient ischemic attack (TIA), and cerebral infarction without residual deficits Type 2 diabetes mellitus, without long-term current use of insulin ([facility]) TGA (transient global amnesia) Transient global amnesia Hypertension Unspecified essential hypertension [facility] this [facility] [place] [facility]* Diagnosis Lower extremity edema Edema Lightheaded Dizziness and giddiness Dizziness Dizziness and giddiness History of TIA (transient ischemic attack) Transient ischemic attack (TIA), and cerebral infarction without residual deficits Cerebral arterial aneurysm Cerebral aneurysm, nonruptured Essential hypertension Unspecified essential hypertension Mixed hyperlipidemia TIA (transient ischemic attack) Unspecified transient cerebral ischemia Complicated UTI (urinary tract infection) Urinary tract infection, site not specified documented in this [facility] [place] [facility]* Diagnosis Thoracic spondylosis without myelopathy documented in this [facility] [place] [facility]* Diagnosis General weakness- Primary Other malaise and fatigue Neck strain, initial encounter documented [facility] this [facility]charge instructions* Attachments The following attachments cannot be sent through Care Everywhere. * Dehydration (Malian) * Nausea and Vomiting (Malian) [facility] Phone: Reason for Referral Status Reason Specialty Diagnoses / Procedures Referre d By Contact Referred To Contact Open EKG Diagnoses TIA (transient ischemic attack) Procedures Half-Way Continuous Cardiac Event Monitor Eunice Guerra, 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 [address] [place] [address] Mthz Ekg [address] [place] [address] Status Reason Specialty Diagnoses / Procedures Referre d By Contact Referred To Contact Closed Radiology Diagnoses Cerebral aneurysm Procedures IR ANGIOGRAM CAROTID CEREBRAL BILATERAL Kristina Lomax MD [address] [facility] [facility] [address] [place] [address] Specialty Diagnoses / Procedures Referred By Contac t Referred To Contact Radiology Diagnoses Left leg swelling Procedures VL DUP LOWER EXTREMITY VENOUS LEFT Alissa Marx MD [address] [place] [address] Referral ID Status Reason Start Date Expiration Date Visits Re quested Visits Authorized [id number] Open 03/03/2021 03/03/2022 1 1 Specialty Diagnoses / Procedures Referred By Contac t Referred To Contact Diagnoses Dysarthria Procedures Echo 2d w doppler w color w contrast Eliecer Burris MD [address] [place] [address] Referral ID Status Reason Start Date Expiration Date Visits Re quested Visits Authorized [id number] Open 10/06/2021 10/06/2022 1 1 Specialty Diagnoses / Procedures Referred By Contac t Referred To Contact Radiology Diagnoses Breast cancer screening by mammogram Procedures [facility] ESME DIGITAL SCREEN SELF REFERRAL W OR WO CAD BILATERAL Molina Ramos, DO [address] [place] [address] Referral ID Status Reason Start Date Expiration Date Visits Re quested Visits Authorized [id number] Closed 10/10/2021 10/10/2022 1 1 Specialty Diagnoses / Procedures Referred By Contac t Referred To Contact Radiology Diagnoses Somatic dysfunction of lumbar region Lumbar radiculopathy Procedures CT LUMBAR SPINE WO CONTRAST Sharath Garcia DC [address] [place] [address] Referral ID Status Reason Start Date Expiration Date V isits Requested Visits Authorized [id number] Not Required - RTA 02/15/2024 02/14/2025 1 1 Hospital Course * Eunice Guerra, 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 - 04/19/2020 12:00 PM EST Discharge Summary [...] 04/17/2020 2d Echo Ltd Result Date: 04/18/2020 [facility] Transthoracic Echocardiography Report (TTE) Patient Name SPENCER Date of Study 04/18/2020 EVER Mckay Date of 1940 Gender Female Age 79 year(s) Race Room Number 0315 Height: 63 inch, 160.02 cm Corporate ID [id number] Weight: 163 pounds, 73.9 kg # Patient [id number] BSA: 1.77 m^2 BMI: 28.87 # kg/m^2 MR # [id number] Geophysical Party Chief Rylee Verma Interpreting Physician Alissa Marx Referring Nurse Practitioner Interpreting Referring Physician Alissa Marx Type of Study TTE procedure:2D Echocardiogram, Bubble Study. Procedure Date Date: 04/18/2020 Start: 02:58 PM Study Location: [facility] / Tech. Comments: TIA, Bubble study PMHX; [...] HISTORY: ORDERING SYSTEM PROVIDED HISTORY: TIA TECHNOLOGIST JACY ANDERSON HISTORY: TIA Decision Support Exception->Emergency Medical Condition [...] Discharge Medications: Ever Palmer Home Medication Instructions ANITA:[id number] Printed on:04/19/20 1209 Medication Information amLODIPine (NORVASC) [...] applicable) ELIZABETH/ARB in CHF: NA Statin in IA: NA ASA in IA: NA Statin in CVA: NA Antiplatelet in CVA: NA Total time spent on discharge services: 35 minutes Including the following activities: Evaluation and Management of patient Discussion with patient and/or surrogate about current care plan Coordination with Case Management and/or Tools Programmer Coordination of care with Consultants (if applicable) Coordination of care with Receiving Facility Physician (if applicable) Completion of DME forms (if applicable) Preparation of Discharge Summary Preparation of Medication Reconciliation Preparation of Discharge Prescriptions Signed: Eunice Guerra APRN, [employer]-C 04/19/2020, 12:09 PM Associated attestation - Marcelino Clifford MD - 04/19/2020 12:57 PM EST Marcelino Clifford M.D. Discharge Summary Attestation 04/19/20 I personally evaluated and examined the patient [id number] in conjunction with the PA/[employer] and agree with the management and dispostition of the patient. Please see the PA/[employer]'s note for full details.My eason findings are: [...] care plan Coordination with Case Management and/or Tools Programmer Coordination of care with Consultants (if applicable) Coordination of care with Receiving Facility Physician (if applicable) Completion of DME forms (if applicable) Preparation of Discharge Summary Preparation of Medication Reconciliation Preparation of Discharge Prescriptions Marcelino Clifford M.D. 04/19/2020 12:57 PM * Eunice Guerra, 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 - 04/18/2020 6:33 PM EST Discharge Summary [...] 04/17/2020 2d Echo Ltd Result Date: 04/18/2020 [facility] Transthoracic Echocardiography Report (TTE) Patient Name SPENCER Date of Study 04/18/2020 EVER A Date of 1940 Gender Female Age 79 year(s) Race Room Number 0315 Height: 63 inch, 160.02 cm Corporate ID [id number] Weight: 163 pounds, 73.9 kg # Patient [id number] BSA: 1.77 m^2 BMI: 28.87 # kg/m^2 MR # [id number] Geophysical Party Chief BayronRylee Interpreting Physician Alissa Marx Fellow Referring Nurse Practitioner Interpreting Referring Physician Alissa Marx Fellow Type of Study TTE procedure:2D Echocardiogram, Bubble Study. Procedure Date Date: 04/18/2020 Start: 02:58 PM Study Location: [facility] History / Tech. Comments: TIA, [...] Discharge Medications: Ever Palmer Home Medication Instructions ANITA:[id number] Printed on:04/18/20 8855 Medication Information aspirin 81 MG tablet Take [...] applicable) ELIZABETH/ARB in CHF: NA Statin in IA: NA ASA in IA: NA Statin in CVA: NA Antiplatelet in CVA: NA Total time spent on discharge services: 35 minutes Including the following activities: Evaluation and Management of patient Discussion with patient and/or surrogate about current care plan Coordination with Case Management and/or Tools Programmer Coordination of care with Consultants (if applicable) Coordination of care with Receiving Facility Physician (if applicable) Completion of DME forms (if applicable) Preparation of Discharge Summary Preparation of Medication Reconciliation Preparation of Discharge Prescriptions Signed: Eunice Guerra APRN, [employer] 04/18/2020, 6:33 PM Associated attestation - Marcelino Clifford MD - 04/18/2020 7:30 PM EST Marcelino Clifford M.D. Discharge Summary Attestation 04/18/20 I personally evaluated and examined the patient [id number] in conjunction with the PA/[employer] and agree with the management and dispostition of the patient. Please see the PA/[employer]'s note for full details.My eason findings are: [...] care plan Coordination with Case Management and/or Tools Programmer Coordination of care with Consultants (if applicable) [...] your doctor if you can take an tizt-epk-kyloeln medicine. If you think your pain medicine [...] or uneven pulse. After calling 911, the coordinate measuring machine operator may tell you to chew [...] Where can you learn more? Go to [email or web address] and sign in to your [employer] account. Enter G817 in the Search Health Information box to learn more about Sedation for a Medical Procedure: Care Instructions. If you do not have an account, please click on the Sign Up Now link. [id number] MustHaveMenus. Care instructions adapted under license by [employer]. This care instruction is for use with your licensed healthcare professional. If you have questions about amedical condition or this instruction, always ask your healthcare professional. MustHaveMenus disclaims any warranty or liability for your use of this information. Content Version: 10.6.329994; Current as of: October 17, 2013 * Attachments The following attachments cannot be sent through Care Everywhere. * TIA (Transient Ischemic Attack) (Malian) documented in this encounter* Instructions* Luis Enrique [...] sent through Care Everywhere. * Diet: DASH (Malian) * Hypertension: General Info (Malian) documented in this encounter History of Present Illness * Emi Avitia RN - 04/19/2020 12:55 PM EST Discharge instructions reviewed at this time. * Holly Rodriguez - 04/19/2020 12:47 PM EST Patient instructed on extended gambling monitor indications and use. Diary sent with patient. * Emi Avitia RN - 04/19/2020 12:32 PM EST Cardiopulmonary called at this time for heart monitor. Patient getting dressed. * Emi vAitia RN - 04/19/2020 11:30 AM EST Patient ate lunch and states she feels a lot better and wants to go home. Updated KERRY Dawson. * Emi Avitia RN - 04/19/2020 9:45 AM EST Patient returned from [facility] at this time. Patient drowsy but alert. * Rylee Verma 04/19/2020 9:33 AM EST Instructed patient on policy and procedure of a ALEKSANDRA. * Emi Avitia RN - 04/19/2020 7:40 AM EST Patient taken down for ALEKSANDRA. Report given to RAMONE Henson. * Eunice Guerra APRN - KERRY - 04/19/2020 7:11 AM EST Progress Note [...] CAM to be placed Eunice Guerra APRN, [employer]-C Associated attestation - Marcelino Clifford MD - 04/19/2020 12:56 PM EST Marcelino Clifford M.D. PA / [employer] Attestation Note I personally evaluated and examined the patient [id number] in conjunction with the PA/[employer] and agree with the management and dispostition of the patient. Please see the PA/[employer]'s note for full details.My eason findings are: [...] the assessment and plan as outlined by PA/[employer] below TIA (transient ischemic attack) Echo with [...] site without complications. Patient denies any needs. Lulu Liu RN - 04/18/2020 8:46 PM EST Call from licensed audiologist wanting to cancel patient discharge and plan for A[facility]KS[facility]A tomorrow. [facility] have her come talk to patient [...] At this time patient IV removed to [facility] without complications. Patient was given tylenol per [...] lives with her in her home in [place]. Pt states that she uses no [facility] or community services. 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 Pt drives and is able to get [...] as needed. Vicky PARIKHW 04/18/2020 * Neela Dunn OT - 04/18/2020 10:06 AM EST Occupational [...] Ambulation Assistance: Independent Transfer Assistance: Independent Active Agronomy Instructor: Yes Additional Comments: Pt reports she is independent to complete all ADLs and IADLs at [facility] without AD. Objective Vision: Impaired [...] ther ex, ADL training G-Code OutComes Score AM-[facility] Score AM-[facility] Inpatient Daily Activity Raw Score: 21 (04/18/20 100) AM-[facility] Inpatient ADL T-Scale Score : 44.27 (04/18/201005) ADL Inpatient CMS 0-100% Score: 32.79 (04/18/206) ADL Inpatient CMS G-Code Modifier : CJ [...] Group Co-treatment Time In 919 Time Out 09 Minutes 21 Neela Dunn OT * Manuel Will SLP - 04/18/2020 9:19 AM EST Speech Language Pathology Facility/Department: [facility] MED SURG Initial Speech/Language/Cognitive Assessment [...] TIA (Transient Ischemic Attack) G45.9 Recommendations: Requires ROLLING MILL PLUGGER Intervention: No Duration/Frequency of Treatment: No further [...] on assessment and results. 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 She can identify that those foods may [...] Discharge Planning: Too soon to determine Contact: [id number] * Tia Krueger PT - 04/18/2020 8:11 AM EST Physical Therapy Facility/Department: [facility] MED SURG Initial Assessment NAME: [...] Time Individual Concurrent Group Co-treatment Time In 0703 Time Out 0720 Minutes 17 Tia Krueger PT * Eunice Guerra, 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 - 04/18/2020 7:42 AM EST Progress Note [...] plan: Home later today Eunice Guerra APRN, [employer]-C Associated attestation - Marcelino Clifford MD - 04/18/2020 5:38 PM EST Marcelino Clifford M.D. PA / [employer] Attestation Note I personally evaluated and examined the patient [id number] in conjunction with the PA/[employer] and agree with the management and dispostition of the patient. Please see the PA/[employer]'s note for full details.My eason findings are: [...] Intake/Output Summary (Last 24 hours) at 04/18/2020 1733 Last data filed at 04/18/2020 1027 Gross [...] the assessment and plan as outlined by PA/[employer] below TIA (transient ischemic attack) Echo with [...] and faxed at this time. * Sara Sgiala RN - 04/17/2020 8:28 PM EST Patient [...] FoundDocuments on File Type Date Recorded Patient Bell Tier Expl anation ACP-Advance Directive ACP-Power of Bale Opener Latest Code Status on File Code Status Date Activated Date Inactivated Comments Full Code 04/17/2020 8:35 PM Full Code 12/20/2017 2:38 PM 12/20/2017 5:29 PM Full Code 12/20/2017 12:46 PM 12/20/2017 2:38 PM Documents on File Type Date Recorded Patient Bell Tier Expl anation ACP-Advance Directive ACP-Power of Bale Opener Latest Code Status on File Code Status [...] Documents on File Type Date Recorded Patient Bell Tier Expl anation ACP-Do Not Resuscitate 04/05/2023 1:36 [...] Name Relationship Healthcare Agent Relationship Communication Jose Davenportcollette Spouse Primary Decision Maker Nely Bardales Grandchild [...] Name Relationship Healthcare Agent Relationship Communication Jose Phil Spencer Spouse Primary Decision Maker Nely Bardales Grandchild Secondary Decision Maker Healthcare Agents on File Name Relationship Healthcare Agent Relationship Communication Jose Davenportcollette Spouse Primary Decision Maker Nely Bardales Grandchild Secondary Decision Maker Healthcare Agents on File Name Relationship Healthcare Agent Relationship Communication Jose Palmer Spouse Primary Decision Maker Nely Brickner Grandchild Secondary Decision Maker Healthcare Agents on File Name Relationship Healthcare Agent Relationship Communication Jose Palmer Spouse Primary Decision Maker Nely Brickner Grandchild Secondary Decision Maker [phone] (Mobile) Healthcare Agents on File Name Relationship Healthcare [...] Maker Nely Brickner Grandchild Secondary Decision Maker Documents on File Type Date Recorded Patient Bell Tier Expl anation ACP-Do Not Resuscitate 04/05/2023 1:36 [...] Decision Maker Date Activated Date Inactivated Comments 07/12/2024 1:44 AM Date Activated Date Inactivated Comments 07/12/2024 1:41 AM 07/12/2024 1:44 AM Date Activated Date Inactivated Comments 04/05/2023 2:06 PM 04/05/2023 7:40 PM Date Activated Date Inactivated Comments 04/04/2023 5:18 PM 04/05/2023 2:06 PM Date Activated Date Inactivated Comments 09/02/2020 5:28 PM 09/05/2020 2:44 AM Healthcare Agents on File Name Relationship Healthcare Agent Relationship Communication Jose Palmer Spouse Primary Decision Maker Nely Bardales Grandchild Secondary Decision Maker Date Activated Date Inactivated Comments 07/12/2024 1:44 AM 07/14/2024 4:07 PM Date Activated Date Inactivated Comments 07/12/2024 1:41 AM 07/12/2024 1:44 AM Date Activated Date Inactivated Comments 04/05/2023 2:06 [...] CAROTID CEREBRAL BILATERAL Kristina Lomax MD [address] [facility] [address] [place] [address] Stvz Special Procedures [address] [place] [address] Specialty Diagnoses / Procedures Referred By Contac t Referred To Contact Radiology Diagnoses Left leg swelling Procedures VL DUP LOWER EXTREMITY VENOUS LEFT Alissa Marx MD [address] [place] [address] [place] [address] Referral ID Status Reason Start Date Expiration Date Visits Re quested Visits Authorized [id number] Open 03/03/2021 03/03/2022 1 1 Reason Comments Aphasia Pt feels she could b e having a stroke, has had one over a year ago. Pt states it feels the same. Speech is slurred and she states she couldn't speak. Symptoms started around 1330. Specialty Diagnoses / Procedures Referred By Adrián t Referred To Contact Radiology Diagnoses Breast cancer screening by mammogram Procedures ALMA ESME DIGITAL SCREEN SELF REFERRAL W OR WO CAD BILATERAL Molina Ramos, DO [address] [place] [address] Referral ID Status Reason Start Date Expiration Date Visits Re quested Visits Authorized [id number] Closed 10/10/2021 10/10/2022 1 1 Reason Comments [...] SPINE WO CONTRAST Sharath Garcia DC [address] [place] [address] Referral ID Status Reason Start Date Expiration Date V isits Requested Visits Authorized [id number] Not Required - RTA 02/15/2024 02/14/2025 1 1 Reason Comments Aphasia Pt reports p t with slurred speech onset 0700 this morning. Pt states she was unable to figure out the telephone this morning. Reason Comments Altered Mental Status Patient arrived to ER per family, patient was asleep all day and woke up around 6pm and was confused and yelling for her . Patient also states she has a headache. Specialty Diagnoses / Procedures Referred By Adrián mar Referred To Contact Diagnoses Complicated UTI (urinary tract infection) Victor M Ny MD [address] [place] [address] Phone: tel: fax: [facility] [id number] [place] [address] Referral ID Status Reason Start Date Expiration Date Visits Re quested Visits Authorized [id number] 1 1 Reason Comments Aphasia Pt states she feels like her speech is funny starting at 1700. Ordered Prescriptions (unrec ognized section and content) [...] for 7 days 21 capsule 03/26/2024 04/02/2024 Prescription Sig Dispense Quantity Refills Last Filled Start Date End Date cephALEXin (KEFLEX) 500 MG capsule Take 1 capsule by mouth 4 times daily for 7 days 28 capsule 07/14/2024 Prescription Sig Dispense Quantity Refills Last Filled Start Date End Date cyclobenzaprine (FLEXERIL) 10 MG tablet Take 1 tablet by mouth 3 times daily as needed for Muscle spasms 21 tablet 08/18/2024 08/28/2024 Scheduled Active and Recently Administ ered Medications [...] - Reason: Other - Comment: pt lethargic) 0858 (Given - Provider: Tia Madrid RN)2016 (Given [...] - Provider: Vickie Byrne RN) 2099 (Due) haloperidol lactate (HALDOL) injection 5 mg 5 mg, Intramuscular, ONCE, On Wed09/02/20 at 2215, For 1 dose, IM route of administration preferred. Because of the risk of TdP and QT prolongation, ECG monitoring is recommended if haloperidol is given IV. 015 (Not Given - Provider: Caitlyn Larson RN [...] Dwight Jackson, RN)1817 (Stopped - Provider: Dwight Jackson RN) losartan (COZAAR) tablet 50 mg 50 [...] 2026 (Given - Provider: Caitlyn Larson RN) 909 (Not Given - Provider: Tia Madrid RN [...] dose, Starting on Wed10/05/21 at 1534, Until Wed10/05/21 at 1537, Other 1537 (Given - Provid [...] solution. 1827 (Given - Provid er: Mary Luther RN) PRN Medication Order 03/24/2024 03/25/2024 03/26/2024 iopamidol (ISOVUE-370) 76 % injection 75 mL (COMPLETED) 75 mL, IntraVENous, IMG ONCE PRN, 1 dose, Starting on Wed03/26/24 at 1451, Until Wed03/26/24 at 1452, Other 1452 (Given - Provid er: Jeniffer Aden) Scheduled Medication Order 07/12/2024 07/13/2024 07/14/2024 aspirin EC tablet 81 mg 81 mg, Oral, DAILY, First dose on Wed07/12/24 at 0900, Until Discontinued 944 (Given - Provider: FABIAN Evans) 925 (Given - Provider: Corrine West) 810 (Given - Provider: Corrine West) atorvastatin (LIPITOR) tablet 40 mg 40 mg, Oral, NIGHTLY, First dose on Wed07/12/24 at 2100, Until Discontinued 2100 (Given - Provider: Ariella Amaral RN) 1930 (Given - Provider: Ariella Amaral RN) 2099 (Due) baclofen (LIORESAL) tablet 10 mg 10 mg, Oral, NIGHTLY, First dose on Wed07/12/24 at 2100, Until Discontinued 2100 (Given - Provider: Ariella Amaral RN) 1930 (Given - Provider: Ariella Amaral RN) 2099 (Due) calcium gluconate 2,000 mg in sodium chloride 100 mL (COMPLETED) 2,000 mg, IntraVENous, at 50 mL/hr, Administer over 120 Minutes, ONCE, On Wed07/12/24 at 0700, For 1 dose 0712 (New Bag - Provider: FABIAN Evans)904 (Stopped - Provider: FABIAN Evans) cefTRIAXone (ROCEPHIN) 1,000 mg in sterile water 10 mL IV syringe (CANCELED) 1,000 mg, IntraVENous, EVERY 24 HOURS, First dose on Wed07/12/24 at 2300, For 4 days, Administer as slow IV Push over 5 mins Reconstitute 1 g vials with 9.6 mL of designated diluent to produce a 100 mg/mL solution. 2203 (Given - Provider: Ariella Amaral RN) 2202 (Given - Provider: Ariella Amaral RN) cephALEXin (KEFLEX) capsule 500 mg 500 mg, Oral, EVERY 6 HOURS SCHEDULED (4 times per day), First dose on Wed07/14/24 at 0600, Until Discontinued, Antimicrobial Indications: Urinary Tract Infection, UTI duration of therapy: 7 days 0640 (Given - Provider: Corrine West)1150 (Given - Provider: Corrine West)1800 (Due) enoxaparin (LOVENOX) injection 40 mg 40 mg, SubCUTAneous, DAILY, First dose on Wed07/12/24 at 0900, Until Discontinued, Indication of Use: Prophylaxis-DVT/PE 0944 (Given - Provider: FABIAN Evans) 09 (Given - Provider: Corrine West) 08 (Given - Provider: Corrine West) lactulose (CHRONULAC) 10 GM/15ML solution 10 g 10 g, Oral, 2 TIMES DAILY, First dose on Wed07/12/24 at 0200, Until Discontinued, Dilute packet according to directions on package. 020 (Not Given - Provider: Sara Sigala RN - Reason: Patient/family refused - Comment: Will start tomorrow)944 (Not Given - Provider: FABIAN Evans - Reason: Patient/family refused)2103 (Not Given - Provider: Ariella Amaral RN - Reason: Patient/family refused - Comment: says it makes her sick to her stomach) 925 (Not Given - Provider: Corrine West - Reason: Patient/family refused)1933 (Not Given - Provider: Ariella Amaral RN - Reason: Patient/family refused - Comment: PT says makes stoach upset) 811 (Not Given - Provider: Corrine West - Reason: Patient/family refused)2099 (Due) metFORMIN (GLUCOPHAGE) tablet 500 mg 500 mg, Oral, NIGHTLY, First dose on Wed07/12/24 at 2099, Until Discontinued 2100 (Given - Provider: Ariella Amaral RN) 1930 (Given - Provider: Ariella Amaral RN) 2099 (Due) montelukast (SINGULAIR) tablet 10 mg 10 mg, Oral, NIGHTLY, First dose on Wed07/12/24 at 2100, Until Discontinued 2100 (Given - Provider: Ariella Amaral RN) 1930 (Given - Provider: Ariella Amaral RN) 2099 (Due) rOPINIRole (REQUIP) tablet 0.5 mg 0.5 mg, Oral, DAILY, First dose on Wed07/12/24 at 0200, Until Discontinued 205 (Not Given - Provider: Sara Sigala RN - Reason: Patient/family refused - Comment: Will start tomorrow)2100 (Given - Provider: Ariella Amaral RN) 2202 (Given - Provider: Ariella Amaral RN) 2199 (Due) sodium chloride 0.9 % bolus 500 mL (COMPLETED) 500 mL (6.13 mL/kg), IntraVENous, at 247.9 mL/hr, Administer over 121 Minutes, ONCE, On Wed07/12/24 at 0015, For 1 dose 0013 (New Bag - Provider: Corrine Kumar RN)202 (Stopped - Provider: Sara Sigala RN) sodium chloride flush 0.9 % injection 5-40 mL 5-40 mL, IntraVENous, EVERY 12 HOURS SCHEDULED (2 times per day), First dose on Wed07/12/24 at 0900, Until Discontinued, For Line Patency: Peripheral IV = 5 [...] Midline or Central Line = 20 mL/lumen 944 (Not Given - Provider: FABIAN Evans - Reason: IV Fluid Infusing)2102 (Given - Provider: Ariella Amaral RN) 927 (Not Given - Provider: Corrine West - Reason: IV Fluid Infusing)2207 (Given - Provider: Ariella Amaral RN) 811 (Given - Provider: Corrine West)2099 (Due) spironolactone (ALDACTONE) tablet 50 mg 50 mg, Oral, DAILY, First dose on Wed07/12/24 at 0900, Until Discontinued 944 (Given - Provider: FABIAN Evans) 0926 (Given - Provider: Corrine West) 08 (Given - Provider: Corrine West) Continuous Medication Order 07/12/2024 07/13/2024 07/14/2024 0.9 % sodium chloride infusion (CANCELED) IntraVENous, at 75 mL/hr, CONTINUOUS, Starting on Wed07/12/24 at 0200 0204 (New Bag - Provider: aSra Sigala, RAMONE)0946 (Rate/Dose Verify - Provider: FABIAN Evans)1154 (Paused - Provider: Erika Macdonald, RN)1202 (Paused - Provider: Erika Macdonald, RN)1202 (Paused - Provider: Erika Macdonald, RN)1202 (Paused - Provider: Erika Macdonald, RN)1202 (Paused - Provider: Erika Macdonald, RN)1205 (Paused - Provider: Erika Macdonald, RN)1205 (Paused - Provider: Erika Macdonald, RN)1206 (Paused - Provider: Erika Macdonald, RAMONE)1206 (Restarted - Provider: Erika Macdonald, RAMONE)1208 (Stopped - Provider: Erika Macdonald, RAMONE)1208 (New Bag - Provider: Addi Norton RN)1728 (Rate/Dose Verify - Provider: Erika Macdonald RN)1904 (Paused - Provider: Corrine West)1916 (Paused - Provider: Corrine West)1916 (Restarted - Provider: Corrine West) 0020 (Rate/Dose Change - Provider: Corrine West)0022 (Rate/Dose Change - Provider: Corrine West)0123 (Rate/Dose Change - Provider: Corrine West)0127 (Stopped - Provider: Corrine West)0127 (New Bag - Provider: Sailaja Palma RN)1118 (Rate/Dose Verify - Provider: Corrine West)1422 (Rate/Dose Verify - Provider: Corrine West)1546 (New Bag - Provider: Corrine West) 0415 (New Bag - Provider: Ariella Amaral RN)0642 (Stopped - Provider: Corrine West) PRN Medication Order 07/12/2024 07/13/2024 07/14/2024 0.9 % sodium chloride infusion IntraVENous, at 100 mL/hr, PRN, If patient receiving piggyback infusions without ordered maintenance IV fluids or with frequent/long duration piggyback infusions, Starting on Wed07/12/24 at 0141, Administer at the same rate as the piggyback being infused. acetaminophen (TYLENOL) suppository 650 mg(Linked Group 1) 650 mg, Rectal, EVERY 6 HOURS PRN, Starting on Wed07/12/24 at 0141, Until Discontinued, Pain Mild (1-3), allowed for higher pain score per patient request, Fever, For temp greater than 100.4 F (38 C), Administer if oral route cannot be used. 0216 (See Alternative - Provider: Sara Sigala RN) 032 (See Alternative - Provider: Ariella Amaral RN)09 (See Alternative - Provider: Corrine West)193 (See Alternative - Provider: Ariella Amaral RN) 0814 (See Alternative - Provider: Corrine West) acetaminophen (TYLENOL) tablet 650 mg(Linked Group 1) 650 mg, Oral, EVERY 6 HOURS PRN, Starting on Wed07/12/24 at 0141, Until Discontinued, Pain Mild (1-3), allowed for higher pain score per patient request, Fever, For temp greater than 100.4 F (38 C), Maximum dose of acetaminophen is 4000 mg from all sources in 24 hours. 0216 (Given - Provider: Sara Sigala RN) 328 (Given - Provider: Ariella Amaral RN)926 (Given - Provider: Corrine West)193 (Given - Provider: Ariella Amaral RN) 0814 (Given - Provider: Corrine West) ondansetron (ZOFRAN) injection 4 mg(Linked Group 2) 4 mg, IntraVENous, EVERY 6 HOURS PRN, Starting on Wed07/12/24 at 0141, Until Discontinued, Nausea, Vomiting, Administer if oral route cannot be used. ondansetron (ZOFRAN-ODT) disintegrating tablet 4 mg(Linked Group 2) 4 mg, Oral, EVERY 8 HOURS PRN, Starting on Wed07/12/24 at 0141, Until Discontinued, Nausea, Vomiting polyethylene glycol (GLYCOLAX) packet 17 g 17 g, Oral, DAILY PRN, Starting on Wed07/12/24 at 0141, Until Discontinued, Constipation, First line therapy for constipation sodium chloride flush 0.9 % injection 5-40 mL 5-40 mL, IntraVENous, PRN, Starting on Wed07/12/24 at 0141, Until Discontinued, Line Care, After every IV line use, For Line Patency: Peripheral IV = 5 [...] 20 mL/lumen Linked Groups Order Group 1: acetaminophen (TYLENOL) tablet 650 mgJump to med 650 mg, Oral, EVERY 6 HOURS PRN, Starting on Wed07/12/24 at 0141, Until Discontinued, Pain Mild (1-3), allowed for higher pain score per patient request, Fever, For temp greater than 100.4 F (38 C), Maximum dose of acetaminophen is 4000 mg from all sources in 24 hours. Or acetaminophen (TYLENOL) suppository 650 mgJump to med 650 mg, Rectal, EVERY 6 HOURS PRN, Starting on Wed07/12/24 at 0141, Until Discontinued, Pain Mild (1-3), allowed for higher pain score per patient request, Fever, For temp greater than 100.4 F (38 C), Administer if oral route cannot be used. Group 2: ondansetron (ZOFRAN-ODT) disintegrating tablet 4 mgJump to med 4 mg, Oral, EVERY 8 HOURS PRN, Starting on Wed07/12/24 at 0141, Until Discontinued, Nausea, Vomiting Or ondansetron (ZOFRAN) injection 4 mgJump to med 4 mg, IntraVENous, EVERY 6 HOURS PRN, Starting on Wed07/12/24 at 0141, Until Discontinued, Nausea, Vomiting, Administer if oral route cannot be used. Scheduled Medication Order 08/16/2024 08/17/2024 08/18/2024 HYDROcodone-acetaminophen (NORCO) 5-325 MG per tablet 1 tablet (COMPLETED) 1 tablet, Oral, ONCE, 1 dose, On Wed08/18/24 at 0200, Maximum dose of acetaminophen is 4000 mg from all sources in 24 hours. 0201 (Given - Provid er: Nicole Ambriz RN) PRN Medication Order 08/16/2024 08/17/2024 08/18/2024 iopamidol (ISOVUE-370) 76 % injection 75 mL (COMPLETED) 75 mL, IntraVENous, IMG ONCE PRN, 1 dose, Starting on Wed08/18/24 at 0200, Until Wed08/18/24 at 0216, Other 0216 (Given - Provid er: Preethi Gamble) Care Teams (unrecognized sec tion and content) Saturator Relationship Specialty Start Date End Date Molina Ramos, DO [address] [place] [address], [place] [phone] PCP - General 06/05/12 Saturator Relationship Specialty Start Date End Date Molina Ramos DO [address] [place] [address], [place] [address] PCP - General 06/05/12 Saturator Relationship Specialty Start Date End Date Molina Ramos DO [address] [place] [address], [place] [phone] PCP - General 06/05/12 Saturator Relationship Specialty Start Date End Date Molina Ramos DO [address] [place] [address], [place] [address] PCP - General 06/05/12 Saturator Relationship Specialty Start Date End Date Molina Ramos DO [address] [place] [address], [place] [phone] PCP - General 06/05/12 Saturator Relationship Specialty Start Date End Date Molina Ramos DO [address] [place] [address], [place] [phone] PCP - General 06/05/12 Saturator Relationship Specialty Start Date End Date Molina Ramos DO [address] [place] [address], [place] [phone] PCP - General 06/05/12 Saturator Relationship Specialty Start Date End Date Molina Ramos, DO [facility] [place] [address] PCP - General 06/05/12 Saturator Relationship Specialty Start Date End Date Molina Ramos DO [address] [place] [address] PCP - General 06/05/12 Saturator Relationship Specialty Start Date End Date Molina Ramos DO [facility] [place] [address] PCP - General 06/05/12 Saturator Relationship Specialty Start Date End Date Molina Ramos DO [address] [place] [phone] PCP - General 06/05/12 Saturator Relationship Specialty Start Date End Date Molina Ramos DO [address] [place] [phone] PCP - General 06/05/12 Saturator Relationship Specialty Start Date End Date Molina Ramos DO [address] [place] [phone] PCP - General 06/05/12 Saturator Relationship Specialty Start Date End Date Molina Ramos DO [address] [place] [address], [place] [phone] PCP - General 06/05/12 Saturator Relationship Specialty Start Date End Date Molina Ramos DO [address] [place] [phone] PCP - General 06/05/12 Saturator Relationship Specialty Start Date End Date Molina Ramos DO [address] [place] [phone] PCP - General 06/05/12 Saturator Relationship Specialty Start Date End Date Molina Ramos DO [address] [place] [phone] PCP - General 06/05/12 Saturator Relationship Specialty Start Date End Date Molina Ramos DO [address] [place] [phone] PCP - General 06/05/12 Saturator Relationship Specialty Start Date End Date Mloina Ramos DO [address] [place] [phone] PCP - General 06/05/12 Saturator Relationship Specialty Start Date End Date Molina Ramos DO [address] [place] [phone] PCP - General 06/05/12 Saturator Relationship Specialty Start Date End Date Molina Ramos DO [address] [place] [phone] PCP - General 06/05/12 Saturator Relationship Specialty Start Date End Date Molina Ramos DO [address] [place] [phone] PCP - General 06/05/12 Saturator Relationship Specialty Start Date End Date Molina Ramos DO [address] [place] [phone] PCP - General 06/05/12 Saturator Relationship Specialty Start Date End Date Sujatabridgett Molina DO Goldy [address] [place] [phone] PCP - General 06/05/12 Saturator Relationship Specialty Start Date End Date Molina Ramos DO [address] [place] [phone] PCP - General 06/05/12 Saturator Relationship Specialty Start Date End Date Molina Ramos DO [address] [place] [phone] PCP - General 06/05/12 INFORMATION SOURCE (unrecogn ized section and content) DATE CREATED AUTHOR 03/04/2021 [facility] DATE CREATED AUTHOR AUTHOR'S ORGANIZ ATION 09/03/2024 [facility] DATE CREATED AUTHOR AUTHOR'S ORGANIZ ATION 09/28/2024 [facility] FOR RECORDS PERTAINING TO PATIENTS WHO ARE [...] BE BASED ON THE PRIMARY CLINICAL RECORDS. [employer] [facility]. provides no warranty or guarantee of the accuracy or completeness of information in this document.
[2024-10-02 09:32] VITALS: BP 121/73; PULSE 76; TEMP 36.2; O2SAT 100
[2024-10-02 10:08] VITALS: BP 128/61; PULSE 73; O2SAT 99
[2024-10-02 10:11] VITALS: PULSE 70; O2SAT 100
[2024-10-02] MEDS: BUPIVACAINE HCL 0.25% PF 25 MG/10 ML VIAL 8 ML INJ (10:11)
--- NOTE | 2024-10-02 10:11 | W.PM.PROCNOT ---
Date of procedure: 10/02/24 Pre-op diagnosis: Pain due to thoracic spondylosis without myelopathy Post-op diagnosis: same as pre-op Procedure: Procedure: Bilateral T9-10, 10-11 medial branch block Medications: Bupivacaine 0.25% 6cc The patient was seen and examined in the preoperative holding area.? An informed consent was obtained and placed on the chart.? The patient was brought to the medical procedure unit and placed in the prone position.? A timeout was completed verifying correct patient, procedure site, positioning, plan, and special equipment.? Using aseptic technique, the needle was placed at left T9. Under direct fluoroscopic visualization a Quincke-tipped spinal needle was advanced to the junction of the superior articulating process with the transverse process at the designated medial branch segment.? Preceded by negative aspiration, the above-mentioned injectate was placed in 1 mL aliquots.? The procedure was repeated at left T10, 11.? The needle was removed and insertion site was covered. The same procedure, at the same levels, was completed on the right side. The patient was taken to the postprocedural recovery area and monitored for an appropriate length of time before found suitable for discharge in the company of a responsible adult. Anesthesia: Local Surgeon: Tahir Sparrow Pathology: none sent Condition: stable Disposition: no change
[2024-10-02 10:12] VITALS: BP 143/63
== END 2024-10-02 10:20 | disposition home or self-care (01) ==
PROVIDERS: Family Provider Internal Medicine; PCP Internal Medicine; Visit Provider Anesthesiology
DX: M47.814 Spondylosis without myelopathy or radiculopathy, thoracic region (principal)
CPT/HCPCS: 64490; 64491; J0665

== ENCOUNTER 2024-10-04 13:56 | Outpatient (OUT) | payer MEDICARE, SELFPAY ==
--- OUTSIDE RECORDS SUMMARY | 2024-10-04 14:26 | XMS_ITS | CCD ---
Author Organization [facility] Care Team Providers Care Residential Sales Manager Name Role Phone Molina Ramos Primary Care Provider KRISTINA LOMAX Referring Unavailable VALONE, MOLINA L Primary Care Unavailable LISETH, ACOSTA I Admitting Unavailable LISETH, ACOSTA I Attending Unavailable VALONE, MOLINA L Primary Care Unavailable AHMEDJERICA S Consulting Unavailable AHMED, MOHAMMCORINE S Admitting Unavailable AHMEDJERICA S Attending Unavailable ValMolina urias DO Primary Care Provider Molina Ramos DO Primary Care Provider Valone Molina FLORES Primary Care Provider Sujataone DOMolina Primary Care Provider [phone] VALONE MOLINA L Primary Care Unavailable VALONE, MOLINA L Referring Unavailable VALONE, MOLINA L Primary Care Unavailable VALONE, MOLINA L Referring Unavailable VALONE, MOLINA L Primary Care Unavailable VALONE, MOLINA L Referring Unavailable VALONE, MOLINA L Primary Care Unavailable VALONE, MOLINA L Referring Unavailable VALONE, MOLINA L Primary Care Unavailable VALONE, MOLINA L Referring Unavailable SHABNMA BAXTER Attending Unavailable VALONE, MOLINA L Primary [...] Agonists (3 sources) Morphine Drug Allergy 06-05-2012 [facility] (20 sources) Morphine Drug Allergy 06-05-2012 [facility] Work Phone: Medications Current Medications Medication Drug [...] disintegrating tablet 4 mg polyethylene glycol [id number] [id number] mg powder for oral solution (6 sources) [...] Start: 08-13-2023 take 2 tablets by mo dch once daily spironolactone (ALDACTONE) 25 MG tablet [...] 04-04-2023 Episodic Other aftercare (2 sources) Other care home (current) drug therapy; Translations: [Other care home (current) drug therapy] Onset: 10-22-2023 Episodic Other [...] with Auto Differentialon 08-18-2024 Basophils (Bld) [#/Vol] [facility] Basophils/100 WBC (Bld) 0 % 0 - 2 % [facility] Eosinophils (Bld) [#/Vol] 0.27 10*3/uL [facility] Eosinophils/100 WBC (Bld) 4 % 1 - 4 % [facility] Erythrocyte distribution width (RBC) [Ratio] 13.6 % 11.8 - 14.4 % [facility] Hematocrit (Bld) [Volume fraction] 34.5 % Low 36.3 - 47.1 % [facility] Hemoglobin (Bld) [Mass/Vol] 11 g/dL Low 11.9 - 15.1 g/dL [facility] Immature granulocytes (Bld) [#/Vol] 0.03 10*3/uL [facility] Immature granulocytes/100 WBC (Bld) 0 % 0 [facility] Interpretation and review of laboratory results Abnormal [facility] Lymphocytes/100 WBC (Bld) 25 % 24 - 43 % [facility] Lymphocytes/100 WBC (Bld) 1.72 % [facility] MCH (RBC) [Entitic mass] 30.3 pg 25.2 - 33.5 pg [facility] MCHC (RBC) [Mass/Vol] 31.9 g/dL 28.4 - 34.8 g/dL [facility] MCV (RBC) [Entitic vol] 95 fL 82.6 - 102.9 fL [facility] Monocytes/100 WBC (Bld) 15 % High 3 - 12 % [facility] Monocytes/100 WBC (Bld) 1.03 % [facility] Neutrophils/100 WBC (Bld) 56 % 36 - 65 % [facility] Nucleated RBC/100 WBC (Bld) [Ratio] 0 % 0.0 per 100 WBC [facility] Platelet mean volume (Bld) [Entitic vol] 10.2 fL 8.1 - 13.5 fL [facility] Platelets (Bld) [#/Vol] 226 10*3/uL [facility] RBC (Bld) [#/Vol] 3.63 10*6/uL Low 3.95 - 5.1 1 m/uL [facility] Segmented neutrophils/100 WBC (Bld) 3.77 % [facility] WBC other (Bld) [#/Vol] 6.8 [facility] CBC with Diffon 08-18-2024 Abs. Basophil <0.03 Normal 0.00-0.20 [facility] Comment on above: Performed By: #### T ROPI #### [facility] [address] [place] [address] [place] [address] Group Account Director: Sharath Dennis MD Abs.Imm.Granulocyte 0.03 k/uL Normal 0.00-0.30 [facility] Comment on above: Performed By: #### T ROPI #### [facility] [address] [place], [place] [id number] Group Account Director: Sharath Dennis MD Abs.Neutrophil (Seg) 3.77 k/uL Normal 1.50-8.10 [facility] Comment on above: Performed By: #### T ROPI #### [facility] [address] [place] [id number] Group Account Director: Sharath Dennis MD Basophils/100 WBC (Bld) 0 % Normal 0-2 [facility] Comment on above: Performed By: #### T ROPI #### [facility] [address] [place] [address] Group Account Director: Sharath Dennis MD Eosinophils (Bld) [#/Vol] 0.27 10*3/uL Normal 0.00-0.44 [facility] Comment on above: Performed By: #### T ROPI #### [facility] [address] [place], [place] [id number] Group Account Director: Sharath Dennis MD Eosinophils/100 WBC (Bld) 4 % Normal 1-4 [facility] Comment on above: Performed By: #### T ROPI #### [facility] [address] [place], [place] [id number] Group Account Director: Sharath Dennis MD Erythrocyte distribution width (RBC) [Ratio] 13.6 % Normal 11.8-14.4 [facility] Comment on above: Performed By: #### T ROPI #### [facility] [address] [place], [place] [id number] Group Account Director: Sharath Dennis MD Hematocrit (Bld) [Volume fraction] 34.5 % Low 36.3-47.1 [facility] Comment on above: Performed By: #### T ROPI #### [facility] [address] [place] [address] [address]. [place], [place] [id number] Group Account Director: Sharath Dennis MD Hemoglobin (Bld) [Mass/Vol] 11.0 g/dL Low 11.9-15.1 [facility] Comment on above: Performed By: #### T ROPI #### [facility] [address] [place], [place] [id number] Group Account Director: Sharath Dennis MD Immature granulocytes/100 WBC (Bld) 0 % Normal 0 [facility] Comment on above: Performed By: #### T ROPI #### [facility] [address] [place], [place] [id number] Group Account Director: Sharath Dennis MD Lymphocytes (Bld) [#/Vol] 1.72 10*3/uL Normal 1.10-3.70 [facility] Comment on above: Performed By: #### T ROPI #### [facility] [address] [place], [place] [id number] Group Account Director: Sharath Dennis MD Lymphocytes/100 WBC (Bld) 25 % Normal 24-43 [facility] Comment on above: Performed By: #### T ROPI #### [facility] [address] [place], [place] [address] Group Account Director: Sharath Dennis MD MCH (RBC) [Entitic mass] 30.3 pg Normal 25.2-33.5 [facility] Comment on above: Performed By: #### T ROPI #### [facility] [address] [place], [place] [address] Group Account Director: Sharath Dennis MD MCHC (RBC) [Mass/Vol] 31.9 g/dL Normal 28.4-34.8 [facility] Comment on above: Performed By: #### T ROPI #### [address] [place], [place] [address] Group Account Director: Sharath Dennis MD MCV (RBC) [Entitic vol] 95.0 fL Normal 82.6-102.9 [facility] Comment on above: Performed By: #### T ROPI #### [address] [place], [place] [address] Group Account Director: Sharath Dennis MD Monocytes (Bld) [#/Vol] 1.03 10*3/uL Normal 0.10-1.20 [facility] Comment on above: Performed By: #### T ROPI #### [facility] [address] [place], [place] [address] Group Account Director: Sharath Dennis MD Monocytes/100 WBC (Bld) 15 % High 3-12 [facility] Comment on above: Performed By: #### T ROPI #### [facility] [address] [place], [facility]83 Group Account Director: Sharath Dennis MD Neutrophil (Seg) 56 % Normal 36-65 [facility] Comment on above: Performed By: #### T ROPI #### [facility] [address] [place], [place] [phone] Group Account Director: Sharath Dennis MD NRBC Automated 0.0 per 100 WBC Normal 0.0 [facility] Comment on above: Performed By: #### T ROPI #### [facility] [address] [place], [place] [id number] Group Account Director: Sharath Dennis MD Platelet mean volume (Bld) [Entitic vol] 10.2 fL Normal 8.1-13.5 [facility] Comment on above: Performed By: #### T ROPI #### [facility] [address] [place], [facility]83 Group Account Director: Sharath Dennis MD Platelets (Bld) [#/Vol] 226 10*3/uL Normal 138-453 [facility] Comment on above: Performed By: #### T ROPI #### [facility] [address] [place], [facility]83 Group Account Director: Sharath Dennis MD RBC (Bld) [#/Vol] 3.63 10*6/uL Low 3.95-5.11 [facility] Comment on above: Performed By: #### T ROPI #### [facility] [address] [place], [place] [id number] Group Account Director: Sharath Dennis MD WBC (Bld) [#/Vol] 6.8 10*3/uL Normal 3.5-11.3 [facility] Comment on above: Performed By: #### T ROPI #### [facility] [address] [place] [address] Group Account Director: Sharath Dennis MD [facility]2024 Albumin [Mass/Vol] 4.2 g/dL 3.5 - 5.2 g/dL [facility] Albumin/Globulin [Mass ratio] 1.7 {ratio} 1.0 - 2.5 [facility] ALP [Catalytic activity/Vol] 85 U/L 35 - 104 U/L [facility] ALT [Catalytic activity/Vol] 15 U/L 10 - 35 U/L [facility] Anion gap [Moles/Vol] 15 mmol/L 9 - 16 mmol/L [facility] AST [Catalytic activity/Vol] 20 U/L 10 - 35 U/L [facility] Bilirubin [Mass/Vol] 0.3 mg/dL 0.00 - 1.20 mg/dL [facility] Calcium [Mass/Vol] 9.2 mg/dL 8.6 - 10. 4 mg/dL [facility] Chloride [Moles/Vol] 111 mmol/L High 98 - 10 7 mmol/L [facility] CO2 [Moles/Vol] 19 mmol/L Low 20 - 31 mmol/L [facility] Creatinine [Mass/Vol] 1.5 mg/dL High 0.50 - 0.90 mg/dL [facility] Est, Glom Filt Rate 34 Low - PINF [facility] Comment on above: These results [...] 104 mg/dL High 74 - 99 mg/dL [facility] Potassium [Moles/Vol] 4.3 mmol/L 3.7 - 5.3 mmol/L [facility] Protein [Mass/Vol] 6.7 g/dL 6.6 - 8.7 g/dL [facility] Sodium [Moles/Vol] 145 mmol/L 136 - 145 mmol/L [facility] Urea nitrogen [Mass/Vol] 30 mg/dL High 8 - 23 mg/dL [facility] Urea nitrogen/Creatinine [Mass ratio] 20 mg/mg 9 - [address] [facility] [address] HEAD WO CONTRASTon 2024 CT HEAD [...] Madina Gómez MD 08/18/24 Final result Normal [facility] CTA HEAD NECK W CONTRASTon 0 08-18-2024 [...] Madina Gómez MD 08/18/24 Final result Normal [facility] Comp Metabolic Profon 2024 Albumin [Mass/Vol] 4.2 g/dL Normal 3.5-5.2 [facility] Comment on above: Performed By: #### U #### [employer] [address] [place] [address] Group Account Director: Wellington Back MD Albumin/Glob Ratio 1.7 Normal 1.0-2.5 [facility] Comment on above: Performed By: #### U RC #### [address] [address] Group Account Director: Wellington Back MD Alkaline Phos 85 U/L Normal 35-104 [facility] Comment on above: Performed By: #### U RC #### [address] [address] Group Account Director: Wellington Back MD ALT [Catalytic activity/Vol] 15 U/L Normal 10-35 [facility] Comment on above: Performed By: #### U RC #### [address] [address] Group Account Director: Wellington Back MD Anion gap [Moles/Vol] 15 mmol/L Normal 9-16 [facility] Comment on above: Performed By: #### U RC #### [address] [address] Group Account Director: Wellington Back MD AST [Catalytic activity/Vol] 20 U/L Normal 10-35 [facility] Comment on above: Performed By: #### U RC #### [address] [address] Group Account Director: Wellington Back MD Bilirubin [Mass/Vol] 0.3 mg/dL Normal 0.00-1.20 [facility] Comment on above: Performed By: #### U RC #### [address] [address] Group Account Director: Wellington Back MD BUN/CRE Ratio 20 Normal 9-20 [facility] Comment on above: Performed By: #### U RC #### [address] [address] Group Account Director: Wellington Back MD Calcium [Mass/Vol] 9.2 mg/dL Normal 8.6-10.4 [facility] Comment on above: Performed By: #### U RC #### [address] [address] Group Account Director: Wellington Back MD Chloride [Moles/Vol] 111 mmol/L High 98-107 [facility] Comment on above: Performed By: #### U RC #### [place] [address] [place], [place] 2826[address] Group Account Director: Wellington Back MD CO2 [Moles/Vol] 19 mmol/L Low 20-31 [facility] Comment on above: Performed By: #### U RC #### [place] [address] [place], [place] [address]187008 Group Account Director: Wellington Back MD Creatinine [Mass/Vol] 1.5 mg/dL High 0.50-0.90 [facility] Comment on above: Performed By: #### U RC #### [address] [id number] Group Account Director: Wellington Back MD GFR/1.73 sq M.predicted among non-blacks MDRD (S/P/Bld) [Vol rate/Area] 34 mL/min/{1.73_m2} Low >60 [facility] Comment on above: Result Comment: These results [...] secretion. Performed By: #### U RC #### [facility] [address] [place], [place] 4056508 Group Account Director: Wellington Back MD Glucose [Mass/Vol] 104 mg/dL High 74-99 [facility] Comment on above: Performed By: #### U RC #### [place] [address] [place], [place] 1273708 Group Account Director: Wellington Back MD Potassium [Moles/Vol] 4.3 mmol/L Normal 3.7-5.3 [facility] Comment on above: Performed By: #### U RC #### [facility] [address] [place] [address] Group Account Director: Wellington Back MD Protein [Mass/Vol] 6.7 g/dL Normal 6.6-8.7 [facility] Comment on above: Performed By: #### U RC #### [facility] [employer] [facility] [place] [address] Group Account Director: Wellington Back MD Sodium [Moles/Vol] 145 mmol/L Normal 136-145 [facility] Comment on above: Performed By: #### U RC #### [address] [id number] Group Account Director: Wellington Back MD Urea nitrogen [Mass/Vol] 30 mg/dL High 8-23 [facility] Comment on above: Performed By: #### U RC #### [address] [address] Group Account Director: Wellington Back MD Glucose, Whole Bloodon 08-18 Glucose [Mass/Vol] 97 mg/dL 74 - 100 mg/dL [facility] Glucose [Mass/Vol] 97 mg/dL Normal 74-100 [facility] Microscopic Urinalysison Epithelial cells LM.HPF (Urine sed) [#/Area] 0 TO 2 [facility] RBC LM.HPF (Urine sed) [#/Area] 0 TO 2 [facility] WBC LM.HPF (Urine sed) [#/Area] 0 TO 2 [facility] No Panel Informationon 08-18 Interpretation and review of laboratory results Abnormal [facility] TSHon 08-18-2024 TSH Qn 3.27 m[IU]/L [facility] Thyroid Stim. Horm.on 2024 Thyroid Stim. Horm. 3.27 uIU/mL Normal 0.27-4.20 [facility] Comment on above: Performed By: #### T ROPI #### [facility] [address] [place], [place] 1799383 Group Account Director: hSarath Dennis MD Thyroxine, Freeon 08-18-2024 Thyroxine, Free 1.2 ng/dL Normal 0.92-1.68 [facility] Comment on above: Performed By: #### T ROPI #### [facility] [address] [place], [place] 4401383 Group Account Director: Sharath Dennis MD Troponinon 08-18-2024 Interpretation and review of laboratory results Abnormal [facility] Troponin I.cardiac High sensitivity method [Mass/Vol] 28 ng/L High 0 - 14 ng/L [facility] Comment on above: High Sensitivity Tro ponin values cannot be compared with other Troponin methodologies. [facility] Troponin, High Sens 28 ng/L High 0-14 [facility] Comment on above: Result Comment: High Sensitivity Troponin values cannot be compared with other Troponin methodologies. Performed By: #### U MICAO, UAX #### [facility] [address] [place] [address] Group Account Director: Sharath Dennis MD Troponin I.cardiac High sensitivity method [Mass/Vol] 34 ng/L High 0 - 14 ng/L [facility] Comment on above: High Sensitivity Tro ponin values cannot be compared with other Troponin methodologies. Troponin, High Sens 34 ng/L High 0-14 [facility] Comment on above: Result Comment: High Sensitivity Troponin values cannot be compared with other Troponin methodologies. Performed By: #### U RC #### [facility] [address] [place], [place] [address]16[address] Group Account Director: Wellington Back MD UA w/Reflex Cultureon 2024 Bilirubin, SemiQt,Ur Negative Normal NEG [facility] Comment on above: Performed By: #### U RC #### [facility] [address] [place], [place] 58[address] Group Account Director: Wellington Back MD Blood, Urine Negative Normal NEG [facility] Comment on above: Performed By: #### U RC #### [address] [address] Group Account Director: Wellington Back MD Clarity (U) Clear Normal CLEAR [facility] Comment on above: Performed By: #### U RC #### [address] [address] Group Account Director: Wellington Back MD Color (U) Yellow Normal YEL [facility] Comment on above: Performed By: #### U RC #### [address] [address] Group Account Director: Wellington Back MD Glucose Ql (U) Negative Normal NEG [facility] Comment on above: Performed By: #### U RC #### [address] [address] Group Account Director: Wellington Back MD Ketones Ql (U) Negative Normal NEG [facility] Comment on above: Performed By: #### U RC #### [address] [address] Group Account Director: Wellington Back MD Leukocyte esterase Test strip Ql (U) Negative Normal NEG [facility] Comment on above: Performed By: #### U RC #### [address] [address] Group Account Director: Wellington Back MD Nitrite,Ur Negative Normal NEG [facility] Comment on above: Performed By: #### U RC #### [address] [address] Group Account Director: Wellington Back MD PH,Ur 6.0 Normal 5.0-9.0 [facility] Comment on above: Performed By: #### U RC #### [address] [address] Group Account Director: Wellington Back MD Protein Ql (U) Negative Normal NEG [facility] Comment on above: Performed By: #### U RC #### [facility] [address] [place], [place] [address]80[address] Group Account Director: Wellington Back MD Spec. Loving,Ur 1.010 Normal 1.010-1.020 [facility] Comment on above: Performed By: #### U RC #### [facility] [address] [place], [place] [id number] Group Account Director: Wellington Back MD Urobilinogen,Ur Normal Normal 0.0-1.0 [facility] Comment on above: Performed By: #### U RC #### [facility] [address] [place], [place] [address] Group Account Director: Wellington Back MD Urinalysis with Reflex to Cu ltureon 08-18-2024 Bilirubin Ql (U) Negative NEGATIVE [facility] Clarity (U) Clear Clear [facility] Color (U) Yellow Yellow [facility] Glucose Test strip (U) [Mass/Vol] Negative NEGATIVE mg/dL [facility] Hemoglobin Auto test strip Ql (U) Negative NEGATIVE [facility] Ketones (U) [Mass/Vol] Negative NEGAT MAJOR mg/dL [facility] Leukocyte esterase Test strip Ql (U) Negative NEGATIVE [facility] Nitrite Ql (U) Negative NEGATIVE [facility] pH (U) 6 [pH] 5.0 - 9.0 [facility] Protein (U) [Mass/Vol] Negative NEGAT MAJOR mg/dL [facility] Specific gravity (U) [Rel density] 1.01 1.010 - 1.020 [facility] Urobilinogen Qn (U) Normal 0.0 - 1. 0 EU/dL [facility] Urinalysis,Microon Epithelial cells LM Ql (Urine sed) 0 TO 2 Normal 0-25 [facility] Comment on above: Performed By: #### U RC #### [facility] [address] [place] [address] Group Account Director: Wellington Back MD Urine RBC's 0 TO 2 Normal 0-2 [facility] Comment on above: Performed By: #### U RC #### [facility] [address] [place], [place] [id number] Group Account Director: Wellington Back MD Urine WBC's 0 TO 2 Normal 0-5 [facility] Comment on above: Performed By: #### U RC #### [facility] [address] [place], [place] [id number] Group Account Director: Wellington Back MD XR CHEST 1 VIEWon [...] Madina Gómez MD 08/18/24 Final result Normal [facility] XR THORACIC SPINE (2 VIEWS)o n 08-01-2024 [...] Mikael Thao MD 08/01/24 Final result Normal [facility] Cult,Urineon 07-27-2024 Cult,Urine Specimen Description .CLEAN CATCH URINE Special Requests Site: Urine Culture NO GROWTH Report Status FINAL 07/27/2024 Normal [facility] Comment on above: Performed By: #### U MICAO, UAX #### [facility] [address] [place] [address] Group Account Director: Sharath Dennis MD Brain Natri. Peptideon 07-26 Natriuretic peptide B (Bld) [Mass/Vol] 814 pg/mL High 0-450 [facility] Comment on above: Performed By: #### B CONCESSION ATTENDANT #### [facility] [address] [place] [address] Group Account Director: Sharath Dennis MD Brain Natriuretic Peptideon 07-26-2024 Interpretation and review of laboratory results Abnormal [facility] Natriuretic peptide B (Bld) [Mass/Vol] 814 pg/mL High 0 - 450 pg/mL [facility] [place] [facility] with Auto Differentialon 07-26-2024 Basophils (Bld) [#/Vol] [facility] Basophils/100 WBC (Bld) 0 % 0 - 2 % [facility] Eosinophils (Bld) [#/Vol] 0.3 10*3/uL [facility] Eosinophils/100 WBC (Bld) 4 % 1 - 4 % [facility] Erythrocyte distribution width (RBC) [Ratio] 13.6 % 11.8 - 14.4 % [facility] Hematocrit (Bld) [Volume fraction] 32.5 % Low 36.3 - 47.1 % [facility] Hemoglobin (Bld) [Mass/Vol] 10.3 g/dL Low 11.9 - 15.1 g/dL [facility] Immature granulocytes (Bld) [#/Vol] [facility] Immature granulocytes/100 WBC (Bld) 0 % 0 [facility] Interpretation and review of laboratory results Abnormal [facility] Lymphocytes/100 WBC (Bld) 20 % Low 24 - 43 % [facility] Lymphocytes/100 WBC (Bld) 1.35 % [facility] MCH (RBC) [Entitic mass] 30.5 pg 25.2 - 33.5 pg [facility] MCHC (RBC) [Mass/Vol] 31.7 g/dL 28.4 - 34.8 g/dL [facility] MCV (RBC) [Entitic vol] 96.2 fL 82.6 - 102.9 fL [facility] Monocytes/100 WBC (Bld) 15 % High 3 - 12 % [facility] Monocytes/100 WBC (Bld) 1 % [facility] Neutrophils/100 WBC (Bld) 61 % 36 - 65 % [facility] Nucleated RBC/100 WBC (Bld) [Ratio] 0 % 0.0 per 100 WBC [facility] Platelet mean volume (Bld) [Entitic vol] 9.8 fL 8.1 - 13.5 fL [facility] Platelets (Bld) [#/Vol] 245 10*3/uL [facility] RBC (Bld) [#/Vol] 3.38 10*6/uL Low 3.95 - 5.1 1 m/uL [facility] Segmented neutrophils/100 WBC (Bld) 4.07 % [facility] WBC other (Bld) [#/Vol] 6.8 [facility] [place] CBC with Diffon 07-26-2024 Abs. Basophil <0.03 Normal 0.00-0.20 [facility] Comment on above: Performed By: #### T HOANG #### [facility] [address] [place] [address] Group Account Director: Sharath Dennis MD Abs.Imm.Granulocyte <0.03 Normal 0.00-0.30 [facility] Comment on above: Performed By: #### T ROPI #### [facility] [address] [place] [address] Dr[address] [place], [place] [address] Group Account Director: Sharath Dennis MD Abs.Neutrophil (Seg) 4.07 k/uL Normal 1.50-8.10 [facility] Comment on above: Performed By: #### T ROPI #### [address] [place], [place] [address] Group Account Director: Sharath Dennis MD Basophils/100 WBC (Bld) 0 % Normal 0-2 [facility] Comment on above: Performed By: #### T ROPI #### [address] [place] [address] Group Account Director: Sharath Dennis MD Eosinophils (Bld) [#/Vol] 0.30 10*3/uL Normal 0.00-0.44 [facility] Comment on above: Performed By: #### T ROPI #### [address] [place], [place] [address] Group Account Director: Sharath Dennis MD Eosinophils/100 WBC (Bld) 4 % Normal 1-4 [facility] Comment on above: Performed By: #### T ROPI #### [address] [place], [place] [address] Group Account Director: Sharath Dennis MD Erythrocyte distribution width (RBC) [Ratio] 13.6 % Normal 11.8-14.4 [facility] Comment on above: Performed By: #### T ROPI #### [address] [place] [id number] Group Account Director: Sharath Dennis MD Hematocrit (Bld) [Volume fraction] 32.5 % Low 36.3-47.1 [facility] Comment on above: Performed By: #### T ROPI #### [address] [place], [facility]83 Group Account Director: Sharath Dennis MD Hemoglobin (Bld) [Mass/Vol] 10.3 g/dL Low 11.9-15.1 [facility] Comment on above: Performed By: #### T ROPI #### [facility] [address] [place], [facility]83 Group Account Director: Sharath Dennis MD Immature granulocytes/100 WBC (Bld) 0 % Normal 0 [facility] Comment on above: Performed By: #### T ROPI #### [address] [place], [facility]83 Group Account Director: Sharath Dennis MD Lymphocytes (Bld) [#/Vol] 1.35 10*3/uL Normal 1.10-3.70 [facility] Comment on above: Performed By: #### T ROPI #### [address] [place], [facility]83 Group Account Director: Sharath Dennis MD Lymphocytes/100 WBC (Bld) 20 % Low 24-43 [facility] Comment on above: Performed By: #### T ROPI #### [address] [place], [facility]83 Group Account Director: Sharath Dennis MD MCH (RBC) [Entitic mass] 30.5 pg Normal 25.2-33.5 [facility] Comment on above: Performed By: #### T ROPI #### [address] [place], [facility]83 Group Account Director: Sharath Dennis MD MCHC (RBC) [Mass/Vol] 31.7 g/dL Normal 28.4-34.8 [facility] Comment on above: Performed By: #### T ROPI #### [address] [place], [facility]83 Group Account Director: Sharath Dennis MD MCV (RBC) [Entitic vol] 96.2 fL Normal 82.6-102.9 [facility] Comment on above: Performed By: #### T ROPI #### [facility] [address] [place], [place] [id number] Group Account Director: Sharath Dennis MD Monocytes (Bld) [#/Vol] 1.00 10*3/uL Normal 0.10-1.20 [facility] Comment on above: Performed By: #### T ROPI #### [facility] [address] [place] [address] Group Account Director: Sharath Dennis MD Monocytes/100 WBC (Bld) 15 % High 3-12 [facility] Comment on above: Performed By: #### T ROPI #### [facility] [address] [place], [facility]76 ( Group Account Director: Sharath Dennis MD Neutrophil (Seg) 61 % Normal 36-65 [facility] Comment on above: Performed By: #### T ROPI #### [facility] [address] [place], [place] [id number] Group Account Director: Sharath Dennis MD NRBC Automated 0.0 per 100 WBC Normal 0.0 [facility] Comment on above: Performed By: #### T ROPI #### [facility] [address] [place], [place] [address] Group Account Director: Sharath Dennis MD Platelet mean volume (Bld) [Entitic vol] 9.8 fL Normal 8.1-13.5 [facility] Comment on above: Performed By: #### T ROPI #### [facility] [address] [place] [address] Group Account Director: Sharath Dennis MD Platelets (Bld) [#/Vol] 245 10*3/uL Normal 138-453 [facility] Comment on above: Performed By: #### T ROPI #### [facility] [address] [place], [place] [address]83 Group Account Director: Sharath Dennis MD RBC (Bld) [#/Vol] 3.38 10*6/uL Low 3.95-5.11 [facility] Comment on above: Performed By: #### T ROPI #### [facility] [address] [place], [place] [id number] Group Account Director: Sharath Dennis MD WBC (Bld) [#/Vol] 6.8 10*3/uL Normal 3.5-11.3 [facility] Comment on above: Performed By: #### T ROPI #### [facility] [address] [place], [place] [address]83 Group Account Director: Sharath Dennis MD Comp Metabolic Profon 2024 Albumin [Mass/Vol] 4.1 g/dL Normal 3.5-5.2 [facility] Comment on above: Performed By: #### T ROPI #### [facility] [address] [place], [place] [id number] Group Account Director: Sharath Dennis MD Albumin/Glob Ratio 1.6 Normal 1.0-2.5 [facility] Comment on above: Performed By: #### T ROPI #### [facility] [address] [place], [place] [address]683 Group Account Director: Sharath Dennis MD Alkaline Phos 90 U/L Normal 35-104 [facility] Comment on above: Performed By: #### T ROPI #### [facility] [address] [place], [place] [address]339[address] Group Account Director: Sharath Dennis MD ALT [Catalytic activity/Vol] 15 U/L Normal 10-35 [facility] Comment on above: Performed By: #### T ROPI #### [facility] [address] [place], [place] [phone] Group Account Director: Sharath Dennis MD Anion gap [Moles/Vol] 12 mmol/L Normal 9-16 [facility] Comment on above: Performed By: #### T ROPI #### [facility] [address] [place], [place] [address]156283 Group Account Director: Sharath Dennis MD AST [Catalytic activity/Vol] 19 U/L Normal 10-35 [facility] Comment on above: Performed By: #### T ROPI #### [facility] [address] [place], [place] [address]229483 Group Account Director: Sharath Dennis MD Bilirubin [Mass/Vol] 0.3 mg/dL Normal 0.00-1.20 [facility] Comment on above: Performed By: #### T ROPI #### [facility] [address] [place], [place] 355[address]83 Group Account Director: Sharath Dennis MD BUN/CRE Ratio 24 High 9-20 [facility] Comment on above: Performed By: #### T ROPI #### [facility] [address] [place], [place] 120[address]383 Group Account Director: Sharath Dennis MD Calcium [Mass/Vol] 9.4 mg/dL Normal 8.6-10.4 [facility] Comment on above: Performed By: #### T ROPI #### [facility] [address] [place], [place] [address]83 Group Account Director: Sharath Dennis MD Chloride [Moles/Vol] 105 mmol/L Normal 98-107 [facility] Comment on above: Performed By: #### T ROPI #### [facility] [address] [place] [address] Group Account Director: Sharath Dennis MD CO2 [Moles/Vol] 22 mmol/L Normal 20-31 [facility] Comment on above: Performed By: #### T ROPI #### [facility] [address] [place] [address] Group Account Director: Sharath Dennis MD Creatinine [Mass/Vol] 1.4 mg/dL High 0.50-0.90 [facility] Comment on above: Performed By: #### T ROPI #### [facility] [address] [place], [place] [phone] Group Account Director: Sharath Dennis MD GFR/1.73 sq M.predicted among non-blacks MDRD (S/P/Bld) [Vol rate/Area] 39 mL/min/{1.73_m2} Low >60 [facility] Comment on above: Result Comment: These results [...] secretion. Performed By: #### T ROPI #### [facility] [address] [place] [address] Group Account Director: Sharath Dnenis MD Glucose [Mass/Vol] 90 mg/dL Normal 74-99 [facility] Comment on above: Performed By: #### T ROPI #### [facility] [address] [place], [place] [phone] Group Account Director: Sharath Dennis MD Potassium [Moles/Vol] 4.5 mmol/L Normal 3.7-5.3 [facility] Comment on above: Performed By: #### T ROPI #### [facility] [address] [place], [place] [phone] Group Account Director: Sharath Dennis MD Protein [Mass/Vol] 6.7 g/dL Normal 6.6-8.7 [facility] Comment on above: Performed By: #### T ROPI #### [facility] [address] [place] [id number] Group Account Director: Sharath Dennis MD Sodium [Moles/Vol] 139 mmol/L Normal 136-145 [facility] Comment on above: Performed By: #### T LISSYI #### [facility] [address] [place], [place] [phone] Group Account Director: Sharath Dennis MD Urea nitrogen [Mass/Vol] 33 mg/dL High 8-23 [facility] Comment on above: Performed By: #### T HOANG #### [facility] [address] [place] [address] Group Account Director: Sharath Dennis MD Comprehensive Metabolic Pane [facility] 07-26-2024 Albumin [Mass/Vol] 4.1 g/dL 3.5 - 5.2 g/dL [facility] Albumin/Globulin [Mass ratio] 1.6 {ratio} 1.0 - 2.5 [facility] ALP [Catalytic activity/Vol] 90 U/L 35 - 104 U/L [facility] ALT [Catalytic activity/Vol] 15 U/L 10 - 35 U/L [facility] Anion gap [Moles/Vol] 12 mmol/L 9 - 16 mmol/L [facility] AST [Catalytic activity/Vol] 19 U/L 10 - 35 U/L [facility] Bilirubin [Mass/Vol] 0.3 mg/dL 0.00 - 1.20 mg/dL [facility] Calcium [Mass/Vol] 9.4 mg/dL 8.6 - 10. 4 mg/dL [facility] Chloride [Moles/Vol] 105 mmol/L 98 - 10 7 mmol/L [facility] CO2 [Moles/Vol] 22 mmol/L 20 - 31 mmol/L [facility] Creatinine [Mass/Vol] 1.4 mg/dL High 0.50 - 0.90 mg/dL [facility] Est, Glom Filt Rate 39 Low - PINF [facility] Comment on above: These results [...] [Mass/Vol] 90 mg/dL 74 - 99 mg/dL [facility] Interpretation and review of laboratory results Abnormal [facility] Potassium [Moles/Vol] 4.5 mmol/L 3.7 - 5.3 mmol/L [facility] Protein [Mass/Vol] 6.7 g/dL 6.6 - 8.7 g/dL [facility] Sodium [Moles/Vol] 139 mmol/L 136 - 145 mmol/L [facility] Urea nitrogen [Mass/Vol] 33 mg/dL High 8 - 23 mg/dL [facility] Urea nitrogen/Creatinine [Mass ratio] 24 mg/mg High 9 - 20 [facility] [place] Microscopic Urinalysison Bacteria LM Ql (Urine sed) TRACE Abnormal None [facility] Epithelial cells LM.HPF (Urine sed) [#/Area] 2 TO 5 [facility] Interpretation and review of laboratory results Abnormal [facility] Mucus Ql (Urine sed) TRACE Abnormal None [facility] RBC LM.HPF (Urine sed) [#/Area] 0 TO 2 [facility] WBC LM.HPF (Urine sed) [#/Area] 2 TO 5 [facility] UA w/Reflex Cultureon 2024 Bilirubin, SemiQt,Ur Negative Normal NEG [facility] Comment on above: Performed By: #### U MICAO, UAX #### [facility] [address] [place] [address] Group Account Director: Sharath Dennis MD Blood, Urine Negative Normal NEG [facility] Comment on above: Performed By: #### U MICAO, UAX #### [facility] [address] [place] [address] Group Account Director: Sharath Dennis MD Clarity (U) Clear Normal CLEAR [facility] Comment on above: Performed By: #### U MICAO, UAX #### [facility] [address] [place], [place] [phone] Group Account Director: Sharath Dennis MD Color (U) Yellow Normal YEL [facility] Comment on above: Performed By: #### U MICAO, UAX #### [facility] [address] [place], [place] [phone] Group Account Director: Sharath Dennis MD Glucose Ql (U) Negative Normal NEG [facility] Comment on above: Performed By: #### U MICAO, UAX #### [address] [place], [place] [phone] Group Account Director: Sharath Dennis MD Ketones Ql (U) Negative Normal NEG [facility] Comment on above: Performed By: #### U MICAO, UAX #### [facility] [address] [place] [address] Dr[address] [place], [place] [phone] Group Account Director: Sharath Dennis MD Leukocyte esterase Test strip Ql (U) TRACE Abnormal NEG [facility] Comment on above: Performed By: #### U MICAO, UAX #### [facility] [address] [place] [address] [place], [place] [phone] Group Account Director: Sharath Dennis MD Nitrite,Ur Negative Normal NEG [facility] Comment on above: Performed By: #### U MICAO, UAX #### [facility] [address] [place], [place] [phone] Group Account Director: Sharath Dennis MD PH,Ur 6.0 Normal 5.0-9.0 [facility] Comment on above: Performed By: #### U MICAO, UAX #### [facility] [address] [place], [place] [address]83 Group Account Director: Sharath Dennis MD Protein Ql (U) Negative Normal NEG [facility] Comment on above: Performed By: #### U MICAO, UAX #### [facility] [address] [place] [address] Group Account Director: Sharath Dennis MD Spec. Loving,Ur 1.015 Normal 1.010-1.020 [facility] Comment on above: Performed By: #### U LASHANDAO, UAX #### [facility] [address] [place] [address] Group Account Director: Sharath Dennis MD Urobilinogen,Ur Normal Normal 0.0-1.0 [facility] Comment on above: Performed By: #### U ARMAND, UAX #### [facility] [address] [place] [address] [place] [address] Group Account Director: Sharath Dennis MD Urinalysis with Reflex to Cu ltureon 07-26-2024 Bilirubin Ql (U) Negative NEGATIVE Bon [employer] [facility] Clarity (U) Clear Clear [facility] Color (U) Yellow Yellow [facility] Glucose Test strip (U) [Mass/Vol] Negative NEGATIVE mg/dL [facility] Hemoglobin Auto test strip Ql (U) Negative NEGATIVE [facility] Interpretation and review of laboratory results Abnormal [facility] Ketones (U) [Mass/Vol] Negative NEGAT MAJOR mg/dL [facility] Leukocyte esterase Test strip Ql (U) TRACE Abnormal NEGATIVE [facility] Nitrite Ql (U) Negative NEGATIVE [facility] pH (U) 6 [pH] 5.0 - 9.0 [facility] Protein (U) [Mass/Vol] Negative NEGAT MAJOR mg/dL [facility] Specific gravity (U) [Rel density] 1.015 1.010 - 1.020 [facility] Urobilinogen Qn (U) Normal 0.0 - 1. 0 EU/dL [facility] Urinalysis,Microon Bacteria TRACE Abnormal NONE [facility] Comment on above: Performed By: #### U MICAO, UAX #### [facility] [address] [place], [place] [phone] Group Account Director: Sharath Dennis MD Epithelial cells LM Ql (Urine sed) 2 TO 5 Normal 0-25 [facility] Comment on above: Performed By: #### U MICAO, UAX #### [facility] [address] [place], [place] [phone] Group Account Director: Sharath Dennis MD Mucus Strands TRACE Abnormal NONE [facility] Comment on above: Performed By: #### U MICAO, UAX #### [facility] [address] [place], [place] [address]500[address] Group Account Director: Sharath Dennis MD Urine RBC's 0 TO 2 Normal 0-2 [facility] Comment on above: Performed By: #### U MICAO, UAX #### [facility] [address] [place], [place] [address]83 Group Account Director: Sharath Dennis MD Urine WBC's 2 TO 5 Normal 0-5 [facility] Comment on above: Performed By: #### U MICAO, UAX #### [facility] [address] [place], [place] [id number] Group Account Director: Sharath Dennis MD Cult, [facility] 07-16-2024 Cult, Blood Specimen Description .BLOOD Special Requests RT WRIST 7 ML Culture NO GROWTH 5 DAYS Report Status FINAL 07/16/2024 [facility] Comment on above: Performed By: #### U MICAO, UAX #### [facility] [address] [place] [address] Group Account Director: Sharath Dennis MD Cult,Bloodon 07-16-2024 Cult,Blood Specimen Description .BLOOD Special Requests RT HAND 4ML Culture NO GROWTH 5 DAYS Report Status FINAL 07/16/2024 [facility] Comment on above: Performed By: #### B CONCESSION ATTENDANT #### [facility] [address] [place] [address] Group Account Director: Sharath Dennis MD Basic Metab w/rfx MGon 07-14 Anion gap [Moles/Vol] 10 mmol/L Normal 9-16 [facility] Comment on above: Performed By: #### U RC #### [address] [address] Group Account Director: Wellington Back MD BUN/CRE Ratio 21 High 9-20 [facility] Comment on above: Performed By: #### U RC #### [address] [address] Group Account Director: Wellington Back MD Calcium [Mass/Vol] 8.5 mg/dL Low 8.6-10.4 [facility] Comment on above: Performed By: #### U RC #### [address] [address] Group Account Director: Wellington Back MD Chloride [Moles/Vol] 113 mmol/L High 98-107 [facility] Comment on above: Performed By: #### U RC #### [address] [address] Group Account Director: Wellington Back MD CO2 [Moles/Vol] 20 mmol/L Normal 20-31 [facility] Comment on above: Performed By: #### U RC #### [address] [address] Group Account Director: Wellington Back MD Creatinine [Mass/Vol] 0.9 mg/dL Normal 0.50-0.90 [facility] Comment on above: Performed By: #### U RC #### [address] [address] Group Account Director: Wellington Back MD GFR/1.73 sq M.predicted among non-blacks MDRD (S/P/Bld) [Vol rate/Area] 61 mL/min/{1.73_m2} Normal >60 [facility] Comment on above: Result Comment: These results [...] secretion. Performed By: #### U RC #### [facility] [address] [place] [address] Group Account Director: Wellington Back MD Glucose [Mass/Vol] 93 mg/dL Normal 74-99 [facility] Comment on above: Performed By: #### U RC #### [facility] [employer] [address] [place] [address] Group Account Director: Wellington Back MD Potassium [Moles/Vol] 4.1 mmol/L Normal 3.7-5.3 [facility] Comment on above: Performed By: #### U RC #### [facility] [employer] [address] [place] [address] Group Account Director: Wellington Back MD Sodium [Moles/Vol] 143 mmol/L Normal 136-145 [facility] Comment on above: Performed By: #### U RC #### [address] [address] Group Account Director: Wellington Back MD Urea nitrogen [Mass/Vol] 19 mg/dL Normal 8-23 [facility] Comment on above: Performed By: #### U RC #### [address] [address] Group Account Director: Wellington Back MD Basic Metabolic Panel w/ Ref rima to MGon 07-14-2024 Anion gap [Moles/Vol] 10 mmol/L 9 - 16 mmol/L [facility] Calcium [Mass/Vol] 8.5 mg/dL Low 8.6 - 10. 4 mg/dL [facility] Chloride [Moles/Vol] 113 mmol/L High 98 - 10 7 mmol/L [facility] CO2 [Moles/Vol] 20 mmol/L 20 - 31 mmol/L [facility] Creatinine [Mass/Vol] 0.9 mg/dL 0.50 - 0.90 mg/dL [facility] [place] Moraest Rate 61 - PINF [facility] Comment on above: These results [...] [Mass/Vol] 93 mg/dL 74 - 99 mg/dL [facility] Interpretation and review of laboratory results Abnormal [facility] Potassium [Moles/Vol] 4.1 mmol/L 3.7 - 5.3 mmol/L [facility] Sodium [Moles/Vol] 143 mmol/L 136 - 145 mmol/L [facility] Urea nitrogen [Mass/Vol] 19 mg/dL 8 - 23 mg/dL [facility] Urea nitrogen/Creatinine [Mass ratio] 21 mg/mg High 9 - 20 [facility] CBC auto differentialon 06-0 Basophils (Bld) [#/Vol] [facility] Basophils/100 WBC (Bld) 0 % 0 - 2 % [facility] Eosinophils (Bld) [#/Vol] 0.27 10*3/uL [facility] Eosinophils/100 WBC (Bld) 5 % High 1 - 4 % [facility] Erythrocyte distribution width (RBC) [Ratio] 13.2 % 11.8 - 14.4 % [facility] Hematocrit (Bld) [Volume fraction] 32.4 % Low 36.3 - 47.1 % [facility] Hemoglobin (Bld) [Mass/Vol] 10.2 g/dL Low 11.9 - 15.1 g/dL [facility] Immature granulocytes (Bld) [#/Vol] [facility] Immature granulocytes/100 WBC (Bld) 0 % 0 [facility] Interpretation and review of laboratory results Abnormal [facility] Lymphocytes/100 WBC (Bld) 26 % 24 - 43 % [facility] Lymphocytes/100 WBC (Bld) 1.51 % [facility] MCH (RBC) [Entitic mass] 30.3 pg 25.2 - 33.5 pg [facility] MCHC (RBC) [Mass/Vol] 31.5 g/dL 28.4 - 34.8 g/dL [facility] MCV (RBC) [Entitic vol] 96.1 fL 82.6 - 102.9 fL [facility] Monocytes/100 WBC (Bld) 14 % High 3 - 12 % [facility] Monocytes/100 WBC (Bld) 0.83 % [facility] Neutrophils/100 WBC (Bld) 55 % 36 - 65 % [facility] Nucleated RBC/100 WBC (Bld) [Ratio] 0 % 0.0 per 100 WBC [facility] Platelet mean volume (Bld) [Entitic vol] 9.7 fL 8.1 - 13.5 fL [facility] Platelets (Bld) [#/Vol] 195 10*3/uL [facility] RBC (Bld) [#/Vol] 3.37 10*6/uL Low 3.95 - 5.1 1 m/uL [facility] Segmented neutrophils/100 WBC (Bld) 3.16 % [facility] WBC other (Bld) [#/Vol] 5.8 [facility] CBC with Diffon 07-14-2024 Abs. Basophil <0.03 Normal 0.00-0.20 [facility] Comment on above: Performed By: #### U #### [employer] [address] [place], [place] [id number] Group Account Director: Wellington Back MD Abs.Imm.Granulocyte <0.03 Normal 0.00-0.30 [facility] Comment on above: Performed By: #### U RC #### [address] [address] Group Account Director: Wellington Back MD Abs.Neutrophil (Seg) 3.16 k/uL Normal 1.50-8.10 [facility] Comment on above: Performed By: #### U RC #### [address] [address] Group Account Director: Wellington Back MD Basophils/100 WBC (Bld) 0 % Normal 0-2 [facility] Comment on above: Performed By: #### U RC #### [address] [address] Group Account Director: Wellington Back MD Eosinophils (Bld) [#/Vol] 0.27 10*3/uL Normal 0.00-0.44 [facility] Comment on above: Performed By: #### U RC #### [address] [address] Group Account Director: Wellington Back MD Eosinophils/100 WBC (Bld) 5 % High 1-4 [facility] Comment on above: Performed By: #### U RC #### [address] [address] Group Account Director: Wellington Back MD Erythrocyte distribution width (RBC) [Ratio] 13.2 % Normal 11.8-14.4 [facility] Comment on above: Performed By: #### U RC #### [address] [address] Group Account Director: Wellington Back MD Hematocrit (Bld) [Volume fraction] 32.4 % Low 36.3-47.1 [facility] Comment on above: Performed By: #### U RC #### [address] [address] Group Account Director: Wellington Back MD Hemoglobin (Bld) [Mass/Vol] 10.2 g/dL Low 11.9-15.1 [facility] Comment on above: Performed By: #### U RC #### [address] [address] Group Account Director: Wellington Back MD Immature granulocytes/100 WBC (Bld) 0 % Normal 0 [facility] Comment on above: Performed By: #### U RC #### [address] [address] Group Account Director: Wellington Back MD Lymphocytes (Bld) [#/Vol] 1.51 10*3/uL Normal 1.10-3.70 [facility] Comment on above: Performed By: #### U RC #### [address] [address] Group Account Director: Wellington Back MD Lymphocytes/100 WBC (Bld) 26 % Normal 24-43 [facility] Comment on above: Performed By: #### U RC #### [address] [address] Group Account Director: Wellington Back MD MCH (RBC) [Entitic mass] 30.3 pg Normal 25.2-33.5 [facility] Comment on above: Performed By: #### U RC #### [address] [address] Group Account Director: Wellington Back MD MCHC (RBC) [Mass/Vol] 31.5 g/dL Normal 28.4-34.8 [facility] Comment on above: Performed By: #### U RC #### [address] [address] Group Account Director: Wellington Back MD MCV (RBC) [Entitic vol] 96.1 fL Normal 82.6-102.9 [facility] Comment on above: Performed By: #### U RC #### [address] [address] Group Account Director: Wellington Back MD Monocytes (Bld) [#/Vol] 0.83 10*3/uL Normal 0.10-1.20 [facility] Comment on above: Performed By: #### U RC #### [address] [address] Group Account Director: Wellington Back MD Monocytes/100 WBC (Bld) 14 % High 3-12 [facility] Comment on above: Performed By: #### U RC #### [address] [address] Group Account Director: Wellington Back MD Neutrophil (Seg) 55 % Normal 36-65 [facility] Comment on above: Performed By: #### U RC #### [address] [address] Group Account Director: Wellington Back MD NRBC Automated 0.0 per 100 WBC Normal 0.0 [facility] Comment on above: Performed By: #### U RC #### [address] [address] Group Account Director: Wellington Back MD Platelet mean volume (Bld) [Entitic vol] 9.7 fL Normal 8.1-13.5 [facility] Comment on above: Performed By: #### U RC #### [address] [address] Group Account Director: Wellington Back MD Platelets (Bld) [#/Vol] 195 10*3/uL Normal 138-453 [facility] Comment on above: Performed By: #### U RC #### [address] [address] Group Account Director: Wellington Back MD RBC (Bld) [#/Vol] 3.37 10*6/uL Low 3.95-5.11 [facility] Comment on above: Performed By: #### U RC #### [address] [place] [id number] Group Account Director: Wellington Back MD WBC (Bld) [#/Vol] 5.8 10*3/uL Normal 3.5-11.3 [facility] Comment on above: Performed By: #### U RC #### [facility] [address] [place] [address] Group Account Director: Wellington Back MD EKG Rhythm Stripon [facility] Basic Metab w/rfx MGon 07-13 Anion gap [Moles/Vol] 11 mmol/L Normal 9-16 [facility] Comment on above: Performed By: #### B CONCESSION ATTENDANT #### [facility] [address] [place], [place] [id number] Group Account Director: Sharath Dennis MD BUN/CRE Ratio 23 High 9-20 [facility] Comment on above: Performed By: #### B CONCESSION ATTENDANT #### [facility] [address] [place], [place] [id number] Group Account Director: Sharath Dennis MD Calcium [Mass/Vol] 8.6 mg/dL Normal 8.6-10.4 [facility] Comment on above: Performed By: #### B CONCESSION ATTENDANT #### [facility] [address] [place] [id number] Group Account Director: Sharath Dennis MD Chloride [Moles/Vol] 110 mmol/L High 98-107 [facility] Comment on above: Performed By: #### B CONCESSION ATTENDANT #### [facility] [address] [place], [place] [id number] Group Account Director: Sharath Dennis MD CO2 [Moles/Vol] 19 mmol/L Low 20-31 [facility] Comment on above: Performed By: #### B CONCESSION ATTENDANT #### [facility] [address] [place] [id number] Group Account Director: Sharath Dennis MD Creatinine [Mass/Vol] 0.9 mg/dL Normal 0.50-0.90 [facility] Comment on above: Performed By: #### B CONCESSION ATTENDANT #### [facility] [address] [place] [address] Group Account Director: Sharath eDnnis MD GFR/1.73 sq M.predicted among non-blacks MDRD (S/P/Bld) [Vol rate/Area] 60 mL/min/{1.73_m2} Low >60 [facility] Comment on above: Result Comment: These results [...] renal tubular secretion. Performed By: #### B CONCESSION ATTENDANT #### [facility] [address] [place] [address] Dr[address] [place], [place] [phone] Group Account Director: Sharath Dennis MD Glucose [Mass/Vol] 87 mg/dL Normal 74-99 [facility] Comment on above: Performed By: #### B CONCESSION ATTENDANT #### [address] [place], [place] [phone] Group Account Director: Sharath Dennis MD Potassium [Moles/Vol] 4.2 mmol/L Normal 3.7-5.3 [facility] Comment on above: Performed By: #### B CONCESSION ATTENDANT #### [facility] [address] [place], [place] [id number] Group Account Director: Sharath Dennis MD Sodium [Moles/Vol] 140 mmol/L Normal 136-145 [facility] Comment on above: Performed By: #### B CONCESSION ATTENDANT #### [facility] [address] [place] [address] [place] [place], [place] [phone] Group Account Director: Sharath Dennis MD Urea nitrogen [Mass/Vol] 21 mg/dL Normal 8-23 [facility] Comment on above: Performed By: #### B CONCESSION ATTENDANT #### [facility] [address] [place] [address] Group Account Director: Sharath Dennis MD Basic Metabolic Panel w/ Ref rima to MGon 07-13-2024 Anion gap [Moles/Vol] 11 mmol/L 9 - 16 mmol/L [facility] Calcium [Mass/Vol] 8.6 mg/dL 8.6 - 10. 4 mg/dL [facility] Chloride [Moles/Vol] 110 mmol/L High 98 - 10 7 mmol/L [facility] CO2 [Moles/Vol] 19 mmol/L Low 20 - 31 mmol/L [facility] Creatinine [Mass/Vol] 0.9 mg/dL 0.50 - 0.90 mg/dL [facility] Est, Glom Filt Rate 60 Low - PINF [facility] Comment on above: These results [...] [Mass/Vol] 87 mg/dL 74 - 99 mg/dL [facility] Interpretation and review of laboratory results Abnormal [facility] Potassium [Moles/Vol] 4.2 mmol/L 3.7 - 5.3 mmol/L [facility] Sodium [Moles/Vol] 140 mmol/L 136 - 145 mmol/L [facility] Urea nitrogen [Mass/Vol] 21 mg/dL 8 - 23 mg/dL [facility] Urea nitrogen/Creatinine [Mass ratio] 23 mg/mg High 9 - 20 [facility] CBC auto differentialon 06 Basophils (Bld) [#/Vol] [facility] Basophils/100 WBC (Bld) 0 % 0 - 2 % [facility] Eosinophils (Bld) [#/Vol] 0.22 10*3/uL [facility] Eosinophils/100 WBC (Bld) 3 % 1 - 4 % [facility] Erythrocyte distribution width (RBC) [Ratio] 13.4 % 11.8 - 14.4 % [facility] Hematocrit (Bld) [Volume fraction] 32.5 % Low 36.3 - 47.1 % [facility] Hemoglobin (Bld) [Mass/Vol] 10.4 g/dL Low 11.9 - 15.1 g/dL [facility] Immature granulocytes (Bld) [#/Vol] [facility] Immature granulocytes/100 WBC (Bld) 0 % 0 [facility] Interpretation and review of laboratory results Abnormal [facility] Lymphocytes/100 WBC (Bld) 19 % Low 24 - 43 % [facility] Lymphocytes/100 WBC (Bld) 1.4 % [facility] MCH (RBC) [Entitic mass] 31 pg 25.2 - 33.5 pg [facility] MCHC (RBC) [Mass/Vol] 32 g/dL 28.4 - 34.8 g/dL [facility] MCV (RBC) [Entitic vol] 96.7 fL 82.6 - 102.9 fL [facility] Monocytes/100 WBC (Bld) 11 % 3 - 12 % [facility] Monocytes/100 WBC (Bld) 0.8 % [facility] Neutrophils/100 WBC (Bld) 67 % High 36 - 65 % [facility] Nucleated RBC/100 WBC (Bld) [Ratio] 0 % 0.0 per 100 WBC [facility] Platelet mean volume (Bld) [Entitic vol] 9.4 fL 8.1 - 13.5 fL [facility] Platelets (Bld) [#/Vol] 196 10*3/uL [facility] RBC (Bld) [#/Vol] 3.36 10*6/uL Low 3.95 - 5.1 1 m/uL [facility] Segmented neutrophils/100 WBC (Bld) 5.07 % [facility] WBC other (Bld) [#/Vol] 7.5 [facility] CBC with Diffon 07-13-2024 Abs. Basophil <0.03 Normal 0.00-0.20 [facility] Comment on above: Performed By: #### B CONCESSION ATTENDANT #### [facility] [address] [place] [address] [place] [place], [place] [phone] Group Account Director: Sharath Dennis MD Abs.Imm.Granulocyte <0.03 Normal 0.00-0.30 [facility] Comment on above: Performed By: #### B CONCESSION ATTENDANT #### [address] [place], [facility]83 Group Account Director: Sharath Dennis MD Abs.Neutrophil (Seg) 5.07 k/uL Normal 1.50-8.10 [facility] Comment on above: Performed By: #### B CONCESSION ATTENDANT #### [address] [place], [facility]83 Group Account Director: Sharath Dennis MD Basophils/100 WBC (Bld) 0 % Normal 0-2 [facility] Comment on above: Performed By: #### B CONCESSION ATTENDANT #### [address] [place], [place] [phone] Group Account Director: Sharath Dennis MD Eosinophils (Bld) [#/Vol] 0.22 10*3/uL Normal 0.00-0.44 [facility] Comment on above: Performed By: #### B CONCESSION ATTENDANT #### [address] [place], [place] [phone] Group Account Director: Sharath Dennis MD Eosinophils/100 WBC (Bld) 3 % Normal 1-4 [facility] Comment on above: Performed By: #### B CONCESSION ATTENDANT #### [address] [place], [place] [phone] Group Account Director: Sharath Dennis MD Erythrocyte distribution width (RBC) [Ratio] 13.4 % Normal 11.8-14.4 [facility] Comment on above: Performed By: #### B CONCESSION ATTENDANT #### [facility] [address] [place], [place] [phone] Group Account Director: Sharath Dennis MD Hematocrit (Bld) [Volume fraction] 32.5 % Low 36.3-47.1 [facility] Comment on above: Performed By: #### B CONCESSION ATTENDANT #### [facility] [address] [place] [facility]83 Group Account Director: Sharath Dennis MD Hemoglobin (Bld) [Mass/Vol] 10.4 g/dL Low 11.9-15.1 [facility] Comment on above: Performed By: #### B CONCESSION ATTENDANT #### [address] [place] [facility]83 Group Account Director: Sharath Dennis MD Immature granulocytes/100 WBC (Bld) 0 % Normal 0 [facility] Comment on above: Performed By: #### B CONCESSION ATTENDANT #### [facility] [address] [place] [address] [place] [facility]83 Group Account Director: Sharath Dennis MD Lymphocytes (Bld) [#/Vol] 1.40 10*3/uL Normal 1.10-3.70 [facility] Comment on above: Performed By: #### B CONCESSION ATTENDANT #### [facility] [address] [place] [facility]83 Group Account Director: Sharath Dennis MD Lymphocytes/100 WBC (Bld) 19 % Low 24-43 [facility] Comment on above: Performed By: #### B CONCESSION ATTENDANT #### [facility] [address] [place] [facility]83 Group Account Director: Sharath Dennis MD MCH (RBC) [Entitic mass] 31.0 pg Normal 25.2-33.5 [facility] Comment on above: Performed By: #### B CONCESSION ATTENDANT #### [facility] [address] [place] [address] Dr[place] [facility]84 Group Account Director: Sharath Dennis MD MCHC (RBC) [Mass/Vol] 32.0 g/dL Normal 28.4-34.8 [facility] Comment on above: Performed By: #### B CONCESSION ATTENDANT #### [facility] [address] [place], [place] [phone] Group Account Director: Sharath Dennis MD MCV (RBC) [Entitic vol] 96.7 fL Normal 82.6-102.9 [facility] Comment on above: Performed By: #### B CONCESSION ATTENDANT #### [address] [place], [place] [phone] Group Account Director: Sharath Dennis MD Monocytes (Bld) [#/Vol] 0.80 10*3/uL Normal 0.10-1.20 [facility] Comment on above: Performed By: #### B CONCESSION ATTENDANT #### [address] [place], [place] 128[address]83 Group Account Director: Sharath Dnenis MD Monocytes/100 WBC (Bld) 11 % Normal 3-12 [facility] Comment on above: Performed By: #### B CONCESSION ATTENDANT #### [address] [place] [address] Group Account Director: Sharath Dennis MD Neutrophil (Seg) 67 % High 36-65 [facility] Comment on above: Performed By: #### B CONCESSION ATTENDANT #### [facility] [address] [place] [address] Dr[place], [facility]83 Group Account Director: Sharath Dennis MD NRBC Automated 0.0 per 100 WBC Normal 0.0 [facility] Comment on above: Performed By: #### B CONCESSION ATTENDANT #### [address] [place], [place] [phone] Group Account Director: Sharath Dennis MD Platelet mean volume (Bld) [Entitic vol] 9.4 fL Normal 8.1-13.5 [facility] Comment on above: Performed By: #### B CONCESSION ATTENDANT #### [facility] [address] [place] [address] Group Account Director: Sharath Dennis MD Platelets (Bld) [#/Vol] 196 10*3/uL Normal 138-453 [facility] Comment on above: Performed By: #### B CONCESSION ATTENDANT #### [facility] [address] [place] [address] Group Account Director: Sharath Dennis MD RBC (Bld) [#/Vol] 3.36 10*6/uL Low 3.95-5.11 [facility] Comment on above: Performed By: #### B CONCESSION ATTENDANT #### [facility] [address] [place] [address] Group Account Director: Sharath Dennis MD WBC (Bld) [#/Vol] 7.5 10*3/uL Normal 3.5-11.3 [facility] Comment on above: Performed By: #### B CONCESSION ATTENDANT #### [facility] [address] [place], [place] [phone] Group Account Director: Sharath Dennis MD Cult,Urineon 07-13-2024 Cult,Urine Specimen [...] Tobramycin <=1 SUSCEPTIBLE Trimethoprim/Sulfa <=20 SUSCEPTIBLE Susceptible [facility] Comment on above: Performed By: #### B CONCESSION ATTENDANT #### [facility] [address] [place], [place] [phone] Group Account Director: Sharath Dennis MD Urine cultureon 07-13-2024 Interpretation and review of laboratory results Abnormal [facility] Microorganism identified Cx Nom (Unsp spec) ESCHERICHIA COLI >100,000 CFU/ML Identification by MALDI-TOF Abnormal [facility] Specimen Description .URINE [facility] Basic Metab w/rfx MGon 07-12 Anion gap [Moles/Vol] 9 mmol/L Normal 9-16 [facility] Comment on above: Performed By: #### B CONCESSION ATTENDANT #### [facility] [address] [place] [address] Group Account Director: Sharath Dennis MD BUN/CRE Ratio 24 High 9-20 [facility] Comment on above: Performed By: #### B CONCESSION ATTENDANT #### [facility] [address] [place], [place] [address]83 Group Account Director: Sharath Dennis MD Calcium [Mass/Vol] 8.5 mg/dL Low 8.6-10.4 [facility] Comment on above: Performed By: #### B CONCESSION ATTENDANT #### [facility] [address] [place], [place] [address]83 Group Account Director: Sharath Dennis MD Chloride [Moles/Vol] 112 mmol/L High 98-107 [facility] Comment on above: Performed By: #### B CONCESSION ATTENDANT #### [facility] [address] [place], [place] [phone] Group Account Director: Sharath Dennis MD CO2 [Moles/Vol] 22 mmol/L Normal 20-31 [facility] Comment on above: Performed By: #### B CONCESSION ATTENDANT #### [facility] [address] [place] [address] Group Account Director: Sharath Dennis MD Creatinine [Mass/Vol] 1.2 mg/dL High 0.50-0.90 [facility] Comment on above: Performed By: #### B CONCESSION ATTENDANT #### [facility] [address] [place] [address] Group Account Director: Sharath Dennis MD GFR/1.73 sq M.predicted among non-blacks MDRD (S/P/Bld) [Vol rate/Area] 46 mL/min/{1.73_m2} Low >60 [facility] Comment on above: Result Comment: These results [...] renal tubular secretion. Performed By: #### B CONCESSION ATTENDANT #### [facility] [address] [place] [address] Group Account Director: Sharath Dennis MD Glucose [Mass/Vol] 104 mg/dL High 74-99 [facility] Comment on above: Performed By: #### B CONCESSION ATTENDANT #### [facility] [address] [place] [address] Group Account Director: Sharath Dennis MD Potassium [Moles/Vol] 4.5 mmol/L Normal 3.7-5.3 [facility] Comment on above: Performed By: #### B CONCESSION ATTENDANT #### [facility] [address] [place] [address] Group Account Director: Sharath Dennis MD Sodium [Moles/Vol] 143 mmol/L Normal 136-145 [facility] Comment on above: Performed By: #### B CONCESSION ATTENDANT #### [facility] [address] [place] [address] Group Account Director: Sharath Dennis MD Urea nitrogen [Mass/Vol] 29 mg/dL High 8-23 [facility] Comment on above: Performed By: #### B CONCESSION ATTENDANT #### [facility] [address] [place] [address] Group Account Director: Sharath Dennis MD Basic Metabolic Panel w/ Ref rima to MGon 07-12-2024 Anion gap [Moles/Vol] 9 mmol/L 9 - 16 mmol/L [facility] Calcium [Mass/Vol] 8.5 mg/dL Low 8.6 - 10. 4 mg/dL [facility] Chloride [Moles/Vol] 112 mmol/L High 98 - 10 7 mmol/L [facility] CO2 [Moles/Vol] 22 mmol/L 20 - 31 mmol/L [facility] Creatinine [Mass/Vol] 1.2 mg/dL High 0.50 - 0.90 mg/dL [facility] Est, Glophil Filt Rate 46 Low - PINF [facility] Comment on above: These results [...] 104 mg/dL High 74 - 99 mg/dL [facility] Interpretation and review of laboratory results Abnormal [facility] Potassium [Moles/Vol] 4.5 mmol/L 3.7 - 5.3 mmol/L [facility] Sodium [Moles/Vol] 143 mmol/L 136 - 145 mmol/L [facility] Urea nitrogen [Mass/Vol] 29 mg/dL High 8 - 23 mg/dL [facility] Urea nitrogen/Creatinine [Mass ratio] 24 mg/mg High 9 - 20 [facility] CBC auto differentialon Basophils (Bld) [#/Vol] [facility] Basophils/100 WBC (Bld) 0 % 0 - 2 % [facility] Eosinophils (Bld) [#/Vol] 0.21 10*3/uL [facility] Eosinophils/100 WBC (Bld) 4 % 1 - 4 % [facility] Erythrocyte distribution width (RBC) [Ratio] 13.4 % 11.8 - 14.4 % [facility] Hematocrit (Bld) [Volume fraction] 31.1 % Low 36.3 - 47.1 % [facility] Hemoglobin (Bld) [Mass/Vol] 9.8 g/dL Low 11.9 - 15.1 g/dL [facility] Immature granulocytes (Bld) [#/Vol] [facility] Immature granulocytes/100 WBC (Bld) 0 % 0 [facility] Interpretation and review of laboratory results Abnormal [facility] Lymphocytes/100 WBC (Bld) 24 % 24 - 43 % [facility] Lymphocytes/100 WBC (Bld) 1.43 % [facility] MCH (RBC) [Entitic mass] 30.3 pg 25.2 - 33.5 pg [facility] MCHC (RBC) [Mass/Vol] 31.5 g/dL 28.4 - 34.8 g/dL [facility] MCV (RBC) [Entitic vol] 96.3 fL 82.6 - 102.9 fL [facility] Monocytes/100 WBC (Bld) 15 % High 3 - 12 % [facility] Monocytes/100 WBC (Bld) 0.91 % [facility] Neutrophils/100 WBC (Bld) 57 % 36 - 65 % [facility] Nucleated RBC/100 WBC (Bld) [Ratio] 0 % 0.0 per 100 WBC [facility] Platelet mean volume (Bld) [Entitic vol] 9.7 fL 8.1 - 13.5 fL [facility] Platelets (Bld) [#/Vol] 188 10*3/uL [facility] RBC (Bld) [#/Vol] 3.23 10*6/uL Low 3.95 - 5.1 1 m/uL [facility] Segmented neutrophils/100 WBC (Bld) 3.42 % [facility] WBC other (Bld) [#/Vol] 6 [facility] CBC with Diffon 07-12-2024 Abs. Basophil <0.03 Normal 0.00-0.20 [facility] Comment on above: Performed By: #### B CONCESSION ATTENDANT #### [facility] [address] [place], [place] [address] Group Account Director: Sharath Dennis MD Abs.Imm.Granulocyte <0.03 Normal 0.00-0.30 [facility] Comment on above: Performed By: #### B CONCESSION ATTENDANT #### [address] [place] [address] Group Account Director: Sharath Dennis MD Abs.Neutrophil (Seg) 3.42 k/uL Normal 1.50-8.10 [facility] Comment on above: Performed By: #### B CONCESSION ATTENDANT #### [address] [place] [address] Group Account Director: Sharath Dennis MD Basophils/100 WBC (Bld) 0 % Normal 0-2 [facility] Comment on above: Performed By: #### B CONCESSION ATTENDANT #### [address] [place] [address] Group Account Director: Sharath Dennis MD Eosinophils (Bld) [#/Vol] 0.21 10*3/uL Normal 0.00-0.44 [facility] Comment on above: Performed By: #### B CONCESSION ATTENDANT #### [address] [place] [address] Group Account Director: Sharath Dennis MD Eosinophils/100 WBC (Bld) 4 % Normal 1-4 [facility] Comment on above: Performed By: #### B CONCESSION ATTENDANT #### [address] [place] [address] Group Account Director: Sharath Dennis MD Erythrocyte distribution width (RBC) [Ratio] 13.4 % Normal 11.8-14.4 [facility] Comment on above: Performed By: #### B CONCESSION ATTENDANT #### [address] [place] [id number] Group Account Director: Sharath Dennis MD Hematocrit (Bld) [Volume fraction] 31.1 % Low 36.3-47.1 [facility] Comment on above: Performed By: #### B CONCESSION ATTENDANT #### [facility] [address] [place], [place] [id number] Group Account Director: Sharath Dennis MD Hemoglobin (Bld) [Mass/Vol] 9.8 g/dL Low 11.9-15.1 [facility] Comment on above: Performed By: #### B CONCESSION ATTENDANT #### [facility] [address] [place] [address] Dr. [place], [facility]83 Group Account Director: Sharath Dennis MD Immature granulocytes/100 WBC (Bld) 0 % Normal 0 [facility] Comment on above: Performed By: #### B CONCESSION ATTENDANT #### [address] [place], [facility]83 Group Account Director: Sharath Dennis MD Lymphocytes (Bld) [#/Vol] 1.43 10*3/uL Normal 1.10-3.70 [facility] Comment on above: Performed By: #### B CONCESSION ATTENDANT #### [address] [place], [facility]83 Group Account Director: Sharath Dennis MD Lymphocytes/100 WBC (Bld) 24 % Normal 24-43 [facility] Comment on above: Performed By: #### B CONCESSION ATTENDANT #### [facility] [address] [place] [address] Dr. [place], [facility]83 Group Account Director: Sharath Dennis MD MCH (RBC) [Entitic mass] 30.3 pg Normal 25.2-33.5 [facility] Comment on above: Performed By: #### B CONCESSION ATTENDANT #### [address] [place], [facility]83 Group Account Director: Sharath Dennis MD MCHC (RBC) [Mass/Vol] 31.5 g/dL Normal 28.4-34.8 [facility] Comment on above: Performed By: #### B CONCESSION ATTENDANT #### [facility] [address] [place], [place] [id number] Group Account Director: Sharath Dennis MD MCV (RBC) [Entitic vol] 96.3 fL Normal 82.6-102.9 [facility] Comment on above: Performed By: #### B CONCESSION ATTENDANT #### [facility] [address] [place], [facility]83 Group Account Director: Sharath Dennis MD Monocytes (Bld) [#/Vol] 0.91 10*3/uL Normal 0.10-1.20 [facility] Comment on above: Performed By: #### B CONCESSION ATTENDANT #### [address] [place], [facility]83 Group Account Director: Sharath Dennis MD Monocytes/100 WBC (Bld) 15 % High 3-12 [facility] Comment on above: Performed By: #### B CONCESSION ATTENDANT #### [address] [place], [facility]83 Group Account Director: Sharath Dennis MD Neutrophil (Seg) 57 % Normal 36-65 [facility] Comment on above: Performed By: #### B CONCESSION ATTENDANT #### [address] [place], [facility]83 Group Account Director: Sharath Dennis MD NRBC Automated 0.0 per 100 WBC Normal 0.0 [facility] Comment on above: Performed By: #### B CONCESSION ATTENDANT #### [facility] [address] [place] [address] Dr. [place], [facility]83 Group Account Director: Sharath Dennis MD Platelet mean volume (Bld) [Entitic vol] 9.7 fL Normal 8.1-13.5 [facility] Comment on above: Performed By: #### B CONCESSION ATTENDANT #### [address] [place], [place] [id number] Group Account Director: Sharath Dennis MD Platelets (Bld) [#/Vol] 188 10*3/uL Normal 138-453 [facility] Comment on above: Performed By: #### B CONCESSION ATTENDANT #### [facility] [address] [place], [place] [id number] Group Account Director: Sharath Dennis MD RBC (Bld) [#/Vol] 3.23 10*6/uL Low 3.95-5.11 [facility] Comment on above: Performed By: #### B CONCESSION ATTENDANT #### [facility] [address] [place], [place] [phone] Group Account Director: Sharath Dennis MD WBC (Bld) [#/Vol] 6.0 10*3/uL Normal 3.5-11.3 [facility] Comment on above: Performed By: #### B CONCESSION ATTENDANT #### [facility] [address] [place], [place] [id number] Group Account Director: Sharath Dennis MD EKG 12 Leadon 07-12-2024 Atrial Rate 63 BPM [facility] [place] 69 degrees [facility] P-R Interval 172 ms [facility] Q-T Interval 400 ms [facility] QRS Duration 86 ms [facility] QTc Calculation (Bazett) 409 ms [facility] R [place] 59 degrees [facility] [place] 48 degrees [facility] Ventricular Rate 63 BPM [facility] Normal sinus rhythm Normal ECG When compared with ECG of 26-Mar-2024 14:35, Minimal criteria for Anterior infarct are no longer Present Nonspecific T wave abnormality no longer evident in Lateral leads Confirmed by Stephan Cole ([id number]) on 07/12/2024 6:21:32 PM [facility] Stephan Cole MD - 07/12/2024 Normal sinus rhythm Normal ECG When compared with ECG of 26-Mar-2024 14:35, Minimal criteria for Anterior infarct are no longer Present Nonspecific T wave abnormality no longer evident in Lateral leads Confirmed by Stephan Cole ([id number]) on 07/12/2024 6:21:32 PM [facility] CBC with Auto Differentialon 07-11-2024 Basophils (Bld) [#/Vol] [facility] Basophils/100 WBC (Bld) 0 % 0 - 2 % [facility] Eosinophils (Bld) [#/Vol] 0.23 10*3/uL [facility] Eosinophils/100 WBC (Bld) 4 % 1 - 4 % [facility] Erythrocyte distribution width (RBC) [Ratio] 13.5 % 11.8 - 14.4 % [facility] Hematocrit (Bld) [Volume fraction] 33.7 % Low 36.3 - 47.1 % [facility] Hemoglobin (Bld) [Mass/Vol] 10.8 g/dL Low 11.9 - 15.1 g/dL [facility] Immature granulocytes (Bld) [#/Vol] [facility] Immature granulocytes/100 WBC (Bld) 0 % 0 [facility] Interpretation and review of laboratory results Abnormal [facility] Lymphocytes/100 WBC (Bld) 25 % 24 - 43 % [facility] Lymphocytes/100 WBC (Bld) 1.35 % [facility] MCH (RBC) [Entitic mass] 30.7 pg 25.2 - 33.5 pg [facility] MCHC (RBC) [Mass/Vol] 32 g/dL 28.4 - 34.8 g/dL [facility] MCV (RBC) [Entitic vol] 95.7 fL 82.6 - 102.9 fL [facility] Monocytes/100 WBC (Bld) 16 % High 3 - 12 % [facility] Monocytes/100 WBC (Bld) 0.86 % [facility] Neutrophils/100 WBC (Bld) 55 % 36 - 65 % [facility] Nucleated RBC/100 WBC (Bld) [Ratio] 0 % 0.0 per 100 WBC [facility] Platelet mean volume (Bld) [Entitic vol] 9.6 fL 8.1 - 13.5 fL [facility] Platelets (Bld) [#/Vol] 216 10*3/uL [facility] RBC (Bld) [#/Vol] 3.52 10*6/uL Low 3.95 - 5.1 1 m/uL [facility] Segmented neutrophils/100 WBC (Bld) 2.97 % [facility] WBC other (Bld) [#/Vol] 5.4 [facility] CBC with Diffon 07-11-2024 Abs. Basophil <0.03 Normal 0.00-0.20 [facility] Comment on above: Performed By: #### B CONCESSION ATTENDANT #### [facility] [address] [place] [address] [place] [address] Group Account Director: Sharath Dennis MD Abs.Imm.Granulocyte <0.03 Normal 0.00-0.30 [facility] Comment on above: Performed By: #### B CONCESSION ATTENDANT #### [address] [place] [address] Group Account Director: Sharath Dennis MD Abs.Neutrophil (Seg) 2.97 k/uL Normal 1.50-8.10 [facility] Comment on above: Performed By: #### B CONCESSION ATTENDANT #### [address] [place], [place] [id number] Group Account Director: Sharath Dennis MD Basophils/100 WBC (Bld) 0 % Normal 0-2 [facility] Comment on above: Performed By: #### B CONCESSION ATTENDANT #### [address] [place], [place] [address] Group Account Director: Sharath Dennis MD Eosinophils (Bld) [#/Vol] 0.23 10*3/uL Normal 0.00-0.44 [facility] Comment on above: Performed By: #### B CONCESSION ATTENDANT #### [address] [place], [place] [phone] Group Account Director: Sharath Dennis MD Eosinophils/100 WBC (Bld) 4 % Normal 1-4 [facility] Comment on above: Performed By: #### B CONCESSION ATTENDANT #### [facility] [address] [place], [place] [phone] Group Account Director: Sharath Dennis MD Erythrocyte distribution width (RBC) [Ratio] 13.5 % Normal 11.8-14.4 [facility] Comment on above: Performed By: #### B CONCESSION ATTENDANT #### [facility] [address] [place], [facility]83 Group Account Director: Sharath Dennis MD Hematocrit (Bld) [Volume fraction] 33.7 % Low 36.3-47.1 [facility] Comment on above: Performed By: #### B CONCESSION ATTENDANT #### [address] [place], [facility]83 Group Account Director: Sharath Dennis MD Hemoglobin (Bld) [Mass/Vol] 10.8 g/dL Low 11.9-15.1 [facility] Comment on above: Performed By: #### B CONCESSION ATTENDANT #### [address] [place], [facility]83 Group Account Director: Sharath Dennis MD Immature granulocytes/100 WBC (Bld) 0 % Normal 0 [facility] Comment on above: Performed By: #### B CONCESSION ATTENDANT #### [address] [place], [facility]83 Group Account Director: Sharath Dennis MD Lymphocytes (Bld) [#/Vol] 1.35 10*3/uL Normal 1.10-3.70 [facility] Comment on above: Performed By: #### B CONCESSION ATTENDANT #### [facility] [address] [place] [address] Group Account Director: Sharath Dennis MD Lymphocytes/100 WBC (Bld) 25 % Normal 24-43 [facility] Comment on above: Performed By: #### B CONCESSION ATTENDANT #### [facility] [address] [place] [address] Dr. [place], [facility]83 Group Account Director: Sharath Dennis MD MCH (RBC) [Entitic mass] 30.7 pg Normal 25.2-33.5 [facility] Comment on above: Performed By: #### B CONCESSION ATTENDANT #### [address] [place], [place] [id number] Group Account Director: Sharath Dennis MD MCHC (RBC) [Mass/Vol] 32.0 g/dL Normal 28.4-34.8 [facility] Comment on above: Performed By: #### B CONCESSION ATTENDANT #### [address] [place], [facility]83 Group Account Director: Sharath Dennis MD MCV (RBC) [Entitic vol] 95.7 fL Normal 82.6-102.9 [facility] Comment on above: Performed By: #### B CONCESSION ATTENDANT #### [address] [place], [facility]83 Group Account Director: Sharath Dennis MD Monocytes (Bld) [#/Vol] 0.86 10*3/uL Normal 0.10-1.20 [facility] Comment on above: Performed By: #### B CONCESSION ATTENDANT #### [address] [place], [facility]83 Group Account Director: Sharath Dennis MD Monocytes/100 WBC (Bld) 16 % High 3-12 [facility] Comment on above: Performed By: #### B CONCESSION ATTENDANT #### [address] [place], [facility]83 Group Account Director: Sharath Dennis MD Neutrophil (Seg) 55 % Normal 36-65 [facility] Comment on above: Performed By: #### B CONCESSION ATTENDANT #### [address] [place] [phone] Group Account Director: Sharath Dennis MD NRBC Automated 0.0 per 100 WBC Normal 0.0 [facility] Comment on above: Performed By: #### B CONCESSION ATTENDANT #### [facility] [address] [place] [address] Group Account Director: Sharath Dennis MD Platelet mean volume (Bld) [Entitic vol] 9.6 fL Normal 8.1-13.5 [facility] Comment on above: Performed By: #### B CONCESSION ATTENDANT #### [facility] [address] [place] [address] Group Account Director: Sharath Dennis MD Platelets (Bld) [#/Vol] 216 10*3/uL Normal 138-453 [facility] Comment on above: Performed By: #### B CONCESSION ATTENDANT #### [facility] [address] [place] [address] Group Account Director: Sharath Dennis MD RBC (Bld) [#/Vol] 3.52 10*6/uL Low 3.95-5.11 [facility] Comment on above: Performed By: #### B CONCESSION ATTENDANT #### [facility] [address] [place], [facility]83 Group Account Director: Sharath Dennis MD WBC (Bld) [#/Vol] 5.4 10*3/uL Normal 3.5-11.3 [facility] Comment on above: Performed By: #### B CONCESSION ATTENDANT #### [facility] [address] [place], [facility]83 Group Account Director: Sharath Dennis MD [facility] Albumin [Mass/Vol] 4 g/dL 3.5 - 5.2 g/dL [facility] Albumin/Globulin [Mass ratio] 1.8 {ratio} 1.0 - 2.5 [facility] ALP [Catalytic activity/Vol] 86 U/L 35 - 104 U/L [facility] ALT [Catalytic activity/Vol] 15 U/L 10 - 35 U/L [facility] Anion gap [Moles/Vol] 13 mmol/L 9 - 16 mmol/L [facility] AST [Catalytic activity/Vol] 20 U/L 10 - 35 U/L [facility] Bilirubin [Mass/Vol] 0.3 mg/dL 0.00 - 1.20 mg/dL [facility] Calcium [Mass/Vol] 9.3 mg/dL 8.6 - 10. 4 mg/dL [facility] Chloride [Moles/Vol] 108 mmol/L High 98 - 10 7 mmol/L [facility] CO2 [Moles/Vol] 22 mmol/L 20 - 31 mmol/L [facility] Creatinine [Mass/Vol] 1.4 mg/dL High 0.50 - 0.90 mg/dL [facility] Est, Glom Filt Rate 38 Low - PINF [facility] Comment on above: These results [...] [Mass/Vol] 94 mg/dL 74 - 99 mg/dL [facility] Interpretation and review of laboratory results Abnormal [facility] Potassium [Moles/Vol] 4.8 mmol/L 3.7 - 5.3 mmol/L [facility] Protein [Mass/Vol] 6.3 g/dL Low 6.6 - 8.7 g/dL [facility] Sodium [Moles/Vol] 143 mmol/L 136 - 145 mmol/L [facility] Urea nitrogen [Mass/Vol] 31 mg/dL High 8 - 23 mg/dL [facility] Urea nitrogen/Creatinine [Mass ratio] 22 mg/mg High 9 - 20 [facility] CT HEAD WO CONTRASTon 2024 CT HEAD [...] Jason Barker MD 07/11/24 Final result Normal [facility] CT Head WO contraston 2024 No acute intracrania l abnormality. [facility] EXAMINATION: CT OF THE HEAD [...] the visualized skull or soft tissues. [facility] Jason Barker MD - 07/11/2024 EXAMINATION: [...] soft tissues. IMPRESSION: No acute intracranial abnormality. [facility] Radiology Study observation (narrative) [facility] Comp Metabolic Profon 2024 Albumin [Mass/Vol] 4.0 g/dL Normal 3.5-5.2 [facility] Comment on above: Performed By: #### T ROPI #### [facility] [address] [place] [address] [place] [address] Group Account Director: Sharath Dennis MD Albumin/Glob Ratio 1.8 Normal 1.0-2.5 [facility] Comment on above: Performed By: #### T ROPI #### [address] [place] [address] Group Account Director: Sharath Dennis MD Alkaline Phos 86 U/L Normal 35-104 [facility] Comment on above: Performed By: #### T ROPI #### [facility] [address] [place] [address] [place] [id number] Group Account Director: Sharath Dennis MD ALT [Catalytic activity/Vol] 15 U/L Normal 10-35 [facility] Comment on above: Performed By: #### T ROPI #### [facility] [address] [place] [address] [place] [address] Group Account Director: Sharath Dennis MD Anion gap [Moles/Vol] 13 mmol/L Normal 9-16 [facility] Comment on above: Performed By: #### T ROPI #### [facility] [address] [place], [place] [id number] Group Account Director: Sharath Dennis MD AST [Catalytic activity/Vol] 20 U/L Normal 10-35 [facility] Comment on above: Performed By: #### T ROPI #### [facility] [address] [place], [place] [id number] Group Account Director: Sharath Dennis MD Bilirubin [Mass/Vol] 0.3 mg/dL Normal 0.00-1.20 [facility] Comment on above: Performed By: #### T ROPI #### [facility] [address] [place], [place] [id number] Group Account Director: Sharath Dennis MD BUN/CRE Ratio 22 High 9-20 [facility] Comment on above: Performed By: #### T ROPI #### [facility] [address] [place], [place] [id number] Group Account Director: Sharath Dennis MD Calcium [Mass/Vol] 9.3 mg/dL Normal 8.6-10.4 [facility] Comment on above: Performed By: #### T ROPI #### [facility] [address] [place], [place] [id number] Group Account Director: Sharath Dennis MD Chloride [Moles/Vol] 108 mmol/L High 98-107 [facility] Comment on above: Performed By: #### T ROPI #### [facility] [address] [place], [place] [id number] Group Account Director: Sharath Dennis MD CO2 [Moles/Vol] 22 mmol/L Normal 20-31 [facility] Comment on above: Performed By: #### T ROPI #### [facility] [address] [place], [place] [phone] Group Account Director: Sharath Dennis MD Creatinine [Mass/Vol] 1.4 mg/dL High 0.50-0.90 [facility] Comment on above: Performed By: #### T ROPI #### [facility] [address] [place] [address] Group Account Director: Sharath Dennis MD GFR/1.73 sq M.predicted among non-blacks MDRD (S/P/Bld) [Vol rate/Area] 38 mL/min/{1.73_m2} Low >60 [facility] Comment on above: Result Comment: These results [...] secretion. Performed By: #### T ROPI #### [facility] [address] [place] [address] Group Account Director: Sharath Dennis MD Glucose [Mass/Vol] 94 mg/dL Normal 74-99 [facility] Comment on above: Performed By: #### T ROPI #### [address] [place] [address] Group Account Director: Sharath Dennis MD Potassium [Moles/Vol] 4.8 mmol/L Normal 3.7-5.3 [facility] [facility] Comment on above: Performed By: #### T ROPI #### [facility] [address] [place] [address] Group Account Director: Sharath Dennis MD Protein [Mass/Vol] 6.3 g/dL Low 6.6-8.7 [facility] Comment on above: Performed By: #### T ROPI #### [facility] [address] [place] [address] Group Account Director: Sharath Dennis MD Sodium [Moles/Vol] 143 mmol/L Normal 136-145 [facility] Comment on above: Performed By: #### T ROPI #### [facility] [address] [place] [address] Group Account Director: Sharath Dennis MD Urea nitrogen [Mass/Vol] 31 mg/dL High 8-23 [facility] Comment on above: Performed By: #### T ROPI #### [facility] [address] [place], [place] [id number] Group Account Director: Sharath Dennis MD Lactic Acidon 07-11-2024 Lactate (BldV) [Moles/Vol] 0.8 mmol/L 0.5 - 2.2 mmol/L [facility] Lactate [Moles/Vol] 0.8 mmol/L Normal 0.5-2.2 [facility] Comment on above: Performed By: #### B CONCESSION ATTENDANT #### [facility] [address] [place] [address] Group Account Director: Sharath Dennis MD Microscopic Urinalysison Bacteria LM Ql (Urine sed) 4+ Abnormal None [facility] Epithelial cells LM.HPF (Urine sed) [#/Area] 0 TO 2 [facility] Interpretation and review of laboratory results Abnormal [facility] RBC LM.HPF (Urine sed) [#/Area] 0 TO 2 [facility] WBC LM.HPF (Urine sed) [#/Area] 50 TO 100 [facility] TSHon 07-11-2024 TSH Qn 3.13 m[IU]/L [facility] Thyroid Stim. Horm.on 2024 Thyroid Stim. Horm. 3.13 uIU/mL Normal 0.27-4.20 [facility] Comment on above: Performed By: #### T SH #### [facility] [address] [place] [address] Group Account Director: Sharath Dennis MD Troponinon 07-11-2024 Interpretation and review of laboratory results Abnormal [facility] Troponin I.cardiac High sensitivity method [Mass/Vol] 25 ng/L High 0 - 14 ng/L [facility] Comment on above: Specimen hemolysis h as exceeded the interference as defined by Galindo. Value may be falsely decreased. Suggest recollection if clinically indicated. High Sensitivity Troponin values cannot be compared with other Troponin methodologies. [facility] Troponin, High Sens 25 ng/L High 0-14 [facility] Comment on above: Result Comment: Spec imen hemolysis has exceeded the interference as defined by Galindo. Value may be falsely decreased. Suggest recollection if clinically indicated. High Sensitivity Troponin values cannot be compared with other Troponin methodologies. Performed By: #### T HOANG #### [facility] [address] [place] [address] [place] [address] Group Account Director: Sharath Dennis MD Interpretation and review of laboratory results Abnormal [facility] Troponin I.cardiac High sensitivity method [Mass/Vol] 29 ng/L High 0 - 14 ng/L [facility] Comment on above: High Sensitivity Tro ponin values cannot be compared with other Troponin methodologies. [facility] Troponin, High Sens 29 ng/L High 0-14 [facility] Comment on above: Result Comment: High Sensitivity Troponin values cannot be compared with other Troponin methodologies. Performed By: #### T ROPI #### [facility] [address] [place] [address] Group Account Director: Sharath Dennis MD Urinalysison 07-11-2024 Bilirubin Ql (U) Negative NEGATIVE [facility] Clarity (U) Clear Clear [facility] Color (U) Yellow Yellow [facility] Glucose Test strip (U) [Mass/Vol] Negative NEGATIVE mg/dL [facility] Hemoglobin Auto test strip Ql (U) Negative NEGATIVE [facility] Interpretation and review of laboratory results Abnormal [facility] Ketones (U) [Mass/Vol] Negative NEGAT MAJOR mg/dL [facility] Leukocyte esterase Test strip Ql (U) SMALL Abnormal NEGATIVE [facility] Nitrite Ql (U) Positive Abnormal NEGATIVE [facility] pH (U) 6 [pH] 5.0 - 9.0 [facility] Protein (U) [Mass/Vol] Negative NEGAT MAJOR mg/dL [facility] Specific gravity (U) [Rel density] 1.025 High 1.010 - 1.020 [facility] Urobilinogen Qn (U) Normal 0.0 - 1. 0 EU/dL [facility] Urinalysis, Routineon 2024 Bilirubin, SemiQt,Ur Negative Normal NEG [facility] Comment on above: Performed By: #### B CONCESSION ATTENDANT #### [facility] [address] [place] [address] Group Account Director: Sharath Dennis MD Blood, Urine Negative Normal NEG [facility] Comment on above: Performed By: #### B CONCESSION ATTENDANT #### [facility] [address] [place] [address] Group Account Director: Sharath Dennis MD Clarity (U) Clear Normal CLEAR [facility] Comment on above: Performed By: #### B CONCESSION ATTENDANT #### [facility] [address] [place] [address] Group Account Director: Sharath Dennis MD Color (U) Yellow Normal YEL [facility] Comment on above: Performed By: #### B CONCESSION ATTENDANT #### [facility] [address] [place] [address] Group Account Director: Sharath Dennis MD Glucose Ql (U) Negative Normal NEG [facility] Comment on above: Performed By: #### B CONCESSION ATTENDANT #### [facility] [address] [place] [address] Group Account Director: Sharath Dennis MD Ketones Ql (U) Negative Normal NEG [facility] Comment on above: Performed By: #### B CONCESSION ATTENDANT #### [facility] [address] [place] [address] Group Account Director: Sharath Dennis MD Leukocyte esterase Test strip Ql (U) SMALL Abnormal NEG [facility] Comment on above: Performed By: #### B CONCESSION ATTENDANT #### [facility] [address] [place] [address] [place] [address] Group Account Director: Sharath Dennis MD Nitrite,Ur Positive Abnormal NEG [facility] Comment on above: Performed By: #### B CONCESSION ATTENDANT #### [facility] [address] [place] [address] Group Account Director: Sharath Dennis MD PH,Ur 6.0 Normal 5.0-9.0 [facility] Comment on above: Performed By: #### B CONCESSION ATTENDANT #### [address] [place], [place] [id number] Group Account Director: Sharath Dennis MD Protein Ql (U) Negative Normal NEG [facility] Comment on above: Performed By: #### B CONCESSION ATTENDANT #### [facility] [address] [place] [address] [place] [place], [place] [id number] Group Account Director: Sharath Dennis MD Spec. Loving,Ur 1.025 High 1.010-1.020 [facility] Comment on above: Performed By: #### B CONCESSION ATTENDANT #### [address] [place], [place] [id number] Group Account Director: Sharath Dennis MD Urobilinogen,Ur Normal Normal 0.0-1.0 [facility] Comment on above: Performed By: #### B CONCESSION ATTENDANT #### [facility] [address] [place] [address] [place], [place] [id number] Group Account Director: Sharath Dennis MD Urinalysis,Microon 5 Bacteria 4+ Abnormal NONE [facility] Comment on above: Performed By: #### B CONCESSION ATTENDANT #### [facility] [address] [place] [address] [place] [place], [place] [id number] Group Account Director: Sharath Dennis MD Epithelial cells LM Ql (Urine sed) 0 TO 2 Normal 0-25 [facility] Comment on above: Performed By: #### B CONCESSION ATTENDANT #### [facility] [address] [place] [address] Group Account Director: Sharath Dennis MD Urine RBC's 0 TO 2 Normal 0-2 [facility] Comment on above: Performed By: #### B CONCESSION ATTENDANT #### [facility] [address] [place] [address] Group Account Director: Sharath Dennis MD Urine WBC's 50 TO 100 Normal 0-5 [facility] Comment on above: Performed By: #### B CONCESSION ATTENDANT #### [facility] [address] [place] [address] Group Account Director: Sharath Dennis MD XR CHEST (2 VW)on [...] Jason Barker MD 07/11/24 Final result Normal [facility] XR Chest 2 Viewson No acute cardiopulmonary process. [facility] RIS CONSOLIDATED EXAMINATION: TWO XRAY VIEWS OF THE CHEST 07/11/2024 10:51 pm COMPARISON: Chest radiograph 03/26/2024 HISTORY: ORDERING SYSTEM PROVIDED HISTORY: Confusion/AMS TECHNOLOGIST PROVIDED HISTORY: (Select if patient is in hallway or waiting room) Confusion/AMS FINDINGS: Lungs: Clear Pleura: No effusion or pneumothorax. Cardiomediastinal silhouette: Normal contours Bones: No acute osseous findings. Soft tissues: Normal. [facility] RIS CONSOLIDATED Jason Barker MD - [...] tissues: Normal. IMPRESSION: No acute cardiopulmonary process. [facility] Radiology Study observation (narrative) [facility] XR Chest 2 ViewsOrdered By: Jason Barker on 07-11-2024 [facility] Work Phone: BUN & Creatinineon 5 Creatinine [Mass/Vol] 1.2 mg/dL High 0.50 - 0.90 mg/dL [facility] Est, Glom Filt Rate 44 Low - PINF [facility] Comment on above: These results are [...] 29 mg/dL High 8 - 23 mg/dL [facility] BUN + Creatinineon 5 Creatinine [Mass/Vol] 1.2 mg/dL High 0.50-0.90 [facility] Comment on above: Performed By: #### T HOANG #### [facility] [address] [place] [address] Group Account Director: Shartah Dennis MD GFR/1.73 sq M.predicted among non-blacks MDRD (S/P/Bld) [Vol rate/Area] 44 mL/min/{1.73_m2} Low >60 [facility] Comment on above: Result Comment: These results [...] secretion. Performed By: #### T LISSYI #### [facility] [address] [place] [address] Group Account Director: Sharath Dennis MD Urea nitrogen [Mass/Vol] 29 mg/dL High 8-23 [facility] Comment on above: Performed By: #### T LISSYI #### [facility] [address] [place] [address] Group Account Director: Sharath Dennis MD Brain Natri. Peptideon 05-15 Natriuretic peptide B (Bld) [Mass/Vol] 652 pg/mL High 0-450 [facility] Comment on above: Performed By: #### T HOANG #### [facility] [address] [place] [address] Group Account Director: Sharath Dennis MD Brain Natriuretic Peptideon 05-15-2024 Natriuretic peptide B (Bld) [Mass/Vol] 652 pg/mL High 0 - 450 pg/mL [facility] CBCon 05-15-2024 Erythrocyte distribution width (RBC) [Ratio] 14.2 % 11.8 - 14.4 % [facility] Hematocrit (Bld) [Volume fraction] 35 % Low 36.3 - 47.1 % [facility] Hemoglobin (Bld) [Mass/Vol] 11 g/dL Low 11.9 - 15.1 g/dL [facility] Interpretation and review of laboratory results Abnormal [facility] MCH (RBC) [Entitic mass] 30 pg 25.2 - 33.5 pg [facility] MCHC (RBC) [Mass/Vol] 31.4 g/dL 28.4 - 34.8 g/dL [facility] MCV (RBC) [Entitic vol] 95.4 fL 82.6 - 102.9 fL [facility] Nucleated RBC/100 WBC (Bld) [Ratio] 0 % 0.0 per 100 WBC [facility] Platelet mean volume (Bld) [Entitic vol] 9.6 fL 8.1 - 13.5 fL [facility] Platelets (Bld) [#/Vol] 227 10*3/uL [facility] RBC (Bld) [#/Vol] 3.67 10*6/uL Low 3.95 - 5.1 1 m/uL [facility] WBC other (Bld) [#/Vol] 6.3 [facility] Erythrocyte distribution width (RBC) [Ratio] 14.2 % Normal 11.8-14.4 [facility] Comment on above: Performed By: #### T ROPI #### [address] [place] [address] Group Account Director: Sharath Dennis MD Hematocrit (Bld) [Volume fraction] 35.0 % Low 36.3-47.1 [facility] Comment on above: Performed By: #### T ROPI #### [address] [place] [address] Group Account Director: Sharath Dennis MD Hemoglobin (Bld) [Mass/Vol] 11.0 g/dL Low 11.9-15.1 [facility] Comment on above: Performed By: #### T ROPI #### [address] [place] [address] Group Account Director: Sharath Dennis MD MCH (RBC) [Entitic mass] 30.0 pg Normal 25.2-33.5 [facility] Comment on above: Performed By: #### T ROPI #### [address] [place] [address] Group Account Director: Sharath Dennis MD MCHC (RBC) [Mass/Vol] 31.4 g/dL Normal 28.4-34.8 [facility] Comment on above: Performed By: #### T ROPI #### [facility] [address] [place], [place] [id number] Group Account Director: Sharath Dennis MD MCV (RBC) [Entitic vol] 95.4 fL Normal 82.6-102.9 [facility] Comment on above: Performed By: #### T ROPI #### [facility] [address] [place], [place] [id number] Group Account Director: Sharath Dennis MD NRBC Automated 0.0 per 100 WBC Normal 0.0 [facility] Comment on above: Performed By: #### T ROPI #### [facility] [address] [place], [place] [id number] Group Account Director: Sharath Dennis MD Platelet mean volume (Bld) [Entitic vol] 9.6 fL Normal 8.1-13.5 [facility] Comment on above: Performed By: #### T ROPI #### [address] [place], [place] [phone] Group Account Director: Sharath Dennis MD Platelets (Bld) [#/Vol] 227 10*3/uL Normal 138-453 [facility] Comment on above: Performed By: #### T ROPI #### [address] [place], [place] [id number] Group Account Director: Sharath Dennis MD RBC (Bld) [#/Vol] 3.67 10*6/uL Low 3.95-5.11 [facility] Comment on above: Performed By: #### T ROPI #### [address] [place], [place] [phone] Group Account Director: Sharath Dennis MD WBC (Bld) [#/Vol] 6.3 10*3/uL Normal 3.5-11.3 [facility] Comment on above: Performed By: #### T ROPI #### [facility] [address] [place] [address] [place] [address] Group Account Director: Sharath Dennis MD D-Dimer Teston 05-15-2024 D-Dimer Test 0.72 ug/mL FEU High 0.00-0.59 [facility] Comment on above: Result Comment: [...] DVT. Performed By: #### T HOANG #### [facility] [address] [place] [address] [place] [address] Group Account Director: Sharath Dennis MD D-Dimer, Quantitativeon Fibrin D-dimer FEU (PPP) [Mass/Vol] 0.72 High [facility] Comment on above: When combined with a [...] Interpretation and review of laboratory results Abnormal [facility] Electrolyte Panelon 05-16-19 Anion gap [Moles/Vol] 11 mmol/L 9 - 16 mmol/L [facility] Chloride [Moles/Vol] 106 mmol/L 98 - 10 7 mmol/L [facility] CO2 [Moles/Vol] 23 mmol/L 20 - 31 mmol/L [facility] Potassium [Moles/Vol] 4.6 mmol/L 3.7 - 5.3 mmol/L [facility] Sodium [Moles/Vol] 140 mmol/L 136 - 145 mmol/L [facility] Electrolyteson 05-15-2024 Anion gap [Moles/Vol] 11 mmol/L Normal 9-16 [facility] Comment on above: Performed By: #### T ROPI #### [facility] [address] [place] [address] [place] [address] Group Account Director: Sharath Dennis MD Chloride [Moles/Vol] 106 mmol/L Normal 98-107 [facility] Comment on above: Performed By: #### T ROPI #### [facility] [address] [place] [address] Group Account Director: Sharath Dennis MD CO2 [Moles/Vol] 23 mmol/L Normal 20-31 [facility] Comment on above: Performed By: #### T ROPI #### [facility] [address] [place] [phone] Group Account Director: Sharath Dennis MD Potassium [Moles/Vol] 4.6 mmol/L Normal 3.7-5.3 [facility] Comment on above: Performed By: #### T ROPI #### [facility] [address] [place], [place] [phone] Group Account Director: Sharath Dennis MD Sodium [Moles/Vol] 140 mmol/L Normal 136-145 [facility] Comment on above: Performed By: #### T ROPI #### [facility] [address] [place], [place] [id number] Group Account Director: Sharath Dennis MD Hemoglobin A1Con 05-15-2024 Average glucose Estimated from glycated hemoglobin (Bld) [Mass/Vol] 114 mg/dL [facility] Comment on above: The ADA and AACC rec ommend providing the estimated average glucose result to permit better patient understanding of their HBA1c result. HbA1c (Bld) [Mass fraction] 5.6 % 4.0 - 6.0 % [facility] Glucose [Mass/Vol] 114 mg/dL Normal [facility] Comment on above: Result Comment: The ADA and AACC recommend providing the estimated average glucose result to permit better patient understanding of their HBA1c result. Performed By: #### T LISSYI #### [facility] [address] [place] [address] [place] [address] Group Account Director: Sharath Dennis MD HbA1c (Bld) [Mass fraction] 5.6 % Normal 4.0-6.0 [facility] Comment on above: Performed By: #### T ROPI #### [facility] [address] [place] [address] Group Account Director: Sharath Dennis MD Hepatic Function Panelon Albumin [Mass/Vol] 4.1 g/dL 3.5 - 5.2 g/dL [facility] Albumin/Globulin [Mass ratio] 1.9 {ratio} 1.0 - 2.5 [facility] ALP [Catalytic activity/Vol] 86 U/L 35 - 104 U/L [facility] ALT [Catalytic activity/Vol] 16 U/L 10 - 35 U/L [facility] AST [Catalytic activity/Vol] 23 U/L 10 - 35 U/L [facility] Bilirubin [Mass/Vol] 0.4 mg/dL 0.00 - 1.20 mg/dL [facility] Bilirubin.direct [Mass/Vol] 0.2 mg/dL 0.00 - 0.30 mg/dL [facility] Bilirubin.indirect [Mass/Vol] 0.2 mg/dL 0.0 - 1.0 mg/dL [facility] Protein [Mass/Vol] 6.3 g/dL Low 6.6 - 8.7 g/dL [facility] Lipid Profileon 05-15-2024 Cholesterol [Mass/Vol] 122 mg/dL Normal 0-[address] [facility] Comment on above: Cholesterol Guidelines: <200 Desirable 200-240 Borderline >240 Undesirable Result Comment: Cholesterol Guidelines: <200 Desirable 200-240 Borderline >240 Undesirable Performed By: #### T HOANG #### [address] [place] [address] Group Account Director: Sharath Dennis MD Cholesterol in HDL [Mass/Vol] 80 mg/dL Normal >40 [facility] Comment on above: HDL Guidelines: <40 Undesirable 40-59 Borderline >59 Desirable Result Comment: HDL Guidelines: <40 Undesirable 40-59 Borderline >59 Desirable Performed By: #### T LISSYI #### [facility] [address] [place] [address] [place] [address] Group Account Director: Sharath Dennis MD Cholesterol in LDL [Mass/Vol] 34 mg/dL Normal 0-100 [facility] Comment on above: LDL Guidelines: <100 Desirable 100-129 Near to/above Desirable 130-159 Borderline >159 Undesirable Direct (measured) LDL and calculated LDL are not interchangeable tests. Result Comment: LDL Guidelines: <100 Desirable 100-129 Near to/above Desirable 130-159 Borderline >159 Undesirable Direct (measured) LDL and calculated LDL are not interchangeable tests. Performed By: #### T ROPI #### [facility] [address] [place], [place] [phone] Group Account Director: Sharath Dennis MD Cholesterol in VLDL [Mass/Vol] 8 mg/dL Normal 1-30 [facility] Comment on above: Performed By: #### T ROPI #### [facility] [address] [place], [place] [phone] Group Account Director: Sharath Dennis MD Cholesterol.total/Chol esterol in HDL [Mass ratio] 1.5 {ratio} Normal [facility] Comment on above: Performed By: #### T ROPI #### [facility] [address] [place], [place] [phone] Group Account Director: Sharath Dennis MD Triglyceride [Mass/Vol] 41 mg/dL Normal <150 [facility] Comment on above: Triglyceride Guidelines: <150 Desirable 150-199 Borderline 200-499 High >499 Very high Based on AHA Guidelines for fasting triglyceride, November 2011. Result Comment: Triglyceride Guidelines: <150 Desirable 150-199 Borderline 200-499 High >499 Very high Based on AHA Guidelines for fasting triglyceride, November 2011. Performed By: #### T ROPI #### [address] [place] [address] Group Account Director: Sharath Dennis MD Liver Profileon 05-15-2024 Albumin [Mass/Vol] 4.1 g/dL Normal 3.5-5.2 [facility] Comment on above: Performed By: #### T ROPI #### [facility] [address] [place], [place] [phone] Group Account Director: Sharath Dennis MD Albumin/Glob Ratio 1.9 Normal 1.0-2.5 [facility] Comment on above: Performed By: #### T ROPI #### [facility] [address] [place] [address] Group Account Director: Sharath Dennis MD Alkaline Phos 86 U/L Normal 35-104 [facility] Comment on above: Performed By: #### T ROPI #### [facility] [address] [place], [place] [phone] Group Account Director: Sharath Dennis MD ALT [Catalytic activity/Vol] 16 U/L Normal 10-35 [facility] Comment on above: Performed By: #### T ROPI #### [facility] [address] [place], [place] [phone] Group Account Director: Sharath Dennis MD AST [Catalytic activity/Vol] 23 U/L Normal 10-35 [facility] Comment on above: Performed By: #### T ROPI #### [address] [place], [place] [phone] Group Account Director: Sharath Dennis MD Bilirubin [Mass/Vol] 0.4 mg/dL Normal 0.00-1.20 [facility] Comment on above: Performed By: #### T ROPI #### [address] [place], [place] 1960483 Group Account Director: Sharath Dennis MD Bilirubin, Indirect 0.2 mg/dL Normal 0.0-1.0 [facility] [facility] Comment on above: Performed By: #### T ROPI #### [facility] [address] [place] [address] Dr. [place], [facility]83 Group Account Director: Sharath Dennis MD Bilirubin.indirect [Mass/Vol] 0.2 mg/dL Normal 0.00-0.30 [facility] Comment on above: Performed By: #### T ROPI #### [facility] [address] [place] [address] [place] [address] Group Account Director: Sharath Dennis MD Protein [Mass/Vol] 6.3 g/dL Low 6.6-8.7 [facility] Comment on above: Performed By: #### T ROPI #### [address] [place] [id number] Group Account Director: Sharath Dennis MD No Panel Informationon 05-15 [facility] Interpretation and review of laboratory results Abnormal [facility] TSHon 05-15-2024 TSH Qn 2.56 m[IU]/L [facility] Thyroid Stim. Horm.on 2024 Thyroid Stim. Horm. 2.56 uIU/mL Normal 0.27-4.20 [facility] Comment on above: Performed By: #### T HOANG #### [facility] [address] [place], [place] [id number] Group Account Director: Sharath Dennis MD Vitamin D 25 Hydroxyon 05-15 25-hydroxyvitamin D3 [Mass/Vol] 59.1 ng/mL 30.0 - 100.0 ng/mL [facility] Comment on above: Reference Range: Vitamin D status Range Deficiency <20 ng/mL Mild Deficiency 20-30 ng/mL Sufficiency 30-100 ng/mL Toxicity >100 ng/mL Vitamin D 25 OHon 05-15-2024 Vitamin D 25 OH 59.1 ng/mL Normal 30.0-100.0 [facility] Comment on above: Result Comment: Reference Range: Vitamin D status Range Deficiency <20 ng/mL Mild Deficiency 20-30 ng/mL Sufficiency 30-100 ng/mL Toxicity >100 ng/mL Performed By: #### T HOANG #### [facility] [address] [place] [id number] Group Account Director: Sharath Dennis MD Cult,Urineon 03-29-2024 Cult,Urine Specimen [...] Tobramycin <=1 SUSCEPTIBLE Trimethoprim/Sulfa <=20 SUSCEPTIBLE Susceptible [facility] Comment on above: Performed By: #### U #### [facility] [address] [place] [address] Group Account Director: Wellington Back MD CBC with Auto Differentialon 03-26-2024 Basophils (Bld) [#/Vol] [facility] Basophils/100 WBC (Bld) 0 % 0 - 2 % [facility] Eosinophils (Bld) [#/Vol] 0.13 10*3/uL [facility] Eosinophils/100 WBC (Bld) 1 % 1 - 4 % [facility] Erythrocyte distribution width (RBC) [Ratio] 14.7 % High 11.8 - 14.4 % [facility] Hematocrit (Bld) [Volume fraction] 38.2 % 36.3 - 47.1 % [facility] Hemoglobin (Bld) [Mass/Vol] 12.3 g/dL 11.9 - 15.1 g/dL [facility] Immature granulocytes (Bld) [#/Vol] 0.06 10*3/uL [facility] Immature granulocytes/100 WBC (Bld) 1 % High 0 [facility] Interpretation and review of laboratory results Abnormal [facility] Lymphocytes/100 WBC (Bld) 16 % Low 24 - 43 % [facility] Lymphocytes/100 WBC (Bld) 1.61 % [facility] MCH (RBC) [Entitic mass] 30.3 pg 25.2 - 33.5 pg [facility] MCHC (RBC) [Mass/Vol] 32.2 g/dL 28.4 - 34.8 g/dL [facility] MCV (RBC) [Entitic vol] 94.1 fL 82.6 - 102.9 fL [facility] Monocytes/100 WBC (Bld) 11 % 3 - 12 % [facility] Monocytes/100 WBC (Bld) 1.11 % [facility] Neutrophils/100 WBC (Bld) 71 % High 36 - 65 % [facility] Nucleated RBC/100 WBC (Bld) [Ratio] 0.0 % 0.0 per 100 WBC [facility] Platelet mean volume (Bld) [Entitic vol] 8.8 fL 8.1 - 13.5 fL [facility] Platelets (Bld) [#/Vol] 333 10*3/uL [facility] RBC (Bld) [#/Vol] 4.06 10*6/uL 3.95 - 5.1 1 m/uL [facility] Segmented neutrophils/100 WBC (Bld) 6.91 % [facility] WBC other (Bld) [#/Vol] 9.8 [facility] CBC with Diffon 03-26-2024 Abs. Basophil <0.03 Normal 0.00-0.20 [facility] Comment on above: Performed By: #### T ROPI #### [facility] [address] [place] [address] Dr[place] [id number] Group Account Director: Sharath Dennis MD Abs.Imm.Granulocyte 0.06 k/uL Normal 0.00-0.30 [facility] Comment on above: Performed By: #### T ROPI #### [address] [place] [id number] Group Account Director: Sharath Dennis MD Abs.Neutrophil (Seg) 6.91 k/uL Normal 1.50-8.10 [facility] Comment on above: Performed By: #### T ROPI #### [address] [place], [facility]83 Group Account Director: Sharath Dennis MD Basophils/100 WBC (Bld) 0 % Normal 0-2 [facility] Comment on above: Performed By: #### T ROPI #### [address] [place] [id number] Group Account Director: Sharath Dennis MD Eosinophils (Bld) [#/Vol] 0.13 10*3/uL Normal 0.00-0.44 [facility] Comment on above: Performed By: #### T ROPI #### [facility] [address] [place], [facility]83 Group Account Director: Sharath Dennis MD Eosinophils/100 WBC (Bld) 1 % Normal 1-4 [facility] Comment on above: Performed By: #### T ROPI #### [facility] [address] [place], [facility]83 Group Account Director: Sharath Dennis MD Erythrocyte distribution width (RBC) [Ratio] 14.7 % High 11.8-14.4 [facility] Comment on above: Performed By: #### T ROPI #### [facility] [address] [place], [facility]83 Group Account Director: Sharath Dennis MD Hematocrit (Bld) [Volume fraction] 38.2 % Normal 36.3-47.1 [facility] Comment on above: Performed By: #### T ROPI #### [facility] [address] [place], [facility]83 Group Account Director: Sharath Dennis MD Hemoglobin (Bld) [Mass/Vol] 12.3 g/dL Normal 11.9-15.1 [facility] Comment on above: Performed By: #### T ROPI #### [facility] [address] [place], [facility]83 Group Account Director: Sharath Dennis MD Immature granulocytes/100 WBC (Bld) 1 % High 0 [facility] Comment on above: Performed By: #### T ROPI #### [facility] [address] [place], [facility]83 Group Account Director: Sharath Dennis MD Lymphocytes (Bld) [#/Vol] 1.61 10*3/uL Normal 1.10-3.70 [facility] Comment on above: Performed By: #### T ROPI #### [facility] [address] [place] [address] Dr. [place], [facility]83 Group Account Director: Sharath Dennis MD Lymphocytes/100 WBC (Bld) 16 % Low 24-43 [facility] Comment on above: Performed By: #### T ROPI #### [facility] [address] [place], [place] [id number] Group Account Director: Sharath Dennis MD MCH (RBC) [Entitic mass] 30.3 pg Normal 25.2-33.5 [facility] Comment on above: Performed By: #### T ROPI #### [facility] [address] [place], [place] [phone] Group Account Director: Sharath Dennis MD MCHC (RBC) [Mass/Vol] 32.2 g/dL Normal 28.4-34.8 [facility] Comment on above: Performed By: #### T ROPI #### [address] [place], [place] [id number] Group Account Director: Sharath Dennis MD MCV (RBC) [Entitic vol] 94.1 fL Normal 82.6-102.9 [facility] Comment on above: Performed By: #### T ROPI #### [facility] [address] [place], [place] [id number] Group Account Director: Sharath Dennis MD Monocytes (Bld) [#/Vol] 1.11 10*3/uL Normal 0.10-1.20 [facility] Comment on above: Performed By: #### T ROPI #### [facility] [address] [place], [place] [id number] Group Account Director: Sharath Dennis MD Monocytes/100 WBC (Bld) 11 % Normal 3-12 [facility] Comment on above: Performed By: #### T ROPI #### [facility] [address] [place], [place] [id number] Group Account Director: Sharath Dennis MD Neutrophil (Seg) 71 % High 36-65 [facility] Comment on above: Performed By: #### T ROPI #### [facility] [address] [place], [place] [phone] Group Account Director: Sharath Dennis MD NRBC Automated 0.0 per 100 WBC Normal 0.0 [facility] Comment on above: Performed By: #### T ROPI #### [facility] [address] [place], [place] [id number] Group Account Director: Sharath Dennis MD Platelet mean volume (Bld) [Entitic vol] 8.8 fL Normal 8.1-13.5 [facility] Comment on above: Performed By: #### T ROPI #### [facility] [address] [place], [place] [phone] Group Account Director: Sharath Dennis MD Platelets (Bld) [#/Vol] 333 10*3/uL Normal 138-453 [facility] Comment on above: Performed By: #### T ROPI #### [facility] [address] [place], [place] 0700383 Group Account Director: Sharath Dennis MD RBC (Bld) [#/Vol] 4.06 10*6/uL Normal 3.95-5.11 [facility] Comment on above: Performed By: #### T ROPI #### [facility] [address] [place], [place] [id number] Group Account Director: Sharath Dennis MD WBC (Bld) [#/Vol] 9.8 10*3/uL Normal 3.5-11.3 [facility] Comment on above: Performed By: #### T ROPI #### [facility] [address] [place] [address] Group Account Director: Sharath Dennis MD [facility] Albumin [Mass/Vol] 4.3 g/dL 3.5 - 5.2 g/dL [facility] Albumin/Globulin [Mass ratio] 1.7 {ratio} 1.0 - 2.5 [facility] ALP [Catalytic activity/Vol] 96 U/L 35 - 104 U/L [facility] ALT [Catalytic activity/Vol] 14 U/L 10 - 35 U/L [facility] Anion gap [Moles/Vol] 11 mmol/L 9 - 16 mmol/L [facility] AST [Catalytic activity/Vol] 21 U/L 10 - 35 U/L [facility] Bilirubin [Mass/Vol] 0.5 mg/dL 0.00 - 1.20 mg/dL [facility] Calcium [Mass/Vol] 9.4 mg/dL 8.6 - 10. 4 mg/dL [facility] Chloride [Moles/Vol] 107 mmol/L 98 - 10 7 mmol/L [facility] CO2 [Moles/Vol] 25 mmol/L 20 - 31 mmol/L [facility] Creatinine [Mass/Vol] 1.0 mg/dL High 0.50 - 0.90 mg/dL [facility] Est, Glom Filt Rate 58 Low - PINF [facility] Comment on above: These results [...] [Mass/Vol] 95 mg/dL 74 - 99 mg/dL [facility] Potassium [Moles/Vol] 4.4 mmol/L 3.7 - 5.3 mmol/L [facility] Protein [Mass/Vol] 6.8 g/dL 6.6 - 8.7 g/dL [facility] Sodium [Moles/Vol] 143 mmol/L 136 - 145 mmol/L [facility] Urea nitrogen [Mass/Vol] 33 mg/dL High 8 - 23 mg/dL [facility] Urea nitrogen/Creatinine [Mass ratio] 33 mg/mg High 9 - [address] [facility] [address] Head WO contraston 02-16- 2025 Addendum by Agnes Alfonso MD on 03/26/2024 3:32 PM EST ADDENDUM: Results were reported to Dr. Baxter by radiology results communication at 3:27 p.m. on March 26, 2024. [facility] No acute intracrania l abnormality. [facility] EXAMINATION: CT OF THE HEAD [...] the visualized skull or soft tissues. [facility] Angelito Alfonso MD - 03/26/2024 [...] soft tissues. IMPRESSION: No acute intracranial abnormality. [facility] Radiology Study observation (narrative) [facility] CT Head WO contrastOrdered B y: Angelito Alfonso on 03-26-2024 [facility] Work Phone: CTA HEAD NECK W CONTRASTon [...] Angelito Alfonso MD 03/26/24 Final result Normal [facility] CTA Head vessels and Neck ve ssels [...] fluid collection. The kevin-white differentiation is maintained. [facility] Angelito Rivera MD - 03/26/2024 EXAMINATION: [...] proximal to mid basilar artery, normal variant. [facility] Radiology Study observation (narrative) [facility] Comp Metabolic Profon 2024 Albumin [Mass/Vol] 4.3 g/dL Normal 3.5-5.2 [facility] Comment on above: Performed By: #### T ROPI #### [facility] [address] [place], [place] [phone] Group Account Director: Sharath Dennis MD Albumin/Glob Ratio 1.7 Normal 1.0-2.5 [facility] Comment on above: Performed By: #### T ROPI #### [facility] [address] [place], [place] [phone] Group Account Director: Sharath Dennis MD Alkaline Phos 96 U/L Normal 35-104 [facility] Comment on above: Performed By: #### T ROPI #### [facility] [address] [place] [address] Group Account Director: Sharath Dennis MD ALT [Catalytic activity/Vol] 14 U/L Normal 10-35 [facility] Comment on above: Performed By: #### T ROPI #### [facility] [address] [place] [address] Group Account Director: Sharath Dennis MD Anion gap [Moles/Vol] 11 mmol/L Normal 9-16 [facility] Comment on above: Performed By: #### T ROPI #### [facility] [address] [place] [address] Dr. [place] [id number] Group Account Director: Sharath Dennis MD AST [Catalytic activity/Vol] 21 U/L Normal 10-35 [facility] Comment on above: Performed By: #### T ROPI #### [facility] [address] [place], [place] [phone] Group Account Director: Sharath Dennis MD Bilirubin [Mass/Vol] 0.5 mg/dL Normal 0.00-1.20 [facility] Comment on above: Performed By: #### T ROPI #### [facility] [address] [place], [place] [phone] Group Account Director: Sharath Dennis MD BUN/CRE Ratio 33 High 9-20 [facility] Comment on above: Performed By: #### T ROPI #### [facility] [address] [place], [place] [phone] Group Account Director: Sharath Dennis MD Calcium [Mass/Vol] 9.4 mg/dL Normal 8.6-10.4 [facility] Comment on above: Performed By: #### T ROPI #### [facility] [address] [place], [place] [phone] Group Account Director: Sharath Dennis MD Chloride [Moles/Vol] 107 mmol/L Normal 98-107 [facility] Comment on above: Performed By: #### T ROPI #### [facility] [address] [place], [place] [phone] Group Account Director: Sharath Dennis MD CO2 [Moles/Vol] 25 mmol/L Normal 20-31 [facility] Comment on above: Performed By: #### T ROPI #### [facility] [address] [place], [place] [phone] Group Account Director: Sharath Dennis MD Creatinine [Mass/Vol] 1.0 mg/dL High 0.50-0.90 [facility] Comment on above: Performed By: #### T ROPI #### [facility] [address] [place] [address] Group Account Director: Sharath Dennis MD GFR/1.73 sq M.predicted among non-blacks MDRD (S/P/Bld) [Vol rate/Area] 58 mL/min/{1.73_m2} Low >60 [facility] Comment on above: Result Comment: These results [...] secretion. Performed By: #### T ROPI #### [address] [place] [address] Group Account Director: Sharath Dennis MD Glucose [Mass/Vol] 95 mg/dL Normal 74-99 [facility] Comment on above: Performed By: #### T ROPI #### [address] [place] [address] Group Account Director: Sharath Dennis MD Potassium [Moles/Vol] 4.4 mmol/L Normal 3.7-5.3 [facility] Comment on above: Performed By: #### T ROPI #### [facility] [address] [place] [address] Group Account Director: Sharath Dennis MD Protein [Mass/Vol] 6.8 g/dL Normal 6.6-8.7 [facility] Comment on above: Performed By: #### T ROPI #### [facility] [address] [place] [address] Group Account Director: Sharath Dennis MD Sodium [Moles/Vol] 143 mmol/L Normal 136-145 [facility] Comment on above: Performed By: #### T ROPI #### [facility] [address] [place], [place] [phone] Group Account Director: Sharath Dennis MD Urea nitrogen [Mass/Vol] 33 mg/dL High 8-23 [facility] Comment on above: Performed By: #### T LISSYI #### [facility] [address] [place], [place] [phone] Group Account Director: Sharath Dennis MD Glucose, Whole Bloodon 03-26 Glucose [Mass/Vol] 77 mg/dL 74 - 100 mg/dL [facility] Glucose, Whole BloodOrdered By: Marbella Bernstein on 03-26-2024 Glucose [Mass/Vol] 77 mg/dL Normal 74-100 [facility] Microscopic Urinalysison Bacteria LM Ql (Urine sed) 2+ Abnormal None [facility] Character (U) Urine Reflexed to Culture Abnormal NOT REQ. [facility] Epithelial cells LM.HPF (Urine sed) [#/Area] 0 TO 2 [facility] Interpretation and review of laboratory results Abnormal [facility] RBC LM.HPF (Urine sed) [#/Area] 0 TO 2 [facility] WBC LM.HPF (Urine sed) [#/Area] 10 TO 20 [facility] No Panel Informationon 03-26 Interpretation and review of laboratory results Abnormal [facility] POCT glucoseOrdered By: Mery Bernstein on 03-26-2024 Interpretation and review of laboratory results Normal [facility] QC OK? yes [facility] Portable XR Chest AP single viewon 03-26-2024 No radiographic evidence of an acute cardiopulmonary process. [facility] EXAMINATION: ONE XRAY VIEW OF THE CHEST 03/26/2024 2:03 pm COMPARISON: 04/04/2023. HISTORY: ORDERING SYSTEM PROVIDED HISTORY: Shortness of Breath TECHNOLOGIST PROVIDED HISTORY: Shortness of Breath aphasia FINDINGS: The lungs and costophrenic angles are clear. The cardiomediastinal silhouette, pulmonary vessels and interstitium appear normal. [facility] Jose Holt MD - 03/26/2024 EXAMINATION: ONE XRAY VIEW OF THE CHEST 03/26/2024 2:03 pm COMPARISON: 04/04/2023. HISTORY: ORDERING SYSTEM PROVIDED HISTORY: Shortness of Breath TECHNOLOGIST PROVIDED HISTORY: Shortness of Breath aphasia FINDINGS: The lungs and costophrenic angles are clear. The cardiomediastinal silhouette, pulmonary vessels and interstitium appear normal. IMPRESSION: No radiographic evidence of an acute cardiopulmonary process. [facility] Radiology Study observation (narrative) [facility] Portable XR Chest AP single viewOrdered By: Jose Holt on 03-26-2024 [facility] Work Phone: Troponinon 03-26-2024 Troponin I.cardiac High sensitivity method [Mass/Vol] 25 ng/L High 0 - 14 ng/L [facility] Comment on above: High Sensitivity Tro ponin values cannot be compared with other Troponin methodologies. Troponin, High Sens 25 ng/L High 0-14 [facility] Comment on above: Result Comment: High Sensitivity Troponin values cannot be compared with other Troponin methodologies. Performed By: #### T ROPI #### [facility] [address] [place] [address] Group Account Director: Sharath Dennis MD UA w/Reflex Cultureon 2024 Bilirubin, SemiQt,Ur Negative Normal NEG [facility] Comment on above: Performed By: #### U RC #### [address] [address] Group Account Director: Wellington Back MD Blood, Urine Negative Normal NEG [facility] Comment on above: Performed By: #### U RC #### [facility] [employer] [facility] [place] [address] Group Account Director: Wellington Bcak MD Clarity (U) Clear Normal CLEAR [facility] Comment on above: Performed By: #### U RC #### [address] [address] Group Account Director: Wellington Back MD Color (U) Yellow Normal YEL [facility] Comment on above: Performed By: #### U RC #### [address] [address] Group Account Director: Wellington Back MD Glucose Ql (U) Negative Normal NEG [facility] Comment on above: Performed By: #### U RC #### [address] [address] Group Account Director: Wellington Back MD Ketones Ql (U) [facility] Comment on above: Performed By: #### U RC #### [address] [address] Group Account Director: Wellington Back MD Leukocyte esterase Test strip Ql (U) SMALL Abnormal NEG [facility] Comment on above: Performed By: #### U RC #### [address] [address] Group Account Director: Wellington Back MD Nitrite,Ur Positive Abnormal NEG [facility] Comment on above: Performed By: #### U RC #### [address] [address] Group Account Director: Wellington Back MD PH,Ur 6.0 Normal 5.0-9.0 [facility] Comment on above: Performed By: #### U RC #### [address] [address] Group Account Director: Wellington Back MD Protein Ql (U) Negative Normal NEG [facility] Comment on above: Performed By: #### U RC #### [address] [address] Group Account Director: Wellington Back MD Spec. Loving,Ur 1.010 Normal 1.010-1.020 [facility] Comment on above: Performed By: #### U RC #### [place] [id number] Group Account Director: Wellington Back MD Urobilinogen,Ur Normal Normal 0.0-1.0 [facility] Comment on above: Performed By: #### U RC #### [facility] [address] [place], [place] [id number] Group Account Director: Wellington Back MD Urinalysis with Reflex to Cu ltureon 03-26-2024 Bilirubin Ql (U) Negative NEGATIVE [facility] Clarity (U) Clear Clear [facility] Color (U) Yellow Yellow [facility] Glucose Test strip (U) [Mass/Vol] Negative NEGATIVE mg/dL [facility] Hemoglobin Auto test strip Ql (U) Negative NEGATIVE [facility] Interpretation and review of laboratory results Abnormal [facility] Ketones (U) [Mass/Vol] Negative NEGAT MAJOR mg/dL [facility] Leukocyte esterase Test strip Ql (U) SMALL Abnormal NEGATIVE [facility] Nitrite Ql (U) Positive Abnormal NEGATIVE [place] [facility] pH (U) 6.0 [pH] 5.0 - 9.0 [facility] Protein (U) [Mass/Vol] Negative NEGAT MAJOR mg/dL [facility] Specific gravity (U) [Rel density] 1.010 1.010 - 1.020 [facility] Urobilinogen Qn (U) Normal 0.0 - 1. 0 EU/dL [facility] Urinalysis,Microon 5 Bacteria 2+ Abnormal NONE [facility] Comment on above: Performed By: #### U RC #### [facility] [address] [place], [place] [id number] Group Account Director: Wellington aBck MD Epithelial cells LM Ql (Urine sed) 0 TO 2 Normal 0-25 [facility] Comment on above: Performed By: #### U RC #### [facility] [employer] [address] [place], [place] [id number] Group Account Director: Wellington Back MD Other Observations Urine Reflexed to Culture Abnormal NREQ [facility] Comment on above: Performed By: #### U RC #### [facility] [address] [place], [place] [id number] Group Account Director: Wellington Back MD Urine RBC's 0 TO 2 Normal 0-2 [facility] Comment on above: Performed By: #### U RC #### [facility] [employer] [address] [place], [place] [id number] Group Account Director: Wellington Back MD Urine WBC's 10 TO 20 Normal 0-5 [facility] Comment on above: Performed By: #### U RC #### [facility] [address] [place] [address] Group Account Director: Wellington Back MD XR CHEST PORTABLEon 03-26-19 [...] Jose Holt MD 03/26/24 Final result Normal [facility] CT LUMBAR SPINE WO CONTRASTo n 02-17-2024 [...] Holden Simon MD 02/17/24 Final result Normal [facility] CT Lumbar spine WO contrasto n 02-17-2024 [...] significant osseous neuroforaminal stenosis. Imaged abdomen/pelvis: Unremarkable. [facility] Holden Simon MD - [...] 20% height loss. 2. Multilevel lumbar spondylosis. [facility] CT Lumbar spine WO contrastO rdered By: Holden Simon on 02-17-[address] [facility] [address] Lumbar spine WO contrasto n 02-16-2024 Radiology Study observation (narrative) [facility] Microscopic Urinalysison Bacteria LM Ql (Urine sed) TRACE Abnormal None [facility] Epithelial cells LM.HPF (Urine sed) [#/Area] 2 TO 5 [facility] Interpretation and review of laboratory results Abnormal [facility] RBC LM.HPF (Urine sed) [#/Area] 0 TO 2 [facility] WBC LM.HPF (Urine sed) [#/Area] 2 TO 5 [facility] UA w/Reflex Cultureon 2023 Bilirubin, SemiQt,Ur Negative Normal NEG [facility] Comment on above: Performed By: #### U ARMAND UAX #### [facility] [address] [place] [address] Group Account Director: Sharath Dennis MD Blood, Urine Negative Normal NEG [facility] Comment on above: Performed By: #### U ARMAND UAX #### [facility] [address] [place] [address] Group Account Director: Sharath Dennis MD Clarity (U) Clear Normal CLEAR [facility] Comment on above: Performed By: #### U ARMAND UAX #### [facility] [address] [place] [address] Group Account Director: Sharath Dennis MD Color (U) Yellow Normal YEL [facility] Comment on above: Performed By: #### U LASHANDAO UAX #### [facility] [address] [place], [place] [id number] Group Account Director: Sharath Dennis MD Glucose Ql (U) Negative Normal NEG [facility] Comment on above: Performed By: #### U MICAO, UAX #### [facility] [address] [place], [place] [phone] Group Account Director: Sharath Dennis MD Ketones Ql (U) Negative Normal NEG [facility] Comment on above: Performed By: #### U MICAO, UAX #### [facility] [address] [place] [address] [address] [place], [place] [phone] Group Account Director: Sharath Dennis MD Leukocyte esterase Test strip Ql (U) SMALL Abnormal NEG [facility] Comment on above: Performed By: #### U MICAO, UAX #### [address] [place], [facility] Group Account Director: Sharath Dennis MD Nitrite,Ur Negative Normal NEG [facility] Comment on above: Performed By: #### U MICAO, UAX #### [address] [place], [place] [phone] Group Account Director: Sharath Dennis MD PH,Ur 6.0 Normal 5.0-9.0 [facility] Comment on above: Performed By: #### U MICAO, UAX #### [facility] [address] [place] [address] [place] [place], [place] [phone] Group Account Director: Sharath Dennis MD Protein Ql (U) Negative Normal NEG [facility] Comment on above: Performed By: #### U MICAO, UAX #### [facility] [address] [place] [address] [place] [place], [place] [phone] Group Account Director: Sharath Dennis MD Spec. Loving,Ur 1.015 Normal 1.010-1.020 [facility] Comment on above: Performed By: #### U MICAO, UAX #### [facility] [address] [place] [address] Group Account Director: Sharath Dennis MD Urobilinogen,Ur Normal Normal 0.0-1.0 [facility] Comment on above: Performed By: #### U LASHANDAO, UAX #### [facility] [address] [place] [address] Group Account Director: Sharath Dennis MD Urinalysis with Reflex to Cu ltureon 01-21-2024 Bilirubin Ql (U) Negative NEGATIVE [facility] Clarity (U) Clear Clear [facility] Color (U) Yellow Yellow [facility] Glucose Test strip (U) [Mass/Vol] Negative NEGATIVE mg/dL [facility] Hemoglobin Auto test strip Ql (U) Negative NEGATIVE [facility] Interpretation and review of laboratory results Abnormal [facility] Ketones (U) [Mass/Vol] Negative NEGAT MAJOR mg/dL [facility] Leukocyte esterase Test strip Ql (U) SMALL Abnormal NEGATIVE [facility] Nitrite Ql (U) Negative NEGATIVE [facility] pH (U) 6.0 [pH] 5.0 - 9.0 [facility] Protein (U) [Mass/Vol] Negative NEGAT MAJOR mg/dL [facility] Specific gravity (U) [Rel density] 1.015 1.010 - 1.020 [facility] Urobilinogen Qn (U) Normal 0.0 - 1. 0 EU/dL [facility] Urinalysis,Microon 4 Bacteria TRACE Abnormal NONE [facility] Comment on above: Performed By: #### U ARMAND UAX #### [facility] [address] [place] [address] Group Account Director: Sharath Dennis MD Epithelial cells LM Ql (Urine sed) 2 TO 5 Normal 0-25 [facility] Comment on above: Performed By: #### U ARMAND UAX #### [facility] [address] [place] [address] Group Account Director: Sharath Dennis MD Urine RBC's 0 TO 2 Normal 0-2 [facility] Comment on above: Performed By: #### U MICAO, UAX #### [facility] [address] [place], [place] [phone] Group Account Director: Sharath Dennis MD Urine WBC's 2 TO 5 Normal 0-5 [facility] Comment on above: Performed By: #### U MICAO, UAX #### [facility] [address] [place], [place] [phone] Group Account Director: Sharath Dennis MD XR LUMBAR SPINE (2-3 [...] Kel Hennessy MD 01/21/24 Final result Normal [facility] XR Lumbar spine 2 or 3 Views on 01-21-2024 Multilevel degenerative change without acute abnormality of the lumbar spine. [facility] EXAMINATION: 3 XRAY VIEWS OF [...] The surrounding soft tissues are unremarkable. [facility] Kel Hennessy MD - 01/21/2024 [...] without acute abnormality of the lumbar spine. [facility] Radiology Study observation (narrative) [facility] XR Lumbar spine 2 or 3 Views Ordered By: Kel Hennessy on 01-21-2024 [facility] Work Phone: Hemoglobin A1Con 10-23-2023 Glucose [Mass/Vol] 123 mg/dL Normal [facility] Comment on above: Result Comment: The ADA and AACC recommend providing the estimated average glucose result to permit better patient understanding of their HBA1c result. Performed By: #### Erin ACUNA UAX #### [facility] [address] [place] [address] [place] [address] Group Account Director: Sharath Dennis MD HbA1c (Bld) [Mass fraction] 5.9 % Normal 4.0-6.0 [facility] Comment on above: Performed By: #### Erin ACUNA UAX #### [facility] [address] [place] [address] Group Account Director: Sharath Dennis MD Lipid Profileon 10-23-2023 Cholesterol [Mass/Vol] 146 mg/dL Normal 0-199 [facility] Comment on above: Result Comment: Cholesterol Guidelines: <200 Desirable 200-240 Borderline >240 Undesirable Performed By: #### U ARMAND, UAX #### [facility] [address] [place] [address] Group Account Director: Sharath Dennis MD Cholesterol in HDL [Mass/Vol] 87 mg/dL Normal >40 [facility] Comment on above: Result Comment: HDL Guidelines: <40 Undesirable 40-59 Borderline >59 Desirable Performed By: #### U ARMAND, UAX #### [facility] [address] [place] [address] Group Account Director: Sharath Dennis MD Cholesterol in LDL [Mass/Vol] 50 mg/dL Normal 0-100 [facility] Comment on above: Result Comment: LDL Guidelines: <100 Desirable 100-129 Near to/above Desirable 130-159 Borderline >159 Undesirable Direct (measured) LDL and calculated LDL are not interchangeable tests. Performed By: #### U ARMAND, UAX #### [facility] [address] [place], [place] [phone] Group Account Director: Sharath Dennis MD Cholesterol in VLDL [Mass/Vol] 9 mg/dL Normal [facility] Comment on above: Performed By: #### Erin ACUNA, UAX #### [facility] [address] [place] [address] Group Account Director: Sharath Dennis MD Cholesterol.total/Chol esterol in HDL [Mass ratio] 2.0 {ratio} Normal [facility] Comment on above: Performed By: #### Erin ACUNA UAX #### [facility] [address] [place] [address] Group Account Director: Sharath Dennis MD Triglyceride [Mass/Vol] 45 mg/dL Normal <150 [facility] Comment on above: Result Comment: Triglyceride Guidelines: <150 Desirable 150-199 Borderline 200-499 High >499 Very high Based on AHA Guidelines for fasting triglyceride, November 2011. Performed By: #### U ARMAND, UAX #### [facility] [address] [place] [address] Group Account Director: Sharath Dennis MD BUN (Urea N)on 10-22-2023 Urea nitrogen [Mass/Vol] 29 mg/dL High 09-30 [facility] Comment on above: Performed By: #### D RAYSA, LYTE, TSH, CBC, CREG, LIVP, BUN, BNP #### [facility] [address] [place] [address] Group Account Director: Sharath Dennis MD #### GLYHGB, LIPR #### [place] [address] [place], [place] [id number] Group Account Director: Wellington Back MD Brain Natri. Peptideon 10-21 Natriuretic peptide B (Bld) [Mass/Vol] 422 pg/mL Normal 0-450 [facility] Comment on above: Performed By: #### D RAYSA, LYTE, TSH, CBC, CREG, LIVP, BUN, BNP #### [facility] [address] [place] [address] [place] [address] Group Account Director: Sharath Dennis MD #### GLYHGSunil, LIPR #### [address] [address] Group Account Director: Wellington Back MD [facility] Erythrocyte distribution width (RBC) [Ratio] 13.8 % Normal 11.8-14.4 [facility] Comment on above: Performed By: #### Jasmin RAYSA, LYTE, TSH, CBC, CREG, LIVP, BUN, BNP #### [address] [place] [phone] Group Account Director: Sharath Dennis MD #### MILLY, LIPR #### [address] [phone] Group Account Director: Wellington Back MD Hematocrit (Bld) [Volume fraction] 36.4 % Normal 36.3-47.1 [facility] Comment on above: Performed By: #### D RAYSA, LYTE, TSH, CBC, CREG, LIVP, BUN, BNP #### [address] [place] [address] Group Account Director: Sharath Dennis MD #### GLYHGSunil, LIPR #### [address] [id number] Group Account Director: Wellington Back MD Hemoglobin (Bld) [Mass/Vol] 11.6 g/dL Low 11.9-15.1 [facility] Comment on above: Performed By: #### Jasmin RAYSA, LYTE, TSH, CBC, CREG, LIVP, BUN, BNP #### [address] [place] [phone] Group Account Director: Sharath Dennis MD #### GLYHGB, LIPR #### [address] [phone] Group Account Director: Wellington Back MD MCH (RBC) [Entitic mass] 29.6 pg Normal 25.2-33.5 [facility] Comment on above: Performed By: #### Jasmin RAYSA, LYTE, TSH, CBC, CREG, LIVP, BUN, BNP #### [address] [place] [phone] Group Account Director: Sharath Dennis MD #### GLYHGB, LIPR #### [place] [phone] Group Account Director: Wellington Back MD MCHC (RBC) [Mass/Vol] 31.9 g/dL Normal 28.4-34.8 [facility] Comment on above: Performed By: #### Jasmin RAYSA, LYTE, TSH, CBC, CREG, LIVP, BUN, BNP #### [address] [place] [phone] Group Account Director: Sharath Dennis MD #### GLYHGB, LIPR #### [address] [place], [place] [phone] Group Account Director: Wellington Back MD MCV (RBC) [Entitic vol] 92.9 fL Normal 82.6-102.9 [facility] Comment on above: Performed By: #### Jasmin RAYSA, LYTE, TSH, CBC, CREG, LIVP, BUN, BNP #### [address] [place] [address] Group Account Director: Sharath Dennis MD #### GLYHGB, LIPR #### [address] [phone] Group Account Director: Wellington Back MD NRBC Automated 0.0 per 100 WBC Normal 0.0 [facility] Comment on above: Performed By: #### D RAYSA, LYTE, TSH, CBC, CREG, LIVP, BUN, BNP #### [address] [place] [phone] Group Account Director: Sharath Dennis MD #### GLYHGB, LIPR #### [address] [phone] Group Account Director: Wellington Back MD Platelet mean volume (Bld) [Entitic vol] 9.9 fL Normal 8.1-13.5 [facility] Comment on above: Performed By: #### D RAYSA, LYTE, TSH, CBC, CREG, LIVP, BUN, BNP #### [address] [place] [phone] Group Account Director: Sharath Dennis MD #### ANDREIHGSunil, LIPR #### [address] [address] Group Account Director: Wellington Back MD Platelets (Bld) [#/Vol] 291 10*3/uL Normal 138-453 [facility] Comment on above: Performed By: #### D RAYSA, LYTE, TSH, CBC, CREG, LIVP, BUN, BNP #### [address] [place], [place] [phone] Group Account Director: Sharath Dennis MD #### GLYHGB, LIPR #### [address] [phone] Group Account Director: Wellington Back MD RBC (Bld) [#/Vol] 3.92 10*6/uL Low 3.95-5.11 [facility] Comment on above: Performed By: #### D RAYSA, LYTE, TSH, CBC, CREG, LIVP, BUN, BNP #### [facility] [address] [place], [place] [phone] Group Account Director: Sharath Dennis MD #### GLYHGB, LIPR #### [facility] [address] [place], [place] [phone] Group Account Director: Wellington Back MD WBC (Bld) [#/Vol] 7.7 10*3/uL Normal 3.5-11.3 [facility] Comment on above: Performed By: #### D RAYSA, LYTE, TSH, CBC, CREG, LIVP, BUN, BNP #### [address] [place] [address] Group Account Director: Sharath Dennis MD #### GLYALMA, LIPR #### [facility] [address] [place], [place] [phone] Group Account Director: Wellington Back MD Creatinine w/GFRon 4 Creatinine [Mass/Vol] 1.1 mg/dL High 0.50-0.90 [facility] Comment on above: Performed By: #### U MICAO, UAX #### [address] [place] [phone] Group Account Director: Sharath Dennis MD GFR/1.73 sq M.predicted among non-blacks MDRD (S/P/Bld) [Vol rate/Area] 50 mL/min/{1.73_m2} Low >60 [facility] Comment on above: Result Comment: These results [...] Performed By: #### Erin ACUNA UAX #### [facility] [address] [place] [address] Group Account Director: Sharath Dennis MD D-Dimer Teston 10-22-2023 D-Dimer Test 0.41 ug/mL FEU Normal 0.00-0.59 [facility] Comment on above: Result Comment: [...] Performed By: #### U ARMAND UAX #### [facility] [address] [place] [address] Group Account Director: Sharath Dennis MD Electrolyteson 10-22-2023 Anion gap [Moles/Vol] 10 mmol/L Normal 9-16 [facility] Comment on above: Performed By: #### U ARMAND UAX #### [facility] [address] [place] [address] Group Account Director: Sharath Dennis MD Chloride [Moles/Vol] 106 mmol/L Normal 98-107 [facility] Comment on above: Performed By: #### U ARMAND UAX #### [facility] [address] [place], [place] [phone] Group Account Director: Sharath Dennis MD CO2 [Moles/Vol] 26 mmol/L Normal 20-31 [facility] Comment on above: Performed By: #### U ARMAND, UAX #### [facility] [address] [place] [address] Group Account Director: Sharath Dennis MD Potassium [Moles/Vol] 4.2 mmol/L Normal 3.7-5.3 [facility] Comment on above: Performed By: #### Erin ACUNA UAX #### [facility] [address] [place], [place] [phone] Group Account Director: Sharath Dennis MD Sodium [Moles/Vol] 142 mmol/L Normal 136-145 [facility] Comment on above: Performed By: #### Erin ACUNA UAX #### [facility] [address] [place], [place] [phone] Group Account Director: Sharath Dennis MD Liver Profileon 10-22-2023 Albumin [Mass/Vol] 4.1 g/dL Normal 3.5-5.2 [facility] Comment on above: Performed By: #### U ARMAND UAX #### [facility] [address] [place], [place] [phone] Group Account Director: Sharath Dennis MD Albumin/Glob Ratio 1.6 Normal 1.0-2.5 [facility] Comment on above: Performed By: #### U ARMAND, UAX #### [facility] [address] [place], [place] [phone] Group Account Director: Sharath Dennis MD Alkaline Phos 96 U/L Normal 35-104 [facility] Comment on above: Performed By: #### U MICAO, UAX #### [address] [place] [address] Group Account Director: Sharath Dennis MD ALT [Catalytic activity/Vol] 20 U/L Normal -35 [facility] Comment on above: Performed By: #### U MICAO, UAX #### [facility] [address] [place] [address] [address] [place], [place] [phone] Group Account Director: Sharath Dennis MD AST [Catalytic activity/Vol] 25 U/L Normal -35 [facility] Comment on above: Performed By: #### U MICAO, UAX #### [address] [place], [place] [phone] Group Account Director: Sharath Dennis MD Bilirubin [Mass/Vol] 0.5 mg/dL Normal 0.00-1.20 [facility] Comment on above: Performed By: #### U MICAO, UAX #### [address] [place], [place] [phone] Group Account Director: Sharath Dennis MD Bilirubin, Indirect 0.2 mg/dL Normal 0.0-1.0 [facility] Comment on above: Performed By: #### U MICAO, UAX #### [address] [place] [address] Group Account Director: Sharath Dennis MD Bilirubin.indirect [Mass/Vol] 0.3 mg/dL Normal 0.00-0.30 [facility] Comment on above: Performed By: #### U MICAO, UAX #### [facility] [address] [place] [address] [place] [address] Group Account Director: Sharath Dennis MD Protein [Mass/Vol] 6.7 g/dL Normal 6.6-8.7 [facility] Comment on above: Performed By: #### U MICAO, UAX #### [facility] [address] [place] [address] [place] [address] Group Account Director: Sharath Dennis MD Thyroid Stim. Horm.on 2023 Thyroid Stim. Horm. 3.00 uIU/mL Normal 0.27-4.20 [facility] Comment on above: Performed By: #### U MICAO, UAX #### [facility] [address] [place] [address] Group Account Director: Sharath Dennis MD CBC with Auto Differentialon 10-21-2021 Absolute Eos # 0.20 [facility] Absolute Immature Granulocyte [facility] Absolute Lymph # 1.03 Low [facility] Absolute Pope # 0.60 [facility] Basophils Absolute [facility] Basophils/100 WBC (Bld) 0 % 0 - 2 % [facility] Eosinophils/100 WBC (Bld) 5 % High 1 - 4 % [facility] Hematocrit (Bld) [Volume fraction] 38.4 % 36.3 - 47.1 % [facility] Hemoglobin (Bld) [Mass/Vol] 11.8 g/dL Low 11.9 - 15.1 g/dL [facility] Immature granulocytes/100 WBC (Bld) 0 % 0 [facility] Interpretation and review of laboratory results Abnormal [facility] Lymphocytes/100 WBC (Bld) 23 % Low 24 - 43 % [facility] MCH (RBC) [Entitic mass] 29.3 pg 25.2 - 33.5 pg [facility] MCHC (RBC) [Mass/Vol] 30.7 g/dL 28.4 - 34.8 g/dL [facility] MCV (RBC) [Entitic vol] 95.3 fL 82.6 - 102.9 fL [facility] Monocytes/100 WBC (Bld) 14 % High 3 - 12 % [facility] NRBC Automated 0.0 0.0 per 100 WBC [facility] Platelet distribution width (Bld) [Ratio] 14.1 % 11.8 - 14.4 % [facility] Platelet mean volume (Bld) [Entitic vol] 9.8 fL 8.1 - 13.5 fL [facility] Platelets (Bld) [#/Vol] 185 10*3/uL [facility] RBC (Bld) [#/Vol] 4.03 10*6/uL 3.95 - 5.1 1 m/uL [facility] Segmented neutrophils/100 WBC (Bld) 58 % 36 - 65 % [facility] Segs Absolute 2.59 [facility] WBC (Bld) [#/Vol] 4.5 10*3/uL [facility] CMPon 10-21-2021 Albumin [Mass/Vol] 4.2 g/dL 3.5 - 5.2 g/dL [facility] Albumin/Globulin [Mass ratio] 1.7 {ratio} 1 - 2.5 [facility] ALP (Bld) [Catalytic activity/Vol] 100 U/L 35 - 104 U/L [facility] ALT [Catalytic activity/Vol] 21 U/L 5 - 33 U/L [facility] Anion gap [Moles/Vol] 9 mmol/L 9 - 17 mmol/L [facility] AST [Catalytic activity/Vol] 21 U/L NINF - 32 U/L [facility] Bilirubin [Mass/Vol] 0.5 mg/dL 0.3 - 1 .2 mg/dL [facility] Calcium [Mass/Vol] 9.6 mg/dL 8.6 - 10. 4 mg/dL [facility] Chloride [Moles/Vol] 102 mmol/L 98 - 10 7 mmol/L [facility] CO2 [Moles/Vol] 27 mmol/L 20 - 31 mmol/L [facility] Creatinine [Mass/Vol] 0.73 mg/dL 0.5 - 0.9 mg/dL [facility] Free PSA/Total PSA [Mass fraction] 6.7 g/dL 6.4 - 8.3 g/dL [facility] GFR >60 60 - PI NF mL/min [facility] GFR Non- >60 60 - PINF mL/min [facility] Glucose [Mass/Vol] 94 mg/dL 70 - 99 mg/dL [facility] Interpretation and review of laboratory results Abnormal [facility] Potassium [Moles/Vol] 4.3 mmol/L 3.7 - 5.3 mmol/L [facility] Sodium [Moles/Vol] 138 mmol/L 135 - 144 mmol/L [facility] Urea nitrogen (BldV) [Mass/Vol] 20 mg/dL 8 - 23 mg/dL [facility] Urea nitrogen/Creatinine (Bld) [Mass ratio] 27 High 9 - 20 [facility] Laboratory - Chemistry and C hemistry - challengeon 10-21-2021 GFR/1.73 sq M.predicted MDRD (S/P/Bld) [Vol rate/Area] [facility] Comment on above: Average GFR for 70 o r more years old: 75 mL/min/1.73sq m Chronic Kidney Disease: <60 mL/min/1.73sq m Kidney failure: <15 mL/min/1.73sq m eGFR calculated using average adult body mass. Additional eGFR calculator available at: http://www.GoCrossCampus/multiple_crcl_2012.htm Stage 1: Some kidney damage normal GFR Stage 2: Mild kidney damage GFR 60-89 Stage 3: Moderate kidney damage GFR 30-59 Stage 4: Severe kidney damage GFR 15-29 Stage 5: Severe kidney damage GFR <15 ESRD - chronic treatment by dialysis or transplant Troponinon 10-21-2021 Troponin, High Sensitivity 13 ng/L 0 - 14 ng/L [facility] Comment on above: High Sensitivity Troponin values cannot be compared with other Troponin methodologies. Patients with high levels of Biotin oral intake (i.e >5mg/day) may have falsely decreased Troponin levels. Samples collected within 8 hours of biotin intake may require additional information for diagnosis. [facility] Interpretation and review of laboratory results Abnormal [facility] Troponin, High Sensitivity 16 ng/L High 0 - 14 ng/L [facility] Comment on above: High Sensitivity Troponin values cannot be compared with other Troponin methodologies. Patients with high levels of Biotin oral intake (i.e >5mg/day) may have falsely decreased Troponin levels. Samples collected within 8 hours of biotin intake may require additional information for diagnosis. [facility] XR FOOT LEFT (MIN 3 VIEWS)on 10-16-2021 No acute findings. [facility] EXAMINATION: THREE XRAY VIEWS OF THE LEFT FOOT 10/15/2021 4:02 pm COMPARISON: None. HISTORY: ORDERING SYSTEM PROVIDED HISTORY: Pain FINDINGS: Foot alignment is anatomic. Generalized osteopenia. No acute fracture. Mild degenerative change midfoot. Threaded screw anterior aspect of the calcaneus. Soft tissues unremarkable. [facility] Hermes Cortez DO - 10/16/2021 EXAMINATION: THREE XRAY VIEWS OF THE LEFT FOOT 10/15/2021 4:02 pm COMPARISON: None. HISTORY: ORDERING SYSTEM PROVIDED HISTORY: Pain FINDINGS: Foot alignment is anatomic. Generalized osteopenia. No acute fracture. Mild degenerative change midfoot. Threaded screw anterior aspect of the calcaneus. Soft tissues unremarkable. IMPRESSION: No acute findings. [facility] Work Phone: XR FOOT LEFT (MIN 3 VIEWS)Or dered By: Hermes oCrtez on 10-16-2021 [facility] Work Phone: XR FOOT RIGHT (MIN 3 VIEWS)o n 10-16-2021 No acute findings. [facility] EXAMINATION: THREE XRAY VIEWS OF THE RIGHT FOOT 10/15/2021 4:03 pm COMPARISON: None. HISTORY: ORDERING SYSTEM PROVIDED HISTORY: Pain FINDINGS: No acute findings. Mild hallux valgus deformity. Moderate degenerative change midfoot and 1st metatarsophalangeal joint. Generalized osteopenia. Soft tissues unremarkable. [facility] Hermes Cortez DO - 10/16/2021 EXAMINATION: THREE XRAY VIEWS OF THE RIGHT FOOT 10/15/2021 4:03 pm COMPARISON: None. HISTORY: ORDERING SYSTEM PROVIDED HISTORY: Pain FINDINGS: No acute findings. Mild hallux valgus deformity. Moderate degenerative change midfoot and 1st metatarsophalangeal joint. Generalized osteopenia. Soft tissues unremarkable. IMPRESSION: No acute findings. [employer] Phone: XR FOOT RIGHT (MIN 3 VIEWS)O rdered By: Hermes Cortez on 10-16-2021 [facility] [employer] Work Phone: Basic Metabolic Panelon Anion gap [Moles/Vol] 10 mmol/L 9 - 17 mmol/L [facility] Calcium [Mass/Vol] 9.7 mg/dL 8.6 - 10. 4 mg/dL [facility] [employer] Chloride [Moles/Vol] 105 mmol/L 98 - 10 7 mmol/L [facility] [employer] CO2 [Moles/Vol] 27 mmol/L 20 - 31 mmol/L [facility] [employer] Creatinine [Mass/Vol] 0.84 mg/dL 0.5 - 0.9 mg/dL [facility] GFR >60 60 - PI NF mL/min [facility] GFR Non- >60 60 - PINF mL/min [facility] Glucose [Mass/Vol] 98 mg/dL 70 - 99 mg/dL [facility] Interpretation and review of laboratory results Abnormal [facility] Potassium [Moles/Vol] 4.5 mmol/L 3.7 - 5.3 mmol/L [facility] [employer] Sodium [Moles/Vol] 142 mmol/L 135 - 144 mmol/L [facility] [employer] Urea nitrogen (BldV) [Mass/Vol] 29 mg/dL High 8 - 23 mg/dL [facility] [employer] Urea nitrogen/Creatinine (Bld) [Mass ratio] 35 High 9 - 20 [facility] Laboratory - Chemistry and C hemistry - challengeon 10-15-2021 GFR/1.73 sq M.predicted MDRD (S/P/Bld) [Vol rate/Area] [facility] Comment on above: Average GFR for 70 o r more years old: 75 mL/min/1.73sq m Chronic Kidney Disease: <60 mL/min/1.73sq m Kidney failure: <15 mL/min/1.73sq m eGFR calculated using average adult body mass. Additional eGFR calculator available at: http://www.Leapfactor.Keemotion/multiple_crcl_2011.htm Stage 1: Some kidney damage normal GFR Stage 2: Mild kidney damage GFR 60-89 Stage 3: Moderate kidney damage GFR 30-59 Stage 4: Severe kidney damage GFR 15-29 Stage 5: Severe kidney damage GFR <15 ESRD - chronic treatment by dialysis or transplant No Panel Informationon 10-15 [facility] Sedimentation Rateon 022 Sed Rate 9 [facility] Uric Acidon 10-15-2021 Urate [Mass/Vol] 4.5 mg/dL 2.4 - 5.7 mg/dL [facility] XR FOOT LEFT (MIN 3 VIEWS)on 10-15-2021 Radiology Study observation (narrative) [facility] Work Phone: XR FOOT RIGHT (MIN 3 VIEWS)o n 10-15-2021 Radiology Study observation (narrative) [facility] Work Phone: CBC with Auto Differentialon 10-05-2021 Absolute Eos # 0.23 [facility] Absolute Immature Granulocyte 0.07 [facility] Absolute Lymph # 1.92 [place] [facility] Absolute Pope # 1.14 [facility] RS [facility] Basophils Absolute [facility] [facility] Basophils/100 WBC (Bld) 0 % 0 - 2 % [facility] Eosinophils/100 WBC (Bld) 3 % 1 - 4 % [facility] Hematocrit (Bld) [Volume fraction] 38.6 % 36.3 - 47.1 % [facility] Hemoglobin (Bld) [Mass/Vol] 12.0 g/dL 11.9 - 15.1 g/dL [facility] Immature granulocytes/100 WBC (Bld) 1 % High 0 [facility] Interpretation and review of laboratory results Abnormal [facility] Lymphocytes/100 WBC (Bld) 24 % 24 - 43 % [facility] MCH (RBC) [Entitic mass] 29.6 pg 25.2 - 33.5 pg [facility] MCHC (RBC) [Mass/Vol] 31.1 g/dL 28.4 - 34.8 g/dL [facility] MCV (RBC) [Entitic vol] 95.1 fL 82.6 - 102.9 fL [facility] Monocytes/100 WBC (Bld) 15 % High 3 - 12 % [facility] NRBC Automated 0.0 0.0 per 100 WBC [facility] Platelet distribution width (Bld) [Ratio] 13.2 % 11.8 - 14.4 % [facility] Platelet mean volume (Bld) [Entitic vol] 9.1 fL 8.1 - 13.5 fL [facility] Platelets (Bld) [#/Vol] 278 10*3/uL [facility] RBC (Bld) [#/Vol] 4.06 10*6/uL 3.95 - 5.1 1 m/uL [facility] Segmented neutrophils/100 WBC (Bld) 57 % 36 - 65 % [facility] Segs Absolute 4.51 [facility] WBC (Bld) [#/Vol] 7.9 10*3/uL [facility] CMPon 10-05-2021 Albumin [Mass/Vol] 3.7 g/dL 3.5 - 5.2 g/dL [facility] Albumin/Globulin [Mass ratio] 1.5 {ratio} 1 - 2.5 [facility] ALP (Bld) [Catalytic activity/Vol] 93 U/L 35 - 104 U/L [facility] ALT [Catalytic activity/Vol] 20 U/L 5 - 33 U/L [facility] Anion gap [Moles/Vol] 10 mmol/L 9 - 17 mmol/L [facility] AST [Catalytic activity/Vol] 17 U/L NINF - 32 U/L [facility] Bilirubin [Mass/Vol] 0.31 mg/dL 0.3 - 1 .2 mg/dL [facility] Calcium [Mass/Vol] 9.1 mg/dL 8.6 - 10. 4 mg/dL [facility] Chloride [Moles/Vol] 104 mmol/L 98 - 10 7 mmol/L [facility] CO2 [Moles/Vol] 25 mmol/L 20 - 31 mmol/L [facility] Creatinine [Mass/Vol] 0.7 mg/dL 0.5 - 0.9 mg/dL [facility] Free PSA/Total PSA [Mass fraction] 6.1 g/dL Low 6.4 - 8.3 g/dL [facility] GFR >60 60 - PI NF mL/min [facility] GFR Non- >60 60 - PINF mL/min [facility] Glucose [Mass/Vol] 95 mg/dL 70 - 99 mg/dL [facility] Interpretation and review of laboratory results Abnormal [facility] Potassium [Moles/Vol] 4.2 mmol/L 3.7 - 5.3 mmol/L [facility] Sodium [Moles/Vol] 139 mmol/L 135 - 144 mmol/L [facility] Urea nitrogen (BldV) [Mass/Vol] 35 mg/dL High 8 - 23 mg/dL [facility] Urea nitrogen/Creatinine (Bld) [Mass ratio] 50 High 9 - 20 [facility] COVID-19, Rapidon 10-05-2021 SARS-CoV-2 (COVID-19) RNA LADAN+probe Ql (Unsp spec) Not detected Not Detected [facility] Comment on above: Rapid NAAT: The specimen [...] management decisions. Fact sheet for Healthcare Providers: https://www.fda.gov/media/402032/download Fact sheet for Patients: https://www.fda.gov/media/121218/download Methodology: Isothermal Nucleic Acid Amplification Specimen Description .NASOPHARYNGEAL SWAB [facility] CT Head WO Contraston 2021 No acute intracrania l abnormality. Findings were discussed with ELIECER BURRIS at 2:38 pm on 10/05/2021. [facility] EXAMINATION: CT OF THE HEAD [...] the visualized skull or soft tissues. [facility] Kel Hennessy MD - 10/05/2021 [...] ELIECER BURRIS at 2:38 pm on 10/05/2021. [facility] Work Phone: Radiology Study observation (narrative) [employer] Phone: CT Head WO ContrastOrdered B y: Kel Henenssy on 10-05-2021 [facility] Work Phone: CTA HEAD NECK W CONTRASTon 0 10-05-2021 No acute abnormality or flow limiting stenosis of the major arteries of the head and neck. 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 [facility] EXAMINATION: CTA OF THE [...] fluid collection. The kevin-white differentiation is maintained. [facility] Angelito Alfonso MD - [...] by teleneuro TECHNOLOGIST PROVIDED HISTORY: Requested by [employer]Polyplex Decision Support Exception - unselect if not [...] proximal to mid basilar artery, normal variant. [facility] Work Phone: Radiology Study observation (narrative) [facility] Work Phone: CTA HEAD NECK W CONTRASTOrde red By: Angelito Alfonso on 10-05-2021 [employer] [facility] Work Phone: Glucose, Whole Bloodon 10-05 Glucose [Mass/Vol] 109 mg/dL High 74 - 100 mg/dL [facility] [employer] Interpretation and review of laboratory results Abnormal [facility] Laboratory - Chemistry and C hemistry - challengeon 10-05-2021 GFR/1.73 sq M.predicted MDRD (S/P/Bld) [Vol rate/Area] [facility] [employer] Comment on above: Average GFR for 70 o r more years old: 75 mL/min/1.73sq m Chronic Kidney Disease: <60 mL/min/1.73sq m Kidney failure: <15 mL/min/1.73sq m eGFR calculated using average adult body mass. Additional eGFR calculator available at: http://www.Leapfactor.Keemotion/multiple_crcl_2012.htm Stage 1: Some kidney damage normal GFR Stage 2: Mild kidney damage GFR 60-89 Stage 3: Moderate kidney damage GFR 30-59 Stage 4: Severe kidney damage GFR 15-29 Stage 5: Severe kidney damage GFR <15 ESRD - chronic treatment by dialysis or transplant Magnesiumon 10-05-2021 Magnesium [Mass/Vol] 1.9 mg/dL 1.6 - 2 .6 mg/dL [facility] [employer] No Panel Informationon 10-05 [facility] [employer] POCT glucoseon 10-05-2021 Glucose [Mass/Vol] 109 mg/dL [facility] Work Phone: Interpretation and review of laboratory results Normal [facility] Work Phone: QC OK? y [facility] Work Phone: [facility] Work Phone: Troponinon 10-05-2021 Troponin, High Sensitivity 13 ng/L 0 - 14 ng/L [facility] Comment on above: High Sensitivity Troponin values cannot be compared with other Troponin methodologies. Patients with high levels of Biotin oral intake (i.e >5mg/day) may have falsely decreased Troponin levels. Samples collected within 8 hours of biotin intake may require additional information for diagnosis. [facility] Urinalysis with Microscopico n 10-05-2021 Bacteria, UA TRACE Abnormal None [facility] Bilirubin Urine Negative NEGATIVE [facility] Color, UA Yellow Yellow [facility] Epithelial Cells UA 0 TO 2 [facility] Glucose, Ur Negative NEGATIVE [facility] Interpretation and review of laboratory results Abnormal [facility] Ketones Ql (U) Negative NEGATIVE [facility] Leukocyte esterase Test strip Ql (U) SMALL Abnormal NEGATIVE [facility] Nitrite, Urine Negative NEGATIVE [facility] pH, UA 7.0 5 - 9 [facility] Protein, UA Negative NEGATIVE [facility] RBC, UA None [facility] Specific Loving, UA Low 1.01 - 1.02 [facility] Turbidity UA Clear Clear [facility] Urine Hgb Negative NEGATIVE [facility] Urobilinogen, Urine Normal Normal [facility] WBC, UA 2 TO 5 [facility] XR CHEST PORTABLEon 10-06-19 22 No acute [...] is stable. The osseous structures are stable. [facility] Mikael Valdes MD - [...] structures are stable. IMPRESSION: No acute process. [facility] Work Phone: Radiology Study observation (narrative) [facility] Work Phone: XR CHEST PORTABLEOrdered By: Mikael Valdes on 10-05-2021 [facility] Work Phone: BUNon 07-22-2021 Urea nitrogen (BldV) [Mass/Vol] 33 mg/dL High 8 - 23 mg/dL [facility] Brain Natriuretic Peptideon 07-22-2021 Natriuretic peptide B (Bld) [Mass/Vol] 186 pg/mL <300 [facility] Comment on above: An age-independent cutoff point of 300 pg/ml has a 98% negative predictive value excluding acute heart failure. CBCon 07-22-2021 Hematocrit (Bld) [Volume fraction] 37.0 % 36.3 - 47.1 % [facility] Hemoglobin (Bld) [Mass/Vol] 11.7 g/dL Low 11.9 - 15.1 g/dL [facility] Interpretation and review of laboratory results Abnormal [facility] [employer] MCH (RBC) [Entitic mass] 29.5 pg 25.2 - 33.5 pg [facility] [employer] MCHC (RBC) [Mass/Vol] 31.6 g/dL 28.4 - 34.8 g/dL [facility] MCV (RBC) [Entitic vol] 93.2 fL 82.6 - 102.9 fL [facility] [employer] NRBC Automated 0.0 0.0 per 100 WBC [facility] Platelet distribution width (Bld) [Ratio] 13.8 % 11.8 - 14.4 % [facility] Platelet mean volume (Bld) [Entitic vol] 10.2 fL 8.1 - 13.5 fL [facility] Platelets (Bld) [#/Vol] 191 10*3/uL [facility] RBC (Bld) [#/Vol] 3.97 10*6/uL 3.95 - 5.1 1 m/uL [facility] WBC (Bld) [#/Vol] 5.3 10*3/uL [facility] Creatinineon 07-22-2021 Creatinine [Mass/Vol] 0.69 mg/dL 0.50 - 0.90 mg/dL [facility] GFR >60 >60 mL/min [facility] GFR Non- >60 >60 mL/min [facility] Electrolyte Panelon 07-23-19 22 Anion gap [Moles/Vol] 8 mmol/L Low 9 - 17 mmol/L [facility] Chloride [Moles/Vol] 107 mmol/L 98 - 10 7 mmol/L [facility] CO2 [Moles/Vol] 27 mmol/L 20 - 31 mmol/L [facility] Potassium [Moles/Vol] 4.2 mmol/L 3.7 - 5.3 mmol/L [facility] Sodium [Moles/Vol] 142 mmol/L 135 - 144 mmol/L [facility] Laboratory - Chemistry and C hemistry - challengeon 07-22-2021 GFR/1.73 sq M.predicted MDRD (S/P/Bld) [Vol rate/Area] [facility] Comment on above: Average GFR for 70 o r more years old: 75 mL/min/1.73sq m Chronic Kidney Disease: <60 mL/min/1.73sq m Kidney failure: <15 mL/min/1.73sq m eGFR calculated using average adult body mass. Additional eGFR calculator available at: http://www.Leapfactor.Keemotion/multiple_crcl_2011.htm Stage 1: Some kidney damage normal GFR Stage 2: Mild kidney damage GFR 60-89 Stage 3: Moderate kidney damage GFR 30-59 Stage 4: Severe kidney damage GFR 15-29 Stage 5: Severe kidney damage GFR <15 ESRD - chronic treatment by dialysis or transplant No Panel Informationon 07-22 Interpretation and review of laboratory results Abnormal [facility] VL DUP LOWER EXTREMITY VENOU S LEFTon 03-04-2021 Result, Unknown Provider - 03/04/2021 [facility] Vascular Lower Extremities DVT Study Procedure Patient Name SPENCER Date of Study 03/03/2021 EVER Mckay Date of 1940 Gender Female Age 80 year(s) Race Room Number Corporate ID [id number] # Patient Acct [id number] # MR # [id number] Mental Health Unit Lead Psychologist Katie Jackson, Alcides Interpreting Physician Alissa Marx Referring Referring Physician Alissa Marx Nurse Practitioner Additional Comments REsults were reported to Dr. Marx's office 03/03/2021 @ 7620. Procedure Type of Study: Veins: Lower Extremities [...] ! ! + -----+---------+------ + --------- + [employer] Phone: VL DUP LOWER EXTREMITY VENOU S LEFTOrdered By: Unknown Result on 03-04-2021 [employer] VL DUP LOWER EXTREMITY VENOU S LEFTon 03-03-2021 Radiology Study observation (narrative) [employer] Phone: IR ANGIOGRAM CAROTID CEREBRA L BILATERALon [...] rotational angiography 5. Right common femoral artery (QUALITY ANALYST) angiogram Neurointerventionalist : Josesito Lomax MD, MS Dodge: Pantera Mcdonald MD PhD Ralf Christie MD [...] for TIA, hypertension, diabetes presented today to [facility] for diagnostic cerebral angiogram to assess dysplastic [...] with a micropuncture technique, and a 5 [place] intravascular sheath was placed within the right common femoral artery, establishing arterial access using Seldinger technique. 2000u of heparin IV was administered. A 5 [place] multipurpose catheter was then advanced over a [...] was interpreted (more content not included)... Normal [facility] HEMOGLOBIN AND HEMATOCRIT, B LOODOrdered By: King Monteiro on 09-04-2020 Hematocrit (Bld) [Volume fraction] 30.5 % Low 36.3 - 47.1 % [employer] Phone: Hemoglobin.gastrointes tinal spec 1 Ql (Stl) 9.7 g/dL Low 11.9 - 15.1 g/dL [employer] Phone: Interpretation and review of laboratory results Abnormal [employer] Phone: [employer] Phone: Hgb/Hcton 09-04-2020 Hematocrit (Bld) [Volume fraction] 30.5 % Low 36.3-47.1 [facility] Comment on above: Performed By: #### H H ####[facility] [address] [place] [address] Lab Director: Wellington Back MD Hemoglobin (Bld) [Mass/Vol] 9.7 g/dL Low 11.9-15.1 [facility] Comment on above: Performed By: #### H H ####[facility] CenterEverybody[facility] [id number] [place] [address] Lab Director: Wellington Back MD Hematocrit (Bld) [Volume fraction] 30.2 % Low 36.3-47.1 [facility] Comment on above: Performed By: #### H H ####[facility] CenterRocket RaiseTwfjlpcjgonf[address] [place] [address] Lab Director: Wellington Back MD Hemoglobin (Bld) [Mass/Vol] 9.4 g/dL Low 11.9-15.1 [facility] Comment on above: Performed By: #### H H ####[facility] [address] [place] [id number] Lab Director: Wellington Back MD Basic Metab w/rfx MGon 09-03 (cont.) Normal [facility] Comment on above: Result Comment: Aver age GFR for 70 or more years old: 75 mL/min/1.73sq m Chronic Kidney Disease: <60 mL/min/1.73sq m Kidney failure: <15 mL/min/1.73sq m eGFR calculated using average adult body mass. Additional eGFR calculator available at: http://www.GoCrossCampus/multiple_crcl_2011.htm Performed By: #### Micaela BUCK BMPX #### [facility] CenterRocket Raise [address] [place] [id number] Group Account Director: Wellington Back MD Anion gap [Moles/Vol] 12 mmol/L Normal 9-17 [facility] Comment on above: Performed By: #### Micaela BUCK BMPX #### [facility] CenterR[facility] Raise [address] [place] [id number] Group Account Director: Wellington Back MD Calcium [Mass/Vol] 8.2 mg/dL Low 8.6-10.4 [facility] Comment on above: Performed By: #### Micaela BUCK BMPX #### [facility] CenterR[facility] Raise [address] [place] [id number] Group Account Director: Wellington Back MD Chloride [Moles/Vol] 106 mmol/L Normal 98-107 [facility] Comment on above: Performed By: #### Micaela BUCK BMPX #### [facility] [address] [place] [address] Group Account Director: Wellington Back MD CO2 [Moles/Vol] 21 mmol/L Normal 20-31 [facility] Comment on above: Performed By: #### R HEBER BMPX #### [employer] [address] [place] [address] Group Account Director: Welilngton Back MD Creatinine [Mass/Vol] 0.50 mg/dL Normal 0.50-0.90 [facility] Comment on above: Performed By: #### R EJEC, BMPX #### [facility] [employer] [address] [place] [address] Group Account Director: Wellington Back MD GFR, Amer >60 Normal >60 [facility] Comment on above: Performed By: #### R EJEC, BMPX #### [facility] [employer] [address] [place] [address] Group Account Director: Wellington Back MD GFR,non Amer >60 Normal >60 [facility] Comment on above: Performed By: #### R EJEC, BMPX #### [facility] [employer] [address] [place] [address] Group Account Director: Wellington Back MD Glucose [Mass/Vol] 94 mg/dL Normal 70-99 [facility] Comment on above: Performed By: #### R EJEC, BMPX #### [facility] [employer] [address] [place] [address] Group Account Director: Wellington Back MD Potassium [Moles/Vol] 4.7 mmol/L Normal 3.7-5.3 [facility] Comment on above: Result Comment: SPEC IMEN SLIGHTLY HEMOLYZED, RESULTS MAY BE ADVERSELY AFFECTED. Performed By: #### R EJEC, BMPX #### [facility] [employer] [address] [place] [address] Group Account Director: Wellington Back MD Sodium [Moles/Vol] 139 mmol/L Normal 135-144 [facility] Comment on above: Performed By: #### R EJEC, BMPX #### [facility] [employer] [address] [place] [address] Group Account Director: Wellington Back MD Urea nitrogen [Mass/Vol] 12 mg/dL Normal 8-23 [facility] Comment on above: Performed By: #### R HEBER, BMPX #### [address] [address] Group Account Director: Wellington Back MD BUN/CRE Ratio NOT REPORTED Normal 9-20 [facility] Comment on above: Performed By: #### R HEBER, BMPX #### [address] [phone] Group Account Director: Wellnigton Back MD Staging: NOT REPORTED Normal [facility] Comment on above: Performed By: #### R HEBER, BMPX #### [address] [phone] Group Account Director: Wellington Back MD (cont.) Normal [facility] Comment on above: Result Comment: Aver age GFR for 70 or more years old: 75 mL/min/1.73sq m Chronic Kidney Disease: <60 mL/min/1.73sq m Kidney failure: <15 mL/min/1.73sq m eGFR calculated using average adult body mass. Additional eGFR calculator available at: http://www.Leapfactor.Keemotion/multiple_crcl_2012.htm Performed By: #### B MPX, PROL, TSHX, LIPR #### [address] [address] Group Account Director: Wellington Back MD Anion gap [Moles/Vol] 16 mmol/L Normal 9-17 [facility] Comment on above: Performed By: #### B MPX, PROL, TSHX, LIPR #### [address] [address] Group Account Director: Wellington Back MD Calcium [Mass/Vol] 8.7 mg/dL Normal 8.6-10.4 [facility] Comment on above: Performed By: #### B MPX, PROL, TSHX, LIPR #### [address] [address] Group Account Director: Wellington Back MD Chloride [Moles/Vol] 100 mmol/L Normal 98-107 [facility] Comment on above: Performed By: #### B MPX, PROL, TSHX, LIPR #### [address] [address] Group Account Director: Wellington Back MD CO2 [Moles/Vol] 20 mmol/L Normal 20-31 [facility] Comment on above: Performed By: #### B MPX, PROL, TSHX, LIPR #### [address] [address] Group Account Director: Wellington Back MD Creatinine [Mass/Vol] 0.70 mg/dL Normal 0.50-0.90 [facility] Comment on above: Performed By: #### B MPX, PROL, TSHX, LIPR #### [address] [address] Group Account Director: Wellington Back MD GFR, Amer >60 Normal >60 [facility] Comment on above: Performed By: #### B MPX, PROL, TSHX, LIPR #### [address] [address] Group Account Director: Wellington Back MD GFR,non Amer >60 Normal >60 [facility] Comment on above: Performed By: #### B MPX, PROL, TSHX, LIPR #### [address] [address] Group Account Director: Wellington Back MD Glucose [Mass/Vol] 109 mg/dL High 70-99 [facility] Comment on above: Performed By: #### B MPX, PROL, TSHX, LIPR #### [employer] [address] [place] [address] Group Account Director: Wellington Back MD Potassium [Moles/Vol] 4.5 mmol/L Normal 3.7-5.3 [facility] Comment on above: Performed By: #### B MPX, PROL, TSHX, LIPR #### [facility] [address] [place], [place] [phone] Group Account Director: Wellington Back MD Sodium [Moles/Vol] 136 mmol/L Normal 135-144 [facility] Comment on above: Performed By: #### B MPX, PROL, TSHX, LIPR #### [facility] Center[facility] [place], [place] [id number] Group Account Director: Wellington Back MD Urea nitrogen [Mass/Vol] 19 mg/dL Normal 8-23 [facility] Comment on above: Performed By: #### B MPX, PROL, TSHX, LIPR #### [facility] [address] [place] [phone] Group Account Director: Wellington Back MD Basic Metabolic Panel w/ Ref rima to MGOrdered By: Ralf Christie on 09-03-2020 Anion gap [Moles/Vol] 12 mmol/L 9 - 17 mmol/L [employer] Phone: Calcium [Mass/Vol] 8.2 mg/dL Low 8.6 - 10. 4 mg/dL [employer] Phone: Chloride [Moles/Vol] 106 mmol/L 98 - 10 7 mmol/L [employer] Phone: CO2 [Moles/Vol] 21 mmol/L 20 - 31 mmol/L [employer] Phone: Creatinine [Mass/Vol] 0.5 mg/dL 0.50 - 0.90 mg/dL [employer] Phone: GFR >60 >60 mL/min [employer] Phone: GFR Non- >60 >60 mL/min [employer] Phone: GFR/1.73 sq M.predicted MDRD (S/P/Bld) [Vol rate/Area] [employer] Phone: Comment on above: Average GFR for 70 o r more years old: 75 mL/min/1.73sq m Chronic Kidney Disease: <60 mL/min/1.73sq m Kidney failure: <15 mL/min/1.73sq m eGFR calculated using average adult body mass. Additional eGFR calculator available at: http://www.GoCrossCampus/multiple_crcl_2012.htm GFR/1.73 sq M.predicted MDRD (S/P/Bld) [Vol rate/Area] NOT REPORTED [employer] Phone: Glucose [Mass/Vol] 94 mg/dL 70 - 99 mg/dL [employer] Phone: Interpretation and review of laboratory results Abnormal [employer] Phone: Potassium [Moles/Vol] 4.7 mmol/L 3.7 - 5.3 mmol/L [employer] Phone: Comment on above: SPECIMEN SLIGHTLY HE MOLYZED, RESULTS MAY BE ADVERSELY AFFECTED. Sodium [Moles/Vol] 139 mmol/L 135 - 144 mmol/L [employer] Phone: Urea nitrogen (BldV) [Mass/Vol] 12 mg/dL 8 - 23 mg/dL [employer] Phone: Urea nitrogen/Creatinine (Bld) [Mass ratio] NOT REPORTED [employer] Phone: [employer] Phone: Basic Metabolic Panel w/ Ref rima to MGOrdered By: Suraj Peters on 09-03-2020 Anion gap [Moles/Vol] 16 mmol/L 9 - 17 mmol/L [employer] Phone: Calcium [Mass/Vol] 8.7 mg/dL 8.6 - 10. 4 mg/dL [employer] Phone: Chloride [Moles/Vol] 100 mmol/L 98 - 10 7 mmol/L [employer] Phone: CO2 [Moles/Vol] 20 mmol/L 20 - 31 mmol/L [employer] Phone: Creatinine [Mass/Vol] 0.7 mg/dL 0.50 - 0.90 mg/dL [employer] Phone: GFR >60 >60 mL/min [employer] Phone: GFR Non- >60 >60 mL/min [employer] Phone: GFR/1.73 sq M.predicted MDRD (S/P/Bld) [Vol rate/Area] [employer] Phone: Comment on above: Average GFR for 70 o r more years old: 75 mL/min/1.73sq m Chronic Kidney Disease: <60 mL/min/1.73sq m Kidney failure: <15 mL/min/1.73sq m eGFR calculated using average adult body mass. Additional eGFR calculator available at: http://www.GoCrossCampus/multiple_crcl_2012.htm GFR/1.73 sq M.predicted MDRD (S/P/Bld) [Vol rate/Area] NOT REPORTED [employer] Phone: Glucose [Mass/Vol] 109 mg/dL High 70 - 99 mg/dL [employer] Phone: Interpretation and review of laboratory results Abnormal [employer] Phone: Potassium [Moles/Vol] 4.5 mmol/L 3.7 - 5.3 mmol/L [employer] Phone: Sodium [Moles/Vol] 136 mmol/L 135 - 144 mmol/L [employer] Phone: Urea nitrogen (BldV) [Mass/Vol] 19 mg/dL 8 - 23 mg/dL [employer] Work Phone: Urea nitrogen/Creatinine (Bld) [Mass ratio] NOT REPORTED [employer] Work Phone: CBC WITH AUTO DIFFERENTIALOr dered By: King Monteiro on 09-03-2020 Absolute Eos # 0.05 [employer] [facility] Work Phone: Absolute Immature Granulocyte 0.03 [employer] Work Phone: Absolute Lymph # 1.01 Low [employer] [facility] Work Phone: Absolute Pope # 1.26 High [employer] [facility] Work Phone: Basophils (Bld) [#/Vol] 10*3/uL [employer] Phone: Basophils/100 WBC (Bld) 0 % 0 - 2 % [employer] Phone: Differential Type NOT REPORTED [employer] Phone: Eosinophils/100 WBC (Bld) 1 % 1 - 4 % [employer] Phone: Hematocrit (Bld) [Volume fraction] 30.2 % Low 36.3 - 47.1 % [employer] Phone: Hemoglobin.gastrointes tinal spec 1 Ql (Stl) 9.8 g/dL Low 11.9 - 15.1 g/dL [employer] Phone: Immature granulocytes/100 WBC (Bld) 0 % 0 [employer] Phone: Interpretation and review of laboratory results Abnormal [employer] Phone: Lymphocytes/100 WBC (Bld) 14 % Low 24 - 43 % [employer] Phone: MCH (RBC) [Entitic mass] 29.7 pg 25.2 - 33.5 pg [employer] Phone: MCHC (RBC) [Mass/Vol] 32.5 g/dL 28.4 - 34.8 g/dL [employer] Phone: MCV (RBC) [Entitic vol] 91.5 fL 82.6 - 102.9 fL [employer] Phone: Monocytes/100 WBC (Bld) 17 % High 3 - 12 % [employer] Phone: NRBC Automated 0.0 0.0 per 100 WBC [employer] Phone: Platelet distribution width (Bld) [Ratio] 14.8 % High 11.8 - 14.4 % [employer] Phone: Platelet mean volume (Bld) [Entitic vol] NOT REPORTED 8.1 - 13.5 fL [employer] Phone: Platelets (Bld) [#/Vol] See Reflexed IPF Result [employer] Phone: RBC (Bld) [#/Vol] 3.30 10*6/uL Low 3.95 - 5.1 1 m/uL [employer] Phone: RBC (Bld) [#/Vol] ANISOCYTOSIS PRESENT [employer] Phone: Segmented neutrophils/100 WBC (Bld) 67 % High 36 - 65 % [employer] Phone: Segs Absolute 4.86 [employer] Work Phone: WBC (Bld) [#/Vol] 7.2 10*3/uL [employer] Phone: WBC (Bld) [#/Vol] NOT REPORTED [employer] Phone: [employer] Phone: CBC with Diffon 09-03-2020 Abs. Basophil <0.03 Normal 0.00-0.20 [facility] Comment on above: Performed By: #### C DP, IPF ####[address] [phone] Director: Wellington Back MD Abs.Imm.Granulocyte 0.03 k/uL Normal 0.00-0.30 [facility] Comment on above: Performed By: #### C DP, IPF ####[address] [phone] Director: Wellington Back MD Abs.Neutrophil (Seg) 4.86 k/uL Normal 1.50-8.10 [facility] Comment on above: Performed By: #### C DP, IPF ####[place], [place] [address])[phone] Director: Wellington Back MD Basophils/100 WBC (Bld) 0 % Normal 0-2 [facility] Comment on above: Performed By: #### C DP, IPF ####[place], [place] [address])[phone] Director: Wellington Back MD Eosinophils (Bld) [#/Vol] 0.05 10*3/uL Normal 0.00-0.44 [facility] Comment on above: Performed By: #### C DP, IPF ####[place], [place] [address])[phone] Director: Wellington Back MD Eosinophils/100 WBC (Bld) 1 % Normal 1-4 [facility] Comment on above: Performed By: #### C DP, IPF ####[address] [address])[phone] Director: Wellington Back MD Erythrocyte distribution width (RBC) [Ratio] 14.8 % High 11.8-14.4 [facility] Comment on above: Performed By: #### C DP, IPF ####[address] [address])[phone] Director: Wellington Back MD Hematocrit (Bld) [Volume fraction] 30.2 % Low 36.3-47.1 [facility] Comment on above: Performed By: #### C DP, IPF ####[address] [address])[phone] Director: Wellington Back MD Hemoglobin (Bld) [Mass/Vol] 9.8 g/dL Low 11.9-15.1 [facility] Comment on above: Performed By: #### C DP, IPF ####[address] [address])[phone] Director: Wellington Back MD Immature granulocytes/100 WBC (Bld) 0 % Normal 0 [facility] Comment on above: Performed By: #### C DP, IPF ####[address] [address])[phone] Director: Wellington Back MD Lymphocytes (Bld) [#/Vol] 1.01 10*3/uL Low 1.10-3.70 [facility] Comment on above: Performed By: #### C DP, IPF ####[address] [address])[phone] Director: Wellington Back MD Lymphocytes/100 WBC (Bld) 14 % Low 24-43 [facility] Comment on above: Performed By: #### C DP, IPF ####[address] [address])[phone] Director: Wellington Back MD MCH (RBC) [Entitic mass] 29.7 pg Normal 25.2-33.5 [facility] Comment on above: Performed By: #### C DP, IPF ####[facility] [address] [place], [place] [address])[phone] Director: Wellington Back MD MCHC (RBC) [Mass/Vol] 32.5 g/dL Normal 28.4-34.8 [facility] Comment on above: Performed By: #### C DP, IPF ####[facility] [address] [place] [address] Lab Director: Wellington Back MD MCV (RBC) [Entitic vol] 91.5 fL Normal 82.6-102.9 [facility] Comment on above: Performed By: #### C DP, IPF ####[facility] [address] [place] [address] Lab Director: Wellington Back MD Monocytes (Bld) [#/Vol] 1.26 10*3/uL High 0.10-1.20 [facility] Comment on above: Performed By: #### C DP, IPF ####[address] [address]([facility])[phone] Director: Wellington Back MD Monocytes/100 WBC (Bld) 17 % High 3-12 [facility] Comment on above: Performed By: #### C DP, IPF ####[facility] [address] [place] [address] Lab Director: Wellington Back MD Neutrophil (Seg) 67 % High 36-65 [facility] Comment on above: Performed By: #### C DP, IPF ####[facility] [address] [place] [address] Lab Director: Wellington Back MD NRBC Automated 0.0 per 100 WBC Normal 0.0 [facility] Comment on above: Performed By: #### C DP, IPF ####[facility] [address] [place] [address] Lab Director: Wellington Back MD Platelet Count See Reflexed IPF Result Normal 138-453 [facility] Comment on above: Performed By: #### C DP, IPF ####[facility] [address] [place] [address] Lab Director: Wellington Back MD RBC (Bld) [#/Vol] 3.30 10*6/uL Low 3.95-5.11 [facility] Comment on above: Performed By: #### C DP, IPF ####[facility] [address] [place] [address] Lab Director: Wellington Back MD RBC morphology finding Nom (Bld) ANISOCYTOSIS PRESENT Normal [facility] Comment on above: Performed By: #### C DP, IPF ####[facility] [address] [place] [address] Lab Director: Wellington Back MD WBC (Bld) [#/Vol] 7.2 10*3/uL Normal 3.5-11.3 [facility] Comment on above: Performed By: #### C DP, IPF ####[facility] [address] [place] [address] Lab Director: Wellington Back MD Auto Diff Performed NOT REPORTED Normal [facility] Comment on above: Performed By: #### C DP, IPF ####[facility] [address] [place] [address] Lab Director: Wellington Back MD MPV NOT REPORTED Normal 8.1-13.5 [facility] Comment on above: Performed By: #### C DP, IPF ####[facility] [address] [place] [address] Lab Director: Wellington Back MD WBC Morphology NOT REPORTED Normal [facility] Comment on above: Performed By: #### C DP, IPF ####[facility] [address] [place] [address] Lab Director: Wellington Back MD CBC with DiffOrdered By: Jason Monteiro on 09-03-2020 Platelet Estimate NOT REPORTED Normal [facility] [employer] Phone: Comment on above: Performed By: #### C DP, IPF ####[facility] [place] [address] Lab Director: Wellington Back MD CT HEAD [...] Aguilar Alba MD 09/03/20 Final result Normal [facility] CT HEAD WO CONTRASTOrdered B y: Jayme Morton on 09-03-2020 No acute intracrania l hemorrhage identified. [facility] [employer] Work Phone: EXAMINATION: CT OF T HE [...] of the visualized skull or soft tissues. [employer] Phone: Jaquan, Mhpn Incoming Radiant Results From [email or web address] - 09/03/2020 1:06 PM EDT EXAMINATION: CT [...] tissues. IMPRESSION: No acute intracranial hemorrhage identified. [employer] Phone: [employer] Phone: HEMOGLOBIN AND HEMATOCRIT, B LOODOrdered By: King Monteiro on 09-03-2020 Hematocrit (Bld) [Volume fraction] 30.2 % Low 36.3 - 47.1 % [employer] Phone: Hemoglobin.gastrointes tinal spec 1 Ql (Stl) 9.4 g/dL Low 11.9 - 15.1 g/dL [employer] Phone: Interpretation and review of laboratory results Abnormal [employer] Phone: [employer] Phone: Hemoglobin A1Con 09-03-2020 Glucose [Mass/Vol] 131 mg/dL Normal [facility] Comment on above: Result Comment: The ADA and AACC recommend providing the estimated average glucose result to permit better patient understanding of their HBA1c result. Performed By: #### S STAR #### [facility] [address] [place] [address] Group Account Director: Malik Hart DO [facility] [address] [place] [address] Group Account Director: Wellington Back MD #### GLYHGB #### [address] [address] Group Account Director: Wellington Back MD HbA1c (Bld) [Mass fraction] 6.2 % High 4.0-6.0 [facility] Comment on above: Performed By: #### Marina GRAVES #### [facility] [address] [place] [address] Group Account Director: Malik Hart [address] [address] Group Account Director: Wellington Back MD #### GLYHGB #### [address] [address] Group Account Director: Wellington Back MD Hemoglobin [id number] By: Alena Metz on 09-03-2020 Glucose [Mass/Vol] 131 mg/dL [facility] Work Phone: Comment on above: The ADA and AACC rec ommend providing the estimated average glucose result to permit better patient understanding of their HBA1c result. HbA1c (Bld) [Mass fraction] 6.2 % High 4.0 - 6.0 % [facility] Work Phone: Interpretation and review of laboratory results Abnormal [employer] Work Phone: [facility] Work Phone: Immature Platelet FractionOr dered By: King Monteiro on 09-03-2020 Platelet, Fluorescence Platelet clumps present, count appears adequate. [employer] Phone: Comment on above: ORDERED BY LAB Platelet, Immature Fraction NOT REPORTED 1.1 - 10.3 % [employer] Phone: [employer] Phone: Lipid Profileon 09-03-2020 Cholesterol [Mass/Vol] 123 mg/dL Normal <200 [facility] Comment on above: Result Comment: Cholesterol Guidelines: <200 Desirable 200-240 Borderline >240 Undesirable Performed By: #### B MPX, PROL, TSHX, LIPR #### [facility] [address] [place] [address] [id number] Group Account Director: Wellington Back MD Cholesterol in HDL [Mass/Vol] 69 mg/dL Normal >40 [facility] Comment on above: Result Comment: HDL Guidelines: <40 Undesirable 40-59 Borderline >59 Desirable Performed By: #### B MPX, PROL, TSHX, LIPR #### [facility] [employer] [address] [place] [address] [id number] Group Account Director: Wellington Back MD Cholesterol in LDL [Mass/Vol] 40 mg/dL Normal 0-130 [facility] Comment on above: Result Comment: LDL Guidelines: <100 Desirable 100-129 Near to/above Desirable 130-159 Borderline >159 Undesirable Direct (measured) LDL and calculated LDL are not interchangeable tests. Performed By: #### B MPX, PROL, TSHX, LIPR #### [facility] [address] [place] [address] [phone] Group Account Director: Wellington Back MD Cholesterol.total/Chol esterol in HDL [Mass ratio] 1.8 {ratio} Normal <5 [facility] Comment on above: Performed By: #### B MPX, PROL, TSHX, LIPR #### [facility] [address] [place] [address] [id number] Group Account Director: Wellington Back MD Triglyceride [Mass/Vol] 70 mg/dL Normal <150 [facility] Comment on above: Result Comment: Triglyceride Guidelines: <150 Desirable 150-199 Borderline 200-499 High >499 Very high Based on AHA Guidelines for fasting triglyceride, November 2011. Performed By: #### B MPX, PROL, TSHX, LIPR #### [employer] [address] [place], [place] [phone] Group Account Director: Wellington Back MD Lipid panel - fastingOrdered By: Suraj Peters on 09-03-2020 Cholesterol [Mass/Vol] 123 mg/dL <200 [employer] Phone: Comment on above: Cholesterol Guidelines: <200 Desirable 200-240 Borderline >240 Undesirable Cholesterol in HDL [Mass/Vol] 69 mg/dL >40 [employer] Phone: Comment on above: HDL Guidelines: <40 Undesirable 40-59 Borderline >59 Desirable Cholesterol in LDL [Mass/Vol] 40 mg/dL 0 - 130 mg/dL [employer] Phone: Comment on above: LDL Guidelines: <100 Desirable 100-129 Near to/above Desirable 130-159 Borderline >159 Undesirable Direct (measured) LDL and calculated LDL are not interchangeable tests. Cholesterol in VLDL [Mass/Vol] NOT REPORTED 1 - 30 mg/dL [employer] Phone: Cholesterol.total/Chol esterol in HDL [Mass ratio] 1.8 {ratio} <5 [employer] Phone: Triglyceride [Mass/Vol] 70 mg/dL <150 [employer] Phone: Comment on above: Triglyceride Guidelines: <150 Desirable 150-199 Borderline 200-499 High >499 Very high Based on AHA Guidelines for fasting triglyceride, November 2011. [employer] Phone: No Panel InformationOrdered By: Suraj Peters on 09-03-2020 [employer] Phone: PLT, Immature Fract.on 09-03 Platelet, Fluoresc. Platelet clumps present, count appears adequate. Normal 138-453 [facility] Comment on above: Result Comment: ORDE RED BY LAB Performed By: #### C DP, IPF ####[facility] [id number] [place] [address] lab Director: Wellington Back MD PLT, Immature Fract. NOT REPORTED Normal 1.1-10.3 [facility] Comment on above: Performed By: #### C DP, IPF ####[facility] [id number] [place] [address] lab Director: Wellington Back MD PROLACTINOrdered By: Suraj ramirez on 09-03-2020 Prolactin 17.33 ug/L 4.79 - 23.30 ug/L [facility] Phone: Comment on above: The presence of macr oprolactin may cause interference in female patients with various endocrinological diseases or during . Prolactinon 09-03-2020 Prolactin 17.33 ug/L Normal 4.79-23.30 [facility] Comment on above: Result Comment: The presence of macroprolactin may cause interference in female patients with various endocrinological diseases or during . Performed By: #### B MPX, PROL, TSHX, LIPR #### [facility] [address] [place], [place] [id number] Group Account Director: Wellington Back MD SPECIMEN REJECTIONOrdered By : Ralf Christie on 09-03-2020 - NOT REPORTED [employer] Phone: Ordered Test CDP [employer] Phone: Reason for Rejection Unable to perform testing: Specimen clotted. [employer] Phone: Specimen source Nom (Unsp spec) .BLOOD [employer] Phone: [employer] Phone: Specimen Rejectionon 021 Reason for rejection Unable to perform testing: Specimen clotted. Normal [facility] Comment on above: Performed By: #### R EJEC, BMPX #### [address] [address] Group Account Director: Wellington Back MD Source of sample .BLOOD Normal [facility] Comment on above: Performed By: #### R EJEC, BMPX #### [address] [address] Group Account Director: Wellington Back MD Test ordered CDP [facility] Comment on above: Performed By: #### R EJEC, BMPX #### [address] [address] Group Account Director: Wellington Back MD ----- NOT REPORTED [facility] Comment on above: Performed By: #### R HEBER, BMPX #### [address] [address] Group Account Director: Wellington Back MD Stroke Panelon 09-03-2020 % CKMB 3.6 % High 0.0-3.0 [facility] Comment on above: Performed By: #### S STAR #### [facility] [address] [place] [address] Group Account Director: Malik Hart DO [address] [address] Group Account Director: Wellington Back MD #### GLYHGB #### [address] [address] Group Account Director: Wellington Back MD CK-MB,Quantitative 2.9 ng/mL Normal <5.4 [facility] Comment on above: Performed By: #### S STAR #### [facility] [address] [place] [address] Group Account Director: Malik Hart DO [facility] [address] [place] [address] Group Account Director: Wellington Back MD #### GLYHGB #### [facility] [address] [place] [address] Group Account Director: Wellington Back MD CKMB-Interpretation NORMAL ISOENZYME PATTERN Normal [facility] Comment on above: Performed By: #### S STAR #### [facility] [address] [place] [address] Group Account Director: Malik Hart DO [facility] [address] [place] [address] Group Account Director: Wellington Back MD #### GLYHGB #### [address] [address] Group Account Director: Wellington Back MD TSH w/reflex to FT4on 2020 TSH Qn 0.99 m[IU]/L Normal 0.30-5.00 [facility] Comment on above: Performed By: #### B MPX, PROL, TSHX, LIPR #### [address] [address] Group Account Director: Wellington Back MD TSH with ReflexOrdered By: Ej Peters on 09-03-2020 TSH Qn 0.99 m[IU]/L [employer] Phone: CHLORIDE (POC)Ordered By: Os imelda Lomax on 09-02-2020 Chloride [Moles/Vol] 103 mmol/L 98 - 10 7 mmol/L [employer] Phone: CTA HEAD NECK W CONTRASTon 0 [...] Aaron London MD 09/02/20 Final result Normal [facility] CTA HEAD NECK W CONTRASTOrde red By: [...] 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 [employer] Phone: EXAMINATION: CTA OF THE HEAD AND [...] fluid collection. The kevin-white differentiation is maintained. 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 [employer] Work Phone: [employer] Phone: Creatinine W/GFR Point of Ca reOrdered By: Kristina Lomax on 09-02-2020 Creatinine [Mass/Vol] 0.66 mg/dL 0.51 - 1.19 mg/dL [employer] Phone: GFR Non- >60 >60 mL/min [employer] Phone: GFR/1.73 sq M.predicted MDRD (S/P/Bld) [Vol rate/Area] mL/min/{1.73_m2} >60 mL/min [employer] Phone: GFR/1.73 sq M.predicted MDRD (S/P/Bld) [Vol rate/Area] [employer] Phone: Comment on above: Average GFR for 70 o r more years old: 75 mL/min/1.73sq m Chronic Kidney Disease: <60 mL/min/1.73sq m Kidney failure: <15 mL/min/1.73sq m eGFR calculated using average adult body mass. Additional eGFR calculator available at: http://www.GoCrossCampus/multiple_crcl_2012.htm EEG video monitoringOrdered By: Suraj Peters on [...] 10-20 electrode placement system, using a 32-channel [employer] headbox. All EEG and video information was acquired digitally, including the use of automated spike and seizure detection software to detect epileptiform activity. An event button was also available to be depressed during clinical events. RESULTS: In (more content not included)... [employer] Phone: [employer] Phone: Hemoglobin and hematocrit, b loodOrdered By: Kristina Lomax on 09-02-2020 Hematocrit (Bld) [Volume fraction] 35 % Low 36 - 46 % [employer] Phone: Hemoglobin (Bld) [Mass/Vol] 11.8 g/dL Low 12.0 - 16.0 g/dL [employer] Phone: Interpretation and review of laboratory results Abnormal [employer] Phone: Lipid Profileon 09-02-2020 Cholesterol,VLDL NOT REPORTED Normal 03-09 [facility] Comment on above: Performed By: #### B MPX, PROL, TSHX, LIPR #### [employer] [address] [place] [address] Group Account Director: Wellington Back MD MRI LIMITED BRAINon 09-03-19 [...] Kel Hennessy MD 09/02/20 Final result Normal [facility] MRI LIMITED BRAINOrdered By: Ralf Christie on 09-02-2020 No acute intracrania l abnormality. Findings were discussed with Dr. Mcdonald At 11:45 am on 09/02/2020. [employer] Phone: EXAMINATION: MRI OF THE BRAIN WITHOUT [...] The soft tissues demonstrate no acute abnormality. [employer] Phone: Jaquan, [facility] [[email or web address]] Incoming Radiant Results From [place] - 09/02/2020 12:44 PM EDT EXAMINATION: MRI [...] Dr. Mcdonald At 11:45 am on 09/02/2020. [employer] Phone: [employer] Phone: No Panel InformationOrdered By: Kristina Lomax on 09-02-2020 [employer] Phone: POC Glucose FingerstickOrder ed By: Kristina Lomax on 09-02-2020 Glucose [Mass/Vol] 73 mg/dL 65 - 105 mg/dL [employer] Phone: [employer] Work Phone: POCT GlucoseOrdered By: Bee Lomax on 09-02-2020 Glucose [Mass/Vol] 89 mg/dL 74 - 100 mg/dL [employer] Phone: POCT urea (BUN)Ordered By: Zurdo Lomax on 09-02-2020 Urea nitrogen [Mass/Vol] 22 mg/dL 8 - 26 mg/dL [employer] Phone: POTASSIUM (POC)Ordered By: Zurdo Lomax on 09-02-2020 Potassium [Moles/Vol] 3.8 mmol/L 3.5 - 4.5 mmol/L [employer] Phone: SODIUM (POC)Ordered By: Bee Lomax on 09-02-2020 Sodium [Moles/Vol] 138 mmol/L 138 - 146 mmol/L [employer] Phone: STROKE PANELOrdered By: Fabricio Metz on 09-02-2020 % CKMB 3.6 % High 0.0 - 3.0 % [employer] Work Phone: Absolute Eos # 0.00 [facility] Work Phone: Absolute Immature Granulocyte 0.00 [employer] Work Phone: Absolute Lymph # 0.83 Low [employer] Work Phone: Absolute Pope # 0.83 High [facility] Work Phone: Anion gap [Moles/Vol] 20 mmol/L High 9 - 17 mmol/L [employer] Work Phone: aPTT Coag (Bld) [Time] 21.8 s [facility] Phone: Comment on above: IV Heparin Therapy Range: 48.6-77.8 Basophils (Bld) [#/Vol] 0.00 10*3/uL [employer] Phone: Basophils/100 WBC (Bld) 0 % 0 - 2 % [employer] Phone: Calcium [Mass/Vol] 9.2 mg/dL 8.6 - 10. 4 mg/dL [employer] Phone: Chloride [Moles/Vol] 100 mmol/L 98 - 10 7 mmol/L [employer] Phone: CK [Catalytic activity/Vol] 81 U/L 26 - 192 U/L [employer] Phone: CK.MB [Mass/Vol] 2.9 ng/mL <5.4 [employer] Work Phone: CKMB Interpretation NORMAL ISOENZYME PATTERN [employer] Phone: CO2 [Moles/Vol] 16 mmol/L Low 20 - 31 mmol/L [employer] Phone: Creatinine [Mass/Vol] 0.63 mg/dL 0.50 - 0.90 mg/dL [employer] Phone: Differential Type NOT REPORTED [employer] Phone: Eosinophils/100 WBC (Bld) 0 % Low 1 - 4 % [employer] Phone: GFR >60 >60 mL/min [employer] Phone: GFR Non- >60 >60 mL/min [employer] Phone: GFR/1.73 sq M.predicted MDRD (S/P/Bld) [Vol rate/Area] [employer] Phone: Comment on above: Average GFR for 70 o r more years old: 75 mL/min/1.73sq m Chronic Kidney Disease: <60 mL/min/1.73sq m Kidney failure: <15 mL/min/1.73sq m eGFR calculated using average adult body mass. Additional eGFR calculator available at: http://www.GoCrossCampus/multiple_crcl_2012.htm GFR/1.73 sq M.predicted MDRD (S/P/Bld) [Vol rate/Area] NOT REPORTED [employer] Phone: Glucose [Mass/Vol] 110 mg/dL High 70 - 99 mg/dL [employer] Phone: Hematocrit (Bld) [Volume fraction] 35.8 % Low 36.3 - 47.1 % [employer] Phone: Hemoglobin.gastrointes tinal spec 1 Ql (Stl) 11.4 g/dL Low 11.9 - 15.1 g/dL [employer] Phone: Immature granulocytes/100 WBC (Bld) 0 % 0 [employer] Phone: INR Coag (Bld) [Relative time] 1.1 {INR} [employer] Phone: Comment on above: Therapeutic Range: Moderate Anticoagulant Intensity: INR = 2.0-3.0 High Anticoagulant Intensity: INR = 2.5-3.5 Interpretation and review of laboratory results Abnormal [employer] Phone: Lymphocytes/100 WBC (Bld) 7 % Low 24 - 44 % [employer] Phone: MCH (RBC) [Entitic mass] 29.8 pg 25.2 - 33.5 pg [employer] Phone: MCHC (RBC) [Mass/Vol] 31.8 g/dL 28.4 - 34.8 g/dL [employer] Phone: MCV (RBC) [Entitic vol] 93.7 fL 82.6 - 102.9 fL [employer] Phone: Monocytes/100 WBC (Bld) 7 % 1 - 7 % [employer] Phone: Morphology Maninder (Bld) [Interp] Normal [employer] Phone: Myoglobin [Mass/Vol] 59 ng/mL High 25 - 58 ng/mL [employer] Phone: NRBC Automated 0.0 0.0 per 100 WBC [employer] Phone: Platelet distribution width (Bld) [Ratio] 14.6 % High 11.8 - 14.4 % [employer] Phone: Platelet Estimate NOT REPORTED [employer] Phone: Platelet mean volume (Bld) [Entitic vol] 9.4 fL 8.1 - 13.5 fL [employer] Phone: Platelets (Bld) [#/Vol] 215 10*3/uL [employer] Work Phone: Potassium [Moles/Vol] 4.2 mmol/L 3.7 - 5.3 mmol/L [employer] Phone: PT Coag (PPP) [Time] 11.2 s [employer] Work Phone: RBC (Bld) [#/Vol] 3.82 10*6/uL Low 3.95 - 5.1 1 m/uL [employer] Phone: RBC (Bld) [#/Vol] NOT REPORTED [employer] Phone: Segmented neutrophils/100 WBC (Bld) 86 % High 36 - 66 % [employer] Work Phone: Segs Absolute 10.14 High [employer] Work Phone: Sodium [Moles/Vol] 136 mmol/L 135 - 144 mmol/L [employer] Phone: Troponin Interp NOT REPORTED [employer] Work Phone: Troponin T NOT REPORTED <0.03 ng/mL [facility] [employer] Work Phone: Troponin, High Sensitivity 20 ng/L High 0 - 14 ng/L [employer] Work Phone: Comment on above: High Sensitivity Troponin values cannot be compared with other Troponin methodologies. Patients with high levels of Biotin oral intake (i.e >5mg/day) may have falsely decreased Troponin levels. Samples collected within 8 hours of biotin intake may require additional information for diagnosis. Urea nitrogen (BldV) [Mass/Vol] 20 mg/dL 8 - 23 mg/dL [employer] Phone: Urea nitrogen/Creatinine (Bld) [Mass ratio] NOT REPORTED [employer] Phone: WBC (Bld) [#/Vol] 11.8 10*3/uL High [employer] Phone: WBC (Bld) [#/Vol] NOT REPORTED [employer] Phone: [employer] Phone: Stroke Panelon 09-02-2020 CK [Catalytic activity/Vol] 81 U/L Normal 26-192 [facility] Comment on above: Performed By: #### S STAR #### [facility] [address] [place] [address] Group Account Director: Malik Hart DO [employer] [address] [place], [place] [id number] Group Account Director: Wellington Back MD #### GLYHGB #### [employer] [address] [place], [place] [id number] Group Account Director: Wellington Back MD (cont.) Normal [facility] Comment on above: Result Comment: Aver age GFR for 70 or more years old: 75 mL/min/1.73sq m Chronic Kidney Disease: <60 mL/min/1.73sq m Kidney failure: <15 mL/min/1.73sq m eGFR calculated using average adult body mass. Additional eGFR calculator available at: http://www.Leapfactor.com/multiple_crcl_2012.htm Performed By: #### Marina GRAVES #### [facility] [address] [place] [address] Group Account Director: Malik Hart DO [address] [address] Group Account Director: Wellington Back MD #### GLYHGB #### [address] [address] Group Account Director: Wellington Back MD Anion gap [Moles/Vol] 20 mmol/L High 9-17 [facility] Comment on above: Performed By: #### Marina GRAVES #### [facility] [address] [place] [address] Group Account Director: Malik Hart DO [address] [address] Group Account Director: Wellington Back MD #### GLYHGB #### [address] [address] Group Account Director: Wellington Back MD Calcium [Mass/Vol] 9.2 mg/dL Normal 8.6-10.4 [facility] Comment on above: Performed By: #### Marina GRAVES #### [facility] [address] [place] [address] Group Account Director: Malik Hart DO [address] [address] Group Account Director: Wellington Back MD #### GLYHGB #### [address] [address] Group Account Director: Wellington Back MD Chloride [Moles/Vol] 100 mmol/L Normal 98-107 [facility] Comment on above: Performed By: #### S STAR #### [facility] [address] [place] [address] Group Account Director: Malik Hart DO [address] [address] Group Account Director: Wellington Back MD #### GLYHGB #### [address] [address] Group Account Director: Wellington Back MD CO2 [Moles/Vol] 16 mmol/L Low 20-31 [facility] Comment on above: Performed By: #### S STAR #### [facility] [address] [place] [address] Group Account Director: Malik Hart [address] [address] Group Account Director: Wellington Back MD #### GLYHGB #### [address] [address] Group Account Director: Wellington Back MD Creatinine [Mass/Vol] 0.63 mg/dL Normal 0.50-0.90 [facility] Comment on above: Performed By: #### Marina GRAVES #### [facility] [address] [place] [address] Group Account Director: Malik Hart DO [address] [address] Group Account Director: Wellington Back MD #### GLYHGB #### [address] [address] Group Account Director: Wellington Back MD GFR, Amer >60 Normal >60 [facility] Comment on above: Performed By: #### S STAR #### [facility] [address] [place] [address] Group Account Director: Malik Hart DO [address] [address] Group Account Director: Wellington Back MD #### GLYHGB #### [address] [address] Group Account Director: Wellington Back MD GFR,non Amer >60 Normal >60 [facility] Comment on above: Performed By: #### S STAR #### [facility] [address] [place] [address] Group Account Director: Malik Hart DO [address] [address] Group Account Director: Wellington Back MD #### GLYHGB #### [address] [address] Group Account Director: Wellington Back MD Glucose [Mass/Vol] 110 mg/dL High 70-99 [facility] Comment on above: Performed By: #### S STAR #### [facility] [address] [place] [address] Group Account Director: Malik Hart DO [address] [address] Group Account Director: Wellington Back MD #### GLYHGB #### [address] [address] Group Account Director: Wellington Back MD Myoglobin [Mass/Vol] 59 ng/mL High 25-58 [facility] Comment on above: Performed By: #### S NASIMKE #### [facility] [address] [place] [address] Group Account Director: Malik Hart DO [address] [address] Group Account Director: Wellington Back MD #### GLYHGB #### [address] [address] Group Account Director: Wellington Back MD Potassium [Moles/Vol] 4.2 mmol/L Normal 3.7-5.3 [facility] Comment on above: Performed By: #### S STAR #### [facility] [address] [place] [address] Group Account Director: Malik Hart DO [address] [address] Group Account Director: Wellington Back MD #### GLYHGB #### [address] [address] Group Account Director: Wellington Back MD Sodium [Moles/Vol] 136 mmol/L Normal 135-144 [facility] Comment on above: Performed By: #### S STAR #### [facility] [address] [place] [address] Group Account Director: Malik Hart DO [address] [address] Group Account Director: Wellington Back MD #### GLYHGB #### [address] [address] Group Account Director: Wellington Back MD Troponin, High Sens 20 ng/L High 0-14 [facility] Comment on above: Result Comment: High Sensitivity Troponin values cannot be compared with other Troponin methodologies. Patients with high levels of Biotin oral intake (i.e >5mg/day) may have falsely decreased Troponin levels. Samples collected within 8 hours of biotin intake may require additional information for diagnosis. Performed By: #### S STAR #### [facility] [address] [place] [address] Group Account Director: Malik Hart DO [address] [address] Group Account Director: Wellington Back MD #### GLYHGB #### [address] [address] Group Account Director: Wellington Back MD Urea nitrogen [Mass/Vol] 20 mg/dL Normal 8-23 [facility] Comment on above: Performed By: #### Marina GRAVES #### [facility] [address] [place] [address] Group Account Director: Malik Hart [address] [address] Group Account Director: Wellington Back MD #### GLYHGB #### [address] [address] Group Account Director: Wellington Back MD Abs. Basophil 0.00 k/uL Normal 0.0-0.2 [facility] Comment on above: Performed By: #### Marina GRAVES #### [facility] [address] [place] [address] Group Account Director: Malik Hart DO [address] [address] Group Account Director: Wellington Back MD #### GLYHGB #### [address] [address] Group Account Director: Wellington Back MD Abs.Imm.Granulocyte 0.00 k/uL Normal 0.00-0.30 [facility] Comment on above: Performed By: #### Marina GRAVES #### [facility] [address] [place] [address] Group Account Director: Malik Hart DO [address] [address] Group Account Director: Wellington Back MD #### GLYHGB #### [address] [address] Group Account Director: Wellington Back MD Abs.Neutrophil (Seg) 10.14 k/uL High 1.8-7.7 [facility] Comment on above: Performed By: #### Marina GRAVES #### [facility] [place] [address] Group Account Director: Malik Hart DO [address] [address] Group Account Director: Wellington Back MD #### GLYHGB #### [address] [address] Group Account Director: Wellington Back MD Basophils/100 WBC (Bld) 0 % Normal 0-2 [facility] Comment on above: Performed By: #### Marina GRAVES #### [facility] [address] [place] [address] Group Account Director: Malik Hart [address] [address] Group Account Director: Wellington Back MD #### GLYHGB #### [address] [address] Group Account Director: Wellington Back MD Eosinophils (Bld) [#/Vol] 0.00 10*3/uL Normal 0.0-0.4 [facility] Comment on above: Performed By: #### Marina GRAVES #### [facility] [address] [place] [address] Group Account Director: Malik Hart DO [address] [address] Group Account Director: Wellington Back MD #### GLYHGB #### [address] [address] Group Account Director: Wellington Back MD Eosinophils/100 WBC (Bld) 0 % Low 1-4 [facility] Comment on above: Performed By: #### S STAR #### [facility] [address] [place] [address] Group Account Director: Malik Hart [address] [address] Group Account Director: Wellington Back MD #### GLYHGB #### [address] [address] Group Account Director: Wellington Back MD Immature granulocytes/100 WBC (Bld) 0 % Normal 0 [facility] Comment on above: Performed By: #### S STAR #### [facility] [address] [place] [address] Group Account Director: Malik Hart DO [address] [address] Group Account Director: Wellington Back MD #### GLYHGB #### [address] [address] Group Account Director: Wellington Back MD Lymphocytes (Bld) [#/Vol] 0.83 10*3/uL Low 1.0-4.8 [facility] Comment on above: Performed By: #### S STAR #### [facility] [facility] [address] [place] [address] Group Account Director: Malik Hart [address] [address] Group Account Director: Wellington Back MD #### GLYHGB #### [address] [address] Group Account Director: Wellington Back MD Lymphocytes/100 WBC (Bld) 7 % Low 24-44 [facility] Comment on above: Performed By: #### S STAR #### [facility] [address] [place] [address] Group Account Director: Malik Hart [address] [address] Group Account Director: Wellington Back MD #### GLYHGB #### [address] [address] Group Account Director: Wellington Back MD Monocytes (Bld) [#/Vol] 0.83 10*3/uL High 0.1-0.8 [facility] Comment on above: Performed By: #### S STAR #### [facility] [address] [place] [address] Group Account Director: Malik Hart [address] [address] Group Account Director: Wellington Back MD #### GLYHGB #### [address] [address] Group Account Director: Wellington Back MD Monocytes/100 WBC (Bld) 7 % Normal 1-7 [facility] Comment on above: Performed By: #### Marina GRAVES #### [facility] [address] [place] [address] Group Account Director: Malik Hart [address] [address] Group Account Director: Wellington Back MD #### GLYHGB #### [address] [address] Group Account Director: Wellington Back MD Morphology Maninder (Bld) [Interp] Normal Normal [facility] Comment on above: Performed By: #### S TROKE #### [facility] [address] [place] [address] Group Account Director: Malik Hart DO [address] [address] Group Account Director: Wellington Back MD #### GLYHGB #### [address] [address] Group Account Director: Wellington Back MD Neutrophil (Seg) 86 % High 36-66 [facility] Comment on above: Performed By: #### S STAR #### [facility] [address] [place] [address] Group Account Director: Malik Hart DO [address] [address] Group Account Director: Wellington Back MD #### GLYHGB #### [address] [address] Group Account Director: Wellington Back MD aPTT Coag (Bld) [Time] 21.8 s Normal 20.5-30.5 [facility] Comment on above: Result Comment: IV Heparin Therapy Range: 48.6-77.8 Performed By: #### S STAR #### [facility] [address] [place] [address] Group Account Director: Malik Hart DO [address] [address] Group Account Director: Wellington Back MD #### GLYHGB #### [address] [address] Group Account Director: Wellington Back MD INR Coag (PPP) [Relative time] 1.1 {INR} Normal [facility] Comment on above: Result Comment: Therapeutic Range: Moderate Anticoagulant Intensity: INR = 2.0-3.0 High Anticoagulant Intensity: INR = 2.5-3.5 Performed By: #### S STAR #### [facility] [address] [place] [address] Group Account Director: Malik Hart [address] [address] Group Account Director: Wellington Back MD #### GLYHGB #### [address] [address] Group Account Director: Wellington Back MD PT Coag (PPP) [Time] 11.2 s Normal 9.1-12.3 [facility] Comment on above: Performed By: #### S STAR #### [facility] [address] [place] [address] Group Account Director: Malik Hart [address] [address] Group Account Director: Wellington Back MD #### GLYHGB #### [address] [address] Group Account Director: Wellington Back MD Erythrocyte distribution width (RBC) [Ratio] 14.6 % High 11.8-14.4 [facility] Comment on above: Performed By: #### S STAR #### [facility] [address] [place] [address] Group Account Director: Malik Hart [address] [address] Group Account Director: Wellington Back MD #### GLYHGB #### [address] [address] Group Account Director: Wellington Back MD Hematocrit (Bld) [Volume fraction] 35.8 % Low 36.3-47.1 [facility] Comment on above: Performed By: #### S STAR #### [facility] [address] [place] [address] Group Account Director: Malik Hart [address] [address] Group Account Director: Wellington Back MD #### GLYHGB #### [address] [address] Group Account Director: Wellington Back MD Hemoglobin (Bld) [Mass/Vol] 11.4 g/dL Low 11.9-15.1 [facility] Comment on above: Performed By: #### Marina GRAVES #### [facility] [address] [place] [address] Group Account Director: Malik Hart [address] [address] Group Account Director: Wellington Back MD #### GLYHGB #### [address] [address] Group Account Director: Wellington Back MD MCH (RBC) [Entitic mass] 29.8 pg Normal 25.2-33.5 [facility] Comment on above: Performed By: #### S STAR #### [facility] [address] [place] [address] Group Account Director: Malik Hart [address] [address] Group Account Director: Wellington Back MD #### GLYHGB #### [address] [address] Group Account Director: Wellington Back MD MCHC (RBC) [Mass/Vol] 31.8 g/dL Normal 28.4-34.8 [facility] Comment on above: Performed By: #### S STAR #### [facility] [address] [place] [address] Group Account Director: Malik Hart DO [address] [address] Group Account Director: Wellington Back MD #### GLYHGB #### [address] [address] Group Account Director: Wellington Back MD MCV (RBC) [Entitic vol] 93.7 fL Normal 82.6-102.9 [facility] Comment on above: Performed By: #### Marina GRAVES #### [facility] [address] [place] [address] Group Account Director: Malik Hart DO [address] [address] Group Account Director: Wellington Back MD #### GLYHGB #### [address] [address] Group Account Director: Wellington Back MD NRBC Automated 0.0 per 100 WBC Normal 0.0 [facility] Comment on above: Performed By: #### Marina GRAVES #### [facility] [address] [place] [address] Group Account Director: Malik Hart DO [address] [address] Group Account Director: Wellington Back MD #### GLYHGB #### [address] [address] Group Account Director: Wellington Back MD Platelet mean volume (Bld) [Entitic vol] 9.4 fL Normal 8.1-13.5 [facility] Comment on above: Performed By: #### S STAR #### [facility] [address] [place] [address] Group Account Director: Fanelly, Malik, [address] [address] Group Account Director: Wellington Back MD #### GLYHGB #### [address] [address] Group Account Director: Wellington Back MD Platelets (Bld) [#/Vol] 215 10*3/uL Normal 138-453 [facility] Comment on above: Performed By: #### Marina GRAVES #### [facility] [address] [place] [address] Group Account Director: Malik Hart [address] [address] Group Account Director: Wellington Back MD #### GLYHGB #### [address] [address] Group Account Director: Wellington Back MD RBC (Bld) [#/Vol] 3.82 10*6/uL Low 3.95-5.11 [facility] Comment on above: Performed By: #### Marina GRAVES #### [facility] [address] [place] [address] Group Account Director: Malik Hart DO [address] [address] Group Account Director: Wellington Back MD #### GLYHGB #### [address] [address] Group Account Director: Wellington Back MD WBC (Bld) [#/Vol] 11.8 10*3/uL High 3.5-11.3 [facility] Comment on above: Performed By: #### S STAR #### [facility] [address] [place] [address] Group Account Director: Malik Hart DO [address] [address] Group Account Director: Wellington Back MD #### GLYHGB #### [address] [address] Group Account Director: Wellington Back MD Auto Diff Performed NOT REPORTED Normal [facility] Comment on above: Performed By: #### S STAR #### [facility] [address] [place] [address] Group Account Director: Malik Hart [address] [address] Group Account Director: Wellington Back MD #### GLYHGB #### [address] [address] Group Account Director: Wellington Back MD BUN/CRE Ratio NOT REPORTED Normal -20 [facility] Comment on above: Performed By: #### S STAR #### [facility] [address] [place] [address] Group Account Director: Malik Hart [address] [address] Group Account Director: Wellington Back MD #### GLYHGB #### [address] [address] Group Account Director: Wellington Back MD Performed By: #### B MPX, PROL, TSHX, LIPR #### [address] [address] Group Account Director: Wellington Back MD Platelet Estimate NOT REPORTED Normal [facility] Comment on above: Performed By: #### S TROKE #### [facility] [address] [place] [address] Group Account Director: Malik Hart DO [address] [address] Group Account Director: Wellington Back MD #### GLYHGB #### [address] [address] Group Account Director: Wellington Back MD RBC morphology finding Nom (Bld) NOT REPORTED Normal [facility] Comment on above: Performed By: #### S STAR #### [facility] [address] [place] [address] Group Account Director: Malik Hart DO [address] [address] Group Account Director: Wellington Back MD #### GLYHGB #### [address] [address] Group Account Director: Wellington Back MD Staging: NOT REPORTED Normal [facility] Comment on above: Performed By: #### S STAR #### [facility] [address] [place] [address] Group Account Director: Malik Hart DO [address] [address] Group Account Director: Wellington Back MD #### GLYHGB #### [address] [address] Group Account Director: Wellington Back MD Performed By: #### B MPX, PROL, TSHX, LIPR #### [address] [address] Group Account Director: Wellington Back MD Troponin Interp. NOT REPORTED Normal [facility] Comment on above: Performed By: #### S STAR #### [facility] [address] [place] [address] Group Account Director: Malik Hart DO [address] [address] Group Account Director: Wellington Back MD #### GLYHGB #### [address] [place] [address] Group Account Director: Wellington Back MD Troponin T NOT REPORTED Normal <0.03 [facility] Comment on above: Performed By: #### S STAR #### [facility] [address] [place] [address] Group Account Director: Malik Hart DO [address] [address] Group Account Director: Wellington Back MD #### GLYHGB #### [address] [address] Group Account Director: Wellington Back MD WBC Morphology NOT REPORTED Normal [facility] Comment on above: Performed By: #### S STAR #### [facility] [address] [place] [address] Group Account Director: Malik Hart DO [facility] [address] [place] [address] Group Account Director: Wellington Back MD #### GLYHGB #### [address] [address] Group Account Director: Wellington Back MD Basic Metabolic Panel w/ Ref rima to MGOrdered By: Law Stratton on 06-02-2020 Anion gap [Moles/Vol] 9 mmol/L 9 - 17 mmol/L [employer] Phone: Calcium [Mass/Vol] 8.9 mg/dL 8.6 - 10. 4 mg/dL [employer] Phone: Chloride [Moles/Vol] 105 mmol/L 98 - 10 7 mmol/L [employer] Phone: CO2 [Moles/Vol] 24 mmol/L 20 - 31 mmol/L [employer] Phone: Creatinine [Mass/Vol] 0.61 mg/dL 0.50 - 0.90 mg/dL [employer] Work Phone: GFR >60 >60 mL/min [employer] Work Phone: GFR Non- >60 >60 mL/min [employer] Work Phone: Glucose [Mass/Vol] 113 mg/dL High 70 - 99 mg/dL [employer] Work Phone: Potassium [Moles/Vol] 4.2 mmol/L 3.7 - 5.3 mmol/L [employer] Work Phone: Sodium [Moles/Vol] 138 mmol/L 135 - 144 mmol/L [employer] Phone: Urea nitrogen (BldV) [Mass/Vol] 30 mg/dL High 8 - 23 mg/dL [employer] Work Phone: Urea nitrogen/Creatinine (Bld) [Mass ratio] 49 High [employer] Work Phone: CBC Auto DifferentialOrdered By: Law Stratton on 06-02-2020 Absolute Eos # 0.10 [employer] [facility] Work Phone: Absolute Immature Granulocyte 0.00 [employer] Work Phone: Absolute Lymph # 0.38 Low [employer] Work Phone: Absolute Pope # 0.48 [employer] Work Phone: Basophils (Bld) [#/Vol] 0.00 10*3/uL [employer] Work Phone: Basophils/100 WBC (Bld) 0 % 0 - 2 % [employer] Work Phone: Differential Type NOT REPORTED [employer] Work Phone: Eosinophils/100 WBC (Bld) 1 % 1 - 4 % [employer] Work Phone: Hematocrit (Bld) [Volume fraction] 36.5 % 36.3 - 47.1 % [employer] Phone: Hemoglobin.gastrointes tinal spec 1 Ql (Stl) 11.7 g/dL Low 11.9 - 15.1 g/dL [employer] Phone: Immature granulocytes/100 WBC (Bld) 0 % 0 [employer] Phone: Interpretation and review of laboratory results Abnormal [employer] Phone: Lymphocytes/100 WBC (Bld) 4 % Low 24 - 43 % [employer] Phone: MCH (RBC) [Entitic mass] 29.3 pg 25.2 - 33.5 pg [employer] Phone: MCHC (RBC) [Mass/Vol] 32.1 g/dL 28.4 - 34.8 g/dL [employer] Phone: MCV (RBC) [Entitic vol] 91.3 fL 82.6 - 102.9 fL [employer] Phone: Monocytes/100 WBC (Bld) 5 % 3 - 12 % [employer] Phone: Morphology Maninder (Bld) [Interp] Normal [employer] Phone: NRBC Automated 0.0 0.0 per 100 WBC [employer] Phone: Platelet distribution width (Bld) [Ratio] 13.7 % 11.8 - 14.4 % [employer] Phone: Platelet Estimate NOT REPORTED [employer] Phone: Platelet mean volume (Bld) [Entitic vol] 9.7 fL 8.1 - 13.5 fL [employer] Phone: Platelets (Bld) [#/Vol] 191 10*3/uL [employer] Phone: RBC (Bld) [#/Vol] 4.00 10*6/uL 3.95 - 5.1 1 m/uL [employer] Phone: RBC (Bld) [#/Vol] NOT REPORTED [employer] Phone: Segmented neutrophils/100 WBC (Bld) 90 % High 36 - 65 % [employer] Work Phone: Segs Absolute 8.64 High [employer] Work Phone: WBC (Bld) [#/Vol] 9.6 10*3/uL [employer] Phone: WBC (Bld) [#/Vol] NOT REPORTED [employer] Phone: COVID-19, RapidOrdered By: Michael Stratton on 06-02-2020 SARS-CoV-2 (COVID-19) RNA LADAN+probe Ql (Unsp spec) Not detected Not Detected [employer] Phone: Comment on above: Rapid NAAT: The [...] management decisions. Fact sheet for Healthcare Providers: https://www.fda.gov/media/964078/download Fact sheet for Patients: https://www.fda.gov/media/695923/download Methodology: Isothermal Nucleic Acid Amplification Specimen Description .NASOPHARYNGEAL SWAB [employer] Phone: CT Head WO ContrastOrdered B y: Law Stratton on 06-02-2020 No acute intracrania l abnormality. [employer] Phone: EXAMINATION: CT OF T HE HEAD [...] calcifications are seen compatible with atherosclerotic disease. [employer] Phone: [place]qu[place], [facility] [[email or web address]] Incoming Radiant Results From [email or web address] - 06/02/2020 3:27 PM EDT EXAMINATION: CT [...] atherosclerotic disease. IMPRESSION: No acute intracranial abnormality. [employer] Phone: Hepatic Function PanelOrdere d By: Law Stratton on 06-02-2020 Albumin [Mass/Vol] 3.8 g/dL 3.5 - 5.2 g/dL [employer] Phone: Albumin/Globulin [Mass ratio] 1.6 {ratio} [employer] Phone: ALP (Bld) [Catalytic activity/Vol] 75 U/L 35 - 104 U/L [employer] Phone: ALT [Catalytic activity/Vol] 17 U/L 5 - 33 U/L [employer] Phone: AST [Catalytic activity/Vol] 21 U/L <32 [employer] Phone: Bilirubin [Mass/Vol] 0.43 mg/dL 0.3 - 1 .2 mg/dL [employer] Phone: Bilirubin, Indirect CANNOT BE CALCULATED 0.00 - 1.00 mg/dL [employer] Phone: Bilirubin.indirect [Mass/Vol] mg/dL <0.31 mg/dL [employer] Phone: Free PSA/Total PSA [Mass fraction] 6.2 g/dL Low 6.4 - 8.3 g/dL [employer] Phone: Globulin NOT REPORTED 1.5 - 3.8 g/dL [employer] Phone: Laboratory - Chemistry and C hemistry - challengeOrdered By: Law Stratton on 06-02-2020 GFR/1.73 sq M.predicted MDRD (S/P/Bld) [Vol rate/Area] [employer] Phone: Comment on above: Average GFR for 70 o r more years old: 75 mL/min/1.73sq m Chronic Kidney Disease: <60 mL/min/1.73sq m Kidney failure: <15 mL/min/1.73sq m eGFR calculated using average adult body mass. Additional eGFR calculator available at: http://www.[employer].Keemotion/multiple_crcl_2012.htm Stage 1: Some kidney damage normal GFR Stage 2: Mild kidney damage GFR 60-89 Stage 3: Moderate kidney damage GFR 30-59 Stage 4: Severe kidney damage GFR 15-29 Stage 5: Severe kidney damage GFR <15 ESRD - chronic treatment by dialysis or transplant LipaseOrdered By: Sharla on 06-02-2020 Lipase [Catalytic activity/Vol] 25 U/L 13 - 60 U/L [employer] Phone: No Panel InformationOrdered By: Law Stratton on 06-02-2020 Interpretation and review of laboratory results Abnormal [employer] Phone: CBC auto differentialon 03-3 Basophils (Bld) [#/Vol] 0.03 10*3/uL [employer] Phone: Basophils/100 WBC (Bld) 1 % 0 - 2 % [employer] Phone: Differential Type NOT REPORTED [employer] Phone: Eosinophils (Bld) [#/Vol] 0.15 10*3/uL [employer] Phone: Eosinophils/100 WBC (Bld) 3 % 1 - 4 % [employer] Phone: Erythrocyte distribution width (RBC) [Ratio] 13.5 % 11.8 - 14.4 % [employer] Phone: Hematocrit (Bld) [Volume fraction] 36.7 % 36.3 - 47.1 % [employer] Phone: Hemoglobin (Bld) [Mass/Vol] 11.8 g/dL Low 11.9 - 15.1 g/dL [employer] Phone: Immature granulocytes (Bld) [#/Vol] 0 % 0 [employer] Phone: Immature granulocytes (Bld) [#/Vol] 10*3/uL [employer] Phone: Interpretation and review of laboratory results Abnormal [employer] Phone: Lymphocytes (Bld) [#/Vol] 0.98 10*3/uL Low [employer] Phone: Lymphocytes/100 WBC (Bld) 16 % Low 24 - 43 % [employer] Phone: MCH (RBC) [Entitic mass] 29.5 pg 25.2 - 33.5 pg [employer] Phone: MCHC (RBC) [Mass/Vol] 32.2 g/dL 28.4 - 34.8 g/dL [employer] Phone: MCV (RBC) [Entitic vol] 91.8 fL 82.6 - 102.9 fL [employer] Phone: Monocytes (Bld) [#/Vol] 0.69 10*3/uL [employer] Phone: Monocytes/100 WBC (Bld) 12 % 3 - 12 % [employer] Phone: Platelet mean volume (Bld) [Entitic vol] 9.7 fL 8.1 - 13.5 fL [employer] Phone: Platelets (Bld) [#/Vol] 212 10*3/uL [employer] Phone: Platelets (Bld) [#/Vol] NOT REPORTED [employer] Phone: RBC (Bld) [#/Vol] 4.00 10*6/uL 3.95 - 5.1 1 m/uL [employer] Phone: RBC morphology finding Nom (Bld) NOT REPORTED [employer] Phone: Segmented neutrophils/100 WBC (Bld) 68 % High 36 - 65 % [employer] Phone: Segs Absolute 4.13 [employer] Work Phone: WBC (Bld) [#/Vol] 6.0 10*3/uL [employer] Phone: WBC (Bld) [#/Vol] 0.0 10*3/uL 0.0 per 10 0 WBC [employer] Phone: WBC Morphology NOT REPORTED [employer] [facility] Work Phone: Comprehensive Metabolic Pane john 05-08-2020 Albumin [Mass/Vol] 4.3 g/dL 3.5 - 5.2 g/dL [employer] Phone: Albumin/Globulin [Mass ratio] 1.7 {ratio} [employer] Phone: ALP [Catalytic activity/Vol] 67 U/L 35 - 104 U/L [employer] Phone: ALT [Catalytic activity/Vol] 13 U/L 5 - 33 U/L [employer] Phone: Anion gap [Moles/Vol] 9 mmol/L 9 - 17 mmol/L [employer] Phone: AST [Catalytic activity/Vol] 19 U/L <32 [employer] Phone: Bilirubin Ql (U) 0.53 mg/dL 0.3 - 1.2 mg/dL [employer] Phone: Bun/Cre Ratio 25 High [employer] Work Phone: Calcium [Mass/Vol] 9.8 mg/dL 8.6 - 10. 4 mg/dL [employer] Phone: Chloride [Moles/Vol] 104 mmol/L 98 - 10 7 mmol/L [employer] Phone: CO2 [Moles/Vol] 25 mmol/L 20 - 31 mmol/L [employer] Phone: Creatinine [Mass/Vol] 0.6 mg/dL 0.50 - 0.90 mg/dL [employer] Phone: GFR >60 >60 mL/min [employer] Phone: GFR Non- >60 >60 mL/min [employer] Phone: Glucose [Mass/Vol] 94 mg/dL 70 - 99 mg/dL [employer] Phone: Interpretation and review of laboratory results Abnormal [employer] Phone: Potassium [Moles/Vol] 3.9 mmol/L 3.7 - 5.3 mmol/L [employer] Phone: Protein [Mass/Vol] 6.9 g/dL 6.4 - 8.3 g/dL [employer] Phone: Sodium [Moles/Vol] 138 mmol/L 135 - 144 mmol/L [employer] Phone: Urea nitrogen [Mass/Vol] 15 mg/dL 8 - 23 mg/dL [employer] Phone: Metabolic Panelon 05-08-2020 GFR/1.73 sq M predicted among non-blacks MDRD (S/P/Bld) [Vol rate/Area] [employer] Phone: Comment on above: Stage 1: Some [...] body mass. Additional eGFR calculator available at: http://www.[employer]ap[employer].Keemotion/multiple_crcl_2012.htm Troponinon 05-08-2020 Interpretation and review of laboratory results Abnormal [employer] Phone: Troponin I.cardiac [Mass/Vol] NOT REPORTED [employer] Phone: Troponin T.cardiac [Mass/Vol] NOT REPORTED <0.03 ng/mL [employer] Phone: Troponin, High Sensitivity 16 ng/L High 0 - 14 ng/L [employer] Phone: Comment on above: High Sensitivity Troponin values cannot be compared with other Troponin methodologies. Patients with high levels of Biotin oral intake (i.e >5mg/day) may have falsely decreased Troponin levels. Samples collected within 8 hours of biotin intake may require additional information for diagnosis. Interpretation and review of laboratory results Abnormal [employer] Phone: Troponin I.cardiac [Mass/Vol] NOT REPORTED [employer] Phone: Troponin T.cardiac [Mass/Vol] NOT REPORTED <0.03 ng/mL [employer] Phone: Troponin, High Sensitivity 17 ng/L High 0 - 14 ng/L [employer] Phone: Comment on above: High Sensitivity Troponin [...] 7 mmol/L Low 9 - 17 mmol/L [employer] Phone: Bun/Cre Ratio 31 High [employer] Work Phone: Calcium [Mass/Vol] 8.9 mg/dL 8.6 - 10. 4 mg/dL [employer] Phone: Chloride [Moles/Vol] 107 mmol/L 98 - 10 7 mmol/L [employer] Phone: CO2 [Moles/Vol] 26 mmol/L 20 - 31 mmol/L [employer] Phone: Creatinine [Mass/Vol] 0.72 mg/dL 0.50 - 0.90 mg/dL [employer] Phone: GFR >60 >60 mL/min [employer] Phone: GFR Non- >60 >60 mL/min [employer] Phone: Glucose [Mass/Vol] 96 mg/dL 70 - 99 mg/dL [employer] Phone: Interpretation and review of laboratory results Abnormal [employer] Phone: Potassium [Moles/Vol] 4.2 mmol/L 3.7 - 5.3 mmol/L [employer] Phone: Sodium [Moles/Vol] 140 mmol/L 135 - 144 mmol/L [employer] Phone: Urea nitrogen [Mass/Vol] 22 mg/dL 8 - 23 mg/dL [employer] Phone: CBCon 04-18-2020 Erythrocyte distribution width (RBC) [Ratio] 13.2 % 11.8 - 14.4 % [employer] Phone: Hematocrit (Bld) [Volume fraction] 34.5 % Low 36.3 - 47.1 % [employer] Phone: Hemoglobin (Bld) [Mass/Vol] 11.0 g/dL Low 11.9 - 15.1 g/dL [employer] Phone: Interpretation and review of laboratory results Abnormal [employer] Phone: MCH (RBC) [Entitic mass] 29.6 pg 25.2 - 33.5 pg [employer] Phone: MCHC (RBC) [Mass/Vol] 31.9 g/dL 28.4 - 34.8 g/dL [employer] Phone: MCV (RBC) [Entitic vol] 93.0 fL 82.6 - 102.9 fL [employer] Phone: Platelet mean volume (Bld) [Entitic vol] 10.0 fL 8.1 - 13.5 fL [employer] Phone: Platelets (Bld) [#/Vol] 192 10*3/uL [employer] Phone: RBC (Bld) [#/Vol] 3.71 10*6/uL Low 3.95 - 5.1 1 m/uL [employer] Phone: WBC (Bld) [#/Vol] 5.2 10*3/uL [employer] Phone: WBC (Bld) [#/Vol] 0.0 10*3/uL 0.0 per 10 0 WBC [employer] Phone: ECHOCARDIOGRAM LIMITEDon [facility] Transthoracic Echocardiography Report (TTE) Patient Name SPENCER Date of Study 04/18/2020 EVER Mckay Date of 1940 Gender Female Age 79 year(s) Race Room Number 0315 Height: 63 inch, 160.02 cm Corporate ID [id number] Weight: 163 pounds, 73.9 kg # Patient Acct [id number] BSA: 1.77 m^2 BMI: 28.87 # kg/m^2 MR # [id number] Mental Health Unit Lead Psychologist Rylee Verma Interpreting Physician Alissa Marx Fellow Referring Nurse Practitioner Interpreting Referring Physician Alissa Marx Fellow Type of Study TTE procedure:2D Echocardiogram, Bubble Study. Procedure Date Date: 04/18/2020 Start: 02:58 PM Study Location: [facility] History / Tech. Comments: TIA, Bubble study [...] 1.66 cm Calculated LVEF (%): 58.56 % [employer] Work Phone: Jaquan, pn [facility]coming [facility] 04/18/[facility] 6:12 PM EST [facility] Transthoracic Echocardiography Report (TTE) Patient Name SPENCER Date of Study 04/18/2020 EVER Mckay Date of 1940 Gender Female Age 79 year(s) Race Room Number 0315 Height: 63 inch, 160.02 cm Corporate ID [id number] Weight: 163 pounds, 73.9 kg # Patient Acct [id number] BSA: 1.77 m^2 BMI: 28.87 # kg/m^2 MR # [id number] Mental Health Unit Lead Psychologist Rylee Verma Interpreting Physician Alissa Marx Referring Nurse Practitioner Interpreting Referring Physician Alissa Marx Type of Study TTE procedure:2D Echocardiogram, Bubble Study. Procedure Date Date: 04/18/2020 Start: 02:58 PM Study Location: [facility] History / Tech. Comments: TIA, Bubble study [...] 1.66 cm Calculated LVEF (%): 58.56 % [employer] Phone: EKG 12 Leadon 04-18-2020 Atrial Rate 64 BPM [employer] Phone: P [place] 72 degrees [employer] Phone: P-R Interval 162 ms [employer] Phone: Q-T Interval 410 ms [employer] Phone: QRS Duration 102 ms [employer] Phone: QTc Calculation (Bazett) 422 ms [employer] Phone: R [place] 64 degrees [employer] Work Phone: T [place] 50 degrees [employer] Phone: Ventricular Rate 64 BPM [employer] Work Phone: Normal sinus rhythm Cannot rule out Anterior infarct (cited on or before 28-JUN-2009) Abnormal ECG When compared with ECG of 28-JUN-2009 03:41, No significant change was found Confirmed by MARCELINO CLIFFORD ([id number]) on 04/18/2020 8:42:07 AM [employer] Phone: Jaquan, Mh[employer] Incoming E kg Results From [employer] - 04/18/2020 8:42 AM EST Normal sinus rhythm Cannot rule out Anterior infarct (cited on or before 28-JUN-2009) Abnormal ECG When compared with ECG of 28-JUN-2009 03:41, No significant change was found Confirmed by MARCELINO CLIFFORD ([id number]) on 04/18/2020 8:42:07 AM [employer] Work Phone: Hemoglobin A1con 04-18-2020 Glucose [Mass/Vol] 114 mg/dL [employer] Phone: Comment on above: The ADA and AACC rec ommend providing the estimated average glucose result to permit better patient understanding of their HBA1c result. HbA1c (Bld) [Mass fraction] 5.6 % 4.0 - 6.0 % [employer] Phone: Lipid panel - fastingon 04-08 Cholesterol [Mass/Vol] 153 mg/dL <200 Me [employer] Phone: Comment on above: Cholesterol Guidelines: <200 Desirable 200-240 Borderline >240 Undesirable Cholesterol in HDL [Mass/Vol] 78 mg/dL >40 [employer] Phone: Comment on above: HDL Guidelines: <40 Undesirable 40-59 Borderline >59 Desirable Cholesterol in LDL [Mass/Vol] 65 mg/dL 0 - 130 mg/dL [employer] Phone: Comment on above: LDL Guidelines: <100 Desirable 100-129 Near to/above Desirable 130-159 Borderline >159 Undesirable Direct (measured) LDL and calculated LDL are not interchangeable tests. Cholesterol in VLDL [Mass/Vol] NOT REPORTED 1 - 30 mg/dL [employer] Phone: Cholesterol.total/Chol esterol in HDL [Mass ratio] 2 {ratio} <5 [employer] Phone: Triglyceride [Mass/Vol] 51 mg/dL <150 [employer] Phone: Comment on above: Triglyceride Guidelines: <150 Desirable 150-199 Borderline 200-499 High >499 Very high Based on AHA Guidelines for fasting triglyceride, November 2011. Metabolic Panelon 04-18-2020 GFR/1.73 sq M predicted among non-blacks MDRD (S/P/Bld) [Vol rate/Area] [employer] Phone: Comment on above: Average GFR for 70 o r more years old: 75 mL/min/1.73sq m Chronic Kidney Disease: <60 mL/min/1.73sq m Kidney failure: <15 mL/min/1.73sq m eGFR calculated using average adult body mass. Additional eGFR calculator available at: http://www.Leapfactor.Keemotion/multiple_crcl_2011.htm Stage 1: Some kidney damage normal GFR Stage 2: Mild kidney damage GFR 60-89 Stage 3: Moderate kidney damage GFR 30-59 Stage 4: Severe kidney damage GFR 15-29 Stage 5: Severe kidney damage GFR <15 ESRD - chronic treatment by dialysis or transplant APTTon 04-17-2020 aPTT Coag (Bld) [Time] 25.6 s Me [employer] Phone: Comment on above: IV Heparin Therapy Range: 62.0-94.0 CBC Auto Differentialon 03--2020 Basophils (Bld) [#/Vol] 0.03 10*3/uL [employer] Phone: Basophils/100 WBC (Bld) 1 % 0 - 2 % [employer] Phone: Differential Type NOT REPORTED [employer] Phone: Eosinophils (Bld) [#/Vol] 0.13 10*3/uL [employer] Phone: Eosinophils/100 WBC (Bld) 2 % 1 - 4 % [employer] Phone: Erythrocyte distribution width (RBC) [Ratio] 13.2 % 11.8 - 14.4 % [employer] Phone: Hematocrit (Bld) [Volume fraction] 37.6 % 36.3 - 47.1 % [employer] Phone: Hemoglobin (Bld) [Mass/Vol] 11.8 g/dL Low 11.9 - 15.1 g/dL [employer] Phone: Immature granulocytes (Bld) [#/Vol] 0 % 0 [employer] Phone: Immature granulocytes (Bld) [#/Vol] 10*3/uL [employer] Phone: Interpretation and review of laboratory results Abnormal [employer] Phone: Lymphocytes (Bld) [#/Vol] 1.41 10*3/uL [employer] Phone: Lymphocytes/100 WBC (Bld) 23 % Low 24 - 43 % [employer] Phone: MCH (RBC) [Entitic mass] 29.1 pg 25.2 - 33.5 pg [employer] Phone: MCHC (RBC) [Mass/Vol] 31.4 g/dL 28.4 - 34.8 g/dL [employer] Work Phone: MCV (RBC) [Entitic vol] 92.8 fL 82.6 - 102.9 fL [employer] Phone: Monocytes (Bld) [#/Vol] 0.69 10*3/uL [employer] Work Phone: Monocytes/100 WBC (Bld) 11 % 3 - 12 % [employer] Work Phone: Platelet mean volume (Bld) [Entitic vol] 10.8 fL 8.1 - 13.5 fL [employer] Phone: Platelets (Bld) [#/Vol] 210 10*3/uL [employer] Work Phone: Platelets (Bld) [#/Vol] NOT REPORTED [employer] Work Phone: RBC (Bld) [#/Vol] 4.05 10*6/uL 3.95 - 5.1 1 m/uL [employer] Work Phone: RBC morphology finding Nom (Bld) NOT REPORTED [employer] Phone: Segmented neutrophils/100 WBC (Bld) 63 % 36 - 65 % [employer] Work Phone: Segs Absolute 3.86 [employer] [facility] Work Phone: WBC (Bld) [#/Vol] 0.0 10*3/uL 0.0 per 10 0 WBC [employer] Work Phone: WBC (Bld) [#/Vol] 6.1 10*3/uL [employer] Work Phone: WBC Morphology NOT REPORTED [employer] [facility] Work Phone: CT HEAD WO CONTRASTon [...] of the visualized skull or soft tissues. [employer] Phone: No acute intracrania l abnormality. Results were sent to radiology results communication. [employer] Phone: Jaquan, [facility] [[email or web address]] Incoming Radiant Results From [employer] - 04/17/2020 3:42 PM EST EXAMINATION: CT [...] Results were sent to radiology results communication. [employer] Phone: CTA HEAD NECK W CONTRASTon 0 [...] fluid collection. The kevin-white differentiation is maintained. [employer] Work Phone: Jaquan, [facility] [[email or web address]] Incoming Radiant Results From [employer] - 04/17/2020 5:46 PM EST EXAMINATION: CTA [...] size. 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 [employer] Phone: No large vessel occlusion or hemodynamic stenosis. 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 [employer] Phone: Comprehensive Metabolic Pane john 04-17-2020 Albumin [Mass/Vol] 4 g/dL 3.5 - 5.2 g/dL [employer] Phone: Albumin/Globulin [Mass ratio] 1.4 {ratio} [employer] Phone: ALP [Catalytic activity/Vol] 55 U/L 35 - 104 U/L [employer] Phone: ALT [Catalytic activity/Vol] 13 U/L 5 - 33 U/L [employer] Phone: Anion gap [Moles/Vol] 12 mmol/L 9 - 17 mmol/L [employer] Phone: AST [Catalytic activity/Vol] 19 U/L <32 [employer] Phone: Bilirubin Ql (U) 0.39 mg/dL 0.3 - 1.2 mg/dL [employer] Phone: Bun/Cre Ratio 37 High [employer] Work Phone: Calcium [Mass/Vol] 9.4 mg/dL 8.6 - 10. 4 mg/dL [employer] Phone: Chloride [Moles/Vol] 103 mmol/L 98 - 10 7 mmol/L [employer] Phone: CO2 [Moles/Vol] 24 mmol/L 20 - 31 mmol/L [employer] Phone: Creatinine [Mass/Vol] 0.62 mg/dL 0.50 - 0.90 mg/dL [employer] Phone: GFR >60 >60 mL/min [employer] Phone: GFR Non- >60 >60 mL/min [employer] Phone: Glucose [Mass/Vol] 92 mg/dL 70 - 99 mg/dL [employer] Phone: Interpretation and review of laboratory results Abnormal [employer] Phone: Potassium [Moles/Vol] 3.7 mmol/L 3.7 - 5.3 mmol/L [employer] Phone: Protein [Mass/Vol] 6.9 g/dL 6.4 - 8.3 g/dL [employer] Phone: Sodium [Moles/Vol] 139 mmol/L 135 - 144 mmol/L [employer] Phone: Urea nitrogen [Mass/Vol] 23 mg/dL 8 - 23 mg/dL [employer] Phone: Glucose, Whole Bloodon 04-17 Glucose [Mass/Vol] 89 mg/dL 74 - 100 mg/dL [employer] Phone: Glucose [Mass/Vol] 68 mg/dL Low 74 - 100 mg/dL [employer] Phone: Interpretation and review of laboratory results Abnormal [employer] Phone: MRI BRAIN WO CONTRASTon 04-08 EXAMINATION: [...] The soft tissues demonstrate no acute abnormality. [employer] Phone: Ja[employer]an, [employer] Incoming Radiant Results From [employer] - 04/17/2020 5:13 PM EST EXAMINATION: MRI [...] parenchymal volume loss. Minimal chronic microvascular disease. [employer] Phone: No acute intracrania l abnormality. Minimal parenchymal volume loss. Minimal chronic microvascular disease. [employer] Phone: Metabolic Panelon 04-17-2020 GFR/1.73 sq M predicted among non-blacks MDRD (S/P/Bld) [Vol rate/Area] [employer] Phone: Comment on above: Average GFR for 70 o r more years old: 75 mL/min/1.73sq m Chronic Kidney Disease: <60 mL/min/1.73sq m Kidney failure: <15 mL/min/1.73sq m eGFR calculated using average adult body mass. Additional eGFR calculator available at: http://www.Leapfactor.Keemotion/multiple_crcl_2012.htm Stage 1: Some kidney damage normal GFR Stage 2: Mild kidney damage GFR 60-89 Stage 3: Moderate kidney damage GFR 30-59 Stage 4: Severe kidney damage GFR 15-29 Stage 5: Severe kidney damage GFR <15 ESRD - chronic treatment by dialysis or transplant POCT Glucoseon 04-17-2020 Glucose [Mass/Vol] 68 mg/dL [employer] Phone: Interpretation and review of laboratory results Normal [employer] Phone: QC OK? ok [employer] Phone: Protime-INRon 04-17-2020 INR Coag (PPP) [Relative time] 0.9 {INR} [employer] Phone: Comment on above: Non-therapeutic Range: INR = 0.9-1.2 Therapeutic Range: Moderate Anticoagulant Intensity: INR = 2.0-3.0 High Anticoagulant Intensity: INR = 2.5-3.5 PT Coag (PPP) [Time] 12.4 s [employer] Phone: Troponinon 04-17-2020 Interpretation and review of laboratory results Abnormal [employer] Phone: Troponin I.cardiac [Mass/Vol] NOT REPORTED [employer] Phone: Troponin T.cardiac [Mass/Vol] NOT REPORTED <0.03 ng/mL [employer] Phone: Troponin, High Sensitivity 17 ng/L High 0 - 14 ng/L [employer] Phone: Comment on above: High Sensitivity Troponin values cannot be compared with other Troponin methodologies. Patients with high levels of Biotin oral intake (i.e >5mg/day) may have falsely decreased Troponin levels. Samples collected within 8 hours of biotin intake may require additional information for diagnosis. Urinalysis with [employer] n 04-17-2020 Amorphous, UA NOT REPORTED None [employer] Work Phone: Bacteria, UA TRACE Abnormal None [employer] Phone: Bilirubin Urine Negative NEGATIVE [employer] Work Phone: Casts UA NOT REPORTED /LPF [employer] Phone: Color, UA YELLOW YELLOW [employer] Phone: Crystals, UA NOT REPORTED None /HPF [employer] [facility] Work Phone: Epithelial Cells UA 0 TO 2 [employer] Work Phone: Glucose, Ur Negative NEGATIVE [employer] Phone: Interpretation and review of laboratory results Abnormal [facility] [employer] Work Phone: Ketones Ql (U) Negative NEGATIVE [facility] Work Phone: Leukocyte esterase Test strip Ql (U) Negative NEGATIVE [facility] [employer] Work Phone: Mucus, UA TRACE Abnormal None [facility] [employer] Work Phone: Nitrite, Urine Negative NEGATIVE [facility] Work Phone: Other Observations UA NOT REPORTED NOT REQ. M [facility] [employer] Work Phone: pH, UA 6.5 [facility] [employer] Work Phone: Protein (U) [Mass/Vol] Negative NEGATIVE [facility] Work Phone: RBC (U) [#/Vol] None [facility] Work Phone: Renal Epithelial, UA NOT REPORTED 0 /HPF [facility] [employer] Work Phone: Specific [place], UA <1.005 Low [facility] [employer] Work Phone: Trichomonas, UA NOT REPORTED None [facility] [employer] Work Phone: Turbidity UA CLEAR CLEAR [facility] [employer] Work Phone: Urinalysis Comments NOT REPORTED [facility] [employer] Work Phone: Urine Hgb Negative NEGATIVE [facility] [employer] Work Phone: Urobilinogen, Urine Normal Normal [facility] [employer] Work Phone: WBC, UA None [facility] [employer] Work Phone: Yeast, UA NOT REPORTED None [facility] [employer] Work Phone: - [facility] [employer] Work Phone: Urine Drug Screenon 04-18-19 21 Amphetamine Screen, Ur Negative NEGATIVE [facility] [employer] Work Phone: Barbiturate Screen, Ur Negative NEGATIVE [facility] Work Phone: Benzodiazepine Screen, Urine Negative NEGATIVE [facility] Work Phone: Buprenorphine Urine Negative NEGATIVE [facility] Work Phone: Cannabinoid Scrn, Ur Negative NEGATIVE [facility] Work Phone: Cocaine Metabolite, Urine Negative NEGATIVE [facility] Work Phone: MDMA, Urine NOT REPORTED [facility]GATIVE [facility] Work Phone: Methadone Screen, Urine Negative NEGATIVE [facility] Work Phone: Methamphetamine, Urine Negative NEGATIVE [facility] Work Phone: Opiates, Urine Negative NEGATIVE [facility] Work Phone: Oxycodone Screen, Ur Negative NEGATIVE [facility] Work Phone: Phencyclidine, Urine Negative NEGATIVE [facility] Work Phone: Propoxyphene, Urine Negative NEGATIVE [facility] Work Phone: Test Information NOT REPORTED [facility] Work Phone: Tricyclic Antidepressants, Urine Negative NEGATIVE [facility] Work Phone: Comment on above: Drug screen results are to be used for medical purposes only. All positive results are unconfirmed. Testing for employment or legal uses should be sent to a reference laboratory for confirmation. Vital Signs Date Time Vital Sign Value Performing Clinician Faci lity 08-18-2024 05:02-0400 Diastolic blood pressure 50 mm[Hg] Shabnam Baxter MD Work Phone: [facility] [employer] 08-18-2024 05:02-0400 Heart rate 60 /min Shabnam Baxter MD Work Phone: [facility] [employer] 08-18-2024 05:02-0400 Respiratory rate 16 /min Shabnam Baxter MD Work Phone: [facility] [employer] 08-18-2024 05:02-0400 SaO2% (BldA) [Mass fraction] 98 % Shabnam Baxter MD Work Phone: [facility] [employer] 08-18-2024 05:02-0400 Systolic blood pressure 154 mm[Hg] Shabnam Baxter MD Work Phone: [facility] [employer] 08-18-2024 01:05-0400 Body mass index (BMI) [Ratio] 32.61 kg/m2 Shabnam Baxter MD Work Phone: [facility] [employer] 08-18-2024 01:05-0400 Body temperature 97.9 [degF] Shabnam Baxter MD Work Phone: [facility] [employer] 08-18-2024 01:05-0400 Body weight 86.18 kg Shabnam Baxter MD Work Phone: [facility] [employer] 07-14-2024 06:30-0400 Body temperature 97.39 [degF] Levi Dorsey MD Work Phone: [facility] [employer] 07-14-2024 06:30-0400 Diastolic blood pressure 55 mm[Hg] Levi Dorsey MD Work Phone: [facility] [employer] 07-14-2024 06:30-0400 Heart rate 64 /min Levi Dorsey MD Work Phone: [facility] [employer] 07-14-2024 06:30-0400 Respiratory rate 18 /min Levi Dorsey MD Work Phone: [facility] [employer] 07-14-2024 06:30-0400 SaO2% (BldA) [Mass fraction] 96 % Levi Dorsey MD Work Phone: [facility] [employer] 07-14-2024 06:30-0400 Systolic blood pressure 151 mm[Hg] Levi Dorsey MD Work Phone: [facility] [employer] 07-14-2024 04:10-0400 Body mass index (BMI) [Ratio] 31.5 kg/m2 Levi Dorsey MD Work Phone: [facility] [employer] 07-14-2024 04:10-0400 Body weight 85.87 kg Levi Dorsey MD Work Phone: [facility] [employer] 07-12-2024 07:56-0400 Body height 165.1 cm Levi Dorsey MD Work Phone: [facility] [employer] 03-26-2024 18:12-0500 Diastolic blood pressure 71 mm[Hg] Shabnam Baxter MD Work Phone: [facility] [employer] 03-26-2024 18:12-0500 Heart rate 70 /min Shabnam Baxter MD Work Phone: [facility] [employer] 03-26-2024 18:12-0500 Respiratory rate 14 /min Shabnam Baxter MD Work Phone: [facility] [employer] 03-26-2024 18:12-0500 SaO2% (BldA) [Mass fraction] 99 % Shabnam Baxter MD Work Phone: [facility] [employer] 03-26-2024 18:12-0500 Systolic blood pressure 183 mm[Hg] Shabnam Baxter MD Work Phone: [facility] [employer] 03-26-2024 15:54-0500 Body temperature 97.39 [degF] Shabnam Baxter MD Work Phone: [facility] [employer] 01-21-2024 14:44-0500 Body temperature 97.5 [degF] Shabnam Baxter MD Work Phone: [facility] [employer] 01-21-2024 14:44-0500 Diastolic blood pressure 63 mm[Hg] Shabnam Baxter MD Work Phone: [facility] [employer] 01-21-2024 14:44-0500 Heart rate 79 /min Shabnam Baxter MD Work Phone: [facility] [employer] 01-21-2024 14:44-0500 Respiratory rate 16 /min Shabnam Baxter MD Work Phone: [facility] [employer] 01-21-2024 14:44-0500 SaO2% (BldA) [Mass fraction] 99 % Shabnam Baxter MD Work Phone: [facility] [employer] 01-21-2024 14:44-0500 Systolic blood pressure 148 mm[Hg] Shabnam Baxter MD Work Phone: [facility] [employer] 10-21-2021 19:45-0400 Diastolic blood pressure 62 mm[Hg] Eliecer Burris MD [facility] [employer] 10-21-2021 19:45-0400 Heart rate 56 /min Eliecer Burris MD [facility] [employer] [employer] 10-21-2021 19:45-0400 Respiratory rate 16 /min Eliecer Burris MD [facility] [employer] 10-21-2021 19:45-0400 SaO2% (BldA) [Mass fraction] 98 % Eliecer Burris MD [facility] [employer] 10-21-2021 19:45-0400 Systolic blood pressure 176 mm[Hg] Eliecer Burris MD [facility] [employer] 10-21-2021 17:49-0400 Body mass index (BMI) [Ratio] 27.46 kg/m2 Eliecer Burris MD [facility] [employer] 10-21-2021 17:49-0400 Body weight 74.84 kg Eliecer Burris MD [facility] [employer] 10-05-2021 16:12-0400 Diastolic blood pressure 58 mm[Hg] Eliecer Burris MD [facility] [employer] 10-05-2021 16:12-0400 Heart rate 50 /min Eliecer Burris MD [facility] 10-05-2021 16:12-0400 Respiratory rate 11 /min Eliecer Burris MD [facility] [employer] 10-05-2021 16:12-0400 SaO2% (BldA) [Mass fraction] 100 % Eliecer Burris MD [facility] 10-05-2021 16:12-0400 Systolic blood pressure 145 mm[Hg] Eliecer Burris MD [facility] 10-05-2021 14:16-0400 Body height 165.1 cm Eliecer Burris MD [facility] 10-05-2021 14:16-0400 Body mass index (BMI) [Ratio] 24.96 kg/m2 Eliecer Burris MD [facility] 10-05-2021 14:16-0400 Body temperature 97.5 [degF] Eliecer Burris MD [facility] 10-05-2021 14:16-0400 Body weight 68.04 kg Eliecer Burris MD [facility] [employer] 09-04-2020 13:00-0400 Body temperature 97.7 [degF] Vernon Patino MD Work Phone: [employer] Work Phone: 09-04-2020 13:00-0400 Diastolic blood pressure 49 mm[Hg] Vernon Patino MD Work Phone: [employer] Work Phone: 09-04-2020 13:00-0400 Heart rate 59 /min Vernon Patino MD Work Phone: [employer] Work Phone: 09-04-2020 13:00-0400 Respiratory rate 16 /min Vernon Patino MD Work Phone: [employer] Work Phone: 09-04-2020 13:00-0400 SaO2% (BldA) [Mass fraction] 98 % Vernon Patino MD Work Phone: [employer] Work Phone: 09-04-2020 13:00-0400 Systolic blood pressure 129 mm[Hg] Vernon Patino MD Work Phone: [employer] Work Phone: 09-03-2020 11:30-0400 Body height 165.1 cm Vernon Patino MD Work Phone: [employer] Work Phone: 09-02-2020 13:45-0400 Body mass index (BMI) [Ratio] 26.96 kg/m2 Vernon Patino MD Work Phone: [employer] Work Phone: 09-02-2020 13:45-0400 Body weight 73.48 kg Vernon Patino MD Work Phone: [employer] Work Phone: 09-02-2020 13:15-0400 Diastolic blood pressure 68 mm[Hg] Acosta Mendoza MD Work Phone: [employer] Work Phone: 09-02-2020 13:15-0400 Heart rate 84 /min Acosta Mendoza MD Work Phone: [employer] Work Phone: 09-02-2020 13:15-0400 Respiratory rate 14 /min Acosta Mendoza MD Work Phone: [employer] Work Phone: 09-02-2020 13:15-0400 SaO2% (BldA) [Mass fraction] 95 % Acosta Mendoza MD Work Phone: [employer] Work Phone: 09-02-2020 13:15-0400 Systolic blood pressure 141 mm[Hg] Acosta Mendoza MD Work Phone: [employer] Work Phone: 09-02-2020 07:49-0400 Body height 165.1 cm Acosta Mendoza MD Work Phone: [employer] Work Phone: 09-02-2020 07:28-0400 Body mass index (BMI) [Ratio] 25.63 kg/m2 Acosta Mendoza MD Work Phone: [employer] Work Phone: 09-02-2020 07:28-0400 Body weight 69.85 kg Acosta Mendoza MD Work Phone: [employer] Work Phone: 09-02-2020 07:07-0400 Body temperature 97.59 [degF] Acosta Mendoza MD Work Phone: [employer] Work Phone: 06-02-2020 17:16-0400 Diastolic blood pressure 62 mm[Hg] Law Andes DO Work Phone: [employer] Work Phone: 06-02-2020 17:16-0400 Heart rate 66 /min Law Andes DO Work Phone: [employer] Work Phone: 06-02-2020 17:16-0400 SaO2% (BldA) [Mass fraction] 96 % Law Andes DO Work Phone: [employer] Work Phone: 06-02-2020 17:16-0400 Systolic blood pressure 139 mm[Hg] Law Andes DO Work Phone: [employer] Work Phone: 06-02-2020 14:07-0400 Body mass index (BMI) [Ratio] 28.32 kg/m2 Law Andes DO Work Phone: [employer] Work Phone: 06-02-2020 14:07-0400 Body temperature 98.29 [degF] Law Andes DO Work Phone: [employer] Work Phone: 06-02-2020 14:07-0400 Body weight 74.84 kg Law Andes DO Work Phone: [employer] Work Phone: 06-02-2020 14:07-0400 Respiratory rate 14 /min Law Andes DO Work Phone: [employer] Work Phone: 05-08-2020 21:30-0400 BP Diastolic 72 mm[Hg] Patrick [employer] Work Phone: 05-08-2020 21:30-0400 BP Systolic 166 mm[Hg] Patrick Gregoriou [employer] Work Phone: 05-08-2020 21:30-0400 Pulse Oximetry 100 % Patrick Crismaru [facility] Work Phone: 05-08-2020 18:16-0400 Pulse (Heart Rate) 72 /min Patrick Pandya [facility] Work Phone: 05-08-2020 18:16-0400 Respiratory Rate 18 /min [facility] 05-08-2020 18:14-0400 Body Temperature 96.3 [degF] Patrick Pandya [facility] Work Phone: 04-19-2020 11:30-0500 BP Diastolic 57 mm[Hg] Dwight Duffy [facility] Work Phone: 04-19-2020 11:30-0500 BP Systolic 125 mm[Hg] Dwight Duffy [facility] Work Phone: 04-19-2020 11:30-0500 Pulse (Heart Rate) 68 /min Dwight Villalba [facility] Work Phone: 04-19-2020 11:30-0500 Respiratory Rate 16 /min Dwight Villalba [facility] Work Phone: 04-19-2020 10:03-0500 Pulse Oximetry 96 % Dwight Duffy [facility] Work Phone: 04-19-2020 07:46-0500 BMI (Body Mass Index) 27.12 kg/m2 Dwight Duffy [facility] Work Phone: 04-19-2020 07:46-0500 Body Temperature 97.2 [degF] Dwight Villalba [facility] Work Phone: 04-19-2020 07:46-0500 Body weight 71.67 kg Dwight Duffy [facility] Work Phone: 04-19-2020 07:46-0500 Height 162.6 cm Dwight Duffy [facility] Work Phone: Encounters Encounter Date Encounter Type Care Provider Facility Start: 09-18-2024 End: 09-18-2024 hari Sparrow MD Facility: [facility] Start: 08-18-2024 End: 08-18-2024 Emergency department patient visit Shabnam Baxter MD Work Phone: [facility] Emergency Department Comment on above: General weakness (Pr imary Dx); Neck strain, initial encounter Start: 07-26-2024 End: 07-28-2024 [facility] Start: 07-26-2024 End: 07-28-2024 Subsequent hospital visit by physician Florencia Kraus Dr Room 2 [facility] Comment on above: Lower extremity mehdi a; Lightheaded; Dizziness; History of TIA (transient ischemic attack); Cerebral arterial aneurysm; Essential hypertension; Mixed hyperlipidemia; TIA (transient ischemic attack); Complicated UTI (urinary tract infection) Thoracic spondylosis without myelopathy Start: 07-11-2024 End: 07-14-2024 Evaluation and management of inpatient Levi Dorsey MD Work Phone: [facility] Comment on above: Transient alteration of awareness (Primary Dx); Right ear pain; Complicated UTI (urinary tract infection); History of TIA (transient ischemic attack) Start: 05-29-2024 End: 05-29-2024 hari Sparrow MD Facility: [facility] Start: 05-15-2024 End: 05-15-2024 [facility] Start: 05-15-2024 End: 05-15-2024 Subsequent hospital visit by physician Molina Ramos DO Work Phone: [facility] Start: 05-15-2024 End: 05-15-2024 ambulatory Tahir Sparrow MD Facility: [facility] Start: 04-17-2024 End: 04-17-2024 ambulatory Tahir Sparrow MD Facility: [facility] Start: 03-26-2024 End: 03-26-2024 Emergency department patient visit Shabnam Baxter MD Work Phone: [facility] Emergency Department Comment on above: Altered mental statu s, unspecified altered mental status type (Primary Dx); Abnormal CT scan; Urinary tract infection without hematuria, site unspecified Start: 03-20-2024 End: 03-20-2024 [facility]ulatory [facility] Start: 02-16-2024 End: 02-18-2024 [facility] Start: 02-16-2024 End: 02-18-2024 Subsequent hospital visit by physician [facility] Scan Room [facility] CT Scan Comment on above: Somatic dysfunction of lumbar region; Lumbar radiculopathy Start: 01-21-2024 End: 01-21-2024 Emergency department patient visit Shabnam Baxter MD Work Phone: [facility] Emergency Department Comment on above: Strain of lumbar reg ion, initial encounter (Primary Dx) Start: 12-24-2023 End: 12-24-2023 ambulatory [facility] Start: 12-24-2023 End: 12-24-2023 Subsequent hospital visit by physician Quincy Kumar PTA [facility] Physical Therapy Comment on above: Arrived Start: 12-20-2023 End: 12-20-2023 ambulatory [facility] Start: 12-20-2023 End: 12-20-2023 Subsequent hospital visit by physician Moraima Dela Cruz PTA [facility] Physical Therapy Comment on above: Arrived Start: 12-17-2023 End: 12-17-2023 ambulatory [facility] Start: 12-17-2023 End: 12-17-2023 Subsequent hospital visit by physician Dario Ruiz PT [facility] Physical Therapy Comment on above: Arrived Start: 12-13-2023 End: 12-13-2023 ambulatory [facility]OLINA [facility] Start: 12-13-2023 End: 12-13-2023 Subsequent hospital visit by physician Moraima Dela Cruz PTA [facility] Physical Therapy Comment on above: Arrived Start: 12-10-2023 End: 12-10-2023 ambulatory MOLINA [facility] Start: 12-10-2023 End: 12-10-2023 Subsequent hospital visit by physician Moraima Dela Cruz PTA [facility] Physical Therapy Comment on above: Arrived Start: 12-06-2023 End: 12-06-2023 ambulatory MOLINA [facility] Start: 12-06-2023 End: 12-06-2023 Subsequent hospital visit by physician Quincy Kumar PTA [facility] Physical Therapy Comment on above: Arrived Start: 12-03-2023 End: 12-03-2023 ambulatory MOLINA [facility] Start: 12-03-2023 End: 12-03-2023 Subsequent hospital visit by physician Moraima Dela Cruz PTA [facility] Physical Therapy Comment on above: Arrived Start: 11-29-2023 End: 11-29-2023 ambulatory MOLINA [facility] Start: 11-29-2023 End: 11-29-2023 Subsequent hospital visit by physician Moraima Dela Cruz PTA [facility] Physical Therapy Comment on above: Arrived Start: 11-26-2023 End: 11-26-2023 ambulatory MOLINA [facility]al[facility] Start: 11-26-2023 End: 11-26-2023 Subsequent hospital visit by physician Moraima Dela Cruz PTA [facility] Physical Therapy Comment on above: Arrived Start: 11-24-2023 End: 11-24-2023 ambulatory MOLINA [facility]alba [facility] Start: 11-24-2023 End: 11-24-2023 Subsequent hospital visit by physician Moraima Dela Cruz PTA [facility] Physical Therapy Comment on above: Arrived Start: 11-22-2023 End: 11-22-2023 ambulatory MOLINA [facility]ba [facility] Start: 11-19-2023 End: 11-19-2023 ambulatory MOLINA [facility]alba [facility] Start: 11-17-2023 End: 11-17-2023 ambulatory MOLINA [facility]alba [facility] Start: 11-15-2023 End: 11-15-2023 ambulatory MOLINA [facility]alba [facility] Start: 11-12-2023 End: 11-12-2023 ambulatory [facility] Start: 11-12-2023 End: 11-12-2023 Subsequent hospital visit by physician Moraima Dela Cruz PTA [facility] Physical Therapy Comment on above: Arrived Start: 11-10-2023 End: 11-10-2023 ambulatory [facility] Start: 11-08-2023 End: 11-08-2023 ambulatory [facility] Start: 11-08-2023 End: 11-08-2023 Subsequent hospital visit by physician Moraima Dela Cruz PTA [facility] Physical Therapy Comment on above: Arrived Start: 2023 End: 2023 ambulatory [facility] Start: 2023 End: 2023 Subsequent hospital visit by physician Moraima Dela Cruz PTA [facility] Physical Therapy Comment on above: Arrived Start: 11-04-2023 End: 11-04-2023 ambulatory [facility] Start: 11-01-2023 End: 11-01-2023 ambulatory [facility] Start: 10-22-2023 End: 10-22-2023 ambulatory [facility] Start: 05-06-2023 End: 05-06-2023 Subsequent hospital visit by physician Quincy Kumar PTA [facility] Physical Therapy Comment on above: Arrived Start: 10-21-2021 End: 10-21-2021 Emergency department patient visit Eliecer Burris MD [facility] ED Comment on above: Elevated blood press ure reading (Primary Dx) Start: 10-15-2021 End: 10-17-2021 Subsequent hospital visit by physician Florencia Xr Dr Room 4 [facility] Laboratory Comment on above: Pain; Swelling Start: 10-10-2021 End: 10-12-2021 Subsequent hospital visit by physician [facility] Mamm[facility] Comment on above: Breast cancer screen ing by mammogram Start: 10-05-2021 End: 10-05-2021 Emergency department patient visit Eliecer Burris MD [facility] ED Comment on above: Dysarthria (Primary Dx); Acute cystitis without hematuria Start: 07-22-2021 End: 07-22-2021 Subsequent hospital visit by physician Molina Ramos DO Work Phone: [facility] Laboratory Start: 03-03-2021 End: 03-05-2021 Subsequent hospital visit by physician [facility] Vascular Imaging Room [facility] Vascular Lab Comment on above: Left leg swelling Start: 01-21-2021 End: 01-21-2021 Subsequent hospital visit by physician Quincy Kumar PTA [facility] Physical Therapy Comment on above: Arrived Start: 01-13-2021 End: 01-13-2021 Subsequent hospital visit by physician Ford Sarah [facility] Physical Therapy Comment on above: Arrived Start: 01-06-2021 End: 01-06-2021 Subsequent hospital visit by physician Darlin Ferrer PT [facility] Physical Therapy Comment on above: Arrived Start: 12-24-2020 End: 12-24-2020 Subsequent hospital visit by physician Delores Palma PT [facility] Physical Therapy Comment on above: Arrived Start: 12-23-2020 End: 12-23-2020 Subsequent hospital visit by physician Quincy Kumar PTA [facility] Physical Therapy Comment on above: Arrived Start: 12-17-2020 End: 12-17-2020 Subsequent hospital visit by physician Darlin Ferrer PT [facility] Physical Therapy Comment on above: Arrived Start: 12-10-2020 End: 12-10-2020 Subsequent hospital visit by physician Ford Sarah [facility] Physical Therapy Comment on above: Arrived Start: 09-02-2020 End: 09-04-2020 Evaluation and management of inpatient MOLINA Goldy RICHARD [facility] Start: 09-02-2020 End: 09-04-2020 Evaluation and management of inpatient Vernon Patino MD Work Phone: [facility] NSICU Comment on above: Altered mental statu s, unspecified altered mental status type (Primary Dx) Start: 09-02-2020 End: 09-05-2020 ambulatory KRISTINA O CORTEZ [facility] Start: 09-02-2020 End: 09-04-2020 Subsequent hospital visit by physician Acosta Mendoza MD [facility] Phone[facility] Comment on above: Cerebral aneurysm; TGA (transient global amnesia) Start: 06-02-2020 End: 06-02-2020 Emergency department patient visit Law Stratton DO Work Phone: [facility] ED Comment on above: Nausea vomiting and diarrhea (Primary Dx); Other complicated headache syndrome; Dehydration Start: 05-08-2020 End: 05-08-2020 Emergency department patient visit Patrick Pandya Work Phone: [facility] ED Comment on above: Essential hypertensi on (Primary Dx) Start: 04-17-2020 End: 04-19-2020 Evaluation and management of inpatient Dwight Duffy [facility] Comment on above: TIA (transient ische shailesh attack) (Primary Dx) Procedures Date Procedure Procedure Detail Performing Clinician Start: 08-18-2024 Assay of troponin quantitative Shabnam Baxter MD Work Phone: Start: 08-18-2024 Urinalysis microscopic only Sahbnam Baxter MD Work Phone: Start: 08-18-2024 Urnls [...] MG FOR LOW K Marnie L Veronica [employer] Work Phone: Start: 07-14-2024 Blood count complete auto&auto difrntl wbc Marnie Martin APRN - TAILMAN Work Phone: Start: 07-14-2024 Rhythm ecg 1-3 leads w/interpretation & report Unknown Provider Result Start: 07-13-2024 BASIC METABOLIC PANE L W/ REFLEX TO MG FOR LOW K Marnie L Veronica [employer] - [employer] Work Phone: Start: 07-13-2024 Blood count complete auto&auto difrntl wbc Marnie Goldy Martin [employer] OPERATOR - [employer] Work Phone: Start: 07-12-2024 BASIC METABOLIC PANE L W/ REFLEX TO MG FOR LOW K Marnie L Veronica MORINN - TAILMAN Work Phone: Start: 07-12-2024 Blood count complete [...] Start: 10-21-2021 End: 10-21-2021 Comprehensive metabolic panel Eleicer Burris MD Start: 10-15-2021 End: 10-15-2021 Radex [...] Comprehensive metabo lic panel Luis Enrique A [employer] Work Phone: Start: 04-18-2020 Echocardiography Ali F [...] Start: 04-17-2020 Comprehensive metabo lic panel Dwight Goldy Duffy Start: 04-17-2020 Prothrombin time Michmaria esther Winslow Tati Start: 04-17-2020 Thromboplastin time partial plasma/whole blood Dwight Winslow Tati Plan of Treatment Date Care Activity Detail Author Start: 08-18-2025 GFR test (Diabetes, CKD 3-4, OR last GFR 15-59) GFR test (Diabetes, CKD 3-4, OR last GFR 15-59) [facility] Start: 07-26-2025 GFR test (Diabetes, CKD 3-4, OR last GFR 15-59) GFR test (Diabetes, CKD 3-4, OR last GFR 15-59) [facility] Start: 07-14-2025 GFR test (Diabetes, CKD 3-4, OR last GFR 15-59) GFR test (Diabetes, CKD 3-4, OR last GFR 15-59) [facility] Start: 05-15-2025 GFR test (Diabetes, CKD 3-4, OR last GFR 15-59) GFR test (Diabetes, CKD 3-4, OR last GFR 15-59) [facility] Start: 05-15-2025 [facility]id [facility] Start: 03-26-2025 GFR test (Diabetes, CKD 3-4, OR last GFR 15-59) GFR test (Diabetes, CKD 3-4, OR last GFR 15-59) [facility] Start: 01-24-2025 End: 01-24-2025 Patient encounter procedure 01/24/2025 10:20 AM EST Office Visit [facility] [address] [place] [address] Alissa Marx MD [address] [place] [address] 6 month follow up [facility] Comment on above: 6 month follow up Start: 10-21-2024 GFR test (Diabetes, CKD 3-4, OR last GFR 15-59) GFR test (Diabetes, CKD 3-4, OR last GFR 15-59) [facility] Start: 10-21-2024 Lipid panel Lipids [facility] Start: 09-08-2024 Influenza vaccination [facility] Start: 08-28-2024 End: 08-28-2024 Patient encounter procedure 08/28/2024 8:40 AM EDT Office Visit [facility] [address] [place] [address] Lorenzo Vang MD [address] [place] [address] [address] [place] [address] History of TIA [facility] Comment on above: History of TIA Start: 07-28-2024 End: 07-14-2025 CBC W Auto Differential panel - Blood CBC with Auto Differential Lab Routine Complicated UTI (urinary tract infection) Expected: 07/28/2024, Expires: 07/14/2025 [facility] Comment on above: Expected: 07/28/2024, Expires: Start: 07-28-2024 End: 07-14-2025 Comprehensive metabolic 2000 panel - Serum or Plasma Comprehensive Metabolic Panel Lab Routine Complicated UTI (urinary tract infection) Expected: 07/28/2024, Expires: 07/14/2025 [facility] Comment on above: Expected: 07/28/2024, Expires: Start: 07-28-2024 End: 07-14-2025 Culture, Urine Culture, Urine Microbiology Routine Complicated UTI (urinary tract infection) Expected: 07/28/2024, Expires: 07/14/2025 [facility] Comment on above: Expected: 07/28/2024, Expires: Start: 07-28-2024 End: 07-14-2025 Urinalysis with Reflex to Culture Urinalysis with Reflex to Culture Lab Routine Complicated UTI (urinary tract infection) Expected: 07/28/2024, Expires: 07/14/2025 [facility] Comment on above: Expected: 07/28/2024, Expires: Start: 07-19-2024 End: 07-19-2024 Patient encounter procedure 07/19/2024 9:00 AM EDT Office Visit [address] [address] Apurva Vu, [employer] OPERATOR - [employer] [address] [place] [address] [place] [address] 6 month [facility] Comment on above: 6 month Start: 05-08-2024 End: 05-08-2024 Patient encounter procedure 05/08/2024 2:20 PM EDT Office Visit [address] [address] Alissa Marx MD [address] [place] [address] [place] [address] 6 month [facility] Comment on above: 6 month Start: 05-07-2024 COVID-19 Vaccine ( season) COVID-19 Vaccine ( season) [facility] Start: 04-05-2024 Lipid panel Lipids [facility] Start: 03-09-2024 COVID-19 Vaccine ( season) COVID-19 Vaccine ( season) [facility] Start: 02-09-2024 Annual Wellness Visit (Medicare Advantage) Annual Wellness Visit (Medicare Advantage) [facility] Start: 12-24-2023 End: 12-24-2023 Patient encounter procedure 12/24/2023 1:00 PM EST Appointment [facility] Physical Therapy [address] [place], [place] [phone] Quincy Kumar PTA [facility] Start: 12-20-2023 End: 12-20-2023 Patient encounter procedure 12/20/2023 1:15 PM EST [facility] [address] [place], [place] [phone] Moraima Dela Cruz [facility] Start: 12-17-2023 End: 12-17-2023 Patient encounter procedure 12/17/2023 1:00 PM EST Appointment [facility] Physical Therapy [address] [place], [place] [id number] Dario Ruiz, PT [facility] Physical Therapy Comment on above: [facility] Start: 12-13-2023 End: 12-13-2023 Patient encounter procedure 12/13/2023 1:15 PM EST Appointment [facility] Physical Therapy [address] [place], [place] [phone] Moraima Dela Cruz [facility] Start: 12-10-2023 End: 12-10-2023 Patient encounter procedure 12/10/2023 1:30 PM EDT Appointment [facility] Physical Therapy [address] [place], [place] [phone] Moraima Dela Cruz [facility] Start: 12-06-2023 End: 12-06-2023 Patient encounter procedure 12/06/2023 1:15 PM EDT [facility]ointment [facility] [address] [place] [id number] Quincy Kumar PTA [facility] Start: 12-03-2023 End: 12-03-2023 Patient encounter procedure 12/03/2023 1:00 PM EDT [facility]ointment [facility] [address] [place] [id number] Moraima Dela Cruz PTA [facility] Start: 11-29-2023 End: 11-29-2023 Patient encounter procedure 11/29/2023 2:00 PM EDT [facility]ointment [facility] [address] [place] [id number] Moraima Dela Cruz [facility]TA [facility] Start: 11-26-2023 End: 11-26-2023 Patient encounter procedure [facility] Physical Therapy Comment on above: [facility] Start: 11-24-2023 End: 11-24-2023 Patient encounter procedure 11/24/2023 1:15 PM EDT Appointment [facility] Physical Therapy [address] [place], [place] [phone] Moraima Dela Cruz PTA [facility] Physical Therapy Start: 11-22-2023 End: 11-22-2023 Patient encounter procedure 11/22/2023 1:15 PM EDT Appointment [facility] Physical Therapy [address] [place], [place] [phone] Moraima Dela Cruz PTA [facility] Physical Therapy Start: 11-19-2023 End: 11-19-2023 Patient encounter procedure 11/19/2023 1:00 PM EDT Appointment [facility] Physical Therapy [address] [place], [place] [phone] Moraima Dela Cruz PTA [facility] Physical Therapy Start: 11-17-2023 End: 11-17-2023 Patient encounter procedure 11/17/2023 1:00 PM EDT Appointment [facility] Physical Therapy [address] [place], [place] [phone] Moraima Dela Cruz PTA [facility] Physical Therapy Start: 11-15-2023 End: 11-15-2023 Patient encounter procedure 11/15/2023 1:15 PM EDT Appointment [facility] Physical Therapy [address] [place] [phone] Moraima Dela Cruz PTA [facility] Physical Therapy Start: 11-12-2023 End: 11-12-2023 Patient encounter procedure 11/12/2023 1:00 PM EDT Appointment [facility] Physical Therapy [address] [place] [phone] Moraima Dela Cruz [employer] [facility] Physical Therapy Start: 11-10-2023 End: 11-10-2023 Patient encounter procedure 11/10/2023 1:15 PM EDT Appointment [facility] Physical Therapy [address] [place] [phone] Moraima Dela Cruz [employer] [facility] Physical Therapy Start: 11-08-2023 End: 11-08-2023 Patient encounter procedure 11/08/2023 1:15 PM EDT Appointment [facility] Physical Therapy [address] [place] [phone] Moraima Dela Cruz PTA [facility] Physical Therapy Start: 10-25-2023 End: 10-25-2023 Patient encounter procedure 10/25/2023 2:20 PM EDT Office Visit [facility] Part [address] [place] [address] Alissa Marx MD [address] [place] [address] [place] [address] 6 month [facility] Comment on above: 6 month Start: 10-10-2023 COVID-19 Vaccine ( season) COVID-19 Vaccine () [facility] Start: 09-09-2023 Influenza vaccination Flu vaccine (#1) [facility] Start: 06-09-2023 End: 06-09-2023 Patient encounter procedure 06/09/2023 6:30 PM EDT Appointment [facility] [address] [place] [phone] self referral, julián w pt [facility] Comment on above: self referral, julián w pt Start: 06-03-2023 End: 06-03-2023 Patient encounter procedure 06/03/2023 12:30 PM EDT Appointment [facility] Physical Therapy [address] [place] [address] [phone] Jennifer Carrillo, PT MEDICARE [facility] Physical Therapy Comment on above: MEDICARE Start: 05-27-2023 End: 05-27-2023 Patient encounter procedure 05/27/2023 12:30 PM EDT Appointment [facility] Physical Therapy [address] [place] [address] [phone] Quincy Kumar PTA [facility] Physical Therapy Start: 05-24-2023 End: 05-24-2023 Patient encounter procedure 05/24/2023 12:30 PM EDT Appointment [facility] Physical Therapy [address] [place] [address] [phone] Quincy Kumar, [employer] [facility] Physical Therapy Start: 05-21-2023 End: 05-21-2023 Patient encounter procedure 05/21/2023 1:00 PM EDT Appointment [facility] Physical Therapy [address] [place] [address], [place] [phone] Quincy Kumar [employer] [facility] Physical Therapy Start: 05-20-2023 End: 05-20-2023 Patient encounter procedure 05/20/2023 3:30 PM EDT Appointment [facility] Physical Therapy [address] [place] [address], [place] [address] Quincy Kumar [employer] [facility] Physical Therapy Start: 05-14-2023 End: 05-14-2023 Patient encounter procedure 05/14/2023 2:15 PM EDT Appointment [facility] Physical Therapy [address] [place] [address], [place] [address] Jennifer Carrillo PT [facility] Physical Therapy Start: 05-13-2023 End: 05-13-2023 Patient encounter procedure 05/13/2023 3:30 PM EDT Appointment [facility] Physical Therapy [address] [place] [address], [place] [phone] Quincy Kumar, [employer] [facility] Physical Therapy Start: 01-04-2023 Annual Wellness Visit (Medicare) Annual Wellness Visit (Medicare) [facility] Start: 10-09-2022 COVID-19 Vaccine ( season) COVID-19 Vaccine ( season) [facility] Start: 09-10-2022 Shingles vaccine (3 of 3) Shingles vaccine (3 of 3) [facility] Start: 09-08-2022 Influenza vaccination Flu vaccine (#1) [facility] Start: 07-22-2022 Lipid panel Lipids [facility] Start: 01-05-2022 End: 01-05-2022 Patient encounter procedure 01/05/2022 Office Visit Neurology Lorenzo Vang MD [address] [place] [address] [place] [address] [facility] Start: 10-10-2021 End: 10-10-2021 Patient encounter procedure 10/10/2021 Appointment Radiology [facility] Start: 10-09-2021 [facility] Start: 10-06-2021 End: 10-05-2022 Echo 2d w doppler w color w contrast Echo 2d w doppler w color w contrast Echocardiography Routine Dysarthria Expected: 10/06/2021, Expires: 10/05/2022 [facility] [employer] Work Phone: Comment on above: Expected: 10/06/2021, Expires: Start: 09-03-2021 Creatinine measurement Creatinine monitoring [employer] Phone: Start: 09-03-2021 Potassium monitoring Potassium monitoring [employer] Phone: Start: 09-02-2021 Lipid panel [employer] Start: 06-02-2021 Creatinine measurement Creatinine monitoring [employer] Phone: Start: 06-02-2021 Potassium monitoring Potassium monitoring [employer] Phone: Start: 05-08-2021 Creatinine measurement Creatinine monitoring [employer] Phone: Start: 05-08-2021 Potassium monitoring Potassium monitoring [employer] Phone: Start: 04-18-2021 Creatinine measurement Creatinine monitoring [employer] Phone: Start: 04-18-2021 Lipid panel Lipid screen [employer] Phone: Start: 04-18-2021 Potassium monitoring Potassium monitoring [employer] Phone: Start: 03-03-2021 End: 03-03-2021 Patient encounter procedure [facility] Start: 02-24-2021 COVID-19 Vaccine (2 - Pfizer series) COVID-19 Vaccine (2 - Pfizer series) [facility] Start: 02-04-2021 End: 02-04-2021 Patient encounter procedure [...] 12/31/2020 Appointment Physical Therapy [facility]cy [facility] Start: 12-30-2020 End: 12-30-2020 Patient encounter procedure [facility] Start: 12-24-2020 End: 12-24-2020 Patient encounter procedure [facility] Physical Therapy Start: 12-23-2020 End: 12-23-2020 Patient encounter procedure 12/23/2020 Appointment Physical Therapy Quincy Kumar PTA [facility] Start: 12-17-2020 End: 12-17-2020 Patient encounter procedure 12/17/2020 Appointment Physical Therapy Darlin Ferrer PT [facility] Start: 12-09-2020 End: 12-09-2020 Patient encounter procedure 12/09/2020 Office Visit Neurology Kristina Lomax MD [address] [facility] [address] [facility] [address] [place], [place] [phone] [facility] Start: 10-09-2020 Influenza vaccination [facility] Start: 10-04-2020 End: 10-04-2020 Patient encounter procedure 10/04/2020 Office Visit Neurology Ralf Christie MD [address] [facility] [place], [place] [phone] [facility] Start: 08-19-2020 End: 08-19-2020 Patient encounter procedure 08/19/2020 Office Visit Cardiology Alissa Marx MD [address] [place] [address] [facility] Start: 06-24-2020 End: 06-24-2020 Patient encounter procedure 06/24/2020 Office Visit Neurology Lorenzo Vang MD [address] [place] [address] [facility] Start: 06-10-2020 COVID-19 Vaccine (2 - Moderna 2-dose series) COVID-19 Vaccine (2 - Moderna 2-dose series) [facility] Work Phone: Start: 05-24-2020 End: 05-24-2020 Office Visit 05/24/2020 Office Visit Neurology Hudson Pittman MD [address] [facility] [address] [facility] [address] [place], [place] [phone] [facility] Start: 05-13-2020 End: 05-13-2020 Office Visit 05/13/2020 Office Visit Cardiology Alissa Marx MD [address] [place] [address] [phone] [facility] Part [facility] Start: 05-06-2020 End: 05-06-2020 Office Visit 05/06/2020 Office Visit Cardiology Alissa Marx MD [address] [place] [address] [place] [address] [phone] [facility] Start: 04-18-2020 End: 04-18-2021 Halfway Continuous Cardiac Event Monitor [facility] Continuous Cardiac Event Monitor Cardiac Services Routine TIA (transient ischemic attack) Expected: 04/18/2020, Expires: 04/18/2021 [employer] Phone: Comment on above: Expected: 04/18/2020, Expires: Start: 10-10-2019 Influenza vaccination Flu vaccine (#1) [facility] Phone: Start: 07-31-2018 Annual Wellness Visit (AWV) Annual Wellness Visit (AWV) [facility] Start: 03-23-2017 Shingles Vaccine (2 of 3) Shingles Vaccine (2 of 3) [facility] Start: 2006 Pneumococcal 65+ years Vaccine (1 - PCV) Pneumococcal 65+ years Vaccine (1 - PCV) [facility] Start: 2006 Pneumococcal 65+ years Vaccine (1 of 1 - PPSV23) Pneumococcal 65+ years Vaccine (1 of 1 - PPSV23) [facility] Start: 2001 Respiratory Syncytial Virus (RSV) or age 60 yrs+ (1 - 1-dose 60+ series) Respiratory Syncytial Virus (RSV) or age 60 yrs+ (1 - 1-dose 60+ series) [facility] [employer] Start: 1960 DTaP/Tdap/Td vaccine (1 - Tdap) DTaP/Tdap/Td vaccine (1 - Tdap) [facility] Start: 1960 Pneumococcal 50+ years Vaccine (1 of 2 - PCV) Pneumococcal 50+ years Vaccine (1 of 2 - PCV) [facility] Start: 11-06-1959 Hepatitis C screening Hepatitis C screen [employer] [employer] Start: 11-06-1959 Urine screening for protein Diabetic Alb to Cr ratio (uACR) test [facility] [employer] Start: 1957 COVID-19 Vaccine (1) COVID-19 Vaccine (1) [employer] Work Phone: Start: 1953 COVID-19 Vaccine (1) COVID-19 Vaccine (1) [employer] Start: 1953 Depression Screen Depression Screen [facility] [employer] Start: 11-06-1947 Pneumococcal 65+ years Vaccine (1 of 2 - PCV) Pneumococcal 65+ years Vaccine (1 of 2 - PCV) [facility] [employer] Start: 1946 COVID-19 Vaccine (1) COVID-19 Vaccine (1) [facility] [employer] Start: 1941 Annual Wellness Visit (AWV) Annual Wellness Visit (AWV) [facility] Start: 1941 Hepatitis C screening Hepatitis C screen [facility] [employer] End: 07-16-2024 Basic Metabolic Panel w/ Reflex to MG Basic Metabolic Panel w/ Reflex to MG Lab Routine Daily for 5 Days starting 07/12/2024 until 07/16/2024, 3 completed [employer] Comment on above: Daily for 5 Days starting 07/12/2024 unt il 07/16/2024, 3 completed Blood Culture 1 Blood Culture 1 Microbiology STAT 07/11/2024 10:15 PM EDT [facility] [employer] End: 07-16-2024 CBC W Auto Differential panel - Blood CBC auto differential Lab Routine Daily for 5 Days starting 07/12/2024 until 07/16/2024, 3 completed [employer] Comment on above: Daily for 5 Days starting 07/12/2024 unt il 07/16/2024, [address] Head WO contrast CT Head W/O Contrast Imaging CODE STROKE 08/18/2024 2:21 AM EDT [employer] CTA Head vessels and Neck vessels W contrast IV CTA HEAD NECK W CONTRAST Imaging CODE STROKE 08/18/2024 2:16 AM EDT [employer] Culture, Blood 2 Culture, Blood 2 Microbiology STAT 07/11/2024 10:20 PM EDT [facility] [employer] End: 10-05-2021 Culture, Urine [employer] Work Phone: Comment on above: One Time for 1 Occurrences starting 09/09 until 10/05/2021 End: 03-26-2024 Culture, Urine [employer] Comment on above: Once for 1 Occurrences starting 03/26/19 until 03/26/2024 End: 07-26-2024 Culture, Urine [employer] Comment on above: 1 Occurrences starting 07/26/2024 until 07/26/2024 EKG 12 Lead EKG 12 Lead ECG Routine 10/05/2021 2:23 PM EDT [employer] Work Phone: EKG 12 Lead EKG 12 Lead ECG STAT 10/21/2021 5:01 PM EDT [employer] EKG 12 Lead EKG 12 Lead ECG STAT 03/26/2024 2:35 PM EST [employer] End: 07-22-2021 Hemoglobin A1c/Hemoglobin.total in Blood [employer] Work Phone: Comment on above: Once for 1 Occurrences starting 07/23/19 until 07/22/2021 Intermittent pulse oximetry Pulse Oximetry Spot Check Respiratory Care Routine As Needed until discontinued starting 09/02/2020 [employer] Phone: Comment on above: As Needed until discontinued starting End: 09-02-2020 IR ANGIOGRAM CAROTID CEREBRAL BILATERAL IR ANGIOGRAM CAROTID CEREBRAL BILATERAL Imaging Routine Cerebral aneurysm 1 Occurrences starting 09/02/2020 until 09/02/2020 [employer] Phone: Comment on above: 1 Occurrences starting 09/02/2020 until 09/02/2020 IR ANGIOGRAM CAROTID CEREBRAL BILATERAL IR ANGIOGRAM CAROTID CEREBRAL BILATERAL Imaging Routine Cerebral aneurysm 09/02/2020 9:42 AM EDT [employer] Phone: LAB SCANNED REPORT LAB SCANNED R EPORT Lab Ordered: 09/04/2020 [employer] Phone: Comment on above: Ordered: 09/04/2020 End: 07-22-2021 Lipid panel [employer] Phone: Comment on above: Once for 1 Occurrences starting 07/23/19 22 until 07/22/2021 End: 04-19-2020 Halfway Continuous Cardia Event Monitor [facility] Continuous [facility]ia Event Monitor Cardiac Services Routine One Time for 1 Occurrences starting 04/19/2020 until 04/19/2020 [employer] Phone: Comment on above: One Time for 1 Occurrences starting 04/08 until 04/19/2020 End: 10-10-2021 ALMA ESME DIGITAL SCREEN SELF REFERRAL W OR WO CAD BILATERAL [employer] [employer] Phone: Comment on above: 1 Occurrences starting 10/10/2021 until 10/10/2021 End: 09-02-2020 MRI LIMITED BRAIN MRI LIMITED BRAIN Imaging STAT Once for 1 Occurrences starting 09/02/2020 until 09/02/2020 [employer] Phone: Comment on above: Once for 1 Occurrences starting 09/03/19 21 until 09/02/2020 MRI LIMITED BRAIN MRI LIMITED BR AIN Imaging STAT 09/02/2020 11:34 AM EDT [employer] Phone: Oxygen therapy [[facility] Data Set] [employer] Phone: Comment on above: Daily until discontinued starting 2020 Daily until disconti nued starting 09/02/2020 End: 09-03-2020 PREVIOUS SPECIMEN PREVIOUS SPECIMEN Lab Routine Once for 1 Occurrences starting 09/03/2020 until 09/03/2020 [employer] Phone: Comment on above: Once for 1 Occurrences starting 09/04/19 21 until 09/03/2020 End: 09-02-2020 Speech and language therapy regime Speech Language Pathology (HOST COORDINATOR) eval and treat HOST COORDINATOR Routine One Time for 1 Occurrences starting 09/02/2020 until 09/02/2020 [employer] Phone: Comment on above: One Time for 1 Occurrences starting 08/09 until 09/02/2020 End: 08-18-2024 Thyroxine (T4) free [Mass/volume] in Serum or Plasma T4, Free Lab Routine One Time for 1 Occurrences starting 08/18/2024 until 08/18/2024 [employer] Comment on above: One Time for 1 Occurrences starting 08/08 until 08/18/2024 Thyroxine (T4) free [Mass/volume] in Serum or Plasma T4, Free Lab STAT 08/18/2024 1:09 AM EDT [employer] End: 05-15-2024 Urinalysis [employer] Phone: Comment on above: Once for 1 Occurrences starting 05/16/19 until 05/15/2024 End: 04-19-2020 US Heart Transesophageal Echocardiogram transesophogeal Echocardiography STAT One Time for 1 Occurrences starting 04/19/2020 until 04/19/2020 [employer] Phone: Comment on above: One Time for 1 Occurrences starting 04/08 until 04/19/2020 End: 08-18-2024 XR Chest Single view XR CHEST 1 VIEW Imaging STAT Once for 1 Occurrences starting 08/18/2024 until 08/18/2024 [employer] Comment on above: Once for 1 Occurrences starting 08/19/19 until 08/18/2024 XR Chest Single view XR CHEST 1 VIEW Imaging STAT 08/18/2024 2:22 AM EDT [employer] End: 07-26-2024 XR Thoracic spine 2 Views [employer] Phone: Comment on above: 1 Occurrences starting 07/26/2024 until 07/26/2024 Immunizations Immunization Date Immunization Notes Care Provider Divine russell 11-26-2017 Influenza Vaccine, unspecified formulation Dwight Duffy [employer] 01-26-2017 zoster vaccine, live Dwight Snow [facility] [employer] Phone: Payers Date Payer Category Payer Medicare [id number] 2024 Medicare 2014 Private Health Insurance [facility] [id number] 2001 Medicare [id number] 2001 Medicare [id number] 1941 Unknown [id number] 2.16.8 40.1.982810.3.579.2.175 1941 Unknown [id number] 2.16.8 40.1.745758.3.579.2.175 1941 Unknown [id number] 2.16.8 40.1.818158.3.579.2.173 1941 Unknown [id number] 2.16.8 40.1.979490.3.579.2.173 1941 Unknown [id number] 2.16.8 40.1.676723.3.579.2.173 1941 Unknown [id number] 2.16.8 40.1.775757.3.579.2.173 1941 Unknown [id number] 2.16.8 40.1.572925.3.579.2.173 1941 Unknown [id number] 2.16.8 40.1.485503.3.579.2.173 1941 Unknown [id number] 2.16.8 40.1.361965.3.579.2.173 1941 Unknown [id number] 2.16.8 40.1.941061.3.579.2.173 1941 Unknown [id number] 2.16.8 40.1.498288.3.579.2.173 1941 Unknown [id number] 2.16.8 40.1.425403.3.579.2.173 1941 Unknown [id number] 2.16.8 40.1.040434.3.579.2.173 1941 Unknown [id number] 2.16.8 40.1.494019.3.579.2.173 1941 Unknown [id number] 2.16.8 40.1.719205.3.579.2.173 1941 Unknown [id number] 2.16.8 40.1.291545.3.579.2.173 1941 Unknown [id number] 2.16.8 40.1.903297.3.579.2.173 1941 Unknown [id number] 2.16.8 40.1.013872.3.579.2.173 1941 Unknown [id number] 2.16.8 40.1.952603.3.579.2.173 1941 Unknown [id number] 2.16.8 40.1.979671.3.579.2.173 1941 Unknown [id number] 2.16.8 40.1.047892.3.579.2.173 1941 Unknown [id number] 2.16.8 40.1.314042.3.579.2.173 1941 Unknown [id number] 2.16.8 40.1.114094.3.579.2.173 1941 Unknown [id number] 2.16.8 40.1.000444.3.579.2.173 1941 Unknown [id number] 2.16.8 40.1.608538.3.579.2.173 1941 Unknown [id number] 2.16.8 40.1.444235.3.579.2.173 1941 Unknown [id number] 2.16.8 40.1.634464.3.579.2.173 1941 Unknown [id number] 2.16.8 40.1.858970.3.579.2.173 1941 Unknown [id number] 2.16.8 40.1.558909.3.579.2.173 1941 Unknown [id number] 2.16.8 40.1.590946.3.579.2.173 1941 Unknown [id number] 2.16.8 40.1.878752.3.579.2.173 1941 Unknown [id number] 2.16. 840.1.599922.3.579.2.196 1941 Unknown [id number] 2.16. 840.1.286819.3.579.2.196 1941 Unknown [id number] 2.16. 840.1.751272.3.579.2.196 1941 Unknown [id number] 2.16. 840.1.622366.3.579.2.196 1941 Unknown [id number] 2.16. 840.1.661342.3.579.2.196 Social History Date Type Detail Facility Start: 04-19-2020 End: 10-10-2021 Tobacco smoking status LAIS Never smoker [employer] Start: 04-19-2020 End: 10-10-2021 Tobacco use and exposure Never used [employer] Phone: Start: 04-19-2020 End: 07-19-2024 Alcohol intake Current non-drinker of alcohol (finding) [employer] Phone: Start: 1940 Sex Assigned At Not on file [facility] [employer] Phone: Start: 09-25-2021 End: 10-21-2021 Exposure to SARS-CoV-2 (event) Not sure [employer] Phone: Exposure to SARS-CoV -2 (event) Yes [employer] Start: 04-04-2023 End: 07-12-2024 History of Social function [facility] [employer] Start: 04-04-2023 End: 07-12-2024 [facility] Utilities [facility] Has the electric, [employer] s, oil, or water company threatened to shut off services in your home in past 12Mo No [facility] [employer] How often to you hav e a drink containing alcohol? Never [facility] Average Number of Drinks Not on file [facility] (I/We) worried wheth er (my/our) food would run out before (I/we) got money to buy more. Never true [facility] Start: 03-20-2012 Sex Female (finding) Gracia Odell [facility] Medical Equipment Procedure Code Equipment Code Equipment Origin al Text Equipment Identifier Dates Lens Iol [employer] 25.0d - [id number] Start: 12-20-2017 Functional Status Date Assessment Result Facility [facility] Clinical Notes 09-02-2020 to 08-18-2024 Discharge [...] cannot be sent through Care Everywhere.Weakness: Generalized ([place])Cervical Strain ([place])documented in this encounter [facility] 07-14-2024 History of Present illness Narrative Physical Therapy Facility/Department: [facility] Daily Treatment Note NAME: Ever Palmer : 1940 Date of Service: 07/14/2024 Discharge Recommendations: Continue to assess pending progress, Home with Home health PT, Home with assist PRN, Subacute/Chcf Facility Patient Diagnosis(es): The primary encounter diagnosis [...] 07/14/2024 12:49 PM EDT Physical Therapy Facility/Department: [facility] Daily Treatment Note NAME: Ever Palmer : 1940 Date of Service: 07/14/2024 Discharge Recommendations: Continue to assess pending progress, Home with Home health PT, Home with assist PRN, Subacute/Chcf Facility Patient Diagnosis(es): The primary encounter diagnosis was Transient alteration of awareness. A diagnosis of Right ear pain was also pertinent to this visit. Assessment Assessment: Bed mobility:SBA. Transfers:CGA/SBA. Pt ambulated [id number] with FWW and CGA for safety. Demoes [...] from the original note were not included. [address] , [place], [place], [address] Progress Note Date: 07/14/2024 Patient name: Ever [...] clubbing or edema DIAGNOSTICS: Laboratory Testing: See [facility] EMR for lab data Recent Results [...] 2 times per day Marnie Martin L, FRUIT PRESS OPERATOR - TAILMAN 10 mL at 07/13/242207 sodium chloride flush 0.9 % injection 5-40 mL 5-40 mL IntraVENous PRN VeronicaPhiln L, FRUIT PRESS OPERATOR - TAILMAN 0.9 % sodium chloride infusion IntraVENous PRN Marnie Martin L, FRUIT PRESS OPERATOR - TAILMAN enoxaparin (LOVENOX) injection 40 mg 40 mg SubCUTAneous Daily Marnie Martin L, FRUIT PRESS OPERATOR - TAILMAN 40 mg at 07/13/24925 ondansetron (ZOFRAN-ODT) disintegrating tablet 4 mg 4 mg Oral Q8H PRN Mranie Martin, FRUIT PRESS OPERATOR - TAILMAN Or ondansetron (ZOFRAN) injection 4 mg 4 mg IntraVENous Q6H PRN Marnie Martin L, FRUIT PRESS OPERATOR - TAILMAN acetaminophen (TYLENOL) tablet 650 mg 650 mg Oral Q6H PRN Marnie Martin L, FRUIT PRESS OPERATOR - TAILMAN 650 mg at 07/13/241930 Or acetaminophen (TYLENOL) suppository 650 mg 650 mg Rectal Q6H PRN Marnie Martin L, FRUIT PRESS OPERATOR - TAILMAN polyethylene glycol (GLYCOLAX) packet 17 g 17 g Oral Daily PRN Marnie Martin L, FRUIT PRESS OPERATOR - TAILMAN aspirin EC tablet 81 mg 81 mg Oral Daily Marnie Martin L, FRUIT PRESS OPERATOR - TAILMAN 81 mg at 07/13/24925 atorvastatin (LIPITOR) tablet 40 mg 40 mg Oral Nightly Marnie Martin L, FRUIT PRESS OPERATOR - TAILMAN 40 mg at 07/13/241930 baclofen (LIORESAL) tablet 10 mg 10 mg Oral Nightly Marnie Martin L, FRUIT PRESS OPERATOR - TAILMAN 10 mg at 07/13/241930 lactulose (CHRONULAC) 10 GM/15ML solution 10 g 10 g Oral BID Marnie Martin L, FRUIT PRESS OPERATOR - TAILMAN metFORMIN (GLUCOPHAGE) tablet 500 mg 500 mg Oral Nightly Veronica, Marnie L, FRUIT PRESS OPERATOR - TAILMAN 500 mg at 07/13/241930 montelukast (SINGULAIR) tablet 10 mg 10 mg Oral Nightly VeronicaPhiln Goldy, FRUIT PRESS OPERATOR - TAILMAN 10 mg at 07/13/241930 rOPINIRole (REQUIP) tablet 0.5 mg 0.5 mg Oral Daily VeronicaPhiln L, FRUIT PRESS OPERATOR - TAILMAN 0.5 mg at 07/13/242202 spironolactone (ALDACTONE) tablet 50 mg 50 mg Oral Daily VeronicaPhiln L, FRUIT PRESS OPERATOR - TAILMAN 50 mg at 07/13/24925 ASSESSMENT: Principal Problem: Complicated UTI (urinary tract infection) Active Problems: TGA (transient global amnesia) Type 2 diabetes mellitus, without long-term current use of insulin ([facility]) Hypertension Resolved Problems: * No resolved [...] this chart was generated using voice recognition Risk I/O dictation software. Although every effort was made to ensure the accuracy of this automated partner alliance manager, some errors in partner alliance manager may have occurred. Victor M Ny MD 07/14/2024 6:33 AM Rehabilitation Consultant at bedside to complete evening assessment. Upon entry to room, pt in chair, at bed side, respirations unlabored while on RA. Vitals obtained and assessment completed, see flow sheet for details. Pt denies needs from press writer at this time. Call light in [...] Assessment: (P) Calm Intervention: (P) Discussed belief system/voodoo practices/jono, Discussed illness injury and it s impact Outcome: (P) Encouraged, Engaged in conversation Physical Therapy Facility/Department: [facility] Daily Treatment Note NAME: Ever Palmer : 1940 Date of Service: 07/13/2024 Discharge Recommendations: Continue to assess pending progress, Home with Home health PT, Home with assist PRN, Subacute/Chcf Facility Patient Diagnosis(es): The encounter diagnosis was [...] Minutes 26 Marnie Cole PTA Cosigned by Dario Ruiz PT at 07/13/2024 3:09 PM EDT Physical Therapy Facility/Department: [facility] Daily Treatment Note NAME: Ever Palmer : 1940 Date of Service: 07/13/2024 Discharge Recommendations: Continue to assess pending progress, Home with Home health PT, Home with assist PRN, Subacute/Chcf Facility Patient Diagnosis(es): The encounter diagnosis was [...] upon arrival with eyes closed, responds when SPECIAL FORCES WEAPONS SERGEANT entered, agreeable to therapy at this time. [...] Well developed, well nourished with no malnutrition Dedicated Driver consult initiated I/O Daily weight Monitor Daily [...] Accumulation Location: Extremities (07/12/24813) Acute Illness - Mottle Lay Up Operator Strength: Not Performed (07/12/24813) Acute Illness - [...] Full Code Disposition: Discharge plan is pending [facility] Advanced Care Planning documentation: [x] I have [...] the patient's medical record. [DOES NOT SATISFY [facility] PERFORMANCE] ENZO Holley CNP , HERNANDO GIRALDO-C Hospitalist Medicine 07/13/2024, 6:47 AM Cosigned by Victor M Ny MD at 07/13/2024 2:35 PM EDT Associated attestation - Victor M Ny MD - 07/13/2024 2:35 PM EDT Images from the original note were not included. [address], [place], [place], [address] Attestation Patient: Ever Palmer Date of Admission: 07/11/2024 9:56 PM Hospital Day # 1 Date of Evaluation: 07/13/2024 I personally evaluated and examined the patient [id number] in conjunction with the PA/CONCESSION ATTENDANT and agree with the management and dispostition of the patient. Please see the PA/CONCESSION ATTENDANT's note for full details. My eason findings [...] with the plan as outlined in the CONCESSION ATTENDANT/PA's note Disposition: Discharge plan is pending Please note that this chart was generated using voice recognition Risk I/O dictation software. Although every effort was made to ensure the accuracy of this automated partner alliance manager, some errors in partner alliance manager may have occurred. Victor M Ny MD 07/13/2024 2:34 PM Rehabilitation Consultant at bedside to complete evening assessment. Upon entry to room, pt in chair, respirations unlabored while on RA. Vitals obtained and assessment completed, see flow sheet for details. Pt denies needs from press writer at this time. Call light in reach. Care is ongoing. [facility] Inpatient/Observation/Outpatien t Rehabilitation Date: 07/12/2024 Patient Name: [...] does not require skilled services due to: Therapist/Solid Waste Division Supervisor will attempt to see this patient, at [...] this time, see flowsheets for more details. Rehabilitation Consultant and Erika RN assisted patient to bedside commode. Patient is having some urinary frequency. Patient denies no more needs at this time. Call light and bedside table within reach. Bed alarm on. Bed/chair wheels locked. Bed in lowest position. Occupational Therapy Facility/Department: [facility] Occupational Therapy Initial Assessment Name: [...] Level of Assist for Transfers: Independent Active Journeyman Electrician: No Objective Observation/Palpation Posture: Fair Safety Devices [...] Outcome: Continued education needed AM-PAC - ADL AM-[facility] Daily Activity - Inpatient How much [...] much help for eating meals?: A Little AM-[facility] Inpatient Daily Activity Raw Score: 14 AM-[facility] Inpatient ADL T-Scale Score : 33.39 ADL Inpatient [facility] 0-100% Score: 59.67 ADL Inpatient [facility] G-Code Modifier : CK Goals Short Term [...] muscle mass loss Fluid Accumulation: Mild Extremities Mottle Lay Up Operator Strength: Not Performed Nutrition Assessment: Predicted suboptimal [...] Measures: Height: 165.1 cm (5' 5 ) Braham Body Weight (IBW): 125 lbs (57 kg) [...] Used for Energy Requirements: Current Energy (kcal/day): 4842-0672 (18-21) Weight Used for Protein Requirements: Braham Protein (g/day): 62-74 (1.1-1.3) Method Used for [...] current diet [address], LD Contact: [id number] Physical Therapy Facility/Department: [facility] Physical Therapy Initial Assessment Name: Ever Palmer : 1940 Date of Service: 07/12/2024 Discharge Recommendations: Continue to assess pending progress, Home with Home health PT, Home with assist PRN, Subacute/Chcf Facility Patient Diagnosis(es): The encounter diagnosis was [...] Level of Assist for Transfers: Independent Active Journeyman Electrician: No Vision/Hearing Cognition Orientation Overall Orientation Status: [...] Well developed, well nourished with no malnutrition Dedicated Driver consult initiated I/O Daily weight Monitor Daily [...] Full Code Disposition: Discharge plan is pending [facility] Advanced Care Planning documentation: [x] I have [...] the patient's medical record. [DOES NOT SATISFY [facility] PERFORMANCE] ENZO Holley CNP , HERNANDO GIRALDO-C Hospitalist Medicine 07/12/2024, 6:35 AM Cosigned by Victor M Ny MD at 07/12/2024 6:31 PM EDT Associated attestation - Victor M Ny MD - 07/12/2024 6:31 PM EDT Images from the original note were not included. [address] [place], [place], [address] Attestation Patient: Ever Palmer Date of Admission: 07/11/2024 9:56 PM Hospital Day # 0 Date of Evaluation: 07/12/2024 I personally evaluated and examined the patient [id number] in conjunction with the PA/CONCESSION ATTENDANT and agree with the management and dispostition of the patient. Please see the PA/CONCESSION ATTENDANT's note for full details. My eason findings [...] with the plan as outlined in the CONCESSION ATTENDANT/PA's note Disposition: Discharge plan is pending Please note that this chart was generated using voice recognition Smart Pipeon dictation software. Although every effort was made to ensure the accuracy of this automated partner alliance manager, some errors in partner alliance manager may have occurred. Victor M Ny MD [...] of DNR-CCA. was unsure about what to do.Rehabilitation Consultant will inform CONCESSION ATTENDANT. Patient was able to stand pivot to the bed from the ER cot and tolerated fairly well. According to pt and , she normally ambulates independently or with a cane or walker at home. Vitals and assessment are complete. Rehabilitation Consultant walked patient through the doctor's orders and the medications that would be administered tonight. Medications given in ER were also reviewed. Rehabilitation Consultant encouraged patient to ask questions. Personal belongings are with patient and patient was oriented to the room and call light. Call light and bedside table are within reach. Rehabilitation Consultant gave a basic explanation of how the patient's day would go tomorrow, and that a care team would be rounding some time in the morning. Report called to RAMONE Ruiz at this time. documented in this encounter [facility] 07-14-2024 Hospital Discharge instructions [place]rine [place] - [...] most local grocery stores, pharmacies, and chain [employer]stores. If you have any questions about your [...] Information Primary Emergency Contact: Jose Palmer Address: [address] [place] Relation: Spouse Hearing or visual needs: None Other needs: None Preferred language: [place] Fuel Storage Technician needed? No Secondary Emergency Contact: [facility] Relation: Child Hearing or visual needs: None Other needs: None Preferred language: [place] Fuel Storage Technician needed? No Past Surgical History: Past Surgical History: Procedure Laterality Date ANKLE SURGERY Left APPENDECTOMY CARPAL TUNNEL RELEASE Bilateral CATARACT REMOVAL WITH IMPLANT Left CATARACT REMOVAL WITH IMPLANT Right 12/20/2017 Dr Dee CHOLECYSTECTOMY COLONOSCOPY HYSTERECTOMY (CERVIX STATUS UNKNOWN) OTHER SURGICAL HISTORY 09/02/[address] XCAPSL CTRC RMVL INSJ IO LENS PROSTH W/O ECP Right 12/20/2017 EYE CATARACT EMULSIFICATION IOL IMPLANT performed by Rocky Dee DO at [facility] OR Immunization History: Immunization History Administered Date(s) [...] MENTAL STATUS:} IV Access: { REFUGIO IV ACCESS:683118187} Nursing Mobility/ADLs: Walking {CHP DME ADLs:604275441} Transfer {CHP DME ADLs:219637677} Bathing {CHP DME ADLs:440421298} Dressing {CHP DME ADLs:981953345} Toileting {CHP DME ADLs:440908843} Feeding {CHP DME ADLs:894435668} Cell Reliner {CHP DME ADLs:513757365} Med Delivery { REFUGOI MED Delivery:018621057} Wound Care Documentation and Therapy: Incision 12/20/17 Eye Right (Active) Number of days: 2397 Elimination: Continence: Bowel: {YES / NO:} Bladder: {YES / NO:} Urinary Catheter: {Urinary Catheter:740932251} Colostomy/Ileostomy/Ileal Conduit: {YES / NO:} Date of Last BM: Intake/Output Summary (Last 24 hours) at 07/14/2024 0534 Last data filed at 07/14/2024 0410 Gross per 24 hour Intake 3383.11 ml Output 1300 ml Net 2083.11 ml I/O last 3 completed shifts: In: 5151.5 [P.O.:1640; I.V.:3417.9; IV Piggyback:93.6] Out: 1600 [Urine:1600] Safety Concerns: { REFUGIO Safety Concerns:455567393} Impairments/Disabilities: {[facility] Impairments/Disabilities:666625 273} Nutrition Therapy: Current Nutrition Therapy: { REFUGIO Diet List:265391818} Routes of Feeding: {CHP DME Other Feedings:686359395} Liquids: {Department Sales Manager liquid thickness:82897} Daily Fluid Restriction: {CHP DME Yes amt example:068334334} Last Modified Barium Swallow with Video (Video Swallowing Test): {Done Not Done Date:} Treatments at the Time of Hospital Discharge: Respiratory Treatments: Oxygen Therapy: {Therapy; copd oxygen:28136} Ventilator: { CC Vent List:484396670} Rehab Therapies: {THERAPEUTIC INTERVENTION:6331528042} Weight Bearing Status/Restrictions: { CC Weight Bearin} Other Medical Equipment (for information only, NOT a DME order): {EQUIPMENT:379471342} Other Treatments: Patient's personal belongings (please select all that are sent with patient): {CHP DME Belongings:895618565} RN SIGNATURE: {Esignature:288339478} CASE MANAGEMENT/SOCIAL WORK SECTION Inpatient Status Date: Readmission Risk Assessment Score: [facility] RISK OF UNPLANNED READMISSION 2.0 12 Total Score Discharging to Facility/ Agency Name: Address: Phone: Fax: Dialysis Facility (if applicable) Name: Address: Dialysis Schedule: Phone: Fax: Waste Water Treatment Plant Operator/Digital Marketer signature: {Esignature:948073738} PHYSICIAN SECTION Prognosis: {Prognosis:3206658597} Condition at Discharge: { Patient Condition:110593872} Rehab Potential (if transferring to Rehab): {Prognosis:6560523639} Recommended Labs or Other Treatments After Discharge: Physician Certification: I certify the above information and transfer of Ever Palmer is necessary for the continuing treatment of the diagnosis listed and that she requires {Admit to Appropriate Level of Care:05309} for {GREATER/LESS:427975069} 30 days. Update Admission H&P: {CHP DME Changes in HandP:341070733} PHYSICIAN SIGNATURE: The following attachments cannot be sent through Care Everywhere.UTI (Urinary Tract Infection): Female ([place] Korean)Cephalexin Oral Capsule (CEPHALEXIN - ORAL) ([place] Korean)documented in this encounter [facility] 07-14-2024 Hospital course Narrative Images from the original note were not included. [address], [address] Discharge Summary NAME: Ever Palmer : 1940 [...] will report to the ED and/or contact [facility] for immediate evaluation. Teach back method [...] Your Medications These medications were sent to [facility] [place] [address] [facility] - P [phone] - F [phone] [address] cephALEXin 500 MG capsule Send Copies to: [...] declined. ELIZABETH/ARB in CHF: N/A ASA in NE: N/A Statin in NE: N/A Statin in CVA: N/A Antiplatelet in CVA: N/A Total time spent on discharge services: 45 minutes Including the following activities: Evaluation and Management of patient Discussion with patient and/or surrogate about current care plan Coordination with Case Management and/or Digital Marketer Coordination of care with Consultants (if applicable) Coordination of care with Receiving Facility Physician (if applicable) Completion of DME forms (if applicable) Preparation of Discharge Summary Preparation of Medication Reconciliation Preparation of Discharge Prescriptions Please note that this chart was generated using voice recognition Risk I/O dictation software. Although every effort was made to ensure the accuracy of this automated partner alliance manager, some errors in partner alliance manager may have occurred. Victor M Ny MD 07/14/2024 12:24 PM documented in this encounter [facility] 03-26-2024 Hospital Discharge instructions Shabnam Baxter MD - 03/26/2024 6:15 PM EST Continue current medications as prescribed. Keflex as directed until complete. Follow-up with your primary care provider for reevaluation tomorrow as scheduled. Follow-up with neurology I did speak with the neurologist at [facility] they would be happy to see you but you may follow-up at neurology with [facility] send you been seen before for the same issue there. Please return immediately should you develop any severe headaches or any other acute concerns The following attachments cannot be sent through Care Everywhere.Altered Mental Status (South Korean)documented in this encounter [facility] 03-26-2024 Note ADDENDUM: Results were reported to [...] Alfonso MD 03/26/24 Edited Result - FINAL [facility] 02-17-2024 Note 1. Interval mild pro gression of L5 superior endplate fracture with 20% height loss. 2. Multilevel lumbar spondylosis. [facility] 01-21-2024 Hospital Discharge instructions Shabnam Baxter MD - 01/21/2024 4:50 PM EST Continue current medications as prescribed. Use Center place of Tylenol for pain not controlled with Tylenol. Otym-uoy-btsomuf product such as IcyHot Rachel balm Biofreeze or similar. Heat or ice for 5 to 10-minute intervals as desired for comfort. Follow-up with your primary care provider in 2 to 3 days for recheck. Please return immediately should develop any worsening symptoms or any other acute concerns The following attachments cannot be sent through Care Everywhere.Back: Strain (South Korean)documented in this encounter [facility] 12-20-2023 History of Present illness Narrative [facility] Outpatient Physical Therapy Daily Note Patient: Ever Palmer : 1940 CSN #: [id number] Referring Physician: Molina Ramos DO Date: 12/20/2023 [...] Exercise 3: retractions/LAE bTB x15, BTB palloff [id number] ea Exercise 5: ASU/LSU x15 ea Exercise [...] able to complete 5 sit/stands with no staff sonographer and no LOB to improve functional strength.-progressing Maintainer Operator Goals Time Frame for Maintainer Operator Goals : 6 weeks Longterm Goal 1: Patient to be independent and compliant with HEP.-progressing Longterm Goal 2: Patient to have improved core and B hip strength >/=4/5 grossly for improved lumbar stability.-met Maintainer Operator Goal 3: Patient to have improved B shoulder strength >/=4/5 grossly all planes for improved postural control.-met Longterm Goal 4: Patient to report ability to stand/walk >/=15minutes with no increase in back pain and no fatigue to improve endurance and return to PLOF.-met Minutes Tracking: Time In: 1318 Time Out: 1410 Minutes: 52 Moraima Dela Cruz, DARIO Date: 12/20/2023 documented in this encounter [facility] 12-17-2023 History of Present illness Narrative [facility] Outpatient Physical Therapy Daily Note Patient: Ever Palmer : 1940 CSN #: [id number] Referring Physician: Molina Ramos DO Date: 12/17/2023 [...] palloff ea - no palloff press Exercise 5: [...] able to complete 5 sit/stands with no staff sonographer and no LOB to improve functional strength.-progressing Maintainer Operator Goals Time Frame for Maintainer Operator Goals : 6 weeks Longterm Goal 1: Patient to be independent and compliant with HEP.-progressing Longterm Goal 2: Patient to have improved core and B hip strength >/=4/5 grossly for improved lumbar stability.-met Longterm Goal 3: Patient to have improved B shoulder strength >/=4/5 grossly all planes for improved postural control.-met Longterm Goal 4: Patient to report ability to stand/walk >/=15minutes with no increase in back pain and no fatigue to improve endurance and return to PLOF.-met Minutes Tracking: Time In: 1301 Time Out: 1348 Minutes: 47 Timed Code Treatment Minutes: 46 Minutes Dario Ruiz PT, DPT Date: 12/17/2023 documented in this encounter [facility] 12-06-2023 History of Present illness Narrative [facility] Outpatient Physical Therapy Daily Note Patient: Ever Palmer : 1940 CSN #: [id number] Referring Physician: Molina Ramos DO Date: 12/06/2023 [...] Exercise 3: retractions/LAE bTB x15, GTB palloff [id number] ea - no palloff press Exercise 4: [...] able to complete 5 sit/stands with no staff sonographer and no LOB to improve functional strength.-progressing Longterm Goals Time Frame for Longterm Goals : 6 weeks Maintainer Operator Goal 1: Patient to be independent and compliant with HEP.-progressing Maintainer Operator Goal 2: Patient to have improved core and B hip strength >/=4/5 grossly for improved lumbar stability.-met Maintainer Operator Goal 3: Patient to have improved B shoulder strength >/=4/5 grossly all planes for improved postural control.-progressing Maintainer Operator Goal 4: Patient to report ability to stand/walk >/=15minutes with no increase in back pain and no fatigue to improve endurance and return to PLOF.-met Minutes Tracking: Time In: 1317 Time Out: 1400 Minutes: 43 Timed Code Treatment Minutes: 41 Minutes Quincy Kumar PTA Date: 12/06/2023 documented in this encounter [facility] 12-03-2023 History of Present illness Narrative [facility] Outpatient Physical Therapy Daily Note Patient: Ever Palmer : 1940 CSN #: [id number] Referring Physician: Molina Ramos DO Date: 12/03/2023 [...] Exercise 3: retractions/LAE bTB x15, GTB palloff [id number] ea - no palloff press Exercise 6: [...] able to complete 5 sit/stands with no staff sonographer and no LOB to improve functional strength.-progressing Longterm Goals Time Frame for Maintainer Operator Goals : 6 weeks Maintainer Operator Goal 1: Patient to be independent and compliant with HEP.-progressing Longterm Goal 2: Patient to have improved core and B hip strength >/=4/5 grossly for improved lumbar stability.-met Maintainer Operator Goal 3: Patient to have improved B shoulder strength >/=4/5 grossly all planes for improved postural control.-progressing Maintainer Operator Goal 4: Patient to report ability to stand/walk >/=15minutes with no increase in back pain and no fatigue to improve endurance and return to PLOF.-met Minutes Tracking: Time In: 1303 Time Out: 1344 Minutes: 41 Moraima Dela Cruz, SPECIAL FORCES WEAPONS SERGEANT Date: 12/03/2023 documented in this encounter [facility] 11-29-2023 History of Present illness Narrative [facility] Outpatient Physical Therapy Daily Note Patient: Ever Palmer : 1940 CSN #: [id number] Referring Physician: Molina Ramos DO Date: 11/29/2023 [...] Exercise 3: retractions/LAE bTB x15, GTB palloff [id number] ea - no palloff press Exercise 4: [...] quickly. Continue as pt tolerates. [place] Back Pain Disability Scale Get out of [...] heavy suitcase: Unable to do [place] Total Score: 59 Current Total Score: 59 [...] able to complete 5 sit/stands with no staff sonographer and no LOB to improve functional strength.-progressing Longterm Goals Time Frame for Longterm Goals : 6 weeks Longterm Goal 1: Patient to be independent and compliant with HEP.-progressing Maintainer Operator Goal 2: Patient to have improved core and B hip strength >/=4/5 grossly for improved lumbar stability.-met Longterm Goal 3: Patient to have improved B shoulder strength >/=4/5 grossly all planes for improved postural control.-progressing Longterm Goal 4: Patient to report ability to stand/walk >/=15minutes with no increase in back pain and no fatigue to improve endurance and return to PLOF.-met Minutes Tracking: Time In: 1403 Time Out: 1446 Minutes: 43 Moraima Dela Cruz, SPECIAL [employer] WE[employer] SERGEANT Date: 11/29/2023 documented in this encounter [facility] 11-26-2023 History of Present illness Narrative [facility] Outpatient Physical Therapy Daily Note Patient: Ever Palmer : 1940 CSN #: [id number] Referring Physician: Molina Ramos DO Date: 11/26/2023 [...] able to complete 5 sit/stands with no staff sonographer and no LOB to improve functional strength.-progressing Longterm Goals Time Frame for Longterm Goals : 6 weeks Longterm Goal 1: Patient to be independent and compliant with HEP.-progressing Maintainer Operator Goal 2: Patient to have improved core and B hip strength >/=4/5 grossly for improved lumbar stability.-met Longterm Goal 3: Patient to have improved B shoulder strength >/=4/5 grossly all planes for improved postural control.-progressing Maintainer Operator Goal 4: Patient to report ability to stand/walk >/=15minutes with no increase in back pain and no fatigue to improve endurance and return to PLOF.-met Minutes Tracking: Time In: 1018 Time Out: 1100 Minutes: 42 Moraima Dela Cruz PTA Date: 11/26/2023 documented [facility] [facility] 11[facility]24-2023 History of Present illness Narrative [facility] Outpatient Physical Therapy Daily Note Patient: Ever Palmer : 1940 CSN #: [id number] Referring Physician: Molina Ramos DO Date: 11/24/2023 [...] Exercise 3: retractions/LAE bTB x15, GTB palloff [id number] ea - no palloff press Exercise 5: [...] able to complete 5 sit/stands with no staff sonographer and no LOB to improve functional strength.-progressing Maintainer Operator Goals Time Frame for Maintainer Operator Goals : 6 weeks Maintainer Operator Goal 1: Patient to be independent and compliant with HEP.-progressing Longterm Goal 2: Patient to have improved core and B hip strength >/=4/5 grossly for improved lumbar stability.-met Maintainer Operator Goal 3: Patient to have improved B shoulder strength >/=4/5 grossly all planes for improved postural control.-progressing Longterm Goal 4: Patient to report ability to stand/walk >/=15minutes with no increase in back pain and no fatigue to improve endurance and return to PLOF.-met Minutes Tracking: Time In: 1313 Time Out: 1356 Minutes: 43 Moraima Dela Cruz, [employer] WEAPONS SERGEANT Date: 11/24/2023 documented in this encounter [facility] 11-12-2023 History of Present illness Narrative [facility] Outpatient Physical Therapy Daily Note Patient: Ever Palmer : 1940 CSN #: [id number] Referring Physician: Molina Ramos DO Date: 11/12/2023 [...] Exercise 3: retractions/LAE GTB x15, GTB palloff [id number] ea Exercise 5: ASU/LSU x10 ea Exercise [...] able to complete 5 sit/stands with no staff sonographer and no LOB to improve functional strength.-progressing Longterm Goals Time Frame for Maintainer Operator Goals : 6 weeks Longterm Goal 1: Patient to be independent and compliant with HEP.-progressing Longterm Goal 2: Patient to have improved core and B hip strength >/=4/5 grossly for improved lumbar stability.-progressing Maintainer Operator Goal 3: Patient to have improved B shoulder strength >/=4/5 grossly all planes for improved postural control.-progressing Maintainer Operator Goal 4: Patient to report ability to stand/walk >/=15minutes with no increase in back pain and no fatigue to improve endurance and return to PLOF.-progressing Minutes Tracking: Time In: 1301 Time Out: 1345 Minutes: 44 Moraima Dela Cruz PTA Date: 11/12/2023 documented in this encounter [facility] 11-08-2023 History of Present illness Narrative [facility] Outpatient Physical Therapy Daily Note Patient: Ever Palmer : 1940 CSN #: [id number] Referring Physician: Molina Ramos DO Date: 11/08/2023 [...] Exercise 3: retractions/LAE GTB x15, GTB palloff [id number] ea Exercise 4: Sink exercises x15 ea [...] able to complete 5 sit/stands with no staff sonographer and no LOB to improve functional strength.-progressing Maintainer Operator Goals Time Frame for Maintainer Operator Goals : 6 weeks Maintainer Operator Goal 1: Patient to be independent and compliant with HEP. Maintainer Operator Goal 2: Patient to have improved core and B hip strength >/=4/5 grossly for improved lumbar stability. Maintainer Operator Goal 3: Patient to have improved B shoulder strength >/=4/5 grossly all planes for improved postural control. Longterm Goal 4: Patient to report ability to stand/walk >/=15minutes with no increase in back pain and no fatigue to improve endurance and return to PLOF. Minutes Tracking: Time In: 1316 Time Out: 1408 Minutes: 52 Moraima Dela Cruz, [employer] SERGEANT Date: 11/08/2023 documented in this encounter [facility] 2023 History of Present illness Narrative [facility] Outpatient Physical Therapy Daily Note Patient: Ever Palmer : 1940 CSN #: [id number] Referring Physician: Molina Ramos DO Date: 2023 [...] able to complete 5 sit/stands with no staff sonographer and no LOB to improve functional strength. Maintainer Operator Goals Time Frame for Maintainer Operator Goals : 6 weeks Maintainer Operator Goal 1: Patient to be independent and compliant with HEP. Maintainer Operator Goal 2: Patient to have improved core and B hip strength >/=4/5 grossly for improved lumbar stability. Maintainer Operator Goal 3: Patient to have improved B shoulder strength >/=4/5 grossly all planes for improved postural control. Longterm Goal 4: Patient to report ability to stand/walk >/=15minutes with no increase in back pain and no fatigue to improve endurance and return to PLOF. Minutes Tracking: Time In: 1316 Time Out: 1400 Minutes: 44 Moraima Jose De Jesus, [employer] SERGEANT Date: 2023 documented in this encounter [facility] 10-21-2021 Hospital Discharge instructions Eliecer Burris MD [...] be sent through Care Everywhere.Blood Pressure: Elevated ([place] Korean)documented in this encounter [facility] Work Phone: 10-05-2021 Hospital Discharge instructions Eliecer Burris MD - 10/05/2021 5:27 PM EDT Please follow-up with your primary care physician tomorrow. The neurologist has recommended that you have an echocardiogram; this will need to be scheduled by your primary care physician. The following attachments cannot be sent through Care Everywhere.UTI (Urinary Tract Infection): Female ([place] Korean)Dysarthria: General Info (South Korean)documented in this encounter [facility] [employer] Phone: 03-04-2021 Note [facility] Vascular Lower Extremities DVT Study Procedure Patient Name SPENCER Date of Study 03/03/2021 EVER Mckay Date of 1940 Gender Female Age 80 year(s) Race Room Number Corporate ID [id number] # Patient Acct [id number] # MR # [id number] Mental Health Unit Lead Psychologist Katie Jackson RVT Interpreting Physician Alissa Marx Referring Referring Physician Alissa Marx Nurse Practitioner Additional Comments REsults were reported to Dr. Marx's office 03/03/2021 @ 2218. Procedure Type of Study: Veins: Lower Extremities [...] + +--- ------+------+ (more content not included)... [facility] 01-21-2021 History of Present illness Narrative [facility] Outpatient Physical Therapy Daily Note Patient: Ever Palmer : 1940 CSN #: [id number] Referring Practitioner: Molina Ramos DO Referral Date [...] decrease stress on cervical spine - Met assisted goals Time Frame for termite control servicer goals : 6 weeks termite control servicer goal 1: Pt will be independent and compliant with HEP. termite control servicer goal 2: Pt will improve L cervical rotation to be within 5* of R cervical rotation to improve functional mobility. termite control servicer goal 3: Pt will perform TUG in </= 10 seconds to decrease fall risk.- progressing termite control servicer goal 4: Pt will demonstrate ability to perform 5 sit to stands with hands on thighs to improve LE functional strength. Minutes Tracking: Time In: 930 Time Out: 1030 Minutes: 59 Timed Code Treatment Minutes: 43 Minutes Quincy Kumar, [employer] SERGEANT Date: 01/21/2021 documented in this encounter [employer] Phone: 01-13-2021 History of Present illness Narrative [facility] Outpatient Physical Therapy Daily Note Patient: Ever Palmer : 1940 CSN #: [id number] Referring Practitioner: Molina Ramos DO Referral Date [...] stress on cervical spine - Met termite control servicer goals Time Frame for termite control servicer goals : 6 weeks termite control servicer goal 1: Pt will be independent and compliant with HEP. assisted goal 2: Pt will improve L cervical rotation to be within 5* of R cervical rotation to improve functional mobility. termite control servicer goal 3: Pt will perform TUG in </= 10 seconds to decrease fall risk.- progressing assisted goal 4: Pt will demonstrate ability to perform 5 sit to stands with hands on thighs to improve LE functional strength. Minutes Tracking: Time In: 1045 Time Out: 1139 Minutes: 54 Timed Code Treatment Minutes: 53 Minutes Ford Marsh Date: 01/13/2021 [facility]: 01-06-2021 History of Present illness Narrative [facility] Outpatient Physical Therapy Daily Note Patient: Ever Palmer : 1940 CSN #: [id number] Referring Practitioner: Molina Ramos DO Referral Date [...] to stands with hands on thighs, meeting care home goal. Pt performs TUG x2, with best [...] decrease stress on cervical spine - Met assisted goals Time Frame for termite control servicer goals : 6 weeks termite control servicer goal 1: Pt will be independent and compliant with HEP. assisted goal 2: Pt will improve L cervical rotation to be within 5* of R cervical rotation to improve functional mobility. termite control servicer goal 3: Pt will perform TUG in </= 10 seconds to decrease fall risk.- progressing assisted goal 4: Pt will demonstrate ability to perform 5 sit to stands with hands on thighs to improve LE functional strength. Minutes Tracking: Time In: 1052 Time Out: 1155 Minutes: 63 Timed Code Treatment Minutes: 60 Minutes Darlin Ferrer PT, DPT Date: 01/06/2021 documented in this encounter [employer] Phone: 12-24-2020 History of Present illness Narrative [facility] Outpatient Physical Therapy Daily Note Patient: Ever Palmer : 1940 CSN #: [id number] Referring Practitioner: Molina Ramos DO Referral Date [...] decrease stress on cervical spine - Met assisted goals Time Frame for termite control servicer goals : 6 weeks termite control servicer goal 1: Pt will be independent and compliant with HEP. termite control servicer goal 2: Pt will improve L cervical rotation to be within 5* of R cervical rotation to improve functional mobility. termite control servicer goal 3: Pt will perform TUG in </= 10 seconds to decrease fall risk. termite control servicer goal 4: Pt will demonstrate ability to perform 5 sit to stands with hands on thighs to improve LE functional strength. Minutes Tracking: Time In: 1015 Time Out: 1117 Minutes: 62 Timed Code Treatment Minutes: 62 Minutes Delores Palma PT, DPT Date: 12/24/2020 documented in this encounter [employer] Phone: 12-23-2020 History of Present illness Narrative [facility] Outpatient Physical Therapy Daily Note Patient: Ever Palmer : 1940 CSN #: [id number] Referring Practitioner: Molina Ramos DO Referral Date [...] to decrease stress on cervical spine. termite control servicer goals Time Frame for termite control servicer goals : 6 weeks assisted goal 1: Pt will be independent and compliant with HEP. termite control servicer goal 2: Pt will improve L cervical rotation to be within 5* of R cervical rotation to improve functional mobility. termite control servicer goal 3: Pt will perform TUG in </= 10 seconds to decrease fall risk. assisted goal 4: Pt will demonstrate ability to perform 5 sit to stands with hands on thighs to improve LE functional strength. Minutes Tracking: Time In: 1014 Time Out: 1115 Minutes: 61 Timed Code Treatment Minutes: 59 Minutes Quincy Kumar PTA Date: 12/23/2020 documented in this encounter [employer] Phone: 12-17-2020 History of Present illness Narrative [facility] Outpatient Physical Therapy Daily Note Patient: Ever Palmer : 1940 CSN #: [id number] Referring Practitioner: Molina Ramos DO Referral Date [...] to decrease stress on cervical spine. termite control servicer goals Time Frame for termite control servicer goals : 6 weeks termite control servicer goal 1: Pt will be independent and compliant with HEP. assisted goal 2: Pt will improve L cervical rotation to be within 5* of R cervical rotation to improve functional mobility. assisted goal 3: Pt will perform TUG in </= 10 seconds to decrease fall risk. assisted goal 4: Pt will demonstrate ability to perform 5 sit to stands with hands on thighs to improve LE functional strength. 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 Type of occupation: [email or web address] Additional Comments: pt reported stays in apartment [...] Plan Times per week: 2-3x/wk AM-PAC Score [facility] Inpatient Daily Activity Raw Score: 20 (09/03/201452) [facility] Inpatient ADL T-Scale Score : 42.03 (09/03/201452) ADL Inpatient [facility] 0-100% Score: 38.32 (09/03/201452) ADL Inpatient [facility] G-Code Modifier : CJ (09/03/201452) Goals Short [...] Minutes Glenny Rabago OTR/L Physical Therapy Facility/Department: [address] Initial Assessment NAME: Ever Palmer : [...] Ambulation Assistance: Independent Transfer Assistance: Independent Active Journeyman Electrician: Yes Mode of Transportation: Car 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 Speech Language Pathology Facility/Department: [address] Initial Speech/Language/Cognitive Assessment NAME: Ever Palmer [...] continued therapy at this time. 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 female with pmh of htn, dmii, ashtma, and TIA aphasia 04/2020 who presents from [facility] Sales Consultant after undergoing elective outpatient diagnostic angiogram to [...] King Monteiro MD Neuro Critical Care Pager [phone] 09/03/2020 8:58 AM Associated attestation - Jerica [...] violent Suraj Peters MD PGY-3 Neurology Resident [address] [place] [address] documented in this encounter [employer] Phone: 09-03-2020 Hospital Discharge instructions King Monteiro [...] your doctor if you can take an sezl-ivv-cxtuonh medicine. Care of the catheter site For [...] Where can you learn more? Go to [email or web address] and sign in to your [employer] account. Enter O249 in the Search Health Information box to learn more about Brain Angiogram: What to Expect at Home. If you do not have an account, please click on the Sign Up Now link. Current as of: December 13, 2019 Content Version: 12.9 [employer]. Care instructions adapted under license by [employer]. If you have questions about a medical condition or this instruction, always ask your healthcare professional. [employer] disclaims any warranty or liability for your use of this information. Learning About Thrombolytic Treatment for Stroke What is thrombolytic treatment? Thrombolytics are medicines that dissolve blood clots. Most strokes are caused by a blood clot. This kind of stroke is called an ischemic (say flp-RWL-gbag ) stroke. For an ischemic stroke, this [...] Where can you learn more? Go to [email or web address] and sign in to your [employer] account. Enter E575 in the Search Health Information box to learn more about Learning About Thrombolytic Treatment for Stroke. If you do not have an account, please click on the Sign Up Now link. Current as of: October 09, 2019 Content Version: 12.9 [employer]. Care instructions adapted under license by [employer]. If you have questions about a medical condition or this instruction, always ask your healthcare professional. [employer] disclaims any warranty or liability for your use of this information. documented in this encounter [employer] Work Phone: 09-03-2020 Hospital Discharge instructions Chandrika [...] your doctor if you can take an kajr-cwn-muttkpg medicine. Care of the catheter site For [...] Where can you learn more? Go to [email or web address] and sign in to your [employer] account. Enter O249 in the Search Health Information box to learn more about Brain Angiogram: What to Expect at Home. If you do not have an account, please click on the Sign Up Now link. Current as of: December 13, 2019 Content Version: 01.16 [employer]. Care instructions adapted under license by [employer]. If you have questions about a medical condition or this instruction, always ask your healthcare professional. [employer] disclaims any warranty or liability for your use of this information. Learning About Thrombolytic Treatment for Stroke What is thrombolytic treatment? Thrombolytics are medicines that dissolve blood clots. Most strokes are caused by a blood clot. This kind of stroke is called an ischemic (say igh-MSD-bxkx ) stroke. For an ischemic stroke, this [...] Where can you learn more? Go to [email or web address] and sign in to your [employer] account. Enter E575 in the Search Health Information box to learn more about Learning About Thrombolytic Treatment for Stroke. If you do not have an account, please click on the Sign Up Now link. Current as of: October 09, 2019 Content Version: 12.9 [employer]. Care instructions adapted under license by [employer]. If you have questions about a medical condition or this instruction, always ask your healthcare professional. [employer] disclaims any warranty or liability for your use of this information. documented in this encounter [employer] Phone: 09-02-2020 History of Present illness Narrative Patient admitted, consent signed and questions answered. Patient ready for procedure. Call light to reach with side rails up 2 of 2.Family at bedside with patient. documented in this encounter [employer] Phone: Evaluation note Diagnosis Nausea vomiting and diarrhea- Primary Nausea with vomiting Other complicated headache syndrome Dehydration documented in this encounter [employer] Phone: evaluation note* Diagnosis Altered mental status, unspecified altered mental status type- Primary Stroke-like symptoms Other symptoms involving nervous and musculoskeletal systems Received intravenous tissue plasminogen activator (tPA) in emergency department documented in this encounter [employer] Phone: evaluation note* Diagnosis Cerebral aneurysm Cerebral aneurysm, nonruptured TGA (transient global amnesia) Transient global amnesia documented in this encounter [employer] Phone: evaluation note* Diagnosis Left leg swelling documented in this encounter [employer] Phone: evaluation note* Diagnosis Dysarthria- Primary Acute cystitis without hematuria Acute cystitis documented in this encounter [employer] Phone: evaluation note* Diagnosis Breast cancer screening by mammogram documented in this encounter [employer] Phone: evaluation note* Diagnosis Pain Generalized pain Swelling Edema [facility] Phone: evaluation note* Diagnosis Elevated blood pressure reading- Primary Elevated blood pressure reading without diagnosis of hypertension documented in this [facility]: evaluation note* Diagnosis Strain of lumbar region, initial encounter- Primary [facility] Diagnosis Somatic dysfunction of lumbar region Nonallopathic lesion of lumbar region, not elsewhere classified Lumbar radiculopathy Thoracic or lumbosacral neuritis or radiculitis, unspecified documented [facility] this encounter [facility]* Diagnosis Altered mental status, unspecified altered mental status type- Primary Abnormal CT scan Other nonspecific (abnormal) findings on radiological and other examinations of body structure Urinary tract infection without hematuria, site unspecified [facility]* Diagnosis Complicated UTI (urinary tract infection)- Primary Urinary tract infection, site not specified Transient alteration of awareness Right ear pain Otalgia, unspecified Complicated UTI (urinary tract infection) Urinary tract infection, site not specified History of TIA (transient ischemic attack) Transient ischemic attack (TIA), and cerebral infarction without residual deficits Type 2 diabetes mellitus, without long-term current use of insulin ([facility]) TGA (transient global amnesia) Transient global amnesia Hypertension Unspecified essential hypertension [facility]* Diagnosis Lower extremity edema Edema Lightheaded [...] site not specified documented [facility] this encounter [facility]* Diagnosis Thoracic spondylosis without myelopathy documented [facility]* Diagnosis General weakness- Primary Other malaise and fatigue Neck strain, initial encounter documented in this encounter [facility] Discharge instructions* Attachments The following attachments cannot be sent through Care Everywhere. * Dehydration (South Korean) * Nausea and Vomiting ([place] Korean) [facility]: Reason for Referral Status Reason Specialty Diagnoses / Procedures Referre d By Contact Referred To Contact Open EKG Diagnoses TIA (transient ischemic attack) Procedures Halfway Continuous Cardiac Event Monitor Eunice Guerra, FRUIT PRESS OPERATOR - TAILMAN [address] [place] [address] M[address] Ekg [address] [place] [address] Status Reason Specialty Diagnoses / Procedures Referre d By Contact Referred To Contact Closed Radiology Diagnoses Cerebral aneurysm Procedures IR ANGIOGRAM CAROTID CEREBRAL BILATERAL Kristina Lomax MD [address] [place] [address] Specialty Diagnoses / Procedures Referred By Contac t Referred To Contact Radiology Diagnoses Left leg swelling Procedures VL DUP LOWER EXTREMITY VENOUS LEFT Alissa Marx MD [address] [place] [address] Referral ID Status Reason Start Date Expiration Date Visits Re quested Visits Authorized [id number] Open 03/03/2021 03/03/2022 1 1 Specialty Diagnoses / Procedures Referred By Contac t Referred To Contact Diagnoses Dysarthria Procedures Echo 2d w doppler w color w contrast Eliecer Burris MD [address] [place] [address] Referral ID Status Reason Start Date Expiration Date Visits Re quested Visits Authorized [id number] Open 10/06/2021 10/06/2022 1 1 Specialty Diagnoses / Procedures Referred By Contac t Referred To Contact Radiology Diagnoses Breast cancer screening by mammogram Procedures [facility] ESME DIGITAL SCREEN SELF REFERRAL W OR WO CAD BILATERAL Molina Ramos, DO [address] [place] [address] Referral ID Status Reason Start Date Expiration Date Visits Re quested Visits Authorized [id number] Closed 10/10/2021 10/10/2022 1 1 Specialty Diagnoses / Procedures Referred By Contac t Referred To Contact Radiology Diagnoses Somatic dysfunction of lumbar region Lumbar radiculopathy Procedures CT LUMBAR SPINE WO CONTRAST Sharath Garcia DC [address] [place] [address] Referral ID Status Reason Start Date Expiration Date V isits Requested Visits Authorized [id number] Not Required - RTA 02/15/2024 02/14/2025 1 1 Hospital Course * Eunice Guerra, FRUIT PRESS OPERATOR - TAILMAN - 04/19/2020 12:00 PM EST Discharge Summary [...] 04/17/2020 2d Echo Ltd Result Date: 04/18/2020 [facility] Transthoracic Echocardiography Report (TTE) Patient Name SPENCER Date of Study 04/18/2020 EVER Mckay Date of 1940 Gender Female Age 79 year(s) Race Room Number 0315 Height: 63 inch, 160.02 cm Corporate ID [id number] Weight: 163 pounds, 73.9 kg # Patient [id number] BSA: 1.77 m^2 BMI: 28.87 # kg/m^2 MR # [id number] Mental Health Unit Lead Psychologist Rylee Verma Interpreting Physician Alissa Marx Referring Nurse Practitioner Interpreting Referring Physician Alissa Marx Type of Study TTE procedure:2D Echocardiogram, Bubble Study. Procedure Date Date: 04/18/2020 Start: 02:58 PM Study Location: [facility] / Tech. Comments: TIA, Bubble study PMHX; [...] Discharge Medications: Ever Palmer Home Medication Instructions ANITA:[id number] Printed on:04/19/20 1209 Medication Information amLODIPine (NORVASC) [...] applicable) ELIZABETH/ARB in CHF: NA Statin in NE: NA ASA in NE: NA Statin in CVA: NA Antiplatelet in CVA: NA Total time spent on discharge services: 35 minutes Including the following activities: Evaluation and Management of patient Discussion with patient and/or surrogate about current care plan Coordination with Case Management and/or Digital Marketer Coordination of care with Consultants (if applicable) Coordination of care with Receiving Facility Physician (if applicable) Completion of DME forms (if applicable) Preparation of Discharge Summary Preparation of Medication Reconciliation Preparation of Discharge Prescriptions Signed: Eunice Guerra APRN, CONCESSION ATTENDANT-C 04/19/2020, 12:09 PM Associated attestation - Marcelino Clifford MD - 04/19/2020 12:57 PM EST Marcelino Clifford M.D. Discharge Summary Attestation 04/19/20 I personally evaluated and examined the patient obje-bm-mteo in conjunction with the PA/CONCESSION ATTENDANT and agree with the management and dispostition of the patient. Please see the PA/CONCESSION ATTENDANT's note for full details.My eason findings are: [...] care plan Coordination with Case Management and/or Digital Marketer Coordination of care with Consultants (if applicable) Coordination of care with Receiving Facility Physician (if applicable) Completion of DME forms (if applicable) Preparation of Discharge Summary Preparation of Medication Reconciliation Preparation of Discharge Prescriptions Marcelino Clifford M.D. 04/19/2020 12:57 PM * Eunice Guerra, FRUIT PRESS OPERATOR - TAILMAN - 04/18/2020 6:33 PM EST Discharge Summary [...] 04/17/2020 2[facility] Result Date: 04/18/2020 [facility] Transthoracic Echocardiography Report (TTE) Patient Name SPENCER Date of Study 04/18/2020 EVER A Date of 1940 Gender Female Age 79 year(s) Race Room Number 0315 Height: 63 inch, 160.02 cm Corporate ID [id number] Weight: 163 pounds, 73.9 kg # Patient [id number] BSA: 1.77 m^2 BMI: 28.87 # kg/m^2 MR # [id number] Mental Health Unit Lead Psychologist BayronRylee Interpreting Physician Alissa Marx Fellow Referring Nurse Practitioner Interpreting Referring Physician Alissa Marx Fellow Type of Study TTE procedure:2D Echocardiogram, Bubble Study. Procedure Date Date: 04/18/2020 Start: 02:58 PM Study Location: [facility] History / Tech. Comments: TIA, Bubble study [...] Discharge Medications: Ever Palmer Home Medication Instructions ANITA:[id number] Printed on:04/18/20 6819 Medication Information aspirin 81 MG tablet Take [...] applicable) ELIZABETH/ARB in CHF: NA Statin in NE: NA ASA in NE: NA Statin in CVA: NA Antiplatelet in CVA: NA Total time spent on discharge services: 35 minutes Including the following activities: Evaluation and Management of patient Discussion with patient and/or surrogate about current care plan Coordination with Case Management and/or Digital Marketer Coordination of care with Consultants (if applicable) Coordination of care with Receiving Facility Physician (if applicable) Completion of DME forms (if applicable) Preparation of Discharge Summary Preparation of Medication Reconciliation Preparation of Discharge Prescriptions Signed: Eunice Guerra APRN, CONCESSION ATTENDANT-C 04/18/2020, 6:33 PM Associated attestation - Marcelino Clifford MD - 04/18/2020 7:30 PM EST Marcelino Clifford M.D. Discharge Summary Attestation 04/18/20 I personally evaluated and examined the patient [id number] in conjunction with the PA/CONCESSION ATTENDANT and agree with the management and dispostition of the patient. Please see the PA/CONCESSION ATTENDANT's note for full details.My eason findings are: [...] care plan Coordination with Case Management and/or Digital Marketer Coordination of care with Consultants (if applicable) [...] your doctor if you can take an peow-ypf-wddjuse medicine. If you think your pain medicine [...] or uneven pulse. After calling 911, the welding machine operator gas may tell you to chew 1 adult-strength [...] Where can you learn more? Go to [email or web address] and sign in to your [employer] account. Enter G817 in the Search Health Information box to learn more about Sedation for a Medical Procedure: Care Instructions. If you do not have an account, please click on the Sign Up Now link. [id number] [employer]. Care instructions adapted under license by [employer]. This care instruction is for use with your licensed healthcare professional. If you have questions about amedical condition or this instruction, always ask your healthcare professional. [employer] disclaims any warranty or liability for your use of this information. Content Version: 10.6.922314; Current as of: October 17, 2013 * Attachments The following attachments cannot be sent through Care Everywhere. * TIA (Transient Ischemic Attack) (South Korean) documented in this encounter* Instructions* Luis Enrique [...] sent through Care Everywhere. * Diet: DASH (South Korean) * Hypertension: General Info (South Korean) documented in this encounter History of Present Illness * Emi Avitia RN - 04/19/2020 12:55 PM EST Discharge instructions reviewed at this time. * Holly Rodriguez - 04/19/2020 12:47 PM EST Patient instructed on extended site monitor indications and use. Diary sent with [...] CAM to be placed Eunice Guerra APRN, CONCESSION ATTENDANT-C Associated attestation - Marcelino Clifford MD - 04/19/2020 12:56 PM EST Marcelino Clifford M.D. PA / CONCESSION ATTENDANT Attestation Note I personally evaluated and examined the patient [id number] in conjunction with the PA/CONCESSION ATTENDANT and agree with the management and dispostition of the patient. Please see the PA/CONCESSION ATTENDANT's note for full details.My eason findings are: [...] the assessment and plan as outlined by PA/CONCESSION ATTENDANT below TIA (transient ischemic attack) Echo with [...] - 04/18/2020 8:46 PM EST Call from centrifuge operator wanting to cancel patient discharge and plan for ALEKSANDRA tomorrow. [facility] come talk to patient [...] At this time patient IV removed to [facility] without complications. Patient was given tylenol [...] lives with her in her home in [place]. Pt states that she uses no [facility] or community services. 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 Pt drives and is able to get [...] Ambulation Assistance: Independent Transfer Assistance: Independent Active Journeyman Electrician: Yes Additional Comments: Pt reports she is independent to complete all ADLs and IADLs at [facility] without AD. Objective Vision: Impaired [...] ther ex, ADL training G-Code OutComes Score [facility] Score AM-[facility] Inpatient Daily Activity Raw Score: 21 (04/18/20 100) [facility] Inpatient ADL T-Scale Score : 44.27 [...] 9:19 AM EST Speech Language Pathology Facility/Department: [facility] Initial Speech/Language/Cognitive Assessment NAME: Ever [...] TIA (Transient Ischemic Attack) G45.9 Recommendations: Requires HOST COORDINATOR Intervention: No Duration/Frequency of Treatment: No further [...] on assessment and results. Manuel Will M.A., CCC-HOST COORDINATOR 04/18/2020 9:19 AM * Reno Gaffney RD, LD - 04/18/2020 8:31 AM EST Nutrition Assessment Type and Reason for Visit: Initial Nutrition Recommendations/Plan: Encourage healthier food choices Nutrition Assessment: Altered food and nutrition lab values r/t endocrine dysfunction, AEB some hypoglycemia with diabetes dx (on metformin captain cannery tender). 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 She can identify that those foods may [...] Discharge Planning: Too soon to determine Contact: [phone] * Tia Krueger PT - 04/18/2020 8:11 AM EST Physical Therapy Facility/Department: [facility] Initial Assessment NAME: Ever Palmer [...] 17 Tia Krueger PT * Eunice Guerra, FRUIT PRESS OPERATOR - TAILMAN - 04/18/2020 7:42 AM EST Progress Note [...] plan: Home later today Eunice Guerra APRN, CONCESSION ATTENDANT-C Associated attestation - Marcelino Clifford MD - 04/18/2020 5:38 PM EST Marcelino Clifford M.D. PA / CONCESSION ATTENDANT Attestation Note I personally evaluated and examined the patient zgiw-er-[id number] in conjunction with the PA/CONCESSION ATTENDANT and agree with the management and dispostition of the patient. Please see the PA/CONCESSION ATTENDANT's note for full details.My eason findings are: [...] the assessment and plan as outlined by PA/CONCESSION ATTENDANT below TIA (transient ischemic attack) Echo with [...] FoundDocuments on File Type Date Recorded Patient Soap Tender Expl anation ACP-Advance Directive ACP-Power of Aircraft Sales Representative Latest Code Status on File Code Status Date Activated Date Inactivated Comments Full Code 04/17/2020 8:35 PM Full Code 12/20/2017 2:38 PM 12/20/2017 5:29 PM Full Code 12/20/2017 12:46 PM 12/20/2017 2:38 PM Documents on File Type Date Recorded Patient Soap Tender Expl anation ACP-Advance Directive ACP-Power of Aircraft Sales Representative Latest Code Status on File Code Status [...] Documents on File Type Date Recorded Patient Soap Tender Expl anation ACP-Do Not Resuscitate 04/05/2023 1:36 [...] Nely Brickner Grandchild Secondary Decision Maker [phone] (Mobile) Healthcare Agents on File Name Relationship [...] Documents on File Type Date Recorded Patient Soap Tender Expl anation ACP-Do Not Resuscitate 04/05/2023 1:36 [...] CAROTID CEREBRAL BILATERAL Kristina Lomax MD [address] [facility] [address] [place] [address] [facility] [address] [place] [address] Specialty Diagnoses / Procedures Referred By Contac t Referred To Contact Radiology Diagnoses Left leg swelling Procedures VL DUP LOWER EXTREMITY VENOUS LEFT Alissa Marx MD [address] [place] [address] [place] [address] Referral ID Status Reason Start Date Expiration Date Visits Re quested Visits Authorized [id number] Open 03/03/2021 03/03/2022 1 1 Reason Comments [...] WO CAD BILATERAL Molina Ramos, DO [address] [place] [address] Referral ID Status Reason Start Date Expiration Date Visits Re quested Visits Authorized [id number] Closed 10/10/2021 10/10/2022 1 1 Reason Comments [...] SPINE WO CONTRAST Sharath Garcia DC [address] [place] [address] Referral ID Status Reason Start Date Expiration Date V isits Requested Visits Authorized [id number] Not Required - RTA 02/15/2024 02/14/2025 1 [...] tract infection) Victor M Ny MD [address] [place] [address] Phone: tel: fax: [facility] [address] [place] [address] Referral ID Status Reason Start Date Expiration Date Visits Re quested Visits Authorized [id number] 1 1 Reason Comments Aphasia Pt states [...] at [phone] (New Bag - Provider: Sara Sigala, [phone] (Rate/Dose Verify - Provider: FABIAN [...] Care Teams (unrecognized sec tion and content) Residential Sales Manager Relationship Specialty Start Date End Date Molina Ramos, DO [address] [place] [address], [place] [address] PCP - General 06/05/12 Residential Sales Manager Relationship Specialty Start Date End Date Molina Ramos DO [address] [place] [address], [place] [phone] PCP - General 06/05/12 Residential Sales Manager Relationship Specialty Start Date End Date Molina Ramos DO [address] [place] [address], [place] [phone] PCP - General 06/05/12 Residential Sales Manager Relationship Specialty Start Date End Date Molina Ramos DO [address] [place] [address], [place] [phone] PCP - General 06/05/12 Residential Sales Manager Relationship Specialty Start Date End Date Molina Ramos DO [address] [place] [address], [place] [address] PCP - General 06/05/12 Residential Sales Manager Relationship Specialty Start Date End Date Molina Ramos DO [address] [place] [address], [place] [phone] PCP - General 06/05/12 Residential Sales Manager Relationship Specialty Start Date End Date Molina Ramos DO [address] [place] [address], [place] [phone] PCP - General 06/05/12 Residential Sales Manager Relationship Specialty Start Date End Date Molina Ramos, DO [facility] [place] [address] PCP - General 06/05/12 Residential Sales Manager Relationship Specialty Start Date End Date Molina Ramos DO [address] [place] [address] PCP - General 06/05/12 Residential Sales Manager Relationship Specialty Start Date End Date Molina Ramos DO [facility] [place] [address] PCP - General 06/05/12 Residential Sales Manager Relationship Specialty Start Date End Date Molina Ramos DO [address] [place] [phone] PCP - General 06/05/12 Residential Sales Manager Relationship Specialty Start Date End Date Molina Ramos DO [address] [place] [phone] PCP - General 06/05/12 Residential Sales Manager Relationship Specialty Start Date End Date Molina Raoms DO [address] [place] [phone] PCP - General 06/05/12 Residential Sales Manager Relationship Specialty Start Date End Date Molina Ramos DO [address] [place] [address], [place] [address] PCP - General 06/05/12 Residential Sales Manager Relationship Specialty Start Date End Date Molina Ramos DO [address] [place] [phone] PCP - General 06/05/12 Residential Sales Manager Relationship Specialty Start Date End Date Molina Ramos DO [address] [place] [phone] PCP - General 06/05/12 Residential Sales Manager Relationship Specialty Start Date End Date Molina Ramos DO [address] [place] [phone] PCP - General 06/05/12 Residential Sales Manager Relationship Specialty Start Date End Date Molina Ramos DO [address] [place] [phone] PCP - General 06/05/12 Residential Sales Manager Relationship Specialty Start Date End Date Molina Ramos DO [address] [place] [phone] PCP - General 06/05/12 Residential Sales Manager Relationship Specialty Start Date End Date Molina Ramos DO [address] [place] [phone] PCP - General 06/05/12 Residential Sales Manager Relationship Specialty Start Date End Date Molina Ramos DO [address] [place] [phone] PCP - General 06/05/12 Residential Sales Manager Relationship Specialty Start Date End Date Molina Ramos DO [address] [place] [phone] PCP - General 06/05/12 Residential Sales Manager Relationship Specialty Start Date End Date Molina Ramos DO [address] [place] [phone] PCP - General 06/05/12 Residential Sales Manager Relationship Specialty Start Date End Date Sujatabridgett Molina DO Goldy [address] [place] [phone] PCP - General 06/05/12 Residential Sales Manager Relationship Specialty Start Date End Date Molina Ramos DO [address] [place] [phone] PCP - General 06/05/12 Residential Sales Manager Relationship Specialty Start Date End Date Molina Ramos DO [address] [place] [phone] PCP - General 06/05/12 INFORMATION SOURCE (unrecogn ized section and content) DATE CREATED AUTHOR 03/04/2021 [facility] DATE CREATED AUTHOR AUTHOR'S ORGANIZ ATION 09/03/2024 [facility] DATE CREATED AUTHOR AUTHOR'S ORGANIZ ATION 09/28/2024 [facility] FOR RECORDS PERTAINING TO PATIENTS WHO [...] BE BASED ON THE PRIMARY CLINICAL RECORDS. [employer] [facility]. provides no warranty or guarantee of the accuracy or completeness of information in this document.
--- NOTE | 2024-10-04 14:27 | PM.CN ---
Consult Note: HPI Data of Consult Patient: known to practice within the last 3 years Consult date: 10/04/24 Requesting Physician: Symone Bales NP Primary Care Provider: RICHIE RAMOS DO Family Provider: RICHIE RAMOS DO Consult Narrative Reason for consult: f/u Narrative: Danielle Ash an 83 year old female presents for evaluation of chronic middle and low back pain. has failed to benefit from >6 weeks of PT/provider guided HEP, heat, ice, tylenol, NSAIDs. pt utilizes baclofen, gabapentin 100mg BID, and tylenol with mild relief. since last visit underwent bilateral T9-10 T10-11 MBB #1 and #2 with >80% improvement in pain and functional ability while anesthetized, preop pain up to 10/10 post op pain 0/10. cc:: CC: Symone Bales NP Review of Systems ROS Musculoskeletal Reports: back pain; Denies: extremity pain PFSH PFSH Medical History (Updated 06/28/24 @ 13:08 by Symone Bales NP) Low back pain ?M54.50 - Low back pain, unspecified (ICD-10) Heartburn ?R12 - Heartburn (ICD-10) Acid reflux ?K21.9 - Gastro-esophageal reflux disease without esophagitis (ICD-10) Obesity ?E66.9 - Obesity, unspecified (ICD-10) Asthma ?J45.909 - Unspecified asthma, uncomplicated (ICD-10) Irregular heart beat ?I49.9 - Cardiac arrhythmia, unspecified (ICD-10) Hypertension ?I10 - Essential (primary) hypertension (ICD-10) Surgical History History of cholecystectomy ?Z90.49 - Acquired absence of other specified parts of digestive tract (ICD-10) H/O foot surgery ?Z98.890 - Other specified postprocedural states (ICD-10) H/O carpal tunnel repair ?Z98.890 - Other specified postprocedural states (ICD-10) H/O: hysterectomy ?Z90.710 - Acquired absence of both cervix and uterus (ICD-10) Meds Home Medications and Allergies Home Medications ?Medication ?Instructions ?Recorded ?Confirmed ?Type aspirin 81 mg capsule 81 mg PO DAILY 03/09/24 10/02/24 History atorvastatin 40 mg tablet 40 mg PO DAILY 03/09/24 10/02/24 History calcium 500 mg tablet mg 03/09/24 History cetirizine 5 mg tablet 5 mg PO BID PRN allergy symptoms 03/09/24 10/02/24 History cholecalciferol (vitamin D3) 50 2,000 unit PO DAILY 03/09/24 10/02/24 History mcg (2,000 unit) capsule magnesium 200 mg tablet 200 mg PO DAILY 03/09/24 10/02/24 History metformin 500 mg tablet 500 mg PO DAILY 03/09/24 10/02/24 History montelukast 10 mg tablet 10 mg PO DAILY 03/09/24 10/02/24 History (Singulair) spironolactone 25 mg tablet 25 mg PO BID 03/09/24 10/02/24 History gabapentin 100 mg capsule mg 09/18/24 History Allergies Allergy/AdvReac Type Severity Reaction Status Date / Time morphine AdvReac Mild itch Verified 10/02/24 09:33 Exam Constitutional Documenting provider has reviewed patient's vital signs: yes Common normals: no apparent distress, oriented x3, healthy appearing, alert and well nourished General appearance: cooperative [facility] Common normals: normocephalic, hearing grossly normal bilaterally and moist oral mucous membranes Head and scalp: normocephalic Eye Common normals: PERRL Pupil: PERRL Neck & C-Spine Common normals: full ROM General: normal visual inspection Chest Common normals: inspection of chest normal Respiratory Common normals: normal respiratory effort, no retractions and no use of accessory muscles Back & Pelvis Thoracic spine/upper back: ROM limited, pain with ROM and thoracic spinal tenderness T-spine tenderness location: T7, T8, T9, T10, T11 and T12; no paraspinal muscle tenderness Lumbar spine/lower back: ROM limited and straight leg raise negative bilaterally; no pain with ROM Sacroiliac joints: SI joints normal Other: positive facet loading and diffuse thoracic pain Extremity Common normals: normal to inspection and full ROM Neuro Common normals: oriented x3 Sensorium/orientation: alert Psych Common normals: mental status grossly normal, thought process normal, cooperative, affect normal, speech normal and activity/motor behavior normal Speech: normal speech Thought process: normal thought process Results Additional Findings Additional findings: If on a controlled substance or opioids, I have checked an [place] report on this patient and there are no aberrancies noted in the prescribing history.??If on a controlled substance or opioid a drug screen was completed and reviewed within the last year, and if there has not been a drug screen completed we ordered one today to monitor higher risk, state monitored pain medication use. As part of providing excellent, safe, comprehensive care, the following was completed at our patient's visit: 1. A medication reconciliation and review to ensure accurate knowledge of current/active medications, including asking our patients to inform us about any vnrw-swj-dxeabfs medications or herbal remedies/nutritional supplements/alternative remedies. 2. A review to specifically ensure our patients have had annual screening for screening for depression, screening for tobacco use, and screening for unhealthy alcohol use. For concerning screenings had a discussion with the patient, provided patient education, and recommended follow-up with primary care provider when appropriate. If patient noted with a risk of falling, they received education on strength, gait, and balance training to prevent future risk of falling. Portions of this note may have been carried over from the previous visit and updated as appropriate. Please note this office utilizes paper charting in addition to the electronic medical record. A list of current medications, vitals, and PMH is available there as the clinical staff outside of myself do not have access to [employer] charting during the clinic day operations. As part of providing quality comprehensive care the current medications, vitals, and PMH were reviewed in the paper chart. Assessment and Plan Assessment and Plan (1) Thoracic spondylosis: Assessment and Plan: The Oswestry Disability Index was completed, and the patient scored a 22%.? The patient noted the following:?? moderate to severe pain impacting ADLs, standing, sitting, walking, sleeping, social life, and travel We discussed the risks and benefits of the procedure with the patient, and we are NOT planning on using sedation as outlined in the guidelines from Medicare unless there is a documented reason that sedation would be strongly recommended.?? ?The procedure will be completed with fluoroscopic guidance.? (2) Scoliosis of thoracolumbar spine: (3) Lumbar spondylosis: (4) Lumbar degenerative disc disease: Plan 83 year old female with chronic thoracic and lumbar pain secondary to degenerative changes unresponsive to > 6 weeks of HEP/PT, heat, ice, tylenol, motrin. pt has found significant benefit to lumbar interventional therapy. will proceed with right then left T9-10 T10-11 medial branch RFA for axial thoracic pain. consider scs trial if pt fails. f/u 1 month after RFA complete
== END 2024-10-04 13:57 | disposition home or self-care (01) ==
LOC: PM 13:56
PROVIDERS: Family Provider Internal Medicine; PCP Internal Medicine; Visit Provider Nurse Practitioner
DX: M47.814 Spondylosis without myelopathy or radiculopathy, thoracic region (principal); M41.85 Other forms of scoliosis, thoracolumbar region; M47.816 Spondylosis without myelopathy or radiculopathy, lumbar region; M51.369 Other intervertebral disc degeneration, lumbar region without mention of lumbar back pain or lower extremity pain
CPT/HCPCS: G0463

== ENCOUNTER 2025-01-01 09:42 | Day surgery (SDC) | payer MEDICARE, SELFPAY ==
--- OUTSIDE RECORDS SUMMARY | 2025-01-01 09:44 | XMS_ITS | Clinical Summary ---
Author Organization [employer] Address [id number] [place] [address] Care Team Providers Care Replenishment Specialist Name Role Phone Bernardo Dillon DO, Charles L Primary Care Provider Allergies Active AllergyReactionsCriticalityNoted HxlbMbevzggnFtnlszzgKwsbfao81/10/2017 Medications MedicationSigDispense QuantityRefillsLast FilledStart DateEnd DateStatus topiramate (TOPAMAX) 25 mg tablet Take 25 mg by mouth daily.Active baclofen (LIORESAL) 10 mg tablet Take 10 mg by mouth 4 (four) times a day. prnActive metFORMIN (GLUMETZA) 500 MG (MOD) 24 hr tablet Take 500 mg by mouth daily with breakfast.Active gabapentin (NEURONTIN) 400 mg capsule Take 400 mg by mouth daily.Active lactulose (CEPHULAC) 10 gram packet Take 10 g by mouth 2 (two) times a day.Active beclomethasone (QVAR) 40 mcg/actuation inhaler Inhale 2 puffs 2 (two) times a day.Active GLUCOSAMINE/CHONDR MCKOY A SOD (OSTEO BI-FLEX ORAL) Take by mouth.Active calcium carbonate (OS-FERNANDO) 600 mg (1,500 mg) tablet Take 600 mg by mouth daily.Active aspirin 81 mg Take 81 mg by mouth daily.Active potassium chloride (KLOR-CON) 8 MEQ CR tablet Take 99 mEq by mouth daily.Active lysine 1,000 mg tablet Take 1,000 mg by mouth daily.Active fpevqmfm-qnscqobyf-EH (CORTISPORIN) 3.5-10,000-1 mg/mL-unit/mL-% otic suspension Indications:Bilateral impacted cerumenApplied 3-4 drops to the affected ear(s) 3 times daily. 10 mL 01/17/2018Active Additional Information Patient not taking.Reported on 01/19/2022 mmnsmjaq-zjbghlpfi-bgdyndlxxseho (MAXITROL) 3.5mg/mL-10,000 unit/mL-0.1 % ophthalmic suspension Indications:Bilateral impacted cerumenInstill 3-4 gtt in the affected ear(s) TID for 10 days 5 mL 05/30/2018Active Additional Information Patient not taking.Reported on 01/19/2022 Active Problems ProblemNoted DateDiagnosed DateTinnitus of right ear2Bilateral impacted bcixhhf42/10/2018 Resolved Problems ProblemNoted DateDiagnosed DateResolved DateNuclear sclerotic cataract of left eye Family History Medical HistoryRelationNameCommentsNo Known ProblemsFatherNo Known Problems MotherRelationNameStatusCommentsFatherMother Social History Tobacco UseTypesPacks/DayYears UsedDateSmoking Tobacco: NeverSmokeless Tobacco: Never Tobacco Cessation:Counseling Given: Not Answered Alcohol UseStandard Drinks/WeekCommentsNo0 (1 standard drink = 0.6 oz pure alcohol)ChildcareAnswerDate NwirnjluFydlkiegfPnzonws45/12/2019EmploymentAnswer Date WdhmurlrKymmszqdniGqppvnc86/12/2019Hunger ScreeningAnswerDate Recorded Within the past 12 months we worried whether our food would run out before we got money to buy more.Never True01/19/2022Within the past 12 months the food we bought just didn't last and we didn't have money to get more.Never True 2Purpose - LifeAnswerDate RecordedPurpose and direction in lifeUnknown 1CommentsNoSex and Gender InformationValueDate RecordedSex Assigned at BirthNot on fileLegal UkmDpcwuy75/06/2015 11:52 AM EDTGender IdentityNot on fileSexual OrientationNot on file Last Filed Vital Signs Vital SignReadingTime TakenCommentsBlood Phiasugw982/7605 2:00 PM EDT Lmpok4521 9:33 PM CYCAhomckixpey07.6 ??C (97.9 ??F)10/10/2016 9:33 PM EDTRespiratory Evco782410/10/2016 9:33 PM EDTOxygen Uogoacrnfr058%10/10/2016 9:33 PM EDTInhaled Oxygen Concentration--Wrnihs18 kg (183 lb)01/19/2022 2:52 PM EST Hhdrgy251.6 cm (5' 6 )01/19/2022 2:52 PM ESTBody Mass Index29.5401/19/2022 2:52 PM EST Plan of Treatment Health MaintenanceDue DateLast DoneCommentsDepression Cqpwcgfqh94/28/1954Tobacco Buygqpxur65/28/1954DTaP,Tdap and Td Vaccines (1 - Tdap)1960Fall Risk Hieziuacx53/28/2007RSV ( or age 60+ yrs) (1 - 1-dose 75+ series) 2016Zoster (Shingles) Vaccine (2 of 3)COVID-19 Vaccine ( - season)/, 06/10/2020, 05/13/2020Influenza Curwruk36/ Medical Devices ImplantedTypeAreaManufacturerDevice IdentifierShelf Expiration DateModel / Serial / LotLens Mx60 20.5 - [id number] - [id number] Implanted:Qty: 1 on 08/24/2016 by Francisco Javier Paul MD at [facility]: [employer]05/09/2019MX60 23.5 / [id number] / [id number]:MX60 23.5D perM. [place] Insurance Care Teams Team MemberRelationshipSpecialtyStart DateEnd Date Molina Chang Jr., [facility] [place] [address] PCP - GeneralInternal Medicine08/24/16
--- OUTSIDE RECORDS SUMMARY | 2025-01-01 09:44 | XMS_ITS | Clinical Summary ---
Author Organization [facility] Address [address], [address] [place] [address] Care Team Providers Care Lead Atg Developer Name Role Phone Molina Chang Primary Care Provider Allergies Active AllergyReactionsCriticalityNoted FmhiHpstahhsDvlxojho67/28/2013 Medications MedicationSigDispense QuantityRefillsLast FilledStart DateEnd DateStatus metFORMIN (GLUCOPHAGE) 500 MG tablet Take 1 tablet by mouth nightlyActive aspirin 81 MG tablet Take 1 tablet by mouth dailyActive atorvastatin (LIPITOR) 40 MG tablet Take 1 tablet by mouth daily 30 tablet ctive NONFORMULARY [place] [employer] Vitamin dailyActive montelukast (SINGULAIR) 10 MG tablet Take 1 tablet by mouth nightly at pdyuejm6703/23/2023ctive spironolactone (ALDACTONE) 25 MG tablet Take 1 tablet by mouth 2 times daily08/13/2023ctive polyethylene glycol (MIRALAX) 17 g PACK packet Take 17 g by mouth dailyActive furosemide (LASIX) 20 MG tablet Take 1 tablet every other day for 1 week then call office for updated weight. 4 tablet 5Active Additional Information Patient not taking.Reported on 08/28/2024 buPROPion (WELLBUTRIN XL) 150 MG extended release tablet Take 1 tablet by mouth every xcneixg77/18/2025Active gabapentin (NEURONTIN) 100 MG capsule Take 1 capsule by mouth 3 times daily for 30 days. Intended supply: 90 days 90 capsule 5Active Active Problems ProblemNoted DateDiagnosed DateComplicated UTI (urinary tract infection) 5Chest wall pain04/04/2023Type 2 diabetes mellitus, without long-term current use of vfppvuj4404/04/20239382Pbqagbplhkxe40/25/2024ngina, class IV04/04/2023 PSVT (paroxysmal supraventricular tachycardia)04/04/2023History of TIA (transient ischemic attack)04/04/2023Stroke-like tiysxavt45/26/2021TIA (transient ischemic attack)04/17/2020erebral aneurysmAltered mental status Received intravenous tissue plasminogen activator (tPA) in emergency department Acute encephalopathy Resolved Problems ProblemNoted DateDiagnosed DateResolved DateTGA (transient global amnesia) /ge-related nuclear cataract of right eye12/20/2017 12/20/2017 Encounters DateTypeDepartmentCare EqyeLnbhsmlsxac46/20/2025 12:14 PM EDT - 11/29/2024 11:59 PM EDTHospital Encounter [facility] [address] [place], [place] [id number] Speech disturbance, unspecified type; 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 [address] [place] [address] Discharge Disposition: Home or Self Care10/24/2024Transcribe Orders [facility] Mamm[facility] [address] [place] [address] Molina Chang DO Encounter for screening mammogram for malignant neoplasm of breast (Primary Dx) from Last 3 Months Immunizations ImmunizationAdministration DatesNext DueInfluenza Vaccine, unspecified prkimpasstg42/19/2018Zoster Live (Zostavax)01/26/2017 Family History Medical HistoryRelationNameCommentsCancerBrotherOvarian CancerSister 2Relation NameStatusCommentsBrotherDeceasedFatherDeceasedMaternal GrandfatherDeceased Maternal GrandmotherDeceasedMotherDeceasedPaternal GrandfatherDeceasedPaternal GrandmotherDeceasedSister 1AliveSister 2Deceased Social History Tobacco UseTypesPacks/DayYears UsedDateSmoking Tobacco: NeverSmokeless Tobacco: Never Tobacco Cessation:Counseling Given: No Alcohol UseStandard Drinks/WeekCommentsNo0 (1 standard drink = 0.6 oz pure alcohol)[facility] UtilitiesAnswerDate RecordedIn the past 12 months has the [employer], oil, or water [employer] threatened to shut off services in your home?No 07/12/2024UDIT-CAnswerDate RecordedQ1: How often do you have a drink containing alcohol?Never07/12/2024Q2: How many drinks containing alcohol do you have on a typical day when you are drinking?Patient does not drink07/12/2024Q3: How often do you have six or more drinks on one occasion?Never07/12/2024PHQ-2AnswerDate RecordedPHQ-2 Gwhjm567Hunger Vital SignAnswerDate RecordedWithin the past 12 months, you worried that your food would run out before you got the money to buymore.Never true07/12/2024Within the past 12 months, the food you bought just didn't last and you didn't have money to get more.Never true 07/12/2024PRAPARE - TransportationAnswerDate RecordedIn the past 12 months, has lack of transportation kept you from medical appointments or from getting medications?No07/12/2024In the past 12 months, has lack of transportation kept you from meetings, work, or from getting things needed for daily living?No 07/12/2024Housing Stability Vital SignAnswerDate RecordedIn the last 12 months, was there a time when you were not able to pay the mortgage or rent on time?No 04/04/2023In the last 12 months, how many places have you lived?In the last 12 months, was there a time when you did not have a steady place to sleep or slept in [facility] (including now)?No04/04/2023Housing Stability Vital SignAnswerDate RecordedIn the last 12 months, was there a time when you were not able to pay the mortgage or rent on time?No07/12/2024In the past 12 months, how many times have you moved where you were living?t any time in the past 12 months, were you homeless or living in a alf (including now)?No 07/12/2024Interpersonal Safety ([facility])AnswerDate RecordedHow often does anyone, including family and friends, physically hurt you?Never04/04/2023How often does anyone, including family and friends, scream or curse at you?Not on file04/04/2023How often does anyone, including family and friends, insult or talk down to you?Not on file04/04/2023How often does anyone, including family and friends, threaten you with harm?Not on file04/04/2023Food InsecurityAnswer Date RecordedWithin the past 12 months, you worried that your food would run out before you got the money to buymore.Within the past 12 months, the food you bought just didn't last and you didn't have money to get more.1 07/12/2024Interpersonal Safety Domain Source: IP Abuse ScreeningAnswerDate RecordedPhysical iuvpaDuripw29/04/2025Verbal tpbfqVquaqt01/04/2025Emotional cbcefVlybfx43/04/2025Financial huvfqQbhixm48/04/2025Sexual wxqtgIhfxru83/04/2025 CommentsNoSex and Gender InformationValueDate RecordedSex Assigned at BirthNot on fileLegal OejIheiid47/10/2013 5:08 PM ESTGender IdentityNot on file Sexual OrientationNot on file Last Filed Vital Signs Vital SignReadingTime TakenCommentsBlood Zgpcoajb802/6507 8:51 AM EDT Mqtuo077508/28/2024 8:51 AM ETMVynfqtnsfrz70.9 ??C (96.7 ??F)08/28/2024 8:51 AM EDTRespiratory Tfao640608/28/2024 8:51 AM EDTOxygen Smafamzwpj09%08/18/2024 5:02 AM EDTInhaled Oxygen Concentration--Laalur14.8 kg (187 lb)08/28/2024 8:51 AM EDT Hkhwpy039.6 cm (5' 4 )08/28/2024 8:51 AM EDTBody Mass Index32. 8:51 AM EDT Plan of Treatment DateTypeDepartmentCare Team (Latest Contact Info)Oxmnsnzewjm49/17/2025 10:20 AM ESTOffice Visit [facility] Part of [address] [address] Alissa Marx MD [address] [place] [address] [place] [address] 6 month follow up02/12/2025 4:30 PM ESTAppointment [facility] Mammography [address] [place] [address] vhwhsteqo80/29/2026 2:20 PM ESTOffice Visit [facility] NEUROLOG[facility] Part of [address] [place] [address] Lorenzo Vang MD [address] [place] [address] [facility] [address] [place] [address] follow up; [facility] MaintenanceDue DateLast DoneCommentsDepression Screen 4Diabetic Alb to Cr ratio (uACR) test11/06/1959DTaP/Tdap/Td vaccine (1 - Tdap)1Pneumococcal 50+ years Vaccine (1 of 2 - PCV)1Annual Wellness Visit (Medicare Advantage)02/09/2024Flu vaccine (#1)09/08/2024 11/26/2017COVID-19 Vaccine ( season)509/, 01/23/2022, 02/03/2021GFR test (Diabetes, CKD 3-4, OR last GFR 15-59)/, 08/18/2024, 07/26/2024, Additional history ihsddfSqfmva99/16/202609, 05/15/2024, 10/22/2023, Additional history existsDEXA (modify frequency per FRAX score)Fymxlmotl32/30/2013Respiratory Syncytial Virus (RSV) or age 60 yrs+Zxkwitewt39/30/2024Shingles hqcmjiwIsoafmkur54/30/2024, 07/16/2022, 01/26/2017Hepatitis A vaccineAged OutNo longer eligible based on patient's age to complete this topicHepatitis B vaccineAged OutNo longer eligible based on patient's age to complete this topicHib vaccineAged OutNo longer eligible based on patient's age to complete this topicMeningococcal (ACWY) vaccineAged OutNo longer eligible based on patient's age to complete this topicMeningococcal B vaccineAged OutNo longer eligible based on patient's age to complete this topic Polio vaccineAged OutNo longer eligible based on patient's age to complete this topic Medical Devices ImplantedTypeAreaManufacturerDevice IdentifierShelf Expiration DateModel / Serial / LotLens Iol Envista Mx60 25.0d - [id number] Implanted:Qty: 1 on 12/20/2017 [facility]EyeRight: EyeBAUSCH AND LOMB-PMM09/08/2019MX60 25.0D / [id number] / Procedures Procedure NamePriorityDate/TimeAssociated DiagnosisCommentsVAS DUP CAROTID EWYQKHWNOUvbfxlj07/20/2025 1:12 PM EDT Speech disturbance, unspecified type 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) (HCC) VITAMIN D 25 WVJOPHCZwcqehj93/16/2025 12:49 PM EDT PDFUkcfyzj75/16/2025 12:49 PM EDT ELECTROLYTE RIQHXBhlipkl14/16/2025 12:49 PM EDT HEPATIC FUNCTION ZGNWOJnybgqf87/16/2025 12:49 PM EDT LIPID ZZOLJDuxohhx69/16/2025 12:49 PM EDT HEMOGLOBIN W5LHjxryuu81/16/2025 12:49 PM EDT ZSOLZERXLMEynglnz14/16/2025 12:49 PM EDT FECOtfuzxs84/16/2025 12:49 PM EDT CVJOFLFAxrwqmh84/16/2025 12:49 PM EDT ZXCTefjvfr66/16/2025 12:49 PM EDT BRAIN NATRIURETIC OYMWOQRLputvuy00/16/2025 12:49 PM EDT DEXA BONE DENSITY 2 UJWPXXeyyjra24/30/2013 1:36 PM EDT from Last 3 Months or Most Recently Relevant to Health Maintenance Results * Vascular duplex carotid bilateral (11/27/2024 1:12 PM EDT)ComponentValueRef RangeTest MethodAnalysis TimePerformed AtPathologist SignatureRight cca dist PSV77.1cm/sBSMH CV CPACSRight CCA dist EDV16.3cm/sBSMH CV CPACSRight CCA mid PSV91.36cm/sBSMH CV CPACSRight CCA mid EDV12.42cm/sBSMH CV CPACSRight CCA prox PSV97.9cm/sBSMH CV CPACSRight CCA prox EDV16.3cm/sBSMH CV CPACSRight ECA PSV 74.2cm/sBSMH CV CPACSRight ECA EDV12.76cm/sBSMH CV CPACSRight ICA dist PSV66.1 cm/sBSMH CV CPACSRight ICA dist EDV9.5cm/sBSMH CV CPACSRight ICA mid PSV74.2 cm/sBSMH CV CPACSRight ICA mid EDV9.5cm/sBSMH CV CPACSRight ICA prox PSV56.4 cm/sBSMH CV CPACSRight ICA prox EDV11.2cm/sBSMH CV CPACSRight vertebral PSV 22.0cm/sBSMH CV CPACSRight vertebral EDV5.41cm/sBSMH CV CPACSRight ICA/CCA PSV 1.0no unitsBSMH CV CPACSLeft CCA dist PSV96.4cm/sBSMH CV CPACSLeft CCA dist EDV23.5cm/sBSMH CV CPACSLeft CCA mid QJR690.28cm/sBSMH CV CPACSLeft CCA mid EDV19.52cm/sBSMH CV CPACSLeft CCA prox PSV98.4cm/sBSMH CV CPACSLeft CCA prox EDV19.5cm/sBSMH CV CPACSLeft ECA PSV62.0cm/sBSMH CV CPACSLeft ECA EDV6.34cm/s [facility] CV CPACSLeft ICA dist GGJ361.3cm/sBSMH CV CPACSLeft ICA dist EDV29.4cm/s [facility] CV CPACSLeft ICA mid LCU745.2cm/sBSMH CV CPACSLeft ICA mid EDV25.4cm/s [facility] CV CPACSLeft ICA prox PSV85.4cm/sBSMH CV CPACSLeft ICA prox EDV22.5cm/s [facility] CV CPACSLeft vertebral PSV33.9cm/sBSMH CV CPACSLeft vertebral EDV8.64cm/s [facility] CV CPACSLeft ICA/CCA PSV1.12no unitsBSMH CV CPACSAnatomical Region LateralityModalityVascular, HeadVascular UltrasoundSpecimen (Source)Anatomical Location / LateralityCollection Method / VolumeCollection TimeReceived Time Narrative 11/27/2024 3:44 PM EDT No stenosis in the right internal carotid artery. ?No stenosis in the left internal carotid artery. ?Normal antegrade flow involving the right vertebral artery. ?Normal antegrade flow involving the left vertebral artery. Right Carotid Common Carotid Artery: Patent. Flow is antegrade. Internal Carotid Artery: No stenosis. External Carotid Artery: Patent. Vertebral Artery: Flow is antegrade. Left Carotid Common Carotid Artery: Patent. Flow is antegrade. Internal Carotid Artery: No stenosis. External Carotid Artery: Patent. Vertebral Artery: Flow is antegrade. Authorizing ProviderResult TypeResult StatusKeOroville Hospital VASCULAR ORDERABLESFinal Result * Vitamin D 25 Hydroxy (10/24/2024 12:49 PM EDT)ComponentValueRef RangeTest MethodAnalysis TimePerformed AtPathologist SignatureVit D, 25-Wzzlgtl98.130.0 - 100.0 ng/mL10/24/2024 12:49 PM EDMIAMI VALLEY HOSPITAL LABORATORIESComment: Reference Range: Vitamin D status ? Range Deficiency <20 ng/mL Mild Deficiency ? 20-30 ng/mL Sufficiency ?30-100 ng/mL Toxicity >100 ng/mL Specimen (Source)Anatomical Location / LateralityCollection Method / Volume Collection TimeReceived Time10/24/2024 12:49 PM EDT10/24/2024 12:50 PM EDT Narrative Authorizing ProviderResult TypeResult StatusCharles L Valone DOCHEMISTRY ORDERABLESFinal ResultPerforming OrganizationAddressCity/State/ZIP CodePhone Number [facility] [address] [place], [place] [address] [phone] [facility] [address] [place], [place] [address] [phone] * (ABNORMAL) CBC (10/24/2024 12:49 PM EDT)ComponentValueRef RangeTest Method Analysis TimePerformed AtPathologist SignatureWBC6.63.5 - 11.3 k/uL10/24/2024 12:49 PM [facility] LABRBC3.78(L)3.95 - 5.11 m/uL 10/24/2024 12:49 PM [facility] HKGSzysvhfvlq66.2(L)11.9 - 15.1 g/dL10/24/2024 12:49 PM [facility] XPZMjcsgfgmez93.4 (L)36.3 - 47.1 %10/24/2024 12:49 PM [facility] IOJANS15.7 82.6 - 102.9 fL10/24/2024 12:49 PM [facility] OCSACY65.6 25.2 - 33.5 pg10/24/2024 12:49 PM [facility] WBQFSDA66.6 28.4 - 34.8 g/dL10/24/2024 12:49 PM [facility] EJBBOR79.6 11.8 - 14.4 %10/24/2024 12:49 PM [facility] LABPlatelets 564037 - 453 k/uL10/24/2024 12:49 PM [facility] LABMPV9.9 8.1 - 13.5 fL10/24/2024 12:49 PM [facility] LABNRBC Automated0.00.0 per 100 WBC10/24/2024 12:49 PM [facility] LABSpecimen (Source)Anatomical Location / LateralityCollection Method / Volume Collection TimeReceived Time10/24/2024 12:49 PM EDT10/24/2024 12:50 PM EDT Narrative Authorizing ProviderResult TypeResult StatusCharles L Valone DOHEMATOLOGY ORDERABLESFinal ResultPerforming OrganizationAddressCity/State/ZIP CodePhone Number [facility] [address] [place] [address] * (ABNORMAL) BUN (10/24/2024 12:49 PM EDT)ComponentValueRef RangeTest Method Analysis TimePerformed AtPathologist BkuanhyakTTB12(H)8 - 23 mg/dL10/24/2024 12:49 PM [facility] LABSpecimen (Source)Anatomical Location / LateralityCollection Method / VolumeCollection TimeReceived Time 10/24/2024 12:49 PM EDT10/24/2024 12:50 PM EDT Narrative Authorizing ProviderResult TypeResult StatusCharles L Valone DOCHEMISTRY ORDERABLESFinal ResultPerforming OrganizationAddressty/State/ZIP CodePhone Number [facility] [address] [place] [address], [facility] [phone] * TSH (10/24/2024 12:49 PM EDT)ComponentValueRef RangeTest MethodAnalysis Time Performed AtPathologist SignatureTSH1.500.27 - 4.20 uIU/mL10/24/2024 12:49 PM [facility] LABSpecimen (Source)Anatomical Location / LateralityCollection Method / VolumeCollection TimeReceived Time10/24/2024 12:49 PM EDT10/24/2024 12:50 PM EDT Narrative Authorizing ProviderResult TypeResult StatusCharles L Valone DOCHEMISTRY ORDERABLESFinal ResultPerforming OrganizationAddressCity/State/ZIP CodePhone Number [facility] [address] [place] [address] * Brain Natriuretic Peptide (10/24/2024 12:49 PM EDT)ComponentValueRef RangeTest MethodAnalysis TimePerformed AtPathologist SignatureNT Pro-FPL0804 - 450 pg/mL 10/24/2024 12:49 PM [facility] LABSpecimen (Source) Anatomical Location / LateralityCollection Method / VolumeCollection Time Received Time10/24/2024 12:49 PM EDT10/24/2024 12:50 PM EDT Narrative Authorizing ProviderResult TypeResult StatusCharles L Valone DOCHEMISTRY ORDERABLESFinal ResultPerforming OrganizationAddressCity/State/ZIP CodePhone Number [facility] [address] [place] [address] * Hemoglobin A1C (10/24/2024 12:49 PM EDT)ComponentValueRef RangeTest Method Analysis TimePerformed AtPathologist SignatureHemoglobin A1C5.64.0 - 6.0 % 10/24/2024 12:49 PM EDTMERCY LABORATORIESEstimated Avg Ofbctag232vv/dL 10/24/2024 12:49 PM EDTMERCY LABORATORIESComment: The ADA and AACC recommend providing the estimated average glucose result to permit better patient understanding of their HBA1c result. Specimen (Source)Anatomical Location / LateralityCollection Method / Volume Collection TimeReceived Time10/24/2024 12:49 PM EDT10/24/2024 12:50 PM EDT Narrative Authorizing ProviderResult TypeResult StatusCharles L Valone DOCHEMISTRY ORDERABLESFinal ResultPerforming OrganizationAddressCity/State/ZIP CodePhone Number [facility] [address] [place] [address], [facility] [phone] [place] [id number], [facility] [phone] * (ABNORMAL) Creatinine (10/24/2024 12:49 PM EDT)ComponentValueRef RangeTest MethodAnalysis TimePerformed AtPathologist SignatureCreatinine1.4(H)0.50 - 0.90 mg/dL10/24/2024 12:49 PM [facility] LABEst, Glom Filt Rate39(L)>60 mL/min/1.02r14910/24/2024 12:49 PM [facility] LABComment: ? These results are not intended for use in patients <18 years of age. ? eGFR results are calculated without a race factor using the 2020 CKD-EPI equation. Careful clinical correlation is recommended, particularly when comparing to results calculated using previous equations. The CKD-EPI equation is less accurate in patients with extremes of muscle mass, extra-renal metabolism of creatine, excessive creatine ingestion, or following therapy that affects renal tubular secretion. Specimen (Source)Anatomical Location / LateralityCollection Method / Volume Collection TimeReceived Time10/24/2024 12:49 PM EDT10/24/2024 12:50 PM EDT Narrative Authorizing ProviderResult TypeResult StatusCharles L Valone DOCHEMISTRY ORDERABLESFinal ResultPerforming OrganizationAddressCity/State/ZIP CodePhone Number [facility] [address] [place] [address], [facility] [phone] * Calcium (10/24/2024 12:49 PM EDT)ComponentValueRef RangeTest MethodAnalysis TimePerformed AtPathologist SignatureCalcium9.68.6 - 10.4 mg/dL10/24/2024 12:49 PM [facility] LABSpecimen (Source)Anatomical Location / LateralityCollection Method / VolumeCollection TimeReceived Time 10/24/2024 12:49 PM EDT10/24/2024 12:50 PM EDT Narrative Authorizing ProviderResult TypeResult StatusCharles L Valone DOCHEMISTRY ORDERABLESFinal ResultPerforming OrganizationAddressCity/State/ZIP CodePhone Number [facility] [address] [place] [id number] [phone] * Hepatic Function Panel (10/24/2024 12:49 PM EDT)ComponentValueRef RangeTest MethodAnalysis TimePerformed AtPathologist SignatureAlbumin4.23.5 - 5.2 g/dL 10/24/2024 12:49 PM [facility] LABAlkaline Qajqbeihcqp25 35 - 104 U/L10/24/2024 12:49 PM [facility] LCXWFJ9682 - 35 U/L10/24/2024 12:49 PM [facility] NIENNN2089 - 35 U/L 10/24/2024 12:49 PM [facility] LABTotal Bilirubin0.50.00 - 1.20 mg/dL10/24/2024 12:49 PM [facility] LABBilirubin, Direct0.20.00 - 0.30 mg/dL10/24/2024 12:49 PM [facility] LABBilirubin, Indirect0.30.0 - 1.0 mg/dL10/24/2024 12:49 PM [facility] LABTotal Protein6.86.6 - 8.7 g/dL10/24/2024 12:49 PM [facility] LABAlbumin/Globulin Ratio1.71.0 - 2.509 12:49 PM [facility] LABSpecimen (Source)Anatomical Location / LateralityCollection Method / VolumeCollection TimeReceived Time10/24/2024 12:49 PM EDT10/24/2024 12:50 PM EDT Narrative Authorizing ProviderResult TypeResult StatusCharles L Valone DOCHEMISTRY ORDERABLESFinal ResultPerforming OrganizationAddressCity/State/ZIP CodePhone Number [facility] [address] [place] [phone], [facility] [phone] * Lipid Panel (10/24/2024 12:49 PM EDT)ComponentValueRef RangeTest Method Analysis TimePerformed AtPathologist SignatureCholesterol, Hxoie4729 - 199 mg/dL10/24/2024 12:49 PM EDTMERCY LABORATORIESComment: Cholesterol Guidelines: <200 Desirable 200-240 ??Borderline >240 Undesirable HDL79>40 mg/dL10/24/2024 12:49 PM EDTMERCY LABORATORIESComment: HDL Guidelines: <40 Undesirable 40-59 ?Borderline >59 Desirable LDL Qgjsrvvvwjv291 - 100 mg/dL10/24/2024 12:49 PM EDTMERCY LABORATORIESComment: LDL Guidelines: <100 Desirable 100-129 ?? Near to/above Desirable 130-159 ?? Borderline >159 Undesirable Direct (measured) LDL and calculated LDL are not interchangeable tests. Chol/HDL Ratio1.6<5.009 12:49 PM EDTMERCY ORPCXBXUAINZKgmyzqlcenixx51 <150 mg/dL10/24/2024 12:49 PM EDTMERCY LABORATORIESComment: Triglyceride Guidelines: <150 Desirable 150-199 ??Borderline 200-499 ??High >499 Very high Based on AHA Guidelines for fasting triglyceride, November 2011. VLDL81 - 30 mg/dL10/24/2024 12:49 PM EDTMERCY LABORATORIESSpecimen (Source) Anatomical Location / LateralityCollection Method / VolumeCollection Time Received Time10/24/2024 12:49 PM EDT10/24/2024 12:50 PM EDT Narrative Authorizing ProviderResult TypeResult StatusCharles L Valone DOCHEMISTRY ORDERABLESFinal ResultPerforming OrganizationAddressCity/State/ZIP CodePhone Number [facility] [address] [place] [address], [facility] [phone] [facility] [address] [place], [place] [address] [phone] * Electrolyte Panel (10/24/2024 12:49 PM EDT)ComponentValueRef RangeTest Method Analysis TimePerformed AtPathologist ExnbuwfumOumfvs577798 - 145 mmol/L 10/24/2024 12:49 PM [facility] LABPotassium4.93.7 - 5.3 mmol/L10/24/2024 12:49 PM [facility] LRTSdbwimcw30906 - 107 mmol/L10/24/2024 12:49 PM [facility] HVEYJ44012 - 31 mmol/L10/24/2024 12:49 PM [facility] LABAnion Jfp291 - 16 mmol/L10/24/2024 12:49 PM [facility] LABSpecimen (Source) Anatomical Location / LateralityCollection Method / VolumeCollection Time Received Time10/24/2024 12:49 PM EDT10/24/2024 12:50 PM EDT Narrative Authorizing ProviderResult TypeResult StatusCharles L Valone DOCHEMISTRY ORDERABLESFinal ResultPerforming OrganizationAddressCity/State/ZIP CodePhone Number [facility] [address] [phone] * DEXA Bone Density 2 Sites (12/07/2012 1:36 PM EDT)Anatomical RegionLaterality ModalityOtherSpecimen (Source)Anatomical Location / LateralityCollection Method / VolumeCollection TimeReceived Time12/07/2012 1:36 PM EDT Narrative 12/07/2012 3:11 PM EDT FINAL Procedure: ??TDD ??Dec 07 2012 ??1:36PM [id number] ??LUMBAR HIP COMBINATION DEXA Reason for Exam: ??^screening for osteoporosis FULL RESULT: ?? REPORT: ??DEXA BONE DENSITOMETRY: REASON FOR EXAMINATION: Postmenopause. Bone [...] patients, this unconfirmed document is being released. ??It is not considered final until reviewed and signed. Electronically Signed by Quinton Hicks M.D. 12/07/2012 03:11 P DANISH/jaelyn DD: ??12/07/2012 01:58 P DT: ??12/07/2012 02:05 P CC: ?? Mckenzie Thao CNM ?Molina Chang D.O. IMPRESSION: ?? SEE ABOVE. Transcribed by: BUTCH on Dec 07 2012 ??3:11P Read by: ??QUINTON HICKS ??[id number] on Dec 07 2012 ??2:07P Electronically Signed by: ??DR. QUINTON HICKS on: ??Dec 07 2012 ??3:11P ? Procedure Note Quinton Hicks MD - 12/07/2012 FINAL Procedure: TDD Dec 07 2012 1:36PM [id number] LUMBAR HIP COMBINATIONDEXA Reason for Exam: ^screening [...] 07 2012 3:11P Read by: QUINTON HICKS [id number] on Dec 07 2012 2:07P Electronically Signed by: DR. QUINTON HICKS on: Dec 07 2012 3:11P Authorizing ProviderResult TypeResult StatusSusan Corrine Thao INTERNATIONAL COORDINATOR - CNMIMG DEXA ORDERABLESEdited Result - Final from Last 3 Months or Most Recently Relevant to Health Maintenance Insurance Advance Directives TypeDate RecordedPatient RepresentativeExplanationACP-Do Not Resuscitate 04/05/2023 1:36 PMDNR-CCA * DNR-CCA (Latest Code Status on File) Date ActivatedDate InactivatedComments07/12/2024 1:44 AM07/14/2024 4:07 PM * Full Code Date ActivatedDate InactivatedComments07/12/2024 1:41 AM07/12/2024 1:44 AM * DNR-CCA Date ActivatedDate InactivatedComments04/05/2023 2:06 PM2 7:40 PM * Full Code Date ActivatedDate InactivatedComments04/04/2023 5:18 PM2 2:06 PM * Full Code Date ActivatedDate InactivatedComments09/02/2020 5:28 PM09/05/2020 2:44 AM NameRelationshipHealthcare Agent RelationshipCommunicationJose Palmer SpousePrimary Decision Maker* * * Nely VillaltadchildSecondary Decision Maker* Care Teams Team MemberRelationshipSpecialtyStart DateEnd Date Molina Chang DO [address] [place] [phone] [facility]06/05/12
--- OUTSIDE RECORDS SUMMARY | 2025-01-01 09:57 | XMS_ITS | CCD ---
Author Organization [facility] Care Team Providers Care Clinical Team Lead Name Role Phone Richie Ramos Primary Care Provider [phone] XIOMARA LOMAX Referring Unavailable RICHARDRICHIE L Primary Care Unavailable LISETH, ACOSTA I Admitting Unavailable LISETH, ACOSTA I Attending Unavailable VALRICHIE ZAIDI Primary Care Unavailable AHMED, MOHAMMED S Consulting Unavailable AHMED, MOHAMMED S Admitting Unavailable TERRENCE MOHAMMED S Attending Unavailable Sujatadejuan FLORES Richie Goldy Primary Care Provider Richard DO Richie Goldy Primary Care Provider Sujatadejuan DO Richie Goldy Primary Care Provider Sujatadejuan DO Richie Goldy Primary Care Provider Gieditis , Andrius Foster Attending Unavailable Giedraitis , Andrius Cristian Attending Unavailable Giedraitis , Andrius Cristian Attending Unavailable Giedraitis , Andrius Litaytniko Attending Unavailable Giedraitis , Andrius Cristian Attending Unavailable Giedraitis , Andrius Cristian Attending Unavailable VALONE, RICHIE L Referring Unavailable VALONE, RICHIE L Primary Care Unavailable VALONE, RICHIE L Referring Unavailable VALONE, RICHIE L Primary Care Unavailable VICTOR M [place] Referring Unavailable VALONE, RICHIE L Primary Care Unavailable BRYCE RUBY Referring Unavailab le VALONE, RICHIE L Primary Care Unavailable VALONE, RICHIE L Referring Unavailable VALONE, RICHIE L Primary Care Unavailable VALONE, RICHIE L Primary Care Unavailable GEE BAXTER Attending Unavailable SHARATH GARCIA Referring Unavailable VALONE, RICHIE L Primary Care Unavailable VALONE, RICHIE L Referring Unavailable VALONE, RICHIE L Primary Care Unavailable CRISTIN DICKINSON Referring Unavailable VALONE, RICHIE L Primary Care Unavailable VALONE, RICHIE L Primary Care Unavailable VALONE, RICHIE L Primary Care Unavailable VALONE, RICHIE L Referring Unavailable VALONE, RICHIE L Referring Unavailable VALONE, RICHIE L Primary Care Unavailable VALONE, RICHIE L Referring Unavailable VALONE, RICHIE L Primary Care Unavailable VALONE, RICHIE L Primary Care Unavailable YANELY, VICTOR M Admitting Unavailable YANELY, VICTOR M Attending Unavailable VALONE, RICHIE L Primary Care Unavailable VEE, GEE Attending Unavailable VALONE, RICHIE L Primary Care Unavailable VEE, GEE Attending Unavailable VALONE, RICHIE L Referring Unavailable VALONE, RICHIE L Primary Care Unavailable VALONE, RICHIE L Referring Unavailable VALONE, RICHIE L Primary Care Unavailable Allergies Allergy ClassificationReported Allergen(s)Allergy TypeDate of OnsetReaction(s) FacilityOpioid Agonists (3 sources)MorphineDrug Xygobub12-10-1211[facility] (20 sources)MorphineDrug Hqfczij72-99-8203[facility] Work Phone: Medications Current Medications MedicationDrug Class(es)DatesSig (Normalized)Sig (Original)Acetaminophen (5 sources)Start: 37-80-8951nybrkiduuecdn (TYLENOL) tablet 650 mgStart: 09-04-2020 End: 51-39-4246nekeilmikkbio (TYLENOL) tablet 1,000 mgStart: 09-03-2020 End: 61-64-4635leteycsnlilhe (TYLENOL) tablet 1,000 mgStart: 09-02-2020 End: 13-27-6012gbimxderbfmiy (TYLENOL) tablet 325 mgStart: 04-17-2020 acetaminophen (TYLENOL) tablet 650 mgacetaminophen 325 mg / HYDROcodone bitartrate 5 mg oral tablet (3 sources)Opioid AgonistStart: 08-18-2024 End: 66-91-1650uthi 1 tablet by mouth every twenty-four hours1 tablet, Oral, ONCE, 1 dose, On Wed08/18/24 at 0200, Maximum dose of acetaminophen is 4000 mg fromall sources in 24 hours.Start: 01-21-2024 End: 27-63-9913vzil 1 tablet by mouth every twenty-four hours2 tablet, Oral, ONCE, 1 dose, On Wed01/21/24 at 1545, Maximum dose of acetaminophen is 4000 mg from all sources in 24 hours.Start: 01-21-2024 End: 37-84-9366QBYFEufpqck-acetaminophen (NORCO) 5-325 MG per tablet Indications: Strain of lumbar region, initialencounter Take 1 tablet by mouth every 6 hours as needed for Pain for up to 3 days. Intended supply: 3 days. Take lowest dose possible to manage pain Max Daily Amount: 4 tablets 12 tablet 01/21/2024 01/24/2024 ActiveamLODIPine 5 mg oral tablet (20 sources)Dihydropyridine Calcium Channel BlockerStart: 11-29-8427beLYMGYfml (NORVASC) tablet 5 mgStart: 51-61-2417rten 1 tablet by mouth once daily amLODIPine (NORVASC) 5 MG tablet Take 1 tablet by mouth daily 30 tablet 3 04/20/2020 ActiveStart: 73-72-5290kyKSSNOrlr (NORVASC) tablet 5 mgatorvastatin 40 mg oral tablet (20 sources)HMG-CoA Reductase InhibitorStart: 04-17-2020 End: 85-66-0015lrlf 80 mg by mouth once daily80 mg, Oral, NIGHTLY, First dose on Wed04/17/20 at 2100Start: 37-76-4082umwz 1 tablet by mouth once daily atorvastatin (LIPITOR) 40 MG tablet Take 1 tablet by mouth daily 30 tablet 3 04/19/2020 Jsxcqg71 hr buPROPion hydrochloride 150 mg extended release oral tablet (3 sources)AminoketoneStart: 40-63-8688fply 1 tablet by mouth once daily in the morningbuPROPion (WELLBUTRIN XL) 150 MG extended release tablet Take 1 tablet by mouth every morning 07/26/2024 Activetake 1 tablet by mouth once daily in the morningbuPROPion (WELLBUTRIN XL) 300 MG extended release tablet Take 1 tablet by mouth every morning 0 ActivebusPIRone hydrochloride 15 mg oral tablet (20 sources)Start: 52-20-4601ibqa 1 tablet by mouth twice daily15 mg, Oral, 2 TIMES DAILY, First dose on Wed09/02/20 at 2000 This 15 mg tablet can be split into thirds (5 mg) or halves (7.5 mg) based on the ordered dose.take 1 tablet by mouth twice dailybusPIRone (BUSPAR) 10 MG tablet Take 10 mg by mouth 2 times daily 0 Activecalcium carbonate 1500 mg oral tablet (9 sources)take 1 tablet by mouth once dailycalcium carbonate 600 MG TABS tablet Take 1 tablet by mouth daily 0 Activecephalexin 500 mg oral capsule (3 sources)Cephalosporin AntibacterialStart: 07-14-2024 End: 31-92-8417xtwc 1 capsule by mouth four times dailycephALEXin (KEFLEX) 500 MG capsule Take 1 capsule by mouth 4 times daily for 7 days 28 capsule 07/1407/21/2024 ActiveStart: 03-26-2024 End: 85-79-2357kvuj 1 capsule by mouth three times dailycephALEXin (KEFLEX) 500 MG capsule Take 1 capsule by mouth 3 times daily for 7 days 21 capsule 03/2604/02/2024 Xtiejf82 hr cetirizine hydrochloride 5 mg / pseudoephedrine hydrochloride 120 mg extended release oral tablet (18 sources)alpha-Adrenergic Agonist, Histamine-1 Receptor Antagonisttake 5-120 mg by mouth oncecetirizine-psuedoephedrine (ZYRTEC-D) 5-120 MG per extended release tablet Take 1 tablet by mouth daily Activecyclobenzaprine hydrochloride 10 mg oral tablet (1 source)Muscle RelaxantStart: 08-18-2024 End: 50-07-5943wvzw 1 tablet by mouth three times daily as needed for muscle spasmscyclobenzaprine (FLEXERIL) 10 MG tablet Take 1 tablet by mouth 3 times daily as needed for Muscle spasms 21 tablet 08/18/2024 08/28/2024 Active DULoxetine 60 mg delayed release oral capsule (1 source)Serotonin and Norepinephrine Reuptake InhibitorStart: 36-51-1330sqnp 1 capsule by mouth once dailyDULoxetine (CYMBALTA) 60 MG extended release capsule Take 1 capsule by mouth nightly 0 02/15/2023 Activefurosemide 20 mg oral tablet (5 sources)Loop DiureticStart: 08-10-2698rbltloeksq (LASIX) 20 MG tablet Take 1 tablet every other day for 1 week then call office for updated weight. 4 tablet 07/19/2024 Activegabapentin 100 mg oral capsule (10 sources)Anti-epileptic AgentStart: 22-69-8377qgbc 100 mg by mouth once daily 100 mg, Oral, NIGHTLY, First dose on Wed09/02/20 at 2100gabapentin (NEURONTIN) 400 MG capsule Take 100 mg by mouth nightly. 0 Activetake 1 capsule by mouth once dailygabapentin (NEURONTIN) 400 MG capsule Take 400 mg by mouth nightly. 0 Activelabetalol hydrochloride 5 mg/ml injectable solution (2 sources)beta-Adrenergic BlockerStart: 96-42-474409 mg, Intravenous, EVERY 4 HOURS PRN, High Blood Pressure, Give for SBP >185, Starting on Wed09/02/20 at 1408 Administer 10 mg IV every 10 minutes if SBP is 220 mmHg or greater OR DBP is 120 mmHgor greater. Notify provider if SBP is 220 mmHg or greater OR DBP is 120 mmHg or greater after 3 consecutive doses.Start: 31-00-102173 mg, Intravenous, EVERY 10 MIN PRN, High Blood Pressure, Starting Wed04/17/20 at 2035 Administer 10 mg IV every 10 minutes if SBP is 220 mmHg or greater OR DBP is 120 mmHg or greater. Notify provider if SBP is 220 mmHg or greater OR DBP is 120 mmHg or greater after 3 consecutive doses.lactulose 667 mg/ml oral solution (20 sources)Osmotic LaxativeStart: 11-74-4122Trigk: 09-02-2020 End: g, Oral, 2 TIMES DAILY, First dose on Wed09/02/20 at 1500take 1 dose by mouth twice dailylactulose (CEPHULAC) 10 g packet Take 1 packet by mouth 2 times daily Activelosartan potassium 50 mg oral tablet (8 sources)Angiotensin 2 Receptor BlockerStart: 76-65-3648evaw 50 mg by mouth twice daily50 mg, Oral, 2 TIMES DAILY, First dose on Wed09/02/20 at 1430Start: 04-20-2020 End: 65-96-1826ukmf 1 tablet by mouth once dailylosartan (COZAAR) 25 MG tablet Take 1 tablet by mouth daily 30 tablet 3 04/20/2020 09/04/2020 Discontinued (Stop Taking at Discharge)Start: 69-51-9122gsmf 1 tablet by mouth once daily losartan (COZAAR) 25 MG tablet Take 1 tablet by mouth daily 30 tablet 3 04/20/2020 ActiveStart: 44-94-0246lldzxdvp (COZAAR) tablet 25 mgmelatonin 3 mg oral tablet (12 sources)take 1 tablet by mouth once dailymelatonin 3 MG TABS tablet Take 3 mg by mouth daily 0 Activemontelukast 10 mg oral tablet (20 sources)Leukotriene Receptor AntagonistStart: 00-92-6706gisf 1 tablet by mouth once daily at bedtimemontelukast (SINGULAIR) 10 MG tablet Take 1 tablet by mouth nightly at bedtime 03/23/2023 Activetake 1 tablet by mouth once daily montelukast (SINGULAIR) 10 MG tablet Take 10 mg by mouth nightly 0 Active End: 37-75-9573Pmvhwieuoqo Sodium (SINGULAIR PO) Take by mouth 0 05/08/2020 Discontinued (Therapy completed)Montelukast Sodium (SINGULAIR PO) Take by mouth 0 ActiveMultiple Vitamin (MULTI-VITAMIN DAILY PO) (1 source)Multiple Vitamin (MULTI-VITAMIN DAILY PO) Take by mouth 0 Active Multiple Vitamins-Minerals (EYE VITAMINS PO) (6 sources)take 1 capsule by mouth once dailyMultiple Vitamins-Minerals (EYE VITAMINS PO) Take 1 capsule by mouth nightly 0 ActiveNONFORMULARY (20 sources)NONFORMULARY El Eye Vitamin daily ActiveNONFORMULARY El Eye Vitamin daily 0 Activeondansetron (ZOFRAN-ODT) disintegrating tablet 4 mg (2 sources)Start: 19-83-3035tuyzxiwcprg (ZOFRAN-ODT) disintegrating tablet 4 mg Start: 01-74-8833ecblkofqcnd (ZOFRAN-ODT) disintegrating tablet 4 mgpolyethylene glycol 3350 26089 mg powder for oral solution (8 sources)Osmotic LaxativeStart: ml promethazine hydrochloride 25 mg/ml injection (20 sources)PhenothiazineStart: 24-22-4999yskkqsibgsbs (PHENERGAN) injection 12.5 mgStart: 06-02-2020 End: 49-42-7288yenwsuylxanf (PHENERGAN) injection 12.5 mgStart: 18-86-5067vbts 0.5-1 tablets by mouth three times daily as needed for nauseapromethazine (PHENERGAN) 25 MG tablet Half to 1 pill by mouth 3 times daily as needed nausea/vomiting 21 tablet 0 06/02/2020 ActiveStart: 48-73-7296vbrotscldwsa (PHENERGAN) tablet 12.5 mgvitamin b12 0.5 mg oral tablet (14 sources)Vitamin V04Lpmamfauijvbby (VITAMIN B 12) 500 MCG TABS Take by mouth 0 Active End: 68-47-5490Sjbgvodztxogay (VITAMIN B-12 PO) Take by mouth 0 05/08/2020 Discontinued (Therapy completed)Cyanocobalamin (VITAMIN B-12 PO) Take by mouth 0 Activevitamin e d-alpha 400 unt oral capsule (20 sources)take 1 capsule by mouth once dailyvitamin E 400 UNIT capsule Take 400 Units by mouth daily 0 Active Completed/Discontinued Medications MedicationDrug Class(es)DatesSig (Normalized)Sig (Original)aspirin 81 mg delayed release oral tablet (20 sources)Platelet Aggregation Inhibitor, Nonsteroidal Anti-inflammatory Drug Start: 33-94-7924pvtv 81 mg by mouth once daily81 mg, Oral, DAILY, First dose on Wed07/12/24 at 0900, Until DiscontinuedStart: 96-92-7977ozakgib chewable tablet 81 mgStart: 17-47-9345abex 81 mg by mouth once daily81 mg, Oral, DAILY, First dose on Wed09/03/20 at 0900Start: 61-37-9518aambziq chewable tablet 324 mgtake 1 tablet by mouth once dailyaspirin 81 MG tablet Take 1 tablet by mouth daily Activebaclofen 10 mg oral tablet (20 sources)gamma-Aminobutyric Acid-ergic AgonistStart: 99-65-5178fqry 10 mg by mouth once daily10 mg, Oral, NIGHTLY, First dose on Wed07/12/24 at 2100, Until Discontinuedtake 1 tablet by mouth three times dailybaclofen (LIORESAL) 10 MG tablet Take 10 mg by mouth 3 times daily 0 ActiveBudesonide (2 sources)Corticosteroid End: 86-40-8890Kriroxymvp (PULMICORT IN) Inhale into the lungs 0 05/08/2020 Discontinued (Therapy completed)Budesonide (PULMICORT IN) Inhale into the lungs 0 Yohjtx722 ml calcium gluconate 20 mg/ml injection (1 source)Start: 07-12-2024 End: ,000 mg, IntraVENous, at 50 mL/hr, Administer over 120 Minutes, ONCE, On Wed07/12/24 at 0700, For 1doseceFAZolin 1000 mg injection (1 source)Cephalosporin AntibacterialStart: 09-02-2020 End: 22-12-6498owYZWsyge (ANCEF) 1000 mg in dextrose 5 % 50 mL IVPB (premix) cefTRIAXone (ROCEPHIN) 1,000 mg in sterile water 10 mL IV syringe (3 sources)Start: 07-12-2024 End: 12-42-3770lzik 100 mg intravenously every twenty-four hours1,000 mg, IntraVENous, EVERY 24 HOURS, First dose on Wed07/12/24 at 2300, For 4 days, Administer as slow IV Push over 5 mins Reconstitute 1 g vials with 9.6 mL of designated diluent to produce a 100 mg/mL solution.Start: 07-11-2024 End: 74-60-1178jhph 100 mg intravenously once1,000 mg, IntraVENous, ONCE, On Wed07/11/24 at 2315, For 1 dose, Administer as slow IV Push over 5 mins Reconstitute 1 g vials with 9.6 mL of designated diluent to produce a 100 mg/mL solution. Start: 03-26-2024 End: 00-78-2022zdkb 100 mg intravenously once1,000 mg, IntraVENous, ONCE, On Wed03/26/24 at 1830, For 1 dose, Administer as slow IV Push over 5 mins Reconstitute 1 g vials with 9.6 mL of designated diluent to produce a 100 mg/mL solution. clopidogrel 75 mg oral tablet (10 sources)P2Y12 Platelet InhibitorStart: 09-02-2020 End: 42-05-3405djzwddisqch (PLAVIX) tablet 150 mgStart: 01-07-2519kfqyrvfheub (PLAVIX) tablet 300 mgStart: 04-17-2020 End: 36-44-4770pfer 1 tablet by mouth once dailyclopidogrel (PLAVIX) 75 MG tablet Take 1 tablet by mouth daily For 28 days. 28 tablet 0 04/17/2020 0 09/04/2020 Discontinued (Stop Taking at Discharge)0.4 ml enoxaparin sodium 100 mg/ml prefilled syringe (2 sources)Low Molecular Weight HeparinStart: 26-06-5601mnngaf 40 mg by subcutaneous injection once daily40 mg, SubCUTAneous, DAILY, First dose on Wed07/12/24 at 0900, Until Discontinued, Indication of Use: Prophylaxis-DVT/PEStart: 11-88-8787ixknbl 40 mg by subcutaneous injection once daily40 mg, Subcutaneous, DAILY, First dose [place] Wed04/17/20 [place] [address]75 ml fentaNYL 0.05 mg/ml injection (1 source)Opioid AgonistStart: 09-02-2020 End: 70-39-3475bfmyfXLZ (SUBLIMAZE) htwrlevcg1013 ml glucose 500 mg/ml injection (1 source)Start: 04-17-2020 End: 54-89-8930hbpkfphq 50 % IV solutionStart: 04-17-2020 End: 42-18-4156vqpvcffz 50 % IV solution1 ml heparin sodium, porcine 5000 unt/ml prefilled syringe (1 source)Unfractionated Heparin, Anti-coagulantStart: 09-02-2020 End: 33-49-7727iwzaivo (porcine) injectioniodixanol (VISIPAQUE) injection 64 mL (1 source)Start: 09-02-2020 End: 40-32-1207dokjpxkay (VISIPAQUE) injection 64 mLiopamidol (ISOVUE-370) 76 % injection 75 mL (4 sources)Start: 08-18-2024 End: 45-36-8222ddgx 1 dose intravenously once75 mL, IntraVENous, IMG ONCE PRN, 1 dose, Starting on Wed08/18/24 at 0200, Until Wed08/18/24 at 0216, OtherStart: 03-26-2024 End: 33-98-7214blvf 1 dose intravenously once75 mL, IntraVENous, IMG ONCE PRN, 1 dose, Starting on Wed03/26/24 at 1451, Until Wed03/26/24 at 1452, OtherStart: 10-05-2021 End: 56-77-8410ghgdqpytv (ISOVUE-370) 76 % injection 75 mLStart: 04-17-2020 End: 54-04-3457rdxheyaqh (ISOVUE-370) 76 % injection 75 mLiopamidol (ISOVUE-370) 76 % injection 90 mL (1 source)Start: 09-02-2020 End: 48-72-3614gwygzybjo (ISOVUE-370) 76 % injection 90 mL100 ml levETIRAcetam 10 mg/ml injection (1 source)Start: 09-02-2020 End: 45-93-3872ddeWJUKNnvrzr (KEPPRA) 1000 mg/100 mL IVPBlysine 1000 mg oral tablet (2 sources) End: 94-93-0818bfrc 1 tablet by mouth once dailyL-Lysine 1000 MG TABS Take 1,000 mg by mouth daily 0 05/08/2020 Discontinued (Therapy completed)metFORMIN hydrochloride 500 mg oral tablet (20 sources)BiguanideStart: 96-89-0431jgqb 500 mg by mouth once jjgal773 mg, Oral, NIGHTLY, First dose on Wed07/12/24 at 2100, Until Discontinued2 ml midazolam 1 mg/ml injection (1 source)BenzodiazepineStart: 09-02-2020 End: 92-08-4088aeaajyuqh PF (VERSED) injectionMisc Natural Products (OSTEO BI-FLEX/5-LOXIN ADVANCED PO) (3 sources) End: 07-85-3775weyj 1 tablet by mouth once dailyMisc Natural Products (OSTEO BI-FLEX/5-LOXIN ADVANCED PO) Take 1 tablet by mouth daily 0 06/02/2020 Discontinued (LIST CLEANUP)take 1 tablet by mouth once dailyMisc Natural Products (OSTEO BI-FLEX/5-LOXIN ADVANCED PO) Take 1 tablet by mouth daily 0 ActiveMisc Natural Products (OSTEO BI-FLEX/5-LOXIN ADVANCED PO) Take by mouth 0 Activenitrofurantoin, macrocrystals 25 mg / nitrofurantoin, monohydrate 75 mg oral capsule (3 sources)Nitrofuran AntibacterialStart: 10-05-2021 End: 20-91-3596mvxysppmlpusxl (macrocrystal-monohydrate) (MACROBID) capsule 100 mg2 ml ondansetron 2 mg/ml injection (2 sources)Serotonin-3 Receptor AntagonistStart: 09-02-2020 End: 35-20-2547ejjqvgzwrgb (ZOFRAN) injectionStart: 06-02-2020 End: 13-43-3843ffuwanfylhb (ZOFRAN) injection 4 mgpotassium chloride 8 meq oral tablet (3 sources) End: 58-13-3934geygaymff chloride (KLOR-CON) 8 MEQ extended release tablet Take 99 mEq by mouth daily 0 1Discontinued (LIST CLEANUP)potassium,chelated 95 mg oral tablet (2 sources) End: 68-47-5712kmex 1 tablet by mouth once dailyPotassium 95 MG TABS Take 1 tablet by mouth daily 0 05/08/2020 Discontinued (Therapy completed)rOPINIRole 0.25 mg oral tablet (19 sources)Nonergot Dopamine AgonistStart: 87-48-9791csqz 0.5 mg by mouth once daily0.5 mg, Oral, DAILY, First dose on Wed07/12/24 at 0200, Until Discontinued take 1 tablet by mouth once dailyrOPINIRole (REQUIP) 0.5 MG tablet Take 1 tablet by mouth daily Zhthqk91 ml sodium chloride 9 mg/ml injection (16 sources)Start: 32-76-78694-40 mL, IntraVENous, EVERY 12 HOURS SCHEDULED (2 times per day), First dose on Wed07/12/24 at 0900,Until Discontinued, For Line Patency: Peripheral IV = 5 mL; Midline or Central Line = 10 mL/lumen. If following IV push medication, administer flush at same rate as the IV push. Flush volume is determined by type of infusion therapy being given. For non- viscous solutions use: Peripheral IV = 5 mL Midline or Central Line = 10 mL/lumen For viscous solutions (i.e. blood components, parenteral nutrition, contrast media, or after obtaining blood sample) use: Peripheral IV = 10 mL Midline or Central Line = 20 mL/lumenStart: 23-17-9351Csypx: 07-12-2024 End: 08-35-8746PaqemDWHmrn, at 75 mL/hr, CONTINUOUS, Starting on Wed07/12/24 at 0200Start: 09-03-2020 End: .9 % sodium chloride bolusStart: 05-96-1949osscfh chloride flush 0.9 % injection 5-40 mLStart: 09-02-2020 End: 94-36-6073dflq 1 dose intravenously twice daily5-40 mL, Intravenous, EVERY 12 HOURS SCHEDULED (2 times per day), First dose on Wed09/02/20 at 2100For Line Patency: Peripheral IV = 5 mL; [...] parenteral nutrition, contrast media, or after obtaining bloodsample) use: Peripheral IV = 10 mL Midline or Central Line = 20 mL/lumenStart: 72-55-9267taun 5-40 mL intravenously once as needed5-40 mL, Intravenous, PRN, Line Care, After every [...] mL Midline or Central Line = 20 mL/lumenStart: 08-33-9731ngmg 25 mL intravenously every hour as otsebp36 mL, Intravenous, at 100 mL/hr, PRN, If patient receiving piggyback infusions without ordered maintenance IV fluids or with frequent/long duration piggyback infusions, Starting on Wed09/02/20 at 1408 Administer at the same rate as the piggyback being infused.Start: 09-02-2020 End: .9 % sodium chloride infusionStart: 06-02-2020 End: .9 % sodium chloride bolusStart: mL, Intravenous, EVERY 12 HOURS SCHEDULED (2 times per day), First dose on Wed04/17/20 at 2100 Start: 64-75-9286myki 10 mL intravenous route once as qfiyez98 mL, Intravenous, PRN, Line Care, After every IV line use, Starting Wed04/17/20 at 2034 spironolactone 25 mg oral tablet (20 sources)Aldosterone AntagonistStart: 06-13-3002gqye 50 mg by mouth once daily50 mg, Oral, DAILY, First dose on Wed07/12/24 at 0900, Until Discontinued Start: 64-69-7992ichp 1 tablet by mouth twice dailyspironolactone (ALDACTONE) 25 MG tablet Take 1 tablet by mouth 2 times daily 08/13/2023 ActiveStart: 70-07-1429ejjp 2 tablets by mouth once dailyspironolactone (ALDACTONE) 25 MG tablet Take 2 tablets by mouth daily 08/13/2023 Activetopiramate 25 mg oral tablet (1 source) End: 66-33-1212lxzc 1 tablet by mouth twice dailytopiramate (TOPAMAX) 25 MG tablet Take 25 mg by mouth 2 times daily 0 04/17/2020 Discontinued (LISTCLEANUP) Problems Active Problems Problem ClassificationProblemDateDocumented DateEpisodic/ChronicAcute cerebrovascular disease (1 source)Cerebral infarction, unspecified; Translations: [Cerebral infarction, unspecified (HCC)]Onset: 66-30-7252KmupvaeBwofnqt dysrhythmias (20 sources)Paroxysmal supraventricular tachycardia; Translations: [PSVT (paroxysmal supraventricular tachycardia)]Onset: hronic Congestive heart failure; nonhypertensive (2 sources)Unspecified combined systolic (congestive) and diastolic (congestive) heart failure; Translations: [Unspecified combined systolic (congestive) and diastolic (congestive) heart failure (HCC)]Onset: 47-45-3952AeoqmobRpacbigu atherosclerosis and other heart disease (20 sources)Angina, class IV; Translations: [Angina pectoris, unspecified]Onset: 006747-04-8075XozsuclTmqhhxiz mellitus without complication (20 sources)Type 2 diabetes mellitus; Translations: [Type 2 diabetes mellitus without complications]Onset: 112011-49-9452UklsjhjSruqnqrkn of lipid metabolism (2 sources)Mixed hyperlipidemia; Translations: [Mixed hyperlipidemia]Onset: 626462-53-0762RjwafptKpluldxbs hypertension (20 sources)Essential hypertension; Translations: [Hypertensive disorder]Onset: 992460-01-3787UglflycAbclo and electrolyte disorders (1 source)Dehydration; Translations: [Dehydration]EpisodicHeadache; including migraine (1 source)Headache disorder; Translations: [Other complicated headache syndrome] EpisodicNausea and vomiting (1 source)Nausea, vomiting and diarrhea; Translations: [Nausea with vomiting, unspecified]EpisodicNutritional deficiencies (2 sources)Vitamin D deficiency, unspecified; Translations: [Vitamin D deficiency, unspecified]Onset: 80-72-7609BqxeycyOwlzh and ill-defined cerebrovascular disease (5 sources)Cerebral aneurysm, nonruptured; Translations: [Aneurysm of anterior communicating artery]Onset: 552856-14-2463MgumxkgOwgug and ill-defined cerebrovascular disease (20 sources)Intracranial aneurysm; Translations: [Cerebral aneurysm, nonruptured]ChronicOther and ill-defined cerebrovascular disease (1 source)Cerebral arterial aneurysm; Translations: [Cerebral aneurysm, nonruptured]29-03-6865OaclqqsWsvkt bone disease and musculoskeletal deformities (1 source)Somatic dysfunction of lumbar region; Translations: [Segmental and somatic dysfunction of lumbar region]09-37-8547GmgxgyluHqier circulatory disease (1 source)Elevated blood pressure; Translations: [Elevated blood-pressure reading, without diagnosis of hypertension]EpisodicOther connective tissue disease (1 source)Swelling of left lower limb; Translations: [Other specified soft tissue disorders]EpisodicOther nervous system disorders (20 sources)Disorder of brain; Translations: [Encephalopathy, unspecified] 05-24-0741ZtbpxdfVouen nervous system disorders (2 sources)Aphasia; Translations: [Cerebral infarction, unspecified]11-27-2024 ChronicOther nervous system disorders (1 source)Aphasia; Translations: [Aphasia]Onset: 24-88-6156QjgtmdiShzqp nervous system disorders (1 source)Dysarthria; Translations: [Dysarthria and anarthria]EpisodicOther nervous system disorders (2 sources)Disturbance in speech; Translations: [Unspecified speech disturbances]39-57-5776DcrzxbnzVaajz nervous system disorders (1 source)Unspecified speech disturbances; Translations: [Unspecified speech disturbances]Onset: 62-74-7714OyotclfrSqhyz screening for suspected conditions (not mental disorders or infectious disease) (2 sources)Computed tomography result abnormal; Translations: [Abnormal findings on diagnostic imaging of other specified body structures]Onset: 03-26-2024 66-23-8819YswcykyVdrhx screening for suspected conditions (not mental disorders or infectious disease) (1 source)Patient encounter status; Translations: [Encounter for screening mammogram for malignant neoplasm of breast]EpisodicResidual codes; unclassified (20 sources)Medication given; Translations: [Status post administration of tPA (rtPA) in a different facility within the last 24 hours prior to admission to current facility]ChronicResidual codes; unclassified (20 sources)Altered mental status; Translations: [Altered mental status, unspecified]EpisodicResidual codes; unclassified (2 sources)Pain; Translations: [Pain, unspecified]EpisodicResidual codes; unclassified (2 sources)Swelling; Translations: [Edema, unspecified]EpisodicResidual codes; unclassified (1 source)Edema of lower extremity; Translations: [Localized edema]07-26-2024 EpisodicSpondylosis; intervertebral disc disorders; other back problems (2 sources)Thoracic spondylosis without myelopathy; Translations: [Spondylosis without myelopathy or radiculopathy, thoracic region]Onset: ChronicTransient cerebral ischemia (20 sources)Transient cerebral ischemia; Translations: [Transient cerebral ischemic attack, unspecified]Onset: 04-17-2020 Resolved: 066902-22-9448UbbqoqaSzbalemrqcrg (1 source)Right ear iqyu59-39-1229 Past or Other Problems Problem ClassificationProblemDateDocumented DateEpisodic/ChronicCataract (20 sources)Age-related nuclear cataract of right eye; Translations: [Age- related nuclear cataract, right eye]Onset: 12-20-2017 Resolved: [id number] (2 sources)Age-related nuclear cataract of right eye; Translations: [Age-related nuclear cataract of right eye]Onset: 12-20-2017 Resolved: 536444-56-4025Omdlddplbm associated with dizziness or vertigo (3 sources)Lightheadedness; Translations: [Dizziness and giddiness]Onset: 235498-10-0366MmksruawBsvzawfm mellitus without complication (2 sources)Other abnormal glucose; Translations: [Other abnormal glucose]Onset: 23-16-4165BqjglfihYxfkanq and fatigue (4 sources)Asthenia; Translations: [Weakness]Onset: 192790-74-5031Phldtwgy Nonspecific chest pain (20 sources)Chest wall pain; Translations: [Other chest pain]Onset: 04-04-2023 82-47-9203XhrockvmPfpjm aftercare (2 sources)Other intermediate card tender (current) drug therapy; Translations: [Other intermediate card tender (current) drug therapy]Onset: 25-62-3708BrooiwczJspfz bone disease and musculoskeletal deformities (1 source)Segmental and somatic dysfunction of lumbar region; Translations: [Segmental and somatic dysfunction of lumbar region]Onset: 32-23-6970Tubyxlgx Other circulatory disease (20 sources)History of transient ischemic attack; Translations: [Personal history of transient ischemic attack (TIA), and cerebral infarction without residual deficits]Onset: 785349-00-2057FejvhtxkOyfqi circulatory disease (1 source)Personal history of transient ischemic attack (TIA), and cerebral infarction without residual deficits; Translations: [Personal history of transient ischemic attack (TIA), and cerebral infarction without residual deficits]Onset: 21-68-5955SajauvmgYclsd connective tissue disease (20 sources)Neurological symptom; Translations: [Unspecified symptoms and signs involving the nervous system]Onset: 10-40-5365FsschlvyOdxtj ear and sense organ disorders (2 sources)Otalgia, right ear; Translations: [Otalgia, unspecified]Onset: 052534-53-4426PuvkttvtMrndycbc codes; unclassified (2 sources)Transient alteration of awareness; Translations: [Transient alteration of awareness]Onset: 861671-35-3787IagrzqseKehkbclt codes; unclassified (3 sources)Localized edema; Translations: [Localized edema]Onset: 05-15-2024 EpisodicResidual codes; unclassified (1 source)Altered mental status, unspecified; Translations: [Altered mental status, unspecified]Onset: 04-11-6459IezkqqejPauoolrrzki; intervertebral disc disorders; other back problems (4 sources)Lumbar radiculopathy; Translations: [Radiculopathy, lumbar region] Onset: 344571-80-6497GtsinqpyZmmrazw and strains (4 sources)Low back strain; Translations: [Strain of muscle, fascia and tendon of lower back, initial encounter]Onset: 190684-72-9156MguqogxwBislrfrowqwn (20 sources)Onset: 01-26-2018 Resolved: 123740-26-9665Xxjeyfb tract infections (12 sources)Acute cystitis; Translations: [Acute cystitis without hematuria] Onset: 53-09-7663Nhnsafvx Results Test NameValueInterpretationReference RangeFacilityVascular duplex carotid bilateralOrdered By: Jerica Peralta on 12-97-3915Kuhs CCA dist EDV23.5 cm/s[facility] Work Phone: [phone] CCA dist PSV96.4 cm/s[facility] Work Phone: [phone] CCA mid EDV19.52 cm/s[facility] Work Phone: [phone] CCA mid MUU802.28 cm/s[facility] Work Phone: [phone] CCA prox EDV19.5 cm/s[facility] Work Phone: [phone] CCA prox PSV98.4 cm/s[facility] Work Phone: [phone] ECA EDV6.34 cm/s[facility] Work Phone: [phone] ECA PSV62.0 cm/s[facility] Work Phone: [phone] ICA dist EDV29.4 cm/s[facility] Work Phone: [phone] ICA dist [place]135.3 cm/s[facility] Work Phone: [phone] ICA mid EDV25.4 cm/s[facility] Work Phone: [phone] ICA mid OEK831.2 cm/s[facility] Work Phone: [phone] ICA prox EDV22.5 cm/s[facility] Work Phone: [phone] ICA prox PSV85.4 cm/s[facility] Work Phone: [phone] ICA/CCA PSV1.12no unitsBon [facility] Work Phone: [phone] vertebral EDV8.64 cm/s[facility] Work Phone: [phone] vertebral PSV33.9 cm/s[facility] Work Phone: [phone] CCA dist EDV16.3 cm/s[facility] Work Phone: Right cca dist PSV77.1 cm/s[facility] Work Phone: [phone] CCA mid EDV12.42 cm/s[facility] Work Phone: Right CCA mid PSV91.36 cm/s[facility] Work Phone: Right CCA prox EDV16.3 cm/s[facility] Work Phone: Right CCA prox PSV97.9 cm/s[facility] Work Phone: [phone] ECA EDV12.76 cm/s[facility] Work Phone: [phone] ECA PSV74.2 cm/s[facility] Work Phone: Right ICA dist EDV9.5 cm/s[facility] Work Phone: Right ICA dist PSV66.1 cm/s[facility] Work Phone: Right ICA mid EDV9.5 cm/s[facility] Work Phone: Right ICA mid PSV74.2 cm/s[facility] Work Phone: Right ICA prox EDV11.2 cm/s[facility] Work Phone: Right ICA prox PSV56.4 cm/s[facility] Work Phone: Right ICA/CCA PSV1.0no unitsBon [facility] Work Phone: Right vertebral EDV5.41 cm/s[facility] Work Phone: Right vertebral PSV22.0 cm/s[facility] Work Phone: [facility] Work Phone: Vascular duplex carotid bilateralon 81-52-6745Eo stenosis in the right internal carotid artery. No stenosis in the left internal carotid artery. Normal antegrade flow involving the right vertebral artery. Normal antegrade flow involving the left vertebral artery. Right Carotid Common Carotid Artery: Patent. Flow is antegrade. Internal Carotid Artery: No stenosis. External Carotid Artery: Patent. Vertebral Artery: Flow is antegrade. Left Carotid Common Carotid Artery: Patent. Flow is antegrade. Internal Carotid Artery: No stenosis. External Carotid Artery: Patent. Vertebral Artery: Flow is antegrade.[facility] CV CPACSRadiology Study observation (narrative)Bon [facility] AkronNon 58-68-2140Haqy nitrogen [Mass/Vol]34 mg/dLHigh8 - 23 mg/dLBon [facility] (Urea N)on 59-32-7064Uzya nitrogen [Mass/Vol]34 mg/dLHigh8-23MerDanbury HospitalComment on above: Performed By: #### TSH, LIVP, CBC, LYTE, CREG, BNP, BUN, CA ####[facility] [place] [address] Lab Director: Sharath Dennis MD#### GLYHGB, VD25, LIPR ####[facility] [address] [place] [address] Lab Director: Wellington Back MDBrain Natri. Peptideon 82-30-6688Lfpqifwhrkw peptide B (Bld) [Mass/Vol]422 pg/mLNormal0-450 [facility] CenterComment on above:Performed By: #### TSH, LIVP, CBC, LYTE, CREG, BNP, BUN, CA ####[facility] [place] [address] Lab Director: Sharath Dennis MD#### GLYHGB, VD25, LIPR ####[facility] [address] [place], [place] [address] Lab Director: Wellington Back MDBrain Natriuretic Peptideon 27-54-8224Cydvgtkpubm peptide B (Bld) [Mass/Vol]422 pg/mL0 - 450 pg/mLBon [facility] HospitalCBCon 37-97-4265Spicwxwfvco distribution width (RBC) [Ratio]13.6 %11.8 - 14.4 %[facility] HospitalHematocrit (Bld) [Volume fraction]35.4 %Low36.3 - 47.1 %[facility] HospitalHemoglobin (Bld) [Mass/Vol]11.2 g/dLLow11.9 - 15.1 g/dLBon [facility] HospitalInterpretation and review of laboratory resultsAbnormalCarilion ClinicH (RBC) [Entitic mass]29.6 pg25.2 - 33.5 pgCarilion ClinicHC (RBC) [Mass/Vol]31.6 g/dL28.4 - 34.8 g/dLBon [facility] HamiltonV (RBC) [Entitic vol]93.7 fL82.6 - 102.9 fLBon [facility] Nucleated RBC/100 WBC (Bld) [Ratio]0.0 %0.0 per 100 WBCBon Secours [facility] Platelet mean volume (Bld) [Entitic vol]9.9 fL8.1 - 13.5 fLBon Secours Mary Immaculate HospitalPlatelets (Bld) [#/Vol]211 10*3/uLBon [facility] HospitalRBC (Bld) [#/Vol]3.78 10*6/uLLow3.95 - 5.11 m/uLBon [facility] HospitalWBC other (Bld) [#/Vol]6.6Bon [facility] Medical CenterErythrocyte distribution width (RBC) [Ratio]13.6 %Ndlvku54.8-14.4[facility] Comment on above:Performed By: #### TSH, LIVP, CBC, LYTE, CREG, BNP, BUN, CA ####[address] [place] [phone] Director: Sharath Dennis MD#### GLYHGB, VD25, LIPR ####[address] [place] [address] Lab Director: Wellington Back MDHematocrit (Bld) [Volume fraction]35.4 %Low36.3-47.1MercLawrence+Memorial HospitalComment on above:Performed By: #### TSH, LIVP, CBC, LYTE, CREG, BNP, BUN, CA ####[address] , [facility]83 Lab Director: Sharath Dennis MD#### MILLY, VD25, LIPR ## ##[address] [address] Lab Director: Wellington Back MDHemoglobin (Bld) [Mass/Vol]11.2 g/dLLow11.9-15.1MSt. Rita's HospitalComment on above:Performed By: #### TSH, LIVP, CBC, LYTE, CREG, BNP, BUN, CA ####[address] [place] [address] Lab Director: Sharath Dennis MD#### GLYHGB, VD25, LIPR ## ##[address] [place], [place] [address] Lab Director: LIANA CoffmanCH (RBC) [Entitic mass]29.6 rwNtyllj05.2-33.5[facility] Medical CenterComment on above:Performed By: #### TSH, LIVP, CBC, LYTE, CREG, BNP, BUN, CA ####[address] [place] [address] Lab Director: Sharath Dennis MD#### GLYHGB, VD25, LIPR ## ##[address] [place], [place] [phone] Director: LIANA CoffmanCHC (RBC) [Mass/Vol]31.6 g/qGGbdhmx06.4-34.8[facility] Medical CenterComment on above:Performed By: #### TSH, LIVP, CBC, LYTE, CREG, BNP, BUN, CA ####[address] [place], [place] [address])[phone] Director: Sharath Dennis MD#### GLYHGB, VD25, LIPR ## ##[place], [place] [address])[phone] Director: SHALOM Coffman (RBC) [Entitic vol]93.7 tVJtmgav82.6-102.9[facility] Medical CenterComment on above:Performed By: #### TSH, LIVP, CBC, LYTE, CREG, BNP, BUN, CA ####[address] [place], [place] [address])[phone] Director: Sharath Dennis MD#### GLYHGB, VD25, LIPR ## ##[address] [place] [address] Lab Director: Wellington Back MDNRBC Automated0.0 per 100 WBCNormal0.0[facility] Comment on above:Performed By: #### TSH, LIVP, CBC, LYTE, CREG, BNP, BUN, CA ####[address] [place] [phone] Director: Sharath Dennis MD#### GLYHGB, VD25, LIPR ####[facility] [address] [place] [address] Lab Director: Gina Coffman mean volume (Bld) [Entitic vol]9.9 fLNormal8.1-13.5[facility] Medical CenterComment on above:Performed By: #### TSH, LIVP, CBC, LYTE, CREG, BNP, BUN, CA ####[address] [place] [address] Lab Director: Sharath Dennis MD#### GLYHGB, VD25, LIPR ## ##[address] [place] [address] Lab Director: Melida Coffman (Bld) [#/Vol]211 10*3/hSGbgbkq201-425OrqdlCincinnati Children'S Hospital Medical CenterComment on above:Performed By: #### TSH, LIVP, CBC, LYTE, CREG, BNP, BUN, CA ####[address] [place] [address] Lab Director: Sharath Dennis MD#### GLYALMA, VD25, LIPR ## ##[address] [place] [address] Lab Director: URSULA CoffmanBC (Bld) [#/Vol]3.78 10*6/uLLow3.95-5.11[facility] Comment on above:Performed By: #### TSH, LIVP, CBC, LYTE, CREG, BNP, BUN, CA ####[address] [place] [phone] Director: Sharath Dennis MD#### GLYHGB, VD25, LIPR ####[address] [place], [place] 3973[address] Lab Director: Wellington Back MDWBC (Bld) [#/Vol]6.6 10*3/uLNormal3.5-11.3Mselect medical specialty hospital - trumbully Mt. Sinai HospitalComment on above:Performed By: #### TSH, LIVP, CBC, LYTE, CREG, BNP, BUN, CA ####[address] [place], [place] [address]83 Lab Director: Sharath Dennis MD#### GLYHGB, VD25, LIPR ####[facility] [address] [place], [place] 3311[address] Lab Director: MARCO Coffmanalciumon 51-16-2914Wbovsau [Mass/Vol]9.6 mg/dL8.6 - 10.4 mg/dLBon [facility] Calcium [Mass/Vol]9.6 mg/dLNormal8.6-10.4[facility] Medical CenterComment on above: Performed By: #### TSH, LIVP, CBC, LYTE, CREG, BNP, BUN, CA ####[address] [place], [place] [address] Lab Director: Sharath Dnenis MD#### GLYHGB, VD25, LIPR ####[facility] [address] [place], [place] 9188[address] Lab Director: MARCO Coffmanreatinineon 48-77-8901Pelbqfysnt [Mass/Vol]1.4 mg/dLHigh0.50 - 0.90 mg/dLBon [facility] HospitalEst, Glom Filt Fvfp11Tck- PINFBon [facility] HospitalComment on above: These results are not intended [...] following therapy that affects renal tubular secretion. Creatinine w/GFRon 21-27-2200Vijyabtfqi [Mass/Vol]1.4 mg/dLHigh0.50-0.90[facility] Medical CenterComment on above:Performed By: #### TSH, LIVP, CBC, LYTE, CREG, BNP, BUN, CA ####[facility] [place] [address] Lab Director: Sharath Dennis MD#### JUAN ATKINS, LIPR ## ##[facility] HospitalOmnikles [address] [place] [address] Lab Director: Wellington Back MDGFR/1.73 sq M.predicted among non-blacks MDRD (S/P/Bld) [Vol rate/Area]39 mL/min/{1.73_m2}Low>60[facility] Medical CenterComment on above:Result Comment: These results are not intended for [...] or following therapy that affects renal tubular secretion.Performed By: #### TSH, LIVP, CBC, LYTE, CREG, BNP, BUN, CA ####[address] [place] [address] Lab Director: Sharath Dennis MD#### JUAN ATKINS, LIPR ####[facility] HospitalMevvyAhexldptzsoo[address] [place], [place] [address]368[address] Lab Director: Wellington Back MDElectrolyte Panelon 09-32-4653Dcfor gap [Moles/Vol] 14 mmol/L9 - 16 mmol/LBon [facility]ours Mercy HealthChloride [Moles/Vol]105 mmol/L98 - 107 mmol/LBon [facility]ours Mercy HealthCO2 [Moles/Vol]20 mmol/L20 - 31 mmol/LBon [facility]ours Mercy HealthPotassium [Moles/Vol]4.9 mmol/L3.7 - 5.3 mmol/LBon [facility] HospitalSodium [Moles/Vol]139 mmol/L136 - 145 mmol/LBon [facility] Electrolyteson 67-48-0353Jdcsh gap [Moles/Vol]14 mmol/LNormal9-16[facility] Medical CenterComment on above:Performed By: #### TSH, LIVP, CBC, LYTE, CREG, BNP, BUN, CA ####[address] [place], [place] [address] Lab Director: Sharath Dennis MD#### RODRIGUEZ25, LIPR ## ##[address] [place], [place] 9894[address] Lab Director: Wellington Back MDChloride [Moles/Vol]105 mmol/RPybehg27-931EteecCincinnati Children'S Hospital Medical CenterComment on above:Performed By: #### TSH, LIVP, CBC, LYTE, CREG, BNP, BUN, CA ####[address] [place], [place] [address] Lab Director: Sharath Dennis MD#### RODRIGUEZ25, LIPR ## ##[address] [place], [place] 56[address] Lab Director: Wellington Back MDCO2 [Moles/Vol]20 mmol/QCfzprq80-08MvyubCincinnati Children'S Hospital Medical Center Comment on above:Performed By: #### TSH, LIVP, CBC, LYTE, CREG, BNP, BUN, CA ####[address] [place], [place] [phone] Director: Sharath Dennis MD#### RODRIGUEZ25, LIPR ####[address] [place], [place] [address]08 Lab Director: Wellington Back MDPotassium [Moles/Vol]4.9 mmol/LNormal3.7-5.3MSt. Rita's Hospital Comment on above:Performed By: #### TSH, LIVP, CBC, LYTE, CREG, BNP, BUN, CA ####[address] [place] [phone] Director: Sharath Dennis MD#### GLYHGB, VD25, LIPR ####[facility] [place] [address] Lab Director: KAREN Coffmanodium [Moles/Vol]139 mmol/XEpvupk633-998GdoisCincinnati Children'S Hospital Medical CenterComment on above:Performed By: #### TSH, LIVP, CBC, LYTE, CREG, BNP, BUN, CA ####[address] , [place] [id number] Lab Director: Sharath Dennis MD#### GLYHGSunil, VD25, LIPR ####[address] [place] [address] Lab Director: Wellington Back MD Hemoglobin A1Con 97-86-5834Nqvajck glucose Estimated from glycated hemoglobin (Bld) [Mass/Vol]114 mg/dLBon [facility] HospitalComment on above:The ADA and AACC recommend providing the estimated average glucose result to permit better patient understanding of their HBA1c result. HbA1c (Bld) [Mass fraction]5.6 %4.0 - 6.0 %Bon [facility] HospitalBon [facility] HospitalGlucose [Mass/Vol]114 mg/dLNormalCincinnati Children'S Hospital Medical CenterComkalkaska memorial health center on above:Result Comment: The ADA and AACC recommend providing the estimated average glucose result to permit better patient understanding of their HBA1c result.Performed By: #### TSH, LIVP, CBC, LYTE, CREG, BNP, BUN, CA ####[address] , [place] [id number] Lab Director: Sharath Dennis MD#### GLYHGB, VD25, LIPR ####[facility] [place], [place] 404[address] Lab Director: Wellington Back MDHbA1c (Bld) [Mass fraction]5.6 %Normal4.0-6.0[facility] Medical CenterComment on above:Performed By: #### TSH, LIVP, CBC, LYTE, CREG, BNP, BUN, CA ####[facility] [place] [address] Lab Director: Sharath Dennis MD#### GLYHGB, VD25, LIPR ####[facility] [address] [place] [address] lab Director: Wellington Back MDHepatic Function Panelon 82-04-9643Amjmtbn [Mass/Vol]4.2 g/dL3.5 - 5.2 g/dLBon [facility] Albumin/Globulin [Mass ratio]1.7 {ratio}1.0 - 2.5Bon [facility] HospitalALP [Catalytic activity/Vol]96 U/L35 - 104 U/LBon [facility] HospitalALT [Catalytic activity/Vol]10 U/L10 - 35 U/LBon [facility] HealthAST [Catalytic activity/Vol]17 U/L10 - 35 U/LBon [facility] HealthBilirubin [Mass/Vol]0.5 mg/dL0.00 - 1.20 mg/dLBon [facility] HospitalBilirubin.direct [Mass/Vol]0.2 mg/dL0.00 - 0.30 mg/dLBon [facility] HospitalBilirubin.indirect [Mass/Vol]0.3 mg/dL0.0 - 1.0 mg/dLBon [facility] HospitalProtein [Mass/Vol]6.8 g/dL6.6 - 8.7 g/dLBon [facility] HospitalLipid Panelon 87-31-8623Uyohlpwwlka [Mass/Vol]129 mg/dL0 - 199 mg/dLBon [facility] HospitalComment on above: Cholesterol Guidelines: <200 Desirable 200-240 Borderline >240 Undesirable Cholesterol in HDL [Mass/Vol]79 mg/dL40 - PINF mg/dLBon [facility] Comment on above: HDL Guidelines: <40 Undesirable 40-59 Borderline >59 Desirable Cholesterol in LDL [Mass/Vol]42 mg/dL0 - 100 mg/dLBon [facility] Comment on above: LDL Guidelines: <100 Desirable 100-129 Near to/above Desirable 130-159 Borderline >159 Undesirable Direct (measured) LDL and calculated LDL are not interchangeable tests. Cholesterol in VLDL [Mass/Vol]8 mg/dL1 - 30 mg/dLBon [facility] Cholesterol.total/Cholesterol in HDL [Mass ratio]1.6 {ratio}NINF - 5.0Bon [facility] HospitalTriglyceride [Mass/Vol]40 mg/dLNINF - 150 mg/dLBon [facility] HospitalComment on above: Triglyceride Guidelines: <150 Desirable 150-199 Borderline 200-499 High >499 Very high Based on AHA Guidelines for fasting triglyceride, November 2011. Lipid Profileon 46-48-5238Itgswdlwvfi [Mass/Vol]129 mg/dLNormal0-199[facility] Medical CenterComment on above:Result Comment: Cholesterol Guidelines: <200 Desirable 200-240 Borderline >240 UndesirablePerformed By: #### TSH, LIVP, CBC, LYTE, CREG, BNP, BUN, CA ####[address] [place] [phone] Director: Sharath Dennis MD#### GLYHGB, VD25, LIPR ####[facility] [place], [place] 197[address] Lab Director: MARCO Coffmanholesterol in HDL [Mass/Vol]79 mg/dLNormal>40[facility] Comment on above:Result Comment: HDL Guidelines: <40 Undesirable 40-59 Borderline >59 DesirablePerformed By: #### TSH, LIVP, CBC, LYTE, CREG, BNP, BUN, CA ####[address] [place] [phone] Director: Sharath Dennis MD#### GLYHGB, VD25, LIPR ####[facility] HospitalOmnikles [address] [place], [place] 0496[address] Lab Director: MARCO Coffmanholesterol in LDL [Mass/Vol]42 mg/dLNormal0-100[facility] Comment on above:Result Comment: LDL Guidelines: <100 Desirable 100-129 Near to/above Desirable 130-159 Borderline >159 Undesirable Direct (measured) LDL and calculated LDL are not interchangeable tests.Performed By: #### TSH, LIVP, CBC, LYTE, CREG, BNP, BUN, CA ####[address] [place] [address]([facility])[phone] Director: Sharath Dennis MD#### GLYHGB, VD25, LIPR ####[address] [place], [place] 1732[address] Lab Director: MARCO Coffmanholesterol in VLDL [Mass/Vol]8 mg/dLNormal1-30[facility] Medical CenterComment on above:Performed By: #### TSH, LIVP, CBC, LYTE, CREG, BNP, BUN, CA ####[address] [place], [place] [address] Lab Director: Sharath Dennis MD#### ANDREIHGSunil, VD25, LIPR ####[address] [id number] Lab Director: MARCO Coffmanholesterol.total/Cholesterol in HDL [Mass ratio]1.6 {ratio}Normal<5.0[facility] Medical CenterComment on above: Performed By: #### TSH, LIVP, CBC, LYTE, CREG, BNP, BUN, CA ####[address] [place], [place] [address] Lab Director: Sharath Dennis MD#### GLYHGB, VD25, LIPR ####[address] [place] [address] Lab Director: Wellington Back MDTriglyceride [Mass/Vol]40 mg/dLNormal<150[facility] HospitalComment on above:Result Comment: Triglyceride Guidelines: <150 Desirable 150-199 Borderline 200-499 High >499 Very high Based on AHA Guidelines for fasting triglyceride, November 2011.Performed By: #### TSH, LIVP, CBC, LYTE, CREG, BNP, BUN, CA ####[address] [place] [address])[phone] Director: Sharath Dennis MD#### GLYHGB, VD25, LIPR ####[address] [place], [place] [address])[phone] Director: Wellington Back MDLiver Profileon 10-24-2024 Albumin [Mass/Vol]4.2 g/dLNormal3.5-5.2[facility] HospitalComment on above: Performed By: #### TSH, LIVP, CBC, LYTE, CREG, BNP, BUN, CA ####[address] [place], [place] [address])[phone] Director: Sharath Dennis MD#### GLYHGSunil, VD25, LIPR ####[address] [place], [place] [address])[phone] Director: Wellington Back MDAlbumin/Glob Ratio1.0Dismea3.0-2.5[facility] Medical CenterComment on above:Performed By: #### TSH, LIVP, CBC, LYTE, CREG, BNP, BUN, CA ####[address] [place] [id number])[phone] Director: Sharath Dennis MD#### GLYHGB, VD25, LIPR ####[address] [place] [address] Lab Director: Jose Luis Coffmankaline Phos96 U/LNormal 35-104C[facility] Hospital Medical CenterComment on above:Performed By: #### TSH, LIVP, CBC, LYTE, CREG, BNP, BUN, CA ####[address] [place] [address] Lab Director: Sharath Dennis MD#### GLYHGB, VD25, LIPR ####[address] [address] Lab Director: Wellington Back MDALT [Catalytic activity/Vol]10 U/ZCgajou95-56Cywud[address] [place], [place] [address]Comment on above:Performed By: #### TSH, LIVP, CBC, LYTE, CREG, BNP, BUN, CA ####[address] [place] [address] Lab Director: Sharath Dennis MD#### GLYHGB, VD25, LIPR ## ##[address] [address] Lab Director: Wellington Back MDAST [Catalytic activity/Vol]17 U/VHkkkqg07-26Qsjtj[address] [place], [place] [address]Comment on above:Performed By: #### TSH, LIVP, CBC, LYTE, CREG, BNP, BUN, CA ####[address] [place] [address] Lab Director: Sharath Dennis MD#### GLYHGSunil, VD25, LIPR ## ##[address] [address] Lab Director: Wellington Back MDBilirubin [Mass/Vol]0.5 mg/dLNormal0.00-1.20[facility] Medical CenterComment on above:Performed By: #### TSH, LIVP, CBC, LYTE, CREG, BNP, BUN, CA ####[address] [place] [address] Lab Director: Sharath Dennis MD#### GLYHGB, VD25, LIPR ## ##[address] [place] [address] Lab Director: Dominick Coffmanirubin, Indirect0.3 mg/dLNormal0.0-1.0[facility] Comment on above:Performed By: #### TSH, LIVP, CBC, LYTE, CREG, BNP, BUN, CA ####[address] [place] [phone] Director: Sharath Dennis MD#### GLYHGSunil, VD25, LIPR ####[facility] [address] [place] [address] Lab Director: Dominick Coffmanirubin.indirect [Mass/Vol]0.2 mg/dLNormal0.00-0.30[facility] Medical CenterComment on above:Performed By: #### TSH, LIVP, CBC, LYTE, CREG, BNP, BUN, CA ####[address] [place], [place] [address])[phone] Director: Sharath Dennis MD#### GLYALMA, VD25, LIPR ## ##[address] [place] [address] Lab Director: TAYA Coffmanrotein [Mass/Vol]6.8 g/dLNormal6.6-8.7[facility] Comment on above:Performed By: #### TSH, LIVP, CBC, LYTE, CREG, BNP, BUN, CA ####[address] [place] [address]([facility])[phone] Director: Sharath Dennis MD#### GLYHGSunil, VD25, LIPR ####[address] [place] [address] Lab Director: Wellington Back MDNo Panel Informationon [id number] [facility] Interpretation and review of laboratory resultsAbnormalBon [facility] Bon [facility] HospitalTSHon [id number] Qn1.50 m[IU]/LBon [facility] HospitalThyroid Stim. Horm.on 92-24-3723Qiblrqu Stim. Horm.1.50 uIU/mLNormal 0.27-4.20[facility] Medical CenterComment on above:Performed By: #### TSH, LIVP, CBC, LYTE, CREG, BNP, BUN, CA ####[address] [place], [place] [id number] Lab Director: Sharath Dennis MD#### MILLY, VD25, LIPR ####[facility] [address] [place], [place] [id number] Lab Director: Wellington Back MDVitamin D 25 Hydroxyon 160445-avuxlfxkqclxyx D3 [Mass/Vol]85.1 ng/mL30.0 - 100.0 ng/mLBon Secours Mary Immaculate HospitalComment on above: Reference Range: Vitamin D status Range Deficiency <20 ng/mL Mild Deficiency 20-30 ng/mL Sufficiency 30-100 ng/mL Toxicity >100 ng/mL Vitamin D 25 OHon 27-94-7444Apfrkxk D 25 OH85.1 ng/dYBgfejh63.0-100.0[facility] Hospital Medical CenterComment on above:Result Comment: Reference Range: Vitamin D status Range Deficiency <20 ng/mL Mild Deficiency 20-30 ng/mL Sufficiency 30-100 ng/mL Toxicity >100 ng/mLPerformed By: #### TSH, LIVP, CBC, LYTE, CREG, BNP, BUN, CA ####[address] [place], [place] [phone] Director: Sharath Dennis MD#### MILLY, VD25, LIPR ####[facility] [address] [place], [place] 6[address]08 Lab Director: Wellington Back [facility] with Auto Differentialon [id number] (Bld) [#/Vol]Bon [facility] HospitalBasophils/100 WBC (Bld)0 %0 - 2 %[facility] Eosinophils (Bld) [#/Vol]0.27 10*3/uLBon Secours Mercy HealthEosinophils/100 WBC (Bld)4 %1 - 4 %[facility]y HealthErythrocyte distribution width (RBC) [Ratio]13.6 %11.8 - 14.4 %[facility] HealthHematocrit (Bld) [Volume fraction]34.5 %Low36.3 - 47.1 %[facility] HealthHemoglobin (Bld) [Mass/Vol]11 g/dLLow11.9 - 15.1 g/dLBon Secours Mercy HealthImmature granulocytes (Bld) [#/Vol]0.03 10*3/uLBon [facility]ours Mercy HealthImmature granulocytes/100 WBC (Bld)0 %0[facility]y HealthInterpretation and review of laboratory resultsAbnormalBon Secours Mercy HealthLymphocytes/100 WBC (Bld)25 %24 - 43 %[facility]y HealthLymphocytes/100 WBC (Bld)1.72 %[facility]y HealthMCH (RBC) [Entitic mass]30.3 pg25.2 - 33.5 pgBon Secours [facility] Memorial HospitalHC (RBC) [Mass/Vol]31.9 g/dL28.4 - 34.8 g/dLBon Secours [facility] Hospitaly HealthMCV (RBC) [Entitic vol]95 fL82.6 - 102.9 fLBon Secours Mercy HealthMonocytes/100 WBC (Bld)15 %High3 - 12 %[facility]y HealthMonocytes/100 WBC (Bld)1.03 %[facility]y HealthNeutrophils/100 WBC (Bld)56 %36 - 65 %[facility]y HealthNucleated RBC/100 WBC (Bld) [Ratio]0 %0.0 per 100 WBCBon Secours [facility] North Hospitaly HealthPlatelet mean volume (Bld) [Entitic vol]10.2 fL8.1 - 13.5 fLBon Secours [facility] North Hospitaly HealthPlatelets (Bld) [#/Vol]226 10*3/uLBon [facility] Hospitaly HealthRBC (Bld) [#/Vol]3.63 10*6/uLLow3.95 - 5.11 m/uLBon [facility] Hospitaly HealthSegmented neutrophils/100 WBC (Bld)3.77 %Bon [facility] HospitalWBC other (Bld) [#/Vol] 6.8Bon [facility] HospitalBon [facility] with Diffon 08-18-2024 Abs. Basophil<0.21Aqtgsl3.00-0.20[facility] HospitalComment on above:Performed By: #### LACTIC #### [address] [place], [place] [address] Phlebotomy Technician: Herber Howell.Imm.Granulocyte0.03 k/uLNormal0.00-0.30MerKettering Health Miamisburg HospitalComment on above:Performed By: #### LACTIC #### [address] [place] [address] Phlebotomy Technician: MDAbs. DanteNeutrophil (Seg)3.77 k/uLNormal1.50-8.10[facility] HospitalComment on above:Performed By: #### LACTIC #### [address] [place], [place] [address] Phlebotomy Technician: Sharath Dennis MDBasophils/100 WBC (Bld)0 %Normal0-2[facility] HospitalComment on above:Performed By: #### LACTIC #### [address] [place], [place] [address] Phlebotomy Technician: JOSE MARIA Howellosinophils (Bld) [#/Vol]0.27 10*3/uLNormal 0.00-0.44MerKettering Health Miamisburg HospitalComment on above:Performed By: #### LACTIC #### [address] [place] [address] Phlebotomy Technician: JOSE MARIA Howellosinophils/100 WBC (Bld)4 %Normal1-4[facility] HospitalComment on above:Performed By: #### LACTIC #### [address] [place], [facility]83 Phlebotomy Technician: Sharath Dennis MDErythrocyte distribution width (RBC) [Ratio]13.6 % Saccqy56.8-14.4[facility] Medical CenterComment on above:Performed By: #### LACTIC #### [address] [place] [address] Phlebotomy Technician: Sharath Dennis MDHematocrit (Bld) [Volume fraction]34.5 %Low 36.3-47.1MFayette County Memorial Hospital HospitalComment on above:Performed By: #### LACTIC #### [address] [place] [address] Phlebotomy Technician: Sharath Dennis MDHemoglobin (Bld) [Mass/Vol]11.0 g/dLLow11.9-15.1 [facility] Medical CenterComment on above:Performed By: #### LACTIC #### [address] [place], [facility]83 Phlebotomy Technician: Sharath Dennis MDImmature granulocytes/100 WBC (Bld)0 %Bcwkai8EonljCincinnati Children'S Hospital Medical CenterComment on above:Performed By: #### LACTIC #### [address] [place], [place] [address] Phlebotomy Technician: Sharath Dennis MDLymphocytes (Bld) [#/Vol]1.72 10*3/uLNormal 1.10-3.70[facility] Medical CenterComment on above:Performed By: #### LACTIC #### [address] [place], [facility]83 Phlebotomy Technician: Anselmo Howellmphocytes/100 WBC (Bld)25 %Curvon26-21PgaigCincinnati Children'S Hospital Medical CenterComment on above:Performed By: #### LACTIC #### [address] [place] [address] Phlebotomy Technician: LIANA HowellCH (RBC) [Entitic mass]30.3 epVtpzyc84.2-33.5 [facility] HospitalComment on above:Performed By: #### LACTIC #### [address] [place], [place] [address] Phlebotomy Technician: LIANA HowellCHC (RBC) [Mass/Vol]31.9 g/dGQnrlsg45.4-34.8[facility] HospitalComment on above:Performed By: #### LACTIC #### [address] [place] [address] Phlebotomy Technician: LIANA HowellCV (RBC) [Entitic vol]95.0 nZAcrvqm44.6-102.9 [facility] Medical CenterComment on above:Performed By: #### LACTIC #### [address] [place] [address] Phlebotomy Technician: LIANA Howellonocytes (Bld) [#/Vol]1.03 10*3/uLNormal0.10-1.20 [facility] Medical CenterComment on above:Performed By: #### LACTIC #### [address] [place] [address] Phlebotomy Technician: LIANA Howellonocytes/100 WBC (Bld)15 %High3-12[facility] Medical CenterComment on above:Performed By: #### LACTIC #### [address] [place] [address] Phlebotomy Technician: Sharath Dennis MDNeutrophil (Seg)56 %Qubmaq28-03SlomiCincinnati Children'S Hospital Medical CenterComment on above:Performed By: #### LACTIC #### [address] [place] [address] Phlebotomy Technician: Sharath Dennis MDNRBC Automated0.0 per 100 WBCNormal0.0[facility] HospitalComment on above:Performed By: #### LACTIC #### [facility] [address] [place] [address] Phlebotomy Technician: Gina Howell mean volume (Bld) [Entitic vol]10.2 fL Normal8.1-13.5[facility] HospitalComment on above:Performed By: #### LACTIC #### [facility] [address] [place] [address] Phlebotomy Technician: Melida Howell (Bld) [#/Vol]226 10*3/yYFyirqv763-538 [facility] HospitalComment on above:Performed By: #### LACTIC #### [address] [place], [place] [address] Phlebotomy Technician: SAMMI Howell (Bld) [#/Vol]3.63 10*6/uLLow3.95-5.11[facility] HospitalComment on above:Performed By: #### LACTIC #### [address] [place], [place] [address] Phlebotomy Technician: STEFAN Howell (Bld) [#/Vol]6.8 10*3/uLNormal3.5-11.3Mselect medical specialty hospital - trumbully Columbus HospitalComment on above:Performed By: #### LACTIC #### [facility] [address] [place], [place] [address] Phlebotomy Technician: MARCO Howellgill 53-05-5329Ptyysfo [Mass/Vol]4.2 g/dL3.5 - 5.2 g/dLBon [facility] HospitalAlbumin/Globulin [Mass ratio]1.7 {ratio}1.0 - 2.5Bon [facility] HospitalALP [Catalytic activity/Vol]85 U/L35 - 104 U/LBon [facility] HospitalALT [Catalytic activity/Vol]15 U/L10 - 35 U/LBon [facility] HospitalAnion gap [Moles/Vol]15 mmol/L9 - 16 mmol/LBon [facility] Health AST [Catalytic activity/Vol]20 U/L10 - 35 U/LBon [facility]ours [facility] HealthBilirubin [Mass/Vol]0.3 mg/dL0.00 - 1.20 mg/dLBon [facility] Hospitaly HealthCalcium [Mass/Vol] 9.2 mg/dL8.6 - 10.4 mg/dLBon Secours [facility] HealthChloride [Moles/Vol]111 mmol/L High98 - 107 mmol/LBon [facility]ours [facility] HealthCO2 [Moles/Vol]19 mmol/LLow20 - 31 mmol/LBon [facility] HealthCreatinine [Mass/Vol]1.5 mg/dLHigh0.50 - 0.90 mg/dLBon Secours Doctors [facility] HealthEst, Glom Filt Liwa68Hbk- PINFBon SecMercy Health – The Jewish HospitalComment on above: These results are not intended [...] therapy that affects renal tubular secretion. Glucose [Mass/Vol]104 mg/oYItua92 - 99 mg/dLBon SecMorehouse General Hospital HealthPotassium [Moles/Vol]4.3 mmol/L3.7 - 5.3 mmol/LBon SecMorehouse General Hospital HealthProtein [Mass/Vol] 6.7 g/dL6.6 - 8.7 g/dLBon SecMorehouse General Hospital HealthSodium [Moles/Vol]145 mmol/L136 - 145 mmol/LBon SecMorehouse [facility] Hospital HealthUrea nitrogen [Mass/Vol]30 mg/dLHigh8 - 23 mg/dLBon [facility] PlumWillowUrea nitrogen/Creatinine [Mass ratio]20 mg/mg9 - 20 Bon SecMore[facility] HealthCT HEAD WO CONTRASTon [id number] HEAD WO CONTRAST EXAMINATION: CT OF THE [...] Signed by: Madina Gómez MD 08/18/24 Final resultNormalMercy Griffin Hospital HEAD NECK W CONTRASTon [id number] HEAD NECK W CONTRASTEXAMINATION: CT OF THE HEAD WITHOUT CONTRAST; CTA [...] Signed by: Madina Gómez MD 08/18/24 Final resultNormalMerThe Hospital of [facility] Metabolic Profon 99-53-5193Cyrmilx [Mass/Vol]4.2 g/dLNormal3.5-5.2[facility] HospitalComment on above:Performed By: #### LACTIC #### [facility] [address] [place] [address] [place] [address] Phlebotomy Technician: Sharath Dennis MDAlbumin/Glob Ratio1.6Mqlulb9.0-2.5[facility] Medical CenterComment on above:Performed By: #### LACTIC #### [address] [place] [address] Phlebotomy Technician: Lenka Howell Phos85 U/WVlagej46-431Duowq Mt. [facility]inai HospitalComment on above:Performed By: #### LACTIC #### [address] [place], [place] [address] Phlebotomy Technician: Sharath Dennis MDALT [Catalytic activity/Vol]15 U/BNbnzyy73-86Bzaef [facility]in HospitalComment on above:Performed By: #### LACTIC #### [address] [place], [place] 0[address]83 Phlebotomy Technician: Sharath Dennis MDAnion gap [Moles/Vol]15 mmol/LNormal9-16[facility] HospitalComment on above:Performed By: #### LACTIC #### [address] [place], [place] [address]83 Phlebotomy Technician: Sharath Dennis MDAST [Catalytic activity/Vol]20 U/TWdfyfy58-61Jujfi [facility]in HospitalComment on above:Performed By: #### LACTIC #### [address] [place], [place] 64[address]383 Phlebotomy Technician: Sharath Dennis MDBilirubin [Mass/Vol]0.3 mg/dLNormal0.00-1.20MerDanbury HospitalComment on above:Performed By: #### LACTIC #### [facility] [address] [place] [address] Dr. [place], [place] [id number] Phlebotomy Technician: Sharath Dennis MDBUN/CRE Oxzli01Qqeohd2-56Grlub [facility] Comment on above:Performed By: #### LACTIC #### [address] [place], [place] 04[address]683 Phlebotomy Technician: Sharath Dennis MDCalcium [Mass/Vol]9.2 mg/dLNormal8.6-10.4MerKettering Health Miamisburg HospitalComment on above:Performed By: #### LACTIC #### [address] [place], [place] [address] Phlebotomy Technician: MARCO Howellhloride [Moles/Vol]111 mmol/HVeao21-993OoalpCincinnati Children'S Hospital Medical CenterComment on above:Performed By: #### LACTIC #### [address] [place], [place] [address] Phlebotomy Technician: MARCO HowellO2 [Moles/Vol]19 mmol/AByz81-37SbtmuCincinnati Children'S Hospital Medical CenterComment on above:Performed By: #### LACTIC #### [address] [place], [place] [address] Phlebotomy Technician: MARCO Howellreatinine [Mass/Vol]1.5 mg/dLHigh0.50-0.90[facility] Medical CenterComment on above:Performed By: #### LACTIC #### [address] [place], [place] 217[address]83 Phlebotomy Technician: Sharath Dennis MDGFR/1.73 sq M.predicted among non-blacks MDRD (S/P/Bld) [Vol rate/Area]34 mL/min/{1.73_m2}Low>60[facility] Medical CenterComment on above:Result Comment: These results are not intended for [...] or following therapy that affects renal tubular secretion.Performed By: #### LACTIC #### [address] [place], [place] [address]83 Phlebotomy Technician: Sharath Dennis MDGlucose [Mass/Vol]104 mg/dDUmqw19-29GsmkkSt. Rita's HospitalComment on above:Performed By: #### LACTIC #### [address] [place], [place] [address] Phlebotomy Technician: TAYA Howellotassium [Moles/Vol]4.3 mmol/LNormal3.7-5.3MercLawrence+Memorial HospitalComment on above:Performed By: #### LACTIC #### [facility] [address] [place] [address] Dr. [place], [place] [address]83 Phlebotomy Technician: Sharath Dennis MDProtein [Mass/Vol]6.7 g/dLNormal6.6-8.7[facility] Medical CenterComment on above:Performed By: #### LACTIC #### [facility] [address] [place] [address] Dr. [place], [place] [id number] Phlebotomy Technician: KAREN Howellodium [Moles/Vol]145 mmol/XLouqpi948-997MnizcCincinnati Children'S Hospital Medical CenterComment on above:Performed By: #### LACTIC #### [address] [place], [place] [address]83 Phlebotomy Technician: Sharath Dennis MDUrea nitrogen [Mass/Vol]30 mg/dLHigh8-23[facility] Medical CenterComment on above:Performed By: #### LACTIC #### [address] [place] [address] Phlebotomy Technician: Sharath Dennis MDGlucose, Whole Bloodon 28-71-4564Tncojsl [Mass/Vol]97 mg/dL74 - 100 mg/dLBon [facility] Glucose [Mass/Vol]97 mg/nEOjdvpb08-207OjgcmCincinnati Children'S Hospital Medical CenterMicroscopic Urinalysison 98-78-4225Wskendwbjo cells LM.HPF (Urine sed) [#/Area]0 TO 2Bon [facility] HospitalRBC LM.HPF (Urine sed) [#/Area]0 TO 2Bon [facility] HospitalWBC LM.HPF (Urine sed) [#/Area]0 TO 2Bon [facility] Medical CenterNo Panel Informationon 00-63-6912Rjazbtcukkljqv and review of laboratory resultsAbnormalHenrico Doctors' Hospital—Henrico CampusTSHon 99-31-7983ZHK Qn3.27 m[IU]/LBon [facility] Thyroid Stim. Horm.on 51-98-3683Ezpmktt Stim. Horm.3.27 uIU/mLNormal0.27-4.20 [facility] on above:Performed By: #### FT4 ####[address] [place] [address] Lab Director: Wellington Back MD#### TSH ####[address] [place], [place] [address] Lab Director: Sharath Dennis MDThyroxine, Freeon 64-03-8487Uewiuthrs, Free1.2 ng/dLNormal0.92-1.68[facility] on above:Performed By: #### FT4 ####[address] [place] [address] Lab Director: Wellington Back MD#### TSH ####[address] , [place] [id number] Lab Director: Sharath Dennis MDTrlio 61-45-2763Aoxdlzvvzshvus and review of laboratory resultsAbnoHospital Corporation of Americanin I.cardiac High sensitivity method [Mass/Vol]28 ng/LHigh0 - 14 ng/LBon [facility] on above: High Sensitivity Troponin values cannot be compared with other Troponin methodologies.[facility] Hospitaloponin, High Sens28 ng/LHigh0-14[facility] on above:Result Comment: High Sensitivity Troponin values cannot be compared with other Troponin methodologies.Performed By: #### TROPI ####[address] [place] [address] Lab Director: Sharath Dennis MD Troponin I.cardiac High sensitivity method [Mass/Vol]34 ng/LHigh0 - 14 ng/LBon [facility] on above:High Sensitivity Troponin values cannot be compared with other Troponin methodologies.Troponin, High Sens34 ng/LHigh0-14 [facility] Medical CenterComment on above:Result Comment: High Sensitivity Troponin values cannot be compared with other Troponin methodologies.Performed By: #### LACTIC #### [facility] [address] [place] [address] [place] [address] Phlebotomy Technician: CHANDLER Howell w/Reflex Cultureon 59-00-5459Pjioexhqb, SemiQt,UrNegativeNormalNEGMercy Columbus HospitalComment on above:Performed By: #### REYMUNDOICAO, UAX ####[address] [place] [address] Lab Director: Lowell Howell, UrineNegativeNormalNEG [facility] Medical CenterComment on above:Performed By: #### SHELBI, UAX ####[address] [place] [address] Lab Director: MARCO Howelllarity (U)ClearNormalCLEARCincinnati Children'S Hospital Medical Center Comment on above:Performed By: #### SHELBI, UAX ####[address] [place] [address] Lab Director: MARCO Howellolor (U)YellowNormalYELMercy Columbus HospitalComment on above:Performed By: #### REYMUNDOICAO, UAX ####[address] [place] [address] Lab Director: Sharath Dennis MDGlucose Ql (U)NegativeNormal NEGMercy Columbus HospitalComment on above:Performed By: #### REYMUNDOICAO, UAX ####[address] [place] [phone] Director: Sharath Dennis MDKetones Ql (U)NegativeNormalNEGMercy Columbus HospitalComment on above:Performed By: #### UMICAO, UAX ####[address] [place] [address] Lab Director: Sharath Dennis MDLeukocyte esterase Test strip Ql (U)NegativeNormalNEGCincinnati Children'S Hospital Medical CenterComment on above:Performed By: #### UMICAO, UAX ####[address] [place] [address] Lab Director: Sharath Dennis MDNitrite,UrNegativeNormalNEGCincinnati Children'S Hospital Medical CenterComment on above: Performed By: #### KATIEO, UAX ####[address] [place] [address] Lab Director: TAYA Howell,Ur6.0 Normal5.0-9.0[facility] Medical CenterComment on above:Performed By: #### SHELBI, UAX ####[address] , [place] [address] Lab Director: TAYA Howellrotein Ql (U)NegativeNormalNEG [facility] Medical CenterComment on above:Performed By: #### REYMUNDOICAO, UAX ####[address] [place] [address] Lab Director: KAREN Howellpec. Forestdale,Ur1.897Zmysba7.010-1.020[facility] HospitalComment on above:Performed By: #### UMICAO, UAX ####[address] [place] [address] Lab Director: Sharath Dennis MDUrobilinogen,UrNormalNormal0.0-1.0[facility] Medical CenterComment on above:Performed By: #### UMICAO, UAX ####[address] , [place] [id number] Lab Director: Sharath Dennis MD Urinalysis with Reflex to Cultureon 16-48-7077Rpunrkkai Ql (U)NegativeNEGATIVE [facility]y HealthClarity (U)ClearClearBon [facility] Hospitaly HealthColor (U) YellowYellowBon Secours [facility] North Hospitaly HealthGlucose Test strip (U) [Mass/Vol]Negative NEGATIVE mg/dLBon [facility]ours [facility] Hospitaly HealthHemoglobin Auto test strip Ql (U)Negative NEGATIVEBon Secours [facility] North Hospitaly HealthKetones (U) [Mass/Vol]NegativeNEGATIVE mg/dLBon [facility]ours [facility] Hospitaly HealthLeukocyte esterase Test strip Ql (U)NegativeNEGATIVEBon [facility]ours Mercy HealthNitrite Ql (U)NegativeNEGATIVEBon Secours Mercy HealthpH (U) 6 [pH]5.0 - 9.0[facility] HealthProtein (U) [Mass/Vol]NegativeNEGATIVE mg/dLBon Secours Mercy HealthSpecific gravity (U) [Rel density]1.011.010 - 1.020 Bon SecMore[facility] HealthUrobilinogen Qn (U)Normal0.0 - 1.0 EU/dLBon Secours [facility] Hospitaly HealthBon [facility] Hospitaly HealthUrinalysis,Microon 68-02-4417Xlbjzhbgev cells LM Ql (Urine sed)0 TO 8Swvmxr2-62Zqjog [facility] HospitalComment on above: Performed By: #### COURTNEY MARIO ####[address] , [facility]83 Lab Director: Daniel Howell RBC's0 TO 0Tyiizk3-0Jheve [facility] HospitalComment on above:Performed By: #### SHELBI UAX ####[facility] , [place] [id number] Lab Director: Daniel Howell WBC's0 TO 0Meinwd7-2Qsonp [facility] HospitalComment on above:Performed By: ###Tano MARIO UAX ####[facility] [place] [address] Lab Director: BONITA HowellR CHEST 1 VIEWon 36-10-0225OQ CHEST 1 VIEWEXAMINATION: ONE XRAY VIEW OF THE CHEST. PORTABLE [...] Signed by: Madina Gómez MD 08/18/24 Final resultNoTrinity Health System Twin City Medical CenterXR THORACIC SPINE (2 VIEWS)on 08-01-2024 XR THORACIC SPINE (2 VIEWS)EXAMINATION: 2 12 rib-bearing vertebral bodies. Slightly increased [...] Signed by: Mikael Thao MD 08/01/24 Final resultNoTrinity Health System Twin City Medical CenterCult,Urineon 75-07-0801Uydd,UrineSpecimen Description .CLEAN CATCH URINE Special Requests Site: Urine Culture NO GROWTH Report Status FINAL 07/27/2024Ohio Valley HospitalComment on above: Performed By: #### URC ####[facility] [id number] [facility] Director: Wellington Madoff, [facility] Lab[address] , [place] [id number] Lab Director: Sharath Dennis MDBrain Natri. Peptideon [id number] peptide B (Bld) [Mass/Vol]814 pg/mLHigh0-450Cincinnati Children'S Hospital Medical CenterComment on above:Performed By: #### BNP ####[address] [place] [phone] Director: Elian Howell Natriuretic Peptideon 07-26-2024 Interpretation and review of laboratory resultsAbnormalBon [facility] Natriuretic peptide B (Bld) [Mass/Vol]814 pg/mLHigh0 - 450 pg/mLHenrico Doctors' Hospital—Henrico CampusCBC with Auto Differentialon 07-26-2024 Basophils (Bld) [#/Vol][facility] HospitalBasophils/100 WBC (Bld)0 %0 - 2 % [facility] HospitalEosinophils (Bld) [#/Vol]0.3 10*3/uLBon Secours Mary Immaculate HospitalEosinophils/100 WBC (Bld)4 %1 - 4 %[facility] HospitalErythrocyte distribution width (RBC) [Ratio]13.6 %11.8 - 14.4 %[facility] Hematocrit (Bld) [Volume fraction]32.5 %Low36.3 - 47.1 %[facility] Hemoglobin (Bld) [Mass/Vol]10.3 g/dLLow11.9 - 15.1 g/dLBon [facility] Immature granulocytes (Bld) [#/Vol][facility] HospitalImmature granulocytes/100 WBC (Bld)0 %0[facility] HospitalInterpretation and review of laboratory resultsAbnormalBon Secours Mary Immaculate HospitalLymphocytes/100 WBC (Bld)20 %Low24 - 43 %[facility] HospitalLymphocytes/100 WBC (Bld)1.35 %[facility] HospitalMCH (RBC) [Entitic mass]30.5 pg25.2 - 33.5 pgBon [facility] HamiltonHC (RBC) [Mass/Vol]31.7 g/dL28.4 - 34.8 g/dLBon [facility] Health HamiltonV (RBC) [Entitic vol]96.2 fL82.6 - 102.9 fLBon Secours Mary Immaculate HospitalMonocytes/100 WBC (Bld)15 %High3 - 12 %[facility] HospitalMonocytes/100 WBC (Bld)1 %[facility] HospitalNeutrophils/100 WBC (Bld)61 %36 - 65 %[facility] HospitalNucleated RBC/100 WBC (Bld) [Ratio]0 %0.0 per 100 WBCBon [facility] HospitalPlatelet mean volume (Bld) [Entitic vol]9.8 fL8.1 - 13.5 fLBon Secours Mary Immaculate HospitalPlatelets (Bld) [#/Vol]245 10*3/uLBon [facility] HospitalRBC (Bld) [#/Vol]3.38 10*6/uLLow3.95 - 5.11 m/uLBon [facility] HospitalSegmented neutrophils/100 WBC (Bld)4.07 %Bon [facility] HospitalWBC other (Bld) [#/Vol] 6.8Bon [facility] Medical CenterCBC with Diffon 07-26-2024 Abs. Basophil<0.09Kiozln1.00-0.20C[facility] Hospital Medical CenterComment on above:Performed By: #### YUE, CDP ####[address] , [facility]83 [facility] Director: Herber Howell.Imm.Granulocyte<0.03 Normal0.00-0.30C[facility] Hospital Medical CenterComment on above:Performed By: #### YUE, CDP ####[address] [place] [phone] Director: Herber Howell.Neutrophil (Seg)4.07 k/uLNormal1.50-8.10 [facility] Hospital Medical CenterComment on above:Performed By: #### YUE, CDP ####[address] , [place] [address])[phone] Director: Sharath Dennis MDBasophils/100 WBC (Bld)0 %Normal0-2Mercy Columbus HospitalComment on above:Performed By: #### CP, CDP ####[address] , [facility]83 Lab Director: Sharath Dennis MDEosinophils (Bld) [#/Vol]0.30 10*3/uLNormal0.00-0.44[facility] Springfield HospitalComment on above:Performed By: #### CP, CDP ####[address] , [place] [address])[phone] Director: JOSE MARIA Howellosinophils/100 WBC (Bld)4 %Normal1-4[facility] Springfield HospitalComment on above:Performed By: #### CP, CDP ####[address] , [place] [address])[phone] Director: Sharath Dennis MD Erythrocyte distribution width (RBC) [Ratio]13.6 %Wboyom88.8-14.4C[facility] Hospital Medical CenterComment on above:Performed By: #### CP, CDP ####[address] , [place] [address])[phone] Director: Sharath Dennis MDHematocrit (Bld) [Volume fraction]32.5 %Low36.3-47.1MFayette County Memorial Hospital HospitalComment on above:Performed By: #### CP, CDP ####[address] , [place] [address])[phone] Director: Sharath Dennis MDHemoglobin (Bld) [Mass/Vol]10.3 g/dLLow11.9-15.1MSt. Rita's Hospital Comment on above:Performed By: #### CP, CDP ####[address] , [facility]83 Lab Director: Sharath Dennis MDImmature granulocytes/100 WBC (Bld)0 %Arlbzi1XaksuCincinnati Children'S Hospital Medical CenterComment on above:Performed By: #### CP, CDP ####[address] , [phone] Director: Sharath Dennis MD Lymphocytes (Bld) [#/Vol]1.35 10*3/uLNormal1.10-3.70[facility] HospitalComment on above:Performed By: #### CP, CDP ####[address] , [place] [address])[phone] Director: Sharath Dennis MD Lymphocytes/100 WBC (Bld)20 %Six75-10WngdwCincinnati Children'S Hospital Medical CenterComment on above: Performed By: #### CP, CDP ####[address] , [phone] Director: LIANA HowellCH (RBC) [Entitic mass]30.5 ylWxrptv86.2-33.5C[facility] Hospital Medical CenterComment on above:Performed By: #### CP, CDP ####[address] , [facility]83419)[phone] Director: LIANA HowellCHC (RBC) [Mass/Vol]31.7 g/dL Lnubqu11.4-34.8[facility] HospitalComment on above:Performed By: #### CP, CDP ####[address] , [place] [phone] Director: LIANA HowellCV (RBC) [Entitic vol]96.2 uBVkqnzg77.6-102.9 [facility] Hospital Medical CenterComment on above:Performed By: #### CP, CDP ####[address] , [phone] Director: LIANA Howellonocytes (Bld) [#/Vol]1.00 10*3/uLNormal0.10-1.20 [facility] HospitalComment on above:Performed By: #### CP, CDP ####[address] [place] [address] Lab Director: LIANA Howellonocytes/100 WBC (Bld)15 %High3-12[facility] HospitalComment on above:Performed By: #### CP, CDP ####[address] [place] [address] Lab Director: Sharath Dennis MDNeutrophil (Seg)61 %Inamgt15-18Jefsn Tiffin HospitalComment on above: Performed By: #### CP, CDP ####[address] [place] [address] Lab Director: Sharath Dennis MDNRBC Automated0.0 per 100 WBCNormal0.0[facility] HospitalComment on above:Performed By: #### CP, CDP ####[address] [place] [phone] Director: TAYA Howelllatelet mean volume (Bld) [Entitic vol]9.8 fLNormal8.1-13.5C[facility] Hospital Medical CenterComment on above:Performed By: #### CP, CDP ####[address] [place] [address] Lab Director: Sharath Dennis MDPlatelets (Bld) [#/Vol]245 10*3/jQMgjpbz092-166Qvqvm [facility] HospitalComment on above:Performed By: #### CP, CDP ####[address] [place] [phone] Director: Sharath Dennis MDRBC (Bld) [#/Vol]3.38 10*6/uLLow 3.95-5.11[facility] HospitalComment on above:Performed By: #### CP, CDP ####[address] [place] [phone] Director: STEFAN Howell (Bld) [#/Vol]6.8 10*3/uLNormal3.5-11.3 [facility] HospitalComment on above:Performed By: #### CP, CDP ####[address] [place] [address] Lab Director: MARCO Howellomp Metabolic Profon 77-51-0160Fnedykg [Mass/Vol]4.1 g/dLNormal3.5-5.2MFayette County Memorial Hospital HospitalComment on above:Performed By: #### CP, CDP ####[address] [place] [phone] Director: Sharath Dennis MDAlbumin/Glob Ratio1.5Qnhatp9.0-2.5[facility] HospitalComment on above:Performed By: #### CP, CDP ####[address] [place] [address] Lab Director: Sharath Dennis MDAlkaline Phos90 U/ZAgwimr89-211Kgnuw [facility]iffin HospitalComment on above:Performed By: #### CP, CDP ####[address] [place] [address] Lab Director: Sharath Dennis MDALT [Catalytic activity/Vol]15 U/YOmysny91-40Xalbr [facility]in HospitalComment on above: Performed By: #### CP, CDP ####[address] [place] [address] Lab Director: Sharath Dennis MDAnion gap [Moles/Vol]12 mmol/LNormal9-16Mer[facility] Columbus HospitalComment on above:Performed By: #### CP, CDP ####[address] [place] [address] Lab Director: Sharath Dennis MDAST [Catalytic activity/Vol] 19 U/TIxdsuu54-04ExnppCincinnati Children'S Hospital Medical CenterComment on above:Performed By: #### CP, CDP ####[address] [place] [phone] Director: Sharath Dennis MDBilirubin [Mass/Vol]0.3 mg/dLNormal 0.00-1.20[facility] Medical CenterComment on above:Performed By: #### CP, CDP ####[address] [place] [phone] Director: Sharath Dennis MDBUN/CRE Htjku84Wldr0-34OzxrlOhiohealth Van Wert Hospital on above:Performed By: #### CP, CDP ####[address] [place] [address] Lab Director: MARCO Howellalcium [Mass/Vol]9.4 mg/dLNormal8.6-10.4[facility] Hospital Medical CenterComment on above:Performed By: #### CP, CDP ####[address] [place] [address] Lab Director: MARCO Howellhloride [Moles/Vol]105 mmol/TLzrakm64-883YgjqcCincinnati Children'S Hospital Medical CenterComment on above:Performed By: #### CP, CDP ####[address] [place] [address] Lab Director: Sharath Dennis MDCO2 [Moles/Vol]22 mmol/L Myheph86-46IwwghCincinnati Children'S Hospital Medical CenterComment on above:Performed By: #### CP, CDP ####[address] [place] [phone] Director: MARCO Howellreatinine [Mass/Vol]1.4 mg/dLHigh0.50-0.90 [facility] Hospital Medical CenterComment on above:Performed By: #### CP, CDP ####[address] , [place] [id number] Lab Director: Sharath Dennis MDGFR/1.73 sq M.predicted among non-blacks MDRD (S/P/Bld) [Vol rate/Area]39 mL/min/{1.73_m2}Low>60MerKettering Health Miamisburg HospitalComment on above:Result Comment: These results are not intended for [...] or following therapy that affects renal tubular secretion.Performed By: #### CP, CDP ####[address] [place] [phone] Director: Sharath Dennis MDGlucose [Mass/Vol]90 mg/kMLljbkg22-43Djxic Columbus HospitalComment on above:Performed By: #### CP, CDP ####[address] , [place] [id number] Lab Director: TAYA Howellotassium [Moles/Vol]4.5 mmol/LNormal3.7-5.3Mselect medical specialty hospital - trumbully Columbus HospitalComment on above:Performed By: #### CP, CDP ####[address] , [place] [id number] Lab Director: Sharath Dennis MDProtein [Mass/Vol]6.7 g/dLNormal6.6-8.7[facility] HospitalComment on above:Performed By: #### CP, CDP ####[address] , [place] [address] Lab Director: KAREN Howellodium [Moles/Vol]139 mmol/RRxackv651-042XapfnCincinnati Children'S Hospital Medical CenterComment on above: Performed By: #### CP, CDP ####[facility] , [place] [id number] lab Director: Sharath Dennis MDUrea nitrogen [Mass/Vol]33 mg/dLHigh8-23[facility] Hospital Medical CenterComment on above:Performed By: #### CP, CDP ####[facility] , [place] [id number] lab Director: MARCO Howellomprehensive Metabolic Panelon 02-05-4109Cbejyoc [Mass/Vol]4.1 g/dL3.5 - 5.2 g/dLBon [facility] Albumin/Globulin [Mass ratio]1.6 {ratio}1.0 - 2.5[facility]y HealthALP [Catalytic activity/Vol]90 U/L35 - 104 U/LBon [facility]ours [facility] Hospitaly HealthALT [Catalytic activity/Vol]15 U/L10 - 35 U/LBon [facility]ours [facility] Hospitaly HealthAnion gap [Moles/Vol]12 mmol/L9 - 16 mmol/LBon [facility] Hospitaly HealthAST [Catalytic activity/Vol]19 U/L10 - 35 U/LBon [facility] Hospitaly HealthBilirubin [Mass/Vol]0.3 mg/dL0.00 - 1.20 mg/dL [facility] Hospitaly HealthCalcium [Mass/Vol]9.4 mg/dL8.6 - 10.4 mg/dLBon [facility]ours [facility] Hospitaly HealthChloride [Moles/Vol]105 mmol/L98 - 107 mmol/LBon [facility] Hospitaly HealthCO2 [Moles/Vol]22 mmol/L20 - 31 mmol/LBon [facility] Hospitaly HealthCreatinine [Mass/Vol]1.4 mg/dLHigh0.50 - 0.90 mg/dLBon Secours [facility] Hospitaly HealthEst, Glom Filt Wbhz35Swa- PINFBon [facility] HospitalComment on above: These results are not intended [...] therapy that affects renal tubular secretion. Glucose [Mass/Vol]90 mg/dL74 - 99 mg/dLBon [facility] HospitalInterpretation and review of laboratory resultsAbnormalBon [facility] Imm[facility]ulate HospitalPotassium [Moles/Vol]4.5 mmol/L3.7 - 5.3 mmol/LBon [facility] HospitalProtein [Mass/Vol] 6.7 g/dL6.6 - 8.7 g/dLBon [facility] HospitalSodium [Moles/Vol]139 mmol/L136 - 145 mmol/LBon [facility] HospitalUrea nitrogen [Mass/Vol]33 mg/dLHigh8 - 23 mg/dLBon [facility] HospitalUrea nitrogen/Creatinine [Mass ratio]24 mg/mgHigh9 - 20Bon [facility] Medical CenterMicroscopic Urinalysison 22-52-1828Ndiffvxp LM Ql (Urine sed)TRACEAbnormalNonHospital Corporation of America Epithelial cells LM.HPF (Urine sed) [#/Area]2 TO 5Bon [facility] Interpretation and review of laboratory resultsAbnormWellmont Health System Mucus Ql (Urine sed)TRACEAbnormalNoneBon [facility] HospitalRBC LM.HPF (Urine sed) [#/Area]0 TO 2Bon [facility] HospitalWBC LM.HPF (Urine sed) [#/Area]2 TO 5 Bon [facility] Medical CenterUA w/Reflex Cultureon 07-26-2024 Bilirubin, SemiQt,UrNegativeNormalNEGMercy Mt. Sinai HospitalComment on above: Performed By: #### SHELBI UAX ####[facility] [place] [address] [facility] Director: Lowell Howell, UrineNegativeNormalNEGMercy Mt. Sinai HospitalComment on above:Performed By: #### SHELBI, UAX ####[address] [place] [address] Lab Director: MARCO Howelllarity (U)ClearNormalCLEARMercy Columbus HospitalComment on above:Performed By: #### UMICAO, UAX ####[address] [place] [address] Lab Director: MARCO Howellolor (U)YellowNormalYELMercy Columbus HospitalComment on above:Performed By: #### UMICAO, UAX ####[address] [place] [address] Lab Director: Sharath Dennis MD Glucose Ql (U)NegativeNormalNEGMercy Columbus HospitalComment on above:Performed By: #### SHELBI, UAX ####[address] [place] [address] Lab Director: Sharath Dennis MDKetones Ql (U) NegativeNormalNEGMercy Columbus HospitalComment on above:Performed By: #### REYMUNDOICAO, UAX ####[address] [place] [address] Lab Director: Sharath Dennis MDLeukocyte esterase Test strip Ql (U)TRACEAbnormalNEGMercy Columbus HospitalComkalkaska memorial health center on above:Performed By: #### UMICAO, UAX ####[address] [place] [address] Lab Director: Sharath Dennis MDNitrite,UrNegativeNormalNEGMercy Columbus HospitalComment on above:Performed By: #### UMICAO, UAX ####[address] [place] [address] Lab Director: Sharath Dennis [facility],Ur6.5Gxdnwn5.0-9.0[facility] HospitalComment on above:Performed By: #### SHELBI, UAX ####[address] , [place] [address] [facility] Director: TAYA Howellrotein Ql (U)NegativeNormalNEGCincinnati Children'S Hospital Medical CenterComment on above:Performed By: #### SHELBI, UAX ####[address] [place] [address] [facility] Director: KAREN Howellpec. Forestdale,Ur1.015Normal 1.010-1.020[facility] Medical CenterComment on above:Performed By: #### SHELBI, UAX ####[address] [place] [phone] Director: Sharath Dennis MDUrobilinogen,UrNormalNormal0.0-1.0C[facility] Medical CenterComment on above:Performed By: #### SHELBI, UAX ####[address] , [place] [id number] Lab Director: Sharath Dennis MDUrinalysis with Reflex to Cultureon [id number] Ql (U) NegativeNEGATIVEBon [facility]ours [facility]cy HealthClarity (U)ClearClearBon [facility] HealthColor (U)YellowYellowBon [facility] HealthGlucose Test strip (U) [Mass/Vol]NegativeNEGATIVE mg/dLBon [facility]ours [facility] HealthHemoglobin Auto test strip Ql (U)NegativeNEGATIVEBon [facility] HealthInterpretation and review of laboratory resultsAbnormalBon [facility]ours [facility]cy HealthKetones (U) [Mass/Vol] NegativeNEGATIVE mg/dLBon [facility] HealthLeukocyte esterase Test strip Ql (U)TRACEAbnormalNEGATIVEBon [facility] Hospitaly HealthNitrite Ql (U)NegativeNEGATIVE [facility] Hospitaly HealthpH (U)6 [pH]5.0 - 9.0[facility] HealthProtein (U) [Mass/Vol]NegativeNEGATIVE mg/dLBon [facility] HospitalSpecific gravity (U) [Rel density]1.0151.010 - 1.020Bon [facility] HospitalUrobilinogen Qn (U)Normal 0.0 - 1.0 EU/dLBon [facility] HospitalBon [facility] HospitalUrinalysis,Micro on 08-52-1901WxkbjcriTLKBPYnkmahqsOEBVEczin Tiffin HospitalComment on above: Performed By: #### SHELBI UAX ####[address] , [place] [id number] Lab Director: Sharath Dennis MD Epithelial cells LM Ql (Urine sed)2 TO 2Vaphin9-37Xpisk [facility]in HospitalComment on above:Performed By: #### SHELBI UAX ####[address] , [place] [id number] [facility] Director: Kelli Howell StrandsTRACEAbnoLima Memorial HospitalComment on above:Performed By: #### SHELBI UAX ####[address] [place] [address] Lab Director: Daniel Howell RBC's0 TO 7Waawtg9-5Wedfb Columbus HospitalComment on above:Performed By: #### SHELBI UAX ####[address] [place] [address] Lab Director: Daniel Howell WBC's2 TO 6Zqzkzo6-6Rgdwr Columbus HospitalComment on above: Performed By: #### SHELBI UAX ####[address] , [place] [id number] Lab Director: Thuan Howell, Bloodon 25-85-2466Yadv, BloodSpecimen Description .BLOOD Special Requests RT WRIST 7 ML Culture NO GROWTH 5 DAYS Report Status FINAL 07/16/2024NormalMercy Columbus HospitalComment on above: Performed By: #### BCUL2 #### [address] [place], [place] [id number] Phlebotomy Technician: Thuan Howell,Bloodon [id number],BloodSpecimen Description .BLOOD Special Requests RT HAND 4ML Culture NO GROWTH 5 DAYS Report Status FINAL 07/16/2024NormalCincinnati Children'S Hospital Medical CenterComment on above: Performed By: #### BC ####[address] , [place] [id number] Lab Director: Calixto Howell Metab w/rfx MGon 45-50-6040Kmojs gap [Moles/Vol]10 mmol/LNormal9-16[facility] Comment on above:Performed By: #### LACTIC #### [address] [place], [place] [id number] Phlebotomy Technician: Sharath Dennis MDBUN/CRE Zsyvw89Nnar7-59ZykhqCincinnati Children'S Hospital Medical Center Comment on above:Performed By: #### LACTIC #### [address] [place], [place] [id number] Phlebotomy Technician: MARCO Howellalcium [Mass/Vol]8.5 mg/dLLow8.6-10.4[facility] Medical CenterComment on above:Performed By: #### LACTIC #### [address] [place], [place] [id number] Phlebotomy Technician: MARCO Howellhloride [Moles/Vol]113 mmol/HGoam98-184EztipCincinnati Children'S Hospital Medical CenterComment on above:Performed By: #### LACTIC #### [address] [place], [place] [id number] Phlebotomy Technician: MARCO HowellO2 [Moles/Vol]20 mmol/RQcvzgp32-04XdgfjCincinnati Children'S Hospital Medical CenterComment on above:Performed By: #### LACTIC #### [address] [place] [address] Phlebotomy Technician: MARCO Howellreatinine [Mass/Vol]0.9 mg/dLNormal0.50-0.90[facility] Medical CenterComment on above:Performed By: #### LACTIC #### [address] [place] [address] Phlebotomy Technician: Sharath Dennis MDGFR/1.73 sq M.predicted among non-blacks MDRD (S/P/Bld) [Vol rate/Area]61 mL/min/{1.73_m2}Normal>60[facility] Comment on above:Result Comment: These results are not intended for [...] or following therapy that affects renal tubular secretion.Performed By: #### LACTIC #### [address] [place] [address] Phlebotomy Technician: Sharath Dennis MDGlucose [Mass/Vol]93 mg/uBFmhocf57-72Qwlws [facility] HospitalComment on above:Performed By: #### LACTIC #### [address] [place] [address] Phlebotomy Technician: TAYA Howellotassium [Moles/Vol]4.1 mmol/LNormal3.7-5.3MFayette County Memorial Hospital HospitalComment on above:Performed By: #### LACTIC #### [address] [place] [address] Phlebotomy Technician: Sharath Dennis MDSodium [Moles/Vol]143 mmol/TAldrbz750-220Kfzme [facility]iffin HospitalComment on above:Performed By: #### LACTIC #### [address] [place] [address] Phlebotomy Technician: Sharath Dennis MDUrea nitrogen [Mass/Vol]19 mg/dLNormal8-23[facility] Medical CenterComment on above:Performed By: #### LACTIC #### [facility] [address] [place] [address] Phlebotomy Technician: Sharath Dennis MDBasileodan Metabolic Panel w/ Reflex to MGon 07-14-2024 Anion gap [Moles/Vol]10 mmol/L9 - 16 mmol/LBon [facility] HealthCalcium [Mass/Vol]8.5 mg/dLLow8.6 - 10.4 mg/dLBon [facility] HospitalChloride [Moles/Vol]113 mmol/LHigh98 - 107 mmol/LBon [facility] HospitalCO2 [Moles/Vol] 20 mmol/L20 - 31 mmol/LBon [facility] HospitalCreatinine [Mass/Vol]0.9 mg/dL 0.50 - 0.90 mg/dLBon [facility] HospitalEst, Glom Filt Rate61- PINFBon [facility] HospitalComment on above: These results are not intended [...] therapy that affects renal tubular secretion. Glucose [Mass/Vol]93 mg/dL74 - 99 mg/dLBon [facility] HospitalInterpretation and review of laboratory resultsAbnormalBon [facility] HospitalPotassium [Moles/Vol]4.1 mmol/L3.7 - 5.3 mmol/LBon [facility] HospitalSodium [Moles/Vol] 143 mmol/L136 - 145 mmol/LBon [facility] HospitalUrea nitrogen [Mass/Vol]19 mg/dL8 - 23 mg/dLBon [facility] HospitalUrea nitrogen/Creatinine [Mass ratio]21 mg/mgHigh9 - 20Bon [facility] HospitalBon [facility] HospitalCBC auto differentialon [id number] (Bld) [#/Vol][facility] Basophils/100 WBC (Bld)0 %0 - 2 %Bon [facility] HealthEosinophils (Bld) [#/Vol]0.27 10*3/uLBon [facility] Doctors Hospital HealthEosinophils/100 WBC (Bld)5 %High1 - 4 %[facility] HospitalErythrocyte distribution width (RBC) [Ratio]13.2 %11.8 - 14.4 %Bon SecMercy Health – The Jewish HospitalHematocrit (Bld) [Volume fraction]32.4 %Low36.3 - 47.1 %Bon SecMercy Health – The Jewish HospitalHemoglobin (Bld) [Mass/Vol]10.2 g/dLLow11.9 - 15.1 g/dLBon Secours White HospitalImmature granulocytes (Bld) [#/Vol][facility] HospitalImmature granulocytes/100 WBC (Bld)0 %0Bon [facility] Interpretation and review of laboratory resultsAbnormalBon [facility] Health Lymphocytes/100 WBC (Bld)26 %24 - 43 %[facility] HospitalLymphocytes/100 WBC (Bld)1.51 %[facility] ClinicH (RBC) [Entitic mass]30.3 pg25.2 - 33.5 pgBon SecSamaritan North Health CenterHC (RBC) [Mass/Vol]31.5 g/dL28.4 - 34.8 g/dLBon SecSamaritan North Health CenterV (RBC) [Entitic vol]96.1 fL82.6 - 102.9 fLBon SecMercy Health – The Jewish HospitalMonocytes/100 WBC (Bld)14 %High3 - 12 %[facility] SecMore[facility] General Hospital Health Monocytes/100 WBC (Bld)0.83 %[facility] HospitalNeutrophils/100 WBC (Bld)55 %36 - 65 %Bon SecMercy Health – The Jewish HospitalNucleated RBC/100 WBC (Bld) [Ratio]0 %0.0 per 100 WBCBon SecMorehouse General Hospital HealthPlatelet mean volume (Bld) [Entitic vol]9.7 fL8.1 - 13.5 fLBon SecMorehouse General Hospital HealthPlatelets (Bld) [#/Vol]195 10*3/uLBon [facility] HospitalRBC (Bld) [#/Vol]3.37 10*6/uLLow3.95 - 5.11 m/[facility] HospitalSegmented neutrophils/100 WBC (Bld)3.16 %Bon [facility] HospitalWBC other (Bld) [#/Vol]5.8Bon [facility] Medical CenterCB with Diffon [id number]. Basophil<0.00Aypqpq4.00-0.20MerKettering Health Miamisburg HospitalComment on above:Performed By: #### LACTIC #### [address] [place] [address] Phlebotomy Technician: MDAbs. DanteImm.Granulocyte<0.20Esqnxk6.00-0.30MerKettering Health Miamisburg HospitalComment on above:Performed By: #### LACTIC #### [address] [place] [address] Phlebotomy Technician: MDAbs. DanteNeutrophil (Seg)3.16 k/uLNormal1.50-8.10[facility] HospitalComment on above:Performed By: #### LACTIC #### [address] [place] [address] Phlebotomy Technician: Sharath Dennis MDBasophils/100 WBC (Bld)0 %Normal0-2Mer[facility] HospitalComment on above:Performed By: #### LACTIC #### [address] [place] [address] Phlebotomy Technician: JOSE MARIA Howellosinophils (Bld) [#/Vol]0.27 10*3/uLNormal 0.00-0.44[facility] HospitalComment on above:Performed By: #### LACTIC #### [address] [place] [id number] Phlebotomy Technician: Sharath Sturtz, MDEosinophils/100 WBC (Bld)5 %High1-4[facility] HospitalComment on above:Performed By: #### LACTIC #### [address] [place], [place] [id number] Phlebotomy Technician: Sharath Dennis MDErythrocyte distribution width (RBC) [Ratio]13.2 % Ljihrv17.8-14.4[facility] HospitalComment on above:Performed By: #### LACTIC #### [address] [place], [place] [address] Phlebotomy Technician: Sharath Dennis MDHematocrit (Bld) [Volume fraction]32.4 %Low 36.3-47.1MercAdena Pike Medical Center HospitalComment on above:Performed By: #### LACTIC #### [address] [place], [facility]83 Phlebotomy Technician: Sharath Dennis MDHemoglobin (Bld) [Mass/Vol]10.2 g/dLLow11.9-15.1 [facility] HospitalComment on above:Performed By: #### LACTIC #### [address] [place], [facility]83 Phlebotomy Technician: Sharath Dennis MDImmature granulocytes/100 WBC (Bld)0 %Krnkbv1Ydyap [place]iffin HospitalComment on above:Performed By: #### LACTIC #### [address] [place], [facility]83 Phlebotomy Technician: Sharath Dennis MDLymphocytes (Bld) [#/Vol]1.51 10*3/uLNormal 1.10-3.70[facility] HospitalComment on above:Performed By: #### LACTIC #### [address] [place], [place] [id number] Phlebotomy Technician: Anselmo Howellmphocytes/100 WBC (Bld)26 %Npwbjt68-01WmderCincinnati Children'S Hospital Medical CenterComment on above:Performed By: #### LACTIC #### [address] [place] [address] Phlebotomy Technician: LIANA HowellCH (RBC) [Entitic mass]30.3 joVwgken24.2-33.5 [facility] HospitalComment on above:Performed By: #### LACTIC #### [address] [place], [facility]83 Phlebotomy Technician: LIANA HowellCHC (RBC) [Mass/Vol]31.5 g/gUFgdpfc60.4-34.8[facility] HospitalComment on above:Performed By: #### LACTIC #### [address] [place], [place] [id number] Phlebotomy Technician: LIANA HowellCV (RBC) [Entitic vol]96.1 xYCwknhn64.6-102.9 [facility] HospitalComment on above:Performed By: #### LACTIC #### [address] [place], [place] [id number] Phlebotomy Technician: LIANA Howellonocytes (Bld) [#/Vol]0.83 10*3/uLNormal0.10-1.20 [facility] Medical CenterComment on above:Performed By: #### LACTIC #### [address] [place], [place] [id number] Phlebotomy Technician: LIANA Howellonocytes/100 WBC (Bld)14 %High3-12[facility] HospitalComment on above:Performed By: #### LACTIC #### [address] [place], [place] [id number] Phlebotomy Technician: Sharath Dennis MDNeutrophil (Seg)55 %Jrfhhf49-02Acaoa Tiffin HospitalComment on above:Performed By: #### LACTIC #### [address] [place], [place] [address] Phlebotomy Technician: FRANCISCO JAVIER Howell Automated0.0 per 100 WBCNormal0.0[facility] Medical CenterComment on above:Performed By: #### LACTIC #### [address] [place] [address] Phlebotomy Technician: Gina Howell mean volume (Bld) [Entitic vol]9.7 fL Normal8.1-13.5[facility] Medical CenterComment on above:Performed By: #### LACTIC #### [address] [place], [place] [address] Phlebotomy Technician: Melida Howell (Bld) [#/Vol]195 10*3/fRMlnxde783-336 [facility] Medical CenterComment on above:Performed By: #### LACTIC #### [address] [place], [place] [address] Phlebotomy Technician: SAMMI Howell (Bld) [#/Vol]3.37 10*6/uLLow3.95-5.11[facility] Medical CenterComment on above:Performed By: #### LACTIC #### [address] [place], [place] [address] Phlebotomy Technician: STEFAN Howell (Bld) [#/Vol]5.8 10*3/uLNormal3.5-11.3MSt. Rita's HospitalComment on above:Performed By: #### LACTIC #### [address] [place] [address] Phlebotomy Technician: NORM Howell Rhythm Stripon [id number] HEALTH SYSTEM LABBon Secours White HospitalBasic Metab w/rfx MGon 90-90-9180Ftshs gap [Moles/Vol]11 mmol/LNormal9-16[facility] Medical CenterComment on above:Performed By: #### BCUL2 #### [facility] [address] [place] [address] Dr[place], [place] [id number] Phlebotomy Technician: Sharath Dennis MDBUN/CRE Xmpst56Vwfw7-80TleazCincinnati Children'S Hospital Medical Center Comment on above:Performed By: #### BCUL2 #### [address] [place], [place] [id number] Phlebotomy Technician: MARCO Howellalcium [Mass/Vol]8.6 mg/dLNormal8.6-10.4[facility] Medical CenterComment on above:Performed By: #### BCUL2 #### [address] [place], [place] [id number] Phlebotomy Technician: MARCO Howellhloride [Moles/Vol]110 mmol/WSddm71-862OtlelCincinnati Children'S Hospital Medical CenterComment on above:Performed By: #### BCUL2 #### [address] [place], [place] [id number] Phlebotomy Technician: Sharath Dennis MDCO2 [Moles/Vol]19 mmol/HQdv32-58VsshoCincinnati Children'S Hospital Medical CenterComment on above:Performed By: #### BCUL2 #### [address] [place], [place] [id number] Phlebotomy Technician: MARCO Howellreatinine [Mass/Vol]0.9 mg/dLNormal0.50-0.90[facility] Medical CenterComment on above:Performed By: #### BCUL2 #### [address] [place] [address] Phlebotomy Technician: Sharath Dennis MDGFR/1.73 sq M.predicted among non-blacks MDRD (S/P/Bld) [Vol rate/Area]60 mL/min/{1.73_m2}Low>60MerKettering Health Miamisburg HospitalComment on above:Result Comment: These results are not intended for [...] or following therapy that affects renal tubular secretion.Performed By: #### BCUL2 #### [address] [place], [place] [id number] Phlebotomy Technician: Sharath Dennis MDGlucose [Mass/Vol]87 mg/pVFwesom54-05Btcaa [facility]. Sinai HospitalComment on above:Performed By: #### BCUL2 #### [address] [place], [place] [id number] Phlebotomy Technician: TAYA Howellotassium [Moles/Vol]4.2 mmol/LNormal3.7-5.3MFayette County Memorial Hospital HospitalComment on above:Performed By: #### BCUL2 #### [address] [place] [address] Phlebotomy Technician: KAREN Howellodium [Moles/Vol]140 mmol/GTjzvtw229-720XlnxmCincinnati Children'S Hospital Medical CenterComment on above:Performed By: #### BCUL2 #### [address] [place] [address] Phlebotomy Technician: Sharath Dennis MDUrea nitrogen [Mass/Vol]21 mg/dLNormal8-23[facility] Medical CenterComment on above:Performed By: #### BCUL2 #### [address] [place] [address] Phlebotomy Technician: Sharath Dennis MDSaint Francis [facility] & [facility] Metabolic Panel w/ Reflex to MGon 07-13-2024 Anion gap [Moles/Vol]11 mmol/L9 - 16 mmol/LBon Secours Mercy HealthCalcium [Mass/Vol]8.6 mg/dL8.6 - 10.4 mg/dLBon Secours Mercy HealthChloride [Moles/Vol] 110 mmol/LHigh98 - 107 mmol/LBon Secours [facility] Hospitaly HealthCO2 [Moles/Vol]19 mmol/LLow 20 - 31 mmol/LBon Secours [facility] Hospitaly HealthCreatinine [Mass/Vol]0.9 mg/dL0.50 - 0.90 mg/dLBon Secours Bethes[facility] North Hospitaly HealthEst, Glom Filt Hvlz18Uod- PINFBon SecMercy Health – The Jewish HospitalComment on above: These results are not intended [...] therapy that affects renal tubular secretion. Glucose [Mass/Vol]87 mg/dL74 - 99 mg/dLBon SecSkagit Regional Healthy HealthInterpretation and review of laboratory resultsAbnormalBon Secours [facility] North Hospitaly HealthPotassium [Moles/Vol]4.2 mmol/L3.7 - 5.3 mmol/LBon SecMorehouse General Hospital HealthSodium [Moles/Vol] 140 mmol/L136 - 145 mmol/LBon Secours [facility] HealthUrea nitrogen [Mass/Vol]21 mg/dL8 - 23 mg/dLBon Secours [facility]hes[facility] North Hospitaly HealthUrea nitrogen/Creatinine [Mass ratio]23 mg/mgHigh9 - 20Bon [facility] Hospitaly HealthBon Secours [facility] Hospitaly HealthCBC auto differentialon [id number] (Bld) [#/Vol][facility] Basophils/100 WBC (Bld)0 %0 - 2 %[facility] HealthEosinophils (Bld) [#/Vol]0.22 10*3/uLBon Secours Mercy HealthEosinophils/100 WBC (Bld)3 %1 - 4 % [facility] HealthErythrocyte distribution width (RBC) [Ratio]13.4 %11.8 - 14.4 %[facility] HealthHematocrit (Bld) [Volume fraction]32.5 %Low36.3 - 47.1 %[facility] HealthHemoglobin (Bld) [Mass/Vol]10.4 g/dLLow11.9 - 15.1 g/dLBon [facility] HospitalImmature granulocytes (Bld) [#/Vol]Bon SecMercy Health – The Jewish HospitalImmature granulocytes/100 WBC (Bld)0 %0[facility] Interpretation and review of laboratory resultsAbnormalBon [facility] Lymphocytes/100 WBC (Bld)19 %Low24 - 43 %[facility] HospitalLymphocytes/100 WBC (Bld)1.4 %[facility] ClinicH (RBC) [Entitic mass]31 pg25.2 - 33.5 pgBon [facility] HamiltonHC (RBC) [Mass/Vol]32 g/dL28.4 - 34.8 g/dLBon SecSamaritan North Health CenterV (RBC) [Entitic vol]96.7 fL82.6 - 102.9 fLBon Secours Mary Immaculate HospitalMonocytes/100 WBC (Bld)11 %3 - 12 %[facility] Monocytes/100 WBC (Bld)0.8 %[facility] HospitalNeutrophils/100 WBC (Bld)67 %High36 - 65 %[facility] HospitalNucleated RBC/100 WBC (Bld) [Ratio]0 %0.0 per 100 WBCBon [facility] HospitalPlatelet mean volume (Bld) [Entitic vol]9.4 fL8.1 - 13.5 fLBon [facility] HospitalPlatelets (Bld) [#/Vol]196 10*3/uLBon [facility] HospitalRBC (Bld) [#/Vol]3.36 10*6/uLLow3.95 - 5.11 m/uLBon Secours Mary Immaculate HospitalSegmented neutrophils/100 WBC (Bld)5.07 %[facility] HospitalWBC other (Bld) [#/Vol]7.5Bon SecMarshfield Medical Center - Ladysmith Rusk CountyCBC with Diffon [id number]. Basophil<0.49Rvaaep6.00-0.20[facility] Medical CenterComment on above:Performed By: #### BCUL2 #### [facility] [address] [place] [address] Phlebotomy Technician: MDAbs. DanteImm.Granulocyte<0.54Ameife8.00-0.30[facility] HospitalComment on above:Performed By: #### BCUL2 #### [address] [place] [address] Phlebotomy Technician: Herber Howell.Neutrophil (Seg)5.07 k/uLNormal1.50-8.10[facility] HospitalComment on above:Performed By: #### BCUL2 #### [address] [place] [address] Phlebotomy Technician: Sharath Dennis MDBasophils/100 WBC (Bld)0 %Normal0-2MFayette County Memorial Hospital HospitalComment on above:Performed By: #### BCUL2 #### [address] [place] [address] Phlebotomy Technician: Sharath Dennis MDEosinophils (Bld) [#/Vol]0.22 10*3/uLNormal 0.00-0.44[facility] HospitalComment on above:Performed By: #### BCUL2 #### [address] [place] [address] Phlebotomy Technician: Sharath Dennis MDEosinophils/100 WBC (Bld)3 %Normal1-4[facility] HospitalComment on above:Performed By: #### BCUL2 #### [address] [place] [address] Phlebotomy Technician: Sharath Dennis MDErythrocyte distribution width (RBC) [Ratio]13.4 % Dovxve00.8-14.4[facility] HospitalComment on above:Performed By: #### BCUL2 #### [address] [place] [address] Phlebotomy Technician: Sharath Dennis MDHematocrit (Bld) [Volume fraction]32.5 %Low 36.3-47.1MFayette County Memorial Hospital HospitalComment on above:Performed By: #### BCUL2 #### [address] [place], [place] [id number] Phlebotomy Technician: Sharath Dennis MDHemoglobin (Bld) [Mass/Vol]10.4 g/dLLow11.9-15.1 [facility] HospitalComment on above:Performed By: #### BCUL2 #### [address] [place] [address] Phlebotomy Technician: Robert Howellmature granulocytes/100 WBC (Bld)0 %Yzkvkw6MsxvjCincinnati Children'S Hospital Medical CenterComment on above:Performed By: #### BCUL2 #### [address] [place], [facility]83 Phlebotomy Technician: Sharath Dennis MDLymphocytes (Bld) [#/Vol]1.40 10*3/uLNormal 1.10-3.70[facility] Medical CenterComment on above:Performed By: #### BCUL2 #### [address] [place], [facility]83 Phlebotomy Technician: Anselmo Howellmphocytes/100 WBC (Bld)19 %Shx13-20EpjofCincinnati Children'S Hospital Medical CenterComment on above:Performed By: #### BCUL2 #### [address] [place] [address] Phlebotomy Technician: LIANA HowellCH (RBC) [Entitic mass]31.0 vkHdtatn57.2-33.5 [facility] HospitalComment on above:Performed By: #### BCUL2 #### [address] [place], [place] [id number] Phlebotomy Technician: LIANA HowellCHC (RBC) [Mass/Vol]32.0 g/bVSwvuzw14.4-34.8[facility] Medical CenterComment on above:Performed By: #### BCUL2 #### [address] [place] [address] Phlebotomy Technician: LIANA HowellCV (RBC) [Entitic vol]96.7 nXRxqpqb23.6-102.9 [facility] Medical CenterComment on above:Performed By: #### BCUL2 #### [address] [place], [place] [id number] Phlebotomy Technician: LIANA Howellonocytes (Bld) [#/Vol]0.80 10*3/uLNormal0.10-1.20 [facility] Medical CenterComment on above:Performed By: #### BCUL2 #### [address] [place], [facility]83 Phlebotomy Technician: LIANA Howellonocytes/100 WBC (Bld)11 %Normal3-12[facility] Medical CenterComment on above:Performed By: #### BCUL2 #### [address] [place], [place] [id number] Phlebotomy Technician: Crescencio Howellutrophil (Seg)67 %Yxfe12-11AasnsCincinnati Children'S Hospital Medical Center Comment on above:Performed By: #### BCUL2 #### [address] [place], [place] [id number] Phlebotomy Technician: Sharath Dennis MDNRBC Automated0.0 per 100 WBCNormal0.0[facility] Medical CenterComment on above:Performed By: #### BCUL2 #### [address] [place] [address] Phlebotomy Technician: Sharath Dennis MDPlatelet mean volume (Bld) [Entitic vol]9.4 fL Normal8.1-13.5[facility] HospitalComment on above:Performed By: #### BCUL2 #### [address] [place], [place] [id number] Phlebotomy Technician: Melida Howell ([facility]) [#/Vol]196 10*3/lGCwxxdq214-944 [facility] Medical CenterComment on above:Performed By: #### BCUL2 #### [address] [place], [facility]83 Phlebotomy Technician: SAMMI Howell ([facility]) [#/Vol]3.36 10*6/uLLow3.95-5.11[facility] Medical CenterComment on above:Performed By: #### BCUL2 #### [address] [place], [place] [address] Phlebotomy Technician: STEFAN Howell ([facility]) [#/Vol]7.5 10*3/uLNormal3.5-11.3MSt. Rita's HospitalComment on above:Performed By: #### BCUL2 #### [address] [place] [address] Phlebotomy Technician: Thuan HowellUrineon [id number],UrineSpecimen Description .URINE Culture ESCHERICHIA COLI >100,000 CFU/ML [...] SUSCEPTIBLE Levofloxacin <=0.12 SUSCEPTIBLE Nitrofurantoin <=16 SUSCEPTIBLE Piperacillin/Tazobactam <=4 SUSCEPTIBLE Tobramycin <=1 SUSCEPTIBLE Trimethoprim/Sulfa <=20 SUSCEPTIBLESusceptibleCincinnati Children'S Hospital Medical CenterComment on above:Performed By: #### BCUL2 #### [address] [place] [address] Phlebotomy Technician: Daniel Howell cultureon [id number] and review of laboratory resultsAbnoStoneSprings Hospital CenterMicroorganism identified Cx Nom (Unsp spec)ESCHERICHIA COLI >100,000 CFU/ML Identification by MALDI-TOFAbnoStoneSprings Hospital CenterSpecimen Description.URINEBon [facility] Medical CenterBasic Metab w/rfx MGon 77-45-6112Mbhgf gap [Moles/Vol]9 mmol/LNormal9-16[facility] Medical CenterComment on above:Performed By: #### BCUL2 #### [address] [place], [place] 6[address] Phlebotomy Technician: Sharath Dennis MDBUN/CRE Knnew34Bjhu7-54TwuepCincinnati Children'S Hospital Medical Center Comment on above:Performed By: #### BCUL2 #### [address] [place] [address] Phlebotomy Technician: MARCO Howellalcium [Mass/Vol]8.5 mg/dLLow8.6-10.4[facility] Medical CenterComment on above:Performed By: #### BCUL2 #### [address] [place] [address] Phlebotomy Technician: MARCO Howellhloride [Moles/Vol]112 mmol/VUtxx80-394BbfyoCincinnati Children'S Hospital Medical CenterComment on above:Performed By: #### BCUL2 #### [facility] [address] [place] [address] [place], [place] [id number] Phlebotomy Technician: Sharath Dennis MDCO2 [Moles/Vol]22 mmol/NOkgtie82-28BifrcCincinnati Children'S Hospital Medical CenterComment on above:Performed By: #### BCUL2 #### [address] [place], [place] [id number] Phlebotomy Technician: MARCO Howellreatinine [Mass/Vol]1.2 mg/dLHigh0.50-0.90[facility] Medical CenterComment on above:Performed By: #### BCUL2 #### [address] [place] [address] Phlebotomy Technician: Sharath Dennis MDGFR/1.73 sq M.predicted among non-blacks MDRD (S/P/Bld) [Vol rate/Area]46 mL/min/{1.73_m2}Low>60MerKettering Health Miamisburg HospitalComment on above:Result Comment: These results are not intended for [...] or following therapy that affects renal tubular secretion.Performed By: #### BCUL2 #### [address] [place], [place] [id number] Phlebotomy Technician: Sharath Dennis MDGlucose [Mass/Vol]104 mg/hWYpah03-27Mstzi [facility]. [facility]inai HospitalComment on above:Performed By: #### BCUL2 #### [address] [place], [place] [id number] Phlebotomy Technician: TAYA Howellotassium [Moles/Vol]4.5 mmol/LNormal3.7-5.3MFayette County Memorial Hospital HospitalComment on above:Performed By: #### BCUL2 #### [address] [place], [place] [id number] Phlebotomy Technician: KAREN Howellodium [Moles/Vol]143 mmol/UNzrypb509-411FeeblCincinnati Children'S Hospital Medical CenterComment on above:Performed By: #### BCUL2 #### [address] [place] [address] Phlebotomy Technician: Sharath Dennis MDUrea nitrogen [Mass/Vol]29 mg/dLHigh8-23[facility] Medical CenterComment on above:Performed By: #### BCUL2 #### [facility] [address] [place] [address] Phlebotomy Technician: Sharath Dennis MDSaint Francis Hospital & [facility] Metabolic Panel w/ Reflex to MGon 07-12-2024 Anion gap [Moles/Vol]9 mmol/L9 - 16 mmol/LBon [facility] HospitalCalcium [Mass/Vol]8.5 mg/dLLow8.6 - 10.4 mg/dLBon [facility] HospitalChloride [Moles/Vol]112 mmol/LHigh98 - 107 mmol/LBon [facility] HospitalCO2 [Moles/Vol] 22 mmol/L20 - 31 mmol/LBon [facility] HospitalCreatinine [Mass/Vol]1.2 mg/dL High0.50 - 0.90 mg/dLBon [facility] HospitalEst, Glom Filt Rdrd69Twy- PINFBon [facility] HospitalComment on above: These results are not intended [...] therapy that affects renal tubular secretion. Glucose [Mass/Vol]104 mg/uRDuwb01 - 99 mg/dLBon [facility] Interpretation and review of laboratory resultsAbnormalBon [facility] Potassium [Moles/Vol]4.5 mmol/L3.7 - 5.3 mmol/LBon [facility] HospitalSodium [Moles/Vol]143 mmol/L136 - 145 mmol/LBon [facility] HospitalUrea nitrogen [Mass/Vol]29 mg/dLHigh8 - 23 mg/dLBon [facility] HospitalUrea nitrogen/Creatinine [Mass ratio]24 mg/mgHigh9 - 20Bon [facility] HospitalBon [facility] HospitalCBC auto differentialon [id number] (Bld) [#/Vol]Bon [facility] HospitalBasophils/100 WBC (Bld)0 %0 - 2 %[facility] Eosinophils (Bld) [#/Vol]0.21 10*3/uLBon Seckeo White HospitalEosinophils/100 WBC (Bld)4 %1 - 4 %[facility] HospitalErythrocyte distribution width (RBC) [Ratio]13.4 %11.8 - 14.4 %[facility] HospitalHematocrit (Bld) [Volume fraction]31.1 %Low36.3 - 47.1 %Bon [facility] HospitalHemoglobin (Bld) [Mass/Vol]9.8 g/dLLow11.9 - 15.1 g/dLBon SecMercy Health – The Jewish HospitalImmature granulocytes (Bld) [#/Vol][facility] HospitalImmature granulocytes/100 WBC (Bld)0 %0Bon [facility] HospitalInterpretation and review of laboratory results AbnormalBon [facility] HealthLymphocytes/100 WBC (Bld)24 %24 - 43 %[facility] HospitalLymphocytes/100 WBC (Bld)1.43 %[facility] HospitalMCH (RBC) [Entitic mass]30.3 pg25.2 - 33.5 pgBon [facility] HamiltonHC (RBC) [Mass/Vol]31.5 g/dL28.4 - 34.8 g/dLBon [facility] HospitalMCV (RBC) [Entitic vol]96.3 fL82.6 - 102.9 fLMary [facility] HealthMonocytes/100 WBC (Bld)15 % High3 - 12 %[facility] HealthMonocytes/100 WBC (Bld)0.91 %[facility] HospitalNeutrophils/100 WBC (Bld)57 %36 - 65 %[facility] Nucleated RBC/100 WBC (Bld) [Ratio]0 %0.0 per 100 WBCBon Secours [facility] Platelet mean volume (Bld) [Entitic vol]9.7 fL8.1 - 13.5 fLBon SecMorehouse General Hospital HealthPlatelets (Bld) [#/Vol]188 10*3/uLBon SecMercy Health – The Jewish HospitalRBC (Bld) [#/Vol]3.23 10*6/uLLow3.95 - 5.11 m/uLBon [facility] HospitalSegmented neutrophils/100 WBC (Bld)3.42 %Bon [facility] HospitalWBC other (Bld) [#/Vol]6 [facility] CampusCBC with Diffon [id number]. Basophil<0.52Snppwd5.00-0.20[facility] HospitalComment on above:Performed By: #### BCUL2 #### [address] [place], [place] [id number] Phlebotomy Technician: MDAbs. DanteImm.Granulocyte<0.56Dsywra9.00-0.30[facility] HospitalComment on above:Performed By: #### BCUL2 #### [address] [place], [facility]83 Phlebotomy Technician: Herber Howell.Neutrophil (Seg)3.42 k/uLNormal1.50-8.10[facility] HospitalComment on above:Performed By: #### BCUL2 #### [address] [place] [address] Phlebotomy Technician: Sharath Dennis MDBasophils/100 WBC (Bld)0 %Normal0-2MercAdena Pike Medical Center HospitalComment on above:Performed By: #### BCUL2 #### [address] [place], [place] [address] Phlebotomy Technician: Sharath Dennis MDEosinophils (Bld) [#/Vol]0.21 10*3/uLNormal 0.00-0.44[facility] HospitalComment on above:Performed By: #### BCUL2 #### [address] [place], [place] [id number] Phlebotomy Technician: JOSE MARIA Howellosinophils/100 WBC (Bld)4 %Normal1-4[facility] Medical CenterComment on above:Performed By: #### BCUL2 #### [address] [place] [address] Phlebotomy Technician: Sharath Dennis MDErythrocyte distribution width (RBC) [Ratio]13.4 % Ybzyxh98.8-14.4[facility] HospitalComment on above:Performed By: #### BCUL2 #### [address] [place], [place] [address] Phlebotomy Technician: Sharath Dennis MDHematocrit (Bld) [Volume fraction]31.1 %Low 36.3-47.1MSt. Rita's HospitalComment on above:Performed By: #### BCUL2 #### [address] [place] [address] Phlebotomy Technician: Sharath Dennis MDHemoglobin (Bld) [Mass/Vol]9.8 g/dLLow11.9-15.1 [facility] Medical CenterComment on above:Performed By: #### BCUL2 #### [address] [place] [address] Phlebotomy Technician: Sharath Dennis MDImmature granulocytes/100 WBC (Bld)0 %Xhekwu2Yzmqj Tiffin HospitalComment on above:Performed By: #### BCUL2 #### [address] [place], [place] [address] Phlebotomy Technician: Sharath Dennis MDLymphocytes (Bld) [#/Vol]1.43 10*3/uLNormal 1.10-3.70[facility] Medical CenterComment on above:Performed By: #### BCUL2 #### [address] [place], [place] [address] Phlebotomy Technician: Sharath Dennis MDLymphocytes/100 WBC (Bld)24 %Hpukbi34-53Ftkjb [facility]iffin HospitalComment on above:Performed By: #### BCUL2 #### [address] [place], [place] [id number] Phlebotomy Technician: LIANA HowellCH (RBC) [Entitic mass]30.3 ofHgqzax29.2-33.5 [facility] HospitalComment on above:Performed By: #### BCUL2 #### [address] [place], [place] [id number] Phlebotomy Technician: LIANA HowellCHC (RBC) [Mass/Vol]31.5 g/gWTyabwf61.4-34.8[facility] HospitalComment on above:Performed By: #### BCUL2 #### [address] [place], [place] [id number] Phlebotomy Technician: LIANA HowellCV (RBC) [Entitic vol]96.3 wPItljym30.6-102.9 [facility] HospitalComment on above:Performed By: #### BCUL2 #### [address] [place], [place] [id number] Phlebotomy Technician: LIANA Howellonocytes (Bld) [#/Vol]0.91 10*3/uLNormal0.10-1.20 [facility] HospitalComment on above:Performed By: #### BCUL2 #### [address] [place], [place] [id number] Phlebotomy Technician: LIANA Howellonocytes/100 WBC (Bld)15 %High3-12[facility] HospitalComment on above:Performed By: #### BCUL2 #### [address] [place], [place] [id number] Phlebotomy Technician: Sharath Dennis MDNeutrophil (Seg)57 %Yiodlr09-77Nfldx Tiffin HospitalComment on above:Performed By: #### BCUL2 #### [facility] [address] [place] [address] Phlebotomy Technician: FRANCISCO JAVIER Howell Automated0.0 per 100 WBCNormal0.0[facility] Medical CenterComment on above:Performed By: #### BCUL2 #### [address] [place] [address] Phlebotomy Technician: Gina Howell mean volume (Bld) [Entitic vol]9.7 fL Normal8.1-13.5[facility] HospitalComment on above:Performed By: #### BCUL2 #### [address] [place] [address] Phlebotomy Technician: Melida Howell (Bld) [#/Vol]188 10*3/vPPvnruv053-666 [facility] HospitalComment on above:Performed By: #### LESLEYUL2 #### [address] [place], [place] [id number] Phlebotomy Technician: SAMMI Howell (Bld) [#/Vol]3.23 10*6/uLLow3.95-5.11[facility] HospitalComment on above:Performed By: #### BCUL2 #### [address] [place], [place] [address]1983 Phlebotomy Technician: STEFAN Howell (Bld) [#/Vol]6.0 10*3/uLNormal3.5-11.3MFayette County Memorial Hospital HospitalComment on above:Performed By: #### BCUL2 #### [address] [place] [address] Phlebotomy Technician: NORM Howell 12 [facility] [id number] Ccfj26ELBVnr SecMercy Health – The Jewish HospitalP Eron35ljazicnRwu Secours White HospitalP-R Rfmqwksf778 msBon Secours White HospitalQ-T Vmtnmdmu413 msBon Secours Mercy HealthQRS Fzsbaczb39 ms [facility] Secke[facility]y HealthQTc Calculation (Antonio)409 msBon Seckeo [facility]y HealthR Cviz99agpudhqSif Sec[facility]y HealthT Xmsu71fanoaklRdu [facility]y Health Ventricular Yboo69QFLGkb Seckeo Mercy HealthNormal sinus rhythm Normal ECG When compared with ECG of 26-Mar-2024 14:35, Minimal criteria for Anterior infarct are no longer Present Nonspecific T wave abnormality no longer evident in Lateral leads Confirmed by Stephan Cole ([id number]) on 07/12/2024 6:21:32 PMVibra Long Term Acute Care HospitalStephan MD - 07/12/2024 Normal sinus rhythm Normal ECG When compared with ECG of 26-Mar-2024 14:35, Minimal criteria for Anterior infarct are no longer Present Nonspecific T wave abnormality no longer evident in Lateral leads Confirmed by Stephan Cole ([id number]) on 07/12/2024 6:21:32 PM [facility] HealthCBC with Auto Differentialon [id number] (Bld) [#/Vol][facility] HealthBasophils/100 WBC (Bld) 0 %0 - 2 %[facility] HealthEosinophils (Bld) [#/Vol]0.23 10*3/uLBon Secours Mercy HealthEosinophils/100 WBC (Bld)4 %1 - 4 %[facility] Erythrocyte distribution width (RBC) [Ratio]13.5 %11.8 - 14.4 %[facility] HealthHematocrit (Bld) [Volume fraction]33.7 %Low36.3 - 47.1 %[facility] HealthHemoglobin (Bld) [Mass/Vol]10.8 g/dLLow11.9 - 15.1 g/dLBon Secours Mercy [facility] CenterImmature granulocytes (Bld) [#/Vol][facility] HealthImmature granulocytes/100 WBC (Bld)0 %0[facility]y HealthInterpretation and review of laboratory resultsAbnormalBon Secours Mercy HealthLymphocytes/100 WBC (Bld)25 %24 - 43 %[facility] HospitalLymphocytes/100 WBC (Bld)1.35 %[facility] ClinicH (RBC) [Entitic mass]30.7 pg25.2 - 33.5 pgCarilion ClinicHC (RBC) [Mass/Vol]32 g/dL28.4 - 34.8 g/dLBon [facility]tering Health HamiltonV (RBC) [Entitic vol]95.7 fL82.6 - 102.9 fLBon Secours Mary Immaculate HospitalMonocytes/100 WBC (Bld)16 %High3 - 12 %[facility] HospitalMonocytes/100 WBC (Bld)0.86 % [facility] HospitalNeutrophils/100 WBC (Bld)55 %36 - 65 %[facility] HospitalNucleated RBC/100 WBC (Bld) [Ratio]0 %0.0 per 100 WBCBon Secours Mary Immaculate HospitalPlatelet mean volume (Bld) [Entitic vol]9.6 fL8.1 - 13.5 fLBon [facility]eron Hospital HealthPlatelets (Bld) [#/Vol]216 10*3/uLBon [facility]field HospitalRBC (Bld) [#/Vol]3.52 10*6/uLLow3.95 - 5.11 m/uLBon Secours Mary Immaculate HospitalSegmented neutrophils/100 WBC (Bld)2.97 %[facility] Immaculate HospitalWBC other (Bld) [#/Vol] 5.4Bon [facility] Medical CenterCBC with Diffon 07-11-2024 Abs. Basophil<0.27Ktrxyt6.00-0.20MerDanbury HospitalComment on above:Performed By: #### BCUL2 #### [address] [place] [address] Phlebotomy Technician: Herber Howell.Imm.Granulocyte<0.62Gbbvbe0.00-0.30MerKettering Health Miamisburg HospitalComment on above:Performed By: #### BCUL2 #### [address] [place] [address] Phlebotomy Technician: Herber Howell.Neutrophil (Seg)2.97 k/uLNormal1.50-8.10[facility] Medical CenterComment on above:Performed By: #### BCUL2 #### [address] [place], [place] [address] Phlebotomy Technician: Sharath Dennis MDBasophils/100 WBC (Bld)0 %Normal0-2[facility] HospitalComment on above:Performed By: #### BCUL2 #### [address] [place] [address] Phlebotomy Technician: Sharath Dennis MDEosinophils (Bld) [#/Vol]0.23 10*3/uLNormal 0.00-0.44[facility] Medical CenterComment on above:Performed By: #### BCUL2 #### [address] [place], [place] [address] Phlebotomy Technician: Sharath Dennis MDEosinophils/100 WBC (Bld)4 %Normal1-4[facility] HospitalComment on above:Performed By: #### BCUL2 #### [address] [place], [facility]83 Phlebotomy Technician: Sharath Dennis MDErythrocyte distribution width (RBC) [Ratio]13.5 % Jmqbrr93.8-14.4[facility] Medical CenterComment on above:Performed By: #### BCUL2 #### [address] [place] [address] Phlebotomy Technician: Sharath Dennis MDHematocrit (Bld) [Volume fraction]33.7 %Low 36.3-47.1MercAdena Pike Medical Center HospitalComment on above:Performed By: #### BCUL2 #### [address] [place] [address] Phlebotomy Technician: Sharath Dennis MDHemoglobin (Bld) [Mass/Vol]10.8 g/dLLow11.9-15.1 [facility] Medical CenterComment on above:Performed By: #### BCUL2 #### [address] [place], [place] 245[address]383 Phlebotomy Technician: Sharath Dennis MDImmature granulocytes/100 WBC (Bld)0 %Vbtuik3AchhnCincinnati Children'S Hospital Medical CenterComment on above:Performed By: #### BCUL2 #### [address] [place] [address] Phlebotomy Technician: Sharath Dennis MDLymphocytes (Bld) [#/Vol]1.35 10*3/uLNormal 1.10-3.70[facility] Medical CenterComment on above:Performed By: #### BCUL2 #### [address] [place], [place] [id number] Phlebotomy Technician: Anselmo Howellmphocytes/100 WBC (Bld)25 %Jyqnpv91-02EioetCincinnati Children'S Hospital Medical CenterComment on above:Performed By: #### BCUL2 #### [address] [place], [place] [id number] Phlebotomy Technician: LIANA HowellCH (RBC) [Entitic mass]30.7 orRapcbs52.2-33.5 [facility] Medical CenterComment on above:Performed By: #### BCUL2 #### [address] [place], [place] [id number] Phlebotomy Technician: SUDHEER HowellC (RBC) [Mass/Vol]32.0 g/cDHdoxiu28.4-34.8[facility] Medical CenterComment on above:Performed By: #### BCUL2 #### [address] [place] [address] Phlebotomy Technician: Sharath Sturtz, MDMCV (RBC) [Entitic vol]95.7 gXFlabog24.6-102.9 [facility] HospitalComment on above:Performed By: #### BCUL2 #### [address] [place] [address] Phlebotomy Technician: LIANA Howellonocytes (Bld) [#/Vol]0.86 10*3/uLNormal0.10-1.20 [facility] HospitalComment on above:Performed By: #### BCUL2 #### [address] [place] [address] Phlebotomy Technician: LIANA Howellonocytes/100 WBC (Bld)16 %High3-12[facility] Medical CenterComment on above:Performed By: #### BCUL2 #### [address] [place], [place] [address] Phlebotomy Technician: Anthony Howellophil (Seg)55 %Tvvpyg43-50Anybr Tiffin HospitalComment on above:Performed By: #### BCUL2 #### [address] [place] [address] Phlebotomy Technician: Sharath Dennis MDNRBC Automated0.0 per 100 WBCNormal0.0[facility] Medical CenterComment on above:Performed By: #### BCUL2 #### [address] [place] [address] Phlebotomy Technician: TAYA Howelllatelet mean volume (Bld) [Entitic vol]9.6 fL Normal8.1-13.5[facility] Medical CenterComment on above:Performed By: #### BCUL2 #### [address] [place], [place] 8[address]83 Phlebotomy Technician: TAYA Howelllatelets (Bld) [#/Vol]216 10*3/qKHvozzu547-511 [facility] Medical CenterComment on above:Performed By: #### BCUL2 #### [facility] [address] [place] [address] Phlebotomy Technician: SAMMI Howell ([facility]) [#/Vol]3.52 10*6/uLLow3.95-5.11[facility] Medical CenterComment on above:Performed By: #### BCUL2 #### [facility] [address] [place], [place] [id number] Phlebotomy Technician: STEFAN Howell ([facility]) [#/Vol]5.4 10*3/uLNormal3.5-11.3MSt. Rita's HospitalComment on above:Performed By: #### BCUL2 #### [address] [place], [place] [id number] Phlebotomy Technician: MARCO Howellgill 85-39-3379Scqwrtw [Mass/Vol]4 g/dL3.5 - 5.2 g/dLBon [facility]eron Hospital HealthAlbumin/Globulin [Mass ratio]1.8 {ratio}1.0 - 2.5[facility]y HealthALP [Catalytic activity/Vol]86 U/L35 - 104 U/LBon [facility]ours [facility] HealthALT [Catalytic activity/Vol]15 U/L10 - 35 U/LBon Secours [facility] Hospitaly HealthAnion gap [Moles/Vol]13 mmol/L9 - 16 mmol/LBon [facility]ours [facility] Hospitaly HealthAST [Catalytic activity/Vol]20 U/L10 - 35 U/LBon Secours [facility] Hospitaly HealthBilirubin [Mass/Vol]0.3 mg/dL0.00 - 1.20 mg/dLBon Secours Mercy HealthCalcium [Mass/Vol] 9.3 mg/dL8.6 - 10.4 mg/dLBon Secours Mercy HealthChloride [Moles/Vol]108 mmol/L High98 - 107 mmol/LBon Secours [facility] Hospitaly HealthCO2 [Moles/Vol]22 mmol/L20 - 31 mmol/LBon [facility]ours [facility] Hospitaly HealthCreatinine [Mass/Vol]1.4 mg/dLHigh0.50 - 0.90 mg/dLBon [facility] HospitalEst, Glom Filt Nqna08Egm- PINFBon [facility] HospitalComment on above: These results are not intended [...] therapy that affects renal tubular secretion. Glucose [Mass/Vol]94 mg/dL74 - 99 mg/dLBon [facility] HospitalInterpretation and review of laboratory resultsAbnormalBon [facility] HospitalPotassium [Moles/Vol]4.8 mmol/L3.7 - 5.3 mmol/LBon [facility] HealthProtein [Mass/Vol] 6.3 g/dLLow6.6 - 8.7 g/dLBon [facility] HospitalSodium [Moles/Vol]143 mmol/L136 - 145 mmol/LBon [facility] HospitalUrea nitrogen [Mass/Vol]31 mg/dLHigh8 - 23 mg/dLBon [facility] HospitalUrea nitrogen/Creatinine [Mass ratio]22 mg/mgHigh9 - 20Bon [facility] Medical CenterCT HEAD WO CONTRASTon [id number] HEAD WO CONTRASTEXAMINATION: CT OF THE HEAD WITHOUT CONTRAST 07/11/2024 [...] Signed by: Jason Barker MD 07/11/24 Final resultNormSt. Vincent HospitalCT Head WO contraston [id number] acute intracranial abnormality. [facility] CONSOLIDATEDEXAMINATION: CT OF THE HEAD WITHOUT CONTRAST 07/11/2024 [...] of the visualized skull or soft tissues. [facility] AMRIKStJason rivera MD - 07/11/2024 EXAMINATION: CT OF THE [...] soft tissues. IMPRESSION: No acute intracranial abnormality. [facility] CampusRadiology Study observation (narrative)[facility] Metabolic Profon [id number] [Mass/Vol]4.0 g/dLNormal3.5-5.2[facility] HospitalComment on above:Performed By: #### TSH #### [facility] [address] [place] [address] [place] [address] Phlebotomy Technician: Sharath Dennis MDAlbumin/Glob Ratio1.5Zmlfpm3.0-2.5MerKettering Health Miamisburg HospitalComment on above:Performed By: #### TSH #### [address] [place] [address] Phlebotomy Technician: Lenka Howell Phos86 U/PSavhcj66-744Vgcxd Tiffin HospitalComment on above:Performed By: #### TSH #### [address] [place] [address] Phlebotomy Technician: Sharath Dennis MDALT [Catalytic activity/Vol]15 U/XPtefgk76-82Qnqia Tiffin HospitalComment on above:Performed By: #### TSH #### [address] [place] [address] Phlebotomy Technician: Sharath Dennis MDAnion gap [Moles/Vol]13 mmol/LNormal9-16[facility] HospitalComment on above:Performed By: #### TSH #### [facility] [address] [place] [address] [place] [address] Phlebotomy Technician: Sharath Dennis MDAST [Catalytic activity/Vol]20 U/OGqaimr89-41Ktxbw [facility]in HospitalComment on above:Performed By: #### TSH #### [facility] [address] [place] [address] [place] [address] Phlebotomy Technician: Sharath Dennis MDBilirubin [Mass/Vol]0.3 mg/dLNormal0.00-1.20[facility] Medical CenterComment on above:Performed By: #### TSH #### [facility] [address] [place] [address] [place] [address] Phlebotomy Technician: Sharath Dennis MDBUN/CRE Dmujx37Caix7-37AeodkCincinnati Children'S Hospital Medical Center Comment on above:Performed By: #### TSH #### [facility] [address] [place] [address] [place] [address] Phlebotomy Technician: MARCO Howellalcium [Mass/Vol]9.3 mg/dLNormal8.6-10.4[facility] Medical CenterComment on above:Performed By: #### TSH #### [address] [place], [facility]83 Phlebotomy Technician: MARCO Howellhloride [Moles/Vol]108 mmol/WGowu76-618Mtmml [facility]in HospitalComment on above:Performed By: #### TSH #### [address] [place] [address] Phlebotomy Technician: MARCO HowellO2 [Moles/Vol]22 mmol/NUxfobe12-48Rfhfk [facility]iffin HospitalComment on above:Performed By: #### TSH #### [address] [place] [address] Phlebotomy Technician: MARCO Howellreatinine [Mass/Vol]1.4 mg/dLHigh0.50-0.90[facility] HospitalComment on above:Performed By: #### TSH #### [address] [place], [place] [address] Phlebotomy Technician: Sharath Dennis MDGFR/1.73 sq M.predicted among non-blacks MDRD (S/P/Bld) [Vol rate/Area]38 mL/min/{1.73_m2}Low>60MerKettering Health Miamisburg HospitalComment on above:Result Comment: These results are not intended for [...] or following therapy that affects renal tubular secretion.Performed By: #### TSH #### [address] [place], [place] 313[address]83 Phlebotomy Technician: Sharath Dennis MDGlucose [Mass/Vol]94 mg/sIWbzhli16-89Tlsyu [facility]in HospitalComment on above:Performed By: #### TSH #### [address] [place] [address] Phlebotomy Technician: TAYA Howellotassium [Moles/Vol]4.8 mmol/LNormal3.7-5.3MFayette County Memorial Hospital HospitalComment on above:Performed By: #### TSH #### [address] [place] [address] Phlebotomy Technician: Sharath Dennis MDProtein [Mass/Vol]6.3 g/dLLow6.6-8.7[facility] HospitalComment on above:Performed By: #### TSH #### [address] [place] [address] Phlebotomy Technician: Sharath Dennis MDSodium [Moles/Vol]143 mmol/QQpqzwh184-560Xeyzc [facility]in HospitalComment on above:Performed By: #### TSH #### [address] [place] [address] Phlebotomy Technician: Sharath Dennis MDUrea nitrogen [Mass/Vol]31 mg/dLHigh8-23[facility] HospitalComment on above:Performed By: #### TSH #### [address] [place], [facility]83 Phlebotomy Technician: Sharath Dennis MDLactic Acidon 67-71-6826Wnoaufl (BldV) [Moles/Vol] 0.8 mmol/L0.5 - 2.2 mmol/LBon [facility] Lactate [Moles/Vol]0.8 mmol/LNormal0.5-2.2MSt. Rita's HospitalComment on above: Performed By: #### LACTIC #### [facility] [address] [place] [address] Phlebotomy Technician: LIANA Howellicroscopic Urinalysison 82-79-6586Cclhfvaj LM Ql (Urine sed)4+AbnormalNoneBon [facility] HospitalEpithelial cells LM.HPF (Urine sed) [#/Area]0 TO 2Bon [facility] HospitalInterpretation and review of laboratory resultsAbnoStoneSprings Hospital CenterRBC LM.HPF (Urine sed) [#/Area]0 TO 2Bon [facility] HospitalWBC LM.HPF (Urine sed) [#/Area]50 TO 100 [facility] CampusTSHon [id number] Qn3.13 m[IU]/LBon [facility] Medical CenterThyroid Stim. Horm.on 82-43-4556Cuhpsbh Stim. Horm.3.13 uIU/mLNormal0.27-4.20[facility] Comment on above:Performed By: #### TSH #### [facility] [address] [place], [place] 50[address]83 Phlebotomy Technician: Gauri Howell 01-22-5585Kxairklhjucinf and review of laboratory resultsAbnoStoneSprings Hospital CenterTroponin I.cardiac High sensitivity method [Mass/Vol]25 ng/LHigh0 - 14 ng/LBon [facility] Comment on above:Specimen hemolysis has exceeded the interference as defined by Galindo. Value may be falsely decreased. Suggest recollection if clinically indicated. High Sensitivity Troponin values cannot be compared with other Troponin methodologies. [facility] HealthTroponin, High Sens25 ng/LHigh0-14[facility] Comment on above:Result Comment: Specimen hemolysis has exceeded the interference as defined by Galindo. Value may be falsely decreased. Suggest recollection if clinically indicated. High Sensitivity Troponin values cannot be compared with other Troponin methodologies.Performed By: #### BCUL2 #### [facility] [address] [place] [address] Phlebotomy Technician: Sharath Dennis MDInterpretation and review of laboratory results AbnormalBon [facility] HospitalTroponin I.cardiac High sensitivity method [Mass/Vol]29 ng/LHigh0 - 14 ng/LBon [facility] HospitalComment on above:High Sensitivity Troponin values cannot be compared with other Troponin methodologies.Bon SecMercy Health – The Jewish HospitalTroponin, High Sens29 ng/LHigh0-14[facility] Medical CenterComment on above:Result Comment: High Sensitivity Troponin values cannot be compared with other Troponin methodologies.Performed By: #### BCUL2 #### [facility] [address] [place] [address] Phlebotomy Technician: Sharath Dennis MDHillside Hospital 45-84-1942Fsmhufizc Ql (U)Negative NEGATIVEBon [facility]ours Mercy HealthClarity (U)ClearClearBon [facility] Hospitaly Health Color (U)YellowYellowBon Secours [facility] Hospitaly HealthGlucose Test strip (U) [Mass/Vol] NegativeNEGATIVE mg/dLBon Secours [facility] Hospitaly HealthHemoglobin Auto test strip Ql (U) NegativeNEGATIVEBon Secours [facility] Hospitaly HealthInterpretation and review of laboratory resultsAbnormalBon Secours Mercy HealthKetones (U) [Mass/Vol]NegativeNEGATIVE mg/dLBon Secours [facility] Hospitaly HealthLeukocyte esterase Test strip Ql (U)SMALLAbnormal NEGATIVEBon Secours Mercy HealthNitrite Ql (U)PositiveAbnormalNEGATIVEBon Secours Mercy HealthpH (U)6 [pH]5.0 - 9.0[facility] HealthProtein (U) [Mass/Vol]NegativeNEGATIVE mg/dLBon Secours Mercy HealthSpecific gravity (U) [Rel density]1.812Sloa3.010 - 1.020Bon [facility] HealthUrobilinogen Qn (U) Normal0.0 - 1.0 EU/dLBon [facility] HospitalBon [facility] HospitalUrinalysis, Routineon 03-27-5173Gxccjaelx, SemiQt,UrNegativeMetroHealth [facility] Center Comment on above:Performed By: #### BCUL2 #### [facility] [address] [place] [address] Dr. [place], [place] [id number] Phlebotomy Technician: Lowell Howell, UrineNegativeMetroHealth Cleveland Heights Medical Center Comment on above:Performed By: #### BCUL2 #### [address] [place], [place] [address]283 Phlebotomy Technician: MARCO Howelllarity ()ClearNormalCLEARCincinnati Children'S Hospital Medical Center Comment on above:Performed By: #### BCUL2 #### [facility] [address] [place] [place] [address] Dr. [place], [place] [id number] Phlebotomy Technician: MARCO Howellolor (U)YellowNormalYWhite Hospital Comment on above:Performed By: #### BCUL2 #### [facility] [address] [place] [address] Dr. [place], [place] [id number] Phlebotomy Technician: Sharath Dennis MDGlucose Ql (U)NegativeNormalNEGCincinnati Children'S Hospital Medical CenterComment on above:Performed By: #### BCUL2 #### [facility] [address] [place] [address] Dr. [place], [place] [id number] Phlebotomy Technician: Sharath Dennis MDKetones Ql (U)NegativeNormalNEGCincinnati Children'S Hospital Medical CenterComment on above:Performed By: #### BCUL2 #### [facility] [address] [place] [address] [place] [address] Phlebotomy Technician: Sharath Dennis MDLeukocyte esterase Test strip Ql (U)SMALLAbnormal NEGCincinnati Children'S Hospital Medical CenterComment on above:Performed By: #### BCUL2 #### [facility] [address] [place] [address] Dr. [place], [place] [id number] Phlebotomy Technician: Sharath Dennis MDNitrite,UrPositiveAbnormalNEGCincinnati Children'S Hospital Medical Center Comment on above:Performed By: #### BCUL2 #### [facility] [address] [place] [address] Dr. [place], [place] [id number] Phlebotomy Technician: TAYA HowellH,Ur6.1Zbferi0.0-9.0[facility]. [facility] HospitalComment on above:Performed By: #### BCUL2 #### [facility] [address] [place] [address] [place] [address] Phlebotomy Technician: TAYA Howellrotein Ql (U)NegativeNormalNEGCincinnati Children'S Hospital Medical CenterComment on above:Performed By: #### BCUL2 #### [facility] [address] [place] [address] Dr. [place], [place] [id number] Phlebotomy Technician: KAREN Howellpec. Forestdale,Ur1.595Qscv2.010-1.020[facility] HospitalComment on above:Performed By: #### BCUL2 #### [facility] [address] [place] [address] [place] [address] Phlebotomy Technician: Sharath Dennis MDUrobilinogen,UrNormalNormal0.0-1.0[facility] Medical CenterComment on above:Performed By: #### BCUL2 #### [facility] [address] [place] [address] [place] [address] Phlebotomy Technician: Sharath Dennis MDUrinalysis,Microon 60-51-7513Pqrxargc8+Abnormal NONEKettering Health Springfield HospitalComment on above:Performed By: #### BCUL2 #### [address] [place], [place] [id number] Phlebotomy Technician: Sharath Dennis MDEpithelial cells LM Ql (Urine sed)0 TO 8Wvsptw5-79 [facility] Medical CenterComment on above:Performed By: #### BCUL2 #### [facility] [address] [place] [address] Phlebotomy Technician: Daniel Howell RBC's0 TO 9Hpcnfk8-7SlmxjSt. Rita's Hospital Comment on above:Performed By: #### BCUL2 #### [facility] [address] [place] [address] Phlebotomy Technician: Daniel Howell WBC's50 TO 815Yiwddn7-1IwizxCincinnati Children'S Hospital Medical Center Comment on above:Performed By: #### BCUL2 #### [facility] [address] [place], [place] [id number] Phlebotomy Technician: Sharath Dennis MDXR CHEST (2 VW)on [id number] CHEST (2 VW) EXAMINATION: TWO XRAY VIEWS [...] Signed by: Jason Barker MD 07/11/24 Final resultNormalCincinnati Children'S Hospital Medical CenterXR Chest 2 Viewson [id number] acute cardiopulmonary process. [facility] CONSOLIDATEDEXAMINATION: TWO XRAY VIEWS OF THE CHEST 07/11/2024 10:51 pm COMPARISON: Chest radiograph 03/26/2024 HISTORY: ORDERING SYSTEM PROVIDED HISTORY: Confusion/AMS TECHNOLOGIST PROVIDED HISTORY: (Select if patient is in hallway or waiting room) Confusion/AMS FINDINGS: Lungs: Clear Pleura: No effusion or pneumothorax. Cardiomediastinal silhouette: Normal contours Bones: No acute osseous findings. Soft tissues: Normal. [facility] Jason Kaplan MD - 07/11/2024 EXAMINATION: TWO XRAY VIEWS OF THE CHEST 07/11/2024 10:51 pm COMPARISON: Chest radiograph 03/26/2024 HISTORY: ORDERING SYSTEM PROVIDED HISTORY: Confusion/AMS TECHNOLOGIST PROVIDED HISTORY: (Select if patient is in hallway or waiting room) Confusion/AMS FINDINGS: Lungs: Clear Pleura: No effusion or pneumothorax. Cardiomediastinal silhouette: Normal contours Bones: No acute osseous findings. Soft tissues: Normal. IMPRESSION: No acute cardiopulmonary process. [facility] HospitalRadiology Study observation (narrative)[facility]villeOmnikles [facility] Chest 2 ViewsOrdered By: Jason Barker on 59-42-5130TotCentra [facility] Work Phone: BUN & Creatinineon 27-35-1407Depnwyzcdc [Mass/Vol]1.2 mg/dLHigh0.50 - 0.90 mg/dLBon [facility] HospitalEst, Glophil Filt Qwib04Yrd- PINF [facility] HospitalComment on above: These results are not intended [...] that affects renal tubular secretion. Urea nitrogen [Mass/Vol]29 mg/dLHigh8 - 23 mg/dLBon [facility] HospitalBUN + Creatinineon 79-73-5857Bnkdxdrdvf [Mass/Vol]1.2 mg/dLHigh0.50-0.90[facility] Medical CenterComment on above:Performed By: #### TSH #### [facility] [address] [place] [address] [place] [address] Phlebotomy Technician: Sharath Dennis MDGFR/1.73 sq M.predicted among non-blacks MDRD (S/P/Bld) [Vol rate/Area]44 mL/min/{1.73_m2}Low>60Mer[facility]. Sinai HospitalComment on above:Result Comment: These results are not intended for [...] or following therapy that affects renal tubular secretion.Performed By: #### TSH #### [facility] [address] [place] [address] Phlebotomy Technician: Sharath Dennis MDUrea nitrogen [Mass/Vol]29 mg/dLHigh8-23[facility] Medical CenterComment on above:Performed By: #### TSH #### [facility] [address] [place] [address] Phlebotomy Technician: Sharath Dennis MDBrain Natri. Peptideon 05-44-2356Yacwinpakej peptide B (Bld) [Mass/Vol]652 pg/mLHigh0-450[facility] Medical CenterComment on above:Performed By: #### TSH #### [facility] [address] [place], [place] [id number] Phlebotomy Technician: Sharath Dennis MDBrain Natriuretic Peptideon 05-37-2059Vwtgjclxqlm peptide B (Bld) [Mass/Vol]652 pg/mLHigh0 - 450 pg/mLCarilion Clinic on 22-95-9826Fqybyroxgia distribution width (RBC) [Ratio]14.2 %11.8 - 14.4 %[facility] HospitalHematocrit (Bld) [Volume fraction]35 %Low36.3 - 47.1 %[facility] HospitalHemoglobin (Bld) [Mass/Vol]11 g/dLLow11.9 - 15.1 g/dLBon [facility] HospitalInterpretation and review of laboratory resultsAbnormalCarilion ClinicH (RBC) [Entitic mass]30 pg25.2 - 33.5 pgCarilion ClinicHC (RBC) [Mass/Vol]31.4 g/dL28.4 - 34.8 g/dLBon [facility] HamiltonV (RBC) [Entitic vol]95.4 fL82.6 - 102.9 fLBon Secours Mary Immaculate HospitalNucleated RBC/100 WBC (Bld) [Ratio]0 %0.0 per 100 WBCBon [facility] HospitalPlatelet mean volume (Bld) [Entitic vol]9.6 fL8.1 - 13.5 fLBon [facility]ours Mary Immaculate HospitalPlatelets (Bld) [#/Vol]227 10*3/uLBon [facility] HospitalRBC (Bld) [#/Vol]3.67 10*6/uLLow 3.95 - 5.11 m/uLBon [facility] HospitalWBC other (Bld) [#/Vol]6.3Bon [facility] Medical CenterErythrocyte distribution width (RBC) [Ratio] 14.2 %Pcztym27.8-14.4[facility] Medical CenterComment on above:Performed By: #### TSH #### [address] [place] [id number] Phlebotomy Technician: Sharath Dennis MDHematocrit (Bld) [Volume fraction]35.0 %Low 36.3-47.1MSt. Rita's HospitalComment on above:Performed By: #### TSH #### [address] [place] [address] Phlebotomy Technician: Sharath Dennis MDHemoglobin (Bld) [Mass/Vol]11.0 g/dLLow11.9-15.1 [facility] Medical CenterComment on above:Performed By: #### TSH #### [address] [place] [address] Phlebotomy Technician: LIANA HowellCH (RBC) [Entitic mass]30.0 azUtshru03.2-33.5 [facility] Medical CenterComment on above:Performed By: #### TSH #### [address] [place] [address] Phlebotomy Technician: SUDHEER HowellC (RBC) [Mass/Vol]31.4 g/iWDujuus38.4-34.8[facility] Medical CenterComment on above:Performed By: #### TSH #### [address] [place] [address] Phlebotomy Technician: SHALOM Howell (RBC) [Entitic vol]95.4 sXApjifn21.6-102.9 [facility] HospitalComment on above:Performed By: #### TSH #### [address] [place] [address] Phlebotomy Technician: FRANCISCO JAVIER Howell Automated0.0 per 100 WBCNormal0.0[facility] HospitalComment on above:Performed By: #### TSH #### [address] [place] [address] Phlebotomy Technician: Gina Howell mean volume (Bld) [Entitic vol]9.6 fL Normal8.1-13.5[facility] Medical CenterComment on above:Performed By: #### TSH #### [address] [place] [address] Phlebotomy Technician: Melida Howell (Bld) [#/Vol]227 10*3/uNNvppqo476-738 [facility] Medical CenterComment on above:Performed By: #### TSH #### [address] [place] [address] Phlebotomy Technician: SAMMI Howell (Bld) [#/Vol]3.67 10*6/uLLow3.95-5.11[facility] HospitalComment on above:Performed By: #### TSH #### [address] [place] [address] Phlebotomy Technician: STEFAN Howell (Bld) [#/Vol]6.3 10*3/uLNormal3.5-11.3MFayette County Memorial Hospital HospitalComment on above:Performed By: #### TSH #### [facility] [address] [place] [address] [place] [address] Phlebotomy Technician: MARIO ALBERTO Howell-Dimer Teston 03-18-0629E-Dimer Test0.72 ug/mL FEUHigh0.00-0.59[facility] on above:Result Comment: When combined with a low clinical [...] be more prevalent in patients with distal DVT.Performed By: #### TSH #### [facility] [address] [place] [address] [place] [address] Phlebotomy Technician: MARIO ALBERTO Howell-Dimer, Quantitativeon 56-84-2885Rkqvnd D-dimer FEU (PPP) [Mass/Vol]0.72[facility] HospitalComkalkaska memorial health center on above: When combined with a low [...] distal DVT. Interpretation and review of laboratory resultsAbnormalBon [facility] Bon [facility] HospitalElectrolyte Panelon 86-79-1056Nlyyl gap [Moles/Vol]11 mmol/L9 - 16 mmol/LBon [facility] HospitalChloride [Moles/Vol]106 mmol/L98 - 107 mmol/LBon [facility] HospitalCO2 [Moles/Vol]23 mmol/L20 - 31 mmol/LBon [facility] HospitalPotassium [Moles/Vol]4.6 mmol/L3.7 - 5.3 mmol/LBon [facility] HospitalSodium [Moles/Vol]140 mmol/L136 - 145 mmol/LBon [facility] Electrolyteson 39-26-8699Ulyax gap [Moles/Vol]11 mmol/LNormal9-16[facility] Medical CenterComment on above:Performed By: #### TSH #### [facility] [address] [place] [address] [place] [address] Phlebotomy Technician: MARCO Howellhloride [Moles/Vol]106 mmol/LBsaumk27-797IiteeCincinnati Children'S Hospital Medical CenterComment on above:Performed By: #### TSH #### [facility] [address] [place] [address] [place] [address] Phlebotomy Technician: MARCO HowellO2 [Moles/Vol]23 mmol/PRmjqhf27-97FbhygCincinnati Children'S Hospital Medical CenterComment on above:Performed By: #### TSH #### [address] [place], [place] [id number] Phlebotomy Technician: TAYA Howellotassium [Moles/Vol]4.6 mmol/LNormal3.7-5.3MSt. Rita's HospitalComment on above:Performed By: #### TSH #### [address] [place], [place] [id number] Phlebotomy Technician: KAREN Howellodium [Moles/Vol]140 mmol/ISbrrws691-970NvtwiCincinnati Children'S Hospital Medical CenterComment on above:Performed By: #### TSH #### [address] [place], [place] [id number] Phlebotomy Technician: Sharath Dennis MDHemoglobin A1Con 28-65-9377Vhwijiw glucose Estimated from glycated hemoglobin (Bld) [Mass/Vol]114 mg/dLBon [facility] HospitalComkalkaska memorial health center on above:The ADA and AACC recommend providing the estimated average glucose result to permit better patient understanding of their HBA1c result. HbA1c (Bld) [Mass fraction]5.6 %4.0 - 6.0 %[facility]—Henrico CampusGlucose [Mass/Vol]114 mg/dLNormalChildren's Hospital of [facility] on above:Result Comment: The ADA and AACC recommend providing the estimated average glucose result to permit better patient understanding of their HBA1c result.Performed By: #### LACTIC #### [address] [place], [place] [id number] Phlebotomy Technician: Sharath Dennis MDHbA1c (Bld) [Mass fraction]5.6 %Normal4.0-6.0[facility] on above:Performed By: #### LACTIC #### [address] [place], [place] [id number] Phlebotomy Technician: Sharath Dennis MDHepatic Function Panelon 57-45-4719Btukqgh [Mass/Vol]4.1 g/dL3.5 - 5.2 g/dLBon [facility] HospitalAlbumin/Globulin [Mass ratio]1.9 {ratio}1.0 - 2.5Bon [facility] HospitalALP [Catalytic activity/Vol]86 U/L35 - 104 U/LBon [facility] HospitalALT [Catalytic activity/Vol]16 U/L10 - 35 U/LBon [facility] HealthAST [Catalytic activity/Vol]23 U/L10 - 35 U/LBon [facility] HealthBilirubin [Mass/Vol]0.4 mg/dL0.00 - 1.20 mg/dLBon [facility] HospitalBilirubin.direct [Mass/Vol]0.2 mg/dL0.00 - 0.30 mg/dLBon [facility] HospitalBilirubin.indirect [Mass/Vol]0.2 mg/dL0.0 - 1.0 mg/dLBon [facility] HospitalProtein [Mass/Vol]6.3 g/dLLow6.6 - 8.7 g/dLBon [facility] Lipid Profileon 96-68-6811Vvqswabpmmf [Mass/Vol]122 mg/dLNormal0-199[facility] on above: Cholesterol Guidelines: <200 Desirable 200-240 Borderline >240 Undesirable Result Comment: Cholesterol Guidelines: <200 Desirable 200-240 Borderline >240 UndesirablePerformed By: #### TSH #### [address] [place] [address] Phlebotomy Technician: MARCO Howellholesterol in HDL [Mass/Vol]80 mg/dLNormal>40[facility] on above: HDL Guidelines: <40 Undesirable 40-59 Borderline >59 Desirable Result Comment: HDL Guidelines: <40 Undesirable 40-59 Borderline >59 DesirablePerformed By: #### TSH #### [address] [place] [address] Phlebotomy Technician: MARCO Howellholesterol in LDL [Mass/Vol]34 mg/dLNormal0-100 [facility] on above: LDL Guidelines: <100 Desirable 100-129 Near to/above Desirable 130-159 Borderline >159 Undesirable Direct (measured) LDL and calculated LDL are not interchangeable tests. Result Comment: LDL Guidelines: <100 Desirable 100-129 Near to/above Desirable 130-159 Borderline >159 Undesirable Direct (measured) LDL and calculated LDL are not interchangeable tests.Performed By: #### TSH #### [address] [place], [place] [id number] Phlebotomy Technician: MARCO Howellholesterol in VLDL [Mass/Vol]8 mg/dLNormal1-30Bon [facility] on above:Performed By: #### TSH #### [address] [place] [address] Phlebotomy Technician: Ezequiel Howell.total/Cholesterol in HDL [Mass ratio] 1.5 {ratio}NormalBon [facility] on above:Performed By: #### TSH #### [address] [place] [address] Phlebotomy Technician: Sharath Dennis MDTriglyceride [Mass/Vol]41 mg/dLNormal<150Bon [facility] on above: Triglyceride Guidelines: <150 Desirable 150-199 Borderline 200-499 High >499 Very high Based on AHA Guidelines for fasting triglyceride, November 2011. Result Comment: Triglyceride Guidelines: <150 Desirable 150-199 Borderline 200-499 High >499 Very high Based on AHA Guidelines for fasting triglyceride, November 2011.Performed By: #### TSH #### [address] [place], [place] [id number] Phlebotomy Technician: Sharath Dennis MDLiver Profileon 68-96-2477Dodzpfs [Mass/Vol]4.1 g/dLNormal3.5-5.2[facility] on above:Performed By: #### TSH #### [address] [place], [place] [id number] Phlebotomy Technician: Sharath Dennis MDAlbumin/Glob Ratio1.4Ezmgml7.0-2.5[facility] HospitalComment on above:Performed By: #### TSH #### [address] [place], [place] [id number] Phlebotomy Technician: Lenka Howell Phos86 U/UDxmrwm94-392Rsxiw [facility] HospitalComment on above:Performed By: #### TSH #### [address] [place] [address] Phlebotomy Technician: Sharath Dennis MDALT [Catalytic activity/Vol]16 U/SJinryg02-58Obaap [facility] HospitalComment on above:Performed By: #### TSH #### [address] [place] [address] Phlebotomy Technician: Sharath Dennis MDAST [Catalytic activity/Vol]23 U/MMcslub73-05Cxydi Tiffin HospitalComment on above:Performed By: #### TSH #### [address] [place] [address] Phlebotomy Technician: Sharath Dennis MDBilirubin [Mass/Vol]0.4 mg/dLNormal0.00-1.20[facility] HospitalComment on above:Performed By: #### TSH #### [address] [place], [place] [id number] Phlebotomy Technician: Dominick Howellirubin, Indirect0.2 mg/dLNormal0.0-1.0[facility] HospitalComment on above:Performed By: #### TSH #### [address] [place], [place] [id number] Phlebotomy Technician: Kierra Howell.indirect [Mass/Vol]0.2 mg/dLNormal 0.00-0.30[facility] HospitalComment on above:Performed By: #### TSH #### [address] [place], [place] [id number] Phlebotomy Technician: TAYA Howellrotein [Mass/Vol]6.3 g/dLLow6.6-8.7[facility] Medical CenterComment on above:Performed By: #### TSH #### [address] [place] [address] Phlebotomy Technician: Sharath Dennis MDNo Panel Informationon 26-26-8003Mlg [facility] HospitalInterpretation and review of laboratory resultsAbnormalBon [facility] Medical CenterTSHon 90-80-6364ZYA Qn2.56 m[IU]/LBon [facility] HospitalThyroid Stim. Horm.on 22-11-0431Cqbuufs Stim. Horm.2.56 uIU/mLNormal 0.27-4.20[facility] Medical CenterComment on above:Performed By: #### TSH #### [address] [place] [address] Phlebotomy Technician: Sharath Dennis MDVitamin D 25 Hydroxyon [id number]-eipqwgvsmhtzyb D3 [Mass/Vol]59.1 ng/mL30.0 - 100.0 ng/mLBon [facility]ours [facility] Immaculate HospitalComment on above: Reference Range: Vitamin D status Range Deficiency <20 ng/mL Mild Deficiency 20-30 ng/mL Sufficiency 30-100 ng/mL Toxicity >100 ng/mL Vitamin D 25 OHon 69-56-5827Cneboit D 25 OH59.1 ng/rEDnauqu52.0-100.0[facility] Medical CenterComkalkaska memorial health center on above:Result Comment: Reference Range: Vitamin D status Range Deficiency <20 ng/mL Mild Deficiency 20-30 ng/mL Sufficiency 30-100 ng/mL Toxicity >100 ng/mLPerformed By: #### TSH #### [address] [place] [address] Phlebotomy Technician: MARCO Howellult,Urineon 20-21-2295Tmxh,UrineSpecimen Description .URINE Culture ESCHERICHIA COLI >100,000 CFU/ML Report Status FINAL 03/30/2024 SUSCEPTIBILITY Organism ESCHERICHIA COLI Method SHAILESH Ampicillin 8 SUSCEPTIBLE Cefazolin <=4 SUSCEPTIBLE Cefazolin sensitivity results can be used to predict the effectiveness of oral cephalosporins (eg. Cephalexin) in uncomplicated Urinary Tract Infections due to E. coli, K. pneumoniae, and P. mirabilis Ceftriaxone <=0.25 SUSCEPTIBLE ESBL NEGATIVE Gentamicin <=1 SUSCEPTIBLE Levofloxacin <=0.12 SUSCEPTIBLE Piperacillin/Tazobactam <=4 SUSCEPTIBLE Tobramycin <=1 SUSCEPTIBLE Trimethoprim/Sulfa <=[address] Rita'S Medical Centercy Mt. Sinai HospitalComment on above:Performed By: #### URC ####[facility] [address] [place] [address] lab Director: Wellington Back [facility] with Auto Differentialon 49-07-3168Yxptqsfpn (Bld) [#/Vol]Bon [facility] HospitalBasophils/100 WBC (Bld) 0 %0 - 2 %[facility] HospitalEosinophils (Bld) [#/Vol]0.13 10*3/uLBon [facility] HospitalEosinophils/100 WBC (Bld)1 %1 - 4 %[facility] Erythrocyte distribution width (RBC) [Ratio]14.7 %High11.8 - 14.4 %[facility] HospitalHematocrit (Bld) [Volume fraction]38.2 %36.3 - 47.1 %[facility] HospitalHemoglobin (Bld) [Mass/Vol]12.3 g/dL11.9 - 15.1 g/dLBon [facility] HospitalImmature granulocytes (Bld) [#/Vol]0.06 10*3/uLBon [facility] Centermadayton osteopathic hospital granulocytes/100 WBC (Bld)1 %Mbys3Qou [facility] Interpretation and review of laboratory resultsAbnormalBon [facility] Lymphocytes/100 WBC (Bld)16 %Low24 - 43 %[facility] HospitalLymphocytes/100 WBC (Bld)1.61 %[facility] ClinicH (RBC) [Entitic mass]30.3 pg25.2 - 33.5 pgBon [facility] HamiltonHC (RBC) [Mass/Vol]32.2 g/dL28.4 - 34.8 g/dLBon [facility] HospitalMCV (RBC) [Entitic vol]94.1 fL82.6 - 102.9 fLBon Secours Mary Immaculate HospitalMonocytes/100 WBC (Bld)11 %3 - 12 %[facility] Monocytes/100 WBC (Bld)1.11 %[facility] HospitalNeutrophils/100 WBC (Bld)71 %High36 - 65 %[facility] HospitalNucleated RBC/100 WBC (Bld) [Ratio]0.0 % 0.0 per 100 WBCBon Secours Mary Immaculate HospitalPlatelet mean volume (Bld) [Entitic vol] 8.8 fL8.1 - 13.5 fLBon Secours Mary Immaculate HospitalPlatelets (Bld) [#/Vol]333 10*3/uLBon [facility] HospitalRBC (Bld) [#/Vol]4.06 10*6/uL3.95 - 5.11 m/uLBon [facility] Immaculate HospitalSegmented neutrophils/100 WBC (Bld)6.91 %[facility] HospitalWBC other (Bld) [#/Vol]9.8Bon [facility] Medical CenterCBC with Diffon 90-91-7851Tgb. Basophil<0.83Skmkmq1.00-0.20MerKettering Health Miamisburg HospitalComment on above:Performed By: #### LACTIC #### [address] [place] [address] Phlebotomy Technician: Herber Howell.Imm.Granulocyte0.06 k/uLNormal0.00-0.30MerDanbury HospitalComment on above:Performed By: #### LACTIC #### [address] [place] [address] Phlebotomy Technician: Herber Howell.Neutrophil (Seg)6.91 k/uLNormal1.50-8.10[facility] Medical CenterComment on above:Performed By: #### LACTIC #### [address] [place], [place] [address] Phlebotomy Technician: Sharath Dennis MDBasophils/100 WBC (Bld)0 %Normal0-2[facility] HospitalComment on above:Performed By: #### LACTIC #### [address] [place] [address] Phlebotomy Technician: Sharath Dennis MDEosinophils (Bld) [#/Vol]0.13 10*3/uLNormal 0.00-0.44[facility] HospitalComment on above:Performed By: #### LACTIC #### [address] [place] [address] Phlebotomy Technician: JOSE MARIA Howellosinophils/100 WBC (Bld)1 %Normal1-4MerKettering Health Miamisburg HospitalComment on above:Performed By: #### LACTIC #### [address] [place], [place] [address] Phlebotomy Technician: Sharath Dennis MDErythrocyte distribution width (RBC) [Ratio]14.7 % High11.8-14.4[facility] HospitalComment on above:Performed By: #### LACTIC #### [address] [place] [address] Phlebotomy Technician: Sharath Dennis MDHematocrit (Bld) [Volume fraction]38.2 %Normal 36.3-47.1[facility] HospitalComment on above:Performed By: #### LACTIC #### [address] [place], [place] [address] Phlebotomy Technician: Sharath Dennis MDHemoglobin (Bld) [Mass/Vol]12.3 g/dLNormal 11.9-15.1[facility] HospitalComment on above:Performed By: #### LACTIC #### [address] [place] [address] Phlebotomy Technician: Sharath Sturtz, MDImmature granulocytes/100 WBC (Bld)1 %Ugwy5QipmcKettering Health [facility] HospitalComment on above:Performed By: #### LACTIC #### [address] [place], [place] 8[address]83 Phlebotomy Technician: Anselmo Howellmphocytes (Bld) [#/Vol]1.61 10*3/uLNormal 1.10-3.70[facility] HospitalComment on above:Performed By: #### LACTIC #### [address] [place] [address] Phlebotomy Technician: Anselmo Howellmphocytes/100 WBC (Bld)16 %Zpd50-05YbbmwCincinnati Children'S Hospital Medical CenterComment on above:Performed By: #### LACTIC #### [address] [place], [place] [id number] Phlebotomy Technician: LIANA HowellCH (RBC) [Entitic mass]30.3 zqFchqdr02.2-33.5 [facility] HospitalComment on above:Performed By: #### LACTIC #### [address] [place], [place] [address]32783 Phlebotomy Technician: LIANA HowellCHC (RBC) [Mass/Vol]32.2 g/sINpfxbh88.4-34.8[facility] HospitalComment on above:Performed By: #### LACTIC #### [address] [place], [place] 8808183 Phlebotomy Technician: LIANA HowellCV (RBC) [Entitic vol]94.1 nAYbzcet60.6-102.9 [facility] HospitalComment on above:Performed By: #### LACTIC #### [address] [place], [place] [id number] Phlebotomy Technician: LIANA Howellonocytes (Bld) [#/Vol]1.11 10*3/uLNormal0.10-1.20 [facility] Medical CenterComment on above:Performed By: #### LACTIC #### [address] [place] [address] Phlebotomy Technician: LIANA Howellonocytes/100 WBC (Bld)11 %Normal3-12[facility] Medical CenterComment on above:Performed By: #### LACTIC #### [address] [place] [address] Phlebotomy Technician: Anthony Howellophil (Seg)71 %Sozz96-43LiqznCincinnati Children'S Hospital Medical Center Comment on above:Performed By: #### LACTIC #### [address] [place], [place] [id number] Phlebotomy Technician: FRANCISCO JAVIER Howell Automated0.0 per 100 WBCNormal0.0[facility] Medical CenterComment on above:Performed By: #### LACTIC #### [address] [place] [address] Phlebotomy Technician: Gina Howell mean volume (Bld) [Entitic vol]8.8 fL Normal8.1-13.5[facility] Medical CenterComment on above:Performed By: #### LACTIC #### [address] [place] [address] Phlebotomy Technician: Nadja Howelltelyric (Bld) [#/Vol]333 10*3/nCWuomwk797-615 [facility] HospitalComment on above:Performed By: #### LACTIC #### [address] [place], [place] [address] Phlebotomy Technician: URSULA HowellBC (Bld) [#/Vol]4.06 10*6/uLNormal3.95-5.11[facility] HospitalComment on above:Performed By: #### LACTIC #### [address] [place] [address] Phlebotomy Technician: MOSHE Howell (Bld) [#/Vol]9.8 10*3/uLNormal3.5-11.3[facility]. Sinai HospitalComment on above:Performed By: #### LACTIC #### [facility] [address] [place], [place] 27[address] Phlebotomy Technician: Sharath Dennis [facility] 22-16-5222Pqfaaad [Mass/Vol]4.3 g/dL3.5 - 5.2 g/dLBon [facility] HospitalAlbumin/Globulin [Mass ratio]1.7 {ratio}1.0 - 2.5Bon [facility] HospitalALP [Catalytic activity/Vol]96 U/L35 - 104 U/LBon [facility] HospitalALT [Catalytic activity/Vol]14 U/L10 - 35 U/LBon [facility] HospitalAnion gap [Moles/Vol]11 mmol/L9 - 16 mmol/LBon [facility] AST [Catalytic activity/Vol]21 U/L10 - 35 U/LBon [facility] HospitalBilirubin [Mass/Vol]0.5 mg/dL0.00 - 1.20 mg/dLBon [facility] HospitalCalcium [Mass/Vol] 9.4 mg/dL8.6 - 10.4 mg/dLBon [facility] HospitalChloride [Moles/Vol]107 mmol/L 98 - 107 mmol/LBon [facility] HospitalCO2 [Moles/Vol]25 mmol/L20 - 31 mmol/LBon [facility] HospitalCreatinine [Mass/Vol]1.0 mg/dLHigh0.50 - 0.90 mg/dLBon [facility] HospitalEst, Glom Filt Tztg36Mon- PINFBon [facility] Comment on above: These results are [...] therapy that affects renal tubular secretion. Glucose [Mass/Vol]95 mg/dL74 - 99 mg/dLBon [facility] HealthPotassium [Moles/Vol]4.4 mmol/L3.7 - 5.3 mmol/LBon [facility] HealthProtein [Mass/Vol] 6.8 g/dL6.6 - 8.7 g/dLBon [facility] HealthSodium [Moles/Vol]143 mmol/L136 - 145 mmol/LBon [facility] HealthUrea nitrogen [Mass/Vol]33 mg/dLHigh8 - 23 mg/dLBon [facility] HealthUrea nitrogen/Creatinine [Mass ratio]33 mg/mgHigh9 - 20Bon [facility] HealthCT Head WO contraston 65-85-1771Hpnwkpax by Angelito Alfonso MD on 03/26/2024 3:32 PM EST ADDENDUM: Results were reported to Dr. Baxter by radiology results communication at 3:27 p.m. on March 26, 2024. Bon [facility] HospitalNo acute intracranial abnormality. [facility] CONSOLIDATEDEXAMINATION: CT OF THE HEAD WITHOUT CONTRAST 03/26/2024 [...] of the visualized skull or soft tissues. [facility] Angelito Huber MD - 03/26/2024 EXAMINATION: CT OF THE [...] soft tissues. IMPRESSION: No acute intracranial abnormality. [facility] ConductorSentara Virginia Beach General HospitalRadiology Study observation (narrative)[facility] Empowered CareersSC Head WO contrastOrdered By: Angelito Alfonso on [id number] Co[facility] Springs East HospitalSolido Design Automation Work Phone: CTA HEAD NECK W CONTRASTon 04-14-8352JLE HEAD NECK W CONTRASTEXAMINATION: CTA OF THE HEAD AND NECK WITH [...] Signed by: Angelito Alfonso MD 03/26/24 Final resultNormalMercy Griffin Hospital Head vessels and Neck vessels W contrast Bernardo 24-07-0176Oj large vessel occlusion in the head or neck. 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 [facility] RIS CONSOLIDATEDEXAMINATION: CTA OF THE HEAD AND NECK WITH [...] fluid collection. The kevin-white differentiation is maintained. Angelito Ponce MD - 03/26/2024 EXAMINATION: CTA OF THE [...] proximal to mid basilar artery, normal variant. [facility] CampusRadiology Study observation (narrative)[facility] Metabolic Profon 08-28-4365Iziazsu [Mass/Vol]4.3 g/dLNormal3.5-5.2[facility] HospitalComment on above:Performed By: #### LACTIC #### [facility] [address] [place] [address] [place] [address] Phlebotomy Technician: Sharath Dennis MDAlbumin/Glob Ratio1.5Hjvgxv6.0-2.5[facility] Medical CenterComment on above:Performed By: #### LACTIC #### [facility] [address] [place] [address] [place] [address] Phlebotomy Technician: Jose Luis Howellkaline Phos96 U/QHcbnhl14-703StetyCincinnati Children'S Hospital Medical CenterComment on above:Performed By: #### LACTIC #### [facility] [address] [place] [address] [place] [address] Phlebotomy Technician: Sharath Dennis MDALT [Catalytic activity/Vol]14 U/NWfbzog75-16NadfoCincinnati Children'S Hospital Medical CenterComment on above:Performed By: #### LACTIC #### [address] [place] [address] Phlebotomy Technician: Sharath Dennis MDAnion gap [Moles/Vol]11 mmol/LNormal9-16[facility] HospitalComment on above:Performed By: #### LACTIC #### [address] [place] [address] Phlebotomy Technician: Sharath Dennis MDAST [Catalytic activity/Vol]21 U/ACxsfgt75-91Nuiys [facility]iffin HospitalComment on above:Performed By: #### LACTIC #### [address] [place] [address] Phlebotomy Technician: Sharath Dennis MDBilirubin [Mass/Vol]0.5 mg/dLNormal0.00-1.20[facility] Medical CenterComment on above:Performed By: #### LACTIC #### [address] [place] [address] Phlebotomy Technician: Sharath Dennis MDBUN/CRE Rpird25Qkej5-52SfbmjCincinnati Children'S Hospital Medical Center Comment on above:Performed By: #### LACTIC #### [address] [place] [address] Phlebotomy Technician: MARCO Howellalcium [Mass/Vol]9.4 mg/dLNormal8.6-10.4[facility] Medical CenterComment on above:Performed By: #### LACTIC #### [address] [place] [address] Phlebotomy Technician: MARCO Howellhloride [Moles/Vol]107 mmol/JXguhuo67-532JmjaqCincinnati Children'S Hospital Medical CenterComment on above:Performed By: #### LACTIC #### [address] [place] [address] Phlebotomy Technician: MARCO HowellO2 [Moles/Vol]25 mmol/BMwreqf71-26ZhakmCincinnati Children'S Hospital Medical CenterComment on above:Performed By: #### LACTIC #### [address] [place] [address] Phlebotomy Technician: MARCO Howellreatinine [Mass/Vol]1.0 mg/dLHigh0.50-0.90[facility] Medical CenterComment on above:Performed By: #### LACTIC #### [address] [place] [address] Phlebotomy Technician: Sharath Dennis MDGFR/1.73 sq M.predicted among non-blacks MDRD (S/P/Bld) [Vol rate/Area]58 mL/min/{1.73_m2}Low>60C[facility] Medical CenterComment on above:Result Comment: These results are not intended for [...] or following therapy that affects renal tubular secretion.Performed By: #### LACTIC #### [address] [place] [address] Phlebotomy Technician: Sharath Dennis MDGlucose [Mass/Vol]95 mg/fAUkpojp70-89TvlfzSt. Rita's HospitalComment on above:Performed By: #### LACTIC #### [address] [place] [address] Phlebotomy Technician: TAYA Howellotassium [Moles/Vol]4.4 mmol/LNormal3.7-5.3[facility] HospitalComment on above:Performed By: #### LACTIC #### [facility] [address] [place] [address] Phlebotomy Technician: TAYA Howellrotein [Mass/Vol]6.8 g/dLNormal6.6-8.7[facility] Medical CenterComment on above:Performed By: #### LACTIC #### [facility] [address] [place] [address] [place], [place] [id number] Phlebotomy Technician: KAREN Howellodium [Moles/Vol]143 mmol/CVpnkow551-669ZqezsCincinnati Children'S Hospital Medical CenterComment on above:Performed By: #### LACTIC #### [address] [place], [place] [id number] Phlebotomy Technician: Sharath Dennis MDUrea nitrogen [Mass/Vol]33 mg/dLHigh8-23[facility] Medical CenterComment on above:Performed By: #### LACTIC #### [address] [place] [address] Phlebotomy Technician: Sharath Dennis MDGlucose, Whole Bloodon 42-77-4708Jlnxims [Mass/Vol]77 mg/dL74 - 100 mg/dLBon [facility] Glucose, Whole BloodOrdered By: Marbella Bernstein on 88-17-2636Dzzkdha [Mass/Vol]77 mg/sZAjhfwf40-235XheBon Secours Mary Immaculate HospitalMicroscopic Urinalysison 42-65-8171Yknnnuxd LM Ql (Urine sed)2+AbnormalNoneBon [facility] Character (U)Urine Reflexed to CultureAbnormalNOT REQ.[facility] Epithelial cells LM.HPF (Urine sed) [#/Area]0 TO 2Bon [facility] Interpretation and review of laboratory resultsAbnormalBon [facility] RBC LM.HPF (Urine sed) [#/Area]0 TO 2Bon [facility] HospitalWBC LM.HPF (Urine sed) [#/Area]10 TO 20Bon [facility] CenterNo Panel Informationon 24-44-1049Iutnndiitstqsx and review of laboratory resultsAbnormal [facility] CampusPOCT glucoseOrdered By: Marbella Bernstein on 28-71-1661Ltudfcocapmbmv and review of laboratory results NormalBon Secours Mary Immaculate HospitalQC OK?yesBon [facility] CenterPortable XR Chest AP single viewon 98-41-4581Ro radiographic evidence of an acute cardiopulmonary process. [facility] CONSOLIDATEDEXAMINATION: ONE XRAY VIEW OF THE CHEST 03/26/2024 2:03 pm COMPARISON: 04/04/2023. HISTORY: ORDERING SYSTEM PROVIDED HISTORY: Shortness of Breath TECHNOLOGIST PROVIDED HISTORY: Shortness of Breath aphasia FINDINGS: The lungs and costophrenic angles are clear. The cardiomediastinal silhouette, pulmonary vessels and interstitium appear normal. [facility] Jose Pereira MD - 03/26/2024 EXAMINATION: ONE XRAY VIEW OF THE CHEST 03/26/2024 2:03 pm COMPARISON: 04/04/2023. HISTORY: ORDERING SYSTEM PROVIDED HISTORY: Shortness of Breath TECHNOLOGIST PROVIDED HISTORY: Shortness of Breath aphasia FINDINGS: The lungs and costophrenic angles are clear. The cardiomediastinal silhouette, pulmonary vessels and interstitium appear normal. IMPRESSION: No radiographic evidence of an acute cardiopulmonary process. [facility]aculate HospitalRadiology Study observation (narrative)[facility] HospitalPortberaja medical institute XR Chest AP single viewOrdered By: Jose Holt on 98-24-7634Zhu [facility] Work Phone: Troponinon 82-92-8702Orawfxab I.cardiac High sensitivity method [Mass/Vol]25 ng/LHigh0 - 14 ng/LBon [facility] Comment on above:High Sensitivity Troponin values cannot be compared with other Troponin methodologies.Troponin, High Sens25 ng/LHigh0-14[facility] Comment on above:Result Comment: High Sensitivity Troponin values cannot be compared with other Troponin methodologies.Performed By: #### CP, TROPI, CDP ####[facility] [place], [id number] Lab Director: CHANDLER Howell w/Reflex Cultureon 84-44-8546Oasyphszp, SemiQt,UrNegativeNormalNEGCincinnati Children'S Hospital Medical CenterComment on above:Performed By: #### LACTIC #### [facility] [address] [place], [place] [id number] Phlebotomy Technician: Lowell Howell, UrineNegativeMetroHealth [facility] Comment on above:Performed By: #### LACTIC #### [facility] [address] [place], [place] [address] Phlebotomy Technician: MARCO Howelllarity ()ClearNoalCLEARCincinnati Children'S Hospital Medical Center Comment on above:Performed By: #### LACTIC #### [facility] [address] [place] [address] Dr[address] [place], [place] [id number] Phlebotomy Technician: MARCO Howellolor (U)YellowNoalYWhite Hospital Comment on above:Performed By: #### LACTIC #### [facility] [address] [place] [address] Dr[address] [place], [place] [id number] Phlebotomy Technician: Sharath Dennis MDGlucose Ql (U)NegativeNormalNEGCincinnati Children'S Hospital Medical CenterComment on above:Performed By: #### LACTIC #### [facility] [address] [place], [place] [id number] Phlebotomy Technician: Sharath Dennis MDKetones Ql (U)NegativeNormalNEGCincinnati Children'S Hospital Medical CenterComment on above:Performed By: #### LACTIC #### [facility] [address] [place], [place] [id number] Phlebotomy Technician: Sharath Dennis MDLeukocyte esterase Test strip Ql (U)SMALLAbnormal NEGCincinnati Children'S Hospital Medical CenterComment on above:Performed By: #### LACTIC #### [facility] [address] [place], [place] [id number] Phlebotomy Technician: Sharath Dennis MDNitrite,UrPositiveAbnormalNEGCincinnati Children'S Hospital Medical Center Comment on above:Performed By: #### LACTIC #### [facility] [address] [place] [address] Dr[place], [place] [id number] Phlebotomy Technician: TAYA Howell,Ur6.5Fhjvly6.0-9.0C[facility] Medical CenterComment on above:Performed By: #### LACTIC #### [facility] [address] [place] [address] [place] [address] Phlebotomy Technician: TAYA Howellrotein Ql (U)NegativeNormalNEGCincinnati Children'S Hospital Medical CenterComment on above:Performed By: #### LACTIC #### [address] [place] [address] Phlebotomy Technician: Melecio Howell. Forestdale,Ur1.438Bfhiku2.010-1.020[facility] Medical CenterComment on above:Performed By: #### LACTIC #### [facility] [address] [place] [address] [place] [address] Phlebotomy Technician: Yann Howellbilinogen,UrNormalNormal0.0-1.0[facility] Medical CenterComment on above:Performed By: #### LACTIC #### [address] [place], [place] [address]83 Phlebotomy Technician: Sharath Dennis MDUrinalysis with Reflex to Cultureon 03-26-2024 Bilirubin Ql (U)NegativeNEGATIVEBon Secours [facility] Hospitaly HealthClarity (U)ClearClearBon [facility]ours Doctors Hospital HealthColor (U)YellowYellowBon Secours Doctors Hospital HealthGlucose Test strip (U) [Mass/Vol]NegativeNEGATIVE mg/dLBon Secours White HospitalHemoglobin Auto test strip Ql (U)NegativeNEGATIVEBon Secours Bethesda North Hospitaly HealthInterpretation and review of laboratory resultsAbnormalBon Secours Bethes[facility] North Hospitaly HealthKetones (U) [Mass/Vol]NegativeNEGATIVE mg/dLBon Secours White HospitalLeukocyte esterase Test strip Ql (U)SMALLAbnormalNEGATIVEBon [facility] HospitalNitrite Ql (U)Positive AbnormalNEGATIVEBon [facility] HospitalpH (U)6.0 [pH]5.0 - 9.0Bon [facility] Immaculate HospitalProtein (U) [Mass/Vol]NegativeNEGATIVE mg/dLBon [facility] Specific gravity (U) [Rel density]1.0101.010 - 1.020Bon [facility] Urobilinogen Qn (U)Normal0.0 - 1.0 EU/dLBon [facility] HospitalBon [facility] HospitalUrinalysis,Microon 26-86-4851Jtcxsfri7+AbnormalNONEMeYale New Haven Psychiatric HospitalComment on above:Performed By: #### LACTIC #### [facility] [address] [place], [place] [id number] Phlebotomy Technician: Sharath Dennis MDEpithelial cells LM Ql (Urine sed)0 TO 8Lbbtkj3-32 [facility] Medical CenterComment on above:Performed By: #### LACTIC #### [facility] [address] [place], [place] [id number] Phlebotomy Technician: Sharath Dennis MDOther ObservationsUrine Reflexed to Culture AbnormalNREQCincinnati Children'S Hospital Medical CenterComment on above:Performed By: #### LACTIC #### [facility] [address] [place], [place] [id number] Phlebotomy Technician: Sharath Dennis MDUrine RBC's0 TO 8Fkdfoc1-4UlqaoSt. Rita's Hospital Comment on above:Performed By: #### LACTIC #### [facility] [address] [place] [address] Phlebotomy Technician: Daniel Howell WBC's10 TO 80Mxcxdt8-1LtcmaCincinnati Children'S Hospital Medical Center Comment on above:Performed By: #### LACTIC #### [facility] [address] [place], [place] [id number] Phlebotomy Technician: BONITA HowellR CHEST PORTABLEon 53-80-5356SM CHEST PORTABLE EXAMINATION: ONE XRAY VIEW OF [...] Signed by: Jose Holt MD 03/26/24 Final resultNoClinton Memorial Hospital LUMBAR SPINE WO CONTRASTon 02-17-2024 CT LUMBAR SPINE WO CONTRASTEXAMINATION: CT OF THE LUMBAR SPINE WITHOUT CONTRAST [...] Signed by: Holden Simon MD 02/17/24 Final resultNoClinton Memorial Hospital Lumbar spine WO contraston 02-17-2024 EXAMINATION: CT OF THE LUMBAR SPINE [...] significant osseous neuroforaminal stenosis. Imaged abdomen/pelvis: Unremarkable. [facility] Holden Yip MD - 02/17/2024 EXAMINATION: CT OF THE [...] 20% height loss. 2. Multilevel lumbar spondylosis. [facility] HospitalSolido Design AutomationSC Lumbar spine WO contrastOrdered By: Holden Simon on 43-81-9071Jeu [facility] HospitalSolido Design AutomationSC Lumbar spine WO contraston 02-16-2024 Radiology Study observation (narrative)[facility] HospitalMicroscopic Urinalysison 47-40-1113Vcpbscyf LM Ql (Urine sed)TRACEAbnormalNoneBon [facility] HospitalEpithelial cells LM.HPF (Urine sed) [#/Area]2 TO 5Bon [facility] HospitalInterpretation and review of laboratory resultsAbnormalBon Secours Mercy HealthRBC LM.HPF (Urine sed) [#/Area]0 TO 2Bon [facility] Hospital - YoungstownBC LM.HPF (Urine sed) [#/Area]2 TO 5Bon [facility] CenterUA w/Reflex Cultureon 61-84-3866Sdlmgqgci, SemiQt,UrNegativeNormalNEGMerDanbury HospitalComment on above:Performed By: #### UAX, UMICAO #### [facility] [address] [place], [place] [id number] Phlebotomy Technician: Lowell Howell, UrineNegativeMetroHealth Cleveland Heights Medical Center Comment on above:Performed By: #### UAX, UMICAO #### [facility] [address] [place], [place] [id number] Phlebotomy Technician: Bryan Howellrity (ClearNoalCLEARCincinnati Children'S Hospital Medical Center Comment on above:Performed By: #### UAX, UMICAO #### [facility] [address] [place], [place] [id number] Phlebotomy Technician: Naresh Howell (YellowNoalYWhite Hospital Comment on above:Performed By: #### UAX, UMICAO #### [facility] [address] [place] [address] Dr[place], [place] [id number] Phlebotomy Technician: Sharath Dennis MDGlucose Ql (U)NegativeNormalNEGCincinnati Children'S Hospital Medical CenterComment on above:Performed By: #### UAX, UMICAO #### [facility] [address] [place], [place] [id number] Phlebotomy Technician: Sharath Dennis MDKetones Ql (U)NegativeNormalNEGCincinnati Children'S Hospital Medical CenterComment on above:Performed By: #### UAX, UMICAO #### [facility] [address] [place] [address] Phlebotomy Technician: Sharath Dennis MDLeukocyte esterase Test strip Ql (U)SMALLAbnormal NEGCincinnati Children'S Hospital Medical CenterComment on above:Performed By: #### UAX, UMICAO #### [facility] [address] [place] [address] [place], [place] [id number] Phlebotomy Technician: Sharath Dennis MDNitrite,UrNegativeNormalNEGCincinnati Children'S Hospital Medical Center Comment on above:Performed By: #### UAKATIE GarciaO #### [facility] [address] [place] [address] Dr[place], [place] [id number] Phlebotomy Technician: TAYA Howell,Ur6.1Qbwfbw2.0-9.0[facility] Medical CenterComment on above:Performed By: #### KATIE VALDEZO #### [address] [place], [place] [address] Phlebotomy Technician: TAYA Howellrotein Ql (U)NegativeNormalNEGCincinnati Children'S Hospital Medical CenterComment on above:Performed By: #### SHELBI VALDEZ #### [address] [place] [address] Phlebotomy Technician: KAREN Howellpec. [place]std[place],Ur1.573Rwxrca5.010-1.020[facility] Medical CenterComment on above:Performed By: #### SHELBI VALDEZ #### [address] [place] [address] Phlebotomy Technician: Sharath Dennis MDUrobilinogen,UrNormalNormal0.0-1.0[facility] Medical CenterComment on above:Performed By: #### ALEXX, REYMUNDOICAO #### [address] [place], [place] [phone] Phlebotomy Technician: Sharath Dennis MDUrinalysis with Reflex to Cultureon 01-21-2024 Bilirubin Ql (U)NegativeNEGATIVEBon Secours Mercy HealthClarity (U)ClearClearBon [facility] HealthColor (U)YellowYellowBon [facility] HospitalGlucose Test strip (U) [Mass/Vol]NegativeNEGATIVE mg/dLBon [facility] HospitalHemoglobin Auto test strip Ql (U)NegativeNEGATIVEBon [facility] HospitalInterpretation and review of laboratory resultsAbnormalBon [facility] Hospital HealthKetones (U) [Mass/Vol]NegativeNEGATIVE mg/dLBon [facility] HospitalLeukocyte esterase Test strip Ql (U)SMALLAbnormalNEGATIVEBon [facility] HealthNitrite Ql (U)Negative NEGATIVEBon [facility] HealthpH (U)6.0 [pH]5.0 - 9.0Bon [facility] Protein (U) [Mass/Vol]NegativeNEGATIVE mg/dLBon [facility] HealthSpecific gravity (U) [Rel density]1.0151.010 - 1.020Bon [facility] HospitalUrobilinogen Qn (U)Normal0.0 - 1.0 EU/dLBon [facility] Urinalysis,Microon [id number]gTQPHTaixf [facility] Comment on above:Performed By: #### SHELBI VALDEZ #### [facility] [address] [place] [address] Phlebotomy Technician: Sharath Dennis MDEpithelial cells LM Ql (Urine sed)2 TO 8Cwmekf7-31 [facility] Medical CenterComment on above:Performed By: #### SHELBI VALDEZ #### [facility] [address] [place] [address] Phlebotomy Technician: Sharath Dennis MDUrine RBC's0 TO 2Mzhmqj5-7SdxhvSt. Rita's Hospital Comment on above:Performed By: #### SHELBI VALDEZ #### [facility] [address] [place] [address] Phlebotomy Technician: Sharath Dennis MDUrine WBC's2 TO 7Ultajb7-8AvbvcCincinnati Children'S Hospital Medical Center Comment on above:Performed By: #### REYMUNDO VALDEZICAO #### [facility] [address] [place] [address] Phlebotomy Technician: KACEY Howell LUMBAR SPINE (2-3 VIEWS)on 29-04-5201BH LUMBAR SPINE (2-3 VIEWS)EXAMINATION: 3 XRAY VIEWS OF THE LUMBAR SPINE [...] Signed by: Kel Hennessy MD 01/21/24 Final resultNormalMerMilford Hospital Lumbar spine 2 or 3 Viewson 01-21-2024 Multilevel degenerative change without acute abnormality of the lumbar spine. [facility] CONSOLIDATEDEXAMINATION: 3 XRAY VIEWS OF THE LUMBAR SPINE [...] joints. The surrounding soft tissues are unremarkable. [facility] Kel Chin MD - 01/21/2024 EXAMINATION: 3 XRAY VIEWS [...] without acute abnormality of the lumbar spine. [facility] HospitalRadiology Study observation (narrative)[facility] HealthXR Lumbar spine 2 or 3 ViewsOrdered By: Kel Hennessy on 66-03-3611Icz [facility] Work Phone: cbc with Auto Differentialon [id number] Eos # 0.20B[facility] HOSPITALAbsolute Immature GranulocyteBON SECOUR LAD[facility] OF [facility]CY HOSPITALAbsolute Lymph #1.03LowB[facility] HEALTHAbsolute Crisp #0.60[facility] HEALTHBasophils AbsoluteB[facility] HEALTHBasophils/100 WBC (Bld)0 %0 - 2 %[facility]ICAL CENTEREosinophils/100 WBC (Bld)5 %High1 - 4 % [facility] CENTERHematocrit (Bld) [Volume fraction]38.4 %36.3 - 47.1 %[facility] CENTERHemoglobin (Bld) [Mass/Vol]11.8 g/dLLow11.9 - 15.1 g/dLBON ADENA FAYETTE MEDICAL CENTERImmature granulocytes/100 WBC (Bld)0 %0B[facility] MEDICAL CENTERInterpretation and review of laboratory resultsAbnormalBON ADENA FAYETTE MEDICAL CENTERLymphocytes/100 WBC (Bld)23 %Low24 - 43 %[facility] CENTERH (RBC) [Entitic mass]29.3 pg25.2 - 33.5 pgSENTARA NORTHERN VIRGINIA MEDICAL CENTERHC (RBC) [Mass/Vol]30.7 g/dL28.4 - 34.8 g/dLBON DOCTORS HOSPITALV (RBC) [Entitic vol]95.3 fL82.6 - 102.9 fLHENRICO DOCTORS' HOSPITAL—PARH[facility]AMPUS HEALTHMonocytes/100 WBC (Bld)14 % High3 - 12 %[facility] CENTERNRBC Automated0.00.0 per 100 WBCBON [facility] HEALTHPlatelet distribution width (Bld) [Ratio]14.1 %11.8 - 14.4 %[facility] HEALTHPlatelet mean volume (Bld) [Entitic vol]9.8 fL8.1 - 13.5 fL [facility] HEALTHPlatelets (Bld) [#/Vol]185 10*3/uLBON SECOUR LADY OF THE [facility]OSPITAL HEALTHRBC (Bld) [#/Vol]4.03 10*6/uL3.95 - 5.11 m/uLBON SECOUR LADY OF MER[facility]ITAL Segmented neutrophils/100 WBC (Bld)58 %36 - 65 %B[facility] SEC[facility] LADY OF MERCY HOSPITALSegs Absolute2.59BON SECOURS [facility] SPECIALTY HOSPITAL - TRUMBULLWBC (Bld) [#/Vol]4.5 10*3/uLBON SECOURS SELECT MEDICAL SPECIALTY HOSPITAL - TRUMBULLBON SECOURS PRE[facility]ER [facility] HEALTHCMPon [id number] [Mass/Vol]4.2 g/dL 3.5 - 5.2 g/dLBON [facility] HEALTHAlbumin/Globulin [Mass ratio]1.7 {ratio}1 - 2.5BON [facility] HEALTHALP (Bld) [Catalytic activity/Vol]100 U/L35 - 104 U/LBON [facility] HEALTHALT [Catalytic activity/Vol]21 U/L5 - 33 U/LBON [facility] HEALTHAnion gap [Moles/Vol]9 mmol/L9 - 17 mmol/LBON [facility] HEALTHAST [Catalytic activity/Vol]21 U/LNINF - 32 U/LBON [facility]ALTH Bilirubin [Mass/Vol]0.5 mg/dL0.3 - 1.2 mg/dLBON [facility] HEALTHCalcium [Mass/Vol]9.6 mg/dL8.6 - 10.4 mg/dLBON [facility] HEALTHChloride [Moles/Vol] 102 mmol/L98 - 107 mmol/LBON [facility] HEALTHCO2 [Moles/Vol]27 mmol/L20 - 31 mmol/LBON [facility] HEALTHCreatinine [Mass/Vol]0.73 mg/dL0.5 - 0.9 mg/dLBON SEC[facility] - TRUMBULLFree PSA/Total PSA [Mass fraction]6.7 g/dL6.4 - 8.3 g/dLBON [facility] HEALTHGFR >6060 - PINF mL/minBON [facility] HEALTHGFR Non->6060 - PINF mL/minBON [facility] HEALTHGlucose [Mass/Vol]94 mg/dL70 - 99 mg/dLBON [facility] HEALTHInterpretation and review of laboratory resultsAbnormalBON [facility] HEALTHPotassium [Moles/Vol]4.3 mmol/L3.7 - 5.3 mmol/LBON [facility] HEALTHSodium [Moles/Vol]138 mmol/L135 - 144 mmol/LBON [facility] HEALTHUrea nitrogen (BldV) [Mass/Vol]20 mg/dL8 - 23 mg/dLBON ADE[facility] FAYETTE MEDICAL CENTERUrea nitrogen/Creatinine (Bld) [Mass ratio]56Mhnh9 - 20BON [facility] MEDICAL CENTERBON [facility] MEDICAL CENTERLaboratory - Chemistry and Chemistry - challengeon 62-45-9814DGJ/1.73 sq M.predicted MDRD (S/P/Bld) [Vol rate/Area][facility] on above:Average GFR for 70 or more years old: 75 mL/min/1.73sq m Chronic Kidney Disease: <60 mL/min/1.73sq m Kidney failure: <15 mL/min/1.73sq m eGFR calculated using average adult body mass. Additional eGFR calculator available at: http://www.M-DAQ/multiple_crcl_2012.htm Stage 1: Some kidney damage normal GFR Stage 2: Mild kidney damage GFR 60-89 Stage 3: Moderate kidney damage GFR 30-59 Stage 4: Severe kidney damage GFR 15-29 Stage 5: Severe kidney damage GFR <15 ESRD - chronic treatment by dialysis or transplant Troponinon 90-61-5552Fdvtcngf, High Iprkcmlqmxp99 ng/L0 - 14 ng/LBON [facility] on above: High Sensitivity Troponin values cannot be compared with other Troponin methodologies. Patients with high levels of Biotin oral intake (i.e >5mg/day) may have falsely decreased Troponin levels. Samples collected within 8 hours of biotin intake may require additional information for diagnosis. [facility] Pavilion DataREGIONAL MEDICAL CENTERInterpretation and review of laboratory resultsAbnormal [facility] Pavilion DataREGIONAL MEDICAL CENTERTroponin, High Inrbyvbtjej62 ng/LHigh0 - 14 ng/LBON [facility] on above: High Sensitivity Troponin values cannot be compared with other Troponin methodologies. Patients with high levels of Biotin oral intake (i.e >5mg/day) may have falsely decreased Troponin levels. Samples collected within 8 hours of biotin intake may require additional information for diagnosis. BON [employer]ird[employer] PharmaceuticalsXR FOOT LEFT (MIN 3 VIEWS)on 89-25-8974Zx acute findings. [facility] RIS CONSOLIDATEDEXAMINATION: THREE XRAY VIEWS OF THE LEFT FOOT 10/15/2021 4:02 pm COMPARISON: None. HISTORY: ORDERING SYSTEM PROVIDED HISTORY: Pain FINDINGS: Foot alignment is anatomic. Generalized osteopenia. No acute fracture. Mild degenerative change midfoot. Threaded screw anterior aspect of the calcaneus. Soft tissues unremarkable. [facility] Hermes Blackwood DO - 10/16/2021 EXAMINATION: THREE XRAY VIEWS OF THE LEFT FOOT 10/15/2021 4:02 pm COMPARISON: None. HISTORY: ORDERING SYSTEM PROVIDED HISTORY: Pain FINDINGS: Foot alignment is anatomic. Generalized osteopenia. No acute fracture. Mild degenerative change midfoot. Threaded screw anterior aspect of the calcaneus. Soft tissues unremarkable. IMPRESSION: No acute findings. [employer] Phone: XR FOOT LEFT (MIN 3 VIEWS)Ordered By: Hermes Cortez on [id number] [employer] Phone: XR FOOT RIGHT (MIN 3 VIEWS)on [id number] acute findings. [facility] RIS CONSOLIDATEDEXAMINATION: THREE XRAY VIEWS OF THE RIGHT FOOT 10/15/2021 4:03 pm COMPARISON: None. HISTORY: ORDERING SYSTEM PROVIDED HISTORY: Pain FINDINGS: No acute findings. Mild hallux valgus deformity. Moderate degenerative change midfoot and 1st metatarsophalangeal joint. Generalized osteopenia. Soft tissues unremarkable. [facility] Hermes Blackwood DO - 10/16/2021 EXAMINATION: THREE XRAY VIEWS OF THE RIGHT FOOT 10/15/2021 4:03 pm COMPARISON: None. HISTORY: ORDERING SYSTEM PROVIDED HISTORY: Pain FINDINGS: No acute findings. Mild hallux valgus deformity. Moderate degenerative change midfoot and 1st metatarsophalangeal joint. Generalized osteopenia. Soft tissues unremarkable. IMPRESSION: No acute findings. [employer] Phone: XR FOOT RIGHT (MIN 3 VIEWS)Ordered By: Hermes Cortez on [id number] [employer] Phone: Basic Metabolic Panelon 74-53-1374Hadet gap [Moles/Vol]10 mmol/L9 - 17 mmol/LBON [facility] HEALTHCalcium [Mass/Vol]9.7 mg/dL8.6 - 10.4 mg/dLBON [facility] HEALTHChloride [Moles/Vol]105 mmol/L98 - 107 mmol/LBON [facility] HEALTHCO2 [Moles/Vol]27 mmol/L20 - 31 mmol/LBON [facility] HEALTHCreatinine [Mass/Vol]0.84 mg/dL0.5 - 0.9 mg/dLBON [facility] HEALTHGFR >6060 - PINF mL/minBON [facility]CY HEALTHGFR Non->6060 - PINF mL/minBON [facility] HEALTHGlucose [Mass/Vol]98 mg/dL70 - 99 mg/dLBON SECMASON GENERAL HOSPITALY HEALTHInterpretation and review of laboratory resultsAbnormalBON [facility] HEALTHPotassium [Moles/Vol]4.5 mmol/L3.7 - 5.3 mmol/LBON [facility] HEALTHSodium [Moles/Vol]142 mmol/L135 - 144 mmol/LBON [facility] HEALTHUrea nitrogen (BldV) [Mass/Vol]29 mg/dLHigh8 - 23 mg/dLBON SECS[facility] MERCY HEALTHUrea nitrogen/Creatinine (Bld) [Mass ratio]35 High9 - 20BON [facility] MERCY HOSPITALLaboratory - Chemistry and Chemistry - challengeon 90-06-3994LCE/1.73 sq M.predicted MDRD (S/P/Bld) [Vol rate/Area][facility]ENTERComment on above:Average GFR for 70 or more years old: 75 mL/min/1.73sq m Chronic Kidney Disease: <60 mL/min/1.73sq m Kidney failure: <15 mL/min/1.73sq m eGFR calculated using average adult body mass. Additional eGFR calculator available at: http://www.M-DAQ/multiple_crcl_2012.htm Stage 1: Some kidney damage normal GFR Stage 2: Mild kidney damage GFR 60-89 Stage 3: Moderate kidney damage GFR 30-59 Stage 4: Severe kidney damage GFR 15-29 Stage 5: Severe kidney damage GFR <15 ESRD - chronic treatment by dialysis or transplant No Panel Informationon 62-32-3212LTD [email or web address] [facility]IL[facility] HOSPITALSedimentation Rateon 95-87-7448Dcp Gpoy0FKZ [facility] NORTHRedBrick Health FORT HAMILTON HOSPITALBON [email or web address] FOR[facility] H[facility]ILTON HOSPITALUric Acidon 06-28-9280Wxbbu [Mass/Vol]4.5 mg/dL2.4 - 5.7 mg/dLBON [email or web address] HEALTHXR FOOT LEFT (MIN 3 VIEWS)on 98-59-3356Votpxaawt Study observation (narrative)[employer] Work Phone: XR FOOT RIGHT (MIN 3 VIEWS)on 54-71-8809Sfotslxxr Study observation (narrative)[employer] Work Phone: cBC with Auto Differentialon 39-95-6970Mqjxhcix Eos # 0.23BON SECRegalamosAbsolute Immature Granulocyte0.07BON SECOURS SpiralcatAbsolute Lymph #1.92BON SECOURS SpiralcatAbsolute Crisp #1.14BON SECRegalamosBasophils AbsoluteBON SECOURS SpiralcatBasophils/100 WBC (Bld)0 %0 - 2 %ShopitizeEosinophils/100 WBC (Bld)3 %1 - 4 %ShopitizeHematocrit (Bld) [Volume fraction]38.6 %36.3 - 47.1 %BON SECRegalamosHemoglobin (Bld) [Mass/Vol]12.0 g/dL11.9 - 15.1 g/dLBON SECRegalamosImmature granulocytes/100 WBC (Bld)1 %Luxs8KXY [employer] Interpretation and review of laboratory resultsAbnormalBON [employer] Lymphocytes/100 WBC (Bld)24 %24 - 43 %BON SECRegalamosH (RBC) [Entitic mass]29.6 pg25.2 - 33.5 pgBON SECRegalamosHC (RBC) [Mass/Vol]31.1 g/dL28.4 - 34.8 g/dLBON SECRegalamosV (RBC) [Entitic vol]95.1 fL82.6 - 102.9 fLBON [facility] HEALTHMonocytes/100 WBC (Bld)15 %High3 - 12 %BON [facility] HEALTHNRBC Automated0.00.0 per 100 WBCBON [facility] Platelet distribution width (Bld) [Ratio]13.2 %11.8 - 14.4 %B[facility] HEALTHPlatelet mean volume (Bld) [Entitic vol]9.1 fL8.1 - 13.5 fLBON [facility]RS [facility] HEALTHPlatelets (Bld) [#/Vol]278 10*3/uLBON [facility] MERCY HEALTHRBC (Bld) [#/Vol]4.06 10*6/uL3.95 - 5.11 m/uLBON [facility] HEALTHSegmented neutrophils/100 WBC (Bld)57 %36 - 65 %BON [facility] HEALTHSegs Absolute4.51 B[facility] HEALTHWBC (Bld) [#/Vol]7.9 10*3/uLBON [facility] HEALTHBON [facility] HEALTHCMPon 70-52-8335Vkinlcw [Mass/Vol]3.7 g/dL3.5 - 5.2 g/dLBON [facility] HEALTHAlbumin/Globulin [Mass ratio]1.5 {ratio}1 - 2.5BON [facility]Y HEALTHALP (Bld) [Catalytic activity/Vol]93 U/L35 - 104 U/LBON [facility] HEALTHALT [Catalytic activity/Vol]20 U/L5 - 33 U/LBON [facility] HEALTH Anion gap [Moles/Vol]10 mmol/L9 - 17 mmol/LBON [facility]Y HEALTHAST [Catalytic activity/Vol]17 U/LNINF - 32 U/LBON [facility] HEALTHBilirubin [Mass/Vol]0.31 mg/dL0.3 - 1.2 mg/dLBON [facility] HEALTHCalcium [Mass/Vol]9.1 mg/dL8.6 - 10.4 mg/dLBON [facility] HEALTHChloride [Moles/Vol]104 mmol/L98 - 107 mmol/LBON [facility] HEALTHCO2 [Moles/Vol]25 mmol/L20 - 31 mmol/LBON [facility] HEALTHCreatinine [Mass/Vol]0.7 mg/dL0.5 - 0.9 mg/dLBON A[facility]TE MEDICAL CENTERFree PSA/Total PSA [Mass fraction]6.1 g/dLLow6.4 - 8.3 g/dLBON [facility] FAYETTE MEDICAL CENTERGFR >6060 - PINF mL/minBON [facility]TE MEDICAL CENTERGFR Non->6060 - PINF mL/minBON [facility]ETTE MEDICAL CENTERGlucose [Mass/Vol]95 mg/dL70 - 99 mg/dLBON [facility]TE MEDICAL CENTERInterpretation and review of laboratory resultsAbnormalBON A[facility]ETTE MEDICAL CENTERPotassium [Moles/Vol]4.2 mmol/L3.7 - 5.3 mmol/LBON [facility] F[facility]ETTE MEDICAL CENTERSodium [Moles/Vol]139 mmol/L135 - 144 mmol/LBON [facility] FAYETTE MEDICAL CENTERUrea nitrogen (BldV) [Mass/Vol]35 mg/dLHigh8 - 23 mg/dLBON ADENA FAYETTE MEDICAL CENTERUrea nitrogen/Creatinine (Bld) [Mass ratio]50 High9 - 20BON [facility]ETTE MEDICAL CENTERCOVID-19, Rapidon [id number]-CoV-2 (COVID- 19) RNA LADAN+probe Ql (Unsp spec)Not detectedNot [facility] Comment on above: Rapid NAAT: The specimen [...] management decisions. Fact sheet for Healthcare Providers: https://www.fda.gov/media/383576/download Fact sheet for Patients: https://www.fda.gov/media/612067/download Methodology: Isothermal Nucleic Acid Amplification Specimen Description.NASOPHARYNGEAL SWABBON ADENA FAYETTE MEDICAL CENTERBON ADENA FAYETTE MEDICAL CENTERCT Head WO Contraston 18-13-3115Nq acute intracranial abnormality. Findings were discussed with ALLIE BURRIS at 2:38 pm on 10/05/2021. [facility] CONSOLIDATEDEXAMINATION: CT OF THE HEAD WITHOUT CONTRAST 10/05/2021 [...] of the visualized skull or soft tissues. [facility] Kel Chin MD - 10/05/2021 EXAMINATION: CT OF THE [...] acute intracranial abnormality. Findings were discussed with ALLIE BURRIS at 2:38 pm on 10/05/2021. 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 [facility] RIS CONSOLIDATEDEXAMINATION: CTA OF THE HEAD AND NECK WITH [...] fluid collection. The kevin-white differentiation is maintained. [facility] Angelito Huber MD - 10/05/2021 EXAMINATION: CTA OF THE [...] of the A2 segment of the left HSARRI, stable. 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 [employer] Work Phone: radiology Study observation (narrative)[employer] Work Phone: cTA HEAD NECK W CONTRASTOrdered By: Angelito Alfonso on 26-05-5071RKW [facility] HEALTHCARE CENTERRegalamos Work Phone: Glucose, Whole Bloodon 85-90-6008Rnbufnu [Mass/Vol]109 mg/nKZiox88 - 100 mg/dLBON [facility] HEALTHCARE CENTERRegalamosInterpretation and review of laboratory resultsAbnormalRIVERSIDE [facility] Pavilion DataUNC HEALTH BL[facility] [employer] Laboratory - Chemistry and Chemistry - challengeon 12-86-9911CMJ/1.73 sq M.predicted MDRD (S/P/Bld) [Vol rate/Area][facility] HOSPITALRegalamosComment on above:Average GFR for 70 or more years old: 75 mL/min/1.73sq m Chronic Kidney Disease: <60 mL/min/1.73sq m Kidney failure: <15 mL/min/1.73sq m eGFR calculated using average adult body mass. Additional eGFR calculator available at: http://www.LightningBuy.iCharts/multiple_crcl_2012.htm Stage 1: Some kidney damage normal GFR Stage 2: Mild kidney damage GFR 60-89 Stage 3: Moderate kidney damage GFR 30-59 Stage 4: Severe kidney damage GFR 15-29 Stage 5: Severe kidney damage GFR <15 ESRD - chronic treatment by dialysis or transplant Magnesiumon 15-34-1756Mqzxdrbzm [Mass/Vol]1.9 mg/dL1.6 - 2.6 mg/dLBON CHOBOLABS HEALTHNo Panel Informationon 91-33-6369QHA CHOBOLABS HEALTHPOCT glucoseon 99-61-9353Yvhyize [Mass/Vol]109 mg/dLBON [employer] Work Phone: Interpretation and review of laboratory resultsNormal BON [employer] Work Phone: QC OK?yBON [employer] Work Phone: bON [employer] Work Phone: Troponinon 75-90-3520Rsapbeen, High Dypsliakxmu67 ng/L 0 - 14 ng/LBON Virdante PharmaceuticalsComment on above: High Sensitivity Troponin values cannot be compared with other Troponin methodologies. Patients with high levels of Biotin oral intake (i.e >5mg/day) may have falsely decreased Troponin levels. Samples collected within 8 hours of biotin intake may require additional information for diagnosis. BON [facility]S HEALTHUrinalysis with Microscopicon 93-18-5572Lefulgrd, UA TRACEAbnormalNoneBON SECOURS Pavilion DataY HEALTHBilirubin UrineNegativeNEGATIVEBON SECOURS Pavilion DataY HEALTHColor, UAYellowYellowBON SECOURS Pavilion DataY HEALTHEpithelial Cells UA0 TO 2BON SEC1000jobboersen.de HEALTHGlucose, UrNegativeNEGATIVEBON [facility]OURS [facility] HEALTHInterpretation and review of laboratory resultsAbnormalBON [facility]RS [facility] HEALTHKetones Ql (U)NegativeNEGATIVEBON SECOURS [employer] HEALTHLeukocyte esterase Test strip Ql (U)SMALLAbnormalNEGATIVEBON SECOURS Pavilion DataY HEALTHNitrite, UrineNegativeNEGATIVEBON [facility] HEALTHpH, UA7.05 - 9B[facility] HEALTHProtein, UANegativeNEGATIVEBON [facility] HEALTHRBC, UANoneBON SECOURS Pavilion DataY HEALTHSpecific Forestdale, UALow1.01 - 1.02BON [facility] HEALTHTurbidity UAClearClearBON SECOURS Pavilion DataY HEALTHUrine HgbNegativeNEGATIVEBON SECOURS Pavilion DataY HEALTHUrobilinogen, UrineNormalNormalBON [facility]RS [facility]CY HEALTHWBC, UA2 TO 5BON [facility]CY HEALTHBON SEC[facility]RS [facility] HEALTHXR CHEST PORTABLEon 45-43-0555Tv acute process. [facility] CONSOLIDATEDEXAMINATION: ONE XRAY VIEW OF THE CHEST 10/05/2021 11:34 am COMPARISON: 06/28/2009 HISTORY: ORDERING SYSTEM PROVIDED HISTORY: Dyspnea TECHNOLOGIST PROVIDED HISTORY: Dyspnea FINDINGS: The lungs are without acute focal process. Stable small calcified granuloma in the left apex. There is no effusion or pneumothorax. The cardiomediastinal silhouette is stable. The osseous structures are stable. [facility] Mikael Robertson MD - 10/05/2021 EXAMINATION: ONE XRAY VIEW OF THE CHEST 10/05/2021 11:34 am COMPARISON: 06/28/2009 HISTORY: ORDERING SYSTEM PROVIDED HISTORY: Dyspnea TECHNOLOGIST PROVIDED HISTORY: Dyspnea FINDINGS: The lungs are without acute focal process. Stable small calcified granuloma in the left apex. There is no effusion or pneumothorax. The cardiomediastinal silhouette is stable. The osseous structures are stable. IMPRESSION: No acute process. [facility] [employer] Work Phone: radiology Study observation (narrative)[facility] [employer] Work Phone: XR CHEST PORTABLEOrdered By: Mikael Valdes on [id number] SECRegalamos Work Phone: BUNon 32-53-3614Zuad nitrogen (BldV) [Mass/Vol]33 mg/dLHigh8 - 23 mg/dLBUNC HEALTH BLUE RIDGE - MORGANTONRegalamosBrain Natriuretic Peptideon 46-37-4042Whftkpfwfuh peptide B (Bld) [Mass/Vol]186 pg/mL<300BON [facility] HEALTHCARE CENTERRegalamosComment on above: An age-independent cutoff point of 300 pg/ml has a 98% negative predictive value excluding acute heart failure. CBCon 57-22-4862Zfhwdnrkbv (Bld) [Volume fraction]37.0 %36.3 - 47.1 %[facility] Virdante PharmaceuticalsHemoglobin (Bld) [Mass/Vol]11.7 g/dLLow11.9 - 15.1 g/dLBUNC HEALTH BLUE RIDGE - MORGANTON1000jobboersen.de [facility] HOSPITALInterpretation and review of laboratory resultsAbnormalBON [facility]RS MERCY HEALTHMCH (RBC) [Entitic mass]29.5 pg25.2 - 33.5 pgBON [facility] HEALTHMCHC (RBC) [Mass/Vol]31.6 g/dL28.4 - 34.8 g/dLBON [facility] HEALTHMCV (RBC) [Entitic vol]93.2 fL82.6 - 102.9 fLBON [facility]OURS [facility]Y HEALTHNRBC Automated 0.00.0 per 100 WBCBON SECOURS MERCY HEALTHPlatelet distribution width (Bld) [Ratio]13.8 %11.8 - 14.4 %[facility] HEALTHPlatelet mean volume (Bld) [Entitic vol]10.2 fL8.1 - 13.5 fLBON [facility]OURS [facility] HEALTHPlatelets (Bld) [#/Vol] 191 10*3/uLBON [facility]Y HEALTHRBC (Bld) [#/Vol]3.97 10*6/uL3.95 - 5.11 m/uL [facility] NORTHRedBrick Health HEALTHWBC (Bld) [#/Vol]5.3 10*3/uLBON [facility]RS [facility] - TRUMBULLBON [facility] HEALTHCreatinineon 14-07-0587Hdycqhsjkj [Mass/Vol]0.69 mg/dL0.50 - 0.90 mg/dLBON [facility]RS MERCY HEALTHGFR >60>60 mL/minBON [facility] HEALTHGFR Non->60>60 mL/minBON SEC[facility] Electrolyte Panelon 48-19-4909Vhuqm gap [Moles/Vol]8 mmol/LLow9 - 17 mmol/LBON [facility]CY HEALTHChloride [Moles/Vol]107 mmol/L98 - 107 mmol/LBON [facility] HEALTHCO2 [Moles/Vol]27 mmol/L20 - 31 mmol/LBON [facility] Potassium [Moles/Vol]4.2 mmol/L3.7 - 5.3 mmol/LBON [facility]CY HEALTHSodium [Moles/Vol]142 mmol/L135 - 144 mmol/LBON [facility]Y [facility]TON HOSPITALLaboratory - Chemistry and Chemistry - challengeon 54-26-5562BBR/1.73 sq M.predicted MDRD (S/P/Bld) [Vol rate/Area][facility]Y Gridpoint SystemsComment on above:Average GFR for 70 or more years old: 75 mL/min/1.73sq m Chronic Kidney Disease: <60 mL/min/1.73sq m Kidney failure: <15 mL/min/1.73sq m eGFR calculated using average adult body mass. Additional eGFR calculator available at: http://www.LightningBuy.iCharts/multiple_crcl_2012.htm Stage 1: Some kidney damage normal GFR Stage 2: Mild kidney damage GFR 60-89 Stage 3: Moderate kidney damage GFR 30-59 Stage 4: Severe kidney damage GFR 15-29 Stage 5: Severe kidney damage GFR <15 ESRD - chronic treatment by dialysis or transplant No Panel Informationon [id number] and review of laboratory results [facility] DUP LOWER EXTREMITY VENOUS LEFTon 72-42-6107Merllx, Unknown Provider - 03/04/2021 [facility] Vascular Lower Extremities DVT Study Procedure Patient Name SPENCER Date of Study 03/03/2021 EVER Mckay Date of 1940 Gender Female Age 80 year(s) Race Room Number Corporate ID [id number] # Patient Acct [id number] # MR # [id number] Fiber Optic Assembly Worker Katie Jackson RVT Interpreting Physician Alissa Marx Referring Referring Physician Alissa Marx Nurse Practitioner Additional Comments REsults were reported to Dr. Marx's office 03/03/2021 @ 2309. Procedure Type of Study: Veins: Lower Extremities [...] DVT Study Measurements Right 2D Measurements + + + + + !Location !Visualized!Compressibility!Thrombosis! + + + + + !Common Femoral !Yes !Yes !None ! + + + + + !Prox Femoral !Yes !Yes !None ! + + + + + !Mid Femoral !Yes !Yes !None ! + + + + + !Dist Femoral !Yes !Yes !None ! + + + + + !Deep Femoral !Yes !Yes !None ! + + + + + !Popliteal !Yes !Yes !None ! + + + + + !Sapheno Femoral Junction !Yes !Yes !None ! + + + + + !PTV !Yes !Yes !None ! + + + + + !Peroneal !Yes !Yes !None ! + + + + + !Gastroc !Yes !Yes !None ! + + + + + !GSV Thigh !Yes !Yes !None ! + + + + + !GSV Knee !No ! ! ! + + + + + !GSV Ankle !No ! ! ! + + + + + !SSV !Yes !Yes !None ! + + + + + Right Doppler Measurements + +---------+------+ + !Location !Signal !Reflux!Reflux (msec) ! + +---------+------+ + !Common Femoral !Pulsatile! ! ! + +---------+------+ + !Prox Femoral !Pulsatile! ! ! + +---------+------+ + !Popliteal !Phasic ! ! ! + +---------+------+ + Play[employer] Phone: vL DUP LOWER EXTREMITY VENOUS LEFTOrdered By: Unknown Result on [id number] Health DUP LOWER EXTREMITY VENOUS LEFTon 03-03-2021 Radiology Study observation (narrative)[employer] Phone: IR ANGIOGRAM CAROTID CEREBRAL BILATERALon [id number] ANGIOGRAM CAROTID CEREBRAL BILATERAL ADDENDUM #1 This [...] was reviewed and reported findings confirmed and evaluatedby Dr. Lomax. Final report electronically signed by Xiomara Lomax M.D. on 12/06/2020 4:35 PM ORIGINAL [...] rotational angiography 5. Right common femoral artery (LIGHT EQUIPMENT OPERATOR) angiogram Neurointerventionalist: Josesito Lomax MD, MS [place]: Pantera Mcdonald MD PhD Ralf Christie MD [...] for TIA, hypertension, diabetes presented today to [facility] for diagnostic cerebral angiogram to assess dysplastic [...] with a micropuncture technique, and a 5 Lao intravascular sheath was placed within the right common femoral artery, establishing arterial access using Seldinger technique. 2000u of heparin IV was administered. A 5 Lao multipurpose catheter was then advanced over a guide wire to the level of the aortic arch. Left CCA technique: The left common carotid artery was selectively catheterized under fluoroscopic guidance and digitalsubtraction angiography images were obtained in biplane projections [...] and distal branches. 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 This was interpreted (morecontent not included)...NormalOhiohealth Southeastern Medical CenterHEMOGLOBIN AND HEMATOCRIT, BLOODOrdered By: King Monteiro on [id number] (Bld) [Volume fraction]30.5 %Low36.3 - 47.1 % [facility]Easy[facility]ay Phone: Hemoglobin.gastrointestinal spec 1 Ql (Stl)9.7 g/dLLow 11.9 - 15.1 g/dLDoctors Hospital Hillcrest Labs Phone: Interpretation and review of laboratory results AbnormalDoctors Hospital Hillcrest Labs Phone: [facility] CenterLinkua Phone: Hgb/Hcton [id number] (Bld) [Volume fraction] 30.5 %Low36.3-47.1MercMendocino Coast District HospitalComment on above:Performed By: #### HH ####[address] [place], [place] [id number] Lab Director: Wellington Back MDHemoglobin (Bld) [Mass/Vol]9.7 g/dLLow11.9-15.1MNaval Hospital OaklandComment on above:Performed By: #### HH ####[address] [place] [address] Lab Director: Wellington Back MDHematocrit (Bld) [Volume fraction]30.2 %Low36.3-47.1MNaval Hospital OaklandComment on above:Performed By: #### HH ####[facility] [address] [place] [address] Lab Director: Wellington Back MD Hemoglobin (Bld) [Mass/Vol]9.4 g/dLLow11.9-15.1MNaval Hospital Oakland Comment on above:Performed By: #### HH ####[facility] [address] [place] [address] Lab Director: Angela Coffmansic Metab w/rfx MGon 09-03-2020(cont.)[facility] Children's HospitalComment on above:Result Comment: Average GFR for 70 or more years old: 75 mL/min/1.73sq m Chronic Kidney Disease: <60 mL/min/1.73sq m Kidney failure: <15 mL/min/1.73sq m eGFR calculated using average adult body mass. Additional eGFR calculator available at: http://www.LightningBuy.iCharts/multiple_crcl_2012.htmPerformed By: #### RACHEL MAYES #### [facility] [place] [address] Phlebotomy Technician: Wellington Back MDAnion gap [Moles/Vol]12 mmol/LNormal9-17Ohiohealth Southeastern Medical CenterComment on above:Performed By: #### GERBER BMPX #### [facility] [address] [place] [address] Phlebotomy Technician: MARCO Coffmanalcium [Mass/Vol]8.2 mg/dLLow8.6-10.4Ohiohealth Southeastern Medical CenterComment on above:Performed By: #### GERBER BMPX #### [facility] [address] [place] [address] Phlebotomy Technician: Wellington Madoff, MDChloride [Moles/Vol]106 mmol/YGfiymi28-700XbwjlOhiohealth Southeastern Medical CenterComment on above:Performed By: #### GERBER, BMPX #### [address] [address] Phlebotomy Technician: Wellington Back MDCO2 [Moles/Vol]21 mmol/SKlmwbx97-85YgqkrOhiohealth Southeastern Medical CenterComment on above:Performed By: #### GERBER, BMPX #### [place] [address] Phlebotomy Technician: MARCO Coffmanreatinine [Mass/Vol]0.50 mg/dLNormal0.50-0.90 [facility] Sout[facility] Medical CenterComment on above:Performed By: #### GERBER, BMPX #### [place] [address] Phlebotomy Technician: Wellington Back MDGFR, Amer>60Normal>60Ohio[facility] Southeastern Medical CenterComment on above:Performed By: #### GERBER, BMPX #### [place] [address] Phlebotomy Technician: Wellington Back MDGFR,non Amer>60Normal>60[facility] Sout[facility] Medical CenterComment on above:Performed By: #### GERBER, BMPX #### [place] [address] Phlebotomy Technician: Wellington Back MDGlucose [Mass/Vol]94 mg/xQDjtlnd98-96KfeayNaval Hospital OaklandComment on above:Performed By: #### GERBER, BMPX #### [address] [address] Phlebotomy Technician: Wellington Back MDPotassium [Moles/Vol]4.7 mmol/LNormal3.7-5.3 [facility] Medical CenterComment on above:Result Comment: SPECIMEN SLIGHTLY HEMOLYZED, RESULTS MAY BE ADVERSELY AFFECTED.Performed By: #### REJEC, BMPX #### [facility] [address] [place] [address] Phlebotomy Technician: KAREN Coffmanodium [Moles/Vol]139 mmol/HSshyxg878-967VbfstOhiohealth Southeastern Medical CenterComment on above:Performed By: #### REJEC, BMPX #### [facility] [address] [place] [address] Phlebotomy Technician: Wellington Back MDUrea nitrogen [Mass/Vol]12 mg/dLNormal8-23Ohio[facility] Southeastern Medical CenterComment on above:Performed By: #### REJEC, BMPX #### [facility] [address] [place] [address] Phlebotomy Technician: Wellington Back MDBUN/CRE RatioNOT REPORTEDNormal9-20[facility] Medical CenterComment on above:Performed By: #### REJEC, BMPX #### [facility] [address] [place] [address] Phlebotomy Technician: KAREN Coffmantaging:NOT REPORTEDNormalOhiohealth Southeastern Medical CenterComment on above:Performed By: #### REJEC, BMPX #### [facility] [address] [place] [address] Phlebotomy Technician: Wellington Back MD(cont.)NormalOhiohealth Southeastern Medical Center Comment on above:Result Comment: Average GFR for 70 or more years old: 75 mL/min/1.73sq m Chronic Kidney Disease: <60 mL/min/1.73sq m Kidney failure: <15 mL/min/1.73sq m eGFR calculated using average adult body mass. Additional eGFR calculator available at: http://www.LightningBuy.iCharts/multiple_crcl_2012.htmPerformed By: #### BMPX, PROL, TSHX, LIPR #### [facility] [address] [place] [address] Phlebotomy Technician: Wellington Back MDAnion gap [Moles/Vol]16 mmol/LNormal9-17[facility] Medical CenterComment on above:Performed By: #### BMPX, PROL, TSHX, LIPR #### [address] [address] Phlebotomy Technician: Wellington Back MDCalcium [Mass/Vol]8.7 mg/dLNormal8.6-10.4[facility] Medical CenterComment on above:Performed By: #### BMPX, PROL, TSHX, LIPR #### [address] [address] Phlebotomy Technician: Wellington Back MDChloride [Moles/Vol]100 mmol/MGkjaay12-179ExwjgOhiohealth Southeastern Medical CenterComment on above:Performed By: #### BMPX, PROL, TSHX, LIPR #### [address] [address] Phlebotomy Technician: Wellington Back MDCO2 [Moles/Vol]20 mmol/DSvsaqd15-61PersoOhiohealth Southeastern Medical CenterComment on above:Performed By: #### BMPX, PROL, TSHX, LIPR #### [address] [address] Phlebotomy Technician: MARCO Coffmanreatinine [Mass/Vol]0.70 mg/dLNormal0.50-0.90 [facility] Medical CenterComment on above:Performed By: #### BMPX, PROL, TSHX, LIPR #### [facility] [address] [place] [address] Phlebotomy Technician: BAR Coffman African Amer>60Normal>60[facility] Medical CenterComment on above:Performed By: #### BMPX, PROL, TSHX, LIPR #### [facility] [address] [place] [address] Phlebotomy Technician: Wellington Back MDGFR,non Amer>60Normal>60[facility] Medical CenterComment on above:Performed By: #### BMPX, PROL, TSHX, LIPR #### [facility] [address] [place] [address] Phlebotomy Technician: Wellington Back MDGlucose [Mass/Vol]109 mg/wJSgqz78-97NoxgeNaval Hospital OaklandComment on above:Performed By: #### BMPX, PROL, TSHX, LIPR #### [facility] [address] [place] [address] Phlebotomy Technician: TAYA Coffmanotassium [Moles/Vol]4.5 mmol/LNormal3.7-5.3 [facility] CenterComment on above:Performed By: #### BMPX, PROL, TSHX, LIPR #### [facility] [address] [place] [address] Phlebotomy Technician: KAREN Coffamnodium [Moles/Vol]136 mmol/AVgqymj117-531JikpgOhiohealth Southeastern Medical CenterComment on above:Performed By: #### BMPX, PROL, TSHX, LIPR #### [facility] [address] [place] [address] Phlebotomy Technician: Wellington Back MDUrea nitrogen [Mass/Vol]19 mg/dLNormal8-23[facility] Medical CenterComment on above:Performed By: #### BMPX, PROL, TSHX, LIPR #### [facility] [address] [place] [address] Phlebotomy Technician: Wellington Back MDBajackson purchase medical center Metabolic Panel w/ Reflex to MGOrdered By: Ralf Christie on 98-66-3820Dxjnd gap [Moles/Vol]12 mmol/L9 - 17 mmol/LMercy Health Work Phone: calcium [Mass/Vol]8.2 mg/dLLow8.6 - 10.4 mg/dLMercy Health St. Rita'S Medical CenterLinkua Phone: chloride [Moles/Vol]106 mmol/L98 - 107 mmol/LMselect medical specialty hospital [facility]ully [facility] Phone: cO2 [Moles/Vol]21 mmol/L20 - 31 mmol/LMercy [facility] Phone: creatinine [Mass/Vol]0.5 mg/dL0.50 - 0.90 mg/dLMercy Health St. Rita'S Medical CenterLinkua Phone: GFR >60>60 mL/minMercy Health St. Rita'S Medical CenterLinkua Phone: GFR Non->60>60 mL/minMercy Health St. Rita'S Medical CenterLinkua Phone: GFR/1.73 sq M.predicted MDRD (S/P/Bld) [Vol rate/Area] [facility]Easy[facility] Phone: comment on above:Average GFR for 70 or more years old: 75 mL/min/1.73sq m Chronic Kidney Disease: <60 mL/min/1.73sq m Kidney failure: <15 mL/min/1.73sq m eGFR calculated using average adult body mass. Additional eGFR calculator available at: http://www.M-DAQ/multiple_crcl_2012.htm GFR/1.73 sq M.predicted MDRD (S/P/Bld) [Vol rate/Area]NOT REPORTEDMercy Health St. Rita'S Medical CenterLinkua Phone: Glucose [Mass/Vol]94 mg/dL70 - 99 mg/dLMercy Health St. Rita'S Medical CenterLinkua Phone: Interpretation and review of laboratory results AbnormalMercy Health St. Rita'S Medical CenterLinkua Phone: potassium [Moles/Vol]4.7 mmol/L3.7 - 5.3 mmol/LMselect medical specialty hospital - [facility]ully [facility] Phone: comment on above:SPECIMEN SLIGHTLY HEMOLYZED, RESULTS MAY BE ADVERSELY AFFECTED.Sodium [Moles/Vol]139 mmol/L135 - 144 mmol/LMercy [facility] Phone: Urea nitrogen (BldV) [Mass/Vol]12 mg/dL8 - 23 mg/dL [employer] Phone: Urea nitrogen/Creatinine (Bld) [Mass ratio]NOT REPORTEDMercy Health St. Rita'S Medical CenterLinkua Phone: [facility] CenterLinkua Phone: basic Metabolic Panel w/ Reflex to MGOrdered By: Suraj Peters on [id number] gap [Moles/Vol]16 mmol/L9 - 17 mmol/LMProteus Agilityy [facility] Phone: calcium [Mass/Vol]8.7 mg/dL8.6 - 10.4 mg/dLMercy Health St. Rita'S Medical CenterLinkua Phone: chloride [Moles/Vol]100 mmol/L98 - 107 mmol/LMIO.com Phone: cO2 [Moles/Vol]20 mmol/L20 - 31 mmol/LMIO.com Phone: creatinine [Mass/Vol]0.7 mg/dL0.50 - 0.90 mg/dLMercy Health St. Rita'S Medical CenterLinkua Phone: GFR >60>60 mL/minMercy Health St. Rita'S Medical CenterLinkua Phone: GFR Non->60>60 mL/minMercy Health St. Rita'S Medical CenterLinkua Phone: GFR/1.73 sq M.predicted MDRD (S/P/Bld) [Vol rate/Area] [employer] Phone: comment on above:Average GFR for 70 or more years old: 75 mL/min/1.73sq m Chronic Kidney Disease: <60 mL/min/1.73sq m Kidney failure: <15 mL/min/1.73sq m eGFR calculated using average adult body mass. Additional eGFR calculator available at: http://www.LightningBuy.iCharts/multiple_crcl_2012.htm GFR/1.73 sq M.predicted MDRD (S/P/Bld) [Vol rate/Area]NOT REPORTEDMercy Health St. Rita'S Medical CenterLinkua Phone: Glucose [Mass/Vol]109 mg/uNPyll13 - 99 mg/dLMercy Health St. Rita'S Medical CenterLinkua Phone: Interpretation and review of laboratory results AbnormalMercy Health St. Rita'S Medical CenterLinkua Phone: potassium [Moles/Vol]4.5 mmol/L3.7 - 5.3 mmol/LMercy [facility]Will[facility] Work Phone: sodium [Moles/Vol]136 mmol/L135 - 144 mmol/LMselect medical specialty hospital - [facility]ully Pl[facility]Will[facility] Work Phone: Urea nitrogen (BldV) [Mass/Vol]19 mg/dL8 - 23 mg/dL [employer] Phone: Urea nitrogen/Creatinine (Bld) [Mass ratio]NOT REPORTEDMercy Health St. Rita'S Medical CenterLinkua Phone: cBC WITH AUTO DIFFERENTIALOrdered By: King Monteiro on [phone] Eos #0.05[facility] Medical CenterLinkua Phone: absolute Immature Granulocyte0.03[facility] Medical CenterLinkua Phone: absolute Lymph #1.01LowPlayDo Phone: absolute Crisp #1.26HighMercy Health St. Rita'S Medical CenterLinkua Phone: basophils (Bld) [#/Vol]10*3/uLMercy Health St. Rita'S Medical CenterLinkua Phone: basophils/100 WBC (Bld)0 %0 - 2 %[employer]Do Phone: differential TypeNOT REPORTEDPlayDo Phone: eosinophils/100 WBC (Bld)1 %1 - 4 %[employer] Phone: Hematocrit (Bld) [Volume fraction]30.2 %Low36.3 - 47.1 %[employer] Phone: Hemoglobin.gastrointestinal spec 1 Ql (Stl)9.8 g/dLLow 11.9 - 15.1 g/dLDoctors Hospital [facility] Phone: Immature granulocytes/100 WBC (Bld)0 %0[facility] Phone: Interpretation and review of laboratory results AbnormalDoctors Hospital [facility] Phone: lymphocytes/100 WBC (Bld)14 %Low24 - 43 %[facility] Phone: MCH (RBC) [Entitic mass]29.7 pg25.2 - 33.5 pgDoctors Hospital Hillcrest Labs Phone: MCHC (RBC) [Mass/Vol]32.5 g/dL28.4 - 34.8 g/dLDoctors Hospital Hillcre[facility] Phone: MCV (RBC) [Entitic vol]91.5 fL82.6 - 102.[address] Rita'S Medical CenterLinkua Phone: Monocytes/100 WBC (Bld)17 %High3 - 12 %[facility] Phone: NRBC Automated0.00.0 [address] Rita'S Medical CenterLinkua Phone: platelet distribution width (Bld) [Ratio]14.8 %High 11.8 - 14.4 %[facility] Phone: platelet mean volume (Bld) [Entitic vol]NOT REPORTED 8.1 - 13.[address] Rita'S Medical CenterLinkua Phone: platelets (Bld) [#/Vol]See Reflexed IPF ResultDoctors Hospital Hillcrest Labs Phone: rBC (Bld) [#/Vol]3.30 10*6/uLLow3.95 - 5.11 m/uLMercy Health St. Rita'S Medical CenterLinkua Phone: RBC (Bld) [#/Vol]ANISOCYTOSIS PRESENTDoctors Hospital [facility] Phone: Segmented neutrophils/100 WBC (Bld)67 %High36 - 65 % [facility] Phone: Segs Absolute4.86[facility] Phone: WBC (Bld) [#/Vol]7.2 10*3/uLWhite Hospital Work Phone: WBC (Bld) [#/Vol]NOT REPORTEDDoctors Hospital [facility] Phone: [facility] Phone: cBC with Diffon [id number]. Basophil<0.03Normal 0.00-0.20[facility] Medical CenterComment on above:Performed By: #### CDP, IPF ####[place], [place] [address])[phone] Director: MDAbs. AugustusImm.Granulocyte0.03 k/uLNormal0.00-0.30[facility] Medical CenterComment on above:Performed By: #### EVELYN, IPF ####[facility] [address] [place], [place] [address])[phone] Director: Herber Coffman.Neutrophil (Seg)4.86 k/uLNormal1.50-8.10[facility] Medical CenterComment on above:Performed By: #### CDP, IPF ####[place] [address] Lab Director: Wellington Back MD Basophils/100 WBC (Bld)0 %Normal0-2[facility] HospitalComment on above:Performed By: #### CDP, IPF ####[facility] [address] [place], [place] [address])[phone] Director: Wellington Back MDEosinophils (Bld) [#/Vol] 0.05 10*3/uLNormal0.00-0.44[facility] CenterComment on above: Performed By: #### CDP, IPF ####[facility] [address] [place], [place] [phone] Director: Wellington Back MDEosinophils/100 WBC (Bld)1 % Normal1-4[facility] Medical CenterComment on above:Performed By: #### CDP, IPF ####[facility] [address] [place], [place] [address])[phone] Director: Wellington Back MDErythrocyte distribution width (RBC) [Ratio]14.8 % High11.8-14.4[facility] Medical CenterComment on above:Performed By: #### CDP, IPF ####[facility] Eesxhwe[address] [place], [place] [address])[phone] Director: Wellington Back MDHematocrit (Bld) [Volume fraction]30.2 %Low36.3-47.1 [facility] CenterComment on above:Performed By: #### CDP, IPF ####[facility] Lulx[address]ysiqca[address] [place], [place] [address])[phone] Director: Wellington Back MDHemoglobin (Bld) [Mass/Vol]9.8 g/dLLow11.9-15.1MNaval Hospital OaklandComment on above:Performed By: #### CDP, IPF ####[facility] [address] [place], [place] [address])[phone] Director: Wellington Back MDImmature granulocytes/100 WBC (Bld)0 %Ulpwln2AgiirOhiohealth Southeastern Medical CenterComment on above:Performed By: #### CDP, IPF ####[facility] [address] [place], [place] [address])[phone] Director: Wellington Back MD Lymphocytes (Bld) [#/Vol]1.01 10*3/uLLow1.10-3.70[facility] Medical CenterComment on above:Performed By: #### CDP, IPF ####[facility] [address] [place], [place] [address], [place] [phone] Director: Wellington Back MD Lymphocytes/100 WBC (Bld)14 %Ymn94-69YydkoOhiohealth Southeastern Medical CenterComment on above:Performed By: #### CDP, IPF ####[address] [address] Lab Director: LIANA CoffmanCH (RBC) [Entitic mass] 29.7 raMeqeqe77.2-33.5[facility] Medical CenterComment on above:Performed By: #### CDP, IPF ####[address] [phone] Director: LIANA CoffmanCHC (RBC) [Mass/Vol]32.5 g/dLNormal 28.4-34.8[facility] CenterComment on above:Performed By: #### CDP, IPF ####[address] [address] Lab Director: LIANA CoffmanCV (RBC) [Entitic vol]91.5 aCKfptpw55.6-102.9[facility] Medical CenterComment on above:Performed By: #### CDP, IPF ####[address] [address] Lab Director: LIANA Coffmanonocytes (Bld) [#/Vol]1.26 10*3/uLHigh0.10-1.20[facility] Medical CenterComment on above:Performed By: #### CDP, IPF ####[facility] Got[address] [place] [address] Lab Director: LIANA Coffmanonocytes/100 WBC (Bld)17 %High3-12[facility] Comment on above:Performed By: #### CDP, IPF ####[address] [address] Lab Director: Crescencio Coffmanutrophil (Seg) 67 %Xgua36-37CvzlhOhiohealth Southeastern Medical CenterComment on above:Performed By: #### CDP, IPF ####[facility] [address] [place] [address] Lab Director: Wellington Back MDNRBC Automated0.0 per 100 WBCNormal0.0[facility] Medical CenterComment on above:Performed By: #### CDP, IPF ####[facility] [address] [place] [address] Lab Director: Nadja Coffmantelet CountSee Reflexed IPF IkaeelUvszeg541-472PtzikOhiohealth Southeastern Medical CenterComment on above:Performed By: #### EVELYN, IPF ####[facility] [address] [place] [address] Lab Director: URSULA CoffmanBC (Bld) [#/Vol]3.30 10*6/uLLow3.95-5.11[facility] Medical CenterComment on above:Performed By: #### EVELYN, IPF ####[facility] [address] [place] [address] Lab Director: SAMMI Coffman morphology finding Nom (Bld)ANISOCYTOSIS [facility] Baker CItyComment on above:Performed By: #### EVELYN, IPF ####[facility] [address] [place] [address] Lab Director: Wellington Back MDWBC (Bld) [#/Vol]7.2 10*3/uLNormal3.5-11.3MNaval Hospital OaklandComment on above:Performed By: #### CDP, IPF ####[facility] [address] [place] [address] Lab Director: Marichuy Coffman Diff PerformedNOT REPORTEDAkron Children's HospitalComment on above:Performed By: #### CDP, IPF ####[facility] [address] [place] [phone] Director: LIANA CoffmanPVNOT REPORTEDNormal8.1-13.5[facility] Medical CenterComment on above:Performed By: #### CDP, IPF ####[facility] [address] [place] [address] Lab Director: STEFAN Coffman MorphologyNOT REPORTEDNormalOhiohealth Southeastern Medical Center Comment on above:Performed By: #### CDP, IPF ####[facility] [address] [place] [address] lab Director: SANTIAGO Coffman with Diff Ordered By: King Monteiro on 80-34-2021Gtxjgynv EstimateNOT REPORTEDFirstHealth [facility] Work Phone: comment on above:Performed By: #### CDP, IPF ####[facility] [address] [place] [address] lab Director: Wellington Back MDCT HEAD WO CONTRASTon [id number] HEAD WO CONTRASTEXAMINATION: CT OF THE HEAD WITHOUT CONTRAST 09/03/2020 [...] Signed by: Aguilar Alba MD 09/03/20 Final resultNoCleveland Clinic Hillcrest HospitalCT HEAD WO CONTRASTOrdered By: Jayme Morton on 03-32-1750Gi acute intracranial hemorrhage identified.PlayDo Phone: eXAMINATION: CT OF THE HEAD WITHOUT CONTRAST 09/03/2020 [...] protocol TECHNOLOGIST PROVIDED HISTORY: Follow-up 24-hour CT headpost TPA protocol Reason for Exam: Follow-up 24-hour CT head post TPA protocol FINDINGS: BRAIN/VENTR ICLES: There is no acute intracranial hemorrhage, mass effect or midline shift. No abnormal extra-axial fluid collection. The brain is unchanged in appearance. ORBITS: The visualized portion of the orbits demonstrate no acute abnormality. SINUSES: The visualized paranasal sinuses and mastoid air cells demonstrate no acute abnormality. SOFT TISSUES/SKULL: No acute abnormality of the visualized skull or soft tissues.PlayDo Phone: edi, [facility] Incoming Radiant Results From Freebeepay/Pacs - 09/03/2020 1:06 PM EDT EXAMINATION: CT [...] tissues. IMPRESSION: No acute intracranial hemorrhage identified. PlayDo Phone: [facility] CenterLinkua Phone: HEMOGLOBIN AND HEMATOCRIT, BLOODOrdered By: King Monteiro on 65-36-7983Uocoaaampf (Bld) [Volume fraction]30.2 %Low36.3 - 47.1 % [facility]Easy[facility] Phone: Hemoglobin.gastrointestinal spec 1 Ql (Stl)9.4 g/dLLow 11.9 - 15.1 g/dLMercy Health St. Rita'S Medical CenterLinkua Phone: Interpretation and review of laboratory results AbnormalMercy Health St. Rita'S Medical CenterLinkua Phone: [facility] CenterLinkua Phone: Hemoglobin A1Con 56-43-2651Ztztffs [Mass/Vol]131 mg/dL NormalOhiohealth Southeastern Medical CenterComment on above:Result Comment: The ADA and AACC recommend providing the estimated average glucose result to permit better patient understanding of their HBA1c result.Performed By: #### STROKE #### [facility] [address] [facility] [place] [address] Phlebotomy Technician: Malik Hart DO [facility] HospitalMevvy [address] [place], [place] [phone] Phlebotomy Technician: Wellington Back MD #### GLYHGB #### [facility] [address] [place] [address] Phlebotomy Technician: Wellington Back MDHbA1c (Bld) [Mass fraction]6.2 %High4.0-6.0[facility] Medical CenterComment on above:Performed By: #### STROKE #### [facility] [address] [facility] [place] [address] Phlebotomy Technician: Malik Hart DO [facility] [address] [place], [place] [phone] Phlebotomy Technician: Wellington Back MD #### GLYHGB #### [facility] [address] [place], [place] [phone] Phlebotomy Technician: Wellington Back MDHemoglobin Z4GLyxyrjm By: Mikael Metz on 22-28-5998Tcfrqjl [Mass/Vol]131 mg/dLMercy Health St. Rita'S Medical CenterLinkua Phone: comment on above:The ADA and AACC recommend providing the estimated average glucose result to permit better patient understanding of their HBA1c result. HbA1c (Bld) [Mass fraction]6.2 %High4.0 - 6.0 %[employer]Do Phone: Interpretation and review of laboratory results AbnormalMercy Health St. Rita'S Medical CenterLinkua Phone: [facility] CenterLinkua Phone: Immature Platelet FractionOrdered By: King Monteiro on 10-07-5701Vveezvmx, FluorescencePlatelet clumps present, count appears adequate.PlayDo Phone: comment on above:ORDERED BY LABPlatelet, Immature FractionNOT REPORTED1.1 - 10.3 %[employer]Do Phone: [facility] CenterLinkua Phone: lipid Profileon 15-32-7290Pwsbnneihyp [Mass/Vol]123 mg/dLNormal<200Ohio[facility] Medical CenterComment on above:Result Comment: Cholesterol Guidelines: <200 Desirable 200-240 Borderline >240 UndesirablePerformed By: #### BMPX, PROL, TSHX, LIPR #### [facility] [address] [place] [address] Phlebotomy Technician: MARCO Coffmanholesterol in HDL [Mass/Vol]69 mg/dLNormal>40 [facility] Medical CenterComment on above:Result Comment: HDL Guidelines: <40 Undesirable 40-59 Borderline >59 DesirablePerformed By: #### BMPX, PROL, TSHX, LIPR #### [facility] [address] [place] [address] Phlebotomy Technician: MARCO Coffmanholesterol in LDL [Mass/Vol]40 mg/dLNormal0-130 [facility] Medical CenterComment on above:Result Comment: LDL Guidelines: <100 Desirable 100-129 Near to/above Desirable 130-159 Borderline >159 Undesirable Direct (measured) LDL and calculated LDL are not interchangeable tests.Performed By: #### BMPX, PROL, TSHX, LIPR #### [facility] [address] [place], [place] [id number] Phlebotomy Technician: Ezequiel Coffman.total/Cholesterol in HDL [Mass ratio]1.8 {ratio}Normal<5Ohiohealth Southeastern Medical CenterComment on above: Performed By: #### BMPX, PROL, TSHX, LIPR #### [facility] [address] [place] [address] Phlebotomy Technician: Wellington Back MDTriglyceride [Mass/Vol]70 mg/dLNormal<150Ohiohealth Southeastern Medical CenterComment on above:Result Comment: Triglyceride Guidelines: <150 Desirable 150-199 Borderline 200-499 High >499 Very high Based on AHA Guidelines for fasting triglyceride, November 2011.Performed By: #### BMPX, PROL, TSHX, LIPR #### [facility] [address] [place] [address] Phlebotomy Technician: Wellington Back MDLipid panel - fastingOrdered By: Suraj Peters on 50-25-1358Yvorewpgikj [Mass/Vol]123 mg/dL<200[facility] Work Phone: Comment on above: Cholesterol Guidelines: <200 Desirable 200-240 Borderline >240 Undesirable Cholesterol in HDL [Mass/Vol]69 mg/dL>40[facility] Work Phone: Comment on above: HDL Guidelines: <40 Undesirable 40-59 Borderline >59 Desirable Cholesterol in LDL [Mass/Vol]40 mg/dL0 - 130 mg/dLMercy Health St. Rita'S Medical CenterLinkua Phone: comment on above: LDL Guidelines: <100 Desirable 100-129 Near to/above Desirable 130-159 Borderline >159 Undesirable Direct (measured) LDL and calculated LDL are not interchangeable tests. Cholesterol in VLDL [Mass/Vol]NOT REPORTED1 - 30 mg/dLMercy Health St. Rita'S Medical CenterLinkua Phone: cholesterol.total/Cholesterol in HDL [Mass ratio]1.8 {ratio}<5[facility] Phone: Triglyceride [Mass/Vol]70 mg/dL<150[facility] Phone: comment on above: Triglyceride Guidelines: <150 Desirable 150-199 Borderline 200-499 High >499 Very high Based on AHA Guidelines for fasting triglyceride, November 2011. [employer] Phone: No Panel InformationOrdered By: Suraj Peters on [id number] Phone: pLT, Immature Fract.on 73-47-5937Zfsfgytf, Fluoresc. Platelet clumps present, count appears adequate.Tenjlj692-993FionzOhiohealth Southeastern Medical CenterComment on above:Result Comment: ORDERED BY LABPerformed By: #### EVELYN, IPF ####[facility] [id number] Lab Director: RAYNA Coffman, Immature Fract.NOT REPORTEDNormal1.1-10.3[facility] Mental HospitalComment on above:Performed By: #### EVELYN, IPF ####[facility] [place] [address] Lab Director: TAYA CoffmanROLACTINOrdered By: Suraj Peters on 65-09-5965Rlmaqhrxp73.33 ug/L4.79 - 23.30 ug/LMselect [facility] specialty hospital [facility] Phone: comment on above:The presence of macroprolactin may cause interference in female patients with various endocrinological diseases or during . Prolactinon 85-22-5829Yzzekdbpn72.33 ug/LNormal4.79-23.30Ohiohealth Southeastern Medical CenterComment on above:Result Comment: The presence of macroprolactin may cause interference in female patients with various endocrinological diseases or during .Performed By: #### BMPX, PROL, TSHX, LIPR #### [facility] [address] [place] [address] [phone] Phlebotomy Technician: MIGUE Coffman REJECTIONOrdered By: Ralf Christie on 09-03-2020-NOT REPORTEDDoctors Hospital [facility] Work Phone: Ordered TestCDPMregional medical center [facility] Phone: reason for RejectionUnable to perform testing: Specimen clotted.[facility] Phone: specimen source Nom (Unsp spec).[facility] Phone: [facility] Medical CenterLinkua Phone: specimen Rejectionon [id number] for rejection Unable to perform testing: Specimen clotted.NormalOhiohealth Southeastern Medical CenterComment on above:Performed By: #### REJEC, BMPX #### [facility] [address] [place] [address] [phone] Phlebotomy Technician: Chrissie Coffman of sample.BLOODNoCleveland Clinic Hillcrest HospitalComment on above:Performed By: #### REJEC, BMPX #### [facility] [address] [place] [address] [phone] Phlebotomy Technician: Wellington Back MDTest orderedCDPNMemorial Health System Marietta Memorial HospitalComment on above:Performed By: #### REJEC, BMPX #### [facility] [address] [place] [address] [phone] Phlebotomy Technician: Wellington Back MD-----NOT REPORTEDNormPike Community HospitalComment on above:Performed By: #### REJEC, BMPX #### [address] [address] Phlebotomy Technician: Carroll Coffman 09-03-2020% CKMB3.6 %High0.0-3.0 [facility] Southeastern Medical CenterComment on above:Performed By: #### STROKE #### [facility] [address] [place] [address] Phlebotomy Technician: Malik Hart DO [address] [address] Phlebotomy Technician: Wellington Back MD #### GLYHGB #### [address] [address] Phlebotomy Technician: MAYCO CoffmanMB,Quantitative2.9 ng/mLNormal<5.4Ohiohealth Southeastern Medical CenterComment on above:Performed By: #### STROKE #### [facility] [address] [place] [address] Phlebotomy Technician: Malik Hart DO [address] [address] Phlebotomy Technician: Wellington Back MD #### GLYHGB #### [address] [address] Phlebotomy Technician: HITESH Coffman-InterpretationNORMAL ISOENZYME PATTERN NormalOhiohealth Southeastern Medical CenterComment on above:Performed By: #### STROKE #### [facility] [address] [place] [address] Phlebotomy Technician: Malik Hart DO [address] [address] Phlebotomy Technician: Wellington Back MD #### GLYHGB #### [address] [address] Phlebotomy Technician: MADHAVI Coffman w/reflex to FT4on [id number] Qn0.99 m[IU]/LNormal0.30-5.00Ohiohealth Southeastern Medical CenterComment on above:Performed By: #### BMPX, PROL, TSHX, LIPR #### [facility] [address] [place] [address] Phlebotomy Technician: MADHAVI Coffman with ReflexOrdered By: Suraj Peters on 83-51-8098UYY Qn0.99 m[IU]/LMercy Health Work Phone: cHLORIDE (POC)Ordered By: Xiomara Lomax on 09-02-2020 Chloride [Moles/Vol]103 mmol/L98 - 107 mmol/LMercy Health Work Phone: cTA HEAD NECK W CONTRASTon 20-66-7469IGO HEAD NECK W CONTRASTEXAMINATION: CTA OF THE HEAD AND NECK WITH [...] Signed by: Aaron London MD 09/02/20 Final resultNormalOhiohealth Southeastern Medical CenterCTA HEAD NECK W CONTRAST Ordered By: Pantera Mcdonald on 93-92-9410Eqdghzocdr 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 Multiplanar reformatted images are provided for review. MIP images are provided for review. Stenosis of the internal carotid arteries measured using NASCET criteria. Dose modulation, iterative reconstruction, and/or weight basedadjustment of the mA/kV was utilized to reduce [...] the salivary and thyroid glands. BONES: No acuteosseous abnormality. CTA HEAD: ANTERIOR CIRCULATION: There is [...] extra-axial fluid collection. 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 [employer] Phone: [employer] Phone: creatinine W/GFR Point of CareOrdered By: Xiomara Lomax on 50-32-0906Ziubvdohgc [Mass/Vol]0.66 mg/dL0.51 - 1.19 mg/dLPlayDo Phone: GFR Non->60>60 mL/minPlayDo Phone: GFR/1.73 sq M.predicted MDRD (S/P/Bld) [Vol rate/Area] mL/min/{1.73_m2}>60 mL/minMerLinkua Phone: GFR/1.73 sq M.predicted MDRD (S/P/Bld) [Vol rate/Area] [employer] Phone: comment on above:Average GFR for 70 or more years old: 75 mL/min/1.73sq m Chronic Kidney Disease: <60 mL/min/1.73sq m Kidney failure: <15 mL/min/1.73sq m eGFR calculated using average adult body mass. Additional eGFR calculator available at: http://www.M-DAQ/multiple_crcl_2012.htm EEG video monitoringOrdered By: Suraj Peters on 47-75-2618SmvzKvng Mcfadden MD 09/02/2020 6:05 PM VIDEO-EEG MONITORING REPORT Patient Name: Ever Palmer Dates recorded: 09/02/2020 Electroencephalographer: Kvng Mcfadden MD CLINICAL DETAILS: This EEG was performed on this 79 y.o.yo female admitted with aphasia MEDICATIONS: Current Facility-Administered Medications: [COMPLETED] alteplase (ACTIVASE) injection 6.3 mg, 0.09 mg/kg, Intravenous, Once, 6.3 mg at 09/02/20 1200 FOLLOWED BY [COMPLETED] alteplase (ACTIVASE) injection 56.6 mg, 0.81 mg/kg, Intravenous, Once, Stopped at 09/02/20 1322 FOLLOWED BY 0.9 % sodium chloride bolus, 50mL, Intravenous, Once, Vernon Patino MD sodium chloride flush 0.9 % injection 5-40 mL, 5-40 mL, Intravenous, 2 times per day, Vernon Patino MD sodium chloride flush 0.9 % injection 5-40 mL, 5-40 mL, Intravenous, PRN, Vernon Patino MD 0.9 % sodium chloride infusion, 25 mL, Intravenous, PRN, Vernon Patino MD dextrose 50 % IV solution, 12.5 g, Intravenous, Once PRN, Edel Patino MD [Held by provider] amLODIPine (NORVASC) tablet 5 mg, 5 mg, Oral, Daily, Suraj Peters MD [Held by provider] aspirin EC tablet 81 mg, 81 mg, Oral, Daily, Suraj Peters MD atorvastatin (LIP ITOR) tablet 40 mg, 40 mg, Oral, Nightly, [...] 0.9 % sodium chloride infusion, 25 mL, In travenous, PRN, Suraj Peters MD ondansetron (ZOFRAN-ODT) disintegrating [...] PRN, Suraj Peters MD Facility-Administered Medications Ordered inOther Encounters: acetaminophen (TYLENOL) tablet 650 mg, 650 [...] Intravenous, Q6H PRN, Ralf Christie MD polyethylene glycol(GLYCOLAX) packet 17 g, 17 g, Oral, Daily PRN, Ralf Christie MD acetaminophen (TYLENOL) tablet 650 mg, 650 mg, Oral, Q6H PRN OR acetaminophen (TYLENOL) suppository 650 mg, 650 mg, Rectal, Q6H PRN, Ralf Christie MD TECHNICAL DETAILS: Continuous video-EEG monitoring was performed with 27 surface scalp electrodes placed according to the International 10-20 electrode placement system, usinga 32-channel Farmia headbox. All EEG and video information was acquired digitally, including the useof automated spike and seizure detection software to detect epileptiform activity. An event button was also available to be depressed during clinical events. RESULTS: In (more content not included)...[facility] Phone: [facility] CenterLinkua Phone: Hemoglobin and hematocrit, bloodOrdered By: Xiomara Lomax on 46-17-9614Qhmnnwgpae (Bld) [Volume fraction]35 %Low36 - 46 %[employer] Phone: Hemoglobin (Bld) [Mass/Vol]11.8 g/dLLow12.0 - 16.0 g/dLMercy Health St. Rita'S Medical CenterLinkua Phone: Interpretation and review of laboratory results AbnormalMercy Health St. Rita'S Medical CenterLinkua Phone: lipid Profileon [id number],VLDLNOT REPORTED Normal1-30Ohio[facility] Southeastern Medical CenterComment on above:Performed By: #### BMPX, PROL, TSHX, LIPR #### [facility] [address] [place] [address] Phlebotomy Technician: CASTILLO Coffman BRAINon [id number] LIMITED BRAIN EXAMINATION: MRI OF THE BRAIN [...] Signed by: Kel Hennessy MD 09/02/20 Final resultNormalMansfield HospitalI LIMITED BRAINOrdered By: Ralf Christie on 09-91-1612Ru acute intracranial abnormality. Findings were discussed with Dr. Mcdonald At 11:45 am on 09/02/2020.[employer] Phone: eXAMINATION: MRI OF THE BRAIN WITHOUT CONTRAST 09/02/2020 12:33 pm TECHNIQUE: Multiplanar multisequence MRI of the brain was performed without the administration of intravenous contrast. COMPARISON: None. HISTORY: ORDERING SYSTEM PROVIDED HISTORY: stroke alert, Left MCA stroke TECHNOLOGIST PROVIDED HISTORY: stroke alert, Left MCA stroke FINDINGS: INTRACRANIAL STRUCTURES/VENTRICLES: There is no acute hemorrhage, mass effect, or midline shift. There is satisfactory overall kevin-white matter differe ntiation. The ventricular structures are symmetric and unremarkable. [...] normal. The soft tissues demonstrate no acute abnormality.[employer] Phone: edi, [facility] Incoming Radiant Results From [employer]be[employer] - 09/02/2020 12:44 PM EDT EXAMINATION: MRI [...] Dr. Mcdonald At 11:45 am on 09/02/2020. [employer] Phone: [facility] CenterLinkua Phone: No Panel InformationOrdered By: Xiomara Lomax on 34-07-1568[facility] Work Phone: pOC Glucose FingerstickOrdered By: Xiomara Lomax on 38-12-2595Ehicyoi [Mass/Vol]73 mg/dL65 - 105 mg/dLMercy Health St. Rita'S Medical CenterLinkua Phone: [facility] CenterLinkua Phone: pOCT GlucoseOrdered By: Xiomara Lomax on 09-02-2020 Glucose [Mass/Vol]89 mg/dL74 - 100 mg/dLMercy Health St. Rita'S Medical CenterLinkua Phone: pOCT urea (BUN)Ordered By: Xiomara Lomax on 09-02-2020 Urea nitrogen [Mass/Vol]22 mg/dL8 - 26 mg/dLMercy Health St. Rita'S Medical CenterLinkua Phone: pOTASSIUM (POC)Ordered By: Xiomara Lomax on 09-02-2020 Potassium [Moles/Vol]3.8 mmol/L3.5 - 4.5 mmol/LMercy [facility] Work Phone: sODIUM (POC)Ordered By: Xiomara Lomax on 09-02-2020 Sodium [Moles/Vol]138 mmol/L138 - 146 mmol/LMercy [facility] Work Phone: sTROKE PANELOrdered By: Mikael Metz on 09-02-2020% CKMB3.6 %High0.0 - 3.0 %[facility] Phone: absolute Eos #0.00[facility] CenterLinkua Phone: absolute Immature Granulocyte0.00[facility] CenterLinkua Phone: absolute Lymph #0.83LowMercy Health St. Rita'S Medical CenterArkansas World Trade Center Work Phone: absolute Crisp #0.83HighMercy Health St. Rita'S Medical CenterLinkua Phone: anion gap [Moles/Vol]20 mmol/LHigh9 - 17 mmol/LMNot[employer] Work Phone: aPTT Coag (Bld) [Time]21.8 sMselect medical specialty hospital - trumbullNeoGenomics Laboratories Work Phone: comment on above: IV Heparin Therapy Range: 48.6-77.8 Basophils (Bld) [#/Vol]0.00 10*3/uLMercy Health St. Rita'S Medical CenterArkansas World [facility] Work Phone: basophils/100 WBC (Bld)0 %0 - 2 %[facility] HospitalNe[facility]Gen[facility] Work Phone: calcium [Mass/Vol]9.2 mg/dL8.6 - 10.4 mg/dLMercy Health St. Rita'S Medical CenterLinkua Phone: chloride [Moles/Vol]100 mmol/L98 - 107 mmol/LM[employer] Work Phone: cK [Catalytic activity/Vol]81 U/L26 - 192 U/LMselect medical specialty hospital [facility] Phone: cK.MB [Mass/Vol]2.9 ng/mL<5.4[facility] Medical CenterLinkua Phone: cKMB InterpretationNORMAL ISOENZYME PATTERNMercy Health St. Rita'S Medical CenterLinkua Phone: cO2 [Moles/Vol]16 mmol/LLow20 - 31 mmol/LMregional medical center [facility] Work Phone: creatinine [Mass/Vol]0.63 mg/dL0.50 - 0.90 mg/dLMercy Health St. Rita'S Medical CenterLinkua Phone: differential TypeNOT REPORTEDMercy Health St. Rita'S Medical CenterLinkua Phone: eosinophils/100 WBC (Bld)0 %Low1 - 4 %[facility] Phone: GFR >60>60 mL/minMercy Health St. Rita'S Medical CenterLinkua Phone: GFR Non->60>60 mL/minMercy Health St. Rita'S Medical CenterLinkua Phone: GFR/1.73 sq M.predicted MDRD (S/P/Bld) [Vol rate/Area] [facility] Phone: comment on above:Average GFR for 70 or more years old: 75 mL/min/1.73sq m Chronic Kidney Disease: <60 mL/min/1.73sq m Kidney failure: <15 mL/min/1.73sq m eGFR calculated using average adult body mass. Additional eGFR calculator available at: http://www.LightningBuy.iCharts/multiple_crcl_2012.htm GFR/1.73 sq M.predicted MDRD (S/P/Bld) [Vol rate/Area]NOT REPORTEDMercy Health St. Rita'S Medical CenterLinkua Phone: Glucose [Mass/Vol]110 mg/cIVdie00 - 99 mg/dLMercy Health St. Rita'S Medical CenterLinkua Phone: Hematocrit (Bld) [Volume fraction]35.8 %Low36.3 - 47.1 %[employer] Phone: Hemoglobin.gastrointestinal spec 1 Ql (Stl)11.4 g/dL Low11.9 - 15.1 g/dLMercy Health St. Rita'S Medical CenterLinkua Phone: Immature granulocytes/100 WBC (Bld)0 %0[facility] Rita'S Medical CenterLinkua Phone: INR Coag (Bld) [Relative time]1.1 {INR}[employer] Phone: comment on above: Therapeutic Range: Moderate Anticoagulant Intensity: INR = 2.0-3.0 High Anticoagulant Intensity: INR = 2.5-3.5 Interpretation and review of laboratory resultsAbnormalMercy Health St. Rita'S Medical CenterLinkua Phone: lymphocytes/100 WBC (Bld)7 %Low24 - 44 %[employer] Phone: MCH (RBC) [Entitic mass]29.8 pg25.2 - 33.[address] Rita'S Medical CenterLinkua Phone: MCHC (RBC) [Mass/Vol]31.8 g/dL28.4 - 34.8 g/dLMercy Health St. Rita'S Medical CenterLinkua Phone: MCV (RBC) [Entitic vol]93.7 fL82.6 - 102.[address] Rita'S Medical CenterLinkua Phone: Monocytes/100 WBC (Bld)7 %1 - 7 %[employer] Phone: Morphology Maninder (Bld) [Interp]NormalMercy Health St. Rita'S Medical CenterLinkua Phone: Myoglobin [Mass/Vol]59 ng/gOQncq22 - 58 ng/mLMercy Health St. Rita'S Medical CenterLinkua Phone: NRBC Automated0.00.[address] per [address] Rita'S Medical CenterLinkua Phone: platelet distribution width (Bld) [Ratio]14.6 %High 11.8 - 14.4 %[employer] Phone: platelet EstimateNOT REPORTEDMercy Health St. Rita'S Medical CenterLinkua Phone: platelet mean volume (Bld) [Entitic vol]9.4 fL8.1 - 13.[address] Rita'S Medical CenterLinkua Phone: platelets (Bld) [#/Vol]215 10*3/uLMerLinkua Phone: potassium [Moles/Vol]4.2 mmol/L3.7 - 5.3 mmol/LMercy [facility] Work Phone: pT Coag (PPP) [Time]11.2 sMselect medical specialty hospital - trumbullEasyCopay Phone: RBC (Bld) [#/Vol]3.82 10*6/uLLow3.95 - 5.11 m/uLMercy Health St. Rita'S Medical CenterLinkua Phone: RBC (Bld) [#/Vol]NOT REPORTEDMercy Health St. Rita'S Medical CenterLinkua Phone: segmented neutrophils/100 WBC (Bld)86 %High36 - 66 % [facility] Phone: segs Risldnpt40.14HighMercy Health St. Rita'S Medical CenterLinkua Phone: sodium [Moles/Vol]136 mmol/L135 - 144 mmol/LMselect medical specialty hospital - [facility]ully [facility] Phone: Troponin InterpNOT REPORTEDMercy Health St. Rita'S Medical CenterLinkua Phone: Troponin TNOT REPORTED<0.03 ng/mLMercy Health St. Rita'S Medical CenterLinkua Phone: Troponin, High Cdhnkwfskua96 ng/LHigh0 - 14 ng/LMselect medical specialty hospital - trumbullEasyCopay Phone: comment on above: High Sensitivity Troponin values cannot be compared with other Troponin methodologies. Patients with high levels of Biotin oral intake (i.e >5mg/day) may have falsely decreased Troponin levels. Samples collected within 8 hours of biotin intake may require additional information for diagnosis. Urea nitrogen (BldV) [Mass/Vol]20 mg/dL8 - 23 mg/dLWhite Hospital Work Phone: Urea nitrogen/Creatinine (Bld) [Mass ratio]NOT REPORTEDWhite Hospital Work Phone: WBC (Bld) [#/Vol]11.8 10*3/uLHighWhite Hospital Work Phone: WBC (Bld) [#/Vol]NOT REPORTEDWhite Hospital Work Phone: [facility] Work Phone: stroke Panelon 37-50-1203RF [Catalytic activity/Vol]81 U/NGrzlgm76-045ZgslfOhiohealth Southeastern Medical CenterComment on above:Performed By: #### STROKE #### [facility] [address] [place] [address] Phlebotomy Technician: Malik Hart DO [address] [address] Phlebotomy Technician: Wellington Back MD #### GLYHGB #### [address] [address] Phlebotomy Technician: Wellington Back MD(cont.)[facility] Comment on above:Result Comment: Average GFR for 70 or more years old: 75 mL/min/1.73sq m Chronic Kidney Disease: <60 mL/min/1.73sq m Kidney failure: <15 mL/min/1.73sq m eGFR calculated using average adult body mass. Additional eGFR calculator available at: http://www.LightningBuy.com/multiple_crcl_2012.htmPerformed By: #### STROKE #### [facility] [address] [place] [address] Phlebotomy Technician: Malik Hart DO [address] [address] Phlebotomy Technician: Wellington Back MD #### GLYHGB #### [address] [place] [address] Phlebotomy Technician: Wellington Back MDAnion gap [Moles/Vol]20 mmol/LHigh9-17Ohiohealth Southeastern Medical CenterComment on above:Performed By: #### STROKE #### [facility] [address] [place] [address] Phlebotomy Technician: Malik Hart DO [facility] [address] [place] [address] Phlebotomy Technician: Wellington Back MD #### GLYHGB #### [address] [address] Phlebotomy Technician: MARCO Coffmanalcium [Mass/Vol]9.2 mg/dLNormal8.6-10.4Ohio[facility] Southeastern Medical CenterComment on above:Performed By: #### STROKE #### [facility] [address] [place] [address] Phlebotomy Technician: Malik Hart DO [facility] [address] [place] [address] Phlebotomy Technician: Wellington Back MD #### GLYHGB #### [address] [address] Phlebotomy Technician: MARCO Coffmanhloride [Moles/Vol]100 mmol/ERupuht89-336ZlrfkOhiohealth Southeastern Medical CenterComment on above:Performed By: #### STROKE #### [facility] [address] [place] [address] Phlebotomy Technician: Malik Hart DO [address] [address] Phlebotomy Technician: Wellington Back MD #### GLYHGB #### [address] [address] Phlebotomy Technician: Wellington Back MDCO2 [Moles/Vol]16 mmol/AErm05-94QldiuOhiohealth Southeastern Medical CenterComment on above:Performed By: #### STROKE #### [facility] [address] [place] [address] Phlebotomy Technician: Malik Hart DO [address] [address] Phlebotomy Technician: Wellington Back MD #### GLYHGB #### [address] [address] Phlebotomy Technician: MARCO Coffmanreatinine [Mass/Vol]0.63 mg/dLNormal0.50-0.90 [facility] Medical CenterComment on above:Performed By: #### STROKE #### [facility] [address] [place] [address] Phlebotomy Technician: Malik Hart [address] [address] Phlebotomy Technician: Wellington Back MD #### GLYHGB #### [address] [address] Phlebotomy Technician: Wellington Back MDGFR, Amer>60Normal>60Ohio[facility] Southeastern Medical CenterComment on above:Performed By: #### STROKE #### [facility] [address] [place] [address] Phlebotomy Technician: Malik Hart DO [address] [address] Phlebotomy Technician: Wellington Back MD #### GLYHGB #### [address] [address] Phlebotomy Technician: Wellington Back MDGFR,non Amer>60Normal>60[facility] HospitalComment on above:Performed By: #### STROKE #### [facility] [address] [place] [address] Phlebotomy Technician: Malik Hart DO [address] [address] Phlebotomy Technician: Wellington Back MD #### GLYHGB #### [address] [address] Phlebotomy Technician: Wellington Back MDGlucose [Mass/Vol]110 mg/kLScde46-50LiwerNaval Hospital OaklandComment on above:Performed By: #### STROKE #### [facility] [address] [place] [address] Phlebotomy Technician: Malik Hart DO [address] [address] Phlebotomy Technician: Wellington Back MD #### GLYHGB #### [address] [address] Phlebotomy Technician: Wellington Back MDMyoglobin [Mass/Vol]59 ng/vMGikc93-48Navut32 Williams StreetComment on above:Performed By: #### STROKE #### [facility] [address] [place] [address] Phlebotomy Technician: Malik Hart DO [address] [address] Phlebotomy Technician: Wellington Back MD #### GLYHGB #### [address] [address] Phlebotomy Technician: Wellington Back MDPotassium [Moles/Vol]4.2 mmol/LNormal3.7-5.3 [facility] CenterComment on above:Performed By: #### STROKE #### [facility] [address] [place] [address] Phlebotomy Technician: Malik Hart DO [address] [address] Phlebotomy Technician: Wellington Back MD #### GLYHGB #### [address] [address] Phlebotomy Technician: KAREN Coffmanodium [Moles/Vol]136 mmol/YMjjgik726-814TrzpcOhiohealth Southeastern Medical CenterComment on above:Performed By: #### STROKE #### [facility] [address] [place] [address] Phlebotomy Technician: Malik Hart [address] [address] Phlebotomy Technician: Wellington Back MD #### GLYHGB #### [address] [address] Phlebotomy Technician: Carlitos Coffman High Sens20 ng/LHigh0-14Ohio[facility] Southeastern Medical CenterComment on above:Result Comment: High Sensitivity Troponin values cannot be compared with other Troponin methodologies. Patients with high levels of Biotin oral intake (i.e >5mg/day) may have falsely decreased Troponin levels. Samples collected within 8 hours of biotin intake may require additional information for diagnosis.Performed By: #### STROKE #### [facility] [address] [place] [address] Phlebotomy Technician: Malik Hart [address] [address] Phlebotomy Technician: Wellington Back MD #### GLYHGB #### [address] [address] Phlebotomy Technician: Wellington Back MDUrea nitrogen [Mass/Vol]20 mg/dLNormal8-23Ohiohealth Southeastern Medical CenterComment on above:Performed By: #### STROKE #### [facility] [address] [place] [address] Phlebotomy Technician: Malik Hart [address] [address] Phlebotomy Technician: Wellington Back MD #### GLYHGB #### [address] [address] Phlebotomy Technician: MDAbs. Augustus Basophil0.00 k/uLNormal0.0-0.2MNaval Hospital OaklandComment on above:Performed By: #### STROKE #### [facility] [address] [place] [address] Phlebotomy Technician: Malik Hart [address] [address] Phlebotomy Technician: Wellington Back MD #### GLYHGB #### [address] [address] Phlebotomy Technician: MDAbs. AugustusImm.Granulocyte0.00 k/uLNormal0.00-0.30Ohiohealth Southeastern Medical CenterComment on above:Performed By: #### STROKE #### [facility] [address] [place] [address] Phlebotomy Technician: Malik Hart DO [address] [address] Phlebotomy Technician: Wellington Back MD #### GLYHGB #### [address] [address] Phlebotomy Technician: MDAbs. AugustusNeutrophil (Seg)10.14 k/uLHigh1.8-7.7Ohiohealth Southeastern Medical CenterComment on above:Performed By: #### STROKE #### [facility] [address] [place] [address] Phlebotomy Technician: Fanelly, Malik, [address] [address] Phlebotomy Technician: Wellington Back MD #### GLYHGB #### [address] [address] Phlebotomy Technician: Wellington Back MDBasophils/100 WBC (Bld)0 %Normal0-2[facility] Mental HospitalComment on above:Performed By: #### STROKE #### [facility] [address] [place] [address] Phlebotomy Technician: Malik Hart [address] [address] Phlebotomy Technician: Wellington Back MD #### GLYHGB #### [address] [address] Phlebotomy Technician: Wellington Back MDEosinophils (Bld) [#/Vol]0.00 10*3/uLNormal 0.0-0.4[facility] Centercy Cam[facility]illo State Mental HospitalComment on above:Performed By: #### STROKE #### [facility] [address] [place] [address] Phlebotomy Technician: Malik Hart [address] [address] Phlebotomy Technician: Wellington Back MD #### GLYHGB #### [address] [address] Phlebotomy Technician: JOSE MARIA Coffmanosinophils/100 WBC (Bld)0 %Low1-4[facility] Medical Centercy [facility] State Mental HospitalComment on above:Performed By: #### STROKE #### [facility] [address] [place] [address] Phlebotomy Technician: Malik Hart [address] [address] Phlebotomy Technician: Wellington Back MD #### GLYHGB #### [address] [address] Phlebotomy Technician: Wellington Back MDImmature granulocytes/100 WBC (Bld)0 %Normal0 Ohio[facility] Southeastern Medical CenterComment on above:Performed By: #### STROKE #### [facility] [address] [place] [address] Phlebotomy Technician: Malik Hart DO [address] [address] Phlebotomy Technician: Wellington Back MD #### GLYHGB #### [address] [address] Phlebotomy Technician: Wellington Back MDLymphocytes (Bld) [#/Vol]0.83 10*3/uLLow1.0-4.8 [facility] Southeastern Medical CenterComment on above:Performed By: #### STROKE #### [facility] [address] [place] [address] Phlebotomy Technician: Malik Hart DO [address] [address] Phlebotomy Technician: Wellington Back MD #### GLYHGB #### [address] [address] Phlebotomy Technician: Wellington Back MDLymphocytes/100 WBC (Bld)7 %Kod72-05EvlylOhiohealth Southeastern Medical CenterComment on above:Performed By: #### STROKE #### [facility] [address] [place] [address] Phlebotomy Technician: Malik Hart DO [address] [address] Phlebotomy Technician: Wellington Back MD #### GLYHGB #### [address] [address] Phlebotomy Technician: Wellington Back MDMonocytes (Bld) [#/Vol]0.83 10*3/uLHigh0.1-0.8 [facility] Southeastern Medical CenterComment on above:Performed By: #### STROKE #### [facility] [address] [place] [address] Phlebotomy Technician: Malik Hart DO [address] [address] Phlebotomy Technician: Wellington Back MD #### GLYHGB #### [address] [address] Phlebotomy Technician: Wellington Back MDMonocytes/100 WBC (Bld)7 %Normal1-7Ohio[facility] Southeastern Medical CenterComment on above:Performed By: #### STROKE #### [facility] [address] [place] [address] Phlebotomy Technician: Malik Hart [address] [address] Phlebotomy Technician: Wellington Back MD #### GLYHGB #### [address] [address] Phlebotomy Technician: LIANA Coffmanorphology Maninder (Bld) [Interp]NormalNormalOhiohealth Southeastern Medical CenterComment on above:Performed By: #### STROKE #### [facility] [address] [place] [address] Phlebotomy Technician: Malik Hart DO [address] [address] Phlebotomy Technician: Wellington Back MD #### GLYHGB #### [address] [address] Phlebotomy Technician: Wellington Madoff, MDNeutrophil (Seg)86 %Yaez98-68EqgeuOhiohealth Southeastern Medical CenterComment on above:Performed By: #### STROKE #### [facility] [address] [place] [address] Phlebotomy Technician: Malik Hart DO [address] [address] Phlebotomy Technician: Wellington Back MD #### GLYHGB #### [address] [address] Phlebotomy Technician: Wellington Back MDaPTAlcides Coag (Bld) [Time]21.8 eMtyfco71.5-30.5Ohiohealth Southeastern Medical CenterComment on above:Result Comment: IV Heparin Therapy Range: 48.6-77.8Performed By: #### STROKE #### [facility] [address] [place] [address] Phlebotomy Technician: Malik Hart [address] [address] Phlebotomy Technician: Wellington Back MD #### GLYHGB #### [address] [address] Phlebotomy Technician: Wellington Back MDINR Coag (PPP) [Relative time]1.1 {INR}Normal [facility] Southeastern Medical CenterComment on above:Result Comment: Therapeutic Range: Moderate Anticoagulant Intensity: INR = 2.0-3.0 High Anticoagulant Intensity: INR = 2.5-3.5Performed By: #### STROKE #### [facility] [place] [address] Phlebotomy Technician: Malik Hart [address] [address] Phlebotomy Technician: Wellington Back MD #### GLYHGB #### [address] [address] Phlebotomy Technician: TAYA CoffmanT Coag (PPP) [Time]11.2 sNormal9.1-12.3[facility] Mental HospitalComment on above:Performed By: #### STROKE #### [facility] [address] [place] [address] Phlebotomy Technician: Malik Hart [address] [address] Phlebotomy Technician: Wellington Back MD #### GLYHGB #### [address] [address] Phlebotomy Technician: Wellington Back MDErythrocyte distribution width (RBC) [Ratio]14.6 %High11.8-14.4[facility] Mental HospitalComment on above:Performed By: #### STROKE #### [facility] [address] [place] [address] Phlebotomy Technician: Malik Hart [address] [address] Phlebotomy Technician: Wellington Back MD #### GLYHGB #### [address] [address] Phlebotomy Technician: Wellington Back MDHematocrit (Bld) [Volume fraction]35.8 %Low 36.3-47.1[facility] Mental HospitalComment on above:Performed By: #### STROKE #### [facility] [address] [place] [address] Phlebotomy Technician: Malik Hart [address] [address] Phlebotomy Technician: Wellington Back MD #### GLYHGB #### [address] [address] Phlebotomy Technician: Wellington Back MDHemoglobin (Bld) [Mass/Vol]11.4 g/dLLow11.9-15.1 [facility] Medical CenterComment on above:Performed By: #### STROKE #### [facility] [address] [place] [address] Phlebotomy Technician: Malik Hart [address] [address] Phlebotomy Technician: Wellington Back MD #### GLYHGB #### [address] [address] Phlebotomy Technician: LIANA CoffmanCH (RBC) [Entitic mass]29.8 zqQsdhjt19.2-33.5 [facility] Medical CenterComment on above:Performed By: #### STROKE #### [facility] [address] [place] [address] Phlebotomy Technician: Malik Hart [address] [address] Phlebotomy Technician: Wellington Back MD #### GLYHGB #### [address] [address] Phlebotomy Technician: LIANA CoffmanCHC (RBC) [Mass/Vol]31.8 g/wICgfgqu16.4-34.8 [facility] Medical CenterComment on above:Performed By: #### STROKE #### [facility] [address] [place] [address] Phlebotomy Technician: Malik Hart [address] [address] Phlebotomy Technician: Wellington aBck MD #### GLYHGB #### [address] [address] Phlebotomy Technician: LIANA CoffmanCV (RBC) [Entitic vol]93.7 bQCksbux56.6-102.9 [facility] Medical CenterComment on above:Performed By: #### STROKE #### [facility] [address] [place] [address] Phlebotomy Technician: Malik Hart DO [address] [address] Phlebotomy Technician: Wellington Back MD #### GLYHGB #### [address] [address] Phlebotomy Technician: Wellington Back MDNRBC Automated0.0 per 100 WBCNormal0.0Ohio[facility] Southeastern Medical CenterComment on above:Performed By: #### STROKE #### [facility] [address] [place] [address] Phlebotomy Technician: Malik Hart DO [address] [address] Phlebotomy Technician: Wellington Back MD #### GLYHGB #### [address] [address] Phlebotomy Technician: Gina Coffman mean volume (Bld) [Entitic vol]9.4 fL Normal8.1-13.5Ohio[facility] Southeastern Medical CenterComment on above:Performed By: #### STROKE #### [facility] [address] [place] [address] Phlebotomy Technician: Malik Hart DO [address] [address] Phlebotomy Technician: Wellington Back MD #### GLYHGB #### [address] [address] Phlebotomy Technician: Melida Coffman (Bld) [#/Vol]215 10*3/rCShpeqz989-009 [facility] Medical CenterComment on above:Performed By: #### STROKE #### [facility] [address] [place] [address] Phlebotomy Technician: Malik Hart [address] [address] Phlebotomy Technician: Wellington Back MD #### GLYHGB #### [address] [address] Phlebotomy Technician: SAMMI Coffman ([facility]) [#/Vol]3.82 10*6/uLLow3.95-5.11Ohio[facility] Southeastern Medical CenterComment on above:Performed By: #### STROKE #### [facility] [address] [place] [address] Phlebotomy Technician: Malik Hart [address] [address] Phlebotomy Technician: Wellington Back MD #### GLYHGB #### [address] [address] Phlebotomy Technician: STEFAN Coffman (lucia) [#/Vol]11.8 10*3/uLHigh3.5-11.3MNaval Hospital OaklandComment on above:Performed By: #### STROKE #### [facility] [address] [place] [address] Phlebotomy Technician: Malik Hart DO [address] [address] Phlebotomy Technician: Wellington Back MD #### GLYHGB #### [address] [address] Phlebotomy Technician: Marichuy CoffmanNOT REPORTEDNoalOhiohealth Southeastern Medical CenterComment on above:Performed By: #### STROKE #### [facility] [address] [place] [address] Phlebotomy Technician: Malik Hart DO [address] [address] Phlebotomy Technician: Wellington Back MD #### GLYHGB #### [address] [address] Phlebotomy Technician: SUSI Coffman/IMELDA Garcia REPORTEDNormal9-20[facility] Medical CenterComment on above:Performed By: #### STROKE #### [facility] [address] [place] [address] Phlebotomy Technician: Malik Hart [address] [address] Phlebotomy Technician: Wellington Back MD #### GLYHGB #### [address] [address] Phlebotomy Technician: TAYA Coffmanerformed By: #### BMPX, PROL, TSHX, LIPR #### [address] [address] Phlebotomy Technician: Gina Coffman EstimateNOT REPORTEDNormalOhiohealth Southeastern Medical CenterComment on above:Performed By: #### STROKE #### [facility] [address] [place] [address] Phlebotomy Technician: Malik Hart [address] [address] Phlebotomy Technician: Wellington Back MD #### GLYHGB #### [address] [address] Phlebotomy Technician: SAMMI Coffman morphology finding Nom (Bld)NOT REPORTED NormalOhiohealth Southeastern Medical CenterComment on above:Performed By: #### STROKE #### [facility] [address] [place] [address] Phlebotomy Technician: Malik Hart [address] [address] Phlebotomy Technician: Wellington Back MD #### GLYHGB #### [address] [address] Phlebotomy Technician: KAREN Coffmantaging:NOT REPORTEDNormalMercy Camarillo State Mental HospitalComment on above:Performed By: #### STROKE #### [facility] [address] [place] [address] Phlebotomy Technician: Malik Hart [address] [address] Phlebotomy Technician: Wellington Back MD #### GLYHGB #### [address] [address] Phlebotomy Technician: TAYA Coffmanerformed By: #### BMPX, PROL, TSHX, LIPR #### [address] [address] Phlebotomy Technician: Carlitos Coffman.NOT REPORTEDNormalMercy Camarillo State Mental HospitalComment on above:Performed By: #### STROKE #### [facility] [address] [place] [address] Phlebotomy Technician: Malik Hart [address] [address] Phlebotomy Technician: Wellington Back MD #### GLYHGB #### [address] [address] Phlebotomy Technician: Carlitos Coffman REPORTEDNormal<0.03MerMonterey Park HospitalComment on above:Performed By: #### STROKE #### [facility] [address] [place] [address] Phlebotomy Technician: Malik Hart DO [facility] [address] [place] [address] Phlebotomy Technician: Wellington Back MD #### GLYHGB #### [facility] [address] [place] [address] Phlebotomy Technician: Wellington Back MDW MorphologyNOT REPORTEDNormalOhiohealth Southeastern Medical CenterComment on above:Performed By: #### STROKE #### [facility] [address] [place] [address] Phlebotomy Technician: Malik Hart DO [address] [address] Phlebotomy Technician: Wellington Back MD #### GLYHGB #### [address] [address] Phlebotomy Technician: Wellington Back MDBajackson purchase medical center Metabolic Panel w/ Reflex to MGOrdered By: Law Stratton on [id number] gap [Moles/Vol]9 mmol/L9 - 17 mmol/LMercy Health Work Phone: calcium [Mass/Vol]8.9 mg/dL8.6 - 10.4 mg/dLMerJolieBox Health Work Phone: chloride [Moles/Vol]105 mmol/L98 - 107 mmol/LMercy Health Work Phone: cO2 [Moles/Vol]24 mmol/L20 - 31 mmol/LMercy Health Work Phone: creatinine [Mass/Vol]0.61 mg/dL0.50 - 0.90 mg/dLMerJolieBox Health Work Phone: GFR >60>60 mL/minMerJolieBox Health Work Phone: GFR Non->60>60 mL/minMerJolieBox Health Work Phone: Glucose [Mass/Vol]113 mg/fPNlcw56 - 99 mg/dLDoctors Hospital [facility] Work Phone: potassium [Moles/Vol]4.2 mmol/L3.7 - 5.3 mmol/LMselect [facility] specialty hospital [facility]ully [facility] Work Phone: sodium [Moles/Vol]138 mmol/L135 - 144 mmol/LMercy [facility] Work Phone: Urea nitrogen (BldV) [Mass/Vol]30 mg/dLHigh8 - 23 mg/dLDoctors Hospital [facility] Work Phone: Urea nitrogen/Creatinine (Bld) [Mass ratio]49HighMercy Health St. Rita'S Medical CenterLinkua Phone: cBC Auto DifferentialOrdered By: Law Stratton on [id number] Eos #0.10[facility] Phone: absolute Immature Granulocyte0.00[facility] Phone: absolute Lymph #0.38LowMercy Health St. Rita'S Medical CenterLinkua Phone: absolute Crisp #0.48[facility] Phone: basophils (Bld) [#/Vol]0.00 10*3/uLMercy Health St. Rita'S Medical CenterLinkua Phone: basophils/100 WBC (Bld)0 %0 - 2 %[facility] Phone: differential TypeNOT REPORTEDMercy Health St. Rita'S Medical CenterLinkua Phone: eosinophils/100 WBC (Bld)1 %1 - 4 %[facility]Easy[facility] Phone: Hematocrit (Bld) [Volume fraction]36.5 %36.3 - 47.1 % [facility] Phone: Hemoglobin.gastrointestinal spec 1 Ql (Stl)11.7 g/dL Low11.9 - 15.1 g/dLMercy Health St. Rita'S Medical CenterLinkua Phone: Immature granulocytes/100 WBC (Bld)0 %0[facility] Rita'S Medical CenterLinkua Phone: Interpretation and review of laboratory results AbnormalMercy Health St. Rita'S Medical CenterLinkua Phone: lymphocytes/100 WBC (Bld)4 %Low24 - 43 %[employer] Phone: MCH (RBC) [Entitic mass]29.3 pg25.2 - 33.[address] Rita[address] Medical CenterArkansas World Trade Center Work Phone: MCHC (RBC) [Mass/Vol]32.1 g/dL28.4 - 34.8 g/dLMercy Health St. Rita'S Medical CenterLinkua Phone: MCV (RBC) [Entitic vol]91.3 fL82.6 - 102.9 fLPlayDo Phone: Monocytes/100 WBC (Bld)5 %3 - 12 %[employer] Phone: Morphology Maninder (Bld) [Interp]NormalMercy Health St. Rita'S Medical CenterLinkua Phone: NRBC Automated0.00.0 per [address] Rita'S Medical CenterLinkua Phone: platelet distribution width (Bld) [Ratio]13.7 %11.8 - 14.4 %[employer] Phone: platelet EstimateNOT REPORTEDMercy Health St. Rita'S Medical CenterLinkua Phone: Rlatelet mean volume (Bld) [Entitic vol]9.7 fL8.1 - 13.[address] Rita'S Medical CenterLinkua Phone: Platelets (Bld) [#/Vol]191 10*3/uLPlayDo Phone: RBC (Bld) [#/Vol]4.00 10*6/uL3.95 - 5.11 m/uLMercy Health St. Rita'S Medical CenterLinkua Phone: RBC (Bld) [#/Vol]NOT REPORTEDMercy Health St. Rita'S Medical CenterLinkua Phone: segmented neutrophils/100 WBC (Bld)90 %High36 - 65 % [facility]Easy[facility] Phone: segs Absolute8.64HighMercy Health St. Rita'S Medical CenterLinkua Phone: WBC (Bld) [#/Vol]9.6 10*3/uLMercy Health St. Rita'S Medical CenterLinkua Phone: WBC (Bld) [#/Vol]NOT REPORTEDMercy Health St. Rita'S Medical CenterLinkua Phone: [phone]-[id number], RapidOrdered By: Law Stratton on 06-02-2020 SARS-CoV-2 (COVID-19) RNA LADAN+probe Ql (Unsp spec)Not detectedNot DetectedMercy Health St. Rita'S Medical CenterLinkua Phone: comment on above: Rapid NAAT: The specimen is [...] management decisions. Fact sheet for Healthcare Providers: https://www.fda.gov/media/985384/download Fact sheet for Patients: https://www.fda.gov/media/037010/download Methodology: Isothermal Nucleic Acid Amplification Specimen Description.NASOPHARYNGEAL SWABMercy Health St. Rita'S Medical CenterLinkua Phone: cT Head WO ContrastOrdered By: Law Stratton on [id number] acute intracranial abnormality.[employer] Phone: eXAMINATION: CT OF THE HEAD WITHOUT CONTRAST 06/02/2020 [...] TECHNOLOGIST PROVIDED HISTORY: headache with past medical historyof aneurysm Decision Support Exception->Emergency Medical Condition (MA) [...] sinuses and mastoid air cells demonstrate no a cute abnormality. SOFT TISSUES/SKULL: No acute abnormality of the visualized skull or soft tissues.Vascular calcifications are seen compatible with atherosclerotic disease.[employer] Phone: etrevor, [facility] Incoming Radiant Results From [employer] - 06/02/2020 3:27 PM EDT EXAMINATION: CT [...] atherosclerotic disease. IMPRESSION: No acute intracranial abnormality. [employer] Phone: Hepatic Function PanelOrdered By: Law Stratton on [id number] [Mass/Vol]3.8 g/dL3.5 - 5.2 g/dLMercy Health St. Rita'S Medical CenterLinkua Phone: albumin/Globulin [Mass ratio]1.6 {ratio}[employer] Phone: aLP (Bld) [Catalytic activity/Vol]75 U/L35 - 104 U/L [facility] Phone: aLT [Catalytic activity/Vol]17 U/L5 - 33 U/LMregional medical center [facility] Phone: aST [Catalytic activity/Vol]21 U/L<32[facility] Rita[facility]S Medical CenterLinkua Phone: bilirubin [Mass/Vol]0.43 mg/dL0.3 - 1.2 mg/dLMercy Health St. Rita'S Medical CenterLinkua Phone: bilirubin, IndirectCANNOT BE CALCULATED0.00 - 1.00 mg/dLMercy Health St. Rita'S Medical CenterLinkua Phone: bilirubin.indirect [Mass/Vol]mg/dL<0.31 mg/dLMercy Health St. Rita'S Medical CenterLinkua Phone: Free PSA/Total PSA [Mass fraction]6.2 g/dLLow6.4 - 8.3 g/dLMercy Health St. Rita'S Medical CenterLinkua Phone: GlobulinNOT REPORTED1.5 - 3.8 g/dLMercy Health St. Rita'S Medical CenterLinkua Phone: laboratory - Chemistry and Chemistry - challenge Ordered By: Law Stratton on [id number]/1.73 sq M.predicted MDRD (S/P/Bld) [Vol rate/Area][employer] Phone: comment on above:Average GFR for 70 or more years old: 75 mL/min/1.73sq m Chronic Kidney Disease: <60 mL/min/1.73sq m Kidney failure: <15 mL/min/1.73sq m eGFR calculated using average adult body mass. Additional eGFR calculator available at: http://www.M-DAQ/multiple_crcl_2011.htm Stage 1: Some kidney damage normal GFR Stage 2: Mild kidney damage GFR 60-89 Stage 3: Moderate kidney damage GFR 30-59 Stage 4: Severe kidney damage GFR 15-29 Stage 5: Severe kidney damage GFR <15 ESRD - chronic treatment by dialysis or transplant LipaseOrdered By: Law Stratton on [id number] [Catalytic activity/Vol]25 U/L13 - 60 U/LMselect medical specialty hospital [facility] Phone: No Panel InformationOrdered By: Law Stratton on [id number] and review of laboratory resultsAbnormndPlayDo Phone: cBC auto differentialon [id number] (Bld) [#/Vol]0.03 10*3/[employer] Phone: basophils/100 WBC (Bld)1 %0 - 2 %[employer] Phone: differential TypeNOT REPORTEDMercy Health St. Rita'S Medical CenterLinkua Phone: eosinophils (Bld) [#/Vol]0.15 10*3/[employer] Phone: eosinophils/100 WBC (Bld)3 %1 - 4 %[employer] Phone: erythrocyte distribution width (RBC) [Ratio]13.5 %11.8 - 14.4 %[employer] Phone: Hematocrit (Bld) [Volume fraction]36.7 %36.3 - 47.1 % [employer] Phone: Hemoglobin (Bld) [Mass/Vol]11.8 g/dLLow11.9 - 15.1 g/dLPlayDo Phone: Immature granulocytes (Bld) [#/Vol]0 %0[employer] Phone: Immature granulocytes (Bld) [#/Vol]10*3/[employer] Phone: Interpretation and review of laboratory results AbnormalMercy Health St. Rita'S Medical CenterLinkua Phone: [phone] (Bld) [#/Vol]0.98 10*3/uLLowMercy Health St. Rita'S Medical CenterLinkua Phone: [phone]/100 WBC (Bld)16 %Low24 - 43 %[employer] Phone: [phone] (RBC) [Entitic mass]29.5 pg25.2 - 33.[address] Rita[address] Medical CenterArkansas World Trade Center Work Phone: MCHC (RBC) [Mass/Vol]32.2 g/dL28.4 - 34.8 g/dLMercy Health St. Rita'S Medical CenterLinkua Phone: MCV (RBC) [Entitic vol]91.8 fL82.6 - 102.[address] Rita'S Medical CenterLinkua Phone: [phone] (Bld) [#/Vol]0.69 10*3/uLMercy Health St. Rita'S Medical CenterLinkua Phone: [phone]/100 WBC (Bld)12 %3 - 12 %[employer] Phone: Platelet mean volume (Bld) [Entitic vol]9.7 fL8.1 - 13.[address] Rita'S Medical CenterLinkua Phone: Platelets (Bld) [#/Vol]212 10*3/uLMercy Health St. Rita'S Medical CenterLinkua Phone: [phone] (Bld) [#/Vol]NOT REPORTEDMercy Health St. Rita'S Medical CenterLinkua Phone: RBC (Bld) [#/Vol]4.00 10*6/uL3.95 - 5.11 m/uLMercy Health St. Rita'S Medical CenterLinkua Phone: RBC morphology finding Nom (Bld)NOT REPORTEDMercy Health St. Rita'S Medical CenterLinkua Phone: Segmented neutrophils/100 WBC (Bld)68 %High36 - 65 % [employer] Phone: Segs Absolute4.13Mer[facility] St[facility] Rita'S Medical CenterLinkua Phone: WBC (Bld) [#/Vol]6.0 10*3/uLMerArkansas World Trade Center Work Phone: WBC (Bld) [#/Vol]0.0 10*3/uL0.0 per [address] Rita'S Medical CenterArkansas World [facility] Center Work Phone: WBC MorphologyNOT REPORTEDMerArkansas World Trade Center Work Phone: comprehensive Metabolic Panelon [id number] [Mass/Vol]4.3 g/dL3.5 - 5.2 g/dLMercy Health St. Rita'S Medical CenterArkansas [facility] Work Phone: Wlbumin/Globulin [Mass ratio]1.7 {ratio}[facility] Phone: XLP [Catalytic activity/Vol]67 U/L35 - 104 U/LMselect medical specialty hospital - trumbullNeoGenomics Laboratories Work Phone: VLT [Catalytic activity/Vol]13 U/L5 - 33 U/LMselect medical specialty hospital - trumbullNeoGenomics Laboratories Work Phone: Union gap [Moles/Vol]9 mmol/L9 - 17 mmol/LMselect medical specialty hospital - [facility]umbully [employer] Work Phone: YST [Catalytic activity/Vol]19 U/L<32[facility] Medical CenterLinkua Phone: Oilirubin Ql (U)0.53 mg/dL0.3 - 1.2 mg/dLMercy Health St. Rita'S Medical CenterLinkua Phone: Dun/Cre Omiqq71GaooO[facility] Work Phone: Zalcium [Mass/Vol]9.8 mg/dL8.6 - 10.4 mg/dLMercy Health St. Rita'S Medical CenterArkansas World [facility] Center Work Phone: Hhloride [Moles/Vol]104 mmol/L98 - 107 mmol/LMercy [employer] Work Phone: BO2 [Moles/Vol]25 mmol/L20 - 31 mmol/LMercy [employer] Work Phone: Preatinine [Mass/Vol]0.6 mg/dL0.50 - 0.90 mg/dLMerLinkua Phone: GFR >60>60 mL/minMercy Health St. Rita'S Medical CenterLinkua Phone: GFR Non->60>60 mL/minMercy Health St. Rita'S Medical CenterLinkua Phone: Glucose [Mass/Vol]94 mg/dL70 - 99 mg/dLMercy Health St. Rita'S Medical CenterLinkua Phone: Interpretation and review of laboratory results AbnormalMercy Health St. Rita'S Medical CenterLinkua Phone: potassium [Moles/Vol]3.9 mmol/L3.7 - 5.3 mmol/LMselect medical specialty hospital - trumbullEasyCopay Phone: protein [Mass/Vol]6.9 g/dL6.4 - 8.3 g/dLMercy Health St. Rita'S Medical CenterLinkua Phone: sodium [Moles/Vol]138 mmol/L135 - 144 mmol/LMselect medical specialty hospital - trumbullEasyCopay Phone: Urea nitrogen [Mass/Vol]15 mg/dL8 - 23 mg/dLMercy Health St. Rita'S Medical CenterLinkua Phone: Metabolic Panelon 15-13-8661JBC/1.73 sq M predicted among non-blacks MDRD (S/P/Bld) [Vol rate/Area]PlayDo Phone: comment on above:Stage 1: Some kidney damage normal GFR Stage 2: Mild kidney damage GFR 60-89 Stage 3: Moderate kidney damage GFR 30-59 Stage 4: Severe kidney damage GFR 15-29 Stage 5: Severe kidney damage GFR <15 ESRD - chronic treatment by dialysis or transplant Average GFR for 70 or more years old: 75 mL/min/1.73sq m Chronic Kidney Disease: <60 mL/min/1.73sq m Kidney failure: <15 mL/min/1.73sq m eGFR calculated using average adult body mass. Additional eGFR calculator available at: http://www.LightningBuy.iCharts/multiple_crcl_2012.htm Troponinon 28-91-7335Ivywnylfsvknkv and review of laboratory resultsAbnormal PlayDo Phone: Troponin I.cardiac [Mass/Vol]NOT REPORTEDMercy Health St. Rita'S Medical CenterLinkua Phone: Troponin T.cardiac [Mass/Vol]NOT REPORTED<0.03 ng/mL PlayDo Phone: Troponin, High Rmarwintkcm84 ng/LHigh0 - 14 ng/LMIO.com Phone: comjkec on above: High Sensitivity Troponin values cannot be compared with other Troponin methodologies. Patients with high levels of Biotin oral intake (i.e >5mg/day) may have falsely decreased Troponin levels. Samples collected within 8 hours of biotin intake may require additional information for diagnosis. Interpretation and review of laboratory resultsAbnormalMercy Health St. Rita'S Medical CenterLinkua Phone: Troponin I.cardiac [Mass/Vol]NOT REPORTEDMercy Health St. Rita'S Medical CenterLinkua Phone: Troponin T.cardiac [Mass/Vol]NOT REPORTED<0.03 ng/mL PlayDo Phone: Troponin, High Ihvinerquma96 ng/LHigh0 - 14 ng/IO.com Phone: comlhdb on above: High Sensitivity Troponin values cannot be compared with other Troponin methodologies. Patients with high levels of Biotin oral intake (i.e >5mg/day) may have falsely decreased Troponin levels. Samples collected within 8 hours of biotin intake may require additional information for diagnosis. Basic Metabolic Panel w/ Reflex to MGon 53-38-1476Qhnxv gap [Moles/Vol]7 mmol/L Low9 - 17 mmol/LMProteus Agilityy [facility] Phone: bun/Cre Ehbzt06GaaqVxdfj Health Work Phone: calcium [Mass/Vol]8.9 mg/dL8.6 - 10.4 mg/dLMercy Health St. Rita'S Medical CenterLinkua Phone: Khloride [Moles/Vol]107 mmol/L98 - 107 mmol/LMIO.com Phone: GO2 [Moles/Vol]26 mmol/L20 - 31 mmol/LMercy [employer] Work Phone: creatinine [Mass/Vol]0.72 mg/dL0.50 - 0.90 mg/dLMercy Health St. Rita'S Medical CenterArkansas World Trade Center Work Phone: GFR >60>60 mL/minMercy Health St. Rita'S Medical CenterArkansas [facility] Work Phone: GFR Non->60>60 mL/[address]Mer[address] Rita'S Medical CenterArkansas World [facility] Center Work Phone: Glucose [Mass/Vol]96 mg/dL70 - 99 mg/dLMercy Health St. Rita'S Medical CenterArkansas [facility] Center Work Phone: Interpretation and review of laboratory results AbnormalMercy Health St. Rita'S Medical CenterArkansas [facility] Work Phone: potassium [Moles/Vol]4.2 mmol/L3.7 - 5.3 mmol/LMselect medical specialty hospital - [facility]umbully [employer] Work Phone: sodium [Moles/Vol]140 mmol/L135 - 144 mmol/LMregional medical center [employer] Work Phone: Urea nitrogen [Mass/Vol]22 mg/dL8 - 23 mg/dLMercy Health St. Rita'S Medical CenterLinkua Phone: cBCon 41-38-5103Fzfrmsilsvx distribution width (RBC) [Ratio]13.2 %11.8 - 14.4 %[facility] HospitalEasyCopay Phone: Hematocrit (Bld) [Volume fraction]34.5 %Low36.3 - 47.1 %[facility] Phone: Hemoglobin (Bld) [Mass/Vol]11.0 g/dLLow11.9 - 15.1 g/dLDoctors Hospital [facility] Phone: Interpretation and review of laboratory results AbnormalMercy Health St. Rita'S Medical CenterLinkua Phone: MCH (RBC) [Entitic mass]29.6 pg25.2 - 33.[address] Rita[address] Medical CenterArkansas World Trade Center Work Phone: MCHC (RBC) [Mass/Vol]31.9 g/dL28.4 - 34.8 g/dLMercy Health St. Rita'S Medical CenterLinkua Phone: MCV (RBC) [Entitic vol]93.0 fL82.6 - 102.[address] Rita'S Medical CenterLinkua Phone: platelet mean volume (Bld) [Entitic vol]10.0 fL8.1 - 13.5 fLPlayDo Phone: platelets (Bld) [#/Vol]192 10*3/[employer] Phone: RBC (Bld) [#/Vol]3.71 10*6/uLLow3.95 - 5.11 m/[address]etMer[address] Rita'S Medical CenterLinkua Phone: WBC (Bld) [#/Vol]5.2 10*3/BoxxetMercy Health St. Rita'S Medical CenterLinkua Phone: WBC (Bld) [#/Vol]0.0 10*3/uL0.0 per [address] Rita'S Medical CenterLinkua Phone: eCHOCARDIOGRAM LIMITEDon [id number] CITY [facility] Transthoracic Echocardiography Report (TTE) Patient Name SPENCER Date of Study 04/18/2020 EVER Mckay Date of 1940 Gender Female Age 79 year(s) Race Room Number 0315 Height: 63 inch, 160.02 cm Corporate ID [id number] Weight: 163 pounds, 73.9 kg # Patient [id number] BSA: 1.77 m^2 BMI: 28.87 # kg/m^2 MR # [id number] [employer] Worker BayronRylee Interpreting Physician Alissa Marx Fellow Referring Nurse Practitioner Interpreting Referring Physician Alissa Marx Fellow Type of Study TTE procedure:2D Echocardiogram, Bubble Study. Procedure Date Date: 04/18/2020 Start: 02:58 PM Study Location: [facility] History / Tech. Comments: TIA, [...] ventricular size and systolic function. No significant wallmotion abnormalities were identified. Estimated LV EF >55 %. Right Atrium A saline contrast study was performed and showed no evidence of an interatrial communication. M-mode / 2D Measurements & Calculations: LVIDd:4.07 cm(3.7 - 5.6 cm) Diastolic Volume:67.27 ml LVIDs:3.03 cm(2.2 - 4.0 cm) Systolic Volume:27.88 ml IVSd:0.91 cm(0.6 - 1.1 cm) Aortic Root:3.1 cm(2.0 - 3.7 cm) LVPWd:0.9 cm(0.6- 1.1 cm) LA Dimension: 3.51 cm(1.9 - 4.0 cm) Fractional Shortenin.55 % AV Cusp Separation: 1.66 cm Calculated LVEF (%): 58.56 %[employer] Work Phone: e, [facility] Incoming Cardio Results From [employer] - 04/18/2020 6:12 PM EST [facility] Transthoracic Echocardiography Report (TTE) Patient Name SPENCER Date of Study 04/18/2020 EVER Mckay Date of 1940 Gender Female Age 79 year(s) Race Room Number 0315 Height: 63 inch, 160.02 cm Corporate ID [id number] Weight: 163 pounds, 73.9 kg # Patient Acct [id number] BSA: 1.77 m^2 BMI: 28.87 # kg/m^2 MR # [id number] [employer] Worker Rylee Verma Interpreting Physician Alissa Marx Referring Nurse Practitioner Interpreting Referring Physician Alissa Marx Type of Study TTE procedure:2D Echocardiogram, Bubble Study. Procedure Date Date: 04/18/2020 Start: 02:58 PM Study Location: [facility] History / Tech. Comments: TIA, [...] no evidence of an interatrial communication. Signature - - - - FINDINGS Left Ventricle Normal left ventricular [...] 1.66 cm Calculated LVEF (%): 58.56 % [facility] Work Phone: eKG 12 Leadon 06-93-4973Mtwwvq Thpt46BEBTpqtiSavalanche Phone: Y Xqar50ujmmajiStpmcKitchensurfing Phone: p-R Agdweozk213 [employer] Phone: Q-T Qoodyvsa436 [employer] Phone: QRS Dnrdkmet275 [employer] Work Phone: QTc Calculation (Bazett)422 [employer] Phone: R Rqrs56pruainqTpmsuKitchensurfing Phone: T Othe88yfhinvaQlzntThename.is Phone: Ventricular Bxcb51HNNObrlpSavalanche Phone: Normal sinus rhythm Cannot rule out Anterior infarct (cited on or before 28-JUN-2009) Abnormal ECG When compared with ECG of 28-JUN-2009 03:41, No significant change was found Confirmed by DHRUV CLIFFORD ([id number]) on 04/18/2020 8:42:07 [employer] Phone: edi, [facility] Incoming Ekg Results From [employer] [place] - 04/18/2020 8:42 AM EST Normal sinus rhythm Cannot rule out Anterior infarct (cited on or before 28-JUN-2009) Abnormal ECG When compared with ECG of 28-JUN-2009 03:41, No significant change was found Confirmed by MARCELINO CLIFFORD ([id number]) on 04/18/2020 8:42:07 [employer] Phone: Hemoglobin A1con 73-24-3928Ndiwyck [Mass/Vol]114 mg/dL PlayDo Phone: comment on above:The ADA and AACC recommend providing the estimated average glucose result to permit better patient understanding of their HBA1c result. HbA1c (Bld) [Mass fraction]5.6 %4.0 - 6.0 %PlayDo Phone: lipid panel - fastingon 65-99-4386Rwffvrbjcmr [Mass/Vol]153 mg/dL<200PlayDo Phone: comment on above: Cholesterol Guidelines: <200 Desirable 200-240 Borderline >240 Undesirable Cholesterol in HDL [Mass/Vol]78 mg/dL>40Mer[facility] St[facility]S Medical CenterLinkua Phone: comment on above: HDL Guidelines: <40 Undesirable 40-59 Borderline >59 Desirable Cholesterol in LDL [Mass/Vol]65 mg/dL0 - 130 mg/dLPlayDo Phone: comerkh on above: LDL Guidelines: <100 Desirable 100-129 Near to/above Desirable 130-159 Borderline >159 Undesirable Direct (measured) LDL and calculated LDL are not interchangeable tests. Cholesterol in VLDL [Mass/Vol]NOT REPORTED1 - 30 mg/dLPlayDo Phone: cholesterol.total/Cholesterol in HDL [Mass ratio]2 {ratio}<5MerLinkua Phone: Triglyceride [Mass/Vol]51 mg/dL<150PlayDo Phone: comtdik on above: Triglyceride Guidelines: <150 Desirable 150-199 Borderline 200-499 High >499 Very high Based on AHA Guidelines for fasting triglyceride, November 2011. Metabolic Panelon 32-91-7036QMH/1.73 sq M predicted among non-blacks MDRD (S/P/Bld) [Vol rate/Area]PlayDo Phone: comwxdj on above:Average GFR for 70 or more years old: 75 mL/min/1.73sq m Chronic Kidney Disease: <60 mL/min/1.73sq m Kidney failure: <15 mL/min/1.73sq m eGFR calculated using average adult body mass. Additional eGFR calculator available at: http://www.M-DAQ/multiple_crcl_2011.htm Stage 1: Some kidney damage normal GFR Stage 2: Mild kidney damage GFR 60-89 Stage 3: Moderate kidney damage GFR 30-59 Stage 4: Severe kidney damage GFR 15-29 Stage 5: Severe kidney damage GFR <15 ESRD - chronic treatment by dialysis or transplant APTTon 80-08-6814vRVE Coag (Bld) [Time]25.6 sMIO.com Phone: comment on above: IV Heparin Therapy Range: 62.0-94.0 CBC Auto Differentialon 46-08-0038Dblxpszbe (Bld) [#/Vol]0.03 10*3/[employer] Phone: basophils/100 WBC (Bld)1 %0 - 2 %PlayDo Phone: differential TypeNOT REPORTEDPlayDo Phone: eosinophils (Bld) [#/Vol]0.13 10*3/[employer] Phone: eosinophils/100 WBC (Bld)2 %1 - 4 %PlayDo Phone: erythrocyte distribution width (RBC) [Ratio]13.2 %11.8 - 14.4 %PlayDo Phone: Hematocrit (Bld) [Volume fraction]37.6 %36.3 - 47.1 % PlayDo Phone: Hemoglobin (Bld) [Mass/Vol]11.8 g/dLLow11.9 - 15.1 g/dLPlayDo Phone: Immature granulocytes (Bld) [#/Vol]0 %0Mer[facility]S Medical CenterLinkua Phone: Immature granulocytes (Bld) [#/Vol]10*3/[employer] Phone: Interpretation and review of laboratory results AbnormalMercy Health St. Rita'S Medical CenterLinkua Phone: lymphocytes (Bld) [#/Vol]1.41 10*3/[employer] Phone: Lymphocytes/100 WBC (Bld)23 %Low24 - 43 %PlayDo Phone: [phone] (RBC) [Entitic mass]29.1 pg25.2 - 33.[address] Rita'S Medical CenterLinkua Phone: [phone] (RBC) [Mass/Vol]31.4 g/dL28.4 - 34.8 g/dLMercy Health St. Rita'S Medical CenterLinkua Phone: [phone] (RBC) [Entitic vol]92.8 fL82.6 - 102.[address] Rita'S Medical CenterLinkua Phone: [phone] (Bld) [#/Vol]0.69 10*3/[employer] Phone: [phone]/100 WBC (Bld)11 %3 - 12 %PlayDo Phone: Platelet mean volume (Bld) [Entitic vol]10.8 fL8.1 - 13.[address] Rita'S Medical CenterLinkua Phone: [phone] (Bld) [#/Vol]210 10*3/[employer] Phone: [phone] (Bld) [#/Vol]NOT REPORTEDMercy Health St. Rita'S Medical CenterLinkua Phone: [phone] (Bld) [#/Vol]4.05 10*6/uL3.95 - 5.11 m/[employer] Phone: RBC morphology finding Nom (Bld)NOT REPORTEDMercy Health St. Rita'S Medical CenterLinkua Phone: Segmented neutrophils/100 WBC (Bld)63 %36 - 65 %PlayDo Phone: [phone] Absolute3.86Mer[facility] CenterLinkua Phone: WBC (Bld) [#/Vol]0.0 10*3/uL0.0 per [address] Rita'S Medical CenterLinkua Phone: WBC (Bld) [#/Vol]6.1 10*3/WilbrahamLinkua Phone: wBC MorphologyNOT SAINT [facility]OM[facility] RUTHERFORD HOSPITALPlayDo Phone: cT HEAD WO CONTRASTon [id number]: CT OF THE HEAD WITHOUT CONTRAST 04/17/2020 [...] abnormality of the visualized skull or soft tissues.PlayDo Phone: No acute intracranial abnormality. Results were sent to radiology results communication.PlayDo Phone: e, [facility] Incoming Radiant Results From [employer] - 04/17/2020 3:42 PM EST EXAMINATION: CT [...] Results were sent to radiology results communication. PlayDo Phone: cTA HEAD NECK W CONTRASTon [id number]: CTA OF THE HEAD AND NECK WITH CONTRAST 04/17/2020 5:04 pm: TECHNIQUE: CTA of the head and neck was performed with the administration of intravenous contrast. Multiplanar reformatted images are provided for review. MIP images are provided for review. Stenosis of the internal carotid arteries measured using NASCET criteria. Dose modulation, iterative reconstruction, and/or weight based a djustment of the mA/kV was utilized to reduce the radiation dose to as low as reasonably achievable. COMPARISON: MRI brain 04/17/2020 HISTORY: ORDERING SYSTEM PROVIDED HISTORY: Expressive aphasia TECHNOLOGIST PROVIDED HISTORY: Expressive aphasia Decision Support Exception->Emergency Medical Condition (MA) FINDINGS: CTA NECK: AORTIC ARCH/ARCH VESSELS: No dissection or arterial injury. No signifi cant stenosis of the brachiocephalic or subclavian arteries. [...] extra-axial fluid collection. The kevin-white differentiation is maintained.PlayDo Phone: etrevor, Johnie Incoming Radiant Results From [employer] - 04/17/2020 5:46 PM EST EXAMINATION: CTA [...] size. 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 PlayDo Phone: No large vessel occlusion or hemodynamic stenosis. 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.PlayDo Phone: comprehensive Metabolic Panelon 80-21-4677Nghbrop [Mass/Vol]4 g/dL3.5 - 5.2 g/dLMerArkansas World Trade Center Work Phone: albumin/Globulin [Mass ratio]1.4 {ratio}[facility] [employer] Work Phone: HLP [Catalytic activity/Vol]55 U/L35 - 104 U/LMercy [employer] Work Phone: HLT [Catalytic activity/Vol]13 U/L5 - 33 U/LMselect medical specialty hospital - trumbully [employer] Work Phone: anion gap [Moles/Vol]12 mmol/L9 - 17 mmol/LMercy [employer] Work Phone: HST [Catalytic activity/Vol]19 U/L<32Mer [employer] Work Phone: bilirubin Ql (U)0.39 mg/dL0.3 - 1.2 mg/dLDoctors Hospital [employer] Work Phone: bun/Cre Wuhun15RvbxGodux [employer] Work Phone: calcium [Mass/Vol]9.4 mg/dL8.6 - 10.4 mg/dLDoctors Hospital [employer] Work Phone: chloride [Moles/Vol]103 mmol/L98 - 107 mmol/LMercy [employer] Work Phone: cO2 [Moles/Vol]24 mmol/L20 - 31 mmol/LMercy [employer] Work Phone: creatinine [Mass/Vol]0.62 mg/dL0.50 - 0.90 mg/dLDoctors Hospital [employer] Work Phone: GFR >60>60 mL/minDoctors Hospital [facility]Will[facility] Work Phone: GFR Non->60>60 mL/minDoctors Hospital [facility] Work Phone: Glucose [Mass/Vol]92 mg/dL70 - 99 mg/dLDoctors Hospital [employer] Work Phone: Interpretation and review of laboratory results AbnormalDoctors Hospital [employer] Work Phone: potassium [Moles/Vol]3.7 mmol/L3.7 - 5.3 mmol/LMselect medical specialty hospital - [facility]umbully [facility] Phone: protein [Mass/Vol]6.9 g/dL6.4 - 8.3 g/dLMercy Health St. Rita'S Medical CenterLinkua Phone: sodium [Moles/Vol]139 mmol/L135 - 144 mmol/LMselect medical specialty hospital - [facility]umbully [facility] Phone: Urea nitrogen [Mass/Vol]23 mg/dL8 - 23 mg/dLMercy Health St. Rita'S Medical CenterLinkua Phone: Glucose, Whole Bloodon 49-77-2259Voternw [Mass/Vol]89 mg/dL74 - 100 mg/dLMercy Health St. Rita'S Medical CenterLinkua Phone: Glucose [Mass/Vol]68 mg/dLLow74 - 100 mg/dLMercy Health St. Rita'S Medical CenterLinkua Phone: Interpretation and review of laboratory results AbnormalMercy Health St. Rita'S Medical CenterLinkua Phone: MRI BRAIN WO CONTRASTon [id number]: MRI OF THE BRAIN WITHOUT CONTRAST 04/17/2020 4:41 pm TECHNIQUE: Multiplanar multisequenc e MRI of the brain was performed without [...] appears normal. The soft tissues demonstrateno acute abnormality.PlayDo Phone: edi, Mhpn Incoming Radiant Results From [employer] - 04/17/2020 5:13 PM EST EXAMINATION: MRI [...] parenchymal volume loss. Minimal chronic microvascular disease. PlayDo Phone: No acute intracranial abnormality. Minimal parenchymal volume loss. Minimal chronic microvascular disease.PlayDo Phone: Metabolic Panelon 33-42-6861FHL/1.73 sq M predicted among non-blacks MDRD (S/P/Bld) [Vol rate/Area]PlayDo Phone: comment on above:Average GFR for 70 or more years old: 75 mL/min/1.73sq m Chronic Kidney Disease: <60 mL/min/1.73sq m Kidney failure: <15 mL/min/1.73sq m eGFR calculated using average adult body mass. Additional eGFR calculator available at: http://www.LightningBuy.iCharts/multiple_crcl_2012.htm Stage 1: Some kidney damage normal GFR Stage 2: Mild kidney damage GFR 60-89 Stage 3: Moderate kidney damage GFR 30-59 Stage 4: Severe kidney damage GFR 15-29 Stage 5: Severe kidney damage GFR <15 ESRD - chronic treatment by dialysis or transplant POCT Glucoseon 87-77-7960Xbsadvr [Mass/Vol]68 mg/dLMercy Health St. Rita'S Medical CenterLinkua Phone: Interpretation and review of laboratory resultsNormal PlayDo Phone: QC OK?okMercy Health St. Rita'S Medical CenterLinkua Phone: [phone]-KMMrq 12-66-8785FUI Coag (PPP) [Relative time] 0.9 {INR}PlayDo Phone: compmco on above: Non-therapeutic Range: INR = 0.9-1.2 Therapeutic Range: Moderate Anticoagulant Intensity: INR = 2.0-3.0 High Anticoagulant Intensity: INR = 2.5-3.5 PT Coag (PPP) [Time]12.4 sMselect medical specialty hospital - trumbullEasyCopay Phone: Troponinon 05-08-1967Vuemlhimllanut and review of laboratory resultsAbnoNovant Health Mint Hill Medical CenterLinkua Phone: Troponin I.cardiac [Mass/Vol]NOT REPORTEDMercy Health St. Rita'S Medical CenterLinkua Phone: Troponin T.cardiac [Mass/Vol]NOT REPORTED<0.03 ng/mL [facility] HospitalEasyCopay Phone: Troponin, High Uxfdmtdtqqj33 ng/LHigh0 - 14 ng/LMselect medical specialty hospital - trumbullEasyCopay Phone: comment on above: High Sensitivity Troponin values cannot be compared with other Troponin methodologies. Patients with high levels of Biotin oral intake (i.e >5mg/day) may have falsely decreased Troponin levels. Samples collected within 8 hours of biotin intake may require additional information for diagnosis. Urinalysis with Micro[employer] [id number], UANOT REPORTEDNonKettering Health Greene MemorialEasyCopay Phone: bacteria, UATRACEAbnormalSan Carlos Apache Tribe Healthcare CorporationEasyCopay Phone: bilirubin UrineNegativeNEGATIVEMercy Health Work Phone: casts UANOT REPORTED/LPFMercy Health Work Phone: color, UAYELLOWYELLOWMercy Health Work Phone: crystals, UANOT REPORTEDNone /HPFMercy Health Work Phone: epithelial Cells UA0 TO 2[facility] Work Phone: Glucose, UrNegativeNEGATIVEMercy Health Work Phone: Interpretation and review of laboratory results AbnormalMercy Health Work Phone: Ketones Ql (U)NegativeNEGATIVEMercy Health Work Phone: leukocyte esterase Test strip Ql (U)NegativeNEGATIVE [facility] Work Phone: Mucus, UATRACEAbnormalNoneMercy Health Work Phone: Nitrite, UrineNegativeNEGATIVEMercy Health Work Phone: Other Observations UANOT REPORTEDNOT REQ.[facility] Work Phone: pH, UA6.5[facility] Work Phone: protein (U) [Mass/Vol]NegativeNEGATIVEMercy Health Work Phone: rBC (U) [#/Vol]NoneMercy Health Work Phone: renal Epithelial, UANOT REPORTED0 /HPFMercy Health Work Phone: specific [place]std[place], UA<1.005LowMercy Health Work Phone: Trichomonas, UANOT REPORTEDNoneMercy Health Work Phone: Turbidity UACLEARCLEARMercy Health Work Phone: Urinalysis CommentsNOT REPORTEDMercy Health Work Phone: Urine HgbNegativeNEGATIVEMercy Health Work Phone: Urobilinogen, UrineNormalNormalMercy Health Work Phone: WBC, UANoneMercy Health Work Phone: Yeast, UANOT REPORTEDNoneMercy Health Work Phone: -[facility] Work Phone: Urine Drug Screenon 89-11-1108Osylqfstlqg Screen, Ur NegativeNEGATIVEMercy Health Work Phone: Uarbiturate Screen, UrNegativeNEGATIVEMercy Health Work Phone: Penzodiazepine Screen, UrineNegativeNEGATIVEMercy Health Work Phone: Vuprenorphine UrineNegativeNEGATIVEMercy Health Work Phone: cannabinoid Scrn, UrNegativeNEGATIVEMercy Health Work Phone: cocaine Metabolite, UrineNegativeNEGATIVEMercy Health Work Phone: MDMA, UrineNOT REPORTEDNEGATIVEMercy Health Work Phone: Methadone Screen, UrineNegativeNEGATIVEMercy Health Work Phone: Methamphetamine, UrineNegativeNEGATIVEMercy Health Work Phone: Opiates, UrineNegativeNEGATIVEMercy Health Work Phone: Oxycodone Screen, UrNegativeNEGATIVEMercy Health Work Phone: Qhencyclidine, UrineNegativeNEGATIVEMercy Health Work Phone: Yropoxyphene, UrineNegativeNEGATIVEMercy Health Work Phone: Test InformationNOT REPORTEDMercy Health Work Phone: Tricyclic Antidepressants, UrineNegativeNEGATIVEMercy Health Work Phone: comment on above:Drug screen results are to be used for medical purposes only. All positive results are unconfirmed. Testing for employment or legal uses should be sent to a reference laboratory for confirmation. Vital Signs Date TimeVital SignValuePerforming SuokbqznyPflydxvb65-84-1030 05:02-0400 Diastolic blood mmplyoqv90 mm[Hg]Gee Baxter MD Work Phone: [facility]07-[facility]-2025 05:02-0400Heart rate60 /minGee Baxter MD Work Phone: [phone]07-11-2025 05:02-0400 Respiratory rate16 /minGee Baxter MD Work Phone: [phone] [place], [place] 8115207-11-2025 05:02-6032FpF0% (BldA) [Mass fraction]98 %Gee Baxter MD Work Phone: [facility]07-11-2025 05:02-0400Systolic blood tmtlcont453 mm[Hg]Gee Baxter MD Work Phone: [facility]07-11-2025 01:05-0400Body mass index (BMI) [Ratio]32.61 kg/o8PgevheyGee Baxter MD Work Phone: U[facility]07-11-2025 01:05-0400Body axyvkpgzuxd85.9 [degF]Gee Baxter MD Work Phone: J[facility]07-11-2025 01:05-0400Body hdpvap63.18 kgGee Baxter MD Work Phone: [facility]06-06-2025 06:30-0400Body paskjsueznz75.39 [degF]Levi Dorsey MD Work Phone: Xcn [facility]06-06-2025 06:30-0400Diastolic blood dfmtbewf99 mm[Hg]Levi Dorsey MD Work Phone: Bog [facility]06-06-2025 06:30-0400Heart rate64 /minChrisanita Dorsey MD Work Phone: [facility] [employer]06-06-2025 06:30-0400 Respiratory rate18 /minLevi Dorsey MD Work Phone: [facility] [employer]06-06-2025 06:30-5269UrN1% (BldA) [Mass fraction]96 %Levi Dorsey MD Work Phone: [facility] [employer]06-06-2025 06:30-0400Systolic blood mm[Hg]Levi Dorsey MD Work Phone: [employer]06-06-2025 04:10-0400Body mass index (BMI) [Ratio]31.5 kg/a8BheqrkrrkLeiv Dorsey MD Work Phone: [employer]06-06-2025 04:10-0400Body ynvqrm08.87 kgChfrank Dorsey MD Work Phone: [facility]06-04-2025 07:56-0400Body ftepja198.1 cmChrsaroj Dorsey MD Work Phone: [facility] [employer]02-16-2025 18:12-0500Diastolic blood ffdipeax22 mm[Hg]Gee Baxter MD Work Phone: [facility] [employer]02-16-2025 18:12-0500Heart rate70 /Viktor Baxter MD Work Phone: [facility] [employer]02-16-2025 18:12-0500 Respiratory rate14 /Viktor Baxter MD Work Phone: [facility] [employer]02-16-2025 18:12-5838TvU6% (BldA) [Mass fraction]99 %Gee Baxter MD Work Phone: [facility] [employer]02-16-2025 18:12-0500Systolic blood tsezuyux291 mm[Hg]Gee Baxter MD Work Phone: [facility] [employer]02-16-2025 15:54-0500Body ucmwloqpykj04.39 [degF]Gee Baxter MD Work Phone: [facility]12[facility]24 14:44-0500Body btocsuxyyek60.5 [degF]Gee Baxter MD Work Phone: [facility]12-13-2024 14:44-0500Diastolic blood zztzbreg61 mm[Hg]Gee Baxter MD Work Phone: [facility]12-13-2024 14:44-0500Heart rate79 /Viktor Baxter MD Work Phone: [facility]12-13-2024 14:44-0500 Respiratory rate16 /Viktor Baxter MD Work Phone: [facility]12-13-2024 14:44-2380UaG7% (BldA) [Mass fraction]99 %Gee Baxter MD Work Phone: [facility]12-13-2024 14:44-0500Systolic blood xpvilhne934 mm[Hg]Gee Baxter MD Work Phone: [facility]09-13-2022 19:45-0400Diastolic blood lenjgpre67 mm[Hg][facility] 19:45-0400 Heart rate56 /Wendy [facility]-13-2022 19:45-0400 Respiratory rate16 /minSeve Burris [facility]09-13-2022 19:45-0400 SaO2% (BldA) [Mass fraction]98 %Allie [facility]09-13-2022 19:45-0400Systolic blood wrltittr408 mm[Hg][facility]ie Bruris [facility] 10-21-2021 17:49-0400Body mass index (BMI) [Ratio]27.46 kg/m2Allie Burris [facility]09-13-2022 17:49-0400Body ixipfa42.84 kgAllie Burris [facility]08-28-2022 16:12-0400Diastolic blood hvarjnrr92 mm[Hg]Allie [facility]08-28-2022 16:12-0400Heart rate50 /Wendy Burris MD [facility]08-28-2022 16:12-0400Respiratory rate11 /minSeve Burris MD [facility]08-28-2022 16:12-9594ZsQ2% (BldA) [Mass fraction]100 % Allie Burris [facility]08-28-2022 16:12-0400Systolic blood pressure 145 mm[Hg]Allie [facility]ris [facility]08-28-2022 14:16-0400Body height 165.1 cmSeve Burris [facility]08-28-2022 14:16-0400Body mass index (BMI) [Ratio]24.96 kg/m2Allie Burris [facility]08-28-2022 14:16-0400 Body nnvhtyfltdl45.5 [degF]Allie [facility]ris [facility]08-28-2022 14:16-0400Body ymyquk58.04 kgAllie Burris [facility]07-28-2021 13:00-0400Body pmpcyroowqs03.7 [degF]Vernon Patino MD Work Phone: [facility] Work Phone: 1(709) 777-148707-28-2021 13:00-0400Diastolic blood yjffhapk55 mm[Hg] Vernon Patino MD Work Phone: [facility] Work Phone: 1(294) [phone] 13:00-0400Heart rate59 /Shefali Patino MD Work Phone: [facility] Work Phone: 1(245) 190-462607-28-2021 13:00-0400Respiratory rate16 /minVernon Patino MD Work Phone: [facility] Work Phone: 1(449) [phone] 13:00-6166ImF0% (BldA) [Mass fraction]98 % Vernon Patino MD Work Phone: [facility] Work Phone: 1(719) 818-627707-28-2021 13:00-0400Systolic blood mm[Hg] Vernon Patino MD Work Phone: [facility] Work Phone: 1(881) 472-634207-27-2021 11:30-0400Body kqpqyk784.1 cmAlisette Patino MD Work Phone: [phone] Work Phone: 1(872) [phone] 13:45-0400Body mass index (BMI) [Ratio] 26.96 kg/y8EkzvsvdefVernon Patino MD Work Phone: [facility] Work Phone: 1(550) 578-593807-26-2021 13:45-0400Body .48 kgAlehue Patino MD Work Phone: [facility] Work Phone: 1(936) [phone] 13:15-0400Diastolic blood vktkejvq97 mm[Hg] Acosta Mendoza MD Work Phone: [facility] Work Phone: 1([phone]528 13:15-0400Heart rate84 /Erica Mendoza MD Work Phone: [facility] Work Phone: 1(990) [phone] 13:15-0400Respiratory rate14 /Erica Mendoza MD Work Phone: [facility] Work Phone: 1(314) 513-888007-26-2021 13:15-8019PtM1% (BldA) [Mass fraction]95 % Acosta Mendoza MD Work Phone: [facility] Work Phone: 1(717) 439-437007-26-2021 13:15-0400Systolic blood kfbjbvek139 mm[Hg] Acosta Mendoza MD Work Phone: [facility] Work Phone: 1(583) 541-428807-26-2021 07:49-0400Body bzfjso339.1 Maykel Mendoza MD Work Phone: [facility] Work Phone: 1(892) 593-958407-26-2021 07:28-0400Body mass index (BMI) [Ratio] 25.63 kg/u8ZofkzuAcosta Mendoza MD Work Phone: [facility] Work Phone: 1(510) [phone] 07:28-0400Body lrrapg08.85 kgAcosta Mendoza MD Work Phone: [facility] Work Phone: 1(332) 216-794207-26-2021 07:07-0400Body mgvpwwglgah80.59 [degF] Acosta Mendoza MD Work Phone: [facility] Work Phone: 1(661) [phone] 17:16-0400Diastolic blood palvwzbf63 mm[Hg] Law Andes DO Work Phone: [facility] Work Phone: 1(318) 865-920904-25-2021 17:16-0400Heart rate66 /minJustin Andes DO Work Phone: [facility] Work Phone: 1(413) [phone] 17:16-5432EhJ1% (BldA) [Mass fraction]96 % Law Andes DO Work Phone: [facility] Work Phone: 1(816) 391-739004-25-2021 17:16-0400Systolic blood axswmtkq016 mm[Hg] Law Andes DO Work Phone: [facility] Work Phone: 1(530) [phone] 14:07-0400Body mass index (BMI) [Ratio] 28.32 kg/f0Wtwcvh Andes DO Work Phone: [facility] Work Phone: 1(791) 304-114004-25-2021 14:07-0400Body siccceqbslr62.29 [degF] Law Andes DO Work Phone: [facility] Work Phone: 1(376) 821-111204-25-2021 14:07-0400Body .84 kgJustin Andes DO Work Phone: [facility] Work Phone: 1(691) 999-541204-25-2021 14:07-0400Respiratory rate14 /minJuin Andes DO Work Phone: [facility] Work Phone: 1(192) [phone] 21:30-0400BP Ycuhinbat09 mm[Hg]Patrick [facility] Work Phone: 1(661) 625-758903-31-2021 21:30-0400BP Gjxxmzvn716 mm[Hg]Patrick MooreAr[facility] Work Phone: 1(435) 173-492303-31-2021 21:30-0400Pulse Hvyutwii842 %Patrick PerkinsEntertainment [employer] Work Phone: 1(716) [phone] 18:16-0400Pulse (Heart Rate)72 /minPatrick PerkinsEntertainment [employer] Work Phone: 1(690) [phone] 18:16-0400Respiratory Rate18 /minPatrick Mayen [facility] Work Phone: 1(990) 613-453603-31-2021 18:14-0400Body Eblwmsrumad09.3 [degF] Patrick MooreJolieBox Health Work Phone: 1(413) 257-711603-12-2021 11:30-0500BP Awfaigdhc31 mm[Hg]Dwight JasonDeclara Work Phone: 1(418) [phone] 11:30-0500BP Wkhtwgdn575 mm[Hg]Dwight OmaragnespaDeepFieldy [facility] Work Phone: 1(947) 363-301503-12-2021 11:30-0500Pulse (Heart Rate)68 /minMicelsa Smart DestinationsagnesSwapsee Health Work Phone: 1(881) [phone] 11:30-0500Respiratory Rate16 /minDwight Smish Phone: 1(341) 461-140703-12-2021 10:03-0500Pulse Pscpmzkg07 %Dwight Smish Phone: 1(338) 421-979803-12-2021 07:46-0500BMI (Body Mass Index)27.12 kg/m2 Dwight [employer] DestinationsagnesiCook[employer]tw Phone: 1(531) 419-621703-12-2021 07:46-0500Body Ssuiwnnelin49.2 [degF] Dwight GomeziCook.tw Phone: 1(834) 482-545803-12-2021 07:46-0500Body deouaz46.67 kgDwight Smish Phone: 1(587) [phone] 07:46-2515Julzhb770.6 cmMicmarion hospital [employer] Work Phone: Encounters Encounter DateEncounter TypeCare ProviderFacilityStart: 11-27-2024 End: 74-93-5291gylsxdbydzCZXJMYZJSJanie Khan [facility]Start: 11-27-2024 End: 11-58-9602Airxnrkjwm hospital visit by [facility] Vascular Room [facility] [place] Vascular LabComment on above:Speech disturbance, unspecified type; 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) ([facility])Start: 10-24-2024 End: 90-34-3773xswlsvhnsnMBPMWEO L VALONEMercy [facility] HospitalStart: 10-24-2024 End: 51-25-7983Tlfmsasrrg hospital visit by physicianGr[facility] Laboratory Schedule [facility] [employer] [place] LABComment on above:ArrivedStart: 10-02-2024 End: 31-16-3722gggfpkitmqIpsnbsh Vytautas Giedraitis MDFacility:[facility] [place] Start: 09-18-2024 End: 96-52-4197cwlswdyglhEginbvo Vytautas Giedraitis MDFacility:[facility] [place] Start: 08-18-2024 End: 70-08-0364Vratxkkda department patient visitGee Baxter MD Work Phone: [facility] Emergency DepartmentComment on above: General weakness (Primary Dx); Neck strain, initial encounterStart: 07-26-2024 End: 19-78-5482cqaebpwdydPDIBVon [facility] HospitalStart: 07-26-2024 End: 51-74-0000Nzjtbdmtho hospital visit by Terry Leigh [address] [place] [address] LABComment on above:Lower extremity edema; Lightheaded; Dizziness; History of TIA (transient ischemic attack); Cerebral arterial aneurysm; Essential hypertension; Mixed hyperlipidemia; TIA (transient ischemic attack); Complicated UTI (urinary tract infection)Thoracic spondylosis without myelopathy Start: 07-11-2024 End: 69-60-0355Kazpitzugt and management of inpatientChfrank Dorsey MD Work Phone: mthz [facility]ITALU MED SURGComment on above:Transient alteration of awareness (Primary Dx); Right ear pain; Complicated UTI (urinary tract infection); History of TIA (transient ischemic attack)Start: 05-29-2024 End: 04-18-6975xurgoulwcoSitoafs Vytautas Giedabdulaziz SEGOVIAFacility:[facility] [place] Start: 05-15-2024 End: 37-94-1033rnjymkchvmOTXZYZZ L [facility] HospitalStart: 05-15-2024 End: 57-57-8995Oibctyllwb hospital visit by Nikunj Ramos DO Work Phone: [facility] LABStart: 05-15-2024 End: 47-65-9222slasjqzjfrRgbdhfd Vytautas Giedraitis MDFacility:[facility] [place] Start: 04-17-2024 End: 09-28-3919rbqgrhtiavJiclpmj Vytautas Giedraitis MDFacility:[facility] [place] Start: 03-26-2024 End: 22-63-8142Vhpzwpbkp department patient visitGee Baxter MD Work Phone: [phone] [place] [address] Emergency DepartmentComment on above: Altered mental status, unspecified altered mental status type (Primary Dx); Abnormal CT scan; Urinary tract infection without hematuria, site unspecifiedStart: 03-20-2024 End: 44-72-6219bbcgoayetsVikrcsuKole Coopercility:DANIEL Guillen Start: 02-16-2024 End: 56-63-3048dklrmannflRZQTZ TEASELMvinny Nicolasfin HospitalStart: 02-16-2024 End: 71-55-1901Ymhgdmqnfa hospital [facility] Cat Scan [facility] CT ScanComment on above:Somatic dysfunction of lumbar region; Lumbar radiculopathyStart: 01-21-2024 End: 93-84-1912Onaouwfvb department patient visitGee Baxter MD Work Phone: [phone] [place] [address] Emergency DepartmentComment on above: Strain of lumbar region, initial encounter (Primary Dx)Start: 12-24-2023 End: 44-78-0077dwmgcatbnwNPKUYUO L VALDEJUANMercy Health St. Rita'S Medical Centercha [facility] HospitalStart: 12-24-2023 End: 00-53-8971Kmhdeeeciz hospital visit by Taiwo Kumar PTAMTHZ Physical TherapyComment on above:ArrivedStart: 12-20-2023 End: 97-48-6190ojictpbkldQSMJAHT RICHARDMercy Health St. Rita'S Medical Centercha [facility] HospitalStart: 12-20-2023 End: 53-06-8134Xahpmwaxta hospital visit by Bo Dela Cruz PTAMTHZ Physical TherapyComment on above:ArrivedStart: 12-17-2023 End: 84-32-3739klglebpxzxJWJFXVW L VALDEJUANMercy Health St. Rita'S Medical Centercha [facility] HospitalStart: 12-17-2023 End: 04-58-2876Xnqbgawrzi hospital visit by Keshav Ruiz PTMTHZ Physical TherapyComment on above:ArrivedStart: 12-13-2023 End: 03-23-5982gdoidwyqzkPGQWVPA [facility] MED[facility] CENTERDEJUANMercy Health St. Rita'S Medical Centercha [facility] HospitalStart: 12-13-2023 End: 68-89-7290Bnofsoobdz hospital visit by Bo Dela Cruz PTAMTHZ Physical TherapyComment on above:ArrivedStart: 12-10-2023 End: 09-10-6665hrctwrifekKVMTJMJ Goldy Bird [facility] HospitalStart: 12-10-2023 End: 64-92-9671Tfqnrnsdqr hospital visit by physicianMoraima Dela Cruz PTAMTHZ Physical TherapyComment on above:ArrivedStart: 12-06-2023 End: 31-55-8279edsmzpdqsdOSOZIHG Goldy RAMOSMercy Health St. Rita'S Medical Centercha [facility] HospitalStart: 12-06-2023 End: 80-96-8640Vciyjbtvob hospital visit by Taiwo Kumar PTAMTHZ Physical TherapyComment on above:ArrivedStart: 12-03-2023 End: 63-13-6825bnagrjnumfBGLXTJP Goldy RAMOSMercy Health St. Rita'S Medical Centercha [facility] HospitalStart: 12-03-2023 End: 02-85-1734Gwyawycvsg hospital visit by Bo Dela Cruz PTAMTHZ Physical TherapyComment on above:ArrivedStart: 11-29-2023 End: 19-81-7977Jzqvmkwiyj hospital visit by physicianMoraima Dela Cruz PTAMTHZ Physical TherapyComment on above:ArrivedStart: 11-26-2023 End: 26-63-7040Fkfaycyrdp hospital visit by physicianMoraima Dela Cruz PTAMTHZ Physical TherapyComment on above:ArrivedStart: 11-24-2023 End: 56-20-9235Hqhatojogq hospital visit by physicianMoraima Dela Cruz PTAMTHZ Physical TherapyComment on above:ArrivedStart: 11-12-2023 End: 92-33-2028Qxeeqkjsml hospital visit by physicianMoraima Dela Cruz PTAMTHZ Physical TherapyComment on above:ArrivedStart: 11-08-2023 End: 85-80-9867Erfnotibmo hospital visit by physicianMoraima Dela Cruz PTAMTHZ Physical TherapyComment on above:ArrivedStart: 2023 End: 63-54-1876Hdipyftgze hospital visit by physicianMoraima Dela Cruz PTAMTHZ Physical TherapyComment on above:ArrivedStart: 05-06-2023 End: 50-02-1883Jfagkxcrlf hospital visit by Taiwo Kumar PTAMTHZ Physical TherapyComment on above:ArrivedStart: 10-21-2021 End: 18-36-4357Lzzccttgn department patient visitSean [facility] EDComment on above:Elevated blood pressure reading (Primary Dx)Start: 10-15-2021 End: 15-90-1767Zmvneernpl hospital visit by physicianA[facility] Xr Dr Room 4NEHZ LaboratoryComment on above:Pain; SwellingStart: 10-10-2021 End: 66-07-6325Ffemtgdwdy hospital visit by [facility] MammographyComment on above:Breast cancer screening by mammogramStart: 10-05-2021 End: 89-91-8592Dkvinrjcr department patient visitSean [facility] EDComment on above:Dysarthria (Primary Dx); Acute cystitis without hematuriaStart: 07-22-2021 End: 22-12-3743Wvoznaeqop hospital visit by Nikunj Ramos DO Work Phone: mthz LaboratoryStart: 03-03-2021 End: 86-88-7930Hycsfnoyiw hospital visit by [facility] Vascular Imaging Room [facility] Vascular LabComment on above:Left leg swellingStart: 01-21-2021 End: 45-68-4506Otawkcugwo hospital visit by Taiwo Kumar [facility] Physical TherapyComment on above:ArrivedStart: 01-13-2021 End: 22-59-3844Dpahbbbbvs hospital visit by Cesar SarahNEHZ Physical TherapyComment on above:ArrivedStart: 01-06-2021 End: 57-67-8168Clvwyhxrgv hospital visit by Tesfaye Ferrer PTMZ Physical TherapyComment on above:ArrivedStart: 12-24-2020 End: 21-19-0490Ovsawdbicw hospital visit by Robi Palma PTMTHZ Physical TherapyComment on above:ArrivedStart: 12-23-2020 End: 19-56-1818Yiastzdfok hospital visit by Taiwo Kumar [facility]AN[facility] Physical TherapyComment on above:ArrivedStart: 12-17-2020 End: 05-35-1898Ikrvdyqrrb hospital visit by Tesfaye Ferrer PTMTHZ Physical TherapyComment on above:ArrivedStart: 12-10-2020 End: 71-86-8707Yjnwevikjf hospital visit by Cesar SarahMTHZ Physical TherapyComment on above:ArrivedStart: 09-02-2020 End: 58-09-6362Zevhksxmzf and management of inpatientCHARLES L VALONEKettering Health Hamiltontart: 09-02-2020 End: 55-47-5546Dzllmtoqta and management of inpatientAlexabella Patino MD Work Phone: stSA[facility] NSICUComment on above:Altered mental status, unspecified altered mental status type (Primary Dx)Start: 09-02-2020 End: 61-44-4009vrkcjjonyjNZTHC O IDATriHealth Bethesda North Hospitaltart: 09-02-2020 End: 60-55-7128Aieqcrhyfa hospital visit by Rob Mendoza MD Work Phone: [facility] Special ProceduresComment on above:Cerebral aneurysm; TGA (transient global amnesia)Start: 06-02-2020 End: 24-03-4896Amghhnquj department patient visitLaw Viral Work Phone: [facility] EDComment on above:Nausea vomiting and diarrhea (Primary Dx); Other complicated headache syndrome; DehydrationStart: 05-08-2020 End: 24-75-1160Vzopkcuxb department patient visitCinader Pandya Work Phone: [facility] EDComment on above:Essential hypertension (Primary Dx)Start: 04-17-2020 End: 62-26-7307Nckhtkyptu and management of inpatientMichael L JasonpatrickMTHAgnes [facility] MED SURGComment on above:TIA (transient ischemic attack) (Primary Dx) Procedures DateProcedureProcedure DetailPerforming ClinicianStart: 29-69-4536Otauoh scan extracranial art compl bi Azul Ruby MD Work Phone: start: 66-79-5070Yudahgxbzxx panelCharles L Valone DO Work Phone: Start: 00-25-8017Gqalz panelCharles L Valone DO Work Phone: Start: 74-56-6768Hvhbq of troponin quantitativeGee Baxter MD Work Phone: start: 97-63-9684Cthntrndjn microscopic onlyGee Baxter MD Work Phone: start: 09-30-0581Uzbxu dip stick/tablet rgnt auto w/o microscopyGee Baxter MD Work Phone: start: 08-18-2024 End: 98-37-6029Ms head/brain w/o contrast materialGee Baxter MD Work Phone: start: 38-12-0448Rhhopdhlopqsy metabolic panelGee Baxter MD Work Phone: start: 80-44-3569GEZOFYP, WHOLE BLOODGee Baxter MD Work Phone: start: 61-89-9177Kuammnjrqd microscopic onlyStsanford Ny MD Work Phone: Start: 94-50-2832Autqf dip stick/tablet rgnt auto w/o microscopyStsanford Ny MD Work Phone: Start: 07-26-2024 End: 07-60-3871Fvvdqhbwrqtdr metabolic panelSvictor hugo Ny MD Work Phone: Start: 15-19-7963HVIFN METABOLIC PANEL W/ REFLEX TO MG FOR LOW KMegan L Veronica FLATWORK FOLDER - AUDIO SPECIALIST Work Phone: Start: 08-90-9999Fpkql count complete auto&auto difrntl wbcMegan L Veronica FLATWORK FOLDER - AUDIO SPECIALIST Work Phone: Start: 81-64-8987Dkwmpv ecg 1-3 leads w/interpretation & reportUnknown Provider ResultStart: 27-44-4075IDETY METABOLIC PANEL W/ REFLEX TO MG FOR LOW KMegan L Veronica FLATWORK FOLDER - AUDIO SPECIALIST Work Phone: Start: 83-82-6958Ulvop count complete auto&auto difrntl wbcMegan Goldy Martin APRN - AUDIO SPECIALIST Work Phone: Start: 94-32-8094HOPUP METABOLIC PANEL W/ REFLEX TO MG FOR LOW KMegan Goldy Martin FLATWORK FOLDER - AUDIO SPECIALIST Work Phone: Start: 34-51-1162Yzumj count complete auto&auto difrntl wbcMemallory Martin APRN - AUDIO SPECIALIST Work Phone: Start: 07-11-2024 End: 38-28-3006Gnyiftkmdtepq metabolic panelChfrank Dorsey MD Work Phone: Start: 34-39-7687Ab head/brain w/o contrast material Levi Dorsey MD Work Phone: Start: 08-91-5723Qytbqhoryl exam chest 2 views Levi Dorsey MD Work Phone: Start: 07-11-2024 End: 92-68-2294Bvzztvk bacterial quanttative colony count urineMemallory Martin APRN - AUDIO SPECIALIST Work Phone: Start: 95-03-3397Lrmck dip stick/tablet rgnt auto w/o microscopyLevi Dorsey MD Work Phone: Start: 04-47-8336UBHQWPP, BLOOD 1Chrsaroj Dorsey MD Work Phone: Start: 98-92-5862Rea routine ecg w/least 12 lds i&r onlyLevi Dorsey MD Work Phone: Start: 88-07-7050Gmwlpswtmbt panelCharles L Valone DO Work Phone: Start: 52-80-3175Hftcg panelCharles L Valone DO Work Phone: Start: 25-77-9809Vmaxypmkil microscopic Billie Baxter MD Work Phone: start: 65-66-0733Hocxb dip stick/tablet rgnt auto w/o microscopyMeltunde Vee MD Work Phone: start: 72-56-6574Iezdtyvfrr exam chest single view Gee Baxter MD Work Phone: Start: 03-26-2024 End: 99-32-5924We head/brain w/o contrast materialGee Baxter MD Work Phone: Start: 03-26-2024 End: 38-68-3033Uuhagmfogaxrd metabolic panelGee Baxter MD Work Phone: Start: 79-87-5056Cxr routine ecg w/least 12 lds w/i&r Gee Baxter MD Work Phone: start: 15-39-2182HSNHCKN, WHOLE BLOODGee Baxter MD Work Phone: start: 26-81-7402Rv lumbar spine w/o contrast material Sharath Garcia DC Work Phone: Start: 69-43-2616Njzkq spine lumbosacral 2/3 views Gee Baxter MD Work Phone: Start: 05-16-8390Qzicnxtdlt microscopic onlyGee Baxter MD Work Phone: start: 10-20-0219Pmafo dip stick/tablet rgnt auto w/o microscopyGee Baxter MD Work Phone: start: 58-21-4663Wgc routine ecg w/least 12 lds w/i&r Allie Ray MDStart: 10-21-2021 End: 87-97-2676Vrydjubfybhur metabolic panelSean Ray MDStart: 10-15-2021 End: 42-94-1857Djfvq foot complete minimum 3 viewsTimothy D KistlerStart: 93-77-8457Lfmpd metabolic panel calcium totalTimothy D KistlerStart: 10-05-2021 Urnls dip stick/tablet reagent auto microscopySean Ray MDStart: 94-99-8802Es angiography neck w/contrast/noncontrastSean Ray MDStart: 34-33-4462GEUWL-19, RAPIDSean Ray MDStart: 28-84-5399Tcrvntpzzz exam chest single viewSeve Burris MD Start: 35-97-2549Tv head/brain w/o contrast materialSean Ray MDStart: 10-05-2021 End: 24-73-0075Vjxhdyznobjkv metabolic panelSean Ray MDStart: 14-18-9001Vsw routine ecg w/least 12 lds w/i&rSean Ray MDStart: 97-17-8302KMOSMVI, WHOLE BLOOD Allie Ray MDStart: 34-72-1106Dfuqlgljekn panelCharles L Valone DO Work Phone: Start: 12-50-2372Rgw-scan xtr veins unilateral/limited studyAli F Zurdo aMrx MD Work Phone: Start: 65-84-1472Xjzgq count hemoglobinTyradha Monteiro MD Work Phone: Start: 09-03-2020 End: 00-47-3626Evovp count hemoglobinTyradha Monteiro MD Work Phone: Start: 92-79-2066It head/brain w/o contrast material Jayme Morton MD Work Phone: Start: 63-75-4314JWHXIQSI PLATELET FRACTIONTyradha Monteiro MD Work Phone: Start: 69-02-2054IIOIO METABOLIC PANEL W/ REFLEX TO MG FOR LOW KVkenny Christie MD Work Phone: Start: 94-06-0981LJNCTIYO REJECTIONVarjoaquin Christie MD Work Phone: Start: 43-85-6584IGY VIDEO MONITORINGCovijay Peters MD Work Phone: Start: 56-41-9723MLLWF METABOLIC PANEL W/ REFLEX TO MG FOR LOW KCpatriciay Nely Peters MD Work Phone: Start: 75-45-9438Xnrwxqumch glycosylated z6dWxtzdah G Gondonatorow DO Work Phone: Start: 76-34-8105Agitq panelCovijay Peters MD Work Phone: Start: 67-39-2076ONZPTY PANELWilliam Devon Metz DO Work Phone: Start: 50-46-1836Nskretw blood reagent stripXiomara Lomax MD Work Phone: Start: 28-48-1633Ent brain brain stem w/o contrast materialRalf Christie MD Work Phone: Start: 88-16-7718Xf angiography neck w/contrast/noncontrastNicholkelsea Mcdonald MD Work Phone: Start: 13-56-0627Lfgcersz [Moles/volume] in Serum or PlasmaXiomara Lomax MD Work Phone: Start: 79-54-3586QMEWVHUAWI W/GFR POINT OF CAREXiomara Lomax MD Work Phone: Start: 29-13-3288Buez bld gluc mntr dev cleared fda spec home useXiomara Lomax MD Work Phone: Start: 60-30-5311Pskguosol [Moles/volume] in Serum or PlasmaXiomara Lomax MD Work Phone: Start: 60-63-2163Ptknky [Moles/volume] in Serum or PlasmaXiomara Lomax MD Work Phone: Start: 74-30-0141Eu head/brain w/o contrast material Law Andes DO Work Phone: Start: 50-54-3706QCCQR-19, RAPIDJustin Andes DO Work Phone: Start: 36-34-3929Rzuxl of lipaseJustin Andes DO Work Phone: Start: 02-80-2751NALXQ METABOLIC PANEL W/ REFLEX TO MG FOR LOW KJustin Andes DO Work Phone: Start: 25-69-9949Ffcssyq function panelJustin Andes DO Work Phone: Start: 43-75-6803Mmrnq of troponin quantitativeSyed Nely Cuellar Work Phone: Start: 06-41-3155Uenks of troponin quantitativeSyed A Polo Work Phone: Start: 87-17-3122Qtxwh count complete auto&auto difrntl wbcSyed Nely Cuellar Work Phone: Start: 84-65-5667Akzmnwudavcxc metabolic panelSyed Nely Cuellar Work Phone: Start: 27-30-8518YorjhucclldxrdsfSbr F O Ahmad Work Phone: Start: 06-99-7643AVMPQ METABOLIC PANEL W/ REFLEX TO MG FOR LOW KChristvasu Castellanos Sears Work Phone: Start: 28-59-3243Oohax count complete automated Marcelino Castellanos Puma Work Phone: Start: 62-37-1769Iriosqytgo glycosylated a1c Marcelino Castellanos Seanicole Work Phone: Start: 03-76-8785Jdjmi panelChristopher Lucia Sears Work Phone: Start: 91-41-9133Khnujk and language therapy regime Marcelino Castellanos Puma Work Phone: Start: 62-58-8298YAZJTNH, WHOLE BLOODMichael L FitzpatrickStart: 54-69-4529Yb angiography neck w/contrast/noncontrastMichсергей Winslow FitzpatrickStart: 20-35-1343Zbr brain brain stem w/o contrast materialMichael L FitzpatrickStart: 73-76-1175Huyv bld gluc mntr dev cleared fda spec home use Dwight Winslow FitzpatrickStart: 04-81-5522PXSLLCM, WHOLE BLOODMichael L Duffy Start: 81-02-7389Ilzq screen class list Danni Winslow FitzpatrickStart: 04-17-2020 Urnls dip stick/tablet reagent auto microscopyMichael L FitzpatrickStart: 71-31-5272Soj routine ecg w/least 12 lds i&r onlyMicelsa GomezpatrickStart: 38-52-9855PJJ REPORTHpf ScanningStart: 48-42-6226Gg head/brain w/o contrast materialMicelsa Pateltart: 27-31-6538Ruzwf of troponin quantitative Dwight MaystrickStart: 60-44-9967Puwop count complete auto&auto difrntl wbc Dwight aMystrickStart: 34-21-6879Elhrvwjdpowpo metabolic panelDwight GomezpatrickStart: 94-89-1918Wmoqktifdfb timeDwight GomezpatrickStart: 42-92-8207Yftvqgrwbbvyom time partial plasma/whole bloodMicelsa NelsonDuffy Plan of Treatment DateCare ActivityDetailAuthorStart: 99-22-5312WAP test (Diabetes, CKD 3-4, OR last GFR 15-59)GFR test (Diabetes, CKD 3-4, OR last GFR 15-59)[facility]art: 49-10-0827Ccves panelLipidsBon [facility]: 88-60-1757GHA test (Diabetes, CKD 3-4, OR last GFR 15-59)GFR test (Diabetes, CKD 3-4, OR last GFR 15-59)[facility]: 45-69-1186CBX test (Diabetes, CKD 3-4, OR last GFR 15-59)GFR test (Diabetes, CKD 3-4, OR last GFR 15-59)[facility] HospitalStart: 70-30-7698IXK test (Diabetes, CKD 3-4, OR last GFR 15-59)GFR test (Diabetes, CKD 3-4, OR last GFR 15-59)[facility]: 93-76-8821WUA test (Diabetes, CKD 3-4, OR last GFR 15-59)GFR test (Diabetes, CKD 3-4, OR last GFR 15-59)[facility]: 05-15-2025 Lipid panelLipidsBon [facility]: 65-59-5843YKF test (Diabetes, CKD 3-4, OR last GFR 15-59)GFR test (Diabetes, CKD 3-4, OR last GFR 15-59)[facility]Start: 03-08-2025 End: 19-17-4072Qwugbsy encounter expoivmrj66/29/2026 2:20 PM EST Office Visit [facility] NEUROLOG[facility] Part of [address] [place] [address] Bryce Ruby MD [address] [place] [address] Dr [address] [place] [address] follow up; [facility] NE[facility] Part [facility] CareComment on above:follow up; Start: 02-12-2025 End: 24-71-5507Utjrwnl encounter rnsgewrjh40/05/2026 4:30 PM EST Appointment [facility] Mammography [address] [place] [address] screeningChillicothe Va [facility] Center MammographyComment on above:screening Start: 11-42-9914dxfvqpwctpBqxsxcukgePhzqo [facility] HospitalStart: 01-24-2025 End: 18-90-6673Uoaibmo encounter mpkcttoih82/17/2025 10:20 AM EST Office Visit [facility] CARDIOLOGY Part of [address] [address] Alissa Marx MD [address] [place] [address] [place] [address] 6 month [facility] Part [facility] on above:6 month follow upStart: 11-27-2024 End: 48-01-7642Ldvfcxz encounter eiyutjayc58/20/2025 11:20 AM EDT Office Visit [facility] NEUROLOG[facility] Part of [address] [place] [address] Bryce Ruby MD [address] [place] [address] Dr [address] [place] [address] 3 month follow up; [facility] Part [facility] on above:3 month follow up; TIAStart: 37-54-5403HUB test (Diabetes, CKD 3-4, OR last GFR 15-59)GFR test (Diabetes, CKD 3-4, OR last GFR 15-59)[facility]: 43-39-6531Mactx panelLipidsBON [facility]: 72-37-9188EJCXD-19 Vaccine ( season)COVID-19 Vaccine ( season)[facility]: 44-53-2985Csdosefhu vaccinationBon [facility]: 08-28-2024 End: 87-37-1385Gmzpmgx encounter xnugfthtj44/21/2025 8:40 AM EDT Office Visit [facility] Part [address] [place] [address] Bryce Ruby MD [address] [place] [address] Dr [address] [place] [phone] History of [facility] Part [facility] on above:History of TIAStart: 07-28-2024 End: 78-05-4448UUS W Auto Differential panel - BloodCBC with Auto Differential Lab Routine Complicated UTI (urinary tract infection) Expected: 07/28/2024, Expires: 07/14/2025on [facility] on above:Expected: 07/28/2024, Expires: 07/14/2025Start: 07-28-2024 End: 23-51-3896Olaksqnynfmeg metabolic 2000 panel - Serum or PlasmaComprehensive Metabolic Panel Lab Routine Complicated UTI (urinary tract infection) Expected: 07/28/2024, Expires: 07/14/2025on [facility] on above: Expected: 07/28/2024, Expires: 07/14/2025Start: 07-28-2024 End: 39-12-4893Pgzmiyi, UrineCulture, Urine Microbiology Routine Complicated UTI (urinary tract infection) Expected: 07/28/2024,Expires: 07/14/2025on [facility] HospitalComment on above:Expected: 07/28/2024, Expires: 07/14/2025Start: 07-28-2024 End: 35-21-7586Xkaejrztmx with Reflex to CultureUrinalysis with Reflex to Culture Lab Routine Complicated UTI (urinary tract infection) Expected: , Expires: 07/14/2025on [facility] HospitalComment on above:Expected: 07/28/2024, Expires: 07/14/2025Start: 07-19-2024 End: 55-40-5555Fvprptd encounter evfuqufpr64/11/2025 9:00 AM EDT Office Visit [facility] CARDIOLOGY [address] [address] Apurva Vu, FLATWORK FOLDER - AUDIO SPECIALIST [address] [place] [phone] [facility] CenterComment on above:6 monthStart: 05-08-2024 End: 89-54-5778Lagpzmm encounter luutnbmol55/31/2025 2:20 PM EDT Office Visit [address] [address] Alissa Marx MD [address] [place] [address] [place] [address] C[facility]OLOGY [facility] on above:6 monthStart: 05-07-2024 COVID-19 Vaccine ( season)COVID-19 Vaccine ( season)[facility] HospitalStart: 60-51-5952Mxeff panelLipidsBON [facility] Start: 29-37-3723FUPSN-19 Vaccine ( season)COVID-19 Vaccine ( season)[facility]: 48-84-3737Okbqli Wellness Visit (Medicare Advantage)Annual Wellness Visit (Medicare Advantage)[facility]Start: 12-24-2023 End: 14-80-2300Cdnosqm encounter lvsoocikk43/15/2024 1:00 PM EST Appointment [facility] Physical Therapy [address] [place], [place] [phone] Quincy Kumar PTAMTHZ Physical TherapyStart: 12-20-2023 End: 18-35-1443Hsecnxt encounter zqpbegfxk43/11/2024 1:15 PM EST Appointment [facility] Physical Therapy [address] [place], [place] [phone] Moraima Dela Cruz PTAMTHZ Physical TherapyStart: 12-17-2023 End: 17-53-9221Zeibxzh encounter arhazxuks82/08/2024 1:00 PM EST Appointment [facility] Physical Therapy [address] [place], [place] [phone] Dario Ruiz, PT UPOCMTHZ Physical TherapyComment on above:UPOCStart: 12-13-2023 End: 82-14-2297Wxywlrz encounter tpdjmaffk72/04/2024 1:15 PM EST Appointment [facility] Physical Therapy [address] [place], [place] [phone] Moraima Dela Cruz PTAMTHZ Physical TherapyStart: 12-10-2023 End: 63-26-6687Sjaqarc encounter rohgeqwvv38/01/2024 1:30 PM EDT Appointment [facility] Physical Therapy [address] [place], [place] [phone] Moraima Dela Cruz PTAMTHZ Physical TherapyStart: 12-06-2023 End: 39-15-3352Nqvqljs encounter fovnholas64/28/2024 1:15 PM EDT Appointment [facility] Physical Therapy [address] [place] [address] Quincy Kumar PTAMTHZ Physical TherapyStart: 12-03-2023 End: 14-88-8252Fxswnhe encounter /25/2024 1:00 PM EDT Appointment [facility] Physical Therapy [address] [place] [address] Moraima Dela Cruz PTAMTHZ Physical TherapyStart: 11-29-2023 End: 52-95-3976Zpaytne encounter hohjwkloj25/21/2024 2:00 PM EDT Appointment [facility] Physical Therapy [address] [place] [address] Moraima Dela Cruz PTAMTHZ Physical TherapyStart: 11-26-2023 End: 90-26-9034Lkhzizr encounter procedureMTHZ Physical TherapyComment on above: UPOCStart: 11-24-2023 End: 55-57-4338Xomdgqt encounter qpouphnnw06/16/2024 1:15 PM EDT Appointment [facility] Physical Therapy [address] [place], [place] [phone] Moraima Dela Cruz PTAMTHZ Physical TherapyStart: 11-22-2023 End: 92-65-4652Hydshih encounter lstpbrloz87/14/2024 1:15 PM EDT Appointment [facility] Physical Therapy [address] [place] [address] Moraima Dela Cruz PTAMTHZ Physical TherapyStart: 11-19-2023 End: 72-45-2008Ssqqvho encounter adhmdvchu56/11/2024 1:00 PM EDT Appointment [facility] Physical Therapy [address] [place] [address] Moraima Dela Cruz PTAMTHZ Physical TherapyStart: 11-17-2023 End: 53-73-8548Gdjxexb encounter qmtbjfoys62/09/2024 1:00 PM EDT Appointment [facility] Physical Therapy [address] [place] [address] Moraima Dela Cruz PTAMTHZ Physical TherapyStart: 11-15-2023 End: 88-76-9780Pbtjfdh encounter nawjsjxaa97/07/2024 1:15 PM EDT Appointment [facility] Physical Therapy [address] [place] [address] Moraima Dela Cruz PTAMTHZ Physical TherapyStart: 11-12-2023 End: 44-75-1851Qpdeiok encounter /04/2024 1:00 PM EDT Appointment [facility] Physical Therapy [address] [place] [address] Moraima Dela Cruz PTAMTHZ Physical TherapyStart: 11-10-2023 End: 11-67-8301Wybfcsz encounter tmgpweatf75/02/2024 1:15 PM EDT Appointment [facility] Physical Therapy [address] [place] [address] Moraima Dela Cruz PTAMTHZ Physical TherapyStart: 11-08-2023 End: 49-16-5367Nwumczz encounter rbmbqawxi07/30/2024 1:15 PM EDT Appointment [facility] Physical Therapy [address] [place] [address] Moraima Dela Cruz PTAMTHZ Physical TherapyStart: 10-25-2023 End: 81-38-4328Dafliuh encounter tbpinslyj77/16/2024 2:20 PM EDT Office Visit [facility] CARDIOLOGY Part [address] [address] Alissa Marx MD [address] [place] [phone] [facility] Part [facility] CareComment on above:6 monthStart: 10-10-2023 COVID-19 Vaccine ( season)COVID-19 Vaccine ( season)[facility]Start: 09-68-2203Pwhpuumfw vaccinationFlu vaccine (#1)[facility]ENTERStart: 06-09-2023 End: 28-58-1473Boqzsiw encounter dymhuyela73/01/2024 6:30 PM EDT Appointment [facility] Mammography [address] [place], [place] [phone] self referral, julián w ptMProtestant [facility] MammographyComment on above:self referral, julián w ptStart: 06-03-2023 End: 11-74-4965Flvgucz encounter npxgxvrit08/25/2024 12:30 PM EDT Appointment [facility] Physical Therapy [address] [place] [phone] Jennifer Carrillo, ROMAN MEDICAREMTHZ Physical TherapyComment on above:MEDICARE Start: 05-27-2023 End: 38-50-6356Easqzzj encounter taufrazzz19/18/2024 12:30 PM EDT Appointment [facility] Physical Therapy [address] [place] [address] Quincy Kumar PTAMTHZ Physical TherapyStart: 05-24-2023 End: 63-43-0007Amwpkgl encounter pcqijpljd13/15/2024 12:30 PM EDT Appointment [facility] Physical Therapy [address] [place] [address], [place] [address] Quincy Kumar PTAMTHZ Physical TherapyStart: 05-21-2023 End: 76-61-3094Tprzgxu encounter ptveicldw43/12/2024 1:00 PM EDT Appointment [facility] Physical Therapy [address] [place] [address], [place] [address] Quincy Kumar PTAMTHZ Physical TherapyStart: 05-20-2023 End: 52-61-6426Uyvfvog encounter eejnqkntw47/11/2024 3:30 PM EDT Appointment [facility] Physical Therapy [address] [place] [address], [place] [address] Quincy Kumar PTAMTHZ Physical TherapyStart: 05-14-2023 End: 21-82-5903Yupbadv encounter akwaofecx98/05/2024 2:15 PM EDT Appointment [facility] Physical Therapy [address] [place] [address], [place] [address] Jennifer Carrillo, PTMTHZ Physical TherapyStart: 05-13-2023 End: 75-86-2843Fymgxdb encounter blwzrmagw28/04/2024 3:30 PM EDT Appointment [facility] Physical Therapy [address] [place] [address] Quincy Kumar, PTAMTHZ Physical TherapyStart: 34-15-3839Pbhcdz Wellness Visit (Medicare)Annual Wellness Visit (Medicare)[facility]: 29-58-1178DPMPY-19 Vaccine ( season)COVID-19 Vaccine ( season)[facility]: 80-11-6833Gkjtwemh vaccine (3 of 3) Shingles vaccine (3 of 3)[facility]: 16-11-3823Snuvotmyy vaccinationFlu vaccine (#1)[facility]: 58-89-8170Wkuij panel LipidsBON [facility]: 01-05-2022 End: 51-54-5940Fubxiij encounter cillcumuy83/28/2022 Office Visit Neurology Bryce Ruby MD [address], [phone] [facility]: [facility]10[facility]2021 End: 46-26-4434Wshddlb encounter ilsbmplks51/02/2022 Appointment [facility] MammographyStart: 47-83-4844Uwrdjudgn vaccinationBON [facility]ENTERStart: 10-06-2021 End: 07-58-7486Hphl 2d w doppler w color w contrastEcho 2d w doppler w color w contrast Echocardiography Routine Dysarthria Expected: 10/06/2021, Expires: 10/05/2022[facility] Work Phone: comment on above:Expected: 10/06/2021, Expires: 10/05/2022Start: 13-74-8727Rzwrzdqezh measurementCreatinine monitoringMercy Health Work Phone: start: 48-63-7834Iggtvbilw monitoringPotassium monitoringMercy Health Work Phone: start: 07-16-5858Lledh panelMer HealthStart: 08-63-8250Fjheizioht measurementCreatinine monitoringMercy Health Work Phone: start: 45-08-7279Cagrhrjor monitoringPotassium monitoringMercy Health Work Phone: start: 27-22-0392Uddfqvejbg measurementCreatinine monitoringMercy Health Work Phone: start: 54-71-2227Naqtxkzzx monitoringPotassium monitoringMercy Health Work Phone: start: 47-78-6396Pycypqlkik measurementCreatinine monitoringMercy Health Work Phone: start: 26-45-1399Sgkus panelLipid screenMercy Health Work Phone: start: 40-00-3110Evocvjpgy monitoringPotassium monitoringDoctors Hospital PlumWillow Work Phone: start: 03-03-2021 End: 62-47-9524Duaniyc encounter procedureMER[facility] Part [facility] Connecticuttart: 29-05-9967YNMUY-19 Vaccine (2 - Pfizer series)COVID-19 Vaccine (2 - Pfizer series)[facility]: 02-04-2021 End: 40-09-7424Sovikwt encounter bklnwxhsa81/28/2021 Appointment Physical Therapy Ford Sarah Physical TherapyStart: 02-03-2021 End: 65-79-9819Lgvgcez encounter sguumtxqe68/27/2021 Appointment Physical Therapy Darlin Ferrer PTMTHZ Physical TherapyStart: 01-28-2021 End: 70-46-2361Mgprgmv encounter scjckjuzo20/21/2021 Appointment Physical Therapy [facility] Physical TherapyStart: 01-27-2021 End: 14-76-8328Wdolsud encounter ffakuuxrk29/20/2021 Appointment Physical Therapy Darlin Ferrer PTMTHZ Physical TherapyStart: 01-21-2021 End: 22-30-6105Ezrtdwm encounter cyfnllvve83/14/2021 Appointment Physical Therapy Quincy Kumar PTAMTHZ Physical TherapyStart: 01-20-2021 End: 84-24-3970Jijonzp encounter ytryoraxj99/13/2021 Appointment Physical Therapy [facility] Physical TherapyStart: 01-14-2021 End: 17-80-8931Muybwkq encounter /07/2021 Appointment Physical Therapy [facility] Physical TherapyStart: 01-13-2021 End: 11-11-7457Tctkpmg encounter vnilsdpvf89/06/2021 Appointment Physical Therapy [facility] Physical TherapyStart: 01-06-2021 End: 72-43-5830Uxddabt encounter fehdyjcno63/29/2021 Appointment Physical Therapy Darlin Ferrer PTMTHZ Physical TherapyStart: 12-31-2020 End: 91-14-6014Ohsjdde encounter tjetoldth47/23/2021 Appointment Physical Therapy Quincy Kumar, PTAMTHZ Physical TherapyStart: 12-30-2020 End: 95-62-4127Fdvrije encounter procedureMER[facility] Part [facility]cticuttart: 12-24-2020 End: 97-28-9478Wiqjbof encounter procedureMTHZ Physical TherapyStart: 12-23-2020 End: 17-07-8066Pmeimso encounter ttglyrlmm92/15/2021 Appointment Physical Therapy Quincy Kumar, PTAMTHZ Physical TherapyStart: 12-17-2020 End: 01-92-6578Erpivvp encounter cwvbbdfue06/09/2021 Appointment Physical Therapy Darlin Ferrer, PTMTHZ Physical TherapyStart: 12-09-2020 End: 34-32-3103Ycdowzj encounter yydpftzti47/01/2021 Office Visit Neurology Xiomara Lomax MD [address] [facility] [address] [place], [place] [phone] [facility] NeuroscienceStart: 07-26-1234Sydnukcml vaccinationWhite HospitalStart: 10-04-2020 End: 05-08-2362Szsrmrx encounter /27/2021 Office Visit Neurology Ralf Christie MD [address] [facility] [place], [place] [phone] [facility] NeuroscienceStart: 08-19-2020 End: 24-09-9138Fpkrkqx encounter /12/2021 Office Visit Cardiology Alissa Marx MD [address] [place] [phone] [facility] CARDIOLOGY Part [facility]art: 06-24-2020 End: 08-86-9673Qioides encounter bokthkxrp28/17/2021 Office Visit Neurology Bryce Ruby MD [address] [place], [phone] [facility] NEUROLOG[facility] Part [facility] Hospitaltart: 58-40-8256NSZTN-19 Vaccine (2 - Moderna 2-dose series)COVID-19 Vaccine (2 - Moderna 2-dose series)[facility] Phone: start: 05-24-2020 End: 37-41-0148Hpaneo Visit05/24/2020 Office Visit Neurology Hudson Pittman MD [address] [facility] [address] [place], [place] [phone] [facility] NeuroscienceStart: 05-13-2020 End: 25-92-8649Iddrik Visit05/13/2020 Office Visit Cardiology Alissa Marx MD [address] [place] [address] [place] [address] [facility] CARDIOLOG[facility] Part of [facility] Hospitaltart: 05-06-2020 End: 69-25-5286Xojtwn Visit05/06/2020 Office Visit Cardiology Alissa Marx MD [address] [place] [address] [facility] CARDIOLOGY Part [facility]: 04-18-2020 End: 43-72-5796Xwtjvwga Continuous Cardiac Event MonitorLongterm Continuous Cardiac Event Monitor Cardiac Services Routine TIA (transient ischemic attack) E xpected: 04/18/2020, Expires: 04/18/2021[facility] Phone: comment on above:Expected: 04/18/2020, Expires: 04/18/2021tart: 18-20-9139Yluipbxtr vaccinationFlu vaccine (#1)[facility] Phone: start: 41-23-2843Terjbw Wellness Visit (AWV)Annual Wellness Visit (AWV)[facility] HospitalNeoGenomics Laboratoriesart: 68-01-9168Dsgejvwp Vaccine (2 of 3) Shingles Vaccine (2 of 3)[facility]: 81-48-3697Nftmfhsalerg 65+ years Vaccine (1 - PCV)Pneumococcal 65+ years Vaccine (1 - PCV)[facility]: 99-12-4466Emmjyxkglhoc 65+ years Vaccine (1 of 1 - PPSV23) Pneumococcal 65+ years Vaccine (1 of 1 - PPSV23)[facility]: 2001 Respiratory Syncytial Virus (RSV) or age 60 yrs+ (1 - 1-dose 60+ series)Respiratory Syncytial Virus (RSV) or age 60 yrs+ (1 - 1-dose 60+ series)[facility]: 03-14-4237WSaN/Tdap/Td vaccine (1 - Tdap) DTaP/Tdap/Td vaccine (1 - Tdap)[facility]: 68-30-9798Shhvtmgndrsm 50+ years Vaccine (1 of 2 - PCV)Pneumococcal 50+ years Vaccine (1 of 2 - PCV)[facility]: 19-60-0849Dsbytvgzu C screeningHepatitis C screenBON [facility]: 26-34-4433Thqzh screening for proteinDiabetic Alb to Cr ratio (uACR) testSentara [facility] Medical Center: 89-81-9536FWUPA-19 Vaccine (1)COVID-19 Vaccine (1)[facility] Work Phone: start: 26-67-9243EHXZR-19 Vaccine (1)COVID-19 Vaccine (1)[facility]: 34-51-2043Rsfuhunfoh ScreenDepression ScreenWhite Hospital Start: 76-11-0320Rajsjyqcqyaa 65+ years Vaccine (1 of 2 - PCV)Pneumococcal 65+ years Vaccine (1 of 2 - PCV)[facility]: 14-50-5646EASLL-19 Vaccine (1)COVID-19 Vaccine (1)[facility]: 88-06-9947Ougmsp Wellness Visit (AWV)Annual Wellness Visit (AWV)[facility]: 1940 Hepatitis C screeningHepatitis C [facility] End: 06-44-9300Opqlt Metabolic Panel w/ Reflex to MGBasic Metabolic Panel w/ Reflex to MG Lab Routine Daily for 5 Days starting 07/12/2024 until 07/16/2024, 3 completedBon Empowered CareersComment on above:Daily for 5 Days starting 07/12/2024 until 07/16/2024, 3 completedBlood Culture 1Blood Culture 1 Microbiology STAT 07/11/2024 10:15 PM EDTBPPDai End: 01-20-7578XFF W Auto Differential panel - BloodCBC auto differential Lab Routine Daily for 5 Days starting 07/12/2024 until 07/16/2024, 3 completedBon Empowered CareersComment on above:Daily for 5 Days starting 07/12/2024 until 07/16/2024, 3 completedCT Head WO contrastCT Head W/O Contrast Imaging CODE STROKE 08/18/2024 2:21 AM EDTBon Empowered CareersCTA Head vessels and Neck vessels W contrast IVCTA HEAD NECK W CONTRAST Imaging CODE STROKE 08/18/2024 2:16 AM EDTBon Empowered CareersCulture, Blood 2Culture, Blood 2 Microbiology STAT 07/11/2024 10:20 PM EDTBPPDai End: 89-35-5484Ogmbqgi, UrineBON [employer] Work Phone: comment on above:One Time for 1 Occurrences starting 10/05/2021 until 10/05/2021 End: 92-76-4950Wbzeizx, UrineBon Empowered CareersComment on above:Once for 1 Occurrences starting 03/26/2024 until 03/26/2024 End: 65-69-6779Rpqizop, UrineBon SecSolido Design AutomationComment on above:1 Occurrences starting 07/26/2024 until 07/26/2024EKG 12 LeadEKG 12 Lead ECG Routine 10/05/2021 2:23 PM EDTBAMSC Work Phone: eKG 12 LeadEKG 12 Lead ECG STAT 10/21/2021 5:01 PM EDT ShopitizeEKG 12 LeadEKG 12 Lead ECG STAT 03/26/2024 2:35 PM EST [employer] End: 79-43-3310Bzmxvaraos A1c/Hemoglobin.total in BloodBON [facility] Phone: Comment on above:Once for 1 Occurrences starting 07/22/2021 until 07/22/2021Intermittent pulse oximetryPulse Oximetry Spot Check Respiratory Care Routine As Needed until discontinued starting 09/02/2020[employer] Phone: comment on above:As Needed until discontinued starting 09/02/2020 End: 71-45-6387YV ANGIOGRAM CAROTID CEREBRAL BILATERALIR ANGIOGRAM CAROTID CEREBRAL BILATERAL Imaging Routine Cerebral aneurysm 1 Occurrences starting until 09/02/2020[employer] Phone: comment on above:1 Occurrences starting 09/02/2020 until 09/02/2020IR ANGIOGRAM CAROTID CEREBRAL BILATERALIR ANGIOGRAM CAROTID CEREBRAL BILATERAL Imaging Routine Cerebral aneurysm 09/02/2020 9:42 AM [email or web address] Phone: lAB SCANNED REPORTLAB SCANNED REPORT Lab Ordered: 09/04/2020[employer] Phone: comhvwq on above:Ordered: 09/04/2020 End: 16-41-2292Xmsaj panelBANNER MD [facility] Phone: comxyub on above:Once for 1 Occurrences starting 07/22/2021 until 07/22/2021 End: 02-87-4136Ahcfueig Continuous Cardia Event MonitorLongterm Continuous Cardia Event Monitor Cardiac Services Routine One Time for 1 Occurrences startin g 04/19/2020 until 04/19/2020[employer] Phone: comcjxi on above:One Time for 1 Occurrences starting 04/19/2020 until 04/19/2020 End: 61-57-3770EEI ESME DIGITAL SCREEN SELF REFERRAL W OR WO CAD [facility] Phone: Comment on above:1 Occurrences starting 10/10/2021 until 10/10/2021 End: 46-73-5301RZB LIMITED BRAINMRI LIMITED BRAIN Imaging STAT Once for 1 Occurrences starting 09/02/2020 until 09/02/2020[employer] Phone: comment on above:Once for 1 Occurrences starting 09/02/2020 until 09/02/2020MRI LIMITED BRAINMRI LIMITED BRAIN Imaging STAT 09/02/2020 11:34 AM EDKettering Health HamiltonEasyCopay Phone: Oxygen therapy [Minimum Data Set][employer] Phone: comupqx on above:Daily until discontinued starting 04/17/2020aily until discontinued starting 09/02/2020 End: 46-66-7428KXPDPJDM SPECIMENPREVIOUS SPECIMEN Lab Routine Once for 1 Occurrences starting 09/03/2020 until 09/03/2020[facility] CenterLink[facility] Phone: comment on above:Once for 1 Occurrences starting 09/03/2020 until 09/03/2020 End: 76-93-6523Qrcbbq and language therapy regimeSpeech Language Pathology (FIELD OPERATIONS MANAGER) eval and treat FIELD OPERATIONS MANAGER Routine One Time for 1 Occurrences starting 09/02/2020 until 09/02/2020[facility] Phone: comment on above:One Time for 1 Occurrences starting 09/02/2020 until 09/02/2020 End: 95-19-9912Aooxhjlks (T4) free [Mass/volume] in Serum or PlasmaT4, Free Lab Routine One Time for 1 Occurrences starting 08/18/2024 until 08/18/2024on Empowered CareersComment on above:One Time for 1 Occurrences starting 08/18/2024 until 08/18/2024Thyroxine (T4) free [Mass/volume] in Serum or Plasma T4, Free Lab STAT 08/18/2024 1:09 AM EDTBon Empowered Careers End: 25-33-3587NwpkftpmzqGur Bleachers Phone: Comment on above:Once for 1 Occurrences starting 05/15/2024 until 05/15/2024 End: 11-38-7565HY Heart TransesophagealEchocardiogram transesophogeal Echocardiography STAT One Time for 1 Occurrences starting 04/19/2020until 04/19/2020[facility] Phone: comment on above:One Time for 1 Occurrences starting 04/19/2020 until 04/19/2020 End: 06-42-8517KW Chest Single viewXR CHEST 1 VIEW Imaging STAT Once for 1 Occurrences starting 08/18/2024 until 5Bon [employer] [facility] CenterComment on above:Once for 1 Occurrences starting 08/18/2024 until 08/18/2024XR Chest Single viewXR CHEST 1 VIEW Imaging STAT 08/18/2024 2:22 AM EDTBon Empowered Careers End: 92-23-7055GD Thoracic spine 2 ViewsBon [employer] Work Phone: comment on above:1 Occurrences starting 07/26/2024 until 07/26/2024 Immunizations Immunization DateImmunizationNotesCare QvgtnlbrQdiashaa28-05-0378Tvffsoyid Vaccine, unspecified formulationMichael Smart DestinationsMiddlesboro ARH HospitalPlexx Sxpcov18-20-3772ecjjex vaccine, liveSanford Aberdeen Medical Centerl [facility] Work Phone: Payers DatePayer CategoryPayerPolicy [id number] 2025Medicare2015Private Health [id number]. [id number] 2002Medicare [id number] 1.2.840.570584.1.13.239.2.7.3.003[id number] 2.16.840.1.154373.3.57[id number] 2.16.840.1.359864.3.57[id number] 2.840.1.552028.3.57[id number] 2.840.1.235353.3.57[id number] 2.0.1.052696.3.57[id number] 2.840.1.894696.3.57[id number] 2..1.912603.3.57[id number] 2.0.1.915883.3.57[id number] 2.840.1.967363.3.57[id number] 2.0.1.956309.3.57[id number] 2.0.1.984836.3.57[id number] 2..1.051192.3.57[id number] 2.840.1.093380.3.57[id number] 2.840.1.541352.3.57[id number] 2.840.1.219943.3.579.2.[id number] 2.840.1.256546.3.57[id number] 2.16.840.1.965163.3.57[id number] 2.16.840.1.212928.3.579.[id number] 2.16.840.1.291347.3.579.2.16[id number] 2.16.840.1.733503.3.57[id number] 2.16.840.1.113107.3.57[id number] 2.16.840.1.346940.3.579.2.[id number] 2.16.840.1.894467.3.579.2.20712-91-2779Jnmncga38789215 2.16.840.1.135991.3.579.2.0[id number] 2.16.840.1.063191.3.579.2.72898-11-8490Euchwar73225144 2.16.840.1.409542.3.579.2.173 Social History DateTypeDetailFacilityStart: 04-19-2020 End: 37-53-3464Otkqejp smoking status NHISNever smokerMercy Health St. Rita'S Medical CenterArkansas World Trade CenterStart: 04-19-2020 End: 77-79-5184Qjtriot use and exposureNever usedMercy Health St. Rita'S Medical CenterLinkua Phone: start: 04-19-2020 End: 27-24-7674Edsveri intakeCurrent non-drinker of alcohol (finding)[facility] HospitalEasyCopay Phone: start: 99-99-5556Xdg Assigned At BirthNot on St. [facility] HospitalLinkua Phone: start: 09-25-2021 End: 15-08-8721Zrkpxxmx to SARS-CoV-2 (event)Not sureAnnapurna [employer]ace Work Phone: exposure to SARS-CoV-2 (event)YesWhite HospitalStart: 04-04-2023 End: 91-82-1584Cvptuie of Social functionVIRGINIA HOSPITAL CENTERStart: 04-04-2023 End: 98-20-7496LPP UtilitiesVIRGINIA HOSPITAL CENTERHas the Jiahe, gas, oil, or water company threatened to shut off services in your home in past 12MoNoBON ADENA FAYETTE MEDICAL CENTERHow often to you have a drink containing alcohol?NeverVIRGINIA HOSPITAL CENTERAverage Number of DrinksNot on fileVIRGINIA HOSPITAL CENTER (I/We) worried whether (my/our) food would run out before (I/we) got money to buy more.Never trueVIRGINIA HOSPITAL CENTERStart: 63-05-1960QlaPpgdnj (finding) [facility] Medical Equipment Procedure CodeEquipment CodeEquipment Original TextEquipment IdentifierDatesLens Iol Envista Mx60 25.0d - [id number]: 12-20-2017 Functional Status DateAssessmentResultFacilityBon Secours Mary Immac[facility] Hospital Clinical Notes 09-02-2020 to 08-18-2024 Note Date & LzbySlnlVomlylye02-69-2410 Hospital Discharge instructions* Discharge Instructions* Gee Baxter MD - 08/18/2024 4:46 AM EDT [...] chest pain or any other acute concerns * Attachments The following attachments cannot be sent through Care Everywhere. * Weakness: Generalized ([place] Ver[place]) * Cervical Strain ([place]) documented in this encounterBon [facility] History of Present illness Narrative* Moraima Dela Cruz, DENTAL INTERNSHIP - 07/14/2024 12:37 PM EDT Physical Therapy Facility/Department: [facility] MED [facility]G Daily Treatment Note NAME: Ever Palmer : 1940 Date of Service: 07/14/2024 Discharge Recommendations: Continue to assess pending progress, Home with Home health PT, Home with assist PRN, Subacute/[facility] Patient Diagnosis(es): The primary encounter diagnosis was Transient alteration of awareness. Diagnoses of Right ear pain, Complicated UTI (urinary tract infection), and History of TIA (transient ischemic attack) were also pertinent to this visit. Assessment Assessment: Pt amb 280 ft x1 with FWW and CGA/SBA, forward flexed posture, slow jovanna, shuffling gait pattern, path deviations, no LOB. Pt required VCs for safety and posture, fair carryover. Stairtraining 2 steps with R handrail and SPC. [...] awareness training;Verbal cues Base of Support: Widened Speed/Jovanna: Slow Gait Abnormalities: Shuffling gait;Path deviations Rail [...] Time Individual Concurrent Group Co-treatment Time In 54 Time Out 1012 Minutes 18 Moraima Dela Cruz PTA Cosigned by Dario Ruiz PT at 07/14/2024 12:49 PM EDT * Mariaelena Bob PTA - 07/14/2024 7:45 AM EDT Physical Therapy Facility/Department: [facility] MED [facility]G Daily Treatment Note NAME: Ever Palmer : 1940 Date of Service: 07/14/2024 Discharge Recommendations: Continue to assess pending progress, Home with Home health PT, Home with assist PRN, Subacute/[facility] Patient Diagnosis(es): The primary encounter diagnosis was Transient alteration of awareness. A diagnosis of Right ear pain was also pertinent to this visit. Assessment Assessment: Bed mobility:SBA. Transfers:CGA/SBA. Pt ambulated 392qnb3 with FWW and CGA for safety. Demoes [...] Walker, rolling Interventions: Safety awareness training;Verbal cues Speed/Jovanna: Slow Gait Abnormalities: Shuffling gait PT Exercises [...] Time Individual Concurrent Group Co-treatment Time In 0716 Time Out 0743 Minutes 27 Mariaelena Bob PTA Cosigned by Dario Ruiz PT at 07/14/2024 10:32 AM EDT * Victor M Ny MD - 07/14/2024 6:30 AM EDT Images from the original note were not included. [address], [place], [place], [address] Progress Note Date: 07/14/2024 Patient name: Ever [...] 1 tablet by mouth nightly 04/19/20 Eunice Leach APRN -KERRY lactulose (CEPHULAC) 10 g packet Take 1 [...] clubbing or edema DIAGNOSTICS: Laboratory Testing: See [facility] EMR for lab data Recent Results [...] mL IntraVENous 2 times per day Marnie Martin, FLATWORK FOLDER - AUDIO SPECIALIST 10 mL at 07/13/242207 sodium chloride flush 0.9 % injection 5-40 mL 5-40 mL IntraVENous PRN Marnie Martin, FLATWORK FOLDER - AUDIO SPECIALIST 0.9 % sodium chloride infusion IntraVENous PRN Marnie Martin, FLATWORK FOLDER - AUDIO SPECIALIST enoxaparin (LOVENOX) injection 40 mg 40 mg SubCUTAneous Daily Marnie Martin L, FLATWORK FOLDER - AUDIO SPECIALIST 40 mg at 07/13/24925 ondansetron (ZOFRAN-ODT) disintegrating tablet 4 mg 4 mg Oral Q8H PRN Marnie Martin, FLATWORK FOLDER - AUDIO SPECIALIST Or ondansetron (ZOFRAN) injection 4 mg 4 mg IntraVENous Q6H PRN Marnie Martin, FLATWORK FOLDER - AUDIO SPECIALIST acetaminophen (TYLENOL) tablet 650 mg 650 mg Oral Q6H PRN Phil Martinn L, FLATWORK FOLDER - AUDIO SPECIALIST 650 mg at 07/13/24 193 Or acetaminophen (TYLENOL) suppository 650 mg 650 mg Rectal Q6H PRN Marnie Martin L, FLATWORK FOLDER - AUDIO SPECIALIST polyethylene glycol (GLYCOLAX) packet 17 g 17 g Oral Daily PRN Marnie Martin L, FLATWORK FOLDER - AUDIO SPECIALIST aspirin EC tablet 81 mg 81 mg Oral Daily Marnie Martin, FLATWORK FOLDER - AUDIO SPECIALIST 81 mg at 07/13/24 09 atorvastatin (LIPITOR) tablet 40 mg 40 mg Oral Nightly Marnie Martin, FLATWORK FOLDER - AUDIO SPECIALIST 40 mg at 931 baclofen (LIORESAL) tablet 10 mg 10 mg Oral Nightly Veronica, Marnie L, FLATWORK FOLDER - AUDIO SPECIALIST 10 mg at 07/13/241930 lactulose (CHRONULAC) 10 GM/15ML solution 10 g 10 g Oral BID Veronica, Marnie L, FLATWORK FOLDER - AUDIO SPECIALIST metFORMIN (GLUCOPHAGE) tablet 500 mg 500 mg Oral Nightly Veronica, Marnie L, FLATWORK FOLDER - AUDIO SPECIALIST 500 mg at 07/13/241930 montelukast (SINGULAIR) tablet 10 mg 10 mg Oral Nightly Veronica, Marnie L, FLATWORK FOLDER - AUDIO SPECIALIST 10 mg at 07/13/241930 rOPINIRole (REQUIP) tablet 0.5 mg 0.5 mg Oral Daily Veronica, Marnie L, FLATWORK FOLDER - AUDIO SPECIALIST 0.5 mg at 07/13/242202 spironolactone (ALDACTONE) tablet 50 mg 50 mg Oral Daily Veronica, Marnie L, FLATWORK FOLDER - AUDIO SPECIALIST 50 mg at 07/13/24925 ASSESSMENT: Principal Problem: Complicated UTI (urinary tract infection) Active Problems: TGA (transient global amnesia) Type 2 diabetes mellitus, without long-term current use of insulin ([facility]) Hypertension Resolved Problems: * No resolved hospital [...] this chart was generated using voice recognition [employer] dictation software. Although every effort was made to ensure the accuracy of this automated art teacher, some errors in art teacher may have occurred. Victor M Ny MD 07/14/2024 6:33 AM * Ariella Amaral RN - 07/13/2024 6:24 PM EDT Chief Airport Guide at bedside to complete evening assessment. Upon entry to room, pt in chair, at bed side, respirations unlabored while on RA. Vitals obtained and assessment completed, see flow sheet for details. Pt denies needs from publicity writer at this time. Call light in reach. Care is ongoing. * Teo Aguilera - 07/13/2024 4:39 PM EDT Spiritual Services Interventions 0314/0314-01 07/13/2024 Teo Aguilera Ever Palmer 83 y.o. year old female Encounter Summary Encounter Overview/Reason: (P) Spiritual/Emotional Needs Service Provided For: (P) Patient Referral/Consult From: (P) Tammy Last Encounter : (P) 07/13/24 Complexity of Encounter: (P) Moderate Begin Time: (P) 1600 End Time : (P) 1615 Total Time Calculated: (P) 15 min Spiritual/Emotional needs Type: (P) Spiritual Support Assessment/Intervention/Outcome Assessment: (P) Calm Intervention: (P) Discussed belief system/anglican practices/jono, Discussed illness injury and it s impact Outcome: (P) Encouraged, Engaged in conversation * Marnie Cole PTA - 07/13/2024 2:19 PM EDT Physical Therapy Facility/Department: [facility]G Daily Treatment Note NAME: Ever Palmer : 1940 Date of Service: 07/13/2024 Discharge Recommendations: Continue to assess pending progress, Home with Home health PT, Home with assist PRN, Subacute/[facility] Patient Diagnosis(es): The encounter diagnosis was Transient alteration of awareness. Assessment Assessment: Transfers:CGA/Min A. Seated exercises B Le x20. Gait wiht WW 40ftx2,15ftx1, CGA for safety with slow jovanna noted. Activity Tolerance: Patient tolerated treatment well [...] Walker, rolling Interventions: Safety awareness training;Verbal cues Speed/Jovanna: Slow Gait Abnormalities: Shuffling gait PT Exercises [...] Ruiz PT at 07/13/2024 3:09 PM EDT * Marnie Cole PTA - 07/13/2024 11:17 AM EDT Physical Therapy Facility/Department: [facility] Daily Treatment Note NAME: Ever Palmer : 1940 Date of Service: 07/13/2024 Discharge Recommendations: Continue to assess pending progress, Home with Home health PT, Home with assist PRN, Subacute/[facility] Patient Diagnosis(es): The encounter diagnosis was Transient alteration of awareness. Assessment Assessment: Transfers: Min A x1 to WW. Reclined and seated exercises B LE x15. Gait wiht WW 15ftx1,Min A for safety. Pt. required frequent RB [...] upon arrival with eyes closed, responds when DENTAL INTERNSHIP entered, agreeable to therapy at this time. [...] Walker, rolling Interventions: Safety awareness training;Verbal cues Speed/Jovanna: Slow Gait Abnormalities: Shuffling gait PT Exercises [...] Ruiz PT at 07/13/2024 3:09 PM EDT * Eunice Richter APRN - CNP - 07/13/2024 6:46 AM EDT Progress Note SUBJECTIVE: Patient seen for [...] ml Output 600 ml Net 2445.37 ml Exam: GEN: Awake, alert and oriented to [...] intact SKIN: No rashes. No skin lesions. Diagnostic Data: Complete Blood Count: Recent Labs 07/11/24 2215 07/12/24 0500 07/13/24 0530 WBC 5.4 6.0 7.5 [...] Well developed, well nourished with no malnutrition Mixer Wet Pour consult initiated I/O Daily weight Monitor Daily [...] Accumulation Location: Extremities (07/12/24813) Acute Illness - Filler Operator Strength: Not Performed (07/12/24813) Acute Illness [...] Full Code Disposition: Discharge plan is pending [facility] Advanced Care Planning documentation: [x] I have confirmed that the patient's Advance Care Plan is present, Code Status is documented, orsurrogate decision maker is listed in the patient's [...] the patient's medical record. [DOES NOT SATISFY [facility] PERFORMANCE] Eunice Richter APRN - KERRY , HERNANDO GIRALDO-C Hospitalist Medicine 07/13/2024, 6:47 AM Cosigned by Victor M Ny MD at 07/13/2024 2:35 PM EDT Associated attestation - Victor M Ny MD - 07/13/2024 2:35 PM EDT Images from the original note were not included. [address], [address] Attestation Patient: Ever Palmer Date of Admission: 07/11/2024 9:56 PM Hospital Day # 1 Date of Evaluation: 07/13/2024 I personally evaluated and examined the patient [id number] in conjunction with the PA/COPPER ROLLER HANDLER PRINTING and agree with the management and dispostition of the patient. Please see the PA/COPPER ROLLER HANDLER PRINTING's note for full details.My eason findings are: SUBJECTIVE: Patient seen for follow up of Complicated UTI (urinary tract infection). She is doing better. Discussed her concerns about being in the hospital. Discussed POC/that she has a UTI. She has more energythan prior. OBJECTIVE: Vitals: Temp: 97.9 F (36.6 [...] ml Output 1000 ml Net 2943.56 ml Exam: GEN: Awake, alert and oriented to [...] with the plan as outlined in the COPPER ROLLER HANDLER PRINTING/PA's note Disposition: Discharge plan is pending Please note that this chart was generated using voice recognition [employer] dictation software. Although every effort was made to ensure the accuracy of this automated art teacher, some errors in art teacher may have occurred. Victor M Ny MD 07/13/2024 2:34 PM * Ariella Amaral RN - 07/12/2024 6:57 PM EDT Chief Airport Guide at bedside to complete evening assessment. Upon entry to room, pt in chair, respirations unlabored while on RA. Vitals obtained and assessment completed, see flow sheet for details. Pt denies needs from publicity writer at this time. Call light in reach. Care is ongoing. * Moraima Dela Cruz PTA - 07/12/2024 5:29 PM EDT [facility] Inpatient/Observation/Outpatient Rehabilitation Date: 07/12/2024 Patient Name: Ever Palmer [x] Inpatient Acute/Observation [] Outpatient : 1940 [x] Pt refused/declined therapy at this time due to: 2nd attempt, pt states I don't want to do anyexercises now , nursing notified. [] Pt cancelled [...] does not require skilled services due to: Therapist/Potato Peeling Machine Operator will attempt to see this patient, at our earliest opportunity. Moraima Dela Cruz PTA Date: 07/12/2024 Cosigned by Danitza Gaffney, PT at 07/12/2024 6:03 PM EDT * Bonita Kulkarni GN - 07/12/2024 10:31 AM EDT Entered patient's room for morning vital signs and head to toe assessment. Patient resting in the bed at this time. A&O x4, tearful, anxious, and cooperative. Patient denies of pain at this time.Vital signs and head to toe assessment completed at this time, see flowsheets for more details. Chief Airport Guide and Erika RN assisted patient to bedside commode. Patient is having some urinary frequency. Patient denies no more needs at this time. Call light and bedside table within reach. Bed alarm on. Bed/chair wheels locked. Bed in lowest position. * Ashli Servin, ALFAR/Goldy - 07/12/2024 8:36 AM EDT Occupational Therapy Facility/Department: [facility]G Occupational Therapy Initial Assessment Name: Ever Palmer : 1940 Date of Service: 07/12/2024 Discharge Recommendations: Continue to assess pending progress Patient Diagnosis(es): The encounter diagnosis was Transient alteration of awareness. Past Medical History: has a past medical history of Asthma, Cerebral artery occlusion with cerebralinfarction (HCC), Diabetes mellitus (HCC), History of DVT [...] IADLs Assessment: 83 y/o F admitted to [facility] for AMS. Patient presents with weakness, deconditioning, confusion and increased need for assist during ADL, transfers and mobility. Patient would benefit from OTservices to address to ensure safe return home [...] Level of Assist for Transfers: Independent Active Practical Ministries Professor: No Objective Observation/Palpation Posture: Fair Safety Devices [...] Outcome: Continued education needed AM-PAC - ADL AM-PAC Daily Activity - Inpatient How much help [...] much help for eating meals?: A Little AM-[facility] Inpatient Daily Activity Raw Score: 14 AM-[facility] Inpatient ADL T-Scale Score : 33.39 ADL Inpatient CMS 0-100% Score: 59.67 ADL Inpatient CMS G-Code Modifier : CK Goals Short [...] minutes dynamic standing during functional task of choicewithout loss of balance for improved I/ADL independence and safety upon return home. Therapy Time Individual Concurrent Group Co-treatment Time In 0730 Time Out 0742 Minutes 12 DAVI Marinelli Cosigned by Marnie Martin APRN - CNP at 07/12/2024 9:45 PM EDT * [address], [place] - 07/12/2024 7:55 AM EDT Comprehensive Nutrition Assessment Type and Reason [...] muscle mass loss Fluid Accumulation: Mild Extremities Filler Operator Strength: Not Performed Nutrition Assessment: Predicted [...] to return to usual intakes with improvement ininfection. Nutrition Related Findings: active b/s. trace to +1 BLE edema. Wound Type: None Current Nutrition Intake & Therapies: Average Meal Intake: 1-25% (scant amounts) Average Supplements Intake: None Ordered ADULT DIET; Regular; 4 carb choices (60 gm/meal) Anthropometric Measures: Height: 165.1 cm (5' 5 ) Custer Body Weight (IBW): 125 lbs (57 kg) [...] Used for Energy Requirements: Current Energy (kcal/day): 4994-7571 (18-21) Weight Used for Protein Requirements: Custer Protein (g/day): 62-74 (1.1-1.3) Method Used for [...] Planning: Continue current diet [address], [place] Contact: [phone] * Danitza Gaffney, PT - 07/12/2024 7:52 AM EDT Physical Therapy Facility/Department: [facility]G Physical Therapy Initial Assessment Name: Ever Palmer : 1940 Date of Service: 07/12/2024 Discharge Recommendations: Continue to assess pending progress, Home with Home health PT, Home with assist PRN, Subacute/[facility] Patient Diagnosis(es): The encounter diagnosis was Transient alteration of awareness. Past Medical History: has a past medical history of Asthma, Cerebral artery occlusion with cerebralinfarction (HCC), Diabetes mellitus (HCC), History of DVT [...] to address these defecits and improve function toprior level. Treatment Diagnosis: generalized weakness Specific Instructions [...] Level of Assist for Transfers: Independent Active Practical Ministries Professor: No Vision/Hearing Cognition Orientation Overall Orientation Status: [...] PT,DPT Cosigned by Marnie Martin APRN - KERRY at 07/12/2024 9:45 PM EDT * Eunice Richter APRN - CNP - 07/12/2024 6:35 AM EDT Progress Note SUBJECTIVE: Patient seen for [...] in the 24 hours ending 07/12/24 0635 Exam: GEN: Awake, alert and oriented to [...] intact SKIN: No rashes. No skin lesions. Diagnostic Data: Complete Blood Count: Recent Labs 07/11/24221407/12/24 0500 WBC 5.4 6.0 RBC 3.52* 3.23* HGB 10.8* 9.8* HCT 33.7* 31.1* MCV 95.7 96.3 MCH 30.7 30.3 MCHC 32.0 31.5 RDW 13.5 13.4 PLT 216 188 MPV 9.6 9.7 Last 3 Blood Glucose: Recent Labs 07/11/24230407/12/24 0500 GLUCOSE 94 104* Comprehensive Metabolic Profile: Recent Labs 07/11/24 23007/12/24 0500 NA 143 143 K 4.8 4.5 [...] Well developed, well nourished with no malnutrition Mixer Wet Pour consult initiated I/O Daily weight Monitor Daily [...] Full Code Disposition: Discharge plan is pending [facility] Advanced Care Planning documentation: [x] I have confirmed that the patient's Advance Care Plan is present, Code Status is documented, orsurrogate decision maker is listed in the patient's [...] the patient's medical record. [DOES NOT SATISFY [facility] PERFORMANCE] ENZO Holley CNP , HERNANDO GIRALDO-C Hospitalist Medicine 07/12/2024, 6:35 AM Cosigned by Victor M Ny MD at 07/12/2024 6:31 PM EDT Associated attestation - Victor M Ny MD - 07/12/2024 6:31 PM EDT Images from the original note were not included. [address], [address] Attestation Patient: Ever Palmer Date of Admission: 07/11/2024 9:56 PM Hospital Day # 0 Date of Evaluation: 07/12/2024 I personally evaluated and examined the patient [id number] in conjunction with the PA/COPPER ROLLER HANDLER PRINTING and agree with the management and dispostition of the patient. Please see the PA/COPPER ROLLER HANDLER PRINTING's note for full details.My eason findings are: [...] ml Output 600 ml Net 1230.37 ml Exam: GEN: Awake, alert and oriented [...] with the plan as outlined in the COPPER ROLLER HANDLER PRINTING/PA's note Disposition: Discharge plan is pending Please note that this chart was generated using voice recognition Locketon dictation software. Although every effort was made to ensure the accuracy of this automated art teacher, some errors in art teacher may have occurred. Victor M Ny MD 07/12/2024 6:30 PM * Sara Sigala RN - 07/12/2024 5:08 AM EDT Patient woke up anxious and fearful. She remains confused and is very suspicious of anything, such as drinks, being offered. Patient accuses and staff of lying to her. She can be reoriented but for short periods. remains at bedside. Call light and bedside table remain within reach. Care ongoing. * Sara Sigala RN - 07/12/2024 3:32 AM EDT Patient is resting in bed with eyes closed. Respirations are regular and even and patient shows no signs of distress. Will continue to monitor and assess. * Sara Sigala RN - 07/12/2024 2:00 AM EDT Patient was admitted to the floor and is A&O to self and place but not time or situation. remains at bedside. Patient is very anxious and cries easily. Likely due to her confusion, patient did not take well to her code status question and became tearful about her most recent code statusof DNR-CCA. was unsure about what to do.Chief Airport Guide will inform [employer]. Patient was able to stand pivot to the bed from the ER cot and tolerated fairly well. According to pt and , she normally ambulates independently or with a cane or walker at home. Vitals and assessment are complete. Chief Airport Guide walked patient through the doctor's orders and the medications that would be administered tonight. Medications given in ER were also reviewed. Chief Airport Guide encouraged patient to ask questions. Personal belongings are with patient and patient was oriented to the room and call light. Call light and bedside table are within reach. Chief Airport Guide gave a basic explanation of how the patient's day wouldgo tomorrow, and that a care team would be rounding some time in the morning. * Corrine Kumar RN - 07/12/2024 1:24 AM EDT Report called to RAMNOE Ruiz at this time. documented in this encounterBon [facility] Discharge instructions* Discharge Instr - Activity* Corrine West - 07/14/2024 12:28 PM EDT Activity as tolerated * Discharge Instr - Diet* Corrine West - 07/14/2024 12:29 PM EDT [...] at most local grocery stores, pharmacies, and [employer]. If you have any questions about your diet or nutrition, call the hospital and ask for the dietitian. Diabetic diet * Discharge Instr - REFUGIO* Victor M Ny MD - 07/14/2024 5:34 AM EDT Continuity of Care Form Patient Name: Ever Palmer : 1940 Admit date: 07/11/2024 Discharge date: Code Status Order: DNR-CCA Advance Directives: Admitting Physician: Victor M Ny MD PCP: Richie Ramos DO Discharging Nurse: Discharging Hospital Unit/Room#: 0314/0314-01 Discharging Unit Phone Number: Emergency Contact: Extended Emergency Contact Information Primary Emergency Contact: Jose Palmer Address: [address] Mobile Relation: Spouse Hearing or visual needs: None Other needs: None Preferred language: [place] Verde[place] Olive Grower needed? No Secondary Emergency Contact: Teo Bardales [facility] Relation: Child Hearing or visual needs: None Other needs: None Preferred language: [place] Olive Grower needed? No Past Surgical History: Past Surgical History: Procedure Laterality Date ANKLE SURGERY Left APPENDECTOMY CARPAL TUNNEL RELEASE Bilateral CATARACT REMOVAL WITH IMPLANT Left CATARACT REMOVAL WITH IMPLANT Right 12/20/2017 Dr Dee CHOLECYSTECTOMY COLONOSCOPY HYSTERECTOMY (CERVIX STATUS UNKNOWN) OTHER SURGICAL HISTORY 09/02/2020 cerebral angiogram AK XCAPSL CTRC RMVL INSJ IO LENS PROSTH W/O ECP Right 12/20/2017 EYE CATARACT EMULSIFICATION IOL IMPLANT performed by Rocky Dee DO at [facility] OR Immunization History: Immunization History [...] (36.6 C) (Temporal) Resp 18 Ht 1.651 m(5' 5 ) Wt 85.9 kg (189 lb 4.8 oz) SpO2 98% No BMI 31.50 kg/m Last documented pain score (0-10 scale): Pain Level: 0 Last Weight: Wt Readings from Last 1 Encounters: 07/14/24 85.9 kg (189 lb 4.8 oz) Mental Status: {IP PT MENTAL STATUS:} IV Access: { REFUGIO IV ACCESS:171824886} Nursing Mobility/ADLs: Walking {CHP DME ADLs:523361144} Transfer {CHP DME ADLs:433164600} Bathing {CHP DME ADLs:810661392} Dressing {CHP DME ADLs:024324310} Toileting {CHP DME ADLs:627925300} Feeding {CHP DME ADLs:239946730} Tree Care Foreman {CHP DME ADLs:366352159} Med Delivery { REFUGIO MED Delivery:997223440} Wound Care Documentation and Therapy: Incision 12/20/17 Eye Right (Active) Number of days: 2397 Elimination: Continence: Bowel: {YES / NO:} Bladder: {YES / NO:} Urinary Catheter: {Urinary Catheter:683169367} Colostomy/Ileostomy/Ileal Conduit: {YES / NO:} Date of Last BM: Intake/Output Summary (Last 24 hours) at 07/14/2024 0534 Last data filed at 07/14/2024 0410 Gross per 24 hour Intake 3383.11 ml Output 1300 ml Net 2083.11 ml I/O last 3 completed shifts: In: 5151.5 [P.O.:1640; I.V.:3417.9; IV Piggyback:93.6] Out: 1600 [Urine:1600] Safety Concerns: { REFUGIO Safety Concerns:116411705} Impairments/Disabilities: {[facility] Impairments/Disabilities:245609026} Nutrition Therapy: Current Nutrition Therapy: { REFUGIO Diet List:687341162} Routes of Feeding: {[facility] DME Other Feedings:924167674} Liquids: {Returning Officer liquid thickness:40539} Daily Fluid Restriction: {CHP DME Yes amt example:893535374} Last Modified Barium Swallow with Video (Video Swallowing Test): {Done Not Done Date:} Treatments at the Time of Hospital Discharge: Respiratory Treatments: Oxygen Therapy: {Therapy; copd oxygen:65854} Ventilator: { CC Vent List:330613959} Rehab Therapies: {THERAPEUTIC INTERVENTION:1755237488} Weight Bearing Status/Restrictions: {[facility] Weight Bearin} Other Medical Equipment (for information only, NOT a DME order): {EQUIPMENT:594123972} Other Treatments: Patient's personal belongings (please select all that are sent with patient): {CHP DME Belongings:565231497} RN SIGNATURE: {Esignature:047401261} CASE MANAGEMENT/SOCIAL WORK SECTION Inpatient Status Date: Readmission Risk Assessment Score: [facility] RISK OF UNPLANNED READMISSION 2.0 12 Total Score Discharging to Facility/ Agency Name: Address: Phone: Fax: Dialysis Facility (if applicable) Name: Address: Dialysis Schedule: Phone: Fax: Drapery Seamstress/Tile Layer Helper signature: {Esignature:240276533} PHYSICIAN SECTION Prognosis: {Prognosis:2830046673} Condition at Discharge: { Patient Condition:380640312} Rehab Potential (if transferring to Rehab): {Prognosis:5588548642} Recommended Labs or Other Treatments After Discharge: Physician Certification: I certify the above information and transfer of Ever Palmer is necessary for the continuing treatment of the diagnosis listed and that she requires {Admit to Appropriate Level of Care:68842} for {GREATER/LESS:058912960} 30 days. Update Admission H&P: {CHP DME Changes in HandP:108756330} PHYSICIAN SIGNATURE: * Attachments The following attachments cannot be sent through Care Everywhere. * UTI (Urinary Tract Infection): Female ([place] Verdean) * Cephalexin Oral Capsule (CEPHALEXIN - ORAL) ([place]an) documented in this encounterBon [facility] Hospital course Narrative* Victor M Ny MD - 07/14/2024 12:23 PM EDT Images from the original note were not included. [address], [address] Discharge Summary NAME: Ever Palmer : 1940 [...] was started empirically on IV antibiotics. She wastransitioned to PO antibiotics. She worked with PT/OT [...] will report to the ED and/or contact [facility] for immediate evaluation. Teach back method was used. All patient questions answered. Pt voiced understanding. Consults: None Significant Diagnostic/theraputic interventions: IVF, IV antibiotics, CT imaging Disposition: home Instructions to Patient: Follow up with Richie Ramos DO in 1-2 weeks Discharge Medications: [...] Your Medications These medications were sent to [address], [facility] [address] - P [phone] - F [phone] [address] cephALEXin 500 MG capsule Send Copies to: Richie Ramos DO Patient Instructions: Activity: activity as tolerated Diet: cardiac diet Follow up with Richie Ramos DO in 1-2 weeks Follow-up with ENT and Neurology as directed CORE MEASURES on Discharge (if applicable) CHF: ELIZABETH, ARB or ARNI therapy: If not present/on discharge summary as noted above, then the patientdeclined. CHF: Betablocker therapy: If not present/on discharge summary as noted above, then the patient declined. ELIZABETH/ARB in CHF: N/A ASA in [place]: N/A Statin in [place]: N/A Statin in CVA: N/A Antiplatelet in CVA: N/A Total time spent on discharge services: 45 minutes Including the following activities: Evaluation and Management of patient Discussion with patient and/or surrogate about current care plan Coordination with Case Management and/or Tile Layer Helper Coordination of care with Consultants (if applicable) Coordination of care with Receiving Facility Physician (if applicable) Completion of DME forms (if applicable) Preparation of Discharge Summary Preparation of Medication Reconciliation Preparation of Discharge Prescriptions Please note that this chart was generated using voice recognition Hybrid Logic dictation software. Although every effort was made to ensure the accuracy of this automated art teacher, some errors in art teacher may have occurred. Victor M Ny MD 07/14/2024 12:24 PM documented in this encounterBon [facility] Hospital Discharge instructions* Discharge Instructions* Gee Baxter MD - 03/26/2024 6:15 PM EST Continue current medications as prescribed. Keflex as directed until complete. Follow-up with your primary care provider for reevaluation tomorrow as scheduled. Follow-up with neurology I did speak with the neurologist at [facility] they would be happy to see you but you may follow-up at neurology with [facility] send you been seen before for the same issue there. Please return immediately should you develop any severe headaches or any other acute concerns * Attachments The following attachments cannot be sent through Care Everywhere. * Altered Mental Status ([place]an) documented in this encounterBon [facility] NoteADDENDUM: Results were reported to Dr. Baxter by radiology results communication at 3:27 p.m. on March 26, 2024. Electronically Signed by: ANGELITO ALFONSO on [place] Mar 26, 2024 3:32:28 PM EST EXAMINATION: [...] Angelito Alfonso MD 03/26/24 Edited Result - [facility]01-09-2025 Note1. Interval mild progression of L5 superior endplate fracture with 20% height loss. 2. Multilevel lumbar spondylosis. [facility] RIS [id number] Hospital Discharge instructions* Discharge Instructions* Gee Baxter MD - 01/21/2024 4:50 PM EST Continue current medications as prescribed. Use [place] place of Tylenol for pain not controlled withTylenol. Vvft-txa-vooxdrv product such as IcyHot [place] balm Biofreeze or similar. Heat or ice for 5to 10-minute intervals as desired for comfort. Follow-up with your primary care provider in 2 to 3 days for recheck. Please return immediately should develop any worsening symptoms or any other acuteconcerns * Attachments The following attachments cannot be sent through Care Everywhere. * Back: Strain ([place]an) documented in this encounterBon [facility] History of Present illness Narrative* Moraima Dela Cruz, DENTAL INTERNSHIP - 12/20/2023 1:15 PM EST [facility] Outpatient Physical Therapy Daily Note Patient: Ever Palmer : 1940 CSN #: [id number] Referring Physician: Richie Ramos DO Date: 12/20/2023 Diagnosis: Dorsal lumbar pain and spasm, M54.9, M62.830 Treatment Diagnosis: Back pain, general weakness PT Insurance Information: Medicare Total # of Visits Approved: 22 Per Physician Order Total # of Visits to Date: 19 No Show: 0 Canceled Appointment: 0 12/31/23 Plan of Care/Recert Due Pre-Treatment Pain: 5/10 Subjective: Pt states she is not feeling good today, 5/10 LBP. Pt states she wants to be [...] able to complete 5 sit/stands with no firewall engineer and no LOB to improve functional strength.-progressing [place] Goals Time Frame for Jail Goals : 6 weeks [place] [facility] Goal 1: Patient to be independent and compliant with HEP.-progressing Jail Goal 2: Patient to have improved core and B hip strength >/=4/5 grossly for improved lumbar stability.-met Jail Goal 3: Patient to have improved B shoulder strength >/=4/5 grossly all planes for improved postural control.-met [place] Goal 4: Patient to report ability to stand/walk >/=15minutes with no increase in back pain and no fatigue to improve endurance and return to PLOF.-met Minutes Tracking: Time In: 1318 Time Out: 1410 Minutes: 52 Moraima Dela Cruz, DENTAL INTERNSHIP Date: 12/20/2023 documented in this encounterBon [facility] History of Present illness Narrative* Dario Ruiz, PT - 12/17/2023 1:00 PM EST [facility] Outpatient Physical Therapy Daily Note Patient: Ever Palmer : 1940 CSN #: [id number] Referring Physician: Richie Ramos DO Date: 12/17/2023 Diagnosis: Dorsal lumbar [...] Exercise 3: retractions/LAE bTB x15, GTB palloff [id number] ea - no palloff press Exercise 5: [...] pt with increasing fwd flexed posture, fatigue andpain after 50ft. Added supine hab's/diag's with yellow [...] able to complete 5 sit/stands with no firewall engineer and no LOB to improve functional strength.-progressing [place] Goals Time Frame for [place] Goals : 6 weeks Jail Goal 1: Patient to be independent and compliant with HEP.-progressing Jail Goal 2: Patient to have improved core and B hip strength >/=4/5 grossly for improved lumbar stability.-met [place] Goal 3: Patient to have improved B shoulder strength >/=4/5 grossly all planes for improved postural control.-met [place] Goal 4: Patient to report ability to stand/walk >/=15minutes with no increase in back pain and no fatigue to improve endurance and return to PLOF.-met Minutes Tracking: Time In: 1301 Time Out: 1348 Minutes: 47 Timed Code Treatment Minutes: 46 Minutes Dario Ruiz PT, DPT Date: 12/17/2023 documented in this encounterBon [facility] History of Present illness Narrative* Quincy Kumar PTA - 12/06/2023 1:15 PM EDT [facility] Outpatient Physical Therapy Daily Note Patient: Ever Palmer : 1940 CSN #: [id number] Referring Physician: Richie Ramos DO Date: 12/06/2023 Treatment Diagnosis: Back [...] Exercise 3: retractions/LAE bTB x15, GTB palloff [id number] ea - no palloff press Exercise 4: 6 amie step over forward/lateral x10 ea Exercise 5: [...] Post Treatment Pain: 05/18 Plan Plan Frequency: 2 Plan weeks: 4 [...] able to complete 5 sit/stands with no firewall engineer and no LOB to improve functional strength.-progressing Jail Goals Time Frame for [place] Goals : 6 weeks Jail Goal 1: Patient to be independent and compliant with HEP.-progressing Jail Goal 2: Patient to have improved core and B hip strength >/=4/5 grossly for improved lumbar stability.-met [place] Goal 3: Patient to have improved B shoulder strength >/=4/5 grossly all planes for improved postural control.-progressing [place] Goal 4: Patient to report ability to stand/walk >/=15minutes with no increase in back pain and no fatigue to improve endurance and return to PLOF.-met Minutes Tracking: Time In: 1317 Time Out: 1400 Minutes: 43 Timed Code Treatment Minutes: 41 Minutes Quincy Kumar DENTAL INTERNSHIP Date: 12/06/2023 documented in this encounterBon [facility] History of Present illness Narrative* Moraima Dela Cruz, DENTAL INTERNSHIP - 12/03/2023 1:00 PM EDT [facility] Outpatient Physical Therapy Daily Note Patient: Ever Davenportcollette : 1940 [facility] #: [id number] Referring Physician: Richie Ramos, Date: 12/03/2023 Diagnosis: Dorsal lumbar pain and [...] Exercise 3: retractions/LAE bTB x15, GTB palloff [id number] ea - no palloff press Exercise 6: [...] require frequent VCs for posture throughout tx. Continueas pt tolerates. Activity Tolerance Patient Education Patient [...] able to complete 5 sit/stands with no firewall engineer and no LOB to improve functional strength.-progressing [place] Goals Time Frame for Jail Goals : 6 weeks [place] [facility] Goal 1: Patient to be independent and compliant with HEP.-progressing [place] Goal 2: Patient to have improved core and B hip strength >/=4/5 grossly for improved lumbar stability.-met Jail Goal 3: Patient to have improved B shoulder strength >/=4/5 grossly all planes for improved postural control.-progressing Jail Goal 4: Patient to report ability to stand/walk >/=15minutes with no increase in back pain and no fatigue to improve endurance and return to PLOF.-met Minutes Tracking: Time In: 1303 Time Out: 1344 Minutes: 41 Moraima Dela Cruz, DENTAL INTERNSHIP Date: 12/03/2023 documented in this encounterBon [facility] History of Present illness Narrative* Moraima Dela Cruz, DENTAL INTERNSHIP - 11/29/2023 2:00 PM EDT [facility] Outpatient Physical Therapy Daily Note Patient: Ever Palmer : 1940 CSN #: [id number] Referring Physician: Richie Ramos DO Date: 11/29/2023 Diagnosis: Dorsal lumbar pain and spasm, M54.9, M62.830 Treatment Diagnosis: Back pain, general weakness PT Insurance Information: Medicare Total # of Visits Approved: 12 Per Physician Order Total # of Visits to Date: 13 No Show: 0 Canceled Appointment: 0 12/03/23 Plan of Care/Recert Due Pre-Treatment Pain: 3-4/10 Subjective: Pt reports B shoulder pain 3/10, LBP 3-4/10. Pt states she is discouraged with her progress, thinks she should be getting better quicker. Exercises: Exercise 1: HEP: shoulder rolls/retracs, supine PPT's, marching, glut sets, supine HAB's with orange band, supine B pec stretch Exercise 2: Scifit 10 min L3.5 Exercise 3: retractions/LAE bTB x15, GTB palloff [id number] ea - no palloff press Exercise 4: 6 amie step over forward/lateral x10 ea Exercise 7: [...] exercises, fatigues quickly. Continue as pt tolerates. [place] Back Pain Disability Scale Get out of [...] carry a heavy suitcase: Unable to do [place] Total Score: 59 Current Total Score: 59 [...] able to complete 5 sit/stands with no firewall engineer and no LOB to improve functional strength.-progressing Jail Goals Time Frame for Jail Goals : 6 weeks [place] Goal 1: Patient to be independent and compliant with HEP.-progressing [place] Goal 2: Patient to have improved core and B hip strength >/=4/5 grossly for improved lumbar stability.-met Jail Goal 3: Patient to have improved B shoulder strength >/=4/5 grossly all planes for improved postural control.-progressing [place] Goal 4: Patient to report ability to stand/walk >/=15minutes with no increase in back pain and no fatigue to improve endurance and return to PLOF.-met Minutes Tracking: Time In: 1403 Time Out: 1446 Minutes: 43 Moraima Dela Cruz PTA Date: 11/29/2023 documented in this encounterBon [facility] History of Present illness Narrative* Moraima Dela Cruz PTA - 11/26/2023 10:15 AM EDT [facility] Outpatient Physical Therapy Daily Note Patient: Ever Palmer : 1940 CSN #: [id number] Referring Physician: Richie Ramos DO Date: 11/26/2023 Diagnosis: Dorsal lumbar [...] able to complete 5 sit/stands with no firewall engineer and no LOB to improve functional strength.-progressing Jail Goals Time Frame for [place] Goals : 6 weeks Jail Goal 1: Patient to be independent and compliant with HEP.-progressing Jail Goal 2: Patient to have improved core and B hip strength >/=4/5 grossly for improved lumbar stability.-met Jail Goal 3: Patient to have improved B shoulder strength >/=4/5 grossly all planes for improved postural control.-progressing Jail Goal 4: Patient to report ability to stand/walk >/=15minutes with no increase in back pain and no fatigue to improve endurance and return to PLOF.-met Minutes Tracking: Time In: 1018 Time Out: 1100 Minutes: 42 Moraima Dela Cruz, DENTAL INTERNSHIP Date: 11/26/2023 documented in this encounterBon [facility] History of Present illness Narrative* Moraima Dela Cruz, DENTAL INTERNSHIP - 11/24/2023 1:15 PM EDT [facility] Outpatient Physical Therapy Daily Note Patient: Ever CARMEN: 1940 [facility] #: [id number] Referring Physician: Richie Ramos, DO Date: 11/24/2023 Diagnosis: Dorsal lumbar pain and spasm, M54.9, M62.830 Treatment Diagnosis: Back pain, general weakness PT Insurance Information: Medicare Total # of Visits Approved: 12 Per Physician Order Total # of Visits to Date: 11 No Show: 0 Canceled Appointment: 0 12/03/23 Plan of Care/Recert Due Pre-Treatment Pain: 3-05/18 Subjective: Pt reports normal LBP -05/18. Pt states she was able to take her shirt off by herselfafter the last visit. Exercises: Exercise 1: HEP: shoulder rolls/retracs, supine PPT's, marching, glut sets, supine HAB's with orange band, supine B pec stretch Exercise 2: Scifit 10 min L3.5 Exercise 3: retractions/LAE bTB x15, GTB palloff [id number] ea - no palloff press Exercise 5: [...] able to complete 5 sit/stands with no firewall engineer and no LOB to improve functional strength.-progressing Jail Goals Time Frame for Jail Goals : 6 weeks Jail Goal 1: Patient to be independent and compliant with HEP.-progressing Jail Goal 2: Patient to have improved core and B hip strength >/=4/5 grossly for improved lumbar stability.-met Jail Goal 3: Patient to have improved B shoulder strength >/=4/5 grossly all planes for improved postural control.-progressing Jail Goal 4: Patient to report ability to stand/walk >/=15minutes with no increase in back pain and no fatigue to improve endurance and return to PLOF.-met Minutes Tracking: Time In: 1313 Time Out: 1356 Minutes: 43 Moraima Dela Cruz PTA Date: 11/24/2023 documented in this encounterBon [facility] History of Present illness Narrative* Moraima Dela Cruz PTA - 11/12/2023 1:00 PM EDT [facility] Outpatient Physical Therapy Daily Note Patient: Ever Palmer : 1940 CSN #: [id number] Referring Physician: Richie Ramos DO Date: 11/12/2023 Diagnosis: Dorsal lumbar [...] Exercise 3: retractions/LAE GTB x15, GTB palloff [id number] ea Exercise 5: ASU/LSU x10 ea Exercise [...] able to complete 5 sit/stands with no firewall engineer and no LOB to improve functional strength.-progressing [place] Goals Time Frame for Jail Goals : 6 weeks Jail Goal 1: Patient to be independent and compliant with HEP.-progressing Jail Goal 2: Patient to have improved core and B hip strength >/=4/5 grossly for improved lumbar stability.-progressing [place] Goal 3: Patient to have improved B shoulder strength >/=4/5 grossly all planes for improved postural control.-progressing [place] Goal 4: Patient to report ability to stand/walk >/=15minutes with no increase in back pain and no fatigue to improve endurance and return to PLOF.-progressing Minutes Tracking: Time In: 1301 Time Out: 1345 Minutes: 44 Moraima Dela Cruz PTA Date: 11/12/2023 documented in this encounterB[facility] History of Present illness Narrative* Moraima Dela Cruz PTA - 11/08/2023 1:15 PM EDT [facility] Outpatient Physical Therapy Daily Note Patient: Ever Palmer : 1940 CSN #: [id number] Referring Physician: Richie Ramos DO Date: 11/08/2023 Diagnosis: Dorsal lumbar pain and spasm, M54.9, M62.830 Treatment Diagnosis: Back pain, general weakness PT Insurance Information: Medicare Total # of Visits Approved: 12 Per Physician Order Total # of Visits to Date: 4 No Show: 0 Canceled Appointment: 0 12/03/23 Plan of Care/Recert Due Pre-Treatment Pain: 06/17 Subjective: Pt reports 06/17 LBP today. pt states she had a busy weekend. Exercises: Exercise 1: HEP: shoulder rolls/retracs, supine PPT's, marching, glut sets, supine HAB's with orange band, supine B pec stretch Exercise 2: Scifit 10 min L1 Exercise 3: retractions/LAE GTB x15, GTB palloff [id number] ea Exercise 4: Sink exercises x15 ea [...] d/t fatigue and VCs for technique. Pt ableto complete 5 STS with good form but [...] able to complete 5 sit/stands with no firewall engineer and no LOB to improve functional strength.-progressing Jail Goals Time Frame for Jail Goals : 6 weeks Jail Goal 1: Patient to be independent and compliant with HEP. Jail Goal 2: Patient to have improved core and B hip strength >/=4/5 grossly for improved lumbar stability. Jail Goal 3: Patient to have improved B shoulder strength >/=4/5 grossly all planes for improved postural control. [place] Goal 4: Patient to report ability to stand/walk >/=15minutes with no increase in back pain and no fatigue to improve endurance and return to OF. Minutes Tracking: Time In: 1316 Time Out: 1408 Minutes: 52 Moraima Dela Cruz, DENTAL INTERNSHIP Date: 11/08/2023 [facility] History of Present illness Narrative* Moraima Dela Cruz, DENTAL INTERNSHIP - 2023 1:15 PM EDT [facility] Outpatient Physical Therapy Daily Note Patient: Ever Palmer : 1940 CSN #: [id number] Referring Physician: Richie Ramos DO Date: 2023 Diagnosis: Dorsal lumbar [...] states she has difficulty getting dressed and withher balance. Exercises: Exercise 1: HEP: shoulder rolls/retracs, [...] able to complete 5 sit/stands with no firewall engineer and no LOB to improve functional strength. Jail Goals Time Frame for Jail Goals : 6 weeks Jail Goal 1: Patient to be independent and compliant with HEP. Spring Tier Goal 2: Patient to have improved core and B hip strength >/=4/5 grossly for improved lumbar stability. Jail Goal 3: Patient to have improved B shoulder strength >/=4/5 grossly all planes for improved postural control. Jail Goal 4: Patient to report ability to stand/walk >/=15minutes with no increase in back pain and no fatigue to improve endurance and return to PLOF. Minutes Tracking: Time In: 1316 Time Out: 1400 Minutes: 44 Moraima Dela Cruz, DENTAL INTERNSHIP Date: 2023 documented in this [facility] Hospital Discharge instructions* Discharge Instructions* Allie Burris MD - 10/21/2021 6:55 PM EDT Your blood pressure was elevated during this visit and did not change significantly after giving you your home dose (5 mg) of amlodipine. However, this does not mean that this medication is not effective for you. You may have improvement and better blood pressure numbers moving forward. Please keepyour current appointment with your doctor tomorrow. In the interim, return to the ED if you developchest pain, trouble breathing, numbness, weakness, speech changes or any other concerns. Please check your blood pressure in the morning prior to your appointment and provide that number to your doctor tomorrow. * Attachments The following attachments cannot be sent through Care Everywhere. * Blood Pressure: Elevated ([place]) [facility] [employer] [facility] Phone: 1(230) 884-267608-28-2022 Hospital Discharge instructions* Discharge Instructions* Allie Burris MD - 10/05/2021 5:27 PM EDT Please follow-up with your primary care physician tomorrow. The neurologist has recommended that you have an echocardiogram; this will need to be scheduled by your primary care physician. * Attachments The following attachments cannot be sent through Care Everywhere. * UTI (Urinary Tract Infection): Female ([place]) * Dysarthria: General Info ([place]) documented in this [facility] [employer] Phone: 1(119) 912-694601-25-2022 Note [facility] Vascular Lower Extremities DVT Study Procedure Patient Name SPENCER Date of Study 03/03/2021 EVER Mckay Date of 1940 Gender Female Age 80 year(s) Race Room Number Corporate ID [id number] # Patient Acct [id number] # MR # [id number] Fiber Optic Assembly Worker Katie Jackson RVT Interpreting Physician Alissa Marx Referring Referring Physician Alissa Marx Nurse Practitioner Additional Comments REsults were reported to Dr. Marx's office 03/03/2021 @ 6534. Procedure Type of Study: Veins: Lower Extremities [...] DVT Study Measurements Right 2D Measurements + + + + + !Location !Visualized!Compressibility!Thrombosis! + + + + + !Common Femoral !Yes !Yes !None ! + + + + + !Prox Femoral !Yes !Yes !None ! + + + + + !Mid Femoral !Yes !Yes !None ! + + + + + !Dist Femoral !Yes !Yes !None ! + + + + + !Deep Femoral !Yes !Yes !None ! + + + + + !Popliteal !Yes !Yes !None ! + + + + + !Sapheno Femoral Junction !Yes !Yes !None ! + + + + + !PTV !Yes !Yes !None ! + + + + + !Peroneal !Yes !Yes !None ! + + + + + !Gastroc !Yes !Yes !None ! + + + + + !GSV Thigh !Yes !Yes !None ! + + + + + !GSV Knee !No ! ! ! + + + + + !GSV Ankle !No ! ! ! + + + + + !SSV !Yes !Yes !None ! + + + + + Right Doppler Measurements + +---------+------+ + !Location !Signal !Reflux!Reflux (msec) ! + +---------+------+ + !Common Femoral !Pulsatile! ! ! + +---------+------+ (more content not included)...[facility] [id number] History of Present illness Narrative* Quincy Kumar, DENTAL INTERNSHIP - 01/21/2021 9:30 AM EST [facility] Outpatient Physical Therapy Daily Note Patient: Ever Palmer : 1940 CSN #: [id number] Referring Practitioner: Richie Ramos DO Referral Date : 11/19/20 Date: [...] rows and extensions BTB 10x2 Exercise 6: Amie side step overs 10x2 high/ low Exercise 8: 1 big loop, fast/ slow/ sides/ fwd retro -holding small airex with cone Exercise 9: toe taps on step (limited UE) 15x ea alt Exercise 10: UBE 4 retro Exercise 11: High knee walking, side walking and zig zag walking 1 lap each in gym -airex with coneon top Exercise 12: recip steps (Airex with [...] pt required further clarification. Post Treatment Pain: 210 Plan Times per week: 1-2 Plan weeks: [...] Met skilled nursing goals Time Frame for long term care pharmacist goals : 6 weeks skilled nursing goal 1: Pt will be independent and compliant with HEP. skilled nursing goal 2: Pt will improve L cervical rotation to be within 5* of R cervical rotation to improve functional mobility. long term care pharmacist goal 3: Pt will perform TUG in </= 10 seconds to decrease fall risk.- progressing long term care pharmacist goal 4: Pt will demonstrate ability to perform 5 sit to stands with hands on thighs to improve LE functional strength. Minutes Tracking: Time In: 930 Time Out: 1030 Minutes: 59 Timed Code Treatment Minutes: 43 Minutes Quincy Kumar PTA Date: 01/21/2021 documented [facility] this [facility] Phone: 1(293) 801-961212-06-2021 History of Present illness Narrative* Ford Sarah - 01/13/2021 10:45 AM EST [facility] Outpatient Physical Therapy Daily Note Patient: Ever Palmer : 1940 CSN #: [id number] Referring Practitioner: Richie Ramos DO Referral Date : 11/19/20 Date: [...] rows and extensions BTB 10x2 Exercise 6: Amie side step overs 10x2 Exercise 7: Yes/no's; [...] decrease stress on cervical spine - Met long term care pharmacist goals Time Frame for skilled nursing goals : 6 weeks skilled nursing goal 1: Pt will be independent and compliant with HEP. long term care pharmacist goal 2: Pt will improve L cervical rotation to be within 5* of R cervical rotation to improve functional mobility. skilled nursing goal 3: Pt will perform TUG in </= 10 seconds to decrease fall risk.- progressing long term care pharmacist goal 4: Pt will demonstrate ability to perform 5 sit to stands with hands on thighs to improve LE functional strength. Minutes Tracking: Time In: 1045 Time Out: 1139 Minutes: 54 Timed Code Treatment Minutes: 53 Minutes Ford Marsh Date: 01/13/2021 documented in this [facility] Phone: 1(437) 256-665511-29-2021 History of Present illness Narrative* Darlin Ferrer, PT - 01/06/2021 10:45 AM EST [facility] Outpatient Physical Therapy Daily Note Patient: Ever Palmer : 1940 CSN #: [id number] Referring Practitioner: Richie Ramos DO Referral Date : 11/19/20 Date: [...] stands with hands on thighs, meeting intermediate card tender goal. Ptperforms TUG x2, with best time of 11.9 [...] decrease stress on cervical spine - Met long term care pharmacist goals Time Frame for skilled nursing goals : 6 weeks long term care pharmacist goal 1: Pt will be independent and compliant with HEP. long term care pharmacist goal 2: Pt will improve L cervical rotation to be within 5* of R cervical rotation to improve functional mobility. skilled nursing goal 3: Pt will perform TUG in </= 10 seconds to decrease fall risk.- progressing long term care pharmacist goal 4: Pt will demonstrate ability to perform 5 sit to stands with hands on thighs to improve LE functional strength. Minutes Tracking: Time In: 1052 Time Out: 1155 Minutes: 63 Timed Code Treatment Minutes: 60 Minutes Darlin Ferrer PT, DPT Date: 01/06/2021 documented in this [facility] Work Phone: 1(605) 269-257711-16-2021 History of Present illness Narrative* Delores Palma PT - 12/24/2020 10:15 AM EST [facility] Outpatient Physical Therapy Daily Note Patient: Ever Mckay Spencer : 1940 CSN #: [id number] Referring Practitioner: Richie Ramos DO Referral Date : 11/19/20 Date: [...] decrease stress on cervical spine - Met long term care pharmacist goals Time Frame for long term care pharmacist goals : 6 weeks long term care pharmacist goal 1: Pt will be independent and compliant with HEP. long term care pharmacist goal 2: Pt will improve L cervical rotation to be within 5* of R cervical rotation to improve functional mobility. long term care pharmacist goal 3: Pt will perform TUG in </= 10 seconds to decrease fall risk. skilled nursing goal 4: Pt will demonstrate ability to perform 5 sit to stands with hands on thighs to improve LE functional strength. Minutes Tracking: Time In: 1015 Time Out: 1117 Minutes: 62 Timed Code Treatment Minutes: 62 Minutes Delores Palma PT, DPT Date: 12/24/2020 documented in this [facility] Phone: 1(122) 319-372411-15-2021 History of Present illness Narrative* Quincy Kumar, DENTAL INTERNSHIP - 12/23/2020 10:15 AM EST [facility] Outpatient Physical Therapy Daily Note Patient: Ever Palmer : 1940 CSN #: [id number] Referring Practitioner: Richie Ramos DO Referral Date : 11/19/20 Date: 12/23/2020 Diagnosis: Ataxia, leg weakness, cervical disc disease, cervical spasm pain, orthostatic hypotension Treatment Diagnosis: generalized weakness, neck pain Onset Date: 04/17/20 PT Insurance Information: [employer] Total # of Visits Approved: 12 Per Physician Order Total # of Visits to Date: 4 No Show: 0 Canceled Appointment: 0 Pre-Treatment Pain: 02/17 Subjective: Pt reports she feels like her blood pressure is high today but other than that shes just tired. 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 Pt rates current pain a /10. Exercises: Exercise 1: HEP: sink ex; yes/no's; [...] strengthening to decrease stress on cervical spine. skilled nursing goals Time Frame for skilled nursing goals : 6 weeks skilled nursing goal 1: Pt will be independent and compliant with HEP. long term care pharmacist goal 2: Pt will improve L cervical rotation to be within 5* of R cervical rotation to improve functional mobility. long term care pharmacist goal 3: Pt will perform TUG in </= 10 seconds to decrease fall risk. long term care pharmacist goal 4: Pt will demonstrate ability to perform 5 sit to stands with hands on thighs to improve LE functional strength. Minutes Tracking: Time In: 1014 Time Out: 1115 Minutes: 61 Timed Code Treatment Minutes: 59 Minutes Quincy Kumar PTA Date: 12/23/2020 documented in this [facility] Work Phone: 1(798) 727-764711-09-2021 History of Present illness Narrative* Darlin Ferrer PT - 12/17/2020 10:15 AM EST [facility] Outpatient Physical Therapy Daily Note Patient: Ever Palmer : 1940 CSN #: [id number] Referring Practitioner: Richie Ramos DO Referral Date : 11/19/20 Date: [...] strengthening to decrease stress on cervical spine. skilled nursing goals Time Frame for long term care pharmacist goals : 6 weeks long term care pharmacist goal 1: Pt will be independent and compliant with HEP. 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 Word listretention - category inclusion: increased to 22/ with min verbal cues and repetitions. Functional [...] ST: Discharge recommendations: [] Inpatient Rehab [] [facility] [] Outpatient Therapy [] Follow up at trauma clinic [x] Other: Further therapy recommended at discharge. 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 pt questioned aboutdizziness/incresed intensity of ROMERO and pt reports I [...] the supervision of co-signing PT who agrees withall evaluation/treatment and documentation. * Zaida Segura SLP - 09/03/2020 11:53 AM EDT Speech Language Pathology Facility/Department: [address] Initial Speech/Language/Cognitive Assessment NAME: Ever Palmer [...] receptive aphasia. On my exam patient has rightgroin Fem Stop in place set to 22 [...] deficits characterized by impaired short term recall anddeductive reasoning. Note patient is lethargic but cooperative. Pt. Presents with no dysarthria, noO/M deficits at this time. ST to follow up and provide treatment to address noted deficits. Education provided. ST recommends continued therapy at this time. 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 [employer] Hearing Hearing: Within functional limits Objective: Oral/Motor Oral Motor: Within functional limits Expression Primary Mode of Expression: Verbal Motor Speech Motor Speech: Within Functional Limits Cognition: Orientation Overall Orientation Status: Within Normal Limits Attention Attention: Within Functional Limits Memory Memory: Exceptions to WFL Short-term Memory: Mild 2/3 improved to 3/3, 2/3 Working Memory: (WF) Problem Solving Problem Solving: Within Functional Limits [...] Minutes 11 RADHA Harris 09/03/2020 11:53 AM * Tia Madrid RN - 09/03/2020 11:[address] Monteiro of repeat vital signs. Continue to closely monitor at this time. * Tia Madrid RN - 09/03/2020 11:[address] Monteiro of pt's orthostatic vital signs. Pt care discussed. Will recycle BP and notify Dr. Monteiro per his request. * King Monteiro MD - 09/03/2020 8:57 AM EDT Images from the original note were not included. Daily Progress Note Neuro Critical Care Patient Name: Ever Palmer Patient : 1940 Room/Bed: 0528/0528-01 Code Status: Full Code Allergies: Allergies Allergen Reactions Morphine CHIEF COMPLAINT: s/p TPA, aphasia INTERVAL HISTORY Initial Presentation (Admitted 09/02/20): Ever Palmer is a 79 y.o. female with pmh of htn, dmii, ashtma, and TIA aphasia 04/2020 who presents from neuro endovascular [employer] after undergoing elective outpatient diagnostic angiogram to [...] King Monteiro MD Neuro Critical Care Pager [phone] 09/03/2020 8:58 AM Associated attestation - Jerica Sapp MD - 09/03/2020 3:11 PM EDT Neuro critical care Case discussed with resident physician / JD including pertinent history and exam findings with theresident. I have reviewed medications, clinical laboratory, imaging and other diagnostic tests withthe residents. I have seen and examined the [...] examining patient, reviewing images and labs personally, andspeaking with team * Preethi Masters RN - 09/02/2020 11:00 PM EDT Pt continues to be restless, not keeping femstop in place. Femstop removed at this time. Right groin site is soft, clean, dry and intact with bruising noted. Pulses palpable. Continue to closely monitor. * Vashti Vann - 09/02/2020 3:54 PM EDT STAT ALTM started. Patient hooked with MRI/CT compatible electrodes * Suraj Peters MD - 09/02/2020 3:16 PM EDT Ever is a 79 YO F here [...] violent Suraj Peters MD PGY-3 Neurology Resident [address] [facility] [place] [address] documented in this [facility] Phone: 1(827) 508-447007-27-2021 Hospital Discharge instructions* Instructions* King Monteiro MD - 09/03/2020 Images from [...] The doctor inserted a thin, flexible tube (catheter)into a blood vessel in your groin. Or the doctor may have put the catheter in a blood vessel in your arm. Then he or she injected a dye into the catheter. The dye flows into the blood vessel. The dyemade the blood vessels show up on a [...] not bend your wrist deeply for the firstcouple of days. Be careful using your hand to get into and out of a chair or bed. If your doctor recommends it, get more exercise. Walking is a good choice. Bit by bit, increase theamount you walk every day. Try for at [...] fruits, vegetables, and whole grains. If you needhelp with your diet, talk to your doctor. You also may want to talk to a dietitian. This expert canhelp you to learn about healthy foods and [...] your doctor if you can take an xomh-ahd-kfstqlc medicine. Care of the catheter site For [...] swelling goes down. Put a thin cloth betweenthe ice and your skin. You may shower [...] a good idea to know your test resultsand keep a list of the medicines you [...] in your face, arm, or leg, especially ononly one side of your body. ? Sudden [...] Where can you learn more? Go to [email or web address] and sign in to your Healthrageous account. Enter O249 in the Search Health Information box to learn more about Brain Angiogram: What to Expect at Home. If you do not have an account, please click on the Sign Up Now link. Current as of: December 13, 2019 Content Version: 12.9 [employer]. Care instructions adapted under license by [facility]. If you have questions about a medical condition or this instruction, always ask your healthcare professional. [employer], [facility] disclaims any warranty or liability for your use of this information. Learning About Thrombolytic Treatment for Stroke What is thrombolytic treatment? Thrombolytics are medicines that dissolve blood clots. Most strokes are caused by a blood clot. This kind of stroke is called an ischemic (say obg-DJV-kcsm ) stroke. For an ischemic stroke, this medicine can dissolve the clot quickly and help blood to flow in a normal way again. This can help limit damage to the brain. The medicine is given through a vein in your hand or arm. It travels through the bloodstream to theclot. This treatment is most often done in [...] may be mild or severe. It may beshort-term or lifelong. Thrombolytic treatment can improve recovery [...] and complex decisions. Feeling afraid or anxious canmake it even harder to think clearly. Your [...] a good idea to know your test resultsand keep a list of the medicines you take. Where can you learn more? Go to [email or web address] and sign in to your Healthrageous account. Enter E575 in the Search Health Information box to learn more about Learning About Thrombolytic Treatment for Stroke. If you do not have an account, please click on the Sign Up Now link. Current as of: October 09, 2019 Content Version: 12.9 [employer]ador. Care instructions adapted under license by [employer]. If you have questions about a medical condition or this instruction, always ask your healthcare professional. [employer] disclaims any warranty or liability for your use of this information. documented in this [facility] Phone: 1(817) 117-572607-27-2021 Hospital Discharge instructions* Instructions* Chandrika Duran RN - 09/03/2020 Images from the original note were not included. Brain Angiogram: What to Expect at Home Your Recovery A brain angiogram (cerebral angiogram) is a test (also called a procedure) that looks for problems with blood vessels and blood flow in the brain. The doctor inserted a thin, flexible tube (catheter)into a blood vessel in your groin. Or the doctor may have put the catheter in a blood vessel in your arm. Then he or she injected a dye into the catheter. The dye flows into the blood vessel. The dyemade the blood vessels show up on a [...] not bend your wrist deeply for the firstcouple of days. Be careful using your hand to get into and out of a chair or bed. If your doctor recommends it, get more exercise. Walking is a good choice. Bit by bit, increase theamount you walk every day. Try for at [...] fruits, vegetables, and whole grains. If you needhelp with your diet, talk to your doctor. You also may want to talk to a dietitian. This expert canhelp you to learn about healthy foods and [...] your doctor if you can take an nzbn-gte-aoynpqn medicine. Care of the catheter site For [...] swelling goes down. Put a thin cloth betweenthe ice and your skin. You may shower [...] a good idea to know your test resultsand keep a list of the medicines you [...] in your face, arm, or leg, especially ononly one side of your body. ? Sudden [...] Where can you learn more? Go to [email or web address] and sign in to your Healthrageous account. Enter O249 in the Search Health Information box to learn more about Brain Angiogram: What to Expect at Home. If you do not have an account, please click on the Sign Up Now link. Current as of: December 13, 2019 Content Version: . Re[employer]ador. Care instructions adapted under license by [employer]. If you have questions about a medical condition or this instruction, always ask your healthcare professional. [employer] disclaims any warranty or liability for your use of this information. Learning About Thrombolytic Treatment for Stroke What is thrombolytic treatment? Thrombolytics are medicines that dissolve blood clots. Most strokes are caused by a blood clot. This kind of stroke is called an ischemic (say uxj-FRC-heyi ) stroke. For an ischemic stroke, this medicine can dissolve the clot quickly and help blood to flow in a normal way again. This can help limit damage to the brain. The medicine is given through a vein in your hand or arm. It travels through the bloodstream to theclot. This treatment is most often done in [...] may be mild or severe. It may beshort-term or lifelong. Thrombolytic treatment can improve recovery [...] and complex decisions. Feeling afraid or anxious canmake it even harder to think clearly. Your [...] a good idea to know your test resultsand keep a list of the medicines you take. Where can you learn more? Go to [email or web address] and sign in to your Healthrageous account. Enter E575 in the Search Health Information box to learn more about Learning About Thrombolytic Treatment for Stroke. If you do not have an account, please click on the Sign Up Now link. Current as of: October 09, 2019 Content Version: 12.9 Reclamador. Care instructions adapted under license by [employer]. If you have questions about a medical condition or this instruction, always ask your healthcare professional. [employer] disclaims any warranty or liability for your use of this information. documented in this encounterPlayDo Phone: [phone] History of Present illness Narrative* Marbella Hendrix RN - 09/02/2020 8:00 AM EDT Patient admitted, consent signed and questions answered. Patient ready for procedure. Call light toreach with side rails up 2 of 2.Family at bedside with patient. documented in this encounterPlayDo Phone: evaluation note* Diagnosis Nausea vomiting and diarrhea- Primary Nausea with vomiting Other complicated headache syndrome Dehydration documented in this encounter [employer] Phone: evaluation note* Diagnosis Altered mental status, unspecified altered mental status type- Primary Stroke-like symptoms Other symptoms involving nervous and musculoskeletal systems Received intravenous tissue plasminogen activator (tPA) in emergency department documented in this encounter [employer] Phone: evaluation note* Diagnosis Cerebral aneurysm Cerebral aneurysm, nonruptured TGA (transient global amnesia) Transient global amnesia documented in this encounter [employer]Do Phone: evalfeppuc note* Diagnosis Left leg swelling documented in this encounter PlayDo Phone: evaluation note* Diagnosis Dysarthria- Primary Acute cystitis without hematuria Acute cystitis documented in this encounter [employer] Phone: evalvygvew note* Diagnosis Breast cancer screening by mammogram documented in this encounter [facility] [employer]dy Phone: evalriogph note* Diagnosis Pain Generalized pain Swelling Edema documented in this encounter [employer] Phone: evaltxtygv note* Diagnosis Elevated blood pressure reading- Primary Elevated blood pressure reading without diagnosis of hypertension documented in this encounter [facility] [employer] Phone: evaluation note* Diagnosis Strain of lumbar region, initial encounter- Primary documented in this encounter [facility] Catch[employer]! note* Diagnosis Somatic dysfunction of lumbar region Nonallopathic lesion of lumbar region, not elsewhere classified Lumbar radiculopathy Thoracic or lumbosacral neuritis or radiculitis, unspecified documented in this encounter [facility] [employer] note* Diagnosis Altered mental status, unspecified altered mental status type- Primary Abnormal CT scan Other nonspecific (abnormal) findings on radiological and other examinations of body structure Urinary tract infection without hematuria, site unspecified documented in this encounter [facility] [employer] note* Diagnosis Complicated UTI (urinary tract infection)- Primary Urinary tract infection, site not specified Transient alteration of awareness Right ear pain Otalgia, unspecified Complicated UTI (urinary tract infection) Urinary tract infection, site not specified History of TIA (transient ischemic attack) Transient ischemic attack (TIA), and cerebral infarction without residual deficits Type 2 diabetes mellitus, without long-term current use of insulin (HCC) TGA (transient global amnesia) Transient global amnesia Hypertension Unspecified essential hypertension documented in this encounter [facility] [employer] 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 * Dehydration ([place]) * Nausea and Vomiting ([place]) 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) (HCC) Procedures Vascular duplex carotid bilateral Bryce Ruby MD [address] [place] [address] Phone: tel: fax: Referral IDStatusReasonStart DateExpiration DateVisits RequestedVisits [id number]/21/20258/ [facility] Reason for Referral StatusReasonSpecialtyDiagnoses / ProceduresReferred By ContactReferred To ContactOpenEKG Diagnoses TIA (transient ischemic attack) Procedures Mcfp Continuous Cardiac Event Monitor Eunice Guerra, FLATWORK FOLDER - AUDIO SPECIALIST [address] [place] [address] [facility] [address] [place] [address] StatusReasonSpecialtyDiagnoses / ProceduresReferred By ContactReferred To ContactClosedRadiology Diagnoses Cerebral aneurysm Procedures IR ANGIOGRAM CAROTID CEREBRAL BILATERAL Xiomara Lomax MD [address] [place] [address] SpecialtyDiagnoses / ProceduresReferred By ContactReferred To ContactRadiology Diagnoses Left leg swelling Procedures VL DUP LOWER EXTREMITY VENOUS LEFT Alissa Marx MD [address] [place] [address] [place] [address] Referral IDStatusReasonStart DateExpiration DateVisits RequestedVisits [id number] / Procedures Referred By ContactReferred To Contact Diagnoses Dysarthria Procedures Echo 2d w doppler w color w contrast Allie Burris MD [address] [place] [address] Referral IDStatusReasonStart DateExpiration DateVisits RequestedVisits [id number] / Procedures Referred By ContactReferred To ContactRadiology Diagnoses Breast cancer screening by mammogram Procedures ALMA ESME DIGITAL SCREEN SELF REFERRAL W OR WO CAD BILATERAL Richie Ramos, DO [address] [place] [address] Referral IDStatusReasonStart DateExpiration DateVisits RequestedVisits [id number] / Procedures Referred By ContactReferred To ContactRadiology Diagnoses Somatic dysfunction of lumbar region Lumbar radiculopathy Procedures CT LUMBAR SPINE WO CONTRAST Sharath Garcia DC [address] [place] [address] Referral IDStatusReasonStart DateExpiration DateVisits RequestedVisits [id number] Required - RTA/ Hospital Course * Eunice Guerra APRN - AUDIO SPECIALIST - 04/19/2020 12:00 PM EST Discharge Summary [...] 04/17/2020 2d Echo Ltd Result Date: 04/18/2020 [facility] Transthoracic Echocardiography Report (TTE) Patient Name SPENCER Date of Study 04/18/2020 EVER A Date of 1940 Gender Female Age 79 year(s) Race Room Number 0315 Height: 63 inch, 160.02 cm Corporate ID [id number] Weight: 163 pounds, 73.9 kg # Patient [id number] BSA: 1.77 m^2 BMI: 28.87 # kg/m^2 MR # [id number] Fiber Optic Assembly Worker Rylee Verma Interpreting Physician Alissa Marx Referring Nurse Practitioner Interpreting Referring Physician Alissa Marx Type of Study TTE procedure:2D Echocardiogram, Bubble Study. Procedure Date Date: 04/18/2020 Start: 02:58 PM Study Location: [facility] History / Tech. Comments: TIA, [...] Discharge Medications: Ever Palmer Home Medication Instructions ANITA:[id number] Printed on:04/19/20 1208 Medication Information amLODIPine (NORVASC) 5 MG tablet [...] Follow up: Patient will be followed by Richie Ramos DO in 1-2 weeks, Dr. Marx 2 weeks CORE MEASURES on Discharge (if applicable) ELIZABETH/ARB in CHF: NA Statin in [place]: NA ASA in [place]: NA Statin in CVA: NA Antiplatelet in CVA: NA Total time spent on discharge services: 35 minutes Including the following activities: Evaluation and Management of patient Discussion with patient and/or surrogate about current care plan Coordination with Case Management and/or Tile Layer Helper Coordination of care with Consultants (if applicable) Coordination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 Provider: Caitlyn Larson RN - Reason: Other - Comment: pt lethargic) * 2016 (Given - Provider: Vickie Byrne RN) * 2100 (Due) busPIRone (BUSPAR) tablet 15 mg 15 mg, Oral, 2 TIMES DAILY, First dose on Wed09/02/20 at 2000, This 15 mg tablet can be split into thirds (5 mg) or halves (7.5 mg) based on the ordered dose. * 2025 (Not Given - Provider: Caitlyn Larson RN - Reason: Other - Comment: pt lethargic) * 0858 (Given - Provider: Tia Madrid, RN) * 2016 (Given - Provider: Vickie Byrne RN) * 09 (Given - Provider: Yordy Andrea RN) * 1999 (Due) clopidogrel (PLAVIX) tablet 75 mg 75 mg, Oral, DAILY, First dose on Wed09/03/20 at 0900 * 1408 (Held by provider - Provider: Dwight Jackson RN - Reason: Other) * 0900 (Automatically Held) * 1551 (Unheld by provider - Provider: King Monteiro MD) * 0925 (Given - Provider: Yordy Andrea RN) gabapentin (NEURONTIN) capsule 100 mg 100 mg, Oral, NIGHTLY, First dose on Wed09/02/20 at 2100 * 2026 (Not Given - Provider: Caitlyn Larson RN - Reason: Other - Comment: pt lethargic) * 2016 (Given - Provider: Vickie Byrne RN) * 2099 (Due) haloperidol lactate (HALDOL) injection 5 mg 5 mg, Intramuscular, ONCE, On Wed09/02/20 at 2215, For 1 dose, IM route of administration preferred. Because of the risk of TdP and QT prolongation, ECG monitoring is recommended if haloperidol is given IV. * 0157 (Not Given - Provider: Caitlyn Larson RN - Reason: Patient/family refused - Comment: Pt assessment changed - no need for medication) lactulose (CHRONULAC) 10 GM/15ML solution 10 g (CANCELED) 10 g, Oral, 2 TIMES DAILY, First dose on Wed09/02/20 at 1500 * 1620 (Not Given - Provider: Dwight Jackson RN - Reason: Other) * 0858 (Given - Provider: Tia Madrid, RAMONE) levETIRAcetam (KEPPRA) 1000 mg/100 mL IVPB (COMPLETED) 1,000 mg, Intravenous, ONCE, 1 dose, On Wed09/02/20 at 1630 * 1600 (New Bag - Provider: Dwight Jackson, RN) * 1816 (Stopped - Provider: Dwight Jackson, RN) losartan (COZAAR) tablet 50 mg 50 mg, Oral, 2 TIMES DAILY, First dose on Wed09/02/20 at 1430 * 1408 (Held by provider - Provider: Dwight Jackson RN - Reason: Other) * 1430 (Automatically Held) * 2100 (Automatically Held) * 0900 (Automatically Held) * 2100 (Automatically Held) * 0900 (Automatically Held) * 2100 (Automatically Held) sodium chloride flush 0.9 % [...] Midline or Central Line = 20 mL/lumen * 2026 (Given - Provider: Caitlyn Larson RN) * 09 (Not Given - Provider: Tia Madrid RN - Reason: IV Fluid Infusing) * 2020 (Given - Provider: Vickie Byrne RN) * 09 (Given - Provider: Yordy Andrea RN) * 2100 (Due) sodium chloride flush 0.9 % injection [...] Midline or Central Line = 20 mL/lumen * 2026 (Given - Provider: Caitlyn Larson, RAMONE) * 0910 (Not Given - Provider: Tia Madrid RN - Reason: IV Fluid Infusing) Medication Order/// 0.9 % sodium chloride infusion 25 mL, [...] on Wed09/02/20 at 1220, For 1 dose * 1228 (Given - Provider: Kelley Sosa) labetalol [...] Nausea, Vomiting, Starting on Wed09/02/20 at 1408, Administerif oral route cannot be used. ondansetron (ZOFRAN-ODT) [...] line use, Starting on Wed09/02/20 at 1408, ForLine Patency: Peripheral IV = 5 mL; Midline or Central Line = 10 mL/lumen. If following IV push medication, administer flush at same rate as the IV push. Flush volume is determined by type of infusion therapy being given. For non-viscous solutions use: Peripheral IV = 5 mL Midline or Central Line =10 mL/lumen For viscous solutions (i.e. blood components, parenteral nutrition, contrast media, or after obtaining blood sample) use: Peripheral IV = 10 mL Midline or Central Line = 20 mL/lumen Order Group 1: ondansetron (ZOFRAN-ODT) disintegrating tablet 4 mgJump to med 4 mg, Oral, EVERY 8 HOURS PRN, Nausea, Vomiting, Starting on Wed09/02/20 at 1408 Or ondansetron (ZOFRAN) injection 4 mgJump to med 4 mg, Intravenous, EVERY 6 HOURS PRN, Nausea, Vomiting, Starting on Wed09/02/20 at 1408
Administer if oral route cannot be used.
Medication Order// aspirin chewable tablet 81 mg (COMPLETED) 81 mg, Oral, ONCE, 1 dose, On Wed10/05/21 at 1630 * 1650 (Given - Provider: Arianna Turner, RAMONE) nitrofurantoin (macrocrystal-monohydrate) (MACROBID) capsule 100 mg (COMPLETED) 100 mg, Oral, NOW, 1 dose, On Wed10/05/21 at 1800, Antimicrobial Indications: Urinary Tract Infection * 1752 (Given - Provider: Arianna Turner, RAMONE) Medication Order// iopamidol (ISOVUE-370) 76 % injection 75 mL (COMPLETED) 75 mL, IntraVENous, IMG ONCE PRN, 1 dose, Starting on Wed10/05/21 at 1534, Until Wed10/05/21 at 1537, Other * 1537 (Given - Provider: Preethi Gamble) Medication Order// amLODIPine (NORVASC) tablet 5 mg (COMPLETED) 5 mg, Oral, ONCE, 1 dose, On Wed10/21/21 at 1700 * 1711 (Given - Provider: Sara Mckyo, RAMONE) Medication Order/ HYDROcodone-acetaminophen (NORCO) 5-325 MG per tablet 2 tablet (COMPLETED) 2 tablet, Oral, ONCE, 1 dose, On Wed01/21/24 at 1545, Maximum dose of acetaminophen is 4000 mg from all sources in 24 hours. * 1559 (Given - Provider: Ivonne Nash, RAMONE) Medication Order// cefTRIAXone (ROCEPHIN) 1,000 mg in sterile water 10 mL IV syringe (COMPLETED) 1,000 mg, IntraVENous, ONCE, On Wed03/26/24 at 1830, For 1 dose, Administer as slow IV Push over 5 mins Reconstitute 1 g vials with 9.6 mL of designated diluent to produce a 100 mg/mL solution. * 1827 (Given - Provider: Mary Luther RN) Medication Order// iopamidol (ISOVUE-370) 76 % injection 75 mL (COMPLETED) 75 mL, IntraVENous, IMG ONCE PRN, 1 dose, Starting on Wed03/26/24 at 1451, Until Wed03/26/24 at 1452, Other * 1452 (Given - Provider: Jeniffer Aden) Medication Order//07/2024 aspirin EC tablet 81 mg 81 mg, Oral, DAILY, First dose on Wed07/12/24 at 0900, Until Discontinued * 0945 (Given - Provider: FABIAN Evans) * 0926 (Given - Provider: Corrine West) * 0811 (Given - Provider: Corrine West) atorvastatin (LIPITOR) tablet 40 mg 40 mg, Oral, NIGHTLY, First dose on Wed07/12/24 at 2100, Until Discontinued * 2100 (Given - Provider: Ariella Amaral RN) * 1930 (Given - Provider: Ariella Amaral RN) * 2099 (Due) baclofen (LIORESAL) tablet 10 mg 10 mg, Oral, NIGHTLY, First dose on Wed07/12/24 at 2100, Until Discontinued * 2100 (Given - Provider: Ariella Amaral RN) * 1930 (Given - Provider: Ariella Amaral RN) * 2099 (Due) calcium gluconate 2,000 mg in sodium chloride 100 mL (COMPLETED) 2,000 mg, IntraVENous, at 50 mL/hr, Administer over 120 Minutes, ONCE, On Wed07/12/24 at 0700, For 1dose * 711 (New Bag - Provider: FABIAN Evans) * 904 (Stopped - Provider: FABIAN Evans) cefTRIAXone (ROCEPHIN) 1,000 mg in sterile water 10 mL IV syringe (CANCELED) 1,000 mg, IntraVENous, EVERY 24 HOURS, First dose on Wed07/12/24 at 2300, For 4 days, Administer as slow IV Push over 5 mins Reconstitute 1 g vials with 9.6 mL of designated diluent to produce a 100 mg/mL solution. * 2203 (Given - Provider: Ariella Amaral RN) * 2202 (Given - Provider: Ariella Amaral RN) cephALEXin (KEFLEX) capsule 500 mg 500 mg, Oral, EVERY 6 HOURS SCHEDULED (4 times per day), First dose on Wed07/14/24 at 0600, Until Discontinued, Antimicrobial Indications: Urinary Tract Infection, UTI duration of therapy: 7 days * 0640 (Given - Provider: Corrine West) * 1150 (Given - Provider: Corrine West) * 1800 (Due) enoxaparin (LOVENOX) injection 40 mg 40 mg, SubCUTAneous, DAILY, First dose on Wed07/12/24 at 0900, Until Discontinued, Indication of Use: Prophylaxis-DVT/PE * 44 (Given - Provider: FABIAN Evans) * 0926 (Given - Provider: Corrine West) * 0811 (Given - Provider: Corrine West) lactulose (CHRONULAC) 10 GM/15ML solution 10 g 10 g, Oral, 2 TIMES DAILY, First dose on Wed07/12/24 at 0200, Until Discontinued, Dilute packet according to directions on package. * 204 (Not Given - Provider: Sara Sigala RN - Reason: Patient/family refused - Comment: Will start tomorrow) * 944 (Not Given - Provider: FABIAN Evans - Reason: Patient/family refused) * 2103 (Not Given - Provider: Ariella Amaral RN - Reason: Patient/family refused - Comment: says it makes her sick to her stomach) * 925 (Not Given - Provider: Corrine West - Reason: Patient/family refused) * 1933 (Not Given - Provider: Ariella Amaral RN - Reason: Patient/family refused - Comment: PT says makes stoach upset) * 811 (Not Given - Provider: Corrine West - Reason: Patient/family refused) * 2099 (Due) metFORMIN (GLUCOPHAGE) tablet 500 mg 500 mg, Oral, NIGHTLY, First dose on Wed07/12/24 at 2100, Until Discontinued * 2100 (Given - Provider: Ariella Amaral RN) * 1930 (Given - Provider: Ariella Amaral RN) * 2099 (Due) montelukast (SINGULAIR) tablet 10 mg 10 mg, Oral, NIGHTLY, First dose on Wed07/12/24 at 2100, Until Discontinued * 2100 (Given - Provider: Ariella Amaral RN) * 1930 (Given - Provider: Ariella Amaral RN) * 2099 (Due) rOPINIRole (REQUIP) tablet 0.5 mg 0.5 mg, Oral, DAILY, First dose on Wed07/12/24 at 0200, Until Discontinued * 205 (Not Given - Provider: Sara Sigala RN - Reason: Patient/family refused - Comment: Will start tomorrow) * 2100 (Given - Provider: Ariella Amaral RN) * 2202 (Given - Provider: Ariella Amaral RN) * 2199 (Due) sodium chloride 0.9 % bolus 500 mL (COMPLETED) 500 mL (6.13 mL/kg), IntraVENous, at 247.9 mL/hr, Administer over 121 Minutes, ONCE, On Wed07/12/24 at 0015, For 1 dose * 0013 (New Bag - Provider: Corrine Kumar RN) * 0203 (Stopped - Provider: Sara Sigala, RN) sodium chloride flush 0.9 % injection 5-40 mL 5-40 mL, IntraVENous, EVERY 12 HOURS SCHEDULED (2 times per day), First dose on Wed07/12/24 at 0900,Until Discontinued, For Line Patency: Peripheral IV = [...] Midline or Central Line = 20 mL/lumen * 0945 (Not Given - Provider: FABIAN Evans - Reason: IV Fluid Infusing) * 2103 (Given - Provider: Ariella Amaral RN) * 0928 (Not Given - Provider: Corrine West - Reason: IV Fluid Infusing) * 2208 (Given - Provider: Ariella Amaral RN) * 0812 (Given - Provider: Corrine West) * 2100 (Due) spironolactone (ALDACTONE) tablet 50 mg 50 mg, Oral, DAILY, First dose on Wed07/12/24 at 0900, Until Discontinued * 0945 (Given - Provider: FABIAN Evans) * 0926 (Given - Provider: Corrine West) * 0811 (Given - Provider: Corrine West) Medication Order07/12///07/2024 0.9 % sodium chloride infusion (CANCELED) IntraVENous, at 75 mL/hr, CONTINUOUS, Starting on Wed07/12/24 at 0200 * 0204 (New Bag - Provider: Sara Sigala, RAMONE) * 0946 (Rate/Dose Verify - Provider: FABIAN Evans) * 1154 (Paused - Provider: Erika Macdonald RN) * 1202 (Paused - Provider: Erika Macdonald, RAMONE) * 1202 (Paused - Provider: Erika Macdonald RN) * 1202 (Paused - Provider: Erika Macdonald RN) * 1202 (Paused - Provider: Erika Macdonald, RAMONE) * 1205 (Paused - Provider: Erika Macdonald RN) * 1205 (Paused - Provider: Erika Macdonald, RAMONE) * 1206 (Paused - Provider: Erika Macdonald, RAMONE) * 1206 (Restarted - Provider: Erika Macdonald RN) * 1208 (Stopped - Provider: Erika Macdonald RN) * 1208 (New Bag - Provider: Addi Norton RN) * 1728 (Rate/Dose Verify - Provider: Erika Macdonald RN) * 1904 (Paused - Provider: Corrine West) * 1916 (Paused - Provider: Corrine West) * 1916 (Restarted - Provider: Corrine West) * 0020 (Rate/Dose Change - Provider: Corrine West) * 0022 (Rate/Dose Change - Provider: Corrine West) * 0123 (Rate/Dose Change - Provider: Corrine West) * 0127 (Stopped - Provider: Corrine West) * 0127 (New Bag - Provider: Sailaja Palma RN) * 1118 (Rate/Dose Verify - Provider: Corrine West) * 1422 (Rate/Dose Verify - Provider: Corrine West) * 1546 (New Bag - Provider: Corrine West) * 0415 (New Bag - Provider: Ariella Amaral RN) * 0642 (Stopped - Provider: Corrine West) Medication Order07/12///07/2024 0.9 % sodium chloride infusion IntraVENous, at [...] For temp greater than 100.4 F (38 C),Administer if oral route cannot be used. * 0216 (See Alternative - Provider: Sara Sigala RN) * 0329 (See Alternative - Provider: Ariella Amaral RN) * 09 (See Alternative - Provider: Corrine West) * 1930 (See Alternative - Provider: Ariella Amaral RN) * 0814 (See Alternative - Provider: Corrine West) acetaminophen (TYLENOL) tablet 650 mg(Linked Group 1) 650 mg, Oral, EVERY 6 HOURS PRN, Starting on Wed07/12/24 at 0141, Until Discontinued, Pain Mild (1-3), allowed for higher pain score per patient request, Fever, For temp greater than 100.4 F (38 C), Maximum dose of acetaminophen is 4000 mg from all sources in 24 hours. * 0216 (Given - Provider: Sara Sigala RN) * 0329 (Given - Provider: Ariella Amaral RN) * 926 (Given - Provider: Corrine West) * 1930 (Given - Provider: Ariella Amaral RN) * 0814 (Given - Provider: Corrine West) ondansetron [...] Wed07/12/24 at 0141, Until Discontinued, Constipation, First linetherapy for constipation sodium chloride flush 0.9 % injection 5-40 mL 5-40 mL, IntraVENous, PRN, Starting on Wed07/12/24 at 0141, Until Discontinued, Line Care, After every IV line use, For Line Patency: Peripheral IV = 5 mL; Midline or Central Line = 10 mL/lumen. If following IV push medication, administer flush at same rate as the IV push. Flush volume is determinedby type of infusion therapy being given. For non-viscous solutions use: Peripheral IV = 5 mL Midline or Central Line = 10 mL/lumen For viscous solutions (i.e. blood components, parenteral nutrition, contrast media, or after obtaining blood sample) use: Peripheral IV = 10 mL Midline or Central Line = 20 mL/lumen Order Group 1: acetaminophen (TYLENOL) tablet 650 [...] For temp greater than 100.4 F (38 C),Administer if oral route cannot be used. Group 2: ondansetron (ZOFRAN-ODT) disintegrating tablet 4 mgJump to med 4 mg, Oral, EVERY 8 HOURS PRN, Starting on Wed07/12/24 at 0141, Until Discontinued, Nausea, Vomiting Or ondansetron (ZOFRAN) injection 4 mgJump to med 4 mg, IntraVENous, EVERY 6 HOURS PRN, Starting on Wed07/12/24 at 0141, Until Discontinued, Nausea, Vomiting, Administer if oral route cannot be used. Medication Order/ HYDROcodone-acetaminophen (NORCO) 5-325 MG per tablet 1 tablet (COMPLETED) 1 tablet, Oral, ONCE, 1 dose, On Wed08/18/24 at 0200, Maximum dose of acetaminophen is 4000 mg fromall sources in 24 hours. * 0201 (Given - Provider: Nicole Ambriz RN) Medication Order/ iopamidol (ISOVUE-370) 76 % injection 75 mL (COMPLETED) 75 mL, IntraVENous, IMG ONCE PRN, 1 dose, Starting on Wed08/18/24 at 0200, Until Wed08/18/24 at 0216, Other * 0216 (Given - Provider: Preethi Gamble) Care Teams (unrecognized sec tion and content) Team MemberRelationshipSpecialtyStart DateEnd Date Richie Ramos, DO [address] [place] [id number] PCP - General06/05/12Team MemberRelationshipSpecialtyStart DateEnd Date Richie Ramos, DO [address] [place] [phone] PCP - General06/05/12Team MemberRelationshipSpecialtyStart DateEnd Date Richie Ramos, DO [address] [place] [phone] PCP - General06/05/12Team MemberRelationshipSpecialtyStart DateEnd Date Richie Ramos, DO [address] [place] [phone] PCP - General06/05/12Team MemberRelationshipSpecialtyStart DateEnd Date Richie Ramos, DO [address] [place] [phone] PCP - General06/05/12Team MemberRelationshipSpecialtyStart DateEnd Date Richie Ramos, DO [address] [place] [phone] PCP - General06/05/12Team MemberRelationshipSpecialtyStart DateEnd Date Richie Ramos, DO [address] [place] [phone] PCP - General06/05/12Team MemberRelationshipSpecialtyStart DateEnd Date Richie Ramos, DO [address] [place] [phone] PCP - General06/05/12Team MemberRelationshipSpecialtyStart DateEnd Date Richie Ramos, DO [facility] [place] [address] PCP - General06/05/12Team MemberRelationshipSpecialtyStart DateEnd Date Richie Ramos DO [address] [place] [phone] PCP - General06/05/12Team MemberRelationshipSpecialtyStart DateEnd Date Richie Ramos, DO [address] [place] [phone] PCP - General06/05/12Team MemberRelationshipSpecialtyStart DateEnd Date Richie Ramos, DO [address] [place] [phone] PCP - General06/05/12Team MemberRelationshipSpecialtyStart DateEnd Date Richie Ramos DO [address] [place] [phone] PCP - General06/05/12Team MemberRelationshipSpecialtyStart DateEnd Date Richie Ramos, DO [address] [place] [phone] PCP - General06/05/12Team MemberRelationshipSpecialtyStart DateEnd Date Richie Ramos, DO [address] [place] [phone] PCP - General06/05/12Team MemberRelationshipSpecialtyStart DateEnd Date Richie Ramos, DO [facility] [place] [address] PCP - General06/05/12Team MemberRelationshipSpecialtyStart DateEnd Date Richie Ramos, DO [address] [place] [phone] PCP - General06/05/12Team MemberRelationshipSpecialtyStart DateEnd Date Richie Ramos, DO [address] [place] [phone] PCP - General06/05/12Team MemberRelationshipSpecialtyStart DateEnd Date Richie Ramos, DO [address] [place] [phone] PCP - General06/05/12Team MemberRelationshipSpecialtyStart DateEnd Date Richie Ramos, DO [address] [place] [phone] PCP - General06/05/12Team MemberRelationshipSpecialtyStart DateEnd Date Richie Ramos, DO [address] [place] [phone] PCP - General06/05/12Team MemberRelationshipSpecialtyStart DateEnd Date Richie Ramos, DO [address] [place] [phone] PCP - General06/05/12Team MemberRelationshipSpecialtyStart DateEnd Date Richie Ramos, DO [address] [place] [phone] PCP - General06/05/12Team MemberRelationshipSpecialtyStart DateEnd Date Richie Ramos, DO [address] [place] [address] PCP - General06/05/12Te MemberRelationshipSpecialtyStart DateEnd Date Richie Ramos, DO [address] [place] [address] [facility] - General06/05/12Te MemberRelationshipSpecialtyStart DateEnd Date Richie Ramos, DO [address] [place] [address] [facility] - General06/05/12Te MemberRelationshipSpecialtyStart DateEnd Date Richie Ramos, DO [address] [place] [phone] [facility] - General06/05/12Te MemberRelationshipSpecialtyStart DateEnd Date Richie Ramos, DO [address] [place] [phone] [facility] General06/05/12 INFORMATION SOURCE (unrecogn ized section and content) DATE CREATED AUTHOR 03/04/2021 [facility] DATE CREATED AUTHOR AUTHOR'S ORGANIZ ATION 10/07/2024 [facility] DATE CREATED AUTHOR AUTHOR'S ORGANIZ ATION 11/30/2024 [facility] FOR RECORDS PERTAINING TO PATIENTS [...] BE BASED ON THE PRIMARY CLINICAL RECORDS. [facility] opendorse [facility]. provides no warranty or guarantee of the accuracy or completeness of information in this document.
[2025-01-01 10:16] VITALS: BP 149/75; PULSE 61; TEMP 36.5; O2SAT 100
[2025-01-01 10:56] VITALS: BP 121/59; BP 125/60; PULSE 66; PULSE 68; O2SAT 100; O2SAT 99
[2025-01-01] MEDS: LIDOCAINE HCL 2% 400 MG/20 ML MDV 15 ML INJ (11:01)
[2025-01-01] MEDS: DEXAMETHASONE SOD PHOS 10 MG/ML VIAL INJ (11:02)
[2025-01-01] MEDS: BUPIVACAINE HCL 0.25% PF 25 MG/10 ML VIAL 5 ML INJ (11:02)
--- NOTE | 2025-01-01 11:07 | P.ON_ITS ---
Date of procedure: 01/01/25 Pre-op diagnosis: Pain due to thoracic spondylosis without myelopathy Post-op diagnosis: same as pre-op Procedure: Procedure: Right T9-10, 10-11 radiofrequency ablation Medications: Bupivacaine 0.25% 2cc, lidocaine 2% 3cc, dexamethasone 10mg The patient was seen and examined in the preoperative holding area.? The site was marked.? Written informed consent was obtained and placed on the chart.? The patient was brought to the medical procedure unit and placed in the prone position.? A timeout was completed verifying correct patient, procedure, positioning, and special requirements.? The skin overlying the target points, the designated medial branch, was prepped and draped in the usual sterile fashion.? The target point was achieved with a 20-gauge 15 cm with a 10 mm curved active tip radiofrequency cannula under direct fluoroscopic visualizat ion.? The needle was inserted at level T9 on the right side. Needle tip position was confirmed with lateral fluoroscopic position.? Motor stimulation was carried out at 2 Hz up to 5 volts with the absence of extremity activity.? This was repeated at level T10, 11 on right side.?? Sensory stimulation was carried out.? Concordant pain was realized at the above- mentioned sites.? Then radiofrequency lesioning was carried out times 90 seconds at 80 degrees times 2 lesions at each level.? The radiofrequency probe was removed prior to cannula removal.? The above-mentioned injectate was placed in 1 mL increments.? The needle was removed.? Insertion sites were covered.? The patient was taken to the postoperative recovery area and monitored for an appropriate length of time before being found suitable for discharge in the company of a responsible adult. Anesthesia: Local Surgeon: Tahir Sparrow Pathology: none sent Condition: stable Disposition: no change
== END 2025-01-01 11:17 | disposition home or self-care (01) ==
PROVIDERS: Family Provider Internal Medicine; PCP Internal Medicine; Visit Provider Anesthesiology
DX: M47.814 Spondylosis without myelopathy or radiculopathy, thoracic region (principal); M54.6 Pain in thoracic spine; G89.29 Other chronic pain
CPT/HCPCS: 64633; 64634; J0665; J1100

== ENCOUNTER 2025-01-22 10:05 | Day surgery (SDC) | payer MEDICARE, SELFPAY ==
[2025-01-22 10:38] VITALS: BP 158/72; PULSE 60; TEMP 36.3; O2SAT 99
[2025-01-22 11:17] VITALS: BP 147/76; PULSE 70; O2SAT 94
[2025-01-22 11:18] VITALS: BP 156/70; PULSE 70; O2SAT 95
[2025-01-22] MEDS: DEXAMETHASONE SOD PHOS 10 MG/ML VIAL INJ (11:21)
[2025-01-22] MEDS: BUPIVACAINE HCL 0.25% PF 25 MG/10 ML VIAL 2 ML INJ (11:21)
[2025-01-22] MEDS: LIDOCAINE HCL 2% 400 MG/20 ML MDV 8 ML INJ (11:21)
--- NOTE | 2025-01-22 11:27 | P.ON_ITS ---
Date of procedure: 01/22/25 Pre-op diagnosis: Pain due to thoracic spondylosis without myelopathy Post-op diagnosis: same as pre-op Procedure: Procedure: Left t9-10, 10-11 radiofrequency ablation Medications: Bupivacaine 0.25% 2cc, dexamethasone 10mg, lidocaine 2% 5cc The patient was seen and examined in the preoperative holding area.? The site was marked.? Written informed consent was obtained and placed on the chart.? The patient was brought to the medical procedure unit and placed in the prone position.? A timeout was completed verifying correct patient, procedure, positioning, and special requirements.? The skin overlying the target points, the designated medial branch, was prepped and draped in the usual sterile fashion.? The target point was achieved with a 20-gauge 15 cm with a 10 mm curved active tip radiofrequency cannula under direct fluoroscopic visualizati on.? The needle was inserted at level T9 on the left side. Needle tip position was confirmed with lateral fluoroscopic position.? Motor stimulation was carried out at 2 Hz up to 5 volts with the absence of extremity activity.? This was repeated at level T10, 11 on left side.?? Sensory stimulation was carried out.? Concordant pain was realized at the above- mentioned sites.? Then radiofrequency lesioning was carried out times 90 seconds at 80 degrees times 2 lesions at each level.? The radiofrequency probe was removed prior to cannula removal.? The above-mentioned injectate was placed in 1 mL increments.? The needle was removed.? Insertion sites were covered.? The patient was taken to the postoperative recovery area and monitored for an appropriate length of time before being found suitable for discharge in the company of a responsible adult. Anesthesia: Local Surgeon: Tahir Sparrow Pathology: none sent Condition: stable Disposition: no change
== END 2025-01-22 11:36 | disposition home or self-care (01) ==
PROVIDERS: Family Provider Internal Medicine; PCP Internal Medicine; Visit Provider Anesthesiology
DX: M47.814 Spondylosis without myelopathy or radiculopathy, thoracic region (principal); G89.29 Other chronic pain
CPT/HCPCS: 64633; 64634; J0665; J1100